=== PATIENT | female | born 1975 | race African-American/Black ===

== ENCOUNTER 2019-09-10 15:39 | Observation (INO) | payer MEDICARE, OTHER ==
[~2019-09-10] VITALS: Ht 170.2 cm; Wt 105.7 kg
[2019-09-10] MEDS ORDERED: ONDANSETRON HCL INJ 2MG/ML 2ML 2 MG/ML VIAL IV NR (17:00)
[2019-09-10] MEDS ORDERED: MORPHINE SULFATE 2 MG/ML SYR 1ML IV NR (17:00)
--- NOTE | 2019-09-10 17:13 | Emergency Department Note ---
History of Present Illnes History of Present Illness Chief Complaint: Extremity Trauma/Pain History of Present Illness This is a 43 year old female c/o weakness then mechanical fall tripped over threshold going outside, pt reports falling on L knee, hit patella on concrete. Pt reports missed dialysis yesterday, c/o mild SOB Historian: Patient, [place] Chief/EMS Arrival Mode: [facility] Treatment CHIEF CLINICAL DIETITIAN: O2 Onset (how long ago): hour(s) (1) Location: left knee Quality: pain Radiation: non-radiation Severity: severe Onset quality: sudden Timing of current episode: constant Progression: unchanged Chronicity: new Context: recent illness Relieving factors: none Exacerbating factors: movement Associated symptoms: denies other symptoms, shortness of breath (mild) Treatments prior to arrival: none (STEFF KEN MD) Past Medical/Family History Physician Review I have reviewed the patient's past medical and family history. Any updates have been documented here. (STEFF KEN MD) Past Medical History Recent Fever: No Clinical Suspicion of Infectio: No New/Unexplained Change in Ment: No Past Medical History: Hypertension, ESRD Other Medical History: neuropathy Past Surgical History: Cholecysctectomy, , Hernia Repair Other Surgery: R BKA amputation (STEFF KEN MD) Social History Smoking Cessation: Never Smoker Counseling Performed: No Alcohol Use: None Any Illegal Drug Use: No TB Exposure/Symptoms: No Physically hurt or threatened: No (STEFF KEN MD) Family History Family history of heart diseas: No (STEFF KEN MD) Other Any Pre-Existing Lines (PICC,: No (STEFF KEN MD) Review of Systems Review of Systems Constitutional: no symptoms EENTM: no symptoms Cardiovascular: no symptoms Respiratory: dyspnea (mild) Gastrointestinal: no symptoms Genitourinary: no symptoms Musculoskeletal: joint pain (left knee, left ankle) Neurological: no symptoms Psychological: no symptoms Endocrine: no symptoms Hematological/Lymphatic: no symptoms Review of other systems All other systems reviewed and negative. (STEFF KEN MD) Physical Exam Related Data Allergies: Coded Allergies: acetaminophen (Verified Allergy, Unknown, 09/10/19) ondansetron (Verified Allergy, Unknown, 09/10/19) tramadol (Verified Allergy, Unknown, 09/10/19) Triage Vital Signs Vital Signs Date Time Temp Pulse Resp B/P (MAP) Pulse Ox O2 Delivery O2 Flow Rate FiO2 09/10/19 15:52 98.5 102 20 180/94 97 (STEFF KEN MD) Physical Exam CONSTITUTIONAL Constitutional: well-developed, well-nourished HENT HENT: normocephalic, atraumatic, oropharynx clear/moist, nose normal HENT L/R: left ext ear normal, right ext ear normal EYES Eyes: PERRL, conjunctivae normal NECK Neck: ROM normal PULMONARY Pulmonary: effort normal, rales (mild bibasilar) CARDIOVASCULAR Cardiovascular: regular rhythm, heart sounds normal, capillary refill normal, normal rate GASTROINTESTINAL Abdominal: soft, nontender, bowel sounds normal GENITOURINARY Genitourinary: exam deferred SKIN Skin: warm, dry MUSCULOSKELETAL Musculoskeletal: tenderness (severe left knee), swelling (mild left knee) NEUROLOGICAL Neurological: alert, oriented x 3, no gross motor or sensory deficits PSYCHOLOGICAL Psychological: mood/affect normal, judgement normal (STEFF KEN MD) Results Laboratory Lab results reviewed: Yes Laboratory comments Laboratory Tests Test 09/10/19 18:33 09/10/19 18:14 Prothrombin Time 13.3 seconds (11.9-14.5) Prothromb Time International Ratio 0.96 Activated Partial Thromboplast Time 30.9 seconds (23.8-35.5) White Blood Count 9.93 x10e3/uL (4.8-10.8) Red Blood Count 2.94 x10e6/uL (3.6-5.1) Hemoglobin 9.3 g/dL (12.0-16.0) Hematocrit 30.2 % (34.2-44.1) Mean Corpuscular Volume 102.7 fL (81-99) Mean Corpuscular Hemoglobin 31.6 pg (28-32) Mean Corpuscular Hemoglobin Concent 30.8 g/dL (31-35) Red Cell Distribution Width 16.8 % (11.7-14.4) Platelet Count 326 x10e3/uL (140-360) Neutrophils (%) (Auto) 67.0 % (38.7-80.0) Lymphocytes (%) (Auto) 22.6 % (18.0-39.1) Monocytes (%) (Auto) 6.3 % (4.4-11.3) Eosinophils (%) (Auto) 3.1 % (0.0-6.0) Basophils (%) (Auto) 0.6 % (0.0-1.0) Neutrophils # (Auto) 6.7 (2.1-6.9) Lymphocytes # (Auto) 2.2 (1.0-3.2) Monocytes # (Auto) 0.6 (0.2-0.8) Eosinophils # (Auto) 0.3 (0.0-0.4) Basophils # (Auto) 0.1 (0.0-0.1) Absolute Immature Granulocyte (auto 0.04 x10e3/uL (0-0.1) (STEFF KEN MD) Imaging Imaging results reviewed: Yes Impressions Exam: Tibia/fibula views History: Weakness, status post fall, lower leg pain Comparison: None. Findings: There is normal bone mineralization. No acute, displaced fracture or dislocation. Minimal degenerative changes left knee. Vascular calcifications are noted. No soft tissue swelling. Impression: 1. No acute abnormalities. Signed by: Dr. Gibson Mcgill M.D. on 09/10/2019 5:41 PM Exam: Left Knee Series. History: Weakness, status post fall Comparison: None. Findings: 3 views of the left knee. There is normal bone mineralization. Negative for acute, displaced fracture or dislocation. Minimal degenerative changes in the left knee, with presence of small marginal patellar osteophytes. Vascular calcifications. Small to moderate suprapatellar effusion Impression: 1. Small to moderate suprapatellar effusion. No underlying acute bony abnormality. Signed by: Dr. Gibson Mcgill M.D. on 09/10/2019 5:42 PM Examination: Single AP view of the chest. COMPARISON: None. INDICATION: Weakness, status post fall IMPRESSION: 1. Lines and Tubes: None 2. Lungs are well-inflated. Minimal perihilar interstitial prominence, likely reflecting minimal interstitial edema/fluid overload. Minimal linear atelectatic changes in the left base. No consolidation or effusion. 3. Enlarged cardiac silhouette. Central pulmonary venous congestion. 4. No acute bony abnormalities. Signed by: Dr. Gibson Mcgill M.D. on 09/10/2019 5:44 PM Exam: Left Ankle Series. History: Weakness, status post fall Comparison: None. DISCUSSION: 3 views of the left ankle. There is normal bone mineralization. No evidence of acute, displaced fracture or dislocation. Ankle mortise is preserved.No osteochondral lesion. Vascular calcifications. Moderate soft tissue swelling surrounding the ankle. IMPRESSION: 1. Moderate soft tissue swelling in the ankle, without underlying acute bony abnormality. 2. Vascular calcifications The staff physician below has personally reviewed this exam on the date of dictation. Signed by: Dr. Gibson Mcgill M.D. on 09/10/2019 5:43 PM (STEFF KEN MD) Diagnostics Tests Diagnostic test(s) reviewed: Yes (STEFF KEN MD) Procedures 12 Lead ECG Interpretation Fire Equipment Inspector Helper: Interpreted by ED physician Date: September 10, 2019 Time: 16:49 Prior CUSTOMER CONTACT REPRESENTATIVE tracings: reviewed Rhythm: sinus rhythm Rate: normal (99) QRS axis: normal ST segments normal: Yes T wave depression: I, aVL Other findings: early repolarization, LVH with strain Clinical Impression: abnormal ECG (STEFF KEN MD) Critical Care Time Subsequent provider I assumed direction of critical care for this patient from another provider of my specialty. (STEFF KEN MD) Assessment & Plan Reassessment Reassessment Pt re-evaluated after sign out obtained from Dr. Ken. Pt's K noted to be 6.2- calcium gluconate, bicarb and Kayexalate given. Pt requires urgent dialysis- Dr. Joy consulted- stat dialysis ordered Pt admitted to Dr. Joshi's service for observation. (SIMBA MAYERS, DO) Assessment & Plan Final Impression: (1) Fall (2) Knee contusion (3) ESRD (end stage renal disease) on dialysis (4) Hyperkalemia Assessment & Plan ADMIT (STEFF KEN MD) Depart Disposition: ADMITTED Last Vital Signs Date Time Temp Pulse Resp B/P (MAP) Pulse Ox O2 Delivery O2 Flow Rate FiO2 09/10/19 15:52 98.5 102 20 180/94 97 (STEFF KEN MD) Medications in the ED Morphine Sulfate 4 mg ONCE IV ; Start 09/10/19 at 17:00; Stop 09/10/19 at 18:59; Status UNV Ondansetron HCl 4 mg ONCE STAT IV ; Start 09/10/19 at 16:32; Stop 09/10/19 at 16:33; Status UNV (STEFF KEN MD) Physician Attestation Provider Attestation REPORT TO ONCOMING ER MD, DR MAYERS, WHO ASSUMED CARE. CHEMISTRIES STILL PENDING, UA, AND UDS (STEFF KEN MD) STEFF KEN MD September 10, 2019 17:12 SIMBA MAYERS DO September 10, 2019 19:59
--- NOTE | 2019-09-10 17:44 | Diagnostic Imaging Report ---
Exam: Tibia/fibula views History: Weakness, status post fall, lower leg pain Comparison: None. Findings: There is normal bone mineralization. No acute, displaced fracture or dislocation. Minimal degenerative changes left knee. Vascular calcifications are noted. No soft tissue swelling. Impression: 1. No acute abnormalities. Signed by: Dr. Gibson Mcgill M.D. on 09/10/2019 5:41 PM
--- NOTE | 2019-09-10 17:46 | Diagnostic Imaging Report ---
Exam: Left Knee Series. History: Weakness, status post fall Comparison: None. Findings: 3 views of the left knee. There is normal bone mineralization. Negative for acute, displaced fracture or dislocation. Minimal degenerative changes in the left knee, with presence of small marginal patellar osteophytes. Vascular calcifications. Small to moderate suprapatellar effusion Impression: 1. Small to moderate suprapatellar effusion. No underlying acute bony abnormality. Signed by: Dr. Gibson Mcgill M.D. on 09/10/2019 5:42 PM
--- NOTE | 2019-09-10 17:47 | Diagnostic Imaging Report ---
Exam: Left Ankle Series. History: Weakness, status post fall Comparison: None. DISCUSSION: 3 views of the left ankle. There is normal bone mineralization. No evidence of acute, displaced fracture or dislocation. Ankle mortise is preserved.No osteochondral lesion. Vascular calcifications. Moderate soft tissue swelling surrounding the ankle. IMPRESSION: 1. Moderate soft tissue swelling in the ankle, without underlying acute bony abnormality. 2. Vascular calcifications The staff physician below has personally reviewed this exam on the date of dictation. Signed by: Dr. Gibson Mcgill M.D. on 09/10/2019 5:43 PM
--- NOTE | 2019-09-10 17:48 | Diagnostic Imaging Report ---
Examination: Single AP view of the chest. COMPARISON: None. INDICATION: Weakness, status post fall IMPRESSION: 1. Lines and Tubes: None 2. Lungs are well-inflated. Minimal perihilar interstitial prominence, likely reflecting minimal interstitial edema/fluid overload. Minimal linear atelectatic changes in the left base. No consolidation or effusion. 3. Enlarged cardiac silhouette. Central pulmonary venous congestion. 4. No acute bony abnormalities. Signed by: Dr. Gibson Mcgill M.D. on 09/10/2019 5:44 PM
[2019-09-10 18:25] LABS: BASOPHILS # (AUTO) 0.1 (0.0-0.1); BASOPHILS % 0.6 % (0.0-1.0); EOSINOPHILS # (AUTO) 0.3 (0.0-0.4); EOSINOPHILS % 3.1 % (0.0-6.0); HEMATOCRIT 30.2 % (34.2-44.1); HEMOGLOBIN 9.3 g/dL (12.0-16.0); LYMPHOCYTES # (AUTO) 2.2 (1.0-3.2); LYMPHOCYTES % 22.6 % (18.0-39.1); MEAN CORPUSCULAR HEMOGLOBIN 31.6 pg (28-32); MEAN CORPUSCULAR HGB CONC 30.8 g/dL (31-35); MEAN CORPUSCULAR VOLUME 102.7 fL (81-99); MONOCYTES # (AUTO) 0.6 (0.2-0.8); MONOCYTES % 6.3 % (4.4-11.3); NEUTROPHILS # (AUTO) 6.7 (2.1-6.9); PLATELET COUNT 326 x10e3/uL (140-360); RED BLOOD COUNT 2.94 x10e6/uL (3.6-5.1); RED CELL DISTRIBUTION WIDTH 16.8 % (11.7-14.4)
[2019-09-10] MEDS ORDERED: PROMETHAZINE 12.5MG/ NACL 0.9% 12.5 MG/50 ML BAG IV ONE (18:45)
[2019-09-10] MEDS ORDERED: HYDRALAZINE HCL 20 MG/ML VIAL IV NR (18:45)
[2019-09-10] MEDS ORDERED: KETOROLAC TROMETHAMINE 30 MG/ML VIAL IV NR (18:46)
[2019-09-10] MEDS ORDERED: HYDRALAZINE HCL 20 MG/ML VIAL ONE (18:56)
[2019-09-10 18:58] LABS: INR 0.96; PROTHROMBIN TIME 13.3 seconds (11.9-14.5)
[2019-09-10 18:59] LABS: PARTIAL THROMBOPLASTIN TIME 30.9 seconds (23.8-35.5)
[2019-09-10 19:06] LABS: ALBUMIN 3.5 g/dL (3.5-5.0); ALBUMIN/GLOBULIN RATIO 0.8 (0.8-2.0); ANION GAP 23.2 mmol/L (8-16); CALCIUM 9.7 mg/dL (8.4-10.2); CREATININE, SERUM 12.84 mg/dL (0.57-1.11)
[2019-09-10 19:12] LABS: CREATINE KINASE MB 2.8 ng/mL (0-5.0); POTASSIUM 6.2 mmol/L (3.5-5.1)
--- NOTE | 2019-09-10 19:12 | NUR ---
Critical value given to Dr. Tsai, potassium level is 6.2.
[2019-09-10 19:13] LABS: BILIRUBIN,URINE NEGATIVE (NEGATIVE); CLARITY,URINE SL CLOUDY (CLEAR); COLOR,URINE YELLOW (YELLOW); KETONES,URINE NEGATIVE (NEGATIVE); LEUKOCYTE ESTERASE ,URINE TRACE (NEGATIVE); NITRITE,URINE NEGATIVE (NEGATIVE); PROTEIN,URINE DIPSTICK >=300 (NEGATIVE); URINE UROBILINOGEN 0.2 mg/dL (0.2 - 1)
[2019-09-10 19:14] LABS: AMPHETAMINES SCREEN,URINE NEGATIVE (NEGATIVE); BENZODIAZEPINES SCREEN,URINE NEGATIVE (NEGATIVE); PHENCYCLIDINE SCREEN,URINE NEGATIVE (NEGATIVE)
--- NOTE | 2019-09-10 19:16 | NUR ---
Nursing report given to Aleksandr ZAMORA.
[2019-09-10] MEDS ORDERED: DEXTROSE 50% SYRINGE 50 ML IV STA (19:21)
[2019-09-10 19:24] LABS: BACTERIA,URINE MANY /HPF; EPITHELIAL CELLS,URINE MANY /LPF; TRANSITIONAL EPI CELLS,URINE MODERATE
[2019-09-10] MEDS ORDERED: SODIUM BICARBONATE 8.4% 50 ML VIAL IV NR (19:30)
[2019-09-10] MEDS ORDERED: INSULIN REGULAR, HUMAN 100 UNIT/1 ML 3ML VIAL IV NR (19:30)
[2019-09-10] MEDS ORDERED: CALCIUM GLUCONATE 10% INJ 4.65 MEQ in SODIUM CHLORIDE 0.9% 50ML 50 ML IV ONE (19:30)
[2019-09-10] MEDS ORDERED: SODIUM BICARBONATE 8.4% INJ 50 ML SYR IV NR (19:45)
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
--- OUTSIDE RECORDS SUMMARY | 2019-09-10 20:01 | XMS REPORT | Clinical Summary ---
Author Author [facility] Organization [facility] Address Unknown Phone Unavailable Care Team Providers Care Storyboard Artist Name Role Phone Asked, No Pcp PCP Unavailable Allergies Comments Active Allergy Reactions Severity Noted Date No Known Allergies 03/02/2015 VOMITTING ACCORDING TP PATIENT Hydrocodone-Acetaminophen Other (See Medium 08/22 Comments) Medications End Date Status Medication Sig Dispensed Refills Start Date Active carvedilol (COREG) 25 MG Take 25 mg by 0 tablet mouth 2 (two) times a day with meals. Active FLUoxetine (PROzac) 20 MG Take 20 mg by 0 capsule mouth daily. Active furosemide (LASIX) 80 mg Take 80 mg by 0 tablet mouth 2 (two) times a day. Active hydrALAZINE (APRESOLINE) Take 50 mg by 0 50 MG tablet mouth 3 (three) times a day. Hold if SBP < 100 Active lisinopril Take 40 mg by 0 (PRINIVIL,ZESTRIL) 40 mg mouth daily. tablet Active metoclopramide (REGLAN) Take 10 mg by 0 10 MG tablet mouth 3 (three) times a day before meals. Active pantoprazole (PROTONIX) Take 40 mg by 0 40 MG EC tablet mouth daily. Active apixaban (ELIQUIS) 5 mg Take 5 mg by 0 tablet mouth 2 (two) times a day. Active gabapentin (NEURONTIN) Take 200 mg 0 100 mg capsule by mouth 3 (three) times a day as needed. Active famotidine (PEPCID) 20 MG Take 20 mg by 0 tablet mouth 2 (two) times a day. Active HYDROcodone-acetaminophen Take 1 tablet 0 (NORCO) 10-325 mg per by mouth tablet every 6 (six) hours as needed for moderate pain. Active Problems Problem Noted Date Acute respiratory distress 10/07/2017 ESRD (end stage renal disease) 06/20/2017 Hypertensive emergency 04/18/2017 HTN (hypertension), malignant 03/30/2017 Leukocytosis 03/27/2017 Fever 03/27/2017 ESRD on hemodialysis 03/27/2017 Gastroparesis 03/27/2017 Hx of BKA, right 03/27/2017 Chronic diastolic congestive heart failure 7 Chest pain 03/27/2017 Type 2 diabetes mellitus 03/27/2017 Acute respiratory insufficiency 03/27/2017 Overview: hypoxemic Abdominal pain 03/18/2017 Calculus of gallbladder without cholecystitis without obstruction 02/26/2017 Heart failure with preserved left ventricular functio n (HFpEF) 02/26/2017 Overview: Diastolic heart failure diagnosed by ec hocardiogram on 01/25/2017 Noncompliance with medication regimen 02/26/2017 Mixed hyperlipidemia 02/26/2017 Normocytic anemia 02/26/2017 Periumbilical hernia 02/26/2017 Prolonged Q-T interval on ECG 02/26/2017 Diabetic nephropathy associated with type 2 diabetes mellitus 02/26/2017 Hx of right BKA 02/26/2017 CKD (chronic kidney disease) stage 4, GFR 15-29 ml/mi n 02/26/2017 Class 2 obesity due to excess calories with serious c omorbidity in adult 02/25/2017 Gastroparesis due to DM 02/21/2017 Hypertensive urgency 02/21/2017 End stage renal disease 02/06/2017 Overview: Added automatically from request for katy gaston [id number] Respiratory distress 01/25/2017 Essential hypertension 10/28/2016 Diabetic foot infection 10/28/2016 Generalized abdominal pain 10/28/2016 ALDO (acute kidney injury) 07/23/2016 Homelessness 03/02/2015 Overview: Overview: resident at [facility] 03/02/2015 Social History Date Tobacco Use Types Packs/Day Years Used Never Smoker Smokeless Tobacco: Never Used Drinks/Week oz/Week Comments Alcohol Use No Sex Assigned at Date Recorded Not on file Industry Job Start Date Occupation Not on file Not on file Not on file Travel End Travel History Travel Start No recent travel history available. Last Filed Vital Signs Not on file Plan of Treatment Health Maintenance Due Date Last Done Comments DIABETIC RETINAL EYE EXAM 1973 DIABETIC FOOT EXAM 10/15/1983 CERVICAL CANCER SCREENING 1994 INFLUENZA VACCINE 11/23/2019 Implants Device Identifier Shelf Expiration Date Model / Serial / L ot Implanted Type Area Manufactur er 10/21/2018 [id number] / / [id number] Catheter Dialysis Glidepath Implantabl N/A: N/A BA RD [id number] Symmetric Tip - e Infusion PERIPHERAL [id number] Ports or VASCULAR Implanted: 01/27/2017 at [facility] (Quantity not on file) s 10/21/2018 [id number] / / [id number] Catheter Dialysis Glidepath Implantabl N/A: N/A RD [id number] Symmetric Tip - e Infusion PERIPHERAL [id number] Ports or VASCULAR Implanted: 03/31/2017 at [facility] (Quantity not on file) s 01/01/2022 [id number] / / [id number] Clip Ligtng Weck Hemoclip Plus W/ Medical Left: Arm, WECK Tape Ti Sm - [id number] Clips for Upper CLOSUR E Implanted: Qty: 1 on 07/18/2017 by Internal SYS Kenya Kirkland MD at [facility] Use 12/27/2021 [id number] / / [id number] Clip Ligtng Weck Hemoclip Plus W/ Medical Left: Arm, TELEFLEX Tape Ti Med - [id number] Clips for Upper MEDIC AL Implanted: Qty: 1 on 07/18/2017 by Internal Kenya Cho MD at [facility] Use Results Not on fileafter 09/09/2018 Insurance Type Payer Benefit Subscriber ID Effective Phone Address Plan / Dates Group Medicare MEDICARE MEDICARE xxxxxxxxxx 2017-P [place] B Medicaid MEDICAID MEDICAID xxxxxxxxx 2017- Present Guarantor Name Account Relation to Date of Phone Billin g Address Type Patient Meena Hernandez Personal/F Self [phone] amily (Home) [place] [address] Advance Directives For more information, please contact: [phone] Patient Health Promotion Educator Explanation Type Date Recorded Advance Directives, 02/25/2017 1:57 PM Living Will and Medical Power of Dough Sheeter Date Inactivated Comments Code Status Date Activated 09/09/2017 6:02 PM Full Code 09/04/2017 8:56 PM Code Status decision reached by: Patient 07/21/2017 6:01 PM Full Code 07/20/2017 4:17 PM Code Status decision reached by: Patient 03/29/2017 6:30 PM Full Code 03/27/2017 1:50 AM Code Status decision reached by: Patient
--- OUTSIDE RECORDS SUMMARY | 2019-09-10 20:01 | XMS REPORT | Clinical Summary ---
Author Author [facility] Address Unknown Phone Unavailable Care Team Providers Care Postbed Stitcher Name Role Phone PCP Unavailable Allergies Not on File Medications Not on file Active Problems Not on file Social History Date Tobacco Use Types Packs/Day Years Used Never Smoker Sex Assigned at Date Recorded Not on file Industry Job Start Date Occupation Not on file Not on file Not on file Travel End Travel History Travel Start No recent travel history available. Last Filed Vital Signs Not on file Plan of Treatment Not on file Results Not on fileafter 09/09/2018 Insurance Payer Benefit Subscriber ID Type Phone Address Plan / Group MEDICARE MEDICARE A xxxxxxxxxx Medicare B MEDICAID MEDICAID xxxxxxxxx Medicaid OF [place]
--- OUTSIDE RECORDS SUMMARY | 2019-09-10 20:09 | XMS REPORT | Summary of Care ---
Author Author [facility] Organization [facility] Address Unknown Phone Unavailable Encounter PRIMITIVO Mariano(SANGITA) [id number] Date(s): 10/10/16 - 10/12/16 [facility] [address] [employer] provided by [facility] [employer] [facility] [place] [address]- Discharge Disposition: Left Against Medical Advise Attending Physician: Richard Aguilar MD Admitting Physician: Kayla Pacheco MD Vital Signs 1 2 3 Most recent to oldest [Reference Range]: 97.5 DegF (10/12/16 7:45 AM) 97.4 DegF (10/12/16 4:15 AM) 97.5 DegF (10/12/16 12:10 AM) Temperature Oral [96.4-99.1 DegF] 161/80 mmHg *HI* (10/12/16 7:45 AM) 181/99 mmHg *HI* (10/12/16 5:00 AM) 162/83 mmHg *HI* (10/12/16 4:00 AM) Blood Pressure [90-140/60-90 mmHg] 18 BRMIN (10/12/16 7:45 AM) 16 BRMIN (10/12/16 5:00 AM) 17 BRMIN (10/12/16 4:00 AM) Respiratory Rate [14-20 BRMIN] 124 bpm *HI* (10/10/16 11:22 PM) Peripheral Pulse Rate [60-100 bpm] 109 kg (10/12/16 7:01 AM) Weight Problem List Condition Effective Dates Status Health Status Informan t Anxiety(Confirmed) Resolved CHF - Congestive 08/31/09 Active heart failure(Confirmed) Chronic Resolved depression(Confirmed ) CKD (chronic kidney 09/01/15 Resolved disease)(Confirmed) Diabetes Resolved mellitus(Confirmed) DM (diabetes 08/31/09 - 09/07/16 Resolved mellitus)(Confirmed) Escherichia 09/15/16 Active coli(Confirmed)1, 2 Biliary < 08/16/16 Resolved colic(Confirmed) Below knee Active amputation status(Confirmed)3 HTN - 08/31/09 - 09/07/16 Resolved Hypertension(Confirm ed) HLD Resolved (hyperlipidemia)(Con firmed) Hypertension(Confirm Resolved ed) Klebsiella(Confirmed 03/26/16 Active )4, 5 MRSA(Confirmed)6, 7, 02/23/16 Active 8 MRSA(Confirmed)9, 10 11/29/13 Active 1E.coli, 09/15/2016 2Problem added by Discern Expert. 3Right sided BKA 4Blood, 03/29/2016 5Problem added by Discern Expert. 6right foot aspirate - 02/23/16 7nares - 02/19/16 8Problem added by Discern Expert. 9Left buttock abscess, 11/29/2013 10Problem added by Discern Expert. Allergies, Adverse Reactions, Alerts Substance Reaction Severity Status NKDA Active Medications carvedilol 25 mg, 1 tab, Route: PO, Drug form: TAB, Q12H, Dosing Weight 109.545, kg, Start date: 10/11/16 21:00:00 CDT, Duration: 30 day, Stop date: 11/10/16 9:00:00 CDT Notes: Give with food. (Same As: Coreg) Start Date: 10/11/16 Stop Date: 10/12/16 Status: Discontinued cloNIDine 0.2 mg oral tablet 0.2 mg, 1 tab, Route: PO, Drug form: TAB, ONCE, Dosing Weight 109.545, kg, Prior ity: STAT, Start date: 10/11/16 4:35:00 CDT, Stop date: 10/11/16 4:35:00 CDT Notes: (Same As: Catapres) Start Date: 10/11/16 Stop Date: 10/11/16 Status: Completed Coreg 25 mg, 1 tab, Route: PO, Drug form: TAB, ONCE, Dosing Weight 109.545, kg, Start date: 10/11/16 7:23:00 CDT, Stop date: 10/11/16 7:23:00 CDT Notes: Give with food. (Same As: Coreg) Start Date: 10/11/16 Stop Date: 10/11/16 Status: Completed Coreg 25 mg, 1 tab, Route: PO, Drug form: TAB, ONCE, Dosing Weight 109.545, kg, Start date: 10/11/16 2:08:00 CDT, Stop date: 10/11/16 2:08:00 CDT Notes: Give with food. (Same As: Coreg) Start Date: 10/11/16 Stop Date: 10/11/16 Status: Completed Dextrose 50% Syringe 25 gm, 50 mL, Route: IVP, Drug Form: INJ, Dosing Weight 109.545, kg, PRN, PRN Bl ood Glucose Results, Start date: 10/11/16 9:37:00 CDT, Duration: 30 day, Stop da te: 11/10/16 9:36:00 CDT Start Date: 10/11/16 Stop Date: 10/12/16 Status: Discontinued Dextrose 50% Syringe 12.5 gm, 25 mL, Route: IVP, Drug Form: INJ, Dosing Weight 109.545, kg, PRN, PRN Blood Glucose Results, Start date: 10/11/16 9:37:00 CDT, Duration: 30 day, Stop date: 11/10/16 9:36:00 CDT Start Date: 10/11/16 Stop Date: 10/12/16 Status: Discontinued glucagon 1 mg, Route: IM, Drug form: PDR/INJ, PRN, Dosing Weight 109.545, kg, PRN Blood G lucose Results, Start date: 10/11/16 9:37:00 CDT, Duration: 30 day, Stop date: 0 11/10/16 9:36:00 CDT Start Date: 10/11/16 Stop Date: 10/12/16 Status: Discontinued Haldol 5 mg, 1 mL, Route: IV, Drug form: INJ, ONCE, Dosing Weight 109.545, kg, Priority : STAT, Start date: 10/11/16 0:09:00 CDT, Stop date: 10/11/16 0:09:00 CDT Notes: (Same as: Haldol) Start Date: 10/11/16 Stop Date: 10/11/16 Status: Completed Haldol 5 mg, Route: IV, ONCE, Dosing Weight 109.545, kg, Start date: 10/11/16 0:58:00 C DT, Stop date: 10/11/16 0:58:00 CDT Start Date: 10/11/16 Stop Date: 10/11/16 Status: Completed Haldol 5 mg, Route: IM, ONCE, Dosing Weight 109.545, kg, Priority: STAT, Start date: 0:57:00 CDT, Stop date: 10/11/16 0:57:00 CDT Start Date: 10/11/16 Stop Date: 10/11/16 Status: Discontinued heparin 5000 units/mL injectable solution 5,000 unit, 1 mL, Route: SUB-Q, Drug form: INJ, Q8H, Dosing Weight 109.545, kg, Start date: 10/12/16 0:00:00 CDT, Duration: 30 day, Stop date: 11/10/16 16:00:00 CDT Notes: porcine heparin Start Date: 10/12/16 Stop Date: 10/12/16 Status: Discontinued hydromorphone 1 mg, 0.5 mL, Route: IVP, Drug form: INJ, ONCE, Dosing Weight 109.545, kg, Prior ity: STAT, Start date: 10/11/16 1:58:00 CDT, Stop date: 10/11/16 1:58:00 CDT Notes: Same as: Dilaudid Start Date: 10/11/16 Stop Date: 10/11/16 Status: Completed Insulin regular 5 unit, 0.05 mL, Route: SUB-Q, Drug form: SOLN, Sliding Scale, Dosing Weight 109 .545, kg, PRN Blood Glucose Results, Start date: 10/11/16 12:48:00 CDT, Duration : 30 day, Stop date: 11/10/16 12:47:00 CDT Notes: (Same as: Humulin R) Roll in palms of hands gently; Do not shake vigorou sly. "single patient use only"(Restricted to patients requiring a dose > 60 units)WASTE: F/P - Black; E - Municipal Trash Bin Stable for 28 days at room temperatureExpires in days from Date Start Date: 10/11/16 Stop Date: 10/12/16 Status: Discontinued Insulin regular 2 unit, 0.02 mL, Route: SUB-Q, Drug form: SOLN, Sliding Scale, Dosing Weight 109 .545, kg, PRN Blood Glucose Results, Start date: 10/11/16 12:48:00 CDT, Duration : 30 day, Stop date: 11/10/16 12:47:00 CDT Notes: (Same as: Humulin R) Roll in palms of hands gently; Do not shake vigorou sly. "single patient use only"(Restricted to patients requiring a dose > 60 units)WASTE: F/P - Black; E - Municipal Trash Bin Stable for 28 days at room temperatureExpires in days from Date Start Date: 10/11/16 Stop Date: 10/12/16 Status: Discontinued Insulin regular 4 unit, 0.04 mL, Route: SUB-Q, Drug form: SOLN, Sliding Scale, Dosing Weight 109 .545, kg, PRN Blood Glucose Results, Start date: 10/11/16 12:48:00 CDT, Duration : 30 day, Stop date: 11/10/16 12:47:00 CDT Notes: (Same as: Humulin R) Roll in palms of hands gently; Do not shake vigorou sly. "single patient use only"(Restricted to patients requiring a dose > 60 units)WASTE: F/P - Black; E - Municipal Trash Bin Stable for 28 days at room temperatureExpires in days from Date Start Date: 10/11/16 Stop Date: 10/12/16 Status: Discontinued Insulin regular 1 unit, 0.01 mL, Route: SUB-Q, Drug form: SOLN, Sliding Scale, Dosing Weight 109 .545, kg, PRN Blood Glucose Results, Start date: 10/11/16 12:48:00 CDT, Duration : 30 day, Stop date: 11/10/16 12:47:00 CDT Notes: (Same as: Humulin R) Roll in palms of hands gently; Do not shake vigorou sly. "single patient use only"(Restricted to patients requiring a dose > 60 units)WASTE: F/P - Black; E - Municipal Trash Bin Stable for 28 days at room temperatureExpires in days from Date Start Date: 10/11/16 Stop Date: 10/12/16 Status: Discontinued Insulin regular 3 unit, 0.03 mL, Route: SUB-Q, Drug form: SOLN, Sliding Scale, Dosing Weight 109 .545, kg, PRN Blood Glucose Results, Start date: 10/11/16 12:48:00 CDT, Duration : 30 day, Stop date: 11/10/16 12:47:00 CDT Notes: (Same as: Humulin R) Roll in palms of hands gently; Do not shake vigorou sly. "single patient use only"(Restricted to patients requiring a dose > 60 units)WASTE: F/P - Black; E - Municipal Trash Bin Stable for 28 days at room temperatureExpires in days from Date Start Date: 10/11/16 Stop Date: 10/12/16 Status: Discontinued labetalol 10 mg, Route: IVP, Drug form: INJ, ONCE, Dosing Weight 109.545, kg, Start date: 10/11/16 1:57:00 CDT, Stop date: 10/11/16 1:57:00 CDT Start Date: 10/11/16 Stop Date: 10/11/16 Status: Discontinued labetalol 10 mg, 2 mL, Route: IVP, Drug form: INJ, ONCE, Dosing Weight 109.545, kg, Start date: 10/11/16 4:06:00 CDT, Stop date: 10/11/16 4:06:00 CDT Start Date: 10/11/16 Stop Date: 10/11/16 Status: Completed Lasix 20 mg oral tablet 20 mg, 1 tab, Route: PO, Drug form: TAB, BID, Dosing Weight 109.545, kg, Start d ate: 10/11/16 17:00:00 CDT, Duration: 30 day, Stop date: 11/10/16 9:00:00 CDT Notes: (Same as: Lasix) May cause GI upset. Give with food or milk. Start Date: 10/11/16 Stop Date: 10/12/16 Status: Discontinued Levemir 15 unit, SUB-Q, BID, 0 Refill(s) Start Date: 10/11/16 Stop Date: 10/14/16 Status: Discontinued morphine Sulfate 2 mg, 1 mL, Route: IVP, Drug form: INJ, ONCE, Dosing Weight 109, kg, Start date: 10/12/16 7:18:00 CDT, Stop date: 10/12/16 7:18:00 CDT Notes: (Same as:MORPhine Sulfate) Start Date: 10/12/16 Stop Date: 10/12/16 Status: Completed morphine Sulfate 4 mg, 1 mL, Route: IVP, Drug form: INJ, ONCE, Dosing Weight 109.545, kg, Priorit y: STAT, Start date: 10/10/16 23:36:00 CDT, Stop date: 10/10/16 23:36:00 CDT Notes: (Same as:MORPhine Sulfate) Start Date: 10/10/16 Stop Date: 10/11/16 Status: Completed morphine Sulfate 4 mg, 1 mL, Route: IVP, Drug form: INJ, ONCE, Dosing Weight 109.545, kg, Priorit y: STAT, Start date: 10/11/16 0:50:00 CDT, Stop date: 10/11/16 0:50:00 CDT Notes: (Same as:MORPhine Sulfate) Start Date: 10/11/16 Stop Date: 10/11/16 Status: Completed morphine Sulfate 2 mg, 1 mL, Route: IVP, Drug form: INJ, ONCE, Dosing Weight 109.545, kg, Start d ate: 10/11/16 16:02:00 CDT, Stop date: 10/11/16 16:02:00 CDT Notes: (Same as:MORPhine Sulfate) Start Date: 10/11/16 Stop Date: 10/11/16 Status: Completed niCARdipine 40 mg 40 mg, 200 mL, Rate: Titrate, Start Dose: 5 mg/hr, Titration: 2.5 mg/hr every 15 minutes, Goal(s): systolic <200, Max Dose: 15 mg/hr, Route: IV, Dosing Weight 109.545 kg, Total Volume: 200, Start date: 10/11/16 2:05:00 CDT, Duration: 30 day, Stop date... Start Date: 10/11/16 Stop Date: 10/11/16 Status: Discontinued NIFEdipine 90 mg oral tablet, extended release 90 mg, 1 tab, Route: PO, Drug form: ERTAB, ONCE, Dosing Weight 109.545, kg, Star t date: 10/11/16 2:09:00 CDT, Stop date: 10/11/16 2:09:00 CDT Notes: (Same as: Adalat CC,Procardia XL)"Do Not Crush" "Avoid grapefruit and gr apefruit juice" Start Date: 10/11/16 Stop Date: 10/11/16 Status: Completed NIFEdipine 90 mg oral tablet, extended release 90 mg, 1 tab, Route: PO, Drug form: ERTAB, Daily, Dosing Weight 109, kg, Start d ate: 10/12/16 7:44:00 CDT, Duration: 30 day, Stop date: 11/10/16 9:00:00 CDT Notes: (Same as: Adalat CC,Procardia XL)"Do Not Crush" "Avoid grapefruit and gr apefruit juice" Start Date: 10/12/16 Stop Date: 10/12/16 Status: Discontinued nitroglycerin 2% ointment 1 inch, Route: TOP, Drug Form: OINT, Dosing Weight 109.545, kg, ONCE, STAT, Star t date: 10/11/16 4:58:00 CDT, Stop date: 10/11/16 4:58:00 CDT Start Date: 10/11/16 Stop Date: 10/11/16 Status: Completed ondansetron 4 mg, 2 mL, Route: IVP, Drug form: INJ, ONCE, Dosing Weight 109.545, kg, Priorit y: STAT, Start date: 10/10/16 23:36:00 CDT, Stop date: 10/10/16 23:36:00 CDT Notes: (Same as: Simonean) MEDICATION WASTE Product Size: 4 mgProduct Was savana: 0 mg Start Date: 10/10/16 Stop Date: 10/11/16 Status: Completed Reglan 10 mg, 2 mL, Route: IVP, Drug form: INJ, ONCE, Dosing Weight 109.545, kg, Priori ty: STAT, Start date: 10/11/16 1:26:00 CDT, Stop date: 10/11/16 1:26:00 CDT Notes: (Same as: Reglan) Start Date: 10/11/16 Stop Date: 10/11/16 Status: Completed Saline Flush 0.9% 10 ml, Route: IVP, Drug Form: INJ, Dosing Weight 109.545, kg, PRN, PRN Line Flus h, Start date: 10/11/16 9:34:00 CDT, Duration: 30 day, Stop date: 11/10/16 9:33: 00 CDT Notes: (Same as: BD Posiflush) Start Date: 10/11/16 Stop Date: 10/12/16 Status: Discontinued sertraline 100 mg, 1 tab, Route: PO, Drug form: TAB, Daily, Dosing Weight 109.545, kg, Star t date: 10/12/16 9:00:00 CDT, Duration: 30 day, Stop date: 11/10/16 9:00:00 CDT Notes: (Same as: Zoloft) Start Date: 10/12/16 Stop Date: 10/12/16 Status: Discontinued Sodium Chloride 0.9% (Bolus) IV 1,000 mL, 1000 ml/hr, Infuse Over: 1 hr, Route: IV, 1,000, Drug form: INJ, ONCE, Priority: STAT, Dosing Weight 109.545 kg, Start date: 10/10/16 23:36:00 CDT, Du ration: 1 doses or times, Stop date: 10/10/16 23:36:00 CDT Start Date: 10/10/16 Stop Date: 10/11/16 Status: Completed sodium chloride 0.9% 1000 ml INJ 1,000 mL 1,000 mL, Rate: 75 ml/hr, Infuse over: 13.3 hr, Route: IV, Dosing Weight 109.545 kg, Total Volume: 1,000, Start date: 10/11/16 7:34:00 CDT, Duration: 30 day, St op date: 11/10/16 7:33:00 CDT Start Date: 10/11/16 Stop Date: 10/11/16 Status: Discontinued sodium chloride 0.9% 1000 ml INJ 3,000 mL 3,000 mL, Rate: 75 ml/hr, Infuse over: 40 hr, Route: IV, Dosing Weight 109.545 k g, Total Volume: 3,000, Start date: 10/11/16 14:49:00 CDT, Duration: 30 day, Sto p date: 11/10/16 14:48:00 CDT Start Date: 10/11/16 Stop Date: 10/12/16 Status: Discontinued tramadol 50 mg oral tablet 50 mg, 1 tab, Route: PO, Drug form: TAB, Q4H, Dosing Weight 109.545, kg, PRN Katherine n Score 1-3, Start date: 10/11/16 10:19:00 CDT, Duration: 30 day, Stop date: 10:18:00 CDT Notes: Not to exceed 400mg/day. (Same As: Ultram) Start Date: 10/11/16 Stop Date: 10/12/16 Status: Discontinued Tylenol with Codeine #3 oral tablet 1 tab, Route: PO, Drug Form: TAB, Dosing Weight 109, kg, Q4H, PRN Other -See Com ment, Start date: 10/12/16 9:13:00 CDT, Duration: 30 day, Stop date: 11/11/16 9: 12:00 CDT, Pain > 4/10 Notes: Do not exceed 4gm/day of acetaminophen. (Same as: Tylenol with Codeine # 3) Start Date: 10/12/16 Stop Date: 10/12/16 Status: Discontinued Results ELECTROLYTES 1 2 3 Most recent to oldest [Reference Range]: 147 mEq/L *HI* (10/12/16 3:09 AM) 145 mEq/L (10/11/16 8:09 AM) 142 mEq/L (10/10/16 11:37 PM) Sodium Lvl [135-145 mEq/L] 4.0 mEq/L (10/12/16 3:09 AM) 4.0 mEq/L (10/11/16 8:09 AM) 3.8 mEq/L (10/10/16 11:37 PM) Potassium Lvl [3.5-5.1 mEq/L] 120 mEq/L *HI* (10/12/16 3:09 AM) 116 mEq/L *HI* (10/11/16 8:09 AM) 111 mEq/L *HI* (10/10/16 11:37 PM) Chloride Lvl [95-109 mEq/L] 18 mEq/L *LOW* (10/12/16 3:09 AM) 22 mEq/L *LOW* (10/11/16 8:09 AM) 16 mEq/L *LOW* (10/10/16 11:37 PM) CO2 [24-32 mEq/L] 13.0 mEq/L (10/12/16 3:09 AM) 11.0 mEq/L (10/11/16 8:09 AM) 18.8 mEq/L (10/10/16 11:37 PM) AGAP [10.0-20.0 mEq/L] CHEM PANEL 1 2 3 Most recent to oldest [Reference Range]: 2.37 mg/dL *HI* (10/12/16 3:09 AM) 2.47 mg/dL *HI* (10/11/16 8:09 AM) 2.58 mg/dL *HI* (10/10/16 11:37 PM) Creatinine Lvl [0.50-1.40 mg/dL] 25 mL/min/1.73m2 1 *NA* (10/12/16 3:09 AM) 23 mL/min/1.73m2 2 *NA* (10/11/16 8:09 AM) 22 mL/min/1.73m2 3 *NA* (10/10/16 11:37 PM) eGFR 15 mg/dL (10/12/16 3:09 AM) 16 mg/dL (10/11/16 8:09 AM) 16 mg/dL (10/10/16 11:37 PM) BUN [7-22 mg/dL] 6 (10/12/16 3:09 AM) 6 (10/11/16 8:09 AM) B/C Ratio [6-25] 83 mg/dL (10/12/16 3:09 AM) 123 mg/dL *HI* (10/11/16 8:09 AM) 127 mg/dL *HI* (10/10/16 11:37 PM) Glucose Lvl [70-99 mg/dL] 4.9 g/dL *LOW* (10/12/16 3:09 AM) 5.0 g/dL *LOW* (10/11/16 8:09 AM) 7.3 g/dL (10/10/16 11:37 PM) Total Protein [6.4-8.4 g/dL] 1.3 g/dL *LOW* (10/12/16 3:09 AM) 1.4 g/dL *LOW* (10/11/16 8:09 AM) 2.0 g/dL *LOW* (10/10/16 11:37 PM) Albumin Lvl [3.5-5.0 g/dL] 3.6 g/dL (10/12/16 3:09 AM) 3.6 g/dL (10/11/16 8:09 AM) 5.3 g/dL *HI* (10/10/16 11:37 PM) Globulin [2.7-4.2 g/dL] 0.4 *LOW* (10/12/16 3:09 AM) 0.4 *LOW* (10/11/16 8:09 AM) 0.4 *LOW* (10/10/16 11:37 PM) A/G Ratio [0.7-1.6] 7.5 mg/dL *LOW* (10/12/16 3:09 AM) 7.2 mg/dL *LOW* (10/11/16 8:09 AM) 8.4 mg/dL *LOW* (10/10/16 11:37 PM) Calcium Lvl [8.5-10.5 mg/dL] 11 unit/L (10/12/16 3:09 AM) 9 unit/L (10/11/16 8:09 AM) 12 unit/L (10/10/16 11:37 PM) ALT [0-65 unit/L] 15 unit/L (10/12/16 3:09 AM) 11 unit/L (10/11/16 8:09 AM) 17 unit/L (10/10/16 11:37 PM) AST [0-37 unit/L] 88 unit/L (10/12/16 3:09 AM) 86 unit/L (10/11/16 8:09 AM) 123 unit/L (10/10/16 11:37 PM) Alk Phos [39-136 unit/L] <0.1 mg/dL *LOW* (10/12/16 3:09 AM) 0.2 mg/dL (10/11/16 8:09 AM) 0.2 mg/dL (10/10/16 11:37 PM) Bili Total [0.2-1.3 mg/dL] 0.1 mg/dL (10/10/16 11:37 PM) Bili Direct [0.0-0.3 mg/dL] 0.1 mg/dL (10/10/16 11:37 PM) Bili Indirect [0.0-1.0 mg/dL] 4 unit/L *LOW* (10/11/16 8:09 AM) Amylase Lvl [25-115 unit/L] 53 unit/L *LOW* (10/11/16 8:09 AM) 56 unit/L *LOW* (10/11/16 5:59 AM) 90 unit/L (10/10/16 11:37 PM) Lipase Lvl [73-393 unit/L] 1.1 mmol/L (10/10/16 11:37 PM) Lactic Acid WB [0.5-2.2 mmol/L] 1Result Comment: The eGFR is calculated using the CKD-EPI formula. In most young, healthy individuals the eGFR will be >90 mL/min/1.73m2. The eGFR declines with age. An eGFR of 60-89 may be normal in some populations, particularly the elderly, for whom the CKD-EPI formula has not been extensively validated. Use of the eGFR is not recommended in the following populations: Individuals with unstable creatinine concentrations, including patients and those with serious co-morbid conditions. Patients with extremes in muscle mass or diet. The data above are obtained from the National Kidney Disease Education Program ( NKDEP) which additionally recommends that when the eGFR is used in patients with extremes of body mass index for purposes of drug dosing, the eGFR should be mul tiplied by the estimated BMI. 2Result Comment: The eGFR is calculated using the CKD-EPI formula. In most young, healthy individuals the eGFR will be >90 mL/min/1.73m2. The eGFR declines with age. An eGFR of 60-89 may be normal in some populations, particularly the elderly, for whom the CKD-EPI formula has not been extensively validated. Use of the eGFR is not recommended in the following populations: Individuals with unstable creatinine concentrations, including patients and those with serious co-morbid conditions. Patients with extremes in muscle mass or diet. The data above are obtained from the National Kidney Disease Education Program ( NKDEP) which additionally recommends that when the eGFR is used in patients with extremes of body mass index for purposes of drug dosing, the eGFR should be mul tiplied by the estimated BMI. 3Result Comment: The eGFR is calculated using the CKD-EPI formula. In most young, healthy individuals the eGFR will be >90 mL/min/1.73m2. The eGFR declines with age. An eGFR of 60-89 may be normal in some populations, particularly the elderly, for whom the CKD-EPI formula has not been extensively validated. Use of the eGFR is not recommended in the following populations: Individuals with unstable creatinine concentrations, including patients and those with serious co-morbid conditions. Patients with extremes in muscle mass or diet. The data above are obtained from the National Kidney Disease Education Program ( NKDEP) which additionally recommends that when the eGFR is used in patients with extremes of body mass index for purposes of drug dosing, the eGFR should be mul tiplied by the estimated BMI. LIPIDS 1 2 3 Most recent to oldest [Reference Range]: 5.70 (10/11/16 8:09 AM) CHD Risk [3.90-5.80] 211 mg/dL *HI* (10/11/16 8:09 AM) Chol [<=199 mg/dL] 179 mg/dL *HI* (10/11/16 8:09 AM) Trig [<=149 mg/dL] 37 mg/dL *LOW* (10/11/16 8:09 AM) HDL [>=61 mg/dL] 138 mg/dL *HI* (10/11/16 8:09 AM) LDL (Calculated) [<=99 mg/dL] 36 *NA* (10/11/16 8:09 AM) VLDL ANEMIA STUDY 1 2 3 Most recent to oldest [Reference Range]: 177 ng/mL (10/11/16 8:09 AM) Ferritin Lvl [5-204 ng/mL] PARATHYROID PROFILE 1 2 3 Most recent to oldest [Reference Range]: 1.07 mMol/L (10/11/16 8:09 AM) Ca Ion WB [1.05-1.25 mMol/L] 1.06 mMol/L (10/11/16 8:09 AM) Ca Norm WB [1.05-1.25 mMol/L] HEMATOLOGY 1 2 3 Most recent to oldest [Reference Range]: 6.9 K/CMM (10/12/16 3:09 AM) 8.3 K/CMM (10/11/16 8:09 AM) 9.1 K/CMM (10/10/16 11:37 PM) WBC [3.7-10.4 K/CMM] 2.63 M/CMM *LOW* (10/12/16 3:09 AM) 2.48 M/CMM *LOW* (10/11/16 8:09 AM) 3.71 M/CMM *LOW* (10/10/16 11:37 PM) RBC [4.20-5.40 M/CMM] 7.4 g/dL *LOW* (10/12/16 3:09 AM) 8.4 g/dL *LOW* (10/11/16 10:21 AM) 7.0 g/dL 1 *CRIT* (10/11/16 8:09 AM) Hgb [12.0-16.0 g/dL] 22.9 % *LOW* (10/12/16 3:09 AM) 25.6 % *LOW* (10/11/16 10:21 AM) 21.5 % *LOW* (10/11/16 8:09 AM) Hct [36.0-48.0 %] 87.4 fL (10/12/16 3:09 AM) 86.6 fL (10/11/16 8:09 AM) 87.2 fL (10/10/16 11:37 PM) MCV [80.0-98.0 fL] 28.3 pg (10/12/16 3:09 AM) 28.2 pg (10/11/16 8:09 AM) 27.9 pg (10/10/16 11:37 PM) MCH [27.0-31.0 pg] 32.4 g/dL (10/12/16 3:09 AM) 32.6 g/dL (10/11/16 8:09 AM) 32.0 g/dL (10/10/16 11:37 PM) MCHC [32.0-36.0 g/dL] 14.3 % (10/12/16 3:09 AM) 14.4 % (10/11/16 8:09 AM) 14.7 % *HI* (10/10/16 11:37 PM) RDW [11.5-14.5 %] 325 K/CMM (10/12/16 3:09 AM) 355 K/CMM (10/11/16 8:09 AM) 455 K/CMM *HI* (10/10/16 11:37 PM) Platelet [133-450 K/CMM] 8.6 fL (10/12/16 3:09 AM) 8.4 fL (10/11/16 8:09 AM) 8.4 fL (10/10/16 11:37 PM) MPV [7.4-10.4 fL] 50.7 % (10/12/16 3:09 AM) 62.0 % (10/10/16 11:37 PM) Segs [45.0-75.0 %] 33.2 % (10/12/16 3:09 AM) 24.6 % (10/10/16 11:37 PM) Lymphocytes [20.0-40.0 %] 7.5 % (10/12/16 3:09 AM) 7.0 % (10/10/16 11:37 PM) Monocytes [2.0-12.0 %] 7.6 % *HI* (10/12/16 3:09 AM) 5.1 % *HI* (10/10/16 11:37 PM) Eosinophils [0.0-4.0 %] 1.0 % (10/12/16 3:09 AM) 1.3 % *HI* (10/10/16 11:37 PM) Basophils [0.0-1.0 %] 3.5 K/CMM (10/12/16 3:09 AM) 5.7 K/CMM (10/10/16 11:37 PM) Segs-Bands # [1.5-8.1 K/CMM] 2.3 K/CMM (10/12/16 3:09 AM) 2.2 K/CMM (10/10/16 11:37 PM) Lymphocytes # [1.0-5.5 K/CMM] 0.5 K/CMM (10/12/16 3:09 AM) 0.6 K/CMM (10/10/16 11:37 PM) Monocytes # [0.0-0.8 K/CMM] 0.5 K/CMM (10/12/16 3:09 AM) 0.5 K/CMM (10/10/16 11:37 PM) Eosinophils # [0.0-0.5 K/CMM] 0.1 K/CMM (10/12/16 3:09 AM) 0.1 K/CMM (10/10/16 11:37 PM) Basophils # [0.0-0.2 K/CMM] 86 mm/hr *HI* (10/11/16 8:09 AM) Sed Rate [0-20 mm/hr] 1Result Comment: Critical Result(s) called to Mi Davis at 10/11/2016 08:43 by tt. Read back OK. Immunizations Given and Recorded Vaccine Date Status Refusal Reason influenza virus vaccine, inactivated 01/08/16 G iven pneumococcal 23-valent vaccine 01/08/16 Given pneumococcal 23-valent vaccine 11/26/13 Given Procedures Procedure Date Related Diagnosis Body Site Amputation1 Amputation below-knee2 section3 section Cholecystectomy 12 toes in R foot 14/12/16 3x6 Social History Social History Type Response Substance Abuse Use: None. Exercise Exercise duration: 30. Exe rcise frequency: 1-2 times/week. Self assessment: Good condition. Exercise t ype: Walking. Alcohol Past, Type Wine. Frequency : 1-2 times per month. 12 Drinks/Episode average. 12.00 Drinks/Episode maximum. Last use: July. Started age 15 Years. Previous treatment: None. Alco hol use interferes with work or home: No. Drinks more than intended: N o. Others hurt by drinking: No. Ready to change: No. Household alcohol concerns: No. Smoking Status Never smoker; Previous ivette tment: None; Exposure to Tobacco Smoke None; Cigarette Smoking Last 365 Days No; Reg Smoking Cessation Counseling Yes Assessment and Plan Extracted from: Title: Infection Control Isolation Author: Zainab Restrepo Date: 10/12/16 Alert ISOLATION ALERT This patient has a history of infection/colonization with MRSA. Site Date Rt Foot Puqtdnjm99/01/2016 Isolation Required: CONTACT Before isolation precautions may be discontinued for this hospital visit, the following protocol must be followed and Infection Control should be notified: Patient must be off antibiotics for 72 hours or 7 days if on dialysis and vancomycin. Send one MRSA PCR nares specimen. Please place order for MRSA PCR. Do not order MRSA Culture. If MRSA PCR is negative, isolation may be discontinued. Patient can only be cleared from isolation for this visit. If readmitted, patient must be isolated and screened for MRSA again. Consult Infection Control for suggested regimens for decolonization of patients with MRSA as well as for any questions. We can be reached at [phone]. ISOLATION ALERT This patient has a history of infection/colonization with a multi-drug resistant organism. Organism Site Date MDR E.sdptBlpwt92/25/2017 MDR IytpsupfrxYrehf72/06/2016 Isolation Required: CONTACT Before isolation precautions may be discontinued, the following protocol must be followed and Infection Control should be notified: Organism Status Cultures Sites MRSA Off abx x 72hrs or 7 days if on dialysis and vancomycin x 2, 48 hrs apart Anterior nares, wounds, & any previous positive sites VRE Off abx x 72hrs or 7 days if on dialysis and renally-cleared drug active against patient's isolate x 2, 48 hrs apart Stool & any previous positive sites PCN-R or PCN-Intermediate Streptococcus pneumoniae 48 hrs of effective antibiotic and resol ution of clinical S/S of pulmonary involvement Multi-drug Resistant Gram Negative Bacteria (Defined as resistant to at least 1 drug in 3 of the 5 drug classes below) a. Cefepime or ceftazidime b. Pip/tazo or ticar/clav c. Gentamicin, amikacin or tobramycin d. Meropenem e. Ciprofloxacin or moxifloxacin Off abx x 72hrs or 7 days if on dialysis and aminoglycoside x2, 48 hrs apart Urine, stool, throat, & any previous positive sites Stenotrophomonas R to Trimethoprim-Sulfa Methoxazole (T/S) Off abx x 72hrs or 7 days if on dialysis and aminoglycoside x2, 48h apart Urine, stool, throat, & any previous positive sites Chryseobacterium meningosepticum (formerly Flavobacterium meningosepticum) and other Chryseobacterium spp. R to minocycline, rifampin, or vancomycin Off abx x 72hrs or 7 days if on dialysis and vancomycin x2, 48h apart Urine, stool, throat, & any previous positive sites Gram negative enterics: Salmonella, Shigella, etc. Off abx x 48 hrs x2, 48h apart Stool TB: Pulmonary or Laryngeal TB is judged clinically unlikely. Patient is improving on effective therapy. There is another diagnosis that explains the clinical syndrome, or they meet criteria. 3 negative sputum smears for AFB. Each s putum specimen should be collected 8-24 hours apart and at least one should be an manager women specimen Sputum Varicella Maintain precautions until all lesions are crusted. Place susceptible patients on precautions beginning day 8 after exposure to day 21 after last exposure or day 28 for patients who have received VZIG. Rubeola (Measles) Maintain precautions for duration of illness. Place susceptible patients on precautions beginning day 5 after exposure to day 21 after last exposure. C. difficile colitis Maintain precautions for duration of diarrhea IT IS NOT NECESSARY TO CULTURE STERILE SITES (BLOOD, CSF, HEALED WOUNDS) WHEN TRYING TO DISCONTINUE ISOLATION. Consult Infection Control for suggested regimens for decolonization of patients with MRSA as well as for any questions. We can be reached at [phone]. Extracted from: Title: History and Physical Author: Maricarmen Hdez MD te: 10/11/16 Assessment/Plan Ms. Hernandez lizzy 40 yr old female with a PMH of DMII, HTN, CKD, HLD, depression who presents with periumbilical abdominal pain that began last night at 11PM all of a sudden. CT shows acute pancreatitis. Lipase normal. 1.Pancreatitis - NPO with IVF at 75cc/hr - history of recent hernia repair on 09/22 2 - lipase 53 2.Diabetes - home regimen: levemir 15 units BID - 09/2016 hemoglobin A1c is 5.0??? - glucoses have been all in 100's. with pt NPO, will just follow with sliding scale for now 3.Hypertension - arrived in hypertensive urgency, which has resolved - home meds (per pt): coreg 25 q12hrs, l asix 20mg BID - last discharge summary shows nifedipin e 90mg as well - will proceed with coreg, lasix, and ni fedipine...current bp is 119/61 4.Depression - continue home sertraline 100mg daily - no SI/HI 5.Chronic kidney disease (CKD) - creatinine 2.4 on admission, appears to be baseline - pt reports CKD due to poorly controlle d diabetes 6.Hx of right BKA - stable, stump well healed Maricarmen Hdez D.O. Internal Medicine PGY-1 Prophylaxis heparin 5000 q8hrs Disposition improvement in pain Addendum by MARILEE Aguilar NOTE: Richard COCHRAN on 10/11/2016 I saw and examined this med ically complex patient , reviewed the labs and radiographic 23:54 CDT data, and agree with this n ote. Richard Aguilar MD
--- OUTSIDE RECORDS SUMMARY | 2019-09-10 20:09 | XMS REPORT | Summary of Care ---
Author Author [facility] Organization [facility] Address Unknown Phone Unavailable Encounter [facility] [place](SANGITA) [id number] Date(s): 09/15/16 - 09/28/16 [facility] [address] [place] [address]- Discharge Disposition: Home or Self Care Attending Physician: Darrion Dykes MD Admitting Physician: Darrion Dykes MD Vital Signs 1 2 3 Most recent to oldest [Reference Range]: 170.18 cm (09/16/16 12:15 AM) Height 156.6 kg (09/28/16 5:33 AM) 113.636 kg (09/27/16 6:31 AM) 112.727 kg (09/26/16 5:14 AM) Current Weight 98.3 DegF (09/28/16 8:29 AM) 98.4 DegF (09/28/16 5:00 AM) 98.4 DegF (09/27/16 8:00 PM) Temperature Oral [96.4-99.1 DegF] 156/94 mmHg *HI* (09/28/16 8:29 AM) 117/78 mmHg (09/28/16 5:00 AM) 152/88 mmHg *HI* (09/27/16 8:00 PM) Blood Pressure [90-140/60-90 mmHg] 18 BRMIN (09/28/16 8:29 AM) 18 BRMIN (09/28/16 5:00 AM) 18 BRMIN (09/27/16 8:00 PM) Respiratory Rate [14-20 BRMIN] 89 bpm (09/28/16 8:29 AM) 92 bpm (09/28/16 5:00 AM) 94 bpm (09/27/16 8:00 PM) Peripheral Pulse Rate [60-100 bpm] 118.182 kg (09/16/16 12:15 AM) Weight 40.81 m2 (09/16/16 12:15 AM) Body Mass Index Problem List Condition Effective Dates Status Health Status Informan t Anxiety(Confirmed) Resolved CHF - Congestive Active heart failure(Confirmed) Chronic Resolved depression(Confirmed ) CKD (chronic kidney Resolved disease)(Confirmed) Diabetes Resolved mellitus(Confirmed) DM (diabetes Active mellitus)(Confirmed) Escherichia Active coli(Confirmed)1 Biliary Active colic(Confirmed) Below knee Active amputation status(Confirmed)2 HTN - Active Hypertension(Confirm ed) HLD Resolved (hyperlipidemia)(Con firmed) Hypertension(Confirm Resolved ed) Klebsiella(Confirmed 03/26/16 Active )3, 4 MRSA(Confirmed)5, 6, 02/23/16 Active 7 MRSA(Confirmed)8, 9 11/29/13 Active 1Problem added by Discern Expert. 2Right sided BKA 3Blood, 03/29/2016 4Problem added by Discern Expert. 5right foot aspirate - 02/23/16 6nares - 02/19/16 7Problem added by Discern Expert. 8Left buttock abscess, 11/29/2013 9Problem added by Discern Expert. Allergies, Adverse Reactions, Alerts Substance Reaction Severity Status NKDA Active Medications acetaminophen-codeine 300 mg-30 mg oral tablet 2 tab, Route: PO, Drug Form: TAB, Dosing Weight 118.182, kg, Q6H, Routine, Start date: 09/27/16 18:00:00 CDT, Duration: 30 day, Stop date: 10/27/16 12:00:00 CDT Notes: Do not exceed 4gm/day of acetaminophen. (Same as: Tylenol with Codeine # 3) Start Date: 09/27/16 Stop Date: 09/28/16 Status: Discontinued acetaminophen-codeine 300 mg-30 mg oral tablet 2 tab, PO, Q6H, # 30 tab, 0 Refill(s) Start Date: 09/28/16 Stop Date: 10/05/16 Status: Ordered albuterol 0.083% inhalation solution 2.49 mg, 3 mL, Route: NEB, Drug form: SOLN, Q6H, Dosing Weight 118.182, kg, Star t date: 09/19/16 12:56:00 CDT, Duration: 30 day, Stop date: 10/19/16 12:00:00 CD T Notes: SEE RT DOCUMENTATION (Same as: Jony) Start Date: 09/19/16 Stop Date: 09/21/16 Status: Discontinued albuterol 0.083% inhalation solution 2.49 mg, 3 mL, Route: NEB, Drug form: SOLN, ONCE, Dosing Weight 118.182, kg, Sta rt date: 09/18/16 13:18:00 CDT, Stop date: 09/18/16 13:18:00 CDT Notes: SEE RT DOCUMENTATION (Same as: Jony) Start Date: 09/18/16 Stop Date: 09/18/16 Status: Completed baclofen 10 mg, 1 tab, Route: PO, Drug form: TAB, TID, Dosing Weight 118.182, kg, Start d ate: 09/27/16 19:00:00 CDT, Duration: 30 day, Stop date: 10/27/16 17:00:00 CDT Notes: (Same As: Ronal) Start Date: 09/27/16 Stop Date: 09/28/16 Status: Discontinued baclofen 10 mg oral tablet 10 mg = 1 tab, PO, TID, # 21 tab, 0 Refill(s) Start Date: 09/28/16 Status: Ordered BD Normal Saline Flush 10 mL, Route: IVP, Drug Form: INJ, PRN, PRN Line Flush, Start date: 09/15/16 23: 25:00 CDT, Duration: 30 day, Stop date: 10/15/16 23:24:00 CDT Notes: (Same as: BD Posiflush) Start Date: 09/15/16 Stop Date: 09/28/16 Status: Discontinued calcium gluconate + sodium chloride 0.9% INJ 100 mL 2,000 mg, 20 mL, Route: IVPB, ONCE, Dosing Weight 118.182, kg, Start date: 09/17 10:59:00 CDT, Stop date: 09/17/16 10:59:00 CDT Notes: WASTE: F/P - Sink; E - Municipal Trash Bin Start Date: 09/17/16 Stop Date: 09/17/16 Status: Completed carvedilol 25 mg, 1 tab, Route: PO, Drug form: TAB, Q12H, Dosing Weight 118.182, kg, Start date: 09/16/16 9:00:00 CDT, Duration: 30 day, Stop date: 10/15/16 21:00:00 CDT Notes: Give with food. (Same As: Coreg) Start Date: 09/16/16 Stop Date: 09/28/16 Status: Discontinued carvedilol 25 mg oral tablet 25 mg = 1 tab, PO, Q12H, # 60 tab, 0 Refill(s) Start Date: 09/28/16 Status: Ordered cefepime + sodium chloride 0.9% INJ 100 mL 1 gm, Route: IV, Q12H, Dosing Weight 118.182, kg, Start date: 09/16/16 10:27:00 CDT, Duration: 30 day, Stop date: 10/16/16 9:00:00 CDT, ABX Indication: Catheter -Related Infection Notes: (Same As: Maxipime) MEDICATION WASTE Product Size: 1000 mgProduc t Wasted: ___ mg Start Date: 09/16/16 Stop Date: 09/18/16 Status: Discontinued cefTRIAXone + sodium chloride 0.9% INJ 100 mL 1 gm, Route: IVPB, [id number], Dosing Weight 118.182, kg, Start date: 09/16/16 22:0 0:00 CDT, Duration: 10 day, Stop date: 09/25/16 22:00:00 CDT, ABX Indication: Ur inary Tract Infection Notes: (Same As: Rocephin).Use with 100 mL NS and infuse over 30 min MEDICA TION WASTE Product Size: 1000 mgProduct Wasted: ___ mg Start Date: 09/16/16 Stop Date: 09/16/16 Status: Canceled cefTRIAXone + sodium chloride 0.9% INJ 100 mL 1 gm, Route: IVPB, ONCE, Dosing Weight 118.182, kg, Priority: STAT, Start date: 09/15/16 21:27:00 CDT, Duration: 1 doses or times, Stop date: 09/15/16 21:27:00 CDT, ABX Indication: Catheter-Related Infection Notes: (Same As: Rocephin).Use with 100 mL NS and infuse over 30 min MEDICA TION WASTE Product Size: 1000 mgProduct Wasted: ___ mg Start Date: 09/15/16 Stop Date: 09/15/16 Status: Completed cloNIDine 0.1 mg oral tablet 0.1 mg = 1 tab, PO, Q8H, # 120 tab, 0 Refill(s) Start Date: 09/28/16 Status: Ordered cloNIDine 0.1 mg oral tablet 0.1 mg, 1 tab, Route: PO, Drug form: TAB, Q8H, Dosing Weight 118.182, kg, Start date: 09/22/16 8:54:00 CDT, Duration: 30 day, Stop date: 10/22/16 8:00:00 CDT Notes: (Same As: Catapres) Start Date: 09/22/16 Stop Date: 09/28/16 Status: Discontinued Cortatrigen otic suspension 2 drp, Route: RIGHT EAR, QID, Drug form: SUSP, Start date: 09/16/16 0:24:00 CDT, Duration: 30 day, Stop date: 10/15/16 21:00:00 CDT Notes: (Same as: Cortipsorin Otic Susp) ([id number] B 10ml otic LUCÍA)WASTE: F/P - Black; E - Municipal Trash Bin Shake well before use. Start Date: 09/16/16 Stop Date: 09/28/16 Status: Discontinued Cortisporin Otic solution 2 drp, RIGHT EAR, QID, # 1 tube, 0 Refill(s) Start Date: 09/28/16 Stop Date: 10/05/16 Status: Ordered Dextrose 50% in Water IV 25 gm, 50 mL, Route: IV, Drug Form: INJ, ONCE, Start date: 09/20/16 11:00:00 CDT , Stop date: 09/20/16 11:00:00 CDT Start Date: 09/20/16 Stop Date: 09/20/16 Status: Completed Dextrose 50% in Water IV 25 gm, 50 mL, Route: IV, Drug Form: INJ, ONCE, Start date: 09/20/16 9:00:00 CDT, Stop date: 09/20/16 9:00:00 CDT Start Date: 09/20/16 Stop Date: 09/20/16 Status: Deleted Dextrose 50% Syringe 12.5 gm, 25 mL, Route: IVP, Drug Form: INJ, Dosing Weight 118.182, kg, PRN, PRN Blood Glucose Results, Start date: 09/15/16 23:58:00 CDT, Duration: 30 day, Stop date: 10/15/16 23:57:00 CDT Start Date: 09/15/16 Stop Date: 09/28/16 Status: Discontinued Dextrose 50% Syringe 25 gm, 50 mL, Route: IVP, Drug Form: INJ, Dosing Weight 118.182, kg, PRN, PRN Bl ood Glucose Results, Start date: 09/15/16 23:58:00 CDT, Duration: 30 day, Stop d ate: 10/15/16 23:57:00 CDT Start Date: 09/15/16 Stop Date: 09/28/16 Status: Discontinued docusate 100 mg, 1 cap, Route: PO, Drug form: CAP, BID, Dosing Weight 118.182, kg, Start date: 09/23/16 11:36:00 CDT, Duration: 30 day, Stop date: 10/23/16 9:00:00 CDT Notes: (Same as: Colace) (Do Not Crush) Start Date: 09/23/16 Stop Date: 09/28/16 Status: Discontinued docusate sodium 100 mg oral capsule 100 mg = 1 cap, PO, BID, # 60 cap, 0 Refill(s) Start Date: 09/28/16 Status: Ordered ertapenem + sodium chloride 0.9% INJ 100 mL 1 gm, Route: IVPB, [id number], Dosing Weight 118.182, kg, Start date: 09/27/16 16:0 0:00 CDT, Duration: 5 day, Stop date: 10/01/16 16:00:00 CDT, ABX Indication: Gen ital Tract Infection Notes: (Same as: INVanz) Refrigerate. NOT COMPATIBLE WITH D5W.Stable in refrige rator for 24 hours MEDICATION WASTE Product Size: 1000 mgProduct Wasted : ___ mg Start Date: 09/27/16 Stop Date: 09/28/16 Status: Discontinued glucagon 1 mg, Route: IM, Drug form: PDR/INJ, PRN, Dosing Weight 118.182, kg, PRN Blood G lucose Results, Start date: 09/15/16 23:58:00 CDT, Duration: 30 day, Stop date: 10/15/16 23:57:00 CDT Start Date: 09/15/16 Stop Date: 09/28/16 Status: Discontinued glucose 25 gm, Route: IVPB, Dosing Weight 118.182, kg, ONCE, Start date: 09/20/16 8:03:0 0 CDT, Stop date: 09/20/16 8:03:00 CDT Start Date: 09/20/16 Stop Date: 09/20/16 Status: Deleted hydrALAZINE 20 mg, 1 mL, Route: IVP, Drug form: INJ, Q4H, Dosing Weight 118.182, kg, PRN Hyp ertension, SBP>180 and or DBP>90, Start date: 09/16/16 0:14:00 CDT, Duration: 30 day, Stop date: 10/16/16 0:13:00 CDT Notes: (Same as: Apresoline)Push over 5 minutes Start Date: 09/16/16 Stop Date: 09/28/16 Status: Discontinued hydrALAZINE 10 mg, Route: IV, Q6H, Dosing Weight 118.182, kg, PRN, Start date: 09/16/16 0:17 :00 CDT, Duration: 30 day, Stop date: 10/16/16 0:16:00 CDT, SBP>=170 and/or DBP> =100 Start Date: 09/16/16 Stop Date: 09/16/16 Status: Discontinued insulin aspart 10 unit, 0.1 mL, Route: SUB-Q, Drug form: SOLN, ONCE, Start date: 09/20/16 8:43: 00 CDT, Stop date: 09/20/16 8:43:00 CDT Notes: Roll in palms of hands gently; Do not shake vigorously. (Same as: Jarrod Angulo)"single patient use only"WASTE: F/P - Black; E - Municipal Trash Bin Stable f or 28 days at room temperature.Expires in days from Date Start Date: 09/20/16 Stop Date: 09/20/16 Status: Discontinued insulin aspart 15 unit, 0.15 mL, Route: SUB-Q, Drug form: SOLN, TID-Before Meals, Dosing Weight 118.182, kg, PRN Blood Glucose Results, Start date: 09/15/16 23:58:00 CDT, Dura tion: 30 day, Stop date: 10/15/16 23:57:00 CDT Notes: Roll in palms of hands gently; Do not shake vigorously. (Same as: Jarrod Angulo)"single patient use only"WASTE: F/P - Black; E - Municipal Trash Bin Stable f or 28 days at room temperature.Expires in days from Date Start Date: 09/15/16 Stop Date: 09/28/16 Status: Discontinued insulin aspart 12 unit, 0.12 mL, Route: SUB-Q, Drug form: SOLN, TID-Before Meals, Dosing Weight 118.182, kg, PRN Blood Glucose Results, Start date: 09/15/16 23:58:00 CDT, Dura tion: 30 day, Stop date: 10/15/16 23:57:00 CDT Notes: Roll in palms of hands gently; Do not shake vigorously. (Same as: Jarrod Angulo)"single patient use only"WASTE: F/P - Black; E - Municipal Trash Bin Stable f or 28 days at room temperature.Expires in days from Date Start Date: 09/15/16 Stop Date: 09/28/16 Status: Discontinued insulin aspart 3 unit, 0.03 mL, Route: SUB-Q, Drug form: SOLN, TID-Before Meals, Dosing Weight 118.182, kg, PRN Blood Glucose Results, Start date: 09/15/16 23:58:00 CDT, Durat ion: 30 day, Stop date: 10/15/16 23:57:00 CDT Notes: Roll in palms of hands gently; Do not shake vigorously. (Same as: Jarrod Angulo)"single patient use only"WASTE: F/P - Black; E - Municipal Trash Bin Stable f or 28 days at room temperature.Expires in days from Date Start Date: 09/15/16 Stop Date: 09/28/16 Status: Discontinued insulin aspart 9 unit, 0.09 mL, Route: SUB-Q, Drug form: SOLN, TID-Before Meals, Dosing Weight 118.182, kg, PRN Blood Glucose Results, Start date: 09/15/16 23:58:00 CDT, Durat ion: 30 day, Stop date: 10/15/16 23:57:00 CDT Notes: Roll in palms of hands gently; Do not shake vigorously. (Same as: NovoDONG G)"single patient use only"WASTE: F/P - Black; E - Municipal Trash Bin Stable f or 28 days at room temperature.Expires in days from Date Start Date: 09/15/16 Stop Date: 09/28/16 Status: Discontinued insulin aspart 6 unit, 0.06 mL, Route: SUB-Q, Drug form: SOLN, TID-Before Meals, Dosing Weight 118.182, kg, PRN Blood Glucose Results, Start date: 09/15/16 23:58:00 CDT, Durat ion: 30 day, Stop date: 10/15/16 23:57:00 CDT Notes: Roll in palms of hands gently; Do not shake vigorously. (Same as: NovoLO G)"single patient use only"WASTE: F/P - Black; E - Municipal Trash Bin Stable f or 28 days at room temperature.Expires in days from Date Start Date: 09/15/16 Stop Date: 09/28/16 Status: Discontinued Insulin regular 10 unit, 0.1 mL, Route: IV, Drug form: SOLN, ONCE, Dosing Weight 118.182, kg, St art date: 09/20/16 10:20:00 CDT, Stop date: 09/20/16 10:20:00 CDT Notes: (Same as: Humulin R) Roll in palms of hands gently; Do not shake vigorou sly. "single patient use only"(Restricted to patients requiring a dose > 60 units)WASTE: F/P - Black; E - Municipal Trash Bin Stable for 28 days at room temperatureExpires in days from Date Start Date: 09/20/16 Stop Date: 09/20/16 Status: Completed Insulin regular 10 unit, Route: SUB-Q, ONCE, Dosing Weight 118.182, kg, Start date: 09/20/16 8:0 1:00 CDT, Stop date: 09/20/16 8:01:00 CDT Start Date: 09/20/16 Stop Date: 09/20/16 Status: Deleted Kayexalate 30 gm, 120 mL, Route: PO, Drug form: SUSP, ONCE, Dosing Weight 118.182, kg, Star t date: 09/25/16 11:54:00 CDT, Stop date: 09/25/16 11:54:00 CDT Notes: (sodium polystyrene sulfonate 15 gm/60 ml LUCÍA) Shake well before use. (Same as: KIMBERLI Jones) Start Date: 09/25/16 Stop Date: 09/25/16 Status: Completed Kayexalate 30 gm, 120 mL, Route: PO, Drug form: SUSP, ONCE, Dosing Weight 118.182, kg, Prio rity: NOW, Start date: 09/24/16 11:55:00 CDT, Stop date: 09/24/16 11:55:00 CDT Notes: (sodium polystyrene sulfonate 15 gm/60 ml LUCÍA) Shake well before use. (Same as: KIMBERLI Jones) Start Date: 09/24/16 Stop Date: 09/24/16 Status: Completed Kayexalate 30 gm, 120 mL, Route: PO, Drug form: SUSP, ONCE, Dosing Weight 118.182, kg, Star t date: 09/22/16 11:28:00 CDT, Stop date: 09/22/16 11:28:00 CDT Notes: (sodium polystyrene sulfonate 15 gm/60 ml LUCÍA) Shake well before use. (Same as: Jamisonte, SPS) Start Date: 09/22/16 Stop Date: 09/22/16 Status: Completed Kayexalate 30 gm, 120 mL, Route: PO, Drug form: SUSP, ONCE, Dosing Weight 118.182, kg, Prio rity: STAT, Start date: 09/23/16 10:21:00 CDT, Stop date: 09/23/16 10:21:00 CDT Notes: (sodium polystyrene sulfonate 15 gm/60 ml LUCÍA) Shake well before use. (Same as: Neemaxalate, SPS) Start Date: 09/23/16 Stop Date: 09/23/16 Status: Completed Kayexalate 30 gm, 120 mL, Route: PO, Drug form: SUSP, ONCE, Dosing Weight 118.182, kg, Star t date: 09/18/16 10:47:00 CDT, Stop date: 09/18/16 10:47:00 CDT Notes: (sodium polystyrene sulfonate 15 gm/60 ml LUCÍA) Shake well before use. (Same as: Kayexalate, SPS) Start Date: 09/18/16 Stop Date: 09/18/16 Status: Completed labetalol 20 mg, PO, BID, 0 Refill(s) Start Date: 09/16/16 Stop Date: 09/28/16 Status: Discontinued Lactated Ringers 1,000 mL 1,000 mL, Rate: 125 ml/hr, Infuse over: 8 hr, Route: IV, Dosing Weight 118.182 k g, Total Volume: 1,000, Start date: 09/19/16 14:07:00 CDT, Duration: 30 day, Sto p date: 10/19/16 14:06:00 CDT Start Date: 09/19/16 Stop Date: 09/21/16 Status: Discontinued Lasix 20 mg oral tablet 20 mg = 1 tab, PO, Daily, # 30 tab, 0 Refill(s) Start Date: 09/16/16 Stop Date: 09/28/16 Status: Discontinued Levemir 15 unit, SUB-Q, Bedtime, 0 Refill(s) Start Date: 09/16/16 Stop Date: 09/28/16 Status: Discontinued meropenem 1,000 mg, Route: IV, Q8H, Dosing Weight 118.182, kg, Start date: 09/18/16 9:18:0 0 CDT, Duration: 30 day, Stop date: 10/18/16 8:00:00 CDT, ABX Indication: Urinar y Tract Infection Start Date: 09/18/16 Stop Date: 09/18/16 Status: Discontinued meropenem + sodium chloride 0.9% INJ 100 mL 1,000 mg, Route: IV, [id number], Dosing Weight 118.182, kg, Start date: 09/18/16 9: 23:00 CDT, Duration: 30 day, Stop date: 10/17/16 21:23:00 CDT, ABX Indication: U rinary Tract Infection Notes: (Same as: Merrem) . MEDICATION WASTE Product Size: 1000 mgProduc t Wasted: ___ mg Start Date: 09/18/16 Stop Date: 09/27/16 Status: Discontinued metoclopramide 10 mg, 2 mL, Route: IVP, Drug form: INJ, ONCE, Dosing Weight 118.182, kg, PRN Na usea & Vomiting, Start date: 09/20/16 21:17:00 CDT Notes: (Same as: Reglan) Start Date: 09/20/16 Stop Date: 09/20/16 Status: Completed morphine Sulfate 4 mg, 1 mL, Route: IVP, Drug form: INJ, ONCE, Dosing Weight 118.182, kg, Priorit y: STAT, Start date: 09/15/16 22:06:00 CDT, Stop date: 09/15/16 22:06:00 CDT Notes: (Same as:MORPhine Sulfate) Start Date: 09/15/16 Stop Date: 09/15/16 Status: Completed morphine Sulfate 4 mg, 1 mL, Route: IVP, Drug form: INJ, Q6H, Dosing Weight 118.182, kg, PRN Pain Score 7-10, Start date: 09/16/16 16:00:00 CDT, Stop date: 10/16/16 10:00:00 CDT Notes: (Same as:MORPhine Sulfate) Start Date: 09/16/16 Stop Date: 09/28/16 Status: Discontinued morphine Sulfate 2 mg, 1 mL, Route: IVP, Drug form: INJ, ONCE, Dosing Weight 118.182, kg, Priorit y: STAT, Start date: 09/15/16 20:50:00 CDT, Stop date: 09/15/16 20:50:00 CDT Notes: (Same as:MORPhine Sulfate) Start Date: 09/15/16 Stop Date: 09/15/16 Status: Completed morphine Sulfate 4 mg, 1 mL, Route: IVP, Drug form: INJ, Q4H, Dosing Weight 118.182, kg, PRN Pain Score 7-10, Start date: 09/16/16 0:34:00 CDT, Duration: 30 day, Stop date: 09/23 09/07 0:33:00 CDT Notes: (Same as:MORPhine Sulfate) Start Date: 09/16/16 Stop Date: 09/16/16 Status: Discontinued NIFEdipine 90 mg oral tablet, extended release 90 mg = 1 tab, PO, Daily, # 30 tab, 0 Refill(s) Start Date: 09/28/16 Status: Ordered NIFEdipine 90 mg oral tablet, extended release 90 mg, 1 tab, Route: PO, Drug form: ERTAB, Daily, Dosing Weight 118.182, kg, Sta rt date: 09/16/16 9:00:00 CDT, Duration: 30 day, Stop date: 10/15/16 9:00:00 CDT Notes: (Same as: Adalat CC,Procardia XL)"Do Not Crush" "Avoid grapefruit and gr apefruit juice" Start Date: 09/16/16 Stop Date: 09/28/16 Status: Discontinued Austin 10/325 oral tablet 2 tab, Route: PO, Drug Form: TAB, Dosing Weight 118.182, kg, Q4H, PRN Pain Score 4-6, Start date: 09/15/16 23:56:00 CDT, Duration: 30 day, Stop date: 10/15/16 2 3:55:00 CDT Notes: Do not exceed 4gm/day of acetaminophen. (Same as: Austin 325/10) Start Date: 09/15/16 Stop Date: 09/17/16 Status: Discontinued Austin 5/325 oral tablet 1 tab, Route: PO, Drug Form: TAB, Dosing Weight 118.182, kg, ONCE, PRN Pain Scor e 4-6, STAT, Start date: 09/18/16 10:13:00 CDT Notes: (Same as: Austin 325/5) Do not exceed 4gm/day of acetaminophen. Start Date: 09/18/16 Stop Date: 09/18/16 Status: Completed Austin 5/325 oral tablet 2 tab, Route: PO, Drug Form: TAB, Dosing Weight 118.182, kg, Q6Hnow, Start date: 09/17/16 8:00:00 CDT, Duration: 30 day, Stop date: 10/17/16 2:00:00 CDT Notes: (Same as: Austin 325/5) Do not exceed 4gm/day of acetaminophen. Start Date: 09/17/16 Stop Date: 09/17/16 Status: Discontinued pantoprazole 40 mg, 1 tab, Route: PO, Drug form: ECTAB, Before Breakfast, Dosing Weight 118.1 82, kg, Start date: 09/16/16 7:30:00 CDT, Duration: 30 day, Stop date: 10/15/16 7:30:00 CDT Notes: Tablet should not be chewed or crushed.(Same as: Protonix) Start Date: 09/16/16 Stop Date: 09/28/16 Status: Discontinued phenazopyridine 100 mg oral tablet 200 mg = 2 tab, PO, TID-After Meals, # 21 tab, 0 Refill(s) Start Date: 09/28/16 Stop Date: 10/05/16 Status: Ordered Phenergan 25 mg, 1 mL, Route: IM, Drug form: INJ, Q6H, Dosing Weight 118.182, kg, PRN as n eeded for nausea/vomiting, Start date: 09/23/16 11:04:00 CDT, Duration: 30 day, Stop date: 10/23/16 11:03:00 CDT Notes: Do not give IV push. (Same as: Phenergan) Start Date: 09/23/16 Stop Date: 09/28/16 Status: Discontinued Pyridium 200 mg, 2 tab, Route: PO, Drug form: TAB, TID-After Meals, Dosing Weight 118.182 , kg, Start date: 09/27/16 12:30:00 CDT, Duration: 2 day, Stop date: 09/29/16 8: 30:00 CDT Notes: Give with meals.(Same as: Pyridium) Start Date: 09/27/16 Stop Date: 09/28/16 Status: Discontinued Saline Flush 0.9% 10 mL, Route: IVP, Drug Form: INJ, Dosing Weight 118.182, kg, PRN, PRN Line Flus h, Start date: 09/15/16 20:47:00 CDT, Duration: 30 day, Stop date: 10/15/16 20:4 6:00 CDT Notes: (Same as: BD Posiflush) Start Date: 09/15/16 Stop Date: 09/15/16 Status: Discontinued Saline Flush 0.9% 10 ml, Route: IVP, Drug Form: INJ, Dosing Weight 118.182, kg, PRN, PRN Line Flus h, Start date: 09/15/16 23:14:00 CDT, Duration: 30 day, Stop date: 10/15/16 23:1 3:00 CDT Start Date: 09/15/16 Stop Date: 09/15/16 Status: Discontinued sertraline 50 mg oral tablet 50 mg = 1 tab, PO, Daily, # 30 tab, 0 Refill(s) Start Date: 09/28/16 Status: Ordered sodium bicarbonate 650 mg, 1 tab, Route: PO, Drug form: TAB, BID, Dosing Weight 118.182, kg, Start date: 09/22/16 17:00:00 CDT, Duration: 30 day, Stop date: 10/22/16 9:00:00 CDT Notes: "Dissolve tablet in a glass of water prior to oral administration. STOMA CH WARNING: To avoid serious injury, do not take until tablet is completely diss olved. It is very important not to take this product when overly full from food or drink." Start Date: 09/22/16 Stop Date: 09/28/16 Status: Discontinued sodium bicarbonate 650 mg oral tablet 650 mg = 1 tab, PO, BID, # 30 tab, 0 Refill(s) Start Date: 09/28/16 Stop Date: 10/05/16 Status: Ordered sodium chloride 0.45% 1000 ml INJ 1,000 mL 1,000 mL, Rate: 125 ml/hr, Infuse over: 8 hr, Route: IV, Dosing Weight 118.182 k g, Total Volume: 1,000, Start date: 09/21/16 14:58:00 CDT, Duration: 1 doses or times, Stop date: 09/21/16 22:57:00 CDT Start Date: 09/21/16 Stop Date: 09/21/16 Status: Completed sodium chloride 0.9% 1000 ml INJ 1,000 mL 1,000 mL, Rate: 100 ml/hr, Infuse over: 10 hr, Route: IV, Dosing Weight 118.182 kg, Total Volume: 1,000, Start date: 09/15/16 23:14:00 CDT, Duration: 30 day, St op date: 10/15/16 23:13:00 CDT Start Date: 09/15/16 Stop Date: 09/17/16 Status: Discontinued Sodium Chloride 0.9% IV 250 mL, Route: IVPB, Start date: 09/15/16 23:25:00 CDT, Duration: 30 day, Stop d ate: 10/15/16 23:24:00 CDT, PRN Line Flush Start Date: 09/15/16 Stop Date: 09/28/16 Status: Discontinued Tylenol 650 mg, 2 tab, Route: PO, Drug form: TAB, Q6H, Dosing Weight 118.182, kg, PRN Pa in 1-3/Temp > 100.4 F, Start date: 09/15/16 23:56:00 CDT, Duration: 30 day, Stop date: 10/15/16 23:55:00 CDT Notes: Do not exceed 4 gm/day. (Same as: Tylenol) Start Date: 09/15/16 Stop Date: 09/27/16 Status: Discontinued Tylenol with Codeine #3 oral tablet 2 tab, Route: PO, Drug Form: TAB, Dosing Weight 118.182, kg, Q6H, PRN Pain Score 4-6, Start date: 09/27/16 10:52:00 CDT, Duration: 30 day, Stop date: 10/27/16 1 0:51:00 CDT Notes: Do not exceed 4gm/day of acetaminophen. (Same as: Tylenol with Codeine # 3) Start Date: 09/27/16 Stop Date: 09/27/16 Status: Discontinued Tylenol with Codeine #3 oral tablet 2 tab, Route: PO, Drug Form: TAB, Dosing Weight 118.182, kg, Q6H, NOW, Start harish e: 09/27/16 12:23:00 CDT, Duration: 30 day, Stop date: 10/27/16 12:00:00 CDT Notes: Do not exceed 4gm/day of acetaminophen. (Same as: Tylenol with Codeine # 3) Start Date: 09/27/16 Stop Date: 09/27/16 Status: Deleted Zofran 4 mg, 2 mL, Route: IVP, Drug form: INJ, Q8H, Dosing Weight 118.182, kg, PRN as n eeded for nausea/vomiting, Start date: 09/19/16 12:23:00 CDT, Duration: 30 day, Stop date: 10/19/16 12:22:00 CDT Notes: (Same as: Zofran) MEDICATION WASTE Product Size: 4 mgProduct Was savana: ___ mg Start Date: 09/19/16 Stop Date: 09/22/16 Status: Discontinued Zofran 4 mg, 2 mL, Route: IVP, Drug form: INJ, ONCE, Dosing Weight 118.182, kg, Priorit y: STAT, Start date: 09/15/16 20:51:00 CDT, Stop date: 09/15/16 20:51:00 CDT Notes: (Same as: Zofran) MEDICATION WASTE Product Size: 4 mgProduct Was savana: ___ mg Start Date: 09/15/16 Stop Date: 09/15/16 Status: Completed Zofran 4 mg, 2 mL, Route: IVP, Drug form: INJ, Q8H, Dosing Weight 118.182, kg, Start da te: 09/16/16 16:00:00 CDT, Duration: 30 day, Stop date: 10/16/16 8:00:00 CDT Notes: (Same as: Zofran) MEDICATION WASTE Product Size: 4 mgProduct Was savana: ___ mg Start Date: 09/16/16 Stop Date: 09/19/16 Status: Discontinued Zofran 4 mg, 2 mL, Route: IVP, Drug form: INJ, Q8H, Dosing Weight 118.182, kg, Start da te: 09/22/16 18:00:00 CDT, Duration: 30 day, Stop date: 10/22/16 10:00:00 CDT Notes: (Same as: Zofran) MEDICATION WASTE Product Size: 4 mgProduct Was savana: ___ mg Start Date: 09/22/16 Stop Date: 09/24/16 Status: Discontinued Zofran 4 mg, 2 mL, Route: IVP, Drug form: INJ, Q8H, Dosing Weight 118.182, kg, PRN as n eeded for nausea/vomiting, Priority: NOW, Start date: 09/16/16 8:48:00 CDT, Dura tion: 30 day, Stop date: 10/16/16 8:47:00 CDT Notes: (Same as: Zofran) MEDICATION WASTE Product Size: 4 mgProduct Was savana: ___ mg Start Date: 09/16/16 Stop Date: 09/16/16 Status: Discontinued Zofran 4 mg, 2 mL, Route: IVP, Drug form: INJ, Q8H, Dosing Weight 118.182, kg, PRN as n eeded for nausea/vomiting, Start date: 09/24/16 10:40:00 CDT, Duration: 30 day, Stop date: 10/24/16 10:39:00 CDT Notes: (Same as: Zofran) MEDICATION WASTE Product Size: 4 mgProduct Was savana: ___ mg Start Date: 09/24/16 Stop Date: 09/28/16 Status: Discontinued Zoloft 25 mg, 1 tab, Route: PO, Drug form: TAB, Daily, Dosing Weight 118.182, kg, Start date: 09/22/16 9:00:00 CDT, Duration: 30 day, Stop date: 10/21/16 9:00:00 CDT Notes: (Same as: Zoloft) Start Date: 09/22/16 Stop Date: 09/25/16 Status: Discontinued Zoloft 50 mg, 1 tab, Route: PO, Drug form: TAB, Daily, Dosing Weight 118.182, kg, Start date: 09/26/16 9:00:00 CDT, Duration: 30 day, Stop date: 10/25/16 9:00:00 CDT Notes: (Same as: Zoloft) Start Date: 09/26/16 Stop Date: 09/28/16 Status: Discontinued Results ELECTROLYTES 1 2 3 Most recent to oldest [Reference Range]: 144 mEq/L (09/28/16 5:47 AM) 142 mEq/L (09/27/16 5:05 AM) 142 mEq/L (09/26/16 3:38 AM) Sodium Lvl [135-145 mEq/L] 4.5 mEq/L (09/28/16 5:47 AM) 4.9 mEq/L (09/27/16 5:05 AM) 4.7 mEq/L (09/26/16 3:38 AM) Potassium Lvl [3.5-5.1 mEq/L] 112 mEq/L *HI* (09/28/16 5:47 AM) 113 mEq/L *HI* (09/27/16 5:05 AM) 113 mEq/L *HI* (09/26/16 3:38 AM) Chloride Lvl [95-109 mEq/L] 24 mEq/L (09/28/16 5:47 AM) 21 mEq/L *LOW* (09/27/16 5:05 AM) 21 mEq/L *LOW* (09/26/16 3:38 AM) CO2 [24-32 mEq/L] 12.5 mEq/L (09/28/16 5:47 AM) 12.9 mEq/L (09/27/16 5:05 AM) 12.7 mEq/L (09/26/16 3:38 AM) AGAP [10.0-20.0 mEq/L] CHEM PANEL 1 2 3 Most recent to oldest [Reference Range]: 2.40 mg/dL *HI* (09/28/16 5:47 AM) 2.60 mg/dL *HI* (09/27/16 5:05 AM) 2.50 mg/dL *HI* (09/26/16 3:38 AM) Creatinine Lvl [0.50-1.40 mg/dL] 28 mL/min/1.73m2 1 *NA* (09/28/16 5:47 AM) 25 mL/min/1.73m2 2 *NA* (09/27/16 5:05 AM) 27 mL/min/1.73m2 3 *NA* (09/26/16 3:38 AM) eGFR 21 mg/dL (09/28/16 5:47 AM) 21 mg/dL (09/27/16 5:05 AM) 21 mg/dL (09/26/16 3:38 AM) BUN [7-22 mg/dL] 9 (09/15/16 9:05 PM) B/C Ratio [6-25] 136 mg/dL *HI* (09/28/16 5:47 AM) 103 mg/dL *HI* (09/27/16 5:05 AM) 80 mg/dL (09/26/16 3:38 AM) Glucose Lvl [70-99 mg/dL] 5.5 g/dL *LOW* (09/21/16 4:57 AM) 6.0 g/dL *LOW* (09/15/16 9:05 PM) Total Protein [6.4-8.4 g/dL] 1.3 g/dL *LOW* (09/21/16 4:57 AM) 1.4 g/dL *LOW* (09/15/16 9:05 PM) Albumin Lvl [3.5-5.0 g/dL] 4.2 g/dL (09/21/16 4:57 AM) 4.6 g/dL *HI* (09/15/16 9:05 PM) Globulin [2.7-4.2 g/dL] 0.3 *LOW* (09/21/16 4:57 AM) 0.3 *LOW* (09/15/16 9:05 PM) A/G Ratio [0.7-1.6] 7.4 mg/dL *LOW* (09/28/16 5:47 AM) 8.1 mg/dL *LOW* (09/27/16 5:05 AM) 7.7 mg/dL *LOW* (09/26/16 3:38 AM) Calcium Lvl [8.5-10.5 mg/dL] 4.5 mg/dL (09/27/16 5:05 AM) Phosphorus [2.5-4.5 mg/dL] 1.5 mg/dL *LOW* (09/27/16 5:05 AM) Magnesium Lvl [1.8-2.4 mg/dL] 10 unit/L (09/21/16 4:57 AM) 8 unit/L (09/15/16 9:05 PM) ALT [0-65 unit/L] 10 unit/L (09/21/16 4:57 AM) 8 unit/L (09/15/16 9:05 PM) AST [0-37 unit/L] 106 unit/L (09/21/16 4:57 AM) 139 unit/L *HI* (09/15/16 9:05 PM) Alk Phos [39-136 unit/L] 0.1 mg/dL *LOW* (09/21/16 4:57 AM) 0.2 mg/dL (09/15/16 9:05 PM) Bili Total [0.2-1.3 mg/dL] <0.1 mg/dL (09/21/16 4:57 AM) Bili Direct [0.0-0.3 mg/dL] Unable to Calculate *NA* (09/21/16 4:57 AM) Bili Indirect [0.0-1.0] 86 unit/L (09/15/16 9:05 PM) Lipase Lvl [73-393 unit/L] 1Result Comment: The eGFR is calculated using [...] be mul tiplied by the estimated BMI. SPECIAL CHEMISTRY 1 2 3 Most recent to oldest [Reference Range]: 4.7 % (09/23/16 11:05 AM) Hgb A1C [<=5.6 %] PARATHYROID PROFILE 1 2 3 Most recent to oldest [Reference Range]: 1.18 mMol/L (09/21/16 4:57 AM) 1.02 mMol/L *LOW* (09/17/16 10:00 AM) Ca Ion WB [1.05-1.25 mMol/L] 1.15 mMol/L (09/21/16 4:57 AM) 1.01 mMol/L *LOW* (09/17/16 10:00 AM) Ca Norm WB [1.05-1.25 mMol/L] ENDOCRINOLOGY 1 2 3 Most recent to oldest [Reference Range]: Negative *NA* (09/15/16 9:05 PM) S Preg [Negative] URINE CHEM 1 2 3 Most recent to oldest [Reference Range]: 57.90 mg/dL *NA* (09/23/16 5:35 PM) U Creatinine 424.6 mg/dL *NA* (09/23/16 5:35 PM) U Protein 7.3 *NA* (09/23/16 5:35 PM) U Prot/Creat URINE AND STOOL 1 2 3 Most recent to oldest [Reference Range]: Slight *ABN* (09/27/16 2:03 PM) Slight *ABN* (09/23/16 5:35 PM) Moderate *ABN* (09/15/16 9:05 PM) UA Turbidity [Clear] Ltyellow *NA* (09/27/16 2:03 PM) Ltyellow *NA* (09/23/16 5:35 PM) Yellow *NA* (09/15/16 9:05 PM) UA Color 6.0 (09/27/16 2:03 PM) 6.0 (09/23/16 5:35 PM) 5.0 (09/15/16 9:05 PM) UA pH [5.0-8.0] 1.012 (09/27/16 2:03 PM) 1.010 (09/23/16 5:35 PM) 1.014 (09/15/16 9:05 PM) UA Spec Grav [<=1.030] 150 mg/dL *NA* (09/27/16 2:03 PM) 50 mg/dL *NA* (09/23/16 5:35 PM) 50 mg/dL *NA* (09/15/16 9:05 PM) UA Glucose Negative (09/27/16 2:03 PM) Negative (09/23/16 5:35 PM) Negative (09/15/16 9:05 PM) UA Blood [Negative] Negative mg/dL *NA* (09/27/16 2:03 PM) Negative mg/dL *NA* (09/23/16 5:35 PM) Negative mg/dL *NA* (09/15/16 9:05 PM) UA Ketones [Negative mg/dL] 100 mg/dL *ABN* (09/27/16 2:03 PM) 100 mg/dL *ABN* (09/23/16 5:35 PM) >=300 mg/dL *ABN* (09/15/16 9:05 PM) UA Protein [Negative mg/dL] <=1.0 mg/dL *NA* (09/27/16 2:03 PM) <=1.0 mg/dL *NA* (09/23/16 5:35 PM) <=1.0 mg/dL *NA* (09/15/16 9:05 PM) UA Urobilinogen [0.1-1.0 mg/dL] Negative *NA* (09/27/16 2:03 PM) Negative *NA* (09/23/16 5:35 PM) Negative *NA* (09/15/16 9:05 PM) UA Bili [Negative] Negative (09/27/16 2:03 PM) Negative (09/23/16 5:35 PM) Large *ABN* (09/15/16 9:05 PM) UA Leuk Est [Negative] Negative (09/27/16 2:03 PM) Negative (09/23/16 5:35 PM) Negative (09/15/16 9:05 PM) UA Nitrite [Negative] 6 /HPF *HI* (09/27/16 2:03 PM) 7 /HPF *HI* (09/23/16 5:35 PM) >182 /HPF *HI* (09/15/16 9:05 PM) UA WBC [0-5 /HPF] 2 /HPF (09/27/16 2:03 PM) 1 /HPF (09/23/16 5:35 PM) 4 /HPF *HI* (09/15/16 9:05 PM) UA RBC [0-2 /HPF] Occasional /HPF *NA* (09/23/16 5:35 PM) Many /HPF *ABN* (09/15/16 9:05 PM) UA Bacteria [None Seen /HPF] Occasional /LPF *NA* (09/27/16 2:03 PM) Few /LPF *NA* (09/23/16 5:35 PM) UA Sq Epi [Few /LPF] None Seen *NA* (09/15/16 9:05 PM) UA Sq Epi Occasional /HPF *NA* (09/15/16 9:05 PM) UA Amorph Tamera [None Seen /HPF] Few /LPF *NA* (09/15/16 9:05 PM) UA Mucus [None Seen /LPF] Performed *NA* (09/27/16 2:03 PM) Performed *NA* (09/23/16 5:35 PM) Micro? IMMUNOLOGY 1 2 3 Most recent to oldest [Reference Range]: Negative *NA* (09/23/16 11:05 AM) Hep Bs Ag [Negative] Negative *NA* (09/23/16 11:05 AM) Hep B Core IgM [Negative] Negative *NA* (09/23/16 11:05 AM) Hep A IgM [Negative] Negative *NA* (09/23/16 11:05 AM) Hep C Ab HEMATOLOGY 1 2 3 Most recent to oldest [Reference Range]: 5.5 K/CMM (09/28/16 5:47 AM) 5.5 K/CMM (09/27/16 5:05 AM) 5.8 K/CMM (09/26/16 3:38 AM) WBC [3.7-10.4 K/CMM] 3.10 M/CMM *LOW* (09/28/16 5:47 AM) 3.02 M/CMM *LOW* (09/27/16 5:05 AM) 3.08 M/CMM *LOW* (09/26/16 3:38 AM) RBC [4.20-5.40 M/CMM] 8.8 g/dL *LOW* (09/28/16 5:47 AM) 8.9 g/dL *LOW* (09/27/16 5:05 AM) 9.1 g/dL *LOW* (09/26/16 3:38 AM) Hgb [12.0-16.0 g/dL] 27.6 % *LOW* (09/28/16 5:47 AM) 26.9 % *LOW* (09/27/16 5:05 AM) 27.3 % *LOW* (09/26/16 3:38 AM) Hct [36.0-48.0 %] 89.0 fL (09/28/16 5:47 AM) 89.3 fL (09/27/16 5:05 AM) 88.6 fL (09/26/16 3:38 AM) MCV [80.0-98.0 fL] 28.4 pg (09/28/16 5:47 AM) 29.6 pg (09/27/16 5:05 AM) 29.5 pg (09/26/16 3:38 AM) MCH [27.0-31.0 pg] 31.9 g/dL *LOW* (09/28/16 5:47 AM) 33.2 g/dL (09/27/16 5:05 AM) 33.3 g/dL (09/26/16 3:38 AM) MCHC [32.0-36.0 g/dL] 14.3 % (09/28/16 5:47 AM) 14.4 % (09/27/16 5:05 AM) 14.5 % (09/26/16 3:38 AM) RDW [11.5-14.5 %] 346 K/CMM (09/28/16 5:47 AM) 288 K/CMM (09/27/16 5:05 AM) 306 K/CMM (09/26/16 3:38 AM) Platelet [133-450 K/CMM] 8.1 fL (09/28/16 5:47 AM) 8.1 fL (09/27/16 5:05 AM) 8.0 fL (09/26/16 3:38 AM) MPV [7.4-10.4 fL] 38.8 % *LOW* (09/28/16 5:47 AM) 42.5 % *LOW* (09/27/16 5:05 AM) 45.4 % (09/26/16 3:38 AM) Segs [45.0-75.0 %] 47.3 % *HI* (09/28/16 5:47 AM) 43.6 % *HI* (09/27/16 5:05 AM) 39.2 % (09/26/16 3:38 AM) Lymphocytes [20.0-40.0 %] 5.4 % (09/28/16 5:47 AM) 5.4 % (09/27/16 5:05 AM) 7.0 % (09/26/16 3:38 AM) Monocytes [2.0-12.0 %] 7.1 % *HI* (09/28/16 5:47 AM) 7.1 % *HI* (09/27/16 5:05 AM) 7.1 % *HI* (09/26/16 3:38 AM) Eosinophils [0.0-4.0 %] 1.4 % *HI* (09/28/16 5:47 AM) 1.4 % *HI* (09/27/16 5:05 AM) 1.3 % *HI* (09/26/16 3:38 AM) Basophils [0.0-1.0 %] 2.1 K/CMM (09/28/16 5:47 AM) 2.3 K/CMM (09/27/16 5:05 AM) 2.6 K/CMM (09/26/16 3:38 AM) Segs-Bands # [1.5-8.1 K/CMM] 2.6 K/CMM (09/28/16 5:47 AM) 2.4 K/CMM (09/27/16 5:05 AM) 2.3 K/CMM (09/26/16 3:38 AM) Lymphocytes # [1.0-5.5 K/CMM] 0.3 K/CMM (09/28/16 5:47 AM) 0.3 K/CMM (09/27/16 5:05 AM) 0.4 K/CMM (09/26/16 3:38 AM) Monocytes # [0.0-0.8 K/CMM] 0.4 K/CMM (09/28/16 5:47 AM) 0.4 K/CMM (09/27/16 5:05 AM) 0.4 K/CMM (09/26/16 3:38 AM) Eosinophils # [0.0-0.5 K/CMM] 0.1 K/CMM (09/28/16 5:47 AM) 0.1 K/CMM (09/27/16 5:05 AM) 0.1 K/CMM (09/26/16 3:38 AM) Basophils # [0.0-0.2 K/CMM] Normal (09/18/16 4:21 AM) RBC Morph Normal (09/18/16 4:21 AM) Plt Morph 14.4 seconds (09/22/16 5:05 AM) PT [12.0-14.7 seconds] 1.10 (09/22/16 5:05 AM) INR [0.85-1.17] 35.8 seconds (09/22/16 5:05 AM) PTT [22.9-35.8 seconds] MOLECULAR DIAGNOSTIC 1 2 3 Most recent to oldest [Reference Range]: Not Detected (09/23/16 11:05 AM) Vir Ld-HIV1 RNA <1.3 log *NA* (09/23/16 11:05 AM) Log10 HIV1 Immunizations Given and Recorded Vaccine Date Status [...] Good condition. Exercise t ype: Walking. Alcohol Current, Type Wine. Freque ncy: 1-2 times per month. 12 Drinks/Episode average. [...] Yes Assessment and Plan Extracted from: Title: Discharge Summary Author: Abdullahi Simon MD D ate: 09/28/16 Discharge Summary Patient: GISELA SOL Age: 40 years Sex: Female : 1975 Associated Diagnoses: None Author: Abdullahi Simon MD Date of Admission: 09/15/16 Date of Discharge: 09/28/16 Attending Physician: Vince Dykes HPI: 40 y/o female PMHx of DM, HTN, CHF, CKD, HLD and diabetic Charcot foot s/p R BKA presents to the ED with moderate lower abdominal pain which began approximately 1 week ago. Patient had a laparoscopic cholecystectomy on 09/07/[address] Layton and had a anderson catheter placed post-op. Anderson cath remains in place. She was asked to follow-up with urology in 1 week, Dr. Leach. She states lower abdominal cramping has been present since anderson placement but has worsened over the past two days and was accompanied by lower back pain. She also endorses complaints of right ear pain that began 2 days ago and was not associated with any inciting factor or accompanied by constitutional symptoms. Patient denies fever, chills, nausea, vomiting, and diarrhea. In the ED, UA revealed LE, bacteria. protein and WBCs; CBC had no WBC, afebrile; UPT negative; Cr at 2.77 which is baseline Discharge Diagnoses: MDR E.coli pyelonephritis, CKD, Hypertension, Hyperchloremic metabolic acidosis, anemia of chronic disease, hyperkalemia, diabetes type 2, depression Hospital Course: The patient was admitted for IV antibiotics for pyelonephritis, complicated by longstanding diabetes, and chronic kidney disease. The urine culture showed multi-drug resistant (ESBL) E. coli. Her antibiotics were switched from cephalosporin to meropenem in collaboration with Infectious Disease. Nephrology was also consulted to assist with her chronic kidney disease and management while receiving treatment for her infection. On renal ultrasound, kidney disease was suspected based on an echogenic appearance, presumed to be diabetic nephropathy. The patient was also noted to have hyperkalemia secondary to diet and her kidney disease. Diet modifications were implemented and kayaexlate, which improved her potassium level. Of note, her CT abdomen showed an umbilical hernia, but her abdominal pain was intermittent, and worse with urination, which suggests that the primary cause for her pain was cystitis and pyelonephritis. Her blood pressure remained stable with a combination of nefidipine, clonidine, and carvedilol. She received 10 of 14 days of IV meropenem, and was switched to ertapenem on day 11 of 14. She was discharged home with prescriptions for hypertension, depression, and abdominal pain. Her pain consisted primarily of cramping and dysuria, which was well controlled with Tylenol #3, baclofen, and pyridium. Home health was established to complete her IV antibiotic course with ertapenem for 3 more days. She was advised to follow up with her PCP 1 week after discharge. Consults: Infectious disease, Dr. Kwong and Nephrology, Dr. Woods, Latosha Laguna MD, Office: Pertinent Studies: CT abdomen/pelvis IMPRESSION: 1. A stable fat-containing hernia, assoc iated with mild fat stranding and fluid. The appearance suggests potential fat necrosis. There are no herniated bowel loops. 2. The thickened appearance of the bladd er wall suggests potential cystitis. Renal ultrasound IMPRESSION: Markedly echogenic kidneys suggestive of medical renal disease. Mild bilateral hydronephrosis. Diffuse bladder wall thickening suspicious for cystitis. Other considerations would include bladder outlet obstruction or neurogenic bladder. Condition: stable Diet: regular balanced, healthy diet Activity: as tolerated Meds: Please see home medication reconciliation Follow-up: 1 week with PCP Patient Instructions: Please follow-up as above and take all medications as prescribed Recommendations for Primary Care physician: If you need any additional information regarding your patient s hospital stay please call the page satellite communications operator at [facility] [phone], and ask him/her to page me. Patient discussed with attending, Dr. Dykes, who agrees with the plan. Shahab Simon M.D. PGY1 [id number] [id number] Extracted from: Title: Nephrology* Author: Latosha Woods MD Date: 09/28/16 Impression and Plan The patient was seen and examined by me with the resident/EMBEDDED CASE MANAGER/PA and I agree with the History/Exam documented. 1.Shauna 2.CKD4 3.Hyperkalemia 4.Acidemia 5.UTI 6.Anemia Recs: Potassium stable ;continue on low k diet Renal function is stable;avoid NSAIDS, renally dose all medications BP stable on current medications Antibitotics per primary Discussed with RN and pt Extracted from: Title: Initial Renal Consultation Author: Latosha Woods MD Date: 09/23/16 Impression and Plan Shauna on CKD stage 4 Hyperkalemia Metabolic acidosis E Coli UTI Hypertensive heart disease DM type 2 Hypoalbuminemia Anemia in CKD Plan: creatinine stable, possibly baseline; ultrasound with chronic disease; pt with significant proteinuria; will quantify with spot TP/Cr ratio; check other etiologies; most likely sec to DM nephropathy; will check Hbaic, hepatis panel, HIV; pt with hypoalbumnemia;recheck UA avoid NSAIDS:; renally dose medicaitons pt eating excesive K rich foods; was having strawberry juice, oranges/mixed frutis at bedside; discussed with pt and RN; diet changed one dose po kayaxelate; BP controlled; continue same medications for now; avoid acei /arb continue antibitocs for E coli UTI; avoid PICC with CKD stage 4; recomend central line on discharge depending on duration of antibiotics Thank you Dr Dykes for letting me participate in the care of this patient discussed with Dr Ku and RN
--- OUTSIDE RECORDS SUMMARY | 2019-09-10 20:09 | XMS REPORT | Summary of Care ---
Author Author [facility] Organization [facility] Address Unknown Phone Unavailable Encounter PRIMITIVO Mariano(SANGITA) [id number] Date(s): 09/07/16 - 09/11/16 [facility] [address] [employer] provided by [facility] [place] [address]- Discharge Disposition: Home or Self Care Attending Physician: Duglas Joy MD Vital Signs 1 2 3 Most recent to oldest [Reference Range]: 170.18 cm (09/07/16 3:06 PM) 170.18 cm (09/07/16 9:29 AM) Height 97.5 DegF (09/11/16 11:31 AM) 97.4 DegF (09/11/16 7:39 AM) 98.4 DegF (09/11/16 12:17 AM) Temperature Oral [96.4-99.1 DegF] 114/66 mmHg (09/11/16 11:31 AM) 116/56 mmHg (09/11/16 7:39 AM) 112/62 mmHg (09/11/16 12:17 AM) Blood Pressure [90-140/60-90 mmHg] 18 BRMIN (09/11/16 11:31 AM) 18 BRMIN (09/11/16 7:39 AM) 18 BRMIN (09/11/16 12:17 AM) Respiratory Rate [14-20 BRMIN] 90 bpm (09/11/16 11:31 AM) 92 bpm (09/11/16 7:39 AM) 99 bpm (09/11/16 12:17 AM) Peripheral Pulse Rate [60-100 bpm] 118.182 kg (09/07/16 3:06 PM) 112.727 kg (09/07/16 9:29 AM) Weight 40.81 m2 (09/07/16 3:06 PM) 38.92 m2 (09/07/16 9:29 AM) Body Mass Index Problem List Condition Effective Dates Status Health Status Informan t Anxiety(Confirmed) Resolved CHF - Congestive Active heart failure(Confirmed) Chronic Resolved depression(Confirmed ) CKD (chronic kidney Resolved disease)(Confirmed) DM (diabetes Active mellitus)(Confirmed) Biliary Active colic(Confirmed) Below knee Active amputation status(Confirmed)1 HTN - Active Hypertension(Confirm ed) HLD Resolved (hyperlipidemia)(Con firmed) Klebsiella(Confirmed 03/26/16 Active )2, 3 MRSA(Confirmed)4, 5, 02/23/16 Active 6 1Right sided BKA 2Blood, 03/29/2016 3Problem added by Discern Expert. 4right foot aspirate - 02/23/16 5nares - 02/19/16 6Problem added by Discern Expert. Allergies, Adverse Reactions, Alerts Substance Reaction Severity Status NKDA Active Medications acetaminophen 500 mg oral tablet 1,000 mg = 2 tab, PO, Q6H, X 10 day, # 80 tab, 0 Refill(s) Start Date: 09/09/16 Stop Date: 09/10/16 Status: Discontinued acetaminophen-10 mg/mL INTRAVENOUS solution 1,000 mg, 100 mL, Route: IV, Drug form: INJ, ONCE, Dosing Weight 118.182, kg, Fo r > or = 50 kg, Priority: STAT, Start date: 09/08/16 15:07:00 CDT, Stop date: 09/08/16 15:07:00 CDT Notes: Infuse over 15 minutesDo not exceed 4gm/day of acetaminophen MEDICAT ION WASTE Product Size: 1000 mgProduct Wasted: ___ mg Start Date: 09/08/16 Stop Date: 09/08/16 Status: Completed amLODIPine 5 mg, PO, Daily, 0 Refill(s) Start Date: 09/07/16 Status: Ordered ANES esmolol 10 mg, 1 mL, Route: IVP, Drug form: INJ, Q5Min, Dosing Weight 118.182, kg, PRN O ther -See Comment, Start date: 09/07/16 17:23:00 CDT, Duration: 5 doses or times , Stop date: Limited # of times Notes: (Same as: Brevibloc) Start Date: 09/07/16 Stop Date: 09/07/16 Status: Discontinued ANES flumazenil 0.2 mg, 2 mL, Route: IVP, Drug form: INJ, PRN, Dosing Weight 118.182, kg, PRN Be nzodiazepine Reversal, Initial dose, Start date: 09/07/16 17:23:00 CDT, Duration : 30 day, Stop date: 10/07/16 17:22:00 CDT Notes: (Same as: Romazicon) Start Date: 09/07/16 Stop Date: 09/07/16 Status: Discontinued ANES hydrALAZINE 10 mg, 0.5 mL, Route: IVP, Drug form: INJ, Q20Min, Dosing Weight 118.182, kg, WA N Elevated BP, Start date: 09/07/16 17:23:00 CDT, Duration: 2 doses or times, St op date: Limited # of times Notes: (Same as: Apresoline)Push over 5 minutes Start Date: 09/07/16 Stop Date: 09/07/16 Status: Discontinued ANES HYDROmorphone 0.5 mg, 0.25 mL, Route: IVP, Drug form: INJ, Q5Min, Dosing Weight 118.182, kg, P RN Pain Score 7-10, Start date: 09/07/16 17:23:00 CDT, Duration: 4 doses or time s, Stop date: Limited # of times Notes: Same as: Dilaudid Start Date: 09/07/16 Stop Date: 09/07/16 Status: Discontinued ANES labetalol 10 mg, 2 mL, Route: IVP, Drug form: INJ, Q5Min, Dosing Weight 118.182, kg, PRN E levated BP, Start date: 09/07/16 17:23:00 CDT, Duration: 5 doses or times, Stop date: Limited # of times Start Date: 09/07/16 Stop Date: 09/07/16 Status: Discontinued ANES metoprolol 1 mg, 1 mL, Route: IVP, Drug form: INJ, Q5Min, Dosing Weight 118.182, kg, PRN Ot her -See Comment, Start date: 09/07/16 17:23:00 CDT, Duration: 5 doses or times, Stop date: Limited # of times Notes: (Same as: Lopressor)Push over 2 minutes Start Date: 09/07/16 Stop Date: 09/07/16 Status: Discontinued ANES naloxone 0.4 mg, 1 mL, Route: IVP, Drug form: INJ, Q2MIN, Dosing Weight 118.182, kg, PRN Narcotic Reversal, Start date: 09/07/16 17:23:00 CDT, Duration: 8 doses or times , Stop date: Limited # of times Notes: Same as Narcan Start Date: 09/07/16 Stop Date: 09/07/16 Status: Discontinued ANES ondansetron 4 mg, 2 mL, Route: IVP, Drug form: INJ, ONCE, Dosing Weight 118.182, kg, PRN Elmer sea & Vomiting, Start date: 09/07/16 17:23:00 CDT Notes: (Same as: Luis) MEDICATION WASTE Product Size: 4 mgProduct Was savana: ___ mg Start Date: 09/07/16 Stop Date: 09/07/16 Status: Discontinued atorvastatin 40 mg, 1 tab, Route: PO, Drug form: TAB, Bedtime, Dosing Weight 118.182, kg, Sta rt date: 09/07/16 21:00:00 CDT, Duration: 30 day, Stop date: 10/06/16 21:00:00 C DT Notes: (Same as: Lipitor) Start Date: 09/07/16 Stop Date: 09/11/16 Status: Discontinued Benadryl 25 mg, 1 cap, Route: PO, Drug form: CAP, Bedtime, Dosing Weight 118.182, kg, PRN Insomnia, Start date: 09/11/16 0:38:00 CDT, Duration: 30 day, Stop date: 0:37:00 CDT Notes: (Same as: Benadryl) Start Date: 09/11/16 Stop Date: 09/11/16 Status: Discontinued bisacodyl 10 mg, 1 supp, Route: WA, Drug form: SUPP, Daily, Dosing Weight 112.727, kg, PRN Constipation, Start date: 09/07/16 13:31:00 CDT, Duration: 30 day, Stop date: 0 10/07/16 13:30:00 CDT Notes: (Same As: Dulcolax, Bisco-Lax) Start Date: 09/07/16 Stop Date: 09/10/16 Status: Discontinued carvedilol 25 mg, 1 tab, Route: PO, Drug form: TAB, Q12H, Dosing Weight 118.182, kg, Start date: 09/07/16 21:00:00 CDT, Duration: 30 day, Stop date: 10/07/16 9:00:00 CDT Notes: Give with food. (Same As: Coreg) Start Date: 09/07/16 Stop Date: 09/11/16 Status: Discontinued ceFAZolin (ANES) Route: IV, Drug form: INJ, ONCE, Stop date: 09/07/16 17:10:00 CDT Start Date: 09/07/16 Stop Date: 09/07/16 Status: Completed Colace 50 mg oral capsule 50 mg = 1 cap, PO, BID, PRN Constipation, # 60 cap, 0 Refill(s) Start Date: 09/09/16 Stop Date: 09/10/16 Status: Discontinued dexamethasone (ANES) Route: IV, Drug form: INJ, ONCE, Stop date: 09/07/16 16:40:00 CDT Start Date: 09/07/16 Stop Date: 09/07/16 Status: Completed Dextrose 50% Syringe 25 gm, 50 mL, Route: IVP, Drug Form: INJ, Dosing Weight 112.727, kg, PRN, PRN Bl ood Glucose Results, Start date: 09/07/16 13:49:00 CDT, Duration: 30 day, Stop d ate: 10/07/16 13:48:00 CDT Start Date: 09/07/16 Stop Date: 09/11/16 Status: Discontinued Dextrose 50% Syringe 12.5 gm, 25 mL, Route: IVP, Drug Form: INJ, Dosing Weight 112.727, kg, PRN, PRN Blood Glucose Results, Start date: 09/07/16 13:49:00 CDT, Duration: 30 day, Stop date: 10/07/16 13:48:00 CDT Start Date: 09/07/16 Stop Date: 09/11/16 Status: Discontinued Dilaudid 0.5 mg, 0.25 mL, Route: IVP, Drug form: INJ, ONCE, Dosing Weight 118.182, kg, Pr iority: STAT, Start date: 09/08/16 17:37:00 CDT, Stop date: 09/08/16 17:37:00 CD T Notes: Same as: Dilaudid Start Date: 09/08/16 Stop Date: 09/08/16 Status: Completed docusate 100 mg, 1 cap, Route: PO, Drug form: CAP, BID, Dosing Weight 112.727, kg, Start date: 09/07/16 17:00:00 CDT, Duration: 30 day, Stop date: 10/07/16 9:00:00 CDT Notes: (Same as: Colace) (Do Not Crush) Start Date: 09/07/16 Stop Date: 09/10/16 Status: Discontinued famotidine (ANES) Route: IV, Drug form: INJ, ONCE, Stop date: 09/07/16 16:45:00 CDT Start Date: 09/07/16 Stop Date: 09/07/16 Status: Completed fentaNYL (ANES) Route: IV, Drug form: INJ, ONCE, Stop date: 09/07/16 16:50:00 CDT Start Date: 09/07/16 Stop Date: 09/07/16 Status: Completed Flomax 0.4 mg, 1 cap, Route: PO, Drug form: CAP, After Breakfast, Dosing Weight 118.182 , kg, Priority: NOW, Start date: 09/08/16 11:23:00 CDT, Duration: 30 day, Stop d ate: 10/08/16 8:30:00 CDT Notes: (Same As: Flomax) "Do Not Crush" Start Date: 09/08/16 Stop Date: 09/11/16 Status: Discontinued gabapentin 300 mg, 1 cap, Route: PO, Drug form: CAP, [id number], Dosing Weight 118.182, kg, St art date: 09/09/16 6:00:00 CDT, Duration: 30 day, Stop date: 10/08/16 18:00:00 C DT Notes: (Same as: Neurontin) Start Date: 09/09/16 Stop Date: 09/11/16 Status: Discontinued gabapentin 100 mg, 1 cap, Route: PO, Drug form: CAP, Q8H, Dosing Weight 112.727, kg, (CrCl > 60 ml/min), Start date: 09/07/16 16:00:00 CDT, Duration: 30 day, Stop date: 10/07/16 8:00:00 CDT Notes: (Same as: Neurontin) Start Date: 09/07/16 Stop Date: 09/09/16 Status: Discontinued gabapentin 300 mg oral capsule 300 mg = 1 cap, PO, Q12H, # 90 cap, 1 Refill(s) Start Date: 09/09/16 Status: Ordered glucagon 1 mg, Route: IM, Drug form: PDR/INJ, PRN, Dosing Weight 112.727, kg, PRN Blood G lucose Results, Start date: 09/07/16 13:49:00 CDT, Duration: 30 day, Stop date: 10/07/16 13:48:00 CDT Start Date: 09/07/16 Stop Date: 09/11/16 Status: Discontinued heparin 5,000 unit, 1 mL, Route: SUB-Q, Drug form: INJ, Q8H, Dosing Weight 112.727, kg, Start date: 09/07/16 16:00:00 CDT, Duration: 30 day, Stop date: 10/07/16 8:00:00 CDT Notes: porcine heparin Start Date: 09/07/16 Stop Date: 09/11/16 Status: Discontinued hydrALAZINE 10 mg, Route: IV, ONCE, Dosing Weight 112.727, kg, Start date: 09/07/16 14:25:00 CDT, Stop date: 09/07/16 14:25:00 CDT, Start Date: 09/07/16 Stop Date: 09/07/16 Status: Completed hydrALAZINE 20 mg, 1 mL, Route: IVP, Drug form: INJ, Q4H, Dosing Weight 112.727, kg, PRN Hyp ertension, Start date: 09/07/16 14:28:00 CDT, Duration: 30 day, Stop date: 10/07 14:27:00 CDT Notes: (Same as: Apresoline)Push over 5 minutes Start Date: 09/07/16 Stop Date: 09/11/16 Status: Discontinued hydrALAZINE 100 mg oral tablet 100 mg, 2 tab, Route: PO, Drug form: TAB, TID, Dosing Weight 118.182, kg, Start date: 09/08/16 9:00:00 CDT, Stop date: 10/07/16 17:00:00 CDT Notes: (Same as: Apresoline) May interfere w/enteral feedings Take With Food Start Date: 09/08/16 Stop Date: 09/11/16 Status: Discontinued Insulin regular 5 unit, 0.05 mL, Route: SUB-Q, Drug form: SOLN, Sliding Scale, Dosing Weight 112 .727, kg, PRN Blood Glucose Results, Start date: 09/07/16 13:49:00 CDT, Duration : 30 day, Stop date: 10/07/16 13:48:00 CDT Notes: (Same as: Humulin R) Roll in palms of hands gently; Do not shake vigorou sly. "single patient use only"(Restricted to patients requiring a dose > 60 units)WASTE: F/P - Black; E - Municipal Trash Bin Stable for 28 days at room temperatureExpires in days from Date Start Date: 09/07/16 Stop Date: 09/11/16 Status: Discontinued Insulin regular 4 unit, 0.04 mL, Route: SUB-Q, Drug form: SOLN, Sliding Scale, Dosing Weight 112 .727, kg, PRN Blood Glucose Results, Start date: 09/07/16 13:49:00 CDT, Duration : 30 day, Stop date: 10/07/16 13:48:00 CDT Notes: (Same as: Humulin R) Roll in palms of hands gently; Do not shake vigorou sly. "single patient use only"(Restricted to patients requiring a dose > 60 units)WASTE: F/P - Black; E - Municipal Trash Bin Stable for 28 days at room temperatureExpires in days from Date Start Date: 09/07/16 Stop Date: 09/11/16 Status: Discontinued Insulin regular 1 unit, 0.01 mL, Route: SUB-Q, Drug form: SOLN, Sliding Scale, Dosing Weight 112 .727, kg, PRN Blood Glucose Results, Start date: 09/07/16 13:49:00 CDT, Duration : 30 day, Stop date: 10/07/16 13:48:00 CDT Notes: (Same as: Humulin R) Roll in palms of hands gently; Do not shake vigorou sly. "single patient use only"(Restricted to patients requiring a dose > 60 units)WASTE: F/P - Black; E - Municipal Trash Bin Stable for 28 days at room temperatureExpires in days from Date Start Date: 09/07/16 Stop Date: 09/11/16 Status: Discontinued Insulin regular 3 unit, 0.03 mL, Route: SUB-Q, Drug form: SOLN, Sliding Scale, Dosing Weight 112 .727, kg, PRN Blood Glucose Results, Start date: 09/07/16 13:49:00 CDT, Duration : 30 day, Stop date: 10/07/16 13:48:00 CDT Notes: (Same as: Humulin R) Roll in palms of hands gently; Do not shake vigorou sly. "single patient use only"(Restricted to patients requiring a dose > 60 units)WASTE: F/P - Black; E - Municipal Trash Bin Stable for 28 days at room temperatureExpires in days from Date Start Date: 09/07/16 Stop Date: 09/11/16 Status: Discontinued Insulin regular 2 unit, 0.02 mL, Route: SUB-Q, Drug form: SOLN, Sliding Scale, Dosing Weight 112 .727, kg, PRN Blood Glucose Results, Start date: 09/07/16 13:49:00 CDT, Duration : 30 day, Stop date: 10/07/16 13:48:00 CDT Notes: (Same as: Humulin R) Roll in palms of hands gently; Do not shake vigorou sly. "single patient use only"(Restricted to patients requiring a dose > 60 units)WASTE: F/P - Black; E - Municipal Trash Bin Stable for 28 days at room temperatureExpires in days from Date Start Date: 09/07/16 Stop Date: 09/11/16 Status: Discontinued labetalol 5 mg, 1 mL, Route: IVP, Drug form: INJ, Q3H, Dosing Weight 112.727, kg, PRN Hype rtension, Start date: 09/07/16 14:29:00 CDT, Duration: 30 day, Stop date: 14:28:00 CDT Notes: Give bolus over 2-3 minutes.(Same as:Normodyne) Start Date: 09/07/16 Stop Date: 09/11/16 Status: Discontinued Lactated Ringers 1,000 mL 1,000 mL, Rate: 100 ml/hr, Infuse over: 10 hr, Route: IV, Dosing Weight 112.727 kg, Total Volume: 1,000, Start date: 09/07/16 13:31:00 CDT, Duration: 30 day, St op date: 10/07/16 13:30:00 CDT Start Date: 09/07/16 Stop Date: 09/07/16 Status: Discontinued Lasix 20 mg oral tablet 20 mg, 1 tab, Route: PO, Drug form: TAB, BID, Dosing Weight 118.182, kg, Start d ate: 09/08/16 9:00:00 CDT, Duration: 30 day, Stop date: 10/07/16 17:00:00 CDT Notes: (Same as: Lasix) May cause GI upset. Give with food or milk. Start Date: 09/08/16 Stop Date: 09/11/16 Status: Discontinued Levemir 15 unit, 0.15 mL, Route: SUB-Q, Drug form: SOLN, Q12H, Dosing Weight 118.182, kg , Start date: 09/07/16 21:00:00 CDT, Duration: 30 day, Stop date: 10/07/16 9:00: 00 CDT Notes: Same as LevemirDo not hold insulin without contacting prescriberWASTE: F/ P - Black; E - Municipal Trash Bin "single patient use only" Start Date: 09/07/16 Stop Date: 09/11/16 Status: Discontinued lidocaine (ANES) Route: IV, Drug form: INJ, ONCE, Stop date: 09/07/16 16:45:00 CDT Start Date: 09/07/16 Stop Date: 09/07/16 Status: Completed loperamide 4 mg, 2 cap, Route: PO, Drug form: CAP, ONCE, Dosing Weight 118.182, kg, Start d ate: 09/09/16 9:32:00 CDT, Stop date: 09/09/16 9:32:00 CDT Notes: (Same as: Imodium) MAX adult dose is 8 caps/day Start Date: 09/09/16 Stop Date: 09/09/16 Status: Completed loperamide 2 mg, 1 cap, Route: PO, Drug form: CAP, Q4H, Dosing Weight 118.182, kg, Start da te: 09/09/16 16:00:00 CDT, Duration: 30 day, Stop date: 10/09/16 12:00:00 CDT Notes: (Same as: Imodium) MAX adult dose is 8 caps/day Start Date: 09/09/16 Stop Date: 09/11/16 Status: Discontinued LR 1000 mL INJ (ANES) Route: IV, Total Volume: 1,000, Start date: 09/07/16 15:59:00 CDT, Stop date: 16:59:00 CDT Start Date: 09/07/16 Stop Date: 09/07/16 Status: Completed magnesium gluconate 500 mg, Route: PO, Drug form: TAB, BID, Dosing Weight 118.182, kg, Start date: 0 09/08/16 17:00:00 CDT, Duration: 30 day, Stop date: 10/08/16 9:00:00 CDT Start Date: 09/08/16 Stop Date: 09/08/16 Status: Canceled magnesium gluconate 1,000 mg, Route: PO, Drug form: LIQ, Daily, Dosing Weight 118.182, kg, Start harish e: 09/08/16 9:00:00 CDT, Duration: 30 day, Stop date: 10/07/16 9:00:00 CDT Start Date: 09/08/16 Stop Date: 09/08/16 Status: Discontinued magnesium oxide 400 mg, 1 tab, Route: PO, Drug form: TAB, Daily, Dosing Weight 118.182, kg, Star t date: 09/08/16 12:00:00 CDT, Duration: 3 doses or times, Stop date: 09/10/16 9 :00:00 CDT Notes: (Same as: Mag-Ox 400)Magnesium oxide 101er=425ht elemental magnesiumDose= ____mg magnesium oxide (___mg elemental magnesium) Start Date: 09/08/16 Stop Date: 09/10/16 Status: Discontinued melatonin 3 mg, 1 tab, Route: PO, Drug form: TAB, Bedtime, Dosing Weight 118.182, kg, PRN Sleep, Start date: 09/11/16 0:38:00 CDT, Duration: 30 day, Stop date: 10/11/16 0 :37:00 CDT Notes: (Same as: Melatonin) Start Date: 09/11/16 Stop Date: 09/11/16 Status: Discontinued methocarbamol 500 mg oral tablet 1,000 mg = 2 tab, PO, Q6H, X 7 day, # 56 tab, 0 Refill(s) Start Date: 09/09/16 Stop Date: 09/16/16 Status: Ordered metoclopramide (ANES) Route: IV, Drug form: INJ, ONCE, Stop date: 09/07/16 16:45:00 CDT Start Date: 09/07/16 Stop Date: 09/07/16 Status: Completed metoprolol 5 mg/5 ml INJ 5 mg, Route: IV, ONCE, Dosing Weight 118.182, kg, Start date: 09/07/16 18:07:00 CDT, Stop date: 09/07/16 18:07:00 CDT Start Date: 09/07/16 Stop Date: 09/07/16 Status: Completed MiraLax 17 gm, 1 pkt, Route: PO, Drug form: PWDR, Daily, Dosing Weight 112.727, kg, Star t date: 09/08/16 9:00:00 CDT, Duration: 30 day, Stop date: 10/07/16 9:00:00 CDT Notes: Dissolve in 8 oz of water or juice.(Same as: Miralax) Start Date: 09/08/16 Stop Date: 09/09/16 Status: Discontinued MiraLax oral powder for reconstitution 17 gm, PO, Daily, Dissolve in 8 oz. of water, X 7 day, # 12 ea, 1 Refill(s) Start Date: 09/09/16 Stop Date: 09/10/16 Status: Discontinued morphine Sulfate 4 mg, Route: IVP, ONCE, Dosing Weight 112.727, kg, Priority: STAT, Start date: 0 09/07/16 10:50:00 CDT, Stop date: 09/07/16 10:50:00 CDT Start Date: 09/07/16 Stop Date: 09/07/16 Status: Completed morphine Sulfate 4 mg, 1 mL, Route: IVP, Drug form: INJ, ONCE, Dosing Weight 112.727, kg, Priorit y: STAT, Start date: 09/07/16 12:48:00 CDT, Stop date: 09/07/16 12:48:00 CDT Notes: (Same as:MORPhine Sulfate) Start Date: 09/07/16 Stop Date: 09/07/16 Status: Completed morphine Sulfate 2 mg, 1 mL, Route: IVP, Drug form: INJ, Q4H, Dosing Weight 112.727, kg, PRN Pain Score 7-10, Start date: 09/07/16 13:31:00 CDT, Duration: 30 day, Stop date: 13:30:00 CDT Notes: (Same as:MORPhine Sulfate) Start Date: 09/07/16 Stop Date: 09/08/16 Status: Discontinued NIFEdipine 90 mg oral tablet, extended release 90 mg, 1 tab, Route: PO, Drug form: ERTAB, Daily, Dosing Weight 118.182, kg, Sta rt date: 09/08/16 9:00:00 CDT, Duration: 30 day, Stop date: 10/07/16 9:00:00 CDT Notes: (Same as: Adalat CC,Procardia XL)"Do Not Crush" "Avoid grapefruit and gr apefruit juice" Start Date: 09/08/16 Stop Date: 09/11/16 Status: Discontinued NIFEdipine 90 mg oral tablet, extended release 90 mg, Route: PO, Drug form: ERTAB, ONCE, Dosing Weight 112.727, kg, Start date: 09/07/16 14:25:00 CDT, Stop date: 09/07/16 14:25:00 CDT Start Date: 09/07/16 Stop Date: 09/07/16 Status: Completed NS (Bolus) IV 1,000 mL, 1,000 ml/hr, Infuse Over: 1 hr, Route: IV, 1,000, Drug form: INJ, ONCE , Priority: STAT, Dosing Weight 112.727 kg, Start date: 09/07/16 9:42:00 CDT, Du ration: 1 doses or times, Stop date: 09/07/16 9:42:00 CDT Start Date: 09/07/16 Stop Date: 09/07/16 Status: Completed ondansetron 4 mg, 2 mL, Route: IVP, Drug form: INJ, Q6H, Dosing Weight 112.727, kg, PRN Naus ea & Vomiting, Start date: 09/07/16 13:31:00 CDT, Duration: 30 day, Stop date: 10/07/16 13:30:00 CDT Notes: (Same as: Luis) MEDICATION WASTE Product Size: 4 mgProduct Was savana: ___ mg Start Date: 09/07/16 Stop Date: 09/11/16 Status: Discontinued ondansetron (ANES) Route: IV, Drug form: INJ, ONCE, Stop date: 09/07/16 16:40:00 CDT Start Date: 09/07/16 Stop Date: 09/07/16 Status: Completed oxybutynin 5 mg, 1 tab, Route: PO, Drug form: TAB, TID, Dosing Weight 118.182, kg, Priority : NOW, Start date: 09/08/16 17:58:00 CDT, Duration: 30 day, Stop date: 10/08/16 17:00:00 CDT Notes: Same as: Ditropan) Start Date: 09/08/16 Stop Date: 09/11/16 Status: Discontinued oxyCODONE 5 mg oral tablet 5 mg, 1 tab, Route: PO, Drug form: TAB, Q6H, Dosing Weight 112.727, kg, PRN Pain Score 7-10, Start date: 09/07/16 14:27:00 CDT, Duration: 30 day, Stop date: 14:26:00 CDT Notes: (Same as: Roxicodone) Start Date: 09/07/16 Stop Date: 09/08/16 Status: Discontinued phenylephrine (ANES) Route: IV, Drug form: INJ, ONCE, Stop date: 09/07/16 17:19:00 CDT Start Date: 09/07/16 Stop Date: 09/07/16 Status: Completed propofol (ANES) Route: IV, Drug form: INJ, ONCE, Stop date: 09/07/16 16:50:00 CDT Start Date: 09/07/16 Stop Date: 09/07/16 Status: Completed Robaxin 1,000 mg, 2 tab, Route: PO, Drug form: TAB, Q6Hnow, Dosing Weight 118.182, kg, S tart date: 09/09/16 6:00:00 CDT, Duration: 30 day, Stop date: 10/09/16 0:00:00 C DT Notes: (Same as:Robaxin) Start Date: 09/09/16 Stop Date: 09/11/16 Status: Discontinued Robaxin + sodium chloride 0.9% INJ 100 mL 1,000 mg, 10 mL, Route: IV, Drug form: INJ, Q8H, Dosing Weight 112.727, kg, PRN Muscle Spasms, Start date: 09/07/16 13:31:00 CDT, Duration: 30 day, Stop date: 0 10/07/16 13:30:00 CDT Notes: (Same as:Robaxin) Start Date: 09/07/16 Stop Date: 09/08/16 Status: Discontinued rocuronium (ANES) Route: IV, Drug form: INJ, ONCE, Stop date: 09/07/16 16:50:00 CDT Start Date: 09/07/16 Stop Date: 09/07/16 Status: Completed Saline Flush 0.9% 10 ml, Route: MISC, Drug Form: INJ, Dosing Weight 112.727, kg, PRN, PRN Line Flu sh, Start date: 09/07/16 13:31:00 CDT, Duration: 30 day, Stop date: 10/07/16 13: 30:00 CDT Notes: (Same as: BD Posiflush) Start Date: 09/07/16 Stop Date: 09/11/16 Status: Discontinued succinylcholine (ANES) Route: IV, Drug form: INJ, ONCE, Stop date: 09/07/16 16:45:00 CDT Start Date: 09/07/16 Stop Date: 09/07/16 Status: Completed tamsulosin 0.4 mg oral capsule 0.4 mg = 1 cap, PO, After Breakfast, # 14 cap, 0 Refill(s) Start Date: 09/09/16 Stop Date: 09/23/16 Status: Ordered tramadol 50 mg, 1 tab, Route: PO, Drug form: TAB, ONCE, Dosing Weight 112.727, kg, > 50 kg, Priority: STAT, Start date: 09/07/16 9:40:00 CDT, Stop date: 09/07/16 9: 40:00 CDT Notes: Not to exceed 400mg/day. (Same As: Ultram) Start Date: 09/07/16 Stop Date: 09/07/16 Status: Completed tramadol 50 mg, 1 tab, Route: PO, Drug form: TAB, Q6H, Dosing Weight 112.727, kg, PRN Katherine n Score 4-6, Start date: 09/07/16 13:31:00 CDT, Stop date: 10/07/16 13:30:00 CDT Notes: Not to exceed 400mg/day. (Same As: Ultram) Start Date: 09/07/16 Stop Date: 09/11/16 Status: Discontinued tramadol 50 mg, 1 tab, Route: PO, Drug form: TAB, Q6H, Dosing Weight 112.727, kg, Start d ate: 09/07/16 18:00:00 CDT, Duration: 30 day, Stop date: 10/07/16 12:00:00 CDT Notes: Not to exceed 400mg/day. (Same As: Ultram) Start Date: 09/07/16 Stop Date: 09/07/16 Status: Canceled tramadol 50 mg oral tablet 50 mg = 1 tab, PO, Q6H, PRN Pain Score 6-10, X 10 day, # 40 tab, 0 Refill(s) Start Date: 09/09/16 Stop Date: 09/19/16 Status: Ordered Tylenol 1,000 mg, 2 tab, Route: PO, Drug form: TAB, Q6H, Dosing Weight 112.727, kg, Star t date: 09/07/16 18:00:00 CDT, Duration: 30 day, Stop date: 10/07/16 15:00:00 CD T Notes: Max acetaminophen 4000 mg/day (4 gm/day). (Same as: Tylenol Extra Streng th) Start Date: 09/07/16 Stop Date: 09/10/16 Status: Discontinued Tylenol with Codeine #3 oral tablet 1 tab, Route: PO, Drug Form: TAB, Dosing Weight 118.182, kg, Q6H, Start date: 12:00:00 CDT, Duration: 30 day, Stop date: 10/10/16 6:00:00 CDT Notes: Do not exceed 4gm/day of acetaminophen. (Same as: Tylenol with Codeine # 3) Start Date: 09/10/16 Stop Date: 09/11/16 Status: Discontinued Tylenol with Codeine #3 oral tablet 1 tab, Route: PO, Drug Form: TAB, Dosing Weight 118.182, kg, ONCE, Start date: 0 09/11/16 0:43:00 CDT, Stop date: 09/11/16 0:43:00 CDT Notes: Do not exceed 4gm/day of acetaminophen. (Same as: Tylenol with Codeine # 3) Start Date: 09/11/16 Stop Date: 09/11/16 Status: Completed Tylenol with Codeine #3 oral tablet 1 tab, Route: PO, Drug Form: TAB, Dosing Weight 118.182, kg, Q6H, PRN Pain Score 1-3, Start date: 09/08/16 11:24:00 CDT, Duration: 30 day, Stop date: 10/08/16 1 1:23:00 CDT Notes: Do not exceed 4gm/day of acetaminophen. (Same as: Tylenol with Codeine # 3) Start Date: 09/08/16 Stop Date: 09/10/16 Status: Discontinued Zofran 4 mg, 2 mL, Route: IVP, Drug form: INJ, ONCE, Dosing Weight 112.727, kg, Priorit y: STAT, Start date: 09/07/16 9:43:00 CDT, Stop date: 09/07/16 9:43:00 CDT Notes: (Same as: Luis) MEDICATION WASTE Product Size: 4 mgProduct Was savana: ___ mg Start Date: 09/07/16 Stop Date: 09/07/16 Status: Completed Results BLOOD BANK RESULTS 1 2 3 Most recent to oldest [Reference Range]: A POS *Unknown* (09/07/16 3:04 PM) ABO/Rh Negative (09/07/16 3:04 PM) Antibody Scrn ELECTROLYTES 1 2 3 Most recent to oldest [Reference Range]: 142 mEq/L (09/09/16 3:48 AM) 143 mEq/L (09/08/16 6:32 AM) 140 mEq/L (09/07/16 10:34 AM) Sodium Lvl [135-145 mEq/L] 4.4 mEq/L (09/09/16 3:48 AM) 4.9 mEq/L (09/08/16 6:32 AM) 4.4 mEq/L (09/07/16 10:34 AM) Potassium Lvl [3.5-5.1 mEq/L] 113 mEq/L *HI* (09/09/16 3:48 AM) 115 mEq/L *HI* (09/08/16 6:32 AM) 112 mEq/L *HI* (09/07/16 10:34 AM) Chloride Lvl [95-109 mEq/L] 18 mEq/L *LOW* (09/09/16 3:48 AM) 18 mEq/L *LOW* (09/08/16 6:32 AM) 21 mEq/L *LOW* (09/07/16 10:34 AM) CO2 [24-32 mEq/L] 15.4 mEq/L (09/09/16 3:48 AM) 14.9 mEq/L (09/08/16 6:32 AM) 11.4 mEq/L (09/07/16 10:34 AM) AGAP [10.0-20.0 mEq/L] CHEM PANEL 1 2 3 Most recent to oldest [Reference Range]: 3.21 mg/dL *HI* (09/09/16 3:48 AM) 3.15 mg/dL *HI* (09/08/16 6:32 AM) 3.11 mg/dL *HI* (09/07/16 10:34 AM) Creatinine Lvl [0.50-1.40 mg/dL] 20 mL/min/1.73m2 1 *NA* (09/09/16 3:48 AM) 20 mL/min/1.73m2 2 *NA* (09/08/16 6:32 AM) 20 mL/min/1.73m2 3 *NA* (09/07/16 10:34 AM) eGFR 25 mg/dL *HI* (09/09/16 3:48 AM) 22 mg/dL (09/08/16 6:32 AM) 19 mg/dL (09/07/16 10:34 AM) BUN [7-22 mg/dL] 82 mg/dL (09/09/16 3:48 AM) 164 mg/dL *HI* (09/08/16 6:32 AM) 127 mg/dL *HI* (09/07/16 10:34 AM) Glucose Lvl [70-99 mg/dL] 5.4 g/dL *LOW* (09/09/16 3:48 AM) 6.2 g/dL *LOW* (09/07/16 10:34 AM) Total Protein [6.4-8.4 g/dL] 1.3 g/dL *LOW* (09/09/16 3:48 AM) 1.4 g/dL *LOW* (09/07/16 10:34 AM) Albumin Lvl [3.5-5.0 g/dL] 4.1 g/dL (09/09/16 3:48 AM) 4.8 g/dL *HI* (09/07/16 10:34 AM) Globulin [2.7-4.2 g/dL] 0.3 *LOW* (09/09/16 3:48 AM) 0.3 *LOW* (09/07/16 10:34 AM) A/G Ratio [0.7-1.6] 7.7 mg/dL *LOW* (09/09/16 3:48 AM) 8.0 mg/dL *LOW* (09/08/16 6:32 AM) 8.1 mg/dL *LOW* (09/07/16 10:34 AM) Calcium Lvl [8.5-10.5 mg/dL] 3.8 mg/dL (09/08/16 6:32 AM) Phosphorus [2.5-4.5 mg/dL] 1.6 mg/dL *LOW* (09/08/16 6:32 AM) Magnesium Lvl [1.8-2.4 mg/dL] 10 unit/L (09/09/16 3:48 AM) 10 unit/L (09/07/16 10:34 AM) ALT [0-65 unit/L] 12 unit/L (09/09/16 3:48 AM) 13 unit/L (09/07/16 10:34 AM) AST [0-37 unit/L] 103 unit/L (09/09/16 3:48 AM) 130 unit/L (09/07/16 10:34 AM) Alk Phos [39-136 unit/L] 0.1 mg/dL *LOW* (09/09/16 3:48 AM) 0.1 mg/dL *LOW* (09/07/16 10:34 AM) Bili Total [0.2-1.3 mg/dL] 0.1 mg/dL (09/09/16 3:48 AM) 0.0 mg/dL (09/07/16 10:34 AM) Bili Direct [0.0-0.3 mg/dL] 0.0 mg/dL (09/09/16 3:48 AM) 0.1 mg/dL (09/07/16 10:34 AM) Bili Indirect [0.0-1.0 mg/dL] 118 unit/L (09/07/16 10:34 AM) Lipase Lvl [73-393 unit/L] 0.7 mmol/L (09/07/16 10:34 AM) Lactic Acid WB [0.5-2.2 mmol/L] 1Result Comment: [...] be mul tiplied by the estimated BMI. URINE CHEM 1 2 3 Most recent to oldest [Reference Range]: Negative (09/07/16 3:13 PM) U Preg [Negative] URINE AND STOOL 1 2 3 Most recent to oldest [Reference Range]: Clear (09/09/16 3:48 AM) UA Turbidity [Clear] Light Yellow *NA* (09/09/16 3:48 AM) UA Color [Yellow] 6.0 (09/09/16 3:48 AM) UA pH [5.0-8.0] 1.007 (09/09/16 3:48 AM) UA Spec Grav [<=1.030] Negative mg/dL *NA* (09/09/16 3:48 AM) UA Glucose [Negative mg/dL] Negative (09/09/16 3:48 AM) UA Blood [Negative] Negative mg/dL *NA* (09/09/16 3:48 AM) UA Ketones [Negative mg/dL] >=300 mg/dL *ABN* (09/09/16 3:48 AM) UA Protein [Negative mg/dL] <=1.0 mg/dL *NA* (09/09/16 3:48 AM) UA Urobilinogen [0.1-1.0 mg/dL] Negative *NA* (09/09/16 3:48 AM) UA Bili [Negative] Negative (09/09/16 3:48 AM) UA Leuk Est [Negative] Negative (09/09/16 3:48 AM) UA Nitrite [Negative] 2 /HPF (09/09/16 3:48 AM) UA WBC [0-5 /HPF] 2 /HPF (09/09/16 3:48 AM) UA RBC [0-2 /HPF] Occasional /HPF *NA* (09/09/16 3:48 AM) UA Bacteria [None Seen /HPF] None Seen *NA* (09/09/16 3:48 AM) UA Sq Epi Occasional /HPF *NA* (09/09/16 3:48 AM) UA Amorph Tamera [None Seen /HPF] Few /LPF *NA* (09/09/16 3:48 AM) UA Mucus [None Seen /LPF] 1 /LPF *NA* (09/09/16 3:48 AM) UA Gran Cast HEMATOLOGY 1 2 3 Most recent to oldest [Reference Range]: 8.5 K/CMM (09/09/16 3:48 AM) 10.0 K/CMM (09/08/16 6:32 AM) 10.4 K/CMM (09/07/16 10:34 AM) WBC [3.7-10.4 K/CMM] 2.85 M/CMM *LOW* (09/09/16 3:48 AM) 3.12 M/CMM *LOW* (09/08/16 6:32 AM) 3.35 M/CMM *LOW* (09/07/16 10:34 AM) RBC [4.20-5.40 M/CMM] 8.2 g/dL *LOW* (09/09/16 3:48 AM) 8.9 g/dL *LOW* (09/08/16 6:32 AM) 9.5 g/dL *LOW* (09/07/16 10:34 AM) Hgb [12.0-16.0 g/dL] 25.1 % *LOW* (09/09/16 3:48 AM) 27.9 % *LOW* (09/08/16 6:32 AM) 29.4 % *LOW* (09/07/16 10:34 AM) Hct [36.0-48.0 %] 88.0 fL (09/09/16 3:48 AM) 89.5 fL (09/08/16 6:32 AM) 87.8 fL (09/07/16 10:34 AM) MCV [80.0-98.0 fL] 28.6 pg (09/09/16 3:48 AM) 28.5 pg (09/08/16 6:32 AM) 28.3 pg (09/07/16 10:34 AM) MCH [27.0-31.0 pg] 32.5 g/dL (09/09/16 3:48 AM) 31.8 g/dL *LOW* (09/08/16 6:32 AM) 32.2 g/dL (09/07/16 10:34 AM) MCHC [32.0-36.0 g/dL] 15.0 % *HI* (09/09/16 3:48 AM) 14.8 % *HI* (09/08/16 6:32 AM) 14.4 % (09/07/16 10:34 AM) RDW [11.5-14.5 %] 357 K/CMM (09/09/16 3:48 AM) 402 K/CMM (09/08/16 6:32 AM) 415 K/CMM (09/07/16 10:34 AM) Platelet [133-450 K/CMM] 7.6 fL (09/09/16 3:48 AM) 7.8 fL (09/08/16 6:32 AM) 7.2 fL *LOW* (09/07/16 10:34 AM) MPV [7.4-10.4 fL] 53.2 % (09/09/16 3:48 AM) 82.1 % *HI* (09/08/16 6:32 AM) 70.5 % (09/07/16 10:34 AM) Segs [45.0-75.0 %] 38.3 % (09/09/16 3:48 AM) 15.5 % *LOW* (09/08/16 6:32 AM) 20.8 % (09/07/16 10:34 AM) Lymphocytes [20.0-40.0 %] 5.4 % (09/09/16 3:48 AM) 1.8 % *LOW* (09/08/16 6:32 AM) 6.4 % (09/07/16 10:34 AM) Monocytes [2.0-12.0 %] 2.4 % (09/09/16 3:48 AM) 0.1 % (09/08/16 6:32 AM) 1.4 % (09/07/16 10:34 AM) Eosinophils [0.0-4.0 %] 0.7 % (09/09/16 3:48 AM) 0.5 % (09/08/16 6:32 AM) 0.9 % (09/07/16 10:34 AM) Basophils [0.0-1.0 %] 4.5 K/CMM (09/09/16 3:48 AM) 8.2 K/CMM *HI* (09/08/16 6:32 AM) 7.4 K/CMM (09/07/16 10:34 AM) Segs-Bands # [1.5-8.1 K/CMM] 3.3 K/CMM (09/09/16 3:48 AM) 1.6 K/CMM (09/08/16 6:32 AM) 2.2 K/CMM (09/07/16 10:34 AM) Lymphocytes # [1.0-5.5 K/CMM] 0.5 K/CMM (09/09/16 3:48 AM) 0.2 K/CMM (09/08/16 6:32 AM) 0.7 K/CMM (09/07/16 10:34 AM) Monocytes # [0.0-0.8 K/CMM] 0.2 K/CMM (09/09/16 3:48 AM) 0.1 K/CMM (09/07/16 10:34 AM) Eosinophils # [0.0-0.5 K/CMM] 0.1 K/CMM (09/09/16 3:48 AM) 0.1 K/CMM (09/08/16 6:32 AM) 0.1 K/CMM (09/07/16 10:34 AM) Basophils # [0.0-0.2 K/CMM] MOLECULAR DIAGNOSTIC 1 2 3 Most recent to oldest [Reference Range]: Negative (09/10/16 12:20 AM) C difficile DNA [Negative] Immunizations Given and Recorded Vaccine Date Status Refusal Reason influenza virus vaccine, inactivated 01/08/16 G iven pneumococcal 23-valent vaccine 01/08/16 Given Procedures Procedure Date Related Diagnosis Body Site Amputation1 section 12 toes in R foot Social History Social History Type Response Substance Abuse Use: None. Alcohol Current, Previous treatment : None. Alcohol use interferes with work or home: No. Drinks more than intended: N o. Others hurt by drinking: No. Ready to change: No. Household alcohol concerns: No.1 Smoking Status Never smoker; Type: Cigaret rosie; Exposure to Tobacco Smoke None; Cigarette Smoking Last 365 Days No; Reg Smoking C essation Counseling No 1Social drinker Assessment and Plan Extracted from: Title: EGS Progress Note Author: Nicolette Novoa MD Date: 09/10/16 EGS Progress Note Date: 09/10/16 Chief Complaint: "My head hurts" Interval History: Pt had intractable diarrhea yesterday, thought to be 2/2 oral magnesium replacement. Pt continues to complain of different ailments, however, and frequently requests IV pain medication. Physical Exam: VitalsTmp(F)[id number] 09/10 08:[id number]--- 09/10 04:[id number]--- 09/10 00:[id number]/[id number]--- 09/09 20:[id number]--- 09/09 15:[id number]--- 24 Hr Tmax: 99.4F (37.44c) at 09/10 00:1 9Vital Signs are the last 5 in the past 48 hours. General Appearance: Laying in bed, in distress due to pain Chest: Unlabored respirations on room air CV: Regular rate and rhythm Abd: Soft, nondistended, obese abdomen. Tender to palpation in suprapubic area. Incisions intact with dermabond in place. Interval Laboratory Results: None Assessment: Gisela is a 40 y/o woman who presented with symptomatic cholelithiasis s/p lap nikolai, now on POD #3. Plan: -Urinary retention: -Placed anderson -oxybutynin -d/c home with anderson and f/u urology in 1 week vs void trial tomorrow -Pain: multimodal therapy -HTN: Continue home meds, PRN hydralazin e & labetalol -IS at the bedside -Pain: start multimodal pain therapy -Bowel regimen: docusate, miralax, PRN b isacodyl suppository -Diabetes: -Scheduled and sliding scale insulin -CKD: avoid nephrotoxic meds, needs neph rology follow up outpatient -DVT ppx: SQH Dispo: Home today vs samantha Novoa MD MSO: [id number] Pager: [phone] Addendum TRAUMA ATTENDING ADDENDUM by I have seen and examined marvin kasia with provider and concur with their findings and plan. Paulino, Diarrhea yesterday most lik maricarmen 2/2 po mag oxide. D/C, once diarrhea stops ok to Abdullahi discharge. otherwise doing well, tolerating diet, incisions c/d/i. Amrik COCHRAN DOS 09/10/2016 on Abdullahi Mclain III, MD MSO [id number] 09/10/2016 15:01 Extracted from: Title: Consult Note Author: Gladys Lazo DO Date : 09/07/16 Assessment/Plan 1.Symptomatic cholelithiasis to OR for cholecystectomy 2.DM (diabetes mellitus) pt not taking levemir as prescribed will restart it how she is taking it at home 15 units q12h continue SSI, most recent A1c is controlled 3.CHF - Congestive heart failure with EF 55-60% and concentric hypertrophy consistent with diastolic heart failure, resume home lasix dose resume coreg, no acute exacerbation noted 4.HTN - Hypertension pt not compliant with medications resumenifedipine, hydralazine, coreg and lasix 5.Hyperlipidemia resume lipitor 6.DM type 2 causing CKD stage 4 diabetes management as per above, renal function appears to be a recent baseline between 3-3.5, will need renal follow up as an outpatient Abdominal pain, colicky due to symptomatic cholelithiasis, management per primary team, pain control per primary team Biliary colic Intractable right upper quadrant abdominal pain DVT ppx: Heparin sc [facility] hospitalist is a finance consultant, pleasepage [phone] questions or concerns. Extracted from: Title: EGS H&P Author: Nicolette Novoa MD Date : 09/07/16 EGS History & Physical Name: Gisela Hernandez Attending Physician: Duglas Joy Admission Diagnosis: Symptomatic cholelithiasis, Intractable abdominal pain Chief Complaint: "My stomach hurts so bad" HPI: Ms. Hernandez is a 40 y/o woman with extensive PMH of IDDM, HTN, CKD, HLD and diabetic Charcot foot s/p R BKA who presents to the ED today with severe RUQ pain. Patient has been to the [place] ED 10 times within the past 1.5 months due to abdominal pain. She was recently admitted to [facility] under the medicine service and surgery was consulted. After extensive workup including HIDA scan, it was decided that the pt would see her PCP to optimize her comorbidities and follow up in surgery clinic for outpatient elective cholecystectomy. She has an appointment scheduled at [facility] surgery clinic next . Pt was discharged on 09/03 and did well until 2AM this morning when she had sudden onset severe RUQ/epigastric pain. She has vomited multiple times overnight and also had watery diarrhea. She denies hematemsis, hematochezia, melena, fevers, chills, or constitutional symptoms. She reports the pain is currently 10/10, comes and goes in waves, and has not improved after recent IV morphine dose. In the ED she has been afebrile. Labs showed normal WBC and LFTS with normal lipase and bilirubin. She is tachycardic and hypertensive with a diastolic BP of 133. The patient would like her gallbladder removed due to her intractable pain. Past Medical History: IDDM, HTN, CKD, HLD and right Charcot foot Past Surgical History: Right BKA, x4 Allergies: NKDA Meds: See MAR Social History: Alcohol Details: Current, Previous treatment: None. Alcohol use interferes with work or home: No. Drinks more than intended: No. Others hurt by drinking: No. Ready to change: No. Household alcohol concerns: No.; Comment(s): Social drinker Tobacco Details: Use: Never smoker. Tobacco smoke exposure: None. Did the Patient Smoke Cigarettes Anytime During the Last 365 Days? No. Cessation Counseling Provided? No. Substance Abuse Details: Use: Past. Type: Cocaine. IV drug use: No. Drug use interferes with work/home: No. Ready to change: No. ROS: Constitutional: No fevers or fatigue, + weight loss 25 lbs over past 1.5 months HEENT: No vision changes, hearing loss, or rhinorrhea Respiratory: No cough, wheezing or shortness of breath Cardiovascular: No angina, palpitations, or orthopnea Gastrointestinal: + per HPI Genitourinary: No dysuria, polyuria, or oliguria Integumentary: No rashes, lesions, or skin changes Extremities: No edema, weakness, or claudication Neurologic: No headache, difficulty speaking, or paralysis Heme/Lymph: No easy bruising, easy bleeding, or blood clots Endocrine: No polydipsia, palpitations, or weight gain Psychiatric: No depression, psychosis, or mood changes Physical Exam: VitalsTmp(F)[id number] 09/07 14:[id number]--- 09/07 13:04----[id number]--- 09/07 11:05----[id number]/133--100--- 09/07 09:[id number]--- 24 Hr Tmax: 98.2F (36.78c) at 09/07 14:1 4Vital Signs are the last 5 in the past 48 hours. General: Awake and oriented to person/place/time. No acute distress. Head: No lacerations, abrasions, or swelling. EENT: Extraocular movements intact. Pupils equally round and reactive to light. Neck: Supple; full ROM. CV: Regular rate and rhythm. Pulm: Unlabored respirations on room air. Abdomen: Soft, nondistended, obese abdomen. Well-healed vertical midline lower abdominal incision Extremities: s/p R BKA with well-healed stump. 2+ pulses in other 3 extremities. LLE 2+ pitting edema up to the knee. Neuro: CN II-XII grossly intact Labs: Lactic Acid WB0.7 Glucose Btc128 H BUN19 Creatinine Lvl3.11 H Sodium Ytr079 Potassium Lvl4.4 Chloride Tzr375 H CO221 L AGAP11.4 Calcium Lvl8.1 L eGFR20 Lipase Few528 Total Protein6.2 L Albumin Lvl1.4 L Bili Total0.1 L Bili Direct0.0 Bili Indirect0.1 Alk Xsiv552 AST13 ALT10 Globulin4.8 H A/G Ratio0.3 L WBC10.4 RBC3.35 L Hgb9.5 L Hct29.4 L MCV87.8 MCH28.3 MCHC32.2 RDW14.4 Iynbebnp827 MPV7.2 L Segs70.5 Monocytes6.4 Tjedewgmnkt03.8 Eosinophils1.4 Basophils0.9 Segs-Bands #7.4 Lymphocytes #2.2 Monocytes #0.7 Eosinophils #0.1 Basophils #0.1 Imaging: EXAM: Tc99m HIDA scan: DATE: 08/31/2016 2:15 PM INDICATION:RUQ pain COMPARISON: none TECHNIQUE: After the intravenous injection of 5.9 mCi of Tc 99m Choletec, immediate dynamic flow images was followed by continuous dynamic imaging of the anterior abdomen for 1 hour. At 60 min, 2.5 micrograms of Kinevac, a synthetic CCK analog, was given by slow intravenous injection. Further continuous dynamic imaging of the anterior abdomen was obtained for 30 minutes. Gall bladder ejection fraction was computer calculated based on counts in the gall bladder pre and post CCK. FINDINGS: There is normal perfusion to the liver. Radiotracer uptake and excretion by the liver is normal , and gallbladder and bowel activity is seen in timely fashion, excludes cystic duct obstruction and biliary obstruction. There is decreased gall bladder contractility and reduced gallbladder ejection fraction after CCK of 27.3 % (EF normal range is >35%). Impression IMPRESSION: 1. No evidence of acute cholecystitis (c ystic duct obstruction). 2. No evidence of biliary obstruction. 3. Reduced gall bladder contractility and reduced gall bladder ejection fraction of 27 % after CCK is most consistent with chronic cholecystitis or biliary dyskinesia. Transthoracic Echo Report GISELA LEONG Exam Date: 08/30/2016 06:45 FINDINGS Left Ventricle Study enhanced with Optison contrast. The left ventricle was normal in size and function. Mild concentric left ventricular hypertrophy. The left ventricular wall motion is normal. LVEF is 60 - 64%. Diastolic function cannot be assessed due to E/A fusion. Right Ventricle The right ventricle was normal in size and function. Right Atrium The right atrium was normal in size. Left Atrium The left atrium was normal in size. IAS Mitral Valve Structurally normal mitral valve without significant stenosis or prolapse. There is trace regurgitation. Aortic Valve Structurally normal trileaflet aortic valve without significant stenosis. There is no regurgitation. Tricuspid Valve Structurally normal tricuspid valve without significant stenosis or prolapse. There is trace regurgitation. RVSP could not be estimated due to insufficient TR jet. Pulmonic Valve Not well visualized. No significant stenosis. There is trace regurgitation. Pericardium Normal pericardium without effusion. Aorta Normal aortic root for body surface area. IVC Normal sized IVC. CONCLUSIONS Study enhanced with Optison contrast. Left ventricle is normal in size and systolic function. Mild concentric left ventricular hypertrophy. No wall motion abnormalities. LVEF is estimated at 60- 64%. Diastolic function cannot be assessed due to E/A fusion. Right ventricle is normal in size and systolic function. Both atria are normal in size. No significant hemodynamic valvular abnormalities. RVSP could not be estimated due to insufficient TR jet. No pericardial effusion. No prior study available for comparison. EXAM: XR CHEST 1 VIEW DATE: 09/07/2016 11:18 AM CDT IMPRESSION: No acute cardiopulmonary abnormality. EXAM: US ABDOMEN LIMITED DATE: 09/07/2016 11:15 AM CDT IMPRESSION: 1. Small gallstone within a mildly dist ended gallbladder seen again. No sonographic evidence for acute cholecystitis. 2. Mild hepatomegaly. Assessment: Ms. Hernandez is a 40 y/o woman with extensive PMH of IDDM, HTN, CKD, reported CHF (most recent Echo w/ EF 60-64%) and diabetic Charcot foot s/p R BKA who presents with intractable symptomatic cholelithiasis. Plan: -Admit to EGS under observation -Posted for lap possible open cholecyste ctomy, today vs tomorrow -Informed consent was obtained, risks an d benefits of the procedure were discussed with the pt and all of their questions were answered -NPO, LR @ 100/hr -Pain: start multimodal pain therapy -Bowel regimen: docusate, miralax, PRN b isacodyl suppository -Diabetes: -Last HbA1c -Sliding scale insulin -HTN: PRN hydralazine & labetalol, home meds -CKD: avoid nephrotoxic meds -Will consult medicine due to extensive comorbities -DVT ppx: [facility] Nicolette Novoa MD MSO: [id number] Pager: [phone] I have seen and examined the patient. I have reviewed the resident's note and agree with the assessment and plan. Biliary diskinesia vs chronic cholecystitis with intractable RUQ pain. In and out of the hospital 6-7 times over the last year. Lengthy discussion with the patient regarding surgery and how all her symptoms may not be resolved with her gallbladder removal. She understands and agrees. Plan for laparoscopic possible open cholecystectomy. Addendum ATTENDING ATTESTATION: by Benita, I have seen and examined th e patient with the above provider (resident/fellow). Duglas Futhermore, I concur with slim white findings and plan as noted above. Javi COCHRAN on 09/07/2016 17:31
--- OUTSIDE RECORDS SUMMARY | 2019-09-10 20:09 | XMS REPORT | Continuity of Care Document ---
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 Role Phone [facility] Information Exchange Unavailable Un available Problems Problem Status Onset Date Classification Date Reported Comments Source SOB Active 0 08/17/2019 [facility] ,[facility] ANEMIA,HYPERKALEMIA,ESRD NEEDING DIALYSI Active 08/17/2019 [facility] HX OF RT BKA,CHEST PAIN,ANEMIA,HYPERKALE Active 08/17/2019 [facility] Fluid overload, unspecified 01/06/2019 01/09/2019 [place],[facility] End stage renal disease 01/06/2019 01/09/2019 [facility], [place],[facility] Hypertensive emergency 01/06/2019 01/09/2019 [place],[facility] Acute pulmonary edema 01/06/2019 01/09/2019 [facility] FLUID OVERLOAD, HYPERTENSIVE EMERGENCY, Active 01/06/2019 [facility] SHORTNESS OF BREATH Active 07/18/2018 [facility] ESRD, DYSPNEA Active 07/18/2018 [facility] ACUTE HYPOXEMIC RESPIRATORY FAILURE, HYP Active 06/25/2018 [facility] CHEST PAIN Active 06/23/2018 [facility] VOLUME OVERLOAD, DYSPNEA, PNEUMONIA, HYP Active 06/17/2018 [facility] Bloodstream infection due to central johnson ous catheter, initial encounter 11/21/2017 06/01/2018 [facility] ACUTE PULMONARY EDEMA, ACUTE RESPIRATORY Active 09/16/2017 [facility] DIFFICULTY BREATHING Active 09/16/2017 [facility] Essential (primary) hypertension 08/16/2017 08/20/2017 [place] ESRD Active 08/15/2017 [facility] HYPERTENSIVE EMERGENCY, VOLUME OVERLOAD, Active 06/27/2017 [facility] HYPERTENSION Active 06/27/2017 [facility] BREATHING PROBLEMS /ABDOMINAL PAIN Active 06/14/2017 [facility] ESRD NEEDING DIALYSIS Active 06/14/2017 [facility] HYPERTENSIVE EMERGENCY Active 04/11/2017 [facility] URINARY TRACT INFECTION, SITE NOT SPECIF Active 01/13/2017 [facility] ABD, VAGINAL Active 01/13/2017 [facility] UTI Active 0 01/03/2017 [facility] ABD. PAIN Active 01/03/2017 [facility] Nausea with vomiting, unspecified 12/27/2016 12/30/2016 [place] Unspecified abdominal pain 12/27/2016 12/30/2016 [facility] [place] ABDOMINAL PAIN Active 12/27/2016 [facility] ,[facility] ABD PAIN/ VOMITTING Active 12/20/2016 [facility] CHEST PAIN/VOMITING Active 12/13/2016 [facility] GASTROPARESIS Active 12/13/2016 [facility] Escherichia coli (organism) Ac tive 12/06/2016 Problem 08/20/2019 urine - 12/06/16 urine - 09/15/16 (ESBL) E.coli, 09/15/2016 Problem added by Discern Expert. [facility], [place], [place],[facility] Vancomycin Resistant Enterococcus (organism) Active 12/06/2016 Problem 08/20/2019 urine - 12/06/16 Problem added by Discern Expert. [facility], [place], [place],[facility] OTHER Active 12/05/2016 [facility] BECKI, ACUTE VOMITTING Active 12/05/2016 [facility] ABD WALL CELLULITIS, RENAL INSUFFICIENCY Active 10/22/2016 [facility] Klebsiella (organism) Active 10/11/2016 Problem 08/20/2019 urine - 10/11/16 (ESBL) Blood, 03/29/2016 Problem added by Discern Expert. [facility], [place],[facility] ABD PAIN POST SURGICAL Active 10/10/2016 [facility] ABD PAIN POST SURGICAL, ABD PAIN Active 10/10/2016 [facility] INTRACTABLE ABDOMINAL PAIN, MORBID OBESI Active 10/02/2016 [facility] COMPLICATED UTI Active 09/15/2016 [facility] ABD PAIN Active 09/07/2016 [facility] Colic 08/2608/29/2016 [facility] Calculus of gallbladder without cholecys titis without obstruction 08/25/2016 08/28/2016 [facility] ADOMINAL PAIN, HEADACHE Active 08/24/2016 [facility] STOMACH/CHEST PAIN Active 08/21/2016 [facility] Biliary colic (disorder) Resol ángel 08/16/2016 Problem 08/20/2019 [facility], [place], [place], [place] BACK PAIN Active 08/16/2016 [facility] GALL STONES/BACK PAIN Active 08/10/2016 [facility] GALLSTONE Active 08/07/2016 [facility] HEADACHES Active 08/05/2016 [facility] Right upper quadrant pain 08/02/2016 08/06/2016 [facility] Acute cystitis without hematuria 07/27/2016 07/30/2016 [facility] BACK PAINS Active 07/26/2016 [facility] Pain in right leg 07/23/2016 07/26/2016 [facility] FALL Active 07/22/2016 [facility] DYSPNEA Active 07/15/2016 [facility] OSTEO R ANKLE AND FOOT Active 06/27/2016 [facility] LEG INJURY Active 06/27/2016 [facility] RGHT FOOT INJURY Active 06/21/2016 [facility] R ANKLE FX Active 06/21/2016 [facility] OSTEOMYELITIS, HYPERTENSION, SOB Active 06/12/2016 [facility] LEG PAIN Active 05/31/2016 [facility] Discharge Diagnosis: Leg pain 05/30/2016 06/02/2016 [facility] LEG PAIN/SOB Active 05/29/2016 [facility] Discharge Diagnosis: Leg pain, right 05/27/2016 05/30/2016 [facility] LEG PAIN/CHEST PAIN Active 05/27/2016 [facility] Discharge Diagnosis: LUQ abdominal pain 04/19/2016 04/22/2016 [facility] OSTEOMYELITIS ANKLE FOOT SEPSIS Active 03/14/2016 [facility] FEVER Active 03/14/2016 [facility] RESPIRATORY DISTRESS Active 02/19/2016 [facility] Discharge Diagnosis: Osteomyelitis 02/02/2016 02/05/2016 [facility] RIGHT LEG PAIN Active 02/01/2016 [facility] Discharge Diagnosis: Anterior leg pain 01/10/2016 01/13/2016 [facility] LEG AND SHOULDER PAIN Active 01/10/2016 [facility] SEPSIS, OSTEOMYELITIS Active 11/27/2015 [facility] OSTEOMYELITIS Active 11/01/2015 [facility] Chronic kidney disease (disorder) Resolved 09/01/2015 Problem 08/20/2019 [facility], [place], [place],[facility] Methicillin resistant Staphylococcus aureus (organism) Active 11/29/2013 Problem 08/20/2019 Left buttock absces s, 11/29/2013 Problem added by Discern Expert. [facility] Congestive heart failure (disorder) Active 08/31/2009 Problem 10/15/2016 [facility] Hypertensive disorder, systemic arterial (disorder) Resolved 08/31/2009 Problem 08/20/2019 [facility] Cellulitis of abdominal wall 10/29/2016 [facility] Left ventricular failure 09/22/2017 [facility] Other constipation 09/22/2017 [facility] Hypertensive urgency 09/22/2017 [facility] Pure hypercholesterolemia, unspecified 10/04/2017 [facility] Hyperkalemia 10/04/2017 [facility] Dependence on renal dialysis 10/04/2017 [facility] Patient's other noncompliance with medication regimen 09/22/2017 [facility] Malingerer [conscious simulation] 09/22/2017 [facility] Urinary tract infection, site not specified 01/13/2017 [facility], [facility] Neuropathy (disorder) Active Problem 02/28/2016 [facility] [place] Anxiety (finding) Resolved Problem 08/20/2019 [facility], P [place],[facility] Chronic depression (disorder) Resolved Problem [facility], [place],[facility] Diabetes mellitus (disorder) R esolved Problem [facility], [place],[facility] Kidney disease (disorder) Reso lved Problem [facility], [place],[facility] 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, [place],[facility] Hypercholesterolemia (disorder) Resolved Problem [facility] Hyperlipidemia (disorder) Reso lved Problem [facility], [place],[facility] Left heart failure (disorder) Active Problem [facility], [place],[facility] Metabolic acidosis (disorder) Active Problem [facility], [place],[facility] Pancreatitis (disorder) Resolv ed Problem [facility], [place],[facility] Heart failure, unspecified 10/04/2017 [facility] Chronic pulmonary edema 10/04/2017 [facility] skilled nursing (current) use of insulin 10/04/2017 [facility] Osteomyelitis (disorder) Active Problem 08/14/2016 [facility] Other Gram-negative sepsis 06/01/2018 [facility] Severe sepsis with septic shock 06/01/2018 [facility] Acute respiratory failure with hypoxia 06/01/2018 [facility] Hypertensive heart and chronic kidney di sease with heart failure and with stage 5 chronic kidney disease, or end stage renal disease 06/01/2018 [facility] Chronic diastolic (congestive) heart failure 06/01/2018 [facility] Opioid dependence, uncomplicated 06/01/2018 [facility] Hypertensive crisis, unspecified 06/01/2018 [facility] Acidosis 06/01/2018 [facility] Hyperlipidemia, unspecified 06/01/2018 [facility], [place] Type 2 diabetes mellitus with diabetic c hronic kidney disease 06/01/2018 [facility] Acquired absence of right leg below knee 06/01/2018 [facility], [place] Type 2 diabetes mellitus with diabetic a utonomic (poly)neuropathy 06/01/2018 [facility] Gastroparesis 06/01/2018 [facility] Patient's noncompliance with other medic al treatment and regimen 06/01/2018 [facility] Anxiety disorder, unspecified 06/01/2018 [facility], [place] Major depressive disorder, single episode, unspecified 06/01/2018 [facility] Anemia in chronic kidney disease 06/01/2018 [facility], [place] Patient's noncompliance with renal dialysis 06/01/2018 [facility], [place] Type 2 diabetes mellitus with hyperglycemia 06/01/2018 [facility], [place] Anemia, unspecified 08/20/2019 [facility] OSTEOMYELITIS, UNSPECIFIED Act anitra [facility] SEPSIS DUE TO UNSPECIFIED STAPHYLOCOCCUS Active [facility] ACUTE RESPIRATORY DISTRESS SYNDROME Active [facility] SHORTNESS OF BREATH Active [facility] OTH FRACTURE OF RIGHT LOWER LEG, INIT FO Active [facility] SUBACUTE OSTEOMYELITIS, RIGHT ANKLE AND Active [facility] ILLNESS, UNSPECIFIED Active [facility] URINARY TRACT INFECTION, SITE NOT SPECIF Active [facility] UNSPECIFIED ABDOMINAL PAIN Act anitra [facility] CELLULITIS OF ABDOMINAL WALL A ctive [facility] ACUTE KIDNEY FAILURE, UNSPECIFIED Active [facility] GASTROPARESIS Active [facility] ACUTE PYELONEPHRITIS Active [facility] DISORDER OF KIDNEY AND URETER, UNSPECIFI Active [facility] ACUTE PULMONARY EDEMA Active [facility] ACUTE RESPIRATORY FAILURE, UNSP W HYPOXI Active [facility] HYPERTENSIVE EMERGENCY Active [facility] PNEUMONIA, UNSPECIFIED ORGANISM Active [facility] ACUTE RESPIRATORY FAILURE WITH HYPOXIA Active [facility] ESSENTIAL (PRIMARY) HYPERTENSION Active [facility] [place] FLUID OVERLOAD, UNSPECIFIED Ac tive [facility] END STAGE RENAL DISEASE Active [facility] DYSPNEA, UNSPECIFIED Active [facility] ,[facility] ANEMIA, UNSPECIFIED Active [facility] HYPERKALEMIA Active [facility] Medications Medication Details Route Status Patient Instructions Ordering Provider Order Date Source Levofloxacin 500 MG Oral Tablet [Levaquin] 500 mg = 1 tab, PO, Q48H, X 10 day, # 5 tab, 0 Refill(s), Pharmacy: [facility][id number] Active 08/19/2019 [facility] Calcitriol Notes: (Same As: Ro caltrol) No Longer Active 08/19/2019 [facility] pantoprazole 40 mg, 1 tab, Rou te: PO, Drug form: ECTAB, Before Breakfast, Dosing Weight 118.636, kg, Start date: 08/19/19 7:30:00 CDT, Duration: 30 day, Stop date: 09/17/19 7:30:00 CDT No Longer Active 08/19/2019 [facility] atorvastatin Notes: (Same as: Lipitor) Inactive 08/19/2019 [facility] Levaquin 750 mg, Route: PO, Dr ug form: TAB, [id number], Dosing Weight 118.636, kg, For Renal dosing CrCl < 20ml/min. See comment tab., Start date: 08/18/19 18:00:00 CDT, Duration: 7 day, Stop date: 08/24/19 18:00:00 CDT, ABX Indication: Pneumonia Inactive 08/18/2019 [facility] Guaifenesin 20 MG/ML Oral Solution 200 mg = 10 mL, PO, Q4H, PRN Cough, X 7 day, # 240 mL, 0 Refill(s), Pharmacy: [facility] #[id number] Active 08/18/2019 [facility] Furosemide Notes: (Same as: La six) May cause GI upset. Give with food or milk. Inactive 08/18/2019 [facility] Epogen Notes: (Same as: Procri t) epoetin mira 3000 unit/1 ml VL. Non-formulary For dialysis use only WASTE: F/P - Red; E -Red MEDICATION WASTE Product Size: 3000 unit Product Wasted: ___ unit Inactive 08/18/2019 [facility] carvedilol Notes: Give with fo od. (Same As: Coreg) Inactive 08/18/2019 [facility] Hydralazine Hydrochloride 50 MG Oral Tablet Notes: (Same as: Apresoline) May interfere w/enteral feedings Take With Food Inactive 08/18/2019 [facility] Epogen Notes: (Same as: Procri t) epoetin mira 3000 unit/1 ml VL. Non-formulary For dialysis use only WASTE: F/P - Red; E -Red MEDICATION WASTE Product Size: 3000 unit Product Wasted: ___ unit Inactive 08/18/2019 [facility] Dulcolax Laxative Notes: (Same As: Dulcolax, Correctol) (Do Not Crush) "Do Not Crush" Inactive 08/18/2019 [facility] Hydromorphone Notes: (Same as: Dilaudid) Inactive 08/18/2019 [facility] heparin Notes: porcine heparin Inactive 08/18/2019 [facility] Famotidine Notes: (Same as: Pe pcid) Inactive 08/18/2019 [facility] RN UPDATE PT'S H/W/A IN ADHOC RN UPDATE PT'S H/W/A IN ADHOC, ATTN:RN - UPDATE H/W/A !!!, Drug form: MISC, Route: MISC, Q10Min, 08/18/19 1:50:00 CDT, Duration: 1 day, Stop date: 08/19/19 1:40:00 CDT, 0 Inactive 08/18/2019 [facility] Dextrose 50% Syringe (D50W) 12 .5 gm, 25 mL, Route: IVP, Drug Form: INJ, Dosing Weight 116.636, kg, PRN, PRN Blood Glucose Results, Start date: 08/18/19 1:32:00 CDT, Duration: 30 day, Stop date: 09/17/19 1:31:00 CDT, 0 Inactive 08/18/2019 [facility] Glucagon 1 mg, Route: IM, Drug form: PDR/INJ, PRN, Dosing Weight 116.636, kg, PRN Blood Glucose Results, Start date: 08/18/19 1:32:00 CDT, Duration: 30 day, Stop date: 09/17/19 1:31:00 CDT, 0 Inactive 08/18/2019 [facility] Insulin Lispro Notes: (Same as : Humalog) Roll in palms of hands gently; Do not shake vigorously. WASTE: F/P - Black; E - Municipal Trash Bin Stable for 28 days at room temperature. Expires in days from Date Inactive 08/18/2019 [facility] Acetaminophen 100.4. Not to e xceed 4 grams in 24 hours, Start date: 08/18/19 1:31:00 CDT, Duration: 30 day, Stop date: 09/17/19 1:30:00 CDT Inactive 08/18/2019 [facility] Guaifenesin Notes: (Same as: R obitussin) Inactive 08/18/2019 [facility] Albuterol 0.833 MG/ML / Ipratropium Brom winifred 0.167 MG/ML Inhalant Solution Notes: (Same as: Duoneb) Inactive 08/18/2019 [facility] Azithromycin Notes: (Same As: Zithromax IV) Inactive 08/18/2019 [facility] Ceftriaxone Notes: (Same As: Musa ocephin). Use with 100 mL NS and infuse over 30 min MEDICATION WASTE Product Size: 1000 mg Product Wasted: ___ mg Inactive 08/18/2019 [facility] Fentanyl 25 microgram, Route: IVP, ONCE, Dosing Weight 116.636, kg, Priority: STAT, Start date: 08/17/19 21:28:00 CDT, Stop date: 08/17/19 21:28:00 CDT Inactive 08/18/2019 [facility] Ativan 1 mg, Route: IVP, Drug form: INJ, ONCE, Dosing Weight 116.636, kg, Priority: STAT, Start date: 08/17/19 21:28:00 CDT, Stop date: 08/17/19 21:28:00 CDT Inactive 08/18/2019 [facility] albuterol Notes: SEE RT DOCUME NTATION (Same as: Proventil) Inactive 08/17/2019 [facility] Morphine 4 mg, Route: IVP, ONC E, Dosing Weight 116.636, kg, Priority: STAT, Start date: 08/17/19 16:22:00 CDT, Stop date: 08/17/19 16:22:00 CDT Inactive 08/17/2019 [facility] Kayexalate Notes: (sodium poly styrene sulfonate 15 gm/60 ml STEPHANIE) Shake well before use. (Same as: Kayexalate, SPS) Inactive 08/17/2019 [facility] Nitroglycerin 0.4 MG Sublingual Tablet [Nitrostat] Notes: (Same as:NitroquTito marquezt) "Do Not Crush" Sublingual tablet Inactive 08/17/2019 [facility] Reglan 10 mg, Route: IVP, Drug form: INJ, ONCE, Dosing Weight 116.636, kg, Priority: STAT, Start date: 08/17/19 15:35:00 CDT, Stop date: 08/17/19 15:35:00 CDT Inactive 08/17/2019 [facility] Saline Flush 0.9% Notes: Same as: BD Posiflush Sterile No Longer Active 08/17/2019 [facility] Nitroglycerin Notes: (Same as: Tridil) Final conc = 0.4 mg/ml. Premix bottle. Inactive 08/17/2019 [facility] Nitroglycerin 0.3 MG Sublingual Tablet [Nitrostat] 0.3 mg, 1 tab, Route: SL, ONCE, Dosing Weight 116.636, kg, Start date: 08/17/19 14:53:00 CDT, Stop date: 08/17/19 14:53:00 CDT Inactive 08/17/2019 [facility] Insulin regular Notes: (Same a s: Humulin R) Roll in palms of hands gently; Do not shake vigorously. WASTE: F/P - Black; E - Municipal Trash Bin Stable for 31 days at room temperature Expires in days from Date Inactive 08/17/2019 [facility] Furosemide Notes: (Same as: Barb walker) MEDICATION WASTE Product Size: 40 mg Product Wasted: ___ mg Inactive 08/17/2019 [facility] Kayexalate 60 gm, Route: PO, O NCE, Dosing Weight 116.636, kg, Priority: STAT, Start date: 08/17/19 14:50:00 CDT, Stop date: 08/17/19 14:50:00 CDT Inactive 08/17/2019 [facility] albuterol 0.5% inhalation solution 83 mg + Sodium Chloride 0.9% IV 233.4 mL 233.4 mL, Rate: 30 ml/hr, Infuse over: 7 .8 hr, Route: NEB, Dosing Weight 116.636 kg, Total Volume: 233.4 mL, Delivers 10mg/30ml/hour., Start date: 08/17/19 14:50:00 CDT, Duration: 30 day, Stop date: 09/16/19 14:49:00 CDT, 2.38, m2 Inactiv e 08/17/2019 [facility] d50 syringe 25 gm, 50 mL, Rout e: IVP, Drug Form: INJ, Dosing Weight 116.636, kg, ONCE, STAT, Start date: 08/17/19 14:49:00 CDT, Stop date: 08/17/19 14:49:00 CDT, 25 ml = 12.5 gm, 0 Inactive 08/17/2019 [facility] Morphine Notes: (Same as:MORPh ine Sulfate) Inactive 08/17/2019 [facility] carvedilol Notes: Give with fo od. (Same As: Coreg) Inactive 01/07/2019 [facility] gabapentin Notes: (Same as: Ne urontin) Inactive 01/07/2019 [facility] Hydralazine Notes: (Same as: A presoline) May interfere w/enteral feedings Take With Food No Longer Active 01/06/2019 [facility] metoprolol tartrate Notes: (Sa me as: Lopressor) No Longer Active 01/06/2019 [facility] Dextrose 50% Syringe 12.5 gm, 25 mL, Route: IVP, Drug Form: INJ, Dosing Weight 114.091, kg, PRN, PRN Blood Glucose Results, Start date: 01/06/19 10:53:00 CDT, Duration: 30 day, Stop date: 02/05/19 10:52:00 CDT, 0 No Longer Active 01/06/2019 [facility] Glucagon 1 mg, Route: IM, Drug form: PDR/INJ, PRN, Dosing Weight 114.091, kg, PRN Blood Glucose Results, Start date: 01/06/19 10:53:00 CDT, Duration: 30 day, Stop date: 02/05/19 10:52:00 CDT, 0 No Longer Active 01/06/2019 [facility] Insulin Lispro Notes: (Same as : Humalog) Roll in palms of hands gently; Do not shake vigorously. WASTE: F/P - Black; E - Municipal Trash Bin Stable for 28 days at room temperature. Expires in days from Date No Longer Active 01/06/2019 [facility] acetaminophen-codeine #3 Notes : Do not exceed 4gm/day of acetaminophen. (Same as: Tylenol with Codeine # 3) Inactive 01/06/2019 [facility] heparin sodium, porcine 2500 UNT/ML Injectable Solutio n Notes: porcine heparin No Longer Active 01/06/2019 [facility] Saline Flush 0.9% Notes: (Same as: BD Posiflush) No Longer Active 01/06/2019 [facility] Nystatin 100 UNT/MG Topical Powder Notes: (Same as:Mycostatin, Nilstat) For external use only. No Longer Active 01/06/2019 [facility] Saline Flush 0.9% Notes: (Same as: BD Posiflush) No Longer Active 01/06/2019 [facility] Reglan 10 mg, Route: IVP, Drug form: INJ, ONCE, Dosing Weight 114.091, kg, Priority: STAT, Start date: 01/06/19 4:09:00 CDT, Stop date: 01/06/19 4:09:00 CDT Inactive 01/06/2019 [facility] Nitroglycerin Notes: (Same as: Tridil) Final conc = 0.4 mg/ml. Premix bottle. No Longe r Active 01/06/2019 [facility] Lasix Notes: (Same as: Lasix) MEDICATION WASTE Product Size: 40 mg Product Wasted: ___ mg Inactive 01/06/2019 [facility] cefdinir Notes: (Same As: Omni cef) Inactive 07/25/2018 [facility] Vantin 200 mg, Route: PO, Drug form: TAB, Q24H, Dosing Weight 113.182, kg, Start date: 07/25/18 15:00:00 CDT, Duration: 10 day, Stop date: 08/03/18 15:00:00 CDT, ABX Indication: Urinary Tract Infection Inactive 07/25/2018 [facility] Vantin 200 mg oral tablet 200 mg, PO, Q24H, X 5 day, # 5 tab, 0 Refill(s), Pharmacy: [facility] [id number] Active 07/25/2018 [facility] epoetin mira Notes: (Same as: Procrit) epoetin mira 94984 unit/1 ml VL. For dialysis use only. (Procrit) WASTE: F/P - Red; E -Red MEDICATION WASTE Product Size: 46235 unit Product Wasted: ___ unit Inactive 07/24/2018 [facility] Oxycodone Hydrochloride 5 MG Oral Tablet Notes: (Same as: Roxicodone) Inactive 07/24/2018 [facility] heparin Notes: porcine heparin No Longer Active 07/24/2018 [facility] POLYETHYLENE GLYCOL 3350 Notes : Dissolve in 8 oz of water or juice. (Same as: Miralax) No Longer Active 07/20/2018 [facility] Calcitriol Notes: (Same As: Ro caltrol) No Longer Active 07/20/2018 [facility] carvedilol Notes: Give with fo od. (Same As: Coreg) No Longer Active 07/20/2018 [facility] atorvastatin Notes: (Same as: Lipitor) No Longer Active 07/20/2018 [facility] Furosemide Notes: (Same as: La six) May cause GI upset. Give with food or milk. No Longer Active 07/19/2018 [facility] Epoetin Mira Notes: (Same as: Procrit) epoetin mira 02835 unit/1 ml VL. For dialysis use only. (Procrit) WASTE: F/P - Red; E -Red MEDICATION WASTE Product Size: 60076 unit Product Wasted: ___ unit No Longer Active 07/19/2018 [facility] pantoprazole Notes: Tablet hubert uld not be chewed or crushed. (Same as: Protonix) N o Longer Active 07/19/2018 [facility] Hydralazine Hydrochloride 50 MG Oral Tablet Notes: (Same as: Apresoline) May interfere w/enteral feedings Take With Food No Longer Active 07/19/2018 [facility] Nystatin 100 UNT/MG Topical Powder Notes: (Same as:Mycostatin, Nilstat) For external use only. No Longer Active 07/19/2018 [facility] Diflucan Notes: (Same as: Difl ucan) No Longer Active 07/19/2018 [facility] Rocephin + sterile water 10 mL Notes: (Same As: Rocephin). Use with 100 mL NS and infuse over 30 min MEDICATION WASTE Product Size: 1000 mg Product Wasted: ___ mg No Longer Active 07/19/2018 [facility] Dulcolax Laxative Notes: (Same As: Dulcolax, Correctol) (Do Not Crush) "Do Not Crush" No Longer Active 07/19/2018 [facility] Morphine 2 mg, 1 mL, Route: IV P, Drug form: SOLN, Q4H, Dosing Weight 113.182, kg, PRN Pain Score 7-10, Start date: 07/19/18 11:47:00 CDT, Duration: 30 day, Stop date: 08/18/18 11:46:00 CDT No Longer Active 07/19/2018 [facility] Furosemide 20 mg, PO, BID, 0 R efill(s) Active 07/19/2018 [facility] Docusate Notes: (Same as: Cola ce) (Do Not Crush) No Longer Active 07/19/2018 [facility] Labetalol Notes: (Same as: Nor modyne, Trandate) Push over 2 minutes Give bolus over 2-3 minutes. No Longer Active 07/19/2018 [facility] Reglan Notes: (Same as: Reglan) No Longer Active 07/19/2018 [facility] Insulin Lispro Notes: (Same as : Humalog ) Roll in palms of hands gently; Do not shake `vigorously. "Single Patient Use Only " WASTE: F/P - Black; E - Municipal Trash Bin Stable for 28 days at room temp erature. Expires in days from Date No Longer Active 07/19/2018 [facility] Glucagon 1 mg, Route: IM, Drug form: PDR/INJ, PRN, Dosing Weight 113.182, kg, PRN Blood Glucose Results, Start date: 07/19/18 2:01:00 CDT, Duration: 30 day, Stop date: 08/18/18 2:00:00 CDT No Longer Active 07/19/2018 [facility] Dextrose 50% Syringe 12.5 gm, 25 mL, Route: IVP, Drug Form: INJ, Dosing Weight 113.182, kg, PRN, PRN Blood Glucose Results, Start date: 07/19/18 2:01:00 CDT, Duration: 30 day, Stop date: 08/18/18 2:00:00 CDT No Longer Active 07/19/2018 [facility] Melatonin Notes: (Same as: [place] atonin) No Longer Active 07/19/2018 [facility] Glucagon 1 mg, Route: IM, Drug form: PDR/INJ, PRN, Dosing Weight 113.182, kg, PRN Blood Glucose Results, Start date: 07/19/18 1:00:00 CDT, Duration: 30 day, Stop date: 08/18/18 0:59:00 CDT Inactive 07/19/2018 [facility] Dextrose 50% Syringe 12.5 gm, 25 mL, Route: IVP, Drug Form: INJ, Dosing Weight 113.182, kg, PRN, PRN Blood Glucose Results, Start date: 07/19/18 1:00:00 CDT, Duration: 30 day, Stop date: 08/18/18 0:59:00 CDT Inactive 07/19/2018 [facility] Morphine Notes: (Same as:MORPh ine Sulfate) Inactive 07/19/2018 [facility] Hydralazine 10 mg, Route: IV, ONCE, Dosing Weight 119.1, kg, Start date: 07/19/18 0:49:00 CDT, Stop date: 07/19/18 0:49:00 CDT Inactive 07/19/2018 [facility] Fluconazole Notes: (Same as: D iflucan) Inactive 07/01/2018 [facility] Thiamine Notes: (Same As: Ami min B1) No Longer Active 06/29/2018 [facility] Phenergan Notes: Do not give I V push. (Same as: Phenergan) No Longer Active 06/28/2018 [facility] Zofran Notes: (Same as: Zofran ) MEDICATION WASTE Product Size: 4 mg Product Wasted: ___ mg No Longer Active 06/27/2018 [facility] Calcitriol Notes: (Same As: Ro caltrol) No Longer Active 06/27/2018 [facility] heparin Notes: porcine heparin No Longer Active 06/27/2018 [facility] gabapentin 300 MG Oral Capsule Notes: (Same as: Neurontin) No Longer Active 06/27/2018 [facility] cefepime Notes: (Same As: Jose C duckworth) MEDICATION WASTE Product Size: 1000 mg Product Wasted: ___ mg No Longer Active 06/27/2018 [facility] Morphine 2 mg, 1 mL, Route: IV P, Drug form: SOLN, Q4H, Dosing Weight 119.1, kg, PRN Pain Score 7-10, Start date: 06/27/18 0:17:00 IMMUNOLOGY SPECIALIST, Duration: 30 day, Stop date: 07/27/18 0:16:00 CDT No Longer Active 06/27/2018 [facility] carvedilol Notes: Give with fo od. (Same As: Coreg) No Longer Active 06/27/2018 [facility] Epoetin Mira Notes: (Same as: Procrit) epoetin mira 08008 unit/1 ml VL. No Longer Active 06/26/2018 [facility] Hydralazine Hydrochloride 50 MG Oral Tablet Notes: (Same as: Apresoline) May interfere w/enteral feedings Take With Food No Longer Active 06/26/2018 [facility] Dulcolax Laxative Notes: (Same As: Dulcolax, Correctol) (Do Not Crush) "Do Not Crush" No Longer Active 06/26/2018 [facility] Saline Flush 0.9% Notes: (Same as: BD Posiflush) No Longer Active 06/26/2018 [facility] Maxipime + sterile water 10 mL Notes: (Same As: Maxipime) MEDICATION WASTE Product Size: 1000 mg Product Wasted: ___ mg Inactive 06/26/2018 [facility] nystatin topical 100,000 units/g ointment Notes: (Same as:Mycostatin, Nilstat) for external use only. No Longer Active 06/26/2018 [facility] Bisacodyl 5 MG Enteric Coated Tablet [Dulcolax] 5 mg = 1 tab, PO, Daily, PRN Constipation Active 06/26/2018 [facility] Nystatin 100,000 unit, Route: TOP, Drug form: OINT, BID, Dosing Weight 119.1, kg, PRN Irritation, Start date: 06/26/18 7:04:00 IMMUNOLOGY SPECIALIST, Duration: 30 day, Stop date: 07/26/18 7:03:00 CDT Inactive 06/26/2018 [facility] alteplase 2 mg injection Notes : "Syringe for catheter clearance or interventional radiology use. Reconstitute each vial of Cathflo Activase with 2.2 ml Sterile Water resulting in a 1 mg/ml solution. (Same as: Activase) MEDICATION WASTE Product Size: 2 mg Product Wasted: ___ mg Inactive 06/26/2018 [facility] Streptococcus pneumoniae serotype 1 caps ular antigen diphtheria [id number] protein conjugate vaccine / Streptococcus pneumoniae serotype 14 capsular antigen diphtheria [id number] protein conjugate vaccine / Streptococcus pneumoniae serotype 18C capsular antigen d Notes: Shake well prior to use (Same as: Prevnar 13) No Longe r Active 06/26/2018 [facility] morphine preservative-free Not es: (Same as:MORPhine Sulfate) No Longer Active 06/26/2018 [facility] Saline Flush 0.9% Notes: (Same as: BD Posiflush) No Longer Active 06/26/2018 [facility] Nystatin 100 UNT/MG Topical Powder Notes: (Same as:Mycostatin, Nilstat) For external use only. No Longer Active 06/26/2018 [facility] Lasix Notes: (Same as: Lasix) MEDICATION WASTE Product Size: 40 mg Product Wasted: ___ mg Inactive 06/26/2018 [facility] Aspirin Notes: Take with food. Inactive 06/26/2018 [facility] Nitroglycerin Notes: (Same as: Tridil) Final conc = 0.4 mg/ml. Premix bottle. No Longe r Active 06/26/2018 [facility] Furosemide 40 mg, Route: IVP, ONCE, Dosing Weight 113.636, kg, Priority: STAT, Start date: 06/25/18 20:06:00 IMMUNOLOGY SPECIALIST, Stop date: 06/25/18 20:06:00 IMMUNOLOGY SPECIALIST Inactive 06/26/2018 [facility] Saline Flush 0.9% Notes: (Same as: BD Posiflush) No Longer Active 06/26/2018 [facility] Motrin Notes: (Same as: Motrin ) "Do Not Crush" Give with food. Inactive 06/23/2018 [facility] Tylenol 650 mg, Route: PO, Mal g form: TAB, ONCE, Dosing Weight 113.636, kg, Priority: STAT, Start date: 06/23/18 15:41:00 IMMUNOLOGY SPECIALIST, Stop date: 06/23/18 15:41:00 IMMUNOLOGY SPECIALIST Inactive 06/23/2018 [facility] Ciprofloxacin 500 MG Oral Tablet [Cipro] 500 mg = 1 tab, PO, Q24H, X 5 day, # 5 tab, 0 Refill(s), Pharmacy: [facility] [id number] Active 06/19/2018 [facility] gabapentin 300 MG Oral Capsule 300 mg = 1 cap, PO, Daily, # 30 cap, 0 Refill(s), Pharmacy: [facility] [id number] Active 06/19/2018 [facility] Protonix Notes: Tablet should not be chewed or crushed. (Same as: Protonix) Inactive 06/19/2018 [facility] POLYETHYLENE GLYCOL 3350 Notes : Dissolve in 8 oz of water or juice. (Same as: Miralax) No Longer Active 06/18/2018 [facility] Rocephin + sterile water 10 mL Notes: (Same As: Rocephin). Use with 100 mL NS and infuse over 30 min MEDICATION WASTE Product Size: 1000 mg Product Wasted: ___ mg No Longer Active 06/18/2018 [facility] Phenergan 12.5 mg, Route: IVPB , ONCE, Dosing Weight 111.3, kg, Priority: STAT, Start date: 06/18/18 7:39:00 IMMUNOLOGY SPECIALIST, Stop date: 06/18/18 7:39:00 IMMUNOLOGY SPECIALIST Inactive 06/18/2018 [facility] Phenergan Notes: Do not give I V push. (Same as: Phenergan) No Longer Active 06/18/2018 [facility] Phenergan Notes: Do not give I V push. (Same as: Phenergan) Inactive 06/18/2018 [facility] Zofran Notes: (Same as: Zofran ) MEDICATION WASTE Product Size: 4 mg Product Wasted: ___ mg Inactive 06/18/2018 [facility] heparin Notes: porcine heparin No Longer Active 06/17/2018 [facility] heparin 10,000 unit, 10 mL, Ro ramona: DIALYSIS, Drug form: INJ, ONCALL, Dosing Weight 111.364, kg, Start date: 06/17/18 14:00:00 IMMUNOLOGY SPECIALIST, Duration: 1 doses or times No Longer Active 06/17/2018 [facility] Sodium Chloride 0.9% (Bolus) IV 1,000 mL, 1,000 ml/hr, Infuse Over: 1 hr, Route: IV, 1,000, Drug form: INJ, PRN, Priority: STAT, Dosing Weight 111.364 kg, Start date: 06/17/18 13:39:00 IMMUNOLOGY SPECIALIST, Duration: 30 day, Stop date: 07/17/18 14:38:00 CDT, PRN Dialysis No Longer Active 06/17/2018 [facility] Hydralazine Hydrochloride 50 MG Oral Tablet Notes: (Same as: Apresoline) May interfere w/enteral feedings Take With Food No Longer Active 06/17/2018 [facility] Dextrose 50% Syringe 25 gm, 50 mL, Route: IVP, Drug Form: INJ, Dosing Weight 111.364, kg, PRN, PRN Blood Glucose Results, Start date: 06/17/18 12:06:00 IMMUNOLOGY SPECIALIST, Duration: 30 day, Stop date: 07/17/18 13:05:00 CDT No Longer Active 06/17/2018 [facility] Glucagon 1 mg, Route: IM, Drug form: PDR/INJ, PRN, Dosing Weight 111.364, kg, PRN Blood Glucose Results, Start date: 06/17/18 12:06:00 IMMUNOLOGY SPECIALIST, Duration: 30 day, Stop date: 07/17/18 13:05:00 CDT No Longer Active 06/17/2018 [facility] tramadol hydrochloride 50 MG Oral Tablet Notes: Not to exceed 400mg/day. (Same As: Ultram) Inactive 06/17/2018 [facility] Dilaudid Notes: Same as: Dilau did No Longer Active 06/17/2018 [facility] Protonix Notes: For IV push re constitute with 10 ml 0.9% sodium chloride and push over 2 minutes. (Same as: Protonix) No Longer Active 06/17/2018 [facility] NIFEdipine 30 mg oral tablet, extended release Notes: (Same as: Adalat CC, Procardia XL) Give on empty stomach. Take 1 hour before or 2 hours after meal; "Avoid grapefruit and grapefruit juice". Do not crush No Longer Active 06/17/2018 [facility] carvedilol Notes: Give with fo od. (Same As: Coreg) No Longer Active 06/17/2018 [facility] Lasix 40 mg, Route: IVP, Drug form: INJ, ONCE, Dosing Weight 111.364, kg, Priority: STAT, Start date: 06/17/18 9:55:00 IMMUNOLOGY SPECIALIST, Stop date: 06/17/18 9:55:00 IMMUNOLOGY SPECIALIST Inactive 06/17/2018 [facility] Rocephin + sterile water 10 mL Notes: (Same As: Rocephin). Use with 100 mL NS and infuse over 30 min MEDICATION WASTE Product Size: 1000 mg Product Wasted: ___ mg Inactive 06/17/2018 [facility] Lasix Notes: (Same as: Lasix) MEDICATION WASTE Product Size: 40 mg Product Wasted: ___ mg Inactive 06/17/2018 [facility] Zofran 4 mg, Route: IVP, Drug form: INJ, ONCE, Dosing Weight 111.364, kg, Priority: STAT, Start date: 06/17/18 8:17:00 IMMUNOLOGY SPECIALIST, Stop date: 06/17/18 8:17:00 IMMUNOLOGY SPECIALIST Inactive 06/17/2018 [facility] Morphine 4 mg, Route: IVP, ONC E, Dosing Weight 111.364, kg, Priority: STAT, Start date: 06/17/18 8:17:00 IMMUNOLOGY SPECIALIST, Stop date: 06/17/18 8:17:00 IMMUNOLOGY SPECIALIST Inactive 06/17/2018 [facility] Nitroglycerin Notes: (Same as: Tridil) Final conc = 0.4 mg/ml. Premix bottle. No Longe r Active 06/17/2018 [facility] Nitroglycerin 0.4 mg, Route: S L, ONCE, Dosing Weight 111.364, kg, Priority: STAT, Start date: 06/17/18 7:46:00 IMMUNOLOGY SPECIALIST, Stop date: 06/17/18 7:46:00 IMMUNOLOGY SPECIALIST Inactive 06/17/2018 [facility] Saline Flush 0.9% Notes: (Same as: BD Posiflush) No Longer Active 06/17/2018 [facility] Levofloxacin 500 mg, 1 tab, Ro ramona: PO, Drug form: TAB, [id number], Dosing Weight 103.9, kg, For Renal dosing CrCl < 20ml/min. See comment tab., Start date: 11/12/17 17:00:00 CDT, Duration: 10 day, Stop date: 11/20/17 17:00:00 CDT, ABX Indication: Bacteremia Inactive 11/12/2017 [facility] polyethylene glycol 3350 oral kit 17 gm, PO, Daily, Please mix 1 cap full of powder into 6 oz of water as needed for constipation, # 1 box, 0 Refill(s) Active 11/12/2017 [facility] pantoprazole 40 mg oral enteric coated tablet 40 mg = 1 tab, PO, Before Breakfast, # 14 tab, 0 Refill(s) Active 11/12/2017 [facility] levofloxacin 500 mg oral tablet 500 mg = 1 tab, PO, [id number], # 6 tab, 0 Refill(s) Active 11/12/2017 [facility] NIFEdipine 30 mg oral tablet, extended release 30 mg = 1 tab, PO, Q12H, # 60 tab, 0 Refill(s) Active 11/12/2017 [facility] carvedilol 25 mg oral tablet 2 5 mg = 1 tab, PO, Q12H, # 60 tab, 0 Refill(s) Active 11/12/2017 [facility] calcitriol 0.25 mcg oral capsule 0.25 microgram = 1 cap, PO, Daily, # 30 cap, 0 Refill(s) Active 11/12/2017 [facility] tramadol 100 mg oral tablet, extended release 100 mg = 1 tab, PO, Daily, # 30 tab, 0 Refill(s) Active 11/12/2017 [facility] sennosides, DETENTION 8.6 MG Oral Tablet 8.6 mg = 1 tab, PO, BID, as needed with plenty of water for constipation, # 30 tab, 0 Refill(s) No Longer Active 11/12/2017 [facility] pantoprazole Notes: Tablet hubert uld not be chewed or crushed. (Same as: Protonix) Inactive 11/12/2017 [facility] heparin Notes: porcine heparin No Longer Active 11/11/2017 [facility] NIFEdipine 30 mg oral tablet, extended release Notes: (Same as: Adalat CC, Procardia XL) Give on empty stomach. Take 1 hour before or 2 hours after meal; "Avoid grapefruit and grapefruit juice". Do not crush No Longer Active 11/10/2017 [facility] Morphine Notes: (Same as:MORPh ine Sulfate) No Longer Active 11/09/2017 [facility] Calcitriol Notes: (Same As: Ro caltrol) No Longer Active 11/09/2017 [facility] NIFEdipine 30 mg oral tablet, extended release Notes: (Same as: Adalat CC, Procardia XL) Give on empty stomach. Take 1 hour before or 2 hours after meal; "Avoid grapefruit and grapefruit juice". Do not crush Inactive 11/09/2017 [facility] Phenergan Notes: (Same as: Phe nergan) 6.25 mg = 1/2 x 12.5 mg TAB Inactive 11/09/2017 [facility] Acetaminophen 325 MG / Hydrocodone Jeanie trate 5 MG Oral Tablet [[place] 5/325] Notes: (Same as: [place] 325/5) Do not ex ceed 4gm/day of acetaminophen. Inactive 11/09/2017 [facility] Hydralazine Notes: (Same as: A presoline) Push over 5 minutes Inactive 11/09/2017 [facility] Morphine 2 mg, Route: IV, Q4H, Dosing Weight 103.9, kg, Start date: 11/08/17 20:00:00 CDT, Duration: 30 day, Stop date: 12/08/17 16:00:00 CDT Inactive 11/09/2017 [facility] Levofloxacin Notes: (Same as:L evaquin) No Longer Active 11/08/2017 [facility] Morphine Notes: (Same as:MORPh ine Sulfate) Inactive 11/08/2017 [facility] Morphine 2 mg, Route: IV, Q4H, Dosing Weight 103.9, kg, Start date: 11/08/17 17:52:00 CDT, Duration: 30 day, Stop date: 12/08/17 16:00:00 CDT Inactive 11/08/2017 [facility] Magic Mouthwash w carafate (Benadryl/Lid ocaine/Maalox/Carafate) 1:1:1:1 Notes: Benadryl 1.25ml- Mylanta 1.25ml - Lidocaine Viscous 1.25ml - Carafate 1.25ml Inactive 11/08/2017 [facility] Morphine Notes: (Same as:MORPh ine Sulfate) Inactive 11/08/2017 [facility] propofol 10 mg/mL (Titrate.) IV 500 mg 500 mg, 50 mL, Rate: Titrate, Start Dose: 5 microgram/kg/min, Titration: 5 microgram/kg/min every 15 min, Goal(s): RASS -2, Max Dose: 50 microgram/kg/min, Route: IV, Dosing Weight 103.9 kg, Total Volume: 50, Start date: 11/07/17 10:42:00 CDT, Duration... Inactive 11/07/2017 [facility] Calcium Gluconate 2,000 mg, Ro ramona: IVPB, Drug form: INJ, ONCE, Dosing Weight 103.9, kg, Start date: 11/07/17 7:02:00 CDT, Stop date: 11/07/17 7:02:00 CDT Inactive 11/07/2017 [facility] Lasix Notes: (Same as: Lasix) MEDICATION WASTE Product Size: 40 mg Product Wasted: ___ mg Inactive 11/07/2017 [facility] Lasix 40 mg, Route: IVP, Drug form: INJ, ONCALL, Dosing Weight 103.9, kg, Start date: 11/07/17 6:00:00 CDT, Duration: 30 day, Stop date: 12/07/17 5:59:00 CDT Inactive 11/07/2017 [facility] Insulin Lispro Notes: (Same as : Humalog ) Roll in palms of hands gently; Do not shake `vigorously. "Single Patient Use Only " WASTE: F/P - Black; E - Municipal Trash Bin Stable for 28 days at room temp erature. Expires in days from Date No Longer Active 11/07/2017 [facility] Dextrose 50% Syringe 25 gm, 50 mL, Route: IVP, Drug Form: INJ, Dosing Weight 103.9, kg, PRN, PRN Blood Glucose Results, Start date: 11/07/17 0:07:00 CDT, Duration: 30 day, Stop date: 12/07/17 0:06:00 CDT No Longer Active 11/07/2017 [facility] Glucagon 1 mg, Route: IM, Drug form: PDR/INJ, PRN, Dosing Weight 103.9, kg, PRN Blood Glucose Results, Start date: 11/07/17 0:07:00 CDT, Duration: 30 day, Stop date: 12/07/17 0:06:00 CDT No Longer Active 11/07/2017 [facility] meropenem Notes: Same as Dionisio horton MEDICATION WASTE Product Size: 500 mg Product Wasted: ___ mg No Longer Active 11/07/2017 [facility] meropenem 500 mg, Route: IV, O NCE, Dosing Weight 103.9, kg, Start date: 11/06/17 23:54:00 CDT, Stop date: 11/06/17 23:54:00 CDT, ABX Indication: Bacteremia Inactiv e 11/07/2017 [facility] Metoclopramide Notes: (Same as : Reglan) No Longer Active 11/06/2017 [facility] Aspirin 81 MG Chewable Tablet Notes: Take with food. No Longer Active 11/06/2017 [facility] carvedilol Notes: Give with fo od. (Same As: Coreg) Inactive 11/06/2017 [facility] Miralax Notes: Dissolve in 8 o z of water or juice. (Same as: Miralax) No Longer Active 11/06/2017 [facility] sennosides, DETENTION 8.6 MG Oral Tablet Notes: (Same as: Senokot) No Longer Active 11/06/2017 [facility] Saline Flush 0.9% Notes: (Same as: BD Posiflush) No Longer Active 11/06/2017 [facility] Hydromorphone Notes: Same as D ilaudid Inactive 11/06/2017 [facility] heparin Notes: porcine heparin No Longer Active 11/06/2017 [facility] meropenem Notes: Same as Dionisio horton MEDICATION WASTE Product Size: 500 mg Product Wasted: ___ mg No Longer Active 11/06/2017 [facility] linezolid Notes: (Same as: Zyv ox) No Longer Active 11/06/2017 [facility] Acetaminophen 325 MG / Hydrocodone Jeanie trate 5 MG Oral Tablet [[place] 5/325] Notes: (Same as: [place] 325/5) Do not ex ceed 4gm/day of acetaminophen. No Longer Activ e 11/06/2017 [facility] Acetaminophen 300 MG / Codeine Phosphate 30 MG Oral Tablet [Tylenol with Codeine #3] Notes: Do not exceed 4gm/day of acetamin ophen. (Same as: Tylenol with Codeine # 3) No Longer Active 11/06/2017 [facility] Metoclopramide Notes: (Same as : Reglan) Inactive 11/06/2017 [facility] Acetaminophen 325 MG / Hydrocodone Jeanie trate 5 MG Oral Tablet [[place] 5/325] Notes: (Same as: [place] 325/5) Do not ex ceed 4gm/day of acetaminophen. Inactive 11/06/2017 [facility] Miralax Notes: Dissolve in 8 o z of water or juice. (Same as: Miralax) Inactive 11/06/2017 [facility] Miralax 17 gm, Route: PO, ONCE , Dosing Weight 103.9, kg, Start date: 11/06/17 4:04:00 CDT, Stop date: 11/06/17 4:04:00 CDT Inactive 11/06/2017 [facility] sennosides, DETENTION 8.6 MG Oral Tablet Notes: (Same as: Senokot) Inactive 11/06/2017 [facility] Metoclopramide Notes: (Same as : Reglan) Inactive 11/06/2017 [facility] carvedilol Notes: Give with fo od. (Same As: Coreg) No Longer Active 11/06/2017 [facility] cefepime Notes: (Same As: Jose C duckworth) MEDICATION WASTE Product Size: 1000 mg Product Wasted: ___ mg Inactive 11/06/2017 [facility] Tylenol Notes: Do not exceed 4 gm/day. (Same as: Tylenol) No Longer Active 11/06/2017 [facility] Zofran Notes: (Same as: Zofran) Inactive 11/06/2017 [facility] atorvastatin Notes: (Same as: Lipitor) No Longer Active 11/06/2017 [facility] atorvastatin 40 mg oral tablet 40 mg = 1 tab, PO, Bedtime, # 30 tab, 0 Refill(s) No Longer Active 11/06/2017 [facility] Famotidine 20 MG Oral Tablet 2 0 mg = 1 tab, PO, BID, # 60 tab, 0 Refill(s) No Longer Active 11/06/2017 [facility] Hydralazine Hydrochloride 50 MG Oral Tablet 50 mg = 1 tab, PO, TID, # 90 tab, 3 Refill(s) No Longer Active 11/06/2017 [facility] Furosemide 20 MG Oral Tablet [Lasix] 20 mg = 1 tab, PO, Daily, # 30 tab, 0 Refill(s) N o Longer Active 11/06/2017 [facility] carvedilol 25 mg oral tablet 2 5 mg = 1 tab, PO, BID, # 180 tab, 0 Refill(s) No Longer Active 11/06/2017 [facility] Aspirin 81 MG Chewable Tablet 81 mg = 1 tab, PO, Daily, tab, 0 Refill(s) No Longer Active 11/06/2017 [facility] amLODIPine 10 mg oral tablet 1 0 mg = 1 tab, PO, Daily, # 30 tab, 0 Refill(s) No Longer Active 11/06/2017 [facility] Calcium Carbonate 500 MG Chewable Tablet 1,000 mg, Route: PO, PRN, Dosing Weight 109.091, kg, PRN Abnormal Lab Result, FOR ICU USE ONLY, Start date: 11/05/17 21:57:00 CDT, Duration: 30 day, Stop date: 12/05/17 21:56:00 CDT Inactive 11/06/2017 [facility] Magnesium Oxide 800 mg, Route: PO, PRN, Dosing Weight 109.091, kg, PRN Abnormal Lab Result, FOR ICU USE ONLY, Start date: 11/05/17 21:57:00 CDT, Duration: 30 day, Stop date: 12/05/17 21:56:00 CDT Inactive 11/06/2017 [facility] Calcium Gluconate 1 gm, Route: IVPB, PRN, Dosing Weight 109.091, kg, PRN Abnormal Lab Result, Start date: 11/05/17 21:57:00 CDT, Duration: 30 day, Stop date: 12/05/17 21:56:00 CDT, FOR ICU USE ONLY Inactive 11/06/2017 [facility] Potassium Chloride 20 mEq, Rou te: IVPB, PRN, Dosing Weight 109.091, kg, PRN Abnormal Lab Result, Via central line, Start date: 11/05/17 21:57:00 CDT, Duration: 30 day, Stop date: 12/05/17 21:56:00 CDT, FOR ICU USE ONLY Inactive 11/06/2017 [facility] potassium phosphate 45 mmol, R oute: IVPB, PRN, Dosing Weight 109.091, kg, PRN Abnormal Lab Result, Start date: 11/05/17 21:57:00 CDT, Duration: 30 day, Stop date: 12/05/17 21:56:00 CDT, FOR ICU USE ONLY Inactive 11/06/2017 [facility] Magnesium Sulfate 2 gm, Route: IVPB, PRN, Dosing Weight 109.091, kg, PRN Abnormal Lab Result, Start date: 11/05/17 21:57:00 CDT, Duration: 30 day, Stop date: 12/05/17 21:56:00 CDT, FOR ICU USE ONLY Inactive 11/06/2017 [facility] potassium phosphate-sodium phosphate 250 mg-280 mg-160 mg oral powder for reconstitution 2 pkt, Route: PO, Dosing Weight 109.091, kg, PRN, PRN Abnormal Lab Result, FOR ICU USE ONLY, Start date: 11/05/17 21:57:00 CDT, Duration: 30 day, Stop date: 12/05/17 21:56:00 CDT Inactive 11/06/2017 [facility] sodium phosphate 45 mmol, Rout e: IVPB, PRN, Dosing Weight 109.091, kg, PRN Abnormal Lab Result, Start date: 11/05/17 21:57:00 CDT, Duration: 30 day, Stop date: 12/05/17 21:56:00 CDT, FOR ICU USE ONLY Inactive 11/06/2017 [facility] Saline Flush 0.9% Notes: (Same as: BD Posiflush) No Longer Active 11/06/2017 [facility] Nystatin 100 UNT/MG Topical Powder Notes: (Same as:Mycostatin, Nilstat) For external use only. No Longer Active 11/06/2017 [facility] Magnesium Sulfate 2 gm, Route: IV, ONCE, Dosing Weight 109.091, kg, Priority: STAT, Start date: 11/05/17 21:22:00 CDT, Stop date: 11/05/17 21:22:00 CDT Inactive 11/06/2017 [facility] Hydromorphone 0.5 mg, Route: I COMMERCIAL INTERN, ONCE, Dosing Weight 109.091, kg, Priority: STAT, Start date: 11/05/17 20:37:00 CDT, Stop date: 11/05/17 20:37:00 CDT Inactive 11/06/2017 [facility] Hydromorphone Notes: Same as D ilaudid Inactive 11/06/2017 [facility] Ondansetron Notes: (Same as: Barron cain) MEDICATION WASTE Product Size: 4 mg Product Wasted: 0 mg Inactive 11/06/2017 [facility] iodixanol 130 mL, Route: IVP, Drug Form: SOLN, Dosing Weight 109.091, kg, ONCALL, STAT, Start date: 11/05/17 19:38:00 CDT, Duration: 1 doses or times, Dose = 2.2ml/kg, Max dose = 150ml -- "To be infused by Ra diology Staff ONLY" Inactive 11/06/2017 [facility] Morphine Notes: (Same as:MORPh ine Sulfate) Inactive 11/05/2017 [facility] Tylenol Notes: Do not exceed 4 gm/day. (Same as: Tylenol) Inactive 11/05/2017 [facility] Vancomycin 2001 mg: infuse ov er 2.5 hours For adult patients only: Round to nearest 250 mg per Medical Staff approval MEDICATION WASTE Product Size: 1000 mg Product Wasted: ___ mg Inactive 11/05/2017 [facility] cefepime Notes: (Same As: Jose C duckworth) MEDICATION WASTE Product Size: 1000 mg Product Wasted: ___ mg Inactive 11/05/2017 [facility] Saline Flush 0.9% Notes: (Same as: BD Posiflush) No Longer Active 11/05/2017 [facility] Hydralazine Hydrochloride 50 MG Oral Tablet 50 mg = 1 tab, PO, TID, Hold if SBP is <100 mmhg., # 90 tab, 3 Refill(s), Pharmacy: [facility] Active 09/26/2017 [facility] Famotidine 20 MG Oral Tablet 2 0 mg = 1 tab, PO, BID, # 60 tab, 0 Refill(s), Pharmacy: [facility] [place] [id number] Active 09/26/2017 [facility] epoetin mira 10,000 units/mL preservativ e-free injectable solution 10,000 unit = 1 mL, SUB-Q, Q---Sa, 0 Refill(s) Active 09/26/2017 [facility] pantoprazole 40 mg oral enteric coated tablet 40 mg = 1 tab, PO, Before Breakfast, # 30 tab, 0 Refill(s), Pharmacy: [facility] [place] [id number] Active 09/26/2017 [facility] Venofer Notes: Each 5ml contai ns 100mg elemental iron. Mix with NS Non-Formulary (Same as:Venofer) Administer IV only. MEDICATION WASTE Product Size: 100 mg Product Wasted: ___ mg No Longer Active 09/20/2017 [facility] Oxycodone Hydrochloride 5 MG Oral Tablet Notes: (Same as: Roxicodone) No Longer Active 09/19/2017 [facility] Clonidine Notes: (Same As: Cat apres) Inactive 09/19/2017 [facility] Epogen Notes: (Same as: Procri t) epoetin mira 80296 unit/1 ml VL. For dialysis use only. (Procrit) WASTE: F/P - Red; E -Red MEDICATION WASTE Product Size: 70357 unit Product Wasted: ___ unit No Longer Active 09/18/2017 [facility] Morphine 4 mg, 2 mL, Route: IV P, Drug form: SOLN, Q4H, Dosing Weight 112.1, kg, PRN Pain Score 7-10, Start date: 09/18/17 14:11:00 CDT, Duration: 30 day, Stop date: 10/18/17 14:10:00 CDT, Substitute Allowed No No Longer Active 09/18/2017 [facility] Morphine Notes: (Same as:MORPh ine Sulfate) Inactive 09/18/2017 [facility] atorvastatin Notes: (Same as: Lipitor) No Longer Active 09/18/2017 [facility] Flexeril Notes: (Same As: Flex eril) No Longer Active 09/17/2017 [facility] Dilaudid Notes: Same as: Dilau did No Longer Active 09/17/2017 [facility] Dilaudid Notes: (Same as: Dila udid) Inactive 09/17/2017 [facility] NIFEdipine 90 mg oral tablet, extended release Notes: (Same as: Adalat CC,Procardia XL) "Do Not Crush" "Avoid grapefruit and grapefruit juice" No Longer Active 09/17/2017 [facility] Hydralazine Hydrochloride 50 MG Oral Tablet Notes: (Same as: Apresoline) May interfere w/enteral feedings Take With Food No Longer Active 09/17/2017 [facility] Furosemide 40 MG Oral Tablet N otes: (Same as: Lasix) May cause GI upset. Give with food or milk. No Longer Active 09/17/2017 [facility] carvedilol Notes: Give with fo od. (Same As: Coreg) No Longer Active 09/17/2017 [facility] Clonidine Hydrochloride 0.1 MG Oral Tablet Notes: (Same As: Catapres) Inactive 09/17/2017 [facility] Famotidine Notes: (Same as: Pe pcid) No Longer Active 09/17/2017 [facility] Tramadol Notes: Not to exceed 400mg/day. (Same As: Ultram) Inactive 09/17/2017 [facility] Saline Flush 0.9% Notes: (Same as: BD Posiflush) No Longer Active 09/17/2017 [facility] Famotidine Notes: (Same as: Pe pcid) Can be dilute in 5- 10cc NS IVP: Slow IV push over at least 2 minutes. Inactive 09/17/2017 [facility] Motrin Notes: (Same as: Motrin ) "Do Not Crush" Take with food. No Longer Active 09/16/2017 [facility] Cathflo Activase 2 mg injection Notes: "Syringe for catheter clearance or interventional radiology use. Reconstitute each vial of Cathflo Activase with 2.2 ml Sterile Water resulting in a 1 mg/ml solution. (Same as: Activase) MEDICATION WASTE Product Size: 2 mg Product Wasted: ___ mg Inactive 09/16/2017 [facility] Cathflo Activase 2 mg injection Notes: "Syringe for catheter clearance or interventional radiology use. Reconstitute each vial of Cathflo Activase with 2.2 ml Sterile Water resulting in a 1 mg/ml solution. (Same as: Activase) MEDICATION WASTE Product Size: 2 mg Product Wasted: ___ mg Inactive 09/16/2017 [facility] Kayexalate Notes: (sodium poly styrene sulfonate 15 gm/60 ml STEPHANIE) Shake well before use. (Same as: Kayexalate, SPS) Inactive 09/16/2017 [facility] Saline Flush 0.9% Notes: (Same as: BD Posiflush) No Longer Active 09/16/2017 [facility] Nystatin 100 UNT/MG Topical Powder Notes: (Same as:Mycostatin, Nilstat) For external use only. No Longer Active 09/16/2017 [facility] Insulin regular Notes: (Same a s: Humulin R and NovoLIN R) WASTE: F/P - Black; E - Municipal Trash Bin (Do not shake) Inactive 09/16/2017 [facility] Dextrose 50% Syringe 25 gm, 50 mL, Route: IVP, Drug Form: INJ, Dosing Weight 102.756, kg, ONCE, STAT, Start date: 09/16/17 8:39:00 CDT, Stop date: 09/16/17 8:39:00 CDT Inactive 09/16/2017 [facility] Calcium Gluconate Notes: WASTE : F/P - Sink; E - Municipal Trash Bin Inactive 09/16/2017 [facility] Sodium polystyrene sulfonate N otes: (sodium polystyrene sulfonate 15 gm/60 ml STEPHANIE) Shake well before use. (Same as: Kayexalate, SPS) Inactive 09/16/2017 [facility] Saline Flush 0.9% Notes: (Same as: BD Posiflush) No Longer Active 09/16/2017 [facility] Albuterol 0.83 MG/ML Inhalant Solution Notes: SEE RT DOCUMENTATION (Same as: Proventil) Inactive 09/16/2017 [facility] Sodium Bicarbonate Notes: (sod ium bicarb 8.4% (1 mEq/ml) 50 ml syringe) Inactive 09/16/2017 [facility] Fentanyl 50 microgram, Route: IVP, ONCE, Dosing Weight 102.756, kg, Priority: STAT, Start date: 09/16/17 8:10:00 CDT, Stop date: 09/16/17 8:10:00 CDT Inactive 09/16/2017 [facility] Lasix 40 mg, Route: IVP, Drug form: INJ, ONCE, Dosing Weight 102.756, kg, Priority: STAT, Start date: 09/16/17 7:26:00 CDT, Stop date: 09/16/17 7:26:00 CDT Inactive 09/16/2017 [facility] Nitroglycerin Notes: (Same as: Tridil) Final conc = 0.4 mg/ml. Premix bottle. No Longe r Active 09/16/2017 [facility] Fentanyl 50 microgram, Route: IVP, ONCE, Dosing Weight 102.756, kg, Priority: STAT, Start date: 09/16/17 6:49:00 CDT, Stop date: 09/16/17 6:49:00 CDT Inactive 09/16/2017 [facility] Nitroglycerin Notes: (Same as: Nitroquick, Nitrostat) "Do Not Crush" Sublingual tablet No Longer Active 09/16/2017 [facility] Saline Flush 0.9% Notes: (Same as: BD Posiflush) No Longer Active 09/16/2017 [facility] heparin 10,000 unit, 10 mL, Ro ramona: DIALYSIS, Drug form: INJ, ONCALL, Dosing Weight 102.756, kg, Start date: 08/17/17 11:00:00 CDT, Duration: 1 doses or times Inactive 08/17/2017 [facility] Hydralazine Hydrochloride 50 MG Oral Tablet Notes: (Same as: Apresoline) May interfere w/enteral feedings Take With Food Inactive 08/17/2017 [facility] Furosemide 40 MG Oral Tablet N otes: (Same as: Lasix) May cause GI upset. Give with food or milk. Inactive 08/17/2017 [facility] pantoprazole Notes: Tablet hubert uld not be chewed or crushed. (Same as: Protonix) Inactive 08/17/2017 [facility] NIFEdipine 90 mg oral tablet, extended release Notes: (Same as: Adalat CC,Procardia XL) "Do Not Crush" "Avoid grapefruit and grapefruit juice" No Longer Active 08/16/2017 [facility] carvedilol 25 mg, Route: PO, D rug form: TAB, BID, Dosing Weight 102.756, kg, Start date: 08/16/17 17:12:00 CDT, Duration: 30 day, Stop date: 09/15/17 17:00:00 CDT Inactive 08/16/2017 [facility] Hydralazine Hydrochloride 50 MG Oral Tablet 50 mg = 1 tab, PO, TID, # 90 tab, 3 Refill(s) Active 08/16/2017 [facility] NIFEdipine 90 mg oral tablet, extended release 90 mg = 1 tab, PO, Daily, # 30 tab, 0 Refill(s) Active 08/16/2017 [facility] Furosemide 40 MG Oral Tablet 4 0 mg = 1 tab, PO, BID, 0 Refill(s) Active 08/16/2017 [facility] pantoprazole 40 mg oral enteric coated tablet 40 mg = 1 tab, PO, Before Breakfast, # 30 tab, 0 Refill(s) Active 08/16/2017 [facility] atorvastatin 40 mg oral tablet 40 mg = 1 tab, PO, Bedtime, # 30 tab, 0 Refill(s) Active 08/16/2017 [facility] Morphine Notes: Preservative f ree. (Same as: Morphine Sulfate-PF) No Longer Active 08/16/2017 [facility] carvedilol Notes: Give with fo od. (Same As: Coreg) No Longer Active 08/16/2017 [facility] heparin Notes: porcine heparin No Longer Active 08/16/2017 [facility] carvedilol extended release 80 mg, Route: PO, Drug form: ERCAP, Daily, Dosing Weight 100, kg, Start date: 08/16/17 9:00:00 CDT, Duration: 30 day, Stop date: 09/14/17 9:00:00 CDT Inactive 08/16/2017 [facility] normal saline 0.9% IV 1,000 mL 1,000 mL, Rate: 50 ml/hr, Infuse over: 20 hr, Route: IV, Dosing Weight 100 kg, Total Volume: 1,000, Start date: 08/16/17 8:47:00 CDT, Duration: 30 day, Stop date: 09/15/17 8:46:00 CDT, 2.2, m2 No Longer Active 08/16/2017 [facility] Morphine Notes: Preservative f ree. (Same as: Morphine Sulfate-PF) Inactive 08/16/2017 [facility] Labetalol 20 mg, Route: IVP, D rug form: INJ, ONCE, Dosing Weight 100, kg, Start date: 08/16/17 7:48:00 CDT, Stop date: 08/16/17 7:48:00 CDT Inactive 08/16/2017 [facility] Hydralazine Notes: (Same as: A presoline) Push over 5 minutes No Longer Active 08/16/2017 [facility] Ondansetron Notes: (Same as: Z ofran ODT) No Longer Active 08/16/2017 [facility] Acetaminophen Notes: Do not ex ceed 4 gm/day. (Same as: Tylenol) No Longer Active 08/16/2017 [facility] Hydralazine Notes: (Same as: A presoline) Push over 5 minutes Inactive 08/16/2017 [facility] carvedilol extended release 80 mg, Route: PO, Drug form: ERCAP, ONCE, Dosing Weight 100, kg, Start date: 08/16/17 6:14:00 CDT, Stop date: 08/16/17 6:14:00 CDT Inactive 08/16/2017 [facility] Clonidine Hydrochloride 0.2 MG Oral Tablet 0.2 mg, Route: PO, Drug form: TAB, ONCE, Dosing Weight 100, kg, Priority: STAT, Start date: 08/16/17 6:13:00 CDT, Stop date: 08/16/17 6:13:00 CDT Inactive 08/16/2017 [facility] Labetalol 20 mg, Route: IVP, D rug form: INJ, ONCE, Dosing Weight 100, kg, Priority: STAT, Start date: 08/16/17 6:11:00 CDT, Stop date: 08/16/17 6:11:00 CDT Inactive 08/16/2017 [facility] tramadol hydrochloride 50 MG Oral Tablet 50 mg, Route: PO, Drug form: TAB, ONCE, Dosing Weight 100, kg, Priority: STAT, Start date: 08/16/17 6:04:00 CDT, Stop date: 08/16/17 6:04:00 CDT Inactive 08/16/2017 [facility] Zofran ODT 4 mg, Route: PO, Dr ug form: TABDIS, ONCE, Dosing Weight 100, kg, Priority: STAT, Start date: 08/16/17 6:03:00 CDT, Stop date: 08/16/17 6:03:00 CDT Inactive 08/16/2017 [facility] Insulin regular Notes: (Same a s: Humulin R and NovoLIN R) WASTE: F/P - Black; E - Municipal Trash Bin (Do not shake) Inactive 08/16/2017 [facility] d50 syringe 12.5 gm, 25 mL, Ro ramona: IVP, Drug Form: INJ, Dosing Weight 100, kg, ONCE, STAT, Start date: 08/16/17 0:12:00 CDT, Stop date: 08/16/17 0:12:00 CDT, 25 ml = 12.5 gm Inactive 08/16/2017 [facility] Kayexalate Notes: (sodium poly styrene sulfonate 15 gm/60 ml STEPHANIE) Shake well before use. (Same as: Kayexalate, SPS) Inactive 08/16/2017 [facility] Lasix Notes: (Same as: Lasix) MEDICATION WASTE Product Size: 40 mg Product Wasted: ___ mg Inactive 08/16/2017 [facility] Hydralazine Notes: (Same as: A presoline) Push over 5 minutes Inactive 08/16/2017 [facility] POLYETHYLENE GLYCOL 3350 142 MG/ML Oral Solution [Miralax] 17 gm, PO, Daily, X 31 day, # 527 gm, 0 Refill(s), Pharmacy: [facility] [id number] No Longer Active 06/28/2017 [facility] Docusate Sodium 100 MG Oral Capsule 100 mg = 1 cap, PO, Daily, # 30 cap, 0 Refill(s), Pharmacy: [facility] [id number] No Longer Active 06/28/2017 [facility] pantoprazole Notes: Tablet hubert uld not be chewed or crushed. (Same as: Protonix) Inactive 06/28/2017 [facility] atorvastatin Notes: (Same as: Lipitor) No Longer Active 06/28/2017 [facility] Furosemide 40 MG Oral Tablet [Lasix] Notes: (Same as: Lasix) May cause GI upset. Give with food or milk. No Longer Active 06/27/2017 [facility] heparin Notes: porcine heparin No Longer Active 06/27/2017 [facility] Insulin Lispro Notes: (Same as : Humalog ) Roll in palms of hands gently; Do not shake `vigorously. "Single Patient Use Only " WASTE: F/P - Black; E - Municipal Trash Bin Stable for 28 days at room temp erature. Expires in days from Date No Longer Active 06/27/2017 [facility] Glucagon 1 mg, Route: IM, Drug form: PDR/INJ, PRN, Dosing Weight 100.455, kg, PRN Blood Glucose Results, Start date: 06/27/17 13:43:00 IMMUNOLOGY SPECIALIST, Duration: 30 day, Stop date: 07/27/17 14:42:00 CDT No Longer Active 06/27/2017 [facility] Dextrose 50% Syringe 25 gm, 50 mL, Route: IVP, Drug Form: INJ, Dosing Weight 100.455, kg, PRN, PRN Blood Glucose Results, Start date: 06/27/17 13:43:00 IMMUNOLOGY SPECIALIST, Duration: 30 day, Stop date: 07/27/17 14:42:00 CDT No Longer Active 06/27/2017 [facility] Acetaminophen 325 MG / Hydrocodone Jeanie trate 5 MG Oral Tablet [[place] 5/325] Notes: (Same as: [place] 325/5) Do not ex ceed 4gm/day of acetaminophen. Inactive 06/27/2017 [facility] Metoclopramide 5 MG Oral Tablet Notes: (Same as: Reglan) Take 30 min before meals No Longer Active 06/27/2017 [facility] Docusate Sodium 100 MG Oral Capsule Notes: (Same as: Colace) (Do Not Crush) No Longer Active 06/27/2017 [facility] carvedilol Notes: Give with fo od. (Same As: Coreg) No Longer Active 06/27/2017 [facility] NIFEdipine 90 mg oral tablet, extended release Notes: (Same as: Adalat CC,Procardia XL) "Do Not Crush" "Avoid grapefruit and grapefruit juice" Inactive 06/27/2017 [facility] Hydralazine Hydrochloride 50 MG Oral Tablet Notes: (Same as: Apresoline) May interfere w/enteral feedings Take With Food No Longer Active 06/27/2017 [facility] carvedilol 25 mg oral tablet 2 5 mg = 1 tab, PO, BID, # 180 tab, 0 Refill(s) Active 06/27/2017 [facility] heparin 10,000 unit, 10 mL, Ro ramona: DIALYSIS, Drug form: INJ, ONCALL, Dosing Weight 100.455, kg, Start date: 06/27/17 11:00:00 IMMUNOLOGY SPECIALIST, Duration: 1 doses or times No Longer Active 06/27/2017 [facility] Zofran Notes: (Same as: Zofran ) MEDICATION WASTE Product Size: 4 mg Product Wasted: ___ mg No Longer Active 06/27/2017 [facility] Dilaudid Notes: Same as: Dilau did No Longer Active 06/27/2017 [facility] Hydralazine Notes: (Same as: A presoline) Push over 5 minutes Inactive 06/27/2017 [facility] Morphine Notes: (Same as:MORPh ine Sulfate) Inactive 06/27/2017 [facility] Zofran Notes: (Same as: Zofran ) MEDICATION WASTE Product Size: 4 mg Product Wasted: ___ mg Inactive 06/27/2017 [facility] Hydralazine Hydrochloride 50 MG Oral Tablet 50 mg = 1 tab, PO, TID, # 90 tab, 0 Refill(s), Pharmacy: [facility] [id number], Updated order with hydralazine 50 mg 3 times daily. Discontinue hydralazine 75 mg 3 times daily No Longer Active 06/16/2017 [facility] NIFEdipine 90 mg oral tablet, extended release 90 mg = 1 tab, PO, Daily, # 30 tab, 0 Refill(s), Pharmacy: [facility] [place] [facility] [id number] No Longer Active 06/16/2017 [facility] Docusate Sodium 100 MG Oral Capsule 100 mg = 1 cap, PO, BID, PRN as needed for constipation, # 12 cap, 0 Refill(s), Pharmacy: [facility] [id number] No Longer Active 06/16/2017 [facility] Alprazolam 0.5 MG Oral Tablet [Xanax] 0.5 mg = 1 tab, PO, BID, PRN Anxiety, X 3 day, # 5 tab, 0 Refill(s) No Longer Active 06/16/2017 [facility] Hydralazine Hydrochloride 25 MG Oral Tablet 75 mg = 3 tab, PO, TID, # 270 tab, 0 Refill(s), Pharmacy: [place] [id number] Inactive 06/16/2017 [facility] Furosemide 40 MG Oral Tablet [Lasix] 40 mg = 1 tab, PO, BID, # 60 tab, 0 Refill(s), Pharmacy: [place] [id number] No Longer Active 06/16/2017 [facility] polyethylene glycol 3350 oral powder for reconstitutio n 17 gm, PO, BID, X 7 day, # 12 ea, 0 Refill(s), Pharmacy: [facility] [id number] No Longer Active 06/16/2017 [facility] atorvastatin 40 mg oral tablet 40 mg = 1 tab, PO, Bedtime, # 30 tab, 0 Refill(s), Pharmacy: [facility] [place] [facility] [id number] No Longer Active 06/16/2017 [facility] pantoprazole 40 mg oral enteric coated tablet 40 mg = 1 tab, PO, Before Breakfast, # 30 tab, 0 Refill(s), Pharmacy: [facility] [id number] No Longer Active 06/16/2017 [facility] tramadol hydrochloride 50 MG Oral Tablet 50 mg = 1 tab, PO, Q8H, PRN Pain Score 6-10, X 5 day, # 15 tab, 0 Refill(s) No Longer Active 06/16/2017 [facility] Advocate Arm Blood Pressure Monitor 1 ea, MISC, ONCE, # 1 ea, 0 Refill(s) No Longer Active 06/16/2017 [facility] Metoclopramide 5 MG Oral Tablet 5 mg = 1 tab, PO, QID- Before Meals, X 14 day, # 56 tab, 0 Refill(s), Pharmacy: [facility] [id number] No Longer Active 06/16/2017 [facility] NS (Bolus) IV 250 mL, 8.33 ml/ hr, Infuse Over: 30 hr, Route: IV, 250, Drug form: INJ, ONCE, Dosing Weight 105 kg, Start date: 06/16/17 10:00:00 IMMUNOLOGY SPECIALIST, Stop date: 06/16/17 10:00:00 IMMUNOLOGY SPECIALIST Inactive 06/16/2017 [facility] heparin 10,000 unit, 10 mL, Ro ramona: DIALYSIS, Drug form: INJ, ONCALL, Dosing Weight 105, kg, Start date: 06/16/17 9:00:00 IMMUNOLOGY SPECIALIST, Duration: 1 doses or times Inactive 06/16/2017 [facility] Calcium Chloride Notes: WASTE: F/P - Sink; E - Municipal Trash Bin Inactive 06/16/2017 [facility] Alprazolam 0.5 MG Oral Tablet [Xanax] Notes: With food or milk (Same as: Xanax) Inactive 06/16/2017 [facility] sodium chloride 0.9% (Priming and Maintenance) 2,000 mL, 0 ml/hr, Infuse Over: 0 hr, Route: DIALYSIS, 2,000, Drug form: INJ, PRN, Dosing Weight 105 kg, Start date: 06/16/17 8:35:00 IMMUNOLOGY SPECIALIST, Duration: 24 hr, Stop date: 06/17/17 8:34:00 IMMUNOLOGY SPECIALIST, For Use by Dialysis nurse ONLY, PRN Dialysis Inactive 06/16/2017 [facility] Tramadol Notes: Not to exceed 400mg/day. (Same As: Ultram) Inactive 06/16/2017 [facility] Calcium Gluconate Notes: WASTE : F/P - Sink; E - Municipal Trash Bin Inactive 06/16/2017 [facility] Acetaminophen 325 MG / Hydrocodone Jeanie trate 5 MG Oral Tablet [[place] 5/325] Notes: (Same as: [place] 325/5) Do not ex ceed 4gm/day of acetaminophen. Inactive 06/16/2017 [facility] tramadol hydrochloride 50 MG Oral Tablet 50 mg, Route: PO, Drug form: TAB, Q6H, Dosing Weight 105, kg, PRN, Start date: 06/15/17 23:16:00 IMMUNOLOGY SPECIALIST, Duration: 30 day, Stop date: 07/15/17 23:15:00 CDT, Pain Score 1-6 No Longer Active 06/16/2017 [facility] heparin 10,000 unit, 10 mL, Ro ramona: DIALYSIS, Drug form: INJ, ONCALL, Dosing Weight 105, kg, Start date: 06/15/17 11:00:00 IMMUNOLOGY SPECIALIST, Duration: 1 doses or times No Longer Active 06/15/2017 [facility] Albuterol 0.833 MG/ML / Ipratropium Brom winifred 0.167 MG/ML Inhalant Solution [DuoNeb] Notes: (Same as: Duoneb) No Longer Active 06/15/2017 [facility] Dilaudid Notes: (Same as: Dila udid) Inactive 06/15/2017 [facility] NIFEdipine 90 mg oral tablet, extended release Notes: (Same as: Adalat CC, Procardia XL) Give on empty stomach. Take 1 hour before or 2 hours after meal; "Avoid grapefruit and grapefruit juice". Do not crush No Longer Active 06/15/2017 [facility] Miralax Notes: Dissolve in 8 o z of water or juice. (Same as: Miralax) No Longer Active 06/15/2017 [facility] Lactulose 667 MG/ML Oral Solution Notes: (Same as:Chronulac) No Longer Active 06/15/2017 [facility] normal saline 0.9% IV 2,000 mL 2,000 mL, Rate: 999 ml/hr, Infuse over: 2 hr, Route: DIALYSIS, Dosing Weight 105 kg, Total Volume: 2,000, Priority: NOW, Start date: 06/15/17 8:05:00 IMMUNOLOGY SPECIALIST, Duration: 30 day, Stop date: 07/15/17 8:04:00 CDT, 2.26, m2 No Longer Active 06/15/2017 [facility] pantoprazole Notes: Tablet hubert uld not be chewed or crushed. (Same as: Protonix) N o Longer Active 06/15/2017 [facility] carvedilol Notes: Give with fo od. (Same As: Coreg) No Longer Active 06/15/2017 [facility] atorvastatin Notes: (Same as: Lipitor) No Longer Active 06/15/2017 [facility] heparin sodium, porcine 2500 UNT/ML Injectable Solutio n Notes: porcine heparin No Longer Active 06/15/2017 [facility] Hydralazine Notes: (Same as: A presoline) Push over 5 minutes No Longer Active 06/15/2017 [facility] sodium chloride 0.9% (Priming and Maintenance) 2,000 mL, 0 ml/hr, Infuse Over: 0 hr, Route: IV, 2,000, Drug form: INJ, PRN, Dosing Weight 105 kg, Start date: 06/14/17 18:22:00 IMMUNOLOGY SPECIALIST, Duration: 24 hr, Stop date: 06/15/17 18:21:00 IMMUNOLOGY SPECIALIST, For Use by Dialysis nurse ONLY, PRN Dialysis No Longer Active 06/15/2017 [facility] Reglan Notes: (Same as: Reglan ) Take 30 min before meals No Longer Active 06/15/2017 [facility] Phenergan Notes: Do not give I V push. (Same as: Phenergan) No Longer Active 06/14/2017 [facility] Hydralazine Hydrochloride 25 MG Oral Tablet Notes: (Same as: Apresoline) May interfere w/enteral feedings Take With Food. No Longer Active 06/14/2017 [facility] Furosemide 40 MG Oral Tablet [Lasix] Notes: (Same as: Lasix) May cause GI upset. Give with food or milk. No Longer Active 06/14/2017 [facility] Insulin Lispro Notes: (Same as : Humalog ) Roll in palms of hands gently; Do not shake `vigorously. "Single Patient Use Only " WASTE: F/P - Black; E - Municipal Trash Bin Stable for 28 days at room temp erature. Expires in days from Date No Longer Active 06/14/2017 [facility] Dextrose 50% Syringe 12.5 gm, 25 mL, Route: IVP, Drug Form: INJ, Dosing Weight 105, kg, PRN, PRN Blood Glucose Results, Start date: 06/14/17 16:14:00 IMMUNOLOGY SPECIALIST, Duration: 30 day, Stop date: 07/14/17 17:13:00 CDT No Longer Active 06/14/2017 [facility] Glucagon 1 mg, Route: IM, Drug form: PDR/INJ, PRN, Dosing Weight 105, kg, PRN Blood Glucose Results, Start date: 06/14/17 16:14:00 IMMUNOLOGY SPECIALIST, Duration: 30 day, Stop date: 07/14/17 17:13:00 CDT No Longer Active 06/14/2017 [facility] Morphine Notes: Preservative f ree. (Same as: Morphine Sulfate-PF) No Longer Active 06/14/2017 [facility] Acetaminophen Notes: Do not ex ceed 4 gm/day. (Same as: Tylenol) No Longer Active 06/14/2017 [facility] Docusate Notes: (Same as: Cola ce) (Do Not Crush) No Longer Active 06/14/2017 [facility] Ondansetron Notes: (Same as: Barron cain) MEDICATION WASTE Product Size: 4 mg Product Wasted: ___ mg No Longer Active 06/14/2017 [facility] Reglan 5 mg, Route: IV, ONCE, Dosing Weight 105, kg, Start date: 06/14/17 14:37:00 IMMUNOLOGY SPECIALIST, Stop date: 06/14/17 14:37:00 IMMUNOLOGY SPECIALIST Inactive 06/14/2017 [facility] Dilaudid Notes: (Same as: Dila udid) Inactive 06/14/2017 [facility] Famotidine 20 mg, Route: IVP, ONCE, Dosing Weight 105, kg, Priority: STAT, Start date: 06/14/17 11:17:00 IMMUNOLOGY SPECIALIST, Stop date: 06/14/17 11:17:00 IMMUNOLOGY SPECIALIST Inactive 06/14/2017 [facility] Saline Flush 0.9% Notes: (Same as: BD Posiflush) No Longer Active 06/14/2017 [facility] Ondansetron 4 mg, Route: IVP, ONCE, Dosing Weight 105, kg, Priority: STAT, Start date: 06/14/17 11:17:00 IMMUNOLOGY SPECIALIST, Stop date: 06/14/17 11:17:00 IMMUNOLOGY SPECIALIST Inactive 06/14/2017 [facility] Hydromorphone 1 mg, Route: IVP , ONCE, Dosing Weight 105, kg, Priority: STAT, Start date: 06/14/17 11:17:00 IMMUNOLOGY SPECIALIST, Stop date: 06/14/17 11:17:00 IMMUNOLOGY SPECIALIST Inactive 06/14/2017 [facility] Levofloxacin 500 mg, 1 tab, Ro ramona: PO, Drug form: TAB, Q48H, Dosing Weight 117.591, kg, Start date: 04/14/17 17:00:00 IMMUNOLOGY SPECIALIST, Duration: 2 day, Stop date: 04/14/17 17:00:00 IMMUNOLOGY SPECIALIST, ABX Indication: Urinary Tract Infection No Longer Active 04/14/2017 [facility] Metoclopramide 10 MG Oral Tablet 10 mg = 1 tab, PO, TID, X 30 day, # 90 tab, 1 Refill(s) Active 04/13/2017 [facility] NIFEdipine 90 mg oral tablet, extended release 90 mg = 1 tab, PO, Daily, # 90 tab, 0 Refill(s) Active 04/13/2017 [facility] carvedilol 25 mg oral tablet 2 5 mg = 1 tab, PO, Q12H, # 90 tab, 3 Refill(s) Active 04/13/2017 [facility] Furosemide 40 MG Oral Tablet [Lasix] 40 mg = 1 tab, PO, BID, # 60 tab, 3 Refill(s) Active 04/13/2017 [facility] Hydralazine Hydrochloride 25 MG Oral Tablet 75 mg = 3 tab, PO, TID, # 90 tab, 3 Refill(s) Active 04/13/2017 [facility] pantoprazole 40 mg oral enteric coated tablet 40 mg = 1 tab, PO, Before Breakfast, # 30 tab, 2 Refill(s) Active 04/13/2017 [facility] atorvastatin 40 mg oral tablet 40 mg = 1 tab, PO, Bedtime, # 90 tab, 3 Refill(s) Active 04/13/2017 [facility] Metoclopramide 10 MG Oral Tablet 10 mg = 1 tab, PO, TID, X 30 day, # 90 tab, 1 Refill(s) Inactive 04/13/2017 [facility] NIFEdipine 90 mg oral tablet, extended release 90 mg, 1 tab, Route: PO, Drug form: ERTAB, Daily, Dosing Weight 117.591, kg, Start date: 04/13/17 9:00:00 IMMUNOLOGY SPECIALIST, Duration: 30 day, Stop date: 05/12/17 9:00:00 IMMUNOLOGY SPECIALIST Inactive 04/13/2017 [facility] pantoprazole Notes: Tablet hubert uld not be chewed or crushed. (Same as: Protonix) Inactive 04/13/2017 [facility] Hydroxyzine Notes: (Same as: V istaril) Inactive 04/13/2017 [facility] Hydromorphone Notes: Same as D ilaudid No Longer Active 04/13/2017 [facility] carvedilol 25 mg, 1 tab, Route : PO, Drug form: TAB, Q12H, Dosing Weight 117.591, kg, Start date: 04/12/17 21:00:00 IMMUNOLOGY SPECIALIST, Duration: 30 day, Stop date: 05/12/17 9:00:00 IMMUNOLOGY SPECIALIST No Longer Active 04/13/2017 [facility] atorvastatin Notes: (Same as: Lipitor) No Longer Active 04/13/2017 [facility] Dilaudid 1 mg, Route: IVP, ONC E, Dosing Weight 117.591, kg, Priority: STAT, Start date: 04/12/17 19:23:00 IMMUNOLOGY SPECIALIST, Stop date: 04/12/17 19:23:00 IMMUNOLOGY SPECIALIST Inactive 04/13/2017 [facility] Hydralazine Hydrochloride 100 MG Oral Tablet 100 mg = 1 tab, PO, BID No Longer Active 04/12/2017 [facility] furosemide 80 mg oral tablet 8 0 mg = 1 tab, PO, BID No Longer Active 04/12/2017 [facility] Metoclopramide 10 MG Oral Tablet 10 mg = 1 tab, PO, TID No Longer Active 04/12/2017 [facility] carvedilol 25 mg oral tablet 2 5 mg = 1 tab, PO, BID No Longer Active 04/12/2017 [facility] lisinopril 40 mg oral tablet 4 0 mg = 1 tab, PO, Daily No Longer Active 04/12/2017 [facility] Furosemide 40 MG Oral Tablet [Lasix] 40 mg, 1 tab, Route: PO, Drug form: TAB, BID, Dosing Weight 117.591, kg, Start date: 04/12/17 17:00:00 IMMUNOLOGY SPECIALIST, Duration: 30 day, Stop date: 05/12/17 9:00:00 IMMUNOLOGY SPECIALIST No Longer Active 04/12/2017 [facility] sevelamer Notes: Same as: Renv saritha No Longer Active 04/12/2017 [facility] Levofloxacin Notes: Do not giv e w/antacids, dairy pdt & minerals Take 1 hr before or 2 hr after dairy products Inactive 04/12/2017 [facility] Reglan Notes: (Same as: Reglan) No Longer Active 04/12/2017 [facility] Acetaminophen 325 MG / Hydrocodone Jeanie trate 5 MG Oral Tablet 1 tab, Route: PO, Drug Form: TAB, Dosing Weight 117.591, kg, ONCE, STAT, Start date: 04/12/17 13:09:00 IMMUNOLOGY SPECIALIST, Stop date: 04/12/17 13:09:00 IMMUNOLOGY SPECIALIST Inactive 04/12/2017 [facility] Hydralazine Hydrochloride 25 MG Oral Tablet 75 mg, 3 tab, Route: PO, Drug form: TAB, TID, Dosing Weight 117.591, kg, Start date: 04/12/17 13:00:00 IMMUNOLOGY SPECIALIST, Duration: 30 day, Stop date: 05/12/17 9:00:00 IMMUNOLOGY SPECIALIST No Longer Active 04/12/2017 [facility] Luis Notes: (Same as: Luis ) MEDICATION WASTE Product Size: 4 mg Product Wasted: ___ mg No Longer Active 04/12/2017 [facility] Lisinopril PO, Daily, 0 Refill (s) Inactive 04/12/2017 [facility] Furosemide 40 MG Oral Tablet [Lasix] 40 mg = 1 tab, PO, BID, 0 Refill(s) Inactive 04/12/2017 [facility] Reglan 5 mg, Route: IVP, Drug form: INJ, Q6H, Dosing Weight 117.591, kg, PRN Nausea & Vomiting, Start date: 04/12/17 9:57:00 IMMUNOLOGY SPECIALIST, Duration: 30 day, Stop date: 05/12/17 9:56:00 IMMUNOLOGY SPECIALIST Inactive 04/12/2017 [facility] Insulin regular 60 units) W ASTE: F/P - Black; E - Municipal Trash Bin Stable for 28 days at room temperature Expires in days from Date N o Longer Active 04/12/2017 [facility] Glucagon 1 mg, Route: IM, Drug form: PDR/INJ, PRN, Dosing Weight 117.591, kg, PRN Blood Glucose Results, Start date: 04/12/17 9:56:00 IMMUNOLOGY SPECIALIST, Duration: 30 day, Stop date: 05/12/17 9:55:00 IMMUNOLOGY SPECIALIST No Longer Active 04/12/2017 [facility] Dextrose 50% Syringe 12.5 gm, 25 mL, Route: IVP, Drug Form: INJ, Dosing Weight 117.591, kg, PRN, PRN Blood Glucose Results, Start date: 04/12/17 9:56:00 IMMUNOLOGY SPECIALIST, Duration: 30 day, Stop date: 05/12/17 9:55:00 IMMUNOLOGY SPECIALIST No Longer Active 04/12/2017 [facility] Acetaminophen Notes: Do not ex ceed 4 gm/day. (Same as: Tylenol) No Longer Active 04/12/2017 [facility] Ondansetron 4 mg, Route: IVP, Drug form: INJ, ONCE, Dosing Weight 117.591, kg, Priority: STAT, Start date: 04/12/17 8:57:00 IMMUNOLOGY SPECIALIST, Stop date: 04/12/17 8:57:00 IMMUNOLOGY SPECIALIST Inactive 04/12/2017 [facility] Dilaudid 1 mg, Route: IV, ONCE , Dosing Weight 117.591, kg, Start date: 04/12/17 6:11:00 IMMUNOLOGY SPECIALIST, Stop date: 04/12/17 6:11:00 IMMUNOLOGY SPECIALIST Inactive 04/12/2017 [facility] Labetalol 10 mg, Route: IV, ON CE, Dosing Weight 117.591, kg, Start date: 04/12/17 6:01:00 IMMUNOLOGY SPECIALIST, Stop date: 04/12/17 6:01:00 IMMUNOLOGY SPECIALIST Inactive 04/12/2017 [facility] Reglan Notes: (Same as: Reglan) Inactive 04/12/2017 [facility] NIFEdipine 90 mg oral tablet, extended release Notes: (Same as: Adalat CC, Procardia XL) Give on empty stomach. Take 1 hour before or 2 hours after meal; "Avoid grapefruit and grapefruit juice". Do not crush Inactive 04/12/2017 [facility] Hydralazine Hydrochloride 25 MG Oral Tablet Notes: (Same as: Apresoline) May interfere w/enteral feedings Take With Food. Inactive 04/12/2017 [facility] carvedilol Notes: Give with fo od. (Same As: Coreg) Inactive 04/12/2017 [facility] Dilaudid 1 mg, Route: IV, ONCE , Dosing Weight 117.591, kg, Start date: 04/12/17 5:18:00 IMMUNOLOGY SPECIALIST, Stop date: 04/12/17 5:18:00 IMMUNOLOGY SPECIALIST Inactive 04/12/2017 [facility] Nitroglycerin Notes: (Same as: Tridil) Final conc = 0.4 mg/ml. Premix bottle. Inactive 04/12/2017 [facility] Dilaudid 1 mg, Route: IV, ONCE , Dosing Weight 117.591, kg, Start date: 04/12/17 3:44:00 IMMUNOLOGY SPECIALIST, Stop date: 04/12/17 3:44:00 IMMUNOLOGY SPECIALIST Inactive 04/12/2017 [facility] Nitroglycerin 50 mg, 250 mL, R ate: Titrate, Start Dose: 0.25 microgram/kg/min, Titration: 0.2 microgram/kg/min every 5 minutes, Goal(s): Chest pain and SBP between 100 - 150 mmHg, Max Dose: 3 microgram/kg/min, Route: IV, Dosing Weight 117.591 kg, Total Volume: 250,... Inactive 04/12/2017 [facility] Saline Flush 0.9% Notes: Same as: BD Posiflush Sterile No Longer Active 04/12/2017 [facility] ferrous sulfate Notes: Give wi th food. "Do Not Crush" No Longer Active 01/20/2017 [facility] ertapenem 1000 MG Injection [Invanz] 1 gm, IV, Q24H, X 7 day, # 7 ea, 0 Refill(s), Pharmacy: [facility] [id number] Active 01/19/2017 [facility] Proctalib Notes: (Same as: Procr it) epoetin mira 3000 unit/1 ml VL. For dialysis use only WASTE: F/P - Red; E -Red MEDICATION WASTE Product Size: 3000 unit Product Wasted: ___ unit No Longer Active 01/18/2017 [facility] epoetin mira Notes: (Same as: Procrit) epoetin mira 2000 unit/1 ml VL For dialysis use only (Epogen) WASTE: F/P - Red; E -Red MEDICATION WASTE Product Size: 2000 mg Product Wasted: ___ mg No Longer Active 01/18/2017 [facility] meropenem Notes: Same as Dionisio horton MEDICATION WASTE Product Size: 500 mg Product Wasted: ___ mg No Longer Active 01/18/2017 [facility] sodium chloride 0.9% 1000 ml INJ 1,000 mL 1,000 mL, Rate: 75 ml/hr, Infuse over: 13.3 hr, Route: IV, Dosing Weight 117.591 kg, Total Volume: 1,000, Start date: 01/18/17 11:16:00 CDT, Duration: 3 doses or times, Stop date: 01/20/17 3:09:00 CDT No Longer Active 01/18/2017 [facility] Reglan Notes: (Same as: Reglan) No Longer Active 01/18/2017 [facility] Kayexalate Notes: (sodium poly styrene sulfonate 15 gm/60 ml STEPHANIE) Shake well before use. (Same as: Kayexalate, SPS) Inactive 01/17/2017 [facility] Sodium Bicarbonate Notes: (sod ium bicarb 8.4% (1 mEq/ml) 50 ml syringe) Inactive 01/17/2017 [facility] d50 syringe 25 gm, 50 mL, Rout e: IV, Drug Form: INJ, Dosing Weight 117.591, kg, ONCE, Start date: 01/17/17 6:55:00 CDT, Stop date: 01/17/17 6:55:00 CDT Inactive 01/17/2017 [facility] Insulin, Aspart, Human Notes: Non-Formulary Drug (Same as: NovoLOG) Roll in palms of hands gently; Do not shake vigorously. "single patient use only" WASTE: F/P - Black; E - Municipal Trash Bin Stable for 28 da ys at room temperature. Expires in days from Date Inactive 01/17/2017 [facility] Morphine Notes: (Same as:MORPh ine Sulfate) No Longer Active 01/16/2017 [facility] Kayexalate Notes: (sodium poly styrene sulfonate 15 gm/60 ml STEPHANIE) Shake well before use. (Same as: Kayexalate, SPS) Inactive 01/16/2017 [facility] Kayexalate Notes: (sodium poly styrene sulfonate 30 gm/120 ml ZEESHAN) (Same as: Kayexalate, SPS) Shake well before use. No Longer Active 01/16/2017 [facility] Pyridium 100 mg, Route: PO, Dr ug form: TAB, TID-After Meals, Dosing Weight 117.591, kg, Start date: 01/15/17 17:30:00 CDT, Duration: 2 day, Stop date: 01/17/17 12:30:00 CDT Inactive 01/15/2017 [facility] meropenem + sodium chloride 0.9% INJ 100 mL Notes: Same as Merrem MEDICATION WASTE Product Size: 500 mg Product Wasted: ___ mg Active 01/15/2017 [facility] Dilaudid Notes: Same as: Dilau did No Longer Active 01/15/2017 [facility] Sodium polystyrene sulfonate N otes: (sodium polystyrene sulfonate 15 gm/60 ml STEPHANIE) Shake well before use. (Same as: Kayexalate, SPS) Inactive 01/15/2017 [facility] Dilaudid Notes: Same as: Dilau did No Longer Active 01/14/2017 [facility] Minoxidil Notes: (Same as:Stephanie ten) No Longer Active 01/14/2017 [facility] Hydralazine Hydrochloride 25 MG Oral Tablet Notes: (Same as: Apresoline) May interfere w/enteral feedings Take With Food. No Longer Active 01/14/2017 [facility] carvedilol Notes: Give with fo od. (Same As: Coreg) No Longer Active 01/14/2017 [facility] Metoclopramide 5 MG Oral Tablet [Reglan] Notes: (Same as: Reglan) Take 30 min before meals No Longer Active 01/14/2017 [facility] Procardia XL Notes: (Same as: Adalat CC,Procardia XL) "Do Not Crush" "Avoid grapefruit and grapefruit juice" No Longer Active 01/14/2017 [facility] meropenem Notes: Same as Merre m MEDICATION WASTE Product Size: 500 mg Product Wasted: ___ mg No Longer Active 01/14/2017 [facility] NIFEdipine 90 mg oral tablet, extended release Notes: (Same as: Adalat CC,Procardia XL) "Do Not Crush" "Avoid grapefruit and grapefruit juice" Inactive 01/14/2017 [facility] Morphine Notes: (Same as:MORPh ine Sulfate) Inactive 01/14/2017 [facility] Insulin Lispro Notes: Roll in palms of hands gently; Do not shake `vigorously. (Same as: Humalog ) "Single Patient Use Only " WASTE: F/P - Black; E - Municipal Trash Bin Stable for 28 days at room temperature. Expires in days from Date No Longer Active 01/14/2017 [facility] Glucagon 1 mg, Route: IM, Drug form: PDR/INJ, PRN, Dosing Weight 105.455, kg, PRN Blood Glucose Results, Start date: 01/14/17 4:46:00 CDT, Duration: 30 day, Stop date: 02/13/17 4:45:00 CDT No Longer Active 01/14/2017 [facility] Dextrose 50% Syringe 25 gm, 50 mL, Route: IVP, Drug Form: INJ, Dosing Weight 105.455, kg, PRN, PRN Blood Glucose Results, Start date: 01/14/17 4:46:00 CDT, Duration: 30 day, Stop date: 02/13/17 4:45:00 CDT No Longer Active 01/14/2017 [facility] Zofran Notes: (Same as: Zofran ) MEDICATION WASTE Product Size: 4 mg Product Wasted: ___ mg Inactive 01/14/2017 [facility] Morphine Notes: (Same as:MORPh ine Sulfate) Inactive 01/14/2017 [facility] Acetaminophen 300 MG / Codeine Phosphate 30 MG Oral Tablet [Tylenol with Codeine #3] 1 tab, PO, Q4H, PRN Pain, X 7 day, # 42 tab, 0 Refill(s) Active 01/10/2017 [facility] influenza virus vaccine, inactivated Notes: (Same as: Fluzone Quadrivalent, Fluarix Quadrivalent) For 3 years of age and older (0.5 mL IM) Shake well before use Inactive 01/10/2017 [facility] Sodium Chloride 0.9% IV 1000 mL 1,000 mL, Rate: 75 ml/hr, Infuse over: 13.3 hr, Route: IV, Dosing Weight 102.841 kg, Total Volume: 1,000, Start date: 01/10/17 17:30:00 CDT, Duration: 30 day, Stop date: 02/09/17 17:29:00 CDT Inactive 01/10/2017 [facility] Poonam Notes: (Same as: Poonam ) Refrigerate. NOT COMPATIBLE WITH D5W. Stable in refrigerator for 24 hours MEDICATION WASTE Product Size: 1000 mg Product Wasted: ___ mg Inactive 01/10/2017 [facility] Metoclopramide 5 MG Oral Tablet [Reglan] 5 mg = 1 tab, PO, TID-Before Meals, # 90 tab, 0 Refill(s), Pharmacy: [place] [id number] Active 01/10/2017 [facility] NIFEdipine 90 mg oral tablet, extended release 90 mg = 1 tab, PO, Daily, # 90 tab, 0 Refill(s), Pharmacy: [place] [id number] Active 01/10/2017 [facility] Metformin hydrochloride 1000 MG Oral Tablet 1,000 mg = 1 tab, PO, BID, # 180 tab, 0 Refill(s), Pharmacy: [place] [id number] Active 01/10/2017 [facility] carvedilol 12.5 mg oral tablet 25 mg = 2 tab, PO, Q12H, # 360 tab, 0 Refill(s), Pharmacy: [place] [id number] Active 01/10/2017 [facility] minoxidil 2.5 mg oral tablet 2 .5 mg = 1 tab, PO, Q12H, # 180 tab, 0 Refill(s), Pharmacy: [place] [id number] Active 01/10/2017 [facility] Hydralazine Hydrochloride 25 MG Oral Tablet 75 mg = 3 tab, PO, TID, # 810 tab, 0 Refill(s), Pharmacy: [place] [id number] Active 01/10/2017 [facility] Saline Flush 0.9% Notes: (Same as: BD Posiflush) Inactive 01/10/2017 [facility] Lidocaine Hydrochloride 10 MG/ML Injectable Solution Notes: (Same as: Xylocaine) Inactive 01/10/2017 [facility] Saline Flush 0.9% Notes: (Same as: BD Posiflush) Inactive 01/10/2017 [facility] Calcium Gluconate Notes: WASTE : F/P - Sink; E - Municipal Trash Bin Inactive 01/10/2017 [facility] NIFEdipine 60 mg oral tablet, extended release Notes: (Same as: Adalat CC, Procardia XL) Give on empty stomach. Take 1 hour before or 2 hours after meal; "Avoid grapefruit and grapefruit juice". Do not crush No Longer Active 01/09/2017 [facility] meropenem Notes: Same as Dionisio horton MEDICATION WASTE Product Size: 500 mg Product Wasted: ___ mg No Longer Active 01/07/2017 [facility] Zyvox Notes: Protect from ligh t. (Same as: Zyvox) No Longer Active 01/06/2017 [facility] Dilaudid Notes: Same as: Dilau did No Longer Active 01/06/2017 [facility] Diflucan Notes: (Same as: Difl ucan) Inactive 01/06/2017 [facility] Diflucan Notes: (Same as: Difl ucan) Inactive 01/06/2017 [facility] Minoxidil Notes: (Same as:Stephanie ten) No Longer Active 01/06/2017 [facility] Reglan Notes: (Same as: Reglan ) Take 30 min before meals Inactive 01/06/2017 [facility] d50 syringe 25 gm, 50 mL, Rout e: IV, Drug Form: INJ, Dosing Weight 102.841, kg, ONCE, Start date: 01/06/17 7:28:00 CDT, Stop date: 01/06/17 7:28:00 CDT Inactive 01/06/2017 [facility] Insulin regular Notes: (Same a s: Humulin R and NovoLIN R) WASTE: F/P - Black; E - Municipal Trash Bin (Do not shake) Inactive 01/06/2017 [facility] sodium bicarbonate 8.4% Notes: (sodium bicarb 8.4% (1 mEq/ml) 50 ml syringe) Inactiv e 01/06/2017 [facility] Kayexalate Notes: (sodium poly styrene sulfonate 15 gm/60 ml STEPHANIE) Shake well before use. (Same as: Kayexalate, SPS) Inactive 01/06/2017 [facility] Dilaudid Notes: Same as: Dilau did No Longer Active 01/06/2017 [facility] Acetaminophen 325 MG / Hydrocodone Jeanie trate 5 MG Oral Tablet [[place] 5/325] Notes: (Same as: [place] 325/5) Do not ex ceed 4gm/day of acetaminophen. No Longer Activ e 01/05/2017 [facility] NIFEdipine 30 mg oral tablet, extended release Notes: (Same as: Adalat CC, Procardia XL) Give on empty stomach. Take 1 hour before or 2 hours after meal; "Avoid grapefruit and grapefruit juice". Do not crush Inactive 01/05/2017 [facility] Hydralazine Notes: (Same as: A presoline) Push over 5 minutes Inactive 01/05/2017 [facility] Zofran Notes: (Same as: Zofran ) MEDICATION WASTE Product Size: 4 mg Product Wasted: ___ mg No Longer Active 01/05/2017 [facility] Ciprofloxacin Notes: Do not re frigerate No Longer Active 01/04/2017 [facility] Dilaudid Notes: Same as: Dilau did No Longer Active 01/04/2017 [facility] Pepcid Notes: (Same as: Pepcid) No Longer Active 01/04/2017 [facility] NIFEdipine 60 mg oral tablet, extended release Notes: (Same as: Adalat CC,Procardia XL) "Do Not Crush" "Avoid grapefruit and grapefruit juice" No Longer Active 01/04/2017 [facility] Hydralazine Hydrochloride 25 MG Oral Tablet Notes: (Same as: Apresoline) May interfere w/enteral feedings Take With Food. No Longer Active 01/04/2017 [facility] carvedilol Notes: Give with fo od. (Same As: Coreg) No Longer Active 01/04/2017 [facility] Metoclopramide 5 MG Oral Tablet [Reglan] Notes: (Same as: Reglan) Take 30 min before meals No Longer Active 01/04/2017 [facility] linezolid Notes: (Same as: Zyv ox) No Longer Active 01/04/2017 [facility] Dilaudid Notes: Same as: Dilau did Inactive 01/04/2017 [facility] Insulin Lispro 60 units) [place] IN[place]: F/P - Black; E - Municipal Trash Bin Stable for 28 days at room temperature. Expires in days from Date N o Longer Active 01/04/2017 [facility] Glucagon 1 mg, Route: IM, Drug form: PDR/INJ, PRN, Dosing Weight 102.841, kg, PRN Blood Glucose Results, Start date: 01/03/17 22:59:00 CDT, Duration: 30 day, Stop date: 02/02/17 22:58:00 CDT No Longer Active 01/04/2017 [facility] Dextrose 50% Syringe 12.5 gm, 25 mL, Route: IVP, Drug Form: INJ, Dosing Weight 102.841, kg, PRN, PRN Blood Glucose Results, Start date: 01/03/17 22:59:00 CDT, Duration: 30 day, Stop date: 02/02/17 22:58:00 CDT No Longer Active 01/04/2017 [facility] sodium chloride 0.9% 1000 ml INJ 1,000 mL 1,000 mL, Rate: 50 ml/hr, Infuse over: 20 hr, Route: IV, Dosing Weight 102.841 kg, Total Volume: 1,000, Start date: 01/03/17 22:57:00 CDT, Stop date: 02/02/17 22:56:00 CDT No Longer Active 01/04/2017 [facility] Saline Flush 0.9% Notes: (Same as: BD Posiflush) No Longer Active 01/04/2017 [facility] Morphine 2 mg, 1 mL, Route: IV P, Drug form: SOLN, Q4H, Dosing Weight 102.841, kg, PRN Pain Score 7-10, Start date: 01/03/17 22:57:00 CDT, Duration: 30 day, Stop date: 02/02/17 22:56:00 CDT No Longer Active 01/04/2017 [facility] Acetaminophen Notes: Do not ex ceed 4 gm/day. (Same as: Tylenol) No Longer Active 01/04/2017 [facility] Metformin 500 mg, PO, BID, 0 R efill(s) No Longer Active 01/04/2017 [facility] Labetalol 20 mg, PO, BID, 0 Re fill(s) No Longer Active 01/04/2017 [facility] Furosemide 20 MG Oral Tablet [Lasix] 20 mg = 1 tab, PO, BID, 0 Refill(s) No Longer Active 01/04/2017 [facility] Hydralazine Notes: (Same as: A presoline) Push over 5 minutes Inactive 01/04/2017 [facility] Zofran Notes: (Same as: Zofran ) MEDICATION WASTE Product Size: 4 mg Product Wasted: ___ mg Inactive 01/04/2017 [facility] heparin Notes: porcine heparin No Longer Active 01/04/2017 [facility] Dilaudid 1 mg, Route: IVP, ONC E, Dosing Weight 110, kg, Priority: STAT, Start date: 01/03/17 20:01:00 CDT, Stop date: 01/03/17 20:01:00 CDT Inactive 01/04/2017 [facility] Acetaminophen Notes: Do not ex ceed 4 gm/day. (Same as: Tylenol) Inactive 01/03/2017 [facility] linezolid Notes: (Same as: Zyv ox) Inactive 01/03/2017 [facility] Ondansetron 4 mg, Route: IVP, Drug form: INJ, ONCE, Dosing Weight 110, kg, Priority: STAT, Start date: 01/03/17 16:29:00 CDT, Stop date: 01/03/17 16:29:00 CDT Inactive 01/03/2017 [facility] Morphine 8 mg, Route: IVP, ONC E, Dosing Weight 110, kg, Priority: STAT, Start date: 01/03/17 16:29:00 CDT, Stop date: 01/03/17 16:29:00 CDT Inactive 01/03/2017 [facility] Sodium Chloride 0.9% (Bolus) IV 1,000 mL, Infuse Over: 1 hr, Route: IV, ONCE, Priority: STAT, Dosing Weight 110 kg, Start date: 01/03/17 16:29:00 CDT, Duration: 1 doses or times, Stop date: 01/03/17 16:29:00 CDT Inactive 01/03/2017 [facility] Sodium Chloride 0.9% IV (Sodium Chloride 0.9% (Bolus) IV) 500 mL, 2,000 ml/hr, Infuse Over: 15 min utes, Route: IV, 500, Drug form: INJ, ONCE, Priority: STAT, Dosing Weight 112.273 kg, Start date: 01/03/17 16:08:00 CDT, Duration: 1 doses or times, Stop date: 01/03/17 16:08:00 CDT Inactive 01/03/2017 [facility] Saline Flush 0.9% Notes: (Same as: BD Posiflush) No Longer Active 01/03/2017 [facility] Acetaminophen 300 MG / Codeine Phosphate 30 MG Oral Tablet [Tylenol with Codeine #3] 1 tab, PO, Q6H, PRN Pain, X 3 day, # 12 tab, 0 Refill(s) Active 12/28/2016 [facility] Dilaudid Notes: Same as: Dilau did Inactive 12/28/2016 [facility] Phenergan 12.5 mg, Route: IVPB , ONCE, Dosing Weight 112.273, kg, Priority: STAT, Start date: 12/27/16 17:14:00 CDT, Stop date: 12/27/16 17:14:00 CDT Inactive 12/27/2016 [facility] Dilaudid Notes: Same as: Dilau did Inactive 12/27/2016 [facility] Saline Flush 0.9% Notes: (Same as: BD Posiflush) No Longer Active 12/27/2016 [facility] Sodium Chloride 0.9% (Bolus) IV 1,000 mL, 2,000 ml/hr, Infuse Over: 30 minutes, Route: IV, 1,000, Drug form: INJ, ONCE, Priority: STAT, Dosing Weight 103.182 kg, Start date: 12/27/16 14:37:00 CDT, Duration: 1 doses or times, Stop date: 12/27/16 14:37:00 CDT Inactive 12/27/2016 [facility] Morphine Notes: (Same as: MORP shelton Sulfate) Inactive 12/27/2016 [facility] Ondansetron Notes: (Same as: Barron cain) MEDICATION WASTE Product Size: 4 mg Product Wasted: ___ mg Inactive 12/27/2016 [facility] cefpodoxime 200 MG Oral Tablet [Vantin] 200 mg = 1 tab, PO, Q12H, X 10 day, # 20 tab, 0 Refill(s) Active 12/20/2016 [facility] Benadryl Notes: (Same as: Sandra dryl) Inactive 12/20/2016 [facility] Reglan Notes: (Same as: Reglan) Inactive 12/20/2016 [facility] Morphine Notes: (Same as:MORPh ine Sulfate) Inactive 12/20/2016 [facility] Metoclopramide 5 MG Oral Tablet [Reglan] 5 mg = 1 tab, PO, TID-Before Meals, # 30 tab, 0 Refill(s) Active 12/15/2016 [facility] Metoclopramide 10 MG Oral Tablet [Reglan] Notes: (Same as: Reglan) Take 30 min before meals No Longer Active 12/14/2016 [facility] Protonix Notes: Tablet should not be chewed or crushed. (Same as: Protonix) No Longer Active 12/14/2016 [facility] NIFEdipine 60 mg oral tablet, extended release Notes: (Same as: Adalat CC, Procardia XL) Give on empty stomach. Take 1 hour before or 2 hours after meal; "Avoid grapefruit and grapefruit juice". Do not crush No Longer Active 12/14/2016 [facility] insulin glargine Notes: (Same as: Lantus) Do not hold insulin without contacting prescriber WASTE: F/P - Black; E - Municipal Trash Bin "single patient use only" No Longer Active 12/14/2016 [facility] Insulin Glargine 10 unit, Rout e: SUB-Q, Daily, Dosing Weight 100, kg, Start date: 12/14/16 9:00:00 CDT, Duration: 30 day, Stop date: 01/12/17 9:00:00 CDT No Longer Active 12/14/2016 [facility] Hydralazine Notes: (Same as: A presoline) May interfere w/enteral feedings Take With Food. No Longer Active 12/14/2016 [facility] heparin Notes: porcine heparin No Longer Active 12/14/2016 [facility] carvedilol Notes: Give with fo od. (Same As: Coreg) No Longer Active 12/14/2016 [facility] Xanax PO, Bedtime, PRN anxiety , 0 Refill(s) Active 12/14/2016 [facility] Hydralazine Notes: (Same as: A presoline) Push over 5 minutes No Longer Active 12/14/2016 [facility] Clonidine Notes: (Same As: Cat apres) No Longer Active 12/14/2016 [facility] Ondansetron Notes: (Same as: Barron cain) MEDICATION WASTE Product Size: 4 mg Product Wasted: ___ mg No Longer Active 12/14/2016 [facility] Acetaminophen Notes: Do not ex ceed 4 gm/day. (Same as: Tylenol) No Longer Active 12/14/2016 [facility] Morphine Notes: (Same as:MORPh ine Sulfate) No Longer Active 12/14/2016 [facility] sodium chloride 0.9% 1000 ml INJ 1,000 mL 1,000 mL, Rate: 75 ml/hr, Infuse over: 13.3 hr, Route: IV, Dosing Weight 100 kg, Total Volume: 1,000, Start date: 12/13/16 19:51:00 CDT, Duration: 30 day, Stop date: 01/12/17 19:50:00 CDT No Longe r Active 12/14/2016 [facility] Saline Flush 0.9% Notes: (Same as: BD Posiflush) No Longer Active 12/14/2016 [facility] Insulin Lispro Notes: Roll in palms of hands gently; Do not shake `vigorously. (Same as: Humalog ) "Single Patient Use Only " WASTE: F/P - Black; E - Municipal Trash Bin Stable for 28 days at room temperature. Expires in days from Date No Longer Active 12/14/2016 [facility] Glucagon 1 mg, Route: IM, Drug form: PDR/INJ, PRN, Dosing Weight 100, kg, PRN Blood Glucose Results, Start date: 12/13/16 19:49:00 CDT, Duration: 30 day, Stop date: 01/12/17 19:48:00 CDT No Longer Active 12/14/2016 [facility] Dextrose 50% Syringe 25 gm, 50 mL, Route: IVP, Drug Form: INJ, Dosing Weight 100, kg, PRN, PRN Blood Glucose Results, Start date: 12/13/16 19:49:00 CDT, Duration: 30 day, Stop date: 01/12/17 19:48:00 CDT No Longer Active 12/14/2016 [facility] Phenergan 12.5 mg, Route: IVPB , ONCE, Dosing Weight 100, kg, Priority: STAT, Start date: 12/13/16 18:37:00 CDT, Stop date: 12/13/16 18:37:00 CDT Inactive 12/13/2016 [facility] Labetalol 20 mg, Route: IVP, D rug form: INJ, ONCE, Dosing Weight 100, kg, Priority: STAT, Start date: 12/13/16 18:34:00 CDT, Stop date: 12/13/16 18:34:00 CDT Inactive 12/13/2016 [facility] Dilaudid 2 mg, Route: IVP, ONC E, Dosing Weight 100, kg, Priority: STAT, Start date: 12/13/16 18:19:00 CDT, Stop date: 12/13/16 18:19:00 CDT Inactive 12/13/2016 [facility] Hydralazine 20 mg, Route: IVP, ONCE, Dosing Weight 99, kg, Priority: STAT, Start date: 12/13/16 16:56:00 CDT, Stop date: 12/13/16 16:56:00 CDT Inactive 12/13/2016 [facility] Hydromorphone 1 mg, Route: IVP , ONCE, Dosing Weight 99, kg, Priority: STAT, Start date: 12/13/16 16:56:00 CDT, Stop date: 12/13/16 16:56:00 CDT Inactive 12/13/2016 [facility] Ondansetron 4 mg, Route: IVP, ONCE, Dosing Weight 99, kg, Priority: STAT, Start date: 12/13/16 16:56:00 CDT, Stop date: 12/13/16 16:56:00 CDT Inactive 12/13/2016 [facility] Saline Flush 0.9% Notes: (Same as: BD Posiflush) No Longer Active 12/13/2016 [facility] sodium chloride 0.9% 1000 ml INJ 1,000 mL 1,000 mL, Rate: 125 ml/hr, Infuse over: 8 hr, Route: IV, Dosing Weight 99 kg, Total Volume: 1,000, Start date: 12/13/16 16:56:00 CDT, Duration: 30 day, Stop date: 01/12/17 16:55:00 CDT Inactive 12/13/2016 [facility] 800 mg oral tablet 8 00 mg = 1 tab, PO, TID- Meals, # 90 tab, 0 Refill(s) Active 12/10/2016 [facility] NIFEdipine 60 mg oral tablet, extended release 60 mg = 1 tab, PO, Daily, # 30 tab, 0 Refill(s) Active 12/10/2016 [facility] linezolid 600 mg oral tablet 6 00 mg = 1 tab, PO, Q12H, X 12 day, # 24 tab, 0 Refill(s) Active 12/10/2016 [facility] cefdinir 300 MG Oral Capsule [Omnicef] 300 mg = 1 cap, PO, Daily, X 9 day, # 9 cap, 0 Refill(s) Active 12/10/2016 [facility] remove patch Notes: Remove pat ch 12 hours after application each day. Inactive 12/10/2016 [facility] Alprazolam 0.5 MG Oral Tablet [Xanax] Notes: With food or milk (Same as: Xanax) Inactive 12/10/2016 [facility] Lidocaine 0.05 MG/MG Transdermal Patch Notes: Apply only once for up to 12 hours in a 24-hour period (12 hours on and 12 hours off). (Same as: Lidoderm) "Remove old patch before application of new patch" No Longer Active 12/09/2016 [facility] linezolid 600 mg oral tablet 6 00 mg = 1 tab, PO, Q12H, X 12 day, # 24 tab, 0 Refill(s) Inactive 12/09/2016 [facility] cefdinir 300 MG Oral Capsule [Omnicef] 300 mg = 1 cap, PO, Q12H, X 9 day, # 18 cap, 0 Refill(s) Inactive 12/09/2016 [facility] linezolid 600 mg oral tablet 6 00 mg = 1 tab, PO, Q12H, X 13 day, # 26 tab, 0 Refill(s) Inactive 12/09/2016 [facility] cefdinir 300 MG Oral Capsule [Omnicef] 300 mg = 1 cap, PO, Q12H, X 11 day, # 22 cap, 0 Refill(s) Inactive 12/09/2016 [facility] Acetaminophen 300 MG / Codeine Phosphate 30 MG Oral Tablet [Tylenol with Codeine #3] Notes: Do not exceed 4gm/day of acetamin ophen. (Same as: Tylenol with Codeine # 3) No Longer Active 12/09/2016 [facility] Acetaminophen 325 MG / Hydrocodone Jeanie trate 10 MG Oral Tablet [[place] 10/325] Notes: Do not exceed 4gm/day of acetamin ophen. (Same as: [place] 325/10) Inactive 12/09/2016 [facility] Bentyl Notes: (Same as: Bentyl) No Longer Active 12/08/2016 [facility] Ceftriaxone Notes: (Same As: Musa mahoney). Use with 100 mL NS and infuse over 30 min MEDICATION WASTE Product Size: 1000 mg Product Wasted: _0__ mg No Longer Active 12/08/2016 [facility] linezolid Notes: Protect from light. (Same as: Zyvox) No Longer Active 12/08/2016 [facility] sevelamer Notes: Same as: Renv saritha No Longer Active 12/08/2016 [facility] Phenergan Notes: (Same as: Phe nergan) No Longer Active 12/08/2016 [facility] meropenem Notes: Same as Dionisio horton MEDICATION WASTE Product Size: 500 mg Product Wasted: ___ mg No Longer Active 12/07/2016 [facility] Macrobid 100 mg, Route: PO, Dr ug form: CAP, [id number], Dosing Weight 99, kg, Start date: 12/07/16 16:00:00 CDT, Duration: 30 day, Stop date: 01/06/17 4:00:00 CDT Inactive 12/07/2016 [facility] Vancomycin 2001 mg: infuse ov er 2.5 hours Inactive 12/07/2016 [facility] Nifedical XL Notes: (Same as: Adalat CC, Procardia XL) Give on empty stomach. Take 1 hour before or 2 hours after meal; "Avoid grapefruit and grapefruit juice". Do not crush No Longer Active 12/07/2016 [facility] Hydralazine Notes: (Same as: A presoline) Push over 5 minutes No Longer Active 12/06/2016 [facility] carvedilol Notes: Give with fo od. (Same As: Coreg) No Longer Active 12/06/2016 [facility] Electrolyte Solution 1000 mL 1 ,000 mL, Rate: 100 ml/hr, Infuse over: 10 hr, Route: IV, Dosing Weight 114.5 kg, Total Volume: 1,000, Start date: 12/06/16 9:54:00 CDT, Duration: 30 day, Stop date: 01/05/17 9:53:00 CDT Inactive 12/06/2016 [facility] Levemir Notes: Same as Levemir Do not hold insulin without contacting prescriber WASTE: F/P - Black; E - Municipal Trash Bin "single patient use only" Inactive 12/06/2016 [facility] Sodium Chloride 0.45% IV 1000 mL 1,000 mL, Rate: 40 ml/hr, Infuse over: 25 hr, Route: IV, Dosing Weight 114.5 kg, Total Volume: 1,000, Start date: 12/06/16 5:19:00 CDT, Duration: 30 day, Stop date: 01/05/17 5:18:00 CDT Inactive 12/06/2016 [facility] heparin Notes: porcine heparin No Longer Active 12/06/2016 [facility] Glucagon 1 mg, Route: IM, Drug form: PDR/INJ, PRN, Dosing Weight 114.5, kg, PRN Blood Glucose Results, Start date: 12/05/16 23:53:00 CDT, Duration: 30 day, Stop date: 01/04/17 23:52:00 CDT No Longer Active 12/06/2016 [facility] Dextrose 50% Syringe 25 gm, 50 mL, Route: IVP, Drug Form: INJ, Dosing Weight 114.5, kg, PRN, PRN Blood Glucose Results, Start date: 12/05/16 23:53:00 CDT, Duration: 30 day, Stop date: 01/04/17 23:52:00 CDT No Longer Active 12/06/2016 [facility] Insulin, Aspart, Human Notes: Roll in palms of hands gently; Do not shake vigorously. (Same as: NovoLOG) "single patient use only" WASTE: F/P - Black; E - Municipal Trash Bin Stable for 28 days at room temperature. Expires in days from Date No Longer Active 12/06/2016 [facility] Dilaudid Notes: Same as: Rafaelau did No Longer Active 12/06/2016 [facility] Nicardipine 20 mg, 200 mL, Rat e: Titrate, Start Dose: 5 mg/hr, Titration: 2.5 mg/hr every 15 minutes, Goal(s): SBP <185, Max Dose: 15 mg/hr, Route: IV, Dosing Weight 114.545 kg, Total Volume: 200, Start date: 21:19:00 CDT, Duration: 30 day, Stop date: .. Inactive 12/06/2016 [facility] Labetalol 40 mg, Route: IVP, D rug form: INJ, ONCE, Dosing Weight 114.545, kg, Priority: STAT, Start date: 12/05/16 20:27:00 CDT, Stop date: 12/05/16 20:27:00 CDT Inactive 12/06/2016 [facility] Dilaudid 1 mg, Route: IVP, ONC E, Dosing Weight 114.545, kg, Priority: STAT, Start date: 12/05/16 20:10:00 CDT, Stop date: 12/05/16 20:10:00 CDT Inactive 12/06/2016 [facility] Sodium Chloride 0.9% IV 500 mL 500 mL, Rate: 500 ml/hr, Infuse over: 1 hr, Route: IV, Dosing Weight 114.545 kg, Total Volume: 500, Priority: STAT, Start date: 12/05/16 19:26:00 CDT, Duration: 1 doses or times, Stop date: 12/05/16 20:25:00 CDT Inactive 12/06/2016 [facility] Hydralazine Hydrochloride 25 MG Oral Tablet 25 mg, Route: PO, Drug form: TAB, ONCE, Dosing Weight 114.545, kg, Start date: 12/05/16 18:46:00 CDT, Stop date: 12/05/16 18:46:00 CDT Inactive 12/05/2016 [facility] Hydralazine 10 mg, Route: IVP, ONCE, Dosing Weight 114.545, kg, Priority: STAT, Start date: 12/05/16 18:45:00 CDT, Stop date: 12/05/16 18:45:00 CDT Inactive 12/05/2016 [facility] Sodium Chloride 0.9% IV 500 mL 500 mL, Rate: 500 ml/hr, Infuse over: 1 hr, Route: IV, Dosing Weight 114.545 kg, Total Volume: 500, Priority: STAT, Start date: 12/05/16 18:45:00 CDT, Duration: 1 doses or times, Stop date: 12/05/16 19:44:00 CDT Inactive 12/05/2016 [facility] carvedilol Notes: Give with fo od. (Same As: Coreg) Inactive 12/05/2016 [facility] Hydralazine 20 mg, Route: IVP, ONCE, Dosing Weight 114.545, kg, Priority: STAT, Start date: 12/05/16 17:42:00 CDT, Stop date: 12/05/16 17:42:00 CDT Inactive 12/05/2016 [facility] carvedilol extended release 20 mg, Route: PO, Drug form: ERCAP, ONCE, Dosing Weight 114.545, kg, Priority: STAT, Start date: 12/05/16 17:40:00 CDT, Stop date: 12/05/16 17:40:00 CDT Inactive 12/05/2016 [facility] Labetalol 20 mg, Route: IVP, D rug form: INJ, ONCE, Dosing Weight 114.545, kg, Priority: STAT, Start date: 12/05/16 16:58:00 CDT, Stop date: 12/05/16 16:58:00 CDT Inactive 12/05/2016 [facility] Labetalol 10 mg, Route: IVP, D rug form: INJ, ONCE, Dosing Weight 114.545, kg, Priority: STAT, Start date: 12/05/16 16:27:00 CDT, Stop date: 12/05/16 16:27:00 CDT Inactive 12/05/2016 [facility] Phenergan Notes: Do not give I V push. (Same as: Phenergan) Inactive 12/05/2016 [facility] Protonix Notes: For IV push re constitute with 10 ml 0.9% sodium chloride and push over 2 minutes. (Same as: Protonix) Inactive 12/05/2016 [facility] sodium chloride 0.9% 1000 ml INJ 1,000 mL 1,000 mL, Rate: 1,000 ml/hr, Infuse over: 1 hr, Route: IV, Dosing Weight 114.545 kg, Total Volume: 1,000, Priority: STAT, Start date: 12/05/16 15:36:00 CDT, Duration: 1 doses or times, Stop date: 12/05/16 16:35:00 CDT Inactive 12/05/2016 [facility] Dilaudid Notes: Same as: Dilau did Inactive 12/05/2016 [facility] fluconazole 200 mg oral tablet 200 mg = 1 tab, PO, [id number], X 4 day, # 4 tab, 0 Refill(s), Pharmacy: [facility] [id number] Active 10/26/2016 [facility] Hydralazine Hydrochloride 25 MG Oral Tablet 25 mg = 1 tab, PO, TID, # 90 tab, 0 Refill(s), Pharmacy: [facility] [id number] Active 10/26/2016 [facility] fluconazole 200 mg oral tablet 200 mg = 1 tab, PO, [id number], X 10 day, # 10 tab, 0 Refill(s), Pharmacy: [facility] [id number] Inactive 10/26/2016 [facility] Ergocalciferol 52313 UNT Oral Capsule 50,000 IntlUnit = 1 cap, PO, Q7D, # 4 caplet, 0 Refill(s), Pharmacy: [facility] [id number] Active 10/26/2016 [facility] Naloxone Notes: Same as Narcan No Longer Active 10/25/2016 [facility] Dilaudid 1 mg, 1 mL, Route: IV P, Drug form: INJ, Q4H, Dosing Weight 107.727, kg, PRN Pain Score 7-10, Start date: 10/25/16 10:57:00 CDT, Duration: 30 day, Stop date: 11/24/16 10:56:00 CDT No Longer Active 10/25/2016 [facility] Hydralazine Hydrochloride 25 MG Oral Tablet Notes: (Same as: Apresoline) May interfere w/enteral feedings Take With Food. No Longer Active 10/25/2016 [facility] Fluconazole Notes: (Same as: D iflucan) No Longer Active 10/24/2016 [facility] Dilaudid 1 mg, 1 mL, Route: IV P, Drug form: INJ, Q6H, Dosing Weight 107.727, kg, PRN Pain Score 7-10, Start date: 10/24/16 13:42:00 CDT, Duration: 30 day, Stop date: 11/23/16 13:41:00 CDT No Longer Active 10/24/2016 [facility] Sertraline Notes: (Same as: Zo loft) No Longer Active 10/24/2016 [facility] Levemir Notes: Same as Levemir Do not hold insulin without contacting prescriber WASTE: F/P - Black; E - Municipal Trash Bin "single patient use only" No Longer Active 10/24/2016 [facility] Magnesium Sulfate Notes: (Same as: MgSO4) WASTE: F/P - Sink; E - Municipal Trash Bin MEDICATION WASTE Product Size: 1000 mg Product Wasted: ___ mg Inactive 10/24/2016 [facility] Merrem Notes: Same as Merrem MEDICATION WASTE Product Size: 500 mg Product Wasted: ___ mg No Longer Active 10/24/2016 [facility] carvedilol Notes: Give with fo od. (Same As: Coreg) No Longer Active 10/24/2016 [facility] atorvastatin Notes: (Same as: Lipitor) No Longer Active 10/24/2016 [facility] Insulin, Aspart, Human Notes: Roll in palms of hands gently; Do not shake vigorously. (Same as: NovoLOG) "single patient use only" WASTE: F/P - Black; E - Municipal Trash Bin Stable for 28 days at room temperature. Expires in days from Date No Longer Active 10/23/2016 [facility] Glucagon 1 mg, Route: IM, Drug form: PDR/INJ, PRN, Dosing Weight 111.364, kg, PRN Blood Glucose Results, Start date: 10/23/16 16:10:00 CDT, Duration: 30 day, Stop date: 11/22/16 16:09:00 CDT No Longer Active 10/23/2016 [facility] Dextrose 50% Syringe 25 gm, 50 mL, Route: IVP, Drug Form: INJ, Dosing Weight 111.364, kg, PRN, PRN Blood Glucose Results, Start date: 10/23/16 16:10:00 CDT, Duration: 30 day, Stop date: 11/22/16 16:09:00 CDT No Longer Active 10/23/2016 [facility] Ergocalciferol 98809 UNT Oral Capsule Notes: (Same as: Vitamin D) "Do Not Crush" No Longer Active 10/23/2016 [facility] Lovenox Notes: (Same as: Loven ox) No Longer Active 10/23/2016 [facility] pantoprazole Notes: Tablet hubert uld not be chewed or crushed. (Same as: Protonix) N o Longer Active 10/23/2016 [facility] Hydralazine Notes: (Same as: A presoline) Push over 5 minutes No Longer Active 10/23/2016 [facility] Acetaminophen 300 MG / Codeine Phosphate 30 MG Oral Tablet [Tylenol with Codeine #3] Notes: Do not exceed 4gm/day of acetamin ophen. (Same as: Tylenol with Codeine # 3) No Longer Active 10/23/2016 [facility] Docusate Sodium 100 MG Oral Capsule Notes: (Same as: Colace) (Do Not Crush) No Longer Active 10/23/2016 [facility] Acetaminophen 300 MG / Codeine Phosphate 30 MG Oral Tablet [Tylenol with Codeine #3] 1 tab, PO, Q6H, PRN Pain Score 1-5, 0 Re fill(s) Active 10/23/2016 [facility] insulin detemir 100 UNT/ML Injectable So lution [Levemir] 15 unit, SUB-Q, Daily, # 10 ml, 0 Refill(s) Active 10/23/2016 [facility] atorvastatin 40 mg oral tablet 40 mg = 1 tab, PO, Bedtime, 0 Refill(s) Active 10/23/2016 [facility] lisinopril 20 mg oral tablet 2 0 mg = 1 tab, PO, Daily, # 30 tab, 0 Refill(s) No Longer Active 10/23/2016 [facility] pantoprazole 40 mg oral granule = 1 Pack, PO, Daily, # 30 ea, 0 Refill(s) Active 10/23/2016 [facility] carvedilol 25 mg oral tablet 2 5 mg = 1 tab, PO, Q12H, # 60 tab, 0 Refill(s) Active 10/23/2016 [facility] sertraline 100 mg oral tablet 100 mg = 1 tab, PO, Daily, # 30 tab, 0 Refill(s) Active 10/23/2016 [facility] Furosemide 40 MG Oral Tablet 4 0 mg = 1 tab, PO, BID, # 30 tab, 0 Refill(s) Active 10/23/2016 [facility] Hydralazine 10 mg, Route: IVP, Q3H, Dosing Weight 107.727, kg, Start date: 10/23/16 8:00:00 CDT, Duration: 30 day, Stop date: 11/22/16 5:00:00 CDT Inactive 10/23/2016 [facility] meropenem Notes: Same as Dionisio horton MEDICATION WASTE Product Size: 500 mg Product Wasted: ___ mg No Longer Active 10/23/2016 [facility] Ceftriaxone 1 gm, Route: IVPB, [id number], Dosing Weight 107.727, kg, Start date: 10/23/16 6:00:00 CDT, Duration: 10 day, Stop date: 11/01/16 6:00:00 CDT, ABX Indication: Urinary Tract Infection Inactive 10/23/2016 [facility] Acetaminophen 325 MG / Hydrocodone Jeanie trate 10 MG Oral Tablet [[place] 10/325] Notes: Do not exceed 4gm/day of acetamin ophen. (Same as: [place] 325/10) No Longer Active 10/23/2016 [facility] Dilaudid 0.5 mg, 0.5 mL, Route : IVP, Drug form: INJ, Q3H, Dosing Weight 107.727, kg, PRN Pain Score 7-10, Start date: 10/23/16 5:57:00 CDT, Duration: 30 day, Stop date: 11/22/16 5:56:00 CDT No Longer Active 10/23/2016 [facility] sodium chloride 0.45% 1000 ml INJ 1,000 mL 1,000 mL, Rate: 40 ml/hr, Infuse over: 25 hr, Route: IV, Dosing Weight 107.727 kg, Total Volume: 1,000, Start date: 10/23/16 5:56:00 CDT, Duration: 30 day, Stop date: 11/22/16 5:55:00 CDT No Longer Active 10/23/2016 [facility] Zofran Notes: (Same as: Luis ) MEDICATION WASTE Product Size: 4 mg Product Wasted: ___ mg Inactive 10/23/2016 [facility] Hydralazine Notes: (Same as: A presoline) Push over 5 minutes Inactive 10/23/2016 [facility] Dilaudid 1 mg, 1 mL, Route: IV P, Drug form: INJ, ONCE, Dosing Weight 107.727, kg, Priority: STAT, Start date: 10/23/16 5:10:00 CDT, Stop date: 10/23/16 5:10:00 CDT Inactive 10/23/2016 [facility] Clonidine Hydrochloride 0.2 MG Oral Tablet 0.2 mg, Route: SL, Drug form: TAB, ONCE, Dosing Weight 107.727, kg, Priority: STAT, Start date: 10/23/16 4:08:00 CDT, Stop date: 10/23/16 4:08:00 CDT Inactive 10/23/2016 [facility] Morphine Notes: (Same as:MORPh ine Sulfate) Inactive 10/23/2016 [facility] Rocephin Notes: (Same As: Roce phin). Use with 100 mL NS and infuse over 30 min MEDICATION WASTE Product Size: 2000 mg Product Wasted: ___ mg Inactive 10/23/2016 [facility] Saline Flush 0.9% Notes: (Same as: BD Posiflush) No Longer Active 10/23/2016 [facility] Ondansetron Notes: (Same as: Barron cain) MEDICATION WASTE Product Size: 4 mg Product Wasted: ___ mg Inactive 10/23/2016 [facility] Morphine Notes: (Same as:MORPh ine Sulfate) Inactive 10/23/2016 [facility] Sodium Chloride 0.154 MEQ/ML Injectable Solution 1,000 mL, 2,000 ml/hr, Infuse Over: 30 minutes, Route: IV, 1,000, Drug form: INJ, ONCE, Priority: STAT, Dosing Weight 107.727 kg, Start date: 10/23/16 0:34:00 CDT, Duration: 1 doses or times, Stop date: 10/23/16 0:34:00 CDT Inactive 10/23/2016 [facility] Furosemide Notes: (Same as: La six) May cause GI upset. Give with food or milk. No Longer Active 10/20/2016 [facility] Furosemide 40 MG Oral Tablet N otes: (Same as: Lasix) May cause GI upset. Give with food or milk. No Longer Active 10/20/2016 [facility] 24 HR Nifedipine 30 MG Extended Release Tablet Notes: (Same as: Adalat CC, Procardia XL) Give on empty stomach. Take 1 hour before or 2 hours after meal; "Avoid grapefruit and grapefruit juice". Do not crush Inactive 10/19/2016 [facility] Furosemide 40 MG Oral Tablet 4 0 mg, PO, BID Diuretic, # 60 tab, 0 Refill(s) Active 10/19/2016 [facility] atorvastatin 40 mg oral tablet 40 mg = 1 tab, PO, Bedtime, # 30 tab, 0 Refill(s) Active 10/19/2016 [facility] Acetaminophen 325 MG / Hydrocodone Jeanie trate 10 MG Oral Tablet [[place] 10/325] 1 tab, PO, TID, PRN Pain Score 7-10, # 2 0 tab, 0 Refill(s) Active 10/19/2016 [facility] sertraline 100 mg oral tablet 100 mg = 1 tab, PO, Daily, # 30 tab, 0 Refill(s) Active 10/19/2016 [facility] carvedilol 25 mg oral tablet 2 5 mg = 1 tab, PO, Q12H, # 60 tab, 0 Refill(s) Active 10/19/2016 [facility] pantoprazole 40 mg oral enteric coated tablet 40 mg = 1 tab, PO, Q24H, # 30 tab, 0 Refill(s) Active 10/19/2016 [facility] lisinopril 20 mg oral tablet 4 0 mg = 2 tab, PO, Daily, # 60 tab, 0 Refill(s) Active 10/19/2016 [facility] Zofran Notes: (Same as: Zofran) Inactive 10/19/2016 [facility] Zofran Notes: (Same as: Zofran) Inactive 10/19/2016 [facility] Cholecalciferol 2000 UNT Oral Tablet 2,000 IntlUnit, 1 tab, Route: PO, Daily, Dosing Weight 109, kg, Start date: 10/19/16 9:00:00 CDT, Duration: 30 day, Stop date: 11/17/16 9:00:00 CDT No Longer Active 10/19/2016 [facility] Lisinopril Notes: (Same as: Pr inivil, Zestril) Inactive 10/19/2016 [facility] 24 HR Nifedipine 30 MG Extended Release Tablet 30 mg, Route: PO, Drug form: ERTAB, Q24H, Dosing Weight 109, kg, Start date: 10/18/16 13:00:00 CDT, Duration: 30 day, Stop date: 11/16/16 13:00:00 CDT Inactive 10/18/2016 [facility] Vitamin D2 Notes: (Same as: Shanna Estevez) "Do Not Crush" Inactive 10/18/2016 [facility] Vitamin D2 50,000 IntlUnit, Ro ramona: PO, Drug form: CAP, 2x/Wk, Dosing Weight 109, kg, Start date: 10/18/16 12:33:00 CDT, Duration: 30 day, Stop date: 11/17/16 12:32:00 CDT Inactive 10/18/2016 [facility] Miralax Notes: Dissolve in 8 o z of water or juice. (Same as: Miralax) No Longer Active 10/18/2016 [facility] Lisinopril Notes: (Same as: Pr inivil, Zestril) Inactive 10/18/2016 [facility] Morphine Notes: (Same as:MORPh ine Sulfate) Inactive 10/18/2016 [facility] Furosemide Notes: (Same as: Barb walker) MEDICATION WASTE Product Size: 40 mg Product Wasted: ___ mg No Longer Active 10/17/2016 [facility] 24 HR Nifedipine 30 MG Extended Release Tablet Notes: (Same as: Adalat CC, Procardia XL) Give on empty stomach. Take 1 hour before or 2 hours after meal; "Avoid grapefruit and grapefruit juice". Do not crush No Longer Active 10/17/2016 [facility] Amlodipine Notes: (Same as: No rvasc) Inactive 10/17/2016 [facility] Bicitra oral solution Notes: ( Same As: Bicitra, Cytra-2) Sodium citrate-citric acid (500-334 mg/5 mL): 1 mL contains sodium 1 mEq/mL and bicarbonate 1 mEq/mL No Longer Active 10/17/2016 [facility] RenaGel Notes: Same as: Renvela No Longer Active 10/17/2016 [facility] MS Contin Notes: Do not crush (Same as:Oramorph SR, MS Contin) No Longer Active 10/17/2016 [facility] lisinopril Notes: (Same as: Pr inivil, Zestril) Inactive 10/17/2016 [facility] morphine extended release Note s: Do not crush (Same as:Oramorph SR, MS Contin) Inactive 10/17/2016 [facility] Lisinopril Notes: (Same as: Pr inivil, Zestril) Inactive 10/17/2016 [facility] Lisinopril Notes: (Same as: Pr inivil, Zestril) No Longer Active 10/16/2016 [facility] Calcium Carbonate 1250 MG Oral Tablet Notes: (Same As: Tums) Calcium Carbonate 500 mg = 200 mg elemental calcium Dose = mg calcium carbonate ( mg elemental calcium) Inactive 10/16/2016 [facility] atorvastatin Notes: (Same as: Lipitor) No Longer Active 10/16/2016 [facility] Miralax Notes: Dissolve in 8 o z of water or juice. (Same as: Miralax) No Longer Active 10/15/2016 [facility] Lisinopril Notes: (Same as: Pr inivil, Zestril) No Longer Active 10/15/2016 [facility] Morphine Notes: (Same as:MORPh ine Sulfate) No Longer Active 10/15/2016 [facility] Protonix Notes: Tablet should not be chewed or crushed. (Same as: Protonix) No Longer Active 10/15/2016 [facility] magnesium sulfate Notes: WASTE : F/P - Sink; E - Municipal Trash Bin Inactive 10/15/2016 [facility] Dexilant 60 mg, Route: PO, Angy ly, Dosing Weight 109, kg, Start date: 10/15/16 9:56:00 CDT, Duration: 30 day, Stop date: 11/14/16 9:00:00 CDT Inactive 10/15/2016 [facility] Miralax Notes: Dissolve in 8 o z of water or juice. (Same as: Miralax) Inactive 10/15/2016 [facility] Sertraline Notes: (Same as: Zo loft) No Longer Active 10/15/2016 [facility] Magnesium Sulfate 4 gm, Route: IVPB, Drug form: INJ, ONCE, Dosing Weight 109, kg, Total dose = 4 gm, Start date: 10/15/16 8:53:00 CDT, Duration: 1 doses or times, Stop date: 10/15/16 8:53:00 CDT Inactive 10/15/2016 [facility] Calcium Gluconate Notes: WASTE : F/P - Sink; E - Municipal Trash Bin Inactive 10/15/2016 [facility] Simethicone Notes: (Same as: M ylicon) No Longer Active 10/15/2016 [facility] Morphine Notes: (Same as:MORPh ine Sulfate) Inactive 10/15/2016 [facility] Dilaudid 1 mg, Route: IVP, ONC E, Dosing Weight 109, kg, Priority: STAT, Start date: 10/14/16 21:40:00 CDT, Stop date: 10/14/16 21:40:00 CDT Inactive 10/15/2016 [facility] carvedilol Notes: Give with fo od. (Same As: Coreg) No Longer Active 10/15/2016 [facility] Furosemide 20 MG Oral Tablet [Lasix] Notes: (Same as: Lasix) May cause GI upset. Give with food or milk. No Longer Active 2016 [facility] Lovenox Notes: (Same as: Loven ox) No Longer Active 2016 [facility] Insulin regular 60 units) W ASTE: F/P - Black; E - Municipal Trash Bin Stable for 28 days at room temperature Expires in days from Date N o Longer Active 2016 [facility] Dextrose 50% Syringe 25 gm, 50 mL, Route: IVP, Drug Form: INJ, Dosing Weight 109, kg, PRN, PRN Blood Glucose Results, Start date: 10/14/16 15:08:00 CDT, Duration: 30 day, Stop date: 11/13/16 15:07:00 CDT No Longer Active 2016 [facility] Glucagon 1 mg, Route: IM, Drug form: PDR/INJ, PRN, Dosing Weight 109, kg, PRN Blood Glucose Results, Start date: 10/14/16 15:08:00 CDT, Duration: 30 day, Stop date: 11/13/16 15:07:00 CDT No Longer Active 2016 [facility] Acetaminophen 325 MG / Hydrocodone Jeanie trate 10 MG Oral Tablet [[place] 10/325] Notes: Do not exceed 4gm/day of acetamin ophen. (Same as: [place] 325/10) No Longer Active 2016 [facility] carvedilol 25 mg oral tablet 2 5 mg = 1 tab, PO, BID, # 180 tab, 0 Refill(s) No Longer Active 2016 [facility] insulin detemir 100 UNT/ML Injectable So lution [Levemir] 30 unit, SUB-Q, Daily, 0 Refill(s) No Longer Active 2016 [facility] Furosemide 20 MG Oral Tablet [Lasix] 20 mg = 1 tab, PO, Bedtime, # 30 tab, 0 Refill(s) No Longer Active 2016 [facility] Enoxaparin 30 mg, Route: SUB-Q , Drug form: INJ, [id number], Dosing Weight 109, kg, Start date: 10/14/16 12:00:00 CDT, Duration: 30 day, Stop date: 11/12/16 12:00:00 CDT Inactive 2016 [facility] Acetaminophen Notes: Do not ex ceed 4 gm/day. (Same as: Tylenol) No Longer Active 2016 [facility] Flagyl Notes: (Same as: Flagyl ) Take with food/ avoid alcohol Inactive 2016 [facility] Clonidine Hydrochloride 0.1 MG Oral Tablet Notes: (Same As: Catapres) Inactive 2016 [facility] Diflucan Notes: (Same as: Difl ucan) Inactive 2016 [facility] Zofran Notes: (Same as: Zoisha ) MEDICATION WASTE Product Size: 4 mg Product Wasted: ___ mg Inactive 2016 [facility] Morphine Notes: (Same as:MORPh ine Sulfate) Inactive 2016 [facility] D5W 1/2NS 1,000 mL 1,000 mL, R ate: 125 ml/hr, Infuse over: 8 hr, Route: IV, Dosing Weight 109 kg, Total Volume: 1,000, Start date: 10/14/16 6:53:00 CDT, Duration: 30 day, Stop date: 11/13/16 6:52:00 CDT No Longer Active 2016 [facility] Dilaudid Notes: Same as: Dilau did Inactive 2016 [facility] Reglan Notes: (Same as: Reglan) Inactive 2016 [facility] 24 HR Nifedipine 90 MG Extended Release Tablet Notes: (Same as: Adalat CC, Procardia XL) Give on empty stomach. Take 1 hour before or 2 hours after meal; "Avoid grapefruit and grapefruit juice". Do not crush Inactive 2016 [facility] Coreg Notes: Give with food. ( Same As: Coreg) Inactive 2016 [facility] Zofran Notes: (Same as: Zofran ) MEDICATION WASTE Product Size: 4 mg Product Wasted: ___ mg Inactive 2016 [facility] Morphine Notes: (Same as:MORPh ine Sulfate) Inactive 2016 [facility] Acetaminophen 300 MG / Codeine Phosphate 30 MG Oral Tablet [Tylenol with Codeine #3] Notes: Do not exceed 4gm/day of acetamin ophen. (Same as: Tylenol with Codeine # 3) Inactive 10/12/2016 [facility] Sertraline Notes: (Same as: Zo loft) Inactive 10/12/2016 [facility] 24 HR Nifedipine 90 MG Extended Release Tablet Notes: (Same as: Adalat CC,Procardia XL) "Do Not Crush" "Avoid grapefruit and grapefruit juice" Inactive 10/12/2016 [facility] Morphine Notes: (Same as:MORPh ine Sulfate) Inactive 10/12/2016 [facility] heparin sodium, porcine 2500 UNT/ML Injectable Solutio n Notes: porcine heparin Inactiv e 10/12/2016 [facility] carvedilol Notes: Give with fo od. (Same As: Coreg) No Longer Active 10/12/2016 [facility] Furosemide 20 MG Oral Tablet [Lasix] Notes: (Same as: Lasix) May cause GI upset. Give with food or milk. No Longer Active 10/11/2016 [facility] Morphine Notes: (Same as:MORPh ine Sulfate) Inactive 10/11/2016 [facility] sodium chloride 0.9% 1000 ml INJ 3,000 mL 3,000 mL, Rate: 75 ml/hr, Infuse over: 40 hr, Route: IV, Dosing Weight 109.545 kg, Total Volume: 3,000, Start date: 10/11/16 14:49:00 CDT, Duration: 30 day, Stop date: 11/10/16 14:48:00 CDT No Longe r Active 10/11/2016 [facility] Insulin regular 60 units) W ASTE: F/P - Black; E - Municipal Trash Bin Stable for 28 days at room temperature Expires in days from Date N o Longer Active 10/11/2016 [facility] tramadol hydrochloride 50 MG Oral Tablet Notes: Not to exceed 400mg/day. (Same As: Ultram) No Longer Active 10/11/2016 [facility] Dextrose 50% Syringe 25 gm, 50 mL, Route: IVP, Drug Form: INJ, Dosing Weight 109.545, kg, PRN, PRN Blood Glucose Results, Start date: 10/11/16 9:37:00 CDT, Duration: 30 day, Stop date: 11/10/16 9:36:00 CDT No Longer Active 10/11/2016 [facility] Glucagon 1 mg, Route: IM, Drug form: PDR/INJ, PRN, Dosing Weight 109.545, kg, PRN Blood Glucose Results, Start date: 10/11/16 9:37:00 CDT, Duration: 30 day, Stop date: 11/10/16 9:36:00 CDT No Longer Active 10/11/2016 [facility] Levemir 15 unit, SUB-Q, BID, 0 Refill(s) No Longer Active 10/11/2016 [facility] Saline Flush 0.9% Notes: (Same as: BD Posiflush) No Longer Active 10/11/2016 [facility] sodium chloride 0.9% 1000 ml INJ 1,000 mL 1,000 mL, Rate: 75 ml/hr, Infuse over: 13.3 hr, Route: IV, Dosing Weight 109.545 kg, Total Volume: 1,000, Start date: 10/11/16 7:34:00 CDT, Duration: 30 day, Stop date: 11/10/16 7:33:00 CDT Inactive 10/11/2016 [facility] Coreg Notes: Give with food. ( Same As: Coreg) Inactive 10/11/2016 [facility] Nitroglycerin 0.02 MG/MG Topical Ointment 1 inch, Route: TOP, Drug Form: OINT, Dosing Weight 109.545, kg, ONCE, STAT, Start date: 10/11/16 4:58:00 CDT, Stop date: 10/11/16 4:58:00 CDT Inactive 10/11/2016 [facility] Clonidine Hydrochloride 0.2 MG Oral Tablet Notes: (Same As: Catapres) Inactive 10/11/2016 [facility] Labetalol 10 mg, 2 mL, Route: IVP, Drug form: INJ, ONCE, Dosing Weight 109.545, kg, Start date: 10/11/16 4:06:00 CDT, Stop date: 10/11/16 4:06:00 CDT Inactive 10/11/2016 [facility] 24 HR Nifedipine 90 MG Extended Release Tablet Notes: (Same as: Adalat CC,Procardia XL) "Do Not Crush" "Avoid grapefruit and grapefruit juice" Inactive 10/11/2016 [facility] Coreg Notes: Give with food. ( Same As: Coreg) Inactive 10/11/2016 [facility] niCARdipine 40 mg 40 mg, 200 m L, Rate: Titrate, Start Dose: 5 mg/hr, Titration: 2.5 mg/hr every 15 minutes, Goal(s): systolic <200, Max Dose: 15 mg/hr, Route: IV, Dosing Weight 109.545 kg, Total Volume: 200, Start date: 10/11/16 2:05:00 CDT, Duration: 30 day, Stop date... Inactive 10/11/2016 [facility] Hydromorphone Notes: Same as: Dilaudid Inactive 10/11/2016 [facility] Labetalol 10 mg, Route: IVP, D rug form: INJ, ONCE, Dosing Weight 109.545, kg, Start date: 10/11/16 1:57:00 CDT, Stop date: 10/11/16 1:57:00 CDT Inactive 10/11/2016 [facility] Reglan Notes: (Same as: Reglan) Inactive 10/11/2016 [facility] Haldol 5 mg, Route: IV, ONCE, Dosing Weight 109.545, kg, Start date: 10/11/16 0:58:00 CDT, Stop date: 10/11/16 0:58:00 CDT Inactive 10/11/2016 [facility] Haldol 5 mg, Route: IM, ONCE, Dosing Weight 109.545, kg, Priority: STAT, Start date: 10/11/16 0:57:00 CDT, Stop date: 10/11/16 0:57:00 CDT Inactive 10/11/2016 [facility] Morphine Notes: (Same as:MORPh ine Sulfate) Inactive 10/11/2016 [facility] Haldol Notes: (Same as: Haldol) Inactive 10/11/2016 [facility] Ondansetron Notes: (Same as: Barron cain) MEDICATION WASTE Product Size: 4 mg Product Wasted: 0 mg No Longer Active 10/11/2016 [facility] Sodium Chloride 0.154 MEQ/ML Injectable Solution 1,000 mL, 1000 ml/hr, Infuse Over: 1 hr, Route: IV, 1,000, Drug form: INJ, ONCE, Priority: STAT, Dosing Weight 109.545 kg, Start date: 10/10/16 23:36:00 CDT, Duration: 1 doses or times, Stop date: 10/10/16 23:36:00 CDT No Longer Active 10/11/2016 [facility] Morphine Notes: (Same as:MORPh ine Sulfate) No Longer Active 10/11/2016 [facility] Furosemide 20 MG Oral Tablet [Lasix] 20 mg = 1 tab, PO, BID, # 60 tab, 0 Refill(s) Active 10/07/2016 [facility] famotidine Notes: (Same as: Pe pcid) Inactive 10/07/2016 [facility] sertraline 100 mg oral tablet 100 mg = 1 tab, PO, Daily, # 30 tab, 0 Refill(s) Active 10/07/2016 [facility] Furosemide 20 MG Oral Tablet [Lasix] 20 mg = 1 tab, PO, BID, 0 Refill(s) Inactive 10/07/2016 [facility] Acetaminophen 300 MG / Codeine Phosphate 30 MG Oral Tablet [Tylenol with Codeine #3] 1 tab, PO, Q6H, PRN Pain, X 7 day, # 28 tab, 0 Refill(s) Active 10/07/2016 [facility] Famotidine 20 mg, Route: PO, D rug form: TAB, Daily, Dosing Weight 109.545, kg, Priority: NOW, Start date: 10/07/16 14:05:00 CDT, Duration: 30 day, Stop date: 11/06/16 9:00:00 CDT Inactive 10/07/2016 [facility] Acetaminophen 325 MG / Hydrocodone Jeanie trate 10 MG Oral Tablet [[place] 10/325] Notes: Do not exceed 4gm/day of acetamin ophen. (Same as: [place] 325/10) Inactive 10/07/2016 [facility] Seroquel Notes: (Same as: SERO quel) No Longer Active 10/06/2016 [facility] 24 HR Nifedipine 90 MG Extended Release Tablet Notes: (Same as: Adalat CC,Procardia XL) "Do Not Crush" "Avoid grapefruit and grapefruit juice" No Longer Active 10/06/2016 [facility] Lovenox Notes: (Same as: Loven ox) No Longer Active 10/05/2016 [facility] Acetaminophen 325 MG / Hydrocodone Jeanie trate 10 MG Oral Tablet [[place] 10/325] Notes: Do not exceed 4gm/day of acetamin ophen. (Same as: [place] 325/10) No Longer Active 10/05/2016 [facility] Morphine Notes: (Same as:MORPh ine Sulfate) Inactive 10/05/2016 [facility] Sertraline Notes: (Same as: Zo loft) No Longer Active 10/05/2016 [facility] 24 HR Nifedipine 90 MG Extended Release Tablet 90 mg, Route: PO, Drug form: ERTAB, Daily, Dosing Weight 109.545, kg, Start date: 10/05/16 9:00:00 CDT, Duration: 30 day, Stop date: 11/03/16 9:00:00 CDT No Longer Active 10/05/2016 [facility] Tramadol Notes: Not to exceed 400mg/day. (Same As: Ultram) No Longer Active 10/05/2016 [facility] Coreg Notes: Give with food. ( Same As: Coreg) No Longer Active 10/05/2016 [facility] Dextrose 50% Syringe 12.5 gm, 25 mL, Route: IVP, Drug Form: INJ, Dosing Weight 109.545, kg, PRN, PRN Blood Glucose Results, Start date: 10/04/16 20:42:00 CDT, Duration: 30 day, Stop date: 11/03/16 20:41:00 CDT No Longer Active 10/05/2016 [facility] Glucagon 1 mg, Route: IM, Drug form: PDR/INJ, PRN, Dosing Weight 109.545, kg, PRN Blood Glucose Results, Start date: 10/04/16 20:42:00 CDT, Duration: 30 day, Stop date: 11/03/16 20:41:00 CDT No Longer Active 10/05/2016 [facility] Insulin, Aspart, Human Notes: Roll in palms of hands gently; Do not shake vigorously. (Same as: NovoLOG) "single patient use only" WASTE: F/P - Black; E - Municipal Trash Bin Stable for 28 days at room temperature. Expires in days from Date No Longer Active 10/05/2016 [facility] Furosemide 20 MG Oral Tablet [Lasix] Notes: (Same as: Lasix) May cause GI upset. Give with food or milk. No Longer Active 10/04/2016 [facility] Clonidine Hydrochloride 0.1 MG Oral Tablet 0.1 mg, Route: PO, Drug form: TAB, BID, Dosing Weight 109.545, kg, Start date: 10/04/16 17:00:00 CDT, Duration: 30 day, Stop date: 11/03/16 9:00:00 CDT Inactive 10/04/2016 [facility] Sodium Chloride 0.9% IV Notes: pharmacy re-entry for product selection according to order comment. 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 (Same as: [place] 325/10) No Longer Active 10/04/2016 [facility] Dilaudid 0.5 mg, 0.5 mL, Route : IVP, Drug form: INJ, Q3H, Dosing Weight 109.545, kg, PRN Pain Score 6-10, Start date: 10/04/16 9:15:00 CDT, Duration: 30 day, Stop date: 11/03/16 9:14:00 CDT No Longer Active 10/04/2016 [facility] Furosemide 20 MG Oral Tablet [Lasix] 20 mg, Route: PO, Drug form: TAB, BID, Dosing Weight 109.545, kg, Start date: 10/04/16 9:00:00 CDT, Duration: 30 day, Stop date: 11/02/16 17:00:00 CDT Inactive 10/04/2016 [facility] Coreg 12.5 mg, Route: PO, Drug form: TAB, Q12H, Dosing Weight 109.545, kg, Start date: 10/04/16 9:00:00 CDT, Duration: 30 day, Stop date: 11/02/16 21:00:00 CDT Inactive 10/04/2016 [facility] Sodium Chloride 0.154 MEQ/ML Injectable Solution 1,000 mL, 500 ml/hr, Infuse Over: 2 hr, Route: IV, 1,000, Drug form: INJ, ONCE, Priority: STAT, Dosing Weight 109.545 kg, Start date: 10/04/16 7:04:00 CDT, Duration: 1 doses or times, Stop date: 10/04/16 7:04:00 CDT Inactive 10/04/2016 [facility] Labetalol 20 mg, Route: IVP, D rug form: INJ, Q12H, Dosing Weight 109.545, kg, Start date: 10/03/16 21:00:00 CDT, Duration: 30 day, Stop date: 11/02/16 9:00:00 CDT Inactive 10/04/2016 [facility] Famotidine Notes: (Same as: Angel pcid) No Longer Active 10/04/2016 [facility] Ketorolac 4 days. No Longer Active 10/03/2016 [facility] Zinacef + sodium chloride 0.9% 100 mL IN J (for IV set) 100 mL Notes: (Same As: Kefurox, Zinacef) pharm acy re-entry for dosing time adjustment No Longer Active 10/03/2016 [facility] Cefuroxime 750 mg, Route: IVPB , [id number], Dosing Weight 109.545, kg, Start date: 10/03/16 15:00:00 CDT, Duration: 5 day, Stop date: 10/08/16 7:00:00 CDT Inactive 10/03/2016 [facility] neostigmine (ANES) Route: IV, Drug form: INJ, ONCE, Stop date: 10/03/16 14:22:00 CDT Inactive 10/03/2016 [facility] glycopyrrolate (ANES) Route: I V, Drug form: INJ, ONCE, Stop date: 10/03/16 14:22:00 CDT Inactive 10/03/2016 [facility] phenylephrine (ANES) Route: IV , Drug form: INJ, ONCE, Stop date: 10/03/16 14:22:00 CDT Inactive 10/03/2016 [facility] Acetaminophen 325 MG / Hydrocodone Jeanie trate 7.5 MG Oral Tablet [[place] 7.5/325] Notes: Same as [place] 325-7.5mg Do not exceed 4gm/day of acetaminophen. No Longer Active 10/03/2016 [facility] Acetaminophen 325 MG / Hydrocodone Jeanie trate 5 MG Oral Tablet [[place] 5/325] Notes: (Same as: [place] 325/5) Do not ex ceed 4gm/day of acetaminophen. No Longer Activ e 10/03/2016 [facility] Ondansetron 4 MG Disintegrating Tablet Notes: (Same as: Zofran ODT) No Longer Active 10/03/2016 [facility] Morphine Notes: (Same as:MORPh ine Sulfate) No Longer Active 10/03/2016 [facility] Dilaudid 1 mg, 1 mL, Route: IV , Drug form: INJ, Q3H, Dosing Weight 109.545, kg, PRN Pain Score 6-10, Start date: 10/03/16 14:19:00 CDT, Duration: 30 day, Stop date: 11/02/16 14:18:00 CDT No Longer Active 10/03/2016 [facility] Ondansetron Notes: (Same as: Barron cain) MEDICATION WASTE Product Size: 4 mg Product Wasted: ___ mg No Longer Active 10/03/2016 [facility] Al hydroxide/Mg hydroxide/simethicone 20 0 mg-200 mg-20 mg/5 mL oral suspension Notes: (aluminum hydroxide-magnesium hyd -simethicone [phone]/5ml 30 ml ud STEPHANIE) No Longer Active 10/03/2016 [facility] propofol (ANES) Route: IV, Mal g form: INJ, ONCE, Stop date: 10/03/16 13:59:00 CDT Inactive 10/03/2016 [facility] fentaNYL (ANES) Route: IV, Mal g form: INJ, ONCE, Stop date: 10/03/16 13:59:00 CDT Inactive 10/03/2016 [facility] rocuronium (ANES) Route: IV, D rug form: INJ, ONCE, Stop date: 10/03/16 13:59:00 CDT Inactive 10/03/2016 [facility] midazolam (ANES) Route: IV, Dr ug form: SOLN, ONCE, Stop date: 10/03/16 13:59:00 CDT Inactive 10/03/2016 [facility] lidocaine (ANES) Route: IV, Dr ug form: INJ, ONCE, Stop date: 10/03/16 13:54:00 CDT Inactive 10/03/2016 [facility] succinylcholine (ANES) Route: IV, Drug form: INJ, ONCE, Stop date: 10/03/16 13:54:00 CDT Inactive 10/03/2016 [facility] ondansetron (ANES) Route: IV, Drug form: INJ, ONCE, Stop date: 10/03/16 13:54:00 CDT Inactive 10/03/2016 [facility] metroNIDAZOLE (ANES) (ANES) Ro ramona: IV, Drug form: INJ, Start date: 10/03/16 13:46:00 CDT, Stop date: 10/03/16 14:46:00 CDT Inactive 10/03/2016 [facility] LR 1000 mL INJ (ANES) Route: I V, Total Volume: 1,000, Start date: 10/03/16 13:09:00 CDT, Stop date: 10/03/16 14:09:00 CDT Inactive 10/03/2016 [facility] Metoprolol Notes: (Same as: Lo pressor) Push over 2 minutes No Longer Active 10/03/2016 [facility] albumin human 25% intravenous solution Notes: LOT#: Mfg: WASTE: F/P - Red; E -Red (Same as: Albuminar) "blood product derivative" Inactive 10/03/2016 [facility] albumin human 25% intravenous solution Notes: LOT#: Mfg: WASTE: F/P - Red; E -Red (Same as: Albuminar) "blood product derivative" Inactive 10/03/2016 [facility] albumin human 5% intravenous solution Notes: LOT#: Mfg: WASTE: F/P - Red; E -Red (Same as: Albuminar) "blood product derivative" Inactive 10/03/2016 [facility] Lasix Notes: (Same as: Lasix) No Longer Active 10/03/2016 [facility] Protonix Notes: For IV push re constitute with 10 ml 0.9% sodium chloride and push over 2 minutes. (Same as: Protonix) No Longer Active 10/03/2016 [facility] Saline Flush 0.9% Notes: (Same as: BD Posiflush) No Longer Active 10/03/2016 [facility] Levemir Notes: Same as Levemir Do not hold insulin without contacting prescriber WASTE: F/P - Black; E - Municipal Trash Bin "single patient use only" Inactive 10/03/2016 [facility] Magnesium Sulfate Notes: WASTE : F/P - Sink; E - Municipal Trash Bin Inactive 10/03/2016 [facility] Lopressor Notes: (Same as: Lop ressor) Push over 2 minutes No Longer Active 10/02/2016 [facility] niCARdipine 40 mg/ NS 200 ml IV Soln (premix) 40 mg Notes: Same as: Cardene Concentration: (0.2 mg /1 ml ) No Longer Active 10/02/2016 [facility] Lasix Notes: (Same as: Lasix) MEDICATION WASTE Product Size: 40 mg Product Wasted: ___ mg Inactive 10/02/2016 [facility] albumin human 25% intravenous solution Notes: LOT#: Mfg: WASTE: F/P - Red; E -Red (Same as: Albuminar) "blood product derivative" Inactive 10/02/2016 [facility] glucagon 1 mg, Route: INJ, Mal g form: PDR/INJ, PRN, PRN Blood Glucose Results, Start date: 10/02/16 15:36:00 CDT, Duration: 30 day, Stop date: 11/01/16 15:35:00 CDT No Longer Active 10/02/2016 [facility] Dextrose 50% in Water IV 50 mL , Route: IVP, Start date: 10/02/16 15:36:00 CDT, Duration: 30 day, Stop date: 11/01/16 15:35:00 CDT, PRN Blood Glucose Results No Longe r Active 10/02/2016 [facility] insulin aspart Notes: Roll in palms of hands gently; Do not shake vigorously. (Same as: NovoLOG) "single patient use only" WASTE: F/P - Black; E - Municipal Trash Bin Stable for 28 days at room temperature. Expires in days from Date No Longer Active 10/02/2016 [facility] insulin aspart Notes: Roll in palms of hands gently; Do not shake vigorously. (Same as: NovoLOG) "single patient use only" WASTE: F/P - Black; E - Municipal Trash Bin Stable for 28 days at room temperature. Expires in days from Date No Longer Active 10/02/2016 [facility] meropenem Notes: Same as Dionisio horton MEDICATION WASTE Product Size: 500 mg Product Wasted: ___ mg No Longer Active 10/02/2016 [facility] Saline Flush 0.9% Notes: (Same as: BD Posiflush) No Longer Active 10/02/2016 [facility] Albuterol 0.833 MG/ML / Ipratropium Brom winifred 0.167 MG/ML Inhalant Solution Notes: (Same as: Duoneb) No Longer Active 10/02/2016 [facility] Insulin regular 100 unit + sodium chlori de 0.9% INJ 99 mL 60 units) WASTE: F/P - Black; E - Viktor icipal Trash Bin Stable for 28 days at room temperature Expires in days from Date Inactive 10/02/2016 [facility] 168 HR Clonidine 0.94866 MG/HR Transdermal Patch Notes: Patch delivers 0.2 mg/24 hours; Patch is applied weekly. "Remove old patch before application of new patch" (Same As: Zecmrdia-APH-1) No Longer Active 10/02/2016 [facility] Magnesium Sulfate Notes: WASTE : F/P - Sink; E - Municipal Trash Bin Inactive 10/02/2016 [facility] Vasotec Notes: (Same as: Vasot ec-IV) Inactive 10/02/2016 [facility] Ativan Notes: (Same as: Ativan) No Longer Active 10/02/2016 [facility] heparin Notes: porcine heparin No Longer Active 10/02/2016 [facility] Labetalol Notes: (Same as: Marti Bedoya) Push over 2 minutes Give bolus over 2-3 minutes. Inactive 10/02/2016 [facility] Zosyn 3.375 gm, Route: IVPB, D rug form: PDR/INJ, [id number], Dosing Weight 109.545, kg, CrCl < 20 ml/min infuse over 4 hours, Start date: 10/02/16 6:00:00 CDT, Duration: 10 day, Stop date: 10/11/16 18:00:00 CDT, ABX Indication: Intra-abdominal Infection Inactive 10/02/2016 [facility] Flagyl Notes: (Same as: Flagyl ) Avoid alcohol. No Longer Active 10/02/2016 [facility] Insulin, Aspart, Human Notes: Roll in palms of hands gently; Do not shake vigorously. (Same as: NovoLOG) "single patient use only" WASTE: F/P - Black; E - Municipal Trash Bin Stable for 28 days at room temperature. Expires in days from Date Inactive 10/02/2016 [facility] Glucagon 1 mg, Route: IM, Drug form: PDR/INJ, PRN, Dosing Weight 109.545, kg, PRN Blood Glucose Results, Start date: 10/02/16 5:59:00 CDT, Duration: 30 day, Stop date: 11/01/16 5:58:00 CDT Inactive 10/02/2016 [facility] Dextrose 50% Syringe 12.5 gm, 25 mL, Route: IVP, Drug Form: INJ, Dosing Weight 109.545, kg, PRN, PRN Blood Glucose Results, Start date: 10/02/16 5:59:00 CDT, Duration: 30 day, Stop date: 11/01/16 5:58:00 CDT Inactive 10/02/2016 [facility] Nitroglycerin 0.02 MG/MG Topical Ointment Notes: 1 gram is approximately 1 inch of nitroglycerin ointment (20 mg NTG per gram) (Same as:Nitro-Bid) Inactive 10/02/2016 [facility] Ciprofloxacin 200 mg, 100 mL, Route: IVPB, Drug form: INJ, [id number], Dosing Weight 109.545, kg, Priority: STAT, Start date: 10/02/16 5:50:00 CDT, Duration: 10 day, Stop date: 10/11/16 17:50:00 CDT, ABX Indication: Intra-abdominal Infection Inactive 10/02/2016 [facility] Dilaudid 2 mg, 2 mL, Route: IV P, Drug form: INJ, Q4H, Dosing Weight 109.545, kg, PRN Pain Score 4-6, Start date: 10/02/16 5:46:00 CDT, Stop date: 11/01/16 5:45:00 CDT No Longer Active 10/02/2016 [facility] Maalox Advanced Regular Strength SUSP Notes: (aluminum hydroxide-magnesium hyd-simethicone [phone]/5ml 30 ml ud STEPHANIE) No Longer Active 10/02/2016 [facility] Trazodone Notes: (Same As: Caden yrel) No Longer Active 10/02/2016 [facility] Hydralazine Notes: (Same as: A presoline) Push over 5 minutes No Longer Active 10/02/2016 [facility] Guaifenesin 20 MG/ML Oral Solution [Robitussin] Notes: (Same as: Robitussin) No Longe r Active 10/02/2016 [facility] Docusate Notes: (Same as: Cola ce) (Do Not Crush) No Longer Active 10/02/2016 [facility] Ondansetron Notes: (Same as: Barron cain) MEDICATION WASTE Product Size: 4 mg Product Wasted: ___ mg No Longer Active 10/02/2016 [facility] Acetaminophen Notes: Do not ex ceed 4 gm/day. (Same as: Tylenol) No Longer Active 10/02/2016 [facility] Labetalol Notes: (Same as: Laurie stone Trandatimothy) Push over 2 minutes Give bolus over 2-3 minutes. Inactive 10/02/2016 [facility] Ativan 2 mg, Route: IVP, Drug form: INJ, ONCE, Dosing Weight 109.545, kg, PRN Anxiety, Start date: 10/02/16 5:32:00 CDT Inactive 10/02/2016 [facility] Zofran Notes: (Same as: Zofran ) MEDICATION WASTE Product Size: 4 mg Product Wasted: ___ mg Inactive 10/02/2016 [facility] sodium chloride 0.9% 1000 ml INJ 1,000 mL 1,000 mL, Rate: 100 ml/hr, Infuse over: 10 hr, Route: IV, Dosing Weight 109.545 kg, Total Volume: 1,000, Start date: 10/02/16 4:35:00 CDT, Duration: 30 day, Stop date: 11/01/16 4:34:00 CDT No Longer Active 10/02/2016 [facility] Dilaudid 1 mg, 1 mL, Route: IV P, Drug form: INJ, ONCE, Dosing Weight 109.545, kg, Priority: STAT, Start date: 10/02/16 4:35:00 CDT, Stop date: 10/02/16 4:35:00 CDT Inactive 10/02/2016 [facility] Hydralazine 20 mg, Route: IVP, ONCE, Dosing Weight 109.545, kg, Priority: STAT, Start date: 10/02/16 4:19:00 CDT, Stop date: 10/02/16 4:19:00 CDT Inactive 10/02/2016 [facility] Dilaudid 1 mg, 1 mL, Route: IV P, Drug form: INJ, ONCE, Dosing Weight 109.545, kg, Priority: STAT, Start date: 10/02/16 2:36:00 CDT, Stop date: 10/02/16 2:36:00 CDT Inactive 10/02/2016 [facility] BD Normal Saline Flush Notes: (Same as: BD Posiflush) No Longer Active 10/02/2016 [facility] Sodium Chloride 0.9% IV 250 mL , Route: IVPB, Start date: 10/02/16 2:04:00 CDT, Duration: 30 day, Stop date: 11/01/16 2:03:00 CDT, PRN Line Flush No Longer Active 10/02/2016 [facility] Hydralazine Notes: (Same as: A presoline) Push over 5 minutes Inactive 10/02/2016 [facility] Ondansetron Notes: (Same as: Barron cain) MEDICATION WASTE Product Size: 4 mg Product Wasted: ___ mg Inactive 10/02/2016 [facility] Morphine Notes: (Same as:MORPh ine Sulfate) Inactive 10/02/2016 [facility] Sodium Chloride 0.154 MEQ/ML Injectable Solution 1,000 mL, 2,000 ml/hr, Infuse Over: 30 minutes, Route: IV, 1,000, Drug form: INJ, ONCE, Priority: STAT, Dosing Weight 109.545 kg, Start date: 10/02/16 2:02:00 CDT, Duration: 1 doses or times, Stop date: 10/02/16 2:02:00 CDT Inactive 10/02/2016 [facility] Saline Flush 0.9% Notes: (Same as: BD Posiflush) Inactive 10/02/2016 [facility] Docusate Sodium 100 MG Oral Capsule 100 mg = 1 cap, PO, BID, # 60 cap, 0 Refill(s) Active 09/28/2016 [facility] Clonidine Hydrochloride 0.1 MG Oral Tablet 0.1 mg = 1 tab, PO, Q8H, # 120 tab, 0 Refill(s) Active 09/28/2016 [facility] baclofen 10 mg oral tablet 10 mg = 1 tab, PO, TID, # 21 tab, 0 Refill(s) Active 09/28/2016 [facility] Acetaminophen 300 MG / Codeine Phosphate 30 MG Oral Tablet 2 tab, PO, Q6H, # 30 tab, 0 Refill(s) Active 09/28/2016 [facility] carvedilol 25 mg oral tablet 2 5 mg = 1 tab, PO, Q12H, # 60 tab, 0 Refill(s) Active 09/28/2016 [facility] 24 HR Nifedipine 90 MG Extended Release Tablet 90 mg = 1 tab, PO, Daily, # 30 tab, 0 Refill(s) Active 09/28/2016 [facility] Sodium Bicarbonate 650 MG Oral Tablet 650 mg = 1 tab, PO, BID, # 30 tab, 0 Refill(s) Active 09/28/2016 [facility] sertraline 50 mg oral tablet 5 0 mg = 1 tab, PO, Daily, # 30 tab, 0 Refill(s) Active 09/28/2016 [facility] phenazopyridine 100 mg oral tablet 200 mg = 2 tab, PO, TID-After Meals, # 21 tab, 0 Refill(s) Active 09/28/2016 [facility] Hydrocortisone 10 MG/ML / Neomycin 3.5 M G/ML / Polymyxin B 88687 UNT/ML Otic Solution [Cortisporin Otic] 2 drp, RIGHT EAR, QID, # 1 tube, 0 Refill(s) Active 09/28/2016 [facility] Baclofen Notes: (Same As: Boaz esal) No Longer Active 09/28/2016 [facility] acetaminophen-codeine 300 mg-30 mg oral tablet Notes: Do not exceed 4gm/day of acetaminophen. (Same as: Tylenol with Codeine # 3) No Longer Active 09/27/2016 [facility] ertapenem Notes: (Same as: INV anz) Refrigerate. NOT COMPATIBLE WITH D5W. Stable in refrigerator for 24 hours MEDICATION WASTE Product Size: 1000 mg Product Wasted: ___ mg No Longer Active 09/27/2016 [facility] Pyridium Notes: Give with meal s. (Same as: Pyridium) No Longer Active 09/27/2016 [facility] Acetaminophen 300 MG / Codeine Phosphate 30 MG Oral Tablet [Tylenol with Codeine #3] Notes: Do not exceed 4gm/day of acetamin ophen. (Same as: Tylenol with Codeine # 3) Inactive 09/27/2016 [facility] Acetaminophen 300 MG / Codeine Phosphate 30 MG Oral Tablet [Tylenol with Codeine #3] Notes: Do not exceed 4gm/day of acetamin ophen. (Same as: Tylenol with Codeine # 3) Inactive 09/27/2016 [facility] Zoloft Notes: (Same as: Zolof t) No Longer Active 09/26/2016 [facility] Kayexalate Notes: (sodium poly styrene sulfonate 15 gm/60 ml STEPHANIE) Shake well before use. (Same as: Kayexalate, SPS) Inactive 09/25/2016 [facility] Kayexalate Notes: (sodium poly styrene sulfonate 15 gm/60 ml STEPHANIE) Shake well before use. (Same as: Kayexalate, SPS) Inactive 09/24/2016 [facility] Zofran Notes: (Same as: Zofran ) MEDICATION WASTE Product Size: 4 mg Product Wasted: ___ mg No Longer Active 09/24/2016 [facility] Docusate Notes: (Same as: Cola ce) (Do Not Crush) No Longer Active 09/23/2016 [facility] Phenergan Notes: Do not give I V push. (Same as: Phenergan) No Longer Active 09/23/2016 [facility] Kayexalate Notes: (sodium poly styrene sulfonate 15 gm/60 ml STEPHANIE) Shake well before use. (Same as: Kayexalate, SPS) Inactive 09/23/2016 [facility] Zofran Notes: (Same as: Zofran ) MEDICATION WASTE Product Size: 4 mg Product Wasted: ___ mg No Longer Active 09/22/2016 [facility] Sodium Bicarbonate Notes: "Dis solve tablet in a glass of water prior to oral administration. STOMACH WARNING: To avoid serious injury, do not take until tablet is completely dissolved. It is very important not to t desirae this product when overly full from food or drink." No Longer Active 09/22/2016 [facility] Kayexalate Notes: (sodium poly styrene sulfonate 15 gm/60 ml STEPHANIE) Shake well before use. (Same as: Kayexalate, SPS) Inactive 09/22/2016 [facility] Zoloft Notes: (Same as: Zoloft) No Longer Active 09/22/2016 [facility] Clonidine Hydrochloride 0.1 MG Oral Tablet Notes: (Same As: Catapres) No Longer Active 09/22/2016 [facility] sodium chloride 0.45% 1000 ml INJ 1,000 mL 1,000 mL, Rate: 125 ml/hr, Infuse over: 8 hr, Route: IV, Dosing Weight 118.182 kg, Total Volume: 1,000, Start date: 09/21/16 14:58:00 CDT, Duration: 1 doses or times, Stop date: 09/21/16 22:57:00 CDT Inactive 09/21/2016 [facility] [facility] Metoclopramide Notes: (Same as : Reglan) Inactive 09/21/2016 [facility] Dextrose 50% in Water IV 25 gm , 50 mL, Route: IV, Drug Form: INJ, ONCE, Start date: 09/20/16 11:00:00 CDT, Stop date: 09/20/16 11:00:00 CDT Inactive 09/20/2016 [facility] Insulin regular 60 units) W ASTE: F/P - Black; E - BioMedFlex Trash Bin Stable for 28 days at room temperature Expires in days from Date Inactive 09/20/2016 [facility] Dextrose 50% in Water IV 25 gm , 50 mL, Route: IV, Drug Form: INJ, ONCE, Start date: 09/20/16 9:00:00 CDT, Stop date: 09/20/16 9:00:00 CDT Inactive 09/20/2016 [facility] insulin aspart Notes: Roll in palms of hands gently; Do not shake vigorously. (Same as: NovoLOG) "single patient use only" WASTE: F/P - Black; E - Municipal Trash Bin Stable for 28 days at room temperature. Expires in days from Date Inactive 09/20/2016 [facility] glucose 25 gm, Route: IVPB, Do sing Weight 118.182, kg, ONCE, Start date: 09/20/16 8:03:00 CDT, Stop date: 09/20/16 8:03:00 CDT Inactive 09/20/2016 [facility] Insulin regular 10 unit, Route : SUB-Q, ONCE, Dosing Weight 118.182, kg, Start date: 09/20/16 8:01:00 CDT, Stop date: 09/20/16 8:01:00 CDT Inactive 09/20/2016 [facility] Lactated Ringers 1,000 mL 1,00 0 mL, Rate: 125 ml/hr, Infuse over: 8 hr, Route: IV, Dosing Weight 118.182 kg, Total Volume: 1,000, Start date: 09/19/16 14:07:00 CDT, Duration: 30 day, Stop date: 10/19/16 14:06:00 CDT No Longer Active 09/19/2016 [facility] Albuterol 0.83 MG/ML Inhalant Solution Notes: SEE RT DOCUMENTATION (Same as: Jony) No Longer Active 09/19/2016 [facility] Luis Notes: (Same as: Luis ) MEDICATION WASTE Product Size: 4 mg Product Wasted: ___ mg No Longer Active 09/19/2016 [facility] Albuterol 0.83 MG/ML Inhalant Solution Notes: SEE RT DOCUMENTATION (Same as: Proventil) Inactive 09/18/2016 [facility] Kayexalate Notes: (sodium poly styrene sulfonate 15 gm/60 ml STEPHANIE) Shake well before use. (Same as: Kayexalate, SPS) Inactive 09/18/2016 [facility] Acetaminophen 325 MG / Hydrocodone Jeanie trate 5 MG Oral Tablet [[place] 5/325] Notes: (Same as: [place] 325/5) Do not ex ceed 4gm/day of acetaminophen. Inactive 09/18/2016 [facility] meropenem Notes: (Same as: Mile rem) . MEDICATION WASTE Product Size: 1000 mg Product Wasted: ___ mg No Longer Active 09/18/2016 [facility] meropenem 1,000 mg, Route: IV, Q8H, Dosing Weight 118.182, kg, Start date: 09/18/16 9:18:00 CDT, Duration: 30 day, Stop date: 10/18/16 8:00:00 CDT, ABX Indication: Urinary Tract Infection Inactive 09/18/2016 [facility] Calcium Gluconate Notes: WASTE : F/P - Sink; E - Municipal Trash Bin Inactive 09/17/2016 [facility] Acetaminophen 325 MG / Hydrocodone Jeanie trate 5 MG Oral Tablet [[place] 5/325] Notes: (Same as: [place] 325/5) Do not ex ceed 4gm/day of acetaminophen. Inactive 09/17/2016 [facility] Ceftriaxone Notes: (Same As: Musa mahoney). Use with 100 mL NS and infuse over 30 min MEDICATION WASTE Product Size: 1000 mg Product Wasted: ___ mg Inactive 09/17/2016 [facility] Morphine Notes: (Same as:MORPh ine Sulfate) No Longer Active 09/16/2016 [facility] Zofran Notes: (Same as: Zofran ) MEDICATION WASTE Product Size: 4 mg Product Wasted: ___ mg No Longer Active 09/16/2016 [facility] cefepime Notes: (Same As: Jose C duckworth) MEDICATION WASTE Product Size: 1000 mg Product Wasted: ___ mg No Longer Active 09/16/2016 [facility] 24 HR Nifedipine 90 MG Extended Release Tablet Notes: (Same as: Adalat CC,Procardia XL) "Do Not Crush" "Avoid grapefruit and grapefruit juice" No Longer Active 09/16/2016 [facility] carvedilol Notes: Give with fo od. (Same As: Coreg) No Longer Active 09/16/2016 [facility] Zofran Notes: (Same as: Zofran ) MEDICATION WASTE Product Size: 4 mg Product Wasted: ___ mg Inactive 09/16/2016 [facility] pantoprazole Notes: Tablet hubert uld not be chewed or crushed. (Same as: Protonix) N o Longer Active 09/16/2016 [facility] Morphine Notes: (Same as:MORPh ine Sulfate) Inactive 09/16/2016 [facility] Hydrocortisone 10 MG/ML / Neomycin 3.5 M G/ML / Polymyxin B 84653 UNT/ML Otic Solution [Cortisporin Otic] Notes: (Same as: Cortipsorin Otic Susp) (hdzizurvxrndhx-drdcytmc-vsltiolv B 10ml otic STEPHANIE) WASTE: F/P - Black; E - Municipal Trash Bin Shake well before use. No Longer Active 09/16/2016 [facility] Levemir 15 unit, SUB-Q, Bedtim e, 0 Refill(s) No Longer Active 09/16/2016 [facility] Furosemide 20 MG Oral Tablet [Lasix] 20 mg = 1 tab, PO, Daily, # 30 tab, 0 Refill(s) N o Longer Active 09/16/2016 [facility] Labetalol 20 mg, PO, BID, 0 Re fill(s) No Longer Active 09/16/2016 [facility] Hydralazine =100 Inactive 09/16/2016 [facility] Hydralazine Notes: (Same as: A presoline) Push over 5 minutes No Longer Active 09/16/2016 [facility] Insulin, Aspart, Human Notes: Roll in palms of hands gently; Do not shake vigorously. (Same as: NovoLOG) "single patient use only" WASTE: F/P - Black; E - Municipal Trash Bin Stable for 28 days at room temperature. Expires in days from Date No Longer Active 09/16/2016 [facility] Dextrose 50% Syringe 12.5 gm, 25 mL, Route: IVP, Drug Form: INJ, Dosing Weight 118.182, kg, PRN, PRN Blood Glucose Results, Start date: 09/15/16 23:58:00 CDT, Duration: 30 day, Stop date: 10/15/16 23:57:00 CDT No Longer Active 09/16/2016 [facility] Glucagon 1 mg, Route: IM, Drug form: PDR/INJ, PRN, Dosing Weight 118.182, kg, PRN Blood Glucose Results, Start date: 09/15/16 23:58:00 CDT, Duration: 30 day, Stop date: 10/15/16 23:57:00 CDT No Longer Active 09/16/2016 [facility] Tylenol Notes: Do not exceed 4 gm/day. (Same as: Tylenol) No Longer Active 09/16/2016 [facility] Acetaminophen 325 MG / Hydrocodone Jeanie trate 10 MG Oral Tablet [[place] 10/325] Notes: Do not exceed 4gm/day of acetamin ophen. (Same as: [place] 325/10) No Longer Active 09/16/2016 [facility] BD Normal Saline Flush Notes: (Same as: BD Posiflush) No Longer Active 09/16/2016 [facility] Sodium Chloride 0.9% IV 250 mL , Route: IVPB, Start date: 09/15/16 23:25:00 CDT, Duration: 30 day, Stop date: 10/15/16 23:24:00 CDT, PRN Line Flush No Longer Active 09/16/2016 [facility] Saline Flush 0.9% 10 ml, Route : IVP, Drug Form: INJ, Dosing Weight 118.182, kg, PRN, PRN Line Flush, Start date: 09/15/16 23:14:00 CDT, Duration: 30 day, Stop date: 10/15/16 23:13:00 CDT Inactive 09/16/2016 [facility] Sodium Chloride 0.154 MEQ/ML Injectable Solution 1,000 mL, Rate: 100 ml/hr, Infuse over: 10 hr, Route: IV, Dosing Weight 118.182 kg, Total Volume: 1,000, Start date: 09/15/16 23:14:00 CDT, Duration: 30 day, Stop date: 10/15/16 23:13:00 CDT No Longer Active 09/16/2016 [facility] Morphine Notes: (Same as:MORPh ine Sulfate) Inactive 09/16/2016 [facility] Ceftriaxone Notes: (Same As: Musa mahoney). Use with 100 mL NS and infuse over 30 min MEDICATION WASTE Product Size: 1000 mg Product Wasted: ___ mg Inactive 09/16/2016 [facility] Zofran Notes: (Same as: Zofran ) MEDICATION WASTE Product Size: 4 mg Product Wasted: ___ mg Inactive 09/16/2016 [facility] Morphine Notes: (Same as:MORPh ine Sulfate) Inactive 09/16/2016 [facility] Saline Flush 0.9% Notes: (Same as: BD Posiflush) Inactive 09/16/2016 [facility] Acetaminophen 300 MG / Codeine Phosphate 30 MG Oral Tablet [Tylenol with Codeine #3] Notes: Do not exceed 4gm/day of acetamin ophen. (Same as: Tylenol with Codeine # 3) Inactive 09/11/2016 [facility] Melatonin Notes: (Same as: Sydney atonin) Inactive 09/11/2016 [facility] Benadryl Notes: (Same as: Sandra dryl) Inactive 09/11/2016 [facility] Acetaminophen 300 MG / Codeine Phosphate 30 MG Oral Tablet [Tylenol with Codeine #3] Notes: Do not exceed 4gm/day of acetamin ophen. (Same as: Tylenol with Codeine # 3) No Longer Active 09/10/2016 [facility] Loperamide Notes: (Same as: Im odium) MAX adult dose is 8 caps/day No Longer Active 09/09/2016 [facility] Loperamide Notes: (Same as: Im odium) MAX adult dose is 8 caps/day Inactive 09/09/2016 [facility] acetaminophen 500 mg oral tablet 1,000 mg = 2 tab, PO, Q6H, X 10 day, # 80 tab, 0 Refill(s) No Longer Active 09/09/2016 [facility] methocarbamol 500 mg oral tablet 1,000 mg = 2 tab, PO, Q6H, X 7 day, # 56 tab, 0 Refill(s) Active 09/09/2016 [facility] tamsulosin 0.4 mg oral capsule 0.4 mg = 1 cap, PO, After Breakfast, # 14 cap, 0 Refill(s) Active 09/09/2016 [facility] Docusate Sodium 50 MG Oral Capsule [Colace] 50 mg = 1 cap, PO, BID, PRN Constipation, # 60 cap, 0 Refill(s) No Longer Active 09/09/2016 [facility] gabapentin 300 MG Oral Capsule 300 mg = 1 cap, PO, Q12H, # 90 cap, 1 Refill(s) Active 09/09/2016 [facility] tramadol hydrochloride 50 MG Oral Tablet 50 mg = 1 tab, PO, Q6H, PRN Pain Score 6-10, X 10 day, # 40 tab, 0 Refill(s) Active 09/09/2016 [facility] POLYETHYLENE GLYCOL 3350 142 MG/ML Oral Solution [Miralax] 17 gm, PO, Daily, Dissolve in 8 oz. of w ater, X 7 day, # 12 ea, 1 Refill(s) No Longer Active 09/09/2016 [facility] Robaxin Notes: (Same as:Robaxi n) No Longer Active 09/09/2016 [facility] gabapentin Notes: (Same as: Ne urontin) No Longer Active 09/09/2016 [facility] oxybutynin Notes: Same as: Domoniquet ropan) No Longer Active 09/08/2016 [facility] Dilaudid Notes: Same as: Dilau did Inactive 09/08/2016 [facility] MAGNESIUM GLUCONATE 500 mg, Ro ramona: PO, Drug form: TAB, BID, Dosing Weight 118.182, kg, Start date: 09/08/16 17:00:00 CDT, Duration: 30 day, Stop date: 10/08/16 9:00:00 CDT Inactive 09/08/2016 [facility] Acetaminophen 10 MG/ML Injectable Solution Notes: Infuse over 15 minutes Do not exceed 4gm/day of acetaminophen MEDICATION WASTE Product Size: 1000 mg Product Wasted: ___ mg Inactive 09/08/2016 [facility] Magnesium Oxide Notes: (Same a s: Mag-Ox 400) Magnesium oxide [id number] elemental magnesium Dose=____mg magnesium oxide (___mg elemental magnesium) No Longer Active 09/08/2016 [facility] Acetaminophen 300 MG / Codeine Phosphate 30 MG Oral Tablet [Tylenol with Codeine #3] Notes: Do not exceed 4gm/day of acetamin ophen. (Same as: Tylenol with Codeine # 3) No Longer Active 09/08/2016 [facility] Flomax Notes: (Same As: Flomax ) "Do Not Crush" No Longer Active 09/08/2016 [facility] Hydralazine Hydrochloride 100 MG Oral Tablet Notes: (Same as: Apresoline) May interfere w/enteral feedings Take With Food No Longer Active 09/08/2016 [facility] 24 HR Nifedipine 90 MG Extended Release Tablet Notes: (Same as: Adalat CC,Procardia XL) "Do Not Crush" "Avoid grapefruit and grapefruit juice" No Longer Active 09/08/2016 [facility] Furosemide 20 MG Oral Tablet [Lasix] Notes: (Same as: Lasix) May cause GI upset. Give with food or milk. No Longer Active 09/08/2016 [facility] Miralax Notes: Dissolve in 8 o z of water or juice. (Same as: Miralax) No Longer Active 09/08/2016 [facility] MAGNESIUM GLUCONATE 1,000 mg, Route: PO, Drug form: LIQ, Daily, Dosing Weight 118.182, kg, Start date: 09/08/16 9:00:00 CDT, Duration: 30 day, Stop date: 10/07/16 9:00:00 CDT Inactive 09/08/2016 [facility] Levemir Notes: Same as Levemir Do not hold insulin without contacting prescriber WASTE: F/P - Black; E - Municipal Trash Bin "single patient use only" No Longer Active 09/08/2016 [facility] carvedilol Notes: Give with fo od. (Same As: Coreg) No Longer Active 09/08/2016 [facility] atorvastatin Notes: (Same as: Lipitor) No Longer Active 09/08/2016 [facility] Metoprolol 5 mg, Route: IV, ON CE, Dosing Weight 118.182, kg, Start date: 09/07/16 18:07:00 CDT, Stop date: 09/07/16 18:07:00 CDT Inactive 09/07/2016 [facility] Tylenol Notes: Max acetaminoph en 4000 mg/day (4 gm/day). (Same as: Tylenol Extra Strength) No Longer Active 09/07/2016 [facility] Tramadol Notes: Not to exceed 400mg/day. (Same As: Ultram) Inactive 09/07/2016 [facility] Ondansetron Notes: (Same as: Barron cain) MEDICATION WASTE Product Size: 4 mg Product Wasted: ___ mg Inactive 09/07/2016 [facility] Naloxone Notes: Same as Narcan Inactive 09/07/2016 [facility] Hydromorphone Notes: Same as: Dilaudid Inactive 09/07/2016 [facility] Flumazenil Notes: (Same as: Ro mazicon) Inactive 09/07/2016 [facility] Hydralazine Notes: (Same as: A presoline) Push over 5 minutes Inactive 09/07/2016 [facility] Metoprolol Notes: (Same as: Lo pressor) Push over 2 minutes Inactive 09/07/2016 [facility] Labetalol 10 mg, 2 mL, Route: IVP, Drug form: INJ, Q5Min, Dosing Weight 118.182, kg, PRN Elevated BP, Start date: 09/07/16 17:23:00 CDT, Duration: 5 doses or times, Stop date: Limited # of times Inactive 09/07/2016 [facility] esmolol Notes: (Same as: Brevi bloc) Inactive 09/07/2016 [facility] phenylephrine (ANES) Route: IV , Drug form: INJ, ONCE, Stop date: 09/07/16 17:19:00 CDT Inactive 09/07/2016 [facility] Amlodipine 5 mg, PO, Daily, 0 Refill(s) Active 09/07/2016 [facility] ceFAZolin (ANES) Route: IV, Dr ug form: INJ, ONCE, Stop date: 09/07/16 17:10:00 CDT Inactive 09/07/2016 [facility] Docusate Notes: (Same as: Cola ce) (Do Not Crush) No Longer Active 09/07/2016 [facility] propofol (ANES) Route: IV, Mal g form: INJ, ONCE, Stop date: 09/07/16 16:50:00 CDT Inactive 09/07/2016 [facility] fentaNYL (ANES) Route: IV, Mal g form: INJ, ONCE, Stop date: 09/07/16 16:50:00 CDT Inactive 09/07/2016 [facility] rocuronium (ANES) Route: IV, D rug form: INJ, ONCE, Stop date: 09/07/16 16:50:00 CDT Inactive 09/07/2016 [facility] metoclopramide (ANES) Route: I V, Drug form: INJ, ONCE, Stop date: 09/07/16 16:45:00 CDT Inactive 09/07/2016 [facility] famotidine (ANES) Route: IV, D rug form: INJ, ONCE, Stop date: 09/07/16 16:45:00 CDT Inactive 09/07/2016 [facility] succinylcholine (ANES) Route: IV, Drug form: INJ, ONCE, Stop date: 09/07/16 16:45:00 CDT Inactive 09/07/2016 [facility] lidocaine (ANES) Route: IV, Dr ug form: INJ, ONCE, Stop date: 09/07/16 16:45:00 CDT Inactive 09/07/2016 [facility] dexamethasone (ANES) Route: IV , Drug form: INJ, ONCE, Stop date: 09/07/16 16:40:00 CDT Inactive 09/07/2016 [facility] ondansetron (ANES) Route: IV, Drug form: INJ, ONCE, Stop date: 09/07/16 16:40:00 CDT Inactive 09/07/2016 [facility] heparin Notes: porcine heparin No Longer Active 09/07/2016 [facility] gabapentin Notes: (Same as: Ne urontin) No Longer Active 09/07/2016 [facility] LR 1000 mL INJ (ANES) Route: I V, Total Volume: 1,000, Start date: 09/07/16 15:59:00 CDT, Stop date: 09/07/16 16:59:00 CDT Inactive 09/07/2016 [facility] Labetalol Notes: Give bolus ov er 2-3 minutes.(Same as:Normodyne) No Longer Active 09/07/2016 [facility] Hydralazine Notes: (Same as: A presoline) Push over 5 minutes No Longer Active 09/07/2016 [facility] Oxycodone Hydrochloride 5 MG Oral Tablet Notes: (Same as: Roxicodone) No Longer Active 09/07/2016 [facility] 24 HR Nifedipine 90 MG Extended Release Tablet 90 mg, Route: PO, Drug form: ERTAB, ONCE, Dosing Weight 112.727, kg, Start date: 09/07/16 14:25:00 CDT, Stop date: 09/07/16 14:25:00 CDT Inactive 09/07/2016 [facility] Hydralazine 10 mg, Route: IV, ONCE, Dosing Weight 112.727, kg, Start date: 09/07/16 14:25:00 CDT, Stop date: 09/07/16 14:25:00 CDT, Inactive 09/07/2016 [facility] Insulin regular 60 units) W ASTE: F/P - Black; E - BioMedFlex Trash Bin Stable for 28 days at room temperature Expires in days from Date N o Longer Active 09/07/2016 [facility] Dextrose 50% Syringe 25 gm, 50 mL, Route: IVP, Drug Form: INJ, Dosing Weight 112.727, kg, PRN, PRN Blood Glucose Results, Start date: 09/07/16 13:49:00 CDT, Duration: 30 day, Stop date: 10/07/16 13:48:00 CDT No Longer Active 09/07/2016 [facility] Glucagon 1 mg, Route: IM, Drug form: PDR/INJ, PRN, Dosing Weight 112.727, kg, PRN Blood Glucose Results, Start date: 09/07/16 13:49:00 CDT, Duration: 30 day, Stop date: 10/07/16 13:48:00 CDT No Longer Active 09/07/2016 [facility] Saline Flush 0.9% Notes: (Same as: BD Posiflush) No Longer Active 09/07/2016 [facility] Lactated Ringers 1,000 mL 1,00 0 mL, Rate: 100 ml/hr, Infuse over: 10 hr, Route: IV, Dosing Weight 112.727 kg, Total Volume: 1,000, Start date: 09/07/16 13:31:00 CDT, Duration: 30 day, Stop date: 10/07/16 13:30:00 CDT Inactive 09/07/2016 [facility] Tramadol Notes: Not to exceed 400mg/day. (Same As: Ultram) No Longer Active 09/07/2016 [facility] Robaxin Notes: (Same as:Robaxi n) No Longer Active 09/07/2016 [facility] Morphine Notes: (Same as:MORPh ine Sulfate) No Longer Active 09/07/2016 [facility] Ondansetron Notes: (Same as: Barron cain) MEDICATION WASTE Product Size: 4 mg Product Wasted: ___ mg No Longer Active 09/07/2016 [facility] Bisacodyl Notes: (Same As: Dul colax, Bisco-Lax) No Longer Active 09/07/2016 [facility] Morphine Notes: (Same as:MORPh ine Sulfate) Inactive 09/07/2016 [facility] Morphine 4 mg, Route: IVP, ONC E, Dosing Weight 112.727, kg, Priority: STAT, Start date: 09/07/16 10:50:00 CDT, Stop date: 09/07/16 10:50:00 CDT Inactive 09/07/2016 [facility] Zofran Notes: (Same as: Zofran ) MEDICATION WASTE Product Size: 4 mg Product Wasted: ___ mg Inactive 09/07/2016 [facility] Sodium Chloride 0.154 MEQ/ML Injectable Solution 1,000 mL, 1,000 ml/hr, Infuse Over: 1 hr, Route: IV, 1,000, Drug form: INJ, ONCE, Priority: STAT, Dosing Weight 112.727 kg, Start date: 09/07/16 9:42:00 CDT, Duration: 1 doses or times, Stop date: 09/07/16 9:42:00 CDT Inactive 09/07/2016 [facility] Tramadol Notes: Not to exceed 400mg/day. (Same As: Ultram) Inactive 09/07/2016 [facility] Morphine Notes: (Same as:MORPh ine Sulfate) Inactive 08/26/2016 [facility] Ondansetron 4 mg, Route: IVP, Drug form: INJ, ONCE, Dosing Weight 114.545, kg, Priority: STAT, Start date: 08/26/16 14:00:00 CDT, Stop date: 08/26/16 14:00:00 CDT Inactive 08/26/2016 [facility] Morphine 4 mg, Route: IVP, ONC E, Dosing Weight 114.545, kg, Priority: STAT, Start date: 08/26/16 14:00:00 CDT, Stop date: 08/26/16 14:00:00 CDT Inactive 08/26/2016 [facility] Sodium Chloride 0.154 MEQ/ML Injectable Solution 500 mL, 500 ml/hr, Infuse Over: 1 hr, Route: IV, 500, Drug form: INJ, ONCE, Priority: STAT, Dosing Weight 114.545 kg, Start date: 08/26/16 13:08:00 CDT, Duration: 1 doses or times, Stop date: 08/26/16 13:08:00 CDT Inactive 08/26/2016 [facility] Isolyte S PH-7.4 (Bolus) IV 1, 000 mL, Route: IV, Dosing Weight 114.545, kg, ONCE, Start date: 08/26/16 12:04:00 CDT, Stop date: 08/26/16 12:04:00 CDT Inactive 08/26/2016 [facility] Ondansetron Notes: (Same as: Barron cain) MEDICATION WASTE Product Size: 4 mg Product Wasted: ___ mg Inactive 08/26/2016 [facility] Morphine Notes: (Same as:MORPh ine Sulfate) Inactive 08/26/2016 [facility] ursodiol 300 mg oral capsule 3 00 mg = 1 cap, PO, BID, # 180 cap, 0 Refill(s) Active 08/25/2016 [facility] Ondansetron Notes: (Same as: Barron cain) MEDICATION WASTE Product Size: 4 mg Product Wasted: ___ mg Inactive 08/25/2016 [facility] Morphine Notes: (Same as:MORPh ine Sulfate) Inactive 08/25/2016 [facility] Isolyte S PH-7.4 (Bolus) IV No rosie: (Same as: Isolyte S PH 7.4) No Longer Active 08/25/2016 [facility] Dilaudid 1 mg, Route: IV, ONCE , Dosing Weight 114.091, kg, Start date: 08/24/16 23:26:00 CDT, Stop date: 08/24/16 23:26:00 CDT Inactive 08/25/2016 [facility] Clindamycin 900 mg, Route: IVP B, ONCE, Dosing Weight 114.091, kg, Priority: STAT, Start date: 08/24/16 21:58:00 CDT, Stop date: 08/24/16 21:58:00 CDT Inactive 08/25/2016 [facility] Zofran 4 mg, Route: IVP, Drug form: INJ, ONCE, Dosing Weight 114.091, kg, Priority: STAT, Start date: 08/24/16 21:56:00 CDT, Stop date: 08/24/16 21:56:00 CDT Inactive 08/25/2016 [facility] Morphine 4 mg, Route: IVP, ONC E, Dosing Weight 114.091, kg, Priority: STAT, Start date: 08/24/16 21:56:00 CDT, Stop date: 08/24/16 21:56:00 CDT Inactive 08/25/2016 [facility] Dicyclomine Hydrochloride 20 MG Oral Tablet [Bentyl] 20 mg = 1 tab, PO, QID-Before Meals, PRN Abdominal Pain, # 60 tab, 0 Refill(s) Active 08/22/2016 [facility] Morphine Notes: (Same as:MORPh ine Sulfate) Inactive 08/22/2016 [facility] Phenergan Notes: Do not give I V push. (Same as: Phenergan) Inactive 08/22/2016 [facility] [facility] Morphine Notes: (Same as: MORP shelton Sulfate) Inactive 08/22/2016 [facility] remove patch Notes: Remove pat ch 12 hours after application each day. Inactive 08/19/2016 [facility] Levemir Notes: Same as Levemir Do not hold insulin without contacting prescriber WASTE: F/P - Black; E - Municipal Trash Bin "single patient use only" Inactive 08/18/2016 [facility] Protonix Notes: Tablet should not be chewed or crushed. (Same as: Protonix) Inactive 08/18/2016 [facility] atorvastatin Notes: (Same as: Lipitor) No Longer Active 08/18/2016 [facility] sennosides, DETENTION Notes: (Same a s: Senokot) No Longer Active 08/18/2016 [facility] Sucralfate 100 MG/ML Oral Suspension 1 gm = 10 mL, PO, QID, # 560 mL, 0 Refill(s), Pharmacy: [facility] [id number] Active 08/17/2016 [facility] pantoprazole 40 mg oral enteric coated tablet 40 mg = 1 tab, PO, Daily, # 30 tab, 0 Refill(s), Pharmacy: [facility] [id number] Active 08/17/2016 [facility] Sucralfate 100 MG/ML Oral Suspension 1 gm, 1 tab, Route: PO, Drug form: TAB, QID, Dosing Weight 120.597, kg, Start date: 08/17/16 13:00:00 CDT, Duration: 30 day, Stop date: 09/16/16 9:00:00 CDT No Longer Active 08/17/2016 [facility] Zofran Notes: (Same as: Zofran ) MEDICATION WASTE Product Size: 4 mg Product Wasted: ___ mg No Longer Active 08/17/2016 [facility] Ondansetron Notes: (Same as: Barron cain) MEDICATION WASTE Product Size: 4 mg Product Wasted: ___ mg No Longer Active 08/17/2016 [facility] Hydromorphone Notes: Same as: Dilaudid No Longer Active 08/17/2016 [facility] Flumazenil Notes: (Same as: Ro mazicon) No Longer Active 08/17/2016 [facility] Naloxone Notes: Same as Narcan No Longer Active 08/17/2016 [facility] Hydralazine Notes: (Same as: A presoline) No Longer Active 08/17/2016 [facility] Labetalol 10 mg, 2 mL, Route: IVP, Drug form: INJ, Q5Min, Dosing Weight 120.597, kg, PRN Elevated BP, Start date: 08/17/16 10:16:00 CDT, Duration: 5 doses or times, Stop date: Limited # of times No Longer Active 08/17/2016 [facility] Morphine Notes: (Same as:MORPh ine Sulfate) No Longer Active 08/17/2016 [facility] Levemir Notes: Same as Levemir Do not hold insulin without contacting prescriber WASTE: F/P - Black; E - Municipal Trash Bin "single patient use only" Inactive 08/17/2016 [facility] 24 HR Nifedipine 90 MG Extended Release Tablet Notes: (Same as: Adalat CC,Procardia XL) "Do Not Crush" "Avoid grapefruit and grapefruit juice" No Longer Active 08/17/2016 [facility] sevelamer Notes: Non-Formulary Drug Give Renagel (sevelamer) 1 hour before or 3 hours after other meds "Do Not Crush" (Same as: Renagel) No Longer Active 08/17/2016 [facility] Hydralazine Hydrochloride 100 MG Oral Tablet Notes: (Same as: Apresoline) May interfere w/enteral feedings Take With Food No Longer Active 08/17/2016 [facility] Levemir Notes: Same as Levemir Do not hold insulin without contacting prescriber WASTE: F/P - Black; E - Municipal Trash Bin "single patient use only" Inactive 08/17/2016 [facility] gabapentin 300 MG Oral Capsule Notes: (Same as: Neurontin) No Longer Active 08/17/2016 [facility] Furosemide 20 MG Oral Tablet [Lasix] Notes: (Same as: Lasix) May cause GI upset. Give with food or milk. No Longer Active 08/17/2016 [facility] carvedilol Notes: Give with fo od. (Same As: Coreg) No Longer Active 08/17/2016 [facility] Insulin Glargine Notes: Same a s: Lantus) Do not hold insulin without contacting prescriber WASTE: F/P - Black; E - Municipal Trash Bin Inactive 08/17/2016 [facility] Docusate Notes: (Same as: Cola ce) (Do Not Crush) No Longer Active 08/17/2016 [facility] pantoprazole Notes: For IV pus h reconstitute with 10 ml 0.9% sodium chloride and push over 2 minutes. (Same as: Protonix) Inactive 08/17/2016 [facility] Insulin, Aspart, Human Notes: Roll in palms of hands gently; Do not shake vigorously. (Same as: NovoLOG) "single patient use only" WASTE: F/P - Black; E - Municipal Trash Bin Stable for 28 days at room temperature. Expires in days from Date No Longer Active 08/17/2016 [facility] Acetaminophen 325 MG / Hydrocodone Jeanie trate 7.5 MG Oral Tablet [[place] 7.5/325] Notes: Do not exceed 4gm/day of acetamin ophen. (Same as: [place] 325/7.5) No Longer Active 08/17/2016 [facility] Acetaminophen Notes: Max aceta minophen 4000 mg/day (4 gm/day). (Same as: Tylenol Extra Strength) Inactive 08/17/2016 [facility] Tramadol Notes: Not to exceed 400mg/day. (Same As: Ultram) No Longer Active 08/17/2016 [facility] 72 HR Scopolamine 0.0139 MG/HR Transdermal Patch Notes: Change patch every 72 hours (Same as: Transderm-Scop) No Longer Active 08/17/2016 [facility] Labetalol 20 mg, 4 mL, Route: IVP, Drug form: INJ, ONCE, Dosing Weight 114.545, kg, Start date: 08/17/16 5:27:00 CDT, Stop date: 08/17/16 5:27:00 CDT Inactive 08/17/2016 [facility] Insulin, Aspart, Human Notes: Roll in palms of hands gently; Do not shake vigorously. (Same as: NovoLOG) "single patient use only" WASTE: F/P - Black; E - Municipal Trash Bin Stable for 28 days at room temperature. Expires in days from Date No Longer Active 08/17/2016 [facility] Dextrose 50% Syringe 25 gm, 50 mL, Route: IVP, Drug Form: INJ, Dosing Weight 114.545, kg, PRN, PRN Blood Glucose Results, Start date: 08/17/16 5:22:00 CDT, Duration: 30 day, Stop date: 09/16/16 5:21:00 CDT No Longer Active 08/17/2016 [facility] Glucagon 1 mg, Route: IM, Drug form: PDR/INJ, PRN, Dosing Weight 114.545, kg, PRN Blood Glucose Results, Start date: 08/17/16 5:22:00 CDT, Duration: 30 day, Stop date: 09/16/16 5:21:00 CDT No Longer Active 08/17/2016 [facility] Oxycodone Hydrochloride 5 MG Oral Tablet Notes: (Same as: Roxicodone) Inactive 08/17/2016 [facility] Hydrochlorothiazide Notes: (Sa me as: Hydrodiuril) With food. Inactive 08/17/2016 [facility] Lidocaine Hydrochloride 0.05 MG/MG Trans dermal Patch [Lidoderm] Notes: Apply only once for up to 12 hour s in a 24-hour period (12 hours on and 12 hours off). (Same as: Lidoderm) "Remove old patch before application of new patch" No Longer Active 08/17/2016 [facility] Acetaminophen 100.4 F, Start date: 08/17/16 3:22:00 CDT, Duration: 30 day, Stop date: 09/16/16 3:21:00 CDT Inactive 08/17/2016 [facility] Morphine Notes: (Same as:MORPh ine Sulfate) Inactive 08/17/2016 [facility] sodium chloride 0.9% 1000 ml INJ 1,000 mL 1,000 mL, Rate: 150 ml/hr, Infuse over: 6.7 hr, Route: IV, Dosing Weight 114.545 kg, Total Volume: 1,000, Start date: 08/17/16 2:30:00 CDT, Duration: 30 day, Stop date: 09/16/16 2:29:00 CDT Inactive 08/17/2016 [facility] Sodium Chloride 0.154 MEQ/ML Injectable Solution 100 mL, Rate: 10 ml/hr, Infuse over: 10 hr, Route: IV, Dosing Weight 114.545 kg, Total Volume: 100, Start date: 08/17/16 1:18:00 CDT, Duration: 72 hr, Stop date: 08/20/16 1:17:00 CDT Inactive 08/17/2016 [facility] pantoprazole Notes: For IV pus h reconstitute with 10 ml 0.9% sodium chloride and push over 2 minutes. (Same as: Protonix) Inactive 08/17/2016 [facility] Saline Flush 0.9% Notes: (Same as: BD Posiflush) No Longer Active 08/17/2016 [facility] Reglan Notes: (Same as: Reglan) Inactive 08/17/2016 [facility] Morphine Notes: (Same as:MORPh ine Sulfate) Inactive 08/17/2016 [facility] Zofran Notes: (Same as: Zofran ) MEDICATION WASTE Product Size: 4 mg Product Wasted: _0__ mg Inactive 08/17/2016 [facility] Acetaminophen 325 MG / Hydrocodone Jeanie trate 7.5 MG Oral Tablet [[place] 7.5/325] 1 tab, PO, Q6H, # 28 tab, 0 Refill(s) Active 08/11/2016 [facility] Morphine 4 mg, Route: IVP, ONC E, Dosing Weight 114.545, kg, Priority: STAT, Start date: 08/11/16 4:13:00 CDT, Stop date: 08/11/16 4:13:00 CDT Inactive 08/11/2016 [facility] Acetaminophen 325 MG / Hydrocodone Jeanie trate 5 MG Oral Tablet 1 tab, Route: PO, Drug Form: TAB, Dosing Weight 114.545, kg, ONCE, STAT, Start date: 08/11/16 4:13:00 CDT, Stop date: 08/11/16 4:13:00 CDT Inactive 08/11/2016 [facility] Morphine 4 mg, Route: IVP, ONC E, Dosing Weight 114.545, kg, Priority: STAT, Start date: 08/11/16 2:58:00 CDT, Stop date: 08/11/16 2:58:00 CDT Inactive 08/11/2016 [facility] ketOROLAC 15 mg/mL injectable solution 4 days. Inactive 08/11/2016 [facility] Isolyte S PH-7.4 (Bolus) IV No rosie: (Same as: Isolyte S PH 7.4) Inactive 08/11/2016 [facility] Morphine Notes: (Same as:MORPh ine Sulfate) Inactive 08/11/2016 [facility] Ondansetron Notes: (Same as: Barron cain) MEDICATION WASTE Product Size: 4 mg Product Wasted: ___ mg Inactive 08/11/2016 [facility] Acetaminophen 300 MG / Codeine Phosphate 30 MG Oral Tablet [Tylenol with Codeine #3] 1 tab, PO, Q4H, PRN Pain, X 7 day, # 42 tab, 0 Refill(s) Active 08/08/2016 [facility] carvedilol 25 mg oral tablet 2 5 mg = 1 tab, PO, Q12H, # 60 tab, 0 Refill(s) Active 08/08/2016 [facility] Furosemide 20 MG Oral Tablet [Lasix] 20 mg = 1 tab, PO, BID, # 60 tab, 0 Refill(s) Active 08/08/2016 [facility] Labetalol 10 mg, 2 mL, Route: IV, Drug form: INJ, ONCE, Dosing Weight 114.545, kg, Start date: 08/08/16 2:20:00 CDT, Stop date: 08/08/16 2:20:00 CDT Inactive 08/08/2016 [facility] Labetalol 10 mg, 2 mL, Route: IV, Drug form: INJ, ONCE, Dosing Weight 114.545, kg, Start date: 08/08/16 1:41:00 CDT, Stop date: 08/08/16 1:41:00 CDT Inactive 08/08/2016 [facility] Morphine Notes: (Same as:MORPh ine Sulfate) Inactive 08/08/2016 [facility] Morphine Notes: (Same as:MORPh ine Sulfate) Inactive 08/08/2016 [facility] Benadryl Notes: (Same as: Sandra dryl) Inactive 08/08/2016 [facility] Reglan Notes: (Same as: Reglan) Inactive 08/08/2016 [facility] Sodium Chloride 0.154 MEQ/ML Injectable Solution 1,000 mL, 1000 ml/hr, Infuse Over: 1 hr, Route: IV, 1,000, Drug form: INJ, ONCE, Priority: STAT, Dosing Weight 114.545 kg, Start date: 08/08/16 0:01:00 CDT, Duration: 1 doses or times, Stop date: 08/08/16 0:01:00 CDT Inactive 08/08/2016 [facility] carvedilol 25 mg oral tablet 2 5 mg = 1 tab, PO, BID, # 180 tab, 1 Refill(s) Active 08/06/2016 [facility] Diazepam 5 MG Oral Tablet [Valium] 5 mg = 1 tab, PO, QID, PRN Anxiety, X 7 day, # 28 tab, 0 Refill(s) Active 08/06/2016 [facility] Acetaminophen 300 MG / Codeine Phosphate 15 MG Oral Tablet 1 tab, PO, Q4H, PRN Pain, X 7 day, # 42 tab, 0 Refill(s) Active 08/06/2016 [facility] Valium Notes: (Same as: Valium ) WASTE: F/P - Black; E - White/Blue Inactive 08/06/2016 [facility] Labetalol 10 mg, 2 mL, Route: IVP, Drug form: INJ, ONCE, Dosing Weight 114.545, kg, Start date: 08/06/16 5:31:00 CDT, Stop date: 08/06/16 5:31:00 CDT Inactive 08/06/2016 [facility] Morphine 4 mg, Route: IVP, ONC E, Dosing Weight 114.545, kg, Priority: STAT, Start date: 08/06/16 4:42:00 CDT, Stop date: 08/06/16 4:42:00 CDT Inactive 08/06/2016 [facility] Sodium Chloride 0.154 MEQ/ML Injectable Solution 1,000 mL, 1,000 ml/hr, Infuse Over: 1 hr, Route: IV, ONCE, Priority: STAT, Dosing Weight 114.545 kg, Start date: 08/06/16 4:38:00 CDT, Duration: 1 doses or times, Stop date: 08/06/16 4:38:00 CDT Inactive 08/06/2016 [facility] Morphine Notes: (Same as:MORPh ine Sulfate) Inactive 08/06/2016 [facility] Valium Notes: (Same as: Valium ) WASTE: F/P - Black; E - White/Blue Inactive 08/06/2016 [facility] Fentanyl Notes: (Same as: Subl imaze) Preservative free. No Longer Active 08/03/2016 [facility] Reglan Notes: (Same as: Reglan) No Longer Active 08/03/2016 [facility] tramadol hydrochloride 50 MG Oral Tablet Notes: Not to exceed 400mg/day. (Same As: Ultram) No Longer Active 08/03/2016 [facility] carvedilol 25 mg, 1 tab, Route : PO, Drug form: TAB, ONCE, Dosing Weight 114.545, kg, Start date: 08/02/16 21:14:00 CDT, Stop date: 08/02/16 21:14:00 CDT Inactive 08/03/2016 [facility] 24 HR Nifedipine 90 MG Extended Release Tablet 90 mg, 1 tab, Route: PO, Drug form: ERTAB, ONCE, Dosing Weight 114.545, kg, Start date: 08/02/16 21:13:00 CDT, Stop date: 08/02/16 21:13:00 CDT Inactive 08/03/2016 [facility] Hydralazine Hydrochloride 100 MG Oral Tablet Notes: (Same as: Apresoline) May interfere w/enteral feedings Take With Food Inactive 08/03/2016 [facility] Morphine 4 mg, Route: IVP, ONC E, Dosing Weight 114.545, kg, Priority: STAT, Start date: 08/02/16 19:56:00 CDT, Stop date: 08/02/16 19:56:00 CDT Inactive 08/03/2016 [facility] Dilaudid 0.5 mg, Route: IVP, O NCE, Dosing Weight 114.545, kg, Priority: STAT, Start date: 08/02/16 18:27:00 CDT, Stop date: 08/02/16 18:27:00 CDT Inactive 08/02/2016 [facility] Hydralazine 10 mg, Route: IV, ONCE, Dosing Weight 114.545, kg, Start date: 08/02/16 18:03:00 CDT, Stop date: 08/02/16 18:03:00 CDT Inactive 08/02/2016 [facility] Metoprolol 5 mg, Route: IVP, D rug form: INJ, ONCE, Dosing Weight 114.545, kg, Priority: STAT, Start date: 08/02/16 17:35:00 CDT, Stop date: 08/02/16 17:35:00 CDT Inactive 08/02/2016 [facility] Hydralazine Notes: (Same as: A presoline) Push over 5 minutes Inactive 08/02/2016 [facility] Haldol 2.5 mg, Route: IV, ONCE , Dosing Weight 114.545, kg, Start date: 08/02/16 17:20:00 CDT, Stop date: 08/02/16 17:20:00 CDT Inactive 08/02/2016 [facility] Metoprolol 5 mg, Route: IVP, D rug form: INJ, ONCE, Dosing Weight 114.545, kg, Priority: STAT, Start date: 08/02/16 17:19:00 CDT, Stop date: 08/02/16 17:19:00 CDT Inactive 08/02/2016 [facility] Fentanyl 50 microgram, Route: IVP, ONCE, Dosing Weight 114.545, kg, Priority: STAT, Start date: 08/02/16 17:04:00 CDT, Stop date: 08/02/16 17:04:00 CDT Inactive 08/02/2016 [facility] Haldol 5 mg, Route: IM, ONCE, Dosing Weight 114.545, kg, Priority: STAT, Start date: 08/02/16 16:26:00 CDT, Stop date: 08/02/16 16:26:00 CDT Inactive 08/02/2016 [facility] Fentanyl Notes: (Same as: Subl imaze) Preservative free. Inactive 08/02/2016 [facility] carvedilol 25 mg, Route: IV, O NCE, Dosing Weight 114.545, kg, Start date: 08/02/16 15:59:00 CDT, Stop date: 08/02/16 15:59:00 CDT Inactive 08/02/2016 [facility] Hydralazine Notes: (Same as: A presoline) Inactive 08/02/2016 [facility] Sodium Chloride 0.154 MEQ/ML Injectable Solution 1,000 mL, 1000 ml/hr, Infuse Over: 1 hr, Route: IV, 1,000, Drug form: INJ, ONCE, Priority: STAT, Dosing Weight 114.545 kg, Start date: 08/02/16 15:07:00 CDT, Duration: 1 doses or times, Stop date: 08/02/16 15:07:00 CDT Inactive 08/02/2016 [facility] Ondansetron Notes: (Same as: Barron cain) MEDICATION WASTE Product Size: 4 mg Product Wasted: ___ mg Inactive 08/02/2016 [facility] Morphine Notes: (Same as:MORPh ine Sulfate) Inactive 08/02/2016 [facility] Acetaminophen 300 MG / Codeine Phosphate 30 MG Oral Tablet [Tylenol with Codeine #3] 1 tab, PO, Q6H, PRN Pain, X 7 day, # 28 tab, 0 Refill(s) Active 07/27/2016 [facility] Ibuprofen 800 mg, Route: PO, D rug form: TAB, ONCE, Dosing Weight 114.545, kg, Priority: STAT, Start date: 07/27/16 16:52:00 CDT, Stop date: 07/27/16 16:52:00 CDT Inactive 07/27/2016 [facility] Sodium Chloride 0.154 MEQ/ML Injectable Solution 1,000 mL, 1,000 ml/hr, Infuse Over: 1 hr, Route: IV, 1,000, Drug form: INJ, ONCE, Priority: STAT, Dosing Weight 114.545 kg, Start date: 07/27/16 9:28:00 CDT, Duration: 1 doses or times, Stop date: 07/27/16 9:28:00 CDT Inactive 07/27/2016 [facility] Valium Notes: (Same as: Valium ) WASTE: F/P - Black; E - White/Blue Inactive 07/27/2016 [facility] Morphine Notes: (Same as:MORPh ine Sulfate) Inactive 07/27/2016 [facility] Morphine 4 mg, Route: IVP, ONC E, Dosing Weight 114.545, kg, Priority: STAT, Start date: 07/27/16 8:57:00 CDT, Stop date: 07/27/16 8:57:00 CDT Inactive 07/27/2016 [facility] Zofran Notes: (Same as: Luis ) MEDICATION WASTE Product Size: 4 mg Product Wasted: ___ mg Inactive 07/27/2016 [facility] ketOROLAC 30 mg/mL injectable solution 15 mg, Route: IVP, Drug form: INJ, ONCE, Dosing Weight 114.545, kg, Priority: STAT, Start date: 07/27/16 8:45:00 CDT, Stop date: 07/27/16 8:45:00 CDT Inactive 07/27/2016 [facility] Ondansetron 4 MG Disintegrating Tablet [Zofran] 4 mg = 1 tab, PO, TID, Dissolve tab under tongue, X 1 day, # 3 tab, 0 Refill(s) No Longer Active 07/27/2016 [facility] Nitrofurantoin 100 MG Oral Capsule [Macrodantin] 100 mg = 1 cap, PO, QID, X 7 day, # 28 cap, 0 Refill(s) Active 07/27/2016 [facility] Sodium Chloride 0.154 MEQ/ML Injectable Solution 1,000 mL, Infuse Over: 1 hr, Route: IV, ONCE, Priority: STAT, Dosing Weight 118.182 kg, Start date: 07/27/16 5:07:00 CDT, Duration: 1 doses or times, Stop date: 07/27/16 5:07:00 CDT Inactive 07/27/2016 [facility] Morphine 4 mg, Route: IVP, ONC E, Dosing Weight 118.182, kg, Priority: STAT, Start date: 07/27/16 5:07:00 CDT, Stop date: 07/27/16 5:07:00 CDT Inactive 07/27/2016 [facility] Acetaminophen 325 MG / Hydrocodone Jeanie trate 5 MG Oral Tablet Notes: (Same as: [place] 325/5) Do not ex ceed 4gm/day of acetaminophen. Inactive 07/27/2016 [facility] Nitrofurantoin 100 MG Oral Capsule [Macrobid] 100 mg = 1 cap, PO, BID, X 7 day, # 14 cap, 0 Refill(s) Active 07/23/2016 [facility] Zofran Notes: (Same as: Luis ) MEDICATION WASTE Product Size: 4 mg Product Wasted: ___ mg Inactive 07/23/2016 [facility] Morphine Notes: (Same as:MORPh ine Sulfate) Inactive 07/23/2016 [facility] sodium chloride 0.9% 1000 ml INJ 1,000 mL 1,000 mL, Rate: 1,000 ml/hr, Infuse over: 1 hr, Route: IV, Dosing Weight 114.091 kg, Total Volume: 1,000, Start date: 07/23/16 1:34:00 CDT, Duration: 30 day, Stop date: 08/22/16 1:33:00 CDT Inactive 07/23/2016 [facility] Hydralazine Notes: (Same as: A presoline) Push over 5 minutes Inactive 07/23/2016 [facility] carvedilol Notes: Give with fo od. (Same As: Coreg) Inactive 07/23/2016 [facility] Hydralazine Hydrochloride 100 MG Oral Tablet 100 mg = 1 tab, PO, TID, # 90 tab, 0 Refill(s) Active 07/17/2016 [facility] gabapentin 300 MG Oral Capsule 300 mg = 1 cap, PO, Q12H, # 60 cap, 0 Refill(s) Active 07/17/2016 [facility] Furosemide 20 MG Oral Tablet [Lasix] 20 mg = 1 tab, PO, BID, # 30 tab, 1 Refill(s) Active 07/17/2016 [facility] carvedilol 25 mg oral tablet 2 5 mg = 1 tab, PO, Q12H, # 60 tab, 3 Refill(s) Active 07/17/2016 [facility] atorvastatin 40 mg oral tablet 40 mg = 1 tab, PO, Bedtime, # 90 tab, 0 Refill(s) Active 07/17/2016 [facility] 24 HR Nifedipine 90 MG Extended Release Tablet 90 mg = 1 tab, PO, Daily, # 30 tab, 1 Refill(s) Active 07/17/2016 [facility] 24 HR Nifedipine 90 MG Extended Release Tablet Notes: (Same as: Adalat CC,Procardia XL) "Do Not Crush" "Avoid grapefruit and grapefruit juice" Inactive 07/17/2016 [facility] Lasix 60 mg, Route: PO, Daily, Dosing Weight 116.636, kg, Start date: 07/17/16 9:00:00 CDT, Duration: 30 day, Stop date: 08/15/16 9:00:00 CDT No Longer Active 07/17/2016 [facility] Benadryl Notes: (Same as: Sandra dryl) Inactive 07/17/2016 [facility] Reglan Notes: (Same as: Reglan) Inactive 07/17/2016 [facility] Magnesium Sulfate Notes: WASTE : F/P - Sink; E - Municipal Trash Bin Inactive 07/17/2016 [facility] atorvastatin Notes: (Same as: Lipitor) No Longer Active 07/17/2016 [facility] Zofran Notes: (Same as: Zofran ) MEDICATION WASTE Product Size: 4 mg Product Wasted: 0 mg No Longer Active 07/16/2016 [facility] 24 HR Nifedipine 30 MG Extended Release Tablet Notes: (Same as: Adalat CC, Procardia XL) Give on empty stomach. Take 1 hour before or 2 hours after meal; "Avoid grapefruit and grapefruit juice". Do not crush Inactive 07/16/2016 [facility] Lasix Notes: (Same as: Lasix) May cause GI upset. Give with food or milk. No Longer Active 07/16/2016 [facility] tramadol hydrochloride 50 MG Oral Tablet Notes: Not to exceed 400mg/day. (Same As: Ultram) No Longer Active 07/16/2016 [facility] Sodium Bicarbonate 650 MG Oral Tablet Notes: "Dissolve tablet in a glass of water prior to oral administration. STOMACH WARNING: To avoid serious injury, do not take until tablet is completely dissolved. It is very important not to take this product when overly full from food or drink." No Longer Active 07/16/2016 [facility] sevelamer Notes: Same as: Molly melara No Longer Active 07/16/2016 [facility] 24 HR Nifedipine 60 MG Extended Release Tablet Notes: (Same as: Adalat CC, Procardia XL) Give on empty stomach. Take 1 hour before or 2 hours after meal; "Avoid grapefruit and grapefruit juice". Do not crush Inactive 07/16/2016 [facility] Hydralazine Hydrochloride 100 MG Oral Tablet Notes: (Same as: Apresoline) May interfere w/enteral feedings Take With Food No Longer Active 07/16/2016 [facility] Levemir Notes: Same as Levemir Do not hold insulin without contacting prescriber WASTE: F/P - Black; E - Municipal Trash Bin "single patient use only" No Longer Active 07/16/2016 [facility] gabapentin 300 MG Oral Capsule Notes: (Same as: Neurontin) No Longer Active 07/16/2016 [facility] carvedilol Notes: Give with fo od. (Same As: Coreg) No Longer Active 07/16/2016 [facility] heparin 5,000 unit, Route: SUB -Q, Q8H, Dosing Weight 116.636, kg, Start date: 07/16/16 8:00:00 CDT, Duration: 30 day, Stop date: 08/15/16 0:00:00 CDT Inactive 07/16/2016 [facility] Tylenol Notes: Do not exceed 4 gm/day. (Same as: Tylenol) No Longer Active 07/16/2016 [facility] Dextrose 50% Syringe 25 gm, Ro ramona: IVP, Dosing Weight 116.636, kg, ONCE, Start date: 07/16/16 7:02:00 CDT, Stop date: 07/16/16 7:02:00 CDT Inactive 07/16/2016 [facility] Insulin regular 5 unit, Route: IVP, ONCE, Dosing Weight 116.636, kg, Start date: 07/16/16 7:02:00 CDT, Stop date: 07/16/16 7:02:00 CDT Inactive 07/16/2016 [facility] Insulin, Aspart, Human Notes: Roll in palms of hands gently; Do not shake vigorously. (Same as: NovoLOG) "single patient use only" WASTE: F/P - Black; E - Municipal Trash Bin Stable for 28 days at room temperature. Expires in days from Date No Longer Active 07/16/2016 [facility] Dextrose 50% Syringe 25 gm, 50 mL, Route: IVP, Drug Form: INJ, Dosing Weight 116.636, kg, PRN, PRN Blood Glucose Results, Start date: 07/16/16 2:26:00 CDT, Duration: 30 day, Stop date: 08/15/16 2:25:00 CDT No Longer Active 07/16/2016 [facility] Glucagon 1 mg, Route: IM, Drug form: PDR/INJ, PRN, Dosing Weight 116.636, kg, PRN Blood Glucose Results, Start date: 07/16/16 2:26:00 CDT, Duration: 30 day, Stop date: 08/15/16 2:25:00 CDT No Longer Active 07/16/2016 [facility] Lasix Notes: (Same as: Lasix) MEDICATION WASTE Product Size: 40 mg Product Wasted: ___ mg Inactive 07/16/2016 [facility] Morphine 4 mg, Route: IVP, Mal g form: INJ, ONCE, Dosing Weight 114.091, kg, Priority: STAT, Start date: 07/15/16 23:57:00 CDT, Stop date: 07/15/16 23:57:00 CDT No Longer Active 07/16/2016 [facility] Nifedical XL 60 mg, Route: PO, ONCE, Dosing Weight 114.091, kg, Start date: 07/15/16 20:50:00 CDT, Stop date: 07/15/16 20:50:00 CDT Inactive 07/16/2016 [facility] Morphine 4 mg, Route: IVP, Mal g form: INJ, ONCE, Dosing Weight 114.091, kg, Priority: STAT, Start date: 07/15/16 19:56:00 CDT, Stop date: 07/15/16 19:56:00 CDT Inactive 07/16/2016 [facility] carvedilol 25 mg, Route: PO, O NCE, Dosing Weight 114.091, kg, Start date: 07/15/16 19:39:00 CDT, Stop date: 07/15/16 19:39:00 CDT Inactive 07/16/2016 [facility] Hydralazine Hydrochloride 25 MG Oral Tablet 100 mg, Route: PO, Drug form: TAB, ONCE, Dosing Weight 114.091, kg, Start date: 07/15/16 17:42:00 CDT, Stop date: 07/15/16 17:42:00 CDT Inactive 07/15/2016 [facility] Hydralazine Hydrochloride 100 MG Oral Tablet 100 mg, 1 tab, Route: PO, ONCE, Dosing Weight 114.091, kg, Start date: 07/15/16 17:14:00 CDT, Stop date: 07/15/16 17:14:00 CDT Inactive 07/15/2016 [facility] Magnesium Oxide 800 mg, Route: PO, ONCE, Dosing Weight 114.091, kg, Start date: 07/15/16 16:56:00 CDT, Stop date: 07/15/16 16:56:00 CDT Inactive 07/15/2016 [facility] Morphine 4 mg, Route: IVP, ONC E, Dosing Weight 114.091, kg, Priority: STAT, Start date: 07/15/16 16:16:00 CDT, Stop date: 07/15/16 16:16:00 CDT Inactive 07/15/2016 [facility] Dilaudid 1 mg, Route: IVP, ONC E, Dosing Weight 114.091, kg, Priority: STAT, Start date: 07/15/16 15:59:00 CDT, Stop date: 07/15/16 15:59:00 CDT Inactive 07/15/2016 [facility] Zofran 4 mg, Route: IVP, Drug form: INJ, ONCE, Dosing Weight 114.091, kg, Priority: STAT, Start date: 07/15/16 15:52:00 CDT, Stop date: 07/15/16 15:52:00 CDT Inactive 07/15/2016 [facility] Morphine 4 mg, Route: IVP, Mal g form: INJ, ONCE, Dosing Weight 114.091, kg, Priority: STAT, Start date: 07/15/16 15:52:00 CDT, Stop date: 07/15/16 15:52:00 CDT Inactive 07/15/2016 [facility] dronabinol 5 mg oral capsule 5 mg = 1 cap, PO, [id number], X 7 day, # 14 cap, 0 Refill(s) Active 07/07/2016 [facility] Acetaminophen 325 MG / Hydrocodone Jeanie trate 10 MG Oral Tablet [[place] 10/325] 2 tab, PO, Q6H, PRN Pain Score 7-10, X 3 day, # 24 tab, 0 Refill(s) Active 07/07/2016 [facility] Lidocaine Hydrochloride 0.05 MG/MG Trans dermal Patch [Lidoderm] 1 patch, TOP, Q24H, # 14 patch, 0 Refill (s), Pharmacy: [facility] [id number] Active 07/07/2016 [facility] methocarbamol 500 mg oral tablet 1,000 mg = 2 tab, PO, TID, PRN Muscle Spasms, X 5 day, # 30 tab, 0 Refill(s), Pharmacy: [facility] [id number] Active 07/07/2016 [facility] 24 HR Nifedipine 60 MG Extended Release Tablet 60 mg = 1 tab, PO, Daily, # 30 tab, 0 Refill(s), Pharmacy: [facility] [id number] Active 07/07/2016 [facility] sevelamer carbonate 800 mg oral tablet 0.8 gm = 1 tab, PO, Daily, , # 30 tab, 0 Refill(s), Pharmacy: [facility] [id number] Active 07/07/2016 [facility] Sodium Bicarbonate 650 MG Oral Tablet 1,950 mg = 3 tab, PO, BID, X 10 day, # 60 tab, 0 Refill(s), Pharmacy: [facility] [id number] Active 07/07/2016 [facility] sodium polystyrene sulfonate 15 g/60 mL oral and rectal suspension 15 gm = 60 mL, PO, TID, X 14 day, # 2520 mL, 0 Refill(s), Pharmacy: [facility] [id number] Active 07/07/2016 [facility] tramadol hydrochloride 50 MG Oral Tablet 50 mg = 1 tab, PO, Q6Hnow, PRN Pain Score 1-3, X 5 day, # 20 tab, 0 Refill(s) Active 07/07/2016 [facility] Nifedical XL Notes: (Same as: Adalat CC, Procardia XL) Give on empty stomach. Take 1 hour before or 2 hours after meal; "Avoid grapefruit and grapefruit juice". Do not crush Inactive 07/07/2016 [facility] Methadone Notes: (Same as: Dol ophine) No Longer Active 07/07/2016 [facility] Kayexalate Notes: (sodium poly styrene sulfonate 15 gm/60 ml STEPHANIE) Shake well before use. (Same as: Kayexalate, SPS) No Longer Active 07/06/2016 [facility] Renvela Notes: Same as: Renvela No Longer Active 07/06/2016 [facility] Phenergan Notes: Do not give I V push. (Same as: Phenergan) No Longer Active 07/05/2016 [facility] Sodium Bicarbonate Notes: "Dis solve tablet in a glass of water prior to oral administration. STOMACH WARNING: To avoid serious injury, do not take until tablet is completely dissolved. It is very important not to t desirae this product when overly full from food or drink." No Longer Active 07/05/2016 [facility] Renvela Notes: Same as: Renvela Inactive 07/05/2016 [facility] Kayexalate Notes: (sodium poly styrene sulfonate 15 gm/60 ml STEPHANIE) Shake well before use. (Same as: Kayexalate, SPS) No Longer Active 07/05/2016 [facility] Nifedical XL Notes: (Same as: Adalat CC, Procardia XL) Give on empty stomach. Take 1 hour before or 2 hours after meal; "Avoid grapefruit and grapefruit juice". Do not crush No Longer Active 07/05/2016 [facility] Dilaudid Notes: Same as: Dilau did Inactive 07/05/2016 [facility] Kayexalate Notes: (sodium poly styrene sulfonate 15 gm/60 ml STEPHANIE) Shake well before use. (Same as: Kayexalate, SPS) Inactive 07/05/2016 [facility] Tetrahydrocannabinol Notes: (S torie as: Marinol) Non- Formulary Drug. No Longer Active 07/04/2016 [facility] Acetaminophen 325 MG / Hydrocodone Jeanie trate 10 MG Oral Tablet [[place] 10/325] Notes: Do not exceed 4gm/day of acetamin ophen. (Same as: [place] 325/10) No Longer Active 07/04/2016 [facility] Hydralazine Notes: (Same as: A presoline) Push over 5 minutes No Longer Active 07/04/2016 [facility] PHOS-NaK oral powder for reconstitution 1 pkt, Route: PO, Dosing Weight 112, kg, QID, Start date: 07/03/16 17:00:00 CDT, Duration: 30 day, Stop date: 08/02/16 13:00:00 CDT Inactive 07/03/2016 [facility] Lasix Notes: (Same as: Lasix) Inactive 07/03/2016 [facility] Dilaudid Notes: Same as: Dilau did No Longer Active 07/03/2016 [facility] Oxycodone Hydrochloride 5 MG Oral Tablet Notes: (Same as: Roxicodone) No Longer Active 07/03/2016 [facility] Dulcolax Laxative Notes: (Same As: Dulcolax, Bisco-Lax) Inactive 07/03/2016 [facility] Kayexalate Notes: (sodium poly styrene sulfonate 15 gm/60 ml STEPHANIE) Shake well before use. (Same as: Kayexalate, SPS) Inactive 07/03/2016 [facility] sodium chloride 0.9% INJ 250 mL 250 mL, Rate: house calls nurse for use with blood product administration, Dosing Weight 112, kg, Route: IV, Total Volume: 250, Start Date: 07/02/16 18:38:00 IMMUNOLOGY SPECIALIST, Duration: 30 day, Stop date: 08/01/16 18:37:00 CDT, Replace Every: 24 hr No Longer Active 07/03/2016 [facility] Methadone Notes: (Same as: Dol ophine) No Longer Active 07/02/2016 [facility] Dilaudid Notes: Same as: Dilau did No Longer Active 07/02/2016 [facility] Dilaudid Notes: Same as: Dilau did Inactive 07/02/2016 [facility] Dilaudid Notes: Same as: Dilau did Inactive 07/02/2016 [facility] Sodium Bicarbonate Notes: "Dis solve tablet in a glass of water prior to oral administration. STOMACH WARNING: To avoid serious injury, do not take until tablet is completely dissolved. It is very important not to t desirae this product when overly full from food or drink." No Longer Active 07/02/2016 [facility] Acetaminophen Notes: Max aceta minophen 4000 mg/day (4 gm/day). (Same as: Tylenol Extra Strength) No Longer Active 07/02/2016 [facility] Insulin regular 10 unit, Route : IVP, ONCE, Dosing Weight 112, kg, Priority: STAT, Start date: 07/01/16 17:20:00 IMMUNOLOGY SPECIALIST, Stop date: 07/01/16 17:20:00 IMMUNOLOGY SPECIALIST Inactive 07/01/2016 [facility] Calcium Gluconate 1 gm, Route: IVPB, ONCE, Dosing Weight 112, kg, Priority: STAT, Start date: 07/01/16 17:20:00 IMMUNOLOGY SPECIALIST, Stop date: 07/01/16 17:20:00 IMMUNOLOGY SPECIALIST Inactive 07/01/2016 [facility] Dextrose 50% Syringe 50 mL, Ro ramona: IVP, Dosing Weight 112, kg, ONCE, STAT, Start date: 07/01/16 17:20:00 IMMUNOLOGY SPECIALIST, Stop date: 07/01/16 17:20:00 IMMUNOLOGY SPECIALIST Inactive 07/01/2016 [facility] Kayexalate Notes: (sodium poly styrene sulfonate 7.5 gm/30 ml STEPHANIE) (Same as: Kayexalate, SPS) Shake well before use Inactive 07/01/2016 [facility] sodium chloride 0.9% 1000 ml INJ 1,000 mL 1,000 mL, Rate: 125 ml/hr, Infuse over: 8 hr, Route: IV, Dosing Weight 112 kg, Total Volume: 1,000, Start date: 07/01/16 16:43:00 IMMUNOLOGY SPECIALIST, Stop date: 07/03/16 16:00:00 CDT No Longer Active 07/01/2016 [facility] Ancef + sodium chloride 0.9% INJ 100 mL Notes: (Same As: Evelyne Demarco) MEDICATION WASTE Product Size: 1000 mg Product Wasted: ___ mg No Longer Active 07/01/2016 [facility] ropivacaine Notes: Same as: Na ropin No Longer Active 06/30/2016 [facility] Naloxone Notes: Same as Narcan Inactive 06/30/2016 [facility] Flumazenil Notes: (Same as: Francesca mazicon) Inactive 06/30/2016 [facility] Hydromorphone Notes: Same as: Dilaudid Inactive 06/30/2016 [facility] Ondansetron Notes: (Same as: Barron cain) MEDICATION WASTE Product Size: 4 mg Product Wasted: ___ mg Inactive 06/30/2016 [facility] Oxycodone Notes: (Same as: Renny xicodone) Inactive 06/30/2016 [facility] Ancef 2 gm, Route: IVPB, ONCE, Dosing Weight 112, kg, Start date: 06/30/16 10:44:00 IMMUNOLOGY SPECIALIST, Duration: 1 doses or times, Stop date: 06/30/16 10:44:00 IMMUNOLOGY SPECIALIST, Surgical Prophylaxis Only; For patients < 120 kg Inactive 06/30/2016 [facility] atorvastatin Notes: (Same as: Lipitor) No Longer Active 06/29/2016 [facility] sennosides, DETENTION Notes: (Same a s: Senokot) No Longer Active 06/29/2016 [facility] remove patch Notes: Remove pat ch 12 hours after application each day. No Longe r Active 06/28/2016 [facility] Methocarbamol Notes: (Same as: Robaxin) No Longer Active 06/28/2016 [facility] Hydralazine Hydrochloride 100 MG Oral Tablet Notes: (Same as: Apresoline) May interfere w/enteral feedings Take With Food No Longer Active 06/28/2016 [facility] Levemir Notes: Same as Levemir Do not hold insulin without contacting prescriber WASTE: F/P - Black; E - Municipal Trash Bin "single patient use only" No Longer Active 06/28/2016 [facility] gabapentin 300 MG Oral Capsule Notes: (Same as: Neurontin) No Longer Active 06/28/2016 [facility] Furosemide 20 MG Oral Tablet [Lasix] Notes: (Same as: Lasix) May cause GI upset. Give with food or milk. No Longer Active 06/28/2016 [facility] carvedilol Notes: Give with fo od. (Same As: Coreg) No Longer Active 06/28/2016 [facility] Amlodipine Notes: (Same as: No rvasc) No Longer Active 06/28/2016 [facility] aspirin 81 mg tablet, enteric coated Notes: Do not crush or chew. (Same As: Ecotrin) N o Longer Active 06/28/2016 [facility] Docusate Notes: (Same as: Cola ce) (Do Not Crush) No Longer Active 06/28/2016 [facility] heparin Notes: porcine heparin No Longer Active 06/28/2016 [facility] sodium chloride 0.9% 1000 ml INJ 1,000 mL 1,000 mL, Rate: 75 ml/hr, Infuse over: 13.3 hr, Route: IV, Dosing Weight 112 kg, Total Volume: 1,000, Start date: 06/28/16 6:08:00 IMMUNOLOGY SPECIALIST, Duration: 30 day, Stop date: 07/28/16 6:07:00 CDT No Longer Active 06/28/2016 [facility] Kayexalate Notes: (sodium poly styrene sulfonate 15 gm/60 ml STEPHANIE) Shake well before use. (Same as: Kayexalate, SPS) Inactive 06/28/2016 [facility] Tramadol Notes: Not to exceed 400mg/day. (Same As: Ultram) No Longer Active 06/28/2016 [facility] Lidocaine Hydrochloride 0.05 MG/MG Trans dermal Patch [Lidoderm] Notes: Apply only once for up to 12 hour s in a 24-hour period (12 hours on and 12 hours off). (Same as: Lidoderm) "Remove old patch before application of new patch" No Longer Active 06/28/2016 [facility] Acetaminophen Notes: Infuse ov er 15 minutes Do not exceed 4gm/day of acetaminophen MEDICATION WASTE Product Size: 1000 mg Product Wasted: ___ mg No Longer Active 06/28/2016 [facility] Glucagon 1 mg, Route: IM, Drug form: PDR/INJ, PRN, Dosing Weight 112.727, kg, PRN Blood Glucose Results, Start date: 06/28/16 2:39:00 IMMUNOLOGY SPECIALIST, Duration: 30 day, Stop date: 07/28/16 3:38:00 CDT No Longer Active 06/28/2016 [facility] Dextrose 50% Syringe 25 gm, 50 mL, Route: IVP, Drug Form: INJ, Dosing Weight 112.727, kg, PRN, PRN Blood Glucose Results, Start date: 06/28/16 2:39:00 IMMUNOLOGY SPECIALIST, Duration: 30 day, Stop date: 07/28/16 3:38:00 CDT No Longer Active 06/28/2016 [facility] Insulin, Aspart, Human Notes: Roll in palms of hands gently; Do not shake vigorously. (Same as: NovoLOG) "single patient use only" WASTE: F/P - Black; E - Municipal Trash Bin Stable for 28 days at room temperature. Expires in days from Date No Longer Active 06/28/2016 [facility] Alprazolam 0.25 MG Oral Tablet Notes: With food or milk (Same as: Xanax) No Longer Active 06/28/2016 [facility] Morphine Notes: (Same as:MORPh ine Sulfate) No Longer Active 06/28/2016 [facility] Oxycodone Hydrochloride 5 MG Oral Tablet Notes: (Same as: Roxicodone) No Longer Active 06/28/2016 [facility] Ondansetron Notes: (Same as: Barron cain) MEDICATION WASTE Product Size: 4 mg Product Wasted: ___ mg No Longer Active 06/28/2016 [facility] Sodium Chloride 0.154 MEQ/ML Injectable Solution 1,000 mL, 1000 ml/hr, Infuse Over: 1 hr, Route: IV, 1,000, Drug form: INJ, ONCE, Priority: STAT, Dosing Weight 112.727 kg, Start date: 06/28/16 2:00:00 IMMUNOLOGY SPECIALIST, Duration: 1 doses or times, Stop date: 06/28/16 2:00:00 IMMUNOLOGY SPECIALIST Inactive 06/28/2016 [facility] Hydralazine 10 mg, Route: IVP, ONCE, Dosing Weight 112.727, kg, Start date: 06/28/16 1:39:00 IMMUNOLOGY SPECIALIST, Stop date: 06/28/16 1:39:00 IMMUNOLOGY SPECIALIST Inactive 06/28/2016 [facility] Hydralazine 20 mg, Route: IVP, ONCE, Dosing Weight 112.727, kg, Start date: 06/28/16 1:37:00 IMMUNOLOGY SPECIALIST, Stop date: 06/28/16 1:37:00 IMMUNOLOGY SPECIALIST Inactive 06/28/2016 [facility] Morphine Notes: (Same as:MORPh ine Sulfate) No Longer Active 06/28/2016 [facility] Sodium Chloride 0.154 MEQ/ML Injectable Solution 1,000 mL, 1000 ml/hr, Infuse Over: 1 hr, Route: IV, 1,000, Drug form: INJ, ONCE, Priority: STAT, Dosing Weight 112.727 kg, Start date: 06/27/16 23:33:00 IMMUNOLOGY SPECIALIST, Duration: 1 doses or times, Stop date: 06/27/16 23:33:00 IMMUNOLOGY SPECIALIST No Longer Active 06/28/2016 [facility] Ondansetron Notes: (Same as: Barron cain) MEDICATION WASTE Product Size: 4 mg Product Wasted: ___ mg No Longer Active 06/28/2016 [facility] Hydromorphone 1 mg, Route: IVP , ONCE, Dosing Weight 112.727, kg, Priority: STAT, Start date: 06/27/16 23:33:00 IMMUNOLOGY SPECIALIST, Stop date: 06/27/16 23:33:00 IMMUNOLOGY SPECIALIST Inactive 06/28/2016 [facility] Hydralazine Hydrochloride 100 MG Oral Tablet 100 mg = 1 tab, PO, TID, # 90 tab, 0 Refill(s), Pharmacy: [facility] [id number] Active 06/23/2016 [facility] senna 8.6 mg oral tablet Notes : (Same as: Senokot) No Longer Active 06/23/2016 [facility] atorvastatin Notes: (Same as: Lipitor) No Longer Active 06/23/2016 [facility] POLYETHYLENE GLYCOL 3350 Notes : Dissolve in 8 oz of water or juice. (Same as: Miralax) No Longer Active 06/22/2016 [facility] Minocycline Notes: (Same as:Mi nocin) No milk/antacids/iron. No Longer Active 06/22/2016 [facility] Docusate Notes: (Same as: Cola ce) (Do Not Crush) No Longer Active 06/22/2016 [facility] gabapentin 300 MG Oral Capsule Notes: (Same as: Neurontin) No Longer Active 06/22/2016 [facility] carvedilol 25 mg, Route: PO, D rug form: TAB, Q12H, Dosing Weight 112.727, kg, Start date: 06/22/16 9:00:00 IMMUNOLOGY SPECIALIST, Duration: 30 day, Stop date: 07/21/16 21:00:00 CDT Inactive 06/22/2016 [facility] Amlodipine Notes: (Same as: No rvasc) No Longer Active 06/22/2016 [facility] heparin Notes: porcine heparin No Longer Active 06/22/2016 [facility] Methocarbamol Notes: (Same as: Robaxin) No Longer Active 06/22/2016 [facility] Hydralazine Hydrochloride 50 MG Oral Tablet 50 mg, 1 tab, Route: PO, Drug form: TAB, Q8H, Dosing Weight 112.727, kg, Start date: 06/22/16 8:00:00 IMMUNOLOGY SPECIALIST, Duration: 30 day, Stop date: 07/22/16 0:00:00 CDT Inactive 06/22/2016 [facility] Oxycodone Hydrochloride 5 MG Oral Tablet Notes: (Same as: Roxicodone) No Longer Active 06/22/2016 [facility] Bisacodyl Notes: (Same As: Dul colax, Bisco-Lax) No Longer Active 06/22/2016 [facility] Alprazolam 0.25 MG Oral Tablet Notes: With food or milk (Same as: Xanax) No Longer Active 06/22/2016 [facility] Acetaminophen 325 MG / Hydrocodone Jeanie trate 5 MG Oral Tablet Notes: (Same as: [place] 325/5) Do not ex ceed 4gm/day of acetaminophen. No Longer Active 06/22/2016 [facility] Acetaminophen Notes: Do not ex ceed 4 gm/day. (Same as: Tylenol) No Longer Active 06/22/2016 [facility] Ondansetron Notes: (Same as: Barron cain) MEDICATION WASTE Product Size: 4 mg Product Wasted: ___ mg No Longer Active 06/22/2016 [facility] Morphine Notes: (Same as:MORPh ine Sulfate) No Longer Active 06/22/2016 [facility] Hydralazine Notes: (Same as: A presoline) Push over 5 minutes Inactive 06/22/2016 [facility] Zofran 4 mg, Route: IVP, Drug form: INJ, ONCE, Dosing Weight 112.727, kg, Priority: STAT, Start date: 06/22/16 1:05:00 IMMUNOLOGY SPECIALIST, Stop date: 06/22/16 1:05:00 IMMUNOLOGY SPECIALIST Inactive 06/22/2016 [facility] Morphine 4 mg, Route: IVP, ONC E, Dosing Weight 112.727, kg, Priority: STAT, Start date: 06/22/16 1:04:00 IMMUNOLOGY SPECIALIST, Stop date: 06/22/16 1:04:00 IMMUNOLOGY SPECIALIST Inactive 06/22/2016 [facility] minocycline 100 mg oral capsule 100 mg = 1 cap, PO, [id number], X 30 day, # 60 cap, 0 Refill(s), Pharmacy: [facility] [id number] Active 06/14/2016 [facility] gabapentin 300 MG Oral Capsule 300 mg = 1 cap, PO, Q12H, # 60 cap, 0 Refill(s), Pharmacy: [facility] [id number] Active 06/14/2016 [facility] Furosemide 20 MG Oral Tablet [Lasix] 20 mg = 1 tab, PO, BID, # 30 tab, 1 Refill(s), Pharmacy: [facility] [id number] Active 06/14/2016 [facility] carvedilol 25 mg oral tablet 2 5 mg = 1 tab, PO, Q12H, # 60 tab, 3 Refill(s), Pharmacy: [facility] [id number] Active 06/14/2016 [facility] atorvastatin 40 mg oral tablet 40 mg = 1 tab, PO, Bedtime, # 90 tab, 0 Refill(s), Pharmacy: [facility] [id number] Active 06/14/2016 [facility] amLODIPine 10 mg oral tablet 1 0 mg = 1 tab, PO, Daily, # 90 tab, 0 Refill(s), Pharmacy: [facility] [id number] Active 06/14/2016 [facility] Alprazolam 0.25 MG Oral Tablet 0.25 mg = 1 tab, PO, Q8H, PRN Anxiety, # 20 tab, 0 Refill(s) Active 06/14/2016 [facility] Docusate Sodium 100 MG Oral Capsule 100 mg = 1 cap, PO, BID, 0 Refill(s) Active 06/14/2016 [facility] Hydralazine Hydrochloride 50 MG Oral Tablet 50 mg = 1 tab, PO, Q8H, # 90 tab, 0 Refill(s), Pharmacy: [facility] [id number] Active 06/14/2016 [facility] bisacodyl 10 mg rectal suppository 10 mg = 1 supp, VA, Daily, PRN Constipation, 0 Refill(s) Active 06/14/2016 [facility] POLYETHYLENE GLYCOL 3350 17 gm = 1 pkt, PO, Daily, 0 Refill(s) Active 06/14/2016 [facility] senna 8.6 mg oral tablet 17.2 mg = 2 tab, PO, Bedtime, 0 Refill(s) Active 06/14/2016 [facility] methocarbamol 750 mg oral tablet 750 mg = 1 tab, PO, TID, X 14 day, # 42 tab, 0 Refill(s), Pharmacy: [facility] [id number] Active 06/14/2016 [facility] Oxycodone Hydrochloride 5 MG Oral Tablet 5 mg = 1 tab, PO, Q6H, PRN Pain Score 4-6, # 30 tab, 0 Refill(s) Active 06/14/2016 [facility] Lasix Notes: (Same as: Lasix) Inactive 06/14/2016 [facility] Kayexalate Notes: (sodium poly styrene sulfonate 15 gm/60 ml STEPHANIE) Shake well before use. (Same as: Kayexalate, SPS) Inactive 06/14/2016 [facility] Methocarbamol Notes: (Same as: Robaxin) Inactive 06/14/2016 [facility] Minocycline Notes: (Same as:Mi nocin) No milk/antacids/iron. Inactive 06/14/2016 [facility] aspirin 81 mg tablet, enteric coated Notes: Do not crush or chew. (Same As: Ecotrin) Inactive 06/14/2016 [facility] Amlodipine Notes: (Same as: No rvasc) Inactive 06/14/2016 [facility] POLYETHYLENE GLYCOL 3350 Notes : Dissolve in 8 oz of water or juice. (Same as: Miralax) Inactive 06/14/2016 [facility] Insulin Glargine Notes: Same a s Lantus Solostar PEN Do not hold insulin without contacting prescriber "single patient use only" WASTE: F/P - Black; E - Municipal Trash Bin Stable for 28 days at room temperature. Expires in days from Date No Longer Active 06/14/2016 [facility] Levemir Notes: Same as Levemir Do not hold insulin without contacting prescriber WASTE: F/P - Black; E - Municipal Trash Bin "single patient use only" Inactive 06/14/2016 [facility] Lasix Notes: (Same as: Lasix) Inactive 06/14/2016 [facility] Insulin, Aspart, Human Notes: Roll in palms of hands gently; Do not shake vigorously. (Same as: NovoLOG) "single patient use only" WASTE: F/P - Black; E - Municipal Trash Bin Stable for 28 days at room temperature. Expires in days from Date Inactive 06/14/2016 [facility] Insulin Glargine 100 UNT/ML Injectable S olution [Lantus] Notes: Same as: Lantus) Do not hold insu josh without contacting prescriber WASTE: F/P - Black; E - Municipal Trash Bin Inactive 06/14/2016 [facility] Insulin, Aspart, Human Notes: Roll in palms of hands gently; Do not shake vigorously. (Same as: NovoLOG) "single patient use only" WASTE: F/P - Black; E - Municipal Trash Bin Stable for 28 days at room temperature. Expires in days from Date No Longer Active 06/14/2016 [facility] Glucagon 1 mg, Route: IM, Drug form: PDR/INJ, PRN, Dosing Weight 112.727, kg, PRN Blood Glucose Results, Start date: 06/13/16 21:37:00 IMMUNOLOGY SPECIALIST, Duration: 30 day, Stop date: 07/13/16 22:36:00 CDT No Longer Active 06/14/2016 [facility] Dextrose 50% Syringe 25 gm, 50 mL, Route: IVP, Drug Form: INJ, Dosing Weight 112.727, kg, PRN, PRN Blood Glucose Results, Start date: 06/13/16 21:37:00 IMMUNOLOGY SPECIALIST, Duration: 30 day, Stop date: 07/13/16 22:36:00 CDT No Longer Active 06/14/2016 [facility] atorvastatin Notes: (Same as: Lipitor) No Longer Active 06/14/2016 [facility] sennosides, DETENTION Notes: (Same a s: Senokot) No Longer Active 06/14/2016 [facility] carvedilol Notes: Give with fo od. (Same As: Coreg) No Longer Active 06/14/2016 [facility] Hydralazine Hydrochloride 50 MG Oral Tablet Notes: (Same as: Apresoline) May interfere w/enteral feedings Take With Food No Longer Active 06/14/2016 [facility] Docusate Notes: (Same as: Cola ce) (Do Not Crush) No Longer Active 06/13/2016 [facility] Furosemide 20 MG Oral Tablet [Lasix] Notes: (Same as: Lasix) May cause GI upset. Give with food or milk. No Longer Active 06/13/2016 [facility] Hydralazine Notes: (Same as: A presoline) No Longer Active 06/13/2016 [facility] Acetaminophen Notes: Max aceta minophen 4000 mg/day (4 gm/day). (Same as: Tylenol Extra Strength) No Longer Active 06/13/2016 [facility] gabapentin Notes: (Same as: Ne urontin) No Longer Active 06/13/2016 [facility] Tramadol Notes: Not to exceed 400mg/day. (Same As: Ultram) No Longer Active 06/13/2016 [facility] heparin Notes: porcine heparin No Longer Active 06/13/2016 [facility] Labetalol 100 No Longer Active 06/13/2016 [facility] Oxycodone Hydrochloride 5 MG Oral Tablet Notes: (Same as: Roxicodone) No Longer Active 06/13/2016 [facility] Methocarbamol Notes: (Same as: Robaxin) No Longer Active 06/13/2016 [facility] Bisacodyl Notes: (Same As: Dul colax, Bisco-Lax) No Longer Active 06/13/2016 [facility] Alprazolam Notes: With food or milk (Same as: Xanax) No Longer Active 06/13/2016 [facility] Ondansetron Notes: (Same as: Barron cain) MEDICATION WASTE Product Size: 4 mg Product Wasted: ___ mg No Longer Active 06/13/2016 [facility] Hydromorphone Notes: Same as: Dilaudid Inactive 06/13/2016 [facility] Hydralazine Notes: (Same as: A presoline) Push over 5 minutes Inactive 06/13/2016 [facility] Labetalol 20 mg, 4 mL, Route: IVP, Drug form: INJ, ONCE, Dosing Weight 112.727, kg, Start date: 06/13/16 14:46:00 IMMUNOLOGY SPECIALIST, Stop date: 06/13/16 14:46:00 IMMUNOLOGY SPECIALIST Inactive 06/13/2016 [facility] insulin detemir 100 UNT/ML Injectable So lution [Levemir] 30 unit, SUB-Q, Daily, 0 Refill(s) Active 06/13/2016 [facility] Lisinopril Notes: (Same as: Pr inivil, Zestril) Inactive 06/13/2016 [facility] Hydralazine Hydrochloride 25 MG Oral Tablet Notes: (Same as: Apresoline) May interfere w/enteral feedings Take With Food. Inactive 06/13/2016 [facility] Zofran 4 mg, Route: IVP, Drug form: INJ, ONCE, Dosing Weight 112.727, kg, Priority: STAT, Start date: 06/13/16 10:55:00 IMMUNOLOGY SPECIALIST, Stop date: 06/13/16 10:55:00 IMMUNOLOGY SPECIALIST Inactive 06/13/2016 [facility] Clonidine Notes: (Same As: Cat apres) Inactive 06/13/2016 [facility] Coreg Notes: Give with food. ( Same As: Coreg) Inactive 06/13/2016 [facility] Albuterol 0.83 MG/ML Inhalant Solution Notes: SEE RT DOCUMENTATION (Same as: Proventil) Inactive 06/13/2016 [facility] Kayexalate Notes: (sodium poly styrene sulfonate 15 gm/60 ml STEPHANIE) Shake well before use. (Same as: Kayexalate, SPS) Inactive 06/13/2016 [facility] Norvasc Notes: (Same as: Norva sc) Inactive 06/13/2016 [facility] Dilaudid Notes: Same as: Dilau did Inactive 06/13/2016 [facility] Acetaminophen 325 MG / Hydrocodone Jeanie trate 5 MG Oral Tablet [[place] 5/325] Notes: (Same as: [place] 325/5) Do not ex ceed 4gm/day of acetaminophen. Inactive 06/13/2016 [facility] Furosemide 20 MG Oral Tablet [Lasix] 20 mg = 1 tab, PO, BID, # 30 tab, 1 Refill(s) Active 05/30/2016 [facility] gabapentin 300 MG Oral Capsule 300 mg = 1 cap, PO, TID, # 90 cap, 0 Refill(s) Active 05/30/2016 [facility] Hydromorphone Notes: Same as D ilaudid Inactive 05/30/2016 [facility] Hydromorphone Notes: Same as D ilaudid Inactive 05/30/2016 [facility] Lasix Notes: (Same as: Lasix) MEDICATION WASTE Product Size: 40 mg Product Wasted: 0 mg Inactive 05/30/2016 [facility] Phenergan Notes: Do not give I V push. (Same as: Phenergan) Inactive 05/30/2016 [facility] Acetaminophen 325 MG / Hydrocodone Jeanie trate 10 MG Oral Tablet [[place] 10/325] Notes: Do not exceed 4gm/day of acetamin ophen. (Same as: [place] 325/10) Inactive 05/30/2016 [facility] Hydromorphone Notes: Same as: Dilaudid Inactive 05/30/2016 [facility] Acetaminophen 300 MG / Codeine Phosphate 30 MG Oral Tablet [Tylenol with Codeine #3] 1 - 2 tab, PO, Q6H, PRN Pain, X 3 day, # 30 tab, 0 Refill(s) Active 05/27/2016 [facility] Dilaudid 0.5 mg, Route: IVP, O NCE, Dosing Weight 112.727, kg, Priority: STAT, Start date: 05/27/16 6:27:00 IMMUNOLOGY SPECIALIST, Stop date: 05/27/16 6:27:00 IMMUNOLOGY SPECIALIST Inactive 05/27/2016 [facility] Acetaminophen 325 MG / Hydrocodone Jeanie trate 10 MG Oral Tablet [[place] 10/325] 1 tab, Route: PO, Drug Form: TAB, Dosing Weight 112.727, kg, ONCE, STAT, Start date: 05/27/16 6:27:00 IMMUNOLOGY SPECIALIST, Stop date: 05/27/16 6:27:00 IMMUNOLOGY SPECIALIST Inactive 05/27/2016 [facility] Sodium Chloride 0.154 MEQ/ML Injectable Solution 500 mL, 500 ml/hr, Infuse Over: 1 hr, Route: IV, ONCE, Priority: STAT, Dosing Weight 112.727 kg, Start date: 05/27/16 6:17:00 IMMUNOLOGY SPECIALIST, Duration: 1 doses or times, Stop date: 05/27/16 6:17:00 IMMUNOLOGY SPECIALIST Inactive 05/27/2016 [facility] Hydromorphone 1 mg, Route: IVP , ONCE, Dosing Weight 112.727, kg, Priority: STAT, Start date: 05/27/16 6:17:00 IMMUNOLOGY SPECIALIST, Stop date: 05/27/16 6:17:00 IMMUNOLOGY SPECIALIST Inactive 05/27/2016 [facility] Dilaudid 0.5 mg, Route: IVP, O NCE, Dosing Weight 112.727, kg, Priority: STAT, Start date: 05/27/16 4:37:00 IMMUNOLOGY SPECIALIST, Stop date: 05/27/16 4:37:00 IMMUNOLOGY SPECIALIST Inactive 05/27/2016 [facility] Acetaminophen 325 MG / Hydrocodone Jeanie trate 10 MG Oral Tablet [[place] 10/325] 1 tab, Route: PO, Drug Form: TAB, Dosing Weight 112.727, kg, ONCE, STAT, Start date: 05/27/16 4:36:00 IMMUNOLOGY SPECIALIST, Stop date: 05/27/16 4:36:00 IMMUNOLOGY SPECIALIST Inactive 05/27/2016 [facility] carvedilol Notes: Give with fo od. (Same As: Coreg) Inactive 05/27/2016 [facility] Lisinopril Notes: (Same as: Pr inivil, Zestril) Inactive 05/27/2016 [facility] GI cocktail Notes: G.I. [place] = antacid with simethicone 22.5 mL - lidocaine viscous 7.5 mL Inactive 05/27/2016 [facility] Hydromorphone Notes: Same as D ilaudid Inactive 05/27/2016 [facility] Acetaminophen 300 MG / Codeine Phosphate 30 MG Oral Tablet [Tylenol with Codeine #3] 1 tab, PO, Q4H, PRN Pain, X 5 day, # 30 tab, 0 Refill(s) Active 05/18/2016 [facility] aspirin 81 mg tablet, enteric coated Notes: Do not crush or chew. (Same As: Ecotrin) Inactive 05/18/2016 [facility] Minocycline Notes: (Same as:Mi nocin) No milk/antacids/iron. Inactive 05/18/2016 [facility] atorvastatin Notes: (Same as: Lipitor) No Longer Active 05/18/2016 [facility] heparin Notes: porcine heparin No Longer Active 05/17/2016 [facility] heparin sodium, porcine 2500 UNT/ML Injectable Solutio n Route: SUB-Q, TID, Dosing Weight 107.727, kg, Start date: 05/17/16 17:00:00 IMMUNOLOGY SPECIALIST, Duration: 30 day, Stop date: 06/16/16 13:00:00 IMMUNOLOGY SPECIALIST Inactive 05/17/2016 [facility] Bentyl Notes: (Same as: Bentyl) No Longer Active 05/17/2016 [facility] Morphine Notes: (Same as:MORPh ine Sulfate) Inactive 05/17/2016 [facility] tramadol hydrochloride 50 MG Oral Tablet [Ultram] 50 mg, Route: PO, Drug form: TAB, Q4H, Dosing Weight 107.727, kg, PRN Pain Score 4-6, Start date: 05/17/16 10:42:00 IMMUNOLOGY SPECIALIST, Duration: 30 day, Stop date: 06/16/16 10:41:00 IMMUNOLOGY SPECIALIST Inactive 05/17/2016 [facility] Lasix Notes: (Same as: Lasix) MEDICATION WASTE Product Size: 40 mg Product Wasted: ___ mg Inactive 05/17/2016 [facility] Minocycline Notes: (Same as:Madeline nocbuddy) No milk/antacids/iron. Inactive 05/17/2016 [facility] Docusate Notes: (Same as: Cola ce) (Do Not Crush) No Longer Active 05/17/2016 [facility] POLYETHYLENE GLYCOL 3350 Notes : Dissolve in 8 oz of water or juice. (Same as: Miralax) No Longer Active 05/17/2016 [facility] Sertraline Notes: (Same as: Z oloft) No Longer Active 05/17/2016 [facility] Menthol 0.0044 MG/MG / Zinc Oxide 0.2 MG /MG Topical Ointment [Calmoseptine Ointment] Notes: (Same as: Calmoseptine) No Longer Active 05/17/2016 [facility] Lisinopril Notes: (Same as: Pr inivil, Zestril) No Longer Active 05/17/2016 [facility] gabapentin 300 MG Oral Capsule Notes: (Same as: Neurontin) No Longer Active 05/17/2016 [facility] Furosemide 20 MG Oral Tablet N otes: (Same as: Lasix) May cause GI upset. Give with food or milk. No Longer Active 05/17/2016 [facility] carvedilol Notes: Give with fo od. (Same As: Coreg) No Longer Active 05/17/2016 [facility] Amlodipine Notes: (Same as: No rvasc) No Longer Active 05/17/2016 [facility] Minocycline Notes: (Same as:Madeline knutson) No milk/antacids/iron. Inactive 05/17/2016 [facility] Lasix Notes: (Same as: Lasix) MEDICATION WASTE Product Size: 40 mg Product Wasted: ___ mg Inactive 05/17/2016 [facility] Insulin, Aspart, Human Notes: Roll in palms of hands gently; Do not shake vigorously. (Same as: NovoLOG) "single patient use only" WASTE: F/P - Black; E - Municipal Trash Bin Stable for 28 days at room temperature. Expires in days from Date No Longer Active 05/17/2016 [facility] Dextrose 50% Syringe 12.5 gm, 25 mL, Route: IVP, Drug Form: INJ, Dosing Weight 107.727, kg, PRN, PRN Blood Glucose Results, Start date: 05/17/16 6:32:00 IMMUNOLOGY SPECIALIST, Duration: 30 day, Stop date: 06/16/16 6:31:00 IMMUNOLOGY SPECIALIST No Longer Active 05/17/2016 [facility] Glucagon 1 mg, Route: IM, Drug form: PDR/INJ, PRN, Dosing Weight 107.727, kg, PRN Blood Glucose Results, Start date: 05/17/16 6:32:00 IMMUNOLOGY SPECIALIST, Duration: 30 day, Stop date: 06/16/16 6:31:00 IMMUNOLOGY SPECIALIST No Longer Active 05/17/2016 [facility] Melatonin Notes: (Same as: Sydney tobar) No Longer Active 05/17/2016 [facility] Lidocaine Hydrochloride 0.05 MG/MG Trans dermal Patch [Lidoderm] Notes: Apply only once for up to 12 hour s in a 24-hour period (12 hours on and 12 hours off). (Same as: Lidoderm) "Remove old patch before application of new patch" No Longer Active 05/17/2016 [facility] Morphine 4 mg, Route: IVP, ONC E, Dosing Weight 107.727, kg, Start date: 05/17/16 4:48:00 IMMUNOLOGY SPECIALIST, Stop date: 05/17/16 4:48:00 IMMUNOLOGY SPECIALIST Inactive 05/17/2016 [facility] Methocarbamol Notes: (Same as: Robaxin) No Longer Active 05/17/2016 [facility] Bisacodyl Notes: (Same As: Dul colax, Correctol) (Do Not Crush) "Do Not Crush" No Longer Active 05/17/2016 [facility] Ondansetron Notes: (Same as: Barron cain) MEDICATION WASTE Product Size: 4 mg Product Wasted: ___ mg No Longer Active 05/17/2016 [facility] Diphenhydramine Notes: (Same a s: Benadryl) No Longer Active 05/17/2016 [facility] Melatonin Notes: (Same as: Sydney atmook) Inactive 05/17/2016 [facility] Acetaminophen 325 MG / Hydrocodone Jeanie trate 10 MG Oral Tablet [[place] 10/325] Notes: Do not exceed 4gm/day of acetamin ophen. (Same as: [place] 325/10) No Longer Active 05/17/2016 [facility] Tylenol Notes: Max acetaminoph en = 4000mg/day (4 gm/day). (Same as: Tylenol) N o Longer Active 05/17/2016 [facility] Acetaminophen 325 MG / Hydrocodone Jeanie trate 5 MG Oral Tablet [[place] 5/325] Notes: (Same as: [place] 325/5) Do not ex ceed 4gm/day of acetaminophen. No Longer Activ e 05/17/2016 [facility] heparin additive 25,000 unit [18 unit/kg /hr] + Premix Diluent Dextrose 5% 500 mL 500 mL, Rate: 28.82 ml/hr, Infuse over: 17.3 hr, Route: IV, Dosing Weight 80.05 kg, Total Volume: 500 mL, Start date: 05/17/16 3:46:00 IMMUNOLOGY SPECIALIST, Duration: 30 day, Stop date: 06/16/16 3:45:00 IMMUNOLOGY SPECIALIST Inactive 05/17/2016 [facility] Heparin 40 unit/kg Bolus (Heparin Dosing Weight) Route: IVP, PRN, 3,200 unit, 3.2 mL, Drug form: INJ, PRN, Heparin Protocol, Start date: 05/17/16 3:46:00 IMMUNOLOGY SPECIALIST Stop date: 06/16/16 3:45:00 IMMUNOLOGY SPECIALIST, 30 day Inactive 05/17/2016 [facility] Heparin 80 unit/kg Bolus (Heparin Dosing Weight) Route: IVP, PRN, 6,400 unit, 6.4 mL, Drug form: INJ, PRN, Heparin Protocol, Start date: 05/17/16 3:46:00 IMMUNOLOGY SPECIALIST Stop date: 06/16/16 3:45:00 IMMUNOLOGY SPECIALIST, 30 day Inactive 05/17/2016 [facility] Heparin - one time bolus for DVT/PE 9,360 unit, 9.36 mL, Route: IVP, Drug form: INJ, ONCE, Dosing Weight 117.273, kg, Priority: STAT, Start date: 05/17/16 3:46:00 IMMUNOLOGY SPECIALIST, Stop date: 05/17/16 3:46:00 IMMUNOLOGY SPECIALIST Inactive 05/17/2016 [facility] Magnesium Sulfate Notes: WASTE : F/P - Sink; E - Municipal Trash Bin Inactive 05/17/2016 [facility] Morphine Notes: (Same as:MORPh ine Sulfate) Inactive 05/17/2016 [facility] Aspirin 325 MG Oral Tablet Not es: Take with food. Inactive 05/17/2016 [facility] Zofran Notes: (Same as: Zofran ) MEDICATION WASTE Product Size: 4 mg Product Wasted: ___ mg Inactive 05/17/2016 [facility] GI cocktail Notes: G.I. [place] = antacid with simethicone 22.5 mL - lidocaine viscous 7.5 mL Inactive 05/17/2016 [facility] Ondansetron 4 MG Disintegrating Tablet [Zofran] 4 mg = 1 tab, PO, TID, Dissolve tab under tongue, X 1 day, # 3 tab, 0 Refill(s) No Longer Active 04/19/2016 [facility] Morphine Notes: (Same as:MORPh ine Sulfate) Inactive 04/19/2016 [facility] Morphine 4 mg, Route: IVP, ONC E, Dosing Weight 117.273, kg, Priority: STAT, Start date: 04/19/16 9:14:00 IMMUNOLOGY SPECIALIST, Stop date: 04/19/16 9:14:00 IMMUNOLOGY SPECIALIST Inactive 04/19/2016 [facility] Saline Flush 0.9% Notes: (Same as: BD Posiflush) Inactive 04/19/2016 [facility] Morphine Notes: (Same as:MORPh ine Sulfate) Inactive 04/19/2016 [facility] Sodium Chloride 0.154 MEQ/ML Injectable Solution 1,000 mL, 2,000 ml/hr, Infuse Over: 30 minutes, Route: IV, 1,000, Drug form: INJ, ONCE, Priority: STAT, Dosing Weight 117.273 kg, Start date: 04/19/16 8:21:00 IMMUNOLOGY SPECIALIST, Duration: 1 doses or times, Stop date: 04/19/16 8:21:00 IMMUNOLOGY SPECIALIST Inactive 04/19/2016 [facility] Ondansetron Notes: (Same as: Barron cain) MEDICATION WASTE Product Size: 4 mg Product Wasted: ___ mg Inactive 04/19/2016 [facility] rifaMPIN 300 mg oral capsule 6 00 mg = 2 cap, PO, [id number], X 30 day, # 60 cap, 0 Refill(s), Pharmacy: [facility] [id number] Active 04/01/2016 [facility] lisinopril 20 mg oral tablet 4 0 mg = 2 tab, PO, Daily, # 60 tab, 2 Refill(s), Pharmacy: [facility] [id number] Active 04/01/2016 [facility] tramadol hydrochloride 50 MG Oral Tablet 50 mg = 1 tab, PO, Q6H, X 7 day, # 28 tab, 0 Refill(s) Active 04/01/2016 [facility] minocycline 100 mg oral capsule 100 mg = 1 cap, PO, [id number], X 30 day, # 60 cap, 3 Refill(s), [facility] [facility] Active 04/01/2016 [facility] Minocycline Notes: (Same as:Mi nocin) No milk/antacids/iron. Inactive 04/01/2016 [facility] Rifampin Notes: (Same as: Rifa din) No Longer Active 04/01/2016 [facility] Minocycline Notes: (Same as:Mi nocin) No milk/antacids/iron. Inactive 03/31/2016 [facility] Simethicone Notes: (Same as: M ylicon) No Longer Active 03/31/2016 [facility] Melatonin 3 MG Extended Release Tablet Notes: (Same as: Melatonin) No Longer Active 03/31/2016 [facility] ceftaroline + sodium chloride 0.9% INJ 100 mL Notes: Reserved for use by ID Physicians in refractory MRSA skin and skin structure infections or intolerance to vancomycin, daptomycin or linezolid. Non-Formulary Drug MEDICATION WASTE Product Size: 600 mg Product Wasted: ___ mg No Longer Active 03/29/2016 [facility] Imodium A-D Notes: Same as Imo dium No Longer Active 03/29/2016 [facility] Hydralazine Hydrochloride 25 MG Oral Tablet Notes: (Same as: Apresoline) May interfere w/enteral feedings Take With Food. No Longer Active 03/27/2016 [facility] sodium chloride 0.9% 1000 ml INJ 1,000 mL 1,000 mL, Rate: 125 ml/hr, Infuse over: 8 hr, Route: IV, Dosing Weight 115 kg, Total Volume: 1,000, Start date: 03/27/16 4:28:00 IMMUNOLOGY SPECIALIST, Duration: 30 day, Stop date: 04/26/16 4:27:00 IMMUNOLOGY SPECIALIST No Longer Active 03/27/2016 [facility] Hydralazine Hydrochloride 25 MG Oral Tablet Notes: (Same as: Apresoline) May interfere w/enteral feedings Take With Food. No Longer Active 03/26/2016 [facility] ceftaroline + sodium chloride 0.9% INJ 100 mL Notes: Reserved for use by CT Physicians in refractory MRSA skin and skin structure infections or intolerance to vancomycin, daptomycin or linezolid. Non-Formulary Drug MEDICATION WASTE Product Size: 600 mg Product Wasted: 0 mg No Longer Active 03/26/2016 [facility] Lisinopril Notes: (Same as: Pr inivil, Zestril) No Longer Active 03/25/2016 [facility] Promethazine Notes: (Same as: Phenergan) No Longer Active 03/25/2016 [facility] Hydralazine Notes: (Same as: A presoline) Push over 5 minutes No Longer Active 03/23/2016 [facility] Hydralazine Notes: (Same as: A presoline) Push over 5 minutes Inactive 03/23/2016 [facility] D5W 1/2NS 1,000 mL 1,000 mL, R ate: 125 ml/hr, Infuse over: 8 hr, Route: IV, Dosing Weight 115 kg, Total Volume: 1,000, Start date: 03/22/16 15:23:00 IMMUNOLOGY SPECIALIST, Duration: 30 day, Stop date: 04/21/16 15:22:00 IMMUNOLOGY SPECIALIST No Longer Active 03/22/2016 [facility] Morphine Notes: (Same as:MORPh ine Sulfate) Inactive 03/22/2016 [facility] Oxycodone Hydrochloride 5 MG Oral Tablet Notes: (Same as: Roxicodone) No Longer Active 03/22/2016 [facility] Clindamycin Notes: (Same As: C leocin) No Longer Active 03/20/2016 [facility] Menthol 0.0044 MG/MG / Zinc Oxide 0.2 MG /MG Topical Ointment [Calmoseptine Ointment] Notes: (Same as: Calmoseptine) No Longer Active 03/19/2016 [facility] tramadol hydrochloride 50 MG Oral Tablet Notes: Not to exceed 400mg/day. (Same As: Ultram) No Longer Active 03/19/2016 [facility] tramadol hydrochloride 50 MG Oral Tablet Notes: Not to exceed 400mg/day. (Same As: Ultram) No Longer Active 03/18/2016 [facility] Diclofenac Sodium 0.01 MG/MG Topical Gel [Voltaren] 2 gm, Route: TOP, Drug form: GEL, QID, Dosing Weight 115, kg, Start date: 03/18/16 9:00:00 IMMUNOLOGY SPECIALIST, Duration: 30 day, Stop date: 04/16/16 21:00:00 IMMUNOLOGY SPECIALIST Inactive 03/18/2016 [facility] gabapentin 100 MG Oral Capsule Notes: (Same as: Neurontin) No Longer Active 03/18/2016 [facility] Bicitra oral solution Notes: ( Same As: Bicitra, Cytra-2) Sodium citrate-citric acid (500-334 mg/5 mL): 1 mL contains sodium 1 mEq/mL and bicarbonate 1 mEq/mL No Longe r Active 03/18/2016 [facility] Vancomycin Notes: TIME CRITICA L MEDICATION (Same As: Vancocin) Inactive 03/18/2016 [facility] Levemir Notes: Same as Levemir Do not hold insulin without contacting prescriber WASTE: F/P - Black; E - Municipal Trash Bin "single patient use only" No Longer Active 03/18/2016 [facility] sodium chloride 0.9% 1000 ml INJ 250 mL 250 mL, Rate: house calls nurse for use with blood product administration, Dosing Weight 115, kg, Route: IV, Total Volume: 250, Start Date: 03/17/16 4:38:00 IMMUNOLOGY SPECIALIST, Duration: 30 day, Stop date: 04/16/16 4:37:00 IMMUNOLOGY SPECIALIST, Replace Every: 24 hr No Longer Active 03/17/2016 [facility] Morphine Notes: (Same as:MORPh ine Sulfate) Inactive 03/17/2016 [facility] Acetaminophen Notes: Max aceta minophen 4000 mg/day (4 gm/day). (Same as: Tylenol Extra Strength) No Longer Active 03/16/2016 [facility] Sodium Chloride 0.154 MEQ/ML Injectable Solution 1,000 mL, 1,000 ml/hr, Infuse Over: 1 hr, Route: IV, 1,000, Drug form: INJ, ONCE, Priority: STAT, Dosing Weight 115 kg, Start date: 03/16/16 16:50:00 IMMUNOLOGY SPECIALIST, Duration: 1 doses or times, Stop date: 03/16/16 16:50:00 IMMUNOLOGY SPECIALIST Inactive 03/16/2016 [facility] Levemir Notes: Same as Levemir Do not hold insulin without contacting prescriber WASTE: F/P - Black; E - Municipal Trash Bin "single patient use only" No Longer Active 03/16/2016 [facility] atorvastatin Notes: (Same as: Lipitor) No Longer Active 03/16/2016 [facility] ferrous sulfate Notes: Give wi th food. "Do Not Crush" No Longer Active 03/16/2016 [facility] Acetaminophen Notes: Max aceta minophen 4000 mg/day (4 gm/day). (Same as: Tylenol Extra Strength) No Longer Active 03/15/2016 [facility] Zosyn Notes: (Same as: Zosyn) Dosing based on Piperacillin component MEDICATION WASTE Product Size: 3375 mg Product Wasted: ___ mg No Longer Active 03/15/2016 [facility] Isolyte S (PH 7.4) 1000 mL 1,000 mL Notes: (Same as: Isolyte S PH 7.4) No Longer Active 03/15/2016 [facility] Oxycodone Hydrochloride 5 MG Oral Tablet Notes: (Same as: Roxicodone) No Longer Active 03/15/2016 [facility] Sertraline Notes: (Same as: Z oloft) No Longer Active 03/15/2016 [facility] gabapentin 300 MG Oral Capsule Notes: (Same as: Neurontin) No Longer Active 03/15/2016 [facility] ferrous sulfate Notes: Give wi th food. iron elemental [id number] as ferrous sulfate Dose=___mg elemental iron Inactive 03/15/2016 [facility] carvedilol Notes: Give with fo od. (Same As: Coreg) No Longer Active 03/15/2016 [facility] aspirin 81 mg tablet, enteric coated Notes: Do not crush or chew. (Same As: Ecotrin) N o Longer Active 03/15/2016 [facility] Amlodipine Notes: (Same as: No rvasc) No Longer Active 03/15/2016 [facility] heparin sodium, porcine 2500 UNT/ML Injectable Solutio n Notes: porcine heparin No Longer Active 03/15/2016 [facility] Dextrose 50% Syringe 12.5 gm, 25 mL, Route: IVP, Drug Form: INJ, Dosing Weight 115, kg, PRN, PRN Blood Glucose Results, Start date: 03/15/16 5:07:00 IMMUNOLOGY SPECIALIST, Duration: 30 day, Stop date: 04/14/16 5:06:00 IMMUNOLOGY SPECIALIST No Longer Active 03/15/2016 [facility] Glucagon 1 mg, Route: IM, Drug form: PDR/INJ, PRN, Dosing Weight 115, kg, PRN Blood Glucose Results, Start date: 03/15/16 5:07:00 IMMUNOLOGY SPECIALIST, Duration: 30 day, Stop date: 04/14/16 5:06:00 IMMUNOLOGY SPECIALIST No Longer Active 03/15/2016 [facility] Insulin, Aspart, Human Notes: Roll in palms of hands gently; Do not shake vigorously. (Same as: NovoLOG) "single patient use only" WASTE: F/P - Black; E - Municipal Trash Bin Stable for 28 days at room temperature. Expires in days from Date No Longer Active 03/15/2016 [facility] Magnesium Sulfate Notes: WASTE : F/P - Sink; E - Municipal Trash Bin Inactive 03/15/2016 [facility] Melatonin Notes: (Same as: Sydney atonin) No Longer Active 03/15/2016 [facility] Acetaminophen 325 MG / Hydrocodone Jeanie trate 5 MG Oral Tablet [[place] 5/325] Notes: (Same as: [place] 325/5) Do not ex ceed 4gm/day of acetaminophen. Inactive 03/15/2016 [facility] Vancomycin 2001 mg: infuse ov er 2.5 hours MEDICATION WASTE Product Size: 1000 mg Product Wasted: ___ mg Inactive 03/15/2016 [facility] Acetaminophen Notes: Do not ex ceed 4 gm/day. (Same as: Tylenol) Inactive 03/15/2016 [facility] Docusate Notes: (Same as: Cola ce) (Do Not Crush) No Longer Active 03/15/2016 [facility] Ondansetron Notes: (Same as: Barron cain) MEDICATION WASTE Product Size: 4 mg Product Wasted: ___ mg No Longer Active 03/15/2016 [facility] Zofran 4 mg, Route: IVP, Drug form: INJ, ONCE, Dosing Weight 115, kg, Priority: STAT, Start date: 03/14/16 22:18:00 IMMUNOLOGY SPECIALIST, Stop date: 03/14/16 22:18:00 IMMUNOLOGY SPECIALIST Inactive 03/15/2016 [facility] Ativan Notes: (Same as: Ativan) Inactive 03/15/2016 [facility] Magnesium Sulfate Notes: WASTE : F/P - Sink; E - Municipal Trash Bin Inactive 03/15/2016 [facility] Calcium Gluconate Notes: WASTE : F/P - Sink; E - Municipal Trash Bin Inactive 03/15/2016 [facility] Dilaudid Notes: Same as Dilaud id Inactive 03/15/2016 [facility] Acetaminophen Notes: Do not ex ceed 4 gm/day. (Same as: Tylenol) Inactive 03/15/2016 [facility] Sodium Chloride 0.154 MEQ/ML Injectable Solution 500 mL, 1,000 ml/hr, Infuse Over: 30 minutes, Route: IV, 500, Drug form: INJ, ONCE, Priority: STAT, Dosing Weight 115 kg, Start date: 03/14/16 20:12:00 IMMUNOLOGY SPECIALIST, Stop date: 03/14/16 20:12:00 IMMUNOLOGY SPECIALIST Inactive 03/15/2016 [facility] Ibuprofen 600 mg, Route: PO, O NCE, Dosing Weight 115, kg, Priority: STAT, Start date: 03/14/16 18:26:00 IMMUNOLOGY SPECIALIST, Stop date: 03/14/16 18:26:00 IMMUNOLOGY SPECIALIST Inactive 03/15/2016 [facility] acetaminophen 325 mg oral tablet 325 mg, Route: PO, Drug form: TAB, ONCE, Dosing Weight 115, kg, Priority: STAT, Start date: 03/14/16 16:05:00 IMMUNOLOGY SPECIALIST, Stop date: 03/14/16 16:05:00 IMMUNOLOGY SPECIALIST Inactive 03/14/2016 [facility] Sodium Chloride 0.154 MEQ/ML Injectable Solution 500 mL, 2,000 ml/hr, Infuse Over: 30 minutes, Route: IV, ONCE, Priority: STAT, Dosing Weight 115 kg, Start date: 03/14/16 15:55:00 IMMUNOLOGY SPECIALIST, Duration: 1 doses or times, Stop date: 03/14/16 15:55:00 IMMUNOLOGY SPECIALIST Inactive 03/14/2016 [facility] Magnesium Sulfate Notes: WASTE : F/P - Sink; E - Municipal Trash Bin Inactive 03/14/2016 [facility] Dextrose 50% Syringe 12.5 gm, 25 mL, Route: IVP, Drug Form: INJ, Dosing Weight 115, kg, PRN, PRN Blood Glucose Results, Start date: 03/14/16 14:04:00 IMMUNOLOGY SPECIALIST, Duration: 30 day, Stop date: 04/13/16 14:03:00 IMMUNOLOGY SPECIALIST No Longer Active 03/14/2016 [facility] Insulin (regular) Titrate IV additive 10 0 unit + sodium chloride 0.9% INJ 99 mL Notes: (Same as: Humulin R and NovoLIN R ) WASTE: F/P - Black; E - Municipal Trash Bin (Do not shake) No Longer Active 03/14/2016 [facility] Glucagon 1 mg, Route: IM, Drug form: PDR/INJ, PRN, Dosing Weight 115, kg, PRN Blood Glucose Results, Start date: 03/14/16 14:04:00 IMMUNOLOGY SPECIALIST, Duration: 30 day, Stop date: 04/13/16 14:03:00 IMMUNOLOGY SPECIALIST No Longer Active 03/14/2016 [facility] potassium chloride Notes: (Jose Luis e as: KCL) Infuse no faster than 10 mEq/hr if given peripherally. No Longer Active 03/14/2016 [facility] Magnesium Sulfate Notes: WASTE : F/P - Sink; E - Municipal Trash Bin No Longer Active 03/14/2016 [facility] potassium phosphate + sodium chloride 0.9% INJ 250 mL Notes: (Same as: K Phosphate.) 1 mMol phoshate has 1.47 mEq potassium Infuse over 4 hours No Longer Active 03/14/2016 [facility] D5W 1/2NS 1,000 mL 1,000 mL, R ate: 250 ml/hr, Infuse over: 4 hr, Route: IV, Dosing Weight 115 kg, Total Volume: 1,000, Start date: 03/14/16 14:04:00 IMMUNOLOGY SPECIALIST, Duration: 30 day, Stop date: 04/13/16 14:03:00 IMMUNOLOGY SPECIALIST No Longer Active 03/14/2016 [facility] Hydromorphone Notes: Same as D ilaudid Inactive 03/14/2016 [facility] Acetaminophen Notes: Do not ex ceed 4 gm/day. (Same as: Tylenol) Inactive 03/14/2016 [facility] Sodium Chloride 0.154 MEQ/ML Injectable Solution 1,000 mL, 1,000 ml/hr, Infuse Over: 1 hr, Route: IV, ONCE, Priority: STAT, Dosing Weight 115 kg, Start date: 03/14/16 13:32:00 IMMUNOLOGY SPECIALIST, Duration: 1 doses or times, Stop date: 03/14/16 13:32:00 IMMUNOLOGY SPECIALIST Inactive 03/14/2016 [facility] Zosyn 4.5 gm, Route: IVPB, ONC E, Dosing Weight 115, kg, Priority: STAT, Start date: 03/14/16 13:28:00 IMMUNOLOGY SPECIALIST, Stop date: 03/14/16 13:28:00 IMMUNOLOGY SPECIALIST Inactive 03/14/2016 [facility] Vancomycin 2001 mg: infuse ov er 2.5 hours MEDICATION WASTE Product Size: 1000 mg Product Wasted: ___ mg Inactive 03/14/2016 [facility] gabapentin 300 MG Oral Capsule 300 mg = 1 cap, PO, Q12H, # 60 cap, 0 Refill(s) Active 02/26/2016 [facility] Furosemide 20 MG Oral Tablet 2 0 mg = 1 tab, PO, BID, # 60 tab, 0 Refill(s) Active 02/26/2016 [facility] Acetaminophen 325 MG / Hydrocodone Jeanie trate 5 MG Oral Tablet [[place] 5/325] 2 tab, PO, Q6H, PRN Pain Score 1-3, # 30 tab, 0 Refill(s), given to patient Active 02/26/2016 [facility] cyclobenzaprine 10 mg oral tablet 10 mg = 1 tab, PO, TID, PRN Spasm, X 14 day, # 42 tab, 0 Refill(s) Active 02/26/2016 [facility] Hydralazine Notes: (Same as: A presoline) Push over 5 minutes Inactive 02/25/2016 [facility] gabapentin 300 MG Oral Capsule Notes: (Same as: Neurontin) No Longer Active 02/24/2016 [facility] Kayexalate Notes: (sodium poly styrene sulfonate 15 gm/60 ml STEPHANIE) Shake well before use. (Same as: Kayexalate, SPS) Inactive 02/24/2016 [facility] Sodium Bicarbonate Notes: "Dis solve tablet in a glass of water prior to oral administration. STOMACH WARNING: To avoid serious injury, do not take until tablet is completely dissolved. It is very important not to t desirae this product when overly full from food or drink." No Longer Active 02/24/2016 [facility] Kayexalate Notes: (sodium poly styrene sulfonate 15 gm/60 ml STEPHANIE) Shake well before use. (Same as: Kayexalate, SPS) Inactive 02/24/2016 [facility] sevelamer Notes: Give Renagel (sevelamer) 1 hour before or 3 hours after other meds "Do Not Crush" (Same as: Renagel) No Longer Active 02/23/2016 [facility] Simethicone Notes: (Same as: M ylicon) No Longer Active 02/23/2016 [facility] Acetaminophen 325 MG / Hydrocodone Jeanie trate 5 MG Oral Tablet [[place] 5/325] 1 tab, Route: PO, Dosing Weight 125.057, kg, ONCE, Start date: 02/23/16 0:18:00 CDT, Stop date: 02/23/16 0:18:00 CDT Inactive 02/23/2016 [facility] Acetaminophen 325 MG / Hydrocodone Jeanie trate 5 MG Oral Tablet [[place] 5/325] Notes: (Same as: [place] 325/5) Do not ex ceed 4gm/day of acetaminophen. No Longer Activ e 02/22/2016 [facility] Flexeril Notes: (Same As: Flex eril) No Longer Active 02/22/2016 [facility] sodium chloride 0.9% INJ 250 mL 250 mL, Rate: house calls nurse for use with blood product administration, Dosing Weight 125.057, kg, Route: IV, Total Volume: 250, Start Date: 02/22/16 9:54:00 CDT, Duration: 1 day, Stop date: 02/23/16 9:53:00 CDT, Replace Every: 24 hr No Longer Active 02/22/2016 [facility] Acetaminophen 300 MG / Codeine Phosphate 30 MG Oral Tablet [Tylenol with Codeine #3] Notes: Do not exceed 4gm/day of acetamin ophen. (Same as: Tylenol with Codeine # 3) Inactive 02/22/2016 [facility] ferrous sulfate Notes: Give wi th food. iron elemental [id number] as ferrous sulfate Dose=___mg elemental iron No Longer Active 02/21/2016 [facility] NovoLOG FlexPen Notes: Roll in palms of hands gently; Do not shake vigorously. (Same as: NovoLOG) "single patient use only" WASTE: F/P - Black; E - Municipal Trash Bin Stable for 28 days at room temperature. Expires in days from Date No Longer Active 02/21/2016 [facility] Morphine Notes: (Same as:MORPh ine Sulfate) Inactive 02/21/2016 [facility] NovoLOG FlexPen Notes: Roll in palms of hands gently; Do not shake vigorously. (Same as: NovoLOG) "single patient use only" WASTE: F/P - Black; E - Municipal Trash Bin Stable for 28 days at room temperature. Expires in days from Date No Longer Active 02/21/2016 [facility] Insulin, Aspart, Human Notes: Roll in palms of hands gently; Do not shake vigorously. (Same as: NovoLOG) "single patient use only" WASTE: F/P - Black; E - Municipal Trash Bin Stable for 28 days at room temperature. Expires in days from Date No Longer Active 02/21/2016 [facility] Glucagon 1 mg, Route: IM, Drug form: PDR/INJ, PRN, Dosing Weight 125.057, kg, PRN Blood Glucose Results, Start date: 02/21/16 10:13:00 CDT, Duration: 30 day, Stop date: 03/22/16 9:12:00 IMMUNOLOGY SPECIALIST No Longer Active 02/21/2016 [facility] Dextrose 50% Syringe 12.5 gm, 25 mL, Route: IVP, Drug Form: INJ, Dosing Weight 125.057, kg, PRN, PRN Blood Glucose Results, Start date: 02/21/16 10:13:00 CDT, Duration: 30 day, Stop date: 03/22/16 9:12:00 IMMUNOLOGY SPECIALIST No Longer Active 02/21/2016 [facility] Melatonin Notes: (Same as: Sydney tobar) No Longer Active 02/21/2016 [facility] Flexeril Notes: Same as Flexer il Inactive 02/21/2016 [facility] Docusate Sodium 50 MG / sennosides, DETENTION 8.6 MG Oral Tablet Notes: (Same as Senokot-S) Equiv. to Autumn-Colace. No Longer Active 02/21/2016 [facility] tramadol hydrochloride 50 MG Oral Tablet Notes: Not to exceed 400mg/day. (Same As: Ultram) No Longer Active 02/21/2016 [facility] Acetaminophen 325 MG / Hydrocodone Jeanie trate 10 MG Oral Tablet [[place] 10/325] Notes: Do not exceed 4gm/day of acetamin ophen. (Same as: [place] 325/10) Inactive 02/21/2016 [facility] Vancomycin 2001 mg: infuse ov er 2.5 hours MEDICATION WASTE Product Size: 1000 mg Product Wasted: ___ mg No Longer Active 02/21/2016 [facility] atorvastatin Notes: (Same as: Lipitor) No Longer Active 02/21/2016 [facility] remove patch Notes: Remove pat ch 12 hours after application each day. No Longe r Active 02/21/2016 [facility] heparin sodium, porcine 2500 UNT/ML Injectable Solutio n Notes: porcine heparin No Longer Active 02/20/2016 [facility] Acetaminophen 325 MG / Hydrocodone Jeanie trate 5 MG Oral Tablet [[place] 5/325] Notes: (Same as: [place] 325/5) Do not ex ceed 4gm/day of acetaminophen. No Longer Activ e 02/20/2016 [facility] Saline Flush 0.9% Notes: (Same as: BD Posiflush) No Longer Active 02/20/2016 [facility] Aspirin 81 MG Enteric Coated Tablet Notes: Do not crush or chew. (Same As: Ecotrin) No Longer Active 02/20/2016 [facility] Furosemide Notes: (Same as: La six) No Longer Active 02/20/2016 [facility] Sertraline Notes: (Same as: Z oloft) No Longer Active 02/20/2016 [facility] Lidocaine 0.05 MG/MG Transdermal Patch Notes: Apply only once for up to 12 hours in a 24-hour period (12 hours on and 12 hours off). (Same as: Lidoderm) "Remove old patch before application of new patch" No Longer Active 02/20/2016 [facility] Levemir Notes: Same as Levemir Do not hold insulin without contacting prescriber WASTE: F/P - Black; E - Municipal Trash Bin "single patient use only" No Longer Active 02/20/2016 [facility] gabapentin 300 MG Oral Capsule Notes: (Same as: Neurontin) No Longer Active 02/20/2016 [facility] Furosemide 20 MG Oral Tablet 2 0 mg, 1 tab, Route: PO, Drug form: TAB, BID, Dosing Weight 112.727, kg, Start date: 02/20/16 9:00:00 CDT, Duration: 30 day, Stop date: 03/20/16 17:00:00 IMMUNOLOGY SPECIALIST No Longer Active 02/20/2016 [facility] carvedilol Notes: Give with fo od. (Same As: Coreg) No Longer Active 02/20/2016 [facility] Amlodipine Notes: (Same as: No rvasc) No Longer Active 02/20/2016 [facility] NovoLOG FlexPen Notes: Roll in palms of hands gently; Do not shake vigorously. (Same as: NovoLOG) "single patient use only" WASTE: F/P - Black; E - Municipal Trash Bin Stable for 28 days at room temperature. Expires in days from Date No Longer Active 02/20/2016 [facility] Sulfamethoxazole 800 MG / Trimethoprim 1 60 MG Oral Tablet [Bactrim] Notes: One DS tablet = trimethoprim 160m g + sulfamethoxazole 800 mg Dose based on trimethoprim component On empty stomach with a glass of water. 1 hr before meals (Same As: Bactrim DS, Septra DS) No Longer Active 02/20/2016 [facility] niCARdipine 40 mg 40 mg, 200 m L, Rate: Titrate, Start Dose: 5 mg/hr, Titration: 2.5 mg/hr every 15 minutes, Goal(s): systolic less than 150, Max Dose: 15 mg/hr, Route: IV, Dosing Weight 125.057 kg, Total Volume: 200, Start date: 02/20/16 5:51:00 CDT, Duration: 30 day,... Inactive 02/20/2016 [facility] niCARdipine 40 mg/ NS 200 ml IV Soln (premix) 40 mg Notes: Same as: Cardene Concentration: (0.2 mg /1 ml ) Inactive 02/20/2016 [facility] Acetaminophen 325 MG / Hydrocodone Jeanie trate 5 MG Oral Tablet [[place] 5/325] Notes: (Same as: [place] 325/5) Do not ex ceed 4gm/day of acetaminophen. Inactive 02/20/2016 [facility] carvedilol Notes: Give with fo od. (Same As: Coreg) Inactive 02/20/2016 [facility] Zosyn Notes: (Same as: Zosyn) Dosing based on Piperacillin component MEDICATION WASTE Product Size: 3375 mg Product Wasted: __0_ mg Inactive 02/20/2016 [facility] morphine Sulfate Notes: (Same as:MORPhine Sulfate) Inactive 02/20/2016 [facility] Vancomycin 2001 mg: infuse ov er 2.5 hours MEDICATION WASTE Product Size: 1000 mg Product Wasted: ___ mg No Longer Active 02/20/2016 [facility] Insulin regular 60 units) W ASTE: F/P - Black; E - Municipal Trash Bin Stable for 28 days at room temperature Expires in days from Date N o Longer Active 02/20/2016 [facility] Dextrose 50% Syringe 12.5 gm, 25 mL, Route: IVP, Drug Form: INJ, Dosing Weight 112.727, kg, PRN, PRN Blood Glucose Results, Start date: 02/19/16 23:01:00 CDT, Duration: 30 day, Stop date: 03/20/16 22:00:00 IMMUNOLOGY SPECIALIST No Longer Active 02/20/2016 [facility] Glucagon 1 mg, Route: IM, Drug form: PDR/INJ, PRN, Dosing Weight 112.727, kg, PRN Blood Glucose Results, Start date: 02/19/16 23:01:00 CDT, Duration: 30 day, Stop date: 03/20/16 22:00:00 IMMUNOLOGY SPECIALIST No Longer Active 02/20/2016 [facility] Lasix Notes: (Same as: Lasix) MEDICATION WASTE Product Size: 40 mg Product Wasted: _o__ mg Inactive 02/20/2016 [facility] Saline Flush 0.9% Notes: (Same as: BD Posiflush) No Longer Active 02/20/2016 [facility] Calcium Carbonate 500 MG Chewable Tablet Notes: (Same As: Tums) Calcium Carbonate 500 mg = 200 mg elemental calcium Dose = mg calcium carbonate ( mg elemental calcium) No Longer Active 02/20/2016 [facility] sodium phosphate + sodium chloride 0.9% INJ 250 mL 30 mmol, 10 mL, Route: IVPB, PRN, Dosing Weight 112.727, kg, PRN Abnormal Lab Result, Start date: 02/19/16 22:32:00 CDT, Duration: 30 day, Stop date: 03/20/16 21:31:00 IMMUNOLOGY SPECIALIST, FOR ICU USE ONLY No Longer Active 02/20/2016 [facility] potassium phosphate + sodium chloride 0.9% INJ 250 mL Notes: (Same as: K Phosphate.) 1 mMol phoshate has 1.47 mEq potassium Infuse over 4 hours No Longer Active 02/20/2016 [facility] potassium phosphate-sodium phosphate 250 mg-280 mg-160 mg oral powder for reconstitution Notes: (Same as: Phos-NaK) Each 1.5 gm pkt has 250mg phosphorous. Mix w/2.5oz water and stir. No Longer Active 02/20/2016 [facility] Magnesium Oxide Notes: (Same a s: Mag-Ox 400) Magnesium oxide [id number] elemental magnesium Dose=____mg magnesium oxide (___mg elemental magnesium) No Longer Active 02/20/2016 [facility] Magnesium Sulfate Notes: WASTE : F/P - Sink; E - Municipal Trash Bin No Longer Active 02/20/2016 [facility] Calcium Gluconate Notes: WASTE : F/P - Sink; E - Municipal Trash Bin No Longer Active 02/20/2016 [facility] potassium chloride Notes: (Jose Luis e as: KCL) Infuse over 2 hours. No Longer Active 02/20/2016 [facility] Morphine Notes: (Same as:MORPh ine Sulfate) Inactive 02/20/2016 [facility] Nitroglycerin Notes: (Same as: Tridil) Final conc = 0.4 mg/ml. Premix bottle. No Longe r Active 02/20/2016 [facility] heparin additive 25,000 unit [18 unit/kg /hr] + Premix Diluent Dextrose 5% 500 mL 500 mL, Rate: 29.52 ml/hr, Infuse over: 16.9 hr, Route: IV, Dosing Weight 82 kg, Total Volume: 500 mL, Start date: 02/19/16 18:27:00 CDT, Duration: 30 day, Stop date: 03/20/16 18:26:00 IMMUNOLOGY SPECIALIST No Longer Active 02/19/2016 [facility] Heparin - one time bolus for DVT/PE 6,600 unit, Route: IVP, Drug form: INJ, ONCE, Dosing Weight 112.727, kg, Priority: STAT, Start date: 02/19/16 18:27:00 CDT, Stop date: 02/19/16 18:27:00 CDT Inactive 02/19/2016 [facility] Heparin 40 unit/kg Bolus (Heparin Dosing Weight) Route: IVP, PRN, 3,300 unit, 3.3 mL, Drug form: INJ, PRN, Heparin Protocol, Start date: 02/19/16 18:27:00 CDT Stop date: 03/20/16 17:26:00 IMMUNOLOGY SPECIALIST, 30 day No Longer Active 02/19/2016 [facility] Heparin 80 unit/kg Bolus (Heparin Dosing Weight) Route: IVP, PRN, 6,600 unit, 6.6 mL, Drug form: INJ, PRN, Heparin Protocol, Start date: 02/19/16 18:27:00 CDT Stop date: 03/20/16 17:26:00 IMMUNOLOGY SPECIALIST, 30 day No Longer Active 02/19/2016 [facility] Acetaminophen 325 MG / Hydrocodone Jeanie trate 5 MG Oral Tablet Notes: (Same as: [place] 325/5) Do not ex ceed 4gm/day of acetaminophen. Inactive 02/02/2016 [facility] Sodium Chloride 0.154 MEQ/ML Injectable Solution 1,000 mL, 2,000 ml/hr, Infuse Over: 30 minutes, Route: IV, ONCE, Priority: STAT, Dosing Weight 111.818 kg, Start date: 02/02/16 5:33:00 CDT, Duration: 1 doses or times, Stop date: 02/02/16 5:33:00 CDT Inactive 02/02/2016 [facility] Dilaudid Notes: (Same as: Dila udid) Inactive 02/02/2016 [facility] Lisinopril Notes: (Same as: Pr inivil, Zestril) Inactive 02/02/2016 [facility] Amlodipine Notes: (Same as: No rvasc) Inactive 02/02/2016 [facility] Acetaminophen 325 MG / Hydrocodone Jeanie trate 10 MG Oral Tablet [[place] 10/325] Notes: Do not exceed 4gm/day of acetamin ophen. (Same as: [place] 325/10) Inactive 02/02/2016 [facility] carvedilol Notes: Give with fo od. (Same As: Coreg) Inactive 02/02/2016 [facility] gabapentin 300 MG Oral Capsule Notes: (Same as: Neurontin) Inactive 01/11/2016 [facility] gabapentin 300 MG Oral Capsule 300 mg = 1 cap, PO, BID, # 60 cap, 0 Refill(s) Active 01/11/2016 [facility] Morphine Notes: (Same as:MORPh ine Sulfate) Inactive 01/11/2016 [facility] Morphine Notes: (Same as:MORPh ine Sulfate) Inactive 01/11/2016 [facility] Acetaminophen 325 MG / Hydrocodone Jeanie trate 5 MG Oral Tablet Notes: (Same as: [place] 325/5) Do not ex ceed 4gm/day of acetaminophen. Inactive 01/11/2016 [facility] minocycline 100 mg oral capsule 100 mg = 1 cap, PO, [id number], X 8 day, # 8 cap, 0 Refill(s) Active 01/08/2016 [facility] Lidocaine 0.05 MG/MG Transdermal Patch 1 patch, TOP, Daily, # 30 patch, 0 Refill(s) Active 01/08/2016 [facility] carvedilol 25 mg oral tablet 2 5 mg = 1 tab, PO, BID, # 60 tab, 3 Refill(s) Active 01/08/2016 [facility] atorvastatin 40 mg oral tablet 40 mg = 1 tab, PO, Bedtime, # 90 tab, 0 Refill(s) Active 01/08/2016 [facility] insulin detemir 100 UNT/ML Injectable So lution [Levemir] 30 unit, SUB-Q, Daily, # 3 mL, 0 Refill(s) Active 01/08/2016 [facility] amLODIPine 10 mg oral tablet 1 0 mg = 1 tab, PO, Daily, # 90 tab, 0 Refill(s) Active 01/08/2016 [facility] Alprazolam 0.5 MG Oral Tablet [Xanax] 0.5 mg = 1 tab, PO, TID, PRN Anxiety, X 7 day, # 21 tab, 0 Refill(s) Active 01/08/2016 [facility] tramadol hydrochloride 50 MG Oral Tablet [Ultram] 100 mg = 2 tab, PO, Q6H, X 7 day, # 56 tab, 0 Refill(s) Active 01/08/2016 [facility] gabapentin 300 MG Oral Capsule 300 mg = 1 cap, PO, Q12H, # 60 cap, 3 Refill(s) Active 01/08/2016 [facility] Acetaminophen 300 MG / Codeine Phosphate 30 MG Oral Tablet 2 tab, PO, Q4H, PRN Pain Score 4-6, X 7 day, # 84 tab, 0 Refill(s) Active 01/08/2016 [facility] 3 ML Insulin, Aspart, Human 100 UNT/ML P en Injector [NovoLog] 10 unit, SUB-Q, TID-Before Meals, # 3 mL , 0 Refill(s) Active 01/08/2016 [facility] lisinopril 10 mg oral tablet 1 0 mg = 1 tab, PO, Daily, # 90 tab, 0 Refill(s) Active 01/08/2016 [facility] sertraline 50 mg oral tablet 5 0 mg = 1 tab, PO, Daily, # 30 tab, 0 Refill(s) Active 01/08/2016 [facility] methocarbamol 500 mg oral tablet 1,000 mg = 2 tab, PO, TID, X 7 day, # 42 tab, 0 Refill(s) Active 01/08/2016 [facility] ferrous sulfate 325 MG Oral Tablet 325 mg = 1 tab, PO, BID, # 60 tab, 0 Refill(s) Active 01/08/2016 [facility] Furosemide 20 MG Oral Tablet 2 0 mg = 1 tab, PO, BID, # 60 tab, 0 Refill(s) Active 01/08/2016 [facility] Morphine Notes: (Same as:MORPh ine Sulfate) No Longer Active 01/05/2016 [facility] NovoLOG FlexPen Notes: Roll in palms of hands gently; Do not shake vigorously. (Same as: NovoLOG) "single patient use only" WASTE: F/P - Black; E - Municipal Trash Bin Stable for 28 days at room temperature. Expires in days from Date No Longer Active 01/03/2016 [facility] Minocycline Notes: (Same as:Madeline nocin) No milk/antacids/iron. No Longer Active 01/01/2016 [facility] DuoNeb inhalation solution Not es: (Same as: Duoneb) No Longer Active 01/01/2016 [facility] Magnesium Sulfate Notes: WASTE : F/P - Sink; E - Municipal Trash Bin Inactive 12/30/2015 [facility] Cefazolin Notes: Same as: Ancef No Longer Active 12/30/2015 [facility] Magnesium Oxide Notes: (Same a s: Mag-Ox 400) Magnesium oxide [id number] elemental magnesium Dose=____mg magnesium oxide (___mg elemental magnesium) No Longer Active 12/27/2015 [facility] Lactulose Notes: (Same as:Formula Clerk nulac) No Longer Active 12/26/2015 [facility] hydrogen peroxide topical 1.5% solution 1 appl, Route: TOP, BID, Start date: 12/26/15 9:00:00 CDT, Duration: 30 day, Stop date: 01/24/16 17:00:00 CDT No Longe r Active 12/26/2015 [facility] Acetaminophen 325 MG / Hydrocodone Jeanie trate 5 MG Oral Tablet [[place] 5/325] Notes: (Same as: [place] 325/5) Do not ex ceed 4gm/day of acetaminophen. Inactive 12/25/2015 [facility] Haldol Notes: (Same as: Haldol) Inactive 12/25/2015 [facility] Miralax Notes: Dissolve in 8 o z of water or juice. (Same as: Miralax) No Longer Active 12/25/2015 [facility] sennosides, [place] Notes: (Same a s: Senokot) No Longer Active 12/24/2015 [facility] Dulcolax Laxative Notes: (Same As: Dulcolax, [place]isco-Lax) Inactive 12/24/2015 [facility] Lactulose Notes: (Same as:Formula Clerk nulac) Inactive 12/24/2015 [facility] Lasix Notes: (Same as: Lasix) May cause GI upset. Give with food or milk. No Longer Active 12/22/2015 [facility] Docusate Sodium 100 MG Oral Capsule [Colace] 100 mg, 1 cap, Route: PO, BID, Dosing Weight 113.18, kg, Start date: 12/22/15 9:00:00 CDT, Duration: 30 day, Stop date: 01/20/16 17:00:00 CDT No Longer Active 12/22/2015 [facility] ferrous sulfate Notes: Give wi th food. iron elemental [id number] as ferrous sulfate Dose=___mg elemental iron No Longer Active 12/22/2015 [facility] NovoLOG FlexPen Notes: Roll in palms of hands gently; Do not shake vigorously. (Same as: NovoLOG) "single patient use only" WASTE: F/P - Black; E - Municipal Trash Bin Stable for 28 days at room temperature. Expires in days from Date No Longer Active 12/07/2015 [facility] Sodium Chloride 0.9% IV 250 mL , Route: IVPB, Start date: 12/07/15 13:37:00 CDT, Duration: 30 day, Stop date: 01/06/16 13:36:00 CDT, PRN Line Flush No Longer Active 12/07/2015 [facility] BD Normal Saline Flush Notes: (Same as: BD Posiflush) No Longer Active 12/07/2015 [facility] Sodium Chloride 0.154 MEQ/ML Injectable Solution 1,000 mL, Rate: 75 ml/hr, Infuse over: 13.3 hr, Route: IV, Dosing Weight 113.18 kg, Total Volume: 1,000, Start date: 12/06/15 16:49:00 CDT, Duration: 30 day, Stop date: 01/05/16 16:48:00 CDT No Longer Active 12/06/2015 [facility] Lisinopril Notes: (Same as: Pr inivil, Zestril) No Longer Active 12/06/2015 [facility] Alprazolam 0.5 MG Oral Tablet [Xanax] Notes: With food or milk (Same as: Xanax) No Longer Active 12/02/2015 [facility] Lasix Notes: (Same as: Lasix) May cause GI upset. Give with food or milk. No Longer Active 11/30/2015 [facility] Lasix Notes: (Same as: Lasix) MEDICATION WASTE Product Size: 40 mg Product Wasted: ___ mg Inactive 11/29/2015 [facility] Albuterol 0.833 MG/ML / Ipratropium Brom winifred 0.167 MG/ML Inhalant Solution Notes: (Same as: Duoneb) No Longer Active 11/29/2015 [facility] methylPREDNISolone SODium SUCCinate Notes: (Same as:Solu-MEDROL, A-Methapred) Inactive 11/29/2015 [facility] remove patch Notes: Remove pat ch 12 hours after application each day. No Longe r Active 11/29/2015 [facility] Lidocaine 0.05 MG/MG Transdermal Patch Notes: Apply only once for up to 12 hours in a 24-hour period (12 hours on and 12 hours off). (Same as: Lidoderm) "Remove old patch before application of new patch" No Longer Active 11/28/2015 [facility] Docusate Sodium 100 MG Oral Capsule Notes: (Same as: Colace) (Do Not Crush) No Longer Active 11/28/2015 [facility] carvedilol Notes: Give with fo od. (Same As: Coreg) No Longer Active 11/28/2015 [facility] Aspirin 81 MG Enteric Coated Tablet Notes: Do not crush or chew. (Same As: Ecotrin) No Longer Active 11/28/2015 [facility] Amlodipine Notes: (Same as: No rvasc) No Longer Active 11/28/2015 [facility] Levemir Notes: Same as Levemir Do not hold insulin without contacting prescriber WASTE: F/P - Black; E - Municipal Trash Bin "single patient use only" No Longer Active 11/28/2015 [facility] Sertraline Notes: (Same as: Z oloft) No Longer Active 11/28/2015 [facility] Methocarbamol Notes: (Same as: Robaxin) No Longer Active 11/28/2015 [facility] Menthol 0.0044 MG/MG / Zinc Oxide 0.2 MG /MG Topical Ointment [Calmoseptine Ointment] Notes: (Same as: Calmoseptine) No Longer Active 11/28/2015 [facility] Insulin, Aspart, Human Notes: Roll in palms of hands gently; Do not shake vigorously. (Same as: NovoLOG) "single patient use only" WASTE: F/P - Black; E - Municipal Trash Bin Stable for 28 days at room temperature. Expires in days from Date No Longer Active 11/28/2015 [facility] heparin Notes: porcine heparin No Longer Active 11/28/2015 [facility] tramadol hydrochloride 50 MG Oral Tablet [Ultram] Notes: Not to exceed 400mg/day. (Same As: Ultram) No Longer Active 11/28/2015 [facility] Insulin, Aspart, Human Notes: Roll in palms of hands gently; Do not shake vigorously. (Same as: NovoLOG) "single patient use only" WASTE: F/P - Black; E - Municipal Trash Bin Stable for 28 days at room temperature. Expires in days from Date No Longer Active 11/28/2015 [facility] Dextrose 50% Syringe 25 gm, 50 mL, Route: IVP, Drug Form: INJ, Dosing Weight 113.182, kg, PRN, PRN Blood Glucose Results, Start date: 11/27/15 23:08:00 CDT, Duration: 30 day, Stop date: 01/26/16 23:07:00 CDT No Longer Active 11/28/2015 [facility] Glucagon 1 mg, Route: IM, Drug form: PDR/INJ, PRN, Dosing Weight 113.182, kg, PRN Blood Glucose Results, Start date: 11/27/15 23:08:00 CDT, Duration: 30 day, Stop date: 01/26/16 23:07:00 CDT No Longer Active 11/28/2015 [facility] acetaminophen-codeine 300 mg-30 mg oral tablet Notes: Do not exceed 4gm/day of acetaminophen. (Same as: Tylenol with Codeine # 3) No Longer Active 11/28/2015 [facility] gabapentin 300 MG Oral Capsule Notes: (Same as: Neurontin) No Longer Active 11/28/2015 [facility] atorvastatin Notes: (Same as: Lipitor) No Longer Active 11/28/2015 [facility] Cefazolin Notes: (Same As: Anc ef, Kefzol) MEDICATION WASTE Product Size: 1000 mg Product Wasted: ___ mg No Longer Active 11/28/2015 [facility] Insulin, Aspart, Human Notes: Roll in palms of hands gently; Do not shake vigorously. (Same as: NovoLOG) "single patient use only" WASTE: F/P - Black; E - Municipal Trash Bin Stable for 28 days at room temperature. Expires in days from Date Inactive 11/28/2015 [facility] Dextrose 50% Syringe 12.5 gm, 25 mL, Route: IVP, Drug Form: INJ, Dosing Weight 113.182, kg, PRN, PRN Blood Glucose Results, Start date: 11/27/15 20:22:00 CDT, Duration: 30 day, Stop date: 12/27/15 20:21:00 CDT Inactive 11/28/2015 [facility] Glucagon 1 mg, Route: IM, Drug form: PDR/INJ, PRN, Dosing Weight 113.182, kg, PRN Blood Glucose Results, Start date: 11/27/15 20:22:00 CDT, Duration: 30 day, Stop date: 12/27/15 20:21:00 CDT Inactive 11/28/2015 [facility] Docusate Sodium 100 MG Oral Capsule [Colace] Notes: (Same as: Colace) (Do Not Crush) No Longer Active 11/28/2015 [facility] Trazodone Notes: (Same As: Caden yrel) No Longer Active 11/28/2015 [facility] Maalox Advanced Regular Strength SUSP Notes: (aluminum hydroxide-magnesium hyd-simethicone [id number]/5ml 30 ml ud STEPHANIE) No Longer Active 11/28/2015 [facility] Famotidine Notes: (Same as: Pe pcid) No Longer Active 11/28/2015 [facility] Acetaminophen 325 MG / Hydrocodone Jeanie trate 5 MG Oral Tablet Notes: (Same as: [place] 325/5) Do not ex ceed 4gm/day of acetaminophen. No Longer Active 11/28/2015 [facility] Acetaminophen Notes: Do not ex ceed 4 gm/day. (Same as: Tylenol) No Longer Active 11/28/2015 [facility] Ondansetron Notes: (Same as: Barron cain) MEDICATION WASTE Product Size: 4 mg Product Wasted: ___ mg No Longer Active 11/28/2015 [facility] Morphine Notes: (Same as:MORPh ine Sulfate) No Longer Active 11/28/2015 [facility] acetaminophen 325 mg oral tablet Notes: Do not exceed 4 gm/day. (Same as: Tylenol) No Longer Active 11/28/2015 [facility] Hydralazine Notes: (Same as: A presoline) Push over 5 minutes No Longer Active 11/28/2015 [facility] trolamine salicylate 100 MG/ML Topical Cream Notes: (Same As: Aspercreme, Myoflex) No Longer Active 11/28/2015 [facility] Trazodone Hydrochloride 50 MG Oral Tablet Notes: (Same As: Desyrel) No Longer Active 11/28/2015 [facility] Melatonin Notes: (Same as: Sydney atonin) No Longer Active 11/28/2015 [facility] Hydroxyzine Hydrochloride 25 MG Oral Capsule Notes: (Same as: Atarax) Avoid alcohol. No Longer Active 11/28/2015 [facility] hydrocortisone topical 1% cream 1 appl, Route: TOP, BID, Drug form: CRM, PRN Rash, Start date: 11/27/15 20:13:00 CDT, Duration: 30 day, Stop date: 01/26/16 20:12:00 CDT No Longer Active 11/28/2015 [facility] Diphenhydramine Hydrochloride 25 MG Disi ntegrating Tablet Notes: (Same as: Benadryl) No Longer Active 11/28/2015 [facility] Alprazolam 0.5 MG Oral Tablet [Xanax] Notes: With food or milk (Same as: Xanax) No Longer Active 11/28/2015 [facility] Acetaminophen 300 MG / Codeine Phosphate 30 MG Oral Tablet [Tylenol with Codeine #3] Notes: Do not exceed 4gm/day of acetamin ophen. (Same as: Tylenol with Codeine # 3) No Longer Active 11/28/2015 [facility] Hydroxyzine Hydrochloride 25 MG Oral Capsule 25 mg = 1 cap, PO, Daily, PRN Insomnia, 0 Refill(s) On Hold 11/27/2015 [facility] hydrocortisone topical 1% cream 1 appl, TOP, BID, PRN Rash, 0 Refill(s) On Hold 11/27/2015 [facility] hydrALAZINE 20 mg/mL injectable solution 190, 0 Refill(s) On Hold 11/27/2015 [facility] heparin 7,500 unit = 1.5 mL, S UB-Q, Q8H, 0 Refill(s) On Hold 11/27/2015 [facility] Acetaminophen 300 MG / Codeine Phosphate 30 MG Oral Tablet [Tylenol with Codeine #3] 1 - 2 tab, PO, Q4H, PRN Pain, X 4 day, # 36 tab, 0 Refill(s) On Hold 11/27/2015 [facility] gabapentin 300 MG Oral Capsule 300 mg = 1 cap, PO, Q12H, 0 Refill(s) On Hold 11/27/2015 [facility] Docusate Sodium 100 MG Oral Capsule 100 mg = 1 cap, PO, BID, 0 Refill(s) On Hold 11/27/2015 [facility] diphenhydrAMINE 25 mg oral capsule 25 mg = 1 cap, PO, Bedtime, PRN Insomnia, 0 Refill(s) On Hold 11/27/2015 [facility] ceFAZolin 1 g injection 1 gm, IVPB, ABXQ8H, 0 Refill(s) On Hold 11/27/2015 [facility] atorvastatin 40 mg oral tablet 40 mg = 1 tab, PO, Bedtime, 0 Refill(s) On Hold 11/27/2015 [facility] Alprazolam 0.5 MG Oral Tablet [Xanax] 0.5 mg = 1 tab, PO, TID, PRN Anxiety, 0 Refill(s) On Hold 11/27/2015 [facility] acetaminophen 325 mg oral tablet 100.4 F, 0 Refill(s) On Hold 11/27/2015 [facility] methocarbamol 500 mg oral tablet 1,000 mg = 2 tab, PO, TID, 0 Refill(s) On Hold 11/27/2015 [facility] Menthol 0.0044 MG/MG / Zinc Oxide 0.2 MG /MG Topical Ointment [Calmoseptine Ointment] 1 appl, TOP, BID, 0 Refill(s) On Hold 11/27/2015 [facility] melatonin 3 mg oral tablet 3 m g = 1 tab, PO, Bedtime, PRN Sleep, 0 Refill(s) On Hold 11/27/2015 [facility] Lidocaine 0.05 MG/MG Transdermal Patch 1 patch, TOP, Daily, 0 Refill(s) On Hold 11/27/2015 [facility] Insulin, Aspart, Human 10 unit , SUB-Q, TID-Before Meals, 0 Refill(s) On Hold 11/27/2015 [facility] sertraline 50 mg oral tablet 5 0 mg = 1 tab, PO, Daily, 0 Refill(s) On Hold 11/27/2015 [facility] tramadol hydrochloride 50 MG Oral Tablet [Ultram] 100 mg = 2 tab, PO, Q6H, 0 Refill(s) On Hold 11/27/2015 [facility] Trazodone Hydrochloride 50 MG Oral Tablet 150 mg = 3 tab, PO, Bedtime, PRN Insomnia, 0 Refill(s) On Hold 11/27/2015 [facility] trolamine salicylate 100 MG/ML Topical Cream 1 appl, TOP, TID, PRN Pain Score 1-3, 0 Refill(s) On Hold 11/27/2015 [facility] Morphine Notes: (Same as:MORPh ine Sulfate) Inactive 11/27/2015 [facility] trolamine salicylate 100 MG/ML Topical Cream Notes: (Same As: Aspercreme, Myoflex) Inactive 11/27/2015 [facility] hydrocortisone topical 1% cream 1 appl, Route: TOP, BID, Drug form: CRM, PRN Rash, Start date: 11/26/15 12:14:00 CDT, Duration: 30 day, Stop date: 12/26/15 12:13:00 CDT No Longer Active 11/26/2015 [facility] Hydrocortisone butyrate 1 MG/ML Topical Cream 1 appl, Route: TOP, BID, PRN Rash, Start date: 11/26/15 10:47:00 CDT, Duration: 30 day, Stop date: 12/26/15 10:46:00 CDT Inactive 11/26/2015 [facility] sodium chloride 0.9% 1000 ml INJ 1,000 mL 1,000 mL, Rate: 150 ml/hr, Infuse over: 6.7 hr, Route: IV, Dosing Weight 120.455 kg, Total Volume: 1,000, Start date: 11/25/15 13:47:00 CDT, Duration: 1 doses or times, Stop date: 11/25/15 20:28:00 CDT Inactive 11/25/2015 [facility] Hydroxyzine Notes: (Same as: V istaril) No Longer Active 11/24/2015 [facility] Benzocaine 15 MG / Menthol 3.6 MG Lozeng e [Cepacol Sore Throat Pain Relief 15/3.6] 1 lozenge, Route: MUCOUS MEM, Drug Form: MARY, Dosing Weight 120.455, kg, Q2H, PRN Sore Throat, Start date: 11/24/15 11:49:00 CDT, Duration: 30 day, Stop date: 12/24/15 11:48:00 CDT Inactive 11/24/2015 [facility] sodium chloride 0.9% 1000 ml INJ 1,000 mL 1,000 mL, Rate: 500 ml/hr, Infuse over: 2 hr, Route: IV, Dosing Weight 120.455 kg, Total Volume: 1,000, Start date: 11/24/15 8:08:00 CDT, Duration: 2 hr, Stop date: 11/24/15 10:07:00 CDT Inactive 11/24/2015 [facility] Dilaudid Notes: Same as: Dilau did No Longer Active 11/23/2015 [facility] sodium chloride 0.9% 1000 ml INJ 1,000 mL 1,000 mL, Rate: 500 ml/hr, Infuse over: 2 hr, Route: IV, Dosing Weight 120.455 kg, Total Volume: 1,000, Start date: 11/23/15 7:37:00 CDT, Duration: 2 hr, Stop date: 11/23/15 9:36:00 CDT Inactive 11/23/2015 [facility] tramadol hydrochloride 50 MG Oral Tablet [Ultram] Notes: Not to exceed 400mg/day. (Same As: Ultram) No Longer Active 11/23/2015 [facility] Morphine Notes: (Same as:MORPh ine Sulfate) Inactive 11/23/2015 [facility] lidocaine topical Notes: (Same as: Xylocaine) No Longer Active 11/22/2015 [facility] Lidocaine 40 MG/ML Topical Cream 1 appl, Route: TOP, BID, Drug form: CRM, Start date: 11/22/15 11:30:00 CDT, Duration: 30 day, Stop date: 12/22/15 9:00:00 CDT Inactive 11/22/2015 [facility] Trazodone Notes: (Same As: Caden yrel) No Longer Active 11/21/2015 [facility] Tylenol Notes: Do not exceed 4 gm/day. (Same as: Tylenol) No Longer Active 11/21/2015 [facility] Dilaudid Notes: Same as: Dilau did Inactive 11/21/2015 [facility] tramadol hydrochloride 50 MG Oral Tablet [Ultram] Notes: Not to exceed 400mg/day. (Same As: Ultram) No Longer Active 11/21/2015 [facility] Dilaudid Notes: Same as: Dilau did No Longer Active 11/20/2015 [facility] sodium chloride 0.9% 1000 ml INJ 1,000 mL 1,000 mL, Rate: 500 ml/hr, Infuse over: 2 hr, Route: IV, Dosing Weight 120.455 kg, Total Volume: 1,000, Start date: 11/20/15 7:57:00 CDT, Duration: 1 doses or times, Stop date: 11/20/15 9:56:00 CDT Inactive 11/20/2015 [facility] sterile water Notes: For recon stitution of drugs only Inactive 11/19/2015 [facility] Alteplase Notes: "Syringe for catheter clearance or interventional radiology use. Reconstitute each vial of Cathflo Activase with 2.2 ml Sterile Water resulting in a 1 mg/ml solution. Stable for 8 hours only. (Same as: Activase) MEDICATION WASTE Product Size: 2 mg Product Wasted: ___ mg Inactive 11/19/2015 [facility] Alteplase Notes: "Syringe for catheter clearance or interventional radiology use. Reconstitute each vial of Cathflo Activase with 2.2 ml Sterile Water resulting in a 1 mg/ml solution. Stable for 8 hours only. (Same as: Activase) MEDICATION WASTE Product Size: 2 mg Product Wasted: ___ mg Inactive 11/19/2015 [facility] Menthol 0.0044 MG/MG / Zinc Oxide 0.2 MG /MG Topical Ointment [Calmoseptine Ointment] Notes: (Same as: Calmoseptine) No Longer Active 11/18/2015 [facility] Dilaudid Notes: Same as: Dilau did Inactive 11/18/2015 [facility] Dilaudid Notes: Same as: Dilau did Inactive 11/18/2015 [facility] gabapentin 300 MG Oral Capsule Notes: (Same as: Neurontin) No Longer Active 11/18/2015 [facility] Dilaudid Notes: Same as: Dilau did Inactive 11/18/2015 [facility] remove patch Notes: Remove pat ch 12 hours after application each day. No Longe r Active 11/18/2015 [facility] Lidocaine 0.05 MG/MG Transdermal Patch Notes: Apply only once for up to 12 hours in a 24-hour period (12 hours on and 12 hours off). (Same as: Lidoderm) "Remove old patch before application of new patch" No Longer Active 11/17/2015 [facility] Dilaudid Notes: Same as: Dilau did Inactive 11/17/2015 [facility] Dilaudid Notes: Same as: Dilau did Inactive 11/17/2015 [facility] Dilaudid Notes: Same as: Dilau did Inactive 11/16/2015 [facility] Morphine Notes: (Same as:MORPh ine Sulfate) Inactive 11/16/2015 [facility] Furosemide 20 MG Oral Tablet [Lasix] Notes: (Same as: Lasix) May cause GI upset. Give with food or milk. No Longer Active 11/15/2015 [facility] Morphine Notes: (Same as:MORPh ine Sulfate) Inactive 11/15/2015 [facility] Dilaudid Notes: Same as: Dilau did Inactive 11/13/2015 [facility] Saline Flush 0.9% Notes: (Same as: BD Posiflush) No Longer Active 11/11/2015 [facility] Lidocaine Hydrochloride 10 MG/ML Injectable Solution Notes: (Same as: Xylocaine) No Longer Active 11/11/2015 [facility] Saline Flush 0.9% Notes: (Same as: BD Posiflush) No Longer Active 11/11/2015 [facility] Dilaudid Notes: Same as: Dilau did Inactive 11/11/2015 [facility] Insulin, Aspart, Human Notes: Roll in palms of hands gently; Do not shake vigorously. (Same as: NovoLOG) "single patient use only" WASTE: F/P - Black; E - Municipal Trash Bin Stable for 28 days at room temperature. Expires in days from Date No Longer Active 11/11/2015 [facility] Robaxin Notes: (Same as:Robaxi n) No Longer Active 11/11/2015 [facility] Insulin, Aspart, Human Notes: Roll in palms of hands gently; Do not shake vigorously. (Same as: NovoLOG) "single patient use only" WASTE: F/P - Black; E - Municipal Trash Bin Stable for 28 days at room temperature. Expires in days from Date No Longer Active 11/09/2015 [facility] Flagyl Notes: (Same as: Flagyl ) Take with food/ avoid alcohol No Longer Active 11/09/2015 [facility] Ancef Notes: (Same As: Ancef, Evelyne) MEDICATION WASTE Product Size: 1000 mg Product Wasted: ___ mg No Longer Active 11/08/2015 [facility] Morphine Notes: (Same as:MORPh ine Sulfate) Inactive 11/08/2015 [facility] Levemir FlexPen Notes: Same as Levemir Do not hold insulin without contacting prescriber WASTE: F/P - Black; E - Municipal Trash Bin "single patient use only" No Longer Active 11/07/2015 [facility] Insulin, Aspart, Human Notes: Roll in palms of hands gently; Do not shake vigorously. (Same as: NovoLOG) "single patient use only" WASTE: F/P - Black; E - Municipal Trash Bin Stable for 28 days at room temperature. Expires in days from Date No Longer Active 11/06/2015 [facility] Melatonin Notes: (Same as: [place] atonin) No Longer Active 11/06/2015 [facility] Alprazolam 0.5 MG Oral Tablet [Xanax] Notes: With food or milk (Same as: Xanax) No Longer Active 11/06/2015 [facility] Zoloft Notes: (Same as: Zolof t) No Longer Active 11/06/2015 [facility] Insulin, Aspart, Human Notes: Roll in palms of hands gently; Do not shake vigorously. (Same as: NovoLOG) "single patient use only" WASTE: F/P - Black; E - Municipal Trash Bin Stable for 28 days at room temperature. Expires in days from Date No Longer Active 11/06/2015 [facility] Dextrose 50% Syringe 25 gm, 50 mL, Route: IVP, Drug Form: INJ, Dosing Weight 120.455, kg, PRN, PRN Blood Glucose Results, Start date: 11/06/15 7:37:00 CDT, Duration: 30 day, Stop date: 12/06/15 7:36:00 CDT No Longer Active 11/06/2015 [facility] Glucagon 1 mg, Route: IM, Drug form: PDR/INJ, PRN, Dosing Weight 120.455, kg, PRN Blood Glucose Results, Start date: 11/06/15 7:37:00 CDT, Duration: 30 day, Stop date: 12/06/15 7:36:00 CDT No Longer Active 11/06/2015 [facility] Benadryl Notes: (Same as: [place] dryl) No Longer Active 11/06/2015 [facility] carvedilol Notes: Give with fo od. (Same As: Coreg) No Longer Active 11/06/2015 [facility] Ondansetron 4 mg, Route: IVP, ONCE, Dosing Weight 120.455, kg, PRN Nausea & Vomiting, Start date: 11/05/15 17:27:00 CDT Inactive 11/05/2015 [facility] Flumazenil 0.2 mg, Route: IVP, PRN, Dosing Weight 120.455, kg, PRN Benzodiazepine Reversal, Initial dose, Start date: 11/05/15 17:27:00 CDT, Duration: 30 day, Stop date: 12/05/15 17:26:00 CDT Inactive 11/05/2015 [facility] Naloxone 0.4 mg, Route: IVP, Q 2MIN, Dosing Weight 120.455, kg, PRN Narcotic Reversal, Start date: 11/05/15 17:27:00 CDT, Duration: 8 doses or times, Stop date: Limited # of times Inactive 11/05/2015 [facility] Hydromorphone 0.5 mg, Route: I [employer], Q5Min, Dosing Weight 120.455, kg, PRN Pain Score 7-10, Start date: 11/05/15 17:27:00 CDT, Duration: 4 doses or times, Stop date: Limited # of times Inactive 11/05/2015 [facility] Labetalol 10 mg, Route: IVP, Q 5Min, Dosing Weight 120.455, kg, PRN Elevated BP, Start date: 11/05/15 17:27:00 CDT, Duration: 5 doses or times, Stop date: Limited # of times Inactive 11/05/2015 [facility] Cefazolin 120 kg Inactive 11/05/2015 [facility] vancomycin + sodium chloride 0.9% INJ 100 mL Notes: TIME CRITICAL MEDICATION (Same As: Vancocin) Inactive 11/05/2015 [facility] Lactated Ringers 1,000 mL 1,00 0 mL, Rate: 100 ml/hr, Infuse over: 10 hr, Route: IV, Dosing Weight 120.455 kg, Total Volume: 1,000, Start date: 11/05/15 0:01:00 CDT, Duration: 10 hr, Stop date: 11/05/15 10:00:00 CDT Inactive 11/05/2015 [facility] heparin Notes: porcine heparin No Longer Active 11/04/2015 [facility] vancomycin + sodium chloride 0.9% INJ 250 mL 2001 mg: infuse over 2.5 hours No Longe r Active 11/04/2015 [facility] Levemir FlexPen Notes: Same as Levemir Do not hold insulin without contacting prescriber WASTE: F/P - Black; E - Municipal Trash Bin "single patient use only" No Longer Active 11/03/2015 [facility] insulin, isophane 5 unit, Rout e: SUB-Q, BID, Dosing Weight 120.455, kg, Start date: 11/03/15 17:00:00 CDT, Duration: 30 day, Stop date: 12/03/15 9:00:00 CDT Inactive 11/03/2015 [facility] Amlodipine Notes: (Same as: No rvasc) No Longer Active 11/03/2015 [facility] carvedilol Notes: Give with fo od. (Same As: Coreg) No Longer Active 11/03/2015 [facility] atorvastatin Notes: (Same as: Lipitor) No Longer Active 11/03/2015 [facility] vancomycin Notes: TIME CRITICA L MEDICATION (Same As: Vancocin) No Longer Active 11/02/2015 [facility] Hydralazine Notes: (Same as: A presoline) Push over 5 minutes No Longer Active 11/02/2015 [facility] Vancomycin 2001 mg: infuse ov er 2.5 hours MEDICATION WASTE Product Size: 1000 mg Product Wasted: ___ mg Inactive 11/02/2015 [facility] Docusate Notes: (Same as: Cola ce) (Do Not Crush) No Longer Active 11/02/2015 [facility] Levemir Notes: Same as Levemir Do not hold insulin without contacting prescriber WASTE: F/P - Black; E - Municipal Trash Bin "single patient use only" No Longer Active 11/02/2015 [facility] Aspirin 81 MG Enteric Coated Tablet Notes: Do not crush or chew. (Same As: Ecotrin) No Longer Active 11/02/2015 [facility] carvedilol Notes: Give with fo od. (Same As: Coreg) Inactive 11/02/2015 [facility] Amlodipine Notes: (Same as: No rvasc) Inactive 11/02/2015 [facility] Morphine Notes: (Same as:MORPh ine Sulfate) Inactive 11/02/2015 [facility] heparin Notes: porcine heparin No Longer Active 11/02/2015 [facility] Morphine 4 mg, Route: IVP, ONC E, Dosing Weight 117.273, kg, Priority: STAT, Start date: 11/02/15 5:59:00 CDT, Stop date: 11/02/15 5:59:00 CDT Inactive 11/02/2015 [facility] Flagyl Notes: (Same as: Flagyl ) Avoid alcohol. No Longer Active 11/02/2015 [facility] cefepime Notes: (Same As: Jose C duckworth) MEDICATION WASTE Product Size: 1000 mg Product Wasted: ___ mg No Longer Active 11/02/2015 [facility] sodium chloride 0.9% 1000 ml INJ 1,000 mL 1,000 mL, Rate: 100 ml/hr, Infuse over: 10 hr, Route: IV, Dosing Weight 117.273 kg, Total Volume: 1,000, Start date: 11/02/15 4:43:00 CDT, Duration: 30 day, Stop date: 12/02/15 4:42:00 CDT No Longer Active 11/02/2015 [facility] Sodium Chloride 0.9% IV 1000 mL 1,000 mL, Rate: 100 ml/hr, Infuse over: 10 hr, Route: IV, Dosing Weight 117.273 kg, Total Volume: 1,000, Start date: 11/02/15 4:12:00 CDT, Duration: 30 day, Stop date: 12/02/15 4:11:00 CDT Inactive 11/02/2015 [facility] Dextrose 50% Syringe 25 gm, 50 mL, Route: IVP, Drug Form: INJ, Dosing Weight 117.273, kg, PRN, PRN Blood Glucose Results, Start date: 11/02/15 4:10:00 CDT, Duration: 30 day, Stop date: 12/02/15 4:09:00 CDT No Longer Active 11/02/2015 [facility] Glucagon 1 mg, Route: IM, Drug form: PDR/INJ, PRN, Dosing Weight 117.273, kg, PRN Blood Glucose Results, Start date: 11/02/15 4:10:00 CDT, Duration: 30 day, Stop date: 12/02/15 4:09:00 CDT No Longer Active 11/02/2015 [facility] Insulin, Aspart, Human Notes: Roll in palms of hands gently; Do not shake vigorously. (Same as: NovoLOG) "single patient use only" WASTE: F/P - Black; E - Municipal Trash Bin Stable for 28 days at room temperature. Expires in days from Date No Longer Active 11/02/2015 [facility] Acetaminophen Notes: Do not ex ceed 4 gm/day. (Same as: Tylenol) No Longer Active 11/02/2015 [facility] Acetaminophen 325 MG / Hydrocodone Jeanie trate 5 MG Oral Tablet Notes: (Same as: [place] 325/5) Do not ex ceed 4gm/day of acetaminophen. No Longer Active 11/02/2015 [facility] Ondansetron Notes: (Same as: Barron cain) MEDICATION WASTE Product Size: 4 mg Product Wasted: ___ mg No Longer Active 11/02/2015 [facility] amLODIPine 10 mg oral tablet 1 0 mg = 1 tab, PO, Daily, # 90 tab, 0 Refill(s) On Hold 11/02/2015 [facility] Aspirin 81 MG Enteric Coated Tablet 81 mg = 1 tab, PO, Daily, # 90 tab, 3 Refill(s) O n Hold 11/02/2015 [facility] carvedilol 25 mg oral tablet 2 5 mg = 1 tab, PO, BID, # 180 tab, 0 Refill(s) On Hold 11/02/2015 [facility] Furosemide 20 MG Oral Tablet [Lasix] 20 mg = 1 tab, PO, Daily, # 30 tab, 0 Refill(s) N o Longer Active 11/02/2015 [facility] Levemir 30 unit, SUB-Q, Daily, 0 Refill(s) On Hold 11/02/2015 [facility] Acetaminophen 325 MG / Hydrocodone Jeanie trate 5 MG Oral Tablet 1 tab, Route: PO, Drug Form: TAB, Dosing Weight 117.273, kg, ONCE, STAT, Start date: 11/02/15 3:00:00 CDT, Stop date: 11/02/15 3:00:00 CDT Inactive 11/02/2015 [facility] Acetaminophen 325 MG / Hydrocodone Jeanie trate 5 MG Oral Tablet [[place] 5/325] 1 tab, Route: PO, Drug Form: TAB, Dosing Weight 117.273, kg, ONCE, STAT, Start date: 11/02/15 2:51:00 CDT, Stop date: 11/02/15 2:51:00 CDT Inactive 11/02/2015 [facility] Clindamycin 600 mg, Route: IVP B, ONCE, Dosing Weight 117.273, kg, Priority: STAT, Start date: 11/02/15 2:42:00 CDT, Stop date: 11/02/15 2:42:00 CDT Inactive 11/02/2015 [facility] Sodium Chloride 0.154 MEQ/ML Injectable Solution 1,000 mL, 1,000 ml/hr, Infuse Over: 1 hr, Route: IV, 1,000, Drug form: INJ, ONCE, Priority: STAT, Dosing Weight 117.273 kg, Start date: 11/01/15 23:42:00 CDT, Duration: 1 doses or times, Stop date: 11/01/15 23:42:00 CDT Inactive 11/02/2015 [facility] Morphine Notes: (Same as:MORPh ine Sulfate) Inactive 11/02/2015 [facility] Insulin regular 5 unit, Route: SUB-Q, ONCE, Dosing Weight 117.273, kg, Priority: STAT, Start date: 11/01/15 21:53:00 CDT, Stop date: 11/01/15 21:53:00 CDT Inactive 11/02/2015 [facility] Vancomycin 1,000 mg, Route: IV PB, Drug form: INJ, ONCE, Dosing Weight 117.273, kg, Priority: STAT, Start date: 11/01/15 21:52:00 CDT, Stop date: 11/01/15 21:52:00 CDT Inactive 11/02/2015 [facility] Vancomycin 1,000 mg, Route: IV PB, Drug form: INJ, ONCE, Dosing Weight 117.273, kg, Priority: STAT, Start date: 11/01/15 21:23:00 CDT, Stop date: 11/01/15 21:23:00 CDT Inactive 11/02/2015 [facility] Sodium Chloride 0.154 MEQ/ML Injectable Solution 500 mL, 500 ml/hr, Infuse Over: 1 hr, Route: IV, 500, Drug form: INJ, ONCE, Priority: STAT, Dosing Weight 117.273 kg, Start date: 11/01/15 21:23:00 CDT, Duration: 1 doses or times, Stop date: 11/01/15 21:23:00 CDT Inactive 11/02/2015 [facility] Morphine 4 mg, Route: IVP, Mal g form: INJ, ONCE, Dosing Weight 117.273, kg, Priority: STAT, Start date: 11/01/15 21:23:00 CDT, Stop date: 11/01/15 21:23:00 CDT Inactive 11/02/2015 [facility] sodium chloride 0.9% 1000 ml INJ 1,000 mL 1,000 mL, Rate: 999 ml/hr, Infuse over: 1 hr, Route: IV, Dosing Weight 117.273 kg, Total Volume: 1,000, Start date: 11/01/15 20:55:00 CDT, Duration: 1 doses or times, Stop date: 11/01/15 21:54:00 CDT Inactive 11/02/2015 [facility] Zofran Notes: (Same as: Zofran ) MEDICATION WASTE Product Size: 4 mg Product Wasted: 0 mg Inactive 11/02/2015 [facility] Vancomycin 2,345.46 mg, Route: IVPB, Drug form: INJ, ONCE, Dosing Weight 117.273, kg, Priority: STAT, Start date: 11/01/15 20:52:00 CDT, Stop date: 11/01/15 20:52:00 CDT Inactive 11/02/2015 [facility] cefepime Notes: (Same As: Jose C duckworth) MEDICATION WASTE Product Size: 1000 mg Product Wasted: 0 mg Inactive 11/02/2015 [facility] Lovenox Notes: Nurse to ensure documentation of patient education per anticoagulation policy. (Same as: Lovenox) Inactive 11/02/2015 [facility] Sodium Chloride 0.154 MEQ/ML Injectable Solution 3,518.19 mL, 1759.1 ml/hr, Infuse Over: 2 hr, Route: IV, 3,518.19, Drug form: INJ, ONCE, Dosing Weight 117.273 kg, Start date: 11/01/15 20:33:00 CDT, Stop date: 11/01/15 20:33:00 CDT Inactive 11/02/2015 [facility] Acetaminophen Notes: Do not ex ceed 4 gm/day. (Same as: Tylenol) Inactive 11/02/2015 [facility] Sodium Chloride 0.154 MEQ/ML Injectable Solution 1,500 mL, 1,500 ml/hr, Infuse Over: 1 hr, Route: IV, 1,500, Drug form: INJ, ONCE, Priority: STAT, Dosing Weight 117.273 kg, Start date: 11/01/15 20:32:00 CDT, Duration: 1 doses or times, Stop date: 11/01/15 20:32:00 CDT Inactive 11/02/2015 [facility] Saline Flush 0.9% Notes: (Same as: BD Posiflush) No Longer Active 11/02/2015 [facility] Allergies, Adverse Reactions, Alerts Substance Category Reaction Severity Reaction type Status Date Reported Comments Source Tylenol Assertion Swelling of throat Drug allergy Active [facility] [place] Assertion Drug allergy Active [facility] traMADol Assertion Drug allergy Active [facility] Zofran Assertion Drug allergy Active [facility] Phenergan Assertion Drug allergy Active [facility] Immunizations Immunization Date Given Site Status Last Updated Comments Source influenza virus vaccine, inactivated 01/11/2017 Left deltoid completed [facility] 01/08/2016 Left Deltoid completed Christian [facility] influenza virus vaccine, inactivated 01/08/2016 Left deltoid completed Christian [facility] pneumococcal 23-valent vaccine 11/26/2013 Left Deltoid completed Greer [facility] Results Order Name Results Value Reference Range Date Interpretation Comments Source BLOOD BANK RESULTS ABO/Rh A POS 08/18/2019 [facility] BLOOD BANK RESULTS Antibody Scrn Negative (08/18/19 12:10 PM) 08/18/2019 [facility] HEMATOLOGY Hgb 7.6 12.0 - 16.0 08/18/2019 [facility] HEMATOLOGY Hct 23.3 36.0 - 48.0 08/18/2019 [facility] BLOOD BANK RESULTS RBC product Product available 1 (08/18/19 11:25 AM) 08/18/2019 Result Comment: 08/18/2019 1 3:10 [id number]
Robert ZAMORA notified at 08/18/2019 13:10 sm [facility] CHEM PANEL Lactic Acid Lvl 1.1 0.5 - 2.2 08/18/2019 [facility] CHEM PANEL Procalcitonin Lvl 0.37 0.00 - 0.10 08/18/2019 [facility] CHEM [facility] Lactic Acid Lvl 2.2 0.5 - 2.2 08/18/2019 [facility] CHEM PANEL Glucose Lvl 139 70 - 99 08/18/2019 [facility] CHEM PANEL BUN 25 7 - 22 08/18/2019 [facility] CHEM PANEL Creatinine Lvl 5.98 0.50 - 1.40 08/18/2019 [facility] CHEM PANEL Sodium Lvl 137 135 - 145 08/18/2019 [facility] CHEM PANEL Potassium Lvl 3.3 3.5 - 5.1 08/18/2019 [facility] CHEM PANEL Chloride Lvl 100 95 - 109 08/18/2019 [facility] CHEM PANEL CO2 28 24 - 32 08/18/2019 [facility] CHEM PANEL AGAP 12.3 10.0 - 20.0 08/18/2019 [facility] CHEM PANEL Calcium Lvl 8.6 8.5 - 10.5 08/18/2019 [facility] CHEM PANEL eGFR 9 08/18/2019 Result Comment: The eGFR is calculated using the [...] from the National Kidney Disease Education Program (NKDEP) which additionally recommends that when the eGFR is used in patients with extremes of body mass index for purposes of drug dosing, the eGFR should be multiplied by the estimated BMI. [facility] IMMUNOLOGY Coronavirus (COVID-19) NA A Not Detected (08/17/19 9:58 PM) Not Detected 08/18/2019 [facility] IMMUNOLOGY Hep Bs Ag Negat anitra *NA* (08/17/19 6:00 PM) Negative 08/17/2019 [facility] IMMUNOLOGY Hep Bs Ag Negat anitra *NA* (08/17/19 6:00 PM) Negative 08/17/2019 [facility] BLOOD BANK RESULTS ABO/Rh A POS 08/17/2019 [facility] BLOOD BANK RESULTS Antibody Scrn Negative (08/17/19 3:31 PM) 08/17/2019 [facility] CARDIAC ENZYMES Total CK 99 12 - 191 08/17/2019 [facility] CARDIAC ENZYMES Troponin-I 0.02 0.00 - 0.40 08/17/2019 [facility] CHEM PANEL Glucose Lvl 131 70 - 99 [facility] BUN 64 7 - 22 08/17/2019 [facility] CHEM PANEL Creatinine Lvl 12.50 0.50 - 1.40 08/17/2019 [facility] Sodium Lvl 136 135 - 145 08/17/2019 [facility] Potassium Lvl 7.5 3.5 - 5.1 08/17/2019 Result Comment: Critical Result(s) carbone d to Alban Coats RN at 08/17/2019 16:01 by [facility] Read back OK. [facility] CHEM PANEL Chloride Lvl 106 95 - 109 08/17/2019 [facility] CHEM PANEL CO2 22 24 - 32 [facility]/17/[facility] AGAP 15.5 10.0 - 20.0 08/17/2019 [facility] CHEM PANEL Calcium Lvl 8.6 8.5 - 10.5 08/17/2019 [facility] CHEM PANEL B/C Ratio 5 6 - 25 08/17/2019 [facility] CHEM PANEL Total Protein 7.8 6.4 - 8.4 08/17/2019 [facility] CHEM PANEL Albumin Lvl 3.2 3.5 - 5.0 08/17/2019 [facility] CHEM PANEL Globulin 4.6 2.7 - 4.2 08/17/2019 [facility] CHEM PANEL A/G Ratio 0.7 0.7 - 1.6 08/17/2019 [facility] CHEM PANEL ALT 12 0 - 65 08/17/2019 [facility] CHEM PANEL AST 14 0 - 37 08/17/2019 [facility] CHEM PANEL Alk Phos 59 39 - 136 08/17/2019 [facility] CHEM PANEL Bili Total 0.2 0.2 - 1.3 08/17/2019 [facility] CHEM PANEL eGFR 4 08/17/2019 Result Comment: The eGFR is calculated using the [...] from the National Kidney Disease Education Program (NKDEP) which additionally recommends that when the eGFR is used in patients with extremes of body mass index for purposes of drug dosing, the eGFR should be multiplied by the estimated BMI. [facility] HEMATOLOGY PT 13.4 12.0 - 14.7 08/17/2019 [facility] HEMATOLOGY INR 1.02 0.85 - 1.17 08/17/2019 [facility] HEMATOLOGY PTT 29.4 22.9 - 35.8 08/17/2019 [facility] BLOOD BANK RESULTS RBC product Product available 4 (08/17/19 2:51 PM) 08/17/2019 Result Comment: 08/17/2019 1 6:14 [id number]
Blood available, notified Star at _08/17/2019 16:14 by LL_. [facility] CARDIAC ENZYMES Troponin-I 0.02 0.00 - 0.40 08/17/2019 [facility] CARDIAC ENZYMES BNP 648 <=100 pg/mL 08/17/2019 [facility] CHEM PANEL Glucose Lvl 144 70 - 99 08/17/2019 [facility] CHEM PANEL BUN 64 7 - 22 08/17/2019 [facility] CHEM PANEL Creatinine Lvl 12.60 0.50 - 1.40 08/17/2019 [facility] CHEM PANEL Sodium Lvl 137 135 - 145 08/17/2019 [facility] CHEM PANEL Potassium Lvl 6.5 3.5 - 5.1 08/17/2019 Result Comment: Critical Result(s) carbone d to Vikki Ram RN at 08/17/2019 14:43 by [facility]. Read back OK. [facility] CHEM PANEL Chloride Lvl 105 95 - 109 08/17/2019 [facility] CHEM PANEL CO2 23 24 - 32 08/17/2019 [facility] CHEM PANEL AGAP 15.5 10.0 - 20.0 08/17/2019 [facility] CHEM PANEL Calcium Lvl 8.9 8.5 - 10.5 08/17/2019 [facility] CHEM PANEL B/C Ratio 5 6 - 25 08/17/2019 [facility] CHEM PANEL Total Protein 7.5 6.4 - 8.4 08/17/2019 [facility] CHEM PANEL Albumin Lvl 3.2 3.5 - 5.0 08/17/2019 [facility] CHEM PANEL Globulin 4.3 2.7 - 4.2 08/17/2019 [facility] CHEM PANEL A/G Ratio 0.7 0.7 - 1.6 08/17/2019 [facility] CHEM PANEL ALT 12 0 - 65 08/17/2019 [facility] CHEM PANEL AST 11 0 - 37 08/17/2019 [facility] CHEM PANEL Alk Phos 59 39 - 136 [facility]/17/2019 [facility] Bili Total 0.3 0.2 - 1.3 08/17/2019 [facility] CHEM PANEL eGFR 3 08/17/2019 Result Comment: The eGFR is calculated using the [...] from the National Kidney Disease Education Program (NKDEP) which additionally recommends that when the eGFR is used in patients with extremes of body mass index for purposes of drug dosing, the eGFR should be multiplied by the estimated BMI. [facility] ENDOCRINOLOGY S Preg Ne gative *NA* (08/17/19 2:13 PM) Negative 08/17/2019 [facility] HEMATOLOGY WBC 11.5 3.7 - 10.4 08/17/2019 [facility] RBC 2.10 4.20 - 5.40 08/17/2019 [facility] Hgb 6.6 12.0 - 16.0 08/17/2019 Result Comment: Critical Result(s) tona Ram at 08/17/2019 14:23 by Vince Crespo. Read back OK. [facility] HEMATOLOGY Hct 20.7 36.0 - 48.0 08/17/2019 [facility] HEMATOLOGY MCV 99.0 80.0 - 98.0 08/17/2019 [facility] MCH 31.7 27.0 - 31.0 08/17/2019 [facility] MCHC 32.0 32.0 - 36.0 08/17/2019 [facility] HEMATOLOGY RDW 16.9 11.5 - 14.5 08/17/2019 [facility] Platelet 330 133 - 450 08/17/2019 [facility] MPV 7.6 7.4 - 10.4 08/17/2019 [facility] Segs 79.5 45.0 - 75.0 08/17/2019 [facility] Lymphocytes 13.3 20.0 - 40.0 08/17/2019 [facility] Monocytes 4.6 2.0 - 12.0 08/17/2019 [facility] HEMATOLOGY Eosinophils 1.7 0.0 - 4.0 08/17/2019 [facility] HEMATOLOGY Basophils 0.9 0.0 - 1.0 08/17/2019 [facility] HEMATOLOGY Neutrophils # 9.1 1.5 - 8.1 08/17/2019 [facility] HEMATOLOGY Lymphocytes # 1.5 1.0 - 5.5 08/17/2019 [facility] HEMATOLOGY Monocytes # 0.5 0.0 - 0.8 08/17/2019 [facility] HEMATOLOGY Eosinophils # 0.2 0.0 - 0.5 08/17/2019 [facility] HEMATOLOGY Basophils # 0.1 0.0 - 0.2 08/17/2019 [facility] CHEM PANEL Phosphorus 7.8 2.5 - 4.5 01/07/2019 [facility] CHEM PANEL Glucose Lvl 203 70 - 99 01/07/2019 [facility] CHEM PANEL BUN 42 7 - 22 01/07/2019 [facility] CHEM PANEL Creatinine Lvl 9.12 0.50 - 1.40 01/07/2019 [facility] CHEM PANEL Sodium Lvl 137 135 - 145 01/07/2019 [facility] CHEM PANEL Potassium Lvl 4.6 3.5 - 5.1 01/07/2019 [facility] CHEM PANEL Chloride Lvl 107 95 - 109 01/07/2019 [facility] CHEM PANEL CO2 22 24 - 32 01/07/2019 [facility] CHEM PANEL Calcium Lvl 7.7 8.5 - 10.5 01/07/2019 [facility] CHEM PANEL AGAP 12.6 10.0 - 20.0 01/07/2019 [facility] CHEM PANEL eGFR 5 01/07/2019 Result Comment: The eGFR is calculated using the [...] from the National Kidney Disease Education Program (NKDEP) which additionally recommends that when the eGFR is used in patients with extremes of body mass index for purposes of drug dosing, the eGFR should be multiplied by the estimated BMI. [facility] CHEM PANEL Magnesium Lvl 2.0 1.8 - 2.4 01/07/2019 [facility] HEMATOLOGY WBC 7.6 3.7 - 10.4 01/07/2019 [facility] HEMATOLOGY RBC 2.75 4.20 - 5.40 01/07/2019 [facility] HEMATOLOGY Hgb 8.7 12.0 - 16.0 01/07/2019 [facility] HEMATOLOGY Hct 26.2 36.0 - 48.0 01/07/2019 [facility] HEMATOLOGY MCV 95.3 80.0 - 98.0 01/07/2019 [facility] HEMATOLOGY MCH 31.7 27.0 - 31.0 01/07/2019 [facility] HEMATOLOGY MCHC 33.3 32.0 - 36.0 01/07/2019 [facility] HEMATOLOGY RDW 17.2 11.5 - 14.5 01/07/2019 [facility] HEMATOLOGY Platelet 269 133 - 450 01/07/2019 [facility] HEMATOLOGY MPV 8.9 7.4 - 10.4 01/07/2019 [facility] IMMUNOLOGY Hep Bs Ag Negat anitra *NA* (01/06/19 10:45 AM) Negative 01/06/2019 [facility] BACTERIAL - SEROLOGY MRSA by PCR Positive 1 *ABN* (01/06/19 9:07 AM) 01/06/2019 Result Comment: "Significant Findings called to NOAH Johnson at 01/07/2019 02:05 by LF. Read Back OK." [facility] CHEM PANEL Lactic Acid Lvl 1.3 0.5 - 2.2 01/06/2019 [facility] CARDIAC ENZYMES Troponin-I <0.02 0.00 - 0.40 01/06/2019 [facility] CARDIAC ENZYMES BNP 1070 <=100 pg/mL 01/06/2019 [facility] CHEM PANEL Glucose Lvl 217 70 - 99 01/06/2019 [facility] CHEM PANEL BUN 60 7 - 22 01/06/2019 [facility] CHEM PANEL Creatinine Lvl 11.10 0.50 - 1.40 01/06/2019 [facility] CHEM PANEL Sodium Lvl 137 135 - 145 01/06/2019 [facility] CHEM PANEL Potassium Lvl 5.3 3.5 - 5.1 01/06/2019 [facility] CHEM PANEL Chloride Lvl 104 95 - 109 01/06/2019 [facility] CHEM PANEL CO2 24 24 - 32 01/06/2019 [facility] CHEM PANEL Calcium Lvl 7.8 8.5 - 10.5 01/06/2019 [facility] CHEM PANEL Total Protein 7.9 6.4 - 8.4 01/06/2019 [facility] CHEM PANEL Albumin Lvl 3.1 3.5 - 5.0 01/06/2019 [facility] CHEM PANEL ALT 14 0 - 65 01/06/2019 [facility] CHEM PANEL AST 10 0 - 37 01/06/2019 [facility] CHEM PANEL Alk Phos 97 39 - 136 01/06/2019 [facility] CHEM PANEL Bili Total 0.4 0.2 - 1.3 01/06/2019 [facility] CHEM PANEL eGFR 4 01/06/2019 Result Comment: The eGFR is calculated using the [...] from the National Kidney Disease Education Program (NKDEP) which additionally recommends that when the eGFR is used in patients with extremes of body mass index for purposes of drug dosing, the eGFR should be multiplied by the estimated BMI. [facility] CHEM PANEL AGAP 14.3 10.0 - 20.0 01/06/2019 [facility] CHEM PANEL B/C Ratio 5 6 - 25 01/06/2019 [facility] CHEM PANEL Globulin 4.8 2.7 - 4.2 01/06/2019 [facility] CHEM PANEL A/G Ratio 0.6 0.7 - 1.6 01/06/2019 [facility] CHEM PANEL Magnesium Lvl 1.8 1.8 - 2.4 01/06/2019 [facility] CHEM PANEL Phosphorus 9.0 2.5 - 4.5 01/06/2019 [facility] CHEM PANEL Lactic Acid Lvl 0.9 0.5 - 2.2 01/06/2019 [facility] HEMATOLOGY WBC 10.9 3.7 - 10.4 01/06/2019 [facility] HEMATOLOGY RBC 2.92 4.20 - 5.40 01/06/2019 [facility] HEMATOLOGY Hgb 9.4 12.0 - 16.0 01/06/[address] [facility] Hct 27.9 36.0 - 48.0 01/06/2019 [facility] HEMATOLOGY MCV 95.8 80.0 - 98.0 01/06/[address] [facility] MCH 32.2 27.0 - 31.0 01/06/[address] [facility] MCHC 33.6 32.0 - 36.0 01/06/[address] [facility] RDW 16.9 11.5 - 14.5 01/06/[address] [facility] Platelet 306 133 - 450 01/06/[address] [facility] MPV 8.7 7.4 - 10.4 01/06/[address] [facility] PT 13.7 12.0 - 14.7 01/06/[address] [facility] INR 1.07 0.85 - 1.17 01/06/[address] [facility] PTT 34.9 22.9 - 35.8 01/06/[address] [facility] Segs 65.9 45.0 - 75.0 01/06/[address] [facility] Lymphocytes 25.6 20.0 - 40.0 01/06/2019 [facility] HEMATOLOGY Monocytes 4.6 2.0 - 12.0 01/06/2019 [facility] HEMATOLOGY Eosinophils 2.4 0.0 - 4.0 01/06/2019 [facility] HEMATOLOGY Basophils 1.5 0.0 - 1.0 01/06/[address] [facility] Neutrophils # 7.2 1.5 - 8.1 01/06/[address] [facility] Lymphocytes # 2.8 1.0 - 5.5 01/06/[address] [facility] Monocytes # 0.5 0.0 - 0.8 01/06/2019 [facility] HEMATOLOGY Eosinophils # 0.3 0.0 - 0.5 01/06/[address] [facility] Basophils # 0.2 0.0 - 0.2 01/06/[address] [facility] Hct 26.0 36.0 - 48.0 07/25/2018 [facility] HEMATOLOGY Hgb 8.6 12.0 - 16.0 07/25/2018 [facility] ELECTROLYTES AGAP 10.9 10.0 - 20.0 07/24/2018 [facility] ELECTROLYTES eGFR 5 07/24/2018 Result Comment: The eGFR is calculated using the [...] from the National Kidney Disease Education Program (NKDEP) which additionally recommends that when the eGFR is used in patients with extremes of body mass index for purposes of drug dosing, the eGFR should be multiplied by the estimated BMI. [facility] ELECTROLYTES Chloride Lvl 101 95 - 109 07/24/2018 [facility] ELECTROLYTES Calcium Lvl 8.0 8.5 - 10.5 07/24/2018 [facility] ELECTROLYTES Potassium Lvl 3.9 3.5 - 5.1 07/24/2018 [facility] ELECTROLYTES CO2 28 24 - 32 07/24/2018 [facility] ELECTROLYTES Creatinine Lvl 9.4 2 0.50 - 1.40 07/24/2018 [facility] ELECTROLYTES BUN 34 7 - 22 07/24/2018 [facility] ELECTROLYTES Sodium Lvl 136 135 - 145 07/24/2018 [facility] ELECTROLYTES Glucose Lvl 135 70 - 99 07/24/2018 [facility] HEMATOLOGY Segs 48.7 45.0 - 75.0 07/24/[address] [facility] Basophils 0.8 0.0 - 1.0 07/24/[address] [facility] Eosinophils 3.9 0.0 - 4.0 07/24/[address] [facility] Neutrophils # 4.2 1.5 - 8.1 07/24/[address] [facility] Monocytes 9.4 2.0 - 12.0 07/24/[address] [facility] Lymphocytes 37.2 20.0 - 40.0 07/24/2018 [facility] HEMATOLOGY Eosinophils # 0.3 0.0 - 0.5 07/24/2018 [facility] HEMATOLOGY Monocytes # 0.8 0.0 - 0.8 07/24/[address] [facility] Basophils # 0.1 0.0 - 0.2 07/24/[address] [facility] Lymphocytes # 3.2 1.0 - 5.5 07/24/[address] [facility] RBC 2.52 4.20 - 5.40 07/24/[address] [facility] Hgb 7.7 12.0 - 16.0 07/24/2018 [facility] HEMATOLOGY WBC 8.6 3.7 - 10.4 07/24/2018 [facility] HEMATOLOGY MCV 93.9 80.0 - 98.0 07/24/2018 [facility] HEMATOLOGY MCH 30.5 27.0 - 31.0 07/24/[address] [facility] MCHC 32.4 32.0 - 36.0 07/24/2018 [facility] HEMATOLOGY RDW 15.9 11.5 - 14.5 07/24/2018 [facility] HEMATOLOGY Hct 23.7 36.0 - 48.0 07/24/2018 [facility] HEMATOLOGY Platelet 338 133 - 450 07/24/[address] [facility] MPV 8.0 7.4 - 10.4 07/24/[address] [facility] Lymphocytes 32.4 20.0 - 40.0 07/22/2018 [facility] HEMATOLOGY Segs 56.2 45.0 - 75.0 07/22/2018 [facility] HEMATOLOGY Eosinophils # 0.3 0.0 - 0.5 07/22/2018 [facility] HEMATOLOGY Basophils # 0.1 0.0 - 0.2 07/22/2018 [facility] HEMATOLOGY Eosinophils 3.6 0.0 - 4.0 07/22/2018 [facility] HEMATOLOGY Monocytes 6.8 2.0 - 12.0 07/22/2018 [facility] HEMATOLOGY Neutrophils # 4.6 1.5 - 8.1 07/22/2018 [facility] HEMATOLOGY Basophils 1.0 0.0 - 1.0 07/22/2018 [facility] HEMATOLOGY Monocytes # 0.6 0.0 - 0.8 07/22/[address] [facility] Lymphocytes # 2.7 1.0 - 5.5 07/22/2018 [facility] HEMATOLOGY MPV 8.2 7.4 - 10.4 07/22/2018 [facility] HEMATOLOGY WBC 8.2 3.7 - 10.4 07/22/[address] [facility] Platelet 329 133 - 450 07/22/[address] [facility] MCH 30.5 27.0 - 31.0 07/22/2018 [facility] HEMATOLOGY RDW 15.7 11.5 - 14.5 07/22/[address] [facility] MCHC 33.2 32.0 - 36.0 07/22/2018 [facility] HEMATOLOGY Hct 25.6 36.0 - 48.0 07/22/[address] [facility] Hgb 8.5 12.0 - 16.0 07/22/2018 [facility] HEMATOLOGY MCV 91.9 80.0 - 98.0 07/22/2018 [facility] HEMATOLOGY RBC 2.78 4.20 - 5.40 07/22/2018 [facility] CHEM PANEL Creatinine Lvl 10.00 0.50 - 1.40 07/22/2018 [facility] CHEM PANEL Sodium Lvl 138 135 - 145 07/22/2018 [facility] CHEM PANEL BUN 42 7 - 22 07/22/2018 [facility] CHEM PANEL Chloride Lvl 105 95 - 109 07/22/2018 [facility] CHEM PANEL AGAP 19.3 10.0 - 20.0 07/22/2018 [facility] CHEM PANEL CO2 18 24 - 32 07/22/2018 [facility] CHEM PANEL Potassium Lvl 4.3 3.5 - 5.1 07/22/2018 [facility] CHEM PANEL Calcium Lvl 7.7 8.5 - 10.5 07/22/2018 [facility] CHEM PANEL eGFR 4 07/22/2018 Result Comment: The eGFR is calculated using the [...] from the National Kidney Disease Education Program (NKDEP) which additionally recommends that when the eGFR is used in patients with extremes of body mass index for purposes of drug dosing, the eGFR should be multiplied by the estimated BMI. [facility] CHEM PANEL Glucose Lvl 97 70 - 99 07/22/2018 [facility] CHEM PANEL Magnesium Lvl 2.1 1.8 - 2.4 07/21/2018 [facility] CHEM PANEL Phosphorus 6.7 2.5 - 4.5 07/21/2018 [facility] CHEM PANEL eGFR 6 07/21/2018 Result Comment: The eGFR is calculated using the [...] from the National Kidney Disease Education Program (NKDEP) which additionally recommends that when the eGFR is used in patients with extremes of body mass index for purposes of drug dosing, the eGFR should be multiplied by the estimated BMI. [facility] CHEM PANEL Potassium Lvl 3.8 3.5 - 5.1 07/21/2018 [facility] CHEM PANEL Calcium Lvl 7.7 8.5 - 10.5 07/21/2018 [facility] CHEM PANEL AGAP 9.8 10.0 - 20.0 07/21/2018 [facility] CHEM PANEL CO2 28 24 - 32 07/21/2018 [facility] CHEM PANEL Sodium Lvl 138 135 - 145 07/21/2018 [facility] CHEM PANEL Chloride Lvl 104 95 - 109 07/21/2018 [facility] CHEM PANEL Glucose Lvl 119 70 - 99 07/21/2018 [facility] CHEM PANEL Creatinine Lvl 7.99 0.50 - 1.40 07/21/2018 [facility] CHEM PANEL BUN 32 7 - 22 07/21/[address] [facility] Basophils # 0.1 0.0 - 0.2 07/21/[address] [facility] Eosinophils # 0.2 0.0 - 0.5 07/21/[address] [facility] Monocytes # 0.6 0.0 - 0.8 07/21/2018 [facility] HEMATOLOGY Segs 55.1 45.0 - 75.0 07/21/[address] [facility] Lymphocytes # 2.2 1.0 - 5.5 07/21/2018 [facility] HEMATOLOGY Basophils 0.9 0.0 - 1.0 07/21/2018 [facility] HEMATOLOGY Neutrophils # 3.9 1.5 - 8.1 07/21/2018 [facility] HEMATOLOGY Lymphocytes 31.8 20.0 - 40.0 07/21/[address] [facility] Monocytes 8.9 2.0 - 12.0 07/21/[address] [facility] Eosinophils 3.3 0.0 - 4.0 07/21/[address] [facility] MCHC 33.0 32.0 - 36.0 07/21/[address] [facility] MPV 8.2 7.4 - 10.4 07/21/[address] [facility] RDW 15.7 11.5 - 14.5 07/21/2018 [facility] HEMATOLOGY Platelet 296 133 - 450 07/21/[address] [facility] WBC 7.0 3.7 - 10.4 07/21/[address] [facility] MCH 30.3 27.0 - 31.0 07/21/[address] [facility] RBC 2.63 4.20 - 5.40 07/21/2018 [facility] HEMATOLOGY MCV 91.6 80.0 - 98.0 07/21/2018 [facility] CHEM PANEL Phosphorus 7.6 2.5 - 4.5 07/20/2018 [facility] CHEM PANEL Magnesium Lvl 2.1 1.8 - 2.4 07/20/2018 [facility] CARDIAC ENZYMES Troponin-I <0.02 0.00 - 0.40 07/19/2018 [facility] CARDIAC ENZYMES Troponin-I <0.02 0.00 - 0.40 07/19/2018 [facility] CHEM PANEL Phosphorus 8.7 2.5 - 4.5 07/19/2018 [facility] CHEM PANEL Magnesium Lvl 2.1 1.8 - 2.4 07/19/[address] [facility] Large Plt Moder ate *ABN* (07/19/18 2:56 AM) None Seen 07/19/2018 [facility] HEMATOLOGY RBC Morph Rosina l (07/19/18 2:56 AM) 07/19/2018 [facility] IMMUNOLOGY Hep Bs Ag Negat anitra *NA* (07/19/18 2:56 AM) Negative 07/19/2018 [facility] URINE AND STOOL UA Ketones Negative *NA* (07/19/18 2:56 AM) Negative 07/19/2018 [facility] URINE AND STOOL UA Protein >=300 mg/dL Negative mg/dL 07/19/2018 [facility] URINE AND STOOL UA Bili Negative *NA* (07/19/18 2:56 AM) Negative 07/19/2018 [facility] URINE AND STOOL UA Urobilinogen <=1.0 mg/dL 0.1 - 1.0 07/19/2018 [facility] URINE AND STOOL UA Blood Negative (07/19/18 2:56 AM) Negative 07/19/2018 [facility] URINE AND STOOL UA Color Ltyellow 07/19/2018 [facility] URINE AND STOOL UA pH 7.0 5.0 - 8.0 07/19/2018 [facility] URINE AND STOOL UA Spec Grav 1.014 <=1.030 07/19/2018 [facility] URINE AND STOOL UA Turbidity Slight *ABN* (07/19/18 2:56 AM) Clear 07/19/2018 [facility] URINE AND STOOL UA Nitrite Negative (07/19/18 2:56 AM) Negative 07/19/2018 [facility] URINE AND STOOL UA Sq Epi Many /LPF Few /LPF 07/19/2018 [facility] URINE AND STOOL UA Leuk Est Negative (07/19/18 2:56 AM) Negative 07/19/2018 [facility] URINE AND STOOL UA Bacteria Occasional /HPF None Seen /HPF 07/19/2018 [facility] URINE AND STOOL UA RBC 3 0 - 2 07/19/2018 [facility] URINE AND STOOL UA WBC <1 0 - 5 07/19/2018 [facility] URINE AND STOOL UA Glucose 500 mg/dL Negative mg/dL 07/19/2018 [facility] CARDIAC ENZYMES BNP 587 <=100 pg/mL 07/19/2018 [facility] CARDIAC ENZYMES Troponin-I <0.02 0.00 - 0.40 07/19/2018 [facility] CARDIAC ENZYMES CK MB 3.0 0.5 - 3.6 07/19/2018 [facility] CARDIAC ENZYMES Total CK 373 12 - 191 07/19/2018 [facility] CARDIAC ENZYMES CK MB Index 0.8 0.0 - 2.5 07/19/2018 [facility] CHEM PANEL B/C Ratio 5 6 - 25 07/19/2018 [facility] CHEM PANEL Bili Total 0.3 0.2 - 1.3 07/19/2018 [facility] CHEM PANEL Alk Phos 103 39 - 136 07/19/2018 [facility] CHEM PANEL A/G Ratio 0.7 0.7 - 1.6 07/19/2018 [facility] CHEM PANEL Globulin 5.3 2.7 - 4.2 07/19/2018 [facility] CHEM PANEL AST 11 0 - 37 07/19/2018 [facility] CHEM PANEL ALT 13 0 - 65 07/19/2018 [facility] CHEM PANEL Albumin Lvl 3.6 3.5 - 5.0 07/19/2018 [facility] CHEM PANEL Total Protein 8.9 6.4 - 8.4 07/19/2018 [facility] HEMATOLOGY PT 14.2 12.0 - 14.7 07/19/2018 [facility] HEMATOLOGY PTT 34.2 22.9 - 35.8 07/19/2018 [facility] HEMATOLOGY INR 1.12 0.85 - 1.17 07/19/2018 [facility] CHEM PANEL eGFR 6 06/30/2018 Result Comment: The eGFR is calculated using the [...] from the [employer] Program (NKDEP) which additionally recommends that when the eGFR is used in patients with extremes of body mass index for purposes of drug dosing, the eGFR should be multiplied by the estimated BMI. [facility] CHEM PANEL Calcium Lvl 8.3 8.5 - 10.5 06/30/2018 [facility] CHEM PANEL Creatinine Lvl 8.55 0.50 - 1.40 06/30/2018 [facility] CHEM PANEL Potassium Lvl 4.8 3.5 - 5.1 06/30/2018 [facility] CHEM PANEL Sodium Lvl 136 135 - 145 06/30/2018 [facility] CHEM PANEL Glucose Lvl 119 70 - 99 06/30/2018 [facility] CHEM PANEL BUN 30 7 - 22 06/30/2018 [facility] CHEM PANEL CO2 24 24 - 32 06/30/2018 [facility] CHEM PANEL Chloride Lvl 101 95 - 109 06/30/2018 [facility] CHEM PANEL AGAP 15.8 10.0 - 20.0 06/30/2018 [facility] HEMATOLOGY Hgb 9.7 12.0 - 16.0 06/30/[address] [facility] RBC 3.28 4.20 - 5.40 06/30/[address] [facility] WBC 9.1 3.7 - 10.4 06/30/[address] [facility] MCHC 31.5 32.0 - 36.0 06/30/[address] [facility] RDW 15.5 11.5 - 14.5 06/30/[address] [facility] MCH 29.6 27.0 - 31.0 06/30/2018 [facility] HEMATOLOGY MCV 93.9 80.0 - 98.0 06/30/[address] [facility] Hct 30.8 36.0 - 48.0 06/30/[address] [facility] MPV 7.8 7.4 - 10.4 06/30/[address] [facility] Platelet 405 133 - 450 06/30/[address] [facility] Eosinophils 3.0 0.0 - 4.0 06/30/[address] [facility] Neutrophils # 5.0 1.5 - 8.1 06/30/[address] [facility] Basophils 1.3 0.0 - 1.0 06/30/[address] [facility] Lymphocytes # 2.7 1.0 - 5.5 06/30/[address] [facility] Monocytes 11.4 2.0 - 12.0 06/30/[address] [facility] Lymphocytes 29.5 20.0 - 40.0 06/30/[address] [facility] Segs 54.8 45.0 - 75.0 06/30/[address] [facility] Monocytes # 1.0 0.0 - 0.8 06/30/[address] [facility] Eosinophils # 0.3 0.0 - 0.5 06/30/[address] [facility] Basophils # 0.1 0.0 - 0.2 06/30/2018 [facility] ELECTROLYTES CO2 26 24 - 32 06/29/2018 [facility] ELECTROLYTES Chloride Lvl 99 95 - 109 06/29/2018 [facility] ELECTROLYTES Potassium Lvl 4.8 3.5 - 5.1 06/29/2018 [facility] ELECTROLYTES Sodium Lvl 133 135 - 145 06/29/2018 [facility] ELECTROLYTES eGFR 4 06/29/2018 Result Comment: The eGFR is calculated using the [...] from the National Kidney Disease Education Program (NKDEP) which additionally recommends that when the eGFR is used in patients with extremes of body mass index for purposes of drug dosing, the eGFR should be multiplied by the estimated BMI. [facility] ELECTROLYTES AGAP 12.8 10.0 - 20.0 06/29/2018 [facility] ELECTROLYTES Calcium Lvl 8.7 8.5 - 10.5 06/29/2018 [facility] ELECTROLYTES BUN 43 7 - 22 06/29/2018 [facility] ELECTROLYTES Creatinine Lvl 11. 00 0.50 - 1.40 06/29/2018 [facility] ELECTROLYTES Glucose Lvl 149 70 - 99 06/29/2018 [facility] HEMATOLOGY Basophils # 0.1 0.0 - 0.2 06/28/2018 [facility] HEMATOLOGY Eosinophils # 0.4 0.0 - 0.5 06/28/2018 [facility] HEMATOLOGY Monocytes # 0.8 0.0 - 0.8 06/28/[address] [facility] Lymphocytes # 2.3 1.0 - 5.5 06/28/[address] [facility] Eosinophils 4.8 0.0 - 4.0 06/28/[address] [facility] Lymphocytes 32.3 20.0 - 40.0 06/28/[address] [facility] Monocytes 11.3 2.0 - 12.0 06/28/[address] [facility] Neutrophils # 3.7 1.5 - 8.1 06/28/[address] [facility] Basophils 1.0 0.0 - 1.0 06/28/[address] [facility] Segs 50.6 45.0 - 75.0 06/28/[address] [facility] Platelet 368 133 - 450 06/28/[address] [facility] MPV 7.9 7.4 - 10.4 06/28/[address] [facility] WBC 7.3 3.7 - 10.4 06/28/[address] [facility] Hct 27.0 36.0 - 48.0 06/28/[address] [facility] RBC 2.93 4.20 - 5.40 06/28/[address] [facility] Hgb 8.8 12.0 - 16.0 06/28/[address] [facility] RDW 15.4 11.5 - 14.5 06/28/[address] [facility] MCHC 32.6 32.0 - 36.0 06/28/[address] [facility] MCH 30.0 27.0 - 31.0 06/28/2018 [facility] HEMATOLOGY MCV 92.1 80.0 - 98.0 06/28/2018 [facility] HEMATOLOGY Hgb 8.9 12.0 - 16.0 06/26/2018 [facility] HEMATOLOGY Hct 26.3 36.0 - 48.0 06/26/2018 [facility] CARDIAC ENZYMES Troponin-I <0.02 0.00 - 0.40 06/26/2018 [facility] CARDIAC ENZYMES BNP 1190 <=100 pg/mL 06/26/2018 [facility] CHEM PANEL Magnesium Lvl 2.2 1.8 - 2.4 06/26/2018 [facility] CHEM PANEL Phosphorus 8.6 2.5 - 4.5 06/26/2018 [facility] ELECTROLYTES AGAP 15.0 10.0 - 20.0 06/26/2018 [facility] ELECTROLYTES eGFR 4 06/26/2018 Result Comment: The eGFR is calculated using the [...] from the National Kidney Disease Education Program (NKDEP) which additionally recommends that when the eGFR is used in patients with extremes of body mass index for purposes of drug dosing, the eGFR should be multiplied by the estimated BMI. [facility] ELECTROLYTES Calcium Lvl 7.8 8.5 - 10.5 06/26/2018 [facility] ELECTROLYTES Chloride Lvl 109 95 - 109 06/26/2018 [facility] ELECTROLYTES CO2 18 24 - 32 06/26/2018 [facility] ELECTROLYTES Sodium Lvl 137 135 - 145 06/26/2018 [facility] ELECTROLYTES Potassium Lvl 5.0 3.5 - 5.1 06/26/2018 [facility] ELECTROLYTES Creatinine Lvl 12. 30 0.50 - 1.40 06/26/2018 [facility] ELECTROLYTES BUN 70 7 - 22 06/26/2018 [facility] ELECTROLYTES Glucose Lvl 141 70 - 99 06/26/2018 [facility] HEMATOLOGY Lymphocytes # 2.4 1.0 - 5.5 06/26/[address] [facility] Eosinophils # 0.3 0.0 - 0.5 06/26/2018 [facility] HEMATOLOGY Basophils # 0.1 0.0 - 0.2 06/26/[address] [facility] Monocytes # 0.6 0.0 - 0.8 06/26/[address] [facility] Segs 65.3 45.0 - 75.0 06/26/[address] [facility] Lymphocytes 23.8 20.0 - 40.0 06/26/2018 [facility] HEMATOLOGY Eosinophils 3.5 0.0 - 4.0 06/26/2018 [facility] HEMATOLOGY Basophils 1.3 0.0 - 1.0 06/26/[address] [facility] Monocytes 6.1 2.0 - 12.0 06/26/[address] [facility] Neutrophils # 6.5 1.5 - 8.1 06/26/[address] [facility] PTT 26.5 22.9 - 35.8 06/26/[address] [facility] MPV 8.3 7.4 - 10.4 06/26/[address] [facility] WBC 10.0 3.7 - 10.4 06/26/[address] [facility] RBC 3.40 4.20 - 5.40 06/26/[address] [facility] MCH 30.3 27.0 - 31.0 06/26/[address] [facility] MCV 92.3 80.0 - 98.0 06/26/[address] [facility] Platelet 398 133 - 450 06/26/[address] [facility] RDW 15.1 11.5 - 14.5 06/26/[address] [facility] MCHC 32.8 32.0 - 36.0 06/26/[address] [facility] PT 13.7 12.0 - 14.7 06/26/[address] [facility] INR 1.07 0.85 - 1.17 06/26/2018 [facility] IMMUNOLOGY Hep Bs Ag Negat anitra *NA* (06/25/18 8:22 PM) Negative 06/26/2018 [facility] CHEM PANEL Procalcitonin Lvl 0.57 0.00 - 0.10 06/23/2018 [facility] CARDIAC ENZYMES Troponin-I <0.02 0.00 - 0.40 06/23/2018 [facility] CHEM PANEL eGFR 4 06/23/2018 Result Comment: The eGFR is calculated using the [...] from the National Kidney Disease Education Program (NKDEP) which additionally recommends that when the eGFR is used in patients with extremes of body mass index for purposes of drug dosing, the eGFR should be multiplied by the estimated BMI. [facility] CHEM PANEL Creatinine Lvl 11.30 0.50 - 1.40 06/23/2018 [facility] CHEM PANEL AGAP 13.6 10.0 - 20.0 06/23/2018 [facility] CHEM PANEL BUN 55 7 - 22 06/23/2018 [facility] CHEM PANEL Glucose Lvl 138 70 - 99 06/23/2018 [facility] CHEM PANEL Sodium Lvl 134 135 - 145 06/23/2018 [facility] CHEM PANEL CO2 20 24 - 32 06/23/2018 [facility] CHEM PANEL Calcium Lvl 7.6 8.5 - 10.5 06/23/2018 [facility] CHEM PANEL Potassium Lvl 4.6 3.5 - 5.1 06/23/2018 [facility] CHEM PANEL Chloride Lvl 105 95 - 109 06/23/2018 [facility] CHEM PANEL eGFR 9 06/19/2018 Result Comment: The eGFR is calculated using the [...] from the National Kidney Disease Education Program (NKDEP) which additionally recommends that when the eGFR is used in patients with extremes of body mass index for purposes of drug dosing, the eGFR should be multiplied by the estimated BMI. [facility] CHEM PANEL Creatinine Lvl 5.94 0.50 - 1.40 06/19/2018 [facility] CHEM PANEL BUN 25 7 - 22 06/19/2018 [facility] CHEM PANEL Glucose Lvl 159 70 - 99 06/19/2018 [facility] CHEM PANEL CO2 24 24 - 32 06/19/2018 [facility] CHEM PANEL Potassium Lvl 4.2 3.5 - 5.1 06/19/2018 [facility] CHEM PANEL Sodium Lvl 140 135 - 145 06/19/2018 [facility] CHEM PANEL Chloride Lvl 106 95 - 109 06/19/2018 [facility] CHEM PANEL AGAP 14.2 10.0 - 20.0 06/19/2018 [facility] CHEM PANEL Calcium Lvl 7.7 8.5 - 10.5 06/19/2018 [facility] HEMATOLOGY MCH 30.8 27.0 - 31.0 06/19/2018 [facility] HEMATOLOGY MCV 91.1 80.0 - 98.0 06/19/2018 [facility] HEMATOLOGY Hct 28.2 36.0 - 48.0 06/19/2018 [facility] HEMATOLOGY Hgb 9.5 12.0 - 16.0 06/19/2018 [facility] HEMATOLOGY RBC 3.09 4.20 - 5.40 06/19/2018 [facility] HEMATOLOGY WBC 8.3 3.7 - 10.4 06/19/2018 [facility] HEMATOLOGY MPV 7.7 7.4 - 10.4 06/19/2018 [facility] HEMATOLOGY Platelet 214 133 - 450 06/19/2018 [facility] HEMATOLOGY RDW 15.2 11.5 - 14.5 06/19/2018 [facility] HEMATOLOGY MCHC 33.8 32.0 - 36.0 06/19/2018 [facility] HEMATOLOGY Monocytes 8.2 2.0 - 12.0 06/19/2018 [facility] HEMATOLOGY Lymphocytes 29.5 20.0 - 40.0 06/19/2018 [facility] HEMATOLOGY Segs 56.7 45.0 - 75.0 06/19/2018 [facility] HEMATOLOGY Basophils # 0.1 0.0 - 0.2 06/19/2018 [facility] HEMATOLOGY Eosinophils # 0.4 0.0 - 0.5 06/19/2018 [facility] HEMATOLOGY Monocytes # 0.7 0.0 - 0.8 06/19/2018 [facility] HEMATOLOGY Lymphocytes # 2.4 1.0 - 5.5 06/19/2018 [facility] HEMATOLOGY Neutrophils # 4.7 1.5 - 8.1 06/19/2018 [facility] HEMATOLOGY Basophils 0.8 0.0 - 1.0 06/19/2018 [facility] HEMATOLOGY Eosinophils 4.8 0.0 - 4.0 06/19/2018 [facility] CHEM PANEL eGFR 7 06/18/2018 Result Comment: The eGFR is calculated using the [...] from the National Kidney Disease Education Program (NKDEP) which additionally recommends that when the eGFR is used in patients with extremes of body mass index for purposes of drug dosing, the eGFR should be multiplied by the estimated BMI. [facility] Calcium Lvl 7.3 8.5 - 10.5 06/18/2018 [facility] CHEM PANEL Creatinine Lvl 7.74 0.50 - 1.40 06/18/2018 [facility] BUN 39 7 - 22 06/18/2018 [facility] CHEM PANEL Glucose Lvl 170 70 - 99 06/18/2018 [facility] CHEM PANEL AGAP 13.4 10.0 - 20.0 06/18/2018 [facility] CHEM PANEL CO2 24 24 - 32 06/18/2018 [facility] CHEM PANEL Chloride Lvl 104 95 - 109 06/18/2018 [facility] Potassium Lvl 4.4 3.5 - 5.1 06/18/2018 [facility] CHEM PANEL Sodium Lvl 137 135 - 145 06/18/2018 [facility] HEMATOLOGY MPV 7.9 7.4 - 10.4 06/18/2018 [facility] HEMATOLOGY MCH 30.6 27.0 - 31.0 06/18/2018 [facility] HEMATOLOGY MCHC 33.3 32.0 - 36.0 06/18/2018 [facility] HEMATOLOGY RDW 15.7 11.5 - 14.5 06/18/2018 [facility] HEMATOLOGY Platelet 213 133 - 450 06/18/2018 [facility] Hct 28.9 36.0 - 48.0 06/18/2018 [facility] HEMATOLOGY MCV 92.1 80.0 - 98.0 06/18/2018 [facility] HEMATOLOGY RBC 3.13 4.20 - 5.40 06/18/2018 [facility] HEMATOLOGY Hgb 9.6 12.0 - 16.0 06/18/2018 [facility] HEMATOLOGY WBC 8.1 3.7 - 10.4 06/18/2018 [facility] HEMATOLOGY Lymphocytes # 2.1 1.0 - 5.5 06/18/2018 [facility] HEMATOLOGY Basophils # 0.1 0.0 - 0.2 06/18/2018 [facility] HEMATOLOGY Monocytes # 0.7 0.0 - 0.8 06/18/2018 [facility] HEMATOLOGY Monocytes 8.0 2.0 - 12.0 06/18/2018 [facility] HEMATOLOGY Neutrophils # 4.9 1.5 - 8.1 06/18/2018 [facility] HEMATOLOGY Eosinophils # 0.4 0.0 - 0.5 06/18/2018 [facility] HEMATOLOGY Basophils 0.8 0.0 - 1.0 06/18/2018 [facility] HEMATOLOGY Eosinophils 4.5 0.0 - 4.0 06/18/2018 [facility] HEMATOLOGY Segs 60.4 45.0 - 75.0 06/18/2018 [facility] HEMATOLOGY Lymphocytes 26.3 20.0 - 40.0 06/18/2018 [facility] URINE AND STOOL UA WBC 27 0 - 5 06/18/2018 [facility] URINE AND STOOL UA Sq Epi Few /LPF Few /LPF 06/18/2018 [facility] URINE AND STOOL UA Leuk Est Trace *ABN* (06/17/18 6:39 PM) Negative 06/18/2018 [facility] URINE AND STOOL UA Spec Grav 1.010 <=1.030 06/18/2018 [facility] URINE AND STOOL UA Urobilinogen <=1.0 mg/dL 0.1 - 1.0 06/18/2018 [facility] URINE AND STOOL UA Ketones Negative *NA* (06/17/18 6:39 PM) Negative 06/18/2018 [facility] URINE AND STOOL UA Glucose >=500 06/18/2018 [facility] URINE AND STOOL UA Blood Small *ABN* (06/17/18 6:39 PM) Negative 06/18/2018 [facility] URINE AND STOOL UA Bili Negative *NA* (06/17/18 6:39 PM) Negative 06/18/2018 [facility] URINE AND STOOL UA Bacteria Occasional /HPF None Seen /HPF 06/18/2018 [facility] URINE AND STOOL UA RBC 8 0 - 2 06/18/2018 [facility] URINE AND STOOL UA Nitrite Negative (06/17/18 6:39 PM) Negative 06/18/2018 [facility] URINE AND STOOL UA Protein >=300 mg/dL Negative mg/dL 06/18/2018 [facility] URINE AND STOOL UA pH 7.0 5.0 - 8.0 06/18/2018 [facility] URINE AND STOOL UA Turbidity Slight *ABN* (06/17/18 6:39 PM) Clear 06/18/2018 [facility] URINE AND STOOL UA Color Yellow *NA* (06/17/18 6:39 PM) Yellow 06/18/2018 [facility] URINE AND STOOL Micro? Performed (06/17/18 6:39 PM) 06/18/2018 [facility] IMMUNOLOGY Hep Bs Ag Negat anitra *NA* (06/17/18 2:15 PM) Negative 06/17/2018 [facility] BACTERIAL - SEROLOGY MRSA by PCR Negative (06/17/18 12:59 PM) 06/17/2018 [facility] CHEM PANEL Lactic Acid Lvl 0.8 0.5 - 2.2 06/17/2018 [facility] CARDIAC ENZYMES proBNP 12786 0 - 125 06/17/2018 [facility] CARDIAC ENZYMES Total CK 289 12 - 191 06/17/2018 [facility] CARDIAC ENZYMES Troponin-I 0.03 0.00 - 0.40 06/17/2018 [facility] CHEM PANEL Lipase Lvl 166 73 - 393 06/17/2018 [facility] CHEM PANEL Phosphorus 6.2 2.5 - 4.5 06/17/2018 [facility] CHEM PANEL Magnesium Lvl 1.9 1.8 - 2.4 06/17/2018 [facility] CHEM PANEL B/C Ratio 6 6 - 25 06/17/2018 [facility] CHEM PANEL AGAP 18.0 10.0 - 20.0 06/17/2018 [facility] CHEM PANEL A/G Ratio 0.5 0.7 - 1.6 06/17/2018 [facility] CHEM PANEL Globulin 5.1 2.7 - 4.2 06/17/2018 [facility] CHEM PANEL eGFR 5 06/17/2018 Result Comment: The eGFR is calculated using the [...] from the National Kidney Disease Education Program (NKDEP) which additionally recommends that when the eGFR is used in patients with extremes of body mass index for purposes of drug dosing, the eGFR should be multiplied by the estimated BMI. [facility] CHEM PANEL Total Protein 7.9 6.4 - 8.4 06/17/2018 [facility] CHEM PANEL Calcium Lvl 7.7 8.5 - 10.5 06/17/2018 [facility] CHEM PANEL CO2 18 24 - 32 06/17/2018 [facility] CHEM PANEL Chloride Lvl 109 95 - 109 06/17/2018 [facility] CHEM PANEL Potassium Lvl 5.0 3.5 - 5.1 06/17/2018 [facility] CHEM PANEL AST 12 0 - 37 06/17/2018 [facility] CHEM PANEL ALT 11 0 - 65 06/17/2018 [facility] CHEM PANEL Bili Total 0.3 0.2 - 1.3 06/17/2018 [facility] CHEM PANEL Alk Phos 101 39 - 136 06/17/2018 [facility] CHEM PANEL Albumin Lvl 2.8 3.5 - 5.0 06/17/2018 [facility] CHEM PANEL Sodium Lvl 140 135 - 145 06/17/2018 [facility] CHEM PANEL Glucose Lvl 173 70 - 99 06/17/2018 [facility] CHEM PANEL Creatinine Lvl 10.10 0.50 - 1.40 06/17/2018 [facility] CHEM PANEL BUN 60 7 - 22 06/17/2018 [facility] HEMATOLOGY PT 13.7 12.0 - 14.7 06/17/2018 [facility] HEMATOLOGY INR 1.07 0.85 - 1.17 06/17/2018 [facility] HEMATOLOGY RBC 3.32 4.20 - 5.40 06/17/2018 [facility] HEMATOLOGY MCHC 33.6 32.0 - 36.0 06/17/2018 [facility] HEMATOLOGY RDW 15.6 11.5 - 14.5 06/17/2018 [facility] HEMATOLOGY MCV 91.3 80.0 - 98.0 06/17/2018 [facility] HEMATOLOGY Hct 30.3 36.0 - 48.0 06/17/2018 [facility] HEMATOLOGY Hgb 10.2 12.0 - 16.0 06/17/2018 [facility] MCH 30.7 27.0 - 31.0 06/17/2018 [facility] HEMATOLOGY Platelet 250 133 - 450 06/17/2018 [facility] HEMATOLOGY MPV 7.5 7.4 - 10.4 06/17/2018 [facility] HEMATOLOGY WBC 12.9 3.7 - 10.4 06/17/2018 [facility] HEMATOLOGY Lymphocytes # 3.3 1.0 - 5.5 06/17/2018 [facility] HEMATOLOGY Basophils # 0.2 0.0 - 0.2 06/17/2018 [facility] HEMATOLOGY Monocytes # 0.8 0.0 - 0.8 06/17/2018 [facility] HEMATOLOGY Eosinophils # 0.4 0.0 - 0.5 06/17/2018 [facility] HEMATOLOGY Segs 63.9 45.0 - 75.0 06/17/2018 [facility] HEMATOLOGY Neutrophils # 8.2 1.5 - 8.1 06/17/2018 [facility] HEMATOLOGY Basophils 1.3 0.0 - 1.0 06/17/2018 [facility] HEMATOLOGY Eosinophils 3.2 0.0 - 4.0 06/17/2018 [facility] HEMATOLOGY Monocytes 6.1 2.0 - 12.0 06/17/2018 [facility] HEMATOLOGY Lymphocytes 25.5 20.0 - 40.0 06/17/2018 [facility] CHEM PANEL Phosphorus 4.7 2.5 - 4.5 11/10/2017 [facility] CHEM PANEL Magnesium Lvl 2.2 1.8 - 2.4 11/10/2017 [facility] CHEM PANEL eGFR 7 11/10/2017 Result Comment: The eGFR is calculated using the [...] from the National Kidney Disease Education Program (NKDEP) which additionally recommends that when the eGFR is used in patients with extremes of body mass index for purposes of drug dosing, the eGFR should be multiplied by the estimated BMI. [facility] CHEM PANEL Creatinine Lvl 7.16 0.50 - 1.40 11/10/2017 [facility] CHEM PANEL Glucose Lvl 119 70 - 99 11/10/2017 [facility] CHEM PANEL BUN 28 7 - 22 11/10/2017 [facility] CHEM PANEL Potassium Lvl 3.9 3.5 - 5.1 11/10/2017 [facility] CHEM PANEL Sodium Lvl 140 135 - 145 11/10/2017 [facility] CHEM PANEL Chloride Lvl 105 95 - 109 11/10/2017 [facility] CHEM PANEL CO2 27 24 - 32 11/10/2017 [facility] CHEM PANEL Calcium Lvl 7.1 8.5 - 10.5 11/10/2017 [facility] CHEM PANEL AGAP 11.9 10.0 - 20.0 11/10/2017 [facility] HEMATOLOGY Monocytes # 0.6 0.0 - 0.8 11/10/2017 [facility] HEMATOLOGY Segs 53.5 45.0 - 75.0 11/10/2017 [facility] HEMATOLOGY Lymphocytes 32.4 20.0 - 40.0 11/10/2017 [facility] HEMATOLOGY Monocytes 10.9 2.0 - 12.0 11/10/2017 [facility] HEMATOLOGY Basophils 0.7 0.0 - 1.0 11/10/2017 [facility] HEMATOLOGY Neutrophils # 2.9 1.5 - 8.1 11/10/2017 [facility] HEMATOLOGY Eosinophils # 0.1 0.0 - 0.5 11/10/2017 [facility] HEMATOLOGY Lymphocytes # 1.7 1.0 - 5.5 11/10/2017 [facility] HEMATOLOGY Eosinophils 2.5 0.0 - 4.0 11/10/2017 [facility] HEMATOLOGY Platelet 185 133 - 450 11/10/2017 [facility] HEMATOLOGY RDW 15.0 11.5 - 14.5 11/10/2017 [facility] HEMATOLOGY MCHC 32.2 32.0 - 36.0 11/10/2017 [facility] HEMATOLOGY MCH 30.0 27.0 - 31.0 11/10/2017 [facility] HEMATOLOGY MCV 93.1 80.0 - 98.0 11/10/2017 [facility] HEMATOLOGY Hct 24.8 36.0 - 48.0 11/10/2017 [facility] HEMATOLOGY Hgb 8.0 12.0 - 16.0 11/10/2017 [facility] HEMATOLOGY MPV 8.8 7.4 - 10.4 11/10/2017 [facility] HEMATOLOGY RBC 2.66 4.20 - 5.40 11/10/2017 [facility] HEMATOLOGY WBC 5.4 3.7 - 10.4 11/10/2017 [facility] CARDIAC ENZYMES Troponin-T 0.192 0.000 - 0.100 11/10/2017 Result Comment: Critical Result(s) carbone d to Odessa Murray at 11/09/2017 22:20_ by NT. Read back OK. [facility] CARDIAC ENZYMES Troponin-I 0.07 0.00 - 0.40 11/10/2017 [facility] CARDIAC ENZYMES Troponin-T 0.155 0.000 - 0.100 11/09/2017 Result Comment: Critical Result(s) carbone d to Wilfred at 11/09/2017 18:59 by BLJ. Read back OK. [facility] CARDIAC ENZYMES Troponin-I 0.05 0.00 - 0.40 11/09/2017 [facility] PARATHYROID PROFILE Ca Ion WB 0.86 1.05 - 1.25 11/09/2017 Result Comment: Critical Result(s) carbone d to Jocelyn Wellington at 11/09/2017 17:58 by NT. Read back OK. [facility] PARATHYROID PROFILE Ca Norm WB 0.89 1.05 - 1.25 11/09/2017 Result Comment: Critical Result(s) carbone d to Jocelyn Crandalltal at 11/09/2017 17:58 by NT. Read back OK. [facility] CARDIAC ENZYMES Troponin-I 0.08 0.00 - 0.40 11/09/2017 [facility] CHEM PANEL eGFR 9 11/09/2017 Result Comment: The eGFR is calculated using the [...] from the National Kidney Disease Education Program (NKDEP) which additionally recommends that when the eGFR is used in patients with extremes of body mass index for purposes of drug dosing, the eGFR should be multiplied by the estimated BMI. [facility] CHEM PANEL Calcium Lvl 7.7 8.5 - 10.5 11/09/2017 [facility] CHEM PANEL AGAP 15.9 10.0 - 20.0 11/09/2017 [facility] CHEM PANEL Glucose Lvl 80 70 - 99 11/09/2017 [facility] CHEM PANEL Creatinine Lvl 6.06 0.50 - 1.40 11/09/2017 [facility] CHEM PANEL Sodium Lvl 140 135 - 145 11/09/2017 [facility] CHEM PANEL BUN 25 7 - 22 11/09/2017 [facility] CHEM PANEL Chloride Lvl 104 95 - 109 11/09/2017 [facility] CHEM PANEL CO2 24 24 - 32 11/09/2017 [facility] CHEM PANEL Potassium Lvl 3.9 3.5 - 5.1 11/09/2017 [facility] CARDIAC ENZYMES Troponin-T 0.186 0.000 - 0.100 11/08/2017 Result Comment: Critical Result(s) tona estevez to Rhona MCBRIDE at 11/08/2017 20:04 by bp. Read back OK. [facility] CHEM PANEL Lipase Lvl 92 73 - 393 11/08/2017 [facility] CHEM PANEL Vitamin D3 1,25 (OH)2 <10 11/08/2017 Result Comment: Performed At: [facility]
[address] [place], [place] [id number]
Ezra Catherine MD Ph:[phone] [facility] CHEM PANEL Vitamin D2 1,25 (OH)2 <10 11/08/2017 [facility] CHEM PANEL Vitamin D 1,25 (OH)2 Tota l <10 11/08/2017 Result Comment: Reference Range:
Subhash lts: 21 - 65 [facility] IMMUNOLOGY Hep Bs Ab 276.2 <=7.4 mIU/mL 11/08/2017 [facility] IMMUNOLOGY Hep C Ab Negat anitra *NA* (11/08/17 2:12 PM) 11/08/2017 [facility] PARATHYROID PROFILE PTH Intact 738.2 18.4 - 80.1 11/08/2017 [facility] Culture: Catheter Tip No Growth 11/08/2017 [facility] CHEM PANEL Phosphorus 3.8 2.5 - 4.5 11/07/2017 [facility] CHEM PANEL Procalcitonin Lvl 29.23 0.00 - 0.10 11/07/2017 Result Comment: Critical Result(s) tona estevez to olga irby at _11/07/2017 07:20 by_.radha Read back OK. [facility] CHEM PANEL eGFR 8 11/07/2017 Result Comment: The eGFR is calculated using the [...] from the National Kidney Disease Education Program (NKDEP) which additionally recommends that when the eGFR is used in patients with extremes of body mass index for purposes of drug dosing, the eGFR should be multiplied by the estimated BMI. [facility] CHEM PANEL Sodium Lvl 139 135 - 145 11/07/2017 [facility] CHEM PANEL Glucose Lvl 88 70 - 99 11/07/2017 [facility] CHEM PANEL BUN 33 7 - 22 11/07/2017 [facility] CHEM PANEL Creatinine Lvl 6.53 0.50 - 1.40 11/07/2017 [facility] CHEM PANEL Chloride Lvl 105 95 - 109 11/07/2017 [facility] CHEM PANEL CO2 20 24 - 32 11/07/2017 [facility] CHEM PANEL Potassium Lvl 4.4 3.5 - 5.1 11/07/2017 [facility] CHEM PANEL AGAP 18.4 10.0 - 20.0 11/07/2017 [facility] CHEM PANEL Calcium Lvl 7.0 8.5 - 10.5 11/07/2017 Result Comment: Critical Result(s) carbone d to Tisha Medina at 11/07/2017 08:08 by lwb . Read back OK. [facility] CHEM PANEL Magnesium Lvl 1.9 1.8 - 2.4 11/07/2017 [facility] HEMATOLOGY Hct 23.9 36.0 - 48.0 11/07/2017 [facility] HEMATOLOGY Hgb 8.0 12.0 - 16.0 11/07/2017 [facility] HEMATOLOGY MCH 30.8 27.0 - 31.0 11/07/2017 [facility] HEMATOLOGY MCV 92.4 80.0 - 98.0 11/07/2017 [facility] HEMATOLOGY MCHC 33.4 32.0 - 36.0 11/07/2017 [facility] HEMATOLOGY WBC 7.7 3.7 - 10.4 11/07/2017 [facility] HEMATOLOGY RBC 2.58 4.20 - 5.40 11/07/2017 [facility] HEMATOLOGY RDW 15.5 11.5 - 14.5 11/07/2017 [facility] HEMATOLOGY MPV 9.5 7.4 - 10.4 11/07/2017 [facility] HEMATOLOGY Platelet 136 133 - 450 11/07/2017 [facility] HEMATOLOGY Segs 75.6 45.0 - 75.0 11/07/2017 [facility] HEMATOLOGY Lymphocytes 15.4 20.0 - 40.0 11/07/2017 [facility] HEMATOLOGY Monocytes # 0.6 0.0 - 0.8 11/07/2017 [facility] HEMATOLOGY Eosinophils 0.3 0.0 - 4.0 11/07/2017 [facility] HEMATOLOGY Basophils 0.5 0.0 - 1.0 11/07/2017 [facility] HEMATOLOGY Monocytes 8.2 2.0 - 12.0 11/07/2017 [facility] HEMATOLOGY Neutrophils # 5.8 1.5 - 8.1 11/07/2017 [facility] HEMATOLOGY Lymphocytes # 1.2 1.0 - 5.5 11/07/2017 [facility] PARATHYROID PROFILE Ca Norm WB 0.82 1.05 - 1.25 11/07/2017 Result Comment: Critical Result(s) carbone d to Disha Irving at 11/07/2017 06:16 by AC. Read back OK. [facility] PARATHYROID PROFILE Ca Ion WB 0.83 1.05 - 1.25 11/07/2017 Result Comment: Critical Result(s) carbone d to Disha Irving at 11/07/2017 06:16 by AC. Read back OK. [facility] SPECIAL CHEMISTRY Hgb A1C 5.1 <=5.6 % 11/07/2017 [facility] IMMUNOLOGY Hep B Core IgM Negat anitra *NA* (11/06/17 4:35 PM) Negative 11/06/2017 [facility] IMMUNOLOGY Hep B Core Ab Negat anitra *NA* (11/06/17 4:35 PM) Negative 11/06/2017 [facility] CHEM PANEL Lactic Acid Lvl 1.4 0.5 - 2.2 11/06/2017 [facility] IMMUNOLOGY Hep Bs Ag Negat anitra *NA* (11/06/17 4:21 PM) Negative 11/06/2017 [facility] CHEM PANEL Phosphorus 4.4 2.5 - 4.5 11/06/2017 [facility] CHEM PANEL Magnesium Lvl 1.8 1.8 - 2.4 11/06/2017 [facility] BACTERIAL - SEROLOGY MRSA by PCR Negative (11/05/17 10:36 PM) 11/06/2017 [facility] CHEM PANEL Lactic Acid Lvl 0.8 0.5 - 2.2 11/06/2017 [facility] CHEM PANEL A/G Ratio 0.7 0.7 - 1.6 11/06/2017 [facility] CHEM PANEL Globulin 3.9 2.7 - 4.2 11/06/2017 [facility] CHEM PANEL ALT 24 0 - 65 11/06/2017 [facility] CHEM PANEL Albumin Lvl 2.6 3.5 - 5.0 11/06/2017 [facility] CHEM PANEL Total Protein 6.5 6.4 - 8.4 11/06/2017 [facility] CHEM PANEL Bili Indirect 0.3 0.0 - 1.0 11/06/2017 [facility] CHEM PANEL Bili Direct 0.1 0.0 - 0.3 11/06/2017 [facility] CHEM PANEL AST 37 0 - 37 11/06/2017 [facility] CHEM PANEL Bili Total 0.4 0.2 - 1.3 11/06/2017 [facility] CHEM PANEL Alk Phos 82 39 - 136 11/06/2017 [facility] CHEM PANEL Lipase Lvl 272 73 - 393 11/06/2017 [facility] IMMUNOLOGY HIV Ag/Ab 4th Gen Negat anitra *NA* (11/05/17 10:36 PM) Negative 11/06/2017 [facility] HEMATOLOGY MCH 30.4 27.0 - 31.0 11/06/2017 [facility] HEMATOLOGY WBC 8.5 3.7 - 10.4 11/06/2017 [facility] HEMATOLOGY RBC 3.01 4.20 - 5.40 11/06/2017 [facility] HEMATOLOGY MCV 93.9 80.0 - 98.0 11/06/2017 [facility] HEMATOLOGY Hgb 9.2 12.0 - 16.0 11/06/2017 [facility] HEMATOLOGY MCHC 32.4 32.0 - 36.0 11/06/2017 [facility] HEMATOLOGY Hct 28.3 36.0 - 48.0 11/06/2017 [facility] HEMATOLOGY MPV 8.5 7.4 - 10.4 11/06/2017 [facility] HEMATOLOGY RDW 15.7 11.5 - 14.5 11/06/2017 [facility] HEMATOLOGY Platelet 194 133 - 450 11/06/2017 [facility] HEMATOLOGY Eosinophils 0.4 0.0 - 4.0 11/06/2017 [facility] HEMATOLOGY Monocytes 1.9 2.0 - 12.0 11/06/2017 [facility] HEMATOLOGY Lymphocytes 6.3 20.0 - 40.0 11/06/2017 [facility] HEMATOLOGY Segs 91.0 45.0 - 75.0 11/06/2017 [facility] HEMATOLOGY Basophils 0.4 0.0 - 1.0 11/06/2017 [facility] HEMATOLOGY Lymphocytes # 0.5 1.0 - 5.5 11/06/2017 [facility] HEMATOLOGY Neutrophils # 7.7 1.5 - 8.1 11/06/2017 [facility] HEMATOLOGY Monocytes # 0.2 0.0 - 0.8 11/06/2017 [facility] Culture: Urine No Growth 11/06/2017 [facility] URINE AND STOOL UA Bili Negative *NA* (11/05/17 6:15 PM) Negative 11/05/2017 [facility] URINE AND STOOL UA Blood Small *ABN* (11/05/17 6:15 PM) Negative 11/05/2017 [facility] URINE AND STOOL UA Leuk Est Negative (11/05/17 6:15 PM) Negative 11/05/2017 [facility] URINE AND STOOL UA Glucose 250 mg/dL Negative mg/dL 11/05/2017 [facility] URINE AND STOOL UA Ketones Negative *NA* (11/05/17 6:15 PM) Negative 11/05/2017 [facility] URINE AND STOOL UA Protein >=300 mg/dL Negative mg/dL 11/05/2017 [facility] URINE AND STOOL UA Spec Grav 1.015 <=1.030 11/05/2017 [facility] URINE AND STOOL UA pH 7.0 5.0 - 8.0 11/05/2017 [facility] URINE AND STOOL UA Nitrite Negative (11/05/17 6:15 PM) Negative 11/05/2017 [facility] URINE AND STOOL UA Urobilinogen 0.2 0.1 - 1.0 11/05/2017 [facility] URINE AND STOOL UA Turbidity Clear (11/05/17 6:15 PM) Clear 11/05/2017 [facility] URINE AND STOOL UA Color Yellow *NA* (11/05/17 6:15 PM) Yellow 11/05/2017 [facility] URINE AND STOOL UA Mucus Occasional 11/05/2017 [facility] URINE AND STOOL UA Sq Epi Rare /LPF Few /LPF 11/05/2017 [facility] URINE AND STOOL UA WBC None Seen (11/05/17 6:15 PM) None Seen 11/05/2017 [facility] URINE AND STOOL UA RBC 0-2 /HPF 0 - 2 11/05/2017 [facility] URINE AND STOOL UA Bacteria Occasional /HPF None Seen /HPF 11/05/2017 [facility] CARDIAC ENZYMES Total CK 228 12 - 191 11/05/2017 [facility] CHEM PANEL Procalcitonin Lvl 3.66 0.00 - 0.10 11/05/2017 Result Comment: CRITICAL RESULT CALLED TO MADONNA SEGURA AT 11/05/2017 18:41 BY SXP. READ BACK OK. [facility] HEMATOLOGY PT 13.7 12.0 - 14.7 11/05/2017 [facility] HEMATOLOGY INR 1.05 0.85 - 1.17 11/05/2017 [facility] HEMATOLOGY PTT 32.1 22.9 - 35.8 11/05/2017 [facility] HEMATOLOGY Eosinophils # 0.1 0.0 - 0.5 11/05/2017 [facility] MOLECULAR DIAGNOSTIC KPC (carbapenem ase) Not Detected (11/05/17 4:41 PM) Not Detected 11/05/2017 [facility] MOLECULAR DIAGNOSTIC IMP (carbapenem ase) Not Detected (11/05/17 4:41 PM) Not Detected 11/05/2017 [facility] MOLECULAR DIAGNOSTIC CTX-M (ESBL) Not Detected (11/05/17 4:41 PM) Not Detected 11/05/2017 [facility] MOLECULAR DIAGNOSTIC Proteus spp. Not Detected (11/05/17 4:41 PM) Not Detected 11/05/2017 [facility] MOLECULAR DIAGNOSTIC VIM (carbapenem ase) Not Detected (11/05/17 4:41 PM) Not Detected 11/05/2017 [facility] MOLECULAR DIAGNOSTIC OXA (carbapenem ase) Not Detected (11/05/17 4:41 PM) Not Detected 11/05/2017 [facility] MOLECULAR DIAGNOSTIC NDM (carbapenem ase) Not Detected (11/05/17 4:41 PM) Not Detected 11/05/2017 [facility] MOLECULAR DIAGNOSTIC P. aeruginosa Not Detected (11/05/17 4:41 PM) Not Detected 11/05/2017 [facility] MOLECULAR DIAGNOSTIC K. pneumoniae Detected *ABN* (11/05/17 4:41 PM) Not Detected 11/05/2017 [facility] MOLECULAR DIAGNOSTIC K. oxytoca Not Detected (11/05/17 4:41 PM) Not Detected 11/05/2017 [facility] MOLECULAR DIAGNOSTIC E. coli Not Detected (11/05/17 4:41 PM) Not Detected 11/05/2017 [facility] MOLECULAR DIAGNOSTIC Enterobacter sp p. Not Detected (11/05/17 4:41 PM) Not Detected 11/05/2017 [facility] MOLECULAR DIAGNOSTIC Citrobacter spp . Not Detected (11/05/17 4:41 PM) Not Detected 11/05/2017 [facility] MOLECULAR DIAGNOSTIC Acinetobacter s pp. Not Detected (11/05/17 4:41 PM) Not Detected 11/05/2017 [facility] CHEM PANEL Lactic Acid Lvl 1.4 0.5 - 2.2 11/05/2017 [facility] CHEM PANEL BUN 41 7 - 22 09/26/2017 [facility] CHEM PANEL Glucose Lvl 163 70 - 99 09/26/2017 [facility] CHEM PANEL CO2 17 24 - 32 09/26/2017 [facility] CHEM PANEL Potassium Lvl 5.2 3.5 - 5.1 09/26/2017 [facility] CHEM PANEL Sodium Lvl 132 135 - 145 09/26/2017 [facility] CHEM PANEL Chloride Lvl 102 95 - 109 09/26/2017 [facility] CHEM PANEL Creatinine Lvl 10.50 0.50 - 1.40 09/26/2017 [facility] CHEM PANEL AGAP 18.2 10.0 - 20.0 09/26/2017 [facility] CHEM PANEL Calcium Lvl 7.7 8.5 - 10.5 09/26/2017 [facility] CHEM PANEL eGFR 5 09/26/2017 Result Comment: The eGFR is calculated using the [...] from the National Kidney Disease Education Program (NKDEP) which additionally recommends that when the eGFR is used in patients with extremes of body mass index for purposes of drug dosing, the eGFR should be multiplied by the estimated BMI. [facility] MCH 31.0 27.0 - 31.0 09/23/[address] [facility] MPV 8.4 7.4 - 10.4 09/23/[address] [facility] Platelet 304 133 - 450 09/23/[address] [facility] RDW 15.4 11.5 - 14.5 09/23/[address] [facility] MCHC 33.1 32.0 - 36.0 09/23/[address] [facility] MCV 93.8 80.0 - 98.0 09/23/[address] [facility] Hgb 11.5 12.0 - 16.0 09/23/[address] [facility] Hct 34.7 36.0 - 48.0 09/23/[address] [facility] RBC 3.70 4.20 - 5.40 09/23/[address] [facility] WBC 6.9 3.7 - 10.4 09/23/[address] [facility] Monocytes 10.0 2.0 - 12.0 09/23/[address] [facility] Segs-Bands # 4.1 1.5 - 8.1 09/23/[address] [facility] Basophils 0.6 0.0 - 1.0 09/23/[address] [facility] Eosinophils 1.7 0.0 - 4.0 09/23/[address] [facility] Lymphocytes 27.7 20.0 - 40.0 09/23/[address] [facility] Segs 60.0 45.0 - 75.0 09/23/[address] [facility] Lymphocytes # 1.9 1.0 - 5.5 09/23/[address] [facility] Monocytes # 0.7 0.0 - 0.8 09/23/[address] [facility] Eosinophils # 0.1 0.0 - 0.5 09/23/2017 [facility] CHEM PANEL eGFR 7 09/23/2017 Result Comment: The eGFR is calculated using the [...] from the National Kidney Disease Education Program (NKDEP) which additionally recommends that when the eGFR is used in patients with extremes of body mass index for purposes of drug dosing, the eGFR should be multiplied by the estimated BMI. [facility] CHEM PANEL Sodium Lvl 136 135 - 145 09/23/2017 [facility] CHEM PANEL Potassium Lvl 4.2 3.5 - 5.1 09/23/2017 [facility] CHEM PANEL Chloride Lvl 101 95 - 109 09/23/2017 [facility] CHEM PANEL Calcium Lvl 9.1 8.5 - 10.5 09/23/2017 [facility] CHEM PANEL AGAP 15.2 10.0 - 20.0 09/23/2017 [facility] CHEM PANEL CO2 24 24 - 32 09/23/2017 [facility] CHEM PANEL Glucose Lvl 110 70 - 99 09/23/2017 [facility] CHEM PANEL BUN 28 7 - 22 09/23/2017 [facility] CHEM PANEL Creatinine Lvl 7.65 0.50 - 1.40 09/23/2017 [facility] HEMATOLOGY Lymphocytes 30.0 20.0 - 40.0 09/21/2017 [facility] HEMATOLOGY Monocytes 7.0 2.0 - 12.0 09/21/2017 [facility] HEMATOLOGY Eosinophils 2.2 0.0 - 4.0 09/21/2017 [facility] HEMATOLOGY Basophils 0.9 0.0 - 1.0 09/21/2017 [facility] HEMATOLOGY Segs 59.9 45.0 - 75.0 09/21/2017 [facility] HEMATOLOGY Eosinophils # 0.1 0.0 - 0.5 09/21/2017 [facility] HEMATOLOGY Basophils # 0.1 0.0 - 0.2 09/21/2017 [facility] HEMATOLOGY Segs-Bands # 3.9 1.5 - 8.1 09/21/[address] [facility] Monocytes # 0.5 0.0 - 0.8 09/21/[address] [facility] Lymphocytes # 2.0 1.0 - 5.5 09/21/[address] [facility] RDW 14.8 11.5 - 14.5 09/21/[address] [facility] Hgb 10.2 12.0 - 16.0 09/21/[address] [facility] RBC 3.38 4.20 - 5.40 09/21/[address] [facility] WBC 6.5 3.7 - 10.4 09/21/[address] [facility] Platelet 334 133 - 450 09/21/[address] [facility] MPV 8.3 7.4 - 10.4 09/21/[address] [facility] MCHC 33.0 32.0 - 36.0 09/21/[address] [facility] MCV 92.1 80.0 - 98.0 09/21/[address] [facility] Hct 31.1 36.0 - 48.0 09/21/[address] [facility] MCH 30.4 27.0 - 31.0 09/21/2017 [facility] Hep Bs Ab 427.5 <=7.4 mIU/mL 09/20/2017 [facility] Hep B Core Ab Negat anitra *NA* (09/20/17 1:09 PM) Negative 09/20/2017 [facility] ELECTROLYTES AGAP 16.4 10.0 - 20.0 09/18/2017 [facility] ELECTROLYTES Sodium Lvl 142 135 - 145 09/18/2017 [facility] ELECTROLYTES Chloride Lvl 106 95 - 109 09/18/2017 [facility] ELECTROLYTES Potassium Lvl 4.4 3.5 - 5.1 09/18/2017 [facility] ELECTROLYTES CO2 24 24 - 32 09/18/2017 [facility] ELECTROLYTES eGFR 8 09/18/2017 Result Comment: The eGFR is calculated using the [...] from the National Kidney Disease Education Program (NKDEP) which additionally recommends that when the eGFR is used in patients with extremes of body mass index for purposes of drug dosing, the eGFR should be multiplied by the estimated BMI. [facility] ELECTROLYTES Calcium Lvl 7.8 8.5 - 10.5 09/18/2017 [facility] ELECTROLYTES Glucose Lvl 162 70 - 99 09/18/2017 [facility] ELECTROLYTES BUN 45 7 - 22 09/18/2017 [facility] ELECTROLYTES Creatinine Lvl 6.9 1 0.50 - 1.40 09/18/2017 [facility] HEMATOLOGY WBC 8.3 3.7 - 10.4 09/18/2017 [facility] HEMATOLOGY RBC 2.69 4.20 - 5.40 09/18/2017 [facility] HEMATOLOGY MCH 31.0 27.0 - 31.0 09/18/2017 [facility] HEMATOLOGY MCV 92.0 80.0 - 98.0 09/18/2017 [facility] HEMATOLOGY Hct 24.8 36.0 - 48.0 09/18/[address] [facility] MPV 8.7 7.4 - 10.4 09/18/2017 [facility] HEMATOLOGY RDW 14.8 11.5 - 14.5 09/18/2017 [facility] HEMATOLOGY Platelet 240 133 - 450 09/18/[address] [facility] Hgb 8.4 12.0 - 16.0 09/18/[address] [facility] MCHC 33.7 32.0 - 36.0 09/18/2017 [facility] URINE AND STOOL UA Color Ltyellow 09/17/2017 [facility] URINE AND STOOL UA Urobilinogen <=1.0 mg/dL 0.1 - 1.0 09/17/2017 [facility] URINE AND STOOL UA Sq Epi Occasional /LPF Few /LPF 09/17/2017 [facility] URINE AND STOOL UA WBC 2 0 - 5 09/17/2017 [facility] URINE AND STOOL UA Ketones Negative mg/dL Negative mg/dL 09/17/2017 [facility] URINE AND STOOL UA Bili Negative *NA* (09/17/17 9:36 AM) Negative 09/17/2017 [facility] URINE AND STOOL UA Blood Negative (09/17/17 9:36 AM) Negative 09/17/2017 [facility] URINE AND STOOL UA Nitrite Negative (09/17/17 9:36 AM) Negative 09/17/2017 [facility] URINE AND STOOL UA Leuk Est Negative (09/17/17 9:36 AM) Negative 09/17/2017 [facility] URINE AND STOOL UA Mucus Few /LPF None Seen /LPF 09/17/2017 [facility] URINE AND STOOL UA RBC 1 0 - 2 09/17/2017 [facility] URINE AND STOOL UA Bacteria Many /HPF None Seen /HPF 09/17/2017 [facility] URINE AND STOOL UA Protein >=300 mg/dL Negative mg/dL 09/17/2017 [facility] URINE AND STOOL UA Turbidity Clear (09/17/17 9:36 AM) Clear 09/17/2017 [facility] URINE AND STOOL UA pH 7.0 5.0 - 8.0 09/17/2017 [facility] URINE AND STOOL UA Glucose 500 mg/dL Negative mg/dL 09/17/2017 [facility] URINE AND STOOL UA Spec Grav 1.010 <=1.030 09/17/2017 [facility] IMMUNOLOGY Hep Bs Ag Negat anitra *NA* (09/16/17 11:20 AM) Negative 09/16/2017 [facility] CARDIAC ENZYMES CK MB Index 0.5 0.0 - 2.5 09/16/2017 [facility] CARDIAC ENZYMES CK MB 2.1 0.5 - 3.6 09/16/2017 [facility] CARDIAC ENZYMES BNP 561 <=100 pg/mL 09/16/2017 [facility] CARDIAC ENZYMES Troponin-I 0.03 0.00 - 0.40 09/16/2017 [facility] CARDIAC ENZYMES Total CK 461 12 - 191 09/16/2017 [facility] CHEM PANEL Total Protein 8.0 6.4 - 8.4 09/16/2017 [facility] CHEM PANEL ALT 13 0 - 65 09/16/2017 [facility] CHEM PANEL Albumin Lvl 2.9 3.5 - 5.0 09/16/2017 [facility] CHEM PANEL Bili Total 0.3 0.2 - 1.3 09/16/2017 [facility] CHEM PANEL B/C Ratio 9 6 - 25 09/16/2017 [facility] CHEM PANEL Alk Phos 87 39 - 136 09/16/2017 [facility] CHEM PANEL AST 10 0 - 37 09/16/2017 [facility] CHEM PANEL A/G Ratio 0.6 0.7 - 1.6 09/16/2017 [facility] CHEM PANEL Globulin 5.1 2.7 - 4.2 09/16/2017 [facility] HEMATOLOGY Segs 77.3 45.0 - 75.0 09/16/2017 [facility] HEMATOLOGY Lymphocytes 15.9 20.0 - 40.0 09/16/2017 [facility] HEMATOLOGY Monocytes 5.6 2.0 - 12.0 09/16/2017 [facility] HEMATOLOGY Segs-Bands # 13.0 1.5 - 8.1 09/16/2017 [facility] HEMATOLOGY Eosinophils 0.7 0.0 - 4.0 09/16/2017 [facility] HEMATOLOGY Lymphocytes # 2.7 1.0 - 5.5 09/16/2017 [facility] HEMATOLOGY Basophils 0.5 0.0 - 1.0 09/16/2017 [facility] HEMATOLOGY Basophils # 0.1 0.0 - 0.2 09/16/2017 [facility] HEMATOLOGY Eosinophils # 0.1 0.0 - 0.5 09/16/[address] [facility] Monocytes # 0.9 0.0 - 0.8 09/16/2017 [facility] CHEM PANEL Magnesium Lvl 1.7 1.8 - 2.4 08/17/2017 [facility] CHEM PANEL B/C Ratio 8 6 - 25 08/17/2017 [facility] CHEM PANEL AGAP 15.0 10.0 - 20.0 08/17/2017 [facility] CHEM PANEL Globulin 4.3 2.7 - 4.2 [facility]/17/[facility] A/G Ratio 0.6 0.7 - 1.6 [facility]17[facility] eGFR 9 08/17/2017 Result Comment: The eGFR is calculated using the [...] from the National Kidney Disease Education Program (NKDEP) which additionally recommends that when the eGFR is used in patients with extremes of body mass index for purposes of drug dosing, the eGFR should be multiplied by the estimated BMI. [facility] CHEM PANEL AST 10 0 - 37 08/17/2017 [facility] CHEM PANEL Bili Total 0.2 0.2 - 1.3 08/17/2017 [facility] CHEM PANEL Alk Phos 79 39 - 136 08/17/2017 [facility] CHEM PANEL ALT 10 0 - 65 08/17/2017 [facility] CHEM PANEL Albumin Lvl 2.7 3.5 - 5.0 08/17/2017 [facility] CHEM PANEL BUN 48 7 - 22 08/17/2017 [facility] CHEM PANEL Glucose Lvl 133 70 - 99 08/17/2017 [facility] CHEM PANEL Creatinine Lvl 6.11 0.50 - 1.40 08/17/2017 [facility] CHEM PANEL Sodium Lvl 141 135 - 145 08/17/2017 [facility] CHEM PANEL Potassium Lvl 5.0 3.5 - 5.1 08/17/2017 [facility] CHEM PANEL Chloride Lvl 110 95 - 109 08/17/2017 [facility] CHEM PANEL Calcium Lvl 7.6 8.5 - 10.5 08/17/2017 [place] CHEM PANEL CO2 21 24 - 32 08/17/2017 [facility] CHEM PANEL Total Protein 7.0 6.4 - 8.4 08/17/2017 [facility] HEMATOLOGY Segs 49.4 45.0 - 75.0 08/17/2017 [facility] HEMATOLOGY Lymphocytes # 2.4 1.0 - 5.5 08/17/2017 [facility] HEMATOLOGY Monocytes # 0.4 0.0 - 0.8 08/17/2017 [facility] HEMATOLOGY Eosinophils # 0.2 0.0 - 0.5 08/17/2017 [facility] HEMATOLOGY Segs-Bands # 3.0 1.5 - 8.1 08/17/2017 [facility] HEMATOLOGY Lymphocytes 39.5 20.0 - 40.0 08/17/2017 [facility] HEMATOLOGY Monocytes 7.1 2.0 - 12.0 08/17/2017 [facility] HEMATOLOGY Eosinophils 3.2 0.0 - 4.0 08/17/2017 [facility] HEMATOLOGY Basophils 0.8 0.0 - 1.0 08/17/2017 [facility] HEMATOLOGY Hgb 8.7 12.0 - 16.0 08/17/2017 [facility] HEMATOLOGY Hct 25.9 36.0 - 48.0 08/17/2017 [facility] HEMATOLOGY WBC 6.0 3.7 - 10.4 08/17/2017 [facility] HEMATOLOGY RBC 2.86 4.20 - 5.40 08/17/2017 [facility] HEMATOLOGY RDW 15.3 11.5 - 14.5 08/17/2017 [facility] HEMATOLOGY Platelet 208 133 - 450 08/17/2017 [facility] HEMATOLOGY MPV 8.7 7.4 - 10.4 08/17/2017 [facility] MCV 90.5 80.0 - 98.0 08/17/2017 [facility] HEMATOLOGY MCH 30.4 27.0 - 31.0 08/17/2017 [facility] HEMATOLOGY MCHC 33.6 32.0 - 36.0 08/17/2017 [facility] HEMATOLOGY PT 14.0 12.0 - 14.7 08/17/2017 [facility] HEMATOLOGY PTT 30.1 22.9 - 35.8 08/17/2017 [facility] HEMATOLOGY INR 1.08 0.85 - 1.17 08/17/2017 [facility] IMMUNOLOGY Hep Bs Ag Negat anitra *NA* (08/16/17 9:45 AM) Negative 08/16/2017 [facility] CHEM PANEL ALT 9 0 - 65 08/16/2017 [facility] CHEM PANEL Albumin Lvl 2.8 3.5 - 5.0 08/16/2017 [facility] CHEM PANEL A/G Ratio 0.7 0.7 - 1.6 08/16/2017 [facility] CHEM PANEL Total Protein 7.0 6.4 - 8.4 08/16/2017 [facility] CHEM PANEL B/C Ratio 9 6 - 25 08/16/2017 [facility] CHEM PANEL AGAP 17.2 10.0 - 20.0 08/16/2017 [facility] CHEM PANEL Bili Total 0.3 0.2 - 1.3 08/16/2017 [facility] CHEM PANEL Globulin 4.2 2.7 - 4.2 08/16/2017 [facility] CHEM PANEL eGFR 8 08/16/2017 Result Comment: The eGFR is calculated using the [...] from the National Kidney Disease Education Program (NKDEP) which additionally recommends that when the eGFR is used in patients with extremes of body mass index for purposes of drug dosing, the eGFR should be multiplied by the estimated BMI. [facility] CHEM PANEL BUN 64 7 - 22 [facility] CO[facility] 14 24 - 32 08/16/2017 [facility] CHEM PANEL Calcium Lvl 7.9 8.5 - 10.5 08/16/2017 [facility] CHEM PANEL Glucose Lvl 132 70 - 99 [facility]/16/[facility] Chloride Lvl 118 95 - 109 08/16/2017 [facility] CHEM PANEL Potassium Lvl 5.2 3.5 - 5.1 08/16/2017 [facility] CHEM PANEL Sodium Lvl 144 135 - 145 08/16/2017 [facility] CHEM PANEL Creatinine Lvl 6.77 0.50 - 1.40 08/16/2017 [facility] CHEM PANEL Alk Phos 86 39 - 136 08/16/2017 [facility] CHEM PANEL AST 10 0 - 37 08/16/2017 [facility] URINE AND STOOL UA Urobilinogen <=1.0 mg/dL 0.1 - 1.0 08/16/2017 [facility] URINE AND STOOL UA Glucose 150 08/16/2017 [facility] URINE AND STOOL UA Mucus Few /LPF None Seen /LPF 08/16/2017 [facility] URINE AND STOOL UA Hyal Cast 4 0 - 2 08/16/2017 [facility] URINE AND STOOL UA Bacteria Occasional /HPF None Seen /HPF 08/16/2017 [facility] URINE AND STOOL UA Color Yellow *NA* (08/16/17 12:17 AM) Yellow 08/16/2017 [facility] URINE AND STOOL UA Leuk Est Negative (08/16/17 12:17 AM) Negative 08/16/2017 [facility] URINE AND STOOL UA RBC 6 0 - 2 08/16/2017 [facility] URINE AND STOOL UA WBC 1 0 - 5 08/16/2017 [facility] URINE AND STOOL UA Sq Epi Many /LPF Few /LPF 08/16/2017 [facility] URINE AND STOOL UA Turbidity Slight *ABN* (08/16/17 12:17 AM) Clear 08/16/2017 [facility] URINE AND STOOL UA pH 5.0 5.0 - 8.0 08/16/2017 [facility] URINE AND STOOL UA Spec Grav 1.011 <=1.030 08/16/2017 [facility] URINE AND STOOL UA Bili Negative *NA* (08/16/17 12:17 AM) Negative 08/16/2017 [facility] URINE AND STOOL UA Protein >=300 mg/dL Negative mg/dL 08/16/2017 [facility] URINE AND STOOL UA Blood Small *ABN* (08/16/17 12:17 AM) Negative 08/16/2017 [facility] URINE AND STOOL UA Ketones Negative mg/dL Negative mg/dL 08/16/2017 [facility] URINE AND STOOL UA Nitrite Negative (08/16/17 12:17 AM) Negative 08/16/2017 [facility] CARDIAC ENZYMES CK MB Index 0.9 0.0 - 2.5 08/16/2017 [facility] CARDIAC ENZYMES CK MB 3.6 0.5 - 3.6 08/16/2017 [facility] CARDIAC ENZYMES Total CK 417 12 - 191 08/16/2017 [facility] CARDIAC ENZYMES Troponin-I 0.02 0.00 - 0.40 08/16/2017 [facility] CHEM PANEL Calcium Lvl 7.6 8.5 - 10.5 08/16/2017 [facility] CHEM PANEL Potassium Lvl 5.6 3.5 - 5.1 08/16/2017 [facility] CHEM PANEL Chloride Lvl 117 95 - 109 08/16/2017 [facility] CHEM PANEL CO2 16 24 - 32 08/16/2017 [facility] CHEM PANEL Sodium Lvl 142 135 - 145 08/16/2017 [facility] CHEM PANEL BUN 65 7 - 22 08/16/2017 [facility] CHEM PANEL Creatinine Lvl 7.06 0.50 - 1.40 08/16/2017 [facility] CHEM PANEL ALT 11 0 - 65 08/16/2017 [facility] CHEM PANEL Albumin Lvl 2.8 3.5 - 5.0 08/16/2017 [facility] CHEM PANEL Total Protein 7.1 6.4 - 8.4 08/16/2017 [facility] CHEM PANEL Globulin 4.3 2.7 - 4.2 08/16/2017 [facility] CHEM PANEL A/G Ratio 0.7 0.7 - 1.6 08/16/2017 [facility] CHEM PANEL B/C Ratio 9 6 - 25 08/16/2017 [facility] CHEM PANEL Glucose Lvl 128 70 - 99 08/16/2017 [facility] CHEM PANEL Bili Total 0.2 0.2 - 1.3 08/16/2017 [facility] CHEM PANEL AGAP 14.6 10.0 - 20.0 08/16/2017 [facility] CHEM PANEL AST 15 0 - 37 08/16/2017 [facility] CHEM PANEL Alk Phos 84 39 - 136 08/16/2017 [facility] CHEM PANEL eGFR 8 08/16/2017 Result Comment: The eGFR is calculated using the [...] from the National Kidney Disease Education Program (NKDEP) which additionally recommends that when the eGFR is used in patients with extremes of body mass index for purposes of drug dosing, the eGFR should be multiplied by the estimated BMI. [facility] HEMATOLOGY MCH 30.7 27.0 - 31.0 08/16/2017 [facility] HEMATOLOGY MCHC 33.4 32.0 - 36.0 08/16/2017 [facility] HEMATOLOGY RDW 15.2 11.5 - 14.5 08/16/2017 [facility] HEMATOLOGY Platelet 216 133 - 450 08/16/2017 [facility] HEMATOLOGY MPV 8.5 7.4 - 10.4 08/16/2017 [facility] HEMATOLOGY Hct 25.0 36.0 - 48.0 08/16/2017 [facility] HEMATOLOGY MCV 91.8 80.0 - 98.0 08/16/2017 [facility] HEMATOLOGY Hgb 8.4 12.0 - 16.0 08/16/2017 [facility] HEMATOLOGY RBC 2.72 4.20 - 5.40 08/16/2017 [facility] HEMATOLOGY WBC 7.8 3.7 - 10.4 08/16/2017 [facility] HEMATOLOGY Segs 54.9 45.0 - 75.0 08/16/2017 [facility] HEMATOLOGY Basophils 1.0 0.0 - 1.0 08/16/2017 [facility] Segs-Bands # 4.3 1.5 - 8.1 08/16/2017 [facility] HEMATOLOGY Lymphocytes # 2.7 1.0 - 5.5 08/16/2017 [facility] HEMATOLOGY Basophils # 0.1 0.0 - 0.2 08/16/2017 [facility] HEMATOLOGY Monocytes # 0.5 0.0 - 0.8 08/16/2017 [facility] HEMATOLOGY Eosinophils # 0.3 0.0 - 0.5 08/16/2017 [facility] Lymphocytes 33.9 20.0 - 40.0 08/16/2017 [facility] HEMATOLOGY Monocytes 6.9 2.0 - 12.0 08/16/2017 [facility] HEMATOLOGY Eosinophils 3.3 0.0 - 4.0 08/16/2017 [facility] Hgb 8.2 12.0 - 16.0 06/28/2017 [facility] CHEM PANEL Phosphorus 6.6 2.5 - 4.5 06/28/2017 [facility] CHEM PANEL Magnesium Lvl 1.9 1.8 - 2.4 06/28/2017 [facility] CHEM PANEL eGFR 10 06/28/2017 Result Comment: The eGFR is calculated using the [...] from the National Kidney Disease Education Program (NKDEP) which additionally recommends that when the eGFR is used in patients with extremes of body mass index for purposes of drug dosing, the eGFR should be multiplied by the estimated BMI. [facility] CHEM PANEL Calcium Lvl 7.7 8.5 - 10.5 06/28/2017 [facility] CHEM PANEL AGAP 12.3 10.0 - 20.0 06/28/2017 [facility] CHEM PANEL B/C Ratio 8 6 - 25 06/28/2017 [facility] CHEM PANEL CO2 26 24 - 32 06/28/2017 [facility] CHEM PANEL BUN 46 7 - 22 06/28/2017 [facility] CHEM PANEL Creatinine Lvl 5.65 0.50 - 1.40 06/28/2017 [facility] CHEM PANEL Glucose Lvl 144 70 - 99 06/28/2017 [facility] CHEM PANEL A/G Ratio 0.5 0.7 - 1.6 06/28/2017 [facility] CHEM PANEL Globulin 4.4 2.7 - 4.2 06/28/2017 [facility] CHEM PANEL Albumin Lvl 2.1 3.5 - 5.0 06/28/2017 [facility] CHEM PANEL Total Protein 6.5 6.4 - 8.4 06/28/2017 [facility] CHEM PANEL AST 7 0 - 37 06/28/2017 [facility] CHEM PANEL Bili Total 0.2 0.2 - 1.3 06/28/2017 [facility] CHEM PANEL ALT 11 0 - 65 06/28/2017 [facility] CHEM PANEL Alk Phos 76 39 - 136 06/28/2017 [facility] CHEM PANEL Potassium Lvl 5.3 3.5 - 5.1 06/28/2017 [facility] CHEM PANEL Sodium Lvl 139 135 - 145 06/28/2017 [facility] CHEM PANEL Chloride Lvl 106 95 - 109 06/28/2017 [facility] HEMATOLOGY RDW 15.7 11.5 - 14.5 06/28/2017 [facility] HEMATOLOGY MPV 8.6 7.4 - 10.4 06/28/2017 [facility] HEMATOLOGY Platelet 288 133 - 450 06/28/2017 [facility] HEMATOLOGY MCV 88.6 80.0 - 98.0 06/28/2017 [facility] HEMATOLOGY Hct 21.4 36.0 - 48.0 06/28/2017 [facility] HEMATOLOGY MCHC 33.3 32.0 - 36.0 06/28/2017 [facility] HEMATOLOGY MCH 29.5 27.0 - 31.0 06/28/2017 [facility] HEMATOLOGY RBC 2.41 4.20 - 5.40 06/28/2017 [facility] HEMATOLOGY WBC 6.0 3.7 - 10.4 06/28/2017 [facility] HEMATOLOGY Hgb 7.1 12.0 - 16.0 06/28/2017 [facility] HEMATOLOGY Eosinophils # 0.2 0.0 - 0.5 06/28/2017 [facility] HEMATOLOGY Segs-Bands # 3.5 1.5 - 8.1 06/28/2017 [facility] HEMATOLOGY Lymphocytes # 1.6 1.0 - 5.5 06/28/2017 [facility] HEMATOLOGY Monocytes # 0.6 0.0 - 0.8 06/28/2017 [facility] HEMATOLOGY Basophils 0.6 0.0 - 1.0 06/28/2017 [facility] HEMATOLOGY Lymphocytes 27.1 20.0 - 40.0 06/28/2017 [facility] Monocytes 10.0 2.0 - 12.0 06/28/2017 [facility] Eosinophils 3.4 0.0 - 4.0 06/28/2017 [facility] HEMATOLOGY Segs 58.9 45.0 - 75.0 06/28/2017 [facility] IMMUNOLOGY Hep Bs Ag Negat anitra *NA* (06/27/17 9:55 AM) Negative 06/27/2017 [facility] CARDIAC ENZYMES CK MB Index 0.8 0.0 - 2.5 06/27/2017 [facility] CARDIAC ENZYMES Troponin-I <0.02 0.00 - 0.40 06/27/2017 [facility] CARDIAC ENZYMES Total CK 313 12 - 191 06/27/2017 [facility] CARDIAC ENZYMES CK MB 2.4 0.5 - 3.6 06/27/2017 [facility] CHEM PANEL Lipase Lvl 197 73 - 393 06/27/2017 [facility] CHEM PANEL eGFR 8 06/27/2017 Result Comment: The eGFR is calculated using the [...] from the National Kidney Disease Education Program (NKDEP) which additionally recommends that when the eGFR is used in patients with extremes of body mass index for purposes of drug dosing, the eGFR should be multiplied by the estimated BMI. [facility] Globulin 5.6 2.7 - 4.2 06/27/2017 [facility] A/G Ratio 0.5 0.7 - 1.6 06/27/2017 [facility] CO2 20 24 - 32 06/27/2017 [facility] Chloride Lvl 110 95 - 109 06/27/2017 [facility] CHEM PANEL Calcium Lvl 8.2 8.5 - 10.5 06/27/2017 [facility] CHEM PANEL AST 14 0 - 37 06/27/2017 [facility] CHEM PANEL ALT 12 0 - 65 06/27/2017 [facility] CHEM PANEL Albumin Lvl 2.6 3.5 - 5.0 06/27/2017 [facility] CHEM PANEL Total Protein 8.2 6.4 - 8.4 06/27/2017 [facility] CHEM PANEL Bili Total 0.2 0.2 - 1.3 06/27/2017 [facility] CHEM PANEL Alk Phos 93 39 - 136 06/27/2017 [facility] CHEM PANEL AGAP 13.6 10.0 - 20.0 06/27/2017 [facility] CHEM PANEL B/C Ratio 9 6 - 25 06/27/2017 [facility] CHEM PANEL BUN 64 7 - 22 06/27/2017 [facility] CHEM PANEL Glucose Lvl 141 70 - 99 06/27/2017 [facility] Potassium Lvl 5.6 3.5 - 5.1 06/27/2017 [facility] CHEM PANEL Sodium Lvl 138 135 - 145 06/27/2017 [facility] CHEM PANEL Creatinine Lvl 7.05 0.50 - 1.40 06/27/2017 [facility] HEMATOLOGY Monocytes # 0.7 0.0 - 0.8 06/27/2017 [facility] HEMATOLOGY Lymphocytes # 3.0 1.0 - 5.5 06/27/2017 [facility] HEMATOLOGY Segs-Bands # 6.0 1.5 - 8.1 06/27/2017 [facility] HEMATOLOGY Basophils 0.9 0.0 - 1.0 06/27/2017 [facility] Eosinophils 2.8 0.0 - 4.0 06/27/2017 [facility] Lymphocytes 29.5 20.0 - 40.0 06/27/2017 [facility] Segs 59.5 45.0 - 75.0 06/27/2017 [facility] Monocytes 7.3 2.0 - 12.0 06/27/2017 [facility] Basophils # 0.1 0.0 - 0.2 06/27/2017 [facility] Eosinophils # 0.3 0.0 - 0.5 06/27/2017 [facility] MPV 8.8 7.4 - 10.4 06/27/2017 [facility] Platelet 351 133 - 450 06/27/2017 [facility] Hgb 9.2 12.0 - 16.0 06/27/2017 [facility] MCV 89.4 80.0 - 98.0 06/27/2017 [facility] MCH 29.9 27.0 - 31.0 06/27/2017 [facility] MCHC 33.5 32.0 - 36.0 06/27/2017 [facility] RDW 15.8 11.5 - 14.5 06/27/2017 [facility] Hct 27.5 36.0 - 48.0 06/27/2017 [facility] WBC 10.1 3.7 - 10.4 06/27/2017 [facility] RBC 3.07 4.20 - 5.40 06/27/2017 [facility] Hct 21.5 36.0 - 48.0 06/16/2017 [facility] Hgb 7.3 12.0 - 16.0 06/16/2017 [facility] Hep C Ab Negat anitra *NA* (06/16/17 1:30 PM) 06/16/2017 [facility] Hep B Core Ab Negat anitra *NA* (06/16/17 1:30 PM) Negative 06/16/2017 [facility] Hep B Core IgM Negat anitra *NA* (06/16/17 1:30 PM) Negative 06/16/2017 [facility] Hep Bs Ag Negat anitra *NA* (06/16/17 1:30 PM) Negative 06/16/2017 [facility] Hep Bs Ab 317.4 <=7.4 mIU/mL 06/16/2017 [facility] CHEM PANEL Calcium Lvl 7.6 8.5 - 10.5 06/16/2017 [facility] HEMATOLOGY Hgb 15.9 12.0 - 16.0 06/16/2017 [facility] BLOOD BANK RESULTS RBC product Product available 1 (06/16/17 8:15 AM) 06/16/2017 Result Comment: 06/16/2017 0 8:16 [id number]
Blood available, notified dian Clarke at 06/16/2017 08:16_ by _LL. [facility] BLOOD BANK RESULTS Antibody Scrn Negative (06/16/17 7:04 AM) 06/16/2017 [facility] BLOOD BANK RESULTS ABO/Rh A POS 06/16/2017 [facility] Albumin Lvl 2.3 3.5 - 5.0 06/16/2017 [facility] BUN 27 7 - 22 06/16/2017 [facility] Creatinine Lvl 3.83 0.50 - 1.40 06/16/2017 [facility] CHEM PANEL Calcium Lvl 5.1 8.5 - 10.5 06/16/2017 Result Comment: Critical Result(s) carbone d to Prisca Sequeira at 0445_ by_JJ. Read back OK. [facility] AGAP 11.7 10.0 - 20.0 06/16/2017 [facility] CHEM PANEL CO2 25 24 - 32 06/16/2017 [facility] CHEM PANEL Glucose Lvl 179 70 - 99 06/16/2017 [facility] CHEM PANEL Potassium Lvl 3.7 3.5 - 5.1 06/16/2017 [facility] CHEM PANEL Chloride Lvl 104 95 - 109 06/16/2017 [facility] CHEM PANEL Sodium Lvl 137 135 - 145 06/16/2017 [facility] CHEM PANEL eGFR 16 06/16/2017 Result Comment: The eGFR is calculated using the [...] from the National Kidney Disease Education Program (NKDEP) which additionally recommends that when the eGFR is used in patients with extremes of body mass index for purposes of drug dosing, the eGFR should be multiplied by the estimated BMI. [facility] Platelet 240 133 - 450 06/16/2017 [facility] MPV 8.7 7.4 - 10.4 06/16/2017 [facility] MCHC 34.1 32.0 - 36.0 06/16/2017 [facility] RDW 14.9 11.5 - 14.5 06/16/2017 [facility] MCH 30.8 27.0 - 31.0 06/16/2017 [facility] Hct 19.7 36.0 - 48.0 06/16/2017 [facility] MCV 90.3 80.0 - 98.0 06/16/2017 [facility] Hgb 6.7 12.0 - 16.0 06/16/2017 Result Comment: Critical Result(s) carbone d to Prisca Sequeira RN at 06/16/2017 04:33 by CH. Read back OK. [facility] HEMATOLOGY RBC 2.18 4.20 - 5.40 06/16/2017 [facility] WBC 5.3 3.7 - 10.4 06/16/2017 [facility] Eosinophils 2.9 0.0 - 4.0 06/16/2017 [facility] Basophils 0.8 0.0 - 1.0 06/16/2017 [facility] Segs 56.2 45.0 - 75.0 06/16/2017 [facility] Lymphocytes 32.0 20.0 - 40.0 06/16/2017 [facility] Eosinophils # 0.2 0.0 - 0.5 06/16/2017 [facility] Segs-Bands # 3.0 1.5 - 8.1 06/16/2017 [facility] Lymphocytes # 1.7 1.0 - 5.5 06/16/2017 [facility] Monocytes # 0.4 0.0 - 0.8 06/16/2017 [facility] Monocytes 8.1 2.0 - 12.0 06/16/2017 [facility] URINE AND STOOL UA Glucose 50 06/16/2017 [facility] URINE AND STOOL UA Urobilinogen <=1.0 mg/dL 0.1 - 1.0 06/16/2017 [facility] URINE AND STOOL UA [place] Yeast Occasional /HPF None Seen /HPF 06/16/2017 [facility] URINE AND STOOL UA Blood Negative (06/15/17 8:46 PM) Negative 06/16/2017 [facility] URINE AND STOOL UA Nitrite Negative (06/15/17 8:46 PM) Negative 06/16/2017 [facility] URINE AND STOOL UA Ketones Negative mg/dL Negative mg/dL 06/16/2017 [facility] URINE AND STOOL UA Bili Negative *NA* (06/15/17 8:46 PM) Negative 06/16/2017 [facility] URINE AND STOOL UA RBC 1 0 - 2 06/16/2017 [facility] URINE AND STOOL UA Mucus Few /LPF None Seen /LPF 06/16/2017 [facility] URINE AND STOOL UA Leuk Est Negative (06/15/17 8:46 PM) Negative 06/16/2017 [facility] URINE AND STOOL UA WBC 3 0 - 5 06/16/2017 [facility] URINE AND STOOL UA Sq Epi Moderate /LPF Few /LPF 06/16/2017 [facility] URINE AND STOOL UA Turbidity Slight *ABN* (06/15/17 8:46 PM) Clear 06/16/2017 [facility] URINE AND STOOL UA Color Yellow *NA* (06/15/17 8:46 PM) Yellow 06/16/2017 [facility] URINE AND STOOL UA Spec Grav 1.013 <=1.030 06/16/2017 [facility] URINE AND STOOL UA Protein >=300 mg/dL Negative mg/dL 06/16/2017 [facility] URINE AND STOOL UA pH 5.0 5.0 - 8.0 06/16/2017 [facility] CHEM PANEL eGFR 14 06/15/2017 Result Comment: The eGFR is calculated using the [...] from the National Kidney Disease Education Program (NKDEP) which additionally recommends that when the eGFR is used in patients with extremes of body mass index for purposes of drug dosing, the eGFR should be multiplied by the estimated BMI. [facility] CHEM PANEL CO2 23 24 - 32 06/15/2017 [facility] CHEM PANEL AGAP 11.7 10.0 - 20.0 06/15/2017 [facility] CHEM PANEL Potassium Lvl 4.7 3.5 - 5.1 06/15/2017 [facility] CHEM PANEL Glucose Lvl 92 70 - 99 06/15/2017 [facility] CHEM PANEL BUN 40 7 - 22 06/15/2017 [facility] CHEM PANEL Sodium Lvl 141 135 - 145 06/15/2017 [facility] CHEM PANEL Chloride Lvl 111 95 - 109 06/15/2017 [facility] CHEM PANEL Creatinine Lvl 4.30 0.50 - 1.40 06/15/2017 [facility] CHEM PANEL Calcium Lvl 7.5 8.5 - 10.5 06/15/2017 [facility] CHEM PANEL Magnesium Lvl 1.9 1.8 - 2.4 06/15/2017 [facility] HEMATOLOGY MCV 90.8 80.0 - 98.0 06/15/2017 [facility] HEMATOLOGY Hct 22.5 36.0 - 48.0 06/15/2017 [facility] HEMATOLOGY Platelet 262 133 - 450 06/15/2017 [facility] HEMATOLOGY RDW 14.9 11.5 - 14.5 06/15/2017 [facility] HEMATOLOGY MCHC 33.0 32.0 - 36.0 06/15/2017 [facility] HEMATOLOGY MCH 30.0 27.0 - 31.0 06/15/2017 [facility] HEMATOLOGY MPV 8.8 7.4 - 10.4 06/15/2017 [facility] HEMATOLOGY WBC 6.2 3.7 - 10.4 06/15/2017 [facility] HEMATOLOGY RBC 2.48 4.20 - 5.40 06/15/2017 [facility] HEMATOLOGY Lymphocytes # 1.9 1.0 - 5.5 06/15/2017 [facility] HEMATOLOGY Monocytes # 0.6 0.0 - 0.8 06/15/2017 [facility] HEMATOLOGY Eosinophils # 0.2 0.0 - 0.5 06/15/2017 [facility] HEMATOLOGY Lymphocytes 30.9 20.0 - 40.0 06/15/2017 [facility] HEMATOLOGY Monocytes 9.7 2.0 - 12.0 06/15/2017 [facility] HEMATOLOGY Basophils 0.8 0.0 - 1.0 06/15/2017 [facility] HEMATOLOGY Segs-Bands # 3.4 1.5 - 8.1 06/15/2017 [facility] HEMATOLOGY Eosinophils 3.4 0.0 - 4.0 06/15/2017 [facility] HEMATOLOGY Segs 55.2 45.0 - 75.0 06/15/2017 [facility] IMMUNOLOGY Hep Bs Ag Negat anitra *NA* (06/15/17 3:41 AM) Negative 06/15/2017 [facility] CARDIAC ENZYMES CK MB Index 1.5 0.0 - 2.5 06/14/2017 [facility] CARDIAC ENZYMES Total CK 222 12 - 191 06/14/2017 [facility] CARDIAC ENZYMES CK MB 3.3 0.5 - 3.6 06/14/2017 [facility] CARDIAC ENZYMES Troponin-I 0.04 0.00 - 0.40 06/14/2017 [facility] CHEM PANEL Lipase Lvl 398 73 - 393 06/14/2017 [facility] CHEM [facility] eGFR 10 06/14/2017 Result Comment: The eGFR is calculated using the [...] from the National Kidney Disease Education Program (NKDEP) which additionally recommends that when the eGFR is used in patients with extremes of body mass index for purposes of drug dosing, the eGFR should be multiplied by the estimated BMI. [facility] CHEM PANEL Globulin 4.5 2.7 - 4.2 06/14/2017 [facility] CHEM PANEL A/G Ratio 0.5 0.7 - 1.6 06/14/2017 [facility] CHEM PANEL B/C Ratio 9 6 - 25 06/14/2017 [facility] CHEM PANEL AST 9 0 - 37 06/14/2017 [facility] CHEM PANEL Alk Phos 86 39 - 136 06/14/2017 [facility] CHEM PANEL Bili Total 0.2 0.2 - 1.3 06/14/2017 [facility] CHEM PANEL AGAP 17.2 10.0 - 20.0 06/14/2017 [facility] CHEM PANEL Total Protein 6.9 6.4 - 8.4 06/14/2017 [facility] CHEM PANEL ALT 9 0 - 65 06/14/2017 [facility] CHEM PANEL Albumin Lvl 2.4 3.5 - 5.0 06/14/2017 [facility] CHEM PANEL Potassium Lvl 5.2 3.5 - 5.1 06/14/2017 [facility] CHEM PANEL Chloride Lvl 114 95 - 109 06/14/2017 [facility] CHEM PANEL CO2 17 24 - 32 06/14/2017 [facility] CHEM PANEL Creatinine Lvl 5.65 0.50 - 1.40 06/14/2017 [facility] CHEM PANEL Sodium Lvl 143 135 - 145 06/14/2017 [facility] CHEM PANEL BUN 51 7 - 22 06/14/2017 [facility] CHEM PANEL Glucose Lvl 147 70 - 99 06/14/2017 [facility] ENDOCRINOLOGY S Preg Ne gative *NA* (06/14/17 11:24 AM) Negative 06/14/2017 [facility] HEMATOLOGY Lymphocytes 20.0 20.0 - 40.0 06/14/2017 [facility] HEMATOLOGY Segs 69.0 45.0 - 75.0 06/14/2017 [facility] HEMATOLOGY Basophils 1.2 0.0 - 1.0 06/14/2017 [facility] HEMATOLOGY Eosinophils 2.8 0.0 - 4.0 06/14/2017 [facility] HEMATOLOGY Monocytes 7.0 2.0 - 12.0 06/14/2017 [facility] HEMATOLOGY Segs-Bands # 6.3 1.5 - 8.1 06/14/2017 [facility] HEMATOLOGY Monocytes # 0.6 0.0 - 0.8 06/14/2017 [facility] HEMATOLOGY Lymphocytes # 1.8 1.0 - 5.5 06/14/2017 [facility] Eosinophils # 0.3 0.0 - 0.5 06/14/2017 [facility] Basophils # 0.1 0.0 - 0.2 06/14/2017 [facility] HEMATOLOGY RDW 14.9 11.5 - 14.5 06/14/2017 [facility] MCH 30.2 27.0 - 31.0 06/14/2017 [facility] MCV 90.5 80.0 - 98.0 06/14/2017 [facility] MCHC 33.3 32.0 - 36.0 06/14/2017 [facility] MPV 8.2 7.4 - 10.4 06/14/2017 [facility] Platelet 306 133 - 450 06/14/2017 [facility] WBC 9.1 3.7 - 10.4 06/14/2017 [facility] RBC 2.62 4.20 - 5.40 06/14/2017 [facility] INR 0.98 0.85 - 1.17 06/14/2017 [facility] PT 13.0 12.0 - 14.7 06/14/2017 [facility] PTT 30.5 22.9 - 35.8 06/14/2017 [facility] CHEM PANEL Phosphorus 4.3 2.5 - 4.5 04/13/2017 [facility] CHEM PANEL Magnesium Lvl 1.8 1.8 - 2.4 04/13/2017 [facility] CHEM PANEL eGFR 22 04/13/2017 Result Comment: The eGFR is calculated using the [...] from the National Kidney Disease Education Program (NKDEP) which additionally recommends that when the eGFR is used in patients with extremes of body mass index for purposes of drug dosing, the eGFR should be multiplied by the estimated BMI. [facility] CHEM PANEL Chloride Lvl 104 95 - 109 04/13/2017 [facility] CHEM PANEL CO2 24 24 - 32 04/13/2017 [facility] CHEM PANEL Calcium Lvl 8.4 8.5 - 10.5 04/13/2017 [facility] CHEM PANEL Glucose Lvl 166 70 - 99 04/13/2017 [facility] CHEM PANEL BUN 16 7 - 22 04/13/2017 [facility] CHEM PANEL Sodium Lvl 139 135 - 145 04/13/2017 [facility] CHEM PANEL Creatinine Lvl 2.86 0.50 - 1.40 04/13/2017 [facility] CHEM PANEL Potassium Lvl 4.4 3.5 - 5.1 04/13/2017 [facility] CHEM PANEL AGAP 15.4 10.0 - 20.0 04/13/2017 [facility] HEMATOLOGY Segs-Bands # 3.7 1.5 - 8.1 04/13/2017 [facility] HEMATOLOGY Eosinophils # 0.1 0.0 - 0.5 04/13/2017 [facility] HEMATOLOGY Lymphocytes # 1.6 1.0 - 5.5 04/13/2017 [facility] HEMATOLOGY Monocytes # 0.3 0.0 - 0.8 04/13/2017 [facility] HEMATOLOGY Basophils # 0.1 0.0 - 0.2 04/13/2017 [facility] HEMATOLOGY Eosinophils 1.7 0.0 - 4.0 04/13/2017 [facility] HEMATOLOGY Monocytes 4.7 2.0 - 12.0 04/13/2017 [facility] HEMATOLOGY Lymphocytes 28.6 20.0 - 40.0 04/13/2017 [facility] HEMATOLOGY Segs 64.0 45.0 - 75.0 04/13/2017 [facility] HEMATOLOGY Basophils 1.0 0.0 - 1.0 04/13/2017 [facility] HEMATOLOGY MCH 30.3 27.0 - 31.0 04/13/2017 [facility] HEMATOLOGY MCV 91.8 80.0 - 98.0 04/13/2017 [facility] HEMATOLOGY Hct 30.0 36.0 - 48.0 04/13/2017 [facility] HEMATOLOGY RBC 3.26 4.20 - 5.40 04/13/2017 [facility] HEMATOLOGY WBC 5.8 3.7 - 10.4 04/13/2017 [facility] HEMATOLOGY Hgb 9.9 12.0 - 16.0 04/13/2017 [facility] HEMATOLOGY MPV 8.5 7.4 - 10.4 04/13/2017 [facility] HEMATOLOGY MCHC 33.0 32.0 - 36.0 04/13/2017 [facility] HEMATOLOGY Platelet 264 133 - 450 04/13/2017 [facility] HEMATOLOGY RDW 15.5 11.5 - 14.5 04/13/2017 [facility] DRUG SCREEN U Esther Scr Nega tive *NA* (04/13/17 3:53 AM) Negative 04/13/2017 [facility] DRUG SCREEN U Amph Scr Nega tive *NA* (04/13/17 3:53 AM) Negative 04/13/2017 [facility] DRUG SCREEN U Benzodia Scr Nega tive *NA* (04/13/17 3:53 AM) Negative 04/13/2017 [facility] DRUG SCREEN U Opiate Scr Posi tive *ABN* (04/13/17 3:53 AM) Negative 04/13/2017 [facility] DRUG SCREEN U Cannab Scr Nega tive *NA* (04/13/17 3:53 AM) Negative 04/13/2017 [facility] DRUG SCREEN U Cocaine Scr Nega tive *NA* (04/13/17 3:53 AM) Negative 04/13/2017 [facility] DRUG SCREEN U Phencyc Scr Nega tive *NA* (04/13/17 3:53 AM) Negative 04/13/2017 [facility] DRUG SCREEN UDS Note See Note (04/13/17 3:53 AM) 04/13/2017 [facility] URINE AND STOOL UA Urobilinogen <=1.0 mg/dL 0.1 - 1.0 04/13/2017 [facility] URINE AND STOOL UA Sq Epi Few /LPF Few /LPF 04/13/2017 [facility] URINE AND STOOL UA WBC 2 0 - 5 04/13/2017 [facility] URINE AND STOOL UA Mucus Few /LPF None Seen /LPF 04/13/2017 [facility] URINE AND STOOL UA Hyal Cast 1 0 - 2 04/13/2017 [facility] URINE AND STOOL UA Ketones Negative mg/dL Negative mg/dL 04/13/2017 [facility] URINE AND STOOL UA Bili Negative *NA* (04/13/17 3:53 AM) Negative 04/13/2017 [facility] URINE AND STOOL UA Blood Negative (04/13/17 3:53 AM) Negative 04/13/2017 [facility] URINE AND STOOL UA Nitrite Negative (04/13/17 3:53 AM) Negative 04/13/2017 [facility] URINE AND STOOL UA Leuk Est Negative (04/13/17 3:53 AM) Negative 04/13/2017 [facility] URINE AND STOOL UA Turbidity Clear (04/13/17 3:53 AM) Clear 04/13/2017 [facility] URINE AND STOOL UA Spec Grav 1.007 <=1.030 04/13/2017 [facility] URINE AND STOOL UA pH 8.0 5.0 - 8.0 04/13/2017 [facility] URINE AND STOOL UA Protein >=300 mg/dL Negative mg/dL 04/13/2017 [facility] URINE AND STOOL UA Glucose 200 mg/dL Negative mg/dL 04/13/2017 [facility] URINE AND STOOL UA Color Yellow *NA* (04/13/17 3:53 AM) Yellow 04/13/2017 [facility] IMMUNOLOGY Hep C Ab Negat anitra *NA* (04/12/17 7:57 PM) 04/13/2017 [facility] IMMUNOLOGY Hep Bs Ab 413.9 <=7.4 mIU/mL 04/13/2017 [facility] IMMUNOLOGY Hep B Core IgM Negat anitra *NA* (04/12/17 7:57 PM) Negative 04/13/2017 [facility] IMMUNOLOGY Hep B Core Ab Negat anitra *NA* (04/12/17 7:57 PM) Negative 04/13/2017 [facility] ANEMIA STUDY Ferritin Lvl 391 5 - 204 04/12/2017 [facility] ANEMIA STUDY UIBC 168 110 - 370 04/12/2017 [facility] ANEMIA STUDY % S[place] 24 12 - 57 04/12/2017 [facility] ANEMIA STUDY TIBC 220 228 - 428 04/12/2017 [facility] ANEMIA STUDY Iron 52 30 - 160 04/12/2017 [facility] CHEM PANEL Phosphorus 7.1 2.5 - 4.5 04/12/2017 [facility] CHEM PANEL Magnesium Lvl 1.8 1.8 - 2.4 04/12/2017 [facility] IMMUNOLOGY CDC HIV 4th GEN Negat anitra *NA* (04/12/17 1:01 PM) Negative 04/12/2017 [facility] LIPIDS CHD Risk 4.94 3.90 - 5.80 04/12/2017 [facility] LIPIDS VLDL 51 04/12/2017 [facility] LIPIDS LDL (Calculated) 150 <=99 mg/dL 04/12/2017 [facility] LIPIDS HDL 51 >=61 mg/dL 04/12/2017 [facility] LIPIDS Chol 252 <=199 mg/dL 04/12/2017 [facility] LIPIDS Trig 253 <=149 mg/dL 04/12/2017 [facility] SPECIAL CHEMISTRY Hgb A1C 7.1 <=5.6 % 04/12/2017 [facility] URINE AND STOOL UA Amorph Tamera Few /HPF None Seen /HPF 04/12/2017 [facility] URINE AND STOOL UA Bacteria Few /HPF None Seen /HPF 04/12/2017 [facility] URINE AND STOOL UA [place] Yeast Occasional /HPF None Seen /HPF 04/12/2017 [facility] URINE AND STOOL UA RBC 3-5 /HPF 0 - 2 04/12/2017 [facility] URINE AND STOOL UA Sq Epi Many /LPF Few /LPF 04/12/2017 [facility] URINE AND STOOL UA WBC 6-10 /HPF None Seen /HPF 04/12/2017 [facility] URINE AND STOOL UA Nitrite Negative (04/12/17 12:55 PM) Negative 04/12/2017 [facility] URINE AND STOOL UA Color Yellow *NA* (04/12/17 12:55 PM) Yellow 04/12/2017 [facility] URINE AND STOOL UA Glucose 250 mg/dL Negative mg/dL 04/12/2017 [facility] URINE AND STOOL UA Ketones Negative *NA* (04/12/17 12:55 PM) Negative 04/12/2017 [facility] URINE AND STOOL UA Blood Small *ABN* (04/12/17 12:55 PM) Negative 04/12/2017 [facility] URINE AND STOOL UA Bili Negative *NA* (04/12/17 12:55 PM) Negative 04/12/2017 [facility] URINE AND STOOL UA pH 7.0 5.0 - 8.0 04/12/2017 [facility] URINE AND STOOL UA Turbidity Clear (04/12/17 12:55 PM) Clear 04/12/2017 [facility] URINE AND STOOL UA Spec Grav 1.020 <=1.030 04/12/2017 [facility] URINE AND STOOL UA Protein >=300 mg/dL Negative mg/dL 04/12/2017 [facility] URINE AND STOOL UA Leuk Est Negative (04/12/17 12:55 PM) Negative 04/12/2017 [facility] URINE AND STOOL UA Urobilinogen 0.2 0.1 - 1.0 04/12/2017 [facility] IMMUNOLOGY Hep Bs Ag Negat anitra *NA* (04/12/17 11:14 AM) Negative 04/12/2017 [facility] CARDIAC ENZYMES Troponin-I 0.14 0.00 - 0.40 04/12/2017 [facility] CHEM PANEL Total Protein 7.6 6.4 - 8.4 04/12/2017 [facility] CHEM PANEL Globulin 5.3 2.7 - 4.2 04/12/2017 [facility] CHEM PANEL A/G Ratio 0.4 0.7 - 1.6 04/12/2017 [facility] CHEM PANEL Albumin Lvl 2.3 3.5 - 5.0 04/12/2017 [facility] CHEM PANEL ALT 22 0 - 65 04/12/2017 [facility] CHEM PANEL AST 20 0 - 37 04/12/2017 [facility] CHEM PANEL Bili Direct <0.1 0.0 - 0.3 04/12/2017 [facility] CHEM PANEL Bili Indirect <0.3 0.0 - 1.0 04/12/2017 [facility] CHEM PANEL Alk Phos 91 39 - 136 04/12/2017 [facility] CHEM PANEL Bili Total 0.3 0.2 - 1.3 04/12/2017 [facility] CHEM PANEL Lipase Lvl 528 73 - 393 04/12/2017 [facility] CARDIAC ENZYMES Total CK 105 12 - 191 04/12/2017 [facility] CARDIAC ENZYMES Troponin-I 0.16 0.00 - 0.40 04/12/2017 [facility] ELECTROLYTES AGAP 14.9 10.0 - 20.0 04/12/2017 [facility] ELECTROLYTES Calcium Lvl 8.3 8.5 - 10.5 04/12/2017 [facility] ELECTROLYTES CO2 23 24 - 32 04/12/2017 [facility] ELECTROLYTES Chloride Lvl 104 95 - 109 04/12/2017 [facility] ELECTROLYTES Potassium Lvl 4.9 3.5 - 5.1 04/12/2017 [facility] ELECTROLYTES Sodium Lvl 137 135 - 145 04/12/2017 [facility] ELECTROLYTES Creatinine Lvl 4.9 0 0.50 - 1.40 04/12/2017 [facility] ELECTROLYTES BUN 41 7 - 22 04/12/2017 [facility] ELECTROLYTES Glucose Lvl 213 70 - 99 04/12/2017 [facility] ELECTROLYTES eGFR 12 04/12/2017 Result Comment: The eGFR is calculated using the [...] from the National Kidney Disease Education Program (NKDEP) which additionally recommends that when the eGFR is used in patients with extremes of body mass index for purposes of drug dosing, the eGFR should be multiplied by the estimated BMI. [facility] HEMATOLOGY Eosinophils # 0.1 0.0 - 0.5 04/12/2017 [facility] HEMATOLOGY Basophils # 0.1 0.0 - 0.2 04/12/2017 [facility] HEMATOLOGY Segs-Bands # 4.7 1.5 - 8.1 04/12/2017 [facility] HEMATOLOGY Lymphocytes # 2.8 1.0 - 5.5 04/12/2017 [facility] HEMATOLOGY Lymphocytes 34.4 20.0 - 40.0 04/12/2017 [facility] HEMATOLOGY Basophils 0.9 0.0 - 1.0 04/12/2017 [facility] HEMATOLOGY Monocytes 5.4 2.0 - 12.0 04/12/2017 [facility] HEMATOLOGY Eosinophils 1.5 0.0 - 4.0 04/12/2017 [facility] HEMATOLOGY Monocytes # 0.4 0.0 - 0.8 04/12/2017 [facility] HEMATOLOGY Segs 57.8 45.0 - 75.0 04/12/2017 [facility] HEMATOLOGY PT 12.5 12.0 - 14.7 04/12/2017 [facility] HEMATOLOGY INR 0.93 0.85 - 1.17 04/12/2017 [facility] HEMATOLOGY PTT 30.1 22.9 - 35.8 04/12/2017 [facility] HEMATOLOGY MPV 8.5 7.4 - 10.4 04/12/2017 [facility] HEMATOLOGY MCHC 33.2 32.0 - 36.0 04/12/2017 [facility] HEMATOLOGY MCH 30.2 27.0 - 31.0 04/12/2017 [facility] HEMATOLOGY Platelet 317 133 - 450 04/12/2017 [facility] HEMATOLOGY RDW 15.9 11.5 - 14.5 04/12/2017 [facility] HEMATOLOGY RBC 3.44 4.20 - 5.40 04/12/2017 [facility] HEMATOLOGY WBC 8.1 3.7 - 10.4 04/12/2017 [facility] HEMATOLOGY Hct 31.3 36.0 - 48.0 04/12/2017 [facility] HEMATOLOGY Hgb 10.4 12.0 - 16.0 04/12/2017 [facility] HEMATOLOGY MCV 91.0 80.0 - 98.0 04/12/2017 [facility] ELECTROLYTES AGAP 12.7 10.0 - 20.0 01/19/2017 [place] ELECTROLYTES eGFR 13 01/19/2017 Result Comment: The eGFR is calculated using the [...] from the National Kidney Disease Education Program (NKDEP) which additionally recommends that when the eGFR is used in patients with extremes of body mass index for purposes of drug dosing, the eGFR should be multiplied by the estimated BMI. [facility] ELECTROLYTES CO2 20 24 - 32 01/19/2017 [facility] ELECTROLYTES Calcium Lvl 7.2 8.5 - 10.5 01/19/2017 [facility] ELECTROLYTES Potassium Lvl 4.7 3.5 - 5.1 01/19/2017 [facility] ELECTROLYTES Chloride Lvl 110 95 - 109 01/19/2017 [facility] ELECTROLYTES Glucose Lvl 83 70 - 99 01/19/2017 [facility] ELECTROLYTES Creatinine Lvl 4.6 0 0.50 - 1.40 01/19/2017 [facility] ELECTROLYTES BUN 40 7 - 22 01/19/2017 [facility] ELECTROLYTES Sodium Lvl 138 135 - 145 01/19/2017 [facility] HEMATOLOGY Eosinophils # 0.4 0.0 - 0.5 01/19/2017 [facility] HEMATOLOGY Monocytes 11.3 2.0 - 12.0 01/19/2017 [facility] HEMATOLOGY Segs 46.8 45.0 - 75.0 01/19/2017 [facility] Lymphocytes 35.3 20.0 - 40.0 01/19/2017 [facility] HEMATOLOGY Monocytes # 0.8 0.0 - 0.8 01/19/2017 [facility] Lymphocytes # 2.4 1.0 - 5.5 01/19/2017 [facility] HEMATOLOGY Basophils 0.4 0.0 - 1.0 01/19/2017 [facility] HEMATOLOGY Segs-Bands # 3.2 1.5 - 8.1 01/19/2017 [facility] HEMATOLOGY Eosinophils 6.2 0.0 - 4.0 01/19/2017 [facility] HEMATOLOGY MCV 89.4 80.0 - 98.0 01/19/2017 [facility] MCH 29.8 27.0 - 31.0 01/19/2017 [facility] MPV 8.6 7.4 - 10.4 01/19/2017 [facility] Hgb 7.3 12.0 - 16.0 01/19/2017 [facility] HEMATOLOGY Hct 21.8 36.0 - 48.0 01/19/2017 [facility] HEMATOLOGY WBC X 10x3 6.8 3.7 - 10.4 01/19/2017 [facility] HEMATOLOGY RBC X 10x6 2.44 4.20 - 5.40 01/19/2017 [facility] HEMATOLOGY MCHC 33.3 32.0 - 36.0 01/19/2017 [facility] HEMATOLOGY RDW 14.9 11.5 - 14.5 01/19/2017 [facility] HEMATOLOGY Platelet 284 133 - 450 01/19/2017 [facility] BLOOD BANK RESULTS RBC product Product available 1 (01/18/17 6:41 AM) 01/18/2017 Result Comment: 01/18/2017 0 7:17 [id number]
Notified Belén that blood is ready DEION [facility] ANEMIA STUDY Ferritin Lvl 112 5 - 204 01/18/2017 [facility] ANEMIA STUDY TRANSFERRIN 94 212 - 360 01/18/2017 [facility] ANEMIA STUDY % Satur Fe 33 12 - 57 01/18/2017 [facility] ANEMIA STUDY UIBC 73 110 - 370 01/18/2017 [facility] ANEMIA STUDY TIBC 109 228 - 428 01/18/2017 [facility] ANEMIA STUDY Iron 36 30 - 160 01/18/2017 [facility] ELECTROLYTES AGAP 13.5 10.0 - 20.0 01/18/2017 [facility] ELECTROLYTES eGFR 12 01/18/2017 Result Comment: The eGFR is calculated using the [...] from the National Kidney Disease Education Program (NKDEP) which additionally recommends that when the eGFR is used in patients with extremes of body mass index for purposes of drug dosing, the eGFR should be multiplied by the estimated BMI. [facility] ELECTROLYTES Creatinine Lvl 4.6 4 0.50 - 1.40 01/18/2017 [facility] ELECTROLYTES Sodium Lvl 139 135 - 145 01/18/2017 [facility] ELECTROLYTES CO2 20 24 - 32 01/18/2017 [facility] ELECTROLYTES Potassium Lvl 4.5 3.5 - 5.1 01/18/2017 [facility] ELECTROLYTES Chloride Lvl 110 95 - 109 01/18/2017 [facility] ELECTROLYTES Glucose Lvl 101 70 - 99 01/18/2017 [facility] ELECTROLYTES BUN 40 7 - 22 01/18/2017 [facility] ELECTROLYTES Calcium Lvl 7.3 8.5 - 10.5 01/18/2017 [facility] HEMATOLOGY Eosinophils 7.4 0.0 - 4.0 01/18/2017 [facility] HEMATOLOGY Monocytes 11.4 2.0 - 12.0 01/18/2017 [facility] HEMATOLOGY Lymphocytes 35.5 20.0 - 40.0 01/18/2017 [facility] HEMATOLOGY Segs 44.9 45.0 - 75.0 01/18/2017 [facility] HEMATOLOGY Eosinophils # 0.5 0.0 - 0.5 01/18/2017 [facility] HEMATOLOGY Monocytes # 0.8 0.0 - 0.8 01/18/2017 [facility] Lymphocytes # 2.5 1.0 - 5.5 01/18/2017 [facility] Segs-Bands # 3.2 1.5 - 8.1 01/18/2017 [facility] HEMATOLOGY Basophils 0.8 0.0 - 1.0 01/18/2017 [facility] Basophils # 0.1 0.0 - 0.2 01/18/2017 [facility] HEMATOLOGY MPV 8.4 7.4 - 10.4 01/18/2017 [facility] HEMATOLOGY Platelet 283 133 - 450 01/18/2017 [facility] HEMATOLOGY RBC X 10x6 2.19 4.20 - 5.40 01/18/2017 [facility] HEMATOLOGY Hgb 6.5 12.0 - 16.0 01/18/2017 Result Comment: Critical Result(s) tona GILLIS at 01/18/2017 05:49 by D^2. Read back OK. [facility] HEMATOLOGY WBC X 10x3 7.1 3.7 - 10.4 01/18/2017 [facility] HEMATOLOGY Hct 19.5 36.0 - 48.0 01/18/2017 Result Comment: Critical Result(s) tona GILLIS at 01/18/2017 05:49 by D^2. Read back OK. [facility] HEMATOLOGY MCV 89.1 80.0 - 98.0 01/18/2017 [facility] HEMATOLOGY MCHC 33.4 32.0 - 36.0 01/18/2017 [facility] HEMATOLOGY RDW 15.3 11.5 - 14.5 01/18/2017 [facility] HEMATOLOGY MCH 29.7 27.0 - 31.0 01/18/2017 [facility] CHEM PANEL eGFR 13 01/17/2017 Result Comment: The eGFR is calculated using the [...] from the National Kidney Disease Education Program (NKDEP) which additionally recommends that when the eGFR is used in patients with extremes of body mass index for purposes of drug dosing, the eGFR should be multiplied by the estimated BMI. [facility] Glucose Lvl 95 70 - 99 01/17/2017 [facility] CHEM PANEL BUN 43 7 - 22 [facility]/17[facility] Calcium Lvl 7.5 8.5 - 10.5 01/17/2017 [facility] CO2 19 24 - 32 [facility]/17/[facility] Potassium Lvl 5.2 3.5 - 5.1 01/17/2017 [facility] Chloride Lvl 113 95 - 109 01/17/2017 [facility] CHEM PANEL Creatinine Lvl 4.58 0.50 - 1.40 01/17/2017 [facility] CHEM PANEL Sodium Lvl 139 135 - 145 01/17/2017 [facility] CHEM PANEL AGAP 12.2 10.0 - 20.0 01/17/2017 [facility] BLOOD BANK RESULTS ABO/Rh A POS 01/17/2017 [facility] BLOOD BANK RESULTS Antibody Scrn Negative (01/17/17 9:33 AM) 01/17/2017 [facility] HEMATOLOGY Eosinophils # 0.4 0.0 - 0.5 01/17/2017 [facility] HEMATOLOGY Monocytes # 0.7 0.0 - 0.8 01/17/2017 [facility] HEMATOLOGY Basophils 0.5 0.0 - 1.0 01/17/2017 [facility] HEMATOLOGY Lymphocytes # 2.8 1.0 - 5.5 01/17/2017 [facility] HEMATOLOGY Segs-Bands # 4.8 1.5 - 8.1 01/17/2017 [facility] Monocytes 8.4 2.0 - 12.0 01/17/2017 [facility] HEMATOLOGY Lymphocytes 31.5 20.0 - 40.0 01/17/2017 [facility] HEMATOLOGY Eosinophils 4.4 0.0 - 4.0 01/17/2017 [facility] Segs 55.2 45.0 - 75.0 01/17/2017 [facility] HEMATOLOGY MCHC 33.2 32.0 - 36.0 01/17/2017 [facility] MCH 29.8 27.0 - 31.0 01/17/2017 [facility] HEMATOLOGY Platelet 229 133 - 450 01/17/2017 [facility] HEMATOLOGY RDW 15.4 11.5 - 14.5 01/17/2017 [facility] HEMATOLOGY MPV 10.0 7.4 - 10.4 01/17/2017 [facility] WBC X 10x3 8.8 3.7 - 10.4 01/17/2017 [facility] HEMATOLOGY Hgb 6.9 12.0 - 16.0 01/17/2017 Result Comment: Critical Result(s) tona estevez to Darien Ochoa at 01/17/2017 05:40 by sp. Read back OK. [facility] HEMATOLOGY RBC X 10x6 2.31 4.20 - 5.40 01/17/2017 [facility] HEMATOLOGY MCV 89.8 80.0 - 98.0 01/17/2017 [facility] HEMATOLOGY Hct 20.8 36.0 - 48.0 01/17/2017 [facility] HEMATOLOGY RBC Morph Rosina l (01/15/17 5:03 AM) 01/15/2017 [facility] HEMATOLOGY Plt Morph Rosina l (01/15/17 5:03 AM) 01/15/2017 [facility] CHEM PANEL Lactic Acid Lvl 0.3 0.5 - 2.2 01/14/2017 [place] URINE AND STOOL UA Color Yellow *NA* (01/14/17 2:58 AM) Yellow 01/14/2017 [place] URINE AND STOOL UA Urobilinogen 0.2 0.1 - 1.0 01/14/2017 [place] URINE AND STOOL UA Nitrite Negative (01/14/17 2:58 AM) Negative 01/14/2017 [place] URINE AND STOOL UA Leuk Est Trace *ABN* (01/14/17 2:58 AM) Negative 01/14/2017 [place] URINE AND STOOL UA Bili Negative *NA* (01/14/17 2:58 AM) Negative [facility] Blood Small *ABN* (01/14/17 2:58 AM) Negative 01/14/2017 [place] URINE AND STOOL UA RBC 3-5 /HPF 0 - 2 01/14/2017 [place] URINE AND STOOL UA Bacteria Moderate /HPF None Seen /HPF 01/14/2017 [place] URINE AND STOOL UA Sq Epi Moderate /LPF Few /LPF 01/14/2017 [facility] URINE AND STOOL UA [place] Yeast Few /HPF None Seen /HPF 01/14/2017 [facility] URINE AND STOOL UA WBC 11-20 /HPF None Seen /HPF 01/14/2017 [place] URINE AND STOOL UA Protein >=300 mg/dL Negative mg/dL 01/14/2017 [place] URINE AND STOOL UA Glucose Negative (01/14/17 2:58 AM) Negative [facility] Turbidity Clear (01/14/17 2:58 AM) Clear 01/14/2017 [facility] URINE AND STOOL UA Ketones Negative *NA* (01/14/17 2:58 AM) Negative 01/14/2017 [place] URINE AND STOOL UA Spec Grav 1.020 <=1.030 01/14/2017 [facility] URINE AND STOOL UA pH 6.0 5.0 - 8.0 01/14/2017 [facility] CHEM PANEL A/G Ratio 0.5 0.7 - 1.6 01/14/2017 [facility] CHEM PANEL B/C Ratio 9 6 - 25 01/14/2017 [facility] CHEM PANEL Globulin 4.6 2.7 - 4.2 01/14/2017 [facility] CHEM PANEL Alk Phos 78 39 - 136 01/14/2017 [facility] CHEM PANEL Bili Total 0.1 0.2 - 1.3 01/14/2017 [facility] CHEM PANEL ALANINE AMINOTRANSFERASE 12 0 - 65 01/14/2017 [facility] CHEM PANEL ASPARTATE TRANSAMINASE 19 0 - 37 01/14/2017 [facility] CHEM PANEL Albumin Lvl 2.1 3.5 - 5.0 01/14/2017 [facility] CHEM PANEL Total Protein 6.7 6.4 - 8.4 01/14/2017 [facility] ELECTROLYTES AGAP 14.9 10.0 - 20.0 01/10/2017 [facility] ELECTROLYTES CO2 20 24 - 32 01/10/2017 [facility] ELECTROLYTES Chloride Lvl 110 95 - 109 01/10/2017 [facility] ELECTROLYTES Calcium Lvl 7.7 8.5 - 10.5 01/10/2017 [facility] ELECTROLYTES Potassium Lvl 4.9 3.5 - 5.1 01/10/2017 [facility] ELECTROLYTES BUN 32 7 - 22 01/10/2017 [facility] ELECTROLYTES Glucose Lvl 136 70 - 99 01/10/2017 [facility] ELECTROLYTES Sodium Lvl 140 135 - 145 01/10/2017 [facility] ELECTROLYTES Creatinine Lvl 4.7 4 0.50 - 1.40 01/10/2017 [facility] ELECTROLYTES eGFR 12 01/10/2017 Result Comment: The eGFR is calculated using the [...] from the National Kidney Disease Education Program (NKDEP) which additionally recommends that when the eGFR is used in patients with extremes of body mass index for purposes of drug dosing, the eGFR should be multiplied by the estimated BMI. [facility] HEMATOLOGY MPV 7.0 7.4 - 10.4 01/10/2017 [facility] Platelet 364 133 - 450 01/10/2017 [facility] MCHC 33.1 32.0 - 36.0 01/10/2017 [facility] MCV 88.9 80.0 - 98.0 01/10/2017 [facility] RDW 15.2 11.5 - 14.5 01/10/2017 [facility] Hgb 8.1 12.0 - 16.0 01/10/2017 [facility] MCH 29.4 27.0 - 31.0 01/10/2017 [facility] Hct 24.6 36.0 - 48.0 01/10/2017 [facility] RBC X 10x6 2.76 4.20 - 5.40 01/10/2017 [facility] WBC X 10x3 4.9 3.7 - 10.4 01/10/2017 [facility] HEMATOLOGY Basophils # 0.1 0.0 - 0.2 01/10/2017 [facility] Eosinophils # 0.3 0.0 - 0.5 01/10/2017 [facility] HEMATOLOGY Lymphocytes # 2.1 1.0 - 5.5 01/10/2017 [facility] HEMATOLOGY Monocytes # 0.4 0.0 - 0.8 01/10/2017 [facility] Basophils 1.2 0.0 - 1.0 01/10/2017 [facility] Segs-Bands # 2.0 1.5 - 8.1 01/10/2017 [facility] Lymphocytes 43.6 20.0 - 40.0 01/10/2017 [facility] Monocytes 7.6 2.0 - 12.0 01/10/2017 [facility] HEMATOLOGY Segs 42.2 45.0 - 75.0 01/10/2017 [facility] HEMATOLOGY Eosinophils 5.4 0.0 - 4.0 01/10/2017 [facility] ELECTROLYTES AGAP 16.8 10.0 - 20.0 01/09/2017 [facility] ELECTROLYTES eGFR 13 01/09/2017 Result Comment: The eGFR is calculated using the [...] from the National Kidney Disease Education Program (NKDEP) which additionally recommends that when the eGFR is used in patients with extremes of body mass index for purposes of drug dosing, the eGFR should be multiplied by the estimated BMI. [facility] ELECTROLYTES Potassium Lvl 4.8 3.5 - 5.1 01/09/2017 [facility] ELECTROLYTES Sodium Lvl 141 135 - 145 01/09/2017 [facility] ELECTROLYTES Creatinine Lvl 4.5 8 0.50 - 1.40 01/09/2017 [facility] ELECTROLYTES CO2 19 24 - 32 01/09/2017 [facility] ELECTROLYTES Chloride Lvl 110 95 - 109 01/09/2017 [facility] ELECTROLYTES Calcium Lvl 7.4 8.5 - 10.5 01/09/2017 [facility] ELECTROLYTES BUN 32 7 - 22 01/09/2017 [facility] ELECTROLYTES Glucose Lvl 107 70 - 99 01/09/2017 [facility] HEMATOLOGY MPV 7.2 7.4 - 10.4 01/09/2017 [facility] RDW 15.2 11.5 - 14.5 01/09/2017 [facility] MCHC 33.1 32.0 - 36.0 01/09/2017 [facility] Platelet 347 133 - 450 01/09/2017 [facility] MCH 29.2 27.0 - 31.0 01/09/2017 [facility] HEMATOLOGY MCV 88.2 80.0 - 98.0 01/09/2017 [facility] HEMATOLOGY RBC X 10x6 2.59 4.20 - 5.40 01/09/2017 [facility] WBC X 10x3 5.2 3.7 - 10.4 01/09/2017 [facility] Hgb 7.6 12.0 - 16.0 01/09/2017 [facility] Hct 22.8 36.0 - 48.0 01/09/2017 [facility] Lymphocytes # 2.4 1.0 - 5.5 01/09/2017 [facility] Eosinophils # 0.2 0.0 - 0.5 01/09/2017 [facility] HEMATOLOGY Monocytes # 0.4 0.0 - 0.8 01/09/2017 [facility] HEMATOLOGY Eosinophils 3.1 0.0 - 4.0 01/09/2017 [facility] HEMATOLOGY Segs-Bands # 2.1 1.5 - 8.1 01/09/2017 [facility] HEMATOLOGY Basophils 0.7 0.0 - 1.0 01/09/2017 [facility] HEMATOLOGY Monocytes 8.6 2.0 - 12.0 01/09/2017 [facility] HEMATOLOGY Lymphocytes 47.2 20.0 - 40.0 01/09/2017 [facility] HEMATOLOGY Segs 40.4 45.0 - 75.0 01/09/2017 [facility] URINE CHEM U Eos 0-2 *ABN* (01/08/17 7:18 PM) None Seen 01/09/2017 [facility] CHEM PANEL eGFR 13 01/08/2017 Result Comment: The eGFR is calculated using the [...] from the National Kidney Disease Education Program (NKDEP) which additionally recommends that when the eGFR is used in patients with extremes of body mass index for purposes of drug dosing, the eGFR should be multiplied by the estimated BMI. [facility] CHEM PANEL Creatinine Lvl 4.48 0.50 - 1.40 01/08/2017 [facility] CHEM PANEL Glucose Lvl 92 70 - 99 [facility]/08/[facility] BUN 32 7 - 22 01/08/2017 [facility] CHEM PANEL CO2 21 24 - 32 01/08/2017 [facility] CHEM PANEL Calcium Lvl 7.7 8.5 - 10.5 01/08/2017 [facility] Sodium Lvl 138 135 - 145 01/08/2017 [facility] Potassium Lvl 5.0 3.5 - 5.1 01/08/2017 [facility] CHEM PANEL Chloride Lvl 110 95 - 109 01/08/2017 [facility] CHEM PANEL AGAP 12.0 10.0 - 20.0 01/08/2017 [facility] HEMATOLOGY MPV 8.8 7.4 - 10.4 01/08/2017 [facility] Platelet 349 133 - 450 01/08/2017 [facility] HEMATOLOGY RDW 15.3 11.5 - 14.5 01/08/2017 [facility] MCH 29.7 27.0 - 31.0 01/08/2017 [facility] HEMATOLOGY MCV 88.5 80.0 - 98.0 01/08/2017 [facility] MCHC 33.6 32.0 - 36.0 01/08/2017 [facility] HEMATOLOGY Hgb 8.0 12.0 - 16.0 01/08/2017 [facility] HEMATOLOGY Hct 23.7 36.0 - 48.0 01/08/2017 [facility] HEMATOLOGY RBC X 10x6 2.67 4.20 - 5.40 01/08/2017 [facility] HEMATOLOGY WBC X 10x3 5.3 3.7 - 10.4 01/08/2017 [facility] HEMATOLOGY Monocytes 9.5 2.0 - 12.0 01/08/2017 [facility] HEMATOLOGY Basophils 1.1 0.0 - 1.0 01/08/2017 [facility] HEMATOLOGY Lymphocytes 45.6 20.0 - 40.0 01/08/2017 [facility] HEMATOLOGY Segs 39.9 45.0 - 75.0 01/08/2017 [facility] HEMATOLOGY Eosinophils 3.9 0.0 - 4.0 01/08/2017 [facility] HEMATOLOGY Segs-Bands # 2.1 1.5 - 8.1 01/08/2017 [facility] HEMATOLOGY Lymphocytes # 2.4 1.0 - 5.5 01/08/2017 [facility] HEMATOLOGY Basophils # 0.1 0.0 - 0.2 01/08/2017 [facility] HEMATOLOGY Eosinophils # 0.2 0.0 - 0.5 01/08/2017 [facility] HEMATOLOGY Monocytes # 0.5 0.0 - 0.8 01/08/2017 [facility] HEMATOLOGY Basophils # 0.1 0.0 - 0.2 01/07/2017 [facility] URINE AND STOOL UA Urobilinogen 0.2 0.1 - 1.0 01/06/2017 [place] URINE AND STOOL UA Nitrite Negative (01/06/17 2:48 PM) Negative 01/06/2017 [place] URINE AND STOOL UA Leuk Est Large *ABN* (01/06/17 2:48 PM) Negative 01/06/2017 [place] URINE AND STOOL UA Blood Moderate *ABN* (01/06/17 2:48 PM) Negative 01/06/2017 [place] URINE AND STOOL UA Bili Negative *NA* (01/06/17 2:48 PM) Negative 01/06/2017 [place] URINE AND STOOL UA pH 6.5 5.0 - 8.0 01/06/2017 [place] URINE AND STOOL UA Ketones Negative *NA* (01/06/17 2:48 PM) Negative 01/06/2017 [place] URINE AND STOOL UA Glucose Negative (01/06/17 2:48 PM) Negative 01/06/2017 [place] URINE AND STOOL UA Color Yellow *NA* (01/06/17 2:48 PM) Yellow 01/06/2017 [place] URINE AND STOOL UA Bacteria Many /HPF None Seen /HPF 01/06/2017 [place] URINE AND STOOL UA Spec Grav 1.015 <=1.030 01/06/2017 [place] URINE AND STOOL UA Turbidity Cloudy *ABN* (01/06/17 2:48 PM) Clear 01/06/2017 [place] URINE AND STOOL UA Protein >=300 mg/dL Negative mg/dL 01/06/2017 [place] URINE AND STOOL UA RBC 11-20 /HPF 0 - 2 01/06/2017 [place] URINE AND STOOL UA WBC >100 /HPF None Seen /HPF 01/06/2017 [place] URINE AND STOOL UA Sq Epi None Seen (01/06/17 2:48 PM) Few 01/06/2017 [facility] URINE CHEM U Prot/Creat 13.4 01/06/2017 [facility] URINE CHEM U Protein 456.0 01/06/2017 [facility] URINE CHEM U Creatinine 34.00 01/06/2017 [facility] CHEM PANEL Magnesium Lvl 1.9 1.8 - 2.4 01/04/2017 [facility] CHEM PANEL Total Protein 5.4 6.4 - 8.4 01/04/2017 [facility] CHEM PANEL Albumin Lvl 1.6 3.5 - 5.0 01/04/2017 [facility] CHEM PANEL ALANINE AMINOTRANSFERASE 9 0 - 65 01/04/2017 [facility] CHEM PANEL ASPARTATE TRANSAMINASE 7 0 - 37 01/04/2017 [facility] CHEM PANEL Alk Phos 71 39 - 136 01/04/2017 [facility] CHEM PANEL Bili Total 0.2 0.2 - 1.3 01/04/2017 [facility] CHEM PANEL A/G Ratio 0.4 0.7 - 1.6 01/04/2017 [facility] CHEM PANEL Globulin 3.8 2.7 - 4.2 01/04/2017 [facility] CHEM PANEL B/C Ratio 10 6 - 25 01/04/2017 [facility] HEMATOLOGY aPTT 35.2 22.9 - 35.8 01/04/2017 [facility] HEMATOLOGY PROTIME 13.7 12.0 - 14.7 01/04/2017 [facility] HEMATOLOGY INR 1.03 0.85 - 1.17 01/04/2017 [facility] URINE AND STOOL UA RBC 51-100 /HPF 0 - 2 01/03/2017 [facility] URINE AND STOOL UA Bacteria Few /HPF None Seen /HPF 01/03/2017 [facility] URINE AND STOOL UA Nitrite Negative (01/03/17 4:46 PM) Negative 01/03/2017 [facility] URINE AND STOOL UA Blood Large *ABN* (01/03/17 4:46 PM) Negative 01/03/2017 [facility] URINE AND STOOL UA Urobilinogen 0.2 0.1 - 1.0 01/03/2017 [facility] URINE AND STOOL UA Leuk Est Negative (01/03/17 4:46 PM) Negative 01/03/2017 [facility] URINE AND STOOL UA WBC 3-5 /HPF None Seen /HPF 01/03/2017 [facility] URINE AND STOOL UA Sq Epi Few /LPF Few /LPF 01/03/2017 [facility] URINE AND STOOL UA Spec Grav 1.020 <=1.030 01/03/2017 [facility] URINE AND STOOL UA Turbidity Clear (01/03/17 4:46 PM) Clear 01/03/2017 [facility] URINE AND STOOL UA Color Yellow *NA* (01/03/17 4:46 PM) Yellow 01/03/2017 [facility] URINE AND STOOL UA Glucose Negative (01/03/17 4:46 PM) Negative 01/03/2017 [facility] URINE AND STOOL UA Protein Negative (01/03/17 4:46 PM) Negative 01/03/2017 [facility] URINE AND STOOL UA pH 5.5 5.0 - 8.0 01/03/2017 [facility] URINE AND STOOL UA Bili Negative *NA* (01/03/17 4:46 PM) Negative 01/03/2017 [facility] URINE AND STOOL UA Ketones Negative *NA* (01/03/17 4:46 PM) Negative 01/03/2017 [facility] CHEM PANEL Ketone Quantitative 0.06 <=0.27 mmol/L 01/03/2017 [facility] CHEM PANEL Lactic Acid Lvl 1.0 0.5 - 2.2 01/03/2017 [facility] CHEM PANEL Phosphorus 4.5 2.5 - 4.5 01/03/2017 [facility] CHEM PANEL Lipase Lvl 202 73 - 393 01/03/2017 [facility] CHEM PANEL Magnesium Lvl 2.0 1.8 - 2.4 01/03/2017 [facility] CHEM PANEL Bili Total 0.2 0.2 - 1.3 01/03/2017 [facility] CHEM PANEL ASPARTATE TRANSAMINASE 6 0 - 37 01/03/2017 [facility] CHEM PANEL Alk Phos 82 39 - 136 01/03/2017 [facility] CHEM PANEL Albumin Lvl 1.8 3.5 - 5.0 01/03/2017 [facility] CHEM PANEL Total Protein 6.2 6.4 - 8.4 01/03/2017 [facility] CHEM PANEL ALANINE AMINOTRANSFERASE 9 0 - 65 01/03/2017 [facility] CHEM PANEL A/G Ratio 0.4 0.7 - 1.6 01/03/2017 [facility] CHEM PANEL B/C Ratio 10 6 - 25 01/03/2017 [facility] CHEM PANEL Globulin 4.4 2.7 - 4.2 01/03/2017 [facility] URINE AND STOOL UA WBC 6-10 /HPF None Seen /HPF 12/28/2016 [facility] URINE AND STOOL UA RBC 0-2 /HPF 0 - 2 12/28/2016 [facility] URINE AND STOOL UA Bili Negative *NA* (12/27/16 8:28 PM) Negative 12/28/2016 [facility] URINE AND STOOL UA Blood Small *ABN* (12/27/16 8:28 PM) Negative 12/28/2016 [facility] URINE AND STOOL UA Ketones Negative *NA* (12/27/16 8:28 PM) Negative 12/28/2016 [facility] URINE AND STOOL UA Bacteria None Seen (12/27/16 8:28 PM) None Seen 12/28/2016 [facility] URINE AND STOOL UA Urobilinogen 0.2 0.1 - 1.0 12/28/2016 [facility] URINE AND STOOL UA Leuk Est Trace *ABN* (12/27/16 8:28 PM) Negative 12/28/2016 [facility] URINE AND STOOL UA Sq Epi Rare /LPF Few /LPF 12/28/2016 [facility] URINE AND STOOL UA Nitrite Negative (12/27/16 8:28 PM) Negative 12/28/2016 [facility] URINE AND STOOL UA Glucose 100 mg/dL Negative mg/dL 12/28/2016 [facility] URINE AND STOOL UA Spec Grav 1.015 <=1.030 12/28/2016 [facility] URINE AND STOOL UA pH 6.5 5.0 - 8.0 12/28/2016 [facility] URINE AND STOOL UA Protein >=300 mg/dL Negative mg/dL 12/28/2016 [facility] URINE AND STOOL UA Color Yellow *NA* (12/27/16 8:28 PM) Yellow 12/28/2016 [facility] URINE AND STOOL UA Turbidity Clear (12/27/16 8:28 PM) Clear 12/28/2016 [facility] URINE CHEM U Preg Negat anitra (12/27/16 8:28 PM) Negative 12/28/2016 [facility] CHEM PANEL Lipase Lvl 95 73 - 393 12/27/2016 [facility] CHEM PANEL A/G Ratio 0.5 0.7 - 1.6 12/27/2016 [facility] CHEM PANEL AGAP 11.2 10.0 - 20.0 12/27/2016 [facility] CHEM PANEL B/C Ratio 10 6 - 25 12/27/2016 [facility] CHEM PANEL Globulin 4.6 2.7 - 4.2 12/27/2016 [facility] CHEM PANEL eGFR 18 12/27/2016 Result Comment: The eGFR is calculated using the [...] from the National Kidney Disease Education Program (NKDEP) which additionally recommends that when the eGFR is used in patients with extremes of body mass index for purposes of drug dosing, the eGFR should be multiplied by the estimated BMI. [facility] Potassium Lvl 5.2 3.5 - 5.1 12/27/2016 [facility] CHEM PANEL BUN 33 7 - 22 12/27/2016 [facility] CHEM PANEL Creatinine Lvl 3.38 0.50 - 1.40 12/27/2016 [facility] CHEM PANEL Sodium Lvl 139 135 - 145 12/27/2016 [facility] CHEM PANEL CO2 23 24 - 32 12/27/2016 [facility] Chloride Lvl 110 95 - 109 12/27/2016 [facility] CHEM PANEL Calcium Lvl 8.3 8.5 - 10.5 12/27/2016 [facility] CHEM PANEL Total Protein 6.8 6.4 - 8.4 12/27/2016 [facility] CHEM PANEL Albumin Lvl 2.2 3.5 - 5.0 12/27/2016 [facility] CHEM PANEL ALANINE AMINOTRANSFERASE 12 0 - 65 12/27/2016 [facility] CHEM PANEL ASPARTATE TRANSAMINASE 12 0 - 37 12/27/2016 [facility] CHEM PANEL Alk Phos 93 39 - 136 12/27/2016 [facility] CHEM PANEL Bili Total 0.2 0.2 - 1.3 12/27/2016 [facility] CHEM PANEL Glucose Lvl 128 70 - 99 12/27/2016 [facility] HEMATOLOGY MPV 8.0 7.4 - 10.4 12/27/2016 [facility] HEMATOLOGY MCH 29.1 27.0 - 31.0 12/27/2016 [facility] HEMATOLOGY MCV 88.1 80.0 - 98.0 12/27/2016 [facility] HEMATOLOGY Hct 36.0 36.0 - 48.0 12/27/2016 [facility] HEMATOLOGY Hgb 11.9 12.0 - 16.0 12/27/2016 [facility] HEMATOLOGY MCHC 33.0 32.0 - 36.0 12/27/2016 [facility] HEMATOLOGY Platelet 365 133 - 450 12/27/2016 [facility] HEMATOLOGY RDW 15.7 11.5 - 14.5 12/27/2016 [facility] HEMATOLOGY RBC X 10x6 4.09 4.20 - 5.40 12/27/2016 [facility] HEMATOLOGY WBC X 10x3 8.0 3.7 - 10.4 12/27/2016 [facility] HEMATOLOGY Basophils # 0.1 0.0 - 0.2 12/27/2016 [facility] HEMATOLOGY Monocytes # 0.5 0.0 - 0.8 12/27/2016 [facility] HEMATOLOGY Eosinophils # 0.4 0.0 - 0.5 12/27/2016 [facility] HEMATOLOGY Lymphocytes # 2.2 1.0 - 5.5 12/27/2016 [facility] HEMATOLOGY Basophils 1.3 0.0 - 1.0 12/27/2016 [facility] HEMATOLOGY Segs-Bands # 4.9 1.5 - 8.1 12/27/2016 [facility] HEMATOLOGY Eosinophils 4.7 0.0 - 4.0 12/27/2016 [facility] Lymphocytes 27.5 20.0 - 40.0 12/27/2016 [facility] Monocytes 6.0 2.0 - 12.0 12/27/2016 [facility] HEMATOLOGY Segs 60.5 45.0 - 75.0 12/27/2016 [facility] URINE AND STOOL UA Bili Negative *NA* (12/20/16 5:58 AM) Negative 12/20/2016 [facility] URINE AND STOOL UA Urobilinogen 0.2 0.1 - 1.0 12/20/2016 [facility] URINE AND STOOL UA Nitrite Negative (12/20/16 5:58 AM) Negative 12/20/2016 [facility] URINE AND STOOL UA Leuk Est Negative (12/20/16 5:58 AM) Negative 12/20/2016 [facility] URINE AND STOOL UA Blood Small *ABN* (12/20/16 5:58 AM) Negative 12/20/2016 [facility] URINE AND STOOL UA Spec Grav 1.020 <=1.030 12/20/2016 [facility] URINE AND STOOL UA Turbidity Clear (8/29/17 5:58 AM) Clear 12/20/2016 [facility] URINE AND STOOL UA pH 6.5 5.0 - 8.0 12/20/2016 [facility] URINE AND STOOL UA Glucose 250 mg/dL Negative mg/dL 12/20/2016 [facility] URINE AND STOOL UA Ketones Negative *NA* (12/20/16 5:58 AM) Negative 12/20/2016 [facility] URINE AND STOOL UA Protein >=300 mg/dL Negative mg/dL 12/20/2016 [facility] URINE AND STOOL UA Color Yellow *NA* (12/20/16 5:58 AM) Yellow 12/20/2016 [facility] URINE AND STOOL UA RBC 21-50 /HPF 0 - 2 12/20/2016 [facility] URINE AND STOOL UA WBC 6-10 /HPF None Seen /HPF 12/20/2016 [facility] URINE AND STOOL UA Amorph Tamera Few /HPF None Seen /HPF 12/20/2016 [facility] URINE AND STOOL UA Mucus Few /LPF None Seen /LPF 12/20/2016 [facility] URINE AND STOOL UA Bacteria Moderate /HPF None Seen /HPF 12/20/2016 [facility] URINE AND STOOL UA Sq Epi Moderate /LPF Few /LPF 12/20/2016 [facility] URINE AND STOOL UA [place] Yeast Moderate /HPF None Seen /HPF 12/20/2016 [facility] CHEM PANEL eGFR 15 12/20/2016 Result Comment: The eGFR is calculated using the [...] from the National Kidney Disease Education Program (NKDEP) which additionally recommends that when the eGFR is used in patients with extremes of body mass index for purposes of drug dosing, the eGFR should be multiplied by the estimated BMI. [facility] CHEM PANEL Calcium Lvl 8.7 8.5 - 10.5 12/20/2016 [facility] CHEM PANEL Chloride Lvl 111 95 - 109 12/20/2016 [facility] CHEM PANEL CO2 22 24 - 32 12/20/2016 [facility] CHEM PANEL Potassium Lvl 4.1 3.5 - 5.1 12/20/2016 [facility] CHEM PANEL Sodium Lvl 143 135 - 145 12/20/2016 [facility] CHEM PANEL BUN 35 7 - 22 12/20/2016 [facility] CHEM PANEL Creatinine Lvl 3.54 0.50 - 1.40 12/20/2016 [facility] CHEM PANEL Glucose Lvl 182 70 - 99 12/20/2016 [facility] CHEM PANEL Total Protein 6.9 6.4 - 8.4 12/20/2016 [facility] CHEM PANEL AST 17 0 - 37 12/20/2016 [facility] CHEM PANEL ALT 10 0 - 65 12/20/2016 [facility] CHEM PANEL Albumin Lvl 2.3 3.5 - 5.0 12/20/2016 [facility] CHEM PANEL Alk Phos 89 39 - 136 12/20/2016 [facility] CHEM PANEL Bili Total 0.2 0.2 - 1.3 12/20/2016 [facility] CHEM PANEL B/C Ratio 10 6 - 25 12/20/2016 [facility] CHEM PANEL AGAP 14.1 10.0 - 20.0 12/20/2016 [facility] CHEM PANEL A/G Ratio 0.5 0.7 - 1.6 12/20/2016 [facility] CHEM PANEL Globulin 4.6 2.7 - 4.2 12/20/2016 [facility] CHEM PANEL Lipase Lvl 95 73 - 393 12/20/2016 [facility] HEMATOLOGY MPV 7.8 7.4 - 10.4 12/20/2016 [facility] HEMATOLOGY Platelet 415 133 - 450 12/20/2016 [facility] HEMATOLOGY RDW 16.2 11.5 - 14.5 12/20/2016 [facility] HEMATOLOGY MCV 86.3 80.0 - 98.0 12/20/2016 [facility] HEMATOLOGY MCH 28.0 27.0 - 31.0 12/20/2016 [facility] HEMATOLOGY MCHC 32.4 32.0 - 36.0 12/20/2016 [facility] HEMATOLOGY RBC 4.42 4.20 - 5.40 12/20/2016 [facility] HEMATOLOGY Hct 38.1 36.0 - 48.0 12/20/2016 [facility] HEMATOLOGY Hgb 12.4 12.0 - 16.0 12/20/2016 [facility] HEMATOLOGY WBC 12.9 3.7 - 10.4 12/20/2016 [facility] HEMATOLOGY Monocytes # 0.5 0.0 - 0.8 12/20/2016 [facility] HEMATOLOGY Segs-Bands # 10.2 1.5 - 8.1 12/20/2016 [facility] HEMATOLOGY Lymphocytes # 2.0 1.0 - 5.5 12/20/2016 [facility] HEMATOLOGY Eosinophils 0.7 0.0 - 4.0 12/20/2016 [facility] HEMATOLOGY Basophils 1.0 0.0 - 1.0 12/20/2016 [facility] [facility] HEMATOLOGY Monocytes 3.7 2.0 - 12.0 12/20/2016 [facility] HEMATOLOGY Basophils # 0.1 0.0 - 0.2 12/20/2016 [facility] HEMATOLOGY Eosinophils # 0.1 0.0 - 0.5 12/20/2016 [facility] HEMATOLOGY Lymphocytes 15.3 20.0 - 40.0 12/20/2016 [facility] HEMATOLOGY Segs 79.3 45.0 - 75.0 12/20/2016 [facility] CHEM PANEL eGFR 16 12/14/2016 Result Comment: The eGFR is calculated using the [...] from the National Kidney Disease Education Program (NKDEP) which additionally recommends that when the eGFR is used in patients with extremes of body mass index for purposes of drug dosing, the eGFR should be multiplied by the estimated BMI. [facility] CHEM PANEL AGAP 14.0 10.0 - 20.0 12/14/2016 [place] CHEM PANEL B/C Ratio 9 6 - 25 12/14/2016 [facility] CHEM PANEL ASPARTATE TRANSAMINASE 8 0 - 37 12/14/2016 [place] CHEM PANEL Globulin 3.5 2.7 - 4.2 12/14/2016 [place] CHEM PANEL A/G Ratio 0.5 0.7 - 1.6 12/14/2016 [place] CHEM PANEL Chloride Lvl 113 95 - 109 12/14/2016 [place] CHEM PANEL CO2 21 24 - 32 12/14/2016 [place] CHEM PANEL Calcium Lvl 7.7 8.5 - 10.5 12/14/2016 [facility] CHEM PANEL Bili Total 0.2 0.2 - 1.3 12/14/2016 [facility] CHEM PANEL Total Protein 5.2 6.4 - 8.4 12/14/2016 [facility] CHEM PANEL ALANINE AMINOTRANSFERASE 8 0 - 65 12/14/2016 [facility] CHEM PANEL Albumin Lvl 1.7 3.5 - 5.0 12/14/2016 [facility] CHEM PANEL Alk Phos 64 39 - 136 12/14/2016 [facility] CHEM PANEL Creatinine Lvl 3.82 0.50 - 1.40 [facility]/14[facility] Sodium Lvl 144 135 - 145 12/14/2016 [facility] CHEM PANEL Potassium Lvl 4.0 3.5 - 5.1 12/14/2016 [facility] CHEM PANEL Glucose Lvl 83 70 - 99 12/14/2016 [facility] CHEM PANEL BUN 33 7 - 22 12/14/2016 [facility] HEMATOLOGY PROTIME 14.8 12.0 - 14.7 12/14/2016 [facility] HEMATOLOGY INR 1.14 0.85 - 1.17 12/14/2016 [facility] HEMATOLOGY aPTT 30.3 22.9 - 35.8 12/14/2016 [facility] HEMATOLOGY MPV 8.4 7.4 - 10.4 12/14/2016 [facility] HEMATOLOGY RDW 16.2 11.5 - 14.5 12/14/2016 [facility] HEMATOLOGY Platelet 270 133 - 450 12/14/2016 [facility] HEMATOLOGY MCH 29.1 27.0 - 31.0 12/14/2016 [facility] HEMATOLOGY MCHC 33.5 32.0 - 36.0 12/14/2016 [facility] HEMATOLOGY Hct 27.9 36.0 - 48.0 12/14/2016 [facility] HEMATOLOGY MCV 86.8 80.0 - 98.0 12/14/2016 [facility] HEMATOLOGY RBC X 10x6 3.21 4.20 - 5.40 12/14/2016 [facility] HEMATOLOGY WBC X 10x3 6.9 3.7 - 10.4 12/14/2016 [facility] HEMATOLOGY Hgb 9.3 12.0 - 16.0 12/14/2016 [facility] HEMATOLOGY Eosinophils # 0.1 0.0 - 0.5 12/14/2016 [facility] HEMATOLOGY Basophils # 0.1 0.0 - 0.2 12/14/2016 [facility] HEMATOLOGY Lymphocytes 36.8 20.0 - 40.0 12/14/2016 [facility] HEMATOLOGY Segs 55.1 45.0 - 75.0 12/14/2016 [facility] HEMATOLOGY Lymphocytes # 2.5 1.0 - 5.5 12/14/2016 [facility] HEMATOLOGY Monocytes # 0.4 0.0 - 0.8 12/14/2016 [facility] HEMATOLOGY Segs-Bands # 3.8 1.5 - 8.1 12/14/2016 [facility] HEMATOLOGY Basophils 1.2 0.0 - 1.0 12/14/2016 [facility] Monocytes 5.6 2.0 - 12.0 12/14/2016 [facility] HEMATOLOGY Eosinophils 1.3 0.0 - 4.0 12/14/2016 [facility] DRUG SCREEN UDS Note See Note (12/13/16 5:40 PM) 12/13/2016 [facility] DRUG SCREEN U Amph Scr Nega tive *NA* (12/13/16 5:40 PM) Negative 12/13/2016 [facility] DRUG SCREEN U Cocaine Scr Nega tive *NA* (12/13/16 5:40 PM) Negative 12/13/2016 [facility] DRUG SCREEN U Esther Scr Nega tive *NA* (12/13/16 5:40 PM) Negative 12/13/2016 [facility] DRUG SCREEN U Opiate Scr Posi tive *ABN* (12/13/16 5:40 PM) Negative 12/13/2016 [facility] DRUG SCREEN U Phencyc Scr Nega tive *NA* (12/13/16 5:40 PM) Negative 12/13/2016 [facility] DRUG SCREEN U Cannab Scr Nega tive *NA* (12/13/16 5:40 PM) Negative 12/13/2016 [facility] DRUG SCREEN U Benzodia Scr Nega tive *NA* (12/13/16 5:40 PM) Negative 12/13/2016 [facility] URINE AND STOOL UA Bacteria Moderate /HPF None Seen /HPF 12/13/2016 [facility] URINE AND STOOL UA RBC 6-10 /HPF 0 - 2 12/13/2016 [facility] URINE AND STOOL UA Leuk Est Trace *ABN* (12/13/16 5:40 PM) Negative 12/13/2016 [facility] URINE AND STOOL UA Sq Epi Occasional /LPF Few /LPF 12/13/2016 [facility] URINE AND STOOL UA WBC 21-50 /HPF None Seen /HPF 12/13/2016 [facility] URINE AND STOOL UA pH 6.5 5.0 - 8.0 12/13/2016 [facility] URINE AND STOOL UA Protein >=300 mg/dL Negative mg/dL 12/13/2016 [facility] URINE AND STOOL UA Glucose 100 mg/dL Negative mg/dL 12/13/2016 [facility] URINE AND STOOL UA Ketones Negative *NA* (12/13/16 5:40 PM) Negative 12/13/2016 [facility] URINE AND STOOL UA Bili Negative *NA* (12/13/16 5:40 PM) Negative 12/13/2016 [facility] URINE AND STOOL UA Blood Small *ABN* (12/13/16 5:40 PM) Negative 12/13/2016 [facility] URINE AND STOOL UA Nitrite Negative (12/13/16 5:40 PM) Negative 12/13/2016 [facility] URINE AND STOOL UA Urobilinogen 0.2 0.1 - 1.0 12/13/2016 [facility] URINE AND STOOL UA Color Yellow *NA* (12/13/16 5:40 PM) Yellow 12/13/2016 [facility] URINE AND STOOL UA Spec Grav 1.015 <=1.030 12/13/2016 [facility] URINE AND STOOL UA Turbidity Clear (12/13/16 5:40 PM) Clear 12/13/2016 [facility] CARDIAC ENZYMES CK-MB INDEX 2.2 0.0 - 2.5 12/13/2016 [facility] CARDIAC ENZYMES CK MB 3.0 0.5 - 3.6 12/13/2016 [facility] CARDIAC ENZYMES Total CK 138 12 - 191 12/13/2016 [facility] CARDIAC ENZYMES Troponin-I 0.03 0.00 - 0.40 12/13/2016 [facility] Lipase Lvl 129 73 - 393 12/13/2016 [facility] CHEM PANEL eGFR 15 12/13/2016 Result Comment: The eGFR is calculated using the [...] from the National Kidney Disease Education Program (NKDEP) which additionally recommends that when the eGFR is used in patients with extremes of body mass index for purposes of drug dosing, the eGFR should be multiplied by the estimated BMI. [facility] ASPARTATE TRANSAMINASE 12 0 - 37 12/13/2016 [facility] Total Protein 6.8 6.4 - 8.4 12/13/2016 [facility] CHEM PANEL AGAP 16.1 10.0 - 20.0 12/13/2016 [place] CHEM PANEL B/C Ratio 8 6 - 25 12/13/2016 [place] CHEM PANEL Calcium Lvl 8.5 8.5 - 10.5 12/13/2016 [facility] Bili Total 0.3 0.2 - 1.3 12/13/2016 [place] CHEM PANEL CO2 19 24 - 32 12/13/2016 [place] CHEM PANEL Globulin 4.6 2.7 - 4.2 12/13/2016 [facility] A/G Ratio 0.5 0.7 - 1.6 12/13/2016 [place] CHEM PANEL Chloride Lvl 111 95 - 109 12/13/2016 [facility] Creatinine Lvl 4.01 0.50 - 1.40 12/13/2016 [facility] CHEM PANEL Albumin Lvl 2.2 3.5 - 5.0 12/13/2016 [facility] CHEM PANEL ALANINE AMINOTRANSFERASE 11 0 - 65 12/13/2016 [facility] CHEM PANEL Alk Phos 80 39 - 136 12/13/2016 [facility] CHEM PANEL Glucose Lvl 155 70 - 99 12/13/2016 [facility] CHEM PANEL BUN 32 7 - 22 12/13/2016 [facility] CHEM PANEL Potassium Lvl 4.1 3.5 - 5.1 12/13/2016 [facility] CHEM PANEL Sodium Lvl 142 135 - 145 12/13/2016 [facility] HEMATOLOGY Basophils # 0.1 0.0 - 0.2 12/13/2016 [facility] HEMATOLOGY Monocytes # 0.3 0.0 - 0.8 12/13/2016 [facility] HEMATOLOGY Lymphocytes # 2.1 1.0 - 5.5 12/13/2016 [facility] HEMATOLOGY Eosinophils # 0.1 0.0 - 0.5 12/13/2016 [facility] HEMATOLOGY Segs-Bands # 4.5 1.5 - 8.1 12/13/2016 [facility] HEMATOLOGY Segs 62.9 45.0 - 75.0 12/13/2016 [facility] Lymphocytes 29.7 20.0 - 40.0 12/13/2016 [facility] HEMATOLOGY Eosinophils 1.7 0.0 - 4.0 12/13/2016 [facility] Monocytes 4.5 2.0 - 12.0 12/13/2016 [facility] HEMATOLOGY Basophils 1.2 0.0 - 1.0 12/13/2016 [facility] HEMATOLOGY MCHC 34.0 32.0 - 36.0 12/13/2016 [facility] HEMATOLOGY MPV 8.2 7.4 - 10.4 12/13/2016 [facility] HEMATOLOGY Platelet 318 133 - 450 12/13/2016 [facility] HEMATOLOGY RDW 15.8 11.5 - 14.5 12/13/2016 [facility] HEMATOLOGY MCV 85.6 80.0 - 98.0 12/13/2016 [facility] HEMATOLOGY WBC X 10x3 7.1 3.7 - 10.4 12/13/2016 [facility] HEMATOLOGY RBC X 10x6 3.98 4.20 - 5.40 12/13/2016 [facility] HEMATOLOGY Hgb 11.6 12.0 - 16.0 12/13/2016 [facility] HEMATOLOGY Hct 34.1 36.0 - 48.0 12/13/2016 [facility] HEMATOLOGY MCH 29.1 27.0 - 31.0 12/13/2016 [facility] CHEM PANEL Calcium Lvl 8.2 8.5 - 10.5 12/10/2016 [facility] CHEM PANEL AGAP 14.1 10.0 - 20.0 12/10/2016 [facility] CHEM PANEL CO2 19 24 - 32 12/10/2016 [facility] CHEM PANEL Glucose Lvl 118 70 - 99 12/10/2016 [facility] CHEM PANEL BUN 34 7 - 22 12/10/2016 [facility] CHEM PANEL Chloride Lvl 112 95 - 109 12/10/2016 [facility] CHEM PANEL Sodium Lvl 141 135 - 145 12/10/2016 [facility] CHEM PANEL Potassium Lvl 4.1 3.5 - 5.1 12/10/2016 [facility] CHEM PANEL Creatinine Lvl 4.14 0.50 - 1.40 12/10/2016 [facility] CHEM PANEL eGFR 12 12/10/2016 Result Comment: The eGFR is calculated using the [...] from the National Kidney Disease Education Program (NKDEP) which additionally recommends that when the eGFR is used in patients with extremes of body mass index for purposes of drug dosing, the eGFR should be multiplied by the estimated BMI. [facility] CHEM PANEL Phosphorus 5.3 2.5 - 4.5 12/09/2016 [facility] CHEM PANEL Calcium Lvl 7.9 8.5 - 10.5 12/09/2016 [facility] CHEM PANEL CO2 21 24 - 32 12/09/2016 [facility] CHEM PANEL eGFR 12 12/09/2016 Result Comment: The eGFR is calculated using the [...] from the National Kidney Disease Education Program (NKDEP) which additionally recommends that when the eGFR is used in patients with extremes of body mass index for purposes of drug dosing, the eGFR should be multiplied by the estimated BMI. [facility] CHEM PANEL Glucose Lvl 80 70 - 99 12/09/2016 [facility] CHEM PANEL Chloride Lvl 113 95 - 109 12/09/2016 [facility] CHEM PANEL Potassium Lvl 4.6 3.5 - 5.1 12/09/2016 [facility] CHEM PANEL Sodium Lvl 142 135 - 145 12/09/2016 [facility] CHEM PANEL Creatinine Lvl 4.25 0.50 - 1.40 12/09/2016 [facility] CHEM PANEL BUN 37 7 - 22 12/09/2016 [facility] CHEM PANEL AGAP 12.6 10.0 - 20.0 12/09/2016 [facility] HEMATOLOGY PTT 31.9 22.9 - 35.8 12/09/2016 [facility] HEMATOLOGY INR 1.04 0.85 - 1.17 12/09/2016 [facility] HEMATOLOGY PT 13.8 12.0 - 14.7 12/09/2016 [facility] TOXICOLOGY Vanco Tr TND 20:30 12/09/2016 [facility] TOXICOLOGY Vanco Tr 18.6 12/09/2016 [facility] CHEM PANEL Phosphorus 6.6 2.5 - 4.5 12/08/2016 [facility] ELECTROLYTES AGAP 15.6 10.0 - 20.0 12/08/2016 [facility] ELECTROLYTES eGFR 11 12/08/2016 Result Comment: The eGFR is calculated using the [...] from the National Kidney Disease Education Program (NKDEP) which additionally recommends that when the eGFR is used in patients with extremes of body mass index for purposes of drug dosing, the eGFR should be multiplied by the estimated BMI. [facility] ELECTROLYTES Chloride Lvl 115 95 - 109 12/08/2016 [facility] ELECTROLYTES CO2 20 24 - 32 12/08/2016 [facility] ELECTROLYTES Potassium Lvl 4.6 3.5 - 5.1 12/08/2016 [facility] ELECTROLYTES Sodium Lvl 146 135 - 145 12/08/2016 [facility] ELECTROLYTES Creatinine Lvl 4.5 6 0.50 - 1.40 12/08/2016 [facility] ELECTROLYTES BUN 42 7 - 22 12/08/2016 [facility] ELECTROLYTES Glucose Lvl 63 70 - 99 12/08/2016 [facility] ELECTROLYTES Calcium Lvl 8.3 8.5 - 10.5 12/08/2016 [facility] HEMATOLOGY Segs 48.9 45.0 - 75.0 12/08/2016 [facility] HEMATOLOGY Eosinophils # 0.1 0.0 - 0.5 12/08/2016 [facility] HEMATOLOGY Monocytes # 0.4 0.0 - 0.8 12/08/2016 [facility] HEMATOLOGY Lymphocytes # 1.9 1.0 - 5.5 12/08/2016 [facility] HEMATOLOGY Segs-Bands # 2.3 1.5 - 8.1 12/08/2016 [facility] HEMATOLOGY Basophils 1.0 0.0 - 1.0 12/08/2016 [facility] HEMATOLOGY Monocytes 8.8 2.0 - 12.0 12/08/2016 [facility] HEMATOLOGY Eosinophils 2.0 0.0 - 4.0 12/08/2016 [facility] HEMATOLOGY Lymphocytes 39.3 20.0 - 40.0 12/08/2016 [facility] HEMATOLOGY MCH 29.4 27.0 - 31.0 12/08/2016 [facility] HEMATOLOGY MCV 88.4 80.0 - 98.0 12/08/2016 [facility] HEMATOLOGY Hct 28.3 36.0 - 48.0 12/08/2016 [facility] HEMATOLOGY Hgb 9.4 12.0 - 16.0 12/08/2016 [facility] HEMATOLOGY RBC 3.20 4.20 - 5.40 12/08/2016 [facility] HEMATOLOGY WBC 4.8 3.7 - 10.4 12/08/2016 [facility] HEMATOLOGY MPV 8.7 7.4 - 10.4 12/08/2016 [facility] HEMATOLOGY Platelet 256 133 - 450 12/08/2016 [facility] HEMATOLOGY RDW 16.2 11.5 - 14.5 12/08/2016 [facility] HEMATOLOGY MCHC 33.3 32.0 - 36.0 12/08/2016 [facility] URINE AND STOOL UA Sq Epi None Seen 12/07/2016 [facility] URINE AND STOOL UA Urobilinogen <=1.0 mg/dL 0.1 - 1.0 12/07/2016 [facility] URINE AND STOOL UA Mucus Few /LPF None Seen /LPF 12/07/2016 [facility] URINE AND STOOL UA Nitrite Negative (12/07/16 6:42 PM) Negative 12/07/2016 [facility] URINE AND STOOL UA Bacteria Few /HPF None Seen /HPF 12/07/2016 [facility] URINE AND STOOL UA WBC 6 0 - 5 12/07/2016 [facility] URINE AND STOOL UA Leuk Est Small *ABN* (12/07/16 6:42 PM) Negative 12/07/2016 [facility] URINE AND STOOL UA Glucose Negative mg/dL Negative mg/dL 12/07/2016 [facility] URINE AND STOOL UA Blood Negative (12/07/16 6:42 PM) Negative 12/07/2016 [facility] URINE AND STOOL UA pH 6.5 5.0 - 8.0 12/07/2016 [facility] URINE AND STOOL UA Protein >=300 mg/dL Negative mg/dL 12/07/2016 [facility] URINE AND STOOL UA Ketones Negative mg/dL Negative mg/dL 12/07/2016 [facility] URINE AND STOOL UA Bili Negative *NA* (12/07/16 6:42 PM) Negative 12/07/2016 [facility] URINE AND STOOL UA Turbidity Clear (12/07/16 6:42 PM) Clear 12/07/2016 [facility] URINE AND STOOL UA Color Light Yellow *NA* (12/07/16 6:42 PM) Yellow 12/07/2016 [facility] URINE AND STOOL UA Spec Grav 1.007 <=1.030 12/07/2016 [facility] HEMATOLOGY Monocytes # 0.5 0.0 - 0.8 12/07/2016 [facility] HEMATOLOGY Basophils # 0.1 0.0 - 0.2 12/07/2016 [facility] HEMATOLOGY Eosinophils # 0.2 0.0 - 0.5 12/07/2016 [facility] HEMATOLOGY Segs 29.8 45.0 - 75.0 12/07/2016 [facility] HEMATOLOGY Lymphocytes 58.2 20.0 - 40.0 12/07/2016 [facility] HEMATOLOGY Monocytes 8.0 2.0 - 12.0 12/07/2016 [facility] HEMATOLOGY Basophils 1.2 0.0 - 1.0 12/07/2016 [facility] HEMATOLOGY Eosinophils 2.8 0.0 - 4.0 12/07/2016 [facility] HEMATOLOGY Lymphocytes # 3.6 1.0 - 5.5 12/07/2016 [facility] HEMATOLOGY Segs-Bands # 1.8 1.5 - 8.1 12/07/2016 [facility] HEMATOLOGY MPV 8.0 7.4 - 10.4 12/07/2016 [facility] HEMATOLOGY MCHC 32.3 32.0 - 36.0 12/07/2016 [facility] HEMATOLOGY RDW 16.8 11.5 - 14.5 12/07/2016 [facility] HEMATOLOGY MCH 29.3 27.0 - 31.0 12/07/2016 [facility] HEMATOLOGY Platelet 259 133 - 450 12/07/2016 [facility] HEMATOLOGY MCV 90.7 80.0 - 98.0 12/07/2016 [facility] HEMATOLOGY Hct 28.5 36.0 - 48.0 12/07/2016 [facility] HEMATOLOGY RBC 3.15 4.20 - 5.40 12/07/2016 [facility] HEMATOLOGY Hgb 9.2 12.0 - 16.0 12/07/2016 [facility] HEMATOLOGY WBC 6.1 3.7 - 10.4 12/07/2016 [facility] IMMUNOLOGY T pallidum Ab React anitra *ABN* (12/07/16 3:01 AM) Non Reactive 12/07/2016 [facility] IMMUNOLOGY RPR Non R eactive (12/07/16 3:01 AM) Non Reactive 12/07/2016 [facility] IMMUNOLOGY Treponemal Scr React anitra *ABN* (12/07/16 3:01 AM) Non Reactive 12/07/2016 [facility] CARDIAC ENZYMES Troponin-I 0.04 0.00 - 0.40 12/06/2016 [facility] URINE CHEM U Chloride 65 12/06/2016 [facility] URINE CHEM U Creatinine 71.40 12/06/2016 [facility] URINE CHEM U Sodium 73 12/06/2016 [facility] CHEM PANEL Amylase Lvl 37 25 - 115 12/06/2016 [facility] CHEM PANEL Phosphorus 6.7 2.5 - 4.5 12/06/2016 [facility] CHEM PANEL B/C Ratio 9 6 - 25 12/06/2016 [facility] CHEM PANEL Total Protein 5.6 6.4 - 8.4 12/06/2016 [facility] CHEM PANEL Albumin Lvl 1.7 3.5 - 5.0 12/06/2016 [facility] CHEM PANEL Globulin 3.9 2.7 - 4.2 12/06/2016 [facility] CHEM PANEL A/G Ratio 0.4 0.7 - 1.6 12/06/2016 [facility] CHEM PANEL ALT 8 0 - 65 12/06/2016 [facility] CHEM PANEL AST 9 0 - 37 12/06/2016 [facility] CHEM PANEL Alk Phos 79 39 - 136 12/06/2016 [facility] CHEM PANEL Bili Total 0.3 0.2 - 1.3 12/06/2016 [facility] CHEM PANEL Magnesium Lvl 1.7 1.8 - 2.4 12/06/2016 [facility] CHEM PANEL Lipase Lvl 184 73 - 393 12/06/2016 [facility] HEMATOLOGY Monocytes # 0.7 0.0 - 0.8 12/06/2016 [facility] HEMATOLOGY Basophils # 0.1 0.0 - 0.2 12/06/2016 [facility] HEMATOLOGY Lymphocytes # 2.6 1.0 - 5.5 12/06/2016 [facility] HEMATOLOGY Lymphocytes 31.5 20.0 - 40.0 12/06/2016 [facility] HEMATOLOGY Segs 59.1 45.0 - 75.0 12/06/2016 [facility] HEMATOLOGY Segs-Bands # 5.0 1.5 - 8.1 12/06/2016 [facility] HEMATOLOGY Monocytes 8.5 2.0 - 12.0 12/06/2016 [facility] HEMATOLOGY Basophils 0.8 0.0 - 1.0 12/06/2016 [facility] HEMATOLOGY Eosinophils 0.1 0.0 - 4.0 12/06/2016 [facility] HEMATOLOGY MPV 8.6 7.4 - 10.4 12/06/2016 [facility] HEMATOLOGY RDW 16.1 11.5 - 14.5 12/06/2016 [facility] HEMATOLOGY MCHC 33.1 32.0 - 36.0 12/06/2016 [facility] HEMATOLOGY MCH 29.3 27.0 - 31.0 12/06/2016 [facility] HEMATOLOGY Platelet 301 133 - 450 12/06/2016 [facility] HEMATOLOGY RBC 3.05 4.20 - 5.40 12/06/2016 [facility] HEMATOLOGY WBC 8.4 3.7 - 10.4 12/06/2016 [facility] HEMATOLOGY Hgb 9.0 12.0 - 16.0 12/06/2016 [facility] HEMATOLOGY Hct 27.0 36.0 - 48.0 12/06/2016 [facility] HEMATOLOGY MCV 88.6 80.0 - 98.0 12/06/2016 [facility] LIPIDS CHD Risk 5.85 3.90 - 5.80 12/06/2016 [facility] LIPIDS VLDL 28 12/06/2016 [facility] LIPIDS LDL (Calculated) 171 <=99 mg/dL 12/06/2016 [facility] LIPIDS HDL 41 >=61 mg/dL 12/06/2016 [facility] LIPIDS Chol 240 <=199 mg/dL 12/06/2016 [facility] LIPIDS Trig 139 <=149 mg/dL 12/06/2016 [facility] SPECIAL CHEMISTRY Hgb A1C 4.7 <=5.6 % 12/06/2016 [facility] URINE AND STOOL UA Leuk Est Negative (12/05/16 10:20 PM) Negative 12/06/2016 [facility] URINE AND STOOL UA Turbidity Clear (12/05/16 10:20 PM) Clear 12/06/2016 [facility] URINE AND STOOL UA Spec Grav 1.020 <=1.030 12/06/2016 [facility] URINE AND STOOL UA Color Yellow *NA* (12/05/16 10:20 PM) Yellow 12/06[facility]2016 [facility] [facility] URINE AND STOOL UA Bili Negative *NA* (12/05/16 10:20 PM) Negative 12/06/2016 [facility] URINE AND STOOL UA Blood Small *ABN* (12/05/16 10:20 PM) Negative 12/06/2016 [facility] URINE AND STOOL UA Urobilinogen 0.2 0.1 - 1.0 12/06/2016 [facility] URINE AND STOOL UA Nitrite Negative (12/05/16 10:20 PM) Negative 12/06/2016 [facility] URINE AND STOOL UA Glucose 250 mg/dL Negative mg/dL 12/06/2016 [facility] URINE AND STOOL UA Ketones Negative *NA* (12/05/16 10:20 PM) Negative 12/06/2016 [facility] URINE AND STOOL UA Protein >=300 mg/dL Negative mg/dL 12/06/2016 [facility] URINE AND STOOL UA pH 7.0 5.0 - 8.0 12/06/2016 [facility] URINE AND STOOL UA Sq Epi Rare /LPF Few /LPF 12/06/2016 [facility] URINE AND STOOL UA Bacteria Occasional /HPF None Seen /HPF 12/06/2016 [facility] URINE AND STOOL UA RBC 3-5 /HPF 0 - 2 12/06/2016 [facility] URINE AND STOOL UA WBC 0-2 /HPF None Seen /HPF 12/06/2016 [facility] URINE CHEM U Preg Negat anitra (12/05/16 10:20 PM) Negative 12/06/2016 [facility] BLOOD BANK RESULTS Antibody Scrn Negative (12/05/16 4:10 PM) 12/05/2016 [facility] BLOOD BANK RESULTS ABO/Rh A POS 12/05/2016 [facility] CHEM PANEL Lactic Acid Lvl 1.5 0.5 - 2.2 12/05/2016 [facility] CHEM PANEL Alk Phos 111 39 - 136 12/05/2016 [facility] CHEM PANEL AST 14 0 - 37 12/05/2016 [facility] CHEM PANEL Total Protein 7.2 6.4 - 8.4 12/05/2016 [facility] CHEM PANEL Albumin Lvl 2.3 3.5 - 5.0 12/05/2016 [facility] CHEM PANEL ALT 9 0 - 65 12/05/2016 [facility] CHEM PANEL Bili Direct <0.05 mg/dL 0.0 - 0.3 12/05/2016 [facility] CHEM PANEL Bili Indirect See N ote 4 (12/05/16 3:48 PM) 0.0 - 1.0 12/05/2016 Result Comment: Efra i Indirect cannot be calculated due to low analyte value [facility] CHEM PANEL Bili Total 0.5 0.2 - 1.3 12/05/2016 [facility] CHEM PANEL Globulin 4.9 2.7 - 4.2 12/05/2016 [facility] CHEM PANEL A/G Ratio 0.5 0.7 - 1.6 12/05/2016 [facility] CHEM PANEL Lipase Lvl 216 73 - 393 12/05/2016 [facility] HEMATOLOGY Eosinophils # 0.1 0.0 - 0.5 12/05/2016 [facility] HEMATOLOGY Basophils # 0.1 0.0 - 0.2 12/05/2016 [facility] HEMATOLOGY PTT 31.9 22.9 - 35.8 12/05/2016 [facility] HEMATOLOGY INR 0.95 0.85 - 1.17 12/05/2016 [facility] HEMATOLOGY PT 12.9 12.0 - 14.7 12/05/2016 [facility] ELECTROLYTES AGAP 10.7 10.0 - 20.0 10/26/2016 [facility] ELECTROLYTES eGFR 19 10/26/2016 Result Comment: The eGFR is calculated using the [...] from the National Kidney Disease Education Program (NKDEP) which additionally recommends that when the eGFR is used in patients with extremes of body mass index for purposes of drug dosing, the eGFR should be multiplied by the estimated BMI. [facility] ELECTROLYTES Phosphorus 4.3 2.5 - 4.5 10/26/2016 [facility] ELECTROLYTES CO2 23 24 - 32 10/26/2016 [facility] ELECTROLYTES Chloride Lvl 113 95 - 109 10/26/2016 [facility] ELECTROLYTES Creatinine Lvl 2.9 0 0.50 - 1.40 10/26/2016 [facility] ELECTROLYTES Albumin Lvl 1.2 3.5 - 5.0 10/26/2016 [facility] ELECTROLYTES Calcium Lvl 8.2 8.5 - 10.5 10/26/2016 [facility] ELECTROLYTES BUN 19 7 - 22 10/26/2016 [facility] ELECTROLYTES Potassium Lvl 4.7 3.5 - 5.1 10/26/2016 [facility] ELECTROLYTES Sodium Lvl 142 135 - 145 10/26/2016 [facility] ELECTROLYTES Glucose Lvl 93 70 - 99 10/26/2016 [facility] HEMATOLOGY Eosinophils 4.4 0.0 - 4.0 10/26/2016 [facility] HEMATOLOGY Segs 48.4 45.0 - 75.0 10/26/2016 [facility] [place][note 2] Lymphocytes 39.4 20.0 - 40.0 10/26/2016 [facility] HEMATOLOGY Monocytes 6.4 2.0 - 12.0 10/26/2016 [facility] HEMATOLOGY Segs-Bands # 2.1 1.5 - 8.1 10/26/2016 [facility] HEMATOLOGY Lymphocytes # 1.7 1.0 - 5.5 10/26/2016 [facility] HEMATOLOGY Monocytes # 0.3 0.0 - 0.8 10/26/2016 [facility] HEMATOLOGY Eosinophils # 0.2 0.0 - 0.5 10/26/2016 [facility] HEMATOLOGY Basophils # 0.1 0.0 - 0.2 10/26/2016 [facility] HEMATOLOGY Basophils 1.4 0.0 - 1.0 10/26/2016 [facility] [place][note 2] Platelet 331 133 - 450 10/26/2016 [facility] [place][note 2] MPV 8.2 7.4 - 10.4 10/26/2016 [facility] HEMATOLOGY RDW 13.9 11.5 - 14.5 10/26/2016 [facility] [place][note 2] MCV 87.3 80.0 - 98.0 10/26/2016 [facility] [place][note 2] MCH 28.0 27.0 - 31.0 10/26/2016 [facility] [place][note 2] MCHC 32.1 32.0 - 36.0 10/26/2016 [facility] [place][note 2] Hct 27.5 36.0 - 48.0 10/26/2016 [facility] [place][note 2] WBC 4.4 3.7 - 10.4 10/26/2016 [facility] [place][note 2] RBC 3.15 4.20 - 5.40 10/26/2016 [facility] [place][note 2] Hgb 8.8 12.0 - 16.0 10/26/2016 [facility] CHEM PANEL Magnesium Lvl 1.8 1.8 - 2.4 10/25/2016 [facility] CHEM PANEL eGFR 18 10/25/2016 Result Comment: The eGFR is calculated using the [...] from the National Kidney Disease Education Program (NKDEP) which additionally recommends that when the eGFR is used in patients with extremes of body mass index for purposes of drug dosing, the eGFR should be multiplied by the estimated BMI. [facility] CHEM PANEL Phosphorus 4.4 2.5 - 4.5 10/25/2016 [facility] CHEM PANEL Calcium Lvl 8.0 8.5 - 10.5 10/25/2016 [facility] CHEM PANEL Albumin Lvl 1.1 3.5 - 5.0 10/25/2016 [facility] CHEM PANEL CO2 22 24 - 32 10/25/2016 [facility] CHEM PANEL Potassium Lvl 4.5 3.5 - 5.1 10/25/2016 [facility] CHEM PANEL Chloride Lvl 114 95 - 109 10/25/2016 [facility] CHEM PANEL Sodium Lvl 144 135 - 145 10/25/2016 [facility] CHEM PANEL Creatinine Lvl 3.00 0.50 - 1.40 10/25/2016 [facility] CHEM PANEL BUN 19 7 - 22 10/25/2016 [facility] CHEM PANEL Glucose Lvl 74 70 - 99 10/25/2016 [facility] CHEM PANEL AGAP 12.5 10.0 - 20.0 10/25/2016 [facility] HEMATOLOGY Platelet 286 133 - 450 10/25/2016 [facility] HEMATOLOGY RDW 14.2 11.5 - 14.5 10/25/2016 [facility] HEMATOLOGY MPV 8.6 7.4 - 10.4 10/25/2016 [facility] [place][note 2] Hct 25.2 36.0 - 48.0 10/25/2016 [facility] [place][note 2] MCHC 31.7 32.0 - 36.0 10/25/2016 [facility] [place][note 2] MCH 27.6 27.0 - 31.0 10/25/2016 [facility] [place][note 2] MCV 87.2 80.0 - 98.0 10/25/2016 [facility] [place][note 2] Hgb 8.0 12.0 - 16.0 10/25/2016 [facility] HEMATOLOGY RBC 2.89 4.20 - 5.40 10/25/2016 [facility] [place][note 2] WBC 5.0 3.7 - 10.4 10/25/2016 [facility] [place][note 2] Basophils # 0.1 0.0 - 0.2 10/25/2016 [facility] [place][note 2] Lymphocytes # 2.0 1.0 - 5.5 10/25/2016 [facility] HEMATOLOGY Segs-Bands # 2.3 1.5 - 8.1 10/25/2016 [facility] HEMATOLOGY Eosinophils # 0.2 0.0 - 0.5 10/25/2016 [facility] [place][note 2] Monocytes # 0.4 0.0 - 0.8 10/25/2016 [facility] HEMATOLOGY Eosinophils 3.7 0.0 - 4.0 10/25/2016 [facility] HEMATOLOGY Basophils 1.1 0.0 - 1.0 10/25/2016 [facility] [place][note 2] Monocytes 8.3 2.0 - 12.0 10/25/2016 [facility] HEMATOLOGY Segs 45.9 45.0 - 75.0 10/25/2016 [facility] [place][note 2] Lymphocytes 41.0 20.0 - 40.0 10/25/2016 [facility] CHEM PANEL eGFR 18 10/24/2016 Result Comment: The eGFR is calculated using the [...] from the National Kidney Disease Education Program (NKDEP) which additionally recommends that when the eGFR is used in patients with extremes of body mass index for purposes of drug dosing, the eGFR should be multiplied by the estimated BMI. [facility] CHEM PANEL Bili Total 0.2 0.2 - 1.3 10/24/2016 [facility] CHEM PANEL Globulin 3.7 2.7 - 4.2 10/24/2016 [facility] CHEM PANEL B/C Ratio 7 6 - 25 10/24/2016 [facility] CHEM PANEL Calcium Lvl 7.5 8.5 - 10.5 10/24/2016 [facility] CHEM PANEL Albumin Lvl 1.1 3.5 - 5.0 10/24/2016 [facility] CHEM PANEL Total Protein 4.8 6.4 - 8.4 10/24/2016 [facility] CHEM PANEL AGAP 12.4 10.0 - 20.0 10/24/2016 [facility] CHEM PANEL CO2 21 24 - 32 10/24/2016 [facility] CHEM PANEL Chloride Lvl 116 95 - 109 10/24/2016 [facility] CHEM PANEL Potassium Lvl 4.4 3.5 - 5.1 10/24/2016 [facility] CHEM PANEL Sodium Lvl 145 135 - 145 10/24/2016 [facility] CHEM PANEL Creatinine Lvl 3.00 0.50 - 1.40 10/24/2016 [facility] CHEM PANEL BUN 21 7 - 22 10/24/2016 [facility] CHEM PANEL Glucose Lvl 75 70 - 99 10/24/2016 [facility] CHEM PANEL AST 10 0 - 37 10/24/2016 [facility] CHEM PANEL Alk Phos 99 39 - 136 10/24/2016 [facility] CHEM PANEL ALT 9 0 - 65 10/24/2016 [facility] CHEM PANEL A/G Ratio 0.3 0.7 - 1.6 10/24/2016 [facility] CHEM PANEL Phosphorus 4.3 2.5 - 4.5 10/24/2016 [facility] CHEM PANEL Magnesium Lvl 1.6 1.8 - 2.4 10/24/2016 [facility] [place][note 2] Segs-Bands # 2.5 1.5 - 8.1 10/24/2016 [facility] [place][note 2] Monocytes # 0.4 0.0 - 0.8 10/24/2016 [facility] HEMATOLOGY Lymphocytes # 2.1 1.0 - 5.5 10/24/2016 [facility] HEMATOLOGY Eosinophils # 0.2 0.0 - 0.5 10/24/2016 [facility] HEMATOLOGY Eosinophils 4.3 0.0 - 4.0 10/24/2016 [facility] [place][note 2] Monocytes 7.2 2.0 - 12.0 10/24/2016 [facility] HEMATOLOGY Basophils 0.8 0.0 - 1.0 10/24/2016 [facility] [place][note 2] Lymphocytes 40.0 20.0 - 40.0 10/24/2016 [facility] [place][note 2] Segs 47.7 45.0 - 75.0 10/24/2016 [facility] [place][note 2] MCH 28.1 27.0 - 31.0 10/24/2016 [facility] [place][note 2] MCHC 32.1 32.0 - 36.0 10/24/2016 [facility] [place][note 2] Platelet 265 133 - 450 10/24/2016 [facility] [place][note 2] RDW 14.2 11.5 - 14.5 10/24/2016 [facility] [place][note 2] Hgb 7.9 12.0 - 16.0 10/24/2016 [facility] [place][note 2] RBC 2.81 4.20 - 5.40 10/24/2016 [facility] [place][note 2] Hct 24.6 36.0 - 48.0 10/24/2016 [facility] [place][note 2] MCV 87.5 80.0 - 98.0 10/24/2016 [facility] HEMATOLOGY MPV 8.7 7.4 - 10.4 10/24/2016 [facility] [place][note 2] WBC 5.3 3.7 - 10.4 10/24/2016 [facility] URINE AND STOOL UA pH 6.0 5.0 - 8.0 10/23/2016 [facility] URINE AND STOOL UA Bili Negative *NA* (10/23/16 2:29 AM) Negative 10/23/2016 [facility] URINE AND STOOL UA [place] Yeast Moderate /HPF None Seen /HPF 10/23/2016 [facility] URINE AND STOOL UA Urobilinogen <=1.0 mg/dL 0.1 - 1.0 10/23/2016 [facility] URINE AND STOOL UA Glucose 50 10/23/2016 [facility] URINE AND STOOL UA RBC 12 0 - 2 10/23/2016 [facility] URINE AND STOOL UA Bacteria Occasional /HPF None Seen /HPF 10/23/2016 [facility] URINE AND STOOL UA Mucus Few /LPF None Seen /LPF 10/23/2016 [facility] URINE AND STOOL UA Hyal Cast 10 0 - 2 10/23/2016 [facility] URINE AND STOOL UA Color Yellow 10/23/2016 [facility] URINE AND STOOL UA Turbidity Marked *ABN* (10/23/16 2:29 AM) Clear 10/23/2016 [facility] URINE AND STOOL UA Blood Negative (10/23/16 2:29 AM) Negative 10/23/2016 [facility] URINE AND STOOL UA Nitrite Negative (10/23/16 2:29 AM) Negative 10/23/2016 [facility] URINE AND STOOL UA Leuk Est Moderate *ABN* (10/23/16 2:29 AM) Negative 10/23/2016 [facility] URINE AND STOOL UA Sq Epi Many /LPF Few /LPF 10/23/2016 [facility] URINE AND STOOL UA Ketones Negative mg/dL Negative mg/dL 10/23/2016 [facility] URINE AND STOOL UA Spec Grav 1.013 <=1.030 10/23/2016 [facility] URINE AND STOOL UA Protein >=300 mg/dL Negative mg/dL 10/23/2016 [facility] URINE AND STOOL UA WBC 142 0 - 5 10/23/2016 [facility] URINE CHEM U Potassium 18.1 10/23/2016 [facility] URINE CHEM U Sodium 64 10/23/2016 [facility] URINE CHEM U Chloride 57 10/23/2016 [facility] URINE CHEM U Urea 225 10/23/2016 [facility] URINE CHEM U Protein 857.6 10/23/2016 [facility] URINE CHEM U Osmolality 276 300 - 800 10/23/2016 [facility] URINE CHEM U Creatinine 129.00 10/23/2016 [facility] URINE CHEM U Eos None Seen (10/23/16 2:29 AM) None Seen 10/23/2016 [facility] URINE CHEM U Prot/Creat 6.6 10/23/2016 [facility] CHEM PANEL Lipase Lvl 60 73 - 393 10/23/2016 [facility] CHEM PANEL Bili Total 0.1 0.2 - 1.3 10/23/2016 [facility] CHEM PANEL AST 16 0 - 37 10/23/2016 [facility] CHEM PANEL ALT 11 0 - 65 10/23/2016 [facility] CHEM PANEL Alk Phos 110 39 - 136 10/23/2016 [facility] CHEM PANEL Total Protein 5.3 6.4 - 8.4 10/23/2016 [facility] CHEM PANEL B/C Ratio 6 6 - 25 10/23/2016 [facility] CHEM PANEL A/G Ratio 0.3 0.7 - 1.6 10/23/2016 [facility] CHEM PANEL Globulin 4.0 2.7 - 4.2 10/23/2016 [facility] HEMATOLOGY RBC Morph Rosina l (10/23/16 1:59 AM) 10/23/2016 [facility] HEMATOLOGY Plt Morph Rosina l (10/23/16 1:59 AM) 10/23/2016 [facility] HEMATOLOGY Basophils # 0.0 0.0 - 0.2 10/23/2016 [facility] ANEMIA STUDY % [place] 25 12 - 57 10/19/2016 [facility] ANEMIA STUDY UIBC 86 110 - 370 10/19/2016 [facility] ANEMIA STUDY TIBC 114 228 - 428 10/19/2016 [facility] ANEMIA STUDY [place] 28 30 - 160 10/19/2016 [facility] ANEMIA STUDY RBC Folate 577 280 - 791 10/19/2016 [facility] ANEMIA STUDY Folate Lvl 7.3 >=3.0 ng/mL 10/19/2016 [facility] ANEMIA STUDY Vitamin B12 Lvl 890 254 - 1320 10/19/2016 [facility] ANEMIA STUDY Ferritin Lvl 160 5 - 204 10/19/2016 [facility] CARDIAC ENZYMES Total CK 78 12 - 191 10/19/2016 [facility] CHEM PANEL Bili Indirect 0.0 0.0 - 1.0 10/19/2016 [facility] CHEM PANEL Bili Total 0.1 0.2 - 1.3 10/19/2016 [facility] CHEM PANEL Bili Direct 0.1 0.0 - 0.3 10/19/2016 [facility] CHEM PANEL ALT 9 0 - 65 10/19/2016 [facility] CHEM PANEL Total Protein 5.3 6.4 - 8.4 10/19/2016 [facility] CHEM PANEL A/G Ratio 0.3 0.7 - 1.6 10/19/2016 [facility] CHEM PANEL Alk Phos 104 39 - 136 10/19/2016 [facility] CHEM PANEL AST 9 0 - 37 10/19/2016 [facility] CHEM PANEL Globulin 4.0 2.7 - 4.2 10/19/2016 [facility] CHEM PANEL Albumin Lvl 1.3 3.5 - 5.0 10/19/2016 [facility] CHEM PANEL eGFR 19 10/19/2016 Result Comment: The eGFR is calculated using the [...] from the National Kidney Disease Education Program (NKDEP) which additionally recommends that when the eGFR is used in patients with extremes of body mass index for purposes of drug dosing, the eGFR should be multiplied by the estimated BMI. [facility] CHEM PANEL Glucose Lvl 61 70 - 99 10/19/2016 [facility] CHEM PANEL Sodium Lvl 145 135 - 145 10/19/2016 [facility] CHEM PANEL Creatinine Lvl 2.86 0.50 - 1.40 10/19/2016 [facility] CHEM PANEL BUN 14 7 - 22 10/19/2016 [facility] CHEM PANEL Potassium Lvl 4.5 3.5 - 5.1 10/19/2016 [facility] CHEM PANEL Chloride Lvl 114 95 - 109 10/19/2016 [facility] CHEM PANEL CO2 23 24 - 32 10/19/2016 [facility] CHEM PANEL Calcium Lvl 8.0 8.5 - 10.5 10/19/2016 [facility] CHEM PANEL AGAP 12.5 10.0 - 20.0 10/19/2016 [facility] CHEM PANEL Phosphorus 4.7 2.5 - 4.5 10/19/2016 [facility] CHEM PANEL Magnesium Lvl 2.0 1.8 - 2.4 10/19/2016 [facility] CHEM PANEL LDH 286 98 - 192 10/19/2016 [facility] CHEM PANEL Bili Indirect 0.0 0.0 - 1.0 10/19/2016 [facility] CHEM PANEL Bili Direct 0.1 0.0 - 0.3 10/19/2016 [facility] CHEM PANEL Bili Total 0.1 0.2 - 1.3 10/19/2016 [facility] HEMATOLOGY Monocytes # 0.5 0.0 - 0.8 10/19/2016 [facility] HEMATOLOGY Lymphocytes # 2.0 1.0 - 5.5 10/19/2016 [facility] HEMATOLOGY Monocytes 8.3 2.0 - 12.0 10/19/2016 [facility] HEMATOLOGY Eosinophils 4.8 0.0 - 4.0 10/19/2016 [facility] HEMATOLOGY Segs-Bands # 2.8 1.5 - 8.1 10/19/2016 [facility] HEMATOLOGY Basophils 0.7 0.0 - 1.0 10/19/2016 [facility] HEMATOLOGY Segs 49.7 45.0 - 75.0 10/19/2016 [facility] HEMATOLOGY Lymphocytes 36.5 20.0 - 40.0 10/19/2016 [facility] HEMATOLOGY Eosinophils # 0.3 0.0 - 0.5 10/19/2016 [facility] HEMATOLOGY MCH 28.3 27.0 - 31.0 10/19/2016 [facility] HEMATOLOGY MCHC 31.8 32.0 - 36.0 10/19/2016 [facility] HEMATOLOGY RDW 14.6 11.5 - 14.5 10/19/2016 [facility] HEMATOLOGY Platelet 361 133 - 450 10/19/2016 [facility] HEMATOLOGY MPV 8.1 7.4 - 10.4 10/19/2016 [facility] HEMATOLOGY WBC 5.5 3.7 - 10.4 10/19/2016 [facility] HEMATOLOGY RBC 2.50 4.20 - 5.40 10/19/2016 [facility] HEMATOLOGY Hgb 7.1 12.0 - 16.0 10/19/2016 [facility] HEMATOLOGY Hct 22.2 36.0 - 48.0 10/19/2016 [facility] HEMATOLOGY MCV 88.8 80.0 - 98.0 10/19/2016 [facility] HEMATOLOGY PB Smear Path Perip heral Blood Smear Examination: - Normocytic normochromic anemia with anisocytosis and slight polychromasia. Occasional ecchinocytes are seen. Rare schistocytes are present, however overall are not increased. - Reactive PMNs are present. - Adequate platelets with rare large forms. CPT: 30232 10/19/2016 [facility] HEMATOLOGY Retic Auto 1.4 0.5 - 1.5 10/19/2016 [facility] IMMUNOLOGY Homocyst Tot 13.7 3.7 - 13.9 10/19/2016 [facility] PARATHYROID PROFILE Ca Norm WB 1.01 1.05 - 1.25 10/19/2016 [facility] PARATHYROID PROFILE Ca Ion WB 1.08 1.05 - 1.25 10/19/2016 [facility] IMMUNOLOGY Hep B Core IgM Negat anitra *NA* (10/18/16 7:20 PM) Negative 10/19/2016 [facility] IMMUNOLOGY Hep A IgM Negat anitra *NA* (10/18/16 7:20 PM) Negative 10/19/2016 [facility] IMMUNOLOGY Hep C Ab Negat anitra *NA* (10/18/16 7:20 PM) 10/19/2016 [facility] IMMUNOLOGY Hep Bs Ag Negat anitra *NA* (10/18/16 7:20 PM) Negative 10/19/2016 [facility] IMMUNOLOGY C4 Complement 68 16 - 47 10/19/2016 [facility] IMMUNOLOGY C3 Complement 93 88 - 201 10/19/2016 [facility] LIPIDS VLDL 31 10/19/2016 [facility] LIPIDS LDL (Calculated) 74 <=99 mg/dL 10/19/2016 [facility] LIPIDS Trig 153 <=149 mg/dL 10/19/2016 [facility] LIPIDS Chol 149 <=199 mg/dL 10/19/2016 [facility] LIPIDS HDL 44 >=61 mg/dL 10/19/2016 [facility] LIPIDS CHD Risk 3.39 3.90 - 5.80 10/19/2016 [facility] IMMUNOLOGY P-ANCA Negat anitra (10/18/16 7:18 PM) Negative 10/19/2016 [facility] IMMUNOLOGY C-ANCA Negat anitra (10/18/16 7:18 PM) Negative 10/19/2016 [facility] IMMUNOLOGY Lambda Free Light Chains 74.27 5.70 - 26.30 10/19/2016 [facility] IMMUNOLOGY [place] Free Light Chains 1 20.83 3.30 - 19.40 10/19/2016 [facility] IMMUNOLOGY [place]/Lambda Free Light C hains Ratio 1.63 0.26 - 1.65 10/19/2016 [facility] IMMUNOLOGY MAEGAN Negat anitra (10/18/16 7:18 PM) Negative 10/19/2016 [facility] CHEM PANEL Vitamin D, 25-OH, Total 4 .7 30.0 - 100.0 10/18/2016 [facility] ANEMIA STUDY TIBC 178 228 - 428 10/18/2016 [facility] ANEMIA STUDY Iron 49 30 - 160 10/18/2016 [facility] ANEMIA STUDY UIBC 129 110 - 370 10/18/2016 [facility] ANEMIA STUDY % [place] 28 12 - 57 10/18/2016 [facility] CHEM PANEL Phosphorus 4.9 2.5 - 4.5 10/18/2016 [facility] CHEM PANEL Bili Indirect 0.1 0.0 - 1.0 10/18/2016 [facility] CHEM PANEL Bili Direct 0.1 0.0 - 0.3 10/18/2016 [facility] CHEM PANEL Bili Total 0.2 0.2 - 1.3 10/18/2016 [facility] CHEM PANEL Magnesium Lvl 2.0 1.8 - 2.4 10/18/2016 [facility] ELECTROLYTES AGAP 15.9 10.0 - 20.0 10/18/2016 [facility] ELECTROLYTES eGFR 20 10/18/2016 Result Comment: The eGFR is calculated using the [...] from the National Kidney Disease Education Program (NKDEP) which additionally recommends that when the eGFR is used in patients with extremes of body mass index for purposes of drug dosing, the eGFR should be multiplied by the estimated BMI. [facility] ELECTROLYTES Glucose Lvl 67 70 - 99 10/18/2016 [facility] ELECTROLYTES CO2 19 24 - 32 10/18/2016 [facility] ELECTROLYTES Calcium Lvl 7.7 8.5 - 10.5 10/18/2016 [facility] ELECTROLYTES BUN 14 7 - 22 10/18/2016 [facility] ELECTROLYTES Sodium Lvl 141 135 - 145 10/18/2016 [facility] ELECTROLYTES Creatinine Lvl 2.8 1 0.50 - 1.40 10/18/2016 [facility] ELECTROLYTES Potassium Lvl 4.9 3.5 - 5.1 10/18/2016 [facility] ELECTROLYTES Chloride Lvl 111 95 - 109 10/18/2016 [facility] HEMATOLOGY Platelet 357 133 - 450 10/18/2016 [facility] HEMATOLOGY MPV 8.6 7.4 - 10.4 10/18/2016 [facility] HEMATOLOGY RDW 14.7 11.5 - 14.5 10/18/2016 [facility] HEMATOLOGY MCHC 32.1 32.0 - 36.0 10/18/2016 [facility] HEMATOLOGY Hct 24.7 36.0 - 48.0 10/18/2016 [facility] HEMATOLOGY Hgb 7.9 12.0 - 16.0 10/18/2016 [facility] HEMATOLOGY RBC 2.79 4.20 - 5.40 10/18/2016 [facility] HEMATOLOGY WBC 5.7 3.7 - 10.4 10/18/2016 [facility] HEMATOLOGY MCH 28.5 27.0 - 31.0 10/18/2016 [facility] HEMATOLOGY MCV 88.8 80.0 - 98.0 10/18/2016 [facility] HEMATOLOGY Lymphocytes # 2.1 1.0 - 5.5 10/18/2016 [facility] HEMATOLOGY Eosinophils # 0.3 0.0 - 0.5 10/18/2016 [facility] HEMATOLOGY Monocytes # 0.4 0.0 - 0.8 10/18/2016 [facility] HEMATOLOGY Segs-Bands # 2.9 1.5 - 8.1 10/18/2016 [facility] HEMATOLOGY Basophils 0.8 0.0 - 1.0 10/18/2016 [facility] HEMATOLOGY Eosinophils 4.6 0.0 - 4.0 10/18/2016 [facility] HEMATOLOGY Monocytes 7.2 2.0 - 12.0 10/18/2016 [facility] HEMATOLOGY Lymphocytes 36.6 20.0 - 40.0 10/18/2016 [facility] HEMATOLOGY Segs 50.8 45.0 - 75.0 10/18/2016 [facility] PARATHYROID PROFILE Ca Ion WB 1.18 1.05 - 1.25 10/18/2016 [facility] PARATHYROID PROFILE Ca Norm WB 1.08 1.05 - 1.25 10/18/2016 [facility] CHEM PANEL AST 21 0 - 37 10/18/2016 [facility] CHEM PANEL A/G Ratio 0.3 0.7 - 1.6 10/18/2016 [facility] CHEM PANEL Globulin 4.3 2.7 - 4.2 10/18/2016 [facility] CHEM PANEL ALT 14 0 - 65 10/18/2016 [facility] CHEM PANEL Albumin Lvl 1.5 3.5 - 5.0 10/18/2016 [facility] CHEM PANEL Alk Phos 111 39 - 136 10/18/2016 [facility] CHEM PANEL Total Protein 5.8 6.4 - 8.4 10/18/2016 [facility] URINE CHEM U Preg Negat anitra (10/17/16 1:28 PM) Negative 10/17/2016 [facility] HEMATOLOGY INR 1.05 0.85 - 1.17 10/17/2016 [facility] HEMATOLOGY PT 13.9 12.0 - 14.7 10/17/2016 [facility] CHEM PANEL Vitamin D, 25-OH, Total 5 .1 30.0 - 100.0 10/17/2016 [facility] CHEM PANEL Magnesium Lvl 2.1 1.8 - 2.4 10/17/2016 [facility] CHEM PANEL Phosphorus 5.0 2.5 - 4.5 10/17/2016 [facility] ELECTROLYTES AGAP 12.4 10.0 - 20.0 10/17/2016 [facility] ELECTROLYTES eGFR 20 10/17/2016 Result Comment: The eGFR is calculated using the [...] from the National Kidney Disease Education Program (NKDEP) which additionally recommends that when the eGFR is used in patients with extremes of body mass index for purposes of drug dosing, the eGFR should be multiplied by the estimated BMI. [facility] ELECTROLYTES Sodium Lvl 142 135 - 145 10/17/2016 [facility] ELECTROLYTES BUN 12 7 - 22 10/17/2016 [facility] ELECTROLYTES Creatinine Lvl 2.8 4 0.50 - 1.40 10/17/2016 [facility] ELECTROLYTES Potassium Lvl 4.4 3.5 - 5.1 10/17/2016 [facility] ELECTROLYTES Chloride Lvl 115 95 - 109 10/17/2016 [facility] ELECTROLYTES CO2 19 24 - 32 10/17/2016 [facility] ELECTROLYTES Calcium Lvl 7.5 8.5 - 10.5 10/17/2016 [facility] ELECTROLYTES Glucose Lvl 75 70 - 99 10/17/2016 [facility] HEMATOLOGY WBC 6.2 3.7 - 10.4 10/17/2016 [facility] HEMATOLOGY Hct 22.8 36.0 - 48.0 10/17/2016 [facility] HEMATOLOGY Hgb 7.2 12.0 - 16.0 10/17/2016 [facility] HEMATOLOGY MCV 89.3 80.0 - 98.0 10/17/2016 [facility] HEMATOLOGY RBC 2.56 4.20 - 5.40 10/17/2016 [facility] HEMATOLOGY MCH 28.0 27.0 - 31.0 10/17/2016 [facility] HEMATOLOGY RDW 14.2 11.5 - 14.5 10/17/2016 [facility] HEMATOLOGY MPV 8.8 7.4 - 10.4 10/17/2016 [facility] HEMATOLOGY Platelet 322 133 - 450 10/17/2016 [facility] HEMATOLOGY MCHC 31.3 32.0 - 36.0 10/17/2016 [facility] HEMATOLOGY Lymphocytes # 2.6 1.0 - 5.5 10/17/2016 [facility] HEMATOLOGY Monocytes # 0.4 0.0 - 0.8 10/17/2016 [facility] HEMATOLOGY Basophils # 0.1 0.0 - 0.2 10/17/2016 [facility] HEMATOLOGY Eosinophils # 0.4 0.0 - 0.5 10/17/2016 [facility] HEMATOLOGY Segs 43.2 45.0 - 75.0 10/17/2016 [facility] HEMATOLOGY Eosinophils 6.3 0.0 - 4.0 10/17/2016 [facility] HEMATOLOGY Basophils 1.0 0.0 - 1.0 10/17/2016 [facility] HEMATOLOGY Segs-Bands # 2.7 1.5 - 8.1 10/17/2016 [facility] HEMATOLOGY Lymphocytes 43.0 20.0 - 40.0 10/17/2016 [facility] HEMATOLOGY Monocytes 6.5 2.0 - 12.0 10/17/2016 [facility] IMMUNOLOGY Prealbumin 14.3 18.0 - 45.0 10/17/2016 [facility] PARATHYROID PROFILE Ca Ion WB 1.13 1.05 - 1.25 10/17/2016 [facility] PARATHYROID PROFILE Ca Norm WB 1.08 1.05 - 1.25 10/17/2016 [facility] PARATHYROID PROFILE PTH Intact 185.3 11.1 - 79.5 10/17/2016 [facility] URINE CHEM U Prot/Creat 7.3 10/16/2016 [facility] URINE CHEM U Creatinine 84.80 10/16/2016 [facility] URINE CHEM U Protein 623.2 10/16/2016 [facility] HEMATOLOGY Basophils # 0.1 0.0 - 0.2 10/16/2016 [facility] IMMUNOLOGY Prealbumin 12.7 18.0 - 45.0 10/16/2016 [facility] CHEM PANEL Lactic Acid Lvl 1.0 0.5 - 2.2 10/15/2016 [facility] CHEM PANEL AST 10 0 - 37 10/15/2016 [facility] CHEM PANEL ALT 12 0 - 65 10/15/2016 [facility] CHEM PANEL A/G Ratio 0.4 0.7 - 1.6 10/15/2016 [facility] CHEM PANEL Globulin 4.0 2.7 - 4.2 10/15/2016 [facility] CHEM PANEL Alk Phos 104 39 - 136 10/15/2016 [facility] CHEM PANEL Albumin Lvl 1.4 3.5 - 5.0 10/15/2016 [facility] CHEM PANEL Total Protein 5.4 6.4 - 8.4 10/15/2016 [facility] HEMATOLOGY Basophils # 0.1 0.0 - 0.2 10/15/2016 [facility] DRUG SCREEN UDS Note See Note (10/14/16 10:29 PM) 10/15/2016 [facility] DRUG SCREEN U Propoxyph Scr Nega tive *NA* (10/14/16 10:29 PM) Negative 10/15/2016 [facility] DRUG SCREEN U Cocaine Scr Nega tive *NA* (10/14/16 10:29 PM) Negative 10/15/2016 [facility] DRUG SCREEN U Cannab Scr Nega tive *NA* (10/14/16 10:29 PM) Negative 10/15/2016 [facility] DRUG SCREEN U Opiate Scr Posi tive *ABN* (10/14/16 10:29 PM) Negative 10/15/2016 [facility] DRUG SCREEN U Phencyc Scr Nega tive *NA* (10/14/16 10:29 PM) Negative 10/15/2016 [facility] DRUG SCREEN U Methadone Scr Nega tive *NA* (10/14/16 10:29 PM) Negative 10/15/2016 [facility] DRUG SCREEN U Esther Scr Nega tive *NA* (10/14/16 10:29 PM) Negative 10/15/2016 [facility] DRUG SCREEN U Benzodia Scr Nega tive *NA* (10/14/16 10:29 PM) Negative 10/15/2016 [facility] DRUG SCREEN U Amph Scr Nega tive *NA* (10/14/16 10:29 PM) Negative 10/15/2016 [facility] URINE AND STOOL UA Urobilinogen <=1.0 mg/dL 0.1 - 1.0 10/15/2016 [facility] URINE AND STOOL UA Bacteria Few /HPF None Seen /HPF 10/15/2016 [facility] URINE AND STOOL UA RBC <1 0 - 2 10/15/2016 [facility] URINE AND STOOL UA Hyal Cast 6 0 - 2 10/15/2016 [facility] URINE AND STOOL UA Mucus Few /LPF None Seen /LPF 10/15/2016 [facility] URINE AND STOOL UA Blood Small *ABN* (10/14/16 10:29 PM) Negative 10/15/2016 [facility] URINE AND STOOL UA Nitrite Negative (10/14/16 10:29 PM) Negative 10/15/2016 [facility] URINE AND STOOL UA Leuk Est Negative (10/14/16 10:29 PM) Negative 10/15/2016 [facility] URINE AND STOOL UA WBC 5 0 - 5 10/15/2016 [facility] URINE AND STOOL UA Sq Epi Few /LPF Few /LPF 10/15/2016 [facility] URINE AND STOOL UA Color Yellow *NA* (10/14/16 10:29 PM) Yellow 10/15/2016 [facility] URINE AND STOOL UA Glucose 150 mg/dL Negative mg/dL 10/15/2016 [facility] URINE AND STOOL UA Protein >=300 mg/dL Negative mg/dL 10/15/2016 [facility] URINE AND STOOL UA Turbidity Clear (10/14/16 10:29 PM) Clear 10/15/2016 [facility] URINE AND STOOL UA Spec Grav 1.015 <=1.030 10/15/2016 [facility] URINE AND STOOL UA pH 6.5 5.0 - 8.0 10/15/2016 [facility] URINE AND STOOL UA Ketones Negative mg/dL Negative mg/dL 10/15/2016 [facility] URINE AND STOOL UA Bili Negative *NA* (10/14/16 10:29 PM) Negative 10/15/2016 [facility] URINE AND STOOL UA Bacteria Many /HPF None Seen /HPF 2016 [facility] URINE AND STOOL UA RBC 3-5 /HPF 0 - 2 2016 [facility] URINE AND STOOL UA [place] Yeast Moderate /HPF None Seen /HPF 2016 [facility] URINE AND STOOL UA Mucus Many /LPF None Seen /LPF 2016 [facility] URINE AND STOOL UA WBC 6-10 /HPF None Seen /HPF 2016 [facility] URINE AND STOOL UA Sq Epi Many /LPF Few /LPF 2016 [facility] URINE AND STOOL UA Nitrite Negative (10/14/16 6:25 AM) Negative 2016 [facility] URINE AND STOOL UA Leuk Est Negative (10/14/16 6:25 AM) Negative 2016 [facility] URINE AND STOOL UA Turbidity Slight Cloudy (10/14/16 6:25 AM) Clear 2016 [facility] URINE AND STOOL UA Spec Grav 1.020 <=1.030 2016 [facility] URINE AND STOOL UA Color Yellow *NA* (10/14/16 6:25 AM) Yellow 2016 [facility] URINE AND STOOL UA Urobilinogen 0.2 0.1 - 1.0 2016 [facility] URINE AND STOOL UA Bili Negative *NA* (10/14/16 6:25 AM) Negative 2016 [facility] URINE AND STOOL UA Blood Small *ABN* (10/14/16 6:25 AM) Negative 2016 [facility] URINE AND STOOL UA Ketones Negative *NA* (10/14/16 6:25 AM) Negative 2016 [facility] URINE AND STOOL UA Protein >=300 mg/dL Negative mg/dL 2016 [facility] URINE AND STOOL UA Glucose 100 mg/dL Negative mg/dL 2016 [facility] URINE AND STOOL UA pH 6.5 5.0 - 8.0 2016 [facility] CHEM PANEL Lipase Lvl 61 73 - 393 2016 [facility] CHEM PANEL A/G Ratio 0.4 0.7 - 1.6 10/12/2016 [facility] CHEM PANEL eGFR 25 10/12/2016 Result Comment: The eGFR is calculated using the [...] from the National Kidney Disease Education Program (NKDEP) which additionally recommends that when the eGFR is used in patients with extremes of body mass index for purposes of drug dosing, the eGFR should be multiplied by the estimated BMI. [facility] CHEM PANEL Bili Total <0.1 0.2 - 1.3 10/12/2016 [facility] CHEM PANEL Alk Phos 88 39 - 136 10/12/2016 [facility] CHEM PANEL AST 15 0 - 37 10/12/2016 [facility] CHEM PANEL ALT 11 0 - 65 10/12/2016 [facility] CHEM PANEL Sodium Lvl 147 135 - 145 10/12/2016 [facility] CHEM PANEL Creatinine Lvl 2.37 0.50 - 1.40 10/12/2016 [facility] CHEM PANEL Globulin 3.6 2.7 - 4.2 10/12/2016 [facility] CHEM PANEL Chloride Lvl 120 95 - 109 10/12/2016 [facility] CHEM PANEL Potassium Lvl 4.0 3.5 - 5.1 10/12/2016 [facility] CHEM PANEL AGAP 13.0 10.0 - 20.0 10/12/2016 [facility] CHEM PANEL CO2 18 24 - 32 10/12/2016 [facility] CHEM PANEL BUN 15 7 - 22 10/12/2016 [facility] CHEM PANEL Glucose Lvl 83 70 - 99 10/12/2016 [facility] CHEM PANEL Calcium Lvl 7.5 8.5 - 10.5 10/12/2016 [facility] CHEM PANEL Albumin Lvl 1.3 3.5 - 5.0 10/12/2016 [facility] CHEM PANEL Total Protein 4.9 6.4 - 8.4 10/12/2016 [facility] CHEM PANEL B/C Ratio 6 6 - 25 10/12/2016 [facility] HEMATOLOGY Basophils # 0.1 0.0 - 0.2 10/12/2016 [facility] HEMATOLOGY Monocytes # 0.5 0.0 - 0.8 10/12/2016 [facility] HEMATOLOGY Eosinophils # 0.5 0.0 - 0.5 10/12/2016 [facility] HEMATOLOGY Segs 50.7 45.0 - 75.0 10/12/2016 [facility] HEMATOLOGY Lymphocytes 33.2 20.0 - 40.0 10/12/2016 [facility] HEMATOLOGY Basophils 1.0 0.0 - 1.0 10/12/2016 [facility] HEMATOLOGY Lymphocytes # 2.3 1.0 - 5.5 10/12/2016 [facility] HEMATOLOGY Eosinophils 7.6 0.0 - 4.0 10/12/2016 [facility] HEMATOLOGY Segs-Bands # 3.5 1.5 - 8.1 10/12/2016 [facility] HEMATOLOGY Monocytes 7.5 2.0 - 12.0 10/12/2016 [facility] HEMATOLOGY WBC 6.9 3.7 - 10.4 10/12/2016 [facility] HEMATOLOGY MPV 8.6 7.4 - 10.4 10/12/2016 [facility] HEMATOLOGY Platelet 325 133 - 450 10/12/2016 [facility] HEMATOLOGY RBC 2.63 4.20 - 5.40 10/12/2016 [facility] HEMATOLOGY Hgb 7.4 12.0 - 16.0 10/12/2016 [facility] HEMATOLOGY Hct 22.9 36.0 - 48.0 10/12/2016 [facility] HEMATOLOGY MCV 87.4 80.0 - 98.0 10/12/2016 [facility] HEMATOLOGY MCH 28.3 27.0 - 31.0 10/12/2016 [facility] HEMATOLOGY MCHC 32.4 32.0 - 36.0 10/12/2016 [facility] HEMATOLOGY RDW 14.3 11.5 - 14.5 10/12/2016 [facility] HEMATOLOGY Hct 25.6 36.0 - 48.0 10/11/2016 [facility] HEMATOLOGY Hgb 8.4 12.0 - 16.0 10/11/2016 [facility] ANEMIA STUDY Ferritin Lvl 177 5 - 204 10/11/2016 [facility] CHEM PANEL Amylase Lvl 4 25 - 115 10/11/2016 [facility] CHEM PANEL eGFR 23 10/11/2016 Result Comment: The eGFR is calculated using the [...] from the National Kidney Disease Education Program (NKDEP) which additionally recommends that when the eGFR is used in patients with extremes of body mass index for purposes of drug dosing, the eGFR should be multiplied by the estimated BMI. [facility] CHEM PANEL CO2 22 24 - 32 10/11/2016 [facility] CHEM PANEL Calcium Lvl 7.2 8.5 - 10.5 10/11/2016 [facility] CHEM PANEL Potassium Lvl 4.0 3.5 - 5.1 10/11/2016 [facility] CHEM PANEL Chloride Lvl 116 95 - 109 10/11/2016 [facility] CHEM PANEL BUN 16 7 - 22 10/11/2016 [facility] CHEM PANEL Glucose Lvl 123 70 - 99 10/11/2016 [facility] CHEM PANEL Sodium Lvl 145 135 - 145 10/11/2016 [facility] CHEM PANEL Creatinine Lvl 2.47 0.50 - 1.40 10/11/2016 [facility] CHEM PANEL Bili Total 0.2 0.2 - 1.3 10/11/2016 [facility] CHEM PANEL ALT 9 0 - 65 10/11/2016 [facility] CHEM PANEL AST 11 0 - 37 10/11/2016 [facility] CHEM PANEL Alk Phos 86 39 - 136 10/11/2016 [facility] CHEM PANEL Total Protein 5.0 6.4 - 8.4 10/11/2016 [facility] CHEM PANEL Albumin Lvl 1.4 3.5 - 5.0 10/11/2016 [facility] CHEM PANEL Globulin 3.6 2.7 - 4.2 10/11/2016 [facility] CHEM PANEL A/G Ratio 0.4 0.7 - 1.6 10/11/2016 [facility] CHEM PANEL AGAP 11.0 10.0 - 20.0 10/11/2016 [facility] CHEM PANEL B/C Ratio 6 6 - 25 10/11/2016 [facility] CHEM PANEL Lipase Lvl 53 73 - 393 10/11/2016 [facility] HEMATOLOGY Sed Rate 86 0 - 20 10/11/2016 [facility] [place] HEMATOLOGY RDW 14.4 11.5 - 14.5 10/11/2016 [facility] [place] HEMATOLOGY Platelet 355 133 - 450 10/11/2016 [facility] [place] HEMATOLOGY MPV 8.4 7.4 - 10.4 10/11/2016 [facility] [place] HEMATOLOGY MCH 28.2 27.0 - 31.0 10/11/2016 [facility] [place] HEMATOLOGY MCHC 32.6 32.0 - 36.0 10/11/2016 [facility] [place] HEMATOLOGY RBC 2.48 4.20 - 5.40 10/11/2016 [facility] [place] HEMATOLOGY Hgb 7.0 12.0 - 16.0 10/11/2016 Result Comment: Critical Result(s) carbone d to Mi Davis at 10/11/2016 08:43 by tt. Read back OK. [facility] [place] HEMATOLOGY Hct 21.5 36.0 - 48.0 10/11/2016 [facility] [place] HEMATOLOGY MCV 86.6 80.0 - 98.0 10/11/2016 [facility] [place] HEMATOLOGY WBC 8.3 3.7 - 10.4 10/11/2016 [facility] [place] LIPIDS Trig 179 <=149 mg/dL 10/11/2016 [facility] [place] LIPIDS Chol 211 <=199 mg/dL 10/11/2016 [facility] [place] LIPIDS HDL 37 >=61 mg/dL 10/11/2016 [facility] [place] LIPIDS CHD Risk 5.70 3.90 - 5.80 10/11/2016 [facility] [place] LIPIDS LDL (Calculated) 138 <=99 mg/dL 10/11/2016 [facility] [place] LIPIDS VLDL 36 10/11/2016 [facility] [place] PARATHYROID PROFILE Ca Ion WB 1.07 1.05 - 1.25 10/11/2016 [facility] [place] PARATHYROID PROFILE Ca Norm WB 1.06 1.05 - 1.25 10/11/2016 [facility] [place] CHEM PANEL Lipase Lvl 56 73 - 393 10/11/2016 [facility] [place] CHEM PANEL Lactic Acid WB 1.1 0.5 - 2.2 10/11/2016 [facility] [place] CHEM PANEL Albumin Lvl 2.0 3.5 - 5.0 10/11/2016 [facility] [place] CHEM PANEL AST 17 0 - 37 10/11/2016 [facility] [place] CHEM PANEL Total Protein 7.3 6.4 - 8.4 10/11/2016 [facility] [place] CHEM PANEL Alk Phos 123 39 - 136 10/11/2016 [facility] [place] CHEM PANEL ALT 12 0 - 65 10/11/2016 [facility] [place] CHEM PANEL Bili Total 0.2 0.2 - 1.3 10/11/2016 [facility] [place] CHEM PANEL Bili Direct 0.1 0.0 - 0.3 10/11/2016 [facility] [place] CHEM PANEL Bili Indirect 0.1 0.0 - 1.0 10/11/2016 [facility] [place] CHEM PANEL Globulin 5.3 2.7 - 4.2 10/11/2016 [facility] [place] CHEM PANEL A/G Ratio 0.4 0.7 - 1.6 10/11/2016 [facility] [place] CHEM PANEL Lipase Lvl 90 73 - 393 10/11/2016 [facility] [place] CHEM PANEL Creatinine Lvl 2.58 0.50 - 1.40 10/11/2016 [facility] [place] CHEM PANEL BUN 16 7 - 22 10/11/2016 [facility] [place] CHEM PANEL Glucose Lvl 127 70 - 99 10/11/2016 [facility] [place] CHEM PANEL Calcium Lvl 8.4 8.5 - 10.5 10/11/2016 [facility] [place] CHEM PANEL Sodium Lvl 142 135 - 145 10/11/2016 [facility] [place] CHEM PANEL CO2 16 24 - 32 10/11/2016 [facility] [place] CHEM PANEL Chloride Lvl 111 95 - 109 10/11/2016 [facility] [place] CHEM PANEL eGFR 22 10/11/2016 Result Comment: The eGFR is calculated using the [...] from the National Kidney Disease Education Program (NKDEP) which additionally recommends that when the eGFR is used in patients with extremes of body mass index for purposes of drug dosing, the eGFR should be multiplied by the estimated BMI. [facility] [place] CHEM PANEL Potassium Lvl 3.8 3.5 - 5.1 10/11/2016 [facility] [place] CHEM PANEL AGAP 18.8 10.0 - 20.0 10/11/2016 [facility] [place] HEMATOLOGY MPV 8.4 7.4 - 10.4 10/11/2016 [facility] [place] HEMATOLOGY Platelet 455 133 - 450 10/11/2016 [facility] [place] HEMATOLOGY RDW 14.7 11.5 - 14.5 10/11/2016 [facility] [place] HEMATOLOGY MCHC 32.0 32.0 - 36.0 10/11/2016 [facility] [place] HEMATOLOGY MCH 27.9 27.0 - 31.0 10/11/2016 [facility] [place] HEMATOLOGY MCV 87.2 80.0 - 98.0 10/11/2016 [facility] [place] HEMATOLOGY RBC 3.71 4.20 - 5.40 10/11/2016 [facility] [place] HEMATOLOGY WBC 9.1 3.7 - 10.4 10/11/2016 [facility] [place] HEMATOLOGY Lymphocytes # 2.2 1.0 - 5.5 10/11/2016 [facility] [place] HEMATOLOGY Monocytes # 0.6 0.0 - 0.8 10/11/2016 [facility] [place] HEMATOLOGY Eosinophils # 0.5 0.0 - 0.5 10/11/2016 [facility] [place] HEMATOLOGY Basophils # 0.1 0.0 - 0.2 10/11/2016 [facility] [place] HEMATOLOGY Lymphocytes 24.6 20.0 - 40.0 10/11/2016 [facility] [place] HEMATOLOGY Monocytes 7.0 2.0 - 12.0 10/11/2016 [facility] [place] HEMATOLOGY Segs-Bands # 5.7 1.5 - 8.1 10/11/2016 [facility] [place] HEMATOLOGY Eosinophils 5.1 0.0 - 4.0 10/11/2016 [facility] [place] HEMATOLOGY Basophils 1.3 0.0 - 1.0 10/11/2016 [facility] [place] HEMATOLOGY Segs 62.0 45.0 - 75.0 10/11/2016 [facility] [place] CHEM PANEL eGFR 16 10/07/2016 Result Comment: The eGFR is calculated using the [...] from the National Kidney Disease Education Program (NKDEP) which additionally recommends that when the eGFR is used in patients with extremes of body mass index for purposes of drug dosing, the eGFR should be multiplied by the estimated BMI. [facility] CHEM PANEL Chloride Lvl 114 95 - 109 10/07/2016 [facility] CHEM PANEL CO2 19 24 - 32 10/07/2016 [facility] CHEM PANEL Calcium Lvl 8.0 8.5 - 10.5 10/07/2016 [facility] CHEM PANEL BUN 21 7 - 22 10/07/2016 [facility] CHEM PANEL Creatinine Lvl 3.40 0.50 - 1.40 10/07/2016 [facility] CHEM PANEL Glucose Lvl 100 70 - 99 10/07/2016 [facility] CHEM PANEL Potassium Lvl 4.2 3.5 - 5.1 10/07/2016 [facility] CHEM PANEL Sodium Lvl 142 135 - 145 10/07/2016 [facility] CHEM PANEL AGAP 13.2 10.0 - 20.0 10/07/2016 [facility] HEMATOLOGY Hct 22.7 36.0 - 48.0 10/07/2016 [facility] HEMATOLOGY RDW 14.3 11.5 - 14.5 10/07/2016 [facility] HEMATOLOGY MPV 8.5 7.4 - 10.4 10/07/2016 [facility] [place][note 2] Platelet 276 133 - 450 10/07/2016 [facility] HEMATOLOGY WBC 4.7 3.7 - 10.4 10/07/2016 [facility] HEMATOLOGY MCV 87.4 80.0 - 98.0 10/07/2016 [facility] [place][note 2] MCH 29.3 27.0 - 31.0 10/07/2016 [facility] [place][note 2] MCHC 33.5 32.0 - 36.0 10/07/2016 [facility] HEMATOLOGY Hgb 7.6 12.0 - 16.0 10/07/2016 [facility] HEMATOLOGY RBC 2.60 4.20 - 5.40 10/07/2016 [facility] HEMATOLOGY Segs-Bands # 1.8 1.5 - 8.1 10/07/2016 [facility] HEMATOLOGY Lymphocytes # 1.9 1.0 - 5.5 10/07/2016 [facility] HEMATOLOGY Monocytes # 0.4 0.0 - 0.8 10/07/2016 [facility] HEMATOLOGY Eosinophils # 0.6 0.0 - 0.5 10/07/2016 [facility] HEMATOLOGY Segs 37.7 45.0 - 75.0 10/07/2016 [facility] HEMATOLOGY Lymphocytes 40.1 20.0 - 40.0 10/07/2016 [facility] HEMATOLOGY Basophils 0.7 0.0 - 1.0 10/07/2016 [facility] HEMATOLOGY Eosinophils 12.0 0.0 - 4.0 10/07/2016 [facility] HEMATOLOGY Monocytes 9.5 2.0 - 12.0 10/07/2016 [facility] ELECTROLYTES AGAP 15.1 10.0 - 20.0 10/06/2016 [facility] ELECTROLYTES eGFR 20 10/06/2016 Result Comment: The eGFR is calculated using the [...] from the National Kidney Disease Education Program (NKDEP) which additionally recommends that when the eGFR is used in patients with extremes of body mass index for purposes of drug dosing, the eGFR should be multiplied by the estimated BMI. [facility] ELECTROLYTES Calcium Lvl 7.9 8.5 - 10.5 10/06/2016 [facility] ELECTROLYTES Chloride Lvl 113 95 - 109 10/06/2016 [facility] ELECTROLYTES CO2 17 24 - 32 10/06/2016 [facility] ELECTROLYTES Sodium Lvl 141 135 - 145 10/06/2016 [facility] ELECTROLYTES Potassium Lvl 4.1 3.5 - 5.1 10/06/2016 [facility] ELECTROLYTES Glucose Lvl 75 70 - 99 10/06/2016 [facility] ELECTROLYTES Creatinine Lvl 3.2 0 0.50 - 1.40 10/06/2016 [facility] ELECTROLYTES BUN 19 7 - 22 10/06/2016 [facility] [place][note 2] MCHC 32.8 32.0 - 36.0 10/06/2016 [facility] [place][note 2] MPV 9.5 7.4 - 10.4 10/06/2016 [facility] [place][note 2] Platelet 270 133 - 450 10/06/2016 [facility] HEMATOLOGY RDW 14.1 11.5 - 14.5 10/06/2016 [facility] [place][note 2] WBC 6.4 3.7 - 10.4 10/06/2016 [facility] [place][note 2] RBC 2.73 4.20 - 5.40 10/06/2016 [facility] [place][note 2] MCV 90.0 80.0 - 98.0 10/06/2016 [facility] [place][note 2] MCH 29.5 27.0 - 31.0 10/06/2016 [facility] [place][note 2] Hgb 8.0 12.0 - 16.0 10/06/2016 [facility] [place][note 2] Hct 24.6 36.0 - 48.0 10/06/2016 [facility] [place][note 2] Lymphocytes 36.9 20.0 - 40.0 10/06/2016 [facility] [place][note 2] Monocytes 9.2 2.0 - 12.0 10/06/2016 [facility] [place][note 2] Segs 41.3 45.0 - 75.0 10/06/2016 [facility] [place][note 2] Monocytes # 0.6 0.0 - 0.8 10/06/2016 [facility] [place][note 2] Segs-Bands # 2.6 1.5 - 8.1 10/06/2016 [facility] [place][note 2] Eosinophils 11.8 0.0 - 4.0 10/06/2016 [facility] [place][note 2] Lymphocytes # 2.3 1.0 - 5.5 10/06/2016 [facility] HEMATOLOGY Basophils 0.8 0.0 - 1.0 10/06/2016 [facility] [place][note 2] Eosinophils # 0.7 0.0 - 0.5 10/06/2016 [facility] CARDIAC ENZYMES BNP 695 <=100 pg/mL 10/05/2016 [facility] CHEM PANEL eGFR 20 10/05/2016 Result Comment: The eGFR is calculated using the [...] from the National Kidney Disease Education Program (NKDEP) which additionally recommends that when the eGFR is used in patients with extremes of body mass index for purposes of drug dosing, the eGFR should be multiplied by the estimated BMI. [facility] CHEM PANEL Sodium Lvl 143 135 - 145 10/05/2016 [facility] CHEM PANEL Glucose Lvl 93 70 - 99 10/05/2016 [facility] CHEM PANEL BUN 20 7 - 22 10/05/2016 [facility] CHEM PANEL Creatinine Lvl 3.20 0.50 - 1.40 10/05/2016 [facility] CHEM PANEL Calcium Lvl 7.5 8.5 - 10.5 10/05/2016 [facility] CHEM PANEL Chloride Lvl 115 95 - 109 10/05/2016 [facility] CHEM PANEL CO2 17 24 - 32 10/05/2016 [facility] CHEM PANEL Potassium Lvl 4.1 3.5 - 5.1 10/05/2016 [facility] CHEM PANEL AGAP 15.1 10.0 - 20.0 10/05/2016 [facility] CHEM PANEL Bili Direct <0.1 0.0 - 0.3 10/05/2016 [facility] CHEM PANEL Bili Indirect Unabl e to Calculate 0.0 - 1.0 10/05/2016 [facility] CHEM PANEL Bili Total 0.3 0.2 - 1.3 10/05/2016 [facility] CHEM PANEL A/G Ratio 0.5 0.7 - 1.6 10/05/2016 [facility] CHEM PANEL ALT 13 0 - 65 10/05/2016 [facility] CHEM PANEL Alk Phos 76 39 - 136 10/05/2016 [facility] CHEM PANEL AST 15 0 - 37 10/05/2016 [facility] CHEM PANEL Albumin Lvl 1.8 3.5 - 5.0 10/05/2016 [facility] CHEM PANEL Total Protein 5.2 6.4 - 8.4 10/05/2016 [facility] CHEM PANEL Globulin 3.4 2.7 - 4.2 10/05/2016 [facility] CHEM PANEL Magnesium Lvl 1.8 1.8 - 2.4 10/05/2016 [facility] CHEM PANEL Phosphorus 4.3 2.5 - 4.5 10/05/2016 [facility] HEMATOLOGY Eosinophils 9.6 0.0 - 4.0 10/05/2016 [facility] HEMATOLOGY Segs-Bands # 2.5 1.5 - 8.1 10/05/2016 [facility] [place][note 2] Monocytes # 0.5 0.0 - 0.8 10/05/2016 [facility] HEMATOLOGY Basophils 0.7 0.0 - 1.0 10/05/2016 [facility] HEMATOLOGY Lymphocytes # 1.7 1.0 - 5.5 10/05/2016 [facility] HEMATOLOGY Eosinophils # 0.5 0.0 - 0.5 10/05/2016 [facility] [place][note 2] Lymphocytes 32.9 20.0 - 40.0 10/05/2016 [facility] HEMATOLOGY Segs 47.8 45.0 - 75.0 10/05/2016 [facility] [place][note 2] Monocytes 9.0 2.0 - 12.0 10/05/2016 [facility] HEMATOLOGY WBC 5.2 3.7 - 10.4 10/05/2016 [facility] [place][note 2] RBC 2.61 4.20 - 5.40 10/05/2016 [facility] [place][note 2] MCV 89.8 80.0 - 98.0 10/05/2016 [facility] [place][note 2] Hgb 7.7 12.0 - 16.0 10/05/2016 [facility] [place][note 2] Hct 23.4 36.0 - 48.0 10/05/2016 [facility] [place][note 2] RDW 14.2 11.5 - 14.5 10/05/2016 [facility] [place][note 2] Platelet 234 133 - 450 10/05/2016 [facility] [place][note 2] MCH 29.5 27.0 - 31.0 10/05/2016 [facility] [place][note 2] MCHC 32.9 32.0 - 36.0 10/05/2016 [facility] [place][note 2] MPV 8.5 7.4 - 10.4 10/05/2016 [facility] CHEM PANEL Globulin 3.3 2.7 - 4.2 10/04/2016 [facility] CHEM PANEL A/G Ratio 0.6 0.7 - 1.6 10/04/2016 [facility] CHEM PANEL B/C Ratio 6 6 - 25 10/04/2016 [facility] CHEM PANEL AST 10 0 - 37 10/04/2016 [facility] CHEM PANEL ALT 12 0 - 65 10/04/2016 [facility] CHEM PANEL Alk Phos 82 39 - 136 10/04/2016 [facility] CHEM PANEL Bili Total 0.2 0.2 - 1.3 10/04/2016 [facility] CHEM PANEL Albumin Lvl 2.0 3.5 - 5.0 10/04/2016 [facility] CHEM PANEL Total Protein 5.3 6.4 - 8.4 10/04/2016 [facility] CARDIAC ENZYMES BNP 457 <=100 pg/mL 10/04/2016 [facility] ENDOCRINOLOGY Renin Activity 0. 344 0.167 - 5.380 10/04/2016 Result Comment: This test was developed and its performance characteristics
determined by [facility]. It has not been cleared or
approved by the Food and Drug Administration.
Performed At: [facility]
[address] [place], [place] [id number]
Min Franklin MD Ph:[phone] [facility] CARDIAC ENZYMES BNP 408 <=100 pg/mL 10/04/2016 [facility] CHEM PANEL Phosphorus 5.0 2.5 - 4.5 10/04/2016 [facility] CHEM PANEL Magnesium Lvl 1.9 1.8 - 2.4 10/04/2016 [facility] CHEM PANEL Bili Total 0.2 0.2 - 1.3 10/04/2016 [facility] CHEM PANEL Alk Phos 85 39 - 136 10/04/2016 [facility] CHEM PANEL Bili Indirect Unabl e to Calculate 0.0 - 1.0 10/04/[address] [facility] [address] CHEM PANEL Globulin 3.7 2.7 - 4.2 10/04/2016 [facility] CHEM PANEL Bili Direct <0.1 0.0 - 0.3 10/04/2016 [facility] CHEM PANEL Albumin Lvl 2.3 3.5 - 5.0 10/04/2016 [facility] CHEM PANEL AST 16 0 - 37 10/04/2016 [facility] CHEM PANEL ALT 12 0 - 65 10/04/2016 [facility] CHEM PANEL A/G Ratio 0.6 0.7 - 1.6 10/04/2016 [facility] CHEM PANEL Total Protein 6.0 6.4 - 8.4 10/04/2016 [facility] HEMATOLOGY Basophils # 0.1 0.0 - 0.2 10/04/2016 [facility] URINE CHEM U24 Aldosterone Comme nt 0.00 - 19.00 10/03/2016 Result Comment: No total volume submitte d. Unable to calculate 24 hour
result.
Adult Ranges
Low Sodium Intake 20.00 - 80.00
Normal Sodium Intake 0.00 - 19.00
High Sodium Intake 0.00 - 12.00

This test was developed and its perfor rodney characteristics
determined by [facility]. It has not been cleared or
approved by the Food and Drug Administration.
Performed At: [facility] [place]
[address] [place] [address], [place] [id number]
Min Franklin MD Ph:[phone]
Performed At: [facility] [place]
[address] [place], [place] [id number]
Janis Woods MD Ph:[phone] [facility] URINE CHEM U Creat mg/dL 51.2 Not Estab. mg/dL 10/03/2016 [facility] URINE CHEM U Aldosterone <2.50 Not Estab. microgram/Liter 10/03/2016 [facility] URINE CHEM U24 Creatinine Comme nt 800 - 1800 10/03/2016 Result Comment: No total volume submitte d. Unable to calculate 24 hour
result. [facility] HEMATOLOGY Basophils # 0.0 0.0 - 0.2 10/03/2016 [facility] HEMATOLOGY Polychrom Moder ate *ABN* (10/03/16 3:25 PM) None Seen 10/03/2016 [facility] BLOOD BANNER RESULTS ABO/Rh A POS 10/03/2016 [facility] BLOOD BANNER RESULTS Antibody Scrn Negative (10/03/16 10:54 AM) 10/03/2016 [facility] BLOOD BANNER RESULTS RBC product Product available (10/03/16 10:45 AM) 10/03/2016 [facility] CHEM PANEL B/C Ratio 7 6 - 25 10/03/2016 [facility] URINE AND STOOL UA Urobilinogen <=1.0 0.1 - 1.0 10/02/2016 [facility] URINE AND STOOL UA Color Yellow 10/02/2016 [facility] URINE AND STOOL UA Protein 100 mg/dL Negative mg/dL 10/02/2016 [facility] URINE AND STOOL UA Glucose 500 mg/dL Negative mg/dL 10/02/2016 [facility] URINE AND STOOL UA pH 6.0 5.0 - 8.0 10/02/2016 [facility] URINE AND STOOL UA Mucus Few /LPF None Seen /LPF 10/02/2016 [facility] URINE AND STOOL UA Sq Epi Occasional /LPF Few /LPF 10/02/2016 [facility] URINE AND STOOL UA Leuk Est Negative (10/02/16 6:17 PM) Negative 10/02/2016 [facility] URINE AND STOOL UA WBC 2 0 - 5 10/02/2016 [facility] URINE AND STOOL UA Bacteria Occasional /HPF None Seen /HPF 10/02/2016 [facility] URINE AND STOOL UA Nitrite Negative (10/02/16 6:17 PM) Negative 10/02/2016 [facility] URINE AND STOOL UA Blood Negative (10/02/16 6:17 PM) Negative 10/02/2016 [facility] URINE AND STOOL UA Spec Grav 1.013 <=1.030 10/02/2016 [facility] URINE AND STOOL UA Turbidity Slight *ABN* (10/02/16 6:17 PM) Clear 10/02/2016 [facility] URINE AND STOOL UA Bili Negative *NA* (10/02/16 6:17 PM) Negative 10/02/2016 [facility] URINE AND STOOL UA Ketones Negative mg/dL Negative mg/dL 10/02/2016 [facility] CHEM PANEL Phosphorus 4.4 2.5 - 4.5 10/02/2016 [facility] CHEM PANEL Magnesium Lvl 1.8 1.8 - 2.4 10/02/2016 [facility] ENDOCRINOLOGY Normetanephrine 10 9 0 - 145 10/02/2016 [facility] ENDOCRINOLOGY Metanephrine <10 0 - 62 10/02/2016 Result Comment:
Concentrations of Normetanephrine between 146 and 487
pg/mL, and Metanephrine between 63 and 255 pg/mL are
considered indeterminate. Follow-up biochemical testing is
recommended when patient levels fall within this
indeterminate range. These tests include repeat testing of
plasma/urinary fractionated metanephrines and plasma
catecholamines.
Performed At: [facility]
[address], [place] [id number]
Min Franklin MD Ph:[phone] [facility] ENDOCRINOLOGY Cortisol 25.3 10/02/2016 [facility] HEMATOLOGY Basophils # 0.0 0.0 - 0.2 10/02/2016 [facility] HEMATOLOGY INR 1.06 0.85 - 1.17 10/02/2016 [facility] HEMATOLOGY PTT 34.1 22.9 - 35.8 10/02/2016 [facility] HEMATOLOGY PT 14.0 12.0 - 14.7 10/02/2016 [facility] PARATHYROID PROFILE Ca Norm WB 1.07 1.05 - 1.25 10/02/2016 [facility] PARATHYROID PROFILE Ca Ion WB 1.10 1.05 - 1.25 10/02/2016 [facility] SPECIAL CHEMISTRY Hgb A1C 5.0 <=5.6 % 10/02/2016 [facility] BACTERIAL - SEROLOGY MRSA by PCR Negative (10/02/16 2:54 PM) 10/02/2016 [facility] CHEM PANEL B/C Ratio 8 6 - 25 10/02/2016 [facility] HEMATOLOGY PT 13.2 12.0 - 14.7 10/02/2016 [facility] HEMATOLOGY PTT 34.3 22.9 - 35.8 10/02/2016 [facility] HEMATOLOGY INR 0.98 0.85 - 1.17 10/02/2016 [facility] CHEM PANEL Lactic Acid Lvl 0.5 0.5 - 2.2 10/02/2016 [facility] URINE AND STOOL UA Nitrite Negative (10/02/16 3:21 AM) Negative 10/02/2016 [facility] URINE AND STOOL UA Sq Epi Few /LPF Few /LPF 10/02/2016 [facility] URINE AND STOOL UA Leuk Est Negative (10/02/16 3:21 AM) Negative 10/02/2016 [facility] URINE AND STOOL UA Blood Negative (10/02/16 3:21 AM) Negative 10/02/2016 [facility] URINE AND STOOL UA Bili Negative *NA* (10/02/16 3:21 AM) Negative 10/02/2016 [facility] URINE AND STOOL UA Glucose 500 mg/dL Negative mg/dL 10/02/2016 [facility] [facility] URINE AND STOOL UA Protein >=300 mg/dL Negative mg/dL 10/02/2016 [facility] URINE AND STOOL UA Ketones Negative mg/dL Negative mg/dL 10/02/2016 [facility] URINE AND STOOL UA pH 7.0 5.0 - 8.0 10/02/2016 [facility] URINE AND STOOL UA Turbidity Slight *ABN* (10/02/16 3:21 AM) Clear 10/02/2016 [facility] URINE AND STOOL UA Spec Grav 1.017 <=1.030 10/02/2016 [facility] URINE AND STOOL UA Urobilinogen <=1.0 mg/dL 0.1 - 1.0 10/02/2016 [facility] URINE AND STOOL UA Color Yellow 10/02/2016 [facility] URINE AND STOOL UA Hyal Cast 1 0 - 2 10/02/2016 [facility] URINE AND STOOL UA RBC 2 0 - 2 10/02/2016 [facility] URINE AND STOOL UA WBC 11 0 - 5 10/02/2016 [facility] URINE AND STOOL UA Mucus Few /LPF None Seen /LPF 10/02/2016 [facility] CHEM PANEL Bili Indirect 0.1 0.0 - 1.0 10/02/2016 [facility] CHEM PANEL Bili Direct 0.1 0.0 - 0.3 10/02/2016 [facility] CHEM PANEL Lipase Lvl 139 73 - 393 10/02/2016 [facility] ENDOCRINOLOGY S Preg Ne gative *NA* (10/02/16 2:13 AM) Negative 10/02/2016 [facility] ELECTROLYTES AGAP 12.5 10.0 - 20.0 09/28/2016 [facility] ELECTROLYTES eGFR 28 09/28/2016 Result Comment: The eGFR is calculated using the [...] from the National Kidney Disease Education Program (NKDEP) which additionally recommends that when the eGFR is used in patients with extremes of body mass index for purposes of drug dosing, the eGFR should be multiplied by the estimated BMI. [facility] ELECTROLYTES Calcium Lvl 7.4 8.5 - 10.5 09/28/2016 [facility] ELECTROLYTES Chloride Lvl 112 95 - 109 09/28/2016 [facility] ELECTROLYTES CO2 24 24 - 32 09/28/2016 [facility] ELECTROLYTES Potassium Lvl 4.5 3.5 - 5.1 09/28/2016 [facility] ELECTROLYTES Creatinine Lvl 2.4 0 0.50 - 1.40 09/28/2016 [facility] ELECTROLYTES BUN 21 7 - 22 09/28/2016 [facility] ELECTROLYTES Sodium Lvl 144 135 - 145 09/28/2016 [facility] ELECTROLYTES Glucose Lvl 136 70 - 99 09/28/2016 [facility] HEMATOLOGY WBC 5.5 3.7 - 10.4 09/28/2016 [facility] HEMATOLOGY RBC 3.10 4.20 - 5.40 09/28/2016 [facility] [place][note 2] Hgb 8.8 12.0 - 16.0 09/28/2016 [facility] [place][note 2] Hct 27.6 36.0 - 48.0 09/28/2016 [facility] [place][note 2] MCV 89.0 80.0 - 98.0 09/28/2016 [facility] [place][note 2] MCH 28.4 27.0 - 31.0 09/28/2016 [facility] [place][note 2] MCHC 31.9 32.0 - 36.0 09/28/2016 [facility] [place][note 2] RDW 14.3 11.5 - 14.5 09/28/2016 [facility] [place][note 2] Platelet 346 133 - 450 09/28/2016 [facility] [place][note 2] MPV 8.1 7.4 - 10.4 09/28/2016 [facility] [place][note 2] Lymphocytes 47.3 20.0 - 40.0 09/28/2016 [facility] [place][note 2] Monocytes 5.4 2.0 - 12.0 09/28/2016 [facility] [place][note 2] Eosinophils 7.1 0.0 - 4.0 09/28/2016 [facility] [place][note 2] Segs-Bands # 2.1 1.5 - 8.1 09/28/2016 [facility] HEMATOLOGY Eosinophils # 0.4 0.0 - 0.5 09/28/2016 [facility] [place][note 2] Lymphocytes # 2.6 1.0 - 5.5 09/28/2016 [facility] [place][note 2] Monocytes # 0.3 0.0 - 0.8 09/28/2016 [facility] HEMATOLOGY Basophils # 0.1 0.0 - 0.2 09/28/2016 [facility] HEMATOLOGY Segs 38.8 45.0 - 75.0 09/28/2016 [facility] [place][note 2] Basophils 1.4 0.0 - 1.0 09/28/2016 [facility] URINE AND STOOL UA Glucose 150 09/27/2016 [facility] URINE AND STOOL UA Urobilinogen <=1.0 0.1 - 1.0 09/27/2016 [facility] URINE AND STOOL UA Color Ltyellow 09/27/2016 [facility] URINE AND STOOL Micro? Performed *NA* (09/27/16 2:03 PM) 09/27/2016 [facility] URINE AND STOOL UA Leuk Est Negative (09/27/16 2:03 PM) Negative 09/27/2016 [facility] URINE AND STOOL UA Nitrite Negative (09/27/16 2:03 PM) Negative 09/27/2016 [facility] URINE AND STOOL UA Blood Negative (09/27/16 2:03 PM) Negative 09/27/2016 [facility] URINE AND STOOL UA Sq Epi Occasional /LPF Few /LPF 09/27/2016 [facility] URINE AND STOOL UA RBC 2 0 - 2 09/27/2016 [facility] URINE AND STOOL UA WBC 6 0 - 5 09/27/2016 [facility] URINE AND STOOL UA pH 6.0 5.0 - 8.0 09/27/2016 [facility] URINE AND STOOL UA Bili Negative *NA* (09/27/16 2:03 PM) Negative 09/27/2016 [facility] URINE AND STOOL UA Ketones Negative mg/dL Negative mg/dL 09/27/2016 [facility] URINE AND STOOL UA Turbidity Slight *ABN* (09/27/16 2:03 PM) Clear 09/27/2016 [facility] URINE AND STOOL UA Spec Grav 1.012 <=1.030 09/27/2016 [facility] URINE AND STOOL UA Protein 100 mg/dL Negative mg/dL 09/27/2016 [facility] CHEM PANEL Phosphorus 4.5 2.5 - 4.5 09/27/2016 [facility] CHEM PANEL Magnesium Lvl 1.5 1.8 - 2.4 09/27/2016 [facility] ELECTROLYTES AGAP 12.9 10.0 - 20.0 09/27/2016 [facility] ELECTROLYTES eGFR 25 09/27/2016 Result Comment: The eGFR is calculated using the [...] from the National Kidney Disease Education Program (NKDEP) which additionally recommends that when the eGFR is used in patients with extremes of body mass index for purposes of drug dosing, the eGFR should be multiplied by the estimated BMI. [facility] ELECTROLYTES Sodium Lvl 142 135 - 145 09/27/2016 [facility] ELECTROLYTES Potassium Lvl 4.9 3.5 - 5.1 09/27/2016 [facility] ELECTROLYTES BUN 21 7 - 22 09/27/2016 [facility] ELECTROLYTES Creatinine Lvl 2.6 0 0.50 - 1.40 09/27/2016 [facility] ELECTROLYTES Glucose Lvl 103 70 - 99 09/27/2016 [facility] ELECTROLYTES Chloride Lvl 113 95 - 109 09/27/2016 [facility] ELECTROLYTES CO2 21 24 - 32 09/27/2016 [facility] ELECTROLYTES Calcium Lvl 8.1 8.5 - 10.5 09/27/2016 [facility] HEMATOLOGY WBC 5.5 3.7 - 10.4 09/27/2016 [facility] [place][note 2] RBC 3.02 4.20 - 5.40 09/27/2016 [facility] [place][note 2] Hgb 8.9 12.0 - 16.0 09/27/2016 [facility] [place][note 2] Hct 26.9 36.0 - 48.0 09/27/2016 [facility] [place][note 2] Platelet 288 133 - 450 09/27/2016 [facility] [place][note 2] MCV 89.3 80.0 - 98.0 09/27/2016 [facility] [place][note 2] MCH 29.6 27.0 - 31.0 09/27/2016 [facility] [place][note 2] MCHC 33.2 32.0 - 36.0 09/27/2016 [facility] [place][note 2] RDW 14.4 11.5 - 14.5 09/27/2016 [facility] [place][note 2] MPV 8.1 7.4 - 10.4 09/27/2016 [facility] [place][note 2] Monocytes 5.4 2.0 - 12.0 09/27/2016 [facility] [place][note 2] Eosinophils 7.1 0.0 - 4.0 09/27/2016 [facility] [place][note 2] Basophils 1.4 0.0 - 1.0 09/27/2016 [facility] [place][note 2] Segs-Bands # 2.3 1.5 - 8.1 09/27/2016 [facility] [place][note 2] Lymphocytes # 2.4 1.0 - 5.5 09/27/2016 [facility] HEMATOLOGY Monocytes # 0.3 0.0 - 0.8 09/27/2016 [facility] HEMATOLOGY Basophils # 0.1 0.0 - 0.2 09/27/2016 [facility] HEMATOLOGY Eosinophils # 0.4 0.0 - 0.5 09/27/2016 [facility] [place][note 2] Segs 42.5 45.0 - 75.0 09/27/2016 [facility] [place][note 2] Lymphocytes 43.6 20.0 - 40.0 09/27/2016 [facility] CHEM PANEL eGFR 27 09/26/2016 Result Comment: The eGFR is calculated using the [...] from the National Kidney Disease Education Program (NKDEP) which additionally recommends that when the eGFR is used in patients with extremes of body mass index for purposes of drug dosing, the eGFR should be multiplied by the estimated BMI. [facility] CHEM PANEL Sodium Lvl 142 135 - 145 09/26/2016 [facility] CHEM PANEL Creatinine Lvl 2.50 0.50 - 1.40 09/26/2016 [facility] CHEM PANEL BUN 21 7 - 22 09/26/2016 [facility] CHEM PANEL Glucose Lvl 80 70 - 99 09/26/2016 [facility] CHEM PANEL Potassium Lvl 4.7 3.5 - 5.1 09/26/2016 [facility] CHEM PANEL Chloride Lvl 113 95 - 109 09/26/2016 [facility] CHEM PANEL CO2 21 24 - 32 09/26/2016 [facility] CHEM PANEL Calcium Lvl 7.7 8.5 - 10.5 09/26/2016 [facility] CHEM PANEL AGAP 12.7 10.0 - 20.0 09/26/2016 [facility] HEMATOLOGY Basophils # 0.1 0.0 - 0.2 09/26/2016 [facility] [place][note 2] Monocytes # 0.4 0.0 - 0.8 09/26/2016 [facility] HEMATOLOGY Eosinophils # 0.4 0.0 - 0.5 09/26/2016 [facility] HEMATOLOGY Basophils 1.3 0.0 - 1.0 09/26/2016 [facility] HEMATOLOGY Segs-Bands # 2.6 1.5 - 8.1 09/26/2016 [facility] [place][note 2] Lymphocytes # 2.3 1.0 - 5.5 09/26/2016 [facility] [place][note 2] Eosinophils 7.1 0.0 - 4.0 09/26/2016 [facility] HEMATOLOGY Segs 45.4 45.0 - 75.0 09/26/2016 [facility] [place][note 2] Lymphocytes 39.2 20.0 - 40.0 09/26/2016 [facility] [place][note 2] Monocytes 7.0 2.0 - 12.0 09/26/2016 [facility] [place][note 2] RDW 14.5 11.5 - 14.5 09/26/2016 [facility] [place][note 2] MCHC 33.3 32.0 - 36.0 09/26/2016 [facility] [place][note 2] MPV 8.0 7.4 - 10.4 09/26/2016 [facility] [place][note 2] Platelet 306 133 - 450 09/26/2016 [facility] [place][note 2] MCH 29.5 27.0 - 31.0 09/26/2016 [facility] [place][note 2] Hct 27.3 36.0 - 48.0 09/26/2016 [facility] [place][note 2] Hgb 9.1 12.0 - 16.0 09/26/2016 [facility] [place][note 2] MCV 88.6 80.0 - 98.0 09/26/2016 [facility] [place][note 2] RBC 3.08 4.20 - 5.40 09/26/2016 [facility] [place][note 2] WBC 5.8 3.7 - 10.4 09/26/2016 [facility] URINE AND STOOL UA Glucose 50 09/23/2016 [facility] URINE AND STOOL UA Urobilinogen <=1.0 0.1 - 1.0 09/23/2016 [facility] URINE AND STOOL UA Color Ltyellow 09/23/2016 [facility] URINE AND STOOL UA Leuk Est Negative (09/23/16 5:35 PM) Negative 09/23/2016 [facility] URINE AND STOOL UA Nitrite Negative (09/23/16 5:35 PM) Negative 09/23/2016 [facility] URINE AND STOOL UA Blood Negative (09/23/16 5:35 PM) Negative 09/23/2016 [facility] URINE AND STOOL UA Sq Epi Few /LPF Few /LPF 09/23/2016 [facility] URINE AND STOOL UA Spec Grav 1.010 <=1.030 09/23/2016 [facility] URINE AND STOOL UA Turbidity Slight *ABN* (09/23/16 5:35 PM) Clear 09/23/2016 [facility] URINE AND STOOL Micro? Performed *NA* (09/23/16 5:35 PM) 09/23/2016 [facility] URINE AND STOOL UA Ketones Negative mg/dL Negative mg/dL 09/23/[address] [facility] [address] URINE AND STOOL UA Bili Negative *NA* (09/23/16 5:35 PM) Negative 09/23/2016 [facility] URINE AND STOOL UA Protein 100 mg/dL Negative mg/dL 09/23/2016 [facility] URINE AND STOOL UA pH 6.0 5.0 - 8.0 09/23/2016 [facility] URINE AND STOOL UA Bacteria Occasional /HPF None Seen /HPF 09/23/[address] [facility] [address] URINE AND STOOL UA WBC 7 0 - 5 09/23/2016 [facility] URINE AND STOOL UA RBC 1 0 - 2 09/23/2016 [facility] URINE CHEM U Prot/Creat 7.3 09/23/2016 [facility] URINE CHEM U Protein 424.6 09/23/2016 [facility] URINE CHEM U Creatinine 57.90 09/23/2016 [facility] IMMUNOLOGY Hep B Core IgM Negat anitra *NA* (09/23/16 11:05 AM) Negative 09/23/2016 [facility] IMMUNOLOGY Hep C Ab Negat anitra *NA* (09/23/16 11:05 AM) 09/23/2016 [facility] Hep A IgM Negat anitra *NA* (09/23/16 11:05 AM) Negative 09/23/2016 [facility] IMMUNOLOGY Hep Bs Ag Negat anitra *NA* (09/23/16 11:05 AM) Negative 09/23/2016 [facility] MOLECULAR DIAGNOSTIC Vir Ld-HIV1 RNA Not Detected (09/23/16 11:05 AM) 09/23/2016 [facility] MOLECULAR DIAGNOSTIC Log10 HIV1 <1.3 09/23/2016 [facility] SPECIAL CHEMISTRY Hgb A1C 4.7 <=5.6 % 09/23/2016 [facility] HEMATOLOGY PTT 35.8 22.9 - 35.8 09/22/2016 [facility] HEMATOLOGY PT 14.4 12.0 - 14.7 09/22/2016 [facility] HEMATOLOGY INR 1.10 0.85 - 1.17 09/22/2016 [facility] CHEM PANEL Alk Phos 106 39 - 136 09/21/2016 [facility] CHEM PANEL Bili Direct <0.1 0.0 - 0.3 09/21/2016 [facility] CHEM PANEL Bili Total 0.1 0.2 - 1.3 09/21/2016 [facility] CHEM PANEL Globulin 4.2 2.7 - 4.2 09/21/2016 [facility] CHEM PANEL A/G Ratio 0.3 0.7 - 1.6 09/21/2016 [facility] CHEM PANEL ALT 10 0 - 65 09/21/2016 [facility] CHEM PANEL Bili Indirect Unabl e to Calculate 0.0 - 1.0 09/21/2016 [facility] CHEM PANEL AST 10 0 - 37 09/21/2016 [facility] CHEM PANEL Total Protein 5.5 6.4 - 8.4 09/21/2016 [facility] CHEM PANEL Albumin Lvl 1.3 3.5 - 5.0 09/21/2016 [facility] PARATHYROID PROFILE Ca Norm WB 1.15 1.05 - 1.25 09/21/2016 [facility] PARATHYROID PROFILE Ca Ion WB 1.18 1.05 - 1.25 09/21/2016 [facility] HEMATOLOGY Plt Morph Rosina l (09/18/16 4:21 AM) 09/18/2016 [facility] HEMATOLOGY RBC Morph Rosina l (09/18/16 4:21 AM) 09/18/2016 [facility] PARATHYROID PROFILE Ca Ion WB 1.02 1.05 - 1.25 09/17/2016 [facility] PARATHYROID PROFILE Ca Norm WB 1.01 1.05 - 1.25 09/17/2016 [facility] CHEM PANEL Lipase Lvl 86 73 - 393 09/16/2016 [facility] CHEM PANEL A/G Ratio 0.3 0.7 - 1.6 09/16/2016 [facility] CHEM PANEL Globulin 4.6 2.7 - 4.2 09/16/2016 [facility] CHEM PANEL B/C Ratio 9 6 - 25 09/16/2016 [facility] CHEM PANEL Total Protein 6.0 6.4 - 8.4 09/16/2016 [facility] CHEM PANEL ALT 8 0 - 65 09/16/2016 [facility] CHEM PANEL Albumin Lvl 1.4 3.5 - 5.0 09/16/2016 [facility] CHEM PANEL AST 8 0 - 37 09/16/2016 [facility] CHEM PANEL Alk Phos 139 39 - 136 09/16/2016 [facility] CHEM PANEL Bili Total 0.2 0.2 - 1.3 09/16/2016 [facility] ENDOCRINOLOGY S Preg Ne gative *NA* (09/15/16 9:05 PM) Negative 09/16/2016 [facility] URINE AND STOOL UA Sq Epi None Seen 09/16/2016 [facility] URINE AND STOOL UA Urobilinogen <=1.0 mg/dL 0.1 - 1.0 09/16/2016 [facility] URINE AND STOOL UA Color Yellow 09/16/2016 [facility] URINE AND STOOL UA Glucose 50 09/16/2016 [facility] URINE AND STOOL UA Bacteria Many /HPF None Seen /HPF 09/16/2016 [facility] URINE AND STOOL UA RBC 4 0 - 2 09/16/2016 [facility] URINE AND STOOL UA Leuk Est Large *ABN* (09/15/16 9:05 PM) Negative 09/16/2016 [facility] URINE AND STOOL UA Bili Negative *NA* (09/15/16 9:05 PM) Negative 09/16/2016 [facility] URINE AND STOOL UA WBC >182 0 - 5 09/16/2016 [facility] URINE AND STOOL UA Ketones Negative mg/dL Negative mg/dL 09/16/2016 [facility] URINE AND STOOL UA Blood Negative (09/15/16 9:05 PM) Negative 09/16/2016 [facility] URINE AND STOOL UA Nitrite Negative (09/15/16 9:05 PM) Negative 09/16/2016 [facility] URINE AND STOOL UA Amorph Tamera Occasional /HPF None Seen /HPF 09/16/2016 [facility] URINE AND STOOL UA Mucus Few /LPF None Seen /LPF 09/16/2016 [facility] URINE AND STOOL UA Protein >=300 mg/dL Negative mg/dL 09/16/2016 [facility] URINE AND STOOL UA Turbidity Moderate *ABN* (09/15/16 9:05 PM) Clear 09/16/2016 [facility] URINE AND STOOL UA pH 5.0 5.0 - 8.0 09/16/2016 [facility] URINE AND STOOL UA Spec Grav 1.014 <=1.030 09/16/2016 [facility] MOLECULAR DIAGNOSTIC C difficile DNA Negative (09/10/16 12:20 AM) Negative 09/10/2016 [facility] CHEM PANEL Bili Indirect 0.0 0.0 - 1.0 09/09/2016 [facility] CHEM PANEL Bili Total 0.1 0.2 - 1.3 09/09/2016 [facility] CHEM PANEL Bili Direct 0.1 0.0 - 0.3 09/09/2016 [facility] CHEM PANEL Total Protein 5.4 6.4 - 8.4 09/09/2016 [facility] CHEM PANEL Albumin Lvl 1.3 3.5 - 5.0 09/09/2016 [facility] CHEM PANEL Globulin 4.1 2.7 - 4.2 09/09/2016 [facility] CHEM PANEL A/G Ratio 0.3 0.7 - 1.6 09/09/2016 [facility] CHEM PANEL ALT 10 0 - 65 09/09/2016 [facility] CHEM PANEL AST 12 0 - 37 09/09/2016 [facility] CHEM PANEL Alk Phos 103 39 - 136 09/09/2016 [facility] CHEM PANEL eGFR 20 09/09/2016 Result Comment: The eGFR is calculated using the [...] from the National Kidney Disease Education Program (NKDEP) which additionally recommends that when the eGFR is used in patients with extremes of body mass index for purposes of drug dosing, the eGFR should be multiplied by the estimated BMI. [facility] CHEM PANEL BUN 25 7 - 22 09/09/2016 [facility] CHEM PANEL Creatinine Lvl 3.21 0.50 - 1.40 09/09/2016 [facility] CHEM PANEL Sodium Lvl 142 135 - 145 09/09/2016 [facility] CHEM PANEL Potassium Lvl 4.4 3.5 - 5.1 09/09/2016 [facility] CHEM PANEL Glucose Lvl 82 70 - 99 09/09/2016 [facility] CHEM PANEL Chloride Lvl 113 95 - 109 09/09/2016 [facility] CHEM PANEL CO2 18 24 - 32 09/09/2016 [facility] CHEM PANEL AGAP 15.4 10.0 - 20.0 09/09/2016 [facility] CHEM PANEL Calcium Lvl 7.7 8.5 - 10.5 09/09/2016 [facility] HEMATOLOGY RBC 2.85 4.20 - 5.40 09/09/2016 [facility] HEMATOLOGY WBC 8.5 3.7 - 10.4 09/09/2016 [facility] HEMATOLOGY Hgb 8.2 12.0 - 16.0 09/09/2016 [facility] HEMATOLOGY MCV 88.0 80.0 - 98.0 09/09/2016 [facility] HEMATOLOGY MCHC 32.5 32.0 - 36.0 09/09/2016 [facility] HEMATOLOGY MCH 28.6 27.0 - 31.0 09/09/2016 [facility] HEMATOLOGY RDW 15.0 11.5 - 14.5 09/09/2016 [facility] HEMATOLOGY Hct 25.1 36.0 - 48.0 09/09/2016 [facility] HEMATOLOGY Platelet 357 133 - 450 09/09/2016 [facility] HEMATOLOGY MPV 7.6 7.4 - 10.4 09/09/2016 [facility] HEMATOLOGY Monocytes # 0.5 0.0 - 0.8 09/09/2016 [facility] HEMATOLOGY Basophils # 0.1 0.0 - 0.2 09/09/2016 [facility] HEMATOLOGY Eosinophils # 0.2 0.0 - 0.5 09/09/2016 [facility] HEMATOLOGY Segs 53.2 45.0 - 75.0 09/09/2016 [facility] HEMATOLOGY Lymphocytes 38.3 20.0 - 40.0 09/09/2016 [facility] HEMATOLOGY Eosinophils 2.4 0.0 - 4.0 09/09/2016 [facility] HEMATOLOGY Monocytes 5.4 2.0 - 12.0 09/09/2016 [facility] HEMATOLOGY Segs-Bands # 4.5 1.5 - 8.1 09/09/2016 [facility] HEMATOLOGY Basophils 0.7 0.0 - 1.0 09/09/2016 [facility] HEMATOLOGY Lymphocytes # 3.3 1.0 - 5.5 09/09/2016 [facility] URINE AND STOOL UA Gran Cast 1 09/09/2016 [facility] URINE AND STOOL UA Urobilinogen <=1.0 mg/dL 0.1 - 1.0 09/09/2016 [facility] URINE AND STOOL UA Sq Epi None Seen 09/09/2016 [facility] URINE AND STOOL UA Glucose Negative mg/dL Negative mg/dL 09/09/2016 [facility] URINE AND STOOL UA Ketones Negative mg/dL Negative mg/dL 09/09/2016 [facility] URINE AND STOOL UA Spec Grav 1.007 <=1.030 09/09/2016 [facility] URINE AND STOOL UA pH 6.0 5.0 - 8.0 09/09/2016 [facility] URINE AND STOOL UA Protein >=300 mg/dL Negative mg/dL 09/09/2016 [facility] URINE AND STOOL UA WBC 2 0 - 5 09/09/2016 [facility] URINE AND STOOL UA RBC 2 0 - 2 09/09/2016 [facility] URINE AND STOOL UA Leuk Est Negative (09/09/16 3:48 AM) Negative 09/09/2016 [facility] URINE AND STOOL UA Nitrite Negative (09/09/16 3:48 AM) Negative 09/09/2016 [facility] URINE AND STOOL UA Bili Negative *NA* (09/09/16 3:48 AM) Negative 09/09/2016 [facility] URINE AND STOOL UA Blood Negative (09/09/16 3:48 AM) Negative 09/09/2016 [facility] URINE AND STOOL UA Amorph Tamera Occasional /HPF None Seen /HPF 09/09/2016 [facility] URINE AND STOOL UA Bacteria Occasional /HPF None Seen /HPF 09/09/2016 [facility] URINE AND STOOL UA Mucus Few /LPF None Seen /LPF 09/09/2016 [facility] URINE AND STOOL UA Color Light Yellow *NA* (09/09/16 3:48 AM) Yellow 09/09/2016 [facility] URINE AND STOOL UA Turbidity Clear (09/09/16 3:48 AM) Clear 09/09/2016 [facility] CHEM PANEL Phosphorus 3.8 2.5 - 4.5 09/08/2016 [facility] CHEM PANEL Magnesium Lvl 1.6 1.8 - 2.4 09/08/2016 [facility] ELECTROLYTES AGAP 14.9 10.0 - 20.0 09/08/2016 [facility] ELECTROLYTES eGFR 20 09/08/2016 Result Comment: The eGFR is calculated using the [...] from the National Kidney Disease Education Program (NKDEP) which additionally recommends that when the eGFR is used in patients with extremes of body mass index for purposes of drug dosing, the eGFR should be multiplied by the estimated BMI. [facility] ELECTROLYTES BUN 22 7 - 22 09/08/2016 [facility] ELECTROLYTES Glucose Lvl 164 70 - 99 09/08/2016 [facility] ELECTROLYTES Creatinine Lvl 3.1 5 0.50 - 1.40 09/08/2016 [facility] ELECTROLYTES Chloride Lvl 115 95 - 109 09/08/2016 [facility] ELECTROLYTES Sodium Lvl 143 135 - 145 09/08/2016 [facility] ELECTROLYTES CO2 18 24 - 32 09/08/2016 [facility] ELECTROLYTES Potassium Lvl 4.9 3.5 - 5.1 09/08/2016 [facility] ELECTROLYTES Calcium Lvl 8.0 8.5 - 10.5 09/08/2016 [facility] HEMATOLOGY Lymphocytes 15.5 20.0 - 40.0 09/08/2016 [facility] HEMATOLOGY Segs 82.1 45.0 - 75.0 09/08/2016 [facility] HEMATOLOGY Basophils # 0.1 0.0 - 0.2 09/08/2016 [facility] HEMATOLOGY Monocytes # 0.2 0.0 - 0.8 09/08/2016 [facility] HEMATOLOGY Eosinophils 0.1 0.0 - 4.0 09/08/2016 [facility] HEMATOLOGY Basophils 0.5 0.0 - 1.0 09/08/2016 [facility] HEMATOLOGY Segs-Bands # 8.2 1.5 - 8.1 09/08/2016 [facility] HEMATOLOGY Lymphocytes # 1.6 1.0 - 5.5 09/08/2016 [facility] HEMATOLOGY Monocytes 1.8 2.0 - 12.0 09/08/2016 [facility] HEMATOLOGY MPV 7.8 7.4 - 10.4 09/08/2016 [facility] HEMATOLOGY Platelet 402 133 - 450 09/08/2016 [facility] HEMATOLOGY RDW 14.8 11.5 - 14.5 09/08/2016 [facility] HEMATOLOGY MCV 89.5 80.0 - 98.0 09/08/2016 [facility] HEMATOLOGY Hct 27.9 36.0 - 48.0 09/08/2016 [facility] HEMATOLOGY MCHC 31.8 32.0 - 36.0 09/08/2016 [facility] HEMATOLOGY MCH 28.5 27.0 - 31.0 09/08/2016 [facility] HEMATOLOGY WBC 10.0 3.7 - 10.4 09/08/2016 [facility] HEMATOLOGY Hgb 8.9 12.0 - 16.0 09/08/2016 [facility] HEMATOLOGY RBC 3.12 4.20 - 5.40 09/08/2016 [facility] URINE CHEM U Preg Negat anitra (09/07/16 3:13 PM) Negative 09/07/2016 [facility] BLOOD BANK RESULTS Antibody Scrn Negative (09/07/16 3:04 PM) 09/07/2016 [facility] BLOOD BANK RESULTS ABO/Rh A POS 09/07/2016 [facility] CHEM PANEL Lactic Acid WB 0.7 0.5 - 2.2 09/07/2016 [facility] CHEM PANEL Lipase Lvl 118 73 - 393 09/07/2016 [facility] CHEM PANEL Total Protein 6.2 6.4 - 8.4 09/07/2016 [facility] CHEM PANEL Alk Phos 130 39 - 136 09/07/2016 [facility] CHEM PANEL Bili Total 0.1 0.2 - 1.3 09/07/2016 [facility] CHEM PANEL Bili Direct 0.0 0.0 - 0.3 09/07/2016 [facility] CHEM PANEL Bili Indirect 0.1 0.0 - 1.0 09/07/2016 [facility] CHEM PANEL A/G Ratio 0.3 0.7 - 1.6 09/07/2016 [facility] CHEM PANEL ALT 10 0 - 65 09/07/2016 [facility] CHEM PANEL AST 13 0 - 37 09/07/2016 [facility] CHEM PANEL Albumin Lvl 1.4 3.5 - 5.0 09/07/2016 [facility] CHEM PANEL Globulin 4.8 2.7 - 4.2 09/07/2016 [facility] CHEM PANEL eGFR 20 09/07/2016 Result Comment: The eGFR is calculated using the [...] from the National Kidney Disease Education Program (NKDEP) which additionally recommends that when the eGFR is used in patients with extremes of body mass index for purposes of drug dosing, the eGFR should be multiplied by the estimated BMI. [facility] CHEM PANEL Sodium Lvl 140 135 - 145 09/07/2016 [facility] CHEM PANEL Creatinine Lvl 3.11 0.50 - 1.40 09/07/2016 [facility] CHEM PANEL BUN 19 7 - 22 09/07/2016 [facility] CHEM PANEL CO2 21 24 - 32 09/07/2016 [facility] CHEM PANEL Potassium Lvl 4.4 3.5 - 5.1 09/07/2016 [facility] CHEM PANEL Chloride Lvl 112 95 - 109 09/07/2016 [facility] CHEM PANEL Glucose Lvl 127 70 - 99 09/07/2016 [facility] CHEM PANEL Calcium Lvl 8.1 8.5 - 10.5 09/07/2016 [facility] CHEM PANEL AGAP 11.4 10.0 - 20.0 09/07/2016 [facility] HEMATOLOGY Basophils # 0.1 0.0 - 0.2 09/07/2016 [facility] HEMATOLOGY Lymphocytes # 2.2 1.0 - 5.5 09/07/2016 [facility] HEMATOLOGY Eosinophils # 0.1 0.0 - 0.5 09/07/2016 [facility] HEMATOLOGY Monocytes # 0.7 0.0 - 0.8 09/07/2016 [facility] HEMATOLOGY Basophils 0.9 0.0 - 1.0 09/07/2016 [facility] HEMATOLOGY Segs-Bands # 7.4 1.5 - 8.1 09/07/2016 [facility] HEMATOLOGY Monocytes 6.4 2.0 - 12.0 09/07/2016 [facility] HEMATOLOGY Eosinophils 1.4 0.0 - 4.0 09/07/2016 [facility] HEMATOLOGY Segs 70.5 45.0 - 75.0 09/07/2016 [facility] HEMATOLOGY Lymphocytes 20.8 20.0 - 40.0 09/07/2016 [facility] HEMATOLOGY MPV 7.2 7.4 - 10.4 09/07/2016 [facility] HEMATOLOGY WBC 10.4 3.7 - 10.4 09/07/2016 [facility] HEMATOLOGY Hct 29.4 36.0 - 48.0 09/07/2016 [facility] HEMATOLOGY RBC 3.35 4.20 - 5.40 09/07/2016 [facility] HEMATOLOGY Hgb 9.5 12.0 - 16.0 09/07/2016 [facility] HEMATOLOGY Platelet 415 133 - 450 09/07/2016 [facility] HEMATOLOGY RDW 14.4 11.5 - 14.5 09/07/2016 [facility] HEMATOLOGY MCHC 32.2 32.0 - 36.0 09/07/2016 [facility] HEMATOLOGY MCH 28.3 27.0 - 31.0 09/07/2016 [facility] HEMATOLOGY MCV 87.8 80.0 - 98.0 09/07/2016 [facility] CHEM PANEL Lactic Acid WB 1.8 0.5 - 2.2 08/26/2016 [facility] CHEM PANEL Alk Phos 154 39 - 136 08/26/2016 [facility] CHEM PANEL Total Protein 6.5 6.4 - 8.4 08/26/2016 [facility] CHEM PANEL Albumin Lvl 1.6 3.5 - 5.0 08/26/2016 [facility] CHEM PANEL Globulin 4.9 2.7 - 4.2 08/26/2016 [facility] CHEM PANEL AST 11 0 - 37 08/26/2016 [facility] CHEM PANEL A/G Ratio 0.3 0.7 - 1.6 08/26/2016 [facility] CHEM PANEL ALT 11 0 - 65 08/26/2016 [facility] CHEM PANEL Bili Direct 0.0 0.0 - 0.3 08/26/2016 [facility] CHEM PANEL Bili Indirect 0.2 0.0 - 1.0 08/26/2016 [facility] CHEM PANEL Bili Total 0.2 0.2 - 1.3 08/26/2016 [facility] CHEM PANEL Lipase Lvl 60 73 - 393 08/26/2016 [facility] CHEM PANEL eGFR 21 08/26/2016 Result Comment: The eGFR is calculated using the [...] from the National Kidney Disease Education Program (NKDEP) which additionally recommends that when the eGFR is used in patients with extremes of body mass index for purposes of drug dosing, the eGFR should be multiplied by the estimated BMI. [facility] CHEM PANEL CO2 19 24 - 32 08/26/2016 [facility] CHEM PANEL Calcium Lvl 8.0 8.5 - 10.5 08/26/2016 [facility] CHEM PANEL Chloride Lvl 110 95 - 109 08/26/2016 [facility] CHEM PANEL Potassium Lvl 5.6 3.5 - 5.1 08/26/2016 [facility] CHEM PANEL Sodium Lvl 139 135 - 145 08/26/2016 [facility] CHEM PANEL Creatinine Lvl 2.99 0.50 - 1.40 08/26/2016 [facility] CHEM PANEL BUN 24 7 - 22 08/26/2016 [facility] CHEM PANEL Glucose Lvl 173 70 - 99 08/26/2016 [facility] CHEM PANEL AGAP 15.6 10.0 - 20.0 08/26/2016 [facility] HEMATOLOGY Monocytes 5.2 2.0 - 12.0 08/26/2016 [facility] HEMATOLOGY Lymphocytes 9.6 20.0 - 40.0 08/26/2016 [facility] HEMATOLOGY Segs 83.6 45.0 - 75.0 08/26/2016 [facility] HEMATOLOGY Monocytes # 0.7 0.0 - 0.8 08/26/2016 [facility] HEMATOLOGY Lymphocytes # 1.3 1.0 - 5.5 08/26/2016 [facility] HEMATOLOGY Eosinophils # 0.1 0.0 - 0.5 08/26/2016 [facility] HEMATOLOGY Basophils 0.6 0.0 - 1.0 08/26/2016 [facility] HEMATOLOGY Segs-Bands # 11.0 1.5 - 8.1 08/26/2016 [facility] HEMATOLOGY Eosinophils 1.0 0.0 - 4.0 08/26/2016 [facility] HEMATOLOGY Basophils # 0.1 0.0 - 0.2 08/26/2016 [facility] HEMATOLOGY WBC 13.2 3.7 - 10.4 08/26/2016 [facility] HEMATOLOGY MCV 88.8 80.0 - 98.0 08/26/2016 [facility] HEMATOLOGY Hct 29.9 36.0 - 48.0 08/26/2016 [facility] HEMATOLOGY RBC 3.37 4.20 - 5.40 08/26/2016 [facility] HEMATOLOGY Hgb 9.7 12.0 - 16.0 08/26/2016 [facility] HEMATOLOGY Platelet 370 133 - 450 08/26/2016 [facility] HEMATOLOGY RDW 14.6 11.5 - 14.5 08/26/2016 [facility] HEMATOLOGY MCHC 32.4 32.0 - 36.0 08/26/2016 [facility] HEMATOLOGY MCH 28.8 27.0 - 31.0 08/26/2016 [facility] HEMATOLOGY MPV 7.6 7.4 - 10.4 08/26/2016 [facility] URINE AND STOOL UA Ketones Negative *NA* (08/26/16 11:40 AM) Negative 08/26/2016 [facility] URINE AND STOOL UA Glucose 250 mg/dL Negative mg/dL 08/26/2016 [facility] URINE AND STOOL UA Bili Negative *NA* (08/26/16 11:40 AM) Negative 08/26/2016 [facility] URINE AND STOOL UA pH 6.5 5.0 - 8.0 08/26/2016 [facility] URINE AND STOOL UA Turbidity Clear (08/26/16 11:40 AM) Clear 08/26/2016 [facility] URINE AND STOOL UA Spec Grav 1.020 <=1.030 08/26/2016 [facility] URINE AND STOOL UA Protein >=300 mg/dL Negative mg/dL 08/26/2016 [facility] URINE AND STOOL UA Urobilinogen 0.2 0.1 - 1.0 08/26/2016 [facility] URINE AND STOOL UA Blood Trace *ABN* (08/26/16 11:40 AM) Negative 08/26/2016 [facility] URINE AND STOOL UA Color Yellow *NA* (08/26/16 11:40 AM) Yellow 08/26/2016 [facility] URINE AND STOOL UA Nitrite Negative (08/26/16 11:40 AM) Negative 08/26/2016 [facility] URINE AND STOOL UA Leuk Est Negative (08/26/16 11:40 AM) Negative 08/26/2016 [facility] URINE AND STOOL UA WBC 0-2 /HPF None Seen /HPF 08/26/2016 [facility] URINE AND STOOL UA Mucus Rare /LPF None Seen /LPF 08/26/2016 [facility] URINE AND STOOL UA Bacteria Few /HPF None Seen /HPF 08/26/2016 [facility] URINE AND STOOL UA Sq Epi Moderate /LPF Few /LPF 08/26/2016 [facility] URINE AND STOOL UA RBC 3-5 /HPF 0 - 2 08/26/2016 [facility] URINE CHEM U Preg Negat anitra (08/26/16 11:40 AM) Negative 08/26/2016 [facility] URINE AND STOOL UA RBC 0-2 /HPF 0 - 2 08/25/2016 [facility] URINE AND STOOL UA Bacteria Moderate /HPF None Seen /HPF 08/25/2016 [facility] URINE AND STOOL UA WBC 0-2 /HPF None Seen /HPF 08/25/2016 [facility] URINE AND STOOL UA Leuk Est Negative (08/24/16 11:30 PM) Negative 08/25/2016 [facility] URINE AND STOOL UA Nitrite Negative (08/24/16 11:30 PM) Negative 08/25/2016 [facility] URINE AND STOOL UA Sq Epi Few /LPF Few /LPF 08/25/2016 [facility] URINE AND STOOL UA Urobilinogen 0.2 0.1 - 1.0 08/25/2016 [facility] URINE AND STOOL UA Blood Small *ABN* (08/24/16 11:30 PM) Negative 08/25/2016 [facility] URINE AND STOOL UA Bili Negative *NA* (08/24/16 11:30 PM) Negative 08/25/2016 [facility] URINE AND STOOL UA Ketones Negative *NA* (08/24/16 11:30 PM) Negative 08/25/2016 [facility] URINE AND STOOL UA pH 7.0 5.0 - 8.0 08/25/2016 [facility] URINE AND STOOL UA Glucose 250 mg/dL Negative mg/dL 08/25/2016 [facility] URINE AND STOOL UA Protein >=300 mg/dL Negative mg/dL 08/25/2016 [facility] URINE AND STOOL UA Color Yellow *NA* (08/24/16 11:30 PM) Yellow 08/25/2016 [facility] URINE AND STOOL UA Spec Grav 1.020 <=1.030 08/25/2016 [facility] URINE AND STOOL UA Turbidity Slight Cloudy (08/24/16 11:30 PM) Clear 08/25/2016 [facility] URINE CHEM U Preg Negat anitra (08/24/16 11:30 PM) Negative 08/25/2016 [facility] CHEM PANEL Globulin 4.9 2.7 - 4.2 08/25/2016 [facility] CHEM PANEL A/G Ratio 0.3 0.7 - 1.6 08/25/2016 [facility] CHEM PANEL Total Protein 6.6 6.4 - 8.4 08/25/2016 [facility] CHEM PANEL Albumin Lvl 1.7 3.5 - 5.0 08/25/2016 [facility] CHEM PANEL Bili Indirect 0.2 0.0 - 1.0 08/25/2016 [facility] CHEM PANEL Alk Phos 156 39 - 136 08/25/2016 [facility] CHEM PANEL Bili Total 0.2 0.2 - 1.3 08/25/2016 [facility] CHEM PANEL Bili Direct 0.0 0.0 - 0.3 08/25/2016 [facility] CHEM PANEL ALT 12 0 - 65 08/25/2016 [facility] CHEM PANEL AST 9 0 - 37 08/25/2016 [facility] CHEM PANEL Lipase Lvl 76 73 - 393 08/25/2016 [facility] ELECTROLYTES AGAP 13.5 10.0 - 20.0 08/25/2016 [facility] ELECTROLYTES eGFR 20 08/25/2016 Result Comment: The eGFR is calculated using the [...] from the National Kidney Disease Education Program (NKDEP) which additionally recommends that when the eGFR is used in patients with extremes of body mass index for purposes of drug dosing, the eGFR should be multiplied by the estimated BMI. [facility] ELECTROLYTES Glucose Lvl 188 70 - 99 08/25/2016 [facility] ELECTROLYTES Calcium Lvl 8.2 8.5 - 10.5 08/25/2016 [facility] ELECTROLYTES Potassium Lvl 5.5 3.5 - 5.1 08/25/2016 [facility] ELECTROLYTES Chloride Lvl 110 95 - 109 08/25/2016 [facility] ELECTROLYTES CO2 22 24 - 32 08/25/2016 [facility] ELECTROLYTES BUN 25 7 - 22 08/25/2016 [facility] ELECTROLYTES Creatinine Lvl 3.1 2 0.50 - 1.40 08/25/2016 [facility] ELECTROLYTES Sodium Lvl 140 135 - 145 08/25/2016 [facility] HEMATOLOGY Basophils # 0.1 0.0 - 0.2 08/25/2016 [facility] HEMATOLOGY Segs-Bands # 3.7 1.5 - 8.1 08/25/2016 [facility] HEMATOLOGY Basophils 1.3 0.0 - 1.0 08/25/2016 [facility] HEMATOLOGY Lymphocytes 30.3 20.0 - 40.0 08/25/2016 [facility] HEMATOLOGY Eosinophils 3.0 0.0 - 4.0 08/25/2016 [facility] HEMATOLOGY Monocytes 6.4 2.0 - 12.0 08/25/2016 [facility] HEMATOLOGY Monocytes # 0.4 0.0 - 0.8 08/25/2016 [facility] HEMATOLOGY Eosinophils # 0.2 0.0 - 0.5 08/25/2016 [facility] HEMATOLOGY Lymphocytes # 1.9 1.0 - 5.5 08/25/2016 [facility] HEMATOLOGY Segs 59.0 45.0 - 75.0 08/25/2016 [facility] HEMATOLOGY MCV 88.1 80.0 - 98.0 08/25/2016 [facility] HEMATOLOGY WBC 6.3 3.7 - 10.4 08/25/2016 [facility] HEMATOLOGY Hct 31.1 36.0 - 48.0 08/25/2016 [facility] HEMATOLOGY Hgb 10.2 12.0 - 16.0 08/25/2016 [facility] HEMATOLOGY RBC 3.53 4.20 - 5.40 08/25/2016 [facility] HEMATOLOGY MCHC 32.9 32.0 - 36.0 08/25/2016 [facility] HEMATOLOGY MCH 28.9 27.0 - 31.0 08/25/2016 [facility] HEMATOLOGY MPV 7.8 7.4 - 10.4 08/25/2016 [facility] HEMATOLOGY Platelet 359 133 - 450 08/25/2016 [facility] HEMATOLOGY RDW 14.4 11.5 - 14.5 08/25/2016 [facility] URINE AND STOOL UA RBC 6-10 /HPF 0 - 2 08/22/2016 [facility] URINE AND STOOL UA WBC 3-5 /HPF None Seen /HPF 08/22/2016 [facility] URINE AND STOOL UA Bacteria Few /HPF None Seen /HPF 08/22/2016 [facility] URINE AND STOOL UA Hyal Cast 0-2 (08/21/16 8:42 PM) 0 - 2 08/22/2016 [facility] URINE AND STOOL Micro? Performed (08/21/16 8:42 PM) 08/22/2016 [facility] URINE AND STOOL UA Sq Epi Few /LPF Few /LPF 08/22/2016 [facility] URINE AND STOOL UA Bili Negative *NA* (08/21/16 8:42 PM) Negative 08/22/2016 [facility] URINE AND STOOL UA Ketones Negative *NA* (08/21/16 8:42 PM) Negative 08/22/2016 [facility] URINE AND STOOL UA Color Yellow *NA* (08/21/16 8:42 PM) Yellow 08/22/2016 [facility] URINE AND STOOL UA Spec Grav 1.020 <=1.030 08/22/2016 [facility] URINE AND STOOL UA Turbidity Slight Cloudy (08/21/16 8:42 PM) Clear 08/22/2016 [facility] URINE AND STOOL UA Nitrite Negative (08/21/16 8:42 PM) Negative 08/22/2016 [facility] URINE AND STOOL UA Urobilinogen 0.2 0.1 - 1.0 08/22/2016 [facility] URINE AND STOOL UA Blood Small *ABN* (08/21/16 8:42 PM) Negative 08/22/2016 [facility] URINE AND STOOL UA Leuk Est Negative (08/21/16 8:42 PM) Negative 08/22/2016 [facility] URINE AND STOOL UA Glucose 250 mg/dL Negative mg/dL 08/22/2016 [facility] URINE AND STOOL UA pH 6.5 5.0 - 8.0 08/22/2016 [facility] URINE AND STOOL UA Protein >=300 mg/dL Negative mg/dL 08/22/2016 [facility] URINE CHEM U Preg Negat anitra (08/21/16 8:42 PM) Negative 08/22/2016 [facility] CHEM PANEL Lipase Lvl 86 73 - 393 08/22/2016 [facility] CHEM PANEL A/G Ratio 0.3 0.7 - 1.6 08/22/2016 [facility] CHEM PANEL Globulin 4.7 2.7 - 4.2 08/22/2016 [facility] CHEM PANEL B/C Ratio 10 6 - 25 08/22/2016 [facility] CHEM PANEL AGAP 14.4 10.0 - 20.0 08/22/2016 [facility] CHEM PANEL Total Protein 6.3 6.4 - 8.4 08/22/2016 [facility] CHEM PANEL Bili Total 0.2 0.2 - 1.3 08/22/2016 [facility] CHEM PANEL Alk Phos 162 39 - 136 08/22/2016 [facility] CHEM PANEL ALT 10 0 - 65 08/22/2016 [facility] CHEM PANEL AST 7 0 - 37 08/22/2016 [facility] CHEM PANEL Albumin Lvl 1.6 3.5 - 5.0 08/22/2016 [facility] CHEM PANEL eGFR 19 08/22/2016 Result Comment: The eGFR is calculated using the [...] from the National Kidney Disease Education Program (NKDEP) which additionally recommends that when the eGFR is used in patients with extremes of body mass index for purposes of drug dosing, the eGFR should be multiplied by the estimated BMI. [facility] CHEM PANEL Glucose Lvl 187 70 - 99 08/22/2016 [facility] CHEM PANEL Calcium Lvl 8.3 8.5 - 10.5 08/22/2016 [facility] CHEM PANEL CO2 18 24 - 32 08/22/2016 [facility] CHEM PANEL Creatinine Lvl 3.26 0.50 - 1.40 08/22/2016 [facility] CHEM PANEL Chloride Lvl 112 95 - 109 08/22/2016 [facility] CHEM PANEL Sodium Lvl 139 135 - 145 08/22/2016 [facility] CHEM PANEL BUN 31 7 - 22 08/22/2016 [facility] CHEM PANEL Potassium Lvl 5.4 3.5 - 5.1 08/22/2016 [facility] HEMATOLOGY Monocytes 7.1 2.0 - 12.0 08/22/2016 [facility] HEMATOLOGY Segs 65.1 45.0 - 75.0 08/22/2016 [facility] HEMATOLOGY Lymphocytes 23.2 20.0 - 40.0 08/22/2016 [facility] HEMATOLOGY Basophils # 0.2 0.0 - 0.2 08/22/2016 [facility] HEMATOLOGY Eosinophils # 0.2 0.0 - 0.5 08/22/2016 [facility] HEMATOLOGY Segs-Bands # 5.1 1.5 - 8.1 08/22/2016 [facility] HEMATOLOGY Monocytes # 0.6 0.0 - 0.8 08/22/2016 [facility] HEMATOLOGY Basophils 2.2 0.0 - 1.0 08/22/2016 [facility] HEMATOLOGY Eosinophils 2.4 0.0 - 4.0 08/22/2016 [facility] HEMATOLOGY Lymphocytes # 1.8 1.0 - 5.5 08/22/2016 [facility] HEMATOLOGY WBC 7.9 3.7 - 10.4 08/22/2016 [facility] HEMATOLOGY RBC 3.46 4.20 - 5.40 08/22/2016 [facility] HEMATOLOGY Hgb 10.1 12.0 - 16.0 08/22/2016 [facility] HEMATOLOGY Hct 30.4 36.0 - 48.0 08/22/2016 [facility] HEMATOLOGY MPV 7.9 7.4 - 10.4 08/22/2016 [facility] HEMATOLOGY MCHC 33.1 32.0 - 36.0 08/22/2016 [facility] HEMATOLOGY MCH 29.1 27.0 - 31.0 08/22/2016 [facility] HEMATOLOGY RDW 14.2 11.5 - 14.5 08/22/2016 [facility] HEMATOLOGY Platelet 320 133 - 450 08/22/2016 [facility] HEMATOLOGY MCV 87.9 80.0 - 98.0 08/22/2016 [facility] CHEM PANEL A/G Ratio 0.3 0.7 - 1.6 08/17/2016 [facility] CHEM PANEL Bili Direct 0.0 0.0 - 0.3 08/17/2016 [facility] CHEM PANEL Bili Indirect 0.1 0.0 - 1.0 08/17/2016 [facility] CHEM PANEL Globulin 5.3 2.7 - 4.2 08/17/2016 [facility] CHEM PANEL Albumin Lvl 1.7 3.5 - 5.0 08/17/2016 [facility] CHEM PANEL Alk Phos 194 39 - 136 08/17/2016 [facility] CHEM PANEL AST 7 0 - 37 08/17/2016 [facility] CHEM PANEL ALT 15 0 - 65 08/17/2016 [facility] CHEM PANEL Total Protein 7.0 6.4 - 8.4 08/17/2016 [facility] CHEM PANEL Bili Total 0.1 0.2 - 1.3 08/17/2016 [facility] ELECTROLYTES AGAP 13.9 10.0 - 20.0 08/17/2016 [facility] ELECTROLYTES eGFR 21 08/17/2016 Result Comment: The eGFR is calculated using the [...] from the National Kidney Disease Education Program (NKDEP) which additionally recommends that when the eGFR is used in patients with extremes of body mass index for purposes of drug dosing, the eGFR should be multiplied by the estimated BMI. [facility] ELECTROLYTES CO2 20 24 - 32 08/17/2016 [facility] ELECTROLYTES Chloride Lvl 110 95 - 109 08/17/2016 [facility] ELECTROLYTES BUN 30 7 - 22 08/17/2016 [facility] ELECTROLYTES Calcium Lvl 8.0 8.5 - 10.5 08/17/2016 [facility] ELECTROLYTES Creatinine Lvl 3.0 9 0.50 - 1.40 08/17/2016 [facility] ELECTROLYTES Potassium Lvl 4.9 3.5 - 5.1 08/17/2016 [facility] ELECTROLYTES Sodium Lvl 139 135 - 145 08/17/2016 [facility] ELECTROLYTES Glucose Lvl 277 70 - 99 08/17/2016 [facility] HEMATOLOGY PTT 30.1 22.9 - 35.8 08/17/2016 [facility] HEMATOLOGY PT 12.2 12.0 - 14.7 08/17/2016 [facility] HEMATOLOGY INR 0.89 0.85 - 1.17 08/17/2016 [facility] HEMATOLOGY Basophils # 0.1 0.0 - 0.2 08/17/2016 [facility] HEMATOLOGY Eosinophils # 0.1 0.0 - 0.5 08/17/2016 [facility] HEMATOLOGY Monocytes # 0.5 0.0 - 0.8 08/17/2016 [facility] HEMATOLOGY Segs-Bands # 4.4 1.5 - 8.1 08/17/2016 [facility] HEMATOLOGY Lymphocytes # 2.5 1.0 - 5.5 08/17/2016 [facility] HEMATOLOGY Eosinophils 1.9 0.0 - 4.0 08/17/2016 [facility] HEMATOLOGY Basophils 1.0 0.0 - 1.0 08/17/2016 [facility] HEMATOLOGY Lymphocytes 32.6 20.0 - 40.0 08/17/2016 [facility] HEMATOLOGY Segs 58.0 45.0 - 75.0 08/17/2016 [facility] HEMATOLOGY Monocytes 6.5 2.0 - 12.0 08/17/2016 [facility] HEMATOLOGY RDW 14.7 11.5 - 14.5 08/17/2016 [facility] HEMATOLOGY Platelet 318 133 - 450 08/17/2016 [facility] HEMATOLOGY MPV 8.2 7.4 - 10.4 08/17/2016 [facility] HEMATOLOGY Hgb 10.8 12.0 - 16.0 08/17/2016 [facility] HEMATOLOGY Hct 33.2 36.0 - 48.0 08/17/2016 [facility] HEMATOLOGY MCV 88.4 80.0 - 98.0 08/17/2016 [facility] HEMATOLOGY MCH 28.8 27.0 - 31.0 08/17/2016 [facility] HEMATOLOGY MCHC 32.6 32.0 - 36.0 08/17/2016 [facility] HEMATOLOGY WBC 7.7 3.7 - 10.4 08/17/2016 [facility] HEMATOLOGY RBC 3.76 4.20 - 5.40 08/17/2016 [facility] URINE AND STOOL UA Sq Epi Rare /LPF Few /LPF 08/17/2016 [facility] URINE AND STOOL UA WBC 0-2 /HPF None Seen /HPF 08/17/2016 [facility] URINE AND STOOL UA RBC 3-5 /HPF 0 - 2 08/17/2016 [facility] URINE AND STOOL UA Bacteria Occasional /HPF None Seen /HPF 08/17/2016 [facility] URINE AND STOOL UA Leuk Est Negative (08/17/16 12:04 AM) Negative 08/17/2016 [facility] URINE AND STOOL UA Nitrite Negative (08/17/16 12:04 AM) Negative 08/17/2016 [facility] URINE AND STOOL UA Blood Moderate *ABN* (08/17/16 12:04 AM) Negative 08/17/2016 [facility] URINE AND STOOL UA Urobilinogen 0.2 0.1 - 1.0 08/17/2016 [facility] URINE AND STOOL UA Bili Negative *NA* (08/17/16 12:04 AM) Negative 08/17/2016 [facility] URINE AND STOOL UA Ketones Negative *NA* (08/17/16 12:04 AM) Negative 08/17/2016 [facility] URINE AND STOOL UA Protein >=300 mg/dL Negative mg/dL 08/17/2016 [facility] URINE AND STOOL UA Glucose 500 mg/dL Negative mg/dL 08/17/2016 [facility] URINE AND STOOL UA pH 6.5 5.0 - 8.0 08/17/2016 [facility] URINE AND STOOL UA Turbidity Slight Cloudy (08/17/16 12:04 AM) Clear 08/17/2016 [facility] URINE AND STOOL UA Spec Grav 1.015 <=1.030 08/17/2016 [facility] URINE AND STOOL UA Color Yellow *NA* (08/17/16 12:04 AM) Yellow 08/17/2016 [facility] URINE CHEM U Preg Negat anitra (08/17/16 12:04 AM) Negative 08/17/2016 [facility] CHEM PANEL Lipase Lvl 224 73 - 393 08/17/2016 [facility] CHEM PANEL Lipase Lvl 153 73 - 393 08/11/2016 [facility] CHEM PANEL eGFR 22 08/11/2016 Result Comment: The eGFR is calculated using the [...] from the National Kidney Disease Education Program (NKDEP) which additionally recommends that when the eGFR is used in patients with extremes of body mass index for purposes of drug dosing, the eGFR should be multiplied by the estimated BMI. [facility] CHEM PANEL CO2 20 24 - 32 08/11/2016 [facility] CHEM PANEL Potassium Lvl 5.5 3.5 - 5.1 08/11/2016 [facility] CHEM PANEL Chloride Lvl 112 95 - 109 08/11/2016 [facility] CHEM PANEL Calcium Lvl 7.8 8.5 - 10.5 08/11/2016 [facility] CHEM PANEL Sodium Lvl 141 135 - 145 08/11/2016 [facility] CHEM PANEL BUN 25 7 - 22 08/11/2016 [facility] CHEM PANEL Glucose Lvl 174 70 - 99 08/11/2016 [facility] CHEM PANEL Creatinine Lvl 2.88 0.50 - 1.40 08/11/2016 [facility] CHEM PANEL Bili Total 0.2 0.2 - 1.3 08/11/2016 [facility] CHEM PANEL Alk Phos 169 39 - 136 08/11/2016 [facility] CHEM PANEL AST 14 0 - 37 08/11/2016 [facility] CHEM PANEL ALT 12 0 - 65 08/11/2016 [facility] CHEM PANEL Albumin Lvl 1.5 3.5 - 5.0 08/11/2016 [facility] CHEM PANEL Total Protein 6.6 6.4 - 8.4 08/11/2016 [facility] CHEM PANEL AGAP 14.5 10.0 - 20.0 08/11/2016 [facility] CHEM PANEL B/C Ratio 9 6 - 25 08/11/2016 [facility] CHEM PANEL Globulin 5.1 2.7 - 4.2 08/11/2016 [facility] CHEM PANEL A/G Ratio 0.3 0.7 - 1.6 08/11/2016 [facility] CHEM PANEL Lactic Acid WB 0.7 0.5 - 2.2 08/11/2016 [facility] HEMATOLOGY Segs-Bands # 4.5 1.5 - 8.1 08/11/2016 [facility] HEMATOLOGY Lymphocytes # 2.7 1.0 - 5.5 08/11/2016 [facility] HEMATOLOGY Monocytes # 0.5 0.0 - 0.8 08/11/2016 [facility] HEMATOLOGY Eosinophils # 0.2 0.0 - 0.5 08/11/2016 [facility] HEMATOLOGY Basophils # 0.1 0.0 - 0.2 08/11/2016 [facility] HEMATOLOGY Eosinophils 2.2 0.0 - 4.0 08/11/2016 [facility] HEMATOLOGY Lymphocytes 33.4 20.0 - 40.0 08/11/2016 [facility] HEMATOLOGY Segs 57.1 45.0 - 75.0 08/11/2016 [facility] HEMATOLOGY Monocytes 6.1 2.0 - 12.0 08/11/2016 [facility] HEMATOLOGY Basophils 1.2 0.0 - 1.0 08/11/2016 [facility] HEMATOLOGY Platelet 326 133 - 450 08/11/2016 [facility] HEMATOLOGY MPV 9.2 7.4 - 10.4 08/11/2016 [facility] HEMATOLOGY Hct 30.0 36.0 - 48.0 08/11/2016 [facility] HEMATOLOGY Hgb 9.7 12.0 - 16.0 08/11/2016 [facility] HEMATOLOGY MCV 89.3 80.0 - 98.0 08/11/2016 [facility] HEMATOLOGY MCHC 32.3 32.0 - 36.0 08/11/2016 [facility] HEMATOLOGY MCH 28.9 27.0 - 31.0 08/11/2016 [facility] HEMATOLOGY RDW 14.5 11.5 - 14.5 08/11/2016 [facility] HEMATOLOGY WBC 8.0 3.7 - 10.4 08/11/2016 [facility] HEMATOLOGY RBC 3.36 4.20 - 5.40 08/11/2016 [facility] URINE AND STOOL UA RBC 3-5 /HPF 0 - 2 08/11/2016 [facility] URINE AND STOOL UA Bacteria Occasional /HPF None Seen /HPF 08/11/2016 [facility] URINE AND STOOL UA WBC 0-2 /HPF None Seen /HPF 08/11/2016 [facility] URINE AND STOOL UA Sq Epi Rare /LPF Few /LPF 08/11/2016 [facility] URINE AND STOOL UA Leuk Est Negative (08/11/16 2:10 AM) Negative 08/11/2016 [facility] URINE AND STOOL UA Nitrite Negative (08/11/16 2:10 AM) Negative 08/11/2016 [facility] URINE AND STOOL UA Urobilinogen 0.2 0.1 - 1.0 08/11/2016 [facility] URINE AND STOOL UA Blood Small *ABN* (08/11/16 2:10 AM) Negative 08/11/2016 [facility] URINE AND STOOL UA Ketones Negative *NA* (08/11/16 2:10 AM) Negative 08/11/2016 [facility] URINE AND STOOL UA pH 7.0 5.0 - 8.0 08/11/2016 [facility] URINE AND STOOL UA Glucose 250 mg/dL Negative mg/dL 08/11/2016 [facility] URINE AND STOOL UA Bili Negative *NA* (08/11/16 2:10 AM) Negative 08/11/2016 [facility] URINE AND STOOL UA Protein >=300 mg/dL Negative mg/dL 08/11/2016 [facility] URINE AND STOOL UA Turbidity Clear (08/11/16 2:10 AM) Clear 08/11/2016 [facility] URINE AND STOOL UA Spec Grav 1.020 <=1.030 08/11/2016 [facility] URINE AND STOOL UA Color Yellow *NA* (08/11/16 2:10 AM) Yellow 08/11/2016 [facility] URINE AND STOOL UA RBC 3-5 /HPF 0 - 2 08/08/2016 [facility] URINE AND STOOL UA Sq Epi Moderate /LPF Few /LPF 08/08/2016 [facility] URINE AND STOOL UA WBC 3-5 /HPF None Seen /HPF 08/08/2016 [facility] URINE AND STOOL UA Bacteria Moderate /HPF None Seen /HPF 08/08/2016 [facility] URINE AND STOOL UA Ketones Negative *NA* (08/08/16 1:33 AM) Negative 08/08/2016 [facility] URINE AND STOOL UA Bili Negative *NA* (08/08/16 1:33 AM) Negative 08/08/2016 [facility] URINE AND STOOL UA Blood Small *ABN* (08/08/16 1:33 AM) Negative 08/08/2016 [facility] URINE AND STOOL UA Urobilinogen 0.2 0.1 - 1.0 08/08/2016 [facility] URINE AND STOOL UA Nitrite Negative (08/08/16 1:33 AM) Negative 08/08/2016 [facility] URINE AND STOOL UA Turbidity Slight Cloudy (08/08/16 1:33 AM) Clear 08/08/2016 [facility] URINE AND STOOL UA Color Yellow *NA* (08/08/16 1:33 AM) Yellow 08/08/2016 [facility] URINE AND STOOL UA pH 6.5 5.0 - 8.0 08/08/2016 [facility] URINE AND STOOL UA Spec Grav 1.020 <=1.030 08/08/2016 [facility] URINE AND STOOL UA Protein >=300 mg/dL Negative mg/dL 08/08/2016 [facility] URINE AND STOOL UA Glucose 250 mg/dL Negative mg/dL 08/08/2016 [facility] URINE AND STOOL UA Leuk Est Negative (08/08/16 1:33 AM) Negative 08/08/2016 [facility] CHEM PANEL Lipase Lvl 87 73 - 393 08/08/2016 [facility] ELECTROLYTES AGAP 12.9 10.0 - 20.0 08/08/2016 [facility] ELECTROLYTES B/C Ratio 8 6 - 25 08/08/2016 [facility] ELECTROLYTES A/G Ratio 0.3 0.7 - 1.6 08/08/2016 [facility] ELECTROLYTES Globulin 5.3 2.7 - 4.2 08/08/2016 [facility] ELECTROLYTES eGFR 24 08/08/2016 Result Comment: The eGFR is calculated using the [...] from the National Kidney Disease Education Program (NKDEP) which additionally recommends that when the eGFR is used in patients with extremes of body mass index for purposes of drug dosing, the eGFR should be multiplied by the estimated BMI. [facility] ELECTROLYTES CO2 19 24 - 32 08/08/2016 [facility] ELECTROLYTES Calcium Lvl 8.2 8.5 - 10.5 08/08/2016 [facility] ELECTROLYTES Potassium Lvl 4.9 3.5 - 5.1 08/08/2016 [facility] ELECTROLYTES Chloride Lvl 111 95 - 109 08/08/2016 [facility] ELECTROLYTES Sodium Lvl 138 135 - 145 08/08/2016 [facility] ELECTROLYTES BUN 22 7 - 22 08/08/2016 [facility] ELECTROLYTES Creatinine Lvl 2.6 9 0.50 - 1.40 08/08/2016 [facility] ELECTROLYTES Glucose Lvl 141 70 - 99 08/08/2016 [facility] ELECTROLYTES Bili Total 0.2 0.2 - 1.3 08/08/2016 [facility] ELECTROLYTES Albumin Lvl 1.6 3.5 - 5.0 08/08/2016 [facility] ELECTROLYTES Total Protein 6.9 6.4 - 8.4 08/08/2016 [facility] ELECTROLYTES Alk Phos 171 39 - 136 08/08/2016 [facility] ELECTROLYTES AST 6 0 - 37 08/08/2016 [facility] ELECTROLYTES ALT 11 0 - 65 08/08/2016 [facility] HEMATOLOGY Platelet 372 133 - 450 08/08/2016 [facility] HEMATOLOGY MPV 8.2 7.4 - 10.4 08/08/2016 [facility] HEMATOLOGY WBC 8.3 3.7 - 10.4 08/08/2016 [facility] HEMATOLOGY RBC 3.63 4.20 - 5.40 08/08/2016 [facility] HEMATOLOGY Hgb 10.5 12.0 - 16.0 08/08/2016 [facility] HEMATOLOGY MCH 29.0 27.0 - 31.0 08/08/2016 [facility] HEMATOLOGY Hct 31.7 36.0 - 48.0 08/08/2016 [facility] HEMATOLOGY RDW 14.3 11.5 - 14.5 08/08/2016 [facility] HEMATOLOGY MCHC 33.1 32.0 - 36.0 08/08/2016 [facility] HEMATOLOGY MCV 87.5 80.0 - 98.0 08/08/2016 [facility] HEMATOLOGY Segs 50.4 45.0 - 75.0 08/08/2016 [facility] HEMATOLOGY Lymphocytes 36.1 20.0 - 40.0 08/08/2016 [facility] HEMATOLOGY Monocytes 9.2 2.0 - 12.0 08/08/2016 [facility] HEMATOLOGY Eosinophils 3.3 0.0 - 4.0 08/08/2016 [facility] HEMATOLOGY Basophils 1.0 0.0 - 1.0 08/08/2016 [facility] HEMATOLOGY Segs-Bands # 4.2 1.5 - 8.1 08/08/2016 [facility] HEMATOLOGY Monocytes # 0.8 0.0 - 0.8 08/08/2016 [facility] HEMATOLOGY Basophils # 0.1 0.0 - 0.2 08/08/2016 [facility] HEMATOLOGY Lymphocytes # 3.0 1.0 - 5.5 08/08/2016 [facility] HEMATOLOGY Eosinophils # 0.3 0.0 - 0.5 08/08/2016 [facility] CHEM PANEL Lipase Lvl 117 73 - 393 08/06/2016 [facility] CHEM PANEL BUN 25 7 - 22 08/06/2016 [facility] CHEM PANEL Glucose Lvl 143 70 - 99 08/06/2016 [facility] CHEM PANEL Potassium Lvl 4.4 3.5 - 5.1 08/06/2016 [facility] CHEM PANEL Creatinine Lvl 2.92 0.50 - 1.40 08/06/2016 [facility] CHEM PANEL Sodium Lvl 140 135 - 145 08/06/2016 [facility] CHEM PANEL Chloride Lvl 112 95 - 109 08/06/2016 [facility] CHEM PANEL AGAP 13.4 10.0 - 20.0 08/06/2016 [facility] CHEM PANEL CO2 19 24 - 32 08/06/2016 [facility] CHEM PANEL Calcium Lvl 7.8 8.5 - 10.5 08/06/2016 [facility] [facility] CHEM PANEL eGFR 22 08/06/2016 Result Comment: The eGFR is calculated using the [...] from the National Kidney Disease Education Program (NKDEP) which additionally recommends that when the eGFR is used in patients with extremes of body mass index for purposes of drug dosing, the eGFR should be multiplied by the estimated BMI. [facility] CHEM PANEL Globulin 4.8 2.7 - 4.2 08/06/2016 [facility] CHEM PANEL A/G Ratio 0.3 0.7 - 1.6 08/06/2016 [facility] CHEM PANEL Bili Total 0.2 0.2 - 1.3 08/06/2016 [facility] CHEM PANEL Bili Direct 0.1 0.0 - 0.3 08/06/2016 [facility] CHEM PANEL Bili Indirect 0.1 0.0 - 1.0 08/06/2016 [facility] CHEM PANEL Alk Phos 166 39 - 136 08/06/2016 [facility] CHEM PANEL ALT 12 0 - 65 08/06/2016 [facility] CHEM PANEL AST 8 0 - 37 08/06/2016 [facility] CHEM PANEL Total Protein 6.3 6.4 - 8.4 08/06/2016 [facility] CHEM PANEL Albumin Lvl 1.5 3.5 - 5.0 08/06/2016 [facility] HEMATOLOGY Basophils 0.8 0.0 - 1.0 08/06/2016 [facility] HEMATOLOGY Segs-Bands # 4.0 1.5 - 8.1 08/06/2016 [facility] HEMATOLOGY Basophils # 0.1 0.0 - 0.2 08/06/2016 [facility] HEMATOLOGY Eosinophils # 0.2 0.0 - 0.5 08/06/2016 [facility] HEMATOLOGY Eosinophils 2.0 0.0 - 4.0 08/06/2016 [facility] HEMATOLOGY Lymphocytes # 3.2 1.0 - 5.5 08/06/2016 [facility] HEMATOLOGY Monocytes 7.7 2.0 - 12.0 08/06/2016 [facility] HEMATOLOGY Lymphocytes 39.7 20.0 - 40.0 08/06/2016 [facility] HEMATOLOGY Monocytes # 0.6 0.0 - 0.8 08/06/2016 [facility] HEMATOLOGY Segs 49.8 45.0 - 75.0 08/06/2016 [facility] HEMATOLOGY Platelet 370 133 - 450 08/06/2016 [facility] HEMATOLOGY RDW 14.2 11.5 - 14.5 08/06/2016 [facility] HEMATOLOGY MPV 8.0 7.4 - 10.4 08/06/2016 [facility] HEMATOLOGY Hgb 9.8 12.0 - 16.0 08/06/2016 [facility] HEMATOLOGY MCHC 33.2 32.0 - 36.0 08/06/2016 [facility] HEMATOLOGY MCV 87.5 80.0 - 98.0 08/06/2016 [facility] HEMATOLOGY Hct 29.6 36.0 - 48.0 08/06/2016 [facility] HEMATOLOGY MCH 29.1 27.0 - 31.0 08/06/2016 [facility] HEMATOLOGY RBC 3.39 4.20 - 5.40 08/06/2016 [facility] HEMATOLOGY WBC 7.9 3.7 - 10.4 08/06/2016 [facility] URINE AND STOOL UA Sq Epi Few /LPF Few /LPF 08/02/2016 [facility] URINE AND STOOL UA WBC 0-2 /HPF None Seen /HPF 08/02/2016 [facility] URINE AND STOOL UA RBC 5-8 08/02/2016 [facility] URINE AND STOOL UA Nitrite Negative (08/02/16 4:49 PM) Negative 08/02/2016 [facility] URINE AND STOOL UA Leuk Est Negative (08/02/16 4:49 PM) Negative 08/02/2016 [facility] URINE AND STOOL UA Urobilinogen 0.2 0.1 - 1.0 08/02/2016 [facility] URINE AND STOOL UA Blood Small *ABN* (08/02/16 4:49 PM) Negative 08/02/2016 [facility] URINE AND STOOL UA Bili Negative *NA* (08/02/16 4:49 PM) Negative 08/02/2016 [facility] URINE AND STOOL UA Ketones Negative *NA* (08/02/16 4:49 PM) Negative 08/02/2016 [facility] URINE AND STOOL UA Glucose 250 mg/dL Negative mg/dL 08/02/2016 [facility] URINE AND STOOL UA Protein >=300 mg/dL Negative mg/dL 08/02/2016 [facility] URINE AND STOOL UA pH 7.5 5.0 - 8.0 08/02/2016 [facility] URINE AND STOOL UA Mucus None Seen (08/02/16 4:49 PM) None Seen 08/02/2016 [facility] URINE AND STOOL UA Bacteria None Seen (08/02/16 4:49 PM) None Seen 08/02/2016 [facility] URINE AND STOOL UA Spec Grav 1.015 <=1.030 08/02/2016 [facility] URINE AND STOOL UA Color Yellow *NA* (08/02/16 4:49 PM) Yellow 08/02/2016 [facility] URINE AND STOOL UA Turbidity Clear (08/02/16 4:49 PM) Clear 08/02/2016 [facility] CHEM PANEL Lipase Lvl 110 73 - 393 08/02/2016 [facility] CHEM PANEL Lactic Acid Lvl 0.7 0.5 - 2.2 08/02/2016 [facility] CHEM PANEL eGFR 27 08/02/2016 Result Comment: The eGFR is calculated using the [...] from the National Kidney Disease Education Program (NKDEP) which additionally recommends that when the eGFR is used in patients with extremes of body mass index for purposes of drug dosing, the eGFR should be multiplied by the estimated BMI. [facility] CHEM PANEL BUN 30 7 - 22 08/02/2016 [facility] CHEM PANEL Glucose Lvl 172 70 - 99 08/02/2016 [facility] CHEM PANEL Calcium Lvl 8.5 8.5 - 10.5 08/02/2016 [facility] CHEM PANEL Chloride Lvl 111 95 - 109 08/02/2016 [facility] CHEM PANEL Potassium Lvl 4.9 3.5 - 5.1 08/02/2016 [facility] CHEM PANEL CO2 18 24 - 32 08/02/2016 [facility] CHEM PANEL Sodium Lvl 139 135 - 145 08/02/2016 [facility] CHEM PANEL Creatinine Lvl 2.50 0.50 - 1.40 08/02/2016 [facility] CHEM PANEL AGAP 14.9 10.0 - 20.0 08/02/2016 [facility] HEMATOLOGY Monocytes 4.8 2.0 - 12.0 08/02/2016 [facility] HEMATOLOGY Eosinophils 1.9 0.0 - 4.0 08/02/2016 [facility] HEMATOLOGY Segs 64.1 45.0 - 75.0 08/02/2016 [facility] HEMATOLOGY Lymphocytes 28.2 20.0 - 40.0 08/02/2016 [facility] HEMATOLOGY Basophils 1.0 0.0 - 1.0 08/02/2016 [facility] HEMATOLOGY Monocytes # 0.4 0.0 - 0.8 08/02/2016 [facility] HEMATOLOGY Basophils # 0.1 0.0 - 0.2 08/02/2016 [facility] HEMATOLOGY Eosinophils # 0.2 0.0 - 0.5 08/02/2016 [facility] HEMATOLOGY Lymphocytes # 2.2 1.0 - 5.5 08/02/2016 [facility] HEMATOLOGY Segs-Bands # 5.1 1.5 - 8.1 08/02/2016 [facility] HEMATOLOGY PTT 31.6 22.9 - 35.8 08/02/2016 [facility] HEMATOLOGY PT 12.3 12.0 - 14.7 08/02/2016 [facility] HEMATOLOGY INR 0.90 0.85 - 1.17 08/02/2016 [facility] HEMATOLOGY Platelet 476 133 - 450 08/02/2016 [facility] HEMATOLOGY RDW 14.4 11.5 - 14.5 08/02/2016 [facility] HEMATOLOGY MPV 8.4 7.4 - 10.4 08/02/2016 [facility] HEMATOLOGY MCHC 32.8 32.0 - 36.0 08/02/2016 [facility] HEMATOLOGY Hct 37.1 36.0 - 48.0 08/02/2016 [facility] HEMATOLOGY MCH 29.0 27.0 - 31.0 08/02/2016 [facility] HEMATOLOGY MCV 88.4 80.0 - 98.0 08/02/2016 [facility] HEMATOLOGY Hgb 12.2 12.0 - 16.0 08/02/2016 [facility] HEMATOLOGY RBC 4.20 4.20 - 5.40 08/02/2016 [facility] HEMATOLOGY WBC 7.9 3.7 - 10.4 08/02/2016 [facility] CHEM PANEL Bili Direct <0.05 mg/dL 0.0 - 0.3 08/02/2016 [facility] CHEM PANEL Bili Indirect See N ote 2 (08/02/16 3:42 PM) 0.0 - 1.0 08/02/2016 Result Comment: Efra i Indirect cannot be calculated due to low analyte value [facility] CHEM PANEL AST 7 0 - 37 08/02/2016 [facility] CHEM PANEL Alk Phos 151 39 - 136 08/02/2016 [facility] CHEM PANEL Bili Total 0.2 0.2 - 1.3 08/02/2016 [facility] CHEM PANEL Albumin Lvl 1.6 3.5 - 5.0 08/02/2016 [facility] CHEM PANEL Globulin 5.1 2.7 - 4.2 08/02/2016 [facility] CHEM PANEL A/G Ratio 0.3 0.7 - 1.6 08/02/2016 [facility] CHEM PANEL ALT 6 0 - 65 08/02/2016 [facility] CHEM PANEL Total Protein 6.7 6.4 - 8.4 08/02/2016 [facility] ENDOCRINOLOGY hCG Tot <1 .0 mIU/mL 08/02/2016 [facility] CHEM PANEL Lactic Acid WB 1.0 0.5 - 2.2 07/27/2016 [facility] CHEM PANEL Lipase Lvl 84 73 - 393 07/27/2016 [facility] CHEM PANEL Bili Indirect 0.1 0.0 - 1.0 07/27/2016 [facility] CHEM PANEL Bili Direct 0.0 0.0 - 0.3 07/27/2016 [facility] CHEM PANEL Albumin Lvl 1.7 3.5 - 5.0 07/27/2016 [facility] CHEM PANEL Total Protein 6.4 6.4 - 8.4 07/27/2016 [facility] CHEM PANEL AST 14 0 - 37 07/27/2016 [facility] CHEM PANEL ALT 14 0 - 65 07/27/2016 [facility] CHEM PANEL Bili Total 0.1 0.2 - 1.3 07/27/2016 [facility] CHEM PANEL Alk Phos 107 39 - 136 07/27/2016 [facility] CHEM PANEL Globulin 4.7 2.7 - 4.2 07/27/2016 [facility] CHEM PANEL A/G Ratio 0.4 0.7 - 1.6 07/27/2016 [facility] CHEM PANEL eGFR 27 07/27/2016 Result Comment: The eGFR is calculated using the [...] from the National Kidney Disease Education Program (NKDEP) which additionally recommends that when the eGFR is used in patients with extremes of body mass index for purposes of drug dosing, the eGFR should be multiplied by the estimated BMI. [facility] CHEM PANEL Creatinine Lvl 2.44 0.50 - 1.40 07/27/2016 [facility] CHEM PANEL BUN 20 7 - 22 07/27/2016 [facility] CHEM PANEL Glucose Lvl 176 70 - 99 07/27/2016 [facility] CHEM PANEL Calcium Lvl 8.3 8.5 - 10.5 07/27/2016 [facility] CHEM PANEL CO2 24 24 - 32 07/27/2016 [facility] CHEM PANEL Chloride Lvl 111 95 - 109 07/27/2016 [facility] CHEM PANEL Potassium Lvl 4.3 3.5 - 5.1 07/27/2016 [facility] CHEM PANEL Sodium Lvl 143 135 - 145 07/27/2016 [facility] CHEM PANEL AGAP 12.3 10.0 - 20.0 07/27/2016 [facility] HEMATOLOGY Lymphocytes 21.5 20.0 - 40.0 07/27/2016 [facility] HEMATOLOGY Segs 71.2 45.0 - 75.0 07/27/2016 [facility] HEMATOLOGY Basophils # 0.1 0.0 - 0.2 07/27/2016 [facility] HEMATOLOGY Eosinophils 1.1 0.0 - 4.0 07/27/2016 [facility] HEMATOLOGY Monocytes 5.0 2.0 - 12.0 07/27/2016 [facility] HEMATOLOGY Basophils 1.2 0.0 - 1.0 07/27/2016 [facility] HEMATOLOGY Segs-Bands # 5.4 1.5 - 8.1 07/27/2016 [facility] HEMATOLOGY Lymphocytes # 1.6 1.0 - 5.5 07/27/2016 [facility] HEMATOLOGY Eosinophils # 0.1 0.0 - 0.5 07/27/2016 [facility] HEMATOLOGY Monocytes # 0.4 0.0 - 0.8 07/27/2016 [facility] HEMATOLOGY RDW 14.2 11.5 - 14.5 07/27/2016 [facility] HEMATOLOGY Platelet 439 133 - 450 07/27/2016 [facility] HEMATOLOGY MPV 8.3 7.4 - 10.4 07/27/2016 [facility] HEMATOLOGY MCHC 33.1 32.0 - 36.0 07/27/2016 [facility] HEMATOLOGY WBC 7.5 3.7 - 10.4 07/27/2016 [facility] HEMATOLOGY RBC 3.30 4.20 - 5.40 07/27/2016 [facility] HEMATOLOGY MCV 87.3 80.0 - 98.0 07/27/2016 [facility] HEMATOLOGY MCH 28.8 27.0 - 31.0 07/27/2016 [facility] HEMATOLOGY Hgb 9.5 12.0 - 16.0 07/27/2016 [facility] HEMATOLOGY Hct 28.8 36.0 - 48.0 07/27/2016 [facility] URINE AND STOOL UA Blood Trace *ABN* (07/27/16 5:11 AM) Negative 07/27/2016 [facility] URINE AND STOOL UA Urobilinogen 0.2 0.1 - 1.0 07/27/2016 [facility] URINE AND STOOL UA Leuk Est Negative (07/27/16 5:11 AM) Negative 07/27/2016 [facility] URINE AND STOOL UA Nitrite Negative (07/27/16 5:11 AM) Negative 07/27/2016 [facility] URINE AND STOOL UA Sq Epi Moderate /LPF Few /LPF 07/27/2016 [facility] URINE AND STOOL UA WBC 6-10 /HPF None Seen /HPF 07/27/2016 [facility] URINE AND STOOL UA Ketones Negative *NA* (07/27/16 5:11 AM) Negative 07/27/2016 [facility] URINE AND STOOL UA Bili Negative *NA* (07/27/16 5:11 AM) Negative 07/27/2016 [facility] URINE AND STOOL UA RBC 6-10 /HPF 0 - 2 07/27/2016 [facility] URINE AND STOOL UA Bacteria Few /HPF None Seen /HPF 07/27/2016 [facility] URINE AND STOOL UA Turbidity Clear (07/27/16 5:11 AM) Clear 07/27/2016 [facility] URINE AND STOOL UA Spec Grav 1.020 <=1.030 07/27/2016 [facility] URINE AND STOOL UA pH 7.5 5.0 - 8.0 07/27/2016 [facility] URINE AND STOOL UA Protein >=300 mg/dL Negative mg/dL 07/27/2016 [facility] URINE AND STOOL UA Glucose 250 mg/dL Negative mg/dL 07/27/2016 [facility] URINE AND STOOL UA Color Yellow *NA* (07/27/16 5:11 AM) Yellow 07/27/2016 [facility] URINE CHEM U Preg Negat anitra (07/27/16 5:11 AM) Negative 07/27/2016 [facility] CHEM PANEL Lactic Acid WB 1.6 0.5 - 2.2 07/27/2016 [facility] CHEM PANEL eGFR 27 07/27/2016 Result Comment: The eGFR is calculated using the [...] from the National Kidney Disease Education Program (NKDEP) which additionally recommends that when the eGFR is used in patients with extremes of body mass index for purposes of drug dosing, the eGFR should be multiplied by the estimated BMI. [facility] CHEM PANEL Glucose Lvl 193 70 - 99 07/27/2016 [facility] CHEM PANEL BUN 23 7 - 22 07/27/2016 [facility] CHEM PANEL Calcium Lvl 8.7 8.5 - 10.5 07/27/2016 [facility] CHEM PANEL CO2 20 24 - 32 07/27/2016 [facility] CHEM PANEL Potassium Lvl 4.7 3.5 - 5.1 07/27/2016 [facility] CHEM PANEL Sodium Lvl 142 135 - 145 07/27/2016 [facility] CHEM PANEL Chloride Lvl 110 95 - 109 07/27/2016 [facility] CHEM PANEL Creatinine Lvl 2.49 0.50 - 1.40 07/27/2016 [facility] CHEM PANEL AGAP 16.7 10.0 - 20.0 07/27/2016 [facility] HEMATOLOGY MPV 7.9 7.4 - 10.4 07/27/2016 [facility] HEMATOLOGY MCHC 32.6 32.0 - 36.0 07/27/2016 [facility] HEMATOLOGY Platelet 424 133 - 450 07/27/2016 [facility] HEMATOLOGY RDW 14.1 11.5 - 14.5 07/27/2016 [facility] HEMATOLOGY WBC 7.5 3.7 - 10.4 07/27/2016 [facility] HEMATOLOGY Hgb 10.0 12.0 - 16.0 07/27/2016 [facility] HEMATOLOGY RBC 3.47 4.20 - 5.40 07/27/2016 [facility] HEMATOLOGY Hct 30.7 36.0 - 48.0 07/27/2016 [facility] HEMATOLOGY MCV 88.5 80.0 - 98.0 07/27/2016 [facility] HEMATOLOGY MCH 28.8 27.0 - 31.0 07/27/2016 [facility] HEMATOLOGY Eosinophils 0.7 0.0 - 4.0 07/27/2016 [facility] HEMATOLOGY Segs-Bands # 5.6 1.5 - 8.1 07/27/2016 [facility] HEMATOLOGY Basophils 1.3 0.0 - 1.0 07/27/2016 [facility] HEMATOLOGY Monocytes # 0.3 0.0 - 0.8 07/27/2016 [facility] HEMATOLOGY Lymphocytes # 1.5 1.0 - 5.5 07/27/2016 [facility] HEMATOLOGY Eosinophils # 0.1 0.0 - 0.5 07/27/2016 [facility] HEMATOLOGY Basophils # 0.1 0.0 - 0.2 07/27/2016 [facility] HEMATOLOGY Lymphocytes 19.5 20.0 - 40.0 07/27/2016 [facility] HEMATOLOGY Monocytes 4.2 2.0 - 12.0 07/27/2016 [facility] HEMATOLOGY Segs 74.3 45.0 - 75.0 07/27/2016 [facility] URINE AND STOOL UA Turbidity Clear (07/23/16 2:22 AM) Clear 07/23/2016 [facility] URINE AND STOOL UA Color Yellow *NA* (07/23/16 2:22 AM) Yellow 07/23/2016 [facility] URINE AND STOOL UA Leuk Est Negative (07/23/16 2:22 AM) Negative 07/23/2016 [facility] URINE AND STOOL UA Nitrite Negative (07/23/16 2:22 AM) Negative 07/23/2016 [facility] URINE AND STOOL UA Blood Small *ABN* (07/23/16 2:22 AM) Negative 07/23/2016 [facility] URINE AND STOOL UA Bili Negative *NA* (07/23/16 2:22 AM) Negative 07/23/2016 [facility] URINE AND STOOL UA Urobilinogen 0.2 0.1 - 1.0 07/23/2016 [facility] URINE AND STOOL UA Ketones Negative *NA* (07/23/16 2:22 AM) Negative 07/23/2016 [facility] URINE AND STOOL UA Glucose 250 mg/dL Negative mg/dL 07/23/2016 [facility] URINE AND STOOL UA pH 6.0 5.0 - 8.0 07/23/2016 [facility] URINE AND STOOL UA Spec Grav 1.020 <=1.030 07/23/2016 [facility] URINE AND STOOL UA Protein >=300 mg/dL Negative mg/dL 07/23/2016 [facility] URINE AND STOOL UA Sq Epi Moderate /LPF Few /LPF 07/23/2016 [facility] URINE AND STOOL UA Bacteria Moderate /HPF None Seen /HPF 07/23/2016 [facility] URINE AND STOOL UA RBC 3-5 /HPF 0 - 2 07/23/2016 [facility] URINE AND STOOL UA Mucus None Seen (07/23/16 2:22 AM) None Seen 07/23/2016 [facility] URINE AND STOOL UA WBC 6-10 /HPF None Seen /HPF 07/23/2016 [facility] CHEM PANEL Phosphorus 4.6 2.5 - 4.5 07/17/2016 [facility] CHEM PANEL Magnesium Lvl 1.7 1.8 - 2.4 07/17/2016 [facility] ELECTROLYTES AGAP 11.1 10.0 - 20.0 07/17/2016 [facility] ELECTROLYTES eGFR 27 07/17/2016 Result Comment: The eGFR is calculated using the [...] from the National Kidney Disease Education Program (NKDEP) which additionally recommends that when the eGFR is used in patients with extremes of body mass index for purposes of drug dosing, the eGFR should be multiplied by the estimated BMI. [facility] ELECTROLYTES BUN 19 7 - 22 07/17/2016 [facility] ELECTROLYTES Glucose Lvl 69 70 - 99 07/17/2016 [facility] ELECTROLYTES Sodium Lvl 141 135 - 145 07/17/2016 [facility] ELECTROLYTES Creatinine Lvl 2.4 5 0.50 - 1.40 07/17/2016 [facility] ELECTROLYTES CO2 25 24 - 32 07/17/2016 [facility] ELECTROLYTES Chloride Lvl 110 95 - 109 07/17/2016 [facility] ELECTROLYTES Potassium Lvl 5.1 3.5 - 5.1 07/17/2016 [facility] ELECTROLYTES Calcium Lvl 8.2 8.5 - 10.5 07/17/2016 [facility] HEMATOLOGY Basophils 1.4 0.0 - 1.0 07/17/2016 [facility] HEMATOLOGY Segs-Bands # 2.9 1.5 - 8.1 07/17/2016 [facility] HEMATOLOGY Monocytes # 0.5 0.0 - 0.8 07/17/2016 [facility] HEMATOLOGY Lymphocytes 47.3 20.0 - 40.0 07/17/2016 [facility] HEMATOLOGY Eosinophils # 0.2 0.0 - 0.5 07/17/2016 [facility] HEMATOLOGY Basophils # 0.1 0.0 - 0.2 07/17/2016 [facility] HEMATOLOGY Lymphocytes # 3.3 1.0 - 5.5 07/17/2016 [facility] HEMATOLOGY Segs 41.9 45.0 - 75.0 07/17/2016 [facility] HEMATOLOGY Monocytes 6.7 2.0 - 12.0 07/17/2016 [facility] [facility] HEMATOLOGY Eosinophils 2.7 0.0 - 4.0 07/17/2016 [facility] HEMATOLOGY MCV 89.0 80.0 - 98.0 07/17/2016 [facility] HEMATOLOGY RDW 13.9 11.5 - 14.5 07/17/2016 [facility] HEMATOLOGY MCH 29.0 27.0 - 31.0 07/17/2016 [facility] HEMATOLOGY MCHC 32.6 32.0 - 36.0 07/17/2016 [facility] HEMATOLOGY MPV 7.9 7.4 - 10.4 07/17/2016 [facility] HEMATOLOGY Hct 26.8 36.0 - 48.0 07/17/2016 [facility] HEMATOLOGY Hgb 8.7 12.0 - 16.0 07/17/2016 [facility] HEMATOLOGY Platelet 377 133 - 450 07/17/2016 [facility] HEMATOLOGY WBC 6.9 3.7 - 10.4 07/17/2016 [facility] HEMATOLOGY RBC 3.01 4.20 - 5.40 07/17/2016 [facility] ELECTROLYTES AGAP 15.0 10.0 - 20.0 07/16/2016 [facility] ELECTROLYTES eGFR 28 07/16/2016 Result Comment: The eGFR is calculated using the [...] from the National Kidney Disease Education Program (NKDEP) which additionally recommends that when the eGFR is used in patients with extremes of body mass index for purposes of drug dosing, the eGFR should be multiplied by the estimated BMI. [facility] ELECTROLYTES Potassium Lvl 5.0 3.5 - 5.1 07/16/2016 [facility] ELECTROLYTES BUN 20 7 - 22 07/16/2016 [facility] ELECTROLYTES Creatinine Lvl 2.3 7 0.50 - 1.40 07/16/2016 [facility] ELECTROLYTES Sodium Lvl 145 135 - 145 07/16/2016 [facility] ELECTROLYTES CO2 23 24 - 32 07/16/2016 [facility] ELECTROLYTES Chloride Lvl 112 95 - 109 07/16/2016 [facility] ELECTROLYTES Calcium Lvl 8.2 8.5 - 10.5 07/16/2016 [facility] ELECTROLYTES Glucose Lvl 87 70 - 99 07/16/2016 [facility] CHEM PANEL Glucose Lvl 92 70 - 99 07/16/2016 [facility] CHEM PANEL Creatinine Lvl 2.39 0.50 - 1.40 07/16/2016 [facility] CHEM PANEL BUN 19 7 - 22 07/16/2016 [facility] CHEM PANEL Sodium Lvl 142 135 - 145 07/16/2016 [facility] CHEM PANEL eGFR 28 07/16/2016 Result Comment: The eGFR is calculated using the [...] from the National Kidney Disease Education Program (NKDEP) which additionally recommends that when the eGFR is used in patients with extremes of body mass index for purposes of drug dosing, the eGFR should be multiplied by the estimated BMI. [facility] CHEM PANEL Chloride Lvl 112 95 - 109 07/16/2016 [facility] CHEM PANEL CO2 21 24 - 32 07/16/2016 [facility] CHEM PANEL Potassium Lvl 5.8 3.5 - 5.1 07/16/2016 Result Comment: moderate hemolysis,07/16 07:09 [facility] CHEM PANEL AGAP 14.8 10.0 - 20.0 07/16/2016 [facility] CHEM PANEL Calcium Lvl 8.6 8.5 - 10.5 07/16/2016 [facility] CHEM PANEL Magnesium Lvl 1.9 1.8 - 2.4 07/16/2016 [facility] CHEM PANEL Phosphorus 4.4 2.5 - 4.5 07/16/2016 [facility] HEMATOLOGY Eosinophils # 0.3 0.0 - 0.5 07/16/2016 [facility] HEMATOLOGY Segs-Bands # 3.9 1.5 - 8.1 07/16/2016 [facility] HEMATOLOGY Lymphocytes # 3.3 1.0 - 5.5 07/16/2016 [facility] HEMATOLOGY Monocytes # 0.5 0.0 - 0.8 07/16/2016 [facility] HEMATOLOGY Basophils # 0.1 0.0 - 0.2 07/16/2016 [facility] HEMATOLOGY Segs 48.7 45.0 - 75.0 07/16/2016 [facility] HEMATOLOGY Lymphocytes 40.4 20.0 - 40.0 07/16/2016 [facility] HEMATOLOGY Monocytes 6.1 2.0 - 12.0 07/16/2016 [facility] HEMATOLOGY Eosinophils 3.8 0.0 - 4.0 07/16/2016 [facility] HEMATOLOGY Basophils 1.0 0.0 - 1.0 07/16/2016 [facility] HEMATOLOGY RBC 3.77 4.20 - 5.40 07/16/2016 [facility] HEMATOLOGY Hgb 10.8 12.0 - 16.0 07/16/2016 [facility] HEMATOLOGY WBC 8.1 3.7 - 10.4 07/16/2016 [facility] HEMATOLOGY Hct 33.8 36.0 - 48.0 07/16/2016 [facility] HEMATOLOGY MCV 89.6 80.0 - 98.0 07/16/2016 [facility] HEMATOLOGY MPV 8.8 7.4 - 10.4 07/16/2016 [facility] HEMATOLOGY MCHC 32.1 32.0 - 36.0 07/16/2016 [facility] HEMATOLOGY RDW 14.2 11.5 - 14.5 07/16/2016 [facility] HEMATOLOGY MCH 28.8 27.0 - 31.0 07/16/2016 [facility] HEMATOLOGY Platelet 420 133 - 450 07/16/2016 [facility] MOLECULAR DIAGNOSTIC Parainfluenza 1 PCR Negative (07/16/16 3:45 AM) Negative 07/16/2016 [facility] MOLECULAR DIAGNOSTIC Parainfluenza 2 PCR Negative (07/16/16 3:45 AM) Negative 07/16/2016 [facility] MOLECULAR DIAGNOSTIC Parainfluenza 3 PCR Negative (07/16/16 3:45 AM) Negative 07/16/2016 [facility] MOLECULAR DIAGNOSTIC Source Parainfl uenza Virus PCR [employer] Swab (07/16/16 3:45 AM) 07/16/2016 [facility] MOLECULAR DIAGNOSTIC Source Adenovir us PCR [employer] Swab (07/16/16 3:45 AM) 07/16/2016 [facility] MOLECULAR DIAGNOSTIC Adenovirus PCR Negative (07/16/16 3:45 AM) Negative 07/16/2016 [facility] MOLECULAR DIAGNOSTIC Influenza A PCR Negative (07/16/16 3:45 AM) Negative 07/16/2016 [facility] MOLECULAR DIAGNOSTIC Influenza B PCR Negative (07/16/16 3:45 AM) Negative 07/16/2016 [facility] MOLECULAR DIAGNOSTIC RSV PCR Negative (07/16/16 3:45 AM) Negative 07/16/2016 [facility] MOLECULAR DIAGNOSTIC Source Respirat ory Panel PCR [employer] Swab (07/16/16 3:45 AM) 07/16/2016 [facility] DRUG SCREEN U Phencyc Scr Nega tive *NA* (07/15/16 8:05 PM) Negative 07/16/2016 [facility] DRUG SCREEN UDS Note See Note (07/15/16 8:05 PM) 07/16/2016 [facility] DRUG SCREEN U Benzodia Scr Nega tive *NA* (07/15/16 8:05 PM) Negative 07/16/2016 [facility] DRUG SCREEN U Amph Scr Nega tive *NA* (07/15/16 8:05 PM) Negative 07/16/2016 [facility] DRUG SCREEN U Opiate Scr Posi tive *ABN* (07/15/16 8:05 PM) Negative 07/16/2016 [facility] DRUG SCREEN U Cocaine Scr Nega tive *NA* (07/15/16 8:05 PM) Negative 07/16/2016 [facility] DRUG SCREEN U Cannab Scr Nega tive *NA* (07/15/16 8:05 PM) Negative 07/16/2016 [facility] DRUG SCREEN U Esther Scr Nega tive *NA* (07/15/16 8:05 PM) Negative 07/16/2016 [facility] URINE AND STOOL UA Bacteria Few /HPF None Seen /HPF 07/16/2016 [facility] URINE AND STOOL UA Sq Epi Occasional /LPF Few /LPF 07/16/2016 [facility] URINE AND STOOL UA WBC 3-5 /HPF None Seen /HPF 07/16/2016 [facility] URINE AND STOOL UA RBC 3-5 /HPF 0 - 2 07/16/2016 [facility] URINE AND STOOL UA Leuk Est Negative (07/15/16 8:05 PM) Negative 07/16/2016 [facility] URINE AND STOOL UA Blood Small *ABN* (07/15/16 8:05 PM) Negative 07/16/2016 [facility] URINE AND STOOL UA Urobilinogen 0.2 0.1 - 1.0 07/16/2016 [facility] URINE AND STOOL UA Bili Negative *NA* (07/15/16 8:05 PM) Negative 07/16/2016 [facility] URINE AND STOOL UA Ketones Negative *NA* (07/15/16 8:05 PM) Negative 07/16/2016 [facility] URINE AND STOOL UA Spec Grav 1.020 <=1.030 07/16/2016 [facility] URINE AND STOOL UA Turbidity Clear (07/15/16 8:05 PM) Clear 07/16/2016 [facility] URINE AND STOOL UA Nitrite Negative (07/15/16 8:05 PM) Negative 07/16/2016 [facility] URINE AND STOOL UA Glucose 250 mg/dL Negative mg/dL 07/16/2016 [facility] URINE AND STOOL UA Protein >=300 mg/dL Negative mg/dL 07/16/2016 [facility] URINE AND STOOL UA Color Yellow *NA* (07/15/16 8:05 PM) Yellow 07/16/2016 [facility] URINE AND STOOL UA pH 7.0 5.0 - 8.0 07/16/2016 [facility] HEMATOLOGY D-Dimer 8.47 07/15/2016 [facility] CARDIAC ENZYMES Troponin-I <0.02 0.00 - 0.40 07/15/2016 [facility] CHEM PANEL Lactic Acid WB 0.9 0.5 - 2.2 07/15/2016 [facility] CHEM PANEL Magnesium Lvl 1.5 1.8 - 2.4 07/15/2016 [facility] CHEM PANEL Phosphorus 4.7 2.5 - 4.5 07/15/2016 [facility] HEMATOLOGY Monocytes # 0.4 0.0 - 0.8 07/15/2016 [facility] HEMATOLOGY Lymphocytes # 2.6 1.0 - 5.5 07/15/2016 [facility] HEMATOLOGY Eosinophils # 0.3 0.0 - 0.5 07/15/2016 [facility] HEMATOLOGY Basophils # 0.1 0.0 - 0.2 07/15/2016 [facility] HEMATOLOGY Segs 58.6 45.0 - 75.0 07/15/2016 [facility] HEMATOLOGY Lymphocytes 31.6 20.0 - 40.0 07/15/2016 [facility] HEMATOLOGY Basophils 1.5 0.0 - 1.0 07/15/2016 [facility] HEMATOLOGY Segs-Bands # 4.8 1.5 - 8.1 07/15/2016 [facility] HEMATOLOGY Monocytes 5.1 2.0 - 12.0 07/15/2016 [facility] HEMATOLOGY Eosinophils 3.2 0.0 - 4.0 07/15/2016 [facility] HEMATOLOGY RDW 14.3 11.5 - 14.5 07/15/2016 [facility] HEMATOLOGY Platelet 460 133 - 450 07/15/2016 [facility] HEMATOLOGY MPV 8.0 7.4 - 10.4 07/15/2016 [facility] HEMATOLOGY WBC 8.3 3.7 - 10.4 07/15/2016 [facility] HEMATOLOGY RBC 3.80 4.20 - 5.40 07/15/2016 [facility] HEMATOLOGY MCH 28.8 27.0 - 31.0 07/15/2016 [facility] HEMATOLOGY MCV 89.8 80.0 - 98.0 07/15/2016 [facility] HEMATOLOGY Hgb 10.9 12.0 - 16.0 07/15/2016 [facility] HEMATOLOGY Hct 34.1 36.0 - 48.0 07/15/2016 [facility] HEMATOLOGY MCHC 32.0 32.0 - 36.0 07/15/2016 [facility] CHEM PANEL Creatinine Lvl 2.48 0.50 - 1.40 07/07/2016 [facility] CHEM PANEL BUN 22 7 - 22 07/07/2016 [facility] CHEM PANEL Glucose Lvl 97 70 - 99 07/07/2016 [facility] CHEM PANEL Calcium Lvl 8.2 8.5 - 10.5 07/07/2016 [facility] CHEM PANEL AGAP 10.8 10.0 - 20.0 07/07/2016 [facility] CHEM PANEL CO2 27 24 - 32 07/07/2016 [facility] CHEM PANEL Sodium Lvl 142 135 - 145 07/07/2016 [facility] CHEM PANEL Chloride Lvl 109 95 - 109 07/07/2016 [facility] CHEM PANEL Potassium Lvl 4.8 3.5 - 5.1 07/07/2016 [facility] CHEM PANEL eGFR 27 07/07/2016 Result Comment: The eGFR is calculated using the [...] from the National Kidney Disease Education Program (NKDEP) which additionally recommends that when the eGFR is used in patients with extremes of body mass index for purposes of drug dosing, the eGFR should be multiplied by the estimated BMI. [facility] CHEM PANEL Magnesium Lvl 2.0 1.8 - 2.4 07/07/2016 [facility] CHEM PANEL Phosphorus 5.1 2.5 - 4.5 07/07/2016 [facility] ELECTROLYTES CO2 27 24 - 32 07/06/2016 [facility] ELECTROLYTES Calcium Lvl 8.4 8.5 - 10.5 07/06/2016 [facility] ELECTROLYTES AGAP 12.8 10.0 - 20.0 07/06/2016 [facility] ELECTROLYTES eGFR 27 07/06/2016 Result Comment: The eGFR is calculated using the [...] from the National Kidney Disease Education Program (NKDEP) which additionally recommends that when the eGFR is used in patients with extremes of body mass index for purposes of drug dosing, the eGFR should be multiplied by the estimated BMI. [facility] ELECTROLYTES BUN 21 7 - 22 07/06/2016 [facility] ELECTROLYTES Glucose Lvl 66 70 - 99 07/06/2016 [facility] ELECTROLYTES Chloride Lvl 109 95 - 109 07/06/2016 [facility] ELECTROLYTES Potassium Lvl 4.8 3.5 - 5.1 07/06/2016 [facility] ELECTROLYTES Creatinine Lvl 2.4 5 0.50 - 1.40 07/06/2016 [facility] ELECTROLYTES Sodium Lvl 144 135 - 145 07/06/2016 [facility] URINE CHEM U Creatinine 58.50 07/05/2016 [facility] URINE CHEM U Protein 934.6 07/05/2016 [facility] URINE CHEM U Prot/Creat 16.0 07/05/2016 [facility] CHEM PANEL Phosphorus 4.3 2.5 - 4.5 07/05/2016 [facility] CHEM PANEL Magnesium Lvl 1.8 1.8 - 2.4 07/05/2016 [facility] CHEM PANEL eGFR 25 07/05/2016 Result Comment: The eGFR is calculated using the [...] from the National Kidney Disease Education Program (NKDEP) which additionally recommends that when the eGFR is used in patients with extremes of body mass index for purposes of drug dosing, the eGFR should be multiplied by the estimated BMI. [facility] CHEM PANEL Sodium Lvl 138 135 - 145 07/05/2016 [facility] CHEM PANEL CO2 20 24 - 32 07/05/2016 [facility] CHEM PANEL Chloride Lvl 108 95 - 109 07/05/2016 [facility] CHEM PANEL Creatinine Lvl 2.64 0.50 - 1.40 07/05/2016 [facility] CHEM PANEL Potassium Lvl 5.5 3.5 - 5.1 07/05/2016 [facility] CHEM PANEL AGAP 15.5 10.0 - 20.0 07/05/2016 [facility] CHEM PANEL Calcium Lvl 8.4 8.5 - 10.5 07/05/2016 [facility] CHEM PANEL Glucose Lvl 84 70 - 99 07/05/2016 [facility] CHEM PANEL BUN 25 7 - 22 07/05/2016 [facility] HEMATOLOGY MPV 8.5 7.4 - 10.4 07/05/2016 [facility] HEMATOLOGY MCV 91.9 80.0 - 98.0 07/05/2016 [facility] HEMATOLOGY MCH 29.2 27.0 - 31.0 07/05/2016 [facility] HEMATOLOGY MCHC 31.8 32.0 - 36.0 07/05/2016 [facility] HEMATOLOGY RDW 14.5 11.5 - 14.5 07/05/2016 [facility] HEMATOLOGY Platelet 452 133 - 450 07/05/2016 [facility] HEMATOLOGY WBC 8.2 3.7 - 10.4 07/05/2016 [facility] HEMATOLOGY RBC 3.09 4.20 - 5.40 07/05/2016 [facility] HEMATOLOGY Hgb 9.0 12.0 - 16.0 07/05/2016 [facility] HEMATOLOGY Hct 28.4 36.0 - 48.0 07/05/2016 [facility] HEMATOLOGY Lymphocytes # 2.1 1.0 - 5.5 07/05/2016 [facility] HEMATOLOGY Eosinophils # 0.2 0.0 - 0.5 07/05/2016 [facility] HEMATOLOGY Monocytes # 0.6 0.0 - 0.8 07/05/2016 [facility] HEMATOLOGY Basophils # 0.1 0.0 - 0.2 07/05/2016 [facility] HEMATOLOGY Basophils 0.9 0.0 - 1.0 07/05/2016 [facility] HEMATOLOGY Eosinophils 2.6 0.0 - 4.0 07/05/2016 [facility] HEMATOLOGY Segs-Bands # 5.2 1.5 - 8.1 07/05/2016 [facility] HEMATOLOGY Lymphocytes 26.2 20.0 - 40.0 07/05/2016 [facility] HEMATOLOGY Monocytes 7.0 2.0 - 12.0 07/05/2016 [facility] HEMATOLOGY Segs 63.3 45.0 - 75.0 07/05/2016 [facility] ANEMIA STUDY Iron 74 30 - 160 07/05/2016 [facility] HEMATOLOGY Eosinophils # 0.3 0.0 - 0.5 07/04/2016 [facility] HEMATOLOGY Monocytes # 0.7 0.0 - 0.8 07/04/2016 [facility] HEMATOLOGY Monocytes 8.6 2.0 - 12.0 07/04/2016 [facility] HEMATOLOGY Lymphocytes 27.9 20.0 - 40.0 07/04/2016 [facility] HEMATOLOGY Segs 59.2 45.0 - 75.0 07/04/2016 [facility] HEMATOLOGY Segs-Bands # 5.0 1.5 - 8.1 07/04/2016 [facility] HEMATOLOGY Basophils 1.0 0.0 - 1.0 07/04/2016 [facility] HEMATOLOGY Lymphocytes # 2.3 1.0 - 5.5 07/04/2016 [facility] HEMATOLOGY Eosinophils 3.3 0.0 - 4.0 07/04/2016 [facility] HEMATOLOGY Basophils # 0.1 0.0 - 0.2 07/04/2016 [facility] HEMATOLOGY MPV 9.0 7.4 - 10.4 07/04/2016 [facility] HEMATOLOGY RBC 2.94 4.20 - 5.40 07/04/2016 [facility] HEMATOLOGY Hct 26.5 36.0 - 48.0 07/04/2016 [facility] HEMATOLOGY Hgb 8.6 12.0 - 16.0 07/04/2016 [facility] HEMATOLOGY MCH 29.1 27.0 - 31.0 07/04/2016 [facility] HEMATOLOGY MCV 90.1 80.0 - 98.0 07/04/2016 [facility] HEMATOLOGY MCHC 32.3 32.0 - 36.0 07/04/2016 [facility] HEMATOLOGY WBC 8.4 3.7 - 10.4 07/04/2016 [facility] HEMATOLOGY RDW 13.9 11.5 - 14.5 07/04/2016 [facility] HEMATOLOGY Platelet 391 133 - 450 07/04/2016 [facility] CHEM PANEL Bili Total 0.2 0.2 - 1.3 07/03/2016 [facility] CHEM PANEL Alk Phos 100 39 - 136 07/03/2016 [facility] CHEM PANEL Globulin 4.8 2.7 - 4.2 07/03/2016 [facility] CHEM PANEL Total Protein 6.2 6.4 - 8.4 07/03/2016 [facility] CHEM PANEL AST 12 0 - 37 07/03/2016 [facility] CHEM PANEL ALT <6 0 - 65 07/03/2016 [facility] CHEM PANEL A/G Ratio 0.3 0.7 - 1.6 07/03/2016 [facility] CHEM PANEL Albumin Lvl 1.4 3.5 - 5.0 07/03/2016 [facility] CHEM PANEL B/C Ratio 10 6 - 25 07/03/2016 [facility] CHEM PANEL Phosphorus 5.1 2.5 - 4.5 07/03/2016 [facility] CHEM PANEL Magnesium Lvl 1.8 1.8 - 2.4 07/03/2016 [facility] HEMATOLOGY MPV 8.3 7.4 - 10.4 07/03/2016 [facility] HEMATOLOGY RDW 14.5 11.5 - 14.5 07/03/2016 [facility] HEMATOLOGY Platelet 403 133 - 450 07/03/2016 [facility] HEMATOLOGY MCHC 31.2 32.0 - 36.0 07/03/2016 [facility] HEMATOLOGY Hct 25.8 36.0 - 48.0 07/03/2016 [facility] HEMATOLOGY Hgb 8.0 12.0 - 16.0 07/03/2016 [facility] HEMATOLOGY MCH 29.3 27.0 - 31.0 07/03/2016 [facility] HEMATOLOGY MCV 93.9 80.0 - 98.0 07/03/2016 [facility] HEMATOLOGY WBC 8.6 3.7 - 10.4 07/03/2016 [facility] HEMATOLOGY RBC 2.74 4.20 - 5.40 07/03/2016 [facility] HEMATOLOGY Eosinophils # 0.2 0.0 - 0.5 07/03/2016 [facility] HEMATOLOGY Eosinophils 2.6 0.0 - 4.0 07/03/2016 [facility] HEMATOLOGY Lymphocytes # 2.5 1.0 - 5.5 07/03/2016 [facility] HEMATOLOGY Segs-Bands # 5.1 1.5 - 8.1 07/03/2016 [facility] HEMATOLOGY Basophils # 0.1 0.0 - 0.2 07/03/2016 [facility] HEMATOLOGY Monocytes # 0.8 0.0 - 0.8 07/03/2016 [facility] HEMATOLOGY Lymphocytes 29.1 20.0 - 40.0 07/03/2016 [facility] HEMATOLOGY Basophils 0.7 0.0 - 1.0 07/03/2016 [facility] HEMATOLOGY Monocytes 9.1 2.0 - 12.0 07/03/2016 [facility] HEMATOLOGY Segs 58.5 45.0 - 75.0 07/03/2016 [facility] BLOOD BANK RESULTS Antibody Scrn Negative (07/02/16 9:24 PM) 07/03/2016 [facility] BLOOD BANK RESULTS ABO/Rh A POS 07/03/2016 [facility] BLOOD BANK RESULTS RBC product Product available (07/02/16 6:38 PM) 07/03/2016 [facility] URINE AND STOOL UA Color Yellow *NA* (07/02/16 5:58 AM) Yellow 07/02/2016 [facility] URINE AND STOOL UA Protein >=300 mg/dL Negative mg/dL 07/02/2016 [facility] URINE AND STOOL UA pH 6.5 5.0 - 8.0 07/02/2016 [facility] URINE AND STOOL UA Sq Epi None Seen 07/02/2016 [facility] URINE AND STOOL UA Ketones Negative mg/dL Negative mg/dL 07/02/2016 [facility] URINE AND STOOL UA Blood Moderate *ABN* (07/02/16 5:58 AM) Negative 07/02/2016 [facility] URINE AND STOOL UA Nitrite Negative (07/02/16 5:58 AM) Negative 07/02/2016 [facility] URINE AND STOOL UA RBC 125 0 - 2 07/02/2016 [facility] URINE AND STOOL UA Glucose Negative mg/dL Negative mg/dL 07/02/2016 [facility] URINE AND STOOL UA Spec Grav 1.009 <=1.030 07/02/2016 [facility] URINE AND STOOL UA Bili Negative *NA* (07/02/16 5:58 AM) Negative 07/02/2016 [facility] URINE AND STOOL UA Urobilinogen <=1.0 mg/dL 0.1 - 1.0 07/02/2016 [facility] URINE AND STOOL UA WBC 4 0 - 5 07/02/2016 [facility] URINE AND STOOL UA Leuk Est Trace *ABN* (07/02/16 5:58 AM) Negative 07/02/2016 [facility] URINE AND STOOL UA Bacteria Moderate /HPF None Seen /HPF 07/02/2016 [facility] URINE AND STOOL UA Amorph Tamera Few /HPF None Seen /HPF 07/02/2016 [facility] URINE AND STOOL UA Turbidity Slight *ABN* (07/02/16 5:58 AM) Clear 07/02/2016 [facility] URINE AND STOOL UA Sq Epi None Seen 07/02/2016 [facility] URINE AND STOOL UA Urobilinogen <=1.0 mg/dL 0.1 - 1.0 07/02/2016 [facility] URINE AND STOOL UA RBC 57 0 - 2 07/02/2016 [facility] URINE AND STOOL UA Bacteria Occasional /HPF None Seen /HPF 07/02/2016 [facility] URINE AND STOOL UA Leuk Est Negative (07/01/16 6:37 PM) Negative 07/02/2016 [facility] URINE AND STOOL UA WBC 3 0 - 5 07/02/2016 [facility] URINE AND STOOL UA Mucus Few /LPF None Seen /LPF 07/02/2016 [facility] URINE AND STOOL UA Nitrite Negative (07/01/16 6:37 PM) Negative 07/02/2016 [facility] URINE AND STOOL UA Blood Trace *ABN* (07/01/16 6:37 PM) Negative 07/02/2016 [facility] URINE AND STOOL UA Bili Negative *NA* (07/01/16 6:37 PM) Negative 07/02/2016 [facility] URINE AND STOOL UA pH 6.5 5.0 - 8.0 07/02/2016 [facility] URINE AND STOOL UA Protein >=300 mg/dL Negative mg/dL 07/02/2016 [facility] URINE AND STOOL UA Spec Grav 1.011 <=1.030 07/02/2016 [facility] URINE AND STOOL UA Glucose 30 mg/dL Negative mg/dL 07/02/2016 [facility] URINE AND STOOL UA Ketones Negative mg/dL Negative mg/dL 07/02/2016 [facility] URINE AND STOOL UA Turbidity Clear (07/01/16 6:37 PM) Clear 07/02/2016 [facility] URINE AND STOOL UA Color Yellow *NA* (07/01/16 6:37 PM) Yellow 07/02/2016 [facility] URINE CHEM U Creatinine 59.60 07/02/2016 [facility] URINE CHEM U Sodium 58 07/02/2016 [facility] HEMATOLOGY Rouleaux Prese nt *ABN* (07/01/16 6:17 AM) None Seen 07/01/2016 [facility] HEMATOLOGY Polychrom Moder ate *ABN* (07/01/16 6:17 AM) None Seen 07/01/2016 [facility] BLOOD BANK RESULTS RBC product Product available (06/30/16 12:01 AM) 06/30/2016 [facility] URINE CHEM U Preg Negat anitra (06/29/16 7:42 PM) Negative 06/30/2016 [facility] HEMATOLOGY Sed Rate >100 mm/hr 0 - 20 06/28/2016 [facility] IMMUNOLOGY C-REACTIVE PROTEIN 37.3 <=2.9 mg/L 06/28/2016 [facility] BLOOD BANK RESULTS Antibody Scrn Negative (06/28/16 12:34 AM) 06/28/2016 [facility] BLOOD BANK RESULTS ABO/Rh A POS 06/28/2016 [facility] CHEM PANEL Lactic Acid Lvl 0.9 0.5 - 2.2 06/28/2016 [facility] HEMATOLOGY INR 1.03 0.85 - 1.17 06/28/2016 [facility] HEMATOLOGY PT 13.7 12.0 - 14.7 06/28/2016 [facility] HEMATOLOGY PTT 31.4 22.9 - 35.8 06/28/2016 [facility] ELECTROLYTES AGAP 14.1 10.0 - 20.0 06/24/2016 [facility] ELECTROLYTES eGFR 22 06/24/2016 Result Comment: The eGFR is calculated using the [...] from the National Kidney Disease Education Program (NKDEP) which additionally recommends that when the eGFR is used in patients with extremes of body mass index for purposes of drug dosing, the eGFR should be multiplied by the estimated BMI. [facility] ELECTROLYTES Calcium Lvl 8.6 8.5 - 10.5 06/24/2016 [facility] ELECTROLYTES Creatinine Lvl 2.8 7 0.50 - 1.40 06/24/2016 [facility] ELECTROLYTES BUN 31 7 - 22 06/24/2016 [facility] ELECTROLYTES CO2 22 24 - 32 06/24/2016 [facility] ELECTROLYTES Glucose Lvl 111 70 - 99 06/24/2016 [facility] ELECTROLYTES Chloride Lvl 111 95 - 109 06/24/2016 [facility] ELECTROLYTES Potassium Lvl 5.1 3.5 - 5.1 06/24/2016 [facility] ELECTROLYTES Sodium Lvl 142 135 - 145 06/24/2016 [facility] BLOOD BANK RESULTS ABO/Rh A POS 06/23/2016 [facility] BLOOD BANK RESULTS Antibody Scrn Negative (06/23/16 3:50 AM) 06/23/2016 [facility] CHEM PANEL eGFR 24 06/23/2016 Result Comment: The eGFR is calculated using the [...] from the National Kidney Disease Education Program (NKDEP) which additionally recommends that when the eGFR is used in patients with extremes of body mass index for purposes of drug dosing, the eGFR should be multiplied by the estimated BMI. [facility] CHEM PANEL Chloride Lvl 111 95 - 109 06/23/2016 [facility] CHEM PANEL Potassium Lvl 4.7 3.5 - 5.1 06/23/2016 [facility] CHEM PANEL Calcium Lvl 8.5 8.5 - 10.5 06/23/2016 [facility] CHEM PANEL CO2 21 24 - 32 06/23/2016 [facility] CHEM PANEL BUN 27 7 - 22 06/23/2016 [facility] CHEM PANEL Glucose Lvl 119 70 - 99 06/23/2016 [facility] CHEM PANEL Sodium Lvl 141 135 - 145 06/23/2016 [facility] CHEM PANEL Creatinine Lvl 2.68 0.50 - 1.40 06/23/2016 [facility] CHEM PANEL AGAP 13.7 10.0 - 20.0 06/23/2016 [facility] HEMATOLOGY Eosinophils 5.4 0.0 - 4.0 06/23/2016 [facility] HEMATOLOGY Basophils 0.7 0.0 - 1.0 06/23/2016 [facility] HEMATOLOGY Monocytes 6.6 2.0 - 12.0 06/23/2016 [facility] HEMATOLOGY Segs 44.2 45.0 - 75.0 06/23/2016 [facility] HEMATOLOGY Lymphocytes 43.1 20.0 - 40.0 06/23/2016 [facility] HEMATOLOGY Lymphocytes # 2.6 1.0 - 5.5 06/23/2016 [facility] HEMATOLOGY Segs-Bands # 2.7 1.5 - 8.1 06/23/2016 [facility] HEMATOLOGY Eosinophils # 0.3 0.0 - 0.5 06/23/2016 [facility] HEMATOLOGY Monocytes # 0.4 0.0 - 0.8 06/23/2016 [facility] HEMATOLOGY INR 1.00 0.85 - 1.17 06/23/2016 [facility] HEMATOLOGY PT 13.4 12.0 - 14.7 06/23/2016 [facility] HEMATOLOGY PTT 39.9 22.9 - 35.8 06/23/2016 [facility] HEMATOLOGY PT 13.4 12.0 - 14.7 06/23/2016 [facility] HEMATOLOGY INR 1.00 0.85 - 1.17 06/23/2016 [facility] HEMATOLOGY WBC 6.1 3.7 - 10.4 06/23/2016 [facility] HEMATOLOGY Hgb 9.4 12.0 - 16.0 06/23/2016 [facility] HEMATOLOGY RBC 3.20 4.20 - 5.40 06/23/2016 [facility] HEMATOLOGY MCV 90.9 80.0 - 98.0 06/23/2016 [facility] HEMATOLOGY Hct 29.1 36.0 - 48.0 06/23/2016 [facility] HEMATOLOGY RDW 14.9 11.5 - 14.5 06/23/2016 [facility] HEMATOLOGY MCHC 32.4 32.0 - 36.0 06/23/2016 [facility] HEMATOLOGY MCH 29.4 27.0 - 31.0 06/23/2016 [facility] HEMATOLOGY MPV 8.9 7.4 - 10.4 06/23/2016 [facility] HEMATOLOGY Platelet 323 133 - 450 06/23/2016 [facility] URINE CHEM U Preg Negat anitra (06/23/16 3:50 AM) Negative 06/23/2016 [facility] HEMATOLOGY Sed Rate >100 mm/hr 0 - 20 06/22/2016 [facility] IMMUNOLOGY C-REACTIVE PROTEIN 16.7 <=2.9 mg/L 06/22/2016 [facility] CHEM PANEL Lactic Acid Lvl 1.0 0.5 - 2.2 06/22/2016 [facility] ELECTROLYTES AGAP 14.0 10.0 - 20.0 06/22/2016 [facility] ELECTROLYTES Calcium Lvl 8.0 8.5 - 10.5 06/22/2016 [facility] ELECTROLYTES CO2 22 24 - 32 06/22/2016 [facility] ELECTROLYTES eGFR 23 06/22/2016 Result Comment: The eGFR is calculated using the [...] from the National Kidney Disease Education Program (NKDEP) which additionally recommends that when the eGFR is used in patients with extremes of body mass index for purposes of drug dosing, the eGFR should be multiplied by the estimated BMI. [facility] ELECTROLYTES Glucose Lvl 265 70 - 99 06/22/2016 [facility] ELECTROLYTES Creatinine Lvl 2.8 3 0.50 - 1.40 06/22/2016 [facility] ELECTROLYTES Sodium Lvl 139 135 - 145 06/22/2016 [facility] ELECTROLYTES BUN 29 7 - 22 06/22/2016 [facility] ELECTROLYTES Chloride Lvl 108 95 - 109 06/22/2016 [facility] ELECTROLYTES Potassium Lvl 5.0 3.5 - 5.1 06/22/2016 [facility] HEMATOLOGY Lymphocytes 30.7 20.0 - 40.0 06/22/2016 [facility] HEMATOLOGY Segs 56.6 45.0 - 75.0 06/22/2016 [facility] HEMATOLOGY Basophils 1.1 0.0 - 1.0 06/22/2016 [facility] HEMATOLOGY Eosinophils 3.8 0.0 - 4.0 06/22/2016 [facility] HEMATOLOGY Monocytes 7.8 2.0 - 12.0 06/22/2016 [facility] HEMATOLOGY Basophils # 0.1 0.0 - 0.2 06/22/2016 [facility] HEMATOLOGY Segs-Bands # 4.3 1.5 - 8.1 06/22/2016 [facility] HEMATOLOGY Eosinophils # 0.3 0.0 - 0.5 06/22/2016 [facility] HEMATOLOGY Lymphocytes # 2.3 1.0 - 5.5 06/22/2016 [facility] HEMATOLOGY Monocytes # 0.6 0.0 - 0.8 06/22/2016 [facility] HEMATOLOGY PT 12.9 12.0 - 14.7 06/22/2016 [facility] HEMATOLOGY PTT 32.1 22.9 - 35.8 06/22/2016 [facility] HEMATOLOGY INR 0.95 0.85 - 1.17 06/22/2016 [facility] HEMATOLOGY WBC 7.6 3.7 - 10.4 06/22/2016 [facility] HEMATOLOGY Hgb 9.8 12.0 - 16.0 06/22/2016 [facility] HEMATOLOGY RBC 3.41 4.20 - 5.40 06/22/2016 [facility] HEMATOLOGY Platelet 323 133 - 450 06/22/2016 [facility] HEMATOLOGY RDW 15.4 11.5 - 14.5 06/22/2016 [facility] HEMATOLOGY MCHC 32.2 32.0 - 36.0 06/22/2016 [facility] HEMATOLOGY MCH 28.8 27.0 - 31.0 06/22/2016 [facility] HEMATOLOGY MPV 8.7 7.4 - 10.4 06/22/2016 [facility] HEMATOLOGY Hct 30.4 36.0 - 48.0 06/22/2016 [facility] HEMATOLOGY MCV 89.3 80.0 - 98.0 06/22/2016 [facility] CHEM PANEL Creatinine Lvl 2.26 0.50 - 1.40 06/14/2016 [facility] CHEM PANEL BUN 26 7 - 22 06/14/2016 [facility] CHEM PANEL Potassium Lvl 5.8 3.5 - 5.1 06/14/2016 [facility] CHEM PANEL Sodium Lvl 139 135 - 145 06/14/2016 [facility] CHEM PANEL CO2 20 24 - 32 06/14/2016 [facility] CHEM PANEL Chloride Lvl 111 95 - 109 06/14/2016 [facility] CHEM PANEL Calcium Lvl 8.0 8.5 - 10.5 06/14/2016 [facility] CHEM PANEL AGAP 13.8 10.0 - 20.0 06/14/2016 [facility] CHEM PANEL eGFR 30 06/14/2016 Result Comment: The eGFR is calculated using the [...] from the National Kidney Disease Education Program (NKDEP) which additionally recommends that when the eGFR is used in patients with extremes of body mass index for purposes of drug dosing, the eGFR should be multiplied by the estimated BMI. [facility] CHEM PANEL Glucose Lvl 88 70 - 99 06/14/2016 [facility] CHEM PANEL Magnesium Lvl 1.8 1.8 - 2.4 06/14/2016 [facility] CHEM PANEL Phosphorus 4.7 2.5 - 4.5 06/14/2016 [facility] CHEM PANEL Albumin Lvl 1.4 3.5 - 5.0 06/14/2016 [facility] CHEM PANEL Calcium Lvl 8.1 8.5 - 10.5 06/14/2016 [facility] CHEM PANEL Total Protein 5.9 6.4 - 8.4 06/14/2016 [facility] CHEM PANEL BUN 25 7 - 22 06/14/2016 [facility] CHEM PANEL Glucose Lvl 122 70 - 99 06/14/2016 [facility] CHEM PANEL Bili Total 0.1 0.2 - 1.3 06/14/2016 [facility] CHEM PANEL Alk Phos 115 39 - 136 06/14/2016 [facility] CHEM PANEL CO2 21 24 - 32 06/14/2016 [facility] CHEM PANEL Potassium Lvl 5.7 3.5 - 5.1 06/14/2016 [facility] CHEM PANEL Chloride Lvl 113 95 - 109 06/14/2016 [facility] CHEM PANEL Creatinine Lvl 2.15 0.50 - 1.40 06/14/2016 [facility] CHEM PANEL Sodium Lvl 140 135 - 145 06/14/2016 [facility] CHEM PANEL eGFR 32 06/14/2016 Result Comment: The eGFR is calculated using the [...] from the National Kidney Disease Education Program (NKDEP) which additionally recommends that when the eGFR is used in patients with extremes of body mass index for purposes of drug dosing, the eGFR should be multiplied by the estimated BMI. [facility] CHEM PANEL AST 16 0 - 37 06/14/2016 [facility] CHEM PANEL ALT 13 0 - 65 06/14/2016 [facility] CHEM PANEL AGAP 11.7 10.0 - 20.0 06/14/2016 [facility] CHEM PANEL A/G Ratio 0.3 0.7 - 1.6 06/14/2016 [facility] CHEM PANEL B/C Ratio 12 6 - 25 06/14/2016 [facility] CHEM PANEL Globulin 4.5 2.7 - 4.2 06/14/2016 [facility] HEMATOLOGY Sed Rate >100 0 - 20 06/14/2016 [facility] HEMATOLOGY PTT 24.6 22.9 - 35.8 06/14/2016 [facility] HEMATOLOGY PT 13.7 12.0 - 14.7 06/14/2016 [facility] HEMATOLOGY INR 1.03 0.85 - 1.17 06/14/2016 [facility] HEMATOLOGY Hgb 9.3 12.0 - 16.0 06/14/2016 [facility] HEMATOLOGY RBC 3.34 4.20 - 5.40 06/14/2016 [facility] HEMATOLOGY MCV 88.9 80.0 - 98.0 06/14/2016 [facility] HEMATOLOGY Hct 29.7 36.0 - 48.0 06/14/2016 [facility] HEMATOLOGY MCH 27.7 27.0 - 31.0 06/14/2016 [facility] HEMATOLOGY MCHC 31.1 32.0 - 36.0 06/14/2016 [facility] HEMATOLOGY Platelet 281 133 - 450 06/14/2016 [facility] HEMATOLOGY RDW 15.8 11.5 - 14.5 06/14/2016 [facility] HEMATOLOGY MPV 9.2 7.4 - 10.4 06/14/2016 [facility] HEMATOLOGY WBC 6.4 3.7 - 10.4 06/14/2016 [facility] HEMATOLOGY Eosinophils # 0.2 0.0 - 0.5 06/14/2016 [facility] HEMATOLOGY Basophils # 0.1 0.0 - 0.2 06/14/2016 [facility] HEMATOLOGY Segs-Bands # 2.9 1.5 - 8.1 06/14/2016 [facility] HEMATOLOGY Lymphocytes # 2.8 1.0 - 5.5 06/14/2016 [facility] HEMATOLOGY Monocytes # 0.4 0.0 - 0.8 06/14/2016 [facility] HEMATOLOGY Segs 44.8 45.0 - 75.0 06/14/2016 [facility] HEMATOLOGY Lymphocytes 44.1 20.0 - 40.0 06/14/2016 [facility] HEMATOLOGY Monocytes 6.4 2.0 - 12.0 06/14/2016 [facility] HEMATOLOGY Basophils 1.1 0.0 - 1.0 06/14/2016 [facility] HEMATOLOGY Eosinophils 3.6 0.0 - 4.0 06/14/2016 [facility] CHEM PANEL Lactic Acid Lvl 0.8 0.5 - 2.2 06/14/2016 [facility] IMMUNOLOGY C-REACTIVE PROTEIN 7.6 <=2.9 mg/L 06/14/2016 Result Comment: Specimen Moderately Hemo lyzed. [facility] SPECIAL CHEMISTRY Hgb A1C 6.4 <=5.6 % 06/14/2016 [facility] CARDIAC ENZYMES Troponin-I 0.02 0.00 - 0.40 06/13/2016 [facility] ELECTROLYTES AGAP 11.1 10.0 - 20.0 06/13/2016 [facility] ELECTROLYTES Sodium Lvl 142 135 - 145 06/13/2016 [facility] ELECTROLYTES Potassium Lvl 5.1 3.5 - 5.1 06/13/2016 [facility] ELECTROLYTES Chloride Lvl 112 95 - 109 06/13/2016 [facility] ELECTROLYTES Calcium Lvl 8.3 8.5 - 10.5 06/13/2016 [facility] ELECTROLYTES CO2 24 24 - 32 06/13/2016 [facility] ELECTROLYTES eGFR 35 06/13/2016 Result Comment: The eGFR is calculated using the [...] from the National Kidney Disease Education Program (NKDEP) which additionally recommends that when the eGFR is used in patients with extremes of body mass index for purposes of drug dosing, the eGFR should be multiplied by the estimated BMI. [facility] ELECTROLYTES Creatinine Lvl 2.0 0 0.50 - 1.40 06/13/2016 [facility] ELECTROLYTES BUN 23 7 - 22 06/13/2016 [facility] ELECTROLYTES Glucose Lvl 174 70 - 99 06/13/2016 [facility] CHEM PANEL Lipase Lvl 141 73 - 393 06/13/2016 [facility] CHEM PANEL Bili Direct 0.0 0.0 - 0.3 06/13/2016 [facility] CHEM PANEL Bili Indirect 0.1 0.0 - 1.0 06/13/2016 [facility] CHEM PANEL A/G Ratio 0.3 0.7 - 1.6 06/13/2016 [facility] CHEM PANEL Globulin 4.9 2.7 - 4.2 06/13/2016 [facility] CHEM PANEL Total Protein 6.4 6.4 - 8.4 06/13/2016 [facility] CHEM PANEL Alk Phos 133 39 - 136 06/13/2016 [facility] CHEM PANEL Albumin Lvl 1.5 3.5 - 5.0 06/13/2016 [facility] CHEM PANEL AST 20 0 - 37 06/13/2016 [facility] CHEM PANEL ALT 11 0 - 65 06/13/2016 [facility] CHEM PANEL Bili Total 0.1 0.2 - 1.3 06/13/2016 [facility] URINE AND STOOL UA Urobilinogen 0.2 0.1 - 1.0 06/13/2016 [facility] URINE AND STOOL UA Leuk Est Negative (06/13/16 8:56 AM) Negative 06/13/2016 [facility] URINE AND STOOL UA Ketones Negative *NA* (06/13/16 8:56 AM) Negative 06/13/2016 [facility] URINE AND STOOL UA Nitrite Negative (06/13/16 8:56 AM) Negative 06/13/2016 [facility] URINE AND STOOL UA Bili Negative *NA* (06/13/16 8:56 AM) Negative 06/13/2016 [facility] URINE AND STOOL UA Blood Moderate *ABN* (06/13/16 8:56 AM) Negative 06/13/2016 [facility] URINE AND STOOL UA Color Yellow *NA* (06/13/16 8:56 AM) Yellow 06/13/2016 [facility] URINE AND STOOL UA Glucose 250 mg/dL Negative mg/dL 06/13/2016 [facility] URINE AND STOOL UA Turbidity Clear (06/13/16 8:56 AM) Clear 06/13/2016 [facility] URINE AND STOOL UA Protein >=300 mg/dL Negative mg/dL 06/13/2016 [facility] URINE AND STOOL UA Spec Grav 1.020 <=1.030 06/13/2016 [facility] URINE AND STOOL UA pH 7.0 5.0 - 8.0 06/13/2016 [facility] URINE AND STOOL UA Sq Epi Few /LPF Few /LPF 06/13/2016 [facility] URINE AND STOOL UA WBC 0-2 /HPF None Seen /HPF 06/13/2016 [facility] URINE AND STOOL UA Bacteria Occasional /HPF None Seen /HPF 06/13/2016 [facility] URINE AND STOOL UA [place] Yeast Occasional /HPF None Seen /HPF 06/13/2016 [facility] URINE AND STOOL UA RBC 3-5 /HPF 0 - 2 06/13/2016 [facility] CHEM PANEL B/C Ratio 12 6 - 25 06/13/2016 [facility] CHEM PANEL Albumin Lvl 1.5 3.5 - 5.0 06/13/2016 [facility] CHEM PANEL ALT 12 0 - 65 06/13/2016 [facility] CHEM PANEL AST 15 0 - 37 06/13/2016 [facility] CHEM PANEL Bili Total 0.1 0.2 - 1.3 06/13/2016 [facility] CHEM PANEL Globulin 4.8 2.7 - 4.2 06/13/2016 [facility] CHEM PANEL A/G Ratio 0.3 0.7 - 1.6 06/13/2016 [facility] CHEM PANEL Alk Phos 133 39 - 136 06/13/2016 [facility] CHEM PANEL Total Protein 6.3 6.4 - 8.4 06/13/2016 [facility] HEMATOLOGY WBC 8.4 3.7 - 10.4 06/13/2016 [facility] HEMATOLOGY RBC 3.45 4.20 - 5.40 06/13/2016 [facility] HEMATOLOGY MCH 27.8 27.0 - 31.0 06/13/2016 [facility] HEMATOLOGY Hgb 9.6 12.0 - 16.0 06/13/2016 [facility] HEMATOLOGY MCHC 31.0 32.0 - 36.0 06/13/2016 [facility] HEMATOLOGY MCV 89.6 80.0 - 98.0 06/13/2016 [facility] HEMATOLOGY Hct 30.9 36.0 - 48.0 06/13/2016 [facility] HEMATOLOGY Platelet 302 133 - 450 06/13/2016 [facility] HEMATOLOGY RDW 15.6 11.5 - 14.5 06/13/2016 [facility] HEMATOLOGY MPV 8.9 7.4 - 10.4 06/13/2016 [facility] HEMATOLOGY Monocytes # 0.6 0.0 - 0.8 06/13/2016 [facility] HEMATOLOGY Basophils # 0.1 0.0 - 0.2 06/13/2016 [facility] HEMATOLOGY Eosinophils # 0.3 0.0 - 0.5 06/13/2016 [facility] HEMATOLOGY Segs 55.2 45.0 - 75.0 06/13/2016 [facility] HEMATOLOGY Monocytes 7.0 2.0 - 12.0 06/13/2016 [facility] HEMATOLOGY Lymphocytes 33.5 20.0 - 40.0 06/13/2016 [facility] HEMATOLOGY Eosinophils 3.0 0.0 - 4.0 06/13/2016 [facility] HEMATOLOGY Basophils 1.3 0.0 - 1.0 06/13/2016 [facility] HEMATOLOGY Lymphocytes # 2.8 1.0 - 5.5 06/13/2016 [facility] HEMATOLOGY Segs-Bands # 4.7 1.5 - 8.1 06/13/2016 [facility] URINE AND STOOL UA WBC 0-2 /HPF None Seen /HPF 05/30/2016 [facility] URINE AND STOOL UA Bacteria Moderate /HPF None Seen /HPF 05/30/2016 [facility] URINE AND STOOL UA Amorph Tamera Occasional /HPF None Seen /HPF 05/30/2016 [facility] URINE AND STOOL UA RBC 0-2 /HPF 0 - 2 05/30/2016 [facility] URINE AND STOOL UA Sq Epi Few /LPF Few /LPF 05/30/2016 [facility] URINE AND STOOL UA Leuk Est Negative (05/29/16 11:38 PM) Negative 05/30/2016 [facility] URINE AND STOOL UA Nitrite Negative (05/29/16 11:38 PM) Negative 05/30/2016 [facility] URINE AND STOOL UA Urobilinogen 0.2 0.1 - 1.0 05/30/2016 [facility] URINE AND STOOL UA Blood Trace *ABN* (05/29/16 11:38 PM) Negative 05/30/2016 [facility] URINE AND STOOL UA pH 6.0 5.0 - 8.0 05/30/2016 [facility] URINE AND STOOL UA Protein >=300 mg/dL Negative mg/dL 05/30/2016 [facility] URINE AND STOOL UA Glucose 100 mg/dL Negative mg/dL 05/30/2016 [facility] URINE AND STOOL UA Ketones Negative *NA* (05/29/16 11:38 PM) Negative 05/30/2016 [facility] URINE AND STOOL UA Bili Negative *NA* (05/29/16 11:38 PM) Negative 05/30/2016 [facility] URINE AND STOOL UA Turbidity Slight Cloudy (05/29/16 11:38 PM) Clear 05/30/2016 [facility] URINE AND STOOL UA Spec Grav 1.020 <=1.030 05/30/2016 [facility] URINE AND STOOL UA Color Yellow *NA* (05/29/16 11:38 PM) Yellow 05/30/2016 [facility] HEMATOLOGY Sed Rate >100 mm/hr 0 - 20 05/30/2016 [facility] IMMUNOLOGY C-REACTIVE PROTEIN 7.6 <=2.9 mg/L 05/30/2016 [facility] CARDIAC ENZYMES Troponin-I 0.02 0.00 - 0.40 05/30/2016 [facility] CARDIAC ENZYMES Total CK 131 12 - 191 05/30/2016 [facility] CHEM PANEL Bili Direct <0.05 mg/dL 0.0 - 0.3 05/30/2016 [facility] CHEM PANEL Bili Indirect See N ote 2 (05/29/16 7:31 PM) 0.0 - 1.0 05/30/2016 Result Comment: Efra i Indirect cannot be calculated due to low analyte value [facility] CHEM PANEL ALT 9 0 - 65 05/30/2016 [facility] CHEM PANEL AST 10 0 - 37 05/30/2016 [facility] CHEM PANEL Total Protein 6.0 6.4 - 8.4 05/30/2016 [facility] CHEM PANEL Albumin Lvl 1.5 3.5 - 5.0 05/30/2016 [facility] CHEM PANEL A/G Ratio 0.3 0.7 - 1.6 05/30/2016 [facility] CHEM PANEL Bili Total 0.2 0.2 - 1.3 05/30/2016 [facility] CHEM PANEL Globulin 4.5 2.7 - 4.2 05/30/2016 [facility] CHEM PANEL Alk Phos 118 39 - 136 05/30/2016 [facility] CHEM PANEL Lipase Lvl 89 73 - 393 05/30/2016 [facility] CHEM PANEL Lactic Acid WB 1.3 0.5 - 2.2 05/30/2016 [facility] CHEM PANEL eGFR 24 05/30/2016 Result Comment: The eGFR is calculated using the [...] from the National Kidney Disease Education Program (NKDEP) which additionally recommends that when the eGFR is used in patients with extremes of body mass index for purposes of drug dosing, the eGFR should be multiplied by the estimated BMI. [facility] CHEM PANEL Glucose Lvl 158 70 - 99 05/30/2016 [facility] CHEM PANEL BUN 26 7 - 22 05/30/2016 [facility] CHEM PANEL Creatinine Lvl 2.71 0.50 - 1.40 05/30/2016 [facility] CHEM PANEL Sodium Lvl 138 135 - 145 05/30/2016 [facility] CHEM PANEL CO2 20 24 - 32 05/30/2016 [facility] CHEM PANEL Potassium Lvl 4.9 3.5 - 5.1 05/30/2016 [facility] CHEM PANEL Chloride Lvl 107 95 - 109 05/30/2016 [facility] CHEM PANEL Calcium Lvl 7.9 8.5 - 10.5 05/30/2016 [facility] CHEM PANEL AGAP 15.9 10.0 - 20.0 05/30/2016 [facility] HEMATOLOGY Basophils # 0.1 0.0 - 0.2 05/30/2016 [facility] HEMATOLOGY Monocytes # 0.5 0.0 - 0.8 05/30/2016 [facility] HEMATOLOGY Lymphocytes # 2.7 1.0 - 5.5 05/30/2016 [facility] HEMATOLOGY Eosinophils # 0.2 0.0 - 0.5 05/30/2016 [facility] HEMATOLOGY Monocytes 6.5 2.0 - 12.0 05/30/2016 [facility] HEMATOLOGY Lymphocytes 38.2 20.0 - 40.0 05/30/2016 [facility] HEMATOLOGY Segs 52.0 45.0 - 75.0 05/30/2016 [facility] HEMATOLOGY Segs-Bands # 3.6 1.5 - 8.1 05/30/2016 [facility] HEMATOLOGY Eosinophils 2.2 0.0 - 4.0 05/30/2016 [facility] HEMATOLOGY Basophils 1.1 0.0 - 1.0 05/30/2016 [facility] HEMATOLOGY RDW 16.4 11.5 - 14.5 05/30/2016 [facility] HEMATOLOGY MPV 8.5 7.4 - 10.4 05/30/2016 [facility] HEMATOLOGY Platelet 325 133 - 450 05/30/2016 [facility] HEMATOLOGY MCH 28.3 27.0 - 31.0 05/30/2016 [facility] HEMATOLOGY MCV 87.8 80.0 - 98.0 05/30/2016 [facility] HEMATOLOGY MCHC 32.2 32.0 - 36.0 05/30/2016 [facility] HEMATOLOGY Hct 28.7 36.0 - 48.0 05/30/2016 [facility] HEMATOLOGY Hgb 9.2 12.0 - 16.0 05/30/2016 [facility] HEMATOLOGY WBC 7.0 3.7 - 10.4 05/30/2016 [facility] HEMATOLOGY RBC 3.27 4.20 - 5.40 05/30/2016 [facility] CARDIAC ENZYMES Troponin-I 0.02 0.00 - 0.40 05/27/2016 [facility] CHEM PANEL Glucose Lvl 198 70 - 99 05/27/2016 [facility] CHEM PANEL BUN 24 7 - 22 05/27/2016 [facility] CHEM PANEL Potassium Lvl 4.6 3.5 - 5.1 05/27/2016 [facility] CHEM PANEL CO2 17 24 - 32 05/27/2016 [facility] CHEM PANEL Chloride Lvl 107 95 - 109 05/27/2016 [facility] CHEM PANEL Sodium Lvl 136 135 - 145 05/27/2016 [facility] CHEM PANEL Creatinine Lvl 2.57 0.50 - 1.40 05/27/2016 [facility] CHEM PANEL Calcium Lvl 8.0 8.5 - 10.5 05/27/2016 [facility] CHEM PANEL eGFR 26 05/27/2016 Result Comment: The eGFR is calculated using the [...] from the National Kidney Disease Education Program (NKDEP) which additionally recommends that when the eGFR is used in patients with extremes of body mass index for purposes of drug dosing, the eGFR should be multiplied by the estimated BMI. [facility] CHEM PANEL AGAP 16.6 10.0 - 20.0 05/27/2016 [facility] HEMATOLOGY Eosinophils 2.6 0.0 - 4.0 05/27/2016 [facility] HEMATOLOGY Basophils 1.1 0.0 - 1.0 05/27/2016 [facility] HEMATOLOGY Lymphocytes 38.7 20.0 - 40.0 05/27/2016 [facility] HEMATOLOGY Monocytes 5.8 2.0 - 12.0 05/27/2016 [facility] HEMATOLOGY Segs 51.8 45.0 - 75.0 05/27/2016 [facility] HEMATOLOGY Eosinophils # 0.2 0.0 - 0.5 05/27/2016 [facility] HEMATOLOGY Basophils # 0.1 0.0 - 0.2 05/27/2016 [facility] HEMATOLOGY Monocytes # 0.5 0.0 - 0.8 05/27/2016 [facility] HEMATOLOGY Lymphocytes # 3.0 1.0 - 5.5 05/27/2016 [facility] HEMATOLOGY Segs-Bands # 4.0 1.5 - 8.1 05/27/2016 [facility] HEMATOLOGY Platelet 337 133 - 450 05/27/2016 [facility] HEMATOLOGY MPV 8.0 7.4 - 10.4 05/27/2016 [facility] HEMATOLOGY Hct 29.5 36.0 - 48.0 05/27/2016 [facility] HEMATOLOGY Hgb 9.6 12.0 - 16.0 05/27/2016 [facility] HEMATOLOGY MCV 86.2 80.0 - 98.0 05/27/2016 [facility] HEMATOLOGY RBC 3.42 4.20 - 5.40 05/27/2016 [facility] HEMATOLOGY WBC 7.8 3.7 - 10.4 05/27/2016 [facility] HEMATOLOGY MCHC 32.4 32.0 - 36.0 05/27/2016 [facility] HEMATOLOGY MCH 27.9 27.0 - 31.0 05/27/2016 [facility] HEMATOLOGY RDW 16.5 11.5 - 14.5 05/27/2016 [facility] CHEM PANEL eGFR 28 05/18/2016 Result Comment: The eGFR is calculated using the [...] from the National Kidney Disease Education Program (NKDEP) which additionally recommends that when the eGFR is used in patients with extremes of body mass index for purposes of drug dosing, the eGFR should be multiplied by the estimated BMI. [facility] CHEM PANEL Calcium Lvl 8.1 8.5 - 10.5 05/18/2016 [facility] CHEM PANEL CO2 20 24 - 32 05/18/2016 [facility] CHEM PANEL BUN 23 7 - 22 05/18/2016 [facility] CHEM PANEL Potassium Lvl 4.7 3.5 - 5.1 05/18/2016 [facility] CHEM PANEL Sodium Lvl 141 135 - 145 05/18/2016 [facility] CHEM PANEL Creatinine Lvl 2.40 0.50 - 1.40 05/18/2016 [facility] CHEM PANEL Glucose Lvl 126 70 - 99 05/18/2016 [facility] CHEM PANEL Chloride Lvl 112 95 - 109 05/18/2016 [facility] CHEM PANEL AGAP 13.7 10.0 - 20.0 05/18/2016 [facility] HEMATOLOGY MCHC 31.8 32.0 - 36.0 05/18/2016 [facility] HEMATOLOGY RDW 17.3 11.5 - 14.5 05/18/2016 [facility] HEMATOLOGY Platelet 335 133 - 450 05/18/2016 [facility] HEMATOLOGY MPV 8.0 7.4 - 10.4 05/18/2016 [facility] HEMATOLOGY MCH 27.8 27.0 - 31.0 05/18/2016 [facility] HEMATOLOGY WBC 5.5 3.7 - 10.4 05/18/2016 [facility] HEMATOLOGY RBC 3.79 4.20 - 5.40 05/18/2016 [facility] HEMATOLOGY Hgb 10.5 12.0 - 16.0 05/18/2016 [facility] HEMATOLOGY Hct 33.1 36.0 - 48.0 05/18/2016 [facility] HEMATOLOGY MCV 87.4 80.0 - 98.0 05/18/2016 [facility] HEMATOLOGY Lymphocytes 43.1 20.0 - 40.0 05/18/2016 [facility] HEMATOLOGY Monocytes 5.2 2.0 - 12.0 05/18/2016 [facility] HEMATOLOGY Eosinophils 3.2 0.0 - 4.0 05/18/2016 [facility] HEMATOLOGY Basophils 1.1 0.0 - 1.0 05/18/2016 [facility] HEMATOLOGY Segs 47.4 45.0 - 75.0 05/18/2016 [facility] HEMATOLOGY Segs-Bands # 2.6 1.5 - 8.1 05/18/2016 [facility] HEMATOLOGY Lymphocytes # 2.4 1.0 - 5.5 05/18/2016 [facility] HEMATOLOGY Monocytes # 0.3 0.0 - 0.8 05/18/2016 [facility] HEMATOLOGY Eosinophils # 0.2 0.0 - 0.5 05/18/2016 [facility] HEMATOLOGY Basophils # 0.1 0.0 - 0.2 05/18/2016 [facility] HEMATOLOGY PTT 75.0 22.9 - 35.8 05/17/2016 [facility] CARDIAC ENZYMES Troponin-I 0.04 0.00 - 0.40 05/17/2016 [facility] CARDIAC ENZYMES BNP 1203 <=100 pg/mL 05/17/2016 [facility] CHEM PANEL Lactic Acid WB 1.3 0.5 - 2.2 05/17/2016 [facility] CHEM PANEL Phosphorus 4.0 2.5 - 4.5 05/17/2016 [facility] CHEM PANEL Magnesium Lvl 1.6 1.8 - 2.4 05/17/2016 [facility] CHEM PANEL Lipase Lvl 140 73 - 393 05/17/2016 [facility] ELECTROLYTES AGAP 17.3 10.0 - 20.0 05/17/2016 [facility] ELECTROLYTES B/C Ratio 9 6 - 25 05/17/2016 [facility] ELECTROLYTES Globulin 4.8 2.7 - 4.2 05/17/2016 [facility] ELECTROLYTES A/G Ratio 0.2 0.7 - 1.6 05/17/2016 [facility] ELECTROLYTES Bili Total 0.1 0.2 - 1.3 05/17/2016 [facility] ELECTROLYTES ALANINE AMINOTRANSFERAS E 6 0 - 65 05/17/2016 [facility] ELECTROLYTES CO2 18 24 - 32 05/17/2016 [facility] ELECTROLYTES Calcium Lvl 8.1 8.5 - 10.5 05/17/2016 [facility] ELECTROLYTES Chloride Lvl 111 95 - 109 05/17/2016 [facility] ELECTROLYTES eGFR 33 05/17/2016 Result Comment: The eGFR is calculated using the [...] from the National Kidney Disease Education Program (NKDEP) which additionally recommends that when the eGFR is used in patients with extremes of body mass index for purposes of drug dosing, the eGFR should be multiplied by the estimated BMI. [facility] ELECTROLYTES Creatinine Lvl 2.0 9 0.50 - 1.40 05/17/2016 [facility] ELECTROLYTES Potassium Lvl 4.3 3.5 - 5.1 05/17/2016 [facility] ELECTROLYTES Sodium Lvl 142 135 - 145 05/17/2016 [facility] ELECTROLYTES BUN 19 7 - 22 05/17/2016 [facility] ELECTROLYTES Glucose Lvl 215 70 - 99 05/17/2016 [facility] ELECTROLYTES Alk Phos 136 39 - 136 05/17/2016 [facility] ELECTROLYTES Albumin Lvl 1.2 3.5 - 5.0 05/17/2016 [facility] ELECTROLYTES AST 8 0 - 37 05/17/2016 [facility] ELECTROLYTES Total Protein 6.0 6.4 - 8.4 05/17/2016 [facility] HEMATOLOGY PT 12.5 12.0 - 14.7 05/17/2016 [facility] HEMATOLOGY INR 0.91 0.85 - 1.17 05/17/2016 [facility] HEMATOLOGY PTT 27.8 22.9 - 35.8 05/17/2016 [facility] HEMATOLOGY RDW 16.8 11.5 - 14.5 05/17/2016 [facility] HEMATOLOGY MCHC 32.5 32.0 - 36.0 05/17/2016 [facility] HEMATOLOGY MCH 27.8 27.0 - 31.0 05/17/2016 [facility] HEMATOLOGY Platelet 389 133 - 450 05/17/2016 [facility] HEMATOLOGY MPV 7.8 7.4 - 10.4 05/17/2016 [facility] HEMATOLOGY MCV 85.5 80.0 - 98.0 05/17/2016 [facility] HEMATOLOGY RBC 3.61 4.20 - 5.40 05/17/2016 [facility] HEMATOLOGY WBC 7.9 3.7 - 10.4 05/17/2016 [facility] HEMATOLOGY Hct 30.9 36.0 - 48.0 05/17/2016 [facility] HEMATOLOGY Hgb 10.0 12.0 - 16.0 05/17/2016 [facility] HEMATOLOGY Monocytes # 0.5 0.0 - 0.8 05/17/2016 [facility] HEMATOLOGY Eosinophils # 0.2 0.0 - 0.5 05/17/2016 [facility] HEMATOLOGY Lymphocytes # 2.8 1.0 - 5.5 05/17/2016 [facility] HEMATOLOGY Basophils # 0.1 0.0 - 0.2 05/17/2016 [facility] HEMATOLOGY Basophils 1.2 0.0 - 1.0 05/17/2016 [facility] HEMATOLOGY Segs-Bands # 4.3 1.5 - 8.1 05/17/2016 [facility] HEMATOLOGY Segs 54.3 45.0 - 75.0 05/17/2016 [facility] HEMATOLOGY Lymphocytes 36.0 20.0 - 40.0 05/17/2016 [facility] HEMATOLOGY Monocytes 6.0 2.0 - 12.0 05/17/2016 [facility] HEMATOLOGY Eosinophils 2.5 0.0 - 4.0 05/17/2016 [facility] HEMATOLOGY D-Dimer 5.68 05/17/2016 [facility] URINE AND STOOL UA Bili Negative *NA* (04/19/16 11:02 AM) Negative 04/19/2016 [facility] URINE AND STOOL UA Ketones Negative *NA* (04/19/16 11:02 AM) Negative 04/19/2016 [facility] URINE AND STOOL UA Nitrite Negative (04/19/16 11:02 AM) Negative 04/19/2016 [facility] URINE AND STOOL UA Urobilinogen 0.2 0.1 - 1.0 04/19/2016 [facility] URINE AND STOOL UA Blood Moderate *ABN* (04/19/16 11:02 AM) Negative 04/19/2016 [facility] URINE AND STOOL UA Leuk Est Negative (04/19/16 11:02 AM) Negative 04/19/2016 [facility] URINE AND STOOL UA Glucose 500 mg/dL Negative mg/dL 04/19/2016 [facility] URINE AND STOOL UA Protein >=300 mg/dL Negative mg/dL 04/19/2016 [facility] URINE AND STOOL UA pH 7.0 5.0 - 8.0 04/19/2016 [facility] URINE AND STOOL UA Spec Grav 1.020 <=1.030 04/19/2016 [facility] URINE AND STOOL UA Turbidity Clear (04/19/16 11:02 AM) Clear 04/19/2016 [facility] URINE AND STOOL UA Color Yellow *NA* (04/19/16 11:02 AM) Yellow 04/19/2016 [facility] URINE AND STOOL UA [place] Yeast rare 04/19/2016 [facility] URINE AND STOOL UA Sq Epi Few /LPF Few /LPF 04/19/2016 [facility] URINE AND STOOL UA WBC 3-5 /HPF None Seen /HPF 04/19/2016 [facility] URINE AND STOOL UA Bacteria rare 04/19/2016 [facility] URINE AND STOOL UA RBC 6-10 /HPF 0 - 2 04/19/2016 [facility] CARDIAC ENZYMES Troponin-I <0.02 0.00 - 0.40 04/19/2016 [facility] CHEM PANEL A/G Ratio 0.2 0.7 - 1.6 04/19/2016 [facility] CHEM PANEL Globulin 6.6 2.7 - 4.2 04/19/2016 [facility] CHEM PANEL Alk Phos 187 39 - 136 04/19/2016 [facility] CHEM PANEL Bili Total 0.5 0.2 - 1.3 04/19/2016 [facility] CHEM PANEL Total Protein 8.0 6.4 - 8.4 04/19/2016 [facility] CHEM PANEL ALT 15 0 - 65 04/19/2016 [facility] CHEM PANEL AST 44 0 - 37 04/19/2016 [facility] CHEM PANEL Albumin Lvl 1.4 3.5 - 5.0 04/19/2016 [facility] CHEM PANEL Bili Indirect 0.4 0.0 - 1.0 04/19/2016 [facility] CHEM PANEL Bili Direct 0.1 0.0 - 0.3 04/19/2016 [facility] CHEM PANEL eGFR 28 04/19/2016 Result Comment: The eGFR is calculated using the [...] from the National Kidney Disease Education Program (NKDEP) which additionally recommends that when the eGFR is used in patients with extremes of body mass index for purposes of drug dosing, the eGFR should be multiplied by the estimated BMI. [facility] CHEM PANEL Sodium Lvl 139 135 - 145 04/19/2016 [facility] CHEM PANEL Creatinine Lvl 2.42 0.50 - 1.40 04/19/2016 [facility] CHEM PANEL BUN 14 7 - 22 04/19/2016 [facility] CHEM PANEL Glucose Lvl 172 70 - 99 04/19/2016 [facility] CHEM PANEL Calcium Lvl 7.8 8.5 - 10.5 04/19/2016 [facility] CHEM PANEL Chloride Lvl 105 95 - 109 04/19/2016 [facility] CHEM PANEL CO2 22 24 - 32 04/19/2016 [facility] CHEM PANEL Potassium Lvl 4.6 3.5 - 5.1 04/19/2016 Result Comment: Specimen Slightly Hemolyzed. [facility] CHEM PANEL AGAP 16.6 10.0 - 20.0 04/19/2016 [facility] CHEM PANEL Magnesium Lvl 1.6 1.8 - 2.4 04/19/2016 [facility] CHEM PANEL Lipase Lvl 132 73 - 393 04/19/2016 [facility] CHEM PANEL Phosphorus 4.4 2.5 - 4.5 04/19/2016 [facility] CHEM PANEL Lactic Acid WB 0.9 0.5 - 2.2 04/19/2016 [facility] HEMATOLOGY MCV 82.8 80.0 - 98.0 04/19/2016 [facility] HEMATOLOGY Hgb 9.8 12.0 - 16.0 04/19/2016 [facility] HEMATOLOGY Hct 29.4 36.0 - 48.0 04/19/2016 [facility] HEMATOLOGY MCH 27.7 27.0 - 31.0 04/19/2016 [facility] HEMATOLOGY RDW 17.1 11.5 - 14.5 04/19/2016 [facility] HEMATOLOGY Platelet 556 133 - 450 04/19/2016 [facility] HEMATOLOGY MCHC 33.4 32.0 - 36.0 04/19/2016 [facility] HEMATOLOGY MPV 8.2 7.4 - 10.4 04/19/2016 [facility] HEMATOLOGY RBC 3.55 4.20 - 5.40 04/19/2016 [facility] HEMATOLOGY WBC 9.0 3.7 - 10.4 04/19/2016 [facility] HEMATOLOGY Lymphocytes # 2.9 1.0 - 5.5 04/19/2016 [facility] HEMATOLOGY Basophils # 0.1 0.0 - 0.2 04/19/2016 [facility] HEMATOLOGY Eosinophils # 0.1 0.0 - 0.5 04/19/2016 [facility] HEMATOLOGY Monocytes # 0.6 0.0 - 0.8 04/19/2016 [facility] HEMATOLOGY Monocytes 6.8 2.0 - 12.0 04/19/2016 [facility] HEMATOLOGY Eosinophils 1.2 0.0 - 4.0 04/19/2016 [facility] HEMATOLOGY Segs 59.3 45.0 - 75.0 04/19/2016 [facility] HEMATOLOGY Basophils 0.7 0.0 - 1.0 04/19/2016 [facility] HEMATOLOGY Segs-Bands # 5.3 1.5 - 8.1 04/19/2016 [facility] HEMATOLOGY Lymphocytes 32.0 20.0 - 40.0 04/19/2016 [facility] ELECTROLYTES CO2 24 24 - 32 04/01/2016 [facility] ELECTROLYTES Calcium Lvl 7.5 8.5 - 10.5 04/01/2016 [facility] ELECTROLYTES eGFR 21 04/01/2016 Result Comment: The eGFR is calculated using the [...] from the National Kidney Disease Education Program (NKDEP) which additionally recommends that when the eGFR is used in patients with extremes of body mass index for purposes of drug dosing, the eGFR should be multiplied by the estimated BMI. [facility] ELECTROLYTES Potassium Lvl 4.6 3.5 - 5.1 04/01/2016 Result Comment: slight hemolysis [facility] ELECTROLYTES Chloride Lvl 107 95 - 109 04/01/2016 [facility] ELECTROLYTES Sodium Lvl 143 135 - 145 04/01/2016 [facility] ELECTROLYTES Creatinine Lvl 3.0 1 0.50 - 1.40 04/01/2016 [facility] ELECTROLYTES BUN 15 7 - 22 04/01/2016 [facility] ELECTROLYTES Glucose Lvl 63 70 - 99 04/01/2016 [facility] ELECTROLYTES AGAP 16.6 10.0 - 20.0 04/01/2016 [facility] HEMATOLOGY Lymphocytes # 3.1 1.0 - 5.5 04/01/2016 [facility] HEMATOLOGY Eosinophils # 0.1 0.0 - 0.5 04/01/2016 [facility] HEMATOLOGY Monocytes # 0.7 0.0 - 0.8 04/01/2016 [facility] HEMATOLOGY Segs-Bands # 3.4 1.5 - 8.1 04/01/2016 [facility] HEMATOLOGY Lymphocytes 42.0 20.0 - 40.0 04/01/2016 [facility] HEMATOLOGY Monocytes 9.2 2.0 - 12.0 04/01/2016 [facility] HEMATOLOGY Basophils 0.5 0.0 - 1.0 04/01/2016 [facility] HEMATOLOGY Eosinophils 1.4 0.0 - 4.0 04/01/2016 [facility] HEMATOLOGY Segs 46.9 45.0 - 75.0 04/01/2016 [facility] HEMATOLOGY MCHC 31.1 32.0 - 36.0 04/01/2016 [facility] HEMATOLOGY RDW 17.3 11.5 - 14.5 04/01/2016 [facility] HEMATOLOGY MPV 9.2 7.4 - 10.4 04/01/2016 [facility] HEMATOLOGY Platelet 360 133 - 450 04/01/2016 [facility] HEMATOLOGY RBC 2.98 4.20 - 5.40 04/01/2016 [facility] HEMATOLOGY WBC 7.3 3.7 - 10.4 04/01/2016 [facility] HEMATOLOGY Hgb 8.0 12.0 - 16.0 04/01/2016 [facility] HEMATOLOGY MCV 86.1 80.0 - 98.0 04/01/2016 [facility] HEMATOLOGY Hct 25.6 36.0 - 48.0 04/01/2016 [facility] HEMATOLOGY MCH 26.8 27.0 - 31.0 04/01/2016 [facility] ELECTROLYTES CO2 28 24 - 32 03/31/2016 [facility] ELECTROLYTES Calcium Lvl 7.6 8.5 - 10.5 03/31/2016 [facility] ELECTROLYTES eGFR 21 03/31/2016 Result Comment: The eGFR is calculated using the [...] from the National Kidney Disease Education Program (NKDEP) which additionally recommends that when the eGFR is used in patients with extremes of body mass index for purposes of drug dosing, the eGFR should be multiplied by the estimated BMI. [facility] ELECTROLYTES BUN 15 7 - 22 03/31/2016 [facility] ELECTROLYTES Creatinine Lvl 3.0 1 0.50 - 1.40 03/31/2016 [facility] ELECTROLYTES Potassium Lvl 3.7 3.5 - 5.1 03/31/2016 [facility] ELECTROLYTES Chloride Lvl 106 95 - 109 03/31/2016 [facility] ELECTROLYTES Sodium Lvl 142 135 - 145 03/31/2016 [facility] ELECTROLYTES Glucose Lvl 74 70 - 99 03/31/2016 [facility] ELECTROLYTES AGAP 11.7 10.0 - 20.0 03/31/2016 [facility] HEMATOLOGY Basophils # 0.1 0.0 - 0.2 03/31/2016 [facility] HEMATOLOGY Lymphocytes 38.9 20.0 - 40.0 03/31/2016 [facility] HEMATOLOGY Monocytes 9.6 2.0 - 12.0 03/31/2016 [facility] HEMATOLOGY Segs 48.7 45.0 - 75.0 03/31/2016 [facility] HEMATOLOGY Eosinophils 1.7 0.0 - 4.0 03/31/2016 [facility] HEMATOLOGY Basophils 1.1 0.0 - 1.0 03/31/2016 [facility] HEMATOLOGY Lymphocytes # 2.9 1.0 - 5.5 03/31/2016 [facility] HEMATOLOGY Segs-Bands # 3.6 1.5 - 8.1 03/31/2016 [facility] HEMATOLOGY Monocytes # 0.7 0.0 - 0.8 03/31/2016 [facility] HEMATOLOGY Eosinophils # 0.1 0.0 - 0.5 03/31/2016 [facility] HEMATOLOGY Platelet 407 133 - 450 03/31/2016 [facility] HEMATOLOGY RDW 17.4 11.5 - 14.5 03/31/2016 [facility] HEMATOLOGY MPV 7.9 7.4 - 10.4 03/31/2016 [facility] HEMATOLOGY MCH 26.3 27.0 - 31.0 03/31/2016 [facility] HEMATOLOGY MCV 84.5 80.0 - 98.0 03/31/2016 [facility] HEMATOLOGY MCHC 31.1 32.0 - 36.0 03/31/2016 [facility] HEMATOLOGY Hct 23.1 36.0 - 48.0 03/31/2016 [facility] HEMATOLOGY WBC 7.5 3.7 - 10.4 03/31/2016 [facility] HEMATOLOGY RBC 2.73 4.20 - 5.40 03/31/2016 [facility] HEMATOLOGY Hgb 7.2 12.0 - 16.0 03/31/2016 [facility] CHEM PANEL eGFR 21 03/30/2016 Result Comment: The eGFR is calculated using the [...] from the National Kidney Disease Education Program (NKDEP) which additionally recommends that when the eGFR is used in patients with extremes of body mass index for purposes of drug dosing, the eGFR should be multiplied by the estimated BMI. [facility] CHEM PANEL Sodium Lvl 144 135 - 145 03/30/2016 [facility] CHEM PANEL Potassium Lvl 3.7 3.5 - 5.1 03/30/2016 [facility] CHEM PANEL Chloride Lvl 108 95 - 109 03/30/2016 [facility] CHEM PANEL BUN 18 7 - 22 03/30/2016 [facility] CHEM PANEL Glucose Lvl 85 70 - 99 03/30/2016 [facility] CHEM PANEL Creatinine Lvl 3.03 0.50 - 1.40 03/30/2016 [facility] CHEM PANEL CO2 29 24 - 32 03/30/2016 [facility] CHEM PANEL Calcium Lvl 7.6 8.5 - 10.5 03/30/2016 [facility] CHEM PANEL AGAP 10.7 10.0 - 20.0 03/30/2016 [facility] HEMATOLOGY MPV 8.1 7.4 - 10.4 03/30/2016 [facility] HEMATOLOGY Platelet 388 133 - 450 03/30/2016 [facility] HEMATOLOGY MCH 26.4 27.0 - 31.0 03/30/2016 [facility] HEMATOLOGY MCV 83.7 80.0 - 98.0 03/30/2016 [facility] HEMATOLOGY MCHC 31.6 32.0 - 36.0 03/30/2016 [facility] HEMATOLOGY RDW 17.3 11.5 - 14.5 03/30/2016 [facility] HEMATOLOGY WBC 7.0 3.7 - 10.4 03/30/2016 [facility] HEMATOLOGY Hgb 7.4 12.0 - 16.0 03/30/2016 [facility] HEMATOLOGY RBC 2.80 4.20 - 5.40 03/30/2016 [facility] HEMATOLOGY Hct 23.4 36.0 - 48.0 03/30/2016 [facility] HEMATOLOGY Monocytes # 0.7 0.0 - 0.8 03/30/2016 [facility] HEMATOLOGY Lymphocytes # 2.5 1.0 - 5.5 03/30/2016 [facility] HEMATOLOGY Eosinophils # 0.1 0.0 - 0.5 03/30/2016 [facility] HEMATOLOGY Basophils # 0.1 0.0 - 0.2 03/30/2016 [facility] HEMATOLOGY Monocytes 9.7 2.0 - 12.0 03/30/2016 [facility] HEMATOLOGY Lymphocytes 35.3 20.0 - 40.0 03/30/2016 [facility] HEMATOLOGY Segs-Bands # 3.7 1.5 - 8.1 03/30/2016 [facility] HEMATOLOGY Basophils 1.1 0.0 - 1.0 03/30/2016 [facility] HEMATOLOGY Segs 52.3 45.0 - 75.0 03/30/2016 [facility] HEMATOLOGY Eosinophils 1.6 0.0 - 4.0 03/30/2016 [facility] HEMATOLOGY Basophils # 0.1 0.0 - 0.2 03/29/2016 [facility] VIRAL - SEROLOGY Influ B Negative (03/27/16 2:16 PM) Negative 03/27/2016 [facility] VIRAL - SEROLOGY Influ A Negative (03/27/16 2:16 PM) Negative 03/27/2016 [facility] MOLECULAR DIAGNOSTIC C difficile DNA Negative (03/27/16 11:24 AM) Negative 03/27/2016 [facility] URINE AND STOOL UA Nitrite Negative (03/27/16 10:06 AM) Negative 03/27/2016 [facility] URINE AND STOOL UA Blood Trace *ABN* (03/27/16 10:06 AM) Negative 03/27/2016 [facility] URINE AND STOOL UA Leuk Est Negative (03/27/16 10:06 AM) Negative 03/27/2016 [facility] URINE AND STOOL UA WBC 3 0 - 5 03/27/2016 [facility] URINE AND STOOL UA Sq Epi Occasional /LPF Few /LPF 03/27/2016 [facility] URINE AND STOOL UA Urobilinogen <=1.0 mg/dL 0.1 - 1.0 03/27/2016 [facility] URINE AND STOOL UA RBC 4 0 - 2 03/27/2016 [facility] URINE AND STOOL Micro? Performed *NA* (03/27/16 10:06 AM) 03/27/2016 [facility] URINE AND STOOL UA pH 8.0 5.0 - 8.0 03/27/2016 [facility] URINE AND STOOL UA Protein >=300 mg/dL Negative mg/dL 03/27/2016 [facility] URINE AND STOOL UA Color Yellow *NA* (03/27/16 10:06 AM) Yellow 03/27/2016 [facility] URINE AND STOOL UA Glucose 50 mg/dL Negative mg/dL 03/27/2016 [facility] URINE AND STOOL UA Ketones Negative mg/dL Negative mg/dL 03/27/2016 [facility] URINE AND STOOL UA Spec Grav 1.011 <=1.030 03/27/2016 [facility] URINE AND STOOL UA Bili Negative *NA* (03/27/16 10:06 AM) Negative 03/27/2016 [facility] URINE AND STOOL UA Turbidity Clear (03/27/16 10:06 AM) Clear 03/27/2016 [facility] HEMATOLOGY Anisocyte 1+ *ABN* (03/26/16 4:10 AM) None Seen 03/26/2016 [facility] HEMATOLOGY Plt Morph Rosina l (03/26/16 4:10 AM) 03/26/2016 [facility] HEMATOLOGY RBC Morph Rosina l (03/26/16 4:10 AM) 03/26/2016 [facility] HEMATOLOGY INR 1.08 0.85 - 1.17 03/22/2016 [facility] HEMATOLOGY PTT 41.0 22.9 - 35.8 03/22/2016 [facility] HEMATOLOGY PT 14.2 12.0 - 14.7 03/22/2016 [facility] PARATHYROID PROFILE Ca Ion WB 0.99 1.05 - 1.25 03/22/2016 [facility] PARATHYROID PROFILE Ca Norm WB 0.97 1.05 - 1.25 03/22/2016 [facility] HEMATOLOGY INR 1.11 0.85 - 1.17 03/21/2016 [facility] HEMATOLOGY PTT 37.6 22.9 - 35.8 03/21/2016 [facility] HEMATOLOGY PT 14.5 12.0 - 14.7 03/21/2016 [facility] BLOOD BANK RESULTS RBC product Product available (03/20/16 8:41 AM) 03/20/2016 [facility] BLOOD BANK RESULTS Antibody Scrn Negative (03/20/16 6:13 AM) 03/20/2016 [facility] BLOOD BANK RESULTS ABO/Rh A POS 03/20/2016 [facility] CHEM PANEL Total Protein 7.0 6.4 - 8.4 03/20/2016 [facility] CHEM PANEL ALT 11 0 - 65 03/20/2016 [facility] CHEM PANEL Albumin Lvl 1.1 3.5 - 5.0 03/20/2016 [facility] CHEM PANEL Alk Phos 212 39 - 136 03/20/2016 [facility] CHEM PANEL Bili Total 0.1 0.2 - 1.3 03/20/2016 [facility] CHEM PANEL AST 12 0 - 37 03/20/2016 [facility] CHEM PANEL B/C Ratio 8 6 - 25 03/20/2016 [facility] CHEM PANEL Globulin 5.9 2.7 - 4.2 03/20/2016 [facility] CHEM PANEL A/G Ratio 0.2 0.7 - 1.6 03/20/2016 [facility] TOXICOLOGY Vanco Lvl 28.8 03/19/2016 [facility] CHEM PANEL Albumin Lvl 1.0 3.5 - 5.0 03/18/2016 [facility] CHEM PANEL ALT 9 0 - 65 03/18/2016 [facility] CHEM PANEL AST 24 0 - 37 03/18/2016 [facility] CHEM PANEL Alk Phos 206 39 - 136 03/18/2016 [facility] CHEM PANEL Bili Total 0.1 0.2 - 1.3 03/18/2016 [facility] CHEM PANEL Total Protein 6.7 6.4 - 8.4 03/18/2016 [facility] CHEM PANEL B/C Ratio 8 6 - 25 03/18/2016 [facility] CHEM PANEL Globulin 5.7 2.7 - 4.2 03/18/2016 [facility] CHEM PANEL A/G Ratio 0.2 0.7 - 1.6 03/18/2016 [facility] TOXICOLOGY Vanco Tr TND 0500 03/18/2016 [facility] TOXICOLOGY Vanco Tr 9.7 03/18/2016 [facility] BLOOD BANK RESULTS RBC product Product available (03/17/16 4:38 AM) 03/17/2016 [facility] CHEM PANEL Globulin 5.7 2.7 - 4.2 03/17/2016 [facility] CHEM PANEL B/C Ratio 8 6 - 25 03/17/2016 [facility] CHEM PANEL A/G Ratio 0.2 0.7 - 1.6 03/17/2016 [facility] CHEM PANEL Albumin Lvl 0.9 3.5 - 5.0 03/17/2016 [facility] CHEM PANEL Total Protein 6.6 6.4 - 8.4 03/17/2016 [facility] CHEM PANEL AST 15 0 - 37 03/17/2016 [facility] CHEM PANEL ALT 8 0 - 65 03/17/2016 [facility] CHEM PANEL Alk Phos 168 39 - 136 03/17/2016 [facility] CHEM PANEL Bili Total 0.2 0.2 - 1.3 03/17/2016 [facility] TOXICOLOGY Vanco Lvl 25.4 03/17/2016 [facility] TOXICOLOGY Vanco Lvl 27.9 03/16/2016 [facility] CHEM PANEL Phosphorus 5.0 2.5 - 4.5 03/15/2016 [facility] CHEM PANEL Magnesium Lvl 2.6 1.8 - 2.4 03/15/2016 [facility] CHEM PANEL Ketone Quantitative 0.37 <=0.27 mmol/L 03/15/2016 [facility] CHEM PANEL Magnesium Lvl 1.9 1.8 - 2.4 03/15/2016 [facility] CHEM PANEL Phosphorus 3.7 2.5 - 4.5 03/15/2016 [facility] HEMATOLOGY PTT 46.0 22.9 - 35.8 03/15/2016 [facility] HEMATOLOGY INR 1.43 0.85 - 1.17 03/15/2016 [facility] HEMATOLOGY PT 17.7 12.0 - 14.7 03/15/2016 [facility] URINE AND STOOL UA Hyal Cast 0-2 (03/14/16 10:13 PM) 0 - 2 03/15/2016 [facility] URINE AND STOOL UA Mucus None Seen (03/14/16 10:13 PM) None Seen 03/15/2016 [facility] URINE AND STOOL UA RBC 6-10 /HPF 0 - 2 03/15/2016 [facility] URINE AND STOOL UA Bacteria Many /HPF None Seen /HPF 03/15/2016 [facility] URINE AND STOOL UA WBC 6-10 /HPF None Seen /HPF 03/15/2016 [facility] URINE AND STOOL UA Sq Epi Moderate /LPF Few /LPF 03/15/2016 [facility] URINE AND STOOL UA Turbidity Slight Cloudy (03/14/16 10:13 PM) Clear 03/15/2016 [facility] URINE AND STOOL UA Color Yellow *NA* (03/14/16 10:13 PM) Yellow 03/15/2016 [facility] URINE AND STOOL UA Leuk Est Negative (03/14/16 10:13 PM) Negative 03/15/2016 [facility] URINE AND STOOL UA Nitrite Negative (03/14/16 10:13 PM) Negative 03/15/2016 [facility] URINE AND STOOL UA Protein >=300 mg/dL Negative mg/dL 03/15/2016 [facility] URINE AND STOOL UA pH 6.0 5.0 - 8.0 03/15/2016 [facility] URINE AND STOOL UA Spec Grav 1.025 <=1.030 03/15/2016 [facility] URINE AND STOOL UA Ketones Negative *NA* (03/14/16 10:13 PM) Negative 03/15/2016 [facility] URINE AND STOOL UA Glucose >=1000 mg/dL Negative mg/dL 03/15/2016 [facility] URINE AND STOOL UA Urobilinogen 0.2 0.1 - 1.0 03/15/2016 [facility] URINE AND STOOL UA Blood Moderate *ABN* (03/14/16 10:13 PM) Negative 03/15/2016 [facility] URINE AND STOOL UA Bili Negative *NA* (03/14/16 10:13 PM) Negative 03/15/2016 [facility] URINE AND STOOL Micro? Performed (03/14/16 10:13 PM) 03/15/2016 [facility] CHEM PANEL Lactic Acid Lvl 1.3 0.5 - 2.2 03/15/2016 [facility] BLOOD BANK RESULTS ABO/Rh A POS 03/15/2016 [facility] BLOOD BANK RESULTS Antibody Scrn Negative (03/14/16 6:55 PM) 03/15/2016 [facility] CHEM PANEL Magnesium Lvl 1.6 1.8 - 2.4 03/15/2016 [facility] CHEM PANEL Ketone Quantitative 0.07 <=0.27 mmol/L 03/15/2016 [facility] CHEM PANEL Phosphorus 3.8 2.5 - 4.5 03/14/2016 [facility] CHEM PANEL Ketone Quantitative 0.62 <=0.27 mmol/L 03/14/2016 [facility] HEMATOLOGY Sed Rate >100 mm/hr 0 - 20 03/14/2016 [facility] IMMUNOLOGY C-REACTIVE PROTEIN 314.0 <=2.9 mg/L 03/14/2016 [facility] CHEM PANEL Lactic Acid Lvl 1.9 0.5 - 2.2 03/14/2016 [facility] CHEM PANEL Phosphorus 4.9 2.5 - 4.5 02/25/2016 [facility] CHEM PANEL Magnesium Lvl 2.4 1.8 - 2.4 02/25/2016 [facility] CHEM PANEL eGFR 23 02/25/2016 Result Comment: The eGFR is calculated using the [...] from the National Kidney Disease Education Program (NKDEP) which additionally recommends that when the eGFR is used in patients with extremes of body mass index for purposes of drug dosing, the eGFR should be multiplied by the estimated BMI. [facility] CHEM PANEL Potassium Lvl 4.7 3.5 - 5.1 02/25/2016 Result Comment: slight hemolysis [facility] CHEM PANEL Chloride Lvl 106 95 - 109 02/25/2016 [facility] CHEM PANEL CO2 22 24 - 32 02/25/2016 [facility] CHEM PANEL AGAP 15.7 10.0 - 20.0 02/25/2016 [facility] CHEM PANEL Calcium Lvl 8.5 8.5 - 10.5 02/25/2016 [facility] CHEM PANEL BUN 26 7 - 22 02/25/2016 [facility] CHEM PANEL Glucose Lvl 97 70 - 99 02/25/2016 [facility] CHEM PANEL Creatinine Lvl 2.86 0.50 - 1.40 02/25/2016 [facility] CHEM PANEL Sodium Lvl 139 135 - 145 02/25/2016 [facility] HEMATOLOGY Monocytes 6.6 2.0 - 12.0 02/25/2016 [facility] HEMATOLOGY Eosinophils 3.3 0.0 - 4.0 02/25/2016 [facility] HEMATOLOGY Monocytes # 0.7 0.0 - 0.8 02/25/2016 [facility] HEMATOLOGY Basophils 0.9 0.0 - 1.0 02/25/2016 [facility] HEMATOLOGY Lymphocytes 33.6 20.0 - 40.0 02/25/2016 [facility] HEMATOLOGY Segs 55.6 45.0 - 75.0 02/25/2016 [facility] HEMATOLOGY Basophils # 0.1 0.0 - 0.2 02/25/2016 [facility] HEMATOLOGY Eosinophils # 0.4 0.0 - 0.5 02/25/2016 [facility] HEMATOLOGY Lymphocytes # 3.7 1.0 - 5.5 02/25/2016 [facility] HEMATOLOGY Segs-Bands # 6.1 1.5 - 8.1 02/25/2016 [facility] HEMATOLOGY RBC 2.70 4.20 - 5.40 02/25/2016 [facility] HEMATOLOGY MCH 26.9 27.0 - 31.0 02/25/2016 [facility] HEMATOLOGY Hgb 7.3 12.0 - 16.0 02/25/2016 [facility] HEMATOLOGY WBC 11.0 3.7 - 10.4 02/25/2016 [facility] HEMATOLOGY MPV 7.9 7.4 - 10.4 02/25/2016 [facility] HEMATOLOGY Platelet 586 133 - 450 02/25/2016 [facility] HEMATOLOGY RDW 16.8 11.5 - 14.5 02/25/2016 [facility] HEMATOLOGY MCHC 32.2 32.0 - 36.0 02/25/2016 [facility] HEMATOLOGY Hct 22.5 36.0 - 48.0 02/25/2016 [facility] HEMATOLOGY MCV 83.4 80.0 - 98.0 02/25/2016 [facility] CHEM PANEL Creatinine Lvl 2.80 0.50 - 1.40 02/24/2016 [facility] CHEM PANEL Chloride Lvl 108 95 - 109 02/24/2016 [facility] CHEM PANEL AGAP 12.3 10.0 - 20.0 02/24/2016 [facility] CHEM PANEL Sodium Lvl 137 135 - 145 02/24/2016 [facility] CHEM PANEL Potassium Lvl 5.3 3.5 - 5.1 02/24/2016 [facility] CHEM PANEL CO2 22 24 - 32 02/24/2016 [facility] CHEM PANEL Calcium Lvl 8.6 8.5 - 10.5 02/24/2016 [facility] CHEM PANEL eGFR 23 02/24/2016 Result Comment: The eGFR is calculated using the [...] from the National Kidney Disease Education Program (NKDEP) which additionally recommends that when the eGFR is used in patients with extremes of body mass index for purposes of drug dosing, the eGFR should be multiplied by the estimated BMI. [facility] CHEM PANEL Glucose Lvl 176 70 - 99 02/24/2016 [facility] CHEM PANEL BUN 24 7 - 22 02/24/2016 [facility] CHEM PANEL Magnesium Lvl 2.2 1.8 - 2.4 02/24/2016 [facility] CHEM PANEL Phosphorus 4.7 2.5 - 4.5 02/24/2016 [facility] CHEM PANEL eGFR 26 02/24/2016 Result Comment: The eGFR is calculated using the [...] from the National Kidney Disease Education Program (NKDEP) which additionally recommends that when the eGFR is used in patients with extremes of body mass index for purposes of drug dosing, the eGFR should be multiplied by the estimated BMI. [facility] CHEM PANEL BUN 25 7 - 22 02/24/2016 [facility] CHEM PANEL Glucose Lvl 152 70 - 99 02/24/2016 [facility] CHEM PANEL Potassium Lvl 5.3 3.5 - 5.1 02/24/2016 [facility] CHEM PANEL Sodium Lvl 137 135 - 145 02/24/2016 [facility] CHEM PANEL Creatinine Lvl 2.53 0.50 - 1.40 02/24/2016 [facility] CHEM PANEL Calcium Lvl 8.0 8.5 - 10.5 02/24/2016 [facility] CHEM PANEL AGAP 12.3 10.0 - 20.0 02/24/2016 [facility] CHEM PANEL CO2 21 24 - 32 02/24/2016 [facility] CHEM PANEL Chloride Lvl 109 95 - 109 02/24/2016 [facility] HEMATOLOGY RDW 16.3 11.5 - 14.5 02/24/2016 [facility] HEMATOLOGY Hct 22.1 36.0 - 48.0 02/24/2016 [facility] HEMATOLOGY Hgb 7.1 12.0 - 16.0 02/24/2016 [facility] HEMATOLOGY WBC 12.3 3.7 - 10.4 02/24/2016 [facility] HEMATOLOGY RBC 2.69 4.20 - 5.40 02/24/2016 [facility] HEMATOLOGY MPV 7.5 7.4 - 10.4 02/24/2016 [facility] HEMATOLOGY Platelet 619 133 - 450 02/24/2016 [facility] HEMATOLOGY MCH 26.5 27.0 - 31.0 02/24/2016 [facility] HEMATOLOGY MCV 82.1 80.0 - 98.0 02/24/2016 [facility] HEMATOLOGY MCHC 32.2 32.0 - 36.0 02/24/2016 [facility] HEMATOLOGY Eosinophils # 0.3 0.0 - 0.5 02/24/2016 [facility] HEMATOLOGY Polychrom SLIGHT 02/24/2016 [facility] HEMATOLOGY Toxic Gran SLIGHT 02/24/2016 [facility] HEMATOLOGY Basophils # 0.1 0.0 - 0.2 02/24/2016 [facility] HEMATOLOGY Monocytes 4.6 2.0 - 12.0 02/24/2016 [facility] HEMATOLOGY Lymphocytes 20.2 20.0 - 40.0 02/24/2016 [facility] HEMATOLOGY Segs 72.4 45.0 - 75.0 02/24/2016 [facility] HEMATOLOGY Eosinophils 2.3 0.0 - 4.0 02/24/2016 [facility] HEMATOLOGY Basophils 0.5 0.0 - 1.0 02/24/2016 [facility] HEMATOLOGY Lymphocytes # 2.5 1.0 - 5.5 02/24/2016 [facility] HEMATOLOGY Monocytes # 0.6 0.0 - 0.8 02/24/2016 [facility] HEMATOLOGY Segs-Bands # 8.9 1.5 - 8.1 02/24/2016 [facility] URINE CHEM U Preg Negat anitra (02/23/16 9:34 AM) Negative 02/23/2016 [facility] CHEM PANEL Phosphorus 5.1 2.5 - 4.5 02/23/2016 [facility] CHEM PANEL Magnesium Lvl 2.2 1.8 - 2.4 02/23/2016 [facility] HEMATOLOGY Lymphocytes 38.3 20.0 - 40.0 02/23/2016 [facility] HEMATOLOGY Basophils 1.3 0.0 - 1.0 02/23/2016 [facility] HEMATOLOGY Segs-Bands # 4.8 1.5 - 8.1 02/23/2016 [facility] HEMATOLOGY Lymphocytes # 3.7 1.0 - 5.5 02/23/2016 [facility] HEMATOLOGY Monocytes 6.8 2.0 - 12.0 02/23/2016 [facility] HEMATOLOGY Eosinophils 3.2 0.0 - 4.0 02/23/2016 [facility] HEMATOLOGY Toxic Gran SLIGHT 02/23/2016 [facility] HEMATOLOGY Eosinophils # 0.3 0.0 - 0.5 02/23/2016 [facility] HEMATOLOGY Basophils # 0.1 0.0 - 0.2 02/23/2016 [facility] HEMATOLOGY Monocytes # 0.6 0.0 - 0.8 02/23/2016 [facility] HEMATOLOGY Polychrom SLIGHT 02/23/2016 [facility] HEMATOLOGY Segs 50.4 45.0 - 75.0 02/23/2016 [facility] HEMATOLOGY MCHC 34.0 32.0 - 36.0 02/23/2016 [facility] HEMATOLOGY MCH 27.5 27.0 - 31.0 02/23/2016 [facility] HEMATOLOGY MCV 80.9 80.0 - 98.0 02/23/2016 [facility] HEMATOLOGY RDW 16.7 11.5 - 14.5 02/23/2016 [facility] HEMATOLOGY Platelet 557 133 - 450 02/23/2016 [facility] HEMATOLOGY MPV 7.6 7.4 - 10.4 02/23/2016 [facility] HEMATOLOGY WBC 9.5 3.7 - 10.4 02/23/2016 [facility] HEMATOLOGY Hct 21.6 36.0 - 48.0 02/23/2016 [facility] HEMATOLOGY Hgb 7.4 12.0 - 16.0 02/23/2016 [facility] HEMATOLOGY RBC 2.68 4.20 - 5.40 02/23/2016 [facility] BLOOD BANK RESULTS ABO/Rh A POS 02/22/2016 [facility] BLOOD BANK RESULTS Antibody Scrn Negative (02/22/16 10:24 AM) 02/22/2016 [facility] BLOOD BANK RESULTS RBC product Product available (02/22/16 9:54 AM) 02/22/2016 [facility] URINE CHEM U Potassium 10.9 02/22/2016 [facility] URINE CHEM U Sodium 58 02/22/2016 [facility] URINE CHEM U Chloride 47 02/22/2016 [facility] URINE CHEM U Urea 259 02/22/2016 [facility] URINE CHEM U Protein 708.9 02/22/2016 [facility] URINE CHEM U Creatinine 63.00 02/22/2016 [facility] URINE CHEM U Prot/Creat 11.3 02/22/2016 [facility] SPECIAL CHEMISTRY Hgb A1C 7.4 <=5.6 % 02/21/2016 [facility] CARDIAC ENZYMES Troponin-I <0.02 0.00 - 0.40 02/20/2016 [facility] CARDIAC ENZYMES Troponin-I 0.03 0.00 - 0.40 02/20/2016 [facility] HEMATOLOGY PTT 50.9 22.9 - 35.8 02/20/2016 [facility] BACTERIAL - SEROLOGY MRSA by PCR Positive 1 *ABN* (02/19/16 11:16 PM) 02/20/2016 Result Comment: "Significant Findings called to Tiffani Aguilera__at 0125pm___by __FG_.Read Back OK." [facility] CARDIAC ENZYMES BNP 584 <=100 pg/mL 02/20/2016 [facility] CARDIAC ENZYMES proBNP 65362 0 - 125 02/20/2016 [facility] CHEM PANEL Lipase Lvl 65 73 - 393 02/20/2016 [facility] PARATHYROID PROFILE Ca Ion WB 1.13 1.05 - 1.25 02/20/2016 [facility] PARATHYROID PROFILE Ca Norm WB 1.10 1.05 - 1.25 02/20/2016 [facility] URINE AND STOOL UA RBC 12 0 - 2 02/20/2016 [facility] URINE AND STOOL UA Sq Epi Moderate /LPF Few /LPF 02/20/2016 [facility] URINE AND STOOL UA Leuk Est Negative (02/19/16 10:47 PM) Negative 02/20/2016 [facility] URINE AND STOOL UA WBC 3 0 - 5 02/20/2016 [facility] URINE AND STOOL UA Nitrite Negative (02/19/16 10:47 PM) Negative 02/20/2016 [facility] URINE AND STOOL UA Mucus Few /LPF None Seen /LPF 02/20/2016 [facility] URINE AND STOOL UA Urobilinogen <=1.0 mg/dL 0.1 - 1.0 02/20/2016 [facility] URINE AND STOOL UA Bili Negative *NA* (02/19/16 10:47 PM) Negative 02/20/2016 [facility] URINE AND STOOL UA Blood Moderate *ABN* (02/19/16 10:47 PM) Negative 02/20/2016 [facility] URINE AND STOOL UA pH 6.5 5.0 - 8.0 02/20/2016 [facility] URINE AND STOOL UA Protein >=300 mg/dL Negative mg/dL 02/20/2016 [facility] URINE AND STOOL UA Glucose 200 mg/dL Negative mg/dL 02/20/2016 [facility] URINE AND STOOL UA Ketones Negative mg/dL Negative mg/dL 02/20/2016 [facility] URINE AND STOOL UA Color Yellow *NA* (02/19/16 10:47 PM) Yellow 02/20/2016 [facility] URINE AND STOOL UA Turbidity Clear (02/19/16 10:47 PM) Clear 02/20/2016 [facility] URINE AND STOOL UA Spec Grav 1.014 <=1.030 02/20/2016 [facility] CARDIAC ENZYMES Troponin-I <0.02 0.00 - 0.40 02/19/2016 [facility] CHEM PANEL Lactic Acid WB 0.8 0.5 - 2.2 02/19/2016 [facility] CHEM PANEL B/C Ratio 8 6 - 25 02/19/2016 [facility] CHEM PANEL Total Protein 8.7 6.4 - 8.4 02/19/2016 [facility] CHEM PANEL ALT 11 0 - 65 02/19/2016 [facility] CHEM PANEL A/G Ratio 0.2 0.7 - 1.6 02/19/2016 [facility] CHEM PANEL Globulin 7.2 2.7 - 4.2 02/19/2016 [facility] CHEM PANEL Albumin Lvl 1.5 3.5 - 5.0 02/19/2016 [facility] CHEM PANEL Bili Total 0.2 0.2 - 1.3 02/19/2016 [facility] CHEM PANEL Alk Phos 163 39 - 136 02/19/2016 [facility] CHEM PANEL AST 14 0 - 37 02/19/2016 [facility] HEMATOLOGY PTT 37.2 22.9 - 35.8 02/19/2016 [facility] HEMATOLOGY INR 1.69 0.85 - 1.17 02/19/2016 [facility] HEMATOLOGY PT 20.2 12.0 - 14.7 02/19/2016 [facility] ENDOCRINOLOGY S Preg Ne gative *NA* (02/02/16 6:23 AM) Negative 02/02/2016 [facility] CHEM PANEL eGFR 34 02/02/2016 Result Comment: The eGFR is calculated using the [...] from the National Kidney Disease Education Program (NKDEP) which additionally recommends that when the eGFR is used in patients with extremes of body mass index for purposes of drug dosing, the eGFR should be multiplied by the estimated BMI. [facility] CHEM PANEL CO2 19 24 - 32 02/02/2016 [facility] CHEM PANEL Chloride Lvl 108 95 - 109 02/02/2016 [facility] CHEM PANEL Calcium Lvl 8.4 8.5 - 10.5 02/02/2016 [facility] CHEM PANEL Glucose Lvl 205 70 - 99 02/02/2016 [facility] CHEM PANEL BUN 22 7 - 22 02/02/2016 [facility] CHEM PANEL Creatinine Lvl 2.05 0.50 - 1.40 02/02/2016 [facility] CHEM PANEL Potassium Lvl 4.4 3.5 - 5.1 02/02/2016 [facility] CHEM PANEL Sodium Lvl 139 135 - 145 02/02/2016 [facility] CHEM PANEL AGAP 16.4 10.0 - 20.0 02/02/2016 [facility] HEMATOLOGY Basophils 1.0 0.0 - 1.0 02/02/2016 [facility] HEMATOLOGY Monocytes 6.5 2.0 - 12.0 02/02/2016 [facility] HEMATOLOGY Lymphocytes 24.9 20.0 - 40.0 02/02/2016 [facility] HEMATOLOGY Eosinophils 1.9 0.0 - 4.0 02/02/2016 [facility] HEMATOLOGY Segs 65.7 45.0 - 75.0 02/02/2016 [facility] HEMATOLOGY Basophils # 0.1 0.0 - 0.2 02/02/2016 [facility] HEMATOLOGY Segs-Bands # 7.2 1.5 - 8.1 02/02/2016 [facility] HEMATOLOGY Monocytes # 0.7 0.0 - 0.8 02/02/2016 [facility] HEMATOLOGY Eosinophils # 0.2 0.0 - 0.5 02/02/2016 [facility] HEMATOLOGY Lymphocytes # 2.7 1.0 - 5.5 02/02/2016 [facility] HEMATOLOGY Platelet 511 133 - 450 02/02/2016 [facility] HEMATOLOGY MPV 7.4 7.4 - 10.4 02/02/2016 [facility] HEMATOLOGY WBC 11.0 3.7 - 10.4 02/02/2016 [facility] HEMATOLOGY RDW 15.9 11.5 - 14.5 02/02/2016 [facility] HEMATOLOGY MCH 27.1 27.0 - 31.0 02/02/2016 [facility] HEMATOLOGY MCHC 32.9 32.0 - 36.0 02/02/2016 [facility] HEMATOLOGY MCV 82.4 80.0 - 98.0 02/02/2016 [facility] HEMATOLOGY RBC 3.14 4.20 - 5.40 02/02/2016 [facility] HEMATOLOGY Hgb 8.5 12.0 - 16.0 02/02/2016 [facility] HEMATOLOGY Hct 25.9 36.0 - 48.0 02/02/2016 [facility] ELECTROLYTES AGAP 13.9 10.0 - 20.0 01/11/2016 [facility] ELECTROLYTES eGFR 43 01/11/2016 Result Comment: The eGFR is calculated using the [...] from the National Kidney Disease Education Program (NKDEP) which additionally recommends that when the eGFR is used in patients with extremes of body mass index for purposes of drug dosing, the eGFR should be multiplied by the estimated BMI. [facility] ELECTROLYTES Calcium Lvl 8.5 8.5 - 10.5 01/11/2016 [facility] ELECTROLYTES CO2 23 24 - 32 01/11/2016 [facility] ELECTROLYTES Chloride Lvl 106 95 - 109 01/11/2016 [facility] ELECTROLYTES Potassium Lvl 4.9 3.5 - 5.1 01/11/2016 Result Comment: Specimen Slightly Hemoly zed. [facility] ELECTROLYTES Sodium Lvl 138 135 - 145 01/11/2016 [facility] ELECTROLYTES Creatinine Lvl 1.6 7 0.50 - 1.40 01/11/2016 [facility] ELECTROLYTES BUN 18 7 - 22 01/11/2016 [facility] ELECTROLYTES Glucose Lvl 131 70 - 99 01/11/2016 [facility] HEMATOLOGY RBC 3.18 4.20 - 5.40 01/11/2016 [facility] HEMATOLOGY MCV 85.8 80.0 - 98.0 01/11/2016 [facility] HEMATOLOGY Hct 27.2 36.0 - 48.0 01/11/2016 [facility] HEMATOLOGY Hgb 8.8 12.0 - 16.0 01/11/2016 [facility] HEMATOLOGY MCHC 32.4 32.0 - 36.0 01/11/2016 [facility] HEMATOLOGY RDW 15.8 11.5 - 14.5 01/11/2016 [facility] HEMATOLOGY MCH 27.8 27.0 - 31.0 01/11/2016 [facility] HEMATOLOGY Platelet 511 133 - 450 01/11/2016 [facility] HEMATOLOGY MPV 7.7 7.4 - 10.4 01/11/2016 [facility] HEMATOLOGY WBC 10.8 3.7 - 10.4 01/11/2016 [facility] HEMATOLOGY Monocytes # 0.7 0.0 - 0.8 01/11/2016 [facility] HEMATOLOGY Lymphocytes # 2.3 1.0 - 5.5 01/11/2016 [facility] HEMATOLOGY Segs-Bands # 7.3 1.5 - 8.1 01/11/2016 [facility] HEMATOLOGY Eosinophils # 0.3 0.0 - 0.5 01/11/2016 [facility] HEMATOLOGY Basophils # 0.1 0.0 - 0.2 01/11/2016 [facility] HEMATOLOGY Basophils 1.1 0.0 - 1.0 01/11/2016 [facility] HEMATOLOGY Monocytes 6.9 2.0 - 12.0 01/11/2016 [facility] HEMATOLOGY Segs 68.0 45.0 - 75.0 01/11/2016 [facility] HEMATOLOGY Lymphocytes 21.5 20.0 - 40.0 01/11/2016 [facility] HEMATOLOGY Eosinophils 2.5 0.0 - 4.0 01/11/2016 [facility] HEMATOLOGY Eosinophils 3.7 0.0 - 4.0 12/31/2015 [facility] HEMATOLOGY Basophils 0.3 0.0 - 1.0 12/31/2015 [place] [facility] HEMATOLOG[facility] Segs-Bands # 5.0 1.5 - 8.1 12/31/2015 [facility] HEMATOLOGY Basophils # 0.0 0.0 - 0.2 12/31/2015 [facility] [place][note 2] Lymphocytes # 2.5 1.0 - 5.5 12/31/2015 [facility] HEMATOLOGY Eosinophils # 0.3 0.0 - 0.5 12/31/2015 [facility] HEMATOLOGY Monocytes # 0.7 0.0 - 0.8 12/31/2015 [facility] HEMATOLOGY Monocytes 8.0 2.0 - 12.0 12/31/2015 [facility] HEMATOLOGY Lymphocytes 29.6 20.0 - 40.0 12/31/2015 [facility] HEMATOLOGY Segs 58.4 45.0 - 75.0 12/31/2015 [facility] [place][note 2] MPV 8.1 7.4 - 10.4 12/31/2015 [facility] [place][note 2] Platelet 315 133 - 450 12/31/2015 [facility] [place][note 2] MCHC 31.2 32.0 - 36.0 12/31/2015 [facility] [place][note 2] RDW 16.5 11.5 - 14.5 12/31/2015 [facility] [place][note 2] Hgb 9.3 12.0 - 16.0 12/31/2015 [facility] HEMATOLOGY MCH 27.5 27.0 - 31.0 12/31/2015 [facility] HEMATOLOGY Hct 29.9 36.0 - 48.0 12/31/2015 [facility] HEMATOLOGY MCV 88.1 80.0 - 98.0 12/31/2015 [facility] HEMATOLOGY WBC 8.6 3.7 - 10.4 12/31/2015 [facility] HEMATOLOGY RBC 3.39 4.20 - 5.40 12/31/2015 [facility] IMMUNOLOGY CRP, High Sensitivity 88. 6 12/31/2015 [facility] URINE AND STOOL UA Color Yellow (12/30/15 7:56 PM) Yellow 12/31/2015 [facility] URINE AND STOOL UA Turbidity Clear (12/30/15 7:56 PM) Clear 12/31/2015 [facility] URINE AND STOOL UA Nitrite Negative (12/30/15 7:56 PM) Negative 12/31/2015 [facility] URINE AND STOOL UA pH 6.5 5.0 - 8.0 12/31/2015 [facility] URINE AND STOOL UA Leuk Est Negative (12/30/15 7:56 PM) Negative 12/31/2015 [facility] URINE AND STOOL UA Spec Grav 1.020 <=1.030 12/31/2015 [facility] URINE AND STOOL UA Bili Negative (12/30/15 7:56 PM) Negative 12/31/2015 [facility] URINE AND STOOL UA Blood Small *ABN* (12/30/15 7:56 PM) Negative 12/31/2015 [facility] URINE AND STOOL UA Urobilinogen 0.2 0.1 - 1.0 12/31/2015 [facility] URINE AND STOOL UA Bacteria Few /HPF None Seen /HPF 12/31/2015 [facility] URINE AND STOOL UA Sq Epi Few /LPF Few /LPF 12/31/2015 [facility] URINE AND STOOL UA RBC 0-2 /HPF 0 - 2 12/31/2015 [facility] URINE AND STOOL UA WBC 0-2 /HPF 0 - 5 12/31/2015 [facility] URINE AND STOOL UA Mucus Few /LPF None Seen /LPF 12/31/2015 [facility] URINE AND STOOL UA Ketones Negative (12/30/15 7:56 PM) Negative 12/31/2015 [facility] URINE AND STOOL UA Protein >=300 12/31/2015 [facility] URINE AND STOOL UA Glucose 100 mg/dL Negative mg/dL 12/31/2015 [facility] ANEMIA STUDY Ferritin Lvl 147 5 - 204 12/29/2015 [facility] ANEMIA STUDY UIBC 67 110 - 370 12/29/2015 [facility] ANEMIA STUDY % [place] 36 12 - 57 12/29/2015 [facility] ANEMIA STUDY Iron 37 30 - 160 12/29/2015 [facility] ANEMIA STUDY TIBC 104 228 - 428 12/29/2015 [facility] CHEM PANEL Magnesium Lvl 1.6 1.8 - 2.4 12/29/2015 [facility] ELECTROLYTES AGAP 12.0 10.0 - 20.0 12/29/2015 [facility] ELECTROLYTES eGFR 53 12/29/2015 Result Comment: The eGFR is calculated using the [...] from the National Kidney Disease Education Program (NKDEP) which additionally recommends that when the eGFR is used in patients with extremes of body mass index for purposes of drug dosing, the eGFR should be multiplied by the estimated BMI. [facility] ELECTROLYTES BUN 12 7 - 22 12/29/2015 [facility] ELECTROLYTES Glucose Lvl 105 70 - 99 12/29/2015 [facility] ELECTROLYTES Potassium Lvl 4.0 3.5 - 5.1 12/29/2015 [facility] ELECTROLYTES Sodium Lvl 141 135 - 145 12/29/2015 [facility] ELECTROLYTES Chloride Lvl 109 95 - 109 12/29/2015 [facility] ELECTROLYTES CO2 24 24 - 32 12/29/2015 [facility] ELECTROLYTES Creatinine Lvl 1.4 0 0.50 - 1.40 12/29/2015 [facility] ELECTROLYTES Calcium Lvl 8.7 8.5 - 10.5 12/29/2015 [facility] HEMATOLOGY WBC 9.0 3.7 - 10.4 12/29/2015 [facility] HEMATOLOGY RDW 16.5 11.5 - 14.5 12/29/2015 [facility] HEMATOLOGY Platelet 375 133 - 450 12/29/2015 [facility] [place][note 2] MCHC 31.4 32.0 - 36.0 12/29/2015 [facility] [place][note 2] MPV 8.0 7.4 - 10.4 12/29/2015 [facility] [place][note 2] Hgb 9.5 12.0 - 16.0 12/29/2015 [facility] [place][note 2] Hct 30.3 36.0 - 48.0 12/29/2015 [facility] [place][note 2] RBC 3.50 4.20 - 5.40 12/29/2015 [facility] [place][note 2] MCV 86.5 80.0 - 98.0 12/29/2015 [facility] [place][note 2] MCH 27.2 27.0 - 31.0 12/29/2015 [facility] [place][note 2] Monocytes 8.7 2.0 - 12.0 12/29/2015 [facility] [place][note 2] Segs-Bands # 5.1 1.5 - 8.1 12/29/2015 [facility] [place][note 2] Eosinophils 3.9 0.0 - 4.0 12/29/2015 [facility] [place][note 2] Basophils 0.6 0.0 - 1.0 12/29/2015 [facility] [place][note 2] Segs 56.5 45.0 - 75.0 12/29/2015 [facility] [place][note 2] Lymphocytes 30.3 20.0 - 40.0 12/29/2015 [facility] [place][note 2] Basophils # 0.1 0.0 - 0.2 12/29/2015 [facility] [place][note 2] Lymphocytes # 2.7 1.0 - 5.5 12/29/2015 [facility] [place][note 2] Eosinophils # 0.3 0.0 - 0.5 12/29/2015 [facility] [place][note 2] Monocytes # 0.8 0.0 - 0.8 12/29/2015 [facility] CHEM PANEL Magnesium Lvl 1.5 1.8 - 2.4 12/27/2015 [facility] CHEM PANEL eGFR 45 12/25/2015 Result Comment: The eGFR is calculated using the [...] from the National Kidney Disease Education Program (NKDEP) which additionally recommends that when the eGFR is used in patients with extremes of body mass index for purposes of drug dosing, the eGFR should be multiplied by the estimated BMI. [facility] CHEM PANEL Calcium Lvl 8.3 8.5 - 10.5 12/25/2015 [facility] CHEM PANEL AGAP 10.1 10.0 - 20.0 12/25/2015 [facility] CHEM PANEL Glucose Lvl 212 70 - 99 12/25/2015 [facility] CHEM PANEL Chloride Lvl 109 95 - 109 12/25/2015 [facility] CHEM PANEL BUN 15 7 - 22 12/25/2015 [facility] CHEM PANEL CO2 26 24 - 32 12/25/2015 [facility] CHEM PANEL Sodium Lvl 141 135 - 145 12/25/2015 [facility] CHEM PANEL Creatinine Lvl 1.60 0.50 - 1.40 12/25/2015 [facility] CHEM PANEL Potassium Lvl 4.1 3.5 - 5.1 12/25/2015 [facility] ELECTROLYTES AGAP 12.6 10.0 - 20.0 12/21/2015 [facility] ELECTROLYTES eGFR 45 12/21/2015 Result Comment: The eGFR is calculated using the [...] from the National Kidney Disease Education Program (NKDEP) which additionally recommends that when the eGFR is used in patients with extremes of body mass index for purposes of drug dosing, the eGFR should be multiplied by the estimated BMI. [facility] ELECTROLYTES BUN 18 7 - 22 12/21/2015 [facility] ELECTROLYTES Glucose Lvl 110 70 - 99 12/21/2015 [facility] ELECTROLYTES Calcium Lvl 9.1 8.5 - 10.5 12/21/2015 [facility] ELECTROLYTES Chloride Lvl 110 95 - 109 12/21/2015 [facility] ELECTROLYTES CO2 23 24 - 32 12/21/2015 [facility] ELECTROLYTES Potassium Lvl 4.6 3.5 - 5.1 12/21/2015 [facility] ELECTROLYTES Sodium Lvl 141 135 - 145 12/21/2015 [facility] ELECTROLYTES Creatinine Lvl 1.6 0 0.50 - 1.40 12/21/2015 [facility] HEMATOLOGY WBC 8.2 3.7 - 10.4 12/21/2015 [facility] HEMATOLOGY RDW 16.3 11.5 - 14.5 12/21/2015 [facility] HEMATOLOGY MPV 8.1 7.4 - 10.4 12/21/2015 [facility] HEMATOLOGY Platelet 361 133 - 450 12/21/2015 [facility] [place][note 2] Hgb 9.1 12.0 - 16.0 12/21/2015 [facility] [place][note 2] MCV 87.1 80.0 - 98.0 12/21/2015 [facility] [place][note 2] Hct 28.7 36.0 - 48.0 12/21/2015 [facility] [place][note 2] MCHC 31.7 32.0 - 36.0 12/21/2015 [facility] [place][note 2] MCH 27.6 27.0 - 31.0 12/21/2015 [facility] HEMATOLOGY RBC 3.29 4.20 - 5.40 12/21/2015 [facility] HEMATOLOGY Basophils 0.8 0.0 - 1.0 12/21/2015 [facility] HEMATOLOGY Eosinophils 5.2 0.0 - 4.0 12/21/2015 [facility] HEMATOLOGY Lymphocytes 29.4 20.0 - 40.0 12/21/2015 [facility] [place][note 2] Monocytes 7.2 2.0 - 12.0 12/21/2015 [facility] HEMATOLOGY Monocytes # 0.6 0.0 - 0.8 12/21/2015 [facility] HEMATOLOGY Eosinophils # 0.4 0.0 - 0.5 12/21/2015 [facility] HEMATOLOGY Segs-Bands # 4.7 1.5 - 8.1 12/21/2015 [facility] HEMATOLOGY Lymphocytes # 2.4 1.0 - 5.5 12/21/2015 [facility] HEMATOLOGY Segs 57.4 45.0 - 75.0 12/21/2015 [facility] HEMATOLOGY Basophils # 0.1 0.0 - 0.2 12/21/2015 [facility] CHEM PANEL Phosphorus 4.0 2.5 - 4.5 12/09/2015 [facility] CHEM PANEL Albumin Lvl 1.7 3.5 - 5.0 12/09/2015 [facility] CHEM PANEL Magnesium Lvl 1.7 1.8 - 2.4 11/28/2015 [facility] CHEM PANEL ALT 10 0 - 65 11/28/2015 [facility] CHEM PANEL Albumin Lvl 1.6 3.5 - 5.0 11/28/2015 [facility] CHEM PANEL Total Protein 7.3 6.4 - 8.4 11/28/2015 [facility] CHEM PANEL AST 20 0 - 37 11/28/2015 [facility] CHEM PANEL Alk Phos 151 39 - 136 11/28/2015 [facility] CHEM PANEL Bili Total 0.1 0.2 - 1.3 11/28/2015 [facility] CHEM PANEL Globulin 5.7 2.7 - 4.2 11/28/2015 [facility] CHEM PANEL B/C Ratio 10 6 - 25 11/28/2015 [facility] CHEM PANEL A/G Ratio 0.3 0.7 - 1.6 11/28/2015 [facility] HEMATOLOGY PTT 41.7 22.9 - 35.8 11/28/2015 [facility] URINE AND STOOL UA Urobilinogen <=1.0 mg/dL 0.1 - 1.0 11/25/2015 [facility] URINE AND STOOL UA Glucose 100mg/dL 11/25/2015 [facility] URINE AND STOOL Micro? Performed *NA* (11/25/15 9:48 AM) 11/25/2015 [facility] URINE AND STOOL UA Hyal Cast 1 0 - 2 11/25/2015 [facility] URINE AND STOOL UA Amorph Tamera Occasional /HPF None Seen /HPF 11/25/2015 [facility] URINE AND STOOL UA Mucus Few /LPF None Seen /LPF 11/25/2015 [facility] URINE AND STOOL UA Blood Trace *ABN* (11/25/15 9:48 AM) Negative 11/25/2015 [facility] URINE AND STOOL UA Bili Negative *NA* (11/25/15 9:48 AM) Negative 11/25/2015 [facility] URINE AND STOOL UA Ketones Negative mg/dL Negative mg/dL 11/25/2015 [facility] URINE AND STOOL UA Nitrite Negative (11/25/15 9:48 AM) Negative 11/25/2015 [facility] URINE AND STOOL UA Sq Epi Occasional /LPF Few /LPF 11/25/2015 [facility] URINE AND STOOL UA Leuk Est Negative (11/25/15 9:48 AM) Negative 11/25/2015 [facility] URINE AND STOOL UA RBC 2 0 - 2 11/25/2015 [facility] URINE AND STOOL UA WBC 3 0 - 5 11/25/2015 [facility] URINE AND STOOL UA Bacteria Occasional /HPF None Seen /HPF 11/25/2015 [facility] URINE AND STOOL UA Protein >=300 mg/dL Negative mg/dL 11/25/2015 [facility] URINE AND STOOL UA pH 6.5 5.0 - 8.0 11/25/2015 [facility] URINE AND STOOL UA Color Yellow *NA* (11/25/15 9:48 AM) Yellow 11/25/2015 [facility] URINE AND STOOL UA Spec Grav 1.015 <=1.030 11/25/2015 [facility] URINE AND STOOL UA Turbidity Clear (11/25/15 9:48 AM) Clear 11/25/2015 [facility] URINE CHEM U Prot/Creat 8.2 11/25/2015 [facility] URINE CHEM U Protein 873.9 11/25/2015 [facility] URINE CHEM U Urea 281 11/25/2015 [facility] URINE CHEM U Sodium 57 11/25/2015 [facility] URINE CHEM U Eos None Seen (11/25/15 9:48 AM) None Seen 11/25/2015 [facility] URINE CHEM U Creatinine 107.00 11/25/2015 [facility] CHEM PANEL eGFR 40 11/25/2015 Result Comment: The eGFR is calculated using the [...] from the National Kidney Disease Education Program (NKDEP) which additionally recommends that when the eGFR is used in patients with extremes of body mass index for purposes of drug dosing, the eGFR should be multiplied by the estimated BMI. [facility] CHEM PANEL Creatinine Lvl 1.79 0.50 - 1.40 11/25/2015 [facility] CHEM PANEL Sodium Lvl 142 135 - 145 11/25/2015 [facility] CHEM PANEL Potassium Lvl 4.8 3.5 - 5.1 11/25/2015 [facility] CHEM PANEL Chloride Lvl 110 95 - 109 11/25/2015 [facility] CHEM PANEL CO2 25 24 - 32 11/25/2015 [facility] CHEM PANEL Glucose Lvl 120 70 - 99 11/25/2015 [facility] CHEM PANEL BUN 21 7 - 22 11/25/2015 [facility] CHEM PANEL Calcium Lvl 8.3 8.5 - 10.5 11/25/2015 [facility] CHEM PANEL AGAP 11.8 10.0 - 20.0 11/25/2015 [facility] CHEM PANEL eGFR 43 11/24/2015 Result Comment: The eGFR is calculated using the [...] from the National Kidney Disease Education Program (NKDEP) which additionally recommends that when the eGFR is used in patients with extremes of body mass index for purposes of drug dosing, the eGFR should be multiplied by the estimated BMI. [facility] CHEM PANEL Chloride Lvl 108 95 - 109 11/24/2015 [facility] CHEM PANEL CO2 22 24 - 32 11/24/2015 [facility] CHEM PANEL Calcium Lvl 8.7 8.5 - 10.5 11/24/2015 [facility] CHEM PANEL Creatinine Lvl 1.69 0.50 - 1.40 11/24/2015 [facility] CHEM PANEL Potassium Lvl 4.9 3.5 - 5.1 11/24/2015 [facility] CHEM PANEL Sodium Lvl 140 135 - 145 11/24/2015 [facility] CHEM PANEL Glucose Lvl 149 70 - 99 11/24/2015 [facility] CHEM PANEL BUN 16 7 - 22 11/24/2015 [facility] CHEM PANEL AGAP 14.9 10.0 - 20.0 11/24/2015 [facility] HEMATOLOGY Basophils 1.1 0.0 - 1.0 11/24/2015 [facility] HEMATOLOGY Eosinophils 3.5 0.0 - 4.0 11/24/2015 [facility] HEMATOLOGY Monocytes 8.1 2.0 - 12.0 11/24/2015 [facility] HEMATOLOGY Segs-Bands # 4.4 1.5 - 8.1 11/24/2015 [facility] HEMATOLOGY Lymphocytes # 2.3 1.0 - 5.5 11/24/2015 [facility] HEMATOLOGY Segs 57.3 45.0 - 75.0 11/24/2015 [facility] HEMATOLOGY Lymphocytes 30.0 20.0 - 40.0 11/24/2015 [facility] HEMATOLOGY Monocytes # 0.6 0.0 - 0.8 11/24/2015 [facility] HEMATOLOGY Basophils # 0.1 0.0 - 0.2 11/24/2015 [facility] HEMATOLOGY Eosinophils # 0.3 0.0 - 0.5 11/24/2015 [facility] HEMATOLOGY MCH 29.6 27.0 - 31.0 11/24/2015 [facility] HEMATOLOGY MCV 90.6 80.0 - 98.0 11/24/2015 [facility] HEMATOLOGY WBC 7.7 3.7 - 10.4 11/24/2015 [facility] HEMATOLOGY RDW 16.8 11.5 - 14.5 11/24/2015 [facility] HEMATOLOGY MCHC 32.6 32.0 - 36.0 11/24/2015 [facility] HEMATOLOGY Platelet 323 133 - 450 11/24/2015 [facility] HEMATOLOGY Hct 23.1 36.0 - 48.0 11/24/2015 [facility] HEMATOLOGY Hgb 7.5 12.0 - 16.0 11/24/2015 [facility] HEMATOLOGY RBC 2.54 4.20 - 5.40 11/24/2015 [facility] HEMATOLOGY MPV 7.9 7.4 - 10.4 11/24/2015 [facility] ELECTROLYTES Potassium Lvl 4.8 3.5 - 5.1 11/23/2015 [facility] ELECTROLYTES AGAP 13.8 10.0 - 20.0 11/23/2015 [facility] ELECTROLYTES CO2 24 24 - 32 11/23/2015 [facility] ELECTROLYTES Calcium Lvl 8.0 8.5 - 10.5 11/23/2015 [facility] ELECTROLYTES Chloride Lvl 109 95 - 109 11/23/2015 [facility] ELECTROLYTES Creatinine Lvl 1.8 6 0.50 - 1.40 11/23/2015 [facility] ELECTROLYTES Sodium Lvl 142 135 - 145 11/23/2015 [facility] ELECTROLYTES eGFR 38 11/23/2015 Result Comment: The eGFR is calculated using the [...] from the National Kidney Disease Education Program (NKDEP) which additionally recommends that when the eGFR is used in patients with extremes of body mass index for purposes of drug dosing, the eGFR should be multiplied by the estimated BMI. [facility] ELECTROLYTES Glucose Lvl 156 70 - 99 11/23/2015 [facility] ELECTROLYTES BUN 19 7 - 22 11/23/2015 [facility] HEMATOLOGY RDW 16.7 11.5 - 14.5 11/20/2015 [facility] HEMATOLOGY MCV 89.6 80.0 - 98.0 11/20/2015 [facility] HEMATOLOGY Hct 22.7 36.0 - 48.0 11/20/2015 [facility] HEMATOLOGY MCHC 32.5 32.0 - 36.0 11/20/2015 [facility] HEMATOLOGY MCH 29.1 27.0 - 31.0 11/20/2015 [facility] HEMATOLOGY RBC 2.53 4.20 - 5.40 11/20/2015 [facility] HEMATOLOGY Hgb 7.4 12.0 - 16.0 11/20/2015 [facility] HEMATOLOGY WBC 8.4 3.7 - 10.4 11/20/2015 [facility] HEMATOLOGY MPV 7.3 7.4 - 10.4 11/20/2015 [facility] HEMATOLOGY Platelet 430 133 - 450 11/20/2015 [facility] HEMATOLOGY Basophils # 0.1 0.0 - 0.2 11/20/2015 [facility] HEMATOLOGY Eosinophils # 0.2 0.0 - 0.5 11/20/2015 [facility] HEMATOLOGY Monocytes # 0.7 0.0 - 0.8 11/20/2015 [facility] HEMATOLOGY Lymphocytes # 2.9 1.0 - 5.5 11/20/2015 [facility] HEMATOLOGY Eosinophils 2.5 0.0 - 4.0 11/20/2015 [facility] HEMATOLOGY Segs-Bands # 4.5 1.5 - 8.1 11/20/2015 [facility] HEMATOLOGY Basophils 1.5 0.0 - 1.0 11/20/2015 [facility] HEMATOLOGY Monocytes 7.9 2.0 - 12.0 11/20/2015 [facility] HEMATOLOGY Lymphocytes 35.0 20.0 - 40.0 11/20/2015 [facility] HEMATOLOGY Segs 53.1 45.0 - 75.0 11/20/2015 [facility] HEMATOLOGY MPV 8.0 7.4 - 10.4 11/16/2015 [facility] HEMATOLOGY RDW 16.2 11.5 - 14.5 11/16/2015 [facility] HEMATOLOGY Platelet 567 133 - 450 11/16/2015 [facility] HEMATOLOGY MCH 29.2 27.0 - 31.0 11/16/2015 [facility] HEMATOLOGY MCHC 32.7 32.0 - 36.0 11/16/2015 [facility] HEMATOLOGY RBC 2.64 4.20 - 5.40 11/16/2015 [facility] HEMATOLOGY WBC 10.5 3.7 - 10.4 11/16/2015 [facility] HEMATOLOGY Hct 23.6 36.0 - 48.0 11/16/2015 [facility] HEMATOLOGY Hgb 7.7 12.0 - 16.0 11/16/2015 [facility] HEMATOLOGY MCV 89.4 80.0 - 98.0 11/16/2015 [facility] HEMATOLOGY Basophils # 0.1 0.0 - 0.2 11/16/2015 [facility] HEMATOLOGY Lymphocytes # 3.3 1.0 - 5.5 11/16/2015 [facility] HEMATOLOGY Eosinophils # 0.2 0.0 - 0.5 11/16/2015 [facility] HEMATOLOGY Monocytes # 0.8 0.0 - 0.8 11/16/2015 [facility] HEMATOLOGY Lymphocytes 31.2 20.0 - 40.0 11/16/2015 [facility] HEMATOLOGY Segs 58.6 45.0 - 75.0 11/16/2015 [facility] HEMATOLOGY Eosinophils 1.7 0.0 - 4.0 11/16/2015 [facility] HEMATOLOGY Monocytes 7.8 2.0 - 12.0 11/16/2015 [facility] HEMATOLOGY Segs-Bands # 6.2 1.5 - 8.1 11/16/2015 [facility] HEMATOLOGY Basophils 0.7 0.0 - 1.0 11/16/2015 [facility] CHEM PANEL Magnesium Lvl 1.7 1.8 - 2.4 11/11/2015 [facility] CHEM PANEL Phosphorus 3.2 2.5 - 4.5 11/11/2015 [facility] BLOOD BANK RESULTS Antibody Scrn Negative (11/10/15 9:58 AM) 11/10/2015 [facility] BLOOD BANK RESULTS ABO/Rh A POS 11/10/2015 [facility] BLOOD BANK RESULTS RBC product Product available (11/10/15 7:36 AM) 11/10/2015 [facility] CHEM PANEL Phosphorus 2.6 2.5 - 4.5 11/09/2015 [facility] CHEM PANEL Magnesium Lvl 1.7 1.8 - 2.4 11/09/2015 [facility] HEMATOLOGY Myelocytes 1.0 <=0.0 % 11/08/2015 [facility] HEMATOLOGY Atypical Lymphs 0.0 <=0.0 % 11/08/2015 [facility] HEMATOLOGY NRBC 1 11/08/2015 [facility] HEMATOLOGY RBC Morph Rosina l (11/08/15 4:29 AM) 11/08/2015 [facility] HEMATOLOGY Plt Morph See N ote 1 (11/08/15 4:29 AM) 11/08/2015 Result Comment: Due to occas sional clumps, the actual count may be slightly higher. [facility] HEMATOLOGY Bands 0.0 0.0 - 11.0 11/08/2015 [facility] TOXICOLOGY Vanco Tr 16.1 11/07/2015 [facility] TOXICOLOGY Vanco Tr TND 0430 11/07/2015 [facility] CHEM PANEL Magnesium Lvl 1.7 1.8 - 2.4 11/06/2015 [facility] CHEM PANEL Phosphorus 4.0 2.5 - 4.5 11/06/2015 [facility] TOXICOLOGY Vanco Tr 11.6 11/06/2015 [facility] TOXICOLOGY Vanco Tr TND 2030 11/06/2015 [facility] BLOOD BANK RESULTS Antibody Scrn Negative (11/05/15 4:34 AM) 11/05/2015 [facility] BLOOD BANK RESULTS ABO/Rh A POS 11/05/2015 [facility] HEMATOLOGY PT 15.8 12.0 - 14.7 11/05/2015 [facility] HEMATOLOGY INR 1.23 0.85 - 1.17 11/05/2015 [facility] HEMATOLOGY PTT 48.1 22.9 - 35.8 11/05/2015 [facility] SPECIAL CHEMISTRY Hgb A1C 12.9 <=5.6 % 11/05/2015 [facility] TOXICOLOGY Vanco Tr 12.0 11/05/2015 [facility] TOXICOLOGY Vanco Tr TND 0430 11/05/2015 [facility] URINE CHEM U Protein 910.4 11/04/2015 [facility] URINE CHEM U Sodium 31 11/04/2015 [facility] URINE CHEM U Creatinine 88.30 11/04/2015 [facility] URINE CHEM U Preg Negat anitra (11/04/15 6:11 PM) Negative 11/04/2015 [facility] TOXICOLOGY Vanco Lvl 20.6 11/03/2015 [facility] CHEM PANEL Lactic Acid Lvl 0.8 0.5 - 2.2 11/02/2015 [facility] TOXICOLOGY Vanco Lvl 18.6 11/02/2015 [facility] CHEM PANEL Lactic Acid Lvl 0.7 0.5 - 2.2 11/02/2015 [facility] BLOOD BANK RESULTS Antibody Scrn Negative (11/02/15 1:27 AM) 11/02/2015 [facility] BLOOD BANK RESULTS ABO/Rh A POS 11/02/2015 [facility] CHEM PANEL Lactic Acid Lvl 0.9 0.5 - 2.2 11/02/2015 [facility] URINE AND STOOL UA Bacteria Few /HPF None Seen /HPF 11/02/2015 [facility] URINE AND STOOL UA RBC 11-20 /HPF 0 - 2 11/02/2015 [facility] URINE AND STOOL UA WBC 0-2 /HPF None Seen /HPF 11/02/2015 [facility] URINE AND STOOL UA Sq Epi Moderate /LPF Few /LPF 11/02/2015 [facility] URINE AND STOOL UA Leuk Est Negative (11/01/15 11:13 PM) Negative 11/02/2015 [facility] URINE AND STOOL UA Gran Cast 0-2 /LPF None Seen /LPF 11/02/2015 [facility] URINE AND STOOL UA Coarse Gran 0-2 /LPF None Seen /LPF 11/02/2015 [facility] URINE AND STOOL UA Hyal Cast 0-2 (11/01/15 11:13 PM) 0 - 2 11/02/2015 [facility] URINE AND STOOL UA Amorph Tamera Few /HPF None Seen /HPF 11/02/2015 [facility] URINE AND STOOL UA Mucus Few /LPF None Seen /LPF 11/02/2015 [facility] URINE AND STOOL UA Nitrite Negative (11/01/15 11:13 PM) Negative 11/02/2015 [facility] URINE AND STOOL UA Protein >=300 mg/dL Negative mg/dL 11/02/2015 [facility] URINE AND STOOL UA Glucose >=1000 mg/dL Negative mg/dL 11/02/2015 [facility] URINE AND STOOL UA pH 6.0 5.0 - 8.0 11/02/2015 [facility] URINE AND STOOL UA Turbidity Clear (11/01/15 11:13 PM) Clear 11/02/2015 [facility] URINE AND STOOL UA Spec Grav 1.020 <=1.030 11/02/2015 [facility] URINE AND STOOL UA Color Yellow *NA* (11/01/15 11:13 PM) Yellow 11/02/2015 [facility] URINE AND STOOL UA Urobilinogen 0.2 0.1 - 1.0 11/02/2015 [facility] URINE AND STOOL UA Blood Moderate *ABN* (11/01/15 11:13 PM) Negative 11/02/2015 [facility] URINE AND STOOL UA Bili Negative *NA* (11/01/15 11:13 PM) Negative 11/02/2015 [facility] URINE AND STOOL UA Ketones Negative *NA* (11/01/15 11:13 PM) Negative 11/02/2015 [facility] CARDIAC ENZYMES Troponin-I <0.02 0.00 - 0.40 11/02/2015 [facility] CARDIAC ENZYMES Total CK 30 12 - 191 11/02/2015 [facility] HEMATOLOGY Sed Rate >100 mm/hr 0 - 20 11/02/2015 [facility] HEMATOLOGY PTT 34.3 22.9 - 35.8 11/02/2015 [facility] HEMATOLOGY INR 1.14 0.85 - 1.17 11/02/2015 [facility] HEMATOLOGY PT 14.9 12.0 - 14.7 11/02/2015 [facility] IMMUNOLOGY C-REACTIVE PROTEIN 454.0 <=2.9 mg/L 11/02/2015 [facility] CARDIAC ENZYMES CK-MB INDEX <0.5 0.0 - 2.5 11/02/2015 [facility] CARDIAC ENZYMES CK MB <0.5 ng/mL 0.5 - 3.6 11/02/2015 [facility] CHEM PANEL Globulin 6.7 2.0 - 4.0 11/02/2015 [facility] CHEM PANEL Bili Total 0.4 0.2 - 1.3 11/02/2015 [facility] CHEM PANEL AST 12 0 - 37 11/02/2015 [facility] CHEM PANEL ALT 8 0 - 65 11/02/2015 [facility] CHEM PANEL Alk Phos 155 39 - 136 11/02/2015 [facility] CHEM PANEL A/G Ratio 0.3 0.7 - 1.6 11/02/2015 [facility] CHEM PANEL Albumin Lvl 1.7 3.5 - 5.0 11/02/2015 Result Comment: rechecked [facility] CHEM PANEL Total Protein 8.4 6.4 - 8.4 11/02/2015 [facility] CHEM PANEL B/C Ratio 8 6 - 25 11/02/2015 [facility] CHEM PANEL Procalcitonin Lvl 0.89 0.00 - 0.10 11/02/2015 [facility] Pathology Reports No Data Provided for This Section Diagnostic Reports Report Value Date Source Spine lumbar wo contrast CT Ra diation Dose CTDIVOL = 0 (mGy): DLP = 1292.83 (mGy-cm) PROCEDURE INFORMATION: Exam: CT Lumbar Spine Without Contrast Exam date and time: 08/17/2019 10:22 PM Age: 43 years old Clinical indication: Pain; Additional info: /pain, trauma TECHNIQUE: Imaging protocol: Computed tomography images of the lumbar spine without contrast. Total DLP: 1292.83 mGy-cm Radiation optimization: All CT scans at this facility use at least one of these dose optimization techniques: automated exposure control; mA and/or kV adjustment per patient size (includes targeted exams where dose is matched to clinical indication); or iterative reconstruction. COMPARISON: CR SPINE LUMBAR SERIES DX 02/21/2016 5:03 PM FINDINGS: Vertebrae: There is lumbar lordosis. The vertebral body heights and alignment are maintained. There is disc space narrowing and endplate irregularity at L5-S1. There are changes of bilateral sacroiliitis. Pleural space: Right pleural effusion. Consolidation/atelectasis in the right lower lobe. Soft tissues: Unremarkable. IMPRESSION: No fracture or subluxation. Degenerative changes in the lumbar spine. Bilateral sacroiliitis. Right pleural effusion. Consolidation/atelectasis in the right lower lobe Tamie Perez MD On 08/17/2019 23:03:22; [id number] 08/17/2019 [facility] Chest 1view DX PROCEDURE INFOR MATION: Exam: XR Chest, 1 View Exam date and time: 08/17/2019 2:27 PM Age: 43 years old Clinical indication: /shortness of breath TECHNIQUE: Imaging protocol: XR of the chest Views: 1 view. COMPARISON: CHEST 1VIEW DX 01/06/2019 2:42 AM FINDINGS: Tubes, catheters and devices: None. Lungs: Moderate degree bilateral perihilar and basilar interstitial alveolar pulmonary edema versus infiltrates. Pulmonary alveolar opacities are most prominent within the lower right chest. Progression of pulmonary opacities is demonstrated. Pleural space: Small volume of pleural fluid is demonstrated on the right side. Heart/Mediastinum: Cardiac silhouette appears mildly enlarged. Bones/joints: No acute bony abnormality identified. The visualized aspects of the thoracic rib cage appears unremarkable. Other findings: This study is limited by patient's body habitus. IMPRESSION: 1. Small right pleural effusion. 2. Mild enlarged cardiac silhouette. 3. Findings most compatible with moderat e pulmonary edema versus infiltrates. Darrion Arizmendi MD On 08/17/2019 14:49:32; [id number] 08/17/2019 [facility] contrast CT Clinical Indication: Headache. Hypertensive. Comparison: CT head 06/29/2018. TECHNIQUE: CT images were obtained from the foramen magnum to the vertex without the use of intravenous contrast on a multidetector CT. Coronal and sagittal reconstructions were obtained. CT imaging performed at this location utilizes radiation dose optimization techniques which include one or more of the following: -Automated exposure control -Adjustment of the mA and/or kV accordin g to patient size -Use of iterative reconstruction [employer] ue CT Radiation Dose DLP 880.45 mGy-cm FINDINGS: BRAIN PARENCHYMA: The davies-white differentiation is preserved without CT evidence of acute territorial infarction. There is no mass effect, midline shift or edema. There are no intra-axial or extra-axial fluid collections, intraventricular or intraparenchymal hemorrhage. Atherosclerotic calcifications are seen of the cavernous segments of the internal carotid arteries. VENTRICLES: The ventricles are appropriate for the patient's stated age. There is no evidence of hydrocephalus. The basilar cisterns are within normal limits. ORBITS, MASTOIDS AND PARANASAL SINUSES: Mild bilateral ethmoid sinus mucosal thickening is seen. The visualized orbits are unremarkable. The mastoid air cells are clear. SKULL: There are no osseous abnormalities. If there is further concern for intracranial pathology or acute stroke, MRI of the brain may be performed for complete assessment. IMPRESSION: No acute intracranial hemorrhage or mass effect. No CT evidence of acute territorial infarction. SL: [id number] 01/06/2019 [facility] 1view DX CHEST RADIOGRAP H 1 VIEW INDICATION: Shortness of breath, - respiratory distress COMPARISON: Chest radiograph 07/18/2018 IMPRESSION: The lungs are underinflated. The left IJ hemodialysis catheter is grossly unchanged. The cardiac silhouette appears prominent, associated with probable mild pulmonary vascular congestion. There is mild right pleural effusion. No pneumothorax is visible. SL:16 01/06/2019 [facility] 1view DX Clinical indica tion: Chest pain - SOB/ESRD Comparison: Chest 1 view 06/25/2018 TECHNIQUE: AP chest FINDINGS: Lines, tubes and hardware: A left IJ dialysis catheter tip overlies the right atrium. Lungs and pleura: The lungs are clear. A small right pleural effusion is present. No appreciable pneumothorax. Heart and mediastinum: The cardiomediastinal silhouette is within normal limits. Bones: No acute bony abnormality is identified. IMPRESSION: Small right pleural effusion. SL: [email or web address] 07/18/2018 [facility] Brain wo contrast CT EXAM: CT BRAIN WITHOUT CONTRAST DATE: 06/29/2018 13:40 IMMUNOLOGY SPECIALIST INDICATION: - confusion, disorientation, slow to response verbally. ADDITIONAL INFORMATION: . COMPARISON: CT head of 11/07/2017. TECHNIQUE: Routine axial CT images of the brain were obtained. IV contrast: None. CT imaging performed at this location utilizes radiation dose optimization techniques which include one or more of the following: -Automated exposure control -Adjustment of the mA and/or kV accordin g to patient size -Use of iterative reconstruction [employer] ue CT Radiation Dose DLP 1105.68 mGy-cm FINDINGS: Motion artifact degrades image quality. Non-contrast images of the head demonstrate no edema, hemorrhage, mass lesion or other acute intracranial abnormality. Palafox-white matter distinction is preserved. The ventricles are normal. The basal cisterns and sulci are normal in size. Atherosclerotic calcification of the distal internal carotid arteries. The paranasal sinuses, orbits and mastoids are unremarkable. IMPRESSION: 1. Limited study as above. No definite a cute infarct or intracranial hemorrhage detected. If there is further concern for intracranial pathology or acute stroke, MRI of the brain may be performed for complete assessment. SL: [id number] 06/29/2018 [facility] Pelvis Complete US Clinical In dication: -Post menopausal bleeding Comparison: None US PELVIS Technique: Grayscale, color and Doppler transabdominal imaging of the pelvis was performed with standard technique. FINDINGS: UTERUS: The pelvic sonographic images show normal anteverted uterine contour and morphology. There is normal parenchymal echotexture. The endometrial stripe measures 17 mm in thickness. The uterus measures 9.2 x 4.7 x 5.1 cm in size. OVARIES: The ovaries are not well demonstrated. OTHER FINDINGS: The sonographic images show no free fluid in the pelvic cul-de-sac. There is diffuse bladder wall thickening noted. If there is further concern, followup pelvic sonography or MRI of the pelvis may be performed. IMPRESSION: 1. Limited examination due to overlying bowel gas. Unremarkable uterus. Ovaries not well demonstrated. 2. Bladder wall thickening which may be due to underdistention or represent cystitis. SL: [id number] 06/28/[address] DX EXAM: XR CHEST 1 VIEW DATE: 06/25/2018 20:06 IMMUNOLOGY SPECIALIST INDICATION: Shortness of breath. COMPARISON: 06/17/2018. TECHNIQUE: Frontal radiograph of the chest was obtained. FINDINGS: A left-sided dialysis catheter is unchanged in position. Interstitial and alveolar opacities are noted throughout the lungs. The cardiomediastinal silhouette is within normal limits. No acute osseous abnormality is noted. IMPRESSION: Redemonstration of interstitial and alveolar pulmonary edema. SL: [id number] 06/25/[address] DX EXAM: Chest x-r ay one view (frontal) HISTORY: - SOB. COMPARISON:11/05/2017 FINDINGS: Lines and tubes: Left approach double lumen catheter terminates over the right atrium. Mediastinum: The cardiomediastinal contours are unremarkable. Lungs and pleura: Fine hazy opacities are noted within the bilateral lung dillard along with left retrocardiac opacity which may represent a combination of moderate pulmonary edema and layering pleural effusions. Superimposed infiltrate is not excluded within the left lung base. No pneumothorax. SL: JONH 06/17/[address] DX Clinical Indica tion: Shortness of breath. Comparison: Chest radiograph 08/15/2017. FINDINGS: The frontal chest radiograph shows normal lung volumes. There is moderate pulmonary vascular congestion. Hazy opacities are seen within the right upper to midlung. Bilateral costophrenic angle blunting is noted. There is no definite pneumothorax. There is a right internal jugular vein dialysis catheter with the tip at the superior cavoatrial junction. The cardiac silhouette is mildly enlarged. The aorta is tortuous. Degenerative changes are noted within the visualized spine. IMPRESSION: Moderate pulmonary vascular congestion. Hazy opacities within the right upper to midlung, which may represent pulmonary edema, pneumonitis or atelectasis. ARIELLA: KPAJULIEN 09/16/[address] DX Clinical Indica tion: - SOB, h/p ESRD missed dialysis; Comparison: 06/27/2017 Technique: X-ray chest frontal projection FINDINGS: A right dialysis catheter is noted with its tip in the superior vena cava. There is no consolidation, pleural effusion or pneumothorax. The heart is normal in size. The mediastinum and marciano are unremarkable. The visualized bones and soft tissues are within normal limits. IMPRESSION: No consolidation or pulmonary congestion. SL: [id number] 08/15/2017 [facility] Abdomen/Pelvis wo IV contrast CT Clinical indication: Abdominal pain Comparison: CT abdomen pelvis 06/14/2017 TECHNIQUE: Volumetric CT acquisition of the abdomen and pelvis without intravenous contrast. Axial, coronal and sagittal reconstructions. IV contrast: None. Enteric contrast: None. DLP: 826.17 mGy-cm FINDINGS: Evaluation of the solid organs and vascular structures is limited without intravenous contrast. LOWER THORAX: Small right pleural effusion is present. Bibasilar groundglass airspace opacities are present, left greater than right. Interlobular septal thickening is seen. LIVER: The liver is unremarkable. BILIARY TREE: No intra- or extrahepatic biliary ductal dilation. GALLBLADDER: The gallbladder surgically absent. PANCREAS: The pancreas is unremarkable. SPLEEN: Spleen is normal in size. ADRENALS: Normal. KIDNEYS AND URETERS: No radiopaque renal or ureteral stones. No hydronephrosis. GASTROINTESTINAL TRACT: Stomach is unremarkable. The small bowel is normal in caliber. A moderate to large amount of stool is present in the colon. APPENDIX: Normal. PELVIS: There is chronic circumferential urinary bladder wall thickening. No CT abnormality of the reproductive organs. PERITONEUM AND RETROPERITONEUM: No ascites or free air. No other fluid collection. LYMPH NODES: No abdominal or pelvic lymphadenopathy. VASCULATURE: Abdominal aorta is normal in caliber. BONES: Degenerative disc disease is present at L5-S1. No significant change in appearance of sclerosis at the bilateral sacroiliac joint with erosive changes. SOFT TISSUES: A midline abdominal surgical scar is seen with a fat-containing periumbilical hernia. IMPRESSION: 1. Bibasilar groundglass opacities, lef t greater than right, with interlobular septal thickening, most likely representing pulmonary edema. 2. Small right pleural effusion. 3. Moderate to large colonic stool bienvenido en. 4. Chronic bladder wall thickening. 5. Unchanged appearance of small fat-co ntaining. The hernia. 6. 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 SL: [id number] 06/27/2017 [facility] Chest 1view DX Patient Name: Deneen LOPES UKAEGBU : 1975; Age: 41 years Female MR: [id number] Study: Chest 1view DX Order Time: 06/27/2017 6:56 AM IMMUNOLOGY SPECIALIST Clinical Indication: Chest pain - sob. COMPARISON: May 2017. March 2017. December 2016. December 05, 2016. FINDINGS: Views: 1 SUPPORT LINES: Right central line tip is in the superior vena cava right atrial junction. LUNGS: There is normal lung volume. There are no suspicious interstitial/airspace opacities. There are no pleural effusions. There is no pneumothorax. Stable moderate edematous change. MEDIASTINUM: The cardiac silhouette is enlarged. The trachea is midline. BONES: Mild thoracic spondylosis. IMPRESSION: Mild edematous change. SL: [id number] 06/27/2017 [facility] Chest 1view DX Clinical Indica tion: - sob. Comparison: April 12, 2017 FINDINGS: Frontal chest radiograph was obtained. The lungs are adequately inflated. Mild pulmonary vascular congestion is noted. Patchy opacities are noted within the lung bases, greater on the left. These may be due to pulmonary edema, atelectasis and/or consolidation. Tiny bilateral pleural effusions are noted. There is no pneumothorax. The right IJ tunneled hemodialysis catheter is unchanged. Cardiac silhouette is stable. The aorta is mildly tortuous. The bony structures are unremarkable. IMPRESSION: Mild pulmonary vascular congestion with patchy opacities in the lung bases, greater on the left. Patchy opacities may be due to pulmonary edema, atelectasis and/or consolidation. Clinical correlation is recommended. SL: [id number] 06/14/2017 [facility] Abdomen/Pelvis wo IV contrast CT Clinical Indication: - upper abd pain. Generalized abdominal pain began 2 hours ago Comparison: CT abdomen pelvis 04/12/2017 TECHNIQUE: Helical imaging was performed diaphragm through the symphysis with multiplanar reformations obtained. IV CONTRAST: None GI CONTRAST: None CT Radiation Dose: DLP = 837 mGy-cm FINDINGS: LUNG BASES: There is septal thickening at the lung bases. There are small layering pleural effusions. HEPATOBILIARY: The liver is normal. The gallbladder is surgically absent. SPLEEN: The spleen is normal in size. PANCREAS: The pancreas has a grossly normal noncontrast appearance. ADRENAL GLANDS: The adrenal glands are normal. KIDNEYS: No renal or ureteral calculus. No hydronephrosis. BOWEL: Evaluation of the bowel is limited without intravenous or oral contrast. The stomach is unremarkable. The bowel is normal in caliber. The appendix is normal. Moderate stool burden. RETROPERITONEUM/PERITONEUM: There is no free fluid. No free air. LYMPH NODES: No adenopathy. VASCULATURE: Abdominal aorta is normal in caliber. There are calcified phleboliths within the gonadal vasculature. There are calcified phleboliths within the pelvis. PELVIS: The bladder wall is mildly thickened similar to previous exam. Uterus and adnexa have an unremarkable noncontrast appearance. MUSCULOSKELETAL: There are degenerative changes at L5-S1. There is atrophy and diastases of the rectus musculature. There is a small fat-containing periumbilical hernia with surrounding soft tissue changes similar to the previous exam. There are chronic erosive changes at the sacroiliac joints. There is body wall edema. IMPRESSION: 1. Changes at the lung bases most sugge stive of interstitial edema with bilateral effusions 2. Moderate stool burden 3. Chronic bladder wall thickening 4. Unchanged ventral hernia 5. Chronic changes at the sacroiliac juan manuel ints suggestive of erosive arthritis SL: [id number] 06/14/2017 [facility] Abdomen/Pelvis wo IV contrast CT EXAM: CT ABDOMEN AND PELVIS WITHOUT CONTRAST DATE: 04/12/2017 4:56 AM IMMUNOLOGY SPECIALIST INDICATION: - abdominal pain, vomiting ADDITIONAL INFORMATION: None. COMPARISON: CT abdomen and pelvis without contrast from December 27, 2016.. TECHNIQUE: Volumetric CT acquisition of the abdomen and pelvis without intravenous contrast. Axial, coronal and sagittal reconstructions. IV contrast: None. Enteric contrast: None. DLP: 728 mGy-cm FINDINGS: Lines, tubes and hardware: None. Lower thorax: Small right and trace left pleural effusion with adjacent compressive subsegmental atelectasis. Liver: Normal. Biliary tree: No intra- or extrahepatic biliary ductal dilation. Gallbladder: Surgically absent. Postoperative clips project in the gallbladder fossa. Pancreas: Normal. Spleen: Normal. Adrenals: Normal. Kidneys and ureters: Bilateral kidneys and ureters are normal. Bladder: There is nonspecific bladder wall thickening without surrounding fat stranding. Reproductive organs: Uterus and adnexa are unremarkable. Gastrointestinal tract: Stomach: Normal. Small bowel: Normal. Colon: Normal. Appendix: Normal. Peritoneum, mesentery and retroperitoneum: No free air, ascites or loculated fluid. Lymph nodes: Normal. Vasculature: A 0.6 x 0.6 cm round calcification represents a gonadal and phlebolith. Bones: Degenerative changes are seen in the form of anterior osteophytes predominantly at L5-S1 and T9-T10. Soft tissues: Small fat-containing umbilical hernia. There is surrounding fat stranding around the umbilicus and the soft tissues overlying the lower thoracic and lumbar spines. IMPRESSION: 1. No renal or ureteral calculi. The 0. 6 cm calcification in the area of the UPJ represents a phleboliths in the gonadal vein. 2. Nonspecific bladder wall thickening. This can be correlated with urinalysis. 3. Small right and trace left pleural e ffusion with adjacent compressive subsegmental atelectasis. 4. Unchanged soft tissue thickening zechariah stephanie stranding surrounding the umbilicus. 04/12/2017 [facility] Chest 1view DX EXAM: XR CHEST 1 VIEW DATE: 04/12/2017 at 0330 hours INDICATION: sob COMPARISON: Chest radiograph at 01/09/2017 TECHNIQUE: AP chest FINDINGS: Lines, tubes and hardware: A right jugular dual-lumen hemodialysis catheter terminates in the mid to distal SVC without evidence of pneumothorax or intrathoracic complication following line placement. However, a supine portable view the chest is limited for that determination. Lungs and pleura: Probable small right pleural effusion blunts right costophrenic recess. The lungs are clear. Pulmonary vascularity is normal. Heart and mediastinum: The heart size is enlarged but unchanged. The mediastinal contours are normal. Bones: No acute bony abnormality is identified. IMPRESSION: 1. Probable small right pleural effusio n blunts right costophrenic recess. 2. A right jugular dual lumen hemodialy sis catheter terminates in the mid to distal SVC. UT SECTION: ER 04/12/2017 [facility] CVC insert tunnel w/-w/o port/pump age 5+ yrs VR Patient Name: MEENA LOPES UKAEGBU : 1975; Age: 41 years y/o Female MR: [id number] Study: CVC insert tunnel w/-w/o port/pump age 5+ yrs VR 01/16/2017 4:36 PM CDT Ordering Physician: Clinical Indication: Other- See Reason for Consult - powerline for IV anbx, h/o ckd; Comparison: None Total fluoroscopy time 16.4 seconds. Fluoroscopy dose 3.8 mGy Timeout performed prior to procedure. The procedure was performed utilizing maximal sterile barrier technique. Right internal jugular vein puncture with sonographic guidance. Right internal jugular vein was shown to be patent compressible suitable for access. Hard copy sonographic image of venous access was recorded in PACS. Following venous access, utilizing Seldinger technique a 6-Samoan peel-away sheath was placed. A dual-lumen cuffed 6-Samoan venous catheter was passed through a subcutaneous tunnel made in the right anterior chest wall. The cuff was positioned in the subcutaneous tract. The catheter was cut to appropriate length and inserted centrally through the peel-away sheath, positioned with its tip in the superior vena cava near the junction with the right atrium. Hard copy fluoroscopic image recorded. Catheter was sutured in place and an appropriate dressing applied. Catheter demonstrated good flow dynamics, and was flushed and saline locked. Procedure well-tolerated clinically. SL: [id number] 01/17/2017 [facility] Retroperitoneal Complete US Cl inical Indication: - persistent pyelonephritis Comparison: Renal ultrasound 01/04/2017 TECHNIQUE: Multiple longitudinal and transverse real time sonographic images of the kidneys and urinary bladder are obtained. FINDINGS: KIDNEY: The right kidney measures 8.9 cm. The left kidney measures 8.5 cm. Kidney suboptimally visualized. The renal cortical echogenicity is increased. There is no hydronephrosis, nephrolithiasis, or abnormal perinephric collections. BLADDER: Limited evaluation of the bladder which is incompletely distended. ASCITES: No ascites noted. IMPRESSION: No acute sonographic abnormalities of the kidneys. No hydronephrosis. Medical renal disease. 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 Lungs: The lungs are grossly clear. Mediastinum: The cardiac silhouette is mildly enlarged. Midline trachea. Bones and soft tissues: No acute abnormalities. IMPRESSION: Satisfactory position of the right IJ catheter. SL: [id number] 01/10/2017 [facility] CVC insert non-tunnel age 5+ yrs VR Patient Name: MEENA LOPES UKAEGBU : 1975; Age: 41 years Female MR: [id number] Study: CVC insert non-tunnel age 5+ yrs VR 01/10/2017 1:06 PM CDT PROCEDURE: Ultrasound-guided placement of a nontunneled right IJ central catheter CLINICAL INFORMATION: Need for IV access CONSENT: The procedure, risks, benefits and alternatives were discussed with the patient and written informed consent was obtained. A 'time out' was performed per protocol prior to the procedure. TECHNIQUE: water treatment operator: Dr. Perkins Preoperative diagnosis: Need for IV access Postoperative diagnosis: Same Fluoroscopy time: None Estimated blood loss: Minimal Pain control: 1% lidocaine was administered for local anesthesia. The patient's right neck was prepped and draped using maximum sterile barrier technique. Preprocedure ultrasound demonstrated a patent right internal jugular vein and an image stored in the medical record. The overlying skin was anesthetized with 1% lidocaine. Under sterile ultrasound guidance, an 18-gauge needle was advanced into the right internal jugular vein. Following placement of a 0.035 inch wire and tract dilatation, a 7 Samoan triple-lumen catheter (Arrow) was advanced over the wire. The wire was removed and the ports were flushed with saline. The catheter was affixed to the skin and sterile dressings applied. Patient tolerated the procedure well without immediate complication. IMPRESSION: Successful placement of a nontunneled right IJ central catheter. SL: [id number] 01/10/2017 [facility] Retroperitoneal Complete US Cl inical Indication: - Renal failure. to rule out obstructive uropathy Comparison: CT abdomen and pelvis 12/27/2016 TECHNIQUE: Multiple longitudinal and transverse real time sonographic images of the kidneys and urinary bladder are obtained. FINDINGS: KIDNEY: The right kidney measures 10.5 cm. The left kidney measures 10.9 cm. Suboptimal visualization of the kidneys due to patient's body habitus. The right renal collecting system is minimally prominent. No hydronephrosis on the left.. No calculi are identified. Right perinephric free fluid. The renal cortical echogenicity is increased. BLADDER: The bladder wall is thickened. ASCITES: No ascites noted. IMPRESSION: 1. Increased renal cortical echogenicity compatible with medical renal disease. Minimal right hydronephrosis. No left hydronephrosis. Examination limited by patient's body habitus. 2. Bladder wall thickening which may be due to incomplete distention or cystitis. SL: [id number] 01/04/2017 [facility] Abdomen/Pelvis wo IV contrast CT Abdomen/Pelvis wo IV contrast CT 41 years /o Female Clinical Indication: abdominal pain - Comparison: 12/13/2016 TECHNIQUE: Helical imaging was performed diaphragm through the symphysis with multiplanar reformations obtained. IV CONTRAST: None. GI CONTRAST: None. Radiation Dose: DLP = 847 mGy-cm FINDINGS: LOWER CHEST: The lung bases are clear. . SOLID ORGANS: The liver, spleen, pancreas, adrenal glands and kidneys are normal. The patient has had previous cholecystectomy. Although there is no significant hydronephrosis on the left, there is a calcification at the approximate level of the left ureteropelvic junction which measures 6 x 6.8 mm in cross-section. This was present without change on the previous examination of 12/13/2016 and may represent a phlebolith in the left gonadal vein. BOWEL: The bowel is within normal limits. The appendix is visualized and is within normal limits. PERITONEUM: No free intraperitoneal fluid or air. RETROPERITONEUM: No adenopathy. The aorta is normal. Some minor scarring or edema near the umbilicus is not significantly changed from prior study. PELVIS: No pelvic mass. The urinary bladder is remarkable for thickening of the bladder wall which is new when compared to the previous exam. The bladder is only partially distended. The uterus is deviated slightly to the left of midline. There is formed stool in the rectum consistent with mild constipation. The wall of the lower rectum appears slightly thickened/edematous. MUSCULOSKELETAL: The skeleton is remarkable for degenerative disc disease L5-S1 level. IMPRESSION: 1. Stable infiltrative changes in the pe riumbilical fat may represent scarring or mild inflammation, not significantly changed from previous exam. 2. Thickened appearance of the wall the urinary bladder is new since prior examination and suspicious for cystitis. 3. Moderate formed stool distends the re ctum with some mild thickening of the rectal wall inferiorly, suspicious for inflammation. ARIELLA: PENNY 12/27/2016 [facility] Stomach emptying NM Patient Na me: MEENA LOPES UKAEGBU : 1975; Age: 41 years y/o Female MR: [id number] Study: Stomach emptying NM date 12/15/2016. Clinical Indication: - concern for gastroparesis; Comparison: CT abdomen and pelvis dated 12/13/2016. TECHNIQUE: A gastric emptying study is performed using 1 mCi of technetium 99m sulfur colloid mixed with oatmeal. Anterior abdominal images were carried out for 4 hours. FINDINGS: There is delayed solid gastric emptying noted. The T-1/2 is 173 minutes (normal for solids < 90 minutes). There is progression of the radiotracer into bowel. IMPRESSION: 1. Delayed solid gastric emptying study as above. SL: [id number] 12/15/2016 [facility] Renal Stone CT Study: Renal St one CT 12/13/2016 7:26 PM CDT Patient Name: MEENA LOPES UKAEGBU MR: [id number] : 1975; Age: 41 years y/o Female Ordering Physician: Tommy Bueno MD Clinical Indication: - Generalized abdominal pain, [id number]-cm Comparison: 12/06/2016 TECHNIQUE: Multiple contiguous noncontrast transaxial CT images were obtained through the abdomen and pelvis. Sagittal and coronal reformatted images were prepared. The examination is mildly compromised by artifact related to large body habitus. CT ABDOMEN WITHOUT CONTRAST: BOWEL GAS PATTERN: General: Nonspecific nonobstructed bowel gas pattern. Appendix: Normal appendix without inflammatory change. Stomach: Normal for degree of distention. PERITONEUM AND MESENTERY: Free Air: No evidence of pneumoperitoneum. Free Fluid: No evidence of significant free fluid, loculated fluid, peripherally enhancing abscess, or hemorrhage. Mesenteric and peritoneal fat: Mild induration of the central mesenteric fat. Lymph Nodes: No lymphadenopathy or mass. RETROPERITONEUM: Abdominal Aorta: Normal caliber abdominal aorta without aneurysm or dissection. IVC: Normal caliber nonenhanced. Lymph Nodes: Multiple scattered subcentimeter in maximum shortness axis retroperitoneal lymph nodes. SOLID ORGANS: Liver: Normal size and morphology without discrete lesion. Gallbladder: Postoperative change of cholecystectomy. Biliary Tree: Normal without dilatation. Kidneys: Normal nonenhanced without nephrolithiasis, hydronephrosis, or discrete lesion. Mild left renal cortical lobulation or scarring. Left gonadal vein phlebolith near the left UPJ. Adrenal Glands: Normal nonenhanced without discrete lesion. Pancreas: Normal nonenhanced pancreas without discrete lesion. Minimal peripancreatic induration is questioned. Spleen: Normal nonenhanced without discrete lesion. VISUALIZED LOWER THORAX: Lung Bases: Minimal subsegmental atelectasis or scarring. Heart: Normal size heart. SOFT TISSUES: Stable mildly moderate induration and stranding seen in the periumbilical region and infraumbilical anterior abdominal wall suggesting scarring or inflammation. OSSEOUS STRUCTURES: No fracture, dislocation, or suspicious focal osseous lesion. CT PELVIS WITHOUT CONTRAST: URINARY BLADDER: Mildly to moderately overdistended. REPRODUCTIVE ORGANS: Normal nonenhanced uterus and adnexa. Stable small 1.4 cm low-attenuation left ovarian cyst. LYMPH NODES: Stable small to mildly prominent bilateral renal lymph nodes. FREE FLUID: No free pelvic fluid. SOFT TISSUES: No suspicious soft tissue lesion or abnormality. OSSEOUS STRUCTURES: No fracture, dislocation, or suspicious focal osseous lesion. IMPRESSION: 1. Limited nonenhanced examination demo nstrating a nonspecific nonobstructed bowel gas pattern. 2. Stable induration and stranding in t he periumbilical and infraumbilical region likely representing scarring or inflammation. 3. Question minimal peripancreatic ruma ration suggesting possible minimal acute pancreatitis. 4. Mild to moderately distended urinary bladder suggesting urinary retention. 5. Cholecystectomy. 6. Stable small left ovarian cyst. SL: TPAINTER-PC 12/13/2016 [facility] Abdomen complete US EXAM: US A BDOMEN COMPLETE DATE: 12/05/2016 11:47 PM CDT INDICATION: - post nikolai; becki COMPARISON: CT abdomen pelvis dated 12/06/2016. TECHNIQUE: Multiplanar grayscale and color Doppler ultrasound of the abdomen. FINDINGS: Liver: Craniocaudal length: 15.4 cm. Echogenicity: Normal. Surface: Normal. Mass (size and location): None. Main portal vein: Caliber: 0.9 cm. Flow: Hepatopetal. Bile ducts: Common bile duct diameter: 0.3 cm. Intrahepatic ducts: Normal. Gallbladder: Surgically absent. Pancreas: Proximal body and neck partially seen. Spleen: Size: 9.2 x 3.4 x 4.1 cm. Mass or focal lesion (size and location): None. Right kidney: Size: 12.1 x 4.4 x 5.9 cm. Hydronephrosis: None. Echogenicity: Increased. Calculi: None. Cysts/Masses: Small simple cyst of the right kidney in the lateral/superior pole without vascularity. Left kidney: Size: 9.4 x 3.9 x 5.1 cm. Hydronephrosis: None. Echogenicity: Increased. Calculi: None. Cysts/Masses: None. Abdominal aorta: Visible portions are normal. Inferior vena cava: Visible portions are normal. Free fluid: None. IMPRESSION: 1. Bilateral increased echogenicity of the kidneys, suggestive of underlying medical renal disease. 2. Small simple appearing cyst of the r ight kidney in the lateral/superior pole. 3. Cholecystectomy. 12/06/2016 [facility] Abdomen/Pelvis wo IV contrast CT EXAM: CT ABDOMEN AND PELVIS WITHOUT CONTRAST DATE: 12/05/2016 11:54 PM CDT INDICATION: - pancreatitis ADDITIONAL INFORMATION: None. COMPARISON: CT of the abdomen and pelvis without contrast of 10/23/2016 TECHNIQUE: Volumetric CT acquisition of the abdomen and pelvis without intravenous contrast. Axial, coronal and sagittal reconstructions. IV contrast: None. Enteric contrast: Portable contrast was given DLP: 1253 mGy-cm FINDINGS: Lines, tubes and hardware: None. Lower thorax: Limited scarring is visualized in the posterior lung bases. Liver: The liver is not enlarged. No hepatic mass is identified. Biliary tree: No intra- or extrahepatic biliary ductal dilation. Gallbladder: The gallbladder is surgically absent Pancreas: The pancreas is not enlarged. No pancreatic mass, pancreatic duct dilatation surrounding fat stranding parenchymal calcifications are evident. Spleen: Normal. Adrenals: Normal. Kidneys and ureters: Both kidneys demonstrate normal size. There is a wedge- shaped hypodensity in the right kidney interpolar region, which likely artifactual due to beam hardening from oral contrast. There is no hydronephrosis or obstructing calculus. There is a cortical thinning in the left kidney interpolar region. There is no perinephric fat stranding or dilatation of the ureters. Bladder: The bladder is mildly distended and demonstrate wall thickening. No surrounding fat stranding is seen. Reproductive organs: The uterus and ovaries are unremarkable. Gastrointestinal tract: There is a small hiatal hernia. No bowel obstruction or wall thickening is identified. Stomach: Normal. Small bowel: Normal. Colon: Uniform mild wall thickening of the descending colon may be related to nondistention. No mass or surrounding fat stranding is seen. Appendix: The appendix is visualized and contrast filled. Peritoneum, mesentery and retroperitoneum: No free air, ascites or loculated fluid. Lymph nodes: No enlarged or grossly abnormal intra-abdominal or retroperitoneal lymph nodes are seen. There is stable appearance of prominent inguinal lymph nodes, right greater than left. Vasculature: Normal. Bones: No acute abnormality. Mild multilevel spondylotic changes of the thoracolumbar spine with flowing syndesmophytes are again noted. There are advanced osteoarthritic changes of the sacroiliac joints with marked subchondral sclerosis and erosive changes, right greater than left. There is deformity of the left pubic body and mild pubic symphysis prominence. There is surrounding soft tissue swelling. Soft tissues: There is a nonobstructed fat-containing umbilical hernia There are stable subcutaneous fat changes in the left infraumbilical region which likely postsurgical. No complex fluid collection is seen to suggest abscess formation. IMPRESSION: 1. No CT evidence of pancreatitis, alth ough evaluation is limited without intravenous contrast. 2. Moderate circumferential bladder wal l thickening may be related to chronic cystitis. 3. Stable subcutaneous fat changes in t he left infraumbilical region likely postsurgical or inflammatory. No evidence of abscess formation. 4. Constellation of findings including erosive sacroiliitis, pubic symphysitis and flowing syndesmophytes may be related to spondyloarthropathy. RECOMMENDATIONS: None. 12/06/2016 [facility] Chest 1view DX EXAM: XR CHEST 1 VIEW DATE: 12/05/2016 4:38 PM CDT INDICATION: Evaluation for the bowel perforation COMPARISON: Last chest radiograph from 10/11/2016 TECHNIQUE: AP chest FINDINGS: Cardiac silhouette size is normal. Central pulmonary vascularity is within normal limits. Mediastinal and hilar contours are normal. Low lung volumes with bronchovascular crowding noted. Minimal bibasilar subsegmental atelectasis is noted. No airspace consolidation, pleural effusion, or pneumothorax present. No free air visible. Skeletal structures demonstrate no acute findings. IMPRESSION: Low lung lines with bronchovascular crowding. Minimal bibasilar subsegmental atelectasis. 12/05/2016 [facility] Abdomen/Pelvis wo IV contrast CT Clinical Indication: Status post hernia repair 2 weeks ago, lower abdominal pain. DLP: 1020 mGycm Comparison: None TECHNIQUE: Helical imaging was performed without injection of IV contrast, from the diaphragm through the symphysis with multiplanar reformations obtained. IV CONTRAST: No IV contrast was administered. GI CONTRAST: No oral contrast was administered. DLP: 1020 mGy-cm FINDINGS: LOWER CHEST: Dependent atelectasis is seen at the lung bases. LIVER: There are no gross masses or intrahepatic biliary ductal dilatation noted. BILIARY TREE: There is no significant biliary ductal dilatation. GALLBLADDER: The gallbladder is surgically absent, surgical clips are seen within the gallbladder fossa. PANCREAS: The pancreas is unremarkable. The pancreatic duct is normal in caliber. SPLEEN: The spleen is normal in size and there are no parenchymal abnormalities. ADRENALS: The right adrenal gland is unremarkable. The left adrenal gland is unremarkable. KIDNEYS: There is no evidence of renal or ureteral calculi. There is no evidence of hydronephrosis. Scarring is seen within the lower pole left kidney. BOWEL: There is no evidence of bowel obstruction. A moderate amount of fecal material is noted throughout the colon. APPENDIX: The appendix is within normal limits. PELVIS: There is moderate urinary bladder wall thickening. No evidence of pelvic mass is seen. PERITONEUM: There is no evidence for free intraperitoneal fluid or air. SOFT TISSUES: There is soft tissue swelling in the periumbilical region, which is most likely due to recent surgery. A lower abdominal midline incision scar is seen. LYMPH NODES: There are mildly prominent bilateral inguinal lymph nodes, which are most likely reactive in etiology. VASCULATURE: The abdominal aorta is normal in caliber. MUSCULOSKELETAL: Mild diastases of the pubic symphysis is seen with deformity left pubic bone. These findings are most likely due to an old injury. Degenerative changes of the sacroiliac joints and visualized spine are noted. IMPRESSION: 1. Soft tissue swelling and fat strandi ng in the periumbilical region, which may be due to prior surgery. Superimposed infectious process/cellulitis is not excluded. No evidence of abscess. 2. Moderate urinary bladder wall thicke rosalina, which may represent under distention or cystitis. Correlation with urinalysis requested. ARIELLA: CATALINA 10/23/2016 [facility] Abdomen/Pelvis wo IV contrast CT EXAM: CT ABDOMEN AND PELVIS WITHOUT CONTRAST DATE: 2016 at 2317 hours INDICATION: - questionable pancreatitis? lipase normal ADDITIONAL INFORMATION: None. COMPARISON: 10/11/2016 at 0118 hours TECHNIQUE: Volumetric CT acquisition of the abdomen and pelvis without intravenous contrast. Axial, coronal and sagittal reconstructions. IV contrast: None. Enteric contrast: None. DLP: 1271 mGy-cm FINDINGS: Lines, tubes and hardware: Cholecystectomy clips. Lower thorax: * Interval development of trace left pleural effusion with associated compressive atelectasis. * Right lung base is clear. Liver: Normal. Biliary tree: No intra- or extrahepatic biliary ductal dilation. Gallbladder: * Surgically absent. * Gallbladder fossa otherwise unremarkable. Pancreas: * Inflammatory changes and fluid about the pancreas have resolved. * No abnormalities by noncontrast CT. Spleen: Normal. Adrenals: Normal. Kidneys and ureters: Normal. Bladder: Normal. Reproductive organs: No CT abnormality. Gastrointestinal tract: Normal caliber. * Mild left/descending pericolonic thickening/edema has resolved. Appendix: Normal. Peritoneum, mesentery and retroperitoneum: Normal. No free air, ascites or loculated fluid. Lymph nodes: Normal. Vasculature: Normal. Bones: No acute abnormality. Soft tissues: * Postsurgical changes of periumbilical herniorrhaphy. Persistent subcutaneous fluid and loculated gas seen in the left midabdomen, likely postoperative in etiology. * Mild generalized edema. IMPRESSION: 1. Resolution of peripancreatic fluid a nd inflammatory changes. 2. Resolution of descending colon edema /thickening. 3. Interval development of trace left p leural effusion. 2016 [facility] Brain wo contrast CT EXAM: CT BRAIN WITHOUT CONTRAST DATE: 2016 INDICATION: Hypertensive, c/o of headache, not being able to speak normally COMPARISON: None TECHNIQUE: Routine axial images of the brain were obtained. IV contrast: None DISCUSSION: There is no hemorrhage or recent ischemic change. No edema, mass lesion, or extra-axial collection is evident. The ventricles and basal cisterns are normal. The calvarium and skull base are intact. Bilateral mastoid effusions are nonspecific. There is no distinct mass in the visualized portions of the nasopharynx. The visible paranasal sinuses and orbital globes are unremarkable. IMPRESSION: Negative. No hemorrhage or recent ischemic change 2016 [facility] Abdomen/Pelvis wo IV contrast CT EXAM: CT ABDOMEN AND PELVIS WITHOUT CONTRAST DATE: 10/11/2016 at 0118 hours INDICATION: Abdominal pain, acute - Patient with recent cholecystectomy and hernia repair, presenting with abdominal pain. ADDITIONAL INFORMATION: None. COMPARISON: 10/02/2016 at 0401 hours TECHNIQUE: Volumetric CT acquisition of the abdomen and pelvis without intravenous contrast. Axial, coronal and sagittal reconstructions. IV contrast: None. Enteric contrast: None. DLP: 1607 mGy-cm FINDINGS: Lines, tubes and hardware: Cholecystectomy clips. Lower thorax: Clear. Liver: Normal. Biliary tree: No intra- or extrahepatic biliary ductal dilation. Gallbladder: * Surgically absent. * Gallbladder fossa otherwise unremarkable. Pancreas: * Moderate stranding about an edematous pancreas, prominently noted about the pancreatic head (2/31) is most concerning for pancreatitis. * Small to moderate amount of peripancreatic fluid likely reactive. Spleen: Normal. Adrenals: Normal. Kidneys and ureters: Normal. Bladder: Normal. Reproductive organs: No CT abnormality. Gastrointestinal tract: Normal caliber. * Mild left/descending pericolonic edema may relate to localized colitis. Appendix: Normal. Peritoneum, mesentery and retroperitoneum: Normal. No free air, ascites or loculated fluid. Lymph nodes: Normal. Vasculature: Normal. Bones: No acute abnormality. Soft tissues: * Postsurgical changes of periumbilical herniorrhaphy. Small amount of fluid loculated gas seen in the left midabdomen (2/54), likely postoperative in etiology. * Moderate amount of surrounding soft tissue/fatty stranding in the region, also likely postoperative. * Mild generalized edema. IMPRESSION: 1. Acute pancreatitis. 2. Descending colitis. 3. Cholecystectomy. 4. Periumbilical herniorrhaphy with exp ected postsurgical changes. RECOMMENDATIONS: * Correlation with pancreatic enzymes. 10/11/2016 [facility] Chest 1view DX EXAM: XR CHEST 1 VIEW DATE: 10/11/2016 at 0047 hours INDICATION: Abd surgery, abd pain, upright for free air COMPARISON: Chest radiograph dated 10/04/2016 TECHNIQUE: AP upright chest FINDINGS: Lines and tubes: Interval removal of right jugular central venous catheter. Lungs and pleura: No pulmonary or pleural based abnormality is identified. Heart and mediastinum: The heart size is normal for technique. The mediastinal contours are normal. Bones: No acute bony abnormality is identified. Soft tissues: No subdiaphragmatic free air. IMPRESSION: No acute cardiopulmonary abnormality. UT SECTION: ER 10/11/2016 [facility] Renal vessels Doppler US Study : Renal vessels Doppler US 10/06/2016 1:18 PM CDT Patient Name: MEENA LOPES UKDARIANGBU MR: [id number] : 1975; Age: 40 years y/o Female Ordering Physician: Maria Elena Worthington DO Clinical Indication: Renal arterial stenosis. Comparison: None TECHNIQUE Multiple longitudinal and transverse real time sonographic images with Doppler analysis of the kidneys and urinary bladder are obtained. FINDINGS: KIDNEYS: The kidneys are normal in size with diffusely increased echotexture consistent with medical renal disease. No nephrolithiasis, hydronephrosis, or mass lesion is appreciated. Right kidney: Size not assessed. Left kidney: Size not assessed. BLADDER: Under distended and appropriately thick walled containing anechoic urine. Both ureteral jets are identified. Aorta and IVC: Never well-visualized. ASCITES: No free fluid is identified. RENAL DOPPLER: Abdominal Aorta: Normal waveform with peak systolic velocity 211 cm/s. Right kidney: Peak systolic velocity: Right main renal artery not visualized. MRA/AO Ratio: Unable to calculate. Arcuate artery resistive indices: 0.7-0.9 Venous flow: present. Left kidney: Peak systolic velocity: Left main renal artery not visualized. MRA/AO Ratio: Unable to calculate. Arcuate artery resistive indices: 0.7-0.9 Venous flow: present. IMPRESSION: 1. Limited quality examination demonstr ating diffusely increased renal echotexture consistent with medical renal disease. 2. The main renal arteries are never ab le to be demonstrated. 3. Increased resistive indices within t he arcuate arteries of both kidneys consistent with medical renal disease. SL: TPAINTER-PC 10/06/2016 [facility] Retroperitoneal Complete US Re troperitoneal Complete US 10/05/2016 1:24 PM CDT Ordering Physician: Tobias Carranza MD CLINICAL INDICATION: - observe for hydro thank you, do not clamp palomo catheter; COMPARISON: Abdominopelvic CT 3 days ago TECHNIQUE: Real-time, grayscale and color Doppler sonographic images of the kidneys and urinary bladder were obtained. FINDINGS: KIDNEY: The right kidney measures 10.5 x 4.6 x 5.2 cm. The left kidney measures 11.6 x 6.9 x 5.2 cm. Diffusely increased echogenicity of the kidneys is present. Either prominent right renal pyramids versus caliectasis especially in the superior renal pole is present. No hydronephrosis or mass is identified. BLADDER: Palomo catheter is present in the bladder. IMPRESSION: Medical renal disease. Negative for hydronephrosis. SL: [id number] 10/05/2016 [facility] Chest 2 views DX Study: CHEST, AP AND LATERAL Clinical Indication: Congestive heart failure, peripheral edema Comparison: Chest 10/02/2016 FINDINGS: Image quality is compromised by the large patient size. Lateral image is nondiagnostic. The cardiac silhouette is enlarged. Right internal jugular dialysis catheter terminates at the caval atrial junction. The lungs are incompletely inflated and appear slightly congested. No pneumonia or significant pleural effusion is seen. SL: [id number] 10/04/2016 [facility] Renal scan w vascular flow NM Patient Name: MEENA LOPES UKAEGBU : 1975; Age: 40 years y/o Female MR: [id number] Study: Renal scan w vascular flow NM 10/04/2016 8:43 AM CDT Clinical Indication: - r/o renovascular htn; lower abdominal pain. Nephrotic syndrome. Comparison: None TECHNIQUE: Renal scan is performed using 10.5 mCi of Tc 99m mag 3 injected intravenously in the neck central line. Posterior abdominal images were carried out for 30 minutes with initial dynamic blood flow images. FINDINGS: The radionuclide angiographic images show delayed perfusion to both kidneys. Percent perfusion to the left kidney is 55.1% and to the right kidney is 44.9%. Percent uptake to left kidney is 46.6% and to the right kidney is 53.4%. ERPF is calculated at 52.32 mL/min and for the right kidney 59.93 mL/min with a total ERPF of 112.25 mL/min. Time to peak was 28.5 minutes for left kidney and 30.5 minutes for the right kidney. The excretion curves showed continued slight upsloping to both kidneys. IMPRESSION: 1. Delayed perfusion to both kidneys. 2. Symmetrical poor excretion to both ki dneys as above. SL: CSODERSTROM-PC 10/04/2016 [facility] Chest 1 v for Placement DX Fito dy: Chest 1 v portable 10/02/2016 1817 hours Clinical Indication: Central line placement Comparison: Chest 09/07/2016 FINDINGS: Right internal jugular catheter terminates at the caval atrial junction. The cardiac silhouette is top normal in size. The lungs are incompletely inflated. No pneumonia, vascular congestion or pleural effusion is seen. SL: REEMA 10/02/2016 [facility] Abdomen/Pelvis wo IV contrast CT Study: Abdomen/Pelvis wo IV contrast CT 10/02/2016 2:44 AM CDT Clinical Indication: - lower abdominal pain. Comparison: Multiple CT studies back to 04/19/2016 with the most recent of 09/15/2016 TECHNIQUE: Helical imaging performed diaphragm through the symphysis. Axial, sagittal and coronal reformations are available. IV contrast: None. CT radiation dose: DLP = 1077 mGy-cm FINDINGS: LOWER CHEST: Limited visualization. No abnormalities. No pericardial effusion. SOLID ORGANS: Liver, spleen, and pancreas are within normal limits. Bilateral adrenal glands and kidneys are within normal limits without intrarenal stones or hydronephrosis. Cholecystectomy clips BOWEL: No bowel dilatation or bowel wall thickening. There is mild stranding of the regional fat planes of the descending colon. Early inflammatory/infectious regional colitis not excluded. Normal appearing appendix identified within right lower quadrant. PERITONEUM: No free intraperitoneal air or fluid. No stranding of the central mesentery. Stable fat-containing left periumbilical hernia with interval decrease of small fluid. RETROPERITONEUM: Abdominal aorta is normal caliber. No retroperitoneal adenopathy by size criteria. PELVIS: No pelvic mass. No pelvic free fluid. Urinary bladder is unremarkable. No pelvic adenopathy by size criteria. MUSCULOSKELETAL: No acute bony fracture. Stable degenerative changes of the bilateral SI joints. OTHER: None. IMPRESSION: 1. Mild stranding of regional fat planes of the descending colon which may represent early inflammatory/infectious regional colitis. Correlate clinically 2. Stable fat-containing left periumbili lincoln hernia with interval decrease of tiny fluid. SL: KAMARI 10/02/2016 [facility] Retroperitoneal Complete US Pa tient Name: MEENA Angulo UKAEGBU : 1975; Age: 40 years Female MR: [id number] Study: Retroperitoneal Complete US 09/16/2016 10:35 AM CDT CLINICAL INDICATION: - Evaluation for nephrotic syndrome, BUN/Cr 9. ADDITIONAL HISTORY: None COMPARISON: CT on 09/15/2016 TECHNIQUE: Grayscale and color sonographic evaluation of the kidneys was performed using standard technique. FINDINGS: The right kidney measures 12.6 cm in length. The left kidney measures 8.3 cm in length. Markedly increased renal echogenicity. Mild bilateral hydronephrosis. Diffuse bladder wall thickening. Small amount of echogenic intraluminal debris within the bladder. IMPRESSION: Markedly echogenic kidneys suggestive of medical renal disease. Mild bilateral hydronephrosis. Diffuse bladder wall thickening suspicious for cystitis. Other considerations would include bladder outlet obstruction or neurogenic bladder. SL: [id number] 09/16/2016 [facility] Abdomen/Pelvis wo IV contrast CT CT ABDOMEN AND PELVIS WITHOUT CONTRAST INDICATION: Generalized abdominal pain - abd pain / DLP 1080 mGycm COMPARISON: CT abdomen/pelvis 08/11/2016 DISCUSSION: ABDOMEN: There is no consolidation of the visible lung bases. Cholecystectomy clips are in place. The liver, spleen, pancreas, adrenal glands, and kidneys are grossly normal in morphology. The stomach and bowel loops, including the appendix, are grossly unremarkable. There is a stable fat-containing left paraumbilical hernia, measuring approximately 6.8 cm in greatest axial dimension. Once again, the hernia contains mild fluid and there is mild stranding of the herniated fat. There are no herniated bowel loops. Otherwise, no free fluid or abnormal fluid collections are seen. The abdominal aorta is normal in caliber. PELVIS: A Palomo catheter is in place. Although incompletely distended, the bladder wall appears diffusely thickened. Mild air is visible in the bladder lumen. The uterus and adnexa are grossly unremarkable. BONES: No acute bony abnormalities are seen. Lumbar spondylosis is noted. IMPRESSION: 1. A stable fat-containing hernia, assoc iated with mild fat stranding and fluid. The appearance suggests potential fat necrosis. There are no herniated bowel loops. 2. The thickened appearance of the bladd er wall suggests potential cystitis. SL:16 09/15/2016 [facility] Gallbladder US EXAM: US ABDOME N LIMITED DATE: 09/07/2016 11:15 AM CDT INDICATION: Abdominal pain, acute - Abdominal pain, acute ADDITIONAL INFORMATION: None. COMPARISON: 08/26/2016 TECHNIQUE: Multiplanar grayscale and color Doppler ultrasound of the right upper quadrant. FINDINGS: Liver: Craniocaudal length: 17.9 cm. Mildly enlarged. Echogenicity: Normal. Surface nodularity: None. Mass (size and location): None. Portal vein: Normal. Bile ducts: Common bile duct diameter: 0.53 cm. Intrahepatic ducts: Normal. Gallbladder: Gallbladder is only mildly distended. Gallstones: Tiny echogenic focus seen again in the gallbladder lumen indicating small gallstone. Gallbladder sludge: None. Gallbladder wall: 0.24 cm. Normal. Pericholecystic fluid: None. Sonographic Charles sign: Absent, however patient also received pain medication. Pancreas: Head and uncinate process: Not well seen. Body and tail: To the extent seen is unremarkable, distal body and tail are not well seen. Ascites: None. IMPRESSION: 1. Small gallstone within a mildly dist ended gallbladder seen again. No sonographic evidence for acute cholecystitis. 2. Mild hepatomegaly. 09/07/2016 [facility] Chest 1view DX EXAM: XR CHEST 1 VIEW DATE: 09/07/2016 11:18 AM CDT INDICATION: Abnormal chest sounds - Abnormal chest sounds COMPARISON: Chest x-ray 08/17/2016 TECHNIQUE: AP chest FINDINGS: Lines, tubes and hardware: None. Lungs and pleura: The lungs are clear. Costophrenic sulci are sharp. No evidence of pneumothorax on this semierect film. Heart and mediastinum: The heart size is normal for technique. The mediastinal contours are normal. Bones: No acute bony abnormality is identified. IMPRESSION: No acute cardiopulmonary abnormality. UT SECTION: ER 09/07/2016 [facility] Abdomen RUQ US EXAM: US ABDOME N LIMITED DATE: 08/26/2016 at 1306 hours INDICATION: Abdominal pain, acute - RUQ pain COMPARISON: Right upper quadrant ultrasound from 08/24/2016 TECHNIQUE: Multiplanar grayscale and color Doppler ultrasound of the right upper quadrant. FINDINGS: Liver: Craniocaudal length: 18.2 cm. Echogenicity: Increased. Surface: Normal. Mass (size and location): None. Portal vein: Normal. Bile ducts: Common bile duct diameter: 0.52 cm. Intrahepatic ducts: Normal. Gallbladder: Gallstones: Again seen is an echogenic focus near the neck of the gallbladder without significant shadowing. Gallbladder wall: 0.27 cm. Pericholecystic fluid: None. Sonographic Charles sign: Absent. Pancreas: Head and uncinate process: Normal. Body and tail: Not seen. Spleen: Normal. Right kidney: Size: 11.9 x 4.3 x 5.0 cm. Hydronephrosis: None. Echogenicity: Normal. Calculi: None. Cysts/Masses: None. Ascites: None. Other: None. IMPRESSION: 1. Cholelithiasis without ancillary fin dings of cholecystitis. 2. Mild hepatomegaly with hepatic steat osis. 3. Increased right renal cortical echog enicity compatible with medical renal disease. 08/26/2016 [facility] Gallbladder US EXAM: US ABDOME N LIMITED DATE: 08/24/2016 2340 hours INDICATION: pain - RUQ pain, known hx of gallstones COMPARISON: Right upper quadrant ultrasound dated 08/02/2016 TECHNIQUE: Multiplanar grayscale and color Doppler ultrasound of the right upper quadrant. FINDINGS: Liver: Craniocaudal length: 18.0 cm. Echogenicity: Increased. Surface: Normal. Mass (size and location): None. Portal vein: Normal. Bile ducts: Common bile duct diameter: 0.46 cm. Intrahepatic ducts: Normal. Gallbladder: Gallstones: No gallstones identified. Gallbladder sludge: Two echogenic foci seen near the gall bladder neck are identified without shadowing. Gallbladder wall: 0.21 cm. Pericholecystic fluid: None. Sonographic Charles sign: Absent. Pancreas: Head and uncinate process: Normal. Body and tail: Not seen. Spleen: The spleen measures 9.3 x 3.6 x 3.8 cm. Increased right renal cortical echogenicity is noted. Ascites: None. Other: None. IMPRESSION: 1. Persistent small gallbladder polyps versus gallbladder sludge balls near the neck. No evidence of cholecystitis. 2. Mild hepatomegaly with hepatic steat osis. 3. Increased right renal cortical echog enicity consistent with renal parenchymal disease. 08/24/2016 [facility] Chest 1view DX EXAM: Chest 1vi ew DX DATE: 08/17/2016 at 0212 hours INDICATION: upper GI bleed - upper GI bleed ADDITIONAL HISTORY: None. COMPARISON: Chest one view 07/15/2016. TECHNIQUE: Portable AP semierect chest with a total of 1 image(s). FINDINGS: Lines, tubes, devices: None. Lungs: The lung volumes are slightly diminished with mild bibasilar subsegmental atelectasis. Pleura: There is no pleural effusion or pneumothorax identified given the technique. Heart and mediastinum: The heart size is normal for technique. The pulmonary vasculature is normal. The mediastinal contours are normal. Bones: No acute bony abnormality is identified. Soft Tissue: The soft tissues are unremarkable. IMPRESSION: 1. Slightly diminished lung volumes wit h mild bibasilar subsegmental atelectasis. 08/17/2016 [facility] Abdomen/Pelvis wo IV contrast CT EXAM: CT ABDOMEN AND PELVIS WITHOUT CONTRAST DATE: 08/11/2016 2:19 AM CDT INDICATION: RLQ abdominal pain, concern for appendicitis - RLQ abdominal pain, concern for appendicitis ADDITIONAL INFORMATION: None. COMPARISON: 08/02/2016 TECHNIQUE: Volumetric CT acquisition of the abdomen and pelvis without the intravenous administration contrast. Axial, coronal and sagittal reconstructions. IV contrast: None. Oral contrast: None. DLP: 1645 mGy*cm FINDINGS: Lines and tubes: None. Lower thorax: No pleural effusions. No pericardial effusion. No obvious lung nodules at the bases. Liver: Normal. No obvious focal hepatic lesions given for the noncontrast technique. Biliary tree: No intra- or extrahepatic biliary ductal dilation. Gallbladder: Tiny calculus seen in the gallbladder neck region. Gallbladder otherwise is minimally distended and is unremarkable. Pancreas: Normal. No pancreatic ductal dilation. No obvious focal lesions. Spleen: Normal. No enlargement. No focal lesions. Adrenals: Normal. No adrenal nodules. Kidneys and ureters: Multifocal cortical scarring seen in both kidneys. No hydronephrosis. No nephrolithiasis. No ureteral dilations. Minimal prominence of superior pole calyx seen in the left kidney. Urinary bladder: Urinary bladder is well distended and shows diffuse wall thickening. Uterus: Uterus is anteverted and is grossly unremarkable. Ovaries: Both ovaries are visualized. No adnexal masses. Stomach: Stomach is well distended. There is small hiatal hernia. Duodenum: Duodenum is unremarkable without wall thickening. No duodenal diverticula seen. Small bowel: No small bowel dilation. No small bowel wall thickening. Terminal ileum is visualized and is unremarkable. Appendix: Normal appendix. Colon: Diverticulosis of colon seen without diverticulitis. Small stool burden seen in the colon. Peritoneum: No ascites or free air. No fluid collections. Lymph nodes: No enlarged retroperitoneal or pelvic or mesenteric lymph nodes by CT size criteria. Abdominal aorta: Abdominal aorta is normal in caliber without aneurysmal dilation. Iliac arteries: Iliac arteries are normal in caliber without dilation. IVC and iliac veins: Unremarkable noncontrast appearance of IVC and iliac veins. Bones: Multilevel disc and facet joint degenerations seen in the lumbar spine. Bilateral SI joint degeneration also seen. No suspicious lytic or blastic lesions seen within the bones. Abdominal wall: Large left periumbilical hernia seen again containing fat and tiny amount of fluid. Soft tissues: Mild body wall edema seen. IMPRESSION: 1. Interval resolution of peripancreati c fat stranding, peripancreatic and retroperitoneal fluid and right pleural effusion. 2. Normal appendix. 3. Persistent large fat-containing left periumbilical hernia also containing tiny amount of fluid. 4. Diverticulosis of colon without dive rticulitis. RECOMMENDATIONS: None. 08/11/2016 [facility] Abdomen/Pelvis wo IV contrast CT EXAM: CT ABDOMEN AND PELVIS WITH IV CONTRAST DATE: 08/02/2016 9:44 PM CDT INDICATION: Pain Post Trauma - abdominal pain n/v, hernia eval ADDITIONAL INFORMATION: None. COMPARISON: CT 04/19/2016 TECHNIQUE: Volumetric CT acquisition of the abdomen and pelvis after the intravenous administration contrast. Axial, coronal and sagittal reconstructions. Postcontrast phases: Venous and delayed. IV contrast: 100 mL Omnipaque 300 Oral contrast: None DLP: 1891 mGy-cm. FINDINGS: Lines and tubes: None. Visualized lower thorax: Small pleural effusions are present. Stomach and gastroesophageal junction:Unremarkable. Liver/biliary tree: Normal in contour and attenuation.No focal lesions. Gallbladder: No CT evidence of gallstones. Spleen: Normal. Adrenals: Normal. Pancreas: Pancreas has a normal noncontrast appearance. Mild peripancreatic and anterior perirenal fat stranding is present. Kidneys and ureters: No hydronephrosis or obvious masses. Bladder: Moderately distended. Reproductive organs: Small right adnexal hypodensity, likely a follicular cyst. The left adnexa is unremarkable. Gastrointestinal tract: Normal caliber.Normal appendix. Peritoneum and retroperitoneum: Small abdominal ascites is new from the prior study. Lymph nodes: No lymphadenopathy. Vessels:No significant abnormality. Soft tissues: Large fat-containing ventral abdominal wall hernia containing fluid not significantly changed from prior exam. Bones: No lytic or blastic lesions. Arthritic and erosive changes at the sacroiliac joints are again identified. IMPRESSION: 1. New mild fat stranding in free fluid in the peripancreatic and anterior perirenal space is nonspecific. Recommend correlation with serum lipase for pancreatitis. 2. Small volume ascites. 3. Large left fat and fluid containing ventral abdominal wall hernia. 4. Small right pleural effusion. Findings discussed with Dr. Strange at 11:53 PM on 08/02/2016. 08/02/2016 [facility] Gallbladder US EXAM: US ABDOME N LIMITED DATE: 08/02/2016 1922 hours INDICATION: RUQ pain, worsening, recent US stones w/o cholecystitis COMPARISON: Right upper quadrant ultrasound dated 07/27/2016 ADDITIONAL INFORMATION: Creatinine 2.5, alkaline phosphatase 150 TECHNIQUE: Multiplanar grayscale and color Doppler ultrasound of the right upper quadrant. FINDINGS: Liver: Craniocaudal length: 16.3 cm. Echogenicity: Normal. Surface: Normal. Mass (size and location): None. Portal vein: Normal. Bile ducts: Common bile duct diameter: 0.5 cm. Intrahepatic ducts: Normal. Gallbladder: Two nonshadowing, nonmobile echogenic foci are seen within the gallbladder body, measuring approximately 5 mm each. Gallstones: None. Gallbladder sludge: None. Gallbladder wall: 0.17 cm. Pericholecystic fluid: None. Sonographic Charles sign: Absent. Pancreas: Head and uncinate process: Normal. Body and tail: Not seen. Spleen: Normal. Right kidney: Size: 10.7 x 4.7 x 5.7 cm. Hydronephrosis: None. Echogenicity: Diffusely increased renal parenchymal echogenicity is seen. Calculi: None. Cysts/Masses: None. Ascites: Trace free fluid is seen in the subhepatic recess. Other: Small right pleural effusion is partially visualized. IMPRESSION: 1. Two small gallbladder polyps. No gal lstones identified. No evidence of cholecystitis. 2. Diffusely increased right renal pare nchymal echogenicity consistent with medical renal disease. 3. Mild hepatomegaly. 4. Trace ascites within the subhepatic recess. 5. Partially visualized small right ple ural effusion. 08/02/2016 [facility] Abdomen RUQ US EXAM: US ABDOME N LIMITED DATE: 07/27/2016 1233 INDICATION: pain - gallstones on BSUS ADDITIONAL INFORMATION: None. COMPARISON: Renal ultrasound July 04, 2016 TECHNIQUE: Multiplanar grayscale and color Doppler ultrasound of the right upper quadrant. FINDINGS: Liver: Craniocaudal length: 18.7 cm. Echogenicity: Normal. Surface nodularity: Normal. Mass (size and location): None. Portal vein: Normal. Bile ducts: Common bile duct diameter: 0.4 cm. Intrahepatic ducts: Normal. Gallbladder: Gallstones: Small gallstones noted. Gallbladder sludge: None. Gallbladder wall: 0.3 cm. Pericholecystic fluid: None. Sonographic Charles sign: Absent. Pancreas: Head and uncinate process: Normal. Body and tail: Not seen. Spleen: Craniocaudal length: 9.9 cm. Mass or focal lesion (size and location): None. Right kidney: Hydronephrosis: None. Upper pole caliectasis. Size: 11.8 x 4.3 x 4.9 cm. Echogenicity: Increased Mass/Stone/Cyst (size and location): None. Ascites: None. IMPRESSION: 1. Cholelithiasis without evidence of c holecystitis. 2. Increased echogenicity of the right kidney consistent with medical renal disease. 07/27/2016 [facility] Tibia fibula series DX EXAM: X R RIGHT TIBIA 2 VIEWS DATE: 07/23/2016 1:33 AM CDT. INDICATION: Evaluate stump for injury - Evaluate stump for injury. COMPARISON: Right tibia radiograph on 06/22/2016. TECHNIQUE: AP and lateral radiographs of the right tibia. FINDINGS: Status post below the knee amputation to the level of the right tibial and fibular mid shaft. No cortical erosion or periosteal reaction seen at the stump site to suggest acute osteomyelitis. Diffuse soft tissue swelling of the right leg. No radiopaque foreign body is detected. Postsurgical jeremiah overlie the anterior stump. IMPRESSION: 1. Status post below the knee amputatio n to the level of the right tibial and fibular mid shaft. 2. No radiographic evidence of acute os teomyelitis. An MRI would be more sensitive for this diagnosis if clinically warranted. 07/23/2016 [facility] Ext Lower Venous Doppler Bilat US EXAM: US BILATERAL LOWER EXTREMITY VENOUS DOPPLER DATE: 07/16/2016 2:08 AM CDT INDICATION: Embolism/occlusion lower extremity ADDITIONAL INFORMATION: Right B-K amputation COMPARISON: None. TECHNIQUE: Multiplanar grayscale, color Doppler and spectral Doppler ultrasound images of the bilateral lower extremity veins. DISCUSSION: Right Thigh Veins: Common Femoral: Patent. Femoral (SFV): Patent. Popliteal: Patent. Proximal Greater Saphenous: Patent. Deep Femoral Veins: Patent. Left Thigh Veins: Common Femoral: Patent. Femoral (SFV): Patent. Popliteal: Patent. Proximal Greater Saphenous: Patent. Deep Femoral Veins: Patent. IMPRESSION: 1. Normal. No deep venous thrombosis (D VT). 07/16/2016 [facility] Chest 1view DX EXAM: XR CHEST 1 VIEW DATE: 07/15/2016 3:51 PM CDT INDICATION: Dyspnea - SOB COMPARISON: Chest radiograph dated 07/04/2016 TECHNIQUE: AP chest FINDINGS: Low lung volumes with vascular crowding and bibasilar atelectasis. No focal consolidation. Cardiomediastinal silhouette is stable from the comparison. No pleural effusions or pneumothorax. No acute osseous abnormality. Soft tissues are within normal limits. IMPRESSION: Low lung volumes with vascular crowding and bibasilar atelectasis 07/15/2016 [facility] Retroperitoneal complete w Doppler US EXAM: US RENAL WITH DOPPLER DATE: 07/04/2016 at 2239 hours INDICATION: Renal insufficiency ADDITIONAL INFORMATION: 40-year-old female admitted on 07/03/2016 with subacute osteomyelitis. COMPARISON: Retroperitoneal ultrasound from March 31, 2016 TECHNIQUE: Multiplanar grayscale and color Doppler ultrasound of the kidneys, aorta, and urinary bladder. FINDINGS: Right kidney: Size: 11.8 x 4.1 x 4.2 cm. Hydronephrosis: None. Echogenicity: Increased. Calculi: None. Cysts/Masses: None. Left kidney: Unable to be visualized secondary to presence of bowel gas. Right Main Renal Artery: Patent. No elevated velocities. Right RA:Aorta Ratio: 0.40 Right Intrarenal/Arcuate Arteries: Patent. No parvus et tardus. Right Superior RI: 0.63 Right Middle RI: 0.64 Right Inferior RI: 0.61 Right main renal vein: Patent. Abdominal aorta: Proximal diameter: 1.74 cm PSV: 86 cm/s Bladder: Decompressed with Palomo catheter. Other: None. IMPRESSION: 1. Study limited by presence of bowel g as. Left kidney not seen and spectral Doppler evaluation not performed. 2. Increased echogenicity of the right kidney, consistent with intrinsic renal disease. 3. No renal Doppler/flow abnormalities within the right kidney. 07/04/2016 [facility] Chest 2 views DX EXAM: XR CHES T 2 views DATE: 07/03/2016 11:25 PM CDT INDICATION: Arrhythmias COMPARISON: 06/13/2016 TECHNIQUE: AP and lateral chest radiographs IMPRESSION: 1. Diminished lung volumes bilaterally. 2. Interval improvement in the previous ly seen patchy airspace opacities with slightly prominent lung reticulations suggestive of infection or pulmonary edema. 3. Costophrenic sulci are sharp. 4. Cardiomediastinal silhouette is norm al for technique. 5. No acute osseous abnormalities. 07/04/2016 [facility] Lung scan perf/vent Quant Diff FX NM EXAM: NM Pulmonary Ventilation and Perfusion Imaging DATE: 07/03/2016 6:14 PM CDT INDICATION: Tachycardia COMPARISON: VQ scan on 05/17/2016 at 1307 hours TECHNIQUE: After inhalation of 22 mCi of Xe-133 gas posterior images of the lungs were obtained. Subsequently, the patient was injected with 5 mCi of Tc-99m MAA and multiple static images of the lungs were obtained in different projections. FINDINGS: Ventilation images demonstrate symmetric radiotracer distribution in the bilateral lungs. There is subsequent washout of xenon gas with focal air trapping in the right upper lobe. Perfusion images demonstrate normal radiotracer uptake in the bilateral lungs. There are no segmental or subsegmental perfusion defects seen on perfusion images to suggest pulmonary embolism. IMPRESSION: Low probability for pulmonary embolism. 07/03/2016 [facility] Foot series DX EXAM: XR RIGHT KNEE 3 VIEWS EXAM: XR RIGHT TIBIA-FIBULA 2 VIEWS EXAM: XR RIGHT ANKLE 3 VIEWS EXAM: XR RIGHT FOOT 3 VIEWS DATE: 06/22/2016 12:28 AM IMMUNOLOGY SPECIALIST INDICATION: Pain Post Trauma; 40-year-old female with history of chronic osteomyelitis and Nykxtad-Hcazm-Rssqe disease of the right foot status post multiple procedures COMPARISON: Right lower extremity radiographs from 06/13/2016 TECHNIQUE: AP, lateral and oblique views of the right knee, AP and lateral views of the right tibia-fibula, AP, lateral and oblique radiographs of the right ankle, AP lateral and oblique views of the right foot. FINDINGS: Knee: No acute fracture or malalignment is identified. Mild tricompartmental osteophyte formation is seen. Small suprapatellar joint effusion. Tibia-fibula: Displaced medial malleolar fracture is new since the prior exam. Periosteal reaction and cortical irregularity seen at multiple locations of the distal tibial and fibular metadiaphyses, similar to the prior exam. Ankle: Chronic erosive changes noted at the tibiotalar joint. There is interval posterior dislocation. Chronic periosteal reaction is again noted along the distal tibia and fibula. Foot: As noted previously, there is amputation of the 1st ray at the level of the MTP joint. Collapse of the hindfoot with dorsal dislocation of the Chopart joint is again noted. There is extensive erosive changes involving multiple the tarsal bones (navicular and cuboid in particular). There is some chronic irregularity seen at the 5th metatarsal base, probably from prior fracture. Erosions at the 5th metatarsophalangeal joint again noted with chronic plantar subluxation. Heterotopic ossification seen about the ankle and hindfoot. Soft tissues: Severe soft tissue swelling is noted throughout the lower extremity. IMPRESSION: 1. Interval posterior dislocation of th e right tibiotalar joint, with associated displaced fracture of the medial malleolus. 2. 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 3. Chronic erosive changes, most predom inantly about the tibiotalar joint and hindfoot, likely related to neuropathic joint and/or chronic osteomyelitis. 4. Diffuse soft tissue swelling of the lower extremity. 5. Small amount of knee joint fluid. 06/22/2016 [facility] Tibia fibula series DX EXAM: X R RIGHT KNEE 3 VIEWS EXAM: XR RIGHT TIBIA-FIBULA 2 VIEWS EXAM: XR RIGHT ANKLE 3 VIEWS EXAM: XR RIGHT FOOT 3 VIEWS DATE: 06/22/2016 12:28 AM IMMUNOLOGY SPECIALIST INDICATION: Pain Post Trauma; 40-year-old female with history of chronic osteomyelitis and Kkitura-Ciqjz-Iudga disease of the right foot status post multiple procedures COMPARISON: Right lower extremity radiographs from 06/13/2016 TECHNIQUE: AP, lateral and oblique views of the right knee, AP and lateral views of the right tibia-fibula, AP, lateral and oblique radiographs of the right ankle, AP lateral and oblique views of the right foot. FINDINGS: Knee: No acute fracture or malalignment is identified. Mild tricompartmental osteophyte formation is seen. Small suprapatellar joint effusion. Tibia-fibula: Displaced medial malleolar fracture is new since the prior exam. Periosteal reaction and cortical irregularity seen at multiple locations of the distal tibial and fibular metadiaphyses, similar to the prior exam. Ankle: Chronic erosive changes noted at the tibiotalar joint. There is interval posterior dislocation. Chronic periosteal reaction is again noted along the distal tibia and fibula. Foot: As noted previously, there is amputation of the 1st ray at the level of the MTP joint. Collapse of the hindfoot with dorsal dislocation of the Chopart joint is again noted. There is extensive erosive changes involving multiple the tarsal bones (navicular and cuboid in particular). There is some chronic irregularity seen at the 5th metatarsal base, probably from prior fracture. Erosions at the 5th metatarsophalangeal joint again noted with chronic plantar subluxation. Heterotopic ossification seen about the ankle and hindfoot. Soft tissues: Severe soft tissue swelling is noted throughout the lower extremity. IMPRESSION: 1. Interval posterior dislocation of th e right tibiotalar joint, with associated displaced fracture of the medial malleolus. 2. 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 3. Chronic erosive changes, most predom inantly about the tibiotalar joint and hindfoot, likely related to neuropathic joint and/or chronic osteomyelitis. 4. Diffuse soft tissue swelling of the lower extremity. 5. Small amount of knee joint fluid. 06/22/2016 [facility] Ankle 3 views DX EXAM: XR RIGH T KNEE 3 VIEWS EXAM: XR RIGHT TIBIA-FIBULA 2 VIEWS EXAM: XR RIGHT ANKLE 3 VIEWS EXAM: XR RIGHT FOOT 3 VIEWS DATE: 06/22/2016 12:28 AM IMMUNOLOGY SPECIALIST INDICATION: Pain Post Trauma; 40-year-old female with history of chronic osteomyelitis and Zbwhjjn-Zzsij-Xvech disease of the right foot status post multiple procedures COMPARISON: Right lower extremity radiographs from 06/13/2016 TECHNIQUE: AP, lateral and oblique views of the right knee, AP and lateral views of the right tibia-fibula, AP, lateral and oblique radiographs of the right ankle, AP lateral and oblique views of the right foot. FINDINGS: Knee: No acute fracture or malalignment is identified. Mild tricompartmental osteophyte formation is seen. Small suprapatellar joint effusion. Tibia-fibula: Displaced medial malleolar fracture is new since the prior exam. Periosteal reaction and cortical irregularity seen at multiple locations of the distal tibial and fibular metadiaphyses, similar to the prior exam. Ankle: Chronic erosive changes noted at the tibiotalar joint. There is interval posterior dislocation. Chronic periosteal reaction is again noted along the distal tibia and fibula. Foot: As noted previously, there is amputation of the 1st ray at the level of the MTP joint. Collapse of the hindfoot with dorsal dislocation of the Chopart joint is again noted. There is extensive erosive changes involving multiple the tarsal bones (navicular and cuboid in particular). There is some chronic irregularity seen at the 5th metatarsal base, probably from prior fracture. Erosions at the 5th metatarsophalangeal joint again noted with chronic plantar subluxation. Heterotopic ossification seen about the ankle and hindfoot. Soft tissues: Severe soft tissue swelling is noted throughout the lower extremity. IMPRESSION: 1. Interval posterior dislocation of th e right tibiotalar joint, with associated displaced fracture of the medial malleolus. 2. 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 3. Chronic erosive changes, most predom inantly about the tibiotalar joint and hindfoot, likely related to neuropathic joint and/or chronic osteomyelitis. 4. Diffuse soft tissue swelling of the lower extremity. 5. Small amount of knee joint fluid. 06/22/2016 [facility] Knee 3 views DX EXAM: XR RIGHT KNEE 3 VIEWS EXAM: XR RIGHT TIBIA-FIBULA 2 VIEWS EXAM: XR RIGHT ANKLE 3 VIEWS EXAM: XR RIGHT FOOT 3 VIEWS DATE: 06/22/2016 12:28 AM IMMUNOLOGY SPECIALIST INDICATION: Pain Post Trauma; 40-year-old female with history of chronic osteomyelitis and Xrhxesj-Qgwtq-Ofjtu disease of the right foot status post multiple procedures COMPARISON: Right lower extremity radiographs from 06/13/2016 TECHNIQUE: AP, lateral and oblique views of the right knee, AP and lateral views of the right tibia-fibula, AP, lateral and oblique radiographs of the right ankle, AP lateral and oblique views of the right foot. FINDINGS: Knee: No acute fracture or malalignment is identified. Mild tricompartmental osteophyte formation is seen. Small suprapatellar joint effusion. Tibia-fibula: Displaced medial malleolar fracture is new since the prior exam. Periosteal reaction and cortical irregularity seen at multiple locations of the distal tibial and fibular metadiaphyses, similar to the prior exam. Ankle: Chronic erosive changes noted at the tibiotalar joint. There is interval posterior dislocation. Chronic periosteal reaction is again noted along the distal tibia and fibula. Foot: As noted previously, there is amputation of the 1st ray at the level of the MTP joint. Collapse of the hindfoot with dorsal dislocation of the Chopart joint is again noted. There is extensive erosive changes involving multiple the tarsal bones (navicular and cuboid in particular). There is some chronic irregularity seen at the 5th metatarsal base, probably from prior fracture. Erosions at the 5th metatarsophalangeal joint again noted with chronic plantar subluxation. Heterotopic ossification seen about the ankle and hindfoot. Soft tissues: Severe soft tissue swelling is noted throughout the lower extremity. IMPRESSION: 1. Interval posterior dislocation of th e right tibiotalar joint, with associated displaced fracture of the medial malleolus. 2. 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 3. Chronic erosive changes, most predom inantly about the tibiotalar joint and hindfoot, likely related to neuropathic joint and/or chronic osteomyelitis. 4. Diffuse soft tissue swelling of the lower extremity. 5. Small amount of knee joint fluid. 06/22/2016 [facility] Ext Lower Venous Doppler Unilat US EXAM: US RIGHT LOWER EXTREMITY VENOUS DOPPLER DATE: 06/13/2016 at 0756 hours INDICATION: Pain, Limb COMPARISON: Right lower extremity venous Doppler on 05/27/2016. TECHNIQUE: Multiplanar grayscale, color Doppler and spectral Doppler ultrasound of the right lower extremity veins. FINDINGS: Right Thigh Veins: Common Femoral: Patent. Femoral (SFV): Patent. Popliteal: Patent. Proximal Greater Saphenous: Patent. Deep Femoral Veins: Patent. Other: Several prominent lymph nodes in the right groin, measuring up to 0.9 cm in the short axis, with normal-appearing fatty marciano, are present. IMPRESSION: 1. No deep venous thrombosis (DVT) in t he right lower extremity. 2. Subcentimeter lymph nodes in the rig ht groin with normal fatty marciano are nonspecific. 06/13/2016 [facility] Chest 2 views DX EXAM: XR CHES T 2 VIEWS DATE: 06/13/2016 7:57 AM IMMUNOLOGY SPECIALIST INDICATION: Dyspnea COMPARISON: Chest radiograph dated May 29, 2016 TECHNIQUE: PA and lateral chest radiographs FINDINGS: Lines, tubes and hardware: None. Lungs and pleura: Lung volumes remain low with persistent vascular crowding and bibasilar streaky opacities. No new focal consolidation is identified. No pneumothorax is seen. The costophrenic sulci are sharp. Heart and mediastinum: The cardiac silhouette is normal in size and unchanged. The mediastinal contours are normal. Bones and soft tissues: No acute bony abnormality is identified. IMPRESSION: Persistently low lung volumes with vascular crowding and bibasilar streaky opacities most likely representing subsegmental atelectasis. No new focal consolidation. 06/13/2016 [facility] Tibia fibula series DX EXAM: X R RIGHT TIBIA-FIBULA 2 VIEWS EXAM: XR RIGHT ANKLE 3 VIEWS EXAM: XR RIGHT FOOT 3 VIEWS DATE: 06/13/2016 at 0732 hours INDICATION: Osteomyelitis with increased pain. ADDITIONAL INFORMATION: 40-year-old female with history of chronic osteomyelitis and Wdjqhkm-Wkitp-Lhzuu disease of the right foot status post multiple procedures. COMPARISON: Right foot and ankle radiographs dated May 25, 2016 and March 15, 2016. Right foot CT dated March 14, 2016. Right foot MRI dated March 17, 2016. TECHNIQUE: 2 views of the tibia-fibula, 3 views of the ankle, 3 views of the foot. FINDINGS: Tibia-fibula: * Periosteal reaction and cortical irregularity is seen in multiple locations around the distal tibial metadiaphysis and the fibular metadiaphysis. * Cortical irregularity is seen most prominently at the medial aspect of the mid fibular diaphysis. * Soft tissue irregularity in the medial calf is consistent with ulcer. * Soft tissue swelling seen throughout the leg. Ankle: * Increased periosteal reaction seen in the distal tibia. * Worsening of cortical erosions on both sides of the tibiotalar joint. * Soft tissue swelling is seen about the ankle. Foot: * Increased periarticular osteopenia at the 3rd through 5th tarsal-metatarsal joints with interval cortical destruction noted most prominently at the cubometatarsal, tarsometatarsal and 5th metatarsophalangeal articulations. * Interval resection of the distal most portion of the remaining second proximal phalanx. * Unchanged midfoot collapse and anterior subtalar dislocation. * Interval resection of the distal most portion of the remaining second proximal phalanx. * Soft tissue swelling seen about the foot. IMPRESSION: Worsening of osteomyelitis in the distal portion of the leg, ankle and foot. 06/13/2016 [facility] Ankle 3 views DX EXAM: XR RIGH T TIBIA-FIBULA 2 VIEWS EXAM: XR RIGHT ANKLE 3 VIEWS EXAM: XR RIGHT FOOT 3 VIEWS DATE: 06/13/2016 at 0732 hours INDICATION: Osteomyelitis with increased pain. ADDITIONAL INFORMATION: 40-year-old female with history of chronic osteomyelitis and Urlsmhl-Btubd-Rsnza disease of the right foot status post multiple procedures. COMPARISON: Right foot and ankle radiographs dated May 25, 2016 and March 15, 2016. Right foot CT dated March 14, 2016. Right foot MRI dated March 17, 2016. TECHNIQUE: 2 views of the tibia-fibula, 3 views of the ankle, 3 views of the foot. FINDINGS: Tibia-fibula: * Periosteal reaction and cortical irregularity is seen in multiple locations around the distal tibial metadiaphysis and the fibular metadiaphysis. * Cortical irregularity is seen most prominently at the medial aspect of the mid fibular diaphysis. * Soft tissue irregularity in the medial calf is consistent with ulcer. * Soft tissue swelling seen throughout the leg. Ankle: * Increased periosteal reaction seen in the distal tibia. * Worsening of cortical erosions on both sides of the tibiotalar joint. * Soft tissue swelling is seen about the ankle. Foot: * Increased periarticular osteopenia at the 3rd through 5th tarsal-metatarsal joints with interval cortical destruction noted most prominently at the cubometatarsal, tarsometatarsal and 5th metatarsophalangeal articulations. * Interval resection of the distal most portion of the remaining second proximal phalanx. * Unchanged midfoot collapse and anterior subtalar dislocation. * Interval resection of the distal most portion of the remaining second proximal phalanx. * Soft tissue swelling seen about the foot. IMPRESSION: Worsening of osteomyelitis in the distal portion of the leg, ankle and foot. 06/13/2016 [facility] Foot series DX EXAM: XR RIGHT TIBIA-FIBULA 2 VIEWS EXAM: XR RIGHT ANKLE 3 VIEWS EXAM: XR RIGHT FOOT 3 VIEWS DATE: 06/13/2016 at 0732 hours INDICATION: Osteomyelitis with increased pain. ADDITIONAL INFORMATION: 40-year-old female with history of chronic osteomyelitis and Vmozwsx-Ufxua-Umwdl disease of the right foot status post multiple procedures. COMPARISON: Right foot and ankle radiographs dated May 25, 2016 and March 15, 2016. Right foot CT dated March 14, 2016. Right foot MRI dated March 17, 2016. TECHNIQUE: 2 views of the tibia-fibula, 3 views of the ankle, 3 views of the foot. FINDINGS: Tibia-fibula: * Periosteal reaction and cortical irregularity is seen in multiple locations around the distal tibial metadiaphysis and the fibular metadiaphysis. * Cortical irregularity is seen most prominently at the medial aspect of the mid fibular diaphysis. * Soft tissue irregularity in the medial calf is consistent with ulcer. * Soft tissue swelling seen throughout the leg. Ankle: * Increased periosteal reaction seen in the distal tibia. * Worsening of cortical erosions on both sides of the tibiotalar joint. * Soft tissue swelling is seen about the ankle. Foot: * Increased periarticular osteopenia at the 3rd through 5th tarsal-metatarsal joints with interval cortical destruction noted most prominently at the cubometatarsal, tarsometatarsal and 5th metatarsophalangeal articulations. * Interval resection of the distal most portion of the remaining second proximal phalanx. * Unchanged midfoot collapse and anterior subtalar dislocation. * Interval resection of the distal most portion of the remaining second proximal phalanx. * Soft tissue swelling seen about the foot. IMPRESSION: Worsening of osteomyelitis in the distal portion of the leg, ankle and foot. 06/13/2016 [facility] Chest 1view DX EXAM: XR CHEST 1 VIEW DATE: 05/29/2016 7:22 PM IMMUNOLOGY SPECIALIST INDICATION: Chest pain COMPARISON: 05/27/2016 at 0359 hours TECHNIQUE: AP chest FINDINGS: Lines and tubes: None. Lungs and pleura: Low lung volume with vascular crowding and bibasilar atelectasis are again seen. Vague opacity of right infrahilar region has increased. This may represent increasing atelectasis or less likely early infection depending on clinical presentation. No pleural effusions are identified. Heart and mediastinum: The heart size is normal for technique. The mediastinal contours are normal. Bones: No acute bony abnormality is identified. IMPRESSION: 1. Low lung volume with vascular crowdin g and bibasilar atelectasis. 2. Since 05/27/2016, there is slight inc rease in right infrahilar opacity which may represent increasing atelectasis with or without superimposed early infection depending on clinical presentation. 05/29/2016 [facility] Ankle 3 views DX EXAM: XR RIGH T FOOT 3 VIEWS EXAM: XR RIGHT ANKLE 3 VIEWS DATE: 05/29/2016 at 1941 hours INDICATION: Pain and swelling COMPARISON: Right foot and right ankle x-rays on March 15, 2016. MRI right foot and tib-fib on March 17, 2016. TECHNIQUE: AP, lateral and oblique radiographs of the right foot. AP, lateral and oblique radiographs of the right ankle. FINDINGS: Right foot: Increased periarticular osteopenia is present at the carpal metacarpal joints of the right foot. Dorsal dislocation of the midfoot at talonavicular joint is again noted and it has increased since the comparison x-ray. There continues to be plantar angulation of the talus, unchanged. Amputation of the first and second toes is unchanged. There is new erosion of the of the tibial plafond . Bony erosion and indistinct margins of the plantar aspect of the anterior calcaneus and fifth metatarsal and fifth proximal phalanx are again seen. Abnormal diffuse periosteal reaction is present at the distal diaphysis of right tibia and fibula. Intracortical tunneling is seen at the medial border of the distal right tibia. There is diffuse soft tissue swelling of the right foot which is slightly increased since previous radiographs. No subcutaneous emphysema is identified. Right ankle: There continues to be widening of the tibiotalar joint, which is unchanged from the comparison ankle x-ray. No acute fracture or malalignment is seen. There is some progressive periosteal reaction seen at the lateral border of the distal right tibia and the medial border of the distal right fibula. There is intracortical tunneling seen at the medial border of distal right tibia. Magnetic resonance imaging of right foot may be utilized for further evaluation as it is more sensitive in the detection of osteomyelitis. IMPRESSION: 1. Increased soft tissue swelling of rig ht foot and ankle concerning for cellulitis. 2. Increased dorsal dislocation of the m idfoot at talonavicular joint and persistent widening of the tibiotalar joint. 2. New bony erosions of the ankle mortis e and increased abnormal periosteal reaction at the distal diaphysis of right tibia and to a lesser degree distal right fibula worrisome for progression of osteomyelitis and septic right ankle joint. 3. Chronic osteomyelitis of the anterior calcaneus and distal fifth metatarsal and proximal fifth phalanx. 05/29/2016 [facility] Foot series DX EXAM: XR RIGHT FOOT 3 VIEWS EXAM: XR RIGHT ANKLE 3 VIEWS DATE: 05/29/2016 at 1941 hours INDICATION: Pain and swelling COMPARISON: Right foot and right ankle x-rays on March 15, 2016. MRI right foot and tib-fib on March 17, 2016. TECHNIQUE: AP, lateral and oblique radiographs of the right foot. AP, lateral and oblique radiographs of the right ankle. FINDINGS: Right foot: Increased periarticular osteopenia is present at the carpal metacarpal joints of the right foot. Dorsal dislocation of the midfoot at talonavicular joint is again noted and it has increased since the comparison x-ray. There continues to be plantar angulation of the talus, unchanged. Amputation of the first and second toes is unchanged. There is new erosion of the of the tibial plafond . Bony erosion and indistinct margins of the plantar aspect of the anterior calcaneus and fifth metatarsal and fifth proximal phalanx are again seen. Abnormal diffuse periosteal reaction is present at the distal diaphysis of right tibia and fibula. Intracortical tunneling is seen at the medial border of the distal right tibia. There is diffuse soft tissue swelling of the right foot which is slightly increased since previous radiographs. No subcutaneous emphysema is identified. Right ankle: There continues to be widening of the tibiotalar joint, which is unchanged from the comparison ankle x-ray. No acute fracture or malalignment is seen. There is some progressive periosteal reaction seen at the lateral border of the distal right tibia and the medial border of the distal right fibula. There is intracortical tunneling seen at the medial border of distal right tibia. Magnetic resonance imaging of right foot may be utilized for further evaluation as it is more sensitive in the detection of osteomyelitis. IMPRESSION: 1. Increased soft tissue swelling of rig ht foot and ankle concerning for cellulitis. 2. Increased dorsal dislocation of the m idfoot at talonavicular joint and persistent widening of the tibiotalar joint. 2. New bony erosions of the ankle mortis e and increased abnormal periosteal reaction at the distal diaphysis of right tibia and to a lesser degree distal right fibula worrisome for progression of osteomyelitis and septic right ankle joint. 3. Chronic osteomyelitis of the anterior calcaneus and distal fifth metatarsal and proximal fifth phalanx. 05/29/2016 [facility] Ext Lower Venous Doppler Unilat US EXAM: US RIGHT LOWER EXTREMITY VENOUS DOPPLER DATE: 05/27/2016 4:03 AM IMMUNOLOGY SPECIALIST INDICATION: Pain, Limb ADDITIONAL INFORMATION: None. COMPARISON: February 19, 2016 TECHNIQUE: Multiplanar grayscale, color Doppler and spectral Doppler ultrasound of the lower extremity veins. DISCUSSION: Right Thigh Veins: Common Femoral: Patent. Femoral (SFV): Patent. Popliteal: Patent. Proximal Greater Saphenous: Patent. Deep Femoral Veins: Patent. IMPRESSION: 1. Normal. No deep venous thrombosis (D VT). No change from prior examination. 05/27/2016 [facility] Chest 1view DX EXAM: Chest 1vi ew DX DATE: 05/27/2016 3:59 AM IMMUNOLOGY SPECIALIST INDICATION: Chest pain ADDITIONAL HISTORY: 'Chest pain tonight and swelling to R leg x 4 days. Pt endorses N/V since onset. PMH: DM, CHF.' COMPARISON: Chest 1 view 05/17/2016. TECHNIQUE: Portable AP semierect chest with a total of 1 image(s). FINDINGS: Lines, tubes, devices: None. Lungs: The lung volumes are slightly diminished with mild bibasilar subsegmental atelectasis and vascular crowding. Pleura: There is no pleural effusion or pneumothorax identified given the technique. Heart and mediastinum: The heart size is top normal for technique, given diminished lung volumes. The pulmonary vasculature is normal. The mediastinal contours are normal. Bones: No acute bony abnormality is identified. Soft Tissue: The soft tissues are unremarkable. IMPRESSION: 1. Diminished lung volumes with mild bi basilar subsegmental atelectasis and vascular crowding. 05/27/2016 [facility] Lung ventilation/perfusion scan NM EXAM: NM Pulmonary Ventilation and Perfusion Imaging DATE: 05/17/2016 at 1307 hours INDICATION: Shortness of Breath COMPARISON: Chest radiograph on 05/17/2016 TECHNIQUE: After inhalation of 23.5 mCi of Xe-133 gas posterior images of the lungs were obtained. Subsequently, the patient was injected with 4.9 mCi of Tc-99m MAA and multiple static images of the lungs were obtained in different projections. FINDINGS: Ventilation images demonstrate diffuse mildly decreased radiotracer distribution in the right lung. Subsequently there is good washout of xenon gas from both lungs with no evidence of air trapping. Perfusion images demonstrate heterogeneous radiotracer uptake with diffuse decrease in the perfusion of the right lung and matched shows the ventilation images which could be due to pleural effusion or mild parenchymal lung disease. There are no segmental or subsegmental perfusion defects seen on perfusion images to suggest acute pulmonary embolism. IMPRESSION: 1. Low probability for acute pulmonary embolism. 2. Decreased ventilation and perfusion in the right lung could be due to a pleural effusion and/or mild diffuse parenchymal disease. 05/17/2016 [facility] Chest 1view DX EXAM: XR CHEST 1 VIEW DATE: 05/17/2016 1:50 AM IMMUNOLOGY SPECIALIST INDICATION: Dyspnea COMPARISON: Chest radiograph on 04/19/2016 TECHNIQUE: AP chest with patient rotated to the right. FINDINGS: Lung volumes are low. No pulmonary or pleural-based abnormality is identified. Vascular crowding is present. The heart size is normal for technique. No acute bony abnormality is identified. IMPRESSION: 1. Low lung volume associated with vascu lar crowding. 2. There is no acute cardiopulmonary dis ease nor other significant interval change in the overall appearance of the chest since 04/19/2016. 05/17/2016 [facility] Abdomen/Pelvis wo IV contrast CT EXAM: CT ABDOMEN AND PELVIS WITHOUT CONTRAST DATE: 04/19/2016 9:36 AM IMMUNOLOGY SPECIALIST INDICATION: Abdominal pain, acute ADDITIONAL INFORMATION: None. COMPARISON: None. TECHNIQUE: Volumetric CT acquisition of the abdomen and pelvis without the intravenous administration contrast. Axial, coronal and sagittal reconstructions. IV contrast: None. Oral contrast: None. DLP: 1302 mGy-cm FINDINGS: Disclaimer: Solid organs and vasculature are poorly evaluated without intravenous contrast. Lines and tubes: None. Lower thorax: Small bilateral pleural effusions, right greater than left. Tree-in-bud type micronodular opacities in the left lower lobe suggesting small airways infection or inflammation. Mild groundglass opacity in the right lower lobe may represent edema or pneumonitis. Gastroesophageal junction:Unremarkable. Liver: Liver appears mildly enlarged with diffuse low-attenuation likely representing steatosis.No large focal lesions allowing for limitations without intravenous contrast. Biliary tree: No obvious intra- or extrahepatic biliary ductal dilation allowing for limitations without intravenous contrast. Gallbladder: Grossly unremarkable. Pancreas: Mild fat stranding around the pancreatic body and head. Pancreas is otherwise unremarkable. Spleen: No splenomegaly. No obvious focal lesion. Adrenals: Unremarkable. Kidneys and ureters: Bilateral renal cortical scarring is noted. Fullness of the bilateral renal collecting systems/hydronephrosis, right greater than left. No CT evidence of obstructive uropathy. There is mild right perinephric fat stranding. Bladder: Moderately distended with mild circumferential wall thickening. Reproductive organs: No CT abnormality. Stomach and duodenum:Unremarkable. Gastrointestinal tract: Normal caliber.No evidence of bowel obstruction or inflammation.Normal appendix. Peritoneum and retroperitoneum: No ascites or free air. No organized fluid collection allowing for limitations without intravenous contrast. Vessels:Mild aortoiliac atherosclerotic change. No aneurysmal dilation Lymph nodes: Normal. Bones: Bilateral sacroiliitis, right greater than left. Arthritic changes in the spine with vertically oriented syndesmophyte. Old pubic rami fractures. Soft tissues: Moderate to large fat-containing umbilical hernia with small fluid and fat stranding in the hernia sac. Soft tissue stranding from prior abdominal midline incision. IMPRESSION: 1. Mild peripancreatic fat stranding is noted and could represent changes of pancreatitis. Correlation with serum lipase recommended. 2. Bilateral renal cortical scarring an d mild bilateral hydronephrosis, right greater than left. There is also mild right perinephric fat stranding with moderate distention of the urinary bladder and circumferential wall thickening. Recommend correlation with urinalysis to assess for underlying urinary tract infection. 3. Bilateral sacroiliitis, right greate r than left. 4. Small pleural effusions, right great er than left. Mild tree-in-bud type opacities in the left lower lobe suggesting small airways infection or inflammation. Ground glass opacities in the right lower lobe may represent edema or pneumonitis. 04/19/2016 [facility] Chest 2 views DX EXAM: XR CHES T 2 VIEWS DATE: 04/19/2016 0905 hours INDICATION: Chest pain COMPARISON: X-ray chest 2 views 03/26/2016 TECHNIQUE: AP and lateral radiographs of the chest FINDINGS: Lines and tubes: None. Lungs and pleura: Low lung volumes with vascular crowding and scattered atelectasis. No pulmonary or pleural based abnormality is identified. Heart and mediastinum: The heart size is normal for technique. The mediastinal contours are normal. Bones: No acute bony abnormality is identified. Multilevel osteophytes are identified in the thoracic spine. IMPRESSION: No acute radiographic abnormality. 04/19/2016 [facility] Retroperitoneal Complete US EX AM: US RENAL DATE: 03/31/2016 8:22 AM IMMUNOLOGY SPECIALIST INDICATION: Chronic renal failure ADDITIONAL INFORMATION: None. COMPARISON: Renal ultrasound 02/20/2016 TECHNIQUE: Multiplanar grayscale and color Doppler ultrasound of the kidneys and urinary bladder. FINDINGS: Right kidney: Hydronephrosis: None. Mild caliectasis in the superior pole, unchanged. Size: 11.4 x 4.9 x 5.3 cm. Echogenicity: Diffusely increased cortical echogenicity. Calculi: None. Cysts: None. Masses: None. Left kidney: Poorly visualized due to patient body habitus and bowel gas. The kidney roughly measures 7.2 x 4 x 3.6 cm. Bladder: Layering debris present within the lumen with marked diffuse bladder wall thickening. Note is also made of a small left pleural effusion. IMPRESSION: 1. Diffuse increased cortical echogenic ity of the right kidney, compatible with medical renal disease, along with mild superior pole caliectasis, unchanged from prior exam. Evaluation of the left kidney is limited by patient body habitus and bowel gas. 2. Diffuse bladder wall thickening with layering luminal debris. Correlate with urinalysis. 03/31/2016 [facility] Chest 2 views DX EXAM: XR CHES T 2 VIEWS DATE: 03/26/2016 12:35 PM IMMUNOLOGY SPECIALIST INDICATION: Coughing COMPARISON: 03/14/2016 TECHNIQUE: PA and lateral chest radiographs FINDINGS: Lines, tubes and hardware: None. Lungs and pleura: No consolidative lung lesions. No significant pleural effusions. Heart and mediastinum: normal. Bones: No acute bony abnormality is identified. IMPRESSION: 1. No acute cardiopulmonary abnormality. 03/26/2016 [facility] Tib Fib wo contrast MRI EXAM: MR RIGHT TIBIA WITHOUT CONTRAST EXAM: MR RIGHT FOOT WITHOUT CONTRAST INDICATION: Right leg and foot swelling. TECHNIQUE: Noncontrast multiplanar, multisequence magnetic resonance imaging of the right tibia and right foot. COMPARISON: Right foot radiographs 03/15/2016, right foot MRI 11/02/2015. FINDINGS: Five pin tracts are present within the right tibia diaphysis. There is mild reactive marrow edema of the right tibia diaphysis. No findings of osteomyelitis of the tibia. Diffuse edema of the right leg musculature with diffuse subcutaneous edema of the right leg. No focal fluid collection of the right leg. Dislocation of the Chopart joint again noted with plantar rotation of the talus. 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 There is extensive erosive change across the Chopart joint with slight increase in the large joint effusion and extensive synovitis communicating between the Chopart and tibiotalar joints. Exuberant marrow edema throughout the hindfoot and midfoot greatest center of t he Chopart joint. Extensive erosions with associated marrow edema at the fifth MTP joint. Amputations of the first and second digit without associated marrow edema. Extensive soft tissue edema of the foot. Diffuse increased signal of the intrinsic musculature of the foot. Tenosynovial fluid within the flexor tendon sheaths. IMPRESSION: 1. Chopart dislocation again noted with slight increase in the amount of erosion of bone marrow edema since 11/02/2015. 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 2. Slight increase in the large communic ating joint effusion and synovial proliferation between the Chopart and tibiotalar joints. 3. Tenosynovitis of the flexor tendons. 4. Findings consistent with septic arthr itis and osteomyelitis of the fifth MTP joint. 5. Pin tracts with mild reactive marrow edema in the tibia diaphysis. No overt tibial findings of osteomyelitis. 6. Multifocal osteonecrosis of the talus . 03/17/2016 [facility] Foot wo contrast MRI EXAM: MR RIGHT TIBIA WITHOUT CONTRAST EXAM: MR RIGHT FOOT WITHOUT CONTRAST INDICATION: Right leg and foot swelling. TECHNIQUE: Noncontrast multiplanar, multisequence magnetic resonance imaging of the right tibia and right foot. COMPARISON: Right foot radiographs 03/15/2016, right foot MRI 11/02/2015. FINDINGS: Five pin tracts are present within the right tibia diaphysis. There is mild reactive marrow edema of the right tibia diaphysis. No findings of osteomyelitis of the tibia. Diffuse edema of the right leg musculature with diffuse subcutaneous edema of the right leg. No focal fluid collection of the right leg. Dislocation of the Chopart joint again noted with plantar rotation of the talus. 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 There is extensive erosive change across the Chopart joint with slight increase in the large joint effusion and extensive synovitis communicating between the Chopart and tibiotalar joints. Exuberant marrow edema throughout the hindfoot and midfoot greatest center of t he Chopart joint. Extensive erosions with associated marrow edema at the fifth MTP joint. Amputations of the first and second digit without associated marrow edema. Extensive soft tissue edema of the foot. Diffuse increased signal of the intrinsic musculature of the foot. Tenosynovial fluid within the flexor tendon sheaths. IMPRESSION: 1. Chopart dislocation again noted with slight increase in the amount of erosion of bone marrow edema since 11/02/2015. 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 2. Slight increase in the large communic ating joint effusion and synovial proliferation between the Chopart and tibiotalar joints. 3. Tenosynovitis of the flexor tendons. 4. Findings consistent with septic arthr itis and osteomyelitis of the fifth MTP joint. 5. Pin tracts with mild reactive marrow edema in the tibia diaphysis. No overt tibial findings of osteomyelitis. 6. Multifocal osteonecrosis of the talus . 03/17/2016 [facility] Ankle 3 views DX EXAM: XR RIGH T FOOT 3 VIEWS EXAM: XR RIGHT ANKLE 3 VIEWS DATE: 03/15/2016 at 0957 and 1013 hours INDICATION: Joint deformities, Charcot neuropathy COMPARISON: Foot x-rays on 03/14/2016 and ankle and foot x-rays on 01/10/2016. TECHNIQUE: AP, lateral and oblique radiographs of the right foot AP, lateral and oblique radiographs of the right ankle FINDINGS: Right foot: The right mid foot pins have been removed. Again seen is dorsal dislocation of the bones of the forefoot with respect to the navicular bone. Plantar angulation of the head of the talus is unchanged. The amputations of the 1st and 2nd toes are unchanged. Osteomyelitis, with bony erosion and indistinct margins of the plantar aspect of the anterior calcaneus and the distal 5th metatarsal and proximal 5th phalanx are again seen. Diffuse soft tissue swelling of the right foot, without soft tissue emphysema, is again seen. Right ankle: Tibial fixation pins have been removed. The tibiotalar joint space is widened, but unchanged. No acute fracture or malalignment is seen at the ankle. Degenerative changes of the distal tibia and fibula are again noted. The ankle mortise is congruent. IMPRESSION: Unchanged osteomyelitis of the anterior calcaneus and distal 5th metatarsal and proximal 5th phalanx. Unchanged dorsal dislocation at the talonavicular joint. Unchanged widening of the right tibiotalar joint space. Removal of right midfoot pins. 03/15/2016 [facility] Foot series DX EXAM: XR RIGHT FOOT 3 VIEWS EXAM: XR RIGHT ANKLE 3 VIEWS DATE: 03/15/2016 at 0957 and 1013 hours INDICATION: Joint deformities, Charcot neuropathy COMPARISON: Foot x-rays on 03/14/2016 and ankle and foot x-rays on 01/10/2016. TECHNIQUE: AP, lateral and oblique radiographs of the right foot AP, lateral and oblique radiographs of the right ankle FINDINGS: Right foot: The right mid foot pins have been removed. Again seen is dorsal dislocation of the bones of the forefoot with respect to the navicular bone. Plantar angulation of the head of the talus is unchanged. The amputations of the 1st and 2nd toes are unchanged. Osteomyelitis, with bony erosion and indistinct margins of the plantar aspect of the anterior calcaneus and the distal 5th metatarsal and proximal 5th phalanx are again seen. Diffuse soft tissue swelling of the right foot, without soft tissue emphysema, is again seen. Right ankle: Tibial fixation pins have been removed. The tibiotalar joint space is widened, but unchanged. No acute fracture or malalignment is seen at the ankle. Degenerative changes of the distal tibia and fibula are again noted. The ankle mortise is congruent. IMPRESSION: Unchanged osteomyelitis of the anterior calcaneus and distal 5th metatarsal and proximal 5th phalanx. Unchanged dorsal dislocation at the talonavicular joint. Unchanged widening of the right tibiotalar joint space. Removal of right midfoot pins. 03/15/2016 [facility] Foot wo contrast CT EXAM: CT R IGHT FOOT WITHOUT CONTRAST INDICATION: Right foot pain. TECHNIQUE: Noncontrast helical CT imaging of the right foot with multiplanar reformats. Additional 3-D volume rendered images were obtained on scanner workstation. DLP: 551 mGy*cm COMPARISON: Right foot radiographs 03/14/2016. FINDINGS: Pin tracks are present in the distal tibia diaphysis. Mild irregular periosteal reaction is present along the diaphysis of the distal tibia and fibula. 2 K wires are placed across the talonavi cular joint. There is anterior rotation of the talus resulting in widening of the anterior tibiotalar joint to 1.5 cm with dorsal dislocation of the talonavicular and calcaneocuboidal joint. There is bending of the more lateral K wire, which extends into the posterior subtalar joint. The more medial K wire traverses the middle subtalar joint. There is diffuse increased sclerosis of the talus. Multiple screw tracks are present through the calcaneus and midfoot. There are extensive erosions involving the inferior surface of the calcaneus and proximal aspects of the navicular and cuboid. There is minimally displaced fracture through the anterior process of the calcaneus, which demonstrates bone remodeling without bridging callus. Mild irregular periosteal reaction scattered throughout the mid foot and hindfoot. Chronic erosion at the 5th metatarsal head. Partial amputation of the 1st and 2nd digits. Diffuse foot and leg soft tissue swelling. Soft tissue thickening and or fluid is present around the ankle and hindfoot. IMPRESSION: 1. Plantar rotation of the talus resulti ng in anterior widening of the tibiotalar joint. There is dorsal dislocation of the talonavicular and naviculocuneiform joints. 2. Diffuse increased sclerosis of the ta tommy, suspicious for avascular necrosis. 3. Two K wires placed across the talonav icular joint with bending of the more lateral K wire. 4. Hindfoot midfoot erosions, most promi nent along the plantar aspect of the calcaneus and proximal aspect of the cuboid and navicular, which may be related to prior fracture and hardware placement, although, infection cannot be excluded. 5. Diffuse soft tissue swelling with sof t tissue and/or fluid surrounding the bones of the hindfoot midfoot. The presence of focal fluid collections could be better assessed with postcontrast imaging. 03/14/2016 [facility] Foot series DX EXAM: XR RIGHT FOOT 3 VIEWS DATE: 03/14/2016 1:26 PM IMMUNOLOGY SPECIALIST INDICATION: Pain Post Trauma COMPARISON: Multiple previous radiographs and recent fluoroscopic spot images from 02/23/2016 TECHNIQUE: AP, lateral and oblique radiographs of the foot FINDINGS: Since the most recent comparison intraoperative fluoroscopic spot images, there is been loss of reduction of the show parts dislocation of the right foot. Specifically, the head of the talus is now angled toward the plantar surface of the foot while the navicular bone and rest of the midfoot and forefoot have 6 dislocated dorsally. One of 2 K wires has been and has a 38 degree angle across the fracture. There are 2 areas of definite osteomyelitis. One is in the plantar aspect of the anterior calcaneus which is deep to the site of a healed skin ulcer. The other is the head of the right fifth metatarsal and the adjacent base of the proximal phalanx of the right fifth digit. Indistinct cortical margin along the proximal surface of the cuboid bone may indicate an additional area of osteomyelitis Marked diffuse soft tissue swelling is seen throughout the entire foot and ankle. No soft tissue gas is seen. No metallic foreign bodies of the 2 K wires on the medial side of the foot. IMPRESSION: 1. Loss of reduction at the talonavicul ar joint now with recurrent show parts dislocation. 2. Bending of the lateral of the 2 K wi res that transfix the show parts joint 3. Definite areas of osteomyelitis at t he right fifth MTP joint on the plantar surface of the anterior right calcaneus. 4. Possible osteomyelitis involving the proximal surface of the cuboid bone. 03/14/2016 [facility] Chest 1view DX EXAM: XR CHEST 1 VIEW DATE: 03/14/2016 12:47 PM IMMUNOLOGY SPECIALIST INDICATION: Cough and fever COMPARISON: 02/22/2016 TECHNIQUE: AP chest FINDINGS: Lines and tubes: None. Lungs and pleura: No pulmonary or pleural based abnormality is identified. Heart and mediastinum: The heart size is normal for technique. The mediastinal contours are normal. Bones: No acute bony abnormality is identified. IMPRESSION: No acute cardiopulmonary abnormality. No significant change since comparison study 03/14/2016 [facility] Chest 1view DX EXAM: XR CHEST 1 VIEW DATE: 02/22/2016 3:00 AM CDT INDICATION: Chest tightness. FINDINGS: Comparison is made to February 18. The cardiomediastinal silhouette is stable. Alveolar opacities in the lungs bilaterally have improved but not completely resolved. No pleural effusions are seen. IMPRESSION: Alveolar opacities in the lungs have improved since February 18, which may indicate improvement of edema or pneumonia. 02/22/2016 [facility] Pelvis AP DX EXAM: XR PELVIS 1 VIEW EXAM: XR LUMBAR SPINE 5 VIEWS DATE: 02/21/2016 at 1703 hours INDICATION: Back pain COMPARISON: None available TECHNIQUE: A single AP supine radiograph of the pelvis, AP, lateral, coned lateral, RPO, LPO views of the lumbar spine FINDINGS: Pelvis: No acute fracture is identified. Pubic symphysis diastasis to 1.4 cm is present. Small osteophytes are present at the sacroiliac joints bilaterally. Sclerosis is present predominantly along the iliac margins of the sacroiliac joints bilaterally, with suspected cystic change in this region. Mild bilateral hip joint space narrowing is present. Lumbar spine: 5, lumbar type, nonrib bearing vertebral bodies are present. Vertebral body heights and disc heights are overall preserved with tiny vertebral body osteophytes. There is no spondylolysis or spondylolisthesis. The soft tissues are unremarkable. IMPRESSION: 1. Diastasis of the pubic symphysis to 1 .4 cm, of uncertain chronicity. 2. Mild narrowing of the bilateral hips. 3. Osteitis condensans ilii, with suspec savana cystic change of the sacroiliac joints. 4. Small lumbar spine vertebral body ost eophytes without vertebral body or disc height loss. 02/21/2016 [facility] Spine lumbar series DX EXAM: X R PELVIS 1 VIEW EXAM: XR LUMBAR SPINE 5 VIEWS DATE: 02/21/2016 at 1703 hours INDICATION: Back pain COMPARISON: None available TECHNIQUE: A single AP supine radiograph of the pelvis, AP, lateral, coned lateral, RPO, LPO views of the lumbar spine FINDINGS: Pelvis: No acute fracture is identified. Pubic symphysis diastasis to 1.4 cm is present. Small osteophytes are present at the sacroiliac joints bilaterally. Sclerosis is present predominantly along the iliac margins of the sacroiliac joints bilaterally, with suspected cystic change in this region. Mild bilateral hip joint space narrowing is present. Lumbar spine: 5, lumbar type, nonrib bearing vertebral bodies are present. Vertebral body heights and disc heights are overall preserved with tiny vertebral body osteophytes. There is no spondylolysis or spondylolisthesis. The soft tissues are unremarkable. IMPRESSION: 1. Diastasis of the pubic symphysis to 1 .4 cm, of uncertain chronicity. 2. Mild narrowing of the bilateral hips. 3. Osteitis condensans ilii, with suspec savana cystic change of the sacroiliac joints. 4. Small lumbar spine vertebral body ost eophytes without vertebral body or disc height loss. 02/21/2016 [facility] Retroperitoneal Complete US EX AM: US RENAL DATE: 02/19/2016 11:09 PM CDT INDICATION: Back pain ADDITIONAL INFORMATION: None. COMPARISON: Retroperitoneal ultrasound 12/02/2015 TECHNIQUE: Multiplanar grayscale and color Doppler ultrasound of the kidneys and urinary bladder. FINDINGS: Right kidney: Size: 11.7 cm in length. Hydronephrosis: Mild stable caliectasis. Echogenicity: Increased Calculi: None. Cysts: None. Masses: None. Left kidney: Size: 11.0 cm in length. Hydronephrosis: None. Echogenicity: Increased. Calculi: None. Cysts: None. Masses: None. Bladder: There is mild wall thickening. IMPRESSION: 1. Increased renal cortical echotexture consistent with medical renal disease. 2. Mild right stable caliectasis. 02/20/2016 [facility] Ext Lower Venous Doppler Bilat US EXAM: US BILATERAL LOWER EXTREMITY VENOUS DOPPLER DATE: 02/19/2016 7:14 PM CDT INDICATION: Embolism/occlusion lower extremity ADDITIONAL INFORMATION: None. COMPARISON: None. TECHNIQUE: Multiplanar grayscale, color Doppler and spectral Doppler ultrasound of the bilateral lower extremity veins. FINDINGS: Right Thigh Veins: Common Femoral: Obscured by bandages Femoral (SFV): Patent. Popliteal: Patent. Proximal Greater Saphenous: Obscured by bandages Deep Femoral Veins: Obscured by bandages Left Thigh Veins: Common Femoral: Patent. Femoral (SFV): Patent. Popliteal: Patent. Proximal Greater Saphenous: Patent. Deep Femoral Veins: Patent. IMPRESSION: 1. Normal. No deep venous thrombosis (D VT). 2. The right common femoral and profund a femoris deep veins are obscured by bandages. The right proximal greater saphenous superficial vein is obscured by bandages. 02/19/2016 [facility] Chest 1view DX EXAM: XR CHEST 1 VIEW DATE: 02/19/2016 5:47 PM CDT INDICATION: Chest pain COMPARISON: Chest radiograph on 11/29/2015 TECHNIQUE: AP chest FINDINGS: Right-sided PICC line is been removed. There is diffuse intersitial and alveolar edema seen bilaterally. No pleural-based abnormality is identified. The heart size is enlarged but stable. No acute bony abnormality is identified. IMPRESSION: 1. Cardiomegaly with diffuse alveolar an d intersitial edema, similar to prior exam on 11/29/2015. 2. Interval removal of right-sided PICC line. 02/19/2016 [facility] Ext Lower Venous Doppler Unilat US EXAM: US RIGHT LOWER EXTREMITY VENOUS DOPPLER DATE: 02/02/2016 5:22 AM CDT INDICATION: Pain, Limb ADDITIONAL INFORMATION: None. COMPARISON: None. TECHNIQUE: Multiplanar grayscale, color Doppler and spectral Doppler ultrasound of the right lower extremity veins. FINDINGS: Right Thigh Veins: Common Femoral: Patent. Femoral (SFV): Patent. Popliteal: Patent. Proximal Greater Saphenous: Patent. Deep Femoral Veins: Patent. Right Calf Veins: Anterior tibial: Patent. Posterior Tibial: Patent. IMPRESSION: 1. Normal. No deep venous thrombosis (D VT). 2. Subcutaneous edema is present at the level of the right calf. 02/02/2016 [facility] Ankle 3 views DX EXAM: XR RIGH T TIBIA-FIBULA 2 VIEWS EXAM: XR RIGHT ANKLE 3 VIEWS EXAM: XR RIGHT FOOT 3 VIEWS DATE: 01/10/2016 at 2000 hours, 2001 hours 2050 hours INDICATION: Pain Post Trauma COMPARISON: Right tibia, ankle, and foot series on 11/24/2015 TECHNIQUE: AP and lateral views of the right tibia-fibula, AP, lateral and oblique radiographs of the right ankle, AP lateral and oblique views of the right foot. DISCUSSION: Redemonstrated is an external fixator over the right foot and ankle with distracting pins at the proximal diaphysis and mid shaft of the right tibia. Evaluation of fine bone detail is limited due to the presence of an external fixator. Tibia-fibula: No acute fracture or malalignment is identified. Ankle: The ankle mortise remains congruent. No fracture or malalignment is identified The ankle mortise is congruent. Foot: The talonavicular and calcaneocuboid joints remain dislocated with slight increase distraction between head of talus and navicular bone.. Again noted is cortical erosion involving the inferior aspect of the calcaneus anteriorly. Redemonstrated is amputation of the 1st and 2nd toes through the proximal phalanx. The amputation stumps are unremarkable. Soft tissues: Subcutaneous edema is seen within the soft tissues circumferentially along the right tibia and fibular shafts. There is diffuse soft tissue swelling about the ankle and foot. The soft tissue ulcer about the mid foot is redemonstrated. IMPRESSION: 1. Persistent dislocation of the talona vicular and calcaneocuboid joints with slight increase in dorsal displacement and distraction between head of talus and navicular bone but otherwise no significant change in alignment when taking into account differences of beam centering, positioning and technique. 2. Redemonstrated is cortical erosive c hanges of the inferior aspect of the calcaneus anteriorly which could represent osteomyelitis or neuropathic changes. 3. Persistent diffuse soft tissue swell ing of the foot and ankle with ulceration of the plantar midfoot with subcutaneous edema also seen along the right tibia and fibular shafts. 4. Amputation of the 1st and 2nd toes w ith unremarkable stumps. 01/10/2016 [facility] Foot series DX EXAM: XR RIGHT TIBIA-FIBULA 2 VIEWS EXAM: XR RIGHT ANKLE 3 VIEWS EXAM: XR RIGHT FOOT 3 VIEWS DATE: 01/10/2016 at 2000 hours, 2002 hours 205 hours INDICATION: Pain Post Trauma COMPARISON: Right tibia, ankle, and foot series on 11/24/2015 TECHNIQUE: AP and lateral views of the right tibia-fibula, AP, lateral and oblique radiographs of the right ankle, AP lateral and oblique views of the right foot. DISCUSSION: Redemonstrated is an external fixator over the right foot and ankle with distracting pins at the proximal diaphysis and mid shaft of the right tibia. Evaluation of fine bone detail is limited due to the presence of an external fixator. Tibia-fibula: No acute fracture or malalignment is identified. Ankle: The ankle mortise remains congruent. No fracture or malalignment is identified The ankle mortise is congruent. Foot: The talonavicular and calcaneocuboid joints remain dislocated with slight increase distraction between head of talus and navicular bone.. Again noted is cortical erosion involving the inferior aspect of the calcaneus anteriorly. Redemonstrated is amputation of the 1st and 2nd toes through the proximal phalanx. The amputation stumps are unremarkable. Soft tissues: Subcutaneous edema is seen within the soft tissues circumferentially along the right tibia and fibular shafts. There is diffuse soft tissue swelling about the ankle and foot. The soft tissue ulcer about the mid foot is redemonstrated. IMPRESSION: 1. Persistent dislocation of the talona vicular and calcaneocuboid joints with slight increase in dorsal displacement and distraction between head of talus and navicular bone but otherwise no significant change in alignment when taking into account differences of beam centering, positioning and technique. 2. Redemonstrated is cortical erosive c hanges of the inferior aspect of the calcaneus anteriorly which could represent osteomyelitis or neuropathic changes. 3. Persistent diffuse soft tissue swell ing of the foot and ankle with ulceration of the plantar midfoot with subcutaneous edema also seen along the right tibia and fibular shafts. 4. Amputation of the 1st and 2nd toes w ith unremarkable stumps. 01/10/2016 [facility] Tibia fibula series DX EXAM: X R RIGHT TIBIA-FIBULA 2 VIEWS EXAM: XR RIGHT ANKLE 3 VIEWS EXAM: XR RIGHT FOOT 3 VIEWS DATE: 01/10/2016 at 2000 hours, 2002 hours 205 hours INDICATION: Pain Post Trauma COMPARISON: Right tibia, ankle, and foot series on 11/24/2015 TECHNIQUE: AP and lateral views of the right tibia-fibula, AP, lateral and oblique radiographs of the right ankle, AP lateral and oblique views of the right foot. DISCUSSION: Redemonstrated is an external fixator over the right foot and ankle with distracting pins at the proximal diaphysis and mid shaft of the right tibia. Evaluation of fine bone detail is limited due to the presence of an external fixator. Tibia-fibula: No acute fracture or malalignment is identified. Ankle: The ankle mortise remains congruent. No fracture or malalignment is identified The ankle mortise is congruent. Foot: The talonavicular and calcaneocuboid joints remain dislocated with slight increase distraction between head of talus and navicular bone.. Again noted is cortical erosion involving the inferior aspect of the calcaneus anteriorly. Redemonstrated is amputation of the 1st and 2nd toes through the proximal phalanx. The amputation stumps are unremarkable. Soft tissues: Subcutaneous edema is seen within the soft tissues circumferentially along the right tibia and fibular shafts. There is diffuse soft tissue swelling about the ankle and foot. The soft tissue ulcer about the mid foot is redemonstrated. IMPRESSION: 1. Persistent dislocation of the talona vicular and calcaneocuboid joints with slight increase in dorsal displacement and distraction between head of talus and navicular bone but otherwise no significant change in alignment when taking into account differences of beam centering, positioning and technique. 2. Redemonstrated is cortical erosive c hanges of the inferior aspect of the calcaneus anteriorly which could represent osteomyelitis or neuropathic changes. 3. Persistent diffuse soft tissue swell ing of the foot and ankle with ulceration of the plantar midfoot with subcutaneous edema also seen along the right tibia and fibular shafts. 4. Amputation of the 1st and 2nd toes w ith unremarkable stumps. 01/10/2016 [facility] Shoulder 1 view DX EXAM: XR RI GHT SHOULDER, 1 VIEW DATE: 12/25/2015 12:29 PM CDT INDICATION: Pain and swelling COMPARISON: Chest radiograph dated November 29, 2015. TECHNIQUE: A single frontal radiograph of the right shoulder was obtained. FINDINGS: Evaluation is limited given that only a single frontal radiograph of the shoulder was provided for interpretation. No definite fractures identified. No widening of the acromioclavicular space identified. A right PICC is identified, with the tip projecting over the caval junction. Mild interstitial opacities are likely consistent with minimal pulmonary edema. IMPRESSION: 1. Limited evaluation of the right shoul jimy with a single frontal radiograph of the chest. No definite fracture is identified. 2. Minimal interstitial opacities within the right lung may represent mild pulmonary edema. A dedicated chest radiograph may be obtained for further evaluation. SL: [id number] 12/25/2015 [facility] Retroperitoneal Complete US St udy: Retroperitoneal Complete US Clinical Indication: Renal insufficiency; Comparison: None FINDINGS: Image quality is compromised by the large patient size. KIDNEY: The right kidney measures 11.5 x 4.7 x 5.5 cm. The left kidney measures 10.9 x 5.7 x 5 cm. Each kidney demonstrates a normal sonographic texture. There is mild bilateral hydronephrosis. No mass, calculus or perinephric fluid collection is identified. BLADDER: The visualized urinary bladder is not remarkable. No ureteral jets are identified. IMPRESSION: Mild bilateral hydronephrosis. SL: [id number] 12/02/2015 [facility] Chest 1view DX Patient Name: Deneen SOL : 1975; Age: 40 years y/o Female MR: [id number] Study: Chest 1view DX 11/29/2015 12:35 PM CDT Ordering Physician: Jarad Hernandez MD Clinical Indication: Abnormal chest sounds; Comparison: 11/19/2015 chest radiograph The patient is rotated to the right. Stable position of the right PICC line. Development of diffuse parenchymal airspace opacities with relative sparing of the left upper lobe most consistent with pulmonary edema, multifocal pneumonia, and/or aspiration. Probable accompanying right pleural effusion. No large collections of pleural fluid on the left. Stable size of the cardiac silhouette. SL: [id number] 11/29/2015 [facility] Ankle 3 views DX EXAM: XR RIGH T ANKLE 3 VIEWS EXAM: XR RIGHT FOOT 3 VIEWS DATE: 11/24/2015 6:07 PM CDT INDICATION: Fracture ADDITIONAL CLINICAL INFORMATION: Status post multiplanar spatial frame external fixator placement of the right foot and ankle on 11/05/2015. History of right plantar abscess and calcaneal osteomyelitis. COMPARISON: XR right foot 3 views on 11/01/2015 at 2151 hours, XR right ankle 3 views on 11/01/2015 at 2052 hours, right foot magnetic resonance imaging without contrast on 11/02/2015 at 0722 hours. TECHNIQUE: AP, lateral and oblique radiographs of the right ankle. AP lateral and oblique views of the right foot. FINDINGS: Examination of the fine bony detail is limited due to the presence of an external fixator. The talonavicular and calcaneocuboid joint remains dislocated with unchanged alignment. The alignment of the ankle joint is normal. Diffuse soft tissue swelling of the foot and ankle is again seen and is unchanged. A wound VAC is in place over the previously seen mid foot plantar soft tissue ulceration. The previously seen area of hyperlucency at the mid foot plantar soft tissue is expanded, likely secondary to surgical debridement. The previously noted calcaneal erosive changes cannot be seen due to obstruction by the external fixator. The patient is again noted to be status post amputation of the 1st and 2nd toes through the 1st metatarsal phalangeal joints and the 2nd proximal phalangeal base. The amputation stumps appear normal without erosive changes. IMPRESSION: 1. Status post external fixator placemen t of the right foot and right ankle with unchanged dislocation of the the calcaneocuboid and talonavicular joint. 2. Cortical erosion at the plantar aspec t of the anterior calcaneus again noted with slight interval increased bone resorption in this area. 3. Unchanged soft tissue swelling of the ankle and foot. 4. Amputation of the 1st and 2nd toes wi th normal-appearing stumps. 11/24/2015 [facility] Foot series DX EXAM: XR RIGHT ANKLE 3 VIEWS EXAM: XR RIGHT FOOT 3 VIEWS DATE: 11/24/2015 6:07 PM CDT INDICATION: Fracture ADDITIONAL CLINICAL INFORMATION: Status post multiplanar spatial frame external fixator placement of the right foot and ankle on 11/05/2015. History of right plantar abscess and calcaneal osteomyelitis. COMPARISON: XR right foot 3 views on 11/01/2015 at 2151 hours, XR right ankle 3 views on 11/01/2015 at 2052 hours, right foot magnetic resonance imaging without contrast on 11/02/2015 at 0722 hours. TECHNIQUE: AP, lateral and oblique radiographs of the right ankle. AP lateral and oblique views of the right foot. FINDINGS: Examination of the fine bony detail is limited due to the presence of an external fixator. The talonavicular and calcaneocuboid joint remains dislocated with unchanged alignment. The alignment of the ankle joint is normal. Diffuse soft tissue swelling of the foot and ankle is again seen and is unchanged. A wound VAC is in place over the previously seen mid foot plantar soft tissue ulceration. The previously seen area of hyperlucency at the mid foot plantar soft tissue is expanded, likely secondary to surgical debridement. The previously noted calcaneal erosive changes cannot be seen due to obstruction by the external fixator. The patient is again noted to be status post amputation of the 1st and 2nd toes through the 1st metatarsal phalangeal joints and the 2nd proximal phalangeal base. The amputation stumps appear normal without erosive changes. IMPRESSION: 1. Status post external fixator placemen t of the right foot and right ankle with unchanged dislocation of the the calcaneocuboid and talonavicular joint. 2. Cortical erosion at the plantar aspec t of the anterior calcaneus again noted with slight interval increased bone resorption in this area. 3. Unchanged soft tissue swelling of the ankle and foot. 4. Amputation of the 1st and 2nd toes wi th normal-appearing stumps. 11/24/2015 [facility] Chest 1 v for Placement DX EXA M: XR CHEST 1 VIEW DATE: 11/19/2015 11:44 AM CDT INDICATION: Line Placement COMPARISON: Chest radiograph dated 11/11/2015 TECHNIQUE: AP chest FINDINGS: Lines, tubes and hardware: Redemonstration of right PICC line terminates at the atriocaval junction. Lungs and pleura: No consolidative lung lesions. No pleural effusions. No pneumothorax. Heart and mediastinum: normal for technique. Bones: No acute bony abnormality is identified. IMPRESSION: 1. Right PICC line with unchanged positi on. 2. No lung abnormalities. 11/19/2015 [facility] Chest 1view DX EXAM: XR CHEST 1 VIEW DATE: 11/11/2015 6:23 PM CDT INDICATION: PICC Line Placement. FINDINGS: Comparison is made to October 31. A new right-sided PICC line has its tip in the upper right atrium. The cardiomediastinal silhouette is stable. The lungs are clear. The costophrenic sulci are sharp, without effusions. IMPRESSION: New right-sided PICC line. 11/11/2015 [facility] Foot wo contrast MRI EXAM: MR RIGHT FOOT WITHOUT CONTRAST DATE: 11/02/2015 4:08 AM CDT INDICATION: Pain and swelling COMPARISON: Right foot series 11/01/2015 TECHNIQUE: Multiplanar, multisequence noncontrast imaging of the foot IV contrast: None. FINDINGS: Bones: There has been amputation of the 1st digit at the metatarsophalangeal joint and of the 2nd digit at the proximal phalanx base. No decreased T1 signal or edema is seen in the amputation stumps to suggest osteomyelitis at the amputation site. Erosive changes are seen along the inferior margin of the anterior calcaneus. Low T1 signal and edema is present within the mid and hindfoot involving the anterior superior calcaneus, talus, navicular, cuboid, and the cuneiforms. There is dorsal dislocation of the calcaneocuboid joint and talonavicular joints. Soft tissues: Multiple fluid collections are seen within the plantar muscles of the foot, the largest measuring 4.9 x 1.8 x 1.2 cm (series 6 image 11 and series 3 image 9). A draining sinus tract is seen from this fluid collection to the plantar skin surface of the foot (series 3 image 11). Extensive edema is seen around the foot. A joint effusion is seen at the ankle with internal debris. Tendons: Extensive tenosynovitis is seen within the tendon sheaths of the flexor hallucis longus, flexor digitorum, and tibialis posterior tendons. IMPRESSION: 1. 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 2. Low T1 signal and edema scattered thr oughout the mid and hindfoot, which may represent changes of osteomyelitis and/or neuropathic joint. 3. 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 4. Tenosynovitis of the flexor hallucis longus, flexor digitorum, and tibialis posterior tendons. 5. Post surgical change of partial amput ation of the 1st and 2nd digits, without evidence of osteomyelitis at the amputation sites. 11/02/2015 [facility] Ext Lower Venous Doppler Unilat US EXAM: US RIGHT LOWER EXTREMITY VENOUS DOPPLER DATE: 11/01/2015 at 2113 hours INDICATION: Pain, Limb ADDITIONAL INFORMATION: None. COMPARISON: None. TECHNIQUE: Multiplanar grayscale, color Doppler and spectral Doppler ultrasound of the right lower extremity veins. DISCUSSION: Right Thigh Veins: Common Femoral: Patent. Femoral (SFV): Patent. Popliteal: Patent. Proximal Greater Saphenous: Patent. Deep Femoral Veins: Patent. IMPRESSION: No deep venous thrombosis (DVT) in the right leg. 11/01/2015 [facility] Chest 1view DX EXAM: XR CHEST 1 VIEW DATE: 11/01/2015 8:32 PM CDT INDICATION: Fever COMPARISON: None TECHNIQUE: AP chest FINDINGS: No pulmonary or pleural-based abnormality is identified. Pulmonary vascularity is normal. The cardiomediastinal silhouette is normal for technique. No acute bony abnormality is identified. IMPRESSION: No acute cardiopulmonary abnormality. 11/01/2015 [facility] Foot series DX EXAM: XR RIGHT FOOT 3 VIEWS EXAM: XR RIGHT ANKLE 3 VIEWSf DATE: 11/01/2015 8:36 PM CDT INDICATION: Pain and swelling COMPARISON: None TECHNIQUE: AP, lateral and oblique radiographs of the right foot; AP, lateral and oblique radiographs of the right ankle FINDINGS: There is dislocation at the talonavicular and calcaneocuboid joints with dorsal displacement of the navicular and cuboid. Alignment of the ankle joint is normal. There is widening of the ankle joint space which is likely secondary to ankle joint effusion. There is diffuse soft tissue swelling of the ankle and foot with plantar soft tissue ulceration overlying the midfoot. There are erosive changes involving the inferior margin of the anterior calcaneus underlying the soft tissue ulceration. Small erosive changes also visualized at the tip of the medial malleolus. The patient is status post amputation of the 1st and 2nd toes through the 1st metatarsophalangeal joint and 2nd proximal phalangeal base. Amputation stump appears normal without erosive changes. Chronic appearing bony fragments are visualized at the 1st metatarsal head probably related to surgery. There is irregular calcification in the interosseous membrane between the distal tibia and fibula. Scattered heterotopic soft tissue calcification/ossification is noted at the ankle joint most pronounced posteriorly. Note made of calcaneal enthesophytes. IMPRESSION: 1. Dislocation at the calcaneocuboid and talonavicular joints 2. Diffuse soft tissue swelling of the a nkle and foot with plantar soft tissue ulceration along the mid foot. 3. Erosive changes along the inferior as pect of the anterior calcaneus underneath the soft tissue ulceration highly concerning for osteomyelitis. There is possible erosive changes of the tip of the medial malleolus. 4. Heterotopic soft tissue calcification /ossification at the ankle joint. Widening of the ankle joint likely from joint effusion. 5. Amputations through the 1st and 2nd t oes with normal appearance of the stumps. Recommend MRI with contrast for further evaluation. 11/01/2015 [facility] Ankle 3 views DX EXAM: XR RIGH T FOOT 3 VIEWS EXAM: XR RIGHT ANKLE 3 VIEWSf DATE: 11/01/2015 8:36 PM CDT INDICATION: Pain and swelling COMPARISON: None TECHNIQUE: AP, lateral and oblique radiographs of the right foot; AP, lateral and oblique radiographs of the right ankle FINDINGS: There is dislocation at the talonavicular and calcaneocuboid joints with dorsal displacement of the navicular and cuboid. Alignment of the ankle joint is normal. There is widening of the ankle joint space which is likely secondary to ankle joint effusion. There is diffuse soft tissue swelling of the ankle and foot with plantar soft tissue ulceration overlying the midfoot. There are erosive changes involving the inferior margin of the anterior calcaneus underlying the soft tissue ulceration. Small erosive changes also visualized at the tip of the medial malleolus. The patient is status post amputation of the 1st and 2nd toes through the 1st metatarsophalangeal joint and 2nd proximal phalangeal base. Amputation stump appears normal without erosive changes. Chronic appearing bony fragments are visualized at the 1st metatarsal head probably related to surgery. There is irregular calcification in the interosseous membrane between the distal tibia and fibula. Scattered heterotopic soft tissue calcification/ossification is noted at the ankle joint most pronounced posteriorly. Note made of calcaneal enthesophytes. IMPRESSION: 1. Dislocation at the calcaneocuboid and talonavicular joints 2. Diffuse soft tissue swelling of the a nkle and foot with plantar soft tissue ulceration along the mid foot. 3. Erosive changes along the inferior as pect of the anterior calcaneus underneath the soft tissue ulceration highly concerning for osteomyelitis. There is possible erosive changes of the tip of the medial malleolus. 4. Heterotopic soft tissue calcification /ossification at the ankle joint. Widening of the ankle joint likely from joint effusion. 5. Amputations through the 1st and 2nd t oes with normal appearance of the stumps. Recommend MRI with contrast for further evaluation. 11/01/2015 [facility] Consultation Notes No Data Provided for This Section Discharge Summaries No Data Provided for This Section History and Physicals No Data Provided for This Section Vital Signs Vital Sign Value Date Comments Source Temperature Oral (F) 99.2 F 08/18/2019 [facility] Systolic (mm Hg) 144 08/18/2019 [facility] Diastolic (mm Hg) 72 08/18/2019 [facility] Respitory Rate 16 08/18/2019 [facility] Systolic (mm Hg) 138 08/18/2019 [facility] Diastolic (mm Hg) 85 08/18/2019 [facility] Systolic (mm Hg) 120 08/18/2019 [facility] Diastolic (mm Hg) 67 08/18/2019 [facility] Temperature Oral (F) 99.9 F 08/18/2019 [facility] Temperature Oral (F) 99.5 F 08/18/2019 [facility] Respitory Rate 18 08/18/2019 [facility] Respitory Rate 16 08/18/2019 [facility] Height 160.02 cm 08/18/2019 [facility] Weight 118.636 08/18/2019 [facility] BMI Calculated 46.33 08/18/2019 [facility] Systolic (mm Hg) 136 08/18/2019 [facility] Diastolic (mm Hg) 79 08/18/2019 [facility] Temperature Oral (F) 97.7 F 08/18/2019 [facility] Respitory Rate 16 08/18/2019 [facility] Systolic (mm Hg) 95 08/18/2019 [facility] Diastolic (mm Hg) 50 08/18/2019 [facility] Systolic (mm Hg) 90 08/18/2019 [facility] Diastolic (mm Hg) 47 08/18/2019 [facility] Temperature Oral (F) 97.5 F 08/18/2019 [facility] Temperature Oral (F) 97.5 F 08/18/2019 [facility] Respitory Rate 18 08/18/2019 [facility] Respitory Rate 21 08/18/2019 [facility] BMI Calculated 40.27 08/17/2019 [facility] Height 170.18 cm 08/17/2019 [facility] BMI Calculated 40.27 08/17/2019 [facility] Weight 116.636 08/17/2019 [facility] Heart Rate 116 08/17/2019 [facility] Temperature Oral (F) 98.8 F 01/07/2019 [facility] Respitory Rate 16 01/07/2019 [facility] Systolic (mm Hg) 150 01/07/2019 [facility] Diastolic (mm Hg) 80 01/07/2019 [facility] Respitory Rate 15 01/07/2019 [facility] Systolic (mm Hg) 131 01/07/2019 [facility] Diastolic (mm Hg) 85 01/07/2019 [facility] Respitory Rate 15 01/07/2019 [facility] Systolic (mm Hg) 127 01/07/2019 [facility] Diastolic (mm Hg) 81 01/07/2019 [facility] Temperature Oral (F) 98.7 F 01/07/2019 [facility] Temperature Oral (F) 98.7 F 01/07/2019 [facility] Height 167.64 cm 01/07/2019 [facility] Heart Rate 92 01/07/2019 [facility] Heart Rate 99 01/07/2019 [facility] Heart Rate 112 01/07/2019 [facility] Height 167.64 cm 01/06/2019 [facility] BMI Calculated 40.6 01/06/2019 [facility] Weight 114.091 01/06/2019 [facility] Heart Rate 91 07/25/2018 [facility] Systolic (mm Hg) 111 07/25/2018 [facility] Diastolic (mm Hg) 66 07/25/2018 [facility] Respitory Rate 18 07/25/2018 [facility] Temperature Oral (F) 98.4 F 07/25/2018 [facility] Systolic (mm Hg) 102 07/25/2018 [facility] Diastolic (mm Hg) 68 07/25/2018 [facility] Respitory Rate 19 07/25/2018 [facility] Temperature Oral (F) 97.9 F 07/25/2018 [facility] Heart Rate 69 07/25/2018 [facility] Respitory Rate 18 07/25/2018 [facility] Heart Rate 97 07/25/2018 [facility] Systolic (mm Hg) 135 07/25/2018 [facility] Diastolic (mm Hg) 73 07/25/2018 [facility] Temperature Oral (F) 98.0 F 07/25/2018 [facility] Height 170.18 cm 07/19/2018 [facility] Weight 113.182 07/19/2018 [facility] BMI Calculated 39.08 07/19/2018 [facility] Height 170.18 cm 07/19/2018 [facility] Weight 113.182 07/19/2018 [facility] BMI Calculated 39.08 07/19/2018 [facility] Systolic (mm Hg) 131 07/02/2018 [facility] Diastolic (mm Hg) 96 07/02/2018 [facility] Respitory Rate 16 07/02/2018 [facility] Heart Rate 88 07/02/2018 [facility] Temperature Oral (F) 98.7 F 07/02/2018 [facility] Respitory Rate 16 07/02/2018 [facility] Systolic (mm Hg) 123 07/02/2018 [facility] Diastolic (mm Hg) 85 07/02/2018 [facility] Temperature Oral (F) 98.3 F 07/02/2018 [facility] Temperature Oral (F) 98.8 F 07/02/2018 [facility] Respitory Rate 18 07/02/2018 [facility] Systolic (mm Hg) 109 07/02/2018 [facility] Diastolic (mm Hg) 67 07/02/2018 [facility] Heart Rate 80 07/02/2018 [facility] Heart Rate 84 07/02/2018 [facility] Weight 119.1 06/26/2018 [facility] BMI Calculated 41.12 06/26/2018 [facility] Height 170.18 cm 06/26/2018 [facility] Weight 108.636 06/26/2018 [facility] BMI Calculated 37.51 06/26/2018 [facility] Height 170.18 cm 06/26/2018 [facility] Respitory Rate 24 06/23/2018 [facility] Heart Rate 94 06/23/2018 [facility] Systolic (mm Hg) 196 06/23/2018 [facility] Diastolic (mm Hg) 96 06/23/2018 [facility] Systolic (mm Hg) 161 06/23/2018 [facility] Diastolic (mm Hg) 92 06/23/2018 [facility] Weight 113.636 06/23/2018 [facility] BMI Calculated 39.24 06/23/2018 [facility] Height 170.18 cm 06/23/2018 [facility] Temperature Oral (F) 100.2 F 06/23/2018 [facility] Respitory Rate 25 06/23/2018 [facility] Heart Rate 96 06/23/2018 [facility] Systolic (mm Hg) 156 06/19/2018 [facility] Diastolic (mm Hg) 110 06/19/2018 [facility] Respitory Rate 14 06/19/2018 [facility] Temperature Oral (F) 98.8 F 06/19/2018 [facility] Systolic (mm Hg) 177 06/19/2018 [facility] Diastolic (mm Hg) 101 06/19/2018 [facility] Respitory Rate 13 06/19/2018 [facility] Systolic (mm Hg) 162 06/19/2018 [facility] Diastolic (mm Hg) 94 06/19/2018 [facility] Respitory Rate 13 06/19/2018 [facility] Temperature Oral (F) 99.4 F 06/19/2018 [facility] Temperature Oral (F) 99.2 F 06/19/2018 [facility] Weight 111.3 06/17/2018 [facility] Heart Rate 115 06/17/2018 [facility] Weight 111.364 06/17/2018 [facility] Height 170.18 cm 06/17/2018 [facility] BMI Calculated 38.45 06/17/2018 [facility] Heart Rate 111 06/17/2018 [facility] Temperature Oral (F) 97.6 F 11/12/2017 [facility] Systolic (mm Hg) 109 11/12/2017 [facility] Diastolic (mm Hg) 69 11/12/2017 [facility] Heart Rate 77 11/12/2017 [facility] Respitory Rate 18 11/12/2017 [facility] Respitory Rate 18 11/12/2017 [facility] Systolic (mm Hg) 113 11/12/2017 [facility] Diastolic (mm Hg) 73 11/12/2017 [facility] Heart Rate 79 11/12/2017 [facility] Temperature Oral (F) 98.3 F 11/12/2017 [facility] Systolic (mm Hg) 123 11/12/2017 [facility] Diastolic (mm Hg) 78 11/12/2017 [facility] Respitory Rate 18 11/12/2017 [facility] Heart Rate 79 11/12/2017 [facility] Temperature Oral (F) 98.0 F 11/12/2017 [facility] BMI Calculated 35.88 11/06/2017 [facility] Weight 103.9 11/06/2017 [facility] Height 170.18 cm 11/06/2017 [facility] Weight 109.091 11/05/2017 [facility] BMI Calculated 37.67 11/05/2017 [facility] Height 170.18 cm 11/05/2017 [facility] Systolic (mm Hg) 97 09/26/2017 [facility] Diastolic (mm Hg) 65 09/26/2017 [facility] Temperature Oral (F) 97.8 F 09/26/2017 [facility] Heart Rate 92 09/26/2017 [facility] Respitory Rate 19 09/26/2017 [facility] Respitory Rate 15 09/26/2017 [facility] Systolic (mm Hg) 117 09/26/2017 [facility] Diastolic (mm Hg) 77 09/26/2017 [facility] Temperature Oral (F) 98.5 F 09/26/2017 [facility] Heart Rate 96 09/26/2017 [facility] Respitory Rate 18 09/26/2017 [facility] Systolic (mm Hg) 102 09/26/2017 [facility] Diastolic (mm Hg) 67 09/26/2017 [facility] Heart Rate 86 09/26/2017 [facility] Temperature Oral (F) 98.0 F 09/26/2017 [facility] Height 170.18 cm 09/16/2017 [facility] Weight 112.1 09/16/2017 [facility] BMI Calculated 38.71 09/16/2017 [facility] Respitory Rate 18 08/17/2017 [facility] Systolic (mm Hg) 148 08/17/2017 [facility] Diastolic (mm Hg) 96 08/17/2017 [facility] Temperature Oral (F) 98.1 F 08/17/2017 [facility] Heart Rate 99 08/17/2017 [facility] Systolic (mm Hg) 142 08/17/2017 [facility] Diastolic (mm Hg) 91 08/17/2017 [facility] Heart Rate 99 08/17/2017 [facility] Temperature Oral (F) 98.0 F 08/17/2017 [facility] Respitory Rate 18 08/17/2017 [facility] Systolic (mm Hg) 115 08/17/2017 [facility] Diastolic (mm Hg) 74 08/17/2017 [facility] Respitory Rate 18 08/17/2017 [facility] Temperature Oral (F) 97.6 F 08/17/2017 [facility] Heart Rate 100 08/17/2017 [facility] Height 170.18 cm 08/16/2017 [facility] BMI Calculated 35.48 08/16/2017 [facility] Weight 102.756 08/16/2017 [facility] Weight 100 08/16/2017 [facility] Respitory Rate 18 06/28/2017 [facility] Heart Rate 70 06/28/2017 [facility] Temperature Oral (F) 98.2 F 06/28/2017 [facility] Systolic (mm Hg) 145 06/28/2017 [facility] Diastolic (mm Hg) 90 06/28/2017 [facility] Systolic (mm Hg) 162 06/28/2017 [facility] Diastolic (mm Hg) 100 06/28/2017 [facility] Heart Rate 63 06/28/2017 [facility] Respitory Rate 20 06/28/2017 [facility] Temperature Oral (F) 98.4 F 06/28/2017 [facility] Temperature Oral (F) 98.0 F 06/28/2017 [facility] Heart Rate 98 06/28/2017 [facility] Respitory Rate 20 06/28/2017 [facility] Systolic (mm Hg) 120 06/28/2017 [facility] Diastolic (mm Hg) 79 06/28/2017 [facility] Weight 100.455 06/27/2017 [facility] Weight 100.455 06/27/2017 [facility] Height 170.18 cm 06/27/2017 [facility] BMI Calculated 34.69 06/27/2017 [facility] Heart Rate 101 06/16/2017 [facility] Temperature Oral (F) 98.2 F 06/16/2017 [facility] Systolic (mm Hg) 138 06/16/2017 [facility] Diastolic (mm Hg) 72 06/16/2017 [facility] Respitory Rate 18 06/16/2017 [facility] Temperature Oral (F) 98 F 06/16/2017 [facility] Respitory Rate 16 06/16/2017 [facility] Systolic (mm Hg) 101 06/16/2017 [facility] Diastolic (mm Hg) 69 06/16/2017 [facility] Heart Rate 98 06/16/2017 [facility] Respitory Rate 18 06/16/2017 [facility] Systolic (mm Hg) 125 06/16/2017 [facility] Diastolic (mm Hg) 82 06/16/2017 [facility] Heart Rate 98 06/16/2017 [facility] Temperature Oral (F) 98.7 F 06/16/2017 [facility] Weight 105 06/14/2017 [facility] Height 170.18 cm 06/14/2017 [facility] BMI Calculated 36.26 06/14/2017 [facility] Temperature Oral (F) 97.9 F 04/13/2017 [facility] Respitory Rate 18 04/13/2017 [facility] Heart Rate 94 04/13/2017 [facility] Systolic (mm Hg) 103 04/13/2017 [facility] Diastolic (mm Hg) 67 04/13/2017 [facility] Systolic (mm Hg) 145 04/13/2017 [facility] Diastolic (mm Hg) 98 04/13/2017 [facility] Respitory Rate 18 04/13/2017 [facility] Temperature Oral (F) 98.3 F 04/13/2017 [facility] Respitory Rate 18 04/13/2017 [facility] Temperature Oral (F) 98.1 F 04/13/2017 [facility] Systolic (mm Hg) 131 04/13/2017 [facility] Diastolic (mm Hg) 84 04/13/2017 [facility] Heart Rate 99 04/13/2017 [facility] Heart Rate 93 04/13/2017 [facility] Weight 102.727 04/13/2017 [facility] Heart Rate 90 01/19/2017 [facility] Systolic (mm Hg) 136 01/19/2017 [facility] Diastolic (mm Hg) 85 01/19/2017 [facility] Respitory Rate 20 01/19/2017 [facility] Temperature Oral (F) 98.9 F 01/19/2017 [facility] Heart Rate 103 01/19/2017 [facility] Respitory Rate 20 01/19/2017 [facility] Systolic (mm Hg) 160 01/19/2017 [facility] Diastolic (mm Hg) 80 01/19/2017 [facility] Respitory Rate 18 01/19/2017 [facility] Heart Rate 92 01/19/2017 [facility] Systolic (mm Hg) 116 01/19/2017 [facility] Diastolic (mm Hg) 70 01/19/2017 [facility] Temperature Oral (F) 98.5 F 01/19/2017 [facility] Temperature Oral (F) 98.6 F 01/19/2017 [facility] Height 170.18 cm 01/14/2017 [facility] Weight 117.591 01/14/2017 [facility] BMI Calculated 40.6 01/14/2017 [facility] Weight 105.455 01/14/2017 [facility] Systolic (mm Hg) 135 01/11/2017 [facility] Diastolic (mm Hg) 75 01/11/2017 [facility] Respitory Rate 16 01/11/2017 [facility] Heart Rate 109 01/11/2017 [facility] Temperature Oral (F) 98.4 F 01/11/2017 [facility] Systolic (mm Hg) 137 01/10/2017 [facility] Diastolic (mm Hg) 73 01/10/2017 [facility] Respitory Rate 16 01/10/2017 [facility] Temperature Oral (F) 98.1 F 01/10/2017 [facility] Heart Rate 107 01/10/2017 [facility] Temperature Oral (F) 97.9 F 01/10/2017 [facility] Respitory Rate 18 01/10/2017 [facility] Heart Rate 105 01/10/2017 [facility] Systolic (mm Hg) 102 01/10/2017 [facility] Diastolic (mm Hg) 51 01/10/2017 [facility] Height 170.18 cm 01/04/2017 [facility] Weight 102.841 01/04/2017 [facility] BMI Calculated 35.51 01/04/2017 [facility] Height 170.18 cm 01/03/2017 [facility] BMI Calculated 37.98 01/03/2017 [facility] Weight 110 01/03/2017 [facility] Temperature Oral (F) 98.2 F 12/28/2016 [facility] Heart Rate 98 12/28/2016 [facility] Respitory Rate 17 12/28/2016 [facility] Systolic (mm Hg) 171 12/28/2016 [facility] Diastolic (mm Hg) 112 12/28/2016 [facility] Systolic (mm Hg) 184 12/28/2016 [facility] Diastolic (mm Hg) 113 12/28/2016 [facility] Respitory Rate 18 12/28/2016 [facility] Heart Rate 100 12/28/2016 [facility] Systolic (mm Hg) 223 12/27/2016 [facility] Diastolic (mm Hg) 122 12/27/2016 [facility] Respitory Rate 17 12/27/2016 [facility] Heart Rate 100 12/27/2016 [facility] Temperature Oral (F) 98.4 F 12/27/2016 [facility] Weight 112.273 12/27/2016 [facility] Temperature Oral (F) 98.1 F 12/27/2016 [facility] Height 157.48 cm 12/27/2016 [facility] BMI Calculated 45.27 12/27/2016 [facility] Systolic (mm Hg) 150 12/20/2016 [facility] Diastolic (mm Hg) 88 12/20/2016 [facility] Respitory Rate 15 12/20/2016 [facility] Systolic (mm Hg) 166 12/20/2016 [facility] Diastolic (mm Hg) 94 12/20/2016 [facility] Respitory Rate 18 12/20/2016 [facility] Systolic (mm Hg) 198 12/20/2016 [facility] Diastolic (mm Hg) 111 12/20/2016 [facility] Temperature Oral (F) 99.0 F 12/20/2016 [facility] Respitory Rate 20 12/20/2016 [facility] Heart Rate 126 12/20/2016 [facility] Heart Rate 92 12/20/2016 [facility] Temperature Oral (F) 100 F 12/20/2016 [facility] Heart Rate 94 12/15/2016 [facility] Systolic (mm Hg) 181 12/15/2016 [facility] Diastolic (mm Hg) 114 12/15/2016 [facility] Heart Rate 93 12/15/2016 [facility] Temperature Oral (F) 98.0 F 12/15/2016 [facility] Systolic (mm Hg) 192 12/15/2016 [facility] Diastolic (mm Hg) 124 12/15/2016 [facility] Respitory Rate 18 12/15/2016 [facility] Temperature Oral (F) 98.2 F 12/15/2016 [facility] Respitory Rate 18 12/15/2016 [facility] Systolic (mm Hg) 138 12/15/2016 [facility] Diastolic (mm Hg) 83 12/15/2016 [facility] Heart Rate 89 12/15/2016 [facility] Respitory Rate 18 12/15/2016 [facility] Temperature Oral (F) 98.0 F 12/15/2016 [facility] Weight 103.182 12/14/2016 [facility] BMI Calculated 35.63 12/14/2016 [facility] Height 170.18 cm 12/14/2016 [facility] [facility] Weight 100 12/13/2016 [facility] BMI Calculated 37.84 12/13/2016 [facility] Height 162.56 cm 12/13/2016 [facility] Systolic (mm Hg) 150 12/10/2016 [facility] Diastolic (mm Hg) 91 12/10/2016 [facility] Respitory Rate 18 12/10/2016 [facility] Heart Rate 103 12/10/2016 [facility] Temperature Oral (F) 98.0 F 12/10/2016 [facility] Systolic (mm Hg) 162 12/10/2016 [facility] Diastolic (mm Hg) 96 12/10/2016 [facility] Respitory Rate 17 12/10/2016 [facility] Heart Rate 88 12/10/2016 [facility] Temperature Oral (F) 98.6 F 12/10/2016 [facility] Temperature Oral (F) 98.7 F 12/10/2016 [facility] Heart Rate 88 12/10/2016 [facility] Respitory Rate 18 12/10/2016 [facility] Systolic (mm Hg) 131 12/10/2016 [facility] Diastolic (mm Hg) 81 12/10/2016 [facility] Weight 99 0 12/08/2016 [facility] Height 170.18 cm 12/08/2016 [facility] Weight 99 0 12/07/2016 [facility] Height 170.18 cm 12/06/2016 [facility] BMI Calculated 39.54 12/06/2016 [facility] Weight 114.5 12/06/2016 [facility] BMI Calculated 39.55 12/05/2016 [facility] Height 170.18 cm 12/05/2016 [facility] Temperature Oral (F) 98.9 F 10/26/2016 [facility] Heart Rate 85 10/26/2016 [facility] Systolic (mm Hg) 139 10/26/2016 [facility] Diastolic (mm Hg) 89 10/26/2016 [facility] Respitory Rate 18 10/26/2016 [facility] Weight 111.364 10/26/2016 [facility] Heart Rate 88 10/26/2016 [facility] Systolic (mm Hg) 165 10/26/2016 [facility] Diastolic (mm Hg) 97 10/26/2016 [facility] Respitory Rate 18 10/26/2016 [facility] Temperature Oral (F) 98.3 F 10/26/2016 [facility] Temperature Oral (F) 97.5 F 10/26/2016 [facility] Heart Rate 85 10/26/2016 [facility] Respitory Rate 18 10/26/2016 [facility] Systolic (mm Hg) 158 10/26/2016 [facility] Diastolic (mm Hg) 91 10/26/2016 [facility] BMI Calculated 38.45 10/23/2016 [facility] Weight 111.364 10/23/2016 [facility] Height 170.18 cm 10/23/2016 [facility] BMI Calculated 37.2 10/23/2016 [facility] Height 170.18 cm 10/23/2016 [facility] Weight 107.727 10/23/2016 [facility] Temperature Oral (F) 98.8 F 10/19/2016 [facility] Heart Rate 86 10/19/2016 [facility] Systolic (mm Hg) 122 10/19/2016 [facility] Diastolic (mm Hg) 78 10/19/2016 [facility] Respitory Rate 18 10/19/2016 [facility] Heart Rate 79 10/19/2016 [facility] Systolic (mm Hg) 125 10/19/2016 [facility] Diastolic (mm Hg) 79 10/19/2016 [facility] Respitory Rate 20 10/19/2016 [facility] Temperature Oral (F) 99 F 10/19/2016 [facility] Temperature Oral (F) 99.1 F 10/19/2016 [facility] Heart Rate 85 10/19/2016 [facility] Respitory Rate 18 10/19/2016 [facility] Systolic (mm Hg) 122 10/19/2016 [facility] Diastolic (mm Hg) 76 10/19/2016 [facility] Height 231.14 cm 2016 [facility] BMI Calculated 20.4 2016 [facility] Weight 109 2016 [facility] Temperature Oral (F) 97.5 F 10/12/2016 [facility] Respitory Rate 18 10/12/2016 [facility] Systolic (mm Hg) 161 10/12/2016 [facility] Diastolic (mm Hg) 80 10/12/2016 [facility] Weight 109 10/12/2016 [facility] Respitory Rate 16 10/12/2016 [facility] Systolic (mm Hg) 181 10/12/2016 [facility] Diastolic (mm Hg) 99 10/12/2016 [facility] Temperature Oral (F) 97.4 F 10/12/2016 [facility] Systolic (mm Hg) 162 10/12/2016 [facility] Diastolic (mm Hg) 83 10/12/2016 [facility] Respitory Rate 17 10/12/2016 [facility] Temperature Oral (F) 97.5 F 10/12/2016 [facility] Heart Rate 124 10/11/2016 [facility] Temperature Oral (F) 98.5 F 10/07/2016 [facility] Respitory Rate 18 10/07/2016 [facility] Systolic (mm Hg) 132 10/07/2016 [facility] Diastolic (mm Hg) 76 10/07/2016 [facility] Heart Rate 90 10/07/2016 [facility] Heart Rate 90 10/07/2016 [facility] Systolic (mm Hg) 129 10/07/2016 [facility] Diastolic (mm Hg) 81 10/07/2016 [facility] Respitory Rate 18 10/07/2016 [facility] Temperature Oral (F) 98.5 F 10/07/2016 [facility] Systolic (mm Hg) 103 10/07/2016 [facility] Diastolic (mm Hg) 65 10/07/2016 [facility] Heart Rate 82 10/07/2016 [facility] Respitory Rate 18 10/07/2016 [facility] Temperature Oral (F) 98.2 F 10/07/2016 [facility] Weight 109.545 10/02/2016 [facility] BMI Calculated 37.82 10/02/2016 [facility] Height 170.18 cm 10/02/2016 [facility] Systolic (mm Hg) 156 09/28/2016 [facility] Diastolic (mm Hg) 94 09/28/2016 [facility] Temperature Oral (F) 98.3 F 09/28/2016 [facility] Respitory Rate 18 09/28/2016 [facility] Heart Rate 89 09/28/2016 [facility] Systolic (mm Hg) 117 09/28/2016 [facility] Diastolic (mm Hg) 78 09/28/2016 [facility] Temperature Oral (F) 98.4 F 09/28/2016 [facility] Respitory Rate 18 09/28/2016 [facility] Heart Rate 92 09/28/2016 [facility] Systolic (mm Hg) 152 09/28/2016 [facility] Diastolic (mm Hg) 88 09/28/2016 [facility] Respitory Rate 18 09/28/2016 [facility] Temperature Oral (F) 98.4 F 09/28/2016 [facility] Heart Rate 94 09/28/2016 [facility] Height 170.18 cm 09/16/2016 [facility] Weight 118.182 09/16/2016 [facility] BMI Calculated 40.81 09/16/2016 [facility] Respitory Rate 18 09/11/2016 [facility] Systolic (mm Hg) 114 09/11/2016 [facility] Diastolic (mm Hg) 66 09/11/2016 [facility] Heart Rate 90 09/11/2016 [facility] Temperature Oral (F) 97.5 F 09/11/2016 [facility] Systolic (mm Hg) 116 09/11/2016 [facility] Diastolic (mm Hg) 56 09/11/2016 [facility] Respitory Rate 18 09/11/2016 [facility] Heart Rate 92 09/11/2016 [facility] Temperature Oral (F) 97.4 F 09/11/2016 [facility] Systolic (mm Hg) 112 09/11/2016 [facility] Diastolic (mm Hg) 62 09/11/2016 [facility] Respitory Rate 18 09/11/2016 [facility] Temperature Oral (F) 98.4 F 09/11/2016 [facility] Heart Rate 99 09/11/2016 [facility] BMI Calculated 40.81 09/07/2016 [facility] Weight 118.182 09/07/2016 [facility] Height 170.18 cm 09/07/2016 [facility] BMI Calculated 38.92 09/07/2016 [facility] Weight 112.727 09/07/2016 [facility] Height 170.18 cm 09/07/2016 [facility] Temperature Oral (F) 98.8 F 08/26/2016 [facility] Systolic (mm Hg) 177 08/26/2016 [facility] Diastolic (mm Hg) 100 08/26/2016 [facility] Respitory Rate 18 08/26/2016 [facility] Respitory Rate 20 08/26/2016 [facility] Diastolic (mm Hg) 105 08/26/2016 [facility] Systolic (mm Hg) 191 08/26/2016 [facility] Respitory Rate 18 08/26/2016 [facility] Diastolic (mm Hg) 103 08/26/2016 [facility] Systolic (mm Hg) 179 08/26/2016 [facility] Weight 114.545 08/26/2016 [facility] Heart Rate 120 08/26/2016 [facility] Temperature Oral (F) 98.7 F 08/26/2016 [facility] Height 170.18 cm 08/26/2016 [facility] BMI Calculated 39.55 08/26/2016 [facility] Temperature Oral (F) 98.7 F 08/25/2016 [facility] Respitory Rate 18 08/25/2016 [facility] Systolic (mm Hg) 173 08/25/2016 [facility] Diastolic (mm Hg) 100 08/25/2016 [facility] Respitory Rate 18 08/25/2016 [facility] Systolic (mm Hg) 196 08/25/2016 [facility] Diastolic (mm Hg) 96 08/25/2016 [facility] Systolic (mm Hg) 196 08/25/2016 [facility] Diastolic (mm Hg) 108 08/25/2016 [facility] Respitory Rate 18 08/25/2016 [facility] Heart Rate 107 08/25/2016 [facility] Temperature Oral (F) 98.7 F 08/25/2016 [facility] Height 170.18 cm 08/25/2016 [facility] BMI Calculated 39.39 08/25/2016 [facility] Weight 114.091 08/25/2016 [facility] Heart Rate 108 08/25/2016 [facility] Temperature Oral (F) 97.6 F 08/22/2016 [facility] Respitory Rate 16 08/22/2016 [facility] Systolic (mm Hg) 150 08/22/2016 [facility] Diastolic (mm Hg) 80 08/22/2016 [facility] Heart Rate 85 08/22/2016 [facility] Respitory Rate 18 08/21/2016 [facility] Temperature Oral (F) 98.9 F 08/21/2016 [facility] Heart Rate 116 08/21/2016 [facility] Systolic (mm Hg) 194 08/21/2016 [facility] Diastolic (mm Hg) 135 08/21/2016 [facility] Systolic (mm Hg) 103 08/18/2016 [facility] Diastolic (mm Hg) 54 08/18/2016 [facility] Respitory Rate 20 08/18/2016 [facility] Respitory Rate 20 08/17/2016 [facility] Systolic (mm Hg) 129 08/17/2016 [facility] Diastolic (mm Hg) 77 08/17/2016 [facility] Systolic (mm Hg) 142 08/17/2016 [facility] Diastolic (mm Hg) 88 08/17/2016 [facility] Respitory Rate 17 08/17/2016 [facility] Temperature Oral (F) 97.9 F 08/17/2016 [facility] Height 170.18 cm 08/17/2016 [facility] BMI Calculated 41.64 08/17/2016 [facility] Weight 120.597 08/17/2016 [facility] Temperature Oral (F) 98.2 F 08/17/2016 [facility] Temperature Oral (F) 98.5 F 08/17/2016 [facility] Heart Rate 108 08/17/2016 [facility] Heart Rate 106 08/17/2016 [facility] Heart Rate 104 08/17/2016 [facility] Weight 114.545 08/17/2016 [facility] Height 170.18 cm 08/17/2016 [facility] BMI Calculated 39.55 08/17/2016 [facility] Temperature Oral (F) 98.2 F 08/11/2016 [facility] Respitory Rate 16 08/11/2016 [facility] Systolic (mm Hg) 217 08/11/2016 [facility] Diastolic (mm Hg) 124 08/11/2016 [facility] Systolic (mm Hg) 228 08/11/2016 [facility] Diastolic (mm Hg) 122 08/11/2016 [facility] Respitory Rate 20 08/11/2016 [facility] Respitory Rate 18 08/11/2016 [facility] Systolic (mm Hg) 137 08/11/2016 [facility] Diastolic (mm Hg) 92 08/11/2016 [facility] Weight 114.545 08/11/2016 [facility] BMI Calculated 39.55 08/11/2016 [facility] Height 170.18 cm 08/11/2016 [facility] Temperature Oral (F) 98.5 F 08/11/2016 [facility] Heart Rate 112 08/11/2016 [facility] Systolic (mm Hg) 180 08/08/2016 [facility] Diastolic (mm Hg) 105 08/08/2016 [facility] Respitory Rate 18 08/08/2016 [facility] Respitory Rate 20 08/08/2016 [facility] Systolic (mm Hg) 190 08/08/2016 [facility] Diastolic (mm Hg) 91 08/08/2016 [facility] Respitory Rate 18 08/08/2016 [facility] Systolic (mm Hg) 186 08/08/2016 [facility] Diastolic (mm Hg) 98 08/08/2016 [facility] Temperature Oral (F) 97.5 F 08/08/2016 [facility] Temperature Oral (F) 98.6 F 08/08/2016 [facility] Heart Rate 104 08/08/2016 [facility] Temperature Oral (F) 97.8 F 08/06/2016 [facility] Respitory Rate 19 08/06/2016 [facility] Systolic (mm Hg) 196 08/06/2016 [facility] Diastolic (mm Hg) 90 08/06/2016 [facility] Systolic (mm Hg) 212 08/06/2016 [facility] Diastolic (mm Hg) 111 08/06/2016 [facility] Respitory Rate 20 08/06/2016 [facility] Systolic (mm Hg) 199 08/06/2016 [facility] Diastolic (mm Hg) 98 08/06/2016 [facility] Respitory Rate 19 08/06/2016 [facility] BMI Calculated 38.4 08/06/2016 [facility] Heart Rate 106 08/06/2016 [facility] Weight 114.545 08/06/2016 [facility] Height 172.72 cm 08/06/2016 [facility] Temperature Oral (F) 98.2 F 08/06/2016 [facility] Respitory Rate 16 08/03/2016 [facility] Temperature Oral (F) 98.2 F 08/03/2016 [facility] Systolic (mm Hg) 152 08/03/2016 [facility] Diastolic (mm Hg) 84 08/03/2016 [facility] Respitory Rate 11 08/03/2016 [facility] Systolic (mm Hg) 171 08/03/2016 [facility] Diastolic (mm Hg) 88 08/03/2016 [facility] Respitory Rate 18 08/03/2016 [facility] Systolic (mm Hg) 228 08/03/2016 [facility] Diastolic (mm Hg) 105 08/03/2016 [facility] Temperature Oral (F) 97.8 F 08/02/2016 [facility] Heart Rate 95 08/02/2016 [facility] Weight 114.545 08/02/2016 [facility] BMI Calculated 39.55 08/02/2016 [facility] Temperature Oral (F) 97.7 F 08/02/2016 [facility] Height 170.18 cm 08/02/2016 [facility] Heart Rate 111 08/02/2016 [facility] Respitory Rate 16 07/27/2016 [facility] Temperature Oral (F) 98.1 F 07/27/2016 [facility] Systolic (mm Hg) 180 07/27/2016 [facility] Diastolic (mm Hg) 102 07/27/2016 [facility] Systolic (mm Hg) 179 07/27/2016 [facility] Diastolic (mm Hg) 98 07/27/2016 [facility] Respitory Rate 18 07/27/2016 [facility] Temperature Oral (F) 97.9 F 07/27/2016 [facility] Systolic (mm Hg) 177 07/27/2016 [facility] Diastolic (mm Hg) 93 07/27/2016 [facility] Respitory Rate 16 07/27/2016 [facility] Temperature Oral (F) 97.1 F 07/27/2016 [facility] Heart Rate 106 07/27/2016 [facility] Weight 114.545 07/27/2016 [facility] BMI Calculated 39.55 07/27/2016 [facility] Height 170.18 cm 07/27/2016 [facility] Heart Rate 104 07/27/2016 [facility] Temperature Oral (F) 97.7 F 07/27/2016 [facility] Heart Rate 113 07/27/2016 [facility] Systolic (mm Hg) 152 07/27/2016 [facility] Diastolic (mm Hg) 78 07/27/2016 [facility] Respitory Rate 20 07/27/2016 [facility] Respitory Rate 20 07/27/2016 [facility] Systolic (mm Hg) 145 07/27/2016 [facility] Diastolic (mm Hg) 91 07/27/2016 [facility] Heart Rate 102 07/27/2016 [facility] BMI Calculated 40.81 07/27/2016 [facility] Height 170.18 cm 07/27/2016 [facility] Weight 118.182 07/27/2016 [facility] Systolic (mm Hg) 146 07/27/2016 [facility] Diastolic (mm Hg) 101 07/27/2016 [facility] Respitory Rate 20 07/27/2016 [facility] Heart Rate 113 07/27/2016 [facility] Temperature Oral (F) 98.0 F 07/23/2016 [facility] Systolic (mm Hg) 167 07/23/2016 [facility] Diastolic (mm Hg) 98 07/23/2016 [facility] BMI Calculated 39.39 07/23/2016 [facility] Weight 114.091 07/23/2016 [facility] Height 170.18 cm 07/23/2016 [facility] Temperature Oral (F) 99.6 F 07/23/2016 [facility] Respitory Rate 18 07/23/2016 [facility] Heart Rate 114 07/23/2016 [facility] Systolic (mm Hg) 174 07/23/2016 [facility] Diastolic (mm Hg) 123 07/23/2016 [facility] Systolic (mm Hg) 116 07/17/2016 [facility] Diastolic (mm Hg) 79 07/17/2016 [facility] Respitory Rate 20 07/17/2016 [facility] Heart Rate 95 07/17/2016 [facility] Temperature Oral (F) 97.2 F 07/17/2016 [facility] Systolic (mm Hg) 149 07/17/2016 [facility] Diastolic (mm Hg) 94 07/17/2016 [facility] Respitory Rate 20 07/17/2016 [facility] Temperature Oral (F) 97.5 F 07/17/2016 [facility] Heart Rate 90 07/17/2016 [facility] Respitory Rate 18 07/17/2016 [facility] Heart Rate 88 07/17/2016 [facility] Systolic (mm Hg) 146 07/17/2016 [facility] Diastolic (mm Hg) 82 07/17/2016 [facility] Temperature Oral (F) 98.4 F 07/17/2016 [facility] BMI Calculated 40.27 07/16/2016 [facility] Weight 116.636 07/16/2016 [facility] Height 170.18 cm 07/16/2016 [facility] BMI Calculated 39.39 07/15/2016 [facility] [facility] Weight 114.091 07/15/2016 [facility] Height 170.18 cm 07/15/2016 [facility] Systolic (mm Hg) 158 07/07/2016 [facility] Diastolic (mm Hg) 83 07/07/2016 [facility] Temperature Oral (F) 98.4 F 07/07/2016 [facility] Heart Rate 100 07/07/2016 [facility] Respitory Rate 18 07/07/2016 [facility] Systolic (mm Hg) 138 07/07/2016 [facility] Diastolic (mm Hg) 87 07/07/2016 [facility] Respitory Rate 18 07/07/2016 [facility] Temperature Oral (F) 98.5 F 07/07/2016 [facility] Heart Rate 100 07/07/2016 [facility] Heart Rate 101 07/07/2016 [facility] Temperature Oral (F) 98.3 F 07/07/2016 [facility] Respitory Rate 18 07/07/2016 [facility] Systolic (mm Hg) 150 07/07/2016 [facility] Diastolic (mm Hg) 88 07/07/2016 [facility] Weight 112 06/28/2016 [facility] Weight 112.727 06/28/2016 [facility] Height 170.18 cm 06/28/2016 [facility] BMI Calculated 38.92 06/28/2016 [facility] Height 170.18 cm 06/24/2016 [facility] BMI Calculated 38.92 06/24/2016 [facility] Weight 112.727 06/24/2016 [facility] Systolic (mm Hg) 158 06/24/2016 [facility] Diastolic (mm Hg) 95 06/24/2016 [facility] Respitory Rate 18 06/24/2016 [facility] Heart Rate 100 06/24/2016 [facility] Temperature Oral (F) 98.7 F 06/24/2016 [facility] Temperature Oral (F) 98.8 F 06/24/2016 [facility] Heart Rate 96 06/24/2016 [facility] Respitory Rate 18 06/24/2016 [facility] Systolic (mm Hg) 151 06/24/2016 [facility] Diastolic (mm Hg) 86 06/24/2016 [facility] Temperature Oral (F) 98.3 F 06/24/2016 [facility] Heart Rate 110 06/24/2016 [facility] Systolic (mm Hg) 145 06/24/2016 [facility] Diastolic (mm Hg) 97 06/24/2016 [facility] Respitory Rate 18 06/24/2016 [facility] BMI Calculated 38.92 06/22/2016 [facility] Height 170.18 cm 06/22/2016 [facility] Weight 112.727 06/22/2016 [facility] Temperature Oral (F) 98.8 F 06/14/2016 [facility] Respitory Rate 20 06/14/2016 [facility] Heart Rate 96 06/14/2016 [facility] Systolic (mm Hg) 147 06/14/2016 [facility] Diastolic (mm Hg) 88 06/14/2016 [facility] Respitory Rate 18 06/14/2016 [facility] Systolic (mm Hg) 137 06/14/2016 [facility] Diastolic (mm Hg) 89 06/14/2016 [facility] Temperature Oral (F) 97.9 F 06/14/2016 [facility] Heart Rate 100 06/14/2016 [facility] Systolic (mm Hg) 138 06/14/2016 [facility] Diastolic (mm Hg) 82 06/14/2016 [facility] Respitory Rate 20 06/14/2016 [facility] Heart Rate 99 06/14/2016 [facility] Temperature Oral (F) 98.8 F 06/14/2016 [facility] Height 157.48 cm 06/14/2016 [facility] Weight 112.727 06/14/2016 [facility] BMI Calculated 45.45 06/14/2016 [facility] Height 170.18 cm 06/13/2016 [facility] BMI Calculated 38.92 06/13/2016 [facility] Weight 112.727 06/13/2016 [facility] Height 167.64 cm 05/31/2016 [facility] Weight 118.182 05/31/2016 [facility] BMI Calculated 42.05 05/31/2016 [facility] Respitory Rate 18 05/31/2016 [facility] Heart Rate 115 05/31/2016 [facility] Systolic (mm Hg) 181 05/31/2016 [facility] Diastolic (mm Hg) 105 05/31/2016 [facility] Temperature Oral (F) 98.4 F 05/31/2016 [facility] Temperature Oral (F) 97.5 F 05/30/2016 [facility] Systolic (mm Hg) 158 05/30/2016 [facility] Diastolic (mm Hg) 89 05/30/2016 [facility] Respitory Rate 23 05/30/2016 [facility] Systolic (mm Hg) 162 05/30/2016 [facility] Diastolic (mm Hg) 88 05/30/2016 [facility] Respitory Rate 14 05/30/2016 [facility] Respitory Rate 10 05/30/2016 [facility] Systolic (mm Hg) 158 05/30/2016 [facility] Diastolic (mm Hg) 85 05/30/2016 [facility] Temperature Oral (F) 98.7 F 05/30/2016 [facility] Height 170.18 cm 05/30/2016 [facility] BMI Calculated 40.49 05/30/2016 [facility] Temperature Oral (F) 98.5 F 05/30/2016 [facility] Heart Rate 120 05/30/2016 [facility] Weight 117.273 05/30/2016 [facility] Systolic (mm Hg) 168 05/27/2016 [facility] Diastolic (mm Hg) 101 05/27/2016 [facility] Temperature Oral (F) 97.9 F 05/27/2016 [facility] Systolic (mm Hg) 149 05/27/2016 [facility] Diastolic (mm Hg) 79 05/27/2016 [facility] Systolic (mm Hg) 148 05/27/2016 [facility] Diastolic (mm Hg) 85 05/27/2016 [facility] Weight 112.727 05/27/2016 [facility] BMI Calculated 38.92 05/27/2016 [facility] Height 170.18 cm 05/27/2016 [facility] Temperature Oral (F) 98.3 F 05/27/2016 [facility] Respitory Rate 18 05/27/2016 [facility] Heart Rate 121 05/27/2016 [facility] Heart Rate 89 05/18/2016 [facility] Temperature Oral (F) 98.6 F 05/18/2016 [facility] Systolic (mm Hg) 104 05/18/2016 [facility] Diastolic (mm Hg) 69 05/18/2016 [facility] Respitory Rate 18 05/18/2016 [facility] Temperature Oral (F) 101.5 F 05/18/2016 [facility] Systolic (mm Hg) 93 05/18/2016 [facility] Diastolic (mm Hg) 63 05/18/2016 [facility] Temperature Oral (F) 98.3 F 05/18/2016 [facility] Heart Rate 94 05/18/2016 [facility] Systolic (mm Hg) 133 05/18/2016 [facility] Diastolic (mm Hg) 84 05/18/2016 [facility] Respitory Rate 18 05/18/2016 [facility] Heart Rate 89 05/18/2016 [facility] Respitory Rate 18 05/18/2016 [facility] Weight 107.727 05/17/2016 [facility] BMI Calculated 37.2 05/17/2016 [facility] Height 170.18 cm 05/17/2016 [facility] Respitory Rate 18 04/19/2016 [facility] Temperature Oral (F) 98 F 04/19/2016 [facility] Systolic (mm Hg) 166 04/19/2016 [facility] Diastolic (mm Hg) 111 04/19/2016 [facility] Systolic (mm Hg) 196 04/19/2016 [facility] Diastolic (mm Hg) 117 04/19/2016 [facility] Respitory Rate 18 04/19/2016 [facility] Respitory Rate 20 04/19/2016 [facility] Systolic (mm Hg) 189 04/19/2016 [facility] Diastolic (mm Hg) 105 04/19/2016 [facility] Height 170.18 cm 04/19/2016 [facility] Weight 117.273 04/19/2016 [facility] BMI Calculated 40.49 04/19/2016 [facility] Temperature Oral (F) 98.2 F 04/19/2016 [facility] Heart Rate 108 04/19/2016 [facility] Respitory Rate 18 04/01/2016 [facility] Heart Rate 85 04/01/2016 [facility] Systolic (mm Hg) 161 04/01/2016 [facility] Diastolic (mm Hg) 88 04/01/2016 [facility] Temperature Oral (F) 98.3 F 04/01/2016 [facility] Systolic (mm Hg) 149 04/01/2016 [facility] Diastolic (mm Hg) 90 04/01/2016 [facility] Temperature Oral (F) 97.6 F 04/01/2016 [facility] Heart Rate 83 04/01/2016 [facility] Respitory Rate 18 04/01/2016 [facility] Temperature Oral (F) 98.2 F 04/01/2016 [facility] Systolic (mm Hg) 150 04/01/2016 [facility] Diastolic (mm Hg) 87 04/01/2016 [facility] Respitory Rate 18 04/01/2016 [facility] Heart Rate 87 04/01/2016 [facility] BMI Calculated 39.71 03/15/2016 [facility] Weight 115 03/15/2016 [facility] Height 170.18 cm 03/15/2016 [facility] Weight 115 03/15/2016 [facility] Weight 115 03/14/2016 [facility] Systolic (mm Hg) 157 02/26/2016 [facility] Diastolic (mm Hg) 83 02/26/2016 [facility] Respitory Rate 20 02/26/2016 [facility] Heart Rate 104 02/26/2016 [facility] Temperature Oral (F) 98.6 F 02/26/2016 [facility] Systolic (mm Hg) 143 02/25/2016 [facility] Diastolic (mm Hg) 84 02/25/2016 [facility] Temperature Oral (F) 98.1 F 02/25/2016 [facility] Heart Rate 95 02/25/2016 [facility] Respitory Rate 20 02/25/2016 [facility] Heart Rate 98 02/25/2016 [facility] Temperature Oral (F) 98.4 F 02/25/2016 [facility] Systolic (mm Hg) 144 02/25/2016 [facility] Diastolic (mm Hg) 80 02/25/2016 [facility] Respitory Rate 19 02/25/2016 [facility] BMI Calculated 43.18 02/20/2016 [facility] Weight 125.057 02/20/2016 [facility] Height 170.18 cm 02/20/2016 [facility] BMI Calculated 38.92 02/19/2016 [facility] Height 170.18 cm 02/19/2016 [facility] Weight 112.727 02/19/2016 [facility] Temperature Oral (F) 98.9 F 02/02/2016 [facility] Systolic (mm Hg) 138 02/02/2016 [facility] Diastolic (mm Hg) 74 02/02/2016 [facility] Heart Rate 89 02/02/2016 [facility] Respitory Rate 18 02/02/2016 [facility] Respitory Rate 16 02/02/2016 [facility] Systolic (mm Hg) 106 02/02/2016 [facility] Diastolic (mm Hg) 59 02/02/2016 [facility] Respitory Rate 20 02/02/2016 [facility] Systolic (mm Hg) 225 02/02/2016 [facility] Diastolic (mm Hg) 112 02/02/2016 [facility] Heart Rate 116 02/02/2016 [facility] BMI Calculated 38.61 02/02/2016 [facility] Temperature Oral (F) 98.3 F 02/02/2016 [facility] Height 170.18 cm 02/02/2016 [facility] Weight 111.818 02/02/2016 [facility] Heart Rate 127 02/02/2016 [facility] Respitory Rate 19 01/11/2016 [facility] Heart Rate 98 01/11/2016 [facility] Systolic (mm Hg) 175 01/11/2016 [facility] Diastolic (mm Hg) 92 01/11/2016 [facility] BMI Calculated 38.92 01/11/2016 [facility] Height 170.18 cm 01/11/2016 [facility] Weight 112.727 01/11/2016 [facility] Systolic (mm Hg) 123 01/11/2016 [facility] Diastolic (mm Hg) 83 01/11/2016 [facility] Temperature Oral (F) 98.0 F 01/11/2016 [facility] Respitory Rate 20 01/11/2016 [facility] Heart Rate 102 01/11/2016 [facility] Temperature Oral (F) 97.4 F 01/08/2016 [facility] Heart Rate 94 01/08/2016 [facility] Respitory Rate 18 01/08/2016 [facility] Systolic (mm Hg) 107 01/08/2016 [facility] Diastolic (mm Hg) 78 01/08/2016 [facility] Temperature Oral (F) 98.4 F 01/08/2016 [facility] Heart Rate 91 01/08/2016 [facility] Systolic (mm Hg) 100 01/08/2016 [facility] Diastolic (mm Hg) 68 01/08/2016 [facility] Respitory Rate 18 01/08/2016 [facility] Temperature Oral (F) 98.7 F 01/08/2016 [facility] Heart Rate 92 01/08/2016 [facility] Respitory Rate 18 01/08/2016 [facility] Systolic (mm Hg) 123 01/08/2016 [facility] Diastolic (mm Hg) 78 01/08/2016 [facility] Weight 113.18 12/13/2015 [facility] Weight 113.18 12/03/2015 [facility] Weight 113.18 12/02/2015 [facility] BMI Calculated 39.08 11/27/2015 [facility] Height 170.18 cm 11/27/2015 [facility] Systolic (mm Hg) 133 11/27/2015 [facility] Diastolic (mm Hg) 87 11/27/2015 [facility] Respitory Rate 18 11/27/2015 [facility] Heart Rate 94 11/27/2015 [facility] Temperature Oral (F) 99.3 F 11/27/2015 [facility] Systolic (mm Hg) 148 11/27/2015 [facility] Diastolic (mm Hg) 90 11/27/2015 [facility] Respitory Rate 20 11/27/2015 [facility] Heart Rate 97 11/27/2015 [facility] Temperature Oral (F) 98.2 F 11/27/2015 [facility] Systolic (mm Hg) 136 11/27/2015 [facility] Diastolic (mm Hg) 85 11/27/2015 [facility] Respitory Rate 18 11/27/2015 [facility] Heart Rate 98 11/27/2015 [facility] Temperature Oral (F) 98.5 F 11/27/2015 [facility] Height 170.18 cm 11/02/2015 [facility] BMI Calculated 41.59 11/02/2015 [facility] Weight 120.455 11/02/2015 [facility] Height 170.18 cm 11/02/2015 [facility] Weight 117.273 11/02/2015 [facility] BMI Calculated 40.49 11/02/2015 [facility] Weight 117.273 11/02/2015 [facility] Height 170.18 cm 11/02/2015 [facility] Encounters Location Location Details Encounter Type Encounter Number Reason For Visit Attending Provider ADM Date DC Date Status Source [facility] Inpatient [id number] Farnazisabell Peacock 11/02/2015 11/27/2015 [facility] Inpatient [id number] Gee Arizmendi 11/27/2015 01/08/2016 [facility] Emergency [id number] Ever Cardneas 01/10/2016 01/11/2016 [facility] Emergency [id number] Shady Rg 02/02/2016 02/02/2016 [facility] Inpatient [id number] Don Oreilly 02/19/2016 02/26/2016 [facility] Inpatient [id number] Raven Marrero 03/14/2016 04/02/2016 [facility] Emergency [id number] Narda Martinez 04/19/2016 04/19/2016 [facility] Inpatient [id number] Rashawn Ochoa 05/17/2016 05/18/2016 [facility] Emergency [id number] Jed Henry 05/27/2016 05/27/2016 [facility] Emergency [id number] Angelo Hollis 05/30/2016 05/30/2016 [facility] Emergency [id number] Jed Henry 05/31/2016 06/01/2016 [facility] Observation [id number] Sivakumar Rosales 06/13/2016 06/15/2016 [facility] Observation [id number] Sivakumar Rosales 06/22/2016 06/24/2016 [facility] Inpatient [id number] Yenny Cornejo 06/28/2016 07/07/2016 [facility] Inpatient [id number] Shilane Pham 07/15/2016 07/17/2016 [facility] Emergency [id number] Tyler Rosales 07/23/2016 07/23/2016 [facility] Emergency [id number] Sandra Wolfe 07/27/2016 07/27/2016 [facility] Emergency [id number] Naeem Zacarias 07/27/2016 07/27/2016 [facility] Emergency [id number] Bertrand Ramirez 08/02/2016 08/03/2016 [facility] Emergency [id number] Naeem Pena 08/06/2016 08/06/2016 [facility] Emergency [id number] Keyon Anton 08/08/2016 08/08/2016 [facility] Emergency [id number] Ever Cardenas 08/11/2016 08/11/2016 [facility] Inpatient [id number] Kayla Tara 08/17/2016 08/18/2016 [facility] Emergency [id number] Naomi Harvey 08/21/2016 08/22/2016 [facility] Emergency [id number] Sandra Wolfe 08/25/2016 08/25/2016 [facility] Emergency [id number] Gladys Sanchezy 08/26/2016 08/26/2016 [facility] Observation [id number] Duglas Chenan 09/07/2016 09/11/2016 [facility] Inpatient [id number] Darrion Dykes 09/16/2016 09/28/2016 [facility] Inpatient [id number] Darrion Dykes 10/02/2016 10/07/2016 [facility] Inpatient [id number] Kayla Pacheco 10/11/2016 10/12/2016 [facility] Inpatient [id number] Naeem Ham 2016 10/19/2016 [facility] Inpatient [id number] Dmitriy Mora 10/23/2016 10/26/2016 [facility] Inpatient [id number] Carmen Galvez 12/05/2016 12/10/2016 [facility] Observation [id number] Lolis Sharp 12/13/2016 12/15/2016 [facility] Emergency [id number] Molly Pascual 12/20/2016 12/20/2016 [facility] Emergency [id number] Jaiden Haro 12/27/2016 12/28/2016 [facility] Inpatient [id number] Kassie Turner 01/03/2017 01/11/2017 [facility] Inpatient [id number] Nolan Dhamotharan 01/14/2017 01/19/2017 [facility] Observation [id number] Naeem Ham 04/12/2017 04/13/2017 [facility] Inpatient [id number] Neftali Piercei 06/14/2017 06/16/2017 [facility] Observation [id number] Denis Chenan 06/27/2017 06/28/2017 [facility] Observation [id number] Nolan Dhamotharan 08/16/2017 08/17/2017 [facility] Inpatient [id number] Hank Shaharya 09/16/2017 09/27/2017 [facility] Inpatient [id number] Katja Pena 11/05/2017 11/12/2017 [facility] Inpatient [id number] Lolis Sharp 06/17/2018 06/19/2018 [facility] Emergency [id number] Zelalem Gomez 06/23/2018 06/23/2018 [facility] Inpatient [id number] Taso Mougouris 06/26/2018 07/02/2018 [facility] Inpatient [id number] Taso Mougouris 07/18/2018 07/25/2018 [facility] Inpatient [id number] Joe Campuzano 01/06/2019 01/07/2019 [facility] Emergency [id number] Marva Worthington 08/17/2019 08/18/2019 [facility] Observation [id number] Tiffani Perez 08/18/2019 08/18/2019 [facility] Procedures Procedure Code Date Perfomer Comments Source Amputation<sup>1</sup> [id number] 2 toes [facility] R foot [facility] & [facility], [facility] Amputation below-knee<sup>2</sup> [id number] 06/29/16 [facility] Catheter procedure [id number] [facility] section<sup>3</sup> 1 [id number] [facility], [facility] section [id number] [facility] Cholecystectomy [id number] [facility] Assessment and Plan Assessment and Plan Date Source Extracted from:Title: Nephrology Author: Kevin Donald MD Date: 08/18/19 Nephrology and Apheresis Consult DOS: 08/18/2019 Referring Physician: Marva Worthington MD Reason for Consultation: Continuation of dialysis Subjective: Ms. Meena Sol was seen on HD @ 11:41 ROS: Positive for shortness of breath but better, negative for fevers, negative for anuria, negative for confusion Meds Reviewed and notable for furosemide 20 mg PO BID PE Vitals remarkable for good O2 sats on room air Gen: NAD, sitting up at a 45 degree angle from the head of the bed Neuro: AO x4 Mouth: moist mucous membrane : No [place] Lab/Radiology studies: Potassium 7.5 mmol/L BUN 64 mg/dL Brain natriuretic peptide 648 pg/mL Hemoglobin 6.6 g/dL White count 11.5K Assessment and Plan: ESRD: Hemodialysis today then resume MWF schedule. Dysfunctional AV Fistula: plan to conduct fistulogram if pt stays Chest pain: Hyperkalemia: Anemia: Epogen 6000 ordered with each treatment Irregular chest x-ray: from flash pulmonary edema in setting of uncontrolled hypertension Respiratory distress: Right BKA status Leukocytosis Hypertension: goal systolic BP 120-140 mmHg Diabetes: goal glucose levels 140-200 mg/dl The case required moderate to complex decision making. Over 50% of the time was spent [id number] with the patient and the providers involved in this case. Kevin Donald MD, MS Nephrology and Apheresis Wound care and Hyperbarics [facility] Office: [phone] Extracted from:Title: Shortness of breath Author: Jai Jarvis DO Date: 08/18/19 Critical Care Medicine Chief complaint: Shortness of breath History of present illness: 43 y.o female with a h/o ESRD on HD, HTN , DM, and HLD presented from [facility] after dialysis. She apparently went to the ER with shortness of breath. She was found to have volume overload, with hypertension, and hyperkalemia. Stat HD was done with improvement of her symptoms. The patient is currently doing well and is comfortable of [place]. The ER doctor insisted that the patient be transferred to [facility]. The patient has tested negative for COVID. The patients Hb was 6.6 from a baseline of 8. Past medical history: HTN - Hypertension: 09/07/16 DM (diabetes mellitus): 09/07/16 Anxiety Chronic depression HLD (hyperlipidemia) ESRD on HD Pancreatitis HLD Past family history: Father: Heart failure; High blood pressure; Type 2 diabetes mellitus Mother: Heart failure; High blood pressure; Lung cancer; Type 2 diabetes mellitus Surgical history: section Amputation section Amputation below-knee Cholecystectomy Catheter procedure Social history: Sexual Details: Sexually active: No. Alcohol Details: Current, Previous treatment: None. Alcohol use interferes with work or home: No. Drinks more than intended: No. Others hurt by drinking: No. Ready to change: No. Household alcohol concerns: No.; Comment(s): Social drinker Details: Past, Type Wine. Frequency: 1-2 times per month. 12 Drinks/Episode average. 12.00 Drinks/Episode maximum. Last use: July. Started age 15 Years. Previous treatment: None. Alcohol use interferes with work or home: No. Drinks more than intended: No. Others hurt by drinking: No. Ready to change: No. Household alcohol concerns: No.; Comment(s): pt denies current alcohol use Exercise Details: Exercise duration: 30. Exercise frequency: 1-2 times/week. Self assessment: Good condition. Exercise type: Walking. Tobacco Details: Use: Never smoker. Tobacco smoke exposure: None. Did the Patient Smoke Cigarettes Anytime During the Last 365 Days? No. Cessation Counseling Provided? No. Details: Use: Never smoker. Ready to change: No. Household tobacco concerns: No. Tobacco smoke exposure: None. Did the Patient Smoke Cigarettes Anytime During the Last 365 Days? No. Cessation Counseling Provided? No. Details: Use: Never smoker. Type: Cigarettes. Tobacco smoke exposure: None. Did the Patient Smoke Cigarettes Anytime During the Last 365 Days? No. Cessation Counseling Provided? No. Details: Use: Never smoker. Type: Cigarettes. Previous treatment: None. Tobacco smoke exposure: None. Did the Patient Smoke Cigarettes Anytime During the Last 365 Days? No. Cessation Counseling Provided? No. Substance Abuse Details: Use: None. Details: Use: None. Medications: Medication List Active Medications Ordered acetaminophen: 650 mg, PO, Q4H, PRN: Pain Score 1-3. albuterol-ipratropium: 3 mL, NEB, PRN, PRN: Respiratory Pathway. azithromycin + Sodium Chloride 0.9% IV 250 mL: 500 mg, 166.67 ml/hr, IVPB, [id number]. cefTRIAXone + sterile water 10 mL: 1 gm, 120 ml/hr, IV, [id number]. Dextrose 50% in Water IV: 25 mL, IVP, PRN, PRN: Blood Glucose Results. Dextrose 50% in Water IV: 50 mL, IVP, PRN, PRN: Blood Glucose Results. glucagon: 1 mg, IM, PRN, PRN: Blood Glucose Results. guaiFENesin: 200 mg, PO, Q4H, PRN: Cough. heparin: 5,000 unit, SUB-Q, Q8H. insulin lispro: 1 unit, SUB-Q, TID-Before Meals, PRN: Blood Glucose Results. insulin lispro: 2 unit, SUB-Q, TID-Before Meals, PRN: Blood Glucose Results. insulin lispro: 3 unit, SUB-Q, TID-Before Meals, PRN: Blood Glucose Results. insulin lispro: 4 unit, SUB-Q, TID-Before Meals, PRN: Blood Glucose Results. insulin lispro: 5 unit, SUB-Q, TID-Before Meals, PRN: Blood Glucose Results. insulin lispro: 1 unit, SUB-Q, Bedtime, PRN: Blood Glucose Results. insulin lispro: 2 unit, SUB-Q, Bedtime, PRN: Blood Glucose Results. insulin lispro: 3 unit, SUB-Q, Bedtime, PRN: Blood Glucose Results. insulin lispro: 4 unit, SUB-Q, Bedtime, PRN: Blood Glucose Results. non-formulary: ATTN:RN - UPDATE H/W/A !!!, MISC, Q10Min. Prescribed calcitriol: 0.25 microgram, 1 cap, PO, Daily, 30 cap, 0 Refill(s). carvedilol: 25 mg, 1 tab, PO, Q12H, 60 tab, 0 Refill(s). hydrALAZINE: 50 mg, 1 tab, PO, TID, Hold if SBP is <100 mmhg., 90 tab, 3 Refill(s). pantoprazole: 40 mg, 1 tab, PO, Before Breakfast, for 30 day, 30 tab, 0 Refill(s). polyethylene glycol 3350: 17 gm, PO, Daily, Please mix 1 cap full of powder into 6 oz of water as needed for constipation, 1 box, 0 Refill(s). Documented atorvastatin: 40 mg, 1 tab, PO, Bedtime, 30 tab, 0 Refill(s). bisacodyl: 5 mg, 1 tab, PO, Daily, PRN: Constipation. epoetin mira: 10,000 unit, 1 mL, SUB-Q, Q-Sa, 0 Refill(s). furosemide: 20 mg, PO, BID, 0 Refill(s). Medications Inactivated in the Last 72 Hours albuterol: 14.94 mg, 18 mL, PYXIS, ONCE. albuterol: 10 mg, 12.05 mL, NEB, ONCE. albuterol: 12.45 mg, 15 mL, PYXIS, ONCE. albuterol 83 mg + Sodium Chloride 0.9% IV 233.4 mL: 30 ml/hr, NEB, Stop: 09/16/19 14:49:00 CDT. albuterol-ipratropium: 12 mL, PYXIS, ONCE. cefTRIAXone: 1 gm, PYXIS, ONCE. Dextrose 50% in Water IV: 25 gm, 50 mL, IVP, ONCE. Dextrose 50% in Water IV: 25 gm, 50 mL, PYXIS, ONCE. fentaNYL: 25 microgram, IVP, ONCE. fentaNYL: 100 microgram, 2 mL, PYXIS, ONCE. furosemide: 80 mg, 8 mL, IVP, ONCE. furosemide: 80 mg, 8 mL, PYXIS, ONCE. Insulin regular: 5 unit, 0.05 mL, IV, ONCE. Insulin regular: 100 unit, 1 mL, PYXIS, ONCE. LORazepam: 1 mg, IVP, ONCE. LORazepam: 2 mg, 1 mL, PYXIS, ONCE. metoclopramide: 10 mg, IVP, ONCE. metoclopramide: 10 mg, 2 mL, PYXIS, ONCE. morphine Sulfate: 4 mg, 1 mL, IVP, ONCE. morphine Sulfate: 4 mg, 1 mL, PYXIS, ONCE. morphine Sulfate: 4 mg, IVP, ONCE. morphine Sulfate: 4 mg, 1 mL, PYXIS, ONCE. nitroglycerin: 0.3 mg, 1 tab, SL, ONCE. nitroglycerin: 0.4 mg, 1 tab, PYXIS, ONCE. nitroglycerin: 0.4 mg, 1 tab, SL, ONCE. nitroglycerin 100 mg: Titrate, IV, Stop: 09/16/19 14:55:00 CDT. sodium chloride: 10 mL, IVP, PRN, PRN: Line Flush. Sodium Chloride 0.9% IV: 250 mL, PYXIS, ONCE. Sodium Chloride 0.9% IV: 1,000 mL, PYXIS, ONCE. Sodium Chloride 0.9% IV: 250 mL, PYXIS, ONCE. sodium polystyrene sulfonate: 60 gm, PO, ONCE. sodium polystyrene sulfonate: 60 gm, 240 mL, PYXIS, ONCE. sodium polystyrene sulfonate: 30 gm, 120 mL, PO, ONCE. sterile water: 10 mL, PYXIS, ONCE. Review of systems: Unable to obtain due to the patients condition General: No fevers chills, weight loss, generalized malaise HEENT: No blurring of vision, sore throat, nasal congestion, epistaxis, tinnitus Cardio: No palpitations, chest pain, syncope/near syncope, dyspnea on exertion, paroxysmal nocturnal dyspnea Respiratory: No cough, pain with respiration, hemoptysis + shortness of breath Gastrointestinal: No hematemesis, nausea, vomiting, bloody stool, abdominal pain, diarrhea Genitourinary: No frequency, urgency, nocturia, hematuria, dysuria, flank pain Musculoskeletal: No joint pain or swelling, muscle aches Dermatology: No swelling, bruising, contusions, abrasions, lymphangitis Neurology: No headache, neck pain, numbness or tingling of the extremities. or weakness Endocrine: No excessive thirst or urination, heat or cold intolerance, high blood sugars Hematologic: No bleeding, petechiae, bruising Psychiatric: No depression, hallucinations, suicidal ideation Physical Exam Vitals Tmp(F) Pulse BP RR SpO2 FIO2 08/17 01:00 98.1 --- ----- - - --- --- 24 Hr Tmax: 98.1F (36.72c) at 08/17 01:0 0 Vital Signs are the last 5 in the past 48 hours. Gen: no acute distress HEENT: protecting airway Neuro: alert and oriented, nonlateralizing, no motor or sensory deficits Cardio: S1S2 reg, no murmurs Pulm: diminished at bases Abd: soft, normal bowel sounds Derm: no rash Ext: no edema, no cyanosis, no limb ischemia All labs and imaging from [facility] reviewed Impression: 1. Hypoxia resolved 2. Hypertension emergency resolved 3. ESRD on HD 4. Hyperkalemia 5. DM 6. Anemia Plan: - HD per nephro - resume home BP meds - f/u CXR - monitor Hb - advance diet > 30 min spent reviewing vitals, labs, meds, and imaging Prognosis: guarded with high risk for clinical decline. Extracted from:Title: History and Physical Author: Beena Seymour MD Date: 08/18/19 43-year-old female with history ofESRD o n Monday dialysis, type 2 diabetes, history of right B[facility], [facility]. Acute hypoxicrespiratory failure, improving Hypertensive urgency, resolved Flash pulmonary edema, improving - pt with significant improvement after dialysis - able [place] be [place], will wean off NC as tolerated - may need further diuresis and/or dialy sis - appreciate nephrology and stewarding supervisor recommendations Possible RLL PNA - will start ceftriaxone/azithromycin an d get blood cultures Acute macrocytic anemia - s/p 1 prbc in ED - no signs of bleeding, possibly anemia of renal disease Type 2 DM - SSI ESRD Hyperkalemia, resolved - s/p HD as above heparin IMU, anticipate 2-3 midnights 08/18/2019 [facility] Extracted from:Title: Nephrology Author: Kevin Donald MD Date: 08/17/19 Nephrology and Apheresis Consult DOS: 08/17/2019 Referring Physician: Marva Worthington MD Reason for Consultation: Continuation of dialysis HPI: Ms. Meena Sol is a 43-year-old lady with a history of ESRD on Monday through her right upper extremity AV fistula who came to [facility] ER for acute onset of shortness of breath. Medical history is remarkable for ESRD x2 years on dialysis, diabetes, hypertension, and status post BKA of the right. Ms. Sol had a similar presentation a year ago which also required emergent hemodialysis. At baseline, she still makes urine over 500 cc/day. She normally gets her dialysis at [facility] under a eeg technician whom she cannot recall. Last hemodialysis prior to admission was this past Monday (August 13). She only runs about 3 hours per treatment. It is unclear whether she is compliant to fluid restriction or not. ROS: Positive for shortness of breath, positive for back pain, negative for fevers, negative for sick contacts, negative for international travel, negative for anuria, negative for confusion Meds Reviewed and notable for Nitroglycerin gtt. Medical History See HPI Surgical History See HPI Family History Non-contributory Social History Social drinker, denied any tobacco or drug use PE Vitals remarkable for Systolic blood pressure ranging from 140-220 mmHg Gen: In mild distress, sitting up at a 45 degree angle from the head of the bed Neuro: AO x4 Mouth: On nonrebreather Neck: Positive hepatojugular pulsation Lungs: Speaking in short sentences, use of some of the accessory muscles Abdomen: Obese, no tenderness upon palpation Ext: Status post right BKA : No Palomo Vascular: Right upper extremity AV fistula had a focal pulsatility that is uneven Lab/Radiology studies: Potassium 7.5 mmol/L BUN 64 mg/dL Brain natriuretic peptide 648 pg/mL Hemoglobin 6.6 g/dL White count 11.5K Assessment and Plan: ESRD: Hemodialysis today and will reevaluate for possible repeat session tomorrow Chest pain: Hyperkalemia: Use low potassium bath Anemia: Prefer transfusion given the patient's blood pressure uncontrolled Irregular chest x-ray: Ordered COVID screening test. Most likely flash pulmonary edema from uncontrolled hypertension Respiratory distress: Right BKA status Leukocytosis Hypertension: goal systolic BP 120-140 mmHg Diabetes: goal glucose levels 140-200 mg/dl The patient is clinically unstable with irregular hemodynamics. This required highly complex decision-making in terms of management. 106 minutes of critical care time was spent to evaluate the laboratory, radiological studies, and consultants' input. Over 50% of time was spent [id number] with the patient and I discussed the plan with providers involved. Kevin Donald MD, MS Nephrology and Apheresis Wound care and Hyperbarics [facility] Office: [phone] 08/18/2019 [facility] Extracted from:Title: Nephrology * Author: Ernie Woods MD Date: 01/07/19 Impression and Plan Hyperkalemia resolved with HD Volume overload resolved with HD ESRD on HD Acute hypoxic resp failure resolved Anemia in CKD Hypertensive heart and CKD Recs HD today and MWF for now HTN control Follow Hb and will give GAIL as needed Counseled again about fluid compliance OK to d/c from renal standpoint D/w patient and HD RN as well as Dr Campuzano Extracted from:Title: Clinical Document Author: Joe Campuzano MD Date: 01/07/19 Date of discharge: 01/07/2019. Discharge diagnosis 1. Volume overloaded state, hyperkalemi a, end-stage renal disease 2. Acute hypoxic respiratory failure 3. Hypertensive urgency. Hospital course Patient is a 43-year-old woman who came in with shortness of breath and appeared to be volume overloaded with hyperkalemia. Patient underwent him emergent hemodialysis this admission and clearance. Symptoms have improved. Patient is to have another hemodialysis before being discharged at this time. Patient remains on room air. Patient remains chest pain-free. Her anemia likely due to end-stage renal disease but has not needed hemodialysis this admission as hemoglobin is remained in the 8.7 region. Okay with nephrology services to follow-up as outpatient. Patient seen examined on day of discharge. Vitals at the time of discharge stable. Discharge condition fair Discharge home Please see discharge medicine form Greater than 35 minutes have been spent in discharge planning and coordinating care Follow-up with nephrology services as outpatient. Extracted from:Title: Nephrology * Author: Ernie Woods MD Date: 01/06/19 Impression and Plan Volume overload Hyperkalemia ESRD on HD Anemia in CKD Acute hypoxic resp failure Hypertensive heart and CKD with hypertensive urgency Recs Had emergent HD for volume removal/clearance HD again tomorrow per MWF HTN control Follow Hb D/w patient HD RN and [employer]CTION OFFICER Extracted from:Title: ICU history and physical Author: Brett Guerrero MD Date: 01/06/19 Pulmonary and Critical Care Consult Note Brett Guerrero MD Reason for consult: Hypertensive emergency Pulmonary edema HPI: Patient is a 43-year-old -[place] female past medical history significant for ESRD on HD, diabetes, hypertension, anxiety, hyperlipidemia who presented to the ED with acute volume overload with pulmonary edema and acute hypoxic respiratory failure requiring noninvasive positive pressure ventilation. Chemical Research Technician consulted for further management. Patient reports recent dialysis that was adequate however thereafter developing increasing dyspnea. Patient has mother had multiple similar presentations. No numbness or tingling no changes in sensation. Patient does have a headache but no vision changes. No fevers no chills no neck stiffness. No cough no sputum production. No nausea no vomiting no constipation or diarrhea. No chest pain no palpitations. No abdominal pain. Review of systems: 14 point review of systems negative exce pt as per HPI Allergies Allergies (5) Active Reaction Phenergan None documented Zofran None documented traMADol None documented Tylenol None documented [place] None documented Procedure History section Amputation section Amputation below-knee Cholecystectomy Catheter procedure Past Medical History HTN - Hypertension: 09/07/16 DM (diabetes mellitus): 09/07/16 Biliary colic: 08/17/16 Diabetes mellitus Anxiety Chronic depression HLD (hyperlipidemia) CKD (chronic kidney disease) Pancreatitis Hypercholesteremia Hypertension Diabetes mellitus Kidney disease Family History Father: Heart failure; High blood pressure; Type 2 diabetes mellitus Mother: Heart failure; High blood pressure; Lung cancer; Type 2 diabetes mellitus Social history Sexual Details: Sexually active: No. Alcohol Details: Current, Previous treatment: None. Alcohol use interferes with work or home: No. Drinks more than intended: No. Others hurt by drinking: No. Ready to change: No. Household alcohol concerns: No.; Comment(s): Social drinker Details: Past, Type Wine. Frequency: 1-2 times per month. 12 Drinks/Episode average. 12.00 Drinks/Episode maximum. Last use: July. Started age 15 Years. Previous treatment: None. Alcohol use interferes with work or home: No. Drinks more than intended: No. Others hurt by drinking: No. Ready to change: No. Household alcohol concerns: No.; Comment(s): pt denies current alcohol use Exercise Details: Exercise duration: 30. Exercise frequency: 1-2 times/week. Self assessment: Good condition. Exercise type: Walking. Tobacco Details: Use: Never smoker. Ready to change: No. Household tobacco concerns: No. Tobacco smoke exposure: None. Did the Patient Smoke Cigarettes Anytime During the Last 365 Days? No. Cessation Counseling Provided? No. Details: Use: Never smoker. Type: Cigarettes. Tobacco smoke exposure: None. Did the Patient Smoke Cigarettes Anytime During the Last 365 Days? No. Cessation Counseling Provided? No. Details: Use: Never smoker. Type: Cigarettes. Previous treatment: None. Tobacco smoke exposure: None. Did the Patient Smoke Cigarettes Anytime During the Last 365 Days? No. Cessation Counseling Provided? No. Substance Abuse Details: Use: None. Details: Use: None. Home Meds Home Medications (9) Active atorvastatin 40 mg oral tablet 40 mg = 1 tab, PO, Bedtime calcitriol 0.25 mcg oral capsule 0.25 microgram = 1 cap, PO, Daily carvedilol 25 mg oral tablet 25 mg = 1 tab, PO, Q12H Dulcolax Laxative 5 mg oral enteric coated tablet 5 mg = 1 tab, PRN, PO, Daily epoetin mira 10,000 units/mL preservative-free injectable solution 10,000 unit = 1 mL, SUB-Q, Q- furosemide 20 mg, PO, BID hydrALAZINE 50 mg oral tablet 50 mg = 1 tab, PO, TID pantoprazole 40 mg oral enteric coated tablet 40 mg = 1 tab, PO, Before Breakfast polyethylene glycol 3350 oral kit 17 gm, PO, Daily Scheduled Meds: None Continuous Infusions (1): 01/06/19 nitroglycerin 100 mg (nitroglyc amy 50 mg in D5W 250 mL (Titrate.) IV 100 mg) 100 mg Titrate Labs (Last four charted values) WBC H 10.9 (JAN 06) Hgb L 9.4 (JAN 06) Hct L 27.9 (JAN 06) Plt 306 (JAN 06) Na 137 (JAN 06) K H 5.3 (JAN 06) CO2 24 (JAN 06) Cl 104 (JAN 06) Cr H 11.10 (JAN 06) BUN H 60 (JAN 06) Glucose Random H 217 (JAN 06) Mg 1.8 (JAN 06) Phos H 9.0 (JAN 06) Ca L 7.8 (JAN 06) PT 13.7 (JAN 06) INR 1.07 (JAN 06) PTT 34.9 (JAN 06) Troponin <0.02 (JAN 06) All imaging reviewed. Objective: I&O Record In Out Bal 24hr Tot 0 0 0 24hr Tot 0 0 0 CCL error: %CXJ-[id number]-SMT_EDOC_COMMON(0,0,56)[id number] on array out of bound at (size:1,occur:10). CCL error: %DRC-H-889-SMT_EDOC_COMMON(0,0,56)[id number] on array out of bound at (size:1,occur:5). CCL error: %CVO-E-517-SMT_EDOC_COMMON(0,0,56)[id number]:0653Overflow on array out of bound at (size:1,occur:5). CCL error: %ZSL-[id number]-SMT_EDOC_COMMON(0,0,56)[id number] on array out of bound at (size:1,occur:7). CCL error: %CQO-Z-293-SMT_EDOC_COMMON(0,0,56)[id number] on array out of bound at (size:1,occur:2). (no lines, tubes, drains information doc umented) 01/06/2019 06:15 SpO2 percent 100 01/06/2019 03:45 PEEP/CPAP 7 FIO2 (%) 45 Inspiratory Pressure 14 01/06/2019 02:04 Non-Invasive Vent Mode BIPAP Pressure Support 14 Ambu Bag Mask to O2 Yes Resp Rate, Actual 34 Peak Pressure (cmH2O) 14 Vital Signs (last 24 hrs) Last Charted Temp Oral 97.6 DegF (JAN 06 04:30) Heart Rate Apical H 102bpm (JAN 06 06:15) Resp Rate L 13BRMIN (JAN 06 06:15) Weight 114.09 kg (JAN 06 02:37) Height 167.64 cm (JAN 06 02:37) BMI 40.6 (JAN 06 02:37) Exam: General: Obese, moderate distress, BiPAP in place, morbidly obese HEENT: no pallor, anicteric sclera Cardiovascular: regular, no murmur Respiratory: Distant breath sounds, scattered crackles Abdomen: soft, non-tender, +BS Extremities: no edema, no cyanosis Neurologic: Awake, Nonfocal Skin: no breakdown Problems: Hypertensive emergency Acute hypoxic respiratory failure requiring noninvasive positive pressure ventilation Volume overload ESRD on HD Pulmonary edema Diabetes Plan: Patient initiated on a nitroglycerin drip for hypertensive emergency, maintain SBP 160-170 mmHg and no lower, transition to oral antihypertensives as tolerated Continue noninvasive positive pressure ventilation on current settings, maintain SPO2 at 89-92% and no higher, patient was also probable obstructive sleep apnea present. Can take short breaks with nasal cannula oxygen if work of breathing has improved. ESRD on HD, consult nephrology for dialysis Volume overload pulmonary edema, dialysis as above Prophylaxis: DVT: Heparin GI: Not indicated Nutrition: Renal diet Code Status: Full code Disposition: ICU I spent 35 min of Critical care time , in reviewing, laboratory and radiographic data,in direct management of patient at bedside as well as coordination. Time spent does not include time spent by any other provider or time spent in doing procedure. Patient required critical care due to the acute impairment of vital organ systems and a high probability of imminent and life threatening deterioration. Brett Guerrero MD Pulmonary and Critical Care 01/07/2019 [facility] Extracted from:Title: Clinical Document Author: Joe Campuzano MD Date: 07/25/18 Progress Note - Daily [facility] Completed: Jul, 13:58 by Joe Campuzano MD RM: 155 - 1P, SE C1A MEENA SOL 42y (: 1975) F Attending: Mathew Tolbert MD Service: Internal Medicine Reason for Admission: ESRD, DYSPNEA Working DRG: Code status: Full Code Current diet: Isolation: Contact Allergies: Phenergan, Zofran, traMADol, Tylenol, [place] SUBJECTIVE Chart reviewed Reports having some pain with urination. 24hr Labs 07/25 1119 POC Performing Locatio See Note Glucose POC 180 H 07/25 1020 Hgb 8.6 L Hct 26.0 L 07/25 0616 POC Performing Locatio See Note Glucose POC 107 H 07/25 0348 POC Performing Locatio See Note Glucose POC 155 H 07/24 1615 POC Performing Locatio See Note Glucose POC 129 H [place] still necessary (Yes/No): Line still necessary (Yes/No): Vitals Tmp(F) Pulse BP RR SpO2 FIO2 07/25 11:21 97.9 69 102/68 1 9 --- --- 07/25 10:51 98.0 97 135/73 1 8 --- --- 07/25 07:20 99.0 92 117/77 1 8 --- --- 07/25 04:18 99.1 93 145/78 1 8 93 --- 07/25 00:03 98.4 98 147/87 1 8 98 --- Gen: AAOX3, NAD Neuro: Moving all extremities well CV: RRR, S1 and S2 Lung: Clear to auscultation bilaterally Abdomen: Non-distended, non-tender, no rebound or gaurding, bowel sounds are present. : no supraputic region tenderness. No CVA region tenderness. EXT: Noted bilateral peripheral edema Skin: no rashes or other skin color changes. 24 Hr Tmax: 99.1F (37.28c) at 07/25 04:1 8 Vital Signs are the last 5 in the past 48 hours. Date Wt(kg) Wt(lb) Ht(cm) Ht(in) Method 07/19 (initial) 113.18 249.00 Estimated 07/19 170.18 67.00 Stated I&O Record In Out Bal 07/25 24hr Tot 3 2500 - 2497 07/24 24hr Tot 7 150 -143 Medications (31) Active Scheduled Meds (12): 07/19/18 atorvastatin 40 mg PO Bedtime 07/20/18 calcitriol 0.25 microgram PO Da hans 07/19/18 carvedilol 25 mg PO Q12H 07/19/18 docusate 100 mg PO BID 07/19/18 epoetin mira 10,000 unit SUB-Q Q-M-W-07/19/18 fluconazole (Diflucan) 100 mg P O [id number] 07/19/18 furosemide 20 mg PO BID 07/23/18 heparin 5,000 unit SUB-Q Q12H 07/19/18 hydrALAZINE (hydrALAZINE 50 mg oral tablet) 50 mg PO TID 07/19/18 nystatin topical (nystatin topi [place] 100,000 units/g powder) 1 appl TOP TID 07/19/18 pantoprazole 40 mg PO Before Di nner 07/20/18 polyethylene glycol 3350 17 gm PO Daily Unscheduled Meds: None PRN Meds (17): 07/19/18 Dextrose 50% in Water IV (Dextr ose 50% Syringe) 12.5 gm IVP PRN 07/19/18 Dextrose 50% in Water IV (Dextr ose 50% Syringe) 25 gm IVP PRN 07/19/18 bisacodyl (Dulcolax Laxative) 5 mg PO Daily 07/19/18 glucagon 1 mg IM PRN 07/19/18 insulin lispro 2 unit SUB-Q TID -Before Meals 07/19/18 insulin lispro 4 unit SUB-Q TID -Before Meals 07/19/18 insulin lispro 6 unit SUB-Q TID -Before Meals 07/19/18 insulin lispro 8 unit SUB-Q TID -Before Meals 07/19/18 insulin lispro 10 unit SUB-Q TI D-Before Meals 07/19/18 insulin lispro 1 unit SUB-Q Bed time 07/19/18 insulin lispro 2 unit SUB-Q Bed time 07/19/18 insulin lispro 3 unit SUB-Q Bed time 07/19/18 insulin lispro 4 unit SUB-Q Bed time 07/19/18 labetalol 20 mg IV Q4H 07/19/18 melatonin 3 mg PO Bedtime 07/19/18 metoclopramide (Reglan) 10 mg I [employer] Q8H 07/19/18 morphine Sulfate 2 mg IVP Q4H One Time Meds (2): 07/24/18 (Completed) epoetin mira 10,00 0 unit SUB-Q ONCE 07/24/18 (Completed) oxyCODONE (oxyCODO NE 5 mg oral tablet, immediate release) 5 mg PO ONCE Continuous Infusions: None ASSESSMENT and PLAN *Acute pulmonary edema *Urinary tract infection and dysuria *Acute hyperkalemia *Volume overloaded state *End-stage renal disease and noncompliance *Anemia due to end-stage renal disease *Hypertension *Anemia due to end-stage renal disease Patient seen and examined today 07/25/2018 Urinary tract infection dysuria, new issue: We will begin renally dosed Vantin, get UA and urine culture. Monitor for any signs of sepsis which are not present at this time. End-stage renal disease: Volume status much better. Awaiting placement. Case discussed with case management. Outpatient set up of HD needed. Case discussed with rn case manager today, we are awaiting chair placement. DVT prophylaxis: Heparin Disposition: Discharge planning. Pending placement. Extracted from:Title: Nephrology * Author: Ernie Woods MD Date: 07/19/18 Impression and Plan Volume overload Metabolic Acidosis Hyperkalemia ESRD missed HD Anemia in CKD Hypertensive heart and CKD Recs HD for volume removal/clearance HD again tomorrow HTN control Follow Hb Counseled about compliance SW follow up re HD chair OP D/w patient HD RN Extracted from:Title: History and Physical Author: Rm Pascual MD Date: 07/19/18 Patient is a 42-year-old female past medical history ofhypertension, diabetes,ESRDnonscheduled,last dialyzed 2 weeks ago, presents with complaints of dyspneaand dysuriathat started 2 days ago. Dyspnea(R06.00) Reports improvement of shortness of breath, thinks mayhave been related to anxiety. Last HD 2 weeks ago. Routine HD in the morning. Consult nephrology Ordered: Admit/Condition, 07/19/18 0:14:00 CDT, Status: Out Patient with Observation Services, Telemetry Capable Location, Expected LOS: 1 Midnight, Mulugeta Pascal MD, it Review/Approve Yes, Isolation: Contact, ESRD (end stage renal disease) | Dyspnea ESRD (end stage renal disease)(N18.6) Having issues with dialysis placement,will need social work to follow in the morning toproblem solve. Ordered: Admit/Condition, 07/19/18 0:14:00 CDT, Status: Out Patient with Observation Services, Telemetry Capable Location, Expected LOS: 1 Midnight, Mulugeta Pascal MD, it Review/Approve Yes, Isolation: Contact, ESRD (end stage renal disease) | Dyspnea Hypertension Resume home meds Dysuria R/Ourinary tract infection. UA negative. Pain medicine as needed. Heparin 1 midnight 07/25/2018 [facility] Extracted from:Title: Clinical Document Author: Max Mclaughlin MD Date: 07/02/18 Progress Note - Daily [facility] Completed: Monday, JUL 02, 2018, 13:47 by Max Mclaughlin MD RM: 144 - 1P, SE C1A MEENA SOL 42y (: 1975) F Attending: Mathew Tolbert MD Service: Internal Medicine Reason for Admission: ACUTE HYPOXEMIC RESPIRATORY FAILURE, HYPERTENSION Working DRG: Code status: Full Code Current diet: Isolation: Contact Allergies: Zofran, traMADol, Tylenol, [place] SUBJECTIVE She continues to have some tremors. She is sleepy. She got multiple doses of morphine yesterday. She complains of pain in the sacral area. No headache or weakness endorsed. OBJECTIVE (no lab data in past 24 hours) [place] still necessary (Yes/No): Line still necessary (Yes/No): Vitals Tmp(F) Pulse BP RR SpO2 FIO2 07/02 11:28 98.7 88 131/96 1 6 97 --- 07/02 10:40 98.3 82 123/85 1 6 --- --- 07/02 07:40 98.8 --- ----- - - --- --- 07/02 07:08 ---- --- ----- 1 8 96 --- 07/02 04:44 97.8 80 109/67 1 8 96 --- 24 Hr Tmax: 99.2F (37.33c) at 07/01 20:4 6 Vital Signs are the last 5 in the past 48 hours. Date Wt(kg) Wt(lb) Ht(cm) Ht(in) Method 07/02 112.73 248.00 Measur ed 06/30 110.97 244.13 Measur ed 06/26 112.10 246.62 Measur ed 06/25 (initial) 108.64 239.00 Estimated 06/25 170.18 67.00 Stated I&O Record In Out Bal 07/02 24hr Tot 12 1300 - 1288 07/01 24hr Tot 25 0 25 Medications (15) Active Scheduled Meds (7): 06/27/18 calcitriol 0.25 microgram PO Da hans 06/26/18 carvedilol 25 mg PO Q12H 06/26/18 epoetin mira 10,000 unit SUB-Q Q-M-W-F 06/27/18 heparin 5,000 unit SUB-Q Q12H 06/26/18 hydrALAZINE (hydrALAZINE 50 mg oral tablet) 50 mg PO Q8H 06/26/18 sodium chloride (Saline Flush 0 .9%) 10 ml IVP Q12H 06/29/18 thiamine 100 mg IVP Daily Unscheduled Meds: None PRN Meds (7): 06/26/18 bisacodyl (Dulcolax Laxative) 5 mg PO Daily 06/27/18 morphine Sulfate 2 mg IVP Q4H 06/25/18 nystatin topical (nystatin topi [place] 100,000 units/g powder) 1 appl TOP PRN 06/26/18 nystatin topical (nystatin topi [place] 100,000 units/g ointment) 1 appl TOP BID 06/28/18 promethazine (Phenergan) 25 mg IM Q6H 06/25/18 sodium chloride (Saline Flush 0 .9%) 10 mL IVP PRN 06/25/18 sodium chloride (Saline Flush 0 .9%) 10 ml IVP PRN One Time Meds (1): 07/01/18 (Completed) fluconazole 150 mg PO ONCE Continuous Infusions: None EXAM GEN - NAD HEENT - NCAT. MMM Ext - no c/c/e. R BKA Skin - no rash Neuro: Mental status: Drowsy, opens to eyes to voice x3. Language intact. Follows one step commands CN: PERRL, EOMI, no droop, facial sensation is normal Motor:5/5 throughout, normal tone Sensory: intact to LTx4 Cerebellar: intact ftn Abnormal movements: asterixis with action and sustained posture Assessment/Plan 1. Metabolic encepahlaopthy - EEG modera tely slow with a metabolic pattern. She has ESRD and gabapentin was stoppedOn thiamine. I recommend finding an alternative to cefepime as is can cause neurotoxicity in renal patients. Also need to stop morphine given drowsiness. 2. HTN 3. ESRD 4. DMT2 5. Fever - work up per praimry team Extracted from:Title: General Admission H&P * Author: Rachael Woodson MD Date: 06/28/18 Impression and Plan Diagnosis Volume overload (ZGZ90-XC E87.70, Admitting, Medical). Hypertension, malignant (DXP35-FC I10, Admitting, Medical). Acute hypoxemic respiratory failure (JIM51-QB J96.01, Admitting, Medical). Post-menopausal bleeding (GTU09-NG N95.0, Working, Medical). Orders Pelvic ultrasound. Education and Follow-up: Counseled: Patient. 42yo admitted with Acute hypoxemic respi ratiory failure, Volume overload, and hypertension and post menopausal bleeding PMB: no active bleeding and likely not the cause or related to her anemia of chronic disease; recommend pelvic ultrasound while inpatient and follow up with [facility] as outpatient no further inpatient treatment recommended at this time Extracted from:Title: ICU History and Physical Author: Brett Guerrero MD Date: 06/25/18 Pulmonary and Critical Care Consult Note Brett Guerrero MD Reason for consult: Acute hypoxic respiratory failure requiring noninvasive positive pressure ventilation Hypertensive emergency Volume overload HPI: Patient is a 42-year-old female with past medical history significant for ESRD who is supposed to be on dialysis but is noncompliant. I recently admitted this patient on 06/17/2018 under similar circumstances. Patient has not gone to dialysis in the last week per report. Patient initiated on noninvasive positive pressure ventilation in the emergency department for hypoxia and increased work of breathing. Patient started on nitroglycerin drip for hypertensive emergency. Follow blood pressures in the 200s. Patient unable to fully communicate during interview due to noninvasive positive pressure ventilation. Denies chest pain but reports dyspnea. Patient does report vaginal bleeding and genital area pain. Review of systems: Not able to fully assess due to noninvasive positive pressure ventilation requirement Allergies Allergies (3) Active Reaction traMADol None documented Tylenol None documented [place] None documented Procedure History section Amputation section Amputation below-knee Cholecystectomy Catheter procedure Past Medical History HTN - Hypertension: 09/07/16 DM (diabetes mellitus): 09/07/16 Biliary colic: 08/17/16 Diabetes mellitus Anxiety Chronic depression HLD (hyperlipidemia) CKD (chronic kidney disease) Pancreatitis Hypercholesteremia Hypertension Diabetes mellitus Kidney disease Family History Father: Heart failure; High blood pressure; Type 2 diabetes mellitus Mother: Heart failure; High blood pressure; Lung cancer; Type 2 diabetes mellitus Social history Sexual Details: Sexually active: No. Alcohol Details: Current, Previous treatment: None. Alcohol use interferes with work or home: No. Drinks more than intended: No. Others hurt by drinking: No. Ready to change: No. Household alcohol concerns: No.; Comment(s): Social drinker Details: Past, Type Wine. Frequency: 1-2 times per month. 12 Drinks/Episode average. 12.00 Drinks/Episode maximum. Last use: July. Started age 15 Years. Previous treatment: None. Alcohol use interferes with work or home: No. Drinks more than intended: No. Others hurt by drinking: No. Ready to change: No. Household alcohol concerns: No.; Comment(s): pt denies current alcohol use Exercise Details: Exercise duration: 30. Exercise frequency: 1-2 times/week. Self assessment: Good condition. Exercise type: Walking. Tobacco Details: Use: Never smoker. Ready to change: No. Household tobacco concerns: No. Tobacco smoke exposure: None. Did the Patient Smoke Cigarettes Anytime During the Last 365 Days? No. Cessation Counseling Provided? No. Details: Use: Never smoker. Type: Cigarettes. Tobacco smoke exposure: None. Did the Patient Smoke Cigarettes Anytime During the Last 365 Days? No. Cessation Counseling Provided? No. Details: Use: Never smoker. Type: Cigarettes. Previous treatment: None. Tobacco smoke exposure: None. Did the Patient Smoke Cigarettes Anytime During the Last 365 Days? No. Cessation Counseling Provided? No. Substance Abuse Details: Use: None. Details: Use: None. Home Meds Home Medications (11) Active atorvastatin 40 mg oral tablet 40 mg = 1 tab, PO, Bedtime calcitriol 0.25 mcg oral capsule 0.25 microgram = 1 cap, PO, Daily carvedilol 25 mg oral tablet 25 mg = 1 tab, PO, Q12H epoetin mira 10,000 units/mL preservative-free injectable solution 10,000 unit = 1 mL, SUB-Q, Q- famotidine 20 mg oral tablet 20 mg = 1 tab, PO, BID furosemide 40 mg oral tablet 40 mg = 1 tab, PO, BID gabapentin 300 mg oral capsule 300 mg = 1 cap, PO, Daily hydrALAZINE 50 mg oral tablet 50 mg = 1 tab, PO, TID NIFEdipine 30 mg oral tablet, extended release 30 mg = 1 tab, PO, Q12H pantoprazole 40 mg oral enteric coated tablet 40 mg = 1 tab, PO, Before Breakfast polyethylene glycol 3350 oral kit 17 gm, PO, Daily Scheduled Meds (1): 06/26/18 sodium chloride (Saline Flush 0 .9%) 10 ml IVP Q12H Continuous Infusions (1): 06/25/18 nitroglycerin 100 mg (nitroglyc amy 100 mg in D5W 250 mL (Titrate.) IV 100 mg) 100 mg Titrate MAP 120 Labs (Last four charted values) WBC 10.0 (JUN 25) Hgb L 10.3 (JUN 25) Hct L 31.3 (JUN 25) Plt 398 (JUN 25) Na 137 (JUN 25) K 5.0 (JUN 25) CO2 L 18 (JUN 25) Cl 109 (JUN 25) Cr H 12.30 (JUN 25) BUN H 70 (JUN 25) Glucose Random H 141 (JUN 25) Mg 2.2 (JUN 25) Phos H 8.6 (JUN 25) Ca L 7.8 (JUN 25) PT 13.7 (JUN 25) INR 1.07 (JUN 25) PTT 26.5 (JUN 25) Troponin <0.02 (JUN 25) All imaging reviewed. Objective: I&O Record In Out Bal 24hr Tot 0 0 0 24hr Tot 0 0 0 CCL error: %YSZ-X-096-SMT_EDOC_COMMON(0,0)[id number]:2123Overflow on array out of bound at (size:1,occur:10). CCL error: %VUS-S-333-SMT_EDOC_COMMON(0,0)[id number]:2123Overflow on array out of bound at (size:1,occur:5). CCL error: %EPW-V-186-SMT_EDOC_COMMON(0,0)[id number]:2123Overflow on array out of bound at (size:1,occur:5). CCL error: %BGF-W-961-SMT_EDOC_COMMON(0,0)546170:2123Overflow on array out of bound at (size:1,occur:7). CCL error: %YHL-X-315-SMT_EDOC_COMMON(0,0)165704:2123Overflow on array out of bound at (size:1,occur:2). (no lines, tubes, drains information doc umented) 06/25/2018 21:05 Non-Invasive Vent Mode BIPAP SpO2 percent 100 06/25/2018 19:52 Resp Rate, Set 12 Pressure Support 14 PEEP/CPAP 7 FIO2 (%) 40 Ambu Bag Mask to O2 Yes Resp Rate, Actual 26 Peak Pressure (cmH2O) 13 Inspiratory Time 1.0 Vital Signs (last 24 hrs) Last Charted Temp Oral 97.9 DegF (JUN 25:20) Heart Rate Apical 94 bpm (JUN 25:11) Resp Rate 19 BRMIN (JUN 25:05) SBP H 201mmHg (JUN 25:) DBP 81 mmHg (JUN 25:) SpO2 100 % (JUN 25:) Weight 108.63 kg (JUN 25:) Height 170.18 cm (JUN 25:) BMI 37.51 (JUN 25:) Exam: General: Ill-appearing, BiPAP in place, obese HEENT: no pallor, anicteric sclera Cardiovascular: regular, no murmur Respiratory: Crackles bilaterally Abdomen: soft, non-tender, +BS Extremities: no edema, no cyanosis, right AKA Neurologic: Awake, Nonfocal Skin: no breakdown Problems: Hypertensive emergency Acute hypoxic respiratory failure requiring noninvasive positive pressure ventilation Pulmonary edema Acute failure ESRD on HD Dialysis noncompliance Vaginal bleeding Vaginal pain Normocytic anemia Diabetes Plan: Consult nephrology for emergent dialysis in the setting of acute volume overload, hypertensive emergency, and pulmonary edema requiring continuous noninvasive positive pressure ventilation Continue noninvasive positive pressure ventilation with FiO2 to maintain O2 saturation 89-92%, patient tolerating current settings, low threshold for intubation if further decompensation Continue nitroglycerin drip in the setting of hypertensive emergency, restart oral antihypertensives Nonemergent consult for [employer] for further evaluation of vaginal bleeding, monitor serial hemoglobins, current hemoglobin 10.3 Prophylaxis: DVT: Heparin GI: Not indicated Nutrition: N.p.o. Code Status: Full code Disposition: ICU I spent 33 min of Critical care time , in reviewing, laboratory and radiographic data,in direct management of patient at bedside as well as coordination. Time spent does not include time spent by any other provider or time spent in doing procedure. Patient required critical care due to the acute impairment of vital organ systems and a high probability of imminent and life threatening deterioration. Brett Guerrero MD Pulmonary and Critical Care 07/02/2018 [facility] Extracted from:Title: UIP Hospitalstiven [place] Summary Author: Lolis Sharp MD Date: 06/19/18 [facility] Providers Hospitalist Discharge Summary Code Status: None Specified=FULL CODE Admission Date: 06/17/2018 Discharge Date: 06/19/2018 Discharge Diagnosis: 1. Shortness of breath, volume overload 2. ESRD on HD, missed dialysis x 1 week 3. HTN urgency 4. Recurrent UTIs Consulting Physicians: Consulting Physicians: Brett Guerrero MD Office: Service: Pulmonary Ernie Woods MD Office: Service: Medicine, Nephrology Discharge Condition: fair Hospital Course: This is a 41 year old F with a PMHx of ESRD (TThS) on HD, chronic abdominal pain, recurrent UTI, Type 2 DM, hx of R BKA who presented with worsening shortness of breath for the past week. CXR with evidence of pulmonary edema. She apparently has missed dialysis for the past week due to lack of transportation. Apparently she moved across town and Medicaid transportation needs 7 days to process. She was hypertensive to the 200s sysotlic in the ED, requiring nitro gtt. Hypoxic as well, requiring bipap. Patient also complaining of dysuria and blood when she urinates. This is similar pain to when she has a UTI. Only been AZO at home, no antibiotics. She reports hx of recurrent UTIs. Upon admission, patient emergently dialyzed and weaned off nitro gtt. She is much improved. HD x 2. Will discharge on PO antibiotics. SW consulted for discharge planning. Physical Exam: General: Awake, alert, oriented x 3, NAD HEENT: PERRLA, EOMI. Heart: RRR, normal S1, S2. No murmurs, rubs, gallops Lungs: Clear to auscultation bilaterally. Symmetric chest wall expansion. Abdomen: Soft, non-tender to palpation, non-distended. Bowel sound present in all 4 quadrants. Discharge Instructions: Notify your physician if: Signs of Infection Discharge Activity: Activity: No restrictions Discharge Diet: Diet: Continue Home Diet Discharge Medications: refer to EMR for full list of medications Discharge Follow up: Follow Up With: PCP Follow Up When: 2 Weeks Reason for Follow Up: Follow Up on Treatment Time spent on discharge planning: > 30 minutes Lolis Sharp MD Hospitalist [facility] Extracted from:Title: Nephrology * Author: Ernie Woods MD Date: 06/19/18 Impression and Plan Volume overloadimproved Metabolic Acidosis resolved with HD ESRD missed HD Acute hypoxic resp failure due to fluid overload Anemia in CKD Hypertensive heart and CKD with hypertensive urgency Recs Well dialyzed yesterday No HD today HD per MWF which per patient, is her new OP schedule HTN control ongoing Off IV meds Follow Hb and will give GAIL as needed Counseled again about compliance D/w patient Extracted from:Title: UIP Hospitalist Admission H&P Author: Llois Sharp MD Date: 06/17/18 [facility] Providers Hospitalist Admission History and Physical Code Status: None Specified=FULL CODE Chief Complaint: shortness of breath History of Present Illness: This is a 41 year old F with a PMHx of ESRD (TThS) on HD, chronic abdominal pain, recurrent UTI, Type 2 DM, hx of R BKA who presented with worsening shortness of breath for the past week. CXR with evidence of pulmonary edema. She apparently has missed dialysis for the past week due to lack of transportation. Apparently she moved across town and Medicaid transportation needs 7 days to process. She was hypertensive to the 200s sysotlic in the ED, requiring nitro gtt. Hypoxic as well, requiring bipap. Patient also complaining of dysuria and blood when she urinates. This is similar pain to when she has a UTI. Only been AZO at home, no antibiotics. She reports hx of recurrent UTIs. No fevers, chills. Now in the ICU, respiratory status has improved. Denies chest pain. No nausea and vomiting. Review of Systems: as mentioned in HPI Past Medical History: HTN - Hypertension: 09/07/16 DM (diabetes mellitus): 09/07/16 Biliary colic: 08/17/16 Diabetes mellitus Anxiety Chronic depression HLD (hyperlipidemia) CKD (chronic kidney disease) Pancreatitis Hypercholesteremia Hypertension Diabetes mellitus Kidney disease Past Surgical History: section Amputation section Amputation below-knee Cholecystectomy Catheter procedure Family History: Father: Heart failure; High blood pressure; Type 2 diabetes mellitus Mother: Heart failure; High blood pressure; Lung cancer; Type 2 diabetes mellitus Social History: Sexual Details: Sexually active: No. Alcohol Details: Current, Previous treatment: None. Alcohol use interferes with work or home: No. Drinks more than intended: No. Others hurt by drinking: No. Ready to change: No. Household alcohol concerns: No.; Comment(s): Social drinker Details: Past, Type Wine. Frequency: 1-2 times per month. 12 Drinks/Episode average. 12.00 Drinks/Episode maximum. Last use: July. Started age 15 Years. Previous treatment: None. Alcohol use interferes with work or home: No. Drinks more than intended: No. Others hurt by drinking: No. Ready to change: No. Household alcohol concerns: No.; Comment(s): pt denies current alcohol use Exercise Details: Exercise duration: 30. Exercise frequency: 1-2 times/week. Self assessment: Good condition. Exercise type: Walking. Tobacco Details: Use: Never smoker. Ready to change: No. Household tobacco concerns: No. Tobacco smoke exposure: None. Did the Patient Smoke Cigarettes Anytime During the Last 365 Days? No. Cessation Counseling Provided? No. Details: Use: Never smoker. Type: Cigarettes. Tobacco smoke exposure: None. Did the Patient Smoke Cigarettes Anytime During the Last 365 Days? No. Cessation Counseling Provided? No. Details: Use: Never smoker. Type: Cigarettes. Previous treatment: None. Tobacco smoke exposure: None. Did the Patient Smoke Cigarettes Anytime During the Last 365 Days? No. Cessation Counseling Provided? No. Substance Abuse Details: Use: None. Details: Use: None. Medications: Medications (10) Active Scheduled Meds: None Unscheduled Meds: None PRN Meds (1): 06/17/18 sodium chloride (Saline Flush 0 .9%) 10 mL IVP PRN One Time Meds (8): 06/17/18 (Completed) cefTRIAXone + ster ile water 10 mL (Rocephin + sterile water 10 mL) 1 gm IVPB ONCE 120 ml/hr 06/17/18 (Completed) furosemide (Lasix) 40 mg IVP ONCE 06/17/18 (Completed) furosemide (Lasix) 40 mg IVP ONCE 06/17/18 (Completed) morphine Sulfate 4 mg IVP ONCE 06/17/18 (Completed) nitroglycerin 0.4 mg SL ONCE 06/17/18 (Completed) nitroglycerin (nit roglycerin SL Tab) 0.4 mg SL ONCE 06/17/18 (Completed) nitroglycerin (nit roglycerin SL Tab) 0.4 mg SL ONCE 06/17/18 (Completed) ondansetron (Zofra n) 4 mg IVP ONCE Continuous Infusions (1): 06/17/18 nitroglycerin 100 mg (nitroglyc amy 100 mg in D5W 250 mL (Titrate.) IV 100 mg) 100 mg Titrate Allergies (2) Active Reaction Tylenol None documented [place] None documented Allergies: Physical Exam: Vitals Tmp(F) Pulse BP RR SpO2 FIO2 06/17 10:30 ---- 98 153/98 1 0 100 --- 06/17 10:25 ---- 97 133/95 1 3 100 --- 06/17 10:20 ---- 97 138/90 1 2 100 --- 06/17 10:15 ---- 98 157/103 13 100 40% 06/17 10:10 98.2 100 171/105 12 100 --- 24 Hr Tmax: 98.4F (36.89c) at 06/17 07:0 7 Vital Signs are the last 5 in the past 48 hours. General: Awake, alert, oriented x 3, NAD HEENT: PERRLA, EOMI. Neck: Supple, full ROM Heart: RRR, normal S1, S2. No murmurs, rubs, gallops Lungs: Clear to auscultation bilaterally. Symmetric chest wall expansion. Abdomen: Soft, non-tender to palpation, non-distended. Bowel sound present in all 4 quadrants. MSK: 3+ peripheral edema Skin: No rashes or lesions. No petechiae or bruising noted. Neuro: CN II-XII grossly intact. Psych: Appropriate mood and affect. I&O Record In Out Bal 06/17 24hr Tot 10 0 10 06/16 24hr Tot 0 0 0 Lines, Tubes, and Drains: 06/17/2018 07:49 Peripheral Lines: Antec ubital Left 20 gauge Over the needle catheter 06/17/2018 07:38 Peripheral Lines: Antec ubital Right 20 gauge Over the needle catheter Labs: Hct: 30.3 % Low (06/17/18 07:31:00) Hgb: 10.2 g/dL Low (06/17/18 07:31:00) MCH: 30.7 pg (06/17/18 07:31:00) MCHC: 33.6 g/dL (06/17/18 07:31:00) MCV: 91.3 fL (06/17/18 07:31:00) MPV: 7.5 fL (06/17/18 07:31:00) Platelet: 250 K/CMM (06/17/18 07:31:00) RBC: 3.32 M/CMM Low (06/17/18 07:31:00) RDW: 15.6 % High (06/17/18 07:31:00) WBC: 12.9 K/CMM High (06/17/18 07:31:00) CO2: 18 mEq/L Low (06/17/18 07:31:00) Chloride Lvl: 109 mEq/L (06/17/18 07:31:00) Sodium Lvl: 140 mEq/L (06/17/18 07:31:00) Glucose Lvl: 173 mg/dL High (06/17/18 07:31:00) Calcium Lvl: 7.7 mg/dL Low (06/17/18 07:31:00) Potassium Lvl: 5 mEq/L (06/17/18 07:31:00) BUN: 60 mg/dL High (06/17/18 07:31:00) AGAP: 18 mEq/L (06/17/18 07:31:00) Creatinine Lvl: 10.1 mg/dL High (06/17/18 07:31:00) Imaging: Reviewed Assessment/Plan: 1. Shortness of breath, volume overload 2. ESRD on HD, missed dialysis x 1 week 3. HTN urgency 4. Recurrent UTIs Plan: -Nephrology contacted for urgent dialysi s. Patient missed dialysis due to transportation issues. Will need to discussed with SW tomorrow so this doesn't become a recurrent issue moving forward. In the past, she has frequently missed dialysis, last admission in October, she missed dialysis for 1 month. -She is currently off the nitro gtt, can restart home blood pressure medications -wean NIPPV as tolerated -F/u UA and culture, empiric Rocephin fo r UTI -supportive care Prophylaxis: heparin Disposition: 3 [place] Lolis Sharp MD Hospitalist [place] [facility] Extracted from:Title: ICU consult note Author: Brett Guerrero MD Date: 06/17/18 Pulmonary and Critical Care Consult Note Brett Guerrero MD Reason for consult: Hypertensive emergency Acute hypoxic respiratory failure requiring noninvasive positive pressure ventilation HPI: Patient is a 42-year-old female with past medical history significant for ESRD who is supposed to be on dialysis however she is noncompliant. She now presents with worsening dyspnea and found to be hypoxic with imaging demonstrating pulmonary edema. Patient requiring continuous noninvasive positive pressure ventilation in the ER. Denies fevers or chills. No sick contacts. Started on nitroglycerin drip for hypertensive emergency. Patient unable to fully communicate during interview due to continuous noninvasive positive pressure ventilation. Review of systems: Unable to fully assess due to patient clinical condition Allergies Allergies (2) Active Reaction Tylenol None documented [place] None documented Procedure History section Amputation section Amputation below-knee Cholecystectomy Catheter procedure Past Medical History HTN - Hypertension: 09/07/16 DM (diabetes mellitus): 09/07/16 Biliary colic: 08/17/16 Diabetes mellitus Anxiety Chronic depression HLD (hyperlipidemia) CKD (chronic kidney disease) Pancreatitis Hypercholesteremia Hypertension Diabetes mellitus Kidney disease Family History Father: Heart failure; High blood pressure; Type 2 diabetes mellitus Mother: Heart failure; High blood pressure; Lung cancer; Type 2 diabetes mellitus Social history Sexual Details: Sexually active: No. Alcohol Details: Current, Previous treatment: None. Alcohol use interferes with work or home: No. Drinks more than intended: No. Others hurt by drinking: No. Ready to change: No. Household alcohol concerns: No.; Comment(s): Social drinker Details: Past, Type Wine. Frequency: 1-2 times per month. 12 Drinks/Episode average. 12.00 Drinks/Episode maximum. Last use: July. Started age 15 Years. Previous treatment: None. Alcohol use interferes with work or home: No. Drinks more than intended: No. Others hurt by drinking: No. Ready to change: No. Household alcohol concerns: No.; Comment(s): pt denies current alcohol use Exercise Details: Exercise duration: 30. Exercise frequency: 1-2 times/week. Self assessment: Good condition. Exercise type: Walking. Tobacco Details: Use: Never smoker. Ready to change: No. Household tobacco concerns: No. Tobacco smoke exposure: None. Did the Patient Smoke Cigarettes Anytime During the Last 365 Days? No. Cessation Counseling Provided? No. Details: Use: Never smoker. Type: Cigarettes. Tobacco smoke exposure: None. Did the Patient Smoke Cigarettes Anytime During the Last 365 Days? No. Cessation Counseling Provided? No. Details: Use: Never smoker. Type: Cigarettes. Previous treatment: None. Tobacco smoke exposure: None. Did the Patient Smoke Cigarettes Anytime During the Last 365 Days? No. Cessation Counseling Provided? No. Substance Abuse Details: Use: None. Details: Use: None. Home Meds Home Medications (14) Active atorvastatin 40 mg oral tablet 40 mg = 1 tab, PO, Bedtime calcitriol 0.25 mcg oral capsule 0.25 microgram = 1 cap, PO, Daily carvedilol 25 mg oral tablet 25 mg = 1 tab, PO, BID carvedilol 25 mg oral tablet 25 mg = 1 tab, PO, Q12H epoetin mira 10,000 units/mL preservative-free injectable solution 10,000 unit = 1 mL, SUB-Q, Q- famotidine 20 mg oral tablet 20 mg = 1 tab, PO, BID furosemide 40 mg oral tablet 40 mg = 1 tab, PO, BID hydrALAZINE 50 mg oral tablet 50 mg = 1 tab, PO, TID levofloxacin 500 mg oral tablet 500 mg = 1 tab, PO, [id number] NIFEdipine 30 mg oral tablet, extended release 30 mg = 1 tab, PO, Q12H pantoprazole 40 mg oral enteric coated tablet 40 mg = 1 tab, PO, Before Breakfast pantoprazole 40 mg oral enteric coated tablet 40 mg = 1 tab, PO, Before Breakfast polyethylene glycol 3350 oral kit 17 gm, PO, Daily tramadol 100 mg oral tablet, extended release 100 mg = 1 tab, PO, Daily Scheduled Meds: None Continuous Infusions (1): 06/17/18 nitroglycerin 100 mg (nitroglyc amy 100 mg in D5W 250 mL (Titrate.) IV 100 mg) 100 mg Titrate Labs (Last four charted values) WBC H 12.9 (JUN 17) Hgb L 10.2 (JUN 17) Hct L 30.3 (JUN 17) Plt 250 (JUN 17) Na 140 (JUN 17) K 5.0 (JUN 17) CO2 L 18 (JUN 17) Cl 109 (JUN 17) Cr H 10.10 (JUN 17) BUN H 60 (JUN 17) Glucose Random H 173 (JUN 17) Mg 1.9 (JUN 17) Phos H 6.2 (JUN 17) Ca L 7.7 (JUN 17) PT 13.7 (JUN 17) INR 1.07 (JUN 17) Troponin 0.03 (JUN 17) Total CK H 289 (JUN 17) All imaging reviewed. Objective: I&O Record In Out Bal 06/17 24hr Tot 10 0 10 06/16 24hr Tot 0 0 0 Lines, Tubes, and Drains: 06/17/2018 07:49 Peripheral Lines: Antec ubital Left 20 gauge Over the needle catheter 06/17/2018 07:38 Peripheral Lines: Antec ubital Right 20 gauge Over the needle catheter 06/17/2018 10:30 SpO2 percent 100 06/17/2018 10:15 FIO2 (%) 40 06/17/2018 08:02 Non-Invasive Vent Mode BIPAP Resp Rate, Set 12 Pressure Support 15 PEEP/CPAP 8 Ambu Bag Mask to O2 Yes Resp Rate, Actual 34 Peak Pressure (cmH2O) 15 Vital Signs (last 24 hrs) Last Charted Temp Oral 98.2 DegF (JUN 17 10:10) Heart Rate Apical 98 bpm (JUN 17 10:30) Resp Rate L 10BRMIN (JUN 17 10:30) SBP H 153mmHg (JUN 17 10:30) DBP H 98mmHg (JUN 17 10:30) SpO2 100 % (JUN 17 10:30) Weight 111.36 kg (JUN 17 07:07) Height 170.18 cm (JUN 17 07:07) BMI 38.45 (JUN 17 07:07) Exam: General: Ill-appearing, BiPAP in place HEENT: no pallor, anicteric sclera Cardiovascular: regular, no murmur Respiratory: Crackles bilaterally Abdomen: soft, non-tender, +BS Extremities: no edema, no cyanosis, right AKA Neurologic: Awake, Nonfocal Skin: no breakdown Problems: Hypertensive emergency Pulmonary edema Acute failure ESRD on HD Dialysis noncompliance Plan: Consult nephrology for emergent dialysis in the setting of acute pulmonary edema requiring continuous noninvasive positive pressure ventilation Continue noninvasive positive pressure ventilation with FiO2 to maintain O2 saturation 89-92%, patient tolerating current settings, low threshold for intubation if further decompensation Continue nitroglycerin drip in the setting of hypertensive emergency, restart oral antihypertensives Prophylaxis: DVT: Heparin GI: Not indicated Nutrition: N.p.o. Code Status: Full code Disposition: ICU I spent 32 min of Critical care time , in reviewing, laboratory and radiographic data,in direct management of patient at bedside as well as coordination. Time spent does not include time spent by any other provider or time spent in doing procedure. Patient required critical care due to the acute impairment of vital organ systems and a high probability of imminent and life threatening deterioration. Brett Guerrero MD Pulmonary and Critical Care 06/19/2018 ANGELICA Beth Extracted from:Title: Team A Med Student Progress Note Author: Tru Valenzuela Date: 11/12/17 Chief Complaint Patient is a 42 y/o female who presented with SOB, pain with urination, and flank pain. Patient missed dialysis for 1 month. Hx of ESRD, RBKA, HTN, DM, CHF. SUBJECTIVE No events overnight. Patient this AM endorsed generalized abdominal pain and moderate CVA tenderness. Objective Vitals T 98.2 BP 123/78 P 79 RR 18 O2 99 Physical Exam: General: AxOx3 Eye: PERRL. No icterus HEENT: NC/AT, Oral mucosa moist, No pharyngeal erythema Neck: No JVD, No LNs Chest: No r/r/r. Respirations non-labored CVS: RRR, S1S2 N. No m/r/g Abdomen: Soft, Tender bilaterally : + CVA tenderness Skin: No rashes or lesions MSK: R BKA pitting edema Neuro: AxOx3, no focal deficits Labs 11/11 0901 POC Performing Locatio See Note Glucose POC 98 11/10 2045 POC Performing Locatio See Note Glucose POC 88 11/10 1138 POC Performing Locatio See Note Glucose POC 102 H 11/10 0732 POC Performing Locatio See Note Glucose POC 109 H 11/10 0517 Glucose Lvl 119 H BUN 28 H Creatinine Lvl 7.16 H Sodium Lvl 140 Potassium Lvl 3.9 Chloride Lvl 105 CO2 27 AGAP 11.9 Calcium Lvl 7.1 L eGFR 7 Magnesium Lvl 2.2 Phosphorus 4.7 H WBC 5.4 RBC 2.66 L Hgb 8.0 L Hct 24.8 L MCV 93.1 MCH 30.0 MCHC 32.2 RDW 15.0 H Platelet 185 MPV 8.8 Segs 53.5 Monocytes 10.9 Lymphocytes 32.4 Eosinophils 2.5 Basophils 0.7 Segs-Bands # 2.9 Lymphocytes # 1.7 Monocytes # 0.6 Eosinophils # 0.1 Medications 11/10/17 9:00 NIFEdipine (NIFEdipine 30 mg oral tablet, extended release) 30 mg PO Q12H 11/06/17 9:00 aspirin (aspirin 81 mg tab let, chewable) 81 mg PO Daily 11/06/17 0:00 atorvastatin 40 mg PO Bedt ramon 11/09/17 16:00 calcitriol 0.25 microgram PO Daily 11/06/17 1:28 carvedilol 25 mg PO Q12H 11/11/17 0:00 heparin 5,000 unit SUB-Q Q 8H 11/08/17 18:00 levofloxacin 500 mg IV Q4 8H 100 ml/hr 11/06/17 9:00 polyethylene glycol 3350 ( MiraLax) 17 gm PO Daily 11/06/17 9:00 senna (senna 8.6 mg oral t ablet) 17.2 mg PO BID ASSESSMENT and PLAN Klebsiella Sepsis: - 2/2 Cath line likely - Levofloxacin 500 mg IV q48 - BCx no growth for 72 hours as of 11/11 ESRD: - Dialysis TTS - Line holiday beginning 11/08, placement on 11/13 IR - Strict I/Os - Monitor electrolytes HTN - coreg 25 mg PO q12h - Nifedipine 30 mg q12 DM -SSI HLD -Atorvastatin 40 mg- held DVT prophylaxis: Subq heparin Extracted from:Title: IR Physician Consult Note Author: Tommy Jimenes MD Date: 11/10/17 Interventional Radiology Consult Reason for Consultation: tunneled dialysis catheter placement Referring Physician:[place] History of Present Illness: patient is a 42 year old female with history of ESRD who recently had her permacath pulled due to bacteremia. Her blood cultures have been negative for at least 48 hours. IR consulted for placing tunneled dialysis catheter so the patient can resume her normal dialysis schedule. Past Medical History: No qualifying data available Past Surgical History: No qualifying data available Social History: Tobacco Details: Use: Never smoker. Ready to change: No. Household tobacco concerns: No. Tobacco smoke exposure: None. Did the Patient Smoke Cigarettes Anytime During the Last 365 Days? No. Cessation Counseling Provided? No. Family History: No qualifying data available Allergies Reviewed: Allergies: NKDA Current Medications: Medications (23) Active Scheduled Meds (9): 11/10/17 NIFEdipine (NIFEdipine 30 mg or al tablet, extended release) 30 mg PO Q12H 11/06/17 aspirin (aspirin 81 mg tablet, chewable) 81 mg PO Daily 11/06/17 atorvastatin 40 mg PO Bedtime 11/09/17 calcitriol 0.25 microgram PO Da hans 11/06/17 carvedilol 25 mg PO Q12H 11/11/17 heparin 5,000 unit SUB-Q Q8H 11/08/17 levofloxacin 500 mg IV Q48H 100 ml/hr 11/06/17 polyethylene glycol 3350 (Marquita ax) 17 gm PO Daily 11/06/17 senna (senna 8.6 mg oral tablet ) 17.2 mg PO BID Unscheduled Meds: None PRN Meds (12): 11/07/17 Dextrose 50% in Water IV (Dextr ose 50% Syringe) 12.5 gm IVP PRN 11/07/17 Dextrose 50% in Water IV (Dextr ose 50% Syringe) 25 gm IVP PRN 11/06/17 acetaminophen-codeine (Tylenol with Codeine #3 oral tablet) 1 tab PO Q6H 11/06/17 acetaminophen (Tylenol) 650 mg PO Q6H 11/07/17 glucagon 1 mg IM PRN 11/07/17 insulin lispro 1 unit SUB-Q TID -Before Meals 11/07/17 insulin lispro 2 unit SUB-Q TID -Before Meals 11/07/17 insulin lispro 3 unit SUB-Q TID -Before Meals 11/07/17 insulin lispro 4 unit SUB-Q TID -Before Meals 11/07/17 insulin lispro 5 unit SUB-Q TID -Before Meals 11/09/17 morphine Sulfate 2 mg IV Q6H 11/05/17 sodium chloride (Saline Flush 0 .9%) 10 mL MISC PRN One Time Meds (2): 11/09/17 (Completed) hydrALAZINE 10 mg IV ONCE 11/09/17 (Completed) promethazine (Phen ergan) 6.25 mg PO ONCE Continuous Infusions: None Labs: 24hr Labs 11/10 1138 POC Performing Locatio See Note Glucose POC 102 H 11/10 0732 POC Performing Locatio See Note Glucose POC 109 H 11/10 0517 Glucose Lvl 119 H BUN 28 H Creatinine Lvl 7.16 H Sodium Lvl 140 Potassium Lvl 3.9 Chloride Lvl 105 CO2 27 AGAP 11.9 Calcium Lvl 7.1 L eGFR 7 Magnesium Lvl 2.2 Phosphorus 4.7 H WBC 5.4 RBC 2.66 L Hgb 8.0 L Hct 24.8 L MCV 93.1 MCH 30.0 MCHC 32.2 RDW 15.0 H Platelet 185 MPV 8.8 Segs 53.5 Monocytes 10.9 Lymphocytes 32.4 Eosinophils 2.5 Basophils 0.7 Segs-Bands # 2.9 Lymphocytes # 1.7 Monocytes # 0.6 Eosinophils # 0.1 11/096 Troponin-I 0.07 Troponin-T 0.192 C 11/09 2028 POC Performing Locatio See Note Glucose POC 116 H 11/09 1701 POC Performing Locatio See Note Glucose POC 85 11/09 1657 Ca Ion WB 0.86 C Ca Norm WB 0.89 C Troponin-T 0.155 C Troponin-I 0.05 11/08 1412 Hep Bs Ab 276.2 H Hep C Ab Negative Physical Examination: Gen: AAO x3, NAD Vitals Tmp(F) Pulse BP RR SpO2 FIO2 11/10 15:45 98.3 77 124/85 2 0 99 --- 11/10 11:39 98 82 165/83 20 98 --- 11/10 07:29 98.2 81 126/76 2 0 97 --- 11/10 06:37 98.1 86 107/66 2 0 96 --- 11/10 00:26 98.6 83 146/84 2 0 99 --- 24 Hr Tmax: 98.7F (37.06c) at 11/09 20:0 0 Vital Signs are the last 5 in the past 48 hours. HEENT: normocephalic Neck: Supple Resp: Clear to auscultation bilaterally CV: RRR Abd: soft Impression/Plan: 42 year old female with history of ESRD. She recently had her access pulled due to bacteremia. IR consulted for placement of tunneled dialysis catheter placement to resume her normal dialysis schedule. informed consent obtained after the patient counseled on the risks, benefits, and alternatives of the procedures. we will proceed with image guided tunneled catheter placement. thank you for the consult. THANK YOU FOR CONSULTING INTERVENTIONAL RADIOLOGY, IF YOU HAVE ANY QUESTIONS, PLEASE CONTACT [phone]. Extracted from:Title: History and Physical Author: Katja Pena MD Date: 11/07/17 42 yo F with history of ESRD on TTS HD, T2DM, HFpEF, Hx of pancreatitis presents for SOB d/t incompliance with HD x1 month. Initially admitted to ICU for hypoxemia resp failure requiring BiPap, since improved and HDS on RAwith persistent tachycardia. However, found to have K. pneumoniae bacteremia and on Merrem and Zyvox. Renal on board. Please see network intern's note for full H&P. 1.Klebsiella sepsis - 11/05 BCx = +GNR bacteremia, K pneumoni ae per Verigene - LA 1.4; WBC 8.5 - Cont Merrem and Zyvox 2.ESRD on dialysis - Renal on board - no emergent HD req'd - on TTS HD 3.Diabetes 4.Diastolic heart failure 5.Poor social situation 11/12/2017 [facility] Extracted from:Title: Clinical Document Author: Yelena Scherer MD Date: 09/26/17 Nephrology progress Note SUBJECTIVE: Patient seen and evaluated at bedside. No overnight events. Denies chest pain, nausea, vomiting, diarrhea, headache, lightheadness, abdomen pain or dizziness. OBJECTIVE: Vitals Tmp(F) Pulse BP RR SpO2 FIO2 09/26 11:50 98.5 96 117/77 1 5 98 --- 09/26 11:29 ---- --- ----- 1 8 97 21% 09/26 11:05 98.0 86 102/67 1 8 --- --- 09/26 07:28 98.5 86 108/65 1 8 --- --- 09/26 06:54 ---- 92 107/70 1 8 --- --- 24 Hr Tmax: 98.9F (37.17c) at 09/25 20:4 9 Vital Signs are the last 5 in the past 48 hours. I&O Record In Out [facility] 09/26 24hr Tot 0 1999 - 09/25 24hr Tot 260 0 260 Labs (Last four charted values) WBC 6.9 (SEP 23) 6.5 (SEPTEMBER 21) 8.3 (SEPTEMBER 18) H 16.9 (SEPTEMBER 16) Hgb L 11.5 (SEP 23) L 10.2 (SEPTEMBER 21) L 8.4 (SEPTEMBER 18) L 9.2 (SEPTEMBER 16) Hct L 34.7 (SEP 23) L 31.1 (SEPTEMBER 21) L 24.8 (SEPTEMBER 18) L 28.5 (SEPTEMBER 16) Plt 304 (SEP 23) 334 (SEPTEMBER 21) 240 (SEPTEMBER 18) 287 (SEPTEMBER 16) Na L 132 (SEP 26) 136 (SEP 23) 142 (SEPTEMBER 18) 142 (SEPTEMBER 16) K H 5.2 (SEP 26) 4.2 (SEP 23) 4.4 (SEPTEMBER 18) H 5.6 (SEPTEMBER 16) CO2 L 17 (SEP 26) 24 (SEP 23) 24 (SEPTEMBER 18) L 18 (SEPTEMBER 16) Cl 102 (SEP 26) 101 (SEP 23) 106 (SEPTEMBER 18) H 110 (SEPTEMBER 16) Cr H 10.50 (SEP 26) H 7.65 (SEP 23) H 6.91 (SEPTEMBER 18) H 9.56 (SEPTEMBER 16) BUN H 41 (SEP 26) H 28 (SEP 23) H 45 (SEPTEMBER 18) H 87 (SEPTEMBER 16) Glucose Random H 163 (SEP 26) H 110 (SEP 23) H 162 (SEPTEMBER 18) H 132 (SEPTEMBER 16) Ca L 7.7 (SEP 26) 9.1 (SEP 23) L 7.8 (SEPTEMBER 18) L 7.9 (SEPTEMBER 16) Troponin 0.03 (SEPTEMBER 16) CK MB 2.1 (SEPTEMBER 16) Total CK H 461 (SEPTEMBER 16) Medications (13) Active Scheduled: (8) atorvastatin 40mg tab 40 mg 1 tab, PO, Bedtime carvedilol 12.5 mg TAB 25 mg 2 tab, PO, BID epoetin mira 10,000 unit/1 mL INJ (ESRD) 10,000 unit 1 mL, SUB-Q, Q- famotidine 20 mg tab 20 mg 1 tab, PO, BID furosemide 40 mg TAB 40 mg 1 tab, PO, BID hydrALAZINE 50 mg TAB 50 mg 1 tab, PO, TID NIFEdipine 90 mg ERTAB 90 mg 1 tab, PO, Daily sodium chloride 0.9% 10 ml flush syr BD 10 ml, IVP, Q12H Continuous: (0) PRN: (5) cyclobenzaprine 10 mg TAB 10 mg 1 tab, PO, TID nitroglycerin 0.4 mg TAB 25's btl 0.4 mg 1 tab, SL, Q5Min nystatin 519356 unit/gm 15 gm PWD 1 appl, TOP, PRN oxyCODONE IR 5 mg TAB 5 mg 1 tab, PO, Q6H sodium chloride 0.9% 10 ml flush syr BD 10 ml, IVP, PRN PHYSICAL EXAM: General: Alert and oriented, No acute distress. Eye: Pupils are equal, round and reactive to light, Extraocular movements are intact, Normal conjunctiva. HENT: Normocephalic, Oral mucosa is moist. Neck: Supple, Non-tender, No jugular venous distention. Respiratory: Lungs are clear to auscultation, Respirations are non-labored. Cardiovascular: Normal rate, Regular rhythm, No murmur. Gastrointestinal: Soft, Non-tender, Non-distended, Normal bowel sounds. Genitourinary: No costovertebral angle tenderness. Musculoskeletal Normal range of motion. Normal strength. Integumentary: Warm, Dry. Neurologic: Alert, Oriented. Cognition and Speech: Oriented, Speech clear and coherent. Psychiatric: Cooperative, Appropriate mood and affect. Chest x-ray: IMPRESSION: Moderate pulmonary vascular congestion. Hazy opacities within the right upper to midlung, which may represent pulmonary edema, pneumonitis or atelectasis. Impression and Plan 1. ESRD on HD TTS 2. Anemia of ESRD 3. Secondary hyperparathyroidism 4. Medical noncompliance 5. Type 2 diabetes 6. Hypertension Plan: HD today per schedule, BFR 400 cc/min, GFR 800 cc/min, 2K bath, 2.5 calcium, 4 L ultrafiltration, standard bicarb and sodium bath, duration 3.5 hours Continue with phosphorus binders, renal diet Erythropoietin subcu A.m. labs Discussed with case management about outpatient HD unit set up. Patient was released from her prior dialysis unit due to noncompliance. Still pending arrangement for HD unit for outpatient. Spoke with case management. Extracted from:Title: Clinical Document Author: Priscila Hathaway MD Date: 09/16/17 PULMONARY AND CRITICAL CARE CONSULT NOTE Reason for consult: Acute hypoxemic failure History of presenting illness: Patient is a 41-year-old female who has no history of ESRD she is noncompliant with her dialysis she supposed to go 3 times a week follows up with the eeg technician at [facility], however she states she has not had dialysis for a month, she presents here with episodes of shortness of breath on arrival he was found to have hyperkalemia potassium 5.6, also had a creatinine of 9.56. Her chest x-ray shows evidence of pulmonary edema and was started on a nitro drip with relief in symptoms. As a part of treatment she was also started on BiPAP hence in ICU consultation was requested. I came and evaluated the patient at bedside, she denies any fevers chills denies any sick contacts states that she is unable to go to dialysis due to her issues which she does not elaborate on further. She seen by Dr. Rivera and colleagues whenever she comes to this facility PAST MEDICAL HISTORY HTN - Hypertension: 09/07/16 DM (diabetes mellitus): 09/07/16 Biliary colic: 08/17/16 Diabetes mellitus Anxiety Chronic depression HLD (hyperlipidemia) CKD (chronic kidney disease) Pancreatitis Hypercholesteremia Hypertension Diabetes mellitus Kidney disease FAMILY HISTORY Father: Heart failure; High blood pressure; Type 2 diabetes mellitus Mother: Heart failure; High blood pressure; Lung cancer; Type 2 diabetes mellitus SURGICAL HISTORY section Amputation section Amputation below-knee Cholecystectomy Catheter procedure SOCIAL HISTORY Sexual Details: Sexually active: No. Alcohol Details: Current, Previous treatment: None. Alcohol use interferes with work or home: No. Drinks more than intended: No. Others hurt by drinking: No. Ready to change: No. Household alcohol concerns: No.; Comment(s): Social drinker Details: Past, Type Wine. Frequency: 1-2 times per month. 12 Drinks/Episode average. 12.00 Drinks/Episode maximum. Last use: July. Started age 15 Years. Previous treatment: None. Alcohol use interferes with work or home: No. Drinks more than intended: No. Others hurt by drinking: No. Ready to change: No. Household alcohol concerns: No.; Comment(s): pt denies current alcohol use Exercise Details: Exercise duration: 30. Exercise frequency: 1-2 times/week. Self assessment: Good condition. Exercise type: Walking. Tobacco Details: Use: Never smoker. Type: Cigarettes. Tobacco smoke exposure: None. Did the Patient Smoke Cigarettes Anytime During the Last 365 Days? No. Cessation Counseling Provided? No. Details: Use: Never smoker. Type: Cigarettes. Previous treatment: None. Tobacco smoke exposure: None. Did the Patient Smoke Cigarettes Anytime During the Last 365 Days? No. Cessation Counseling Provided? No. Substance Abuse Details: Use: None. Details: Use: None. Lines, Tubes, and Drains: 09/16/2017 07:06 Peripheral Lines: Antec ubital Left 20 gauge Over the needle catheter ALLERGIES Allergies (1) Active Reaction NKDA None Documented Review of Systems CONSTITUTIONAL: no fever. chills. dizziness. weakness. EYES: No pain, erythema, or discharge, blurring of vision. EAR, NOSE AND THROAT: No sore throat, URI symptoms, epistaxis,tinnitus. CARDIOVASCULAR: No chest pain. No palpitations. + lower extremity edema. RESPIRATORY: +++shortness of breath, cough, pain with respiration, or pleuritic chest pain. No hemoptysis. No dyspnea. No paroxysmal nocturnal dyspnea. GASTROINTESTINAL: Normal appetite. No dysphagia, nausea, vomiting, diarrhea. No pain. No bleeding. GENITOURINARY: No frequency, urgency, nocturia, hematuria or dysuria. MUSCULOSKELETAL: No arthralgias or myalgias. INTEGUMENTARY: No swelling, bruising, contusions,abrasions, lymphangitis. NEUROLOGIC: No headache, neck pain, numbness or tingling of the extremities. or weakness. METABOLIC:No history of thyroid, diabetes or adrenal problems. HEMATOLOGICAL: No bleeding, petechiae,bruising. ALLERGY: No asthma, urticaria. PSYCHIATRIC: No confusion or depression GENERAL EXAMINATION Vitals and Temp: Vitals Tmp(F) Pulse BP RR SpO2 FIO2 09/16 08:52 98 94 132/90 12 --- --- 09/16 08:42 ---- 95 153/100 13 --- --- 05/26 07:23 ---- 105 203/117 19 --- --- 09/16 07:01 ---- 108 171/116 21 100 --- 09/16 06:27 ---- 107 181/123 30 100 60% 24 Hr Tmax: 98F (36.67c) at 09/16 08:52 Vital Signs are the last 5 in the past 48 hours. General: Lying in bed awake interactive not in any distress eyes: Sclera anicteric, conjunctiva pink ENT: Tongue moist neck: Supple, no use of accessory muscles, no JVD Heart: Regular rate and rhythm, S1 and S2 heard, no murmurs Lungs: Clear to auscultation bilaterally, no evidence of accessory muscle use Abdomen: Soft, obese, Non tender. BS + : deferred Extremities: no evidence of edema in legs, hands and feet are cool Skin: No rashes,or bruising Neurologic: AO X 3, no focal deficit. Psych : normal mood and affect MEDICATION Medications (13) Active Scheduled: (7) calcium gluconate 1gm/ NS 50 ml premix 1 gm 50 mL, IVPB, ONCE Dextrose 50% 50 ml INJ syringe 25 gm 50 mL, IVP, ONCE famotidine 20 mg, IVP, Q12H insulin reg human rec 100 unit/ml INJ 1ml 5 unit 0.05 mL, IVP, ONCE sodium bicarbonate 8.4% 1mEq/ml INJ 50 ml syringe 50 mEq 50 mL, IVP, ONCE sodium chloride 10 ml, IVP, Q12H sodium polystyrene sulfonate STEPHANIE 15gm/60ml 15 gm 60 mL, PO, ONCE Continuous: (1) nitroglycerin 100 mg/250ml D5W INJ 100 mg 100 mg 250 mL, IV PRN: (5) nitroglycerin 0.4 mg TAB 25's btl 0.4 mg 1 tab, SL, Q5Min nystatin topical 1 appl, TOP, PRN sodium chloride 10 ml, IVP, PRN sodium chloride 0.9% 10 ml flush syr BD 10 mL, IVP, PRN sodium chloride 0.9% 10 ml flush syr BD 10 mL, IVP, PRN Home Medications (6) Active atorvastatin 40 mg oral tablet 40 mg = 1 tab, PO, Bedtime carvedilol 25 mg oral tablet 25 mg = 1 tab, PO, BID furosemide 40 mg oral tablet 40 mg = 1 tab, PO, BID hydrALAZINE 50 mg oral tablet 50 mg = 1 tab, PO, TID NIFEdipine 90 mg oral tablet, extended release 90 mg = 1 tab, PO, Daily pantoprazole 40 mg oral enteric coated tablet 40 mg = 1 tab, PO, Before Breakfast LABS Labs (Last four charted values) WBC H 16.9 (SEPTEMBER 16) Hgb L 9.2 (SEPTEMBER 16) Hct L 28.5 (SEPTEMBER 16) Plt 287 (SEPTEMBER 16) Na 142 (SEPTEMBER 16) K H 5.6 (SEPTEMBER 16) CO2 L 18 (SEPTEMBER 16) Cl H 110 (SEPTEMBER 16) Cr H 9.56 (SEPTEMBER 16) BUN H 87 (SEPTEMBER 16) Glucose Random H 132 (SEPTEMBER 16) Ca L 7.9 (SEPTEMBER 16) Troponin 0.03 (SEPTEMBER 16) CK MB 2.1 (SEPTEMBER 16) Total CK H 461 (SEPTEMBER 16) Radiology IMPRESSION: Acute hypoxemic failure Need for noninvasive mechanical ventilator Pulmonary edema ESRD Hyperkalemia Noncompliance Back pain Diabetes mellitus type 2 Anemia of CKD PLAN : Patient presents with acute onset of pulmonary edema likely due to noncompliance from [facility] dialysis. I have consulted nephrology and will plan on getting her dialyzed. She was started on BiPAP and nitro drip and is subsequently being weaned off, if she gets dialysis earlier today she will be able to downgraded to a telemetry floor. She has no evidence of infection hence I will hold off on antibiotic initiation. She was counseled to be compliant with her dialysis. I will transfer her to medicine service Full Code [Ordered] Priscila Hathaway MD MPH Pulmonary and Critical Care Medicine 09/27/2017 [facility] Extracted from:Title: Nephrology * Author: Ernie Woods MD Date: 08/17/17 Impression and Plan 1.Volume overload resolved with HD 2.Hyperkalemia resolved with HD 3.ESRD missed HD 4.Acidemia metabolic acidosis resolved w ith HD 5.Anemia in CKD 6.Hypertensive CKD 7.DM2 8.Non compliance Recs HD again today 3 hrs 2 k bath 2.5 ca 35 bicarb UF as tolerated Compliance need d/w pt Once d/giovana resume OP HD seen in room this AM getting HD Extracted from:Title: General Admission H&P * Author: Andi Obrien MD Date: 08/16/17 Patient: MEENA SOL Age: 41 years Sex: Female : 1975 Associated Diagnoses: None Author: Andi Obrien MD Basic Information Source of history: Self, Medical record. Chief Complaint 08/15/2017 21:57 pt states, "i h ave been burning with urination for 2days and SOB for about 2hours now I have CKD and haven't had dialysis in about 2weeks" History of Present Illness 41-year-old female with history of diabe rosie mellitus, end-stage renal disease on hemodialysis, right BKA, hypertension, hyperlipidemia, presented to emergency room complaining of shortness of breath after missing hemodialysis. Patient is ESRD on hemodialysis. She complained of shortness of breath started a day ago. Associated dryg coug and worsening Left LE edema. Patient did not have dialysis for at least 2 weeks. Admits stopping BP meds since she ran out. Patient was discharged from [facility] on June 27, 2017 where she was treated for volume overload, hyperkalemia, end-stage renal disease on missing hemodialysis treatment, pleural effusion, acidemia and metabolic acidosis. In the emergency room initial vital signs blood pressure 190/100 heart rate 106 respiration 20 temperature 98.1 pulse oximetry 96%. Labs significant for potassium 5.6 creatinine 7.06 hemoglobin 8.4. A chest x-ray showed no consolidation or pulmonary congestion. Patient is being admitted for fluid overload, hyperkalemia after missing hemodialysis. Review of Systems Constitutional: Negative except as documented in history of present illness. Eye: Negative. Ear/Nose/Mouth/Throat: Negative. Respiratory: Negative except as documented in history of present illness. Cardiovascular: Negative. Gastrointestinal: Negative. Genitourinary: Negative. Hematology/Lymphatics: Negative. Endocrine: Negative. Immunologic: Negative. Musculoskeletal: Negative. Integumentary: Negative. Neurologic: Negative. Psychiatric: Negative. Health Status Current medications: (Selected) Inpatient Medications Ordered carvedilol extended release: 80 mg, PO, ONCE hydrALAZINE: 20 mg, 1 mL, IVP, ONCE Prescriptions Prescribed Advocate Arm Blood Pressure Monitor: 1 ea, MISC, ONCE, 1 ea, 0 Refill(s) Lasix 40 mg oral tablet: 40 mg, 1 tab, PO, BID, for 30 day, 60 tab, 0 Refill(s) NIFEdipine 90 mg oral tablet, extended release: 90 mg, 1 tab, PO, Daily, for 30 day, 30 tab, 0 Refill(s) atorvastatin 40 mg oral tablet: 40 mg, 1 tab, PO, Bedtime, for 30 day, 30 tab, 0 Refill(s) docusate sodium 100 mg oral capsule: 100 mg, 1 cap, PO, BID, for 7 day, PRN: as needed for constipation, 12 cap, 0 Refill(s) docusate sodium 100 mg oral capsule: 100 mg, 1 cap, PO, Daily, 30 cap, 0 Refill(s) hydrALAZINE 50 mg oral tablet: 50 mg, 1 tab, PO, TID, for 30 day, 90 tab, 0 Refill(s) pantoprazole 40 mg oral enteric coated tablet: 40 mg, 1 tab, PO, Before Breakfast, for 30 day, 30 tab, 0 Refill(s) Documented Medications Documented carvedilol 25 mg oral tablet: 25 mg, 1 tab, PO, BID, 180 tab, 0 Refill(s), Medications (2) Active Scheduled: (2) carvedilol 80 mg, PO, ONCE hydrALAZINE 20 mg/1 ml VL 20 mg 1 mL, IVP, ONCE Continuous: (0) PRN: (0) Problem list: All Problems Escherichia coli / SNOMED CT [id number] / Confirmed Problem added by Discern Expert. E.coli, 09/15/2016 urine - 09/15/16 (ESBL) urine - 12/06/16 Below knee amputation status / SNOMED CT [id number] / Confirmed Right sided BKA Klebsiella / SNOMED CT [id number] / Confirmed Problem added by Discern Expert. Blood, 03/29/2016 urine - 10/11/16 (ESBL) Left heart failure with preserved LV function / SNOMED CT [id number] / Confirmed Metabolic acidosis / SNOMED CT 38856709 / Confirmed MRSA / SNOMED CT 680067710 / Confirmed Problem added by Discern Expert. Left buttock abscess, 11/29/2013 MRSA / SNOMED CT [id number] / Confirmed Problem added by Discern Expert. nares - 02/19/16 right foot aspirate - 02/23/16 VRE / SNOMED CT 392958987 / Confirmed Problem added by Discern Expert. urine - 12/06/16, Active Problems (8) Below knee amputation status Escherichia coli Klebsiella Left heart failure with preserved LV function Metabolic acidosis MRSA MRSA VRE Histories Past Medical History: Active Below knee amputation status ([id number]) Comments: 08/24/2016 CDT 22:35 CDT - Laura Mckeon ret RN Right sided BKA Resolved CKD (chronic kidney disease) (7440324027): Onset on 09/01/2015 at 39 years. Resolved. DM (diabetes mellitus) ([id number]): Onset on 08/31/2009 at 33 years. Resolved on 09/07/2016 at 40 years. HTN - Hypertension (5587627628): Onset on 08/31/2009 at 33 years. Resolved on 09/07/2016 at 40 years. Anxiety (1983029194): Resolved. Chronic depression (649558983): Resolved. Diabetes mellitus (992190564): Resolved. Diabetes mellitus (505511473): Resolved. Kidney disease (6112563307): Resolved. Biliary colic (341938894): Resolved on 08/17/2016 at 40 years. Hypercholesteremia (98800135): Resolved. HLD (hyperlipidemia) (03015276): Resolved. Hypertension (2395382114): Resolved. Pancreatitis (425986424): Resolved. Family History: Father High blood pressure Heart failure Type 2 diabetes mellitus Mother High blood pressure Heart failure Type 2 diabetes mellitus Lung cancer Procedure history: Amputation (631398550). Comments: 11/01/2015 21:50 - Rashawn Garzon RN 2 toes in R foot Amputation below-knee ([id number]). Comments: 09/04/2016 22:51 - Angela Dumas RN 06/29/16 Catheter procedure ([id number]). section (10802439). Comments: 11/26/2013 01:52 - Chaka Shepherd DO x6 section ([id number]). Cholecystectomy (03331192). Social History Social and Psychosocial Habits Alcohol 08/17/2016 Use: Current Previous treatment: None Has alcohol use interfered with work or home life? No Do you ever drink more than intended? No Has anyone been hurt or at risk by your drinking? No Ready to change: No Concerns about alcohol use in household: No Comment: Social drinker - 08/17/2016 06:02 - Jeffery Scott RN 04/13/2017 Use: Past Type: Wine Frequency: 1-2 times per month Average drinks per episode in last year: 12 Maximum drinks per episode in last year: 12.00 Last Use July Started at age: 15 Years Previous treatment: None Has alcohol use interfered with work or home life? No Do you ever drink more than intended? No Has anyone been hurt or at risk by your drinking? No Ready to change: No Concerns about alcohol use in household: No Comment: pt denies current alcohol use - 04/13/2017 00:57 - Adrian Lindsey RN Exercise 01/14/2017 Duration (average number of minutes): 30 Times per week: 1-2 times/week Self assessment: Good condition Exercise type: Walking Sexual 01/14/2017 Sexually active: No Substance Abuse 09/07/2016 Use: None 01/14/2017 Use: None Tobacco 12/13/2016 Use: Never smoker Type: Cigarettes Exposure to Tobacco Smoke None Cigarette Smoking Last 365 Days No Reg Smoking Cessation Counseling No 08/15/2017 Use: Never smoker Type: Cigarettes Previous treatment: None Exposure to Tobacco Smoke None Cigarette Smoking Last 365 Days No Reg Smoking Cessation Counseling No . Physical Examination VS/Measurements Measurements from flowsheet : Measurements 08/15/2017 22:01 Heparin Dosing Weight (kg) 76.96 08/15/2017 21:57 Weight 100 kg Dosing Weight Difference Percent -0.453 % Dosing Weight Collection Method Measured , Vital Signs (last 24 hrs) Last Charted Temp Oral 98.5 DegF (AUG 16 04:55) Heart Rate Peripheral H 119bpm (AUG 16 06:07) Resp Rate 17 BRMIN (AUG 16 06:07) SBP H 180mmHg (AUG 16 06:07) DBP H 105mmHg (AUG 16 06:07) SpO2 100 % (AUG 16 06:07) Weight 100 kg (AUG 15 21:57) Intake and Output No I and O Data Available , 24 hour intake General: Alert and oriented, Mild distress. Eye: Pupils are equal, round and reactive to light. HENT: Normocephalic. Neck: Supple, Non-tender, No jugular venous distention. Respiratory: crackles in the bases. mild labored breathing. . Cardiovascular: Normal rate, Regular rhythm. Gastrointestinal: Soft, Non-tender. Genitourinary: No costovertebral angle tenderness. Lymphatics: No lymphadenopathy neck, axilla, groin. Musculoskeletal Normal range of motion. Right BKA. Left LE edema. . Right IJ tunneled HD catheter.. . Integumentary: Warm, Dry. Neurologic: Alert, Oriented, Right BKA. Review / Management Results review: Labs (Last four charted values) WBC 7.8 (AUG 15) Hgb L 8.4 (AUG 15) Hct L 25.0 (AUG 15) Plt 216 (AUG 15) Na 144 (AUG 16) 142 (AUG 15) K H 5.2 (AUG 16) H 5.6 (AUG 15) CO2 L 14 (AUG 16) L 16 (AUG 15) Cl H 118 (AUG 16) H 117 (AUG 15) Cr H 6.77 (AUG 16) H 7.06 (AUG 15) BUN H 64 (AUG 16) H 65 (AUG 15) Glucose Random H 132 (AUG 16) H 128 (AUG 15) Ca L 7.9 (AUG 16) L 7.6 (AUG 15) Troponin 0.02 (AUG 15) CK MB 3.6 (AUG 15) Total CK H 417 (AUG 15) . Chest 1view DX 08/15/17 22:57:47 IMPRESSION: No consolidation or pulmonary congestion. SL: KECIA Signed By: Tamie Perez MD EKG sinus tachycardia, heart rate 115. LVH. Nonspecific T-wave abnormalities. Impression and Plan 41-year-old female with history of diabe rosie mellitus, end-stage renal disease on hemodialysis, right BKA, hypertension, hyperlipidemia, presented to emergency room complaining of shortness of breath after missing hemodialysis. 1. Shortness of breath. Due to 2 2. Fluid overload. After missing hemod ialysis. 3. Hyperkalemia. Mild. No EKG hyperka lemic changes. 4. End-stage renal disease on hemodialy sis. Patient needs hemodialysis treatment. Last hemodialysis 2 weeks ago. Access, right IJ tunneled HD catheter. Nephrology consult for hemodialysis. 5. Hypertension urgency. Resume blood pressure medication. 6. Chronic anemia. 7. DM type 2. Accu-Chek, insulin slidi ng scale. 8. DVT prophylaxis. Lovenox subcutaneo us. Addendum by Nolan Reynoso MD on 08/16/2017 14:47 patient examined bedside will get HD in morning, then DC home c/w prn pain medications 08/17/2017 ANGELICA Beth Extracted from:Title: Nephrology * Author: Ernie Woods MD Date: 06/27/17 Impression and Plan 1.Volume overload 2.Hyperkalemia 3.ESRD missed HD 4.Pleural effusions 5.Acidemia metabolic acidosis 6.Anemia in CKD 7.Hypertensive CKD 8.DM2 Recs: Had emergent HD for clearance and volume control Much improved HTN control is improved with HD Can d/c home Thank you for this consultation D/w patient HD RN and ER MD Extracted from:Title: [facility] Hospitalist Admission H&P Author: Lolis Sharp MD Date: 06/27/17 [facility] Providers Hospitalist Admission History and Physical Code Status: None Specified=FULL CODE Chief Complaint: shortness of breath History of Present Illness: This is a 41 year old F with a hx of ESRD, chornic abdominal pain, DM, hx of R BKA who presented with shortness of breath and cough. Apparently she has not been to dialysis sincelast . Very hypertensive in the ED as well with SBP in the 200s. Hx of noncompliance as well. Initially she denies abdominal pain and vomiting, however, upon my exam, patient was vomiting and says this is because she was given [place]. Also complaining of abdominal pain. Nephrology has been consulted and HD has been started. Denies chest pain , headaches, dizziness,and syncope. Review of Systems: as mentioned in HPI Past Medical History: HTN - Hypertension: 09/07/16 DM (diabetes mellitus): 09/07/16 Biliary colic: 08/17/16 Diabetes mellitus Anxiety Chronic depression HLD (hyperlipidemia) CKD (chronic kidney disease) Pancreatitis Hypercholesteremia Hypertension Diabetes mellitus Kidney disease Past Surgical History: section Amputation section Amputation below-knee Cholecystectomy Family History: Father: Heart failure; High blood pressure; Type 2 diabetes mellitus Mother: Heart failure; High blood pressure; Lung cancer; Type 2 diabetes mellitus Social History: Sexual Details: Sexually active: No. Alcohol Details: Current, Previous treatment: None. Alcohol use interferes with work or home: No. Drinks more than intended: No. Others hurt by drinking: No. Ready to change: No. Household alcohol concerns: No.; Comment(s): Social drinker Details: Past, Type Wine. Frequency: 1-2 times per month. 12 Drinks/Episode average. 12.00 Drinks/Episode maximum. Last use: July. Started age 15 Years. Previous treatment: None. Alcohol use interferes with work or home: No. Drinks more than intended: No. Others hurt by drinking: No. Ready to change: No. Household alcohol concerns: No.; Comment(s): pt denies current alcohol use Exercise Details: Exercise duration: 30. Exercise frequency: 1-2 times/week. Self assessment: Good condition. Exercise type: Walking. Tobacco Details: Use: Never smoker. Type: Cigarettes. Tobacco smoke exposure: None. Did the Patient Smoke Cigarettes Anytime During the Last 365 Days? No. Cessation Counseling Provided? No. Details: Use: Never smoker. Type: Cigarettes. Previous treatment: None. Tobacco smoke exposure: None. Did the Patient Smoke Cigarettes Anytime During the Last 365 Days? No. Cessation Counseling Provided? No. Substance Abuse Details: Use: None. Details: Use: None. Medications: Medications (13) Active Scheduled Meds (6): 06/27/17 atorvastatin 40 mg PO Bedtime 06/27/17 carvedilol 25 mg PO BID 06/27/17 furosemide (Lasix 40 mg oral ta blet) 40 mg PO BID 06/27/17 hydrALAZINE (hydrALAZINE 50 mg oral tablet) 50 mg PO TID 06/27/17 metoclopramide (metoclopramide 5 mg oral tablet) 5 mg PO QID-Before Meals 06/28/17 pantoprazole 40 mg PO Before Br eakfast Unscheduled Meds (1): 06/27/17 heparin 10,000 unit DIALYSIS SURVIVAL SPECIALIST PRN Meds (3): 06/27/17 docusate (docusate sodium 100 m g oral capsule) 100 mg PO BID 06/27/17 hydromorphone (Dilaudid) 0.2 mg IVP Q3H 06/27/17 ondansetron (Zofran) 4 mg IVP Q 8H One Time Meds (3): 06/27/17 (Completed) hydrALAZINE 10 mg IVP ONCE 06/27/17 (Completed) morphine Sulfate 4 mg IVP ONCE 06/27/17 (Completed) ondansetron (Zofra n) 4 mg IVP ONCE Continuous Infusions: None Allergies (1) Active Reaction NKDA None documented Allergies: Physical Exam: Vitals Tmp(F) Pulse BP RR SpO2 FIO2 06/27 10:12 98.2 128 170/107 18 95 --- 06/27 09:02 98.5 113 162/90 16 100 --- 06/27 08:08 ---- 112 153/79 14 99 --- 06/27 07:02 98.4 117 175/100 22 98 --- 06/27 07:01 ---- 117 ----- 2 2 98 --- 24 Hr Tmax: 98.5F (36.94c) at 06/27 09:0 2 Vital Signs are the last 5 in the past 48 hours. General: moderate distress HEENT: PERRLA, EOMI. MMM and intact without erythema. No conjunctival injection. No scleral icterus. Neck: Supple, full ROM Heart: RRR, normal S1, S2. No murmurs, rubs, gallops Lungs: Clear to auscultation bilaterally. Symmetric chest wall expansion. Abdomen: Soft, non-tender to palpation, non-distended. Bowel sound present in all 4 quadrants. MSK:No peripheral edema. Skin: No rashes or lesions. No petechiae or bruising noted. Neuro: CN II-XII grossly intact. Psych: Appropriate mood and affect. I&O Record In Out Bal 06/27 24hr Tot 2 0 2 06/26 24hr Tot 0 0 0 Lines, Tubes, and Drains: 06/27/2017 07:01 Peripheral Lines: Forea rm Left 20 gauge Over the needle catheter Labs: Hct: 27.5 % Low (06/27/17 07:11:47) Hgb: 9.2 g/dL Low (06/27/17 07:11:47) MCH: 29.9 pg (06/27/17 07:11:47) MCHC: 33.5 g/dL (06/27/17 07:11:47) MCV: 89.4 fL (06/27/17 07:11:47) MPV: 8.8 fL (06/27/17 07:11:47) Platelet: 351 K/CMM (06/27/17 07:11:47) RBC: 3.07 M/CMM Low (06/27/17 07:11:47) RDW: 15.8 % High (06/27/17 07:11:47) WBC: 10.1 K/CMM (06/27/17 07:11:47) CO2: 20 mEq/L Low (06/27/17 07:27:25) Chloride Lvl: 110 mEq/L High (06/27/17 07:27:25) Sodium Lvl: 138 mEq/L (06/27/17 07:27:25) Glucose Lvl: 141 mg/dL High (06/27/17 07:27:25) Calcium Lvl: 8.2 mg/dL Low (06/27/17 07:27:25) Potassium Lvl: 5.6 mEq/L High (06/27/17 07:27:25) BUN: 64 mg/dL High (06/27/17 07:27:25) AGAP: 13.6 mEq/L (06/27/17 07:27:25) Creatinine Lvl: 7.05 mg/dL High (06/27/17 07:27:25) Imaging: Reviewed Assessment/Plan: 1. ESRD 2, Hyperkalemia 3. Missed dialysis 4. Intractable nause and vomiting 5. Shortness of breath 6. Hypertensive crisis 7. Uncontrolled DM 8.Gastroparesis Plan: -Patient receiving dialysis today; Nephr ology following. Likely able to d/c after HD and BP controlled. -restart home blood pressure medications -continue home reglan--abdominal pain an d nausea more chronic issues -SSI -educate patient on importance of compli ance with medications and dialysis Prophylaxis: heparin Disposition: 1 MN Lolis Sharp MD Hospitalist [place] [facility] Providers 06/28/2017 ANGELICA Beth Extracted from:Title: Nephrology * Author: Ernie Woods MD Date: 06/16/17 Impression and Plan 1.Volume overload resolved with HD 2.Hyperkalemia resolved with HD 3.ESRD missed HD 4.Pleural effusions 5.Acidemia metabolic acidosis resolved w ith HD 6.Anemia in CKD 7.Hypertensive CKD 8.DM2 9.Non compliance Recs HD again today PRBCs in HD Once d/giovana resume OP HD Extracted from:Title: GI Consultation Note-Polly Author: Geovany Matias MD Date: 06/14/17 Impression and Plan Nausea and vomiting Abdominal pain Diabetic gastroparesis End-stage renal disease Anemia of chronic kidney disease Chronic constipation Her clinical presentation is consistent with a flare of her gastroparesis. We will start her on metoclopramide 5 mg IV every 6 hours to be timed with her meals. Gastroparesis diet with renal modification consisting of low fiber low fat foods and soft consistency foods IV Zofran and p.o. Phenergan as needed as needed for nausea and vomiting We have discussed the need to minimize use of opiate medications and that while these may help transiently with her pain, this will lead to exacerbation of her nausea and vomiting symptoms as well as abdominal pain by paradoxical mechanism and lead to further exacerbation of her gastroparesis Her last upper endoscopy was in the middle of 2016 and there was no evidence of gastric outlet obstruction and gastric biopsies and duodenal biopsies were unrevealing. For her constipation, we will give her a twice daily dosing of lactulose until she has significant results. MiraLAX will also be prescribed as a bowel regimen for her Extracted from:Title: History and Physical Author: Neftali Nichole MD Date: 06/14/17 Assessment: Noncompliance ESRD on hemodialysis Acute flare of diabetic gastroparesis Abdominal pain/intractable nausea vomiting likely secondary to #3 Volume overload likely secondary to missing her hemodialysis Anemia of chronic disease Uncontrolled hypertension Plan: We will consult nephrology for a possible urgent hemodialysis. Volume overload is likely secondary to her missing her hemodialysis for the past 2 weeks. Counseled on compliance with her medications and follow-up including hemodialysis. Will provide IV Reglan1 now and then scheduled for her flare of diabetic gastroparesis. Will consult gastroenterology. Gastroparesis diet. IV Zofran as needed for nausea/vomiting Insulin sliding scale and Accu-Chek Follow-up BMP for electrolyte corrections Follow-up on CBC. Restart on home regimen for antihypertension Follow-up on further nephrology recommendations Follow-up on gastroenterology recommendations DVT prophylaxis: Heparin subcutaneous Disposition: Pending clinical improvement, likely more than one midnight 06/16/2017 [facility] Extracted from:Title: History and Physic al Author: Yosi Strickland MD Date: 04/12/17 41 y/o F with DMII complicated by gastro paresis, HTN, and ESRD who presents with abdominal pain, N/V, and SOB. # Hypertensive Emergency - controlled in ED with nitroprusside ip - restarted home medications: nifedipine 90mg QD, carvedilol 25mg Q12h, PO Lasix 40mg BID, PO hydralazine 75mg TID # Abdominal Pain - history of gastroparesis - surgical history of cholecystectomy an d abdominal hernia repair - Tx: metoclopramide 10mg IV q8h # Diabetes mellitus type II - put on SSI and low carb diet # ESRD - , , Mon dialysis schedule - missed Monday' dialysis - on dialysis schedule today Code: Full Diet: Adult Renal, 2g carb Proph: Ambulation Dispo: Home once medically stable Addendum by Naeem Ham MD on 04/12/2017 19:56 IMMUNOLOGY SPECIALIST ATTENDING NOTE: I saw and examined this medically complex patient, reviewed the labs and radiographic data, and agree with this note. Naeem Ham MD, FACP, FASN, [facility] 04/13/2017 [facility] Extracted from:Title: Discharge Summary * Author: Nolan Reynoso MD Date: 01/19/17 Discharge Information 1. ESBL pyelopnephritis 2. anemia of chronic disease 3. sepsis due to above 4. acute on chronic renal injury CKD sta ge 3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 High (12/14/16) PTT: 30.3 seconds (12/14/16) RBC: 3.21 M/CMM Low (12/14/16) RDW: 16.2 % High (12/14/16) RPR: Non Reactive (12/07/16) Segs: 55.1 % (12/14/16) Segs-Bands #: 3.8 K/CMM (12/14/16) Sodium Lvl: 144 mEq/L (12/14/16) T pallidum Ab: Reactve Abnormal (12/08/16) Temp Johnson: 37 DegC (12/05/16) Total CK: 138 unit/L (12/13/16) Total Protein: 5.2 g/dL Low (12/14/16) Treponemal Scr: bREACTIVE Abnormal (12/07/16) Tri mg/dL (12/06/16) Troponin-I: 0.03 ng/mL (12/13/16) U Amph Scr: NEG (12/13/16) U Esther Scr: NEG (12/13/16) U Benzodia Scr: NEG (12/13/16) U Cannab Scr: NEG (12/13/16) U Chloride: 65 mEq/L (12/06/16) U Cocaine Scr: NEG (12/13/16) U Creatinine: 71.4 mg/dL (12/06/16) U Opiate Scr: POS Abnormal (12/13/16) U Phencyc Scr: NEG (12/13/16) U Preg: Negative (12/05/16) U Sodium: 73 mEq/L (12/06/16) UA Bacteria: Moderate (12/13/16) UA Bili: cNegative (12/13/16) UA Blood: cSmall Abnormal (12/13/16) UA Color: cYellow (12/13/16) UA Glucose: c100 Abnormal (12/13/16) UA Ketones: cNegative (12/13/16) UA Leuk Est: cTrace Abnormal (12/13/16) UA Mucus: cFew (12/07/16) UA Nitrite: cNegative (12/13/16) UA pH: 6.5 (12/13/16) UA Protein: c>=300 Abnormal (12/13/16) UA RBC: 6-10 Abnormal (12/13/16) UA Spec Grav: 1.015 (12/13/16) UA Sq Epi: cOCC (12/13/16) UA Turbidity: cClear (12/13/16) UA Urobilinogen: 0.2 EU/dL (12/13/16) UA WBC: 21-50 Abnormal (12/13/16) UDS Note: See Note (12/13/16) Vanco Tr: 18.6 ug/ml (12/08/16) Vanco Tr TND: 20:30 (12/08/16) VLDL: 28 (12/06/16) WBC: 6.9 K/CMM (12/14/16) Imaging: I have reviewed pertinent imaging in detail. Assessment/Plan: 1. Abdominal pain -multiple admissions in the past for thi s. Hx of surgeries. Consider cutaneous nerve entrapment if other w/u i negative? -no explanation of acute abdominal pain on imaging or labs. Started Reglan + PPI today. She says that GI cocktail makes her sick. No associated diarrhea. -Will order gastric emptying study 2. DM -uncontrolled -continue insulin 3. CKD stage 4 -continue to monitor Prophylaxis: heparin Disposition: likely home tomorrow Lolis Sharp MD Hospitalist [facility] Extracted from:Title: Admission H&P * Author: Andi Obrien MD Date: 12/13/16 Impression and Plan 41-year-old female with history of hyper tension, chronic kidney disease, hyperlipidemia, diabetes mellitus, obesity, presented to emergency room complaining of epigastric pain. 1. Acute abdominal pain. Differential in cludes: gastritis/PUD, gastroparesis. History of pancreatitis. Normal lipase though. Had EGD (12/08) which showed mild chronic gastritis, immunoperoxidase neg for H pilory. 2. DM type 2, uncontrolled. 3. Hypovolemia due to 1. 4. CKD stage 4. 5. HTN urgency. 6. DVT prophylaxis. Heparin SQ. 7. UTI, ongoing treatement. Last Urine Culture positive E coli, vancmycin resistant enterococcus, discharge on 11/22/16, on lnezolid 600 mg bid for 12 days. Plan: IV hydration. ABD/Pelvis CT scan. Pepcid. Accu check and insuline sliding scale. 12/15/2016 ANGELICA Beth Extracted from:Title: Infection Control Isolation Alert Author: Ignacia Martinez Date: 12/09/16 ISOLATION ALERT 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 AND This patient has a history of infection/colonization with a multi-drug resistant organism. Organism Site Date VRE urine 12/06/16 MDR-E.coli urine 12/06/16 ESBL Klebsiella urine 10/11/16 MRSA right foot aspirate 02/23/16 Isolation Required: CONTACT Before isolation precautions may be discontinued, the following protocol must be followed and Infection Control should be notified: Organism Status Cultures Sites MRSA Off abx x 72hrs or 7 days if on dialysis and vancomycin x 2, 48 hrs apart Anterior nares, wounds, and any previous positive sites VRE Off abx x 72hrs or 7 days if on dialysis and renally-cleared drug active against patient's isolate x 2, 48 hrs apart Stool and any previous positive sites PCN-R or PCN-Intermediate [...] x2, 48 hrs apart Urine, stool, throat, and any previous positive sites Stenotrophomonas R to Trimethoprim-Sulfa Methoxazole (T/S) Off abx x 72hrs or 7 days if on dialysis and aminoglycoside x2, 48h apart Urine, stool, throat, and any previous positive sites Chryseobacterium meningosepticum (formerly Flavobacterium meningosepticum) and other Chryseobacterium spp. 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 We can be reached at [phone]. Extracted from:Title: Team A Progress Note Author: Maria C Gibson MD Date: 12/09/16 Assessment/Plan Mrs. Sol is a 41 years old female with hx of HTN, DM, HLD, CKD stage IV, s/p R BKA, periumbilical incarcerated hernia repair and cholestomy (2 months ago) presented with on and offabdominal pain and nausea and vomitting for 6 months. Previous EGD only showed mild esophagitis; previous CT (10/11)showed acute pancreatitis and descending colitis, which was resolved 3 days after. No evidenceswere found indicating pancreatitis or biliary tract disease for this time. The etiology of her abd pain is still unclear. EGD on 12/08 was negative. Her CKD is stage IV with unknown etiology neither, planned for renal biopsy. She has recurrent UTI without being treated appropriately, evidence for cystitis on CT, urine cultrue positive for MDR E.coli and enterococcus. Acute on chronic epigastric pain with associated blood tinged emesis - Differential includes gastritis, esoph agitis, IBD, intestinal/bowel ischemia - No evidence of biliary or pancreatic a bnormalities on CT abd/pelvis or labs,basically r/o biliary stone andpancreatitis - EGD was negative, biopsy pending for H .p, aspiration pending for SIBO -Continue bentyl for functional bowel/ir ritable bowel syndrome BECKI on CKD stage 4 with nephrotic range proteinuria - Cr 4.93 on admission, 2.90 last month, still elevated but stable - differential includes HTN and/or DM ne phrosclerosis or FSGS 2/2 obesity - No recent contrast or NSAID usage per patient - Renal has evaluated patient multiple t imes in past without clear etiology of CKD -Scheduled for biopsy - Renally dose all meds for GFR <20 - Avoid nephrotoxins - Hyperphosphatemia, 2/2 decreased renal clearance-> sevelamer 800mg tid Hypertensive Crisis - BP 268/138 on admission - Goal BP is <140/80 in this patient - Continue Coreg 25 mg BID and increase Nifedipine to60mg daily Chronic UTI and cysittis - UA on 12/06 normal without WBC, bacteri a, LE, or nitrites - CT shows bladder wall thickening consi stent withchronic cystitis - However, urine culture from 12/06 with Vancomycin Resistant Enterococcus and MDR E.coli - Continue ceftriaxone 1gm q24h iv for M DR E.coli (12/08-12/20) -ContinueLinezolid 600mg q12hpo for vanc resistant Enterococcus (12/08-12/21) -Nitrofurantoin contraindicated in CrCl< 60 DM2 - A1C 4.7, indicated blood sugar in good control over the past 3 months - Stop Sliding scale insulin Prophylaxis heparin 5,000 unit SUB-Q Q8H Disposition Pending for evaluation and treatment from GI, IR, ID Maria C Gibson MD, PGY-1 Pager: [phone] Addendum by Carmen Galvez MD on 12/10/2016 10:11 CDT ATTENDING NOTE: I examined this patient, reviewed the clinical data, discussed the case with the medical team A on 12/09/2016 and I agree with the plan documented in the note. Extracted from:Title: General Admission H&P Author: Tavon Hardy MD Date: 12/06/16 Impression and Plan Ms. Sol is a 41 y/o obese woman with sudden onset abdominal pain and vomiting possibly secondary to pancreatitis. 1. Abdominal pain, possibly secondary to pancreatitis - amylase and lipase could be normal in patients with prior episodes of pancreatitis - will check CT of abdomen/pelvic for changes in pancreas and possible gall stones left after cholecystectomy - will keep NPO for now - will do abdominal ultrasound to check for choledocolithiasis and biliary tract diseases- Patient is s/p cholecystectomy - will check lipid panel for hypertriglyceridemia 2. BECKI on CKD - will check renal ultrasound for structural damage - bladder scan by nurse showed volume of 200 ml and she has been passing urine in diaper - strict I/Os - check urine studies to calculate FENa - consult renal in AM due to history of proteinuria and possibility of hemodialysis - will need careful volume replacement 3. Hypertensive urgency - initial BP in ED was 210/150 - however, after multiple doses of labetalol, hydralazine, carvedilol BP dropped too quickly to SBP in 90's - will continue to monitor for now and hold home medications - monitor on telemetry - monitor for mental status changes due to quick drop in blood pressure 4. Normocytic Anemia - HgB currently at 11.1; higher than previous admission of 8.8 - most likely due to CKD - continue to monitor - consider iron studies if changes in HgB 5. T2DM - on detemir 15 units Qday at home -NPO - POC glucose 161; will check A1c - will initiate detemir 5 units Qday and sliding scale insulin 6. CVA tenderness - pending CT abdomen - no leukocytosis; unlikely pyelo - UA with no signs of infections however patient has history of multri drug resistant UTI - urine culture sent Thank you for allowing us to help in the care of this patient. Tavon Hardy PGY1 12/10/2016 [facility] Extracted from:Title: Clinical Document Author: Ana Horton MD Date: 10/26/16 PATIENT NAME: MEENA JEAN DISCHARGE SUMMARY DATE OF ADMISSION: 10/23/2016 DATE OF DISCHARGE: 10/26/2016 CHIEF COMPLAINT: Suprapubic pain with dysuria. ADMISSION DIAGNOSES: 1. Urinary tract infection. 2. Uncontrolled hypertension. 3. Acute on chronic kidney disease, stag e 4. 4. History of diabetes mellitus type 2. 5. Chronic abdominal pain. 6. Anemia of chronic disease. 7. Obesity. DISCHARGE DIAGNOSES: 1. Urinary tract infection. 2. Acute renal failure, resolved. 3. Chronic kidney disease, stage 4. 4. History of diabetes mellitus type 2. 5. History of hypertension. 6. Anemia of chronic disease. 7. Obesity. 8. Vitamin D deficiency. 9. Chronic abdominal pain. 10. History of depression. HOSPITAL COURSE: Ms. Jean is a 41-year-old -[place] female with past medical history of hypertension, diabetes mellitus type 2, CKD stage 4, right BKA secondary to osteomyelitis. She is status post recent incarcerated hernia repair with mesh placement. She presented to the ED with complaints of suprapubic abdominal pain associated with dysuria. She was found to have urinary tract infection. She does have a history of multidrug resistance urinary tract infection in the past with ESBL+. Infectious Disease, Dr. Richard was consulted. She managed the patient's antibiotics. The patient was initially treated with meropenem. WBC is within normal limits. Urine culture was positive for yeast. Antibiotics was changed to fluconazole. She has acute renal failure and CKD stage 4. Wire Rope Sling Maker, Dr. Gaytan was consulted. He managed the patient's acute renal failure. Apparently, the patient was recently started on lisinopril which is likely contributory to the acute renal failure. Lisinopril has been held at this point. The patient was advised to followup with her PCP within 1 week after discharge. At a later date, the PCP can decide if they need to resume lisinopril. For now, she has been placed on hydralazine. The patient has obesity. She has been counseled and exercise. She has vitamin D deficiency. She was started on p.o. vitamin D tablets, she is going to continue with this as an outpatient. For her chronic abdominal pain, she was treated with medication. For her depression, she is on sertraline. The patient is currently stable. She has been cleared by ID and eeg technician for discharge. WBC is within normal limits on the day of discharge. The patient is going to be discharged home on fluconazole for 4 more days. For a complete list of discharge medications, please refer to the discharge medication reconciliation from discharge. The patient is stable. Vital signs are stable. She is being discharged home today. The patient has been advised to followup with her PCP within 1 week. She needs to call for an appointment. Ana Horton MD Date Dictated: 10/26/2016 Date Transcribed: 10/26/2016 NOAH/RODGER Extracted from:Title: Nephrology Progress Note Author: Noe Gaytan MD Date: 10/26/16 Impression and Plan 1. Acute on CKD IV Renal function is stable. Hold lisinopril for now. MAy restart it at clinic. 2. UTI Culture grew yeast. Managed by the primary team. 3. HTN heart and renal disease. BP is reasonably controlled. Continuecurrent meds. Hold lisinopril fro now. 4. Nephrotic syndrome. Most likely due to DN. May resume ACEi o as outpt.. 5. DM2 with nephropathy On Insulin 6. Anemia in CKD Stable. Monitor 7. CKD - MBD Cont Vitamin D supplement for vitamin D deficiency and secondary hyperparathyroidism. Other medical issues are managed by the primary team. Extracted from:Title: Nephrology Consultation Author: Noe Gaytan MD Date: 10/23/16 Impression and Plan 1. Acute on CKD IV Could be due to lisinopril started recently or sepsis. Hold lisinopril for now May cont gentle rehydration 1/2NS at 40mls/hr Renally dose meds. Monitor closely. 2. UTI Culture in progress. On Meropenem 3. HTN heart and renal disease. BP is better controlled. Continuecurrent meds. Hold lisinopril. 4. Nephrotic syndrome. Most likely due to DN. May resume ACEi once renal function is stable. 5. DM2 with nephropathy On Insulin 6. Anemia in CKD Monitor 7. CKD - MBD Star Vitamin D supplement for vitamin D deficiency and secondary hyperparathyroidism. 8. Obesity BMI 37 Other medical issues are managed by the primary team. Thank you for the kind consultation. Extracted from:Title: General Admission H&P * Author: Rei Artis MD Date: 10/23/16 Impression and Plan 1. UTI Place in observation Diet ADA Meropenem consult ID 2. Uncontrolled HTN continue home meds. Hold lisinopril. Add hydralazine iv prn 3. Acute on CKD IV suspect due to lisinopril started recently Hold lisinopril gentle rehydration 1/2NS at 40mls/hr consult nephrology 4. DM Insulin 5. Chronic abdominal pain Dilaudid/norco 6. Chronic anemia monitor 7. Obesity BMI 37 8. DVT ampulation Code status FUll POA Daughter Vera 10/26/2016 [facility] Extracted from:Title: Renal Progress Not e * Author: Rm Pascual MD Date: 10/19/16 Patient: UKAEGBMEENA Bocanegra Age: 41 years Sex: Female : 1975 Associated Diagnoses: None Author: Rm Pascual MD Review of Systems Pt is doing better, trying to improve her oral intake. Health Status Allergies: Allergic Reactions (All) Severity Not Documented NKDA- No reactions were documented. Canceled/Inactive Reactions (All) Severity Not Documented Nka- No reactions were documented., Allergies (1) Active Reaction NKDA None Documented Current medications: (Selected) Inpatient Medications Ordered Bicitra oral solution: 15 mL, PO, TID-After Meals Lovenox: 40 mg, 0.4 mL, SUB-Q, [id number] MS Contin: 15 mg, 1 tab, PO, Q12H MiraLax: 17 gm, 1 pkt, PO, BID, PRN: Constipation NIFEdipine 30 mg oral tablet, extended release: 30 mg, 1 tab, PO, Q24H [place] 10/325 oral tablet: 1 tab, PO, Q4H, PRN: Pain Score 7-10 Protonix: 40 mg, 1 tab, PO, Q24H Renagel: 800 mg, 1 tab, PO, TID-Meals Vitamin D3 5000 intl units oral capsule: 5,000 unit, 5 tab, PO, Daily Zofran: 4 mg, 1 tab, PO, Q8H, PRN: Nausea acetaminophen: 650 mg, 2 tab, PO, Q4H, PRN: Pain 1-3/Temp > 100.4 F atorvastatin: 40 mg, 1 tab, PO, Bedtime carvedilol: 25 mg, 1 tab, PO, Q12H furosemide: 40 mg, 2 tab, PO, BID Diuretic lisinopril: 40 mg, 2 tab, PO, Daily sertraline: 100 mg, 1 tab, PO, Daily simethicone: 160 mg, 2 tab, CHEW, TID-After Meals Prescriptions Prescribed [place] 10/325 oral tablet: 1 tab, PO, TID, PRN: Pain Score 7-10, 20 tab, 0 Refill(s) atorvastatin 40 mg oral tablet: 40 mg, 1 tab, PO, Bedtime, 30 tab, 0 Refill(s) carvedilol 25 mg oral tablet: 25 mg, 1 tab, PO, Q12H, 60 tab, 0 Refill(s) furosemide 40 mg oral tablet: 40 mg, PO, BID Diuretic, 60 tab, 0 Refill(s) lisinopril 20 mg oral tablet: 40 mg, 2 tab, PO, Daily, 60 tab, 0 Refill(s) pantoprazole 40 mg oral enteric coated tablet: 40 mg, 1 tab, PO, Q24H, 30 tab, 0 Refill(s) sertraline 100 mg oral tablet: 100 mg, 1 tab, PO, Daily, 30 tab, 0 Refill(s), Medications (17) Active Scheduled: (13) atorvastatin 40mg tab 40 mg 1 tab, PO, Bedtime carvedilol 25 mg TAB 25 mg 1 tab, PO, Q12H cholecalciferol 1000 intl unit tab (vitamin D3) 5,000 unit 5 tab, PO, Daily citric acid-sodium citrate 15ml LIQ ud 15 mL, PO, TID-After Meals enoxaparin 40 mg/0.4 ml INJ 40 mg 0.4 mL, SUB-Q, [id number] furosemide 20 mg TAB 40 mg 2 tab, PO, BID Diuretic lisinopril 20 mg TAB 40 mg 2 tab, PO, Daily MORPhine sulfate 15 mg POWER SHOVEL ENGINEER 15 mg 1 tab, PO, Q12H NIFEdipine 30 mg ERTAB 30 mg 1 tab, PO, Q24H pantoprazole 40 mg ECT 40 mg 1 tab, PO, Q24H sertraline 100 mg TAB 100 mg 1 tab, PO, Daily sevelamer carbonate 800mg tab (Renvela) 800 mg 1 tab, PO, TID-Meals simethicone 80 mg CHEW 160 mg 2 tab, CHEW, TID-After Meals Continuous: (0) PRN: (4) acetaminophen 325 mg TABLET 650 mg 2 tab, PO, Q4H acetaminophen-hydrocodone 325 mg-10 mg TAB 1 tab, PO, Q4H ondansetron 4 mg TAB 4 mg 1 tab, PO, Q8H polyethylene glycol 17 gm packet 17 gm 1 pkt, PO, BID Problem list: All Problems Escherichia coli / SNOMED CT 854934238 / Confirmed Problem added by Discern Expert. E.coli, 09/15/2016 urine - 09/15/16 (ESBL) Below knee amputation status / SNOMED CT 2550326133 / Confirmed Right sided BKA Klebsiella / SNOMED CT 619032042 / Confirmed Problem added by Discern Expert. Blood, 03/29/2016 urine - 10/11/16 (ESBL) Left heart failure with preserved LV function / SNOMED CT 8047000286 / Confirmed Metabolic acidosis / SNOMED CT 88999004 / Confirmed MRSA / SNOMED CT 836560594 / Confirmed Problem added by Discern Expert. Left buttock abscess, 11/29/2013 MRSA / SNOMED CT 033368238 / Confirmed Problem added by Discern Expert. nares - 02/19/16 right foot aspirate - 02/23/16 Resolved: Anxiety / SNOMED CT 2576543041 Resolved: Chronic depression / SNOMED CT 872010544 Resolved: CKD (chronic kidney disease) / SNOMED CT 2197197802 Resolved: Diabetes mellitus / SNOMED CT 530529555 Resolved: DM (diabetes mellitus) / SNOMED CT [id number] Resolved: Biliary colic / SNOMED CT 715391884 Resolved: HTN - Hypertension / SNOMED CT 4233924205 Resolved: HLD (hyperlipidemia) / SNOMED CT 44625832 Canceled: CHF - Congestive heart failure / SNOMED CT 427701963 Canceled: Hypertension / SNOMED CT 24948381 Canceled: Neuropathy / SNOMED CT 4637150258 Canceled: Osteomyelitis / SNOMED CT 346321074, Active Problems (7) Below knee amputation status Escherichia coli Klebsiella Left heart failure with preserved LV function Metabolic acidosis MRSA MRSA Physical Examination VS/Measurements Vital Signs (last 24 hrs) Last Charted Temp Oral 98.8 DegF (OCT 19 12:34) Heart Rate Peripheral 86 bpm (OCT 19 12:34) Resp Rate 18 BRMIN (OCT 19 12:34) SBP 122 mmHg (OCT 19 12:34) DBP 78 mmHg (OCT 19 12:34) SpO2 95 % (OCT 19 12:34) General: Alert and oriented, No acute distress. Eye: Pupils are equal, round and reactive to light, Extraocular movements are intact. HENT: Normocephalic, dry oral mucosa. Neck: Supple, Non-tender. Respiratory: Lungs are clear to auscultation, Respirations are non-labored. Cardiovascular: Normal rate, Regular rhythm. Gastrointestinal: Soft, Non-tender, Non-distended, Normal bowel sounds, midline s car from surgical procedure, . Musculoskeletal Normal range of motion. RBKA. Integumentary: Warm, Dry, [place]. Neurologic: Alert, Oriented. Psychiatric: Cooperative, Appropriate mood and affect, Normal judgment. Review / Management Results review: Labs (Last four charted values) WBC 5.5 (OCT 19) 5.7 (OCT 18) 6.2 (OCT 17) 5.8 (MARILYN 25) Hgb L 7.1 (OCT 19) L 7.9 (SEP 27) L 7.2 (MARILYN 26) L 7.6 (SEP 25) Hct L 22.2 (OCT 19) L 24.7 (OCT 18) L 22.8 (MARILYN 26) L 24.0 (MARILYN 25) Plt 361 (OCT 19) 357 (SEP 27) 322 (MRAILYN 26) 369 (SEP 25) Na 145 (OCT 19) 141 (OCT 18) 142 (MARILYN 26) 143 (MARILYN 25) K 4.5 (OCT 19) 4.9 (MARILYN 27) 4.4 (MARILYN 26) 4.0 (MARILYN 25) CO2 L 23 (OCT 19) L 19 (SEP 27) L 19 (SEP 26) L 19 (SEP 25) Cl H 114 (OCT 19) H 111 (MARILYN 27) H 115 (MARILYN 26) H 115 (MARILYN 25) Cr H 2.86 (MARILYN 28) H 2.81 (MARILYN 27) H 2.84 (MARILYN 26) H 2.62 (MARILYN 25) BUN 14 (OCT 19) 14 (SEP 27) 12 (MARILYN 26) 11 (MARILYN 25) Glucose Random L 61 (MARILYN 28) L 67 (MARILYN 27) 75 (MARILYN 26) 75 (MARILYN 25) Mg 2.0 (MARILYN 28) 2.0 (MARILYN 27) 2.1 (MARILYN 26) 2.2 (MARILYN 25) Phos H 4.7 (SEP 28) H 4.9 (MARILYN 27) H 5.0 (MARILYN 26) H 5.0 (MARILYN 25) Ca L 8.0 (OCT 19) L 7.7 (SEP 27) L 7.5 (MARILYN 26) L 7.4 (MARILYN 25) PT 13.9 (OCT 17) INR 1.05 (MARILYN 26) Total CK 78 (OCT 19) . Impression and Plan Pt is a 41 y/o male with medical hx of HTN, DM presents to the hospital with abdominal pain x 5 days. Pt was found to have nephrotic range proteinuria. Work up had been initiated at OSH. Renal is consulted to evalaute patient and decide if patient would benefit from a renal biopsy. -Nephrotic Range Proteinuria with unclea r etiology' possible diabteic and hypertensive induced. At this time recommend controlling her blood pressures and diabetes. Manage proteinuria with lisinopril 40mg daily. Continue statin for metabolic syndrome. Please have patient follow up in renal clinic in 1-[address] Harvey or any other avalable eeg technician as able with preclinic labs. Patient should follow up with primary care within a week to evaluate electrolytes, and CK levels due to initaition of statin. May be discharged home with lasix 40mg po bid. Pt encourgaed to increase oral intake. Recommend Boost protein prescriptions. -Kidney function stable - Continue to mo nitor, creatinine stable Meatbolic acidosis: Continue bicitra 15ml tid Hyperphosphatemic; Continue renagel at 800mg tid Hypocalcemia; PTH elevated at 185. Vitamin D; 4.7. Please start patient on 50,000 units of ergocalciferol once a week. Pt can follow up with PCP regarding vitamin D level in 2 motnhs Anemia;Iron replete. May be a candidate for epogen if folate and B12 are replete. Can check level in the outpatient and follow up on anemia. Pt seen and staffed with Renal attending Addendum by Richard Aguilar MD on 10/20/2016 00:18 ATTENDING NOTE: I saw and examined this medically complex patient on 10/19/2016, reviewed the labs and radiographic data, and agree with this note. Richard Aguilar MD Extracted from:Title: Infection Control Isolation Alert Author: Ignacia Martinez Date: 10/17/16 ISOLATION ALERT This patient has a history of infection/colonization with a multi-drug resistant organism. Organism Site Date ESBL E.coli urine 09/15/16 ESBL Klebsiella urine 10/11/16 MRSA right foot aspirate 02/23/16 Isolation Required: CONTACT Before isolation precautions may be discontinued, the following protocol must be followed and Infection Control should be notified: Organism Status Cultures Sites MRSA Off abx x 72hrs or 7 days if on dialysis and vancomycin x 2, 48 hrs apart Anterior nares, wounds, and any previous positive sites VRE Off abx x 72hrs or 7 days if on dialysis and renally-cleared drug active against patient's isolate x 2, 48 hrs apart Stool and any previous positive sites PCN-R or PCN-Intermediate [...] x2, 48 hrs apart Urine, stool, throat, and any previous positive sites Stenotrophomonas R to Trimethoprim-Sulfa Methoxazole (T/S) Off abx x 72hrs or 7 days if on dialysis and aminoglycoside x2, 48h apart Urine, stool, throat, and any previous positive sites Chryseobacterium meningosepticum (formerly Flavobacterium meningosepticum) and other Chryseobacterium spp. 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 We can be reached at [phone]. Extracted from:Title: History and Physical Author: Giuliano Marvin MD Date: 10/14/16 Assessment/Plan 40AAF withPMH of DMII, HTN, CKD, HLD, de pression who presented with periumbilical abdominal pain for 6 days with history of multiple admissions and leaving AMA, as well as drug seeking behavior. She recently had incarcerated hernia and cholecystectomy operations within the first month. 1.CHF - Congestive heart failure -Echo done in Apr: EF 55-60% -lasix PO 20 BID -monitor Cr 2.Anxiety sertraline increased to 100 mg daily. 3.CKD (chronic kidney disease) -CKD, stage III, baseline Cr ~2.7 -avoid NSAIDs 4.Chronic depression sertraline increased to 100 mg daily. 5.DM (diabetes mellitus) resolved?? prior a1c 14 Acute pancreatitis on imaging only, on last admission, fits with sx, will reimage, has lipase of 51, so less likely. Will advance diet slowly. Hypertension -nifedipine 90mg ER qd -Coreg 25mg BID -clonidine 0.1 mg PO BID - hydralazine PRN. - pt worked up for renal artery stenosis - f/u appropriate scan- renal vessels US. - cardiology consulted for discussion if patient may benefit from stent for the scan noted above. -renin activity, aldosterone level pending Dispo: once tolerating full diet, will d/c Disposition Pt seen and examined at bedside. Fung elements of history and physical, lab results, imaging discussed with team. Plan of care jointly formulated and concur with resident note. Jed Flores MD [facility] Attending [phone] Addendum by Jed Flores MD on 10/18/2016 20:44 CDT Pt seen and examined at bedside. Fung elements of history and physical, lab results, imaging discussed with team. Plan of care jointly formulated and concur with resident note. Jed Flores MD [facility] Attending [phone] 10/19/2016 [facility] Extracted from:Title: Infection Control Isolation Alert Author: Zainab Restrepo Date: 10/12/16 ISOLATION ALERT This patient has a history of infection/colonization with MRSA. Site Date Rt Foot Aspirate 02/23/2016 Isolation Required: CONTACT Before isolation precautions may [...] any questions. We can be reached at [phone]. ISOLATION ALERT This patient has a history of infection/colonization with a multi-drug resistant organism. Organism Site Date MDR E.coli Urine 09/15/2016 MDR Klebsiella Blood 03/29/2016 Isolation Required: CONTACT Before isolation precautions may be discontinued, the following protocol must be followed and Infection Control should be notified: Organism Status Cultures Sites MRSA Off abx x 72hrs or 7 days if on dialysis and vancomycin x 2, 48 hrs apart Anterior nares, wounds, and any previous positive sites VRE Off abx x 72hrs or 7 days if on dialysis and renally-cleared drug active against patient's isolate x 2, 48 hrs apart Stool and any previous positive sites PCN-R or PCN-Intermediate [...] x2, 48 hrs apart Urine, stool, throat, and any previous positive sites Stenotrophomonas R to Trimethoprim-Sulfa Methoxazole (T/S) Off abx x 72hrs or 7 days if on dialysis and aminoglycoside x2, 48h apart Urine, stool, throat, and any previous positive sites Chryseobacterium meningosepticum (formerly Flavobacterium meningosepticum) and other Chryseobacterium spp. 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 We can be reached at [phone]. Extracted from:Title: History and Physical Author: Maricarmen Hdez MD Date: 10/11/16 Assessment/Plan Ms. Sol lizzy 40 yr old female with a [...] q8hrs Disposition improvement in pain Addendum by Richard Aguilar MD on 10/11/2016 23:54 CDT ATTENDING NOTE: I saw and examined this medically complex patient , reviewed the labs and radiographic data, and agree with this note. Richard Aguilar MD 10/12/2016 [facility] Extracted from:Title: Progress Note * Author: Maria Elena Worthington DO Date: 10/06/16 Patient: MEENA SOL Age: 40 years Sex: Female : 1975 Associated Diagnoses: None Author: Maria Elena Worthington DO Basic Information 40 y/o F PMHx of DM, HTN, CHF, CKD stage III, HLD, depression, and diabetic Charcot foot s/p R BKA p/w diffuse abd pain, nausea, vomiting x 2 days. She was recently discharged from [facility] service 09/28 for MDR E.coli pyelonephritis, during which she received 10 of 14 days of IV meropenem, and switched to ertapenem on day 11 of 14, and discharged home w/ home health to complete ertapenem for 3 more days. She has a prior umbilical hernia with some fat contained in the hernia sac, and abd CT done prior did not show any incarceration. Repeat CT on this admission also did not show any incarceration, but showed evidence pointing towards colitis in the descending colon area. Pain and BP were difficult to control in ED. 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 Pt was transferred to ICU same day for Cardene therapy along with IV insulin therapy. Dr. Nam was consulted in ED, performed repair of suspected chronically incarcerated hernia 10/03. Pt was also worked up for renal artery stenosis. Transferred to floor 10/04. Subjective Patient states her pain is not controlled and continues to ask for IV pain medication. Tolerating PO. No nausea or vomiting. Objective I&O Input/Output Record In Out Bal 10/06 24hr Tot 10 900 -890 10/05 24hr Tot 452 740 -491 VS/Measurements Vital Signs (last 24 hrs) Last Charted Temp Oral 98.3 DegF (OCT 06 12:50) Heart Rate Peripheral 86 bpm (OCT 06 12:50) Resp Rate 18 BRMIN (OCT 06 12:50) SBP 122 mmHg (OCT 06 12:50) DBP 75 mmHg (OCT 06 12:50) SpO2 98 % (OCT 06 12:50) General: Alert and oriented, No acute distress. Eye: Extraocular movements are intact, Normal conjunctiva. HENT: Normocephalic. Neck: Supple. Respiratory: Lungs are clear to auscultation, Respirations are non-labored. Cardiovascular: Normal rate, Regular rhythm, No edema, systolic murmur. Gastrointestinal: Soft, Normal bowel sounds, obese. TTP in RUQ and site of umbilical hernia. Musculoskeletal R BKA. Integumentary: Warm, Dry, Incisional site is negative for signs of infection. No drainage or erythema.. Neurologic: Alert, Oriented. Psychiatric: Cooperative, Appropriate mood and affect. Review / Management Results review: Labs (Last four charted values) WBC 6.4 (SEP 15) 5.2 (MARILYN 14) 7.5 (MARILYN 13) 6.2 (MARILYN 12) Hgb L 8.0 (MARILYN 15) L 7.7 (MARILYN 14) L 7.7 (MARILYN 13) L 7.3 (MARILYN 12) Hct L 24.6 (MARILYN 15) L 23.4 (MARILYN 14) L 24.2 (MARILYN 13) L 22.4 (MARILYN 12) Plt 270 (MARILYN 15) 234 (MARILYN 14) 256 (MARILYN 13) 263 (MARILYN 12) Na 141 (MARILYN 15) 143 (MARILYN 14) H 146 (MARILYN 13) H 146 (MARILYN 13) K 4.1 (MARILYN 15) 4.1 (MARILYN 14) 4.0 (MARILYN 13) 4.1 (MARILYN 13) CO2 L 17 (MARILYN 15) L 17 (MARILYN 14) L 20 (MARILYN 13) L 23 (MARILYN 13) Cl H 113 (MARILYN 15) H 115 (MARILYN 14) H 116 (MARILYN 13) H 116 (MARILYN 13) Cr H 3.20 (MARILYN 15) H 3.20 (MARILYN 14) H 3.10 (MARILYN 13) H 3.10 (OCT 04) BUN 19 (SEP 15) 20 (SEP 14) 19 (SEP 13) 19 (SEP 13) Glucose Random 75 (SEP 15) 93 (SEP 14) 91 (SEP 13) 79 (OCT 04) Mg 1.8 (SEP 14) 1.9 (OCT 04) 1.8 (SEP 11) L 1.6 (OCT 02) Phos 4.3 (OCT 05) H 5.0 (OCT 04) 4.4 (OCT 02) Ca L 7.9 (OCT 06) L 7.5 (OCT 05) L 7.7 (OCT 04) L 7.8 (OCT 04) PT 14.0 (OCT 02) 13.2 (OCT 02) INR 1.06 (OCT 02) 0.98 (OCT 02) PTT 34.1 (OCT 02) 34.3 (OCT 02) . Impression and Plan 40 y/o F PMHx of DM, HTN, CHF, CKD stage III, HLD, depression, and diabetic Charcot foot s/p R BKA p/w diffuse abd pain and N/V, was transferred to ICU for HTN urgency, now s/p repair of incarcerated incisional hernia w/ mesh. Incarcerated hernia s/p repair 10/03, POD#3 -General surgery Dr. Nam on board. -performed repair of incarcerated incisi onal hernia w/ mesh 10/03. -pain control: norco 10/325 Q6H, tramado l prn. No IV pain medications as there is suspicion for drug seeking. -avoid NSAIDs due to CKD -discussed with surgery - no abx needed. Resistant HTN -nifedipine 90mg ER qd -Coreg 25mg BID -clonidine 0.1 mg PO BID - hydralazine PRN. - pt worked up for renal artery stenosis - f/u appropriate scan- renal vessels US . - cardiology consulted for discussion if patient may benefit from stent for the scan noted above. -renin activity, aldosterone level pendi ng Acute on chronic kidney injury -CKD, stage III, baseline Cr ~2.7 -Cr 3.2, stable -avoid NSAIDs CHF -Echo done in Apr: EF 55-60% -lasix PO 20 BID -monitor Cr DM2 -HgbA1C- 5.0% -low dose SSI Anemia of chronic kidney disease -Hgb 8.0 < 7.7, no signs of bleeding -cont monitor, transfuse for hgb<7 Depression/Anxiety - sertraline increased to 100 mg daily. History of ESBL E.coli Pyelonephritis - Patient was previously admitted for th is and discharged home on 08/28 with home health abx. - patient has completed total required a bx duration at this time. - abx discontinued. FEN: saline lock, electrolytes wnl, diabetic diet Dispo: pending Renal vessel US. Discussed plan with attending, Dr. Dykes. Candy-Krystyna Sandra Worthington DO PGY2 #[id number] Addendum by Darrion Dykes MD on 10/07/2016 08:48 I was physically present during the fung portions of the patient evaluation and the medical decision making when performed by the resident and I concur with the above documented decisions made by the team under my guidance. 10/07/2016 ANGEL[facility] Yanes Extracted from:Title: Discharge Summary Author: Abdullahi Simon MD Date: 09/28/16 Discharge Summary Patient: MEENA SOL Age: 40 years Sex: Female : [...] 09/07/[address] Layton and had a palomo catheter placed post-op. Palomo cath remains in place. She was asked to follow-up with urology in 1 week, Dr. Leach. She states lower abdominal cramping has been present since palomo placement but has worsened over the past [...] you need any additional information regarding your patients hospital stay please call the page impregnating tank operator at [facility] [phone], and ask him/her to page me. Patient discussed with attending, Dr. Dykes, who agrees with the plan. Shahab Simon M.D. PGY1 MSO [id number] Extracted from:Title: Nephrology* Author: Latosha Woods MD Date: 09/28/16 Impression and Plan The patient was seen and examined by me with the resident/BAND DIRECTOR/PA and I agree with the History/Exam documented. 1.Becki 2.CKD4 3.Hyperkalemia 4.Acidemia 5.UTI 6.Anemia Recs: Potassium stable ;continue on low k diet Renal function is stable;avoid NSAIDS, renally dose all medications BP stable on current medications Antibitotics per primary Discussed with RN and pt Extracted from:Title: Initial Renal Consultation Author: Latosha Woods MD Date: 09/23/16 Impression and Plan Becki on CKD stage 4 Hyperkalemia Metabolic acidosis [...] patient discussed with Dr Ku and RN 09/28/2016 [facility] Extracted from:Title: EGS Progress Note Author: Nicolette Noova MD Date: 09/10/16 EGS Progress Note Date: 09/10/16 Chief Complaint: "My head hurts" Interval History: Pt had intractable diarrhea yesterday, thought to be 2/2 oral magnesium replacement. Pt continues to complain of different ailments, however, and frequently requests IV pain medication. Physical Exam: Vitals Tmp(F) Pulse BP RR SpO2 FIO2 09/10 08:26 98.7 112 164/88 18 97 --- 09/10 04:18 99 105 154/87 18 100 --- 09/10 00:19 99.4 110 126/72 18 100 --- 09/09 20:07 99.0 85 119/66 1 8 100 --- 09/09 15:38 98.7 99 111/68 1 8 100 --- 24 Hr Tmax: 99.4F (37.44c) at 09/10 00:1 9 Vital Signs are the last 5 in the past 48 hours. General Appearance: Laying in bed, in distress due to pain Chest: Unlabored respirations on room air CV: Regular rate and rhythm Abd: Soft, nondistended, obese abdomen. Tender to palpation in suprapubic area. Incisions intact with dermabond in place. Interval Laboratory Results: None Assessment: Meena is a 40 y/o woman who presented with symptomatic cholelithiasis s/p lap nikolai, now on POD #3. Plan: -Urinary retention: -Placed palomo -oxybutynin -d/c home with palomo and f/u urology in 1 week vs void trial tomorrow -Pain: multimodal therapy -HTN: Continue home meds, PRN hydralazin e and labetalol -IS at the bedside -Pain: start multimodal pain therapy -Bowel regimen: docusate, miralax, PRN b isacodyl suppository -Diabetes: -Scheduled and sliding scale insulin -CKD: avoid nephrotoxic meds, needs neph rology follow up outpatient -DVT ppx: SQH Dispo: Home today vs samantha Novoa MD MSO: [id number] Pager: [phone] Addendum by Abdullahi Bob MD on 09/10/2016 15:01 TRAUMA ATTENDING ADDENDUM I have seen and examined patient with provider and concur with their findings and plan. Diarrhea yesterday most likely 2/2 po mag oxide. D/C, once diarrhea stops ok to discharge. otherwise doing well, tolerating diet, incisions c/d/i. DOS 09/10/2016 Abdullahi Mclain III, MD MSO [id number] Extracted from:Title: Consult Note Author: Gladys Lazo DO Date: 09/07/16 Assessment/Plan 1.Symptomatic cholelithiasis to OR for [...] quadrant abdominal pain DVT ppx: Heparin sc [facility] hospitalist is a employment consultant, pleasepage [phone] questions or concerns. Extracted from:Title: EGS H&P Author: Nicolette Novoa MD Date: 09/07/16 EGS History and Physical Name: Meena Sol Attending Physician: Duglas Joy Admission Diagnosis: Symptomatic cholelithiasis, Intractable abdominal pain Chief Complaint: "My stomach hurts so bad" HPI: Ms. Sol is a 40 y/o woman with extensive PMH of IDDM, HTN, CKD, HLD and diabetic Charcot foot s/p R BKA who presents to the ED today with severe RUQ pain. Patient has been to the [place] ED 10 times within the past 1.5 months due to abdominal pain. She was recently admitted to [facility] under the medicine service and surgery was consulted. After extensive workup including HIDA scan, it was decided that the pt would see her PCP to optimize her comorbidities and follow up in surgery clinic for outpatient elective cholecystectomy. She has an appointment scheduled at [facility] surgery clinic next . Pt was discharged [...] depression, psychosis, or mood changes Physical Exam: Vitals Tmp(F) Pulse BP RR SpO2 FIO2 09/07 14:14 98.2 107 219/110 18 99 --- 09/07 13:04 ---- 108 185/97 20 100 --- 09/07 11:05 ---- 109 213/133 -- 100 --- 09/07 09:29 98.1 114 148/100 22 99 --- 24 Hr Tmax: 98.2F (36.78c) at 09/07 14:1 4 Vital Signs are the last 5 in the [...] CN II-XII grossly intact Labs: Lactic Acid WB 0.7 Glucose Lvl 127 H BUN 19 Creatinine Lvl 3.11 H Sodium Lvl 140 Potassium Lvl 4.4 Chloride Lvl 112 H CO2 21 L AGAP 11.4 Calcium Lvl 8.1 L eGFR 20 Lipase Lvl 118 Total Protein 6.2 L Albumin Lvl 1.4 L Bili Total 0.1 L Bili Direct 0.0 Bili Indirect 0.1 Alk Phos 130 AST 13 ALT 10 Globulin 4.8 H A/G Ratio 0.3 L WBC 10.4 RBC 3.35 L Hgb 9.5 L Hct 29.4 L MCV 87.8 MCH 28.3 MCHC 32.2 RDW 14.4 Platelet 415 MPV 7.2 L Segs 70.5 Monocytes 6.4 Lymphocytes 20.8 Eosinophils 1.4 Basophils 0.9 Segs-Bands # 7.4 Lymphocytes # 2.2 Monocytes # 0.7 Eosinophils # 0.1 Basophils # 0.1 Imaging: EXAM: Tc99m HIDA scan: DATE: 08/31/2016 [...] biliary obstruction. 3. Reduced gall bladder contractility an d reduced gall bladder ejection fraction of 27 % after CCK is most consistent with chronic cholecystitis or biliary dyskinesia. Transthoracic Echo Report MEENA LEONG Exam Date: 08/30/2016 06:45 FINDINGS Left Ventricle Study enhanced with Optison contrast. The left ventricle was normal in size and function. Mild concentric left ventricular hypertrophy. The left ventricular wall motion is normal. LVEF is 60 - 64%. Diastolic function cannot be a ssessed due to E/A fusion. Right Ventricle The [...] acute cholecystitis. 2. Mild hepatomegaly. Assessment: Ms. Sol is a 40 y/o woman with extensive [...] HbA1c -Sliding scale insulin -HTN: PRN hydralazine and labetalol, cody e meds -CKD: avoid nephrotoxic meds -Will consult medicine due to extensive comorbities -DVT ppx: [facility] Nicolette Novao MD MSO: [id number] Pager: [phone] I have seen and examined the patient. [...] Plan for laparoscopic possible open cholecystectomy. Addendum by Duglas Joy MD on 09/07/2016 17:31 ATTENDING ATTESTATION: I have seen and examined the patient with the above provider (resident/fellow). Futhermore, I concur with their findings and plan as noted above. 09/11/2016 [facility] Extracted from:Title: GI Consult Note Author: Zhanna Robin MD Date: 08/17/16 Gastroenterology Service: Consult Note Reason for consultation: UGIB Consulting Physician: Dr Pacheco HPI: This is a 40 Y F who presented with acute on chronic abd pain, repeated dry heaving followed by one episode of coffee ground/bloody emesis after she ate a large amount of spicy wings. Hematemesis described as about 1 cup. No fevers, chills, melena, BRBPR. Pt also with poorly controlled DM s/p R BKA, CKD, HTN. Denies EtOH use, recent surgery, use of NSAIDs, blood thinners. Pt was recently at [facility] for abd pain and non witnessed hematemesis with plan for EGD but pt left AMA. Hb was 7.8 on discharge, Cr 2.5, Alk P 104. On arrival to ER here, pt tachy to 120s, HTN to 180s. Hb 10.8. PMH: DM, CKD, HTN PSH: BKA, C section SH: social EtOH use, last drink 2 weeks ago, past hx of polysubstance abuse. Lives with her kids FH: HTN, DM Review of systems A 12 point ROS was negative except per HPI Vitals and Temp: Vitals Tmp(F) Pulse BP RR SpO2 FIO2 08/17 10:45 97.2 102 115/76 14 100 --- 08/17 10:00 ---- 102 159/80 20 99 --- 08/17 09:00 ---- 101 144/81 20 99 --- 08/17 08:00 ---- 100 167/84 15 98 --- 08/17 07:00 ---- 97 170/98 2 0 100 --- 24 Hr Tmax: 99.0F (37.22c) at 08/16 21:1 6 Vital Signs are the last 5 in the past 48 hours. Physical Exam: Gen: Alert, oriented, NAD HEENT: EOMI, sclera anicteric, MMM CV: RRR Pulm: CTAB Abd: Soft, RUQ tenderness on deep palpation Ext: RBKA, left lower extremity swollen Neuro: Non focal Skin: Warm, dry Data: Reviewed Assessment: This is a 40 y F with hematemesis in the setting of repeated dry heaving and abd pain. Ddx: MW tear, esophagitis, gastritis - Agree with PPI drip - Plan for EGD today Patient seen and discussed with attending on service. Thank you for this consult. Zhanna Salomon MD PGY III Internal Medicine Pager: [phone] Patient was seen and examined by me. I have discussed the patient with Dr. Salomon. I agree with the above assessment and plan with the following addendum. Please see EGD note for further details. Leo Mancini MD Emergency Generator Mechanic Gastroenterology, Hepatology and Nutrition Extracted from:Title: History and Physical Author: Isidro Cook MD Date: 08/17/16 Assessment/Plan 1.Acute upper GI bleed Likely secondary to Brooke-Leon tear given dry heaving immediately prior to incident. Planning for EGD in the morning. Continue with Protonixin the interim. 2.CHF - Congestive heart failure Diastolic, EF is 85-60% per recent echo; no evidence of acute exacerbation 3.DM (diabetes mellitus) Started moderate dose Lantus as well as pre-meal aspart andmoderate dose sliding scale; insulins to begin after procedurethis patient will remain n.p.o. until that time and may be unlimited diet thereafter. 4.HTN - Hypertension Poor control with systolics near 200. Will give IV labetalol once now, patient will likely need to resume her home medications in the morning which have workedfor the past; current poor control is likely a result of her inability to take medications in the evening secondary to emesis. 5.Biliary colic Chronic, the drivingissue behind the majority of her pathology. Patient is extremely tired of taking chronic opioidsand is seeking surgicalcounseled for laparoscopic cholecystectomy. Currently working onattaining her Gold Card to seek care at [facility]. Prophylaxis Ambulation Disposition Pending EGD in the morning Joyce [phone] 08/18/2016 [facility] Extracted from:Title: Discharge Summary * Author: Anjel Potts MD Date: 07/17/16 Discharge Information Admit date: 07/15/16 Discharge date: 07/17/16 40 years of AF with past medical history of CHF (EF 55-60% on 04/2016), hypertension, diabetes complicated by R BKA (on 06/[address] Fernandez), CKD brought in by EMS for SOB and R stump surgical site pain. Patient reports waking up at 130 PM, an hour prior to admission with shortness of breath and worsening right stump pain. She states that she had severe shooting pain where her foot would have been prior to the surgery. She denies any pain, pus or drainage from site of the stump itself. She also reports worsening shortness of breath that is worse when she lies down and worsening peripheral edema over the course of the last two days. Patient states she has missed all her medications since yesterday morning including her lasix and blood pressure medications. She also reports having a cough w/ clear sputum production and a mild sore throat for the last two days. She denies fever, chills, sinus pain, rhinorrhea, diarrhea, or changes in urination. In ED, patient found to be afebrile without leukocytosis. Patient w/ normal HR and hypertensive emergency w/ systolics 250s but satting well on RA. CXR unchanged from previous admission. Patient given 3 pushes IV morphine 4 mg and 1 push dilaudid 1 mg for pain. She was given coreg 25, nifedipine 60 and hydralazine 100 mg for blood pressure with good response. ORS consulted with no acute surgical intervention at this time. It was determined that the patient was likely in acute exacerbation of her congestive heart failure caused by hypertensive emergency from medication non-compliance. Patient was given IV lasix for diuresis with good response and blood pressure medications were titrated for better control. On day of discharge patient given instructions to follow-up with her PCP in [facility] within 2 weeks. Patient given scripts for prescriptions below with nifedipine increased to 90 mg from 60 mg previously. Discharge diet: HH Discharge meds: Discharge Plan Discharge Summary Plan Discharge Status: improved. Discharge instructions given: to patient. Discharge disposition: discharge to home. Prescriptions: written and given to patient. Diagnosis Dyspnea (HCN09-GG R06.00, Working, Medical). Dyspnea (CXT21-CN R06.0, Working, Medical). Acute exacerbation of CHF (congestive heart failure) (XXJ21-IP I50.9, Working, Medical). Hypertensive emergency (ZQN27-EX I16.1, Working, Medical). Below knee amputation status (LUU15-XU Z89.519, Working, Medical). Diabetes mellitus (FXF15-FB E11.9, Working, Medical). CKD (chronic kidney disease), stage IV (DEU14-UA N18.4, Working, Medical). Course Improving. Education and Follow-up Counseled: patient. Extracted from:Title: ORS Foot and Ankle Daily Progress Note Author: Louis Sales MD Date: 07/17/16 ORS Foot and Ankle Daily Progress Note SUBJECTIVE Doing well, pain well controlled on current regimen, denies any new symptoms since previous examination OBJECTIVE Vitals Tmp(F) Pulse BP RR SpO2 FIO2 07/17 12:23 97.2 95 116/79 2 0 95 --- 07/17 08:25 97.5 90 149/94 2 0 98 --- 07/17 03:41 98.4 88 146/82 1 8 100 --- 07/16 23:16 99 92 143/86 20 99 --- 07/16 19:56 99.0 99 159/94 1 8 98 --- 24 Hr Tmax: 99F (37.22c) at 07/16 23:16 Vital Signs are the last 5 in the past 48 hours. RLE: Inspection: Dressings c/d/i (changed today, incision c/d/i, no drainage/erythema), elevated appropriatley, Compartments soft and compressible. Sensation: sensation intact to light touch over stump Vascular: Stump wwp ASSESSMENT and PLAN 40F s/p R BKA on 06/30/16 - WBS: NWB RLE - DVT PPx: SAVANA/SCD, chemical ppx per [facility] - Pain Control: MMP control per primary - Dispo: Patient will need to f/u with Dr. Fernandez 1 week s/p discharge, keep dressings c/d/i. [phone] for appt. 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 Fernandez), CKD4 presenting with shortness of breath and worsening right stump pain. Problem list: -CHF exacerbation -RLE pain -HTN emergency -DM2 -CKD #CHF exacerbation -likely 2/2 viral infection + medication non-compliance + hypertensive emergency -Last TTE in 04/2016: 55-60% LVEF -satting well at 98% on RA -CXR: vascular crowding -low suspicion for PE as dyspnea explain ed by above issues, despite d-dimer of 8.47 -EKG wnl and trop negative -f/u RSV and influenza panel -giving 1x dose of lasix 60 mg IVP -stright I&Os #RLE pain -s/p R BKA on 06/30 for chronic OM of righ t foot -ORS consulted in ED -likely phantom pain -f/u lower extremity doppler -restarted home gabapentin 300 mg BID #HTN emergency -SBPs on admission in 250s -s/p nifedipine 60, hydralazine 100 mg, and coreg 25 in ED -restarted home coreg 25 mg BID, hydrala zine 100 mg TID, nifedipine 60 mg qD -BP better controlled #DM2 -levemir 30 units qAM at home -started home levemir 15 units w/ low do se ISS #CKD stage 4 -baseline Cr: 2.4 to 3.1 -currently at baseline Cr -restarted home sevelamer and sodium bic arb (last day per script on EMR) -will renally dose medications PPx: Heparin 7500 unit subq Diet: HH w/ sodium restriction Full code Dispo: pending clinical improvement 07/17/2016 [facility] Extracted from:Title: [place] Renal Progress Note Author: Zak Marshall MD Date: 07/07/16 Patient: MEENA SOL Age: 40 years Sex: Female : 1975 Associated Diagnoses: None Author: Zak Marshall MD Chief Complaint right leg pain Reason for consult: rise in serum Cr Consult requested by: Dr. Gloria Carter History of Present Illness Ms. Sol is a 40 yo female with DM with charcot neuropathy, chronic OM, HLD, HTN, CKD4 (baseline Instrument Technician Helper ~2.5-2.8) who presented for evaluation of RLE pain, drainage and swelling. Previously told she needed amputation for this issue, she ultimately underwent RLE BKA on 06/30/17. Prior to surgery, her Instrument Technician Helper was around baseline of 2.5-2.8. Since post-op, her Instrument Technician Helper continued to uptrend up to 3.4. Renal was consulted to evaluate this BECKI on CKD. Of note, her other lab work also shows a worsening hyperkalemia and hyperphosphatemia along with metabolic acidosis. She states she was never told she has had any kidney issues. However, Instrument Technician Helper appears to have been in the CKD3-4 ranges since 2016. She currently is having active N/V, but otherwise denies any other symptoms such as fevers, chills, CP, SOB, D/C. Denies hematuria, dysuria. Denies any change in her urine quality or quantity. ==== Subjective: No acute events over night. Good UOP. Pain is still uncontrolled, but otherwise no other complaints. Health Status Allergies: Allergic Reactions (Selected) Severity Not Documented NKDA- No reactions were documented., Allergies (1) Active Reaction NKDA None Documented Current medications: (Selected) Inpatient Medications Ordered ALPRAZOLam 0.25 mg oral tablet: 0.25 mg, 1 tab, PO, Q8H, PRN: Anxiety Dextrose 50% Syringe: 12.5 gm, 25 mL, IVP, PRN, PRN: Blood Glucose Results Dextrose 50% Syringe: 25 gm, 50 mL, IVP, PRN, PRN: Blood Glucose Results Dulcolax Laxative: 10 mg, 1 supp, VA, Daily, PRN: Constipation Kayexalate: 15 gm, 60 mL, PO, TID Levemir: 30 unit, 0.3 mL, 0 ml/hr, SUB-Q, Daily Lidoderm 5% topical film (patch): 1 patch, TOP, Q24H Nifedical XL: 60 mg, 1 tab, PO, Daily [place] 10/325 oral tablet: 1 tab, PO, Q4H, PRN: Headache 4-6 [place] 10/325 oral tablet: 2 tab, PO, Q4H, PRN: Pain Score 7-10 Phenergan: 12.5 mg, 0.5 mL, IVPB, Q4H, PRN: Nausea and Vomiting Renvela: 0.8 gm, 1 tab, PO, Daily aspirin 81 mg tablet, enteric coated: 81 mg, 1 tab, PO, Daily carvedilol: 25 mg, 1 tab, PO, Q12H docusate: 100 mg, 1 cap, PO, BID dronabinol: 5 mg, 1 cap, PO, [id number] gabapentin 300 mg oral capsule: 300 mg, 1 cap, PO, Q12H glucagon: 1 mg, IM, PRN, PRN: Blood Glucose Results heparin: 7,500 unit, 1.5 mL, SUB-Q, Q8H hydrALAZINE 100 mg oral tablet: 100 mg, 2 tab, PO, TID hydrALAZINE: 5 mg, 0.25 mL, IV, Q4H, PRN: Other -See Comment insulin aspart: 1 unit, 0.01 mL, SUB-Q, TID-Before Meals, PRN: Blood Glucose Results insulin aspart: 2 unit, 0.02 mL, SUB-Q, TID-Before Meals, PRN: Blood Glucose Results insulin aspart: 3 unit, 0.03 mL, SUB-Q, TID-Before Meals, PRN: Blood Glucose Results insulin aspart: 4 unit, 0.04 mL, SUB-Q, TID-Before Meals, PRN: Blood Glucose Results insulin aspart: 5 unit, 0.05 mL, SUB-Q, TID-Before Meals, PRN: Blood Glucose Results methocarbamol: 1,000 mg, 2 tab, PO, TID ondansetron: 4 mg, 2 mL, IVP, Q8H, PRN: Nausea and Vomiting remove patch: 1 patch, TOP, Bedtime senna: 17.2 mg, 2 tab, PO, Bedtime sodium bicarbonate: 1,950 mg, 3 tab, PO, BID sodium chloride 0.9% INJ 250 mL: house calls nurse for use with blood product administration, IV, Stop: 08/01/16 18:37:00 CDT tramadol: 50 mg, 1 tab, PO, Q6Hnow Suspended Lasix 20 mg oral tablet: 20 mg, 1 tab, PO, BID atorvastatin: 40 mg, 1 tab, PO, Bedtime Prescriptions Prescribed Lasix 20 mg oral tablet: 20 mg, 1 tab, PO, BID, 30 tab, 1 Refill(s) Lidoderm 5% topical film (patch): 1 patch, TOP, Q24H, for 14 day, 14 patch, 0 Refill(s) NIFEdipine 60 mg oral tablet, extended release: 60 mg, 1 tab, PO, Daily, for 30 day, 30 tab, 0 Refill(s) [place] 10/325 oral tablet: 2 tab, PO, Q6H, for 3 day, PRN: Pain Score 7-10, 24 tab, 0 Refill(s) atorvastatin 40 mg oral tablet: 40 mg, 1 tab, PO, Bedtime, for 90 day, 90 tab, 0 Refill(s) carvedilol 25 mg oral tablet: 25 mg, 1 tab, PO, Q12H, for 30 day, 60 tab, 3 Refill(s) dronabinol 5 mg oral capsule: 5 mg, 1 cap, PO, [id number], for 7 day, 14 cap, 0 Refill(s) gabapentin 300 mg oral capsule: 300 mg, 1 cap, PO, Q12H, for 30 day, 60 cap, 0 Refill(s) hydrALAZINE 100 mg oral tablet: 100 mg, 1 tab, PO, TID, 90 tab, 0 Refill(s) methocarbamol 500 mg oral tablet: 1,000 mg, 2 tab, PO, TID, for 5 day, PRN: Muscle Spasms, 30 tab, 0 Refill(s) sevelamer carbonate 800 mg oral tablet: 0.8 gm, 1 tab, PO, Daily, for 30 day, , 30 tab, 0 Refill(s) sodium bicarbonate 650 mg oral tablet: 1,950 mg, 3 tab, PO, BID, for 10 day, 60 tab, 0 Refill(s) sodium polystyrene sulfonate 15 g/60 mL oral and rectal suspension: 15 gm, 60 mL, PO, TID, for 14 day, 2520 mL, 0 Refill(s) tramadol 50 mg oral tablet: 50 mg, 1 tab, PO, Q6Hnow, for 5 day, PRN: Pain Score 1-3, 20 tab, 0 Refill(s) Documented Medications Documented Levemir 100 units/mL: 30 unit, SUB-Q, Daily, 0 Refill(s) aspirin 81 mg tablet, enteric coated: 81 mg, 1 tab, PO, Daily, 90 tab, 3 Refill(s), Medications (33) Active Scheduled: (17) aspirin 81 mg ECT 81 mg 1 tab, PO, Daily carvedilol 25 mg TAB 25 mg 1 tab, PO, Q12H docusate sodium 100 mg CAP 100 mg 1 cap, PO, BID dronabinol 5 mg CAP 5 mg 1 cap, PO, [id number] gabapentin 300 mg CAP 300 mg 1 cap, PO, Q12H heparin 5000 unit/1 ml INJ VL 7,500 unit 1.5 mL, SUB-Q, Q8H hydrALAZINE 50 mg TAB 100 mg 2 tab, PO, TID insulin DETEMIR 1 unit INJ 30 unit 0.3 mL, SUB-Q, Daily lidocaine 5% top patch 1 patch, TOP, Q24H lidocaine patch removal 1 patch, TOP, Bedtime methocarbamol 500 mg TAB 1,000 mg 2 tab, PO, TID NIFEdipine 60 mg ERTAB 60 mg 1 tab, PO, Daily senna 8.6 mg TAB 17.2 mg 2 tab, PO, Bedtime sevelamer carbonate 800mg tab (Renvela) 0.8 gm 1 tab, PO, Daily sodium bicarbonate 650 mg TAB 1,950 mg 3 tab, PO, BID sodium polystyrene sulfonate STEPHANIE 15gm/60ml 15 gm 60 mL, PO, TID traMADol 50 mg TAB 50 mg 1 tab, PO, Q6Hnow Continuous: (1) sodium chloride 0.9% INJ 250 mL 250 mL, IV PRN: (15) acetaminophen-hydrocodone 325 mg-10 mg TAB 1 tab, PO, Q4H acetaminophen-hydrocodone 325 mg-10 mg TAB 2 tab, PO, Q4H ALPRAZolam 0.25 mg TAB 0.25 mg 1 tab, PO, Q8H bisacodyl 10 mg rect SUPP 10 mg 1 supp, VA, Daily Dextrose 50% 50 ml INJ syringe 12.5 gm 25 mL, IVP, PRN Dextrose 50% 50 ml INJ syringe 25 gm 50 mL, IVP, PRN glucagon recombinant 1 mg PDR 1 mg, IM, PRN hydrALAZINE 20 mg/1 ml VL 5 mg 0.25 mL, IV, Q4H insulin aspart 100 unit/ml 3ml Pen 1 unit 0.01 mL, SUB-Q, TID-Before Meals insulin aspart 100 unit/ml 3ml Pen 2 unit 0.02 mL, SUB-Q, TID-Before Meals insulin aspart 100 unit/ml 3ml Pen 3 unit 0.03 mL, SUB-Q, TID-Before Meals insulin aspart 100 unit/ml 3ml Pen 4 unit 0.04 mL, SUB-Q, TID-Before Meals insulin aspart 100 unit/ml 3ml Pen 5 unit 0.05 mL, SUB-Q, TID-Before Meals ondansetron 4 mg/2ml INJ VL 4 mg 2 mL, IVP, Q8H promethazine 25 mg/1 ml INJ 12.5 mg 0.5 mL, IVPB, Q4H Problem list: All Problems CHF - Congestive heart failure / SNOMED CT 804321465 / Confirmed DM (diabetes mellitus) / SNOMED CT [id number] / Confirmed HTN - Hypertension / SNOMED CT 0378809865 / Confirmed Klebsiella / SNOMED CT 687294856 / Confirmed Problem added by Discern Expert. Blood, 03/29/2016 MRSA / SNOMED CT 067487610 / Confirmed Problem added by Discern Expert. nares - 02/19/16 right foot aspirate - 02/23/16 Osteomyelitis / SNOMED CT 164864537 / Confirmed Canceled: Neuropathy / SNOMED CT 4068296129, Active Problems (6) CHF - Congestive heart failure DM (diabetes mellitus) HTN - Hypertension Klebsiella MRSA Osteomyelitis Histories Past Medical History: Active HTN - Hypertension (2010897777) DM (diabetes mellitus) ([id number]) CHF - Congestive heart failure (924386829) Osteomyelitis (013479357) Family History: High blood pressure Father Mother Heart failure Father Mother Type 2 diabetes mellitus Father Mother Procedure history: section (61863438). Amputation ([id number]). Comments: 11/01/2015 21:50 - Rashawn Garzon RN 2 toes in R foot Social History Social and Psychosocial Habits Alcohol 11/01/2015 Use: Never Substance Abuse 11/01/2015 Use: None Tobacco 05/17/2016 Use: Never smoker Exposure to Tobacco Smoke None Cigarette Smoking Last 365 Days No Reg Smoking Cessation Counseling No 06/27/2016 Use: Never smoker Type: Cigarettes Exposure to Tobacco Smoke None Cigarette Smoking Last 365 Days No Reg Smoking Cessation Counseling No . Physical Examination VS/Measurements Vital Signs (last 24 hrs) Last Charted Temp Oral 98.4 DegF (JUL 07:) Heart Rate Peripheral 100 bpm (JUL 07:) Resp Rate 18 BRMIN (JUL 07:) SBP H 158mmHg (JUL 07:) DBP 83 mmHg (JUL 07:) SpO2 98 % (JUL 07:) General: Alert and oriented, Mild distress, actively vomiting, obese AAF. Eye: Pupils are equal, round and reactive to light, Normal conjunctiva. HENT: Normocephalic, Normal hearing. Neck: Supple, Non-tender. Respiratory: Lungs are clear to auscultation, Respirations are non-labored, Symmetrical chest wall expansion, No chest wall tenderness. Cardiovascular: Normal rate, No murmur, No gallop, 2+ pitting edema on L leg up to knee. Gastrointestinal: Soft, Non-tender, Non-distended, Normal bowel sounds, obese. Musculoskeletal s/p R BKA. . Integumentary: Warm, No rash. Neurologic: Alert, Oriented. Cognition and Speech: Oriented, Speech clear and coherent. Review / Management Results review: Labs (Last four charted values) WBC 8.2 (JUL 05) 8.4 (JUL 04) 8.6 (JUL 03) 7.1 (JUL 02) Hgb L 9.0 (JUL 05) L 8.6 (JUL 04) L 8.0 (JUN 12) C 6.8 (JUL 02) Hct L 28.4 (JUN 14) L 26.5 (JUN 13) L 25.8 (JUN 12) L 21.4 (JUN 11) Plt H 452 (JUN 14) 391 (JUN 13) 403 (JUN 12) 370 (JUN 11) Na 142 (JUN 16) 144 (JUN 15) 138 (JUN 14) 138 (JUN 13) K 4.8 (JUN 16) 4.8 (JUN 15) H 5.5 (JUN 14) H 5.4 (JUN 13) CO2 27 (JUL 07) 27 (JUN 15) L 20 (MAR 14) L 20 (JUL 04) Cl 109 (JUL 07) 109 (JUL 06) 108 (JUL 05) H 110 (JUL 04) Cr H 2.48 (JUL 07) H 2.45 (JUL 06) H 2.64 (JUL 05) H 3.05 (JUL 04) BUN 22 (JUL 07) 21 (JUL 06) H 25 (JUN 14) H 30 (JUL 04) Glucose Random 97 (JUL 07) L 66 (JUL 06) 84 (JUL 05) C 49 (JUL 04) Mg 2.0 (JUL 07) 1.8 (JUL 05) 1.8 (JUL 03) 1.8 (JUL 02) Phos H 5.1 (JUL 07) 4.3 (JUL 05) H 5.1 (JUL 03) C 1.3 (JUL 03) Ca L 8.2 (JUL 07) L 8.4 (JUL 06) L 8.4 (JUL 05) 8.7 (JUL 04) PT 13.7 (JUN 28) INR 1.03 (JUN 28) PTT 31.4 (JUN 28) . Impression and Plan Ms. Sol is a 40 yo female with DM with charcot neuropathy, chronic OM, HLD, HTN, CKD4 (baseline Instrument Technician Helper ~2.5-2.8) who presented for evaluation of RLE pain, drainage and swelling. Previously told she needed amputation for this issue, she ultimately underwent RLE BKA on 06/30/17. Prior to surgery, her Instrument Technician Helper was around baseline of 2.5-2.8. Since post-op, her Instrument Technician Helper continued to uptrend up to 3.4. Renal was consulted to evaluate this BECKI on CKD. #BECKI on CKD 4 (B/L Instrument Technician Helper 2.5-2.8) -Instrument Technician Helper 3.4 after surgical procedure. Now d owntrended to 3.05--> 2.45 (Baseline) --> 2.48 (Baseline) -Likely ATN 2/2 surgery and inflammatory state. --Now back to baseline. UOP adequate @ 2.3L/24hours. -Volume status: mildly volume overloaded . Likely 2/2 hypoalbuminemia. UPC 16. EF 55-60% --Now that baby stroller rental clerk is back to baseline, would recommend restarting low dose lisinopril to control proteinuria. --Monitor for worsening hyperkalemia --Would expect baby stroller rental clerk to increase by ~30% after starting CHANLDER-i and would continue monitoring. --Can consider lasix 40 qd if renal function is stable. -UOP: 2L/24hours -Renal U/S - medical renal disease. No h ydronephrosis -Avoid NSAIDS, CHANDLER-i, Other nephrotoxic agents. Hold diuretics for now. -Renally dose all medications -Renal Diet #Metabolic acidosis: HCO3 20. 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 -s/p 3 doses of 15g of kayexalate. K now 4.8. Continue medical management. #Hyperphosphatemia - Continue Sevelamer 800 with dinner #Anemia - Hb stable around 8. Required transfusion on 07/02 for Hb 6.8. No CBC today #HTN - Better controlled. Coreg 25, hydral 100 TID. Nifedipine 60 #Nephrotic range proteinuria - As above. Thank you for the consult. Discussed with Dr. Fields. We will sign off. Addendum by Celeste Fields MD on 07/07/2016 21:52 ATTENDING NOTE I have seen and examined the patient, reviewed the laboratory data, discussed the pertinent case findings with the resident/fellow, and agree with the assessment and plan as documented below. Extracted from:Title: [place] Renal Initial Consultation Note Author: Zak Marshall MD Date: 07/04/16 Impression and Plan Ms. Sol is a 40 yo female with DM with charcot neuropathy, chronic OM, HLD, HTN, CKD4 (baseline Instrument Technician Helper ~2.5-2.8) who presented for evaluation of RLE pain, drainage and swelling. Previously told she needed amputation for this issue, she ultimately underwent RLE BKA on 06/30/17. Prior to surgery, her Instrument Technician Helper was around baseline of 2.5-2.8. Since post-op, her Instrument Technician Helper continued to uptrend up to 3.4. Renal was consulted to evaluate this BECKI on CKD. #BECKI on CKD 4 (B/L Instrument Technician Helper 2.5-2.8) -Instrument Technician Helper 3.4 after surgical procedure. Now d owntrended to 3.05 -Likely ATN 2/2 surgery and inflammatory state. -Volume status: mildly volume overloaded . -UOP: 1.8L/24hours -Consider checking renal U/S to assess r enal echotexture and size. -Consider checking a UPC. -Avoid NSAIDS, CHANDLER-i, Other nephrotoxic agents. Hold diuretics for now. -Renally dose all medications #Metabolic acidosis: HCO3 20. Consider increasing NaHCO3 to 1950 BID. 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 Recommend medical management. Consider Kayexelate 15g 1-4 times a day with close monitoring of K. #Hyperphosphatemia - Recommend starting sevelamer 1600 TID with meals #Anemia - Hb stable around 8. Required transfusion on 07/02 for Hb 6.8. Consider checking iron panel. #HTN - Poorly controlled. On Amlodipine 10, coreg 25, hydral 100 TID. Consider switching amlodipine to nifedipine XL BID for better control ===== ADDENDUM: Please decrease sevelamer to 800 with dinner Continue NaHCO3 Continue renal diet Hold diuretics for now ===== Thank you for the consult. Discussed with Dr. Fields. ATTENDING NOTE I have seen and examined the patient, reviewed the laboratory data, discussed the pertinent case findings with the resident/fellow, and agree with the assessment and plan as documented. Plan was discussed with primary team. Extracted from:Title: History and Physical Author: Darrion Wolf DO Date: 06/28/16 Assessment/Plan Patient is a 40 year old AA female with PMH HTN, DM, CKD, chronic osteo, HLD, anxiety who presented 2/2 excruciating RLE pain associatedwith drainage / swelling. 1.Subacute osteomyelitis, right ankle an d foot hold antibiotics at this time. patient not acutely septic.Plan for OR with ortho for amputation. NPO. Ordered: Admit/Condition 2.CKD (chronic kidney disease), stage IV Cr around baseline. repeat bmp in am 3.Acute pain APAP / tramadol / oxycodone / lidoderm ordered. holdcelebrex 2/2 poor renal function Ordered: gabapentin 300 mg oral capsule, 300 mg, 1 cap, Route: PO, Drug form: CAP, Q12H, Dosing Weight 112.727, kg, Start date: 06/28/16 9:00:00 IMMUNOLOGY SPECIALIST, Duration: 30 day, Stop date: 07/27/16 21:00:00 CDT 4.DM (diabetes mellitus) add ssi Ordered: Levemir, 30 unit, Route: SUB-Q, Drug form: SOLN, Daily, Dosing Weight 112.727, kg, Start date: 06/28/16 9:00:00 IMMUNOLOGY SPECIALIST, Duration: 30 day, Stop date: 07/27/16 9:00:00 CDT 5.HTN - Hypertension Ordered: amLODIPine, 10 mg, Route: PO, Drug form: TAB, Daily, Dosing Weight 112.727, kg, Start date: 06/28/16 9:00:00 IMMUNOLOGY SPECIALIST, Duration: 30 day, Stop date: 07/27/16 9:00:00 CDT carvedilol, 25 mg, Route: PO, Drug form: TAB, Q12H, Dosing Weight 112.727, kg, Start date: 06/28/16 9:00:00 IMMUNOLOGY SPECIALIST, Duration: 30 day, Stop date: 07/27/16 21:00:00 CDT Lasix 20 mg oral tablet, 20 mg, 1 tab, Route: PO, Drug form: TAB, BID, Dosing Weight 112.727, kg, Start date: 06/28/16 9:00:00 IMMUNOLOGY SPECIALIST, Duration: 30 day, Stop date: 07/27/16 17:00:00 CDT hydrALAZINE 100 mg oral tablet, 100 mg, 1 tab, Route: PO, Drug form: TAB, TID, Dosing Weight 112.727, kg, Start date: 06/28/16 9:00:00 IMMUNOLOGY SPECIALIST, Duration: 30 day, Stop date: 07/27/16 17:00:00 CDT 6.Hyperlipidemia atorvastatin 7.Anxiety/Depression alprazolam prn Orders: acetaminophen, 1,000 mg, Route: IVPB, Q6Hnow, Dosing Weight 112.727, kg, Start date: 06/28/16 3:00:00 IMMUNOLOGY SPECIALIST, Duration: 30 day, Stop date: 07/27/16 21:00:00 CDT ALPRAZOLam 0.25 mg oral tablet, 0.25 mg, 1 tab, Route: PO, Drug form: TAB, Q8H, Dosing Weight 112.727, kg, PRN Anxiety, Start date: 06/28/16 2:38:00 IMMUNOLOGY SPECIALIST, Duration: 30 day, Stop date: 07/28/16 2:37:00 CDT aspirin 81 mg tablet, enteric coated, 81 mg, 1 tab, Route: PO, Drug form: ECTAB, Daily, Dosing Weight 112.727, kg, Start date: 06/28/16 9:00:00 IMMUNOLOGY SPECIALIST, Duration: 30 day, Stop date: 07/27/16 9:00:00 CDT atorvastatin, 40 mg, Route: PO, Drug form: TAB, Bedtime, Dosing Weight 112.727, kg, Start date: 06/28/16 21:00:00 IMMUNOLOGY SPECIALIST, Duration: 30 day, Stop date: 07/27/16 21:00:00 CDT Dextrose 50% Syringe, 50 mL, Route: IVP, Dosing Weight 112.727, kg, PRN, PRN Blood Glucose Results, Start date: 06/28/16 2:39:00 IMMUNOLOGY SPECIALIST, Duration: 30 day, Stop date: 07/28/16 3:38:00 CDT Dextrose 50% Syringe, 25 mL, Route: IVP, Dosing Weight 112.727, kg, PRN, PRN Blood Glucose Results, Start date: 06/28/16 2:39:00 IMMUNOLOGY SPECIALIST, Duration: 30 day, Stop date: 07/28/16 3:38:00 CDT docusate, 100 mg, Route: PO, BID, Dosing Weight 112.727, kg, Start date: 06/28/16 9:00:00 IMMUNOLOGY SPECIALIST, Duration: 30 day, Stop date: 07/27/16 17:00:00 CDT glucagon, 1 mg, Route: IM, PRN, Dosing Weight 112.727, kg, PRN Blood Glucose Results, Start date: 06/28/16 2:39:00 IMMUNOLOGY SPECIALIST, Duration: 30 day, Stop date: 07/28/16 3:38:00 CDT insulin aspart, 5 unit, Route: SUB-Q, TID-Before Meals, Dosing Weight 112.727, kg, PRN Blood Glucose Results, Start date: 06/28/16 2:39:00 IMMUNOLOGY SPECIALIST, Duration: 30 day, Stop date: 07/28/16 2:38:00 CDT insulin aspart, 1 unit, Route: SUB-Q, TID-Before Meals, Dosing Weight 112.727, kg, PRN Blood Glucose Results, Start date: 06/28/16 2:39:00 IMMUNOLOGY SPECIALIST, Duration: 30 day, Stop date: 07/28/16 2:38:00 CDT insulin aspart, 2 unit, Route: SUB-Q, TID-Before Meals, Dosing Weight 112.727, kg, PRN Blood Glucose Results, Start date: 06/28/16 2:39:00 IMMUNOLOGY SPECIALIST, Duration: 30 day, Stop date: 07/28/16 2:38:00 CDT insulin aspart, 3 unit, Route: SUB-Q, TID-Before Meals, Dosing Weight 112.727, kg, PRN Blood Glucose Results, Start date: 06/28/16 2:39:00 IMMUNOLOGY SPECIALIST, Duration: 30 day, Stop date: 07/28/16 2:38:00 CDT insulin aspart, 4 unit, Route: SUB-Q, TID-Before Meals, Dosing Weight 112.727, kg, PRN Blood Glucose Results, Start date: 06/28/16 2:39:00 IMMUNOLOGY SPECIALIST, Duration: 30 day, Stop date: 07/28/16 2:38:00 CDT Lidoderm 5% topical film (patch), 1 patch, Route: TOP, Q24H, Start date: 06/28/16 3:00:00 IMMUNOLOGY SPECIALIST, Duration: 30 day, Stop date: 07/27/16 3:00:00 CDT methocarbamol, 750 mg, Route: PO, Drug form: TAB, TID, Dosing Weight 112.727, kg, Start date: 06/28/16 9:00:00 IMMUNOLOGY SPECIALIST, Duration: 30 day, Stop date: 07/27/16 17:00:00 CDT morphine Sulfate, 2 mg, Route: IVP, Q4H, Dosing Weight 112.727, kg, PRN Pain Score 7-10, Start date: 06/28/16 2:37:00 IMMUNOLOGY SPECIALIST, Duration: 30 day, Stop date: 07/28/16 2:36:00 CDT ondansetron, 4 mg, Route: IVP, Q8H, Dosing Weight 112.727, kg, PRN Nausea and Vomiting, Start date: 06/28/16 2:37:00 IMMUNOLOGY SPECIALIST, Duration: 30 day, Stop date: 07/28/16 2:36:00 CDT oxyCODONE 5 mg immediate release, 5 mg, Route: PO, Drug form: TAB, Q4H, Dosing Weight 112.727, kg, PRN Pain Score 4-6, Start date: 06/28/16 2:37:00 IMMUNOLOGY SPECIALIST, Duration: 30 day, Stop date: 07/28/16 2:36:00 CDT oxyCODONE 5 mg immediate release, 10 mg, Route: PO, Drug form: TAB, Q4H, Dosing Weight 112.727, kg, PRN Pain Score 7-10, Start date: 06/28/16 2:37:00 IMMUNOLOGY SPECIALIST, Duration: 30 day, Stop date: 07/28/16 2:36:00 CDT senna, 2 tab, Route: PO, Dosing Weight 112.727, kg, Bedtime, Start date: 06/28/16 21:00:00 IMMUNOLOGY SPECIALIST, Duration: 30 day, Stop date: 07/27/16 21:00:00 CDT tramadol, 50 mg, Route: PO, Drug form: TAB, Q6Hnow, Dosing Weight 112.727, kg, Start date: 06/28/16 3:00:00 IMMUNOLOGY SPECIALIST, Duration: 30 day, Stop date: 07/27/16 21:00:00 CDT Ambulation Basic Metabolic Panel Bedrest CDM Acute Pain/Anxiolytic Orders CDM Admission Acute Care Post ED CDM Aspart (Novolog) for Starting Correction Doses CDM Insulin Sub-Q Orders for patients on Oral Nutrition Complete Blood Count w/ Diff and Platelet Diet NPO Hypoglycemia Management Hypoglycemia Management Intake and Output Notify Notify Notify Notify Notify Notify MD Windy COCHRAN Provide Education AC4 Patient Education AC4 Point of Care Blood Glucose AC4 Point of Care Blood Glucose AC4 Falls Protocol Pulse Oximetry Spot Check by Nurse Resuscitation (Code) Status Turn Vital Signs Weigh patient AC4 Prophylaxis heparin Disposition home v snf following surgical intervention, pt/ot please page dr cornejo with any further questions 07/07/2016 [facility] Extracted from:Title: [facility] Foot and Ankle Daily Progress Note Author: Louis Sales MD Date: 06/24/16 [facility] Foot and Ankle Daily Progress Note SUBJECTIVE Doing well, pain well controlled on current regimen, denies any new symptoms since previous examination OBJECTIVE Vitals Tmp(F) Pulse BP RR SpO2 FIO2 06/24 08:31 98.8 96 151/86 1 8 94 --- 06/24 04:39 98.3 110 145/97 18 95 --- 06/23 23:52 97.9 102 150/76 18 96 --- 06/23 19:56 98.0 105 155/76 18 97 --- 06/23 16:37 98.0 100 155/94 18 97 --- 24 Hr Tmax: 98.8F (37.11c) at 06/24 08:3 1 Vital Signs are the last 5 in the past 48 hours. RLE: Extensive edema to R ankle/foot with rocker bottom deformity. Numerous healed wounds throughout foot and ankle. 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 No actively draining wounds. Able to weakly move ankle. Ankle grossly unstable in sagittal plane. Endorses decreased sensation throughout foot. ASSESSMENT and PLAN 40F with chronic Charcot/osteo R foot/an kle admitted with increased pain with acute fx - Patient declined amputation, will f/u in clinic for possible ankle fusion - WBS: NWB RLE - DVT PPx: SAVANA/SCD per primary - Pain Control: MMP control - Abx: per primary - PT/OT: consulted - Dispo: - OK for discharge per ORS F&A, f/u with Dr. Fernandez 1 week s/p discharge for further operative planning Louis May III, MD PGY-2 Orthopaedic Surgery Pager#: [phone] MSO#: [id number] Extracted from:Title: Infection Control Isolation Alert Author: Zainab Restrepo Date: 06/22/16 ISOLATION ALERT This patient has a history of infection/colonization with a multi-drug resistant organism. Organism Site Date MDR Klebsiella-ESBL Blood 03/26/2016 MRSA Rt Foot Aspirate 02/23/2016 Isolation Required: CONTACT Before isolation precautions may be discontinued, the following protocol must be followed and Infection Control should be notified: Organism Status Cultures Sites MRSA Off abx x 72hrs or 7 days if on dialysis and vancomycin x 2, 48 hrs apart Anterior nares, wounds, and any previous positive sites VRE Off abx x 72hrs or 7 days if on dialysis and renally-cleared drug active against patient's isolate x 2, 48 hrs apart Stool and any previous positive sites PCN-R or PCN-Intermediate [...] x2, 48 hrs apart Urine, stool, throat, and any previous positive sites Stenotrophomonas R to Trimethoprim-Sulfa Methoxazole (T/S) Off abx x 72hrs or 7 days if on dialysis and aminoglycoside x2, 48h apart Urine, stool, throat, and any previous positive sites Chryseobacterium meningosepticum (formerly Flavobacterium meningosepticum) and other Chryseobacterium spp. 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 We can be reached at [phone]. Extracted from:Title: History and Physical Author: Farnaz Peacock MD Date: 06/22/16 Assessment/Plan 1.Dislocation of distal tibia Patient has been very reluctant to undergo surgery. I explained to her the risks and benefits ofdelaying further treatment including risk of worsened infection and decreased functional status. HerADL function has had significant decline since theonset of herinjury. She believes she is 90% sure to have surgery but would like her family to be updated about this. 2.Osteomyelitis He will continue minocyclineindefinitely or until amputation has been performed Ordered: Admit/Condition 3.CHF - Congestive heart failure, compensated Continue Lasix as needed currently euvolemic 4.DM (diabetes mellitus) Controlled continue sliding-scale. Patient is on Levemir as an outpatient however unclear as to how much she is actually taking with compliance willbase adjustments on 24 hour use of insulin 5.HTN - Hypertension Uncontrolled likely due to medication noncompliance will continue carvedilol amlodipine and hydralazine per priordischarge 6.Moderate protein malnutrition Nutrition consulted 7.Chronic kidney disease Renally dose meds and avoid nephrotoxinsmaintain appropriate intake output 8.Anemia of chronic disease No active bleedingand asymptomatic we will continue to monitor Prophylaxis Heparin Disposition Pending determination of surgery Hospitalist is Primary, pager [phone] 06/24/2016 [facility] Extracted from:Title: Infection Control Isolation Alert Author: Zainab Restrepo Date: 06/14/16 ISOLATION ALERT This patient has a history of infection/colonization with a multi-drug resistant organism. Organism Site Date MRSA Rt Foot Aspirate 02/23/2016 MDR Klebsiella - ESBL Blood 03/26/2016 Isolation Required: CONTACT Before isolation precautions may be discontinued, the following protocol must be followed and Infection Control should be notified: Organism Status Cultures Sites MRSA Off abx x 72hrs or 7 days if on dialysis and vancomycin x 2, 48 hrs apart Anterior nares, wounds, and any previous positive sites VRE Off abx x 72hrs or 7 days if on dialysis and renally-cleared drug active against patient's isolate x 2, 48 hrs apart Stool and any previous positive sites PCN-R or PCN-Intermediate [...] x2, 48 hrs apart Urine, stool, throat, and any previous positive sites Stenotrophomonas R to Trimethoprim-Sulfa Methoxazole (T/S) Off abx x 72hrs or 7 days if on dialysis and aminoglycoside x2, 48h apart Urine, stool, throat, and any previous positive sites Chryseobacterium meningosepticum (formerly Flavobacterium meningosepticum) and other Chryseobacterium spp. 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 We can be reached at [phone]. Extracted from:Title: ORS Foot and Ankle Daily Progress Note Author: Louis Sales MD Date: 06/13/16 ORS Foot and Ankle Daily Progress Note SUBJECTIVE Patient sitting on the side of the bed, currently endorses that she does not wish to undergo operative intervention at this time, pain to right foot, leg, back OBJECTIVE Vitals Tmp(F) Pulse BP RR SpO2 FIO2 06/13 18:30 98.8 111 144/94 20 98 --- 06/13 16:57 ---- 99 172/78 1 2 99 --- 06/13 16:00 ---- 101 160/82 14 100 --- 06/13 15:51 ---- 101 172/97 15 99 --- 06/13 15:42 ---- 97 192/105 20 100 --- 24 Hr Tmax: 98.8F (37.11c) at 06/13 18:3 0 Vital Signs are the last 5 in the past 48 hours. EXAM: RLE: Inspection: - Evidence of previous 1-3 R toe ampuati on; obvious gross deformity/edmea to R foot; xerodermatitis and induration of skin throughout with dark discoloration; well-healed scarring from previous ex-fix pin sites along the anterior shaft of the tibia; well-healed wound to medial aspect of distal lower leg with no visible breakdown - TTP throughout the R foot and along th e anterior aspect of the R lower leg to the level of the mid-tibia Sensation: - SILT DP, SP, Tib, Fran, Saph nerve dist ributions Motor: - Moves remaining toes, 4/5 TA, 4/5GS, 4 /5 Knee flex, 4/5 Knee ext Vascular: - cap refill delayed > 2 secs throughout ASSESSMENT and PLAN 40F with chronic Charcot/osteo R foot/an kle admitted with increased pain - Patient originally endorsed that she w ished to undergo an amputation however wishes to pursue non-operative management at this time. - WBS: WBAT RLE - DVT PPx: SAVANA/SCD per primary - Pain Control: MMP control - Abx: per primary - PT/OT: consult - Dispo: Pending staff discussion, patient does not wish to undergo operative intervention at this time. Hx of poor compliance/follow up with previous interventions. Louis May III, MD PGY-2 Orthopaedic Surgery Pager#: [phone] MSO#: [id number] Extracted from:Title: History and Physical Author: Sivakumar Rosales MD Date: 06/13/16 Assessment/Plan 1.Osteomyelitis X-rays of the right foot, ankle and tibia show worsening osteomyelitis. Patient evaluated by ORS, who are recommending right BKA at this time. Patient is currently not wanting an amputation and would like to continue pain control and medical management. Check blood cultures. Plan to start empiric antibiotics afterwards. Ordered: Admit/Condition 2.Pre-operative clearance Patient has uncontrolled insulin dependent diabetes, CKD III with baseline Cr >2 but not evidence of CHF as previously diagnosed. She has a poor functional status due to obesity and right foot osteomyelitis. She has a has a moderate 2.4% of major cardiovascular event with this intermediate risk procedure. 3.Hypertension Resumed home meds. Increased hydralazine. Monitor response. Ordered: Admit/Condition 4.DM (diabetes mellitus) Resume home Lantus. Start Aspart 5 units TIDAC and high dose sliding scale insulin. F/u response. 5.Stage III chronic kidney disease Appears at baseline Cr. Avoid nephrotoxins, renally dose all medications. 6.Anemia of chronic disease Hb stable from previous visit. Monitor and transfer for Hb <7. 7.Anxiety/Depression Continue PRN Xanax. 8.Hyperkalemia Resolved s/p Kayexalate and albuterol. 9.Moderate protein malnutrition Nutrition consulted. Start Boost glucose TID. Orders: acetaminophen, 1,000 mg, 2 tab, Route: PO, Drug form: TAB, Q8H, Dosing Weight 112.727, kg, Start date: 06/13/16 16:00:00 IMMUNOLOGY SPECIALIST, Duration: 30 day, Stop date: 07/13/16 8:00:00 CDT ALPRAZOLam, 0.25 mg, 1 tab, Route: PO, Drug form: TAB, Q8H, Dosing Weight 112.727, kg, PRN Anxiety, Start date: 06/13/16 15:19:00 IMMUNOLOGY SPECIALIST, Duration: 30 day, Stop date: 07/13/16 15:18:00 CDT amLODIPine, 10 mg, 1 tab, Route: PO, Drug form: TAB, Daily, Dosing Weight 112.727, kg, Start date: 06/14/16 9:00:00 IMMUNOLOGY SPECIALIST, Duration: 30 day, Stop date: 07/13/16 9:00:00 CDT aspirin 81 mg tablet, enteric coated, 81 mg, 1 tab, Route: PO, Drug form: ECTAB, Daily, Dosing Weight 112.727, kg, Start date: 06/14/16 9:00:00 IMMUNOLOGY SPECIALIST, Duration: 30 day, Stop date: 07/13/16 9:00:00 CDT atorvastatin, 40 mg, 1 tab, Route: PO, Drug form: TAB, Bedtime, Dosing Weight 112.727, kg, Start date: 06/13/16 21:00:00 IMMUNOLOGY SPECIALIST, Duration: 30 day, Stop date: 07/12/16 21:00:00 CDT bisacodyl, 10 mg, 1 supp, Route: VA, Drug form: SUPP, Daily, Dosing Weight 112.727, kg, PRN Constipation, Start date: 06/13/16 15:19:00 IMMUNOLOGY SPECIALIST, Duration: 30 day, Stop date: 07/13/16 15:18:00 CDT carvedilol, 25 mg, 1 tab, Route: PO, Drug form: TAB, Q12H, Dosing Weight 112.727, kg, Start date: 06/13/16 21:00:00 IMMUNOLOGY SPECIALIST, Duration: 30 day, Stop date: 07/13/16 9:00:00 CDT docusate, 100 mg, 1 cap, Route: PO, Drug form: CAP, BID, Dosing Weight 112.727, kg, Start date: 06/13/16 17:00:00 IMMUNOLOGY SPECIALIST, Duration: 30 day, Stop date: 07/13/16 9:00:00 CDT Lasix 20 mg oral tablet, 20 mg, 1 tab, Route: PO, Drug form: TAB, BID, Dosing Weight 112.727, kg, Start date: 06/13/16 17:00:00 IMMUNOLOGY SPECIALIST, Duration: 30 day, Stop date: 07/13/16 9:00:00 CDT gabapentin, 300 mg, 1 cap, Route: PO, Drug form: CAP, Q8Hnow, Dosing Weight 112.727, kg, Start date: 06/13/16 16:00:00 IMMUNOLOGY SPECIALIST, Duration: 30 day, Stop date: 07/13/16 8:00:00 CDT heparin, 5,000 unit, 1 mL, Route: SUB-Q, Drug form: INJ, Q8H, Dosing Weight 112.727, kg, Start date: 06/13/16 16:00:00 IMMUNOLOGY SPECIALIST, Duration: 30 day, Stop date: 07/13/16 8:00:00 CDT hydrALAZINE, 10 mg, 0.5 mL, Route: IV, Drug form: INJ, Q3H, Dosing Weight 112.727, kg, PRN Hypertension, Start date: 06/13/16 16:01:00 IMMUNOLOGY SPECIALIST, Duration: 30 day, Stop date: 07/13/16 16:00:00 CDT, Hypertension SBP >180 or DBP >100 hydrALAZINE 50 mg oral tablet, 50 mg, 1 tab, Route: PO, Drug form: TAB, Q8H, Dosing Weight 112.727, kg, Start date: 06/13/16 18:00:00 IMMUNOLOGY SPECIALIST, Duration: 30 day, Stop date: 07/13/16 10:30:00 CDT Levemir, 30 unit, 0.3 mL, Route: SUB-Q, Drug form: SOLN, Daily, Dosing Weight 112.727, kg, Start date: 06/14/16 9:00:00 IMMUNOLOGY SPECIALIST, Duration: 30 day, Stop date: 07/13/16 9:00:00 CDT labetalol, 10 mg, 2 mL, Route: IV, Drug form: INJ, Q3H, Dosing Weight 112.727, kg, PRN Hypertension, Start date: 06/13/16 16:00:00 IMMUNOLOGY SPECIALIST, Duration: 30 day, Stop date: 07/13/16 15:59:00 CDT, Hypertension SBP >180 or DBP >100 methocarbamol, 1,000 mg, 2 tab, Route: PO, Drug form: TAB, Q8H, Dosing Weight 112.727, kg, PRN Muscle Spasms, Start date: 06/13/16 15:19:00 IMMUNOLOGY SPECIALIST, Duration: 30 day, Stop date: 07/13/16 15:18:00 CDT ondansetron, 4 mg, 2 mL, Route: IVP, Drug form: INJ, Q6H, Dosing Weight 112.727, kg, PRN Nausea and Vomiting, Start date: 06/13/16 15:19:00 IMMUNOLOGY SPECIALIST, Duration: 30 day, Stop date: 07/13/16 15:18:00 CDT oxyCODONE 5 mg immediate release, 5 mg, 1 tab, Route: PO, Drug form: TAB, Q4H, Dosing Weight 112.727, kg, PRN Pain Score 4-6, Start date: 06/13/16 15:19:00 IMMUNOLOGY SPECIALIST, Duration: 30 day, Stop date: 07/13/16 15:18:00 CDT oxyCODONE 5 mg immediate release, 10 mg, 2 tab, Route: PO, Drug form: TAB, Q4H, Dosing Weight 112.727, kg, PRN Pain Score 7-10, Start date: 06/13/16 15:19:00 IMMUNOLOGY SPECIALIST, Duration: 30 day, Stop date: 07/13/16 15:18:00 CDT polyethylene glycol 3350, 17 gm, 1 pkt, Route: PO, Drug form: PWDR, Daily, Dosing Weight 112.727, kg, Start date: 06/14/16 9:00:00 IMMUNOLOGY SPECIALIST, Duration: 30 day, Stop date: 07/13/16 9:00:00 CDT senna, 17.2 mg, 2 tab, Route: PO, Drug Form: TAB, Dosing Weight 112.727, kg, Bedtime, Start date: 06/13/16 21:00:00 IMMUNOLOGY SPECIALIST, Duration: 30 day, Stop date: 07/12/16 21:00:00 CDT tramadol, 100 mg, 2 tab, Route: PO, Drug form: TAB, Q6Hnow, Dosing Weight 112.727, kg, Start date: 06/13/16 16:00:00 IMMUNOLOGY SPECIALIST, Duration: 30 day, Stop date: 07/13/16 10:00:00 CDT Up with Assistance Ambulation CDM Acute Pain/Anxiolytic Orders CDM Admission Acute Care Post ED CDM Blood Culture and Lactate Panel Complete Blood Count w/ Diff and Platelet Comprehensive Metabolic Panel Blood Culture Diet Carbohydrate Controlled Isolation Order Intake and Output Lactic Acid Level Magnesium Level Notify MD Notify MD Notify MD Nutrition Consult/Dietitian Consult Phosphorus Level Prothrombin Time and Partial Thromboplastin Time Falls Protocol Resuscitation (Code) Status Vital Signs Prophylaxis DVT PPX: Heparin Disposition Home with home health vs SNF pending medical, surgical and PT/OT clearance. 06/15/2016 [facility] Extracted from:Title: History and Physic al Author: Graciela Marrero MD Date: 05/17/16 Assessment/Plan Mrs. Sol is a 40yo AA woman with PMHx of obesity, anxiety/depression, insomnia, chronic anemia, CKD stage III, HTN, HLD, T2DM poorly controlled, and CHF who presents with acute SOB, pleurisy, and tachycardia found to have elevated D-dimer. Concern for possible PE. 1.SOB (shortness of breath) + tachycardi a + chest pain Pt with recent debilitated state after RLE infection and requirement of fixator device, in addition has not been feeling well and thus has not been eating as well. - Concern for elevated D-Dimer in the se tting of shortness of breath with elevated HR and pleurisy. Given these findings, there is a high probability of PE and thus started on therapeutic heparin infusion with plan for coumadin conversion pending VQscan results also positive. - Unable to obtain CTA given renal funct ion. Cont cardiopulm monitors though plan to move rooms soon. Ordered: Admit/Condition 2.CHF - Congestive heart failure, compensated Cont on statin/BB/ACEi, titration as needed and careful admin of any additional fluids. Given small amount of pulm edema on CXR- will give single IV lasix dose then close monitoring of UOP afterwards. 3.DM (diabetes mellitus) Pt reports glucoses have been better recently with changes in her diet and trying to be more active before. ADA diet, SSI and check on exact basal dose that patient should be getting to restart. - Titration as needed to goal range 80-1 80's - Pt reports nml gastric emptying study in the recent past though still feels full at all times. Strict I/O's and encouraged to take PO fluids at this time to maintain hydration. 4.HTN - Hypertension BP elevated in ED, restart on home meds with titration as needed for better control. 5.CKD (chronic kidney disease), stage III Cr appears at baseline at this time, replete electrolytes as needed and cont strict I/O's - Avoidance of additional nephrotoxins 6.Anxiety/Depression Cont on home zoloft, denies any SI/HI. No need for additional anxiety meds at this time. 7.Insomnia Pt reports getting trazodone and melatonin at home that works well for her. Will cont here. 8.Anemia of chronic disease Last Hgb around prior baseline levels and no reported bleeding, no need for transfusion at this time. Prophylaxis therapeutic heparin infusion Disposition pending evaluation for etiology and likely plan to transition over to coumadin therapy pending VQ Scan results [place] is primary for this patient, please page [phone] with questions. 05/18/2016 [facility] Extracted from:Title: ORS Foot and Ankle Author: Spenser Ag MD Date: 04/01/16 ORS Foot and Ankle Progress Note S: Afebrile, continues to be sleep throughout the day O: Vitals Tmp(F) Pulse BP RR SpO2 FIO2 04/01 08:23 98.2 87 150/87 1 8 97 --- 04/01 03:45 98.0 85 148/88 1 8 95 --- 03/31 23:49 98.2 82 127/83 1 8 95 --- 03/31 19:46 98.5 89 130/70 1 8 95 --- 03/31 16:30 98.8 85 125/87 1 8 98 --- 24 Hr Tmax: 98.8F (37.11c) at 03/31 16:3 0 Vital Signs are the last 5 in the past 48 hours. Exam: - Gen - Cooperative - Resp - nonlabored RLE: Swollen and edematous. Small draining <1cm wound still present. Draining serous fluid only, no exuate or errythema. Unchanged from prior exam. Compartments s/c Foot is WWP and there is BCR over the toes A/P: 40F with R foot Charcot arthropathy and cellulitis and osteomyelitis - Pt was septic over the weekend, but sainz d significant diarrheal illness and respiratory difficulties. The R foot continues to slowly improve, so does not appear to the source of infection at this time. We will continue to monitor it closely. - Will continue with plan for limb chuy ge at this time - Ok to d/c home from ORS persective, f/ u with Dr. Jed Fernandez in 1 week - Home abx per primary team Spenser Ag M.D. (Brad) Orthopaedic Surgery PGY-2 Extracted from:Title: [place] ID Consult Author: Aaliyah Prescott MD Date: 03/26/16 Extracted from:Title: Hospitalist History and Physical Author: Yenny Cornejo DO Date: 03/15/16 Assessment/Plan 40 year old female 1.Severe Sepsis: - secondary to osteomyelitis - blood cultures pending - IVF cautiously. Patient has CHF. - Start with Vancomycin 1725mg x1. Pharm acy for vancomycin dosing. - Elevated CRP/Sed rate - Febrile, tachycardia, leukocytosis wit h bandemia 2. Osteomyelitis of the right foot - Elevated ESR and CRP. - ORS following, OR on 03/15 for removal of hardware. - NWB RLE - PT/OT - NPO 3. Acute hyperglycemia with history of D M: - Continue with levemir 30units Q HS - Blood glucose check with ISS coverage - Gabapentin for diabetic neuropathy 4. Acute on Chronic kidney injury - Cr. is 3.10 (Baseline Cr 1.40) - Continue with IVF. - Monitor BMP - If Cr does not improve, please obtain urine studies - Acute injury likely secondary to sepsi s. - Hold lasix and avoid nephrotoxins 5. History of HTN: - continue with amlodipine 6. History of CHF: - compensated. - Hold Lasix secondary to BECKI on CKD - continue with coreg - Please be cautious of amount of IVF gi johnson. 7. Hypomagnesemia - Replete Magnesium 8. HLD: - ASA, statin [facility] hospitalist is primary. Please call Dr. Marrero for additional questions [phone]. Orders: acetaminophen, 650 mg, 2 tab, Route: PO, Drug form: TAB, Q4H, Dosing Weight 115, kg, PRN Pain 1-3/Temp > 100.4 F, Start date: 03/15/16 1:37:00 IMMUNOLOGY SPECIALIST, Duration: 30 day, Stop date: 04/14/16 1:36:00 IMMUNOLOGY SPECIALIST [place] 5/325 oral tablet, 2 tab, Route: PO, Drug Form: TAB, Dosing Weight 115, kg, Q6H, PRN Pain Score 1-3, Start date: 03/15/16 1:45:00 IMMUNOLOGY SPECIALIST, Duration: 30 day, Stop date: 04/14/16 1:44:00 IMMUNOLOGY SPECIALIST amLODIPine, 10 mg, 1 tab, Route: PO, Drug form: TAB, Daily, Dosing Weight 115, kg, Start date: 03/15/16 9:00:00 IMMUNOLOGY SPECIALIST, Duration: 30 day, Stop date: 04/13/16 9:00:00 IMMUNOLOGY SPECIALIST aspirin 81 mg tablet, enteric coated, 81 mg, 1 tab, Route: PO, Drug form: ECTAB, Daily, Dosing Weight 115, kg, Start date: 03/15/16 9:00:00 IMMUNOLOGY SPECIALIST, Duration: 30 day, Stop date: 04/13/16 9:00:00 IMMUNOLOGY SPECIALIST atorvastatin, 40 mg, 1 tab, Route: PO, Drug form: TAB, Bedtime, Dosing Weight 115, kg, Start date: 03/15/16 21:00:00 IMMUNOLOGY SPECIALIST, Duration: 30 day, Stop date: 04/13/16 21:00:00 IMMUNOLOGY SPECIALIST carvedilol, 25 mg, 1 tab, Route: PO, Drug form: TAB, BID, Dosing Weight 115, kg, Start date: 03/15/16 9:00:00 IMMUNOLOGY SPECIALIST, Duration: 30 day, Stop date: 04/13/16 17:00:00 IMMUNOLOGY SPECIALIST docusate, 100 mg, 1 cap, Route: PO, Drug form: CAP, BID, Dosing Weight 115, kg, PRN Constipation, Start date: 03/15/16 1:37:00 IMMUNOLOGY SPECIALIST, Duration: 30 day, Stop date: 04/14/16 1:36:00 IMMUNOLOGY SPECIALIST ferrous sulfate, 325 mg, 1 tab, Route: PO, Drug form: TAB, BID, Dosing Weight 115, kg, Start date: 03/15/16 9:00:00 IMMUNOLOGY SPECIALIST, Duration: 30 day, Stop date: 04/13/16 17:00:00 IMMUNOLOGY SPECIALIST gabapentin 300 mg oral capsule, 300 mg, 1 cap, Route: PO, Drug form: CAP, Q12H, Dosing Weight 115, kg, Start date: 03/15/16 9:00:00 IMMUNOLOGY SPECIALIST, Duration: 30 day, Stop date: 04/13/16 21:00:00 IMMUNOLOGY SPECIALIST heparin 5000 units/mL injectable solution, 5,000 unit, 1 mL, Route: SUB-Q, Drug form: INJ, Q8H, Dosing Weight 115, kg, Start date: 03/15/16 8:00:00 IMMUNOLOGY SPECIALIST, Duration: 30 day, Stop date: 04/14/16 0:00:00 IMMUNOLOGY SPECIALIST Levemir, 30 unit, Route: SUB-Q, Drug form: SOLN, Bedtime, Dosing Weight 115, kg, Start date: 03/15/16 21:00:00 IMMUNOLOGY SPECIALIST, Duration: 30 day, Stop date: 04/13/16 21:00:00 IMMUNOLOGY SPECIALIST melatonin, 3 mg, 1 tab, Route: PO, Drug form: TAB, Bedtime, Dosing Weight 115, kg, PRN Sleep, Start date: 03/15/16 1:46:00 IMMUNOLOGY SPECIALIST, Duration: 30 day, Stop date: 04/14/16 1:45:00 IMMUNOLOGY SPECIALIST ondansetron, 4 mg, 2 mL, Route: IVP, Drug form: INJ, Q6H, Dosing Weight 115, kg, PRN Nausea and Vomiting, Start date: 03/15/16 1:37:00 IMMUNOLOGY SPECIALIST, Duration: 30 day, Stop date: 04/14/16 1:36:00 IMMUNOLOGY SPECIALIST sertraline, 50 mg, 1 tab, Route: PO, Drug form: TAB, Daily, Dosing Weight 115, kg, Start date: 03/15/16 9:00:00 IMMUNOLOGY SPECIALIST, Duration: 30 day, Stop date: 04/13/16 9:00:00 IMMUNOLOGY SPECIALIST vancomycin, 1,725 mg, Route: IV, ONCE, Dosing Weight 115, kg, Start date: 03/15/16 1:44:00 IMMUNOLOGY SPECIALIST, Stop date: 03/15/16 1:44:00 IMMUNOLOGY SPECIALIST Ambulation Basic Metabolic Panel Bedrest Cardiac Monitoring (e.g. ED, PACU, IMU, ICU) CDM Admission Acute Care Post ED CDM Sepsis Add On Complete Blood Count w/ Diff and Platelet Diet Carbohydrate Controlled Diet NPO Lab Instructions to Nurse Patient Education AC4 Provide Education AC4 Prothrombin Time and Partial Thromboplastin Time Resuscitation (Code) Status Vital Signs Prophylaxis Heparin SQ Disposition When medically stable and pending ORS surgery/ PT/OT clearance 04/02/2016 [facility] Extracted from:Title: Medicine Team A In tern Discharge Summary Author: Cielo Ryan MD Date: 02/25/16 Medicine Team A [employer] Discharge Summary Admission/Discharge Dates: 02/19/2016 - 02/25/16 Admission/Discharge Diagnoses: pulmonary edema, BECKI/ BECKI on CKD, Service: Medicine Team A Referring Physician/Dept: Dr. Harvey Consults: orthopedics Procedures: removal of external fixator device History and Hospital Course: Ms. Sol is a 40 year old with CHF (EF 55-60% on 02/19/16), T2DM (ha1c 7.4) with neuropathy and nephropathy, HTN, osteomyelitis of RLE (s/p I&D of abscess x2 with wound vac placement and external fixation on November 04), depression/anxiety admitted to the ICU on for hypertensive urgency and pulmonary edema requiring bipap. Patient states that she initially presented with back pain, nausea, vomiting and low grade fever for several days. She had about 6 episodes on nonbloody, bilious vomiting on the night of 02/18 and became increasingly short of breath which prompted her to call the ambulance. In the ED, her blood pressure was elevated to the SBP 220s and chest xray showed pulmonary edema (Of note, patient ran out of her home lasix about 1 week prior to admission). There was a concern for DVT/PE given her history of surgery and immobility since October and she was empirically started on a heparin drip since a CTA was not possible due to BECKI. She was started on a nitro drip and bipap. In the ICU, she was transitioned to PO antihypertensives and weaned from BiPap and was saturating well on room air. A LE U/S showed no DVT and since the clinical suspicion for PE was low, the heparin drip was discontinued. Patient was diuresed with improvement in dyspnea. After transferring to the floor, the patient complained of back pain. Plain films showed osteitis condensans ilii. Additionally, ortho took her to the OR on 02/22 for removal of the external fixator with the patient placed in a soft splint. During the hospital course, her BECKI has been monitored. Baseline creatinine appears to be ~1.5. On admission, her creatinine was 1.9 and uptrended to maximum of 2.8. Her lasix was held in the setting of BECKI and Bactrim was discontinued (was on prophylaxis for surgery) with stable of creatinine to 2.8. on discharge with adequate urine output. Patient will need to follow up with her PCP to monitor her renal function as well as followup with ortho for her wound healing. Physical Exam: Gen: AAOx3, NAD HEENT: PERRL, EOMI, oropharynx clear no erythema or exudates Neck: Supple, trachea midline, no LAD Heart: regular rate and rhythm, no murmurs appreciated, pulses + and equal in all extremities Lungs: Clear to auscultation bilaterally, no wheezes or crackles Abd: soft, non-tender to palpation, bowel sounds present, no guarding or rigidity Neuro: +tenderness of lumbar region with paraspinal muscle tenderness. CN II- XII grossly intact, sensation grossly intact to light touch MSK: +soft tissue splint in place on right lower extremity otherwise no muscle atrophy, no joint redness, swelling or tenderness Ext: +trace edema. no clubbing. Discharge Diet: ADA Discharge Condition: stable Disposition: to home with family help Medications: amLODIPine 10 mg PO Daily aspirin 81 mg PO Daily atorvastatin 40 mg PO Bedtime carvedilol 25 mg PO BID docusate-senna 50 mg-8.6 mg oral tablet 2 tab PO BID ferrous sulfate 325 mg PO BID gabapentin 300 mg PO TID NovoLOG FlexPen 5 unit SUB-Q Before Dinner NovoLOG FlexPen 5 unit SUB-Q Before Lunch Levemir 30 unit SUB-Q Daily sertraline 50 mg PO Daily sevelamer 800 mg PO TID-Meals sodium bicarbonate 325 mg PO Daily Instructions: Please take medications as prescribed. Follow up with PCP in 1 week for renal function. Follow up with Dr Fernandez 1 week after discharge. Please call [phone] to confirm apt Follow-up: PCP Ortho (see above) Cielo Ryan MD Internal Medi cine, PGY-1 TEACHING ATTENDING ATTESTATION STATEMENT: I have examined this patient and obtained the history and performed a physical examination. I have evaluated the objective data and determined the assessment and plan. I have seen this patient with Dr. Ryan, medicine resident and discussed in detail. I agree with her summary of the hospital course and discharge plan outlined in the discharge note. Royer Harvey MD Medicine Teaching Service Attending Extracted from:Title: ORS PN Author: Casey Valles MD Date: 02/24/16 ORS Foot and Ankle PN S: Patient overall doing well post-operatively. She states that her pain has slightly worsened overnight. O: AF, VSS Exam: - Gen - A&O x3, cooperative with exam - Resp - nonlabored - CV - regular rate and rhythm -RLE: Splint and dressings intact Diffuse swelling and prior toe amputations noted No sensation in the plantar foot, decreased sensation over the dorsal foot Foot is warm and well perfused A/P: 40F with R charcot foot arthropathy s/p removal of exfix and CRPP R foot, POD 1 Plan: - WBS: NWB RLE - Elevate while in bed - Pain control: per primary - Dressings: keep c/d/i ortho will do fi rst change in clinic - DVT PPx: TEDS/SCDs, chem ppx per prima ry - Bowel Regimen: per primary - PT/OT: consulted, pending clearance - Pending ORS surgeries: None planned - Dispo: Patient is OK to DC from [facility] pending medical and PT clearance and pain control. ORS will continue to follow in house. Plan to f/u with Dr Fernandez 1 week after DC. Please call [phone] to confirm appt. Extracted from:Title: MICU admission history and physical Author: Bishnu Ayoub MD Date: 02/19/16 Impression and Plan 40 year old with CHF, DM, HTN, and osteo myelitis comes in for worsening SOB, n/v, and back pain. problem list: Pulmonary edema Hypertensive emergency CHF concern for PE nausea/vomiting back pain osteomyelitis DM Neuro: #no acute issues CV: #Hypertensive emergency - Currently on Nitro Drip - wean drip and transition to oral antih ypertensives. start home doses. - transition to cardene drip from nitro. #CHF - TTE shows normal EF - BNP elevated - continue to monitor. Trend trops. - Lasix 40 once. then start 20 BID. Pulm: #?PE: - has had DVT studies in the past that a re negative. pulmonary edema suggests otherwise. ECHO shows no right heart strain. Will get LE DVT study. - for now continue on heparin gtt #Pulmonary edema - This is actually improved from previou s x ray. - lasix 40 given. follow UOP - currently not requiring any supplement al oxygen - continue to monitor GI: #Nausea and vomiting - Started after the back pain. picture i s concerning for renal colic. Will get retroperitoneal US. - zofran PRN. Currently not complaining of any nausea. -Carb controlled diet Renal: #Renal colic - UA shows moderate blood - retroperitoneal US ordered. Will asses s the need for CT non con after. #BECKI on CKD -current cr is 1.9. baseline around 1.5. possibly due to hypertensive end organ damage. -Trend. Retroperitoneal US. Endo: #DM - basal insulin and SSI ID: #chronic osteomyelitis - she has plan to get ex fix hardware re moved next week. Has been started on bactrim 1 week ago. - continue bactim as per ortho suggestio n #Possible systemic infection: -nothing focal on CXR - UA does not look infected - Check procal. blood cultures - cover if she becomes febrile Prophylaxis: hold subQ while on heparin drip. Lines: - Right femoral central line - peripheral Bishnu Kugielsky, MD PGY1 02/26/2016 [facility] Extracted from:Title: Hospitalist Loue ss Note Author: Darrion Davis MD Date: 11/27/15 Assessment/Plan 1.Osteomyelitis with SSNA culture, continue cefazolin day 20 WVac to -125mmHg continuous. Record output. WVac to be changed by nursing M-W-F. Pin site care, next change 11/26 NWB RLE follow up with Dr. Fernandez in 2 weeks 2.Hypertension mostly controlled, continue coreg, amlodipine and lasix 3.Type II diabetes mellitus continue levemir units and aspart units AC 4.History of CHF (congestive heart failu re) no evidence of exacerbation, continue coreg, and asa/statin holding lasix give becki c dehydration 5.Possible CKD FENA suggestive of prerenal cr improved BECKI resolving c IVFs 6.Anxiety continue sertraline, prn benzo 7.Anemia due to chronic disease, monitor, no indication for transfusion 8.Sepsis resolved 9.Acute pain lidocaine gabapentin, prn norco, robaxin prn IV for breakthrough only Orders: hydrocortisone topical 1% cream, 1 appl, Route: TOP, BID, Drug form: CRM, PRN Rash, Start date: 11/26/15 12:14:00 CDT, Duration: 30 day, Stop date: 12/26/15 12:13:00 CDT Prophylaxis heparin Disposition pending TCU placement Follow Up Appointment Follow up with Dr. Fernandez in 2 weeks Call [phone] for appointment. Follow up with Dr. Holley Primary care physician Extracted from:Title: Ortho Foot and ankle pre-op note Author: Angelo Birmingham MD Date: 11/05/15 Ortho Foot and Ankle Pre-op Note Date of Surgery: 11/05/2015 - Irrigation and debridement Right foot abscess, possible wound vac, possible ex-fix placement Right foot Diagnosis: Right foot abscess, osteomyelitis. Right Charcot foot Risks, benefits, and alternatives of surgical treatment were discussed with the patient. All questions addressed to patients satisfaction and informed consent reviewed. Consent on chart. Cleared for OR per Anesthesia and Hospitalist team. Right lower extremity surgical site verified and marked. Will proceed to the OR with Dr Fernandez 11/04 for Irrigation and debridement Right foot abscess, possible wound vac, possible ex-fix placement Right foot Angelo Birmingham M.D. [facility] #[id number] p [id number] PGY-5 Orthopaedic Surgery Extracted from:Title: Hospitalist History and Physical Author: Darrion Wolf DO Date: 11/02/15 Assessment/Plan Patient is a 40 year old AA female with PMH HTN, DM, CHF and neuropathy who presented to ED 2/2 R foot / leg pain for 2 weeks. 1.Sepsis As evidenced by leukocytosis / tachycardia / fever. Blood cultures pending @ this time. Continue vanc / cefepime. Low suspicion for nec fasc so will not continue clinda. Add flagyl for anaerobic coverage. 2.Osteomyelitis ESR /CRP elevated. Check MRI R foot.Givensepsis, will continue antibiotics. Ideally wouldbenefit from biopsy, however, may not be feasible. F/U blood cultures. Anticipate need for PICC and empiric treatment as patient wishes to avoid surgery. ortho following. 3.Hypertension Hold antihypertensives in light of sepsis. Monitor BP and add medications if needed 4.Type II diabetes mellitus add ssi. monitor fsbg and adjust meds as needed. aim for tight glucose control Ordered: Levemir, 30 unit, 0.3 mL, Route: SUB-Q, Drug form: INJ, Daily, Dosing Weight 117.273, kg, Start date: 11/02/15 9:00:00 CDT, Duration: 30 day, Stop date: 12/01/15 9:00:00 CDT 5.History of CHF (congestive heart failure) unknown EF. Hold BB as above. add statin. no chandler/arb 2/2 possible BECKI. Ordered: aspirin 81 mg tablet, enteric coated, 81 mg, 1 tab, Route: PO, Drug form: ECTAB, Daily, Dosing Weight 117.273, kg, Start date: 11/02/15 9:00:00 CDT, Duration: 30 day, Stop date: 12/01/15 9:00:00 CDT 6.Possible CKD NS @ 100 cc / hr. repeat BMP in AM. Orders: acetaminophen, 650 mg, 2 tab, Route: PO, Drug form: TAB, Q4H, Dosing Weight 117.273, kg, PRN Pain 1-3/Temp > 100.4 F, Start date: 11/02/15 4:08:00 CDT, Duration: 30 day, Stop date: 12/02/15 4:07:00 CDT acetaminophen, 325 mg, 1 tab, Route: PO, Drug form: TAB, Q4H, Dosing Weight 117.273, kg, PRN Pain Score 4-6, Start date: 11/02/15 4:08:00 CDT, Duration: 30 day, Stop date: 12/02/15 4:07:00 CDT acetaminophen-hydrocodone 325 mg-5 mg oral tablet, 1 tab, Route: PO, Drug Form: TAB, Dosing Weight 117.273, kg, Q4H, PRN Pain Score 4-6, Start date: 11/02/15 4:08:00 CDT, Duration: 30 day, Stop date: 12/02/15 4:07:00 CDT acetaminophen-hydrocodone 325 mg-5 mg oral tablet, 2 tab, Route: PO, Drug Form: TAB, Dosing Weight 117.273, kg, Q4H, PRN Pain Score 7-10, Start date: 11/02/15 4:08:00 CDT, Duration: 30 day, Stop date: 12/02/15 4:07:00 CDT cefepime, 1 gm, Route: IVPB, Drug form: INJ, [id number], Dosing Weight 117.273, kg, (CrCl 30 - 49 ml/min), Start date: 11/02/15 5:00:00 CDT, Duration: 30 day, Stop date: 12/01/15 17:00:00 CDT Dextrose 50% Syringe, 25 gm, 50 mL, Route: IVP, Drug Form: INJ, Dosing Weight 117.273, kg, PRN, PRN Blood Glucose Results, Start date: 11/02/15 4:10:00 CDT, Duration: 30 day, Stop date: 12/02/15 4:09:00 CDT Dextrose 50% Syringe, 12.5 gm, 25 mL, Route: IVP, Drug Form: INJ, Dosing Weight 117.273, kg, PRN, PRN Blood Glucose Results, Start date: 11/02/15 4:10:00 CDT, Duration: 30 day, Stop date: 12/02/15 4:09:00 CDT docusate, 100 mg, 1 cap, Route: PO, Drug form: CAP, BID, Dosing Weight 117.273, kg, Start date: 11/02/15 9:00:00 CDT, Duration: 30 day, Stop date: 12/01/15 17:00:00 CDT glucagon, 1 mg, Route: IM, Drug form: PDR/INJ, PRN, Dosing Weight 117.273, kg, PRN Blood Glucose Results, Start date: 11/02/15 4:10:00 CDT, Duration: 30 day, Stop date: 12/02/15 4:09:00 CDT insulin aspart, 1 unit, 0.01 mL, Route: SUB-Q, Drug form: SOLN, TID-Before Meals, Dosing Weight 117.273, kg, PRN Blood Glucose Results, Start date: 11/02/15 4:10:00 CDT, Duration: 30 day, Stop date: 12/02/15 4:09:00 CDT insulin aspart, 4 unit, 0.04 mL, Route: SUB-Q, Drug form: SOLN, TID-Before Meals, Dosing Weight 117.273, kg, PRN Blood Glucose Results, Start date: 11/02/15 4:10:00 CDT, Duration: 30 day, Stop date: 12/02/15 4:09:00 CDT insulin aspart, 2 unit, 0.02 mL, Route: SUB-Q, Drug form: SOLN, TID-Before Meals, Dosing Weight 117.273, kg, PRN Blood Glucose Results, Start date: 11/02/15 4:10:00 CDT, Duration: 30 day, Stop date: 12/02/15 4:09:00 CDT insulin aspart, 5 unit, 0.05 mL, Route: SUB-Q, Drug form: SOLN, TID-Before Meals, Dosing Weight 117.273, kg, PRN Blood Glucose Results, Start date: 11/02/15 4:10:00 CDT, Duration: 30 day, Stop date: 12/02/15 4:09:00 CDT insulin aspart, 3 unit, 0.03 mL, Route: SUB-Q, Drug form: SOLN, TID-Before Meals, Dosing Weight 117.273, kg, PRN Blood Glucose Results, Start date: 11/02/15 4:10:00 CDT, Duration: 30 day, Stop date: 12/02/15 4:09:00 CDT Flagyl, 500 mg, 100 mL, Route: IVPB, Drug form: INJ, [id number], Dosing Weight 117.273, kg, Start date: 11/02/15 5:00:00 CDT, Duration: 30 day, Stop date: 12/01/15 21:00:00 CDT ondansetron, 4 mg, 2 mL, Route: IVP, Drug form: INJ, Q6H, Dosing Weight 117.273, kg, PRN Nausea and Vomiting, Start date: 11/02/15 4:08:00 CDT, Duration: 30 day, Stop date: 12/02/15 4:07:00 CDT Bedding Order Ambulation Up with Assistance Basic Metabolic Panel CDM Admission Acute Care Post ED CDM Aspart (Novolog) for Starting Correction Doses CDM Insulin Sub-Q Orders for patients on Oral Nutrition Complete Blood Count w/ Diff and Platelet Diet Carbohydrate Controlled MRI Foot wo contrast Hypoglycemia Management Hypoglycemia Management Intake and Output Notify MD Notify MD Notify MD Notify MD Provide Education AC4 Patient Education AC4 Vancomycin Pharmacy Dosing Point of Care Blood Glucose AC4 Point of Care Blood Glucose AC4 Pulse Oximetry Spot Check by Nurse Resuscitation (Code) Status Vital Signs Weigh patient AC4 Prophylaxis heparin Disposition home following clinical improvement anticipated los is > 3 [place] primary. please page Dr. Peacock with any further questions 11/27/2015 [facility] Plan of Care No Data Provided for This Section Social History Social History Date Source Social History TypeResponse Alcohol Past, Type Wine. Frequency: 1-2 times per month. 12 Drinks/Episode average. 12.00 Drinks/Episode maximum. Last use: July. Started age 15 Years. Previous treatment: None. Alcohol use interferes with work or home: No. Drinks more than intended: No. Others hurt by drinking: No. Ready to change: No. Household alcohol concerns: No.1 Exercise Exercise duration: 30. Exercise frequency: 1-2 times/week. Self assessment: Good condition. Exercise type: Walking. Sexual Sexually active: No. Substance Abuse Use: None. Smoking Status Never smoker; Exposure to Tobacco Smoke None; Cigarette Smoking Last 365 Days No; Reg Smoking Cessation Counseling No entered on: 08/17/19 1pt denies current alcohol use 04/13/2017 [facility] Social History TypeResponse Alcohol Past, Type Wine. Frequency: 1-2 times per month. 12 Drinks/Episode average. 12.00 Drinks/Episode maximum. Last use: July. Started age 15 Years. Previous treatment: None. Alcohol use interferes with work or home: No. Drinks more than intended: No. Others hurt by drinking: No. Ready to change: No. Household alcohol concerns: No.1 Exercise Exercise duration: 30. Exercise frequency: 1-2 times/week. Self assessment: Good condition. Exercise type: Walking. Sexual Sexually active: No. Substance Abuse Use: None. Smoking Status Never smoker; Exposure to Tobacco Smoke None; Cigarette Smoking Last 365 Days No; Reg Smoking Cessation Counseling No entered on: 08/17/19 1pt denies current alcohol use 04/13/2017 [facility] Social History TypeResponse Substance Abuse Use: None. Sexual Sexually active: No. Exercise Exercise duration: 30. Exercise frequency: 1-2 times/week. Self assessment: Good condition. Exercise type: Walking. Alcohol Past, Type Wine. Frequency: 1-2 times per month. 12 Drinks/Episode average. 12.00 Drinks/Episode maximum. Last use: July. Started age 15 Years. Previous treatment: None. Alcohol use interferes with work or home: No. Drinks more than intended: No. Others hurt by drinking: No. Ready to change: No. Household alcohol concerns: No.1 Smoking Status Never smoker; Ready to change: No; Concerns about tobacco use in household: No; Exposure to Tobacco Smoke None; Cigarette Smoking Last 365 Days No; Reg Smoking Cessation Counseling No entered on: 11/05/17 1pt denies current alcohol use 01/14/2017 [facility] Social History TypeResponse Substance Abuse Use: None. Sexual Sexually active: No. Exercise Exercise duration: 30. Exercise frequency: 1-2 times/week. Self assessment: Good condition. Exercise type: Walking. Alcohol Past, Type Wine. Frequency: 1-2 times per month. 12 Drinks/Episode average. 12.00 Drinks/Episode maximum. Last use: July. Started age 15 Years. Previous treatment: None. Alcohol use interferes with work or home: No. Drinks more than intended: No. Others hurt by drinking: No. Ready to change: No. Household alcohol concerns: No.1 Smoking Status Never smoker; Type: Cigarettes; Previous treatment: None; Exposure to Tobacco Smoke None; Cigarette Smoking Last 365 Days No; Reg Smoking Cessation Counseling No entered on: 06/17/18 1pt denies current alcohol use 01/14/2017 [facility] Family History No Data Provided for This Section Advance Directives No Data Provided for This Section Functional Status No Data Provided for This Section
--- OUTSIDE RECORDS SUMMARY | 2019-09-10 20:10 | XMS REPORT | Summary of Care ---
Author Author [facility] Address Unknown Phone Unavailable Encounter [facility] [place](SANGITA) [phone] Date(s): 12/13/16 - 12/15/16 [facility] [id number] [place], [place] [address] [phone] Discharge Disposition: Home or Self Care Attending Physician: Lolis Sharp MD Admitting Physician: Lolis Sharp MD Vital Signs 1 2 3 Most recent to oldest [Reference Range]: 170.18 cm (12/13/16 8:30 PM) 162.56 cm (12/13/16 4:52 PM) Height 98.0 DegF (12/15/16 5:14 PM) 98.2 DegF (12/15/16 8:00 AM) 98.0 DegF (12/15/16 4:23 AM) Temperature Oral [96.4-99.1 DegF] 181/114 mmHg *HI* (12/15/16 5:15 PM) 192/124 mmHg *HI* (12/15/16 5:14 PM) 138/83 mmHg (12/15/16 8:00 AM) Blood Pressure [90-140/60-90 mmHg] 18 BRMIN (12/15/16 5:14 PM) 18 BRMIN (12/15/16 8:00 AM) 18 BRMIN (12/15/16 4:23 AM) Respiratory Rate [14-20 BRMIN] 94 bpm (12/15/16 5:15 PM) 93 bpm (12/15/16 5:14 PM) 89 bpm (12/15/16 8:00 AM) Peripheral Pulse Rate [60-100 bpm] 103.182 kg (12/13/16 8:30 PM) 100 kg (12/13/16 4:52 PM) Weight 35.63 m2 (12/13/16 8:30 PM) 37.84 m2 (12/13/16 4:52 PM) Body Mass Index Problem List Condition Effective Dates Status Health Status Informan t Anxiety(Confirmed) Resolved Chronic Resolved depression(Confirmed ) CKD (chronic kidney 09/01/15 Resolved disease)(Confirmed) Diabetes Resolved mellitus(Confirmed) DM (diabetes 08/31/09 - 09/07/16 Resolved mellitus)(Confirmed) Escherichia 12/06/16 Active coli(Confirmed)1, 2, 3, 4 Biliary < 08/16/16 Resolved colic(Confirmed) Below knee Active amputation status(Confirmed)5 HTN - 08/31/09 - 09/07/16 Resolved Hypertension(Confirm ed) HLD Resolved (hyperlipidemia)(Con firmed) Klebsiella(Confirmed 10/11/16 Active )6, 7, 8 Left heart failure Active with preserved LV function(Confirmed) Metabolic Active acidosis(Confirmed) MRSA(Confirmed)9, 02/23/16 Active 10, 11 MRSA(Confirmed)12, 11/29/13 Active 13 Pancreatitis(Confirm Resolved ed) 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 5Right sided BKA 6urine - 10/11/16 (ESBL) 7Blood, 03/29/2016 8Problem added by Discern Expert. 9right foot aspirate - 02/23/16 10nares - 02/19/16 11Problem added by Discern Expert. 12Left buttock abscess, 11/29/2013 13Problem added by Discern Expert. 14urine - 12/06/16 15Problem added by Discern Expert. Allergies, Adverse Reactions, Alerts Substance Reaction Severity Status NKDA Active Medications acetaminophen 650 mg, 2 tab, Route: PO, Drug form: TAB, Q4H, Dosing Weight 100, kg, PRN Pain 1 -3/Temp > 100.4 F, Start date: 12/13/16 19:51:00 CDT, Duration: 30 day, Stop date: 01/12/17 19:50:00 CDT Notes: Do not exceed 4 gm/day. (Same as: Tylenol) Start Date: 12/13/16 Stop Date: 12/15/16 Status: Discontinued carvedilol 25 mg, 2 tab, Route: PO, Drug form: TAB, Q12H, Dosing Weight 100, kg, Start date : 12/13/16 21:00:00 CDT, Duration: 30 day, Stop date: 01/12/17 9:00:00 CDT Notes: Give with food. (Same As: Coreg) Start Date: 12/13/16 Stop Date: 12/15/16 Status: Discontinued cloNIDine 0.1 mg, 1 tab, Route: PO, Drug form: TAB, Q6H, Dosing Weight 100, kg, PRN Hypert ension, Start date: 12/13/16 19:54:00 CDT, Duration: 30 day, Stop date: 01/12/17 19:53:00 CDT Notes: (Same As: Catapres) Start Date: 12/13/16 Stop Date: 12/15/16 Status: Discontinued Dextrose 50% Syringe 25 gm, 50 mL, Route: IVP, Drug Form: INJ, Dosing Weight 100, kg, PRN, PRN Blood Glucose Results, Start date: 12/13/16 19:49:00 CDT, Duration: 30 day, Stop date: 01/12/17 19:48:00 CDT Start Date: 12/13/16 Stop Date: 12/15/16 Status: Discontinued Dextrose 50% Syringe 12.5 gm, 25 mL, Route: IVP, Drug Form: INJ, Dosing Weight 100, kg, PRN, PRN Bloo d Glucose Results, Start date: 12/13/16 19:49:00 CDT, Duration: 30 day, Stop harish e: 01/12/17 19:48:00 CDT Start Date: 12/13/16 Stop Date: 12/15/16 Status: Discontinued Dilaudid 2 mg, Route: IVP, ONCE, Dosing Weight 100, kg, Priority: STAT, Start date: 12/13 18:19:00 CDT, Stop date: 12/13/16 18:19:00 CDT Start Date: 12/13/16 Stop Date: 12/13/16 Status: Completed glucagon 1 mg, Route: IM, Drug form: PDR/INJ, PRN, Dosing Weight 100, kg, PRN Blood Gluco se Results, Start date: 12/13/16 19:49:00 CDT, Duration: 30 day, Stop date: 12/24 05/10 19:48:00 CDT Start Date: 12/13/16 Stop Date: 12/15/16 Status: Discontinued heparin 5,000 unit, 1 mL, Route: SUB-Q, Drug form: INJ, Q12H, Dosing Weight 100, kg, Sta rt date: 12/13/16 21:00:00 CDT, Duration: 30 day, Stop date: 01/12/17 9:00:00 CD T Notes: porcine heparin Start Date: 12/13/16 Stop Date: 12/15/16 Status: Discontinued hydrALAZINE 25 mg, 1 tab, Route: PO, Drug form: TAB, Q8H, Dosing Weight 100, kg, Start date: 12/14/16 0:00:00 CDT, Duration: 30 day, Stop date: 01/12/17 16:00:00 CDT Notes: (Same as: Apresoline) May interfere w/enteral feedings Take With Food. Start Date: 12/14/16 Stop Date: 12/15/16 Status: Discontinued hydrALAZINE 10 mg, 0.5 mL, Route: IVP, Drug form: INJ, Q4H, Dosing Weight 100, kg, PRN Hyper tension, Start date: 12/13/16 19:55:00 CDT, Duration: 30 day, Stop date: 7 19:54:00 CDT Notes: (Same as: Apresoline)Push over 5 minutes Start Date: 12/13/16 Stop Date: 12/15/16 Status: Discontinued hydrALAZINE 20 mg, Route: IVP, ONCE, Dosing Weight 99, kg, Priority: STAT, Start date: 12/13 16:56:00 CDT, Stop date: 12/13/16 16:56:00 CDT Start Date: 12/13/16 Stop Date: 12/13/16 Status: Completed hydromorphone 1 mg, Route: IVP, ONCE, Dosing Weight 99, kg, Priority: STAT, Start date: 16:56:00 CDT, Stop date: 12/13/16 16:56:00 CDT Start Date: 12/13/16 Stop Date: 12/13/16 Status: Completed insulin glargine 10 unit, 0.1 mL, Route: SUB-Q, Drug form: SOLN, Daily, Start date: 12/14/16 9:00 :00 CDT, Duration: 30 day, Stop date: 01/12/17 9:00:00 CDT Notes: (Same as: Lanslimus)Do not hold insulin without contacting prescriberWASTE: F/P - Black; E - Municipal Trash Bin "single patient use only" Start Date: 12/14/16 Stop Date: 12/15/16 Status: Discontinued insulin glargine 10 unit, Route: SUB-Q, Daily, Dosing Weight 100, kg, Start date: 12/14/16 9:00:0 0 CDT, Duration: 30 day, Stop date: 01/12/17 9:00:00 CDT Start Date: 12/14/16 Stop Date: 12/13/16 Status: Deleted insulin lispro 2 unit, 0.02 mL, Route: SUB-Q, Drug form: SOLN, Bedtime, Dosing Weight 100, kg, PRN Blood Glucose Results, Start date: 12/13/16 19:49:00 CDT, Duration: 30 day, Stop date: 01/12/17 19:48:00 CDT Notes: Roll in palms of hands gently; Do not shake `vigorously. (Same as: Matilde delarosa )"Single Patient Use Only "WASTE: F/P - Black; E - Municipal Trash Bin Stabl e for 28 days at room temperature.Expires in days from Date Start Date: 12/13/16 Stop Date: 12/15/16 Status: Discontinued insulin lispro 1 unit, 0.01 mL, Route: SUB-Q, Drug form: SOLN, Bedtime, Dosing Weight 100, kg, PRN Blood Glucose Results, Start date: 12/13/16 19:49:00 CDT, Duration: 30 day, Stop date: 01/12/17 19:48:00 CDT Notes: Roll in palms of hands gently; Do not shake `vigorously. (Same as: Matiled og )"Single Patient Use Only "WASTE: F/P - Black; E - Municipal Trash Bin Stabl e for 28 days at room temperature.Expires in days from Date Start Date: 12/13/16 Stop Date: 12/15/16 Status: Discontinued insulin lispro 4 unit, 0.04 mL, Route: SUB-Q, Drug form: SOLN, Bedtime, Dosing Weight 100, kg, PRN Blood Glucose Results, Start date: 12/13/16 19:49:00 CDT, Duration: 30 day, Stop date: 01/12/17 19:48:00 CDT Notes: Roll in palms of hands gently; Do not shake `vigorously. (Same as: Matilde og )"Single Patient Use Only "WASTE: F/P - Black; E - Municipal Trash Bin Stabl e for 28 days at room temperature.Expires in days from Date Start Date: 12/13/16 Stop Date: 12/15/16 Status: Discontinued insulin lispro 3 unit, 0.03 mL, Route: SUB-Q, Drug form: SOLN, Bedtime, Dosing Weight 100, kg, PRN Blood Glucose Results, Start date: 12/13/16 19:49:00 CDT, Duration: 30 day, Stop date: 01/12/17 19:48:00 CDT Notes: Roll in palms of hands gently; Do not shake `vigorously. (Same as: Matilde og )"Single Patient Use Only "WASTE: F/P - Black; E - Municipal Trash Bin Stabl e for 28 days at room temperature.Expires in days from Date Start Date: 12/13/16 Stop Date: 12/15/16 Status: Discontinued insulin lispro 10 unit, 0.1 mL, Route: SUB-Q, Drug form: SOLN, TID-Before Meals, Dosing Weight 100, kg, PRN Blood Glucose Results, Start date: 12/13/16 19:49:00 CDT, Duration: 30 day, Stop date: 01/12/17 19:48:00 CDT Notes: Roll in palms of hands gently; Do not shake `vigorously. (Same as: Humal og )"Single Patient Use Only "WASTE: F/P - Black; E - Municipal Trash Bin Stabl e for 28 days at room temperature.Expires in days from Date Start Date: 12/13/16 Stop Date: 12/15/16 Status: Discontinued insulin lispro 6 unit, 0.06 mL, Route: SUB-Q, Drug form: SOLN, TID-Before Meals, Dosing Weight 100, kg, PRN Blood Glucose Results, Start date: 12/13/16 19:49:00 CDT, Duration: 30 day, Stop date: 01/12/17 19:48:00 CDT Notes: Roll in palms of hands gently; Do not shake `vigorously. (Same as: Humal og )"Single Patient Use Only "WASTE: F/P - Black; E - Municipal Trash Bin Stabl e for 28 days at room temperature.Expires in days from Date Start Date: 12/13/16 Stop Date: 12/15/16 Status: Discontinued insulin lispro 4 unit, 0.04 mL, Route: SUB-Q, Drug form: SOLN, TID-Before Meals, Dosing Weight 100, kg, PRN Blood Glucose Results, Start date: 12/13/16 19:49:00 CDT, Duration: 30 day, Stop date: 01/12/17 19:48:00 CDT Notes: Roll in palms of hands gently; Do not shake `vigorously. (Same as: [facility] )"Single Patient Use Only "WASTE: F/P - Black; E - Municipal Trash Bin Stabl e for 28 days at room temperature.Expires in days from Date Start Date: 12/13/16 Stop Date: 12/15/16 Status: Discontinued insulin lispro 2 unit, 0.02 mL, Route: SUB-Q, Drug form: SOLN, TID-Before Meals, Dosing Weight 100, kg, PRN Blood Glucose Results, Start date: 12/13/16 19:49:00 CDT, Duration: 30 day, Stop date: 01/12/17 19:48:00 CDT Notes: Roll in palms of hands gently; Do not shake `vigorously. (Same as: Matilde delarosa )"Single Patient Use Only "WASTE: F/P - Black; E - Municipal Trash Bin Stabl e for 28 days at room temperature.Expires in days from Date Start Date: 12/13/16 Stop Date: 12/15/16 Status: Discontinued insulin lispro 8 unit, 0.08 mL, Route: SUB-Q, Drug form: SOLN, TID-Before Meals, Dosing Weight 100, kg, PRN Blood Glucose Results, Start date: 12/13/16 19:49:00 CDT, Duration: 30 day, Stop date: 01/12/17 19:48:00 CDT Notes: Roll in palms of hands gently; Do not shake `vigorously. (Same as: Matilde delarosa )"Single Patient Use Only "WASTE: F/P - Black; E - Municipal Trash Bin Stabl e for 28 days at room temperature.Expires in days from Date Start Date: 12/13/16 Stop Date: 12/15/16 Status: Discontinued labetalol 20 mg, Route: IVP, Drug form: INJ, ONCE, Dosing Weight 100, kg, Priority: STAT, Start date: 12/13/16 18:34:00 CDT, Stop date: 12/13/16 18:34:00 CDT Start Date: 12/13/16 Stop Date: 12/13/16 Status: Completed morphine Sulfate 2 mg, 1 mL, Route: IVP, Drug form: INJ, Q4H, Dosing Weight 100, kg, PRN Pain Sco re 7-10, Start date: 12/13/16 19:51:00 CDT, Stop date: 01/12/17 19:50:00 CDT Notes: (Same as:MORPhine Sulfate) Start Date: 12/13/16 Stop Date: 12/15/16 Status: Discontinued NIFEdipine 60 mg oral tablet, extended release 60 mg, 2 tab, Route: PO, Drug form: ERTAB, Daily, Dosing Weight 100, kg, Start d ate: 12/14/16 9:00:00 CDT, Duration: 30 day, Stop date: 01/12/17 9:00:00 CDT Notes: (Same as: Adalat CC, Procardia XL) Give on empty stomach. Take 1 hour be fore or 2 hours after meal; "Avoid grapefruit and grapefruit juice". Do not cru sh Start Date: 12/14/16 Stop Date: 12/15/16 Status: Discontinued ondansetron 4 mg, Route: IVP, ONCE, Dosing Weight 99, kg, Priority: STAT, Start date: 16:56:00 CDT, Stop date: 12/13/16 16:56:00 CDT Start Date: 12/13/16 Stop Date: 12/13/16 Status: Completed ondansetron 4 mg, 2 mL, Route: IVP, Drug form: INJ, Q6H, Dosing Weight 100, kg, PRN Nausea & Vomiting, Start date: 12/13/16 19:51:00 CDT, Duration: 30 day, Stop date: 01/12 19:50:00 CDT Notes: (Same as: Zofran) MEDICATION WASTE Product Size: 4 mgProduct Was savana: ___ mg Start Date: 12/13/16 Stop Date: 12/14/16 Status: Discontinued Phenergan 12.5 mg, Route: IVPB, ONCE, Dosing Weight 100, kg, Priority: STAT, Start date: 0 12/13/16 18:37:00 CDT, Stop date: 12/13/16 18:37:00 CDT Start Date: 12/13/16 Stop Date: 12/13/16 Status: Completed Protonix 40 mg, 1 tab, Route: PO, Drug form: ECTAB, Daily, Dosing Weight 103.182, kg, Bessie ority: NOW, Start date: 12/14/16 10:08:00 CDT, Duration: 30 day, Stop date: 12/24 06/10 9:00:00 CDT Notes: Tablet should not be chewed or crushed.(Same as: Protonix) Start Date: 12/14/16 Stop Date: 12/15/16 Status: Discontinued Reglan 10 mg oral tablet 5 mg, 1 tab, Route: PO, Drug form: TAB, Q6H, Dosing Weight 103.182, kg, Priority : NOW, Start date: 12/14/16 10:08:00 CDT, Stop date: 01/13/17 12:00:00 CDT Notes: (Same as: Reglan) Take 30 min before meals Start Date: 12/14/16 Stop Date: 12/15/16 Status: Discontinued Reglan 5 mg oral tablet 5 mg = 1 tab, PO, TID-Before Meals, # 30 tab, 0 Refill(s) Start Date: 12/15/16 Stop Date: 01/16/17 Status: Ordered Saline Flush 0.9% 10 mL, Route: IVP, Drug Form: INJ, Dosing Weight 99, kg, PRN, PRN Line Flush, St art date: 12/13/16 16:56:00 CDT, Duration: 30 day, Stop date: 01/12/17 16:55:00 CDT Notes: (Same as: BD Posiflush) Start Date: 12/13/16 Stop Date: 12/15/16 Status: Discontinued Saline Flush 0.9% 10 ml, Route: IVP, Drug Form: INJ, Dosing Weight 100, kg, PRN, PRN Line Flush, S tart date: 12/13/16 19:51:00 CDT, Duration: 30 day, Stop date: 01/12/17 19:50:00 CDT Notes: (Same as: BD Posiflush) Start Date: 12/13/16 Stop Date: 12/15/16 Status: Discontinued sodium chloride 0.9% 1000 ml INJ 1,000 mL 1,000 mL, Rate: 125 ml/hr, Infuse over: 8 hr, Route: IV, Dosing Weight 99 kg, To young Volume: 1,000, Start date: 12/13/16 16:56:00 CDT, Duration: 30 day, Stop harish e: 01/12/17 16:55:00 CDT Start Date: 12/13/16 Stop Date: 12/13/16 Status: Discontinued sodium chloride 0.9% 1000 ml INJ 1,000 mL 1,000 mL, Rate: 75 ml/hr, Infuse over: 13.3 hr, Route: IV, Dosing Weight 100 kg, Total Volume: 1,000, Start date: 12/13/16 19:51:00 CDT, Duration: 30 day, Stop date: 01/12/17 19:50:00 CDT Start Date: 12/13/16 Stop Date: 12/15/16 Status: Discontinued Xanax PO, Bedtime, PRN anxiety, 0 Refill(s) Start Date: 12/13/16 Status: Ordered Results ELECTROLYTES Most recent to 1 2 oldest [Reference Range]: Sodium Lvl [135-145 144 mEq/L 142 mEq/L mEq/L] (12/14/16 4:29 AM) (12/13/16 4:58 PM) Potassium Lvl 4.0 mEq/L 4.1 mEq/L [3.5-5.1 mEq/L] (12/14/16 4:29 AM) (12/13/16 4:58 PM) Chloride Lvl [95-109 113 mEq/L 111 mEq/L mEq/L] *HI* *HI* (12/14/16 4:29 AM) (12/13/16 4:58 PM) CO2 [24-32 mEq/L] 21 mEq/L 19 mEq/L *LOW* *LOW* (12/14/16 4:29 AM) (12/13/16 4:58 PM) AGAP [10.0-20.0 14.0 mEq/L 16.1 mEq/L mEq/L] (12/14/16 4:29 AM) (12/13/16 4:58 PM) CHEM PANEL Most recent to 1 2 oldest [Reference Range]: Creatinine Lvl 3.82 mg/dL 4.01 mg/dL [0.50-1.40 mg/dL] *HI* *HI* (12/14/16 4:29 AM) (12/13/16 4:58 PM) eGFR 16 mL/min/1.73m2 1 15 mL/min/1.73m2 2 *NA* *NA* (12/14/16 4:29 AM) (12/13/16 4:58 PM) BUN [7-22 mg/dL] 33 mg/dL 32 mg/dL *HI* *HI* (12/14/16 4:29 AM) (12/13/16 4:58 PM) B/C Ratio [6-25] 9 8 (12/14/16 4:29 AM) (12/13/16 4:58 PM) Glucose Lvl [70-99 83 mg/dL 155 mg/dL mg/dL] (12/14/16 4:29 AM) *HI* (12/13/16 4:58 PM) Total Protein 5.2 g/dL 6.8 g/dL [6.4-8.4 g/dL] *LOW* (12/13/16 4:58 PM) (12/14/16 4:29 AM) Albumin Lvl [3.5-5.0 1.7 g/dL 2.2 g/dL g/dL] *LOW* *LOW* (12/14/16 4:29 AM) (12/13/16 4:58 PM) Globulin [2.7-4.2 3.5 g/dL 4.6 g/dL g/dL] (12/14/16 4:29 AM) *HI* (12/13/16 4:58 PM) A/G Ratio [0.7-1.6] 0.5 0.5 *LOW* *LOW* (12/14/16 4:29 AM) (12/13/16 4:58 PM) Calcium Lvl 7.7 mg/dL 8.5 mg/dL [8.5-10.5 mg/dL] *LOW* (12/13/16 4:58 PM) (12/14/16 4:29 AM) ALT [0-65 unit/L] 8 unit/L 11 unit/L (12/14/16 4:29 AM) (12/13/16 4:58 PM) AST [0-37 unit/L] 8 unit/L 12 unit/L (12/14/16 4:29 AM) (12/13/16 4:58 PM) Alk Phos [39-136 64 unit/L 80 unit/L unit/L] (12/14/16 4:29 AM) (12/13/16 4:58 PM) Bili Total [0.2-1.3 0.2 mg/dL 0.3 mg/dL mg/dL] (12/14/16 4:29 AM) (12/13/16 4:58 PM) Lipase Lvl [73-393 129 unit/L unit/L] (12/13/16 4:58 PM) 1Result Comment: The eGFR is calculated using [...] be mul tiplied by the estimated BMI. CARDIAC ENZYMES Most recent to 1 2 oldest [Reference Range]: Total CK [12-191 138 unit/L unit/L] (12/13/16 4:58 PM) CK MB [0.5-3.6 3.0 ng/mL ng/mL] (12/13/16 4:58 PM) CK MB Index 2.2 [0.0-2.5] (12/13/16 4:58 PM) Troponin-I 0.03 ng/mL [0.00-0.40 ng/mL] (12/13/16 4:58 PM) DRUG SCREEN Most recent to 1 2 oldest [Reference Range]: U Amph Scr Negative [Negative] *NA* (12/13/16 5:40 PM) U Esther Scr Negative [Negative] *NA* (12/13/16 5:40 PM) U Benzodia Scr Negative [Negative] *NA* (12/13/16 5:40 PM) U Cocaine Scr Negative [Negative] *NA* (12/13/16 5:40 PM) U Opiate Scr Positive [Negative] *ABN* (12/13/16 5:40 PM) U Phencyc Scr Negative [Negative] *NA* (12/13/16 5:40 PM) U Cannab Scr Negative [Negative] *NA* (12/13/16 5:40 PM) UDS Note See Note (12/13/16 5:40 PM) URINE AND STOOL Most recent to 1 2 oldest [Reference Range]: UA Turbidity [Clear] Clear (12/13/16 5:40 PM) UA Color [Yellow] Yellow *NA* (12/13/16 5:40 PM) UA pH [5.0-8.0] 6.5 (12/13/16 5:40 PM) UA Spec Grav 1.015 [<=1.030] (12/13/16 5:40 PM) UA Glucose [Negative 100 mg/dL mg/dL] *ABN* (12/13/16 5:40 PM) UA Blood [Negative] Small *ABN* (12/13/16 5:40 PM) UA Ketones Negative [Negative] *NA* (12/13/16 5:40 PM) UA Protein [Negative >=300 mg/dL mg/dL] *ABN* (12/13/16 5:40 PM) UA Urobilinogen 0.2 EU/dL [0.1-1.0 EU/dL] (12/13/16 5:40 PM) UA Bili [Negative] Negative *NA* (12/13/16 5:40 PM) UA Leuk Est Trace [Negative] *ABN* (12/13/16 5:40 PM) UA Nitrite Negative [Negative] (12/13/16 5:40 PM) UA WBC [None Seen 21-50 /HPF /HPF] *ABN* (12/13/16 5:40 PM) UA RBC [0-2 /HPF] 6-10 /HPF *ABN* (12/13/16 5:40 PM) UA Bacteria [None Moderate /HPF Seen /HPF] (12/13/16 5:40 PM) UA Sq Epi [Few /LPF] Occasional /LPF (12/13/16 5:40 PM) HEMATOLOGY Most recent to 1 2 oldest [Reference Range]: WBC [3.7-10.4 K/CMM] 6.9 K/CMM 7.1 K/CMM (12/14/16 4:29 AM) (12/13/16 4:58 PM) RBC [4.20-5.40 3.21 M/CMM 3.98 M/CMM M/CMM] *LOW* *LOW* (12/14/16 4:29 AM) (12/13/16 4:58 PM) Hgb [12.0-16.0 g/dL] 9.3 g/dL 11.6 g/dL *LOW* *LOW* (12/14/16 4:29 AM) (12/13/16 4:58 PM) Hct [36.0-48.0 %] 27.9 % 34.1 % *LOW* *LOW* (12/14/16 4:29 AM) (12/13/16 4:58 PM) MCV [80.0-98.0 fL] 86.8 fL 85.6 fL (12/14/16 4:29 AM) (12/13/16 4:58 PM) MCH [27.0-31.0 pg] 29.1 pg 29.1 pg (12/14/16 4:29 AM) (12/13/16 4:58 PM) MCHC [32.0-36.0 33.5 g/dL 34.0 g/dL g/dL] (12/14/16 4:29 AM) (12/13/16 4:58 PM) RDW [11.5-14.5 %] 16.2 % 15.8 % *HI* *HI* (12/14/16 4:29 AM) (12/13/16 4:58 PM) Platelet [133-450 270 K/CMM 318 K/CMM K/CMM] (12/14/16 4:29 AM) (12/13/16 4:58 PM) MPV [7.4-10.4 fL] 8.4 fL 8.2 fL (12/14/16 4:29 AM) (12/13/16 4:58 PM) Segs [45.0-75.0 %] 55.1 % 62.9 % (12/14/16 4:29 AM) (12/13/16 4:58 PM) Lymphocytes 36.8 % 29.7 % [20.0-40.0 %] (12/14/16 4:29 AM) (12/13/16 4:58 PM) Monocytes [2.0-12.0 5.6 % 4.5 % %] (12/14/16 4:29 AM) (12/13/16 4:58 PM) Eosinophils [0.0-4.0 1.3 % 1.7 % %] (12/14/16 4:29 AM) (12/13/16 4:58 PM) Basophils [0.0-1.0 1.2 % 1.2 % %] *HI* *HI* (12/14/16 4:29 AM) (12/13/16 4:58 PM) Segs-Bands # 3.8 K/CMM 4.5 K/CMM [1.5-8.1 K/CMM] (12/14/16 4:29 AM) (12/13/16 4:58 PM) Lymphocytes # 2.5 K/CMM 2.1 K/CMM [1.0-5.5 K/CMM] (12/14/16 4:29 AM) (12/13/16 4:58 PM) Monocytes # [0.0-0.8 0.4 K/CMM 0.3 K/CMM K/CMM] (12/14/16 4:29 AM) (12/13/16 4:58 PM) Eosinophils # 0.1 K/CMM 0.1 K/CMM [0.0-0.5 K/CMM] (12/14/16 4:29 AM) (12/13/16 4:58 PM) Basophils # [0.0-0.2 0.1 K/CMM 0.1 K/CMM K/CMM] (12/14/16 4:29 AM) (12/13/16 4:58 PM) PT [12.0-14.7 14.8 seconds seconds] *HI* (12/14/16 4:29 AM) INR [0.85-1.17] 1.14 (12/14/16 4:29 AM) PTT [22.9-35.8 30.3 seconds seconds] (12/14/16 4:29 AM) Immunizations Given and Recorded Vaccine Date Status [...] alcohol concerns: No. Smoking Status Never smoker; Type: Cigaret rosie; Exposure to Tobacco Smoke None; Cigarette Smoking Last 365 Days No; Reg Smoking C essation Counseling No Assessment and Plan Extracted from: Title: UIP Hospitalist Discharge Author: Lolis Sharp MD Date: 12/15/16 Summary [facility] Providers Hospitalist D ischarge Summary Code Status: Full Code [Ordered] Admission [...] planning: >30 minutes Lolis Sharp MD Hospitalist [place] Extracted from: Title: [facility] Hospitalist Progress Author: Lolis Sharp Date: 12/14/16 Note [place] Hospitalist Aubrey isaacs Note Code Status: Full Code [Ordered] Chief Complaint: abdominal pain Subjective: Patient with severe abdominal pain. Nausea better after Reglan. Objective: Vitals and Temp: VitalsTmp(F)[id number] 12/14 15:[id number]--- 12/14 11:4498.485-----45488--- 12/14 08:[id number]--- 12/14 04:[id number]--- 12/13 23:52----[id number]--- 24 Hr Tmax: 98.4F (36.89c) at 12/14 11:4 4Vital Signs are the last 5 in [...] Right 20 gauge Over the needle catheter I&ORecordInOutBal 11/2323hr Tot 2 0 2 11/2223hr Tot 702 0 702 I/O Intake OutputBalance 12/14/20167a-3p 2.00 0.00 2.00 3p-11p 0.00 0.00 0. 00As of 18:04 11p-7a 0.00 0.00 0. 00 Totals 2.00 0.00 2.00 12/13/20167a-3p 0.00 0.00 0.00 3p-11p 1.00 0.00 1. 00 11p-7a 701.00 0.00 701.00 Totals 702.00 0.00 702.00 12/12/20167a-3p 0.00 0.00 0.00 3p-11p 0.00 0.00 0. 00 11p-7a 0.00 0.00 0. 00 Totals 0.00 0.00 0.00 Medications (32) Active [...] ONCE 12/13/16 (Completed) ondansetron 4 mg I SIZE TESTER ONCE 12/13/16 (Completed) promethazine (Phen ergan) 12.5 [...] Glucose POC: 110 mg/dL High (12/14/16) HCO3 [place]: 20 mMol/L Low (12/05/16) Hct: 27.9 % [...] likely home tomorrow Lolis Sharp MD Hospitalist [place] [facility] Extracted from: Title: Admission H&P * Author: Andi Obrien ate: 12/13/16 Jeremy COCHRAN Impression and Plan 41-year-old female with history [...]
--- OUTSIDE RECORDS SUMMARY | 2019-09-10 20:10 | XMS REPORT | Summary of Care ---
Author Author [facility] ospital Organization [facility] Address Unknown Phone Unavailable Encounter PRIMITIVO Mariano(SANGITA) [id number] Date(s): 10/22/16 - 10/26/16 [facility] [address] [place] [address]- [phone] Final: Cellulitis of abdominal wall Discharge Disposition: Home or Self Care Attending Physician: Dmitriy Mora MD Admitting Physician: Dmitriy Mora MD Vital Signs 1 2 3 Most recent to oldest [Reference Range]: 170.18 cm (10/23/16 8:14 AM) 170.18 cm (10/22/16 11:40 PM) Height 98.9 DegF (10/26/16 11:55 AM) 98.3 DegF (10/26/16 7:30 AM) 97.5 DegF (10/26/16 4:37 AM) Temperature Oral [96.4-99.1 DegF] 139/89 mmHg (10/26/16 11:55 AM) 165/97 mmHg *HI* (10/26/16 7:30 AM) 158/91 mmHg *HI* (10/26/16 4:37 AM) Blood Pressure [90-140/60-90 mmHg] 18 BRMIN (10/26/16 11:55 AM) 18 BRMIN (10/26/16 7:30 AM) 18 BRMIN (10/26/16 4:37 AM) Respiratory Rate [14-20 BRMIN] 85 bpm (10/26/16 11:55 AM) 88 bpm (10/26/16 7:30 AM) 85 bpm (10/26/16 4:37 AM) Peripheral Pulse Rate [60-100 bpm] 111.364 kg (10/26/16 11:52 AM) 111.364 kg (10/23/16 8:14 AM) 107.727 kg (10/22/16 11:40 PM) Weight 38.45 m2 (10/23/16 8:14 AM) 37.2 m2 (10/22/16 11:40 PM) Body Mass Index Problem List Condition Effective Dates Status Health Status Informan t Anxiety(Confirmed) Resolved Chronic Resolved depression(Confirmed ) CKD (chronic kidney 09/01/15 Resolved disease)(Confirmed) Diabetes Resolved mellitus(Confirmed) DM (diabetes 08/31/09 - 09/07/16 Resolved mellitus)(Confirmed) Escherichia 09/15/16 Active coli(Confirmed)1, 2, 3 Biliary < 08/16/16 Resolved colic(Confirmed) Below knee Active amputation status(Confirmed)4 HTN - 08/31/09 - 09/07/16 Resolved Hypertension(Confirm ed) HLD Resolved (hyperlipidemia)(Con firmed) Klebsiella(Confirmed 10/11/16 Active )5, 6, 7 Left heart failure Active with preserved LV function(Confirmed) Metabolic Active acidosis(Confirmed) MRSA(Confirmed)8, 9, 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 4Right sided BKA 5urine - 10/11/16 (ESBL) 6Blood, 03/29/2016 7Problem added by Discern Expert. 8right foot aspirate - 02/23/16 9nares - 02/19/16 10Problem added by Discern Expert. 11Left buttock abscess, 11/29/2013 12Problem added by Discern Expert. Allergies, Adverse Reactions, Alerts Substance Reaction Severity Status NKDA Active Medications atorvastatin 40 mg, 1 tab, Route: PO, Drug form: TAB, Bedtime, Dosing Weight 111.364, kg, Sta rt date: 10/23/16 21:00:00 CDT, Duration: 30 day, Stop date: 11/21/16 21:00:00 C DT Notes: (Same as: Lipitor) Start Date: 10/23/16 Stop Date: 10/26/16 Status: Discontinued atorvastatin 40 mg oral tablet 40 mg = 1 tab, PO, Bedtime, 0 Refill(s) Start Date: 10/23/16 Status: Ordered carvedilol 25 mg, 1 tab, Route: PO, Drug form: TAB, Q12H, Dosing Weight 111.364, kg, Start date: 10/23/16 21:00:00 CDT, Duration: 30 day, Stop date: 11/22/16 9:00:00 CDT Notes: Give with food. (Same As: Coreg) Start Date: 10/23/16 Stop Date: 10/26/16 Status: Discontinued carvedilol 25 mg oral tablet 25 mg = 1 tab, PO, Q12H, # 60 tab, 0 Refill(s) Start Date: 10/23/16 Status: Ordered cefTRIAXone 1 gm, Route: IVPB, [id number], Dosing Weight 107.727, kg, Start date: 10/23/16 6:00 :00 CDT, Duration: 10 day, Stop date: 11/01/16 6:00:00 CDT, ABX Indication: Urin christo Tract Infection Start Date: 10/23/16 Stop Date: 10/23/16 Status: Canceled cloNIDine 0.2 mg oral tablet 0.2 mg, Route: SL, Drug form: TAB, ONCE, Dosing Weight 107.727, kg, Priority: ST AT, Start date: 10/23/16 4:08:00 CDT, Stop date: 10/23/16 4:08:00 CDT Start Date: 10/23/16 Stop Date: 10/23/16 Status: Completed Dextrose 50% Syringe 25 gm, 50 mL, Route: IVP, Drug Form: INJ, Dosing Weight 111.364, kg, PRN, PRN Bl ood Glucose Results, Start date: 10/23/16 16:10:00 CDT, Duration: 30 day, Stop d ate: 11/22/16 16:09:00 CDT Start Date: 10/23/16 Stop Date: 10/26/16 Status: Discontinued Dextrose 50% Syringe 12.5 gm, 25 mL, Route: IVP, Drug Form: INJ, Dosing Weight 111.364, kg, PRN, PRN Blood Glucose Results, Start date: 10/23/16 16:10:00 CDT, Duration: 30 day, Stop date: 11/22/16 16:09:00 CDT Start Date: 10/23/16 Stop Date: 10/26/16 Status: Discontinued Dilaudid 1 mg, 1 mL, Route: IVP, Drug form: INJ, ONCE, Dosing Weight 107.727, kg, Priorit y: STAT, Start date: 10/23/16 5:10:00 CDT, Stop date: 10/23/16 5:10:00 CDT Start Date: 10/23/16 Stop Date: 10/23/16 Status: Completed Dilaudid 0.5 mg, 0.5 mL, Route: IVP, Drug form: INJ, Q3H, Dosing Weight 107.727, kg, PRN Pain Score 7-10, Start date: 10/23/16 5:57:00 CDT, Duration: 30 day, Stop date: 11/22/16 5:56:00 CDT Start Date: 10/23/16 Stop Date: 10/24/16 Status: Discontinued Dilaudid 1 mg, 1 mL, Route: IVP, Drug form: INJ, Q4H, Dosing Weight 107.727, kg, PRN Pain Score 7-10, Start date: 10/25/16 10:57:00 CDT, Duration: 30 day, Stop date: 07/08 10:56:00 CDT Start Date: 10/25/16 Stop Date: 10/26/16 Status: Discontinued Dilaudid 1 mg, 1 mL, Route: IVP, Drug form: INJ, Q6H, Dosing Weight 107.727, kg, PRN Pain Score 7-10, Start date: 10/24/16 13:42:00 CDT, Duration: 30 day, Stop date: 06/10 13:41:00 CDT Start Date: 10/24/16 Stop Date: 10/25/16 Status: Discontinued docusate sodium 100 mg oral capsule 100 mg, 1 cap, Route: PO, Drug form: CAP, BID, Dosing Weight 107.727, kg, Start date: 10/23/16 9:00:00 CDT, Duration: 30 day, Stop date: 11/21/16 17:00:00 CDT Notes: (Same as: Colace) (Do Not Crush) Start Date: 10/23/16 Stop Date: 10/26/16 Status: Discontinued ergocalciferol 50,000 intl units oral capsule 50,000 IntlUnit = 1 cap, PO, Q7D, # 4 caplet, 0 Refill(s), Pharmacy: [facility] [id number] Start Date: 10/26/16 Status: Ordered ergocalciferol 50,000 intl units oral capsule 50,000 IntlUnit, 1 cap, Route: PO, Drug form: CAP, Q7D, Dosing Weight 111.364, k g, Start date: 10/23/16 14:00:00 CDT, Duration: 30 day, Stop date: 11/20/16 9:00 :00 CDT Notes: (Same as: Vitamin D) "Do Not Crush" Start Date: 10/23/16 Stop Date: 10/26/16 Status: Discontinued fluconazole 200 mg, 1 tab, Route: PO, Drug form: TAB, [id number], Dosing Weight 111.364, kg, St art date: 10/24/16 15:00:00 CDT, Duration: 30 day, Stop date: 11/22/16 15:00:00 CDT Notes: (Same as: Diflucan) Start Date: 10/24/16 Stop Date: 10/26/16 Status: Discontinued fluconazole 200 mg oral tablet 200 mg = 1 tab, PO, [id number], X 4 day, # 4 tab, 0 Refill(s), Pharmacy: [facility] [id number] Start Date: 10/26/16 Stop Date: 10/30/16 Status: Ordered fluconazole 200 mg oral tablet 200 mg = 1 tab, PO, [id number], X 10 day, # 10 tab, 0 Refill(s), Pharmacy: [facility] [id number] Start Date: 10/26/16 Stop Date: 10/26/16 Status: Discontinued furosemide 40 mg oral tablet 40 mg = 1 tab, PO, BID, # 30 tab, 0 Refill(s) Start Date: 10/23/16 Status: Ordered glucagon 1 mg, Route: IM, Drug form: PDR/INJ, PRN, Dosing Weight 111.364, kg, PRN Blood G lucose Results, Start date: 10/23/16 16:10:00 CDT, Duration: 30 day, Stop date: 11/22/16 16:09:00 CDT Start Date: 10/23/16 Stop Date: 10/26/16 Status: Discontinued hydrALAZINE 10 mg, Route: IVP, Q3H, Dosing Weight 107.727, kg, Start date: 10/23/16 8:00:00 CDT, Duration: 30 day, Stop date: 11/22/16 5:00:00 CDT Start Date: 10/23/16 Stop Date: 10/23/16 Status: Discontinued hydrALAZINE 10 mg, 0.5 mL, Route: IVP, Drug form: INJ, Q3H, Dosing Weight 107.727, kg, PRN E levated BP, Start date: 10/23/16 11:43:00 CDT, Duration: 30 day, Stop date: 05/10 11:42:00 CDT Notes: (Same as: Apresoline)Push over 5 minutes Start Date: 10/23/16 Stop Date: 10/26/16 Status: Discontinued hydrALAZINE 20 mg, 1 mL, Route: IVP, Drug form: INJ, ONCE, Dosing Weight 107.727, kg, Priori ty: STAT, Start date: 10/23/16 5:10:00 CDT, Stop date: 10/23/16 5:10:00 CDT Notes: (Same as: Apresoline)Push over 5 minutes Start Date: 10/23/16 Stop Date: 10/23/16 Status: Completed hydrALAZINE 25 mg oral tablet 25 mg = 1 tab, PO, TID, # 90 tab, 0 Refill(s), Pharmacy: [id number] Start Date: 10/26/16 Status: Ordered hydrALAZINE 25 mg oral tablet 25 mg, 1 tab, Route: PO, Drug form: TAB, TID, Dosing Weight 111.364, kg, Priorit y: NOW, Start date: 10/25/16 9:34:00 CDT, Duration: 30 day, Stop date: 11/24/16 9:00:00 CDT Notes: (Same as: Apresoline) May interfere w/enteral feedings Take With Food. Start Date: 10/25/16 Stop Date: 10/26/16 Status: Discontinued insulin aspart 2 unit, 0.02 mL, Route: SUB-Q, Drug form: SOLN, Bedtime, Dosing Weight 111.364, kg, PRN Blood Glucose Results, Start date: 10/23/16 16:10:00 CDT, Duration: 30 d ay, Stop date: 11/22/16 16:09:00 CDT Notes: Roll in palms of hands gently; Do not shake vigorously. (Same as: Jarrod Angulo)"single patient use only"WASTE: F/P - Black; E - Municipal Trash Bin Stable f or 28 days at room temperature.Expires in days from Date Start Date: 10/23/16 Stop Date: 10/26/16 Status: Discontinued insulin aspart 3 unit, 0.03 mL, Route: SUB-Q, Drug form: SOLN, Bedtime, Dosing Weight 111.364, kg, PRN Blood Glucose Results, Start date: 10/23/16 16:10:00 CDT, Duration: 30 d ay, Stop date: 11/22/16 16:09:00 CDT Notes: Roll in palms of hands gently; Do not shake vigorously. (Same as: Jarrod Angulo)"single patient use only"WASTE: F/P - Black; E - Municipal Trash Bin Stable f or 28 days at room temperature.Expires in days from Date Start Date: 10/23/16 Stop Date: 10/26/16 Status: Discontinued insulin aspart 4 unit, 0.04 mL, Route: SUB-Q, Drug form: SOLN, Bedtime, Dosing Weight 111.364, kg, PRN Blood Glucose Results, Start date: 10/23/16 16:10:00 CDT, Duration: 30 d ay, Stop date: 11/22/16 16:09:00 CDT Notes: Roll in palms of hands gently; Do not shake vigorously. (Same as: Jarrod Angulo)"single patient use only"WASTE: F/P - Black; E - Municipal Trash Bin Stable f or 28 days at room temperature.Expires in days from Date Start Date: 10/23/16 Stop Date: 10/26/16 Status: Discontinued insulin aspart 1 unit, 0.01 mL, Route: SUB-Q, Drug form: SOLN, Bedtime, Dosing Weight 111.364, kg, PRN Blood Glucose Results, Start date: 10/23/16 16:10:00 CDT, Duration: 30 d ay, Stop date: 11/22/16 16:09:00 CDT Notes: Roll in palms of hands gently; Do not shake vigorously. (Same as: Jarrod Angulo)"single patient use only"WASTE: F/P - Black; E - Municipal Trash Bin Stable f or 28 days at room temperature.Expires in days from Date Start Date: 10/23/16 Stop Date: 10/26/16 Status: Discontinued insulin aspart 2 unit, 0.02 mL, Route: SUB-Q, Drug form: SOLN, TID-Before Meals, Dosing Weight 111.364, kg, PRN Blood Glucose Results, Start date: 10/23/16 16:10:00 CDT, Durat ion: 30 day, Stop date: 11/22/16 16:09:00 CDT Notes: Roll in palms of hands gently; Do not shake vigorously. (Same as: Jarrod Angulo)"single patient use only"WASTE: F/P - Black; E - Municipal Trash Bin Stable f or 28 days at room temperature.Expires in days from Date Start Date: 10/23/16 Stop Date: 10/26/16 Status: Discontinued insulin aspart 6 unit, 0.06 mL, Route: SUB-Q, Drug form: SOLN, TID-Before Meals, Dosing Weight 111.364, kg, PRN Blood Glucose Results, Start date: 10/23/16 16:10:00 CDT, Durat ion: 30 day, Stop date: 11/22/16 16:09:00 CDT Notes: Roll in palms of hands gently; Do not shake vigorously. (Same as: Jarrod Angulo)"single patient use only"WASTE: F/P - Black; E - Municipal Trash Bin Stable f or 28 days at room temperature.Expires in days from Date Start Date: 10/23/16 Stop Date: 10/26/16 Status: Discontinued insulin aspart 4 unit, 0.04 mL, Route: SUB-Q, Drug form: SOLN, TID-Before Meals, Dosing Weight 111.364, kg, PRN Blood Glucose Results, Start date: 10/23/16 16:10:00 CDT, Durat ion: 30 day, Stop date: 11/22/16 16:09:00 CDT Notes: Roll in palms of hands gently; Do not shake vigorously. (Same as: Jarrod Angulo)"single patient use only"WASTE: F/P - Black; E - Municipal Trash Bin Stable f or 28 days at room temperature.Expires in days from Date Start Date: 10/23/16 Stop Date: 10/26/16 Status: Discontinued insulin aspart 8 unit, 0.08 mL, Route: SUB-Q, Drug form: SOLN, TID-Before Meals, Dosing Weight 111.364, kg, PRN Blood Glucose Results, Start date: 10/23/16 16:10:00 CDT, Durat ion: 30 day, Stop date: 11/22/16 16:09:00 CDT Notes: Roll in palms of hands gently; Do not shake vigorously. (Same as: Jarrod Angulo)"single patient use only"WASTE: F/P - Black; E - Municipal Trash Bin Stable f or 28 days at room temperature.Expires in days from Date Start Date: 10/23/16 Stop Date: 10/26/16 Status: Discontinued insulin aspart 10 unit, 0.1 mL, Route: SUB-Q, Drug form: SOLN, TID-Before Meals, Dosing Weight 111.364, kg, PRN Blood Glucose Results, Start date: 10/23/16 16:10:00 CDT, Durat ion: 30 day, Stop date: 11/22/16 16:09:00 CDT Notes: Roll in palms of hands gently; Do not shake vigorously. (Same as: Jarrod Angulo)"single patient use only"WASTE: F/P - Black; E - Municipal Trash Bin Stable f or 28 days at room temperature.Expires in days from Date Start Date: 10/23/16 Stop Date: 10/26/16 Status: Discontinued Levemir 15 unit, 0.15 mL, Route: SUB-Q, Drug form: INJ, Daily, Dosing Weight 111.364, kg , Start date: 10/24/16 9:00:00 CDT, Duration: 30 day, Stop date: 11/22/16 9:00:0 0 CDT Notes: Same as LevemirDo not hold insulin without contacting prescriberWASTE: F/ P - Black; E - Municipal Trash Bin "single patient use only" Start Date: 10/24/16 Stop Date: 10/26/16 Status: Discontinued Levemir 100 units/mL 15 unit, SUB-Q, Daily, # 10 ml, 0 Refill(s) Start Date: 10/23/16 Status: Ordered lisinopril 20 mg oral tablet 20 mg = 1 tab, PO, Daily, # 30 tab, 0 Refill(s) Start Date: 10/23/16 Stop Date: 10/26/16 Status: Discontinued Lovenox 30 mg, 0.3 mL, Route: SUB-Q, Drug form: INJ, [id number], Dosing Weight 111.364, kg , For CrCl <30mL/min, Start date: 10/23/16 12:00:00 CDT, Duration: 30 day, Stop date: 11/21/16 12:00:00 CDT Notes: (Same as: Lovenox) Start Date: 10/23/16 Stop Date: 10/26/16 Status: Discontinued magnesium sulfate + sodium chloride 0.9% INJ 100 mL 1 gm, 2 mL, Route: IVPB, ONCE, Dosing Weight 111.364, kg, Start date: 10/24/16 7 :51:00 CDT, Stop date: 10/24/16 7:51:00 CDT Notes: (Same as: MgSO4)WASTE: F/P - Sink; E - Municipal Trash Bin MEDICATIO N WASTE Product Size: 1000 mgProduct Wasted: ___ mg Start Date: 10/24/16 Stop Date: 10/24/16 Status: Completed meropenem + sodium chloride 0.9% INJ 100 mL 500 mg, Route: IVPB, [id number], Dosing Weight 107.727, kg, CrCL= 26 -49 ml/min, Ext ended infusion, infuse over 3 hours, Start date: 10/23/16 6:00:00 CDT, Duration : 7 day, Stop date: 10/29/16 22:00:00 CDT, ABX Indication: Urinary Tract Infecti on Notes: Same as Merrem MEDICATION WASTE Product Size: 500 mgProduct Wast ed: ___ mg Start Date: 10/23/16 Stop Date: 10/24/16 Status: Discontinued Merrem + sodium chloride 0.9% INJ 100 mL 500 mg, Route: IVPB, [id number], Dosing Weight 111.364, kg, CrCL= 10 -25 ml/min, E xtended infusion, infuse over 3 hours, Start date: 10/24/16 7:00:00 CDT, Duratio n: 10 day, Stop date: 11/02/16 19:00:00 CDT, ABX Indication: Urinary Tract Infec tion Notes: Same as Merrem MEDICATION WASTE Product Size: 500 mgProduct Wast ed: ___ mg Start Date: 10/24/16 Stop Date: 10/26/16 Status: Discontinued morphine Sulfate 4 mg, 1 mL, Route: IVP, Drug form: INJ, ONCE, Dosing Weight 107.727, kg, Priorit y: STAT, Start date: 10/23/16 3:11:00 CDT, Stop date: 10/23/16 3:11:00 CDT Notes: (Same as:MORPhine Sulfate) Start Date: 10/23/16 Stop Date: 10/23/16 Status: Completed morphine Sulfate 4 mg, 1 mL, Route: IVP, Drug form: INJ, ONCE, Dosing Weight 107.727, kg, Priorit y: STAT, Start date: 10/23/16 0:34:00 CDT, Stop date: 10/23/16 0:34:00 CDT Notes: (Same as:MORPhine Sulfate) Start Date: 10/23/16 Stop Date: 10/23/16 Status: Completed naloxone 0.4 mg, 1 mL, Route: IVP, Drug form: INJ, PRN, Dosing Weight 111.364, kg, PRN Na rcotic Reversal, Start date: 10/25/16 10:57:00 CDT, Duration: 30 day, Stop date: 11/24/16 10:56:00 CDT Notes: Same as Narcan Start Date: 10/25/16 Stop Date: 10/26/16 Status: Discontinued Lamar 10/325 oral tablet 1 tab, Route: PO, Drug Form: TAB, Dosing Weight 107.727, kg, Q6H, PRN Pain Score 4-6, Start date: 10/23/16 5:57:00 CDT, Duration: 30 day, Stop date: 11/22/16 5: 56:00 CDT Notes: Do not exceed 4gm/day of acetaminophen. (Same as: Lamar 325/10) Start Date: 10/23/16 Stop Date: 10/26/16 Status: Discontinued ondansetron 4 mg, 2 mL, Route: IVP, Drug form: INJ, ONCE, Dosing Weight 107.727, kg, Priorit y: STAT, Start date: 10/23/16 0:34:00 CDT, Stop date: 10/23/16 0:34:00 CDT Notes: (Same as: Luis) MEDICATION WASTE Product Size: 4 mgProduct Was savana: ___ mg Start Date: 10/23/16 Stop Date: 10/23/16 Status: Completed pantoprazole 40 mg, 1 tab, Route: PO, Drug form: ECTAB, Q24H, Dosing Weight 111.364, kg, Star t date: 10/23/16 12:00:00 CDT, Duration: 30 day, Stop date: 11/21/16 12:00:00 CD T Notes: Tablet should not be chewed or crushed.(Same as: Protonix) Start Date: 10/23/16 Stop Date: 10/26/16 Status: Discontinued pantoprazole 40 mg oral granule = 1 Pack, PO, Daily, # 30 ea, 0 Refill(s) Start Date: 10/23/16 Status: Ordered Rocephin + sodium chloride 0.9% INJ 100 mL 2 gm, Route: IVPB, ONCE, Dosing Weight 107.727, kg, Priority: STAT, Start date: 10/23/16 3:04:00 CDT, Duration: 1 doses or times, Stop date: 10/23/16 3:04:00 CD T, ABX Indication: Urinary Tract Infection Notes: (Same As: Rocephin).Use with 100 mL NS and infuse over 30 min MEDICA TION WASTE Product Size: 2000 mgProduct Wasted: ___ mg Start Date: 10/23/16 Stop Date: 10/23/16 Status: Completed Saline Flush 0.9% 10 mL, Route: IVP, Drug Form: INJ, Dosing Weight 107.727, kg, PRN, PRN Line Flus h, Start date: 10/23/16 0:34:00 CDT, Duration: 30 day, Stop date: 11/22/16 0:33: 00 CDT Notes: (Same as: BD Posiflush) Start Date: 10/23/16 Stop Date: 10/26/16 Status: Discontinued sertraline 100 mg, 1 tab, Route: PO, Drug form: TAB, Daily, Dosing Weight 111.364, kg, Star t date: 10/24/16 9:00:00 CDT, Duration: 30 day, Stop date: 11/22/16 9:00:00 CDT Notes: (Same as: Zoloft) Start Date: 10/24/16 Stop Date: 10/26/16 Status: Discontinued sertraline 100 mg oral tablet 100 mg = 1 tab, PO, Daily, # 30 tab, 0 Refill(s) Start Date: 10/23/16 Status: Ordered sodium chloride 0.45% 1000 ml INJ 1,000 mL 1,000 mL, Rate: 40 ml/hr, Infuse over: 25 hr, Route: IV, Dosing Weight 107.727 k g, Total Volume: 1,000, Start date: 10/23/16 5:56:00 CDT, Duration: 30 day, Stop date: 11/22/16 5:55:00 CDT Start Date: 10/23/16 Stop Date: 10/26/16 Status: Discontinued Sodium Chloride 0.9% (Bolus) IV 1,000 mL, 2,000 ml/hr, Infuse Over: 30 minutes, Route: IV, 1,000, Drug form: INJ , ONCE, Priority: STAT, Dosing Weight 107.727 kg, Start date: 10/23/16 0:34:00 C DT, Duration: 1 doses or times, Stop date: 10/23/16 0:34:00 CDT Start Date: 10/23/16 Stop Date: 10/23/16 Status: Completed Tylenol with Codeine #3 oral tablet 1 tab, PO, Q6H, PRN Pain Score 1-5, 0 Refill(s) Start Date: 10/23/16 Status: Ordered Tylenol with Codeine #3 oral tablet 1 tab, Route: PO, Drug Form: TAB, Dosing Weight 111.364, kg, Q6H, PRN Pain Score 1-5, Start date: 10/23/16 11:20:00 CDT, Duration: 30 day, Stop date: 11/22/16 1 1:19:00 CDT Notes: Do not exceed 4gm/day of acetaminophen. (Same as: Tylenol with Codeine # 3) Start Date: 10/23/16 Stop Date: 10/26/16 Status: Discontinued Zofran 4 mg, 2 mL, Route: IVP, Drug form: INJ, ONCE, Dosing Weight 107.727, kg, Priorit y: STAT, Start date: 10/23/16 5:10:00 CDT, Stop date: 10/23/16 5:10:00 CDT Notes: (Same as: Zofran) MEDICATION WASTE Product Size: 4 mgProduct Was savana: ___ mg Start Date: 10/23/16 Stop Date: 10/23/16 Status: Completed Results ELECTROLYTES 1 2 3 Most recent to oldest [Reference Range]: 142 mEq/L (10/26/16 6:11 AM) 144 mEq/L (10/25/16 4:48 AM) 145 mEq/L (10/24/16 4:08 AM) Sodium Lvl [135-145 mEq/L] 4.7 mEq/L (10/26/16 6:11 AM) 4.5 mEq/L (10/25/16 4:48 AM) 4.4 mEq/L (10/24/16 4:08 AM) Potassium Lvl [3.5-5.1 mEq/L] 113 mEq/L *HI* (10/26/16 6:11 AM) 114 mEq/L *HI* (10/25/16 4:48 AM) 116 mEq/L *HI* (10/24/16 4:08 AM) Chloride Lvl [95-109 mEq/L] 23 mEq/L *LOW* (10/26/16 6:11 AM) 22 mEq/L *LOW* (10/25/16 4:48 AM) 21 mEq/L *LOW* (10/24/16 4:08 AM) CO2 [24-32 mEq/L] 10.7 mEq/L (10/26/16 6:11 AM) 12.5 mEq/L (10/25/16 4:48 AM) 12.4 mEq/L (10/24/16 4:08 AM) AGAP [10.0-20.0 mEq/L] CHEM PANEL 1 2 3 Most recent to oldest [Reference Range]: 2.90 mg/dL *HI* (10/26/16 6:11 AM) 3.00 mg/dL *HI* (10/25/16 4:48 AM) 3.00 mg/dL *HI* (10/24/16 4:08 AM) Creatinine Lvl [0.50-1.40 mg/dL] 19 mL/min/1.73m2 1 *NA* (10/26/16 6:11 AM) 18 mL/min/1.73m2 2 *NA* (10/25/16 4:48 AM) 18 mL/min/1.73m2 3 *NA* (10/24/16 4:08 AM) eGFR 19 mg/dL (10/26/16 6:11 AM) 19 mg/dL (10/25/16 4:48 AM) 21 mg/dL (10/24/16 4:08 AM) BUN [7-22 mg/dL] 7 (10/24/16 4:08 AM) 6 (10/23/16 1:59 AM) B/C Ratio [6-25] 93 mg/dL (10/26/16 6:11 AM) 74 mg/dL (10/25/16 4:48 AM) 75 mg/dL (10/24/16 4:08 AM) Glucose Lvl [70-99 mg/dL] 4.8 g/dL *LOW* (10/24/16 4:08 AM) 5.3 g/dL *LOW* (10/23/16 1:59 AM) Total Protein [6.4-8.4 g/dL] 1.2 g/dL *LOW* (10/26/16 6:11 AM) 1.1 g/dL *LOW* (10/25/16 4:48 AM) 1.1 g/dL *LOW* (10/24/16 4:08 AM) Albumin Lvl [3.5-5.0 g/dL] 3.7 g/dL (10/24/16 4:08 AM) 4.0 g/dL (10/23/16 1:59 AM) Globulin [2.7-4.2 g/dL] 0.3 *LOW* (10/24/16 4:08 AM) 0.3 *LOW* (10/23/16 1:59 AM) A/G Ratio [0.7-1.6] 8.2 mg/dL *LOW* (10/26/16 6:11 AM) 8.0 mg/dL *LOW* (10/25/16 4:48 AM) 7.5 mg/dL *LOW* (10/24/16 4:08 AM) Calcium Lvl [8.5-10.5 mg/dL] 4.3 mg/dL (10/26/16 6:11 AM) 4.4 mg/dL (10/25/16 4:48 AM) 4.3 mg/dL (10/24/16 4:08 AM) Phosphorus [2.5-4.5 mg/dL] 1.8 mg/dL (10/25/16 4:48 AM) 1.6 mg/dL *LOW* (10/24/16 4:08 AM) Magnesium Lvl [1.8-2.4 mg/dL] 9 unit/L (10/24/16 4:08 AM) 11 unit/L (10/23/16 1:59 AM) ALT [0-65 unit/L] 10 unit/L (10/24/16 4:08 AM) 16 unit/L (10/23/16 1:59 AM) AST [0-37 unit/L] 99 unit/L (10/24/16 4:08 AM) 110 unit/L (10/23/16 1:59 AM) Alk Phos [39-136 unit/L] 0.2 mg/dL (10/24/16 4:08 AM) 0.1 mg/dL *LOW* (10/23/16 1:59 AM) Bili Total [0.2-1.3 mg/dL] 60 unit/L *LOW* (10/23/16 1:59 AM) Lipase Lvl [73-393 unit/L] 1Result Comment: The [...] 3 Most recent to oldest [Reference Range]: 129.00 mg/dL *NA* (10/23/16 2:29 AM) U Creatinine 857.6 mg/dL *NA* (10/23/16 2:29 AM) U Protein 6.6 *NA* (10/23/16 2:29 AM) U Prot/Creat 225 mg/dL *NA* (10/23/16 2:29 AM) U Urea 64 mEq/L *NA* (10/23/16 2:29 AM) U Sodium 18.1 mEq/L *NA* (10/23/16 2:29 AM) U Potassium 57 mEq/L *NA* (10/23/16 2:29 AM) U Chloride 276 mOsm/kg *LOW* (10/23/16 2:29 AM) U Osmolality [300-800 mOsm/kg] None Seen (10/23/16 2:29 AM) U Eos [None Seen] URINE AND STOOL 1 2 3 Most recent to oldest [Reference Range]: Marked *ABN* (10/23/16 2:29 AM) UA Turbidity [Clear] Yellow *NA* (10/23/16 2:29 AM) UA Color 6.0 (10/23/16 2:29 AM) UA pH [5.0-8.0] 1.013 (10/23/16 2:29 AM) UA Spec Grav [<=1.030] 50 mg/dL *NA* (10/23/16 2:29 AM) UA Glucose Negative (10/23/16 2:29 AM) UA Blood [Negative] Negative mg/dL *NA* (10/23/16 2:29 AM) UA Ketones [Negative mg/dL] >=300 mg/dL *ABN* (10/23/16 2:29 AM) UA Protein [Negative mg/dL] <=1.0 mg/dL *NA* (10/23/16 2:29 AM) UA Urobilinogen [0.1-1.0 mg/dL] Negative *NA* (10/23/16 2:29 AM) UA Bili [Negative] Moderate *ABN* (10/23/16 2:29 AM) UA Leuk Est [Negative] Negative (10/23/16 2:29 AM) UA Nitrite [Negative] 142 /HPF *HI* (10/23/16 2:29 AM) UA WBC [0-5 /HPF] 12 /HPF *HI* (10/23/16 2:29 AM) UA RBC [0-2 /HPF] Occasional /HPF *NA* (10/23/16 2:29 AM) UA Bacteria [None Seen /HPF] Many /LPF *ABN* (10/23/16 2:29 AM) UA Sq Epi [Few /LPF] 10 /LPF *HI* (10/23/16 2:29 AM) UA Hyal Cast [0-2 /LPF] Few /LPF *NA* (10/23/16 2:29 AM) UA Mucus [None Seen /LPF] Moderate /HPF *ABN* (10/23/16 2:29 AM) UA Horton Yeast [None Seen /HPF] HEMATOLOGY 1 2 3 Most recent to oldest [Reference Range]: 4.4 K/CMM (10/26/16 6:11 AM) 5.0 K/CMM (10/25/16 4:48 AM) 5.3 K/CMM (10/24/16 4:08 AM) WBC [3.7-10.4 K/CMM] 3.15 M/CMM *LOW* (10/26/16 6:11 AM) 2.89 M/CMM *LOW* (10/25/16 4:48 AM) 2.81 M/CMM *LOW* (10/24/16 4:08 AM) RBC [4.20-5.40 M/CMM] 8.8 g/dL *LOW* (10/26/16 6:11 AM) 8.0 g/dL *LOW* (10/25/16 4:48 AM) 7.9 g/dL *LOW* (10/24/16 4:08 AM) Hgb [12.0-16.0 g/dL] 27.5 % *LOW* (10/26/16 6:11 AM) 25.2 % *LOW* (10/25/16:48 AM) 24.6 % *LOW* (10/24/16 4:08 AM) Hct [36.0-48.0 %] 87.3 fL (10/26/16 6:11 AM) 87.2 fL (10/25/16:48 AM) 87.5 fL (10/24/16 4:08 AM) MCV [80.0-98.0 fL] 28.0 pg (10/26/16 6:11 AM) 27.6 pg (10/25/16:48 AM) 28.1 pg (10/24/16 4:08 AM) MCH [27.0-31.0 pg] 32.1 g/dL (10/26/16 6:11 AM) 31.7 g/dL *LOW* (10/25/16:48 AM) 32.1 g/dL (10/24/16 4:08 AM) MCHC [32.0-36.0 g/dL] 13.9 % (10/26/16 6:11 AM) 14.2 % (10/25/16:48 AM) 14.2 % (10/24/16 4:08 AM) RDW [11.5-14.5 %] 331 K/CMM (10/26/16 6:11 AM) 286 K/CMM (10/25/16:48 AM) 265 K/CMM (10/24/16 4:08 AM) Platelet [133-450 K/CMM] 8.2 fL (10/26/16 6:11 AM) 8.6 fL (10/25/16 4:48 AM) 8.7 fL (10/24/16 4:08 AM) MPV [7.4-10.4 fL] 48.4 % (10/26/16 6:11 AM) 45.9 % (10/25/16 4:48 AM) 47.7 % (10/24/16 4:08 AM) Segs [45.0-75.0 %] 39.4 % (10/26/16 6:11 AM) 41.0 % *HI* (10/25/16 4:48 AM) 40.0 % (10/24/16 4:08 AM) Lymphocytes [20.0-40.0 %] 6.4 % (10/26/16 6:11 AM) 8.3 % (10/25/16 4:48 AM) 7.2 % (10/24/16 4:08 AM) Monocytes [2.0-12.0 %] 4.4 % *HI* (10/26/16 6:11 AM) 3.7 % (10/25/16 4:48 AM) 4.3 % *HI* (10/24/16 4:08 AM) Eosinophils [0.0-4.0 %] 1.4 % *HI* (10/26/16 6:11 AM) 1.1 % *HI* (10/25/16 4:48 AM) 0.8 % (10/24/16 4:08 AM) Basophils [0.0-1.0 %] 2.1 K/CMM (10/26/16 6:11 AM) 2.3 K/CMM (10/25/16 4:48 AM) 2.5 K/CMM (10/24/16 4:08 AM) Segs-Bands # [1.5-8.1 K/CMM] 1.7 K/CMM (10/26/16 6:11 AM) 2.0 K/CMM (10/25/16 4:48 AM) 2.1 K/CMM (10/24/16 4:08 AM) Lymphocytes # [1.0-5.5 K/CMM] 0.3 K/CMM (10/26/16 6:11 AM) 0.4 K/CMM (10/25/16 4:48 AM) 0.4 K/CMM (10/24/16 4:08 AM) Monocytes # [0.0-0.8 K/CMM] 0.2 K/CMM (10/26/16 6:11 AM) 0.2 K/CMM (10/25/16 4:48 AM) 0.2 K/CMM (10/24/16 4:08 AM) Eosinophils # [0.0-0.5 K/CMM] 0.1 K/CMM (10/26/16 6:11 AM) 0.1 K/CMM (10/25/16 4:48 AM) 0.0 K/CMM (10/23/16 1:59 AM) Basophils # [0.0-0.2 K/CMM] Normal (10/23/16 1:59 AM) RBC Morph Normal (10/23/16 1:59 AM) Plt Morph Immunizations Given and Recorded Vaccine Date Status [...] Yes Assessment and Plan Extracted from: Title: Clinical Document Author: Ana Horton MD Date : 10/26/16 PATIENT NAME: GISELA GAMING DISCHARGE SUMMARY DATE OF ADMISSION: 10/23/2016 DATE [...] 10. History of depression. HOSPITAL COURSE: Ms. Gaming is a 41-year-old -[place] female with past medical history of hypertension, [...] acute renal failure and CKD stage 4. Risk Compliance Manager, Dr. Gaytan was consulted. He managed the [...] She has been cleared by ID and replenishment analyst for discharge. WBC is within normal limits [...] MD Date Dictated: 10/26/2016 Date Transcribed: 10/26/2016 NOAH/DS Extracted from: Title: Nephrology Progress Note Author: Noe Gaytan MD Date : 10/26/16 Impression and Plan 1. Acute on [...] are managed by the primary team. Extracted from: Title: Nephrology Consultation Author: Noe Gaytan MD Date: [...] Thank you for the kind consultation. Extracted from: Title: General Admission H&P * Author: Rei Artis Date: 10/23/16 Glo COCHRAN Impression and Plan 1. UTI Place in [...]
--- OUTSIDE RECORDS SUMMARY | 2019-09-10 20:10 | XMS REPORT | Summary of Care ---
Author Author [facility] Organization [facility] Address Unknown Phone Unavailable Encounter PRIMITIVO Mariano(SANGITA) [id number] Date(s): 12/20/16 - 12/20/16 [facility] [address] [employer] provided by [facility] [employer] [facility] [place] [address]- Discharge Diagnosis: Acute UTI Discharge Disposition: Home or Self Care Attending Physician: Molly Pascual MD Vital Signs 1 2 3 Most recent to oldest [Reference Range]: 99.0 DegF (12/20/16 6:21 AM) 100 DegF *HI* (12/20/16 3:12 AM) Temperature Oral [96.4-99.1 DegF] 150/88 mmHg *HI* (12/20/16 7:45 AM) 166/94 mmHg *HI* (12/20/16 7:24 AM) 198/111 mmHg *HI* (12/20/16 6:24 AM) Blood Pressure [90-140/60-90 mmHg] 15 BRMIN (12/20/16 7:45 AM) 18 BRMIN (12/20/16 7:24 AM) 20 BRMIN (12/20/16 6:21 AM) Respiratory Rate [14-20 BRMIN] 126 bpm *HI* (12/20/16 6:21 AM) 92 bpm (12/20/16 3:12 AM) Peripheral Pulse Rate [60-100 bpm] Problem List Condition Effective Dates Status Health [...] Substance Reaction Severity Status NKDA Active Medications Benadryl 12.5 mg, 0.25 mL, Route: IVP, Drug form: INJ, ONCE, Dosing Weight 103.182, kg, P riority: STAT, Start date: 12/20/16 3:44:00 CDT, Stop date: 12/20/16 3:44:00 CDT Notes: (Same as: Benadryl) Start Date: 12/20/16 Stop Date: 12/20/16 Status: Completed morphine Sulfate 4 mg, 1 mL, Route: IVP, Drug form: SOLN, ONCE, Dosing Weight 103.182, kg, Priori ty: STAT, Start date: 12/20/16 3:44:00 CDT, Stop date: 12/20/16 3:44:00 CDT Notes: (Same as:MORPhine Sulfate) Start Date: 12/20/16 Stop Date: 12/20/16 Status: Completed Reglan 5 mg, 1 mL, Route: IVP, Drug form: INJ, ONCE, Dosing Weight 103.182, kg, Priorit y: STAT, Start date: 12/20/16 3:44:00 CDT, Stop date: 12/20/16 3:44:00 CDT Notes: (Same as: Sevenlan) Start Date: 12/20/16 Stop Date: 12/20/16 Status: Completed Vantin 200 mg oral tablet 200 mg = 1 tab, PO, Q12H, X 10 day, # 20 tab, 0 Refill(s) Start Date: 12/20/16 Stop Date: 12/30/16 Status: Ordered Results ELECTROLYTES Most recent to 1 oldest [Reference Range]: Sodium Lvl [135-145 143 mEq/L mEq/L] (12/20/16 4:29 AM) Potassium Lvl 4.1 mEq/L [3.5-5.1 mEq/L] (12/20/16 4:29 AM) Chloride Lvl [95-109 111 mEq/L mEq/L] *HI* (12/20/16 4:29 AM) CO2 [24-32 mEq/L] 22 mEq/L *LOW* (12/20/16 4:29 AM) AGAP [10.0-20.0 14.1 mEq/L mEq/L] (12/20/16 4:29 AM) CHEM PANEL Most recent to 1 oldest [Reference Range]: Creatinine Lvl 3.54 mg/dL [0.50-1.40 mg/dL] *HI* (12/20/16 4:29 AM) eGFR 15 mL/min/1.73m2 1 *NA* (12/20/16 4:29 AM) BUN [7-22 mg/dL] 35 mg/dL *HI* (12/20/16 4:29 AM) B/C Ratio [6-25] 10 (12/20/16 4:29 AM) Glucose Lvl [70-99 182 mg/dL mg/dL] *HI* (12/20/16 4:29 AM) Total Protein 6.9 g/dL [6.4-8.4 g/dL] (12/20/16 4:29 AM) Albumin Lvl [3.5-5.0 2.3 g/dL g/dL] *LOW* (12/20/16 4:29 AM) Globulin [2.7-4.2 4.6 g/dL g/dL] *HI* (12/20/16 4:29 AM) A/G Ratio [0.7-1.6] 0.5 *LOW* (12/20/16 4:29 AM) Calcium Lvl 8.7 mg/dL [8.5-10.5 mg/dL] (12/20/16 4:29 AM) ALT [0-65 unit/L] 10 unit/L (12/20/16 4:29 AM) AST [0-37 unit/L] 17 unit/L (12/20/16 4:29 AM) Alk Phos [39-136 89 unit/L unit/L] (12/20/16 4:29 AM) Bili Total [0.2-1.3 0.2 mg/dL mg/dL] (12/20/16 4:29 AM) Lipase Lvl [73-393 95 unit/L unit/L] (12/20/16 4:29 AM) 1Result Comment: The eGFR is calculated using [...] mul tiplied by the estimated BMI. URINE AND STOOL Most recent to 1 oldest [Reference Range]: UA Turbidity [Clear] Clear (12/20/16 5:58 AM) UA Color [Yellow] Yellow *NA* (12/20/16 5:58 AM) UA pH [5.0-8.0] 6.5 (12/20/16 5:58 AM) UA Spec Grav 1.020 [<=1.030] (12/20/16 5:58 AM) UA Glucose [Negative 250 mg/dL mg/dL] *ABN* (12/20/16 5:58 AM) UA Blood [Negative] Small *ABN* (12/20/16 5:58 AM) UA Ketones Negative [Negative] *NA* (12/20/16 5:58 AM) UA Protein [Negative >=300 mg/dL mg/dL] *ABN* (12/20/16 5:58 AM) UA Urobilinogen 0.2 EU/dL [0.1-1.0 EU/dL] (12/20/16 5:58 AM) UA Bili [Negative] Negative *NA* (12/20/16 5:58 AM) UA Leuk Est Negative [Negative] (12/20/16 5:58 AM) UA Nitrite Negative [Negative] (12/20/16 5:58 AM) UA WBC [None Seen 6-10 /HPF /HPF] *ABN* (12/20/16 5:58 AM) UA RBC [0-2 /HPF] 21-50 /HPF *ABN* (12/20/16 5:58 AM) UA Bacteria [None Moderate /HPF Seen /HPF] (12/20/16 5:58 AM) UA Sq Epi [Few /LPF] Moderate /LPF *ABN* (12/20/16 5:58 AM) UA Amorph Tamera [None Few /HPF Seen /HPF] *ABN* (12/20/16 5:58 AM) UA Mucus [None Seen Few /LPF /LPF] (12/20/16 5:58 AM) UA [place] Yeast [None Moderate /HPF Seen /HPF] *ABN* (12/20/16 5:58 AM) HEMATOLOGY Most recent to 1 oldest [Reference Range]: WBC [3.7-10.4 K/CMM] 12.9 K/CMM *HI* (12/20/16 4:29 AM) RBC [4.20-5.40 4.42 M/CMM M/CMM] (12/20/16 4:29 AM) Hgb [12.0-16.0 g/dL] 12.4 g/dL (12/20/16 4:29 AM) Hct [36.0-48.0 %] 38.1 % (12/20/16 4:29 AM) MCV [80.0-98.0 fL] 86.3 fL (12/20/16 4:29 AM) MCH [27.0-31.0 pg] 28.0 pg (12/20/16 4:29 AM) MCHC [32.0-36.0 32.4 g/dL g/dL] (12/20/16 4:29 AM) RDW [11.5-14.5 %] 16.2 % *HI* (12/20/16 4:29 AM) Platelet [133-450 415 K/CMM K/CMM] (12/20/16 4:29 AM) MPV [7.4-10.4 fL] 7.8 fL (12/20/16 4:29 AM) Segs [45.0-75.0 %] 79.3 % *HI* (12/20/16 4:29 AM) Lymphocytes 15.3 % [20.0-40.0 %] *LOW* (12/20/16 4:29 AM) Monocytes [2.0-12.0 3.7 % %] (12/20/16 4:29 AM) Eosinophils [0.0-4.0 0.7 % %] (12/20/16 4:29 AM) Basophils [0.0-1.0 1.0 % %] (12/20/16 4:29 AM) Segs-Bands # 10.2 K/CMM [1.5-8.1 K/CMM] *HI* (12/20/16 4:29 AM) Lymphocytes # 2.0 K/CMM [1.0-5.5 K/CMM] (12/20/16 4:29 AM) Monocytes # [0.0-0.8 0.5 K/CMM K/CMM] (12/20/16 4:29 AM) Eosinophils # 0.1 K/CMM [0.0-0.5 K/CMM] (12/20/16 4:29 AM) Basophils # [0.0-0.2 0.1 K/CMM K/CMM] (12/20/16 4:29 AM) Immunizations Given and Recorded Vaccine [...] Smoking Cessation Counseling Yes Assessment and Plan No data available for this section
--- OUTSIDE RECORDS SUMMARY | 2019-09-10 20:10 | XMS REPORT | Summary of Care ---
Author Author [facility] Organization [facility] Address Unknown Phone Unavailable Encounter PRIMITIVO Mariano(SANGITA) [id number] Date(s): 10/02/16 - 10/07/16 [facility] [address] [place] [address]- Discharge Disposition: Home or Self Care Attending Physician: Darrion Dykes MD Admitting Physician: Darrion Dykes MD Vital Signs 1 2 3 Most recent to oldest [Reference Range]: 170.18 cm (10/02/16 1:33 AM) Height 109.3 kg (10/04/16 5:00 AM) 156.5 kg (10/03/16 6:24 AM) Current Weight 98.5 DegF (10/07/16 12:30 PM) 98.5 DegF (10/07/16 8:00 AM) 98.2 DegF (10/07/16 4:58 AM) Temperature Oral [96.4-99.1 DegF] 132/76 mmHg (10/07/16 12:30 PM) 129/81 mmHg (10/07/16 8:00 AM) 103/65 mmHg (10/07/16 4:58 AM) Blood Pressure [90-140/60-90 mmHg] 18 BRMIN (10/07/16 12:30 PM) 18 BRMIN (10/07/16 8:00 AM) 18 BRMIN (10/07/16 4:58 AM) Respiratory Rate [14-20 BRMIN] 90 bpm (10/07/16 12:30 PM) 90 bpm (10/07/16 8:00 AM) 82 bpm (10/07/16 4:58 AM) Peripheral Pulse Rate [60-100 bpm] 109.545 kg (10/02/16 1:33 AM) Weight 37.82 m2 (10/02/16 1:33 AM) Body Mass Index Problem List Condition Effective Dates Status Health Status Informan t Anxiety(Confirmed) Resolved CHF - Congestive Active heart failure(Confirmed) Chronic Resolved depression(Confirmed ) CKD (chronic kidney Resolved disease)(Confirmed) Diabetes Resolved mellitus(Confirmed) DM (diabetes Active mellitus)(Confirmed) Escherichia Active coli(Confirmed)1 Biliary < 08/16/16 Resolved colic(Confirmed) Below knee Active amputation status(Confirmed)2 HTN [...] TAB, Q4H, Dosing Weight 109.545, kg, PRN Se e Nurse's Notes, Start date: 10/02/16 5:46:00 CDT, Duration: 30 day, Stop date: 11/01/16 5:45:00 CDT, Pain 1-3/Temp > 100.4 F, headache Notes: Do not exceed 4 gm/day. (Same as: Tylenol) Start Date: 10/02/16 Stop Date: 10/04/16 Status: Discontinued Al hydroxide/Mg hydroxide/simethicone 200 mg-200 mg-20 mg/5 mL oral suspension 30 ml, Route: PO, Drug Form: SUSP, Dosing Weight 109.545, kg, Q4H, PRN Indigesti on, Start date: 10/03/16 14:19:00 CDT, Duration: 30 day, Stop date: 11/02/16 14: 18:00 CDT Notes: (aluminum hydroxide-magnesium hyd-simethicone [phone]/5ml 30 ml ud S US) Start Date: 10/03/16 Stop Date: 10/06/16 Status: Discontinued albumin human 25% intravenous solution 25 gm, 100 mL, Route: IV, Drug form: INJ, Q12H, Dosing Weight 109.545, kg, Prior ity: NOW, Start date: 10/02/16 15:51:00 CDT, Duration: 2 doses or times, Stop da te: 10/02/16 21:00:00 CDT Notes: LOT#: Mfg: WASTE: F/P - Red; E -Red (Same a s: Albuminar)"blood product derivative" Start Date: 10/02/16 Stop Date: 10/02/16 Status: Completed albumin human 25% intravenous solution 12.5 gm, 50 mL, Route: IVPB, Drug form: INJ, Q12H, Dosing Weight 109.545, kg, St art date: 10/03/16 11:34:00 CDT, Duration: 2 doses or times, Stop date: 10/03/16 21:00:00 CDT Notes: LOT#: Mfg: WASTE: F/P - Red; E -Red (Same a s: Albuminar)"blood product derivative" Start Date: 10/03/16 Stop Date: 10/03/16 Status: Completed albumin human 25% intravenous solution 25 gm, 100 mL, Route: IVPB, Drug form: INJ, Q4H, Dosing Weight 109.545, kg, Star t date: 10/03/16 12:00:00 CDT, Duration: 6 doses or times, Stop date: 10/04/16 8 :00:00 CDT Notes: LOT#: Mfg: WASTE: F/P - Red; E -Red (Same a s: Albuminar)"blood product derivative" Start Date: 10/03/16 Stop Date: 10/03/16 Status: Discontinued albumin human 5% intravenous solution 12.5 gm, 250 mL, 500 ml/hr, Route: IV, Drug Form: INJ, Dosing Weight 109.545, kg , ONCE, Start date: 10/03/16 10:25:00 CDT, Stop date: 10/03/16 10:25:00 CDT Notes: LOT#: Mfg: WASTE: F/P - Red; E -Red (Same a s: Albuminar)"blood product derivative" Start Date: 10/03/16 Stop Date: 10/03/16 Status: Completed albuterol-ipratropium 2.5-0.5 mg inhalation solution 3 ml, Route: NEB, Drug Form: SOLN, Dosing Weight 109.545, kg, RQ4H, PRN Wheezing , Start date: 10/02/16 14:42:00 CDT, Duration: 30 day, Stop date: 11/01/16 14:41 :00 CDT Notes: (Same as: Nallely) Start Date: 10/02/16 Stop Date: 10/07/16 Status: Discontinued Ativan 2 mg, Route: IVP, Drug form: INJ, ONCE, Dosing Weight 109.545, kg, PRN Anxiety, Start date: 10/02/16 5:32:00 CDT Start Date: 10/02/16 Stop Date: 10/02/16 Status: Completed Ativan 1 mg, 0.5 mL, Route: IVP, Drug form: INJ, ONCE, Dosing Weight 109.545, kg, PRN A nxiety, Start date: 10/02/16 10:25:00 CDT Notes: (Same as: Ativan) Start Date: 10/02/16 Stop Date: 10/07/16 Status: Discontinued BD Normal Saline Flush 10 mL, Route: IVP, Drug Form: INJ, PRN, PRN Line Flush, Start date: 10/02/16 2:0 4:00 CDT, Duration: 30 day, Stop date: 11/01/16 2:03:00 CDT Notes: (Same as: BD Posiflush) Start Date: 10/02/16 Stop Date: 10/07/16 Status: Discontinued cefuroxime 750 mg, Route: IVPB, ABXQ8H, Dosing Weight 109.545, kg, Start date: 10/03/16 15: 00:00 CDT, Duration: 5 day, Stop date: 10/08/16 7:00:00 CDT Start Date: 10/03/16 Stop Date: 10/03/16 Status: Deleted ciprofloxacin 200 mg, 100 mL, Route: IVPB, Drug form: INJ, [id number], Dosing Weight 109.545, kg, Priority: STAT, Start date: 10/02/16 5:50:00 CDT, Duration: 10 day, Stop date: 10/11/16 17:50:00 CDT, ABX Indication: Intra-abdominal Infection Start Date: 10/02/16 Stop Date: 10/02/16 Status: Discontinued cloNIDine 0.1 mg oral tablet 0.1 mg, Route: PO, Drug form: TAB, BID, Dosing Weight 109.545, kg, Start date: 0 10/04/16 17:00:00 CDT, Duration: 30 day, Stop date: 11/03/16 9:00:00 CDT Start Date: 10/04/16 Stop Date: 10/04/16 Status: Canceled cloNIDine 0.1 mg oral tablet 0.1 mg, 1 tab, Route: PO, Drug form: TAB, BID, Dosing Weight 109.545, kg, Start date: 10/04/16 17:00:00 CDT, Duration: 30 day, Stop date: 11/03/16 9:00:00 CDT Notes: (Same As: Catapres) Start Date: 10/04/16 Stop Date: 10/07/16 Status: Discontinued cloNIDine patch 0.2 mg/24 hr 1 patch, Route: TOP, Drug Form: ERFILM, Dosing Weight 109.545, kg, Q7D, Start da te: 10/02/16 11:00:00 CDT, Duration: 30 day, Stop date: 10/30/16 9:00:00 CDT Notes: Patch delivers 0.2 mg/24 hours; Patch is applied weekly. "Remove old pat ch before application of new patch" (Same As: [id number]) Start Date: 10/02/16 Stop Date: 10/04/16 Status: Discontinued Coreg 25 mg, 1 tab, Route: PO, Drug form: TAB, Q12H, Dosing Weight 109.545, kg, Start date: 10/04/16 21:00:00 CDT, Stop date: 11/03/16 9:00:00 CDT Notes: Give with food. (Same As: Coreg) Start Date: 10/04/16 Stop Date: 10/07/16 Status: Discontinued Coreg 12.5 mg, Route: PO, Drug form: TAB, Q12H, Dosing Weight 109.545, kg, Start date: 10/04/16 9:00:00 CDT, Duration: 30 day, Stop date: 11/02/16 21:00:00 CDT Start Date: 10/04/16 Stop Date: 10/04/16 Status: Discontinued Dextrose 50% in Water IV 50 mL, Route: IVP, Start date: 10/02/16 15:36:00 CDT, Duration: 30 day, Stop harish e: 11/01/16 15:35:00 CDT, PRN Blood Glucose Results Start Date: 10/02/16 Stop Date: 10/07/16 Status: Discontinued Dextrose 50% Syringe 12.5 gm, 25 mL, Route: IVP, Drug Form: INJ, Dosing Weight 109.545, kg, PRN, PRN Blood Glucose Results, Start date: 10/02/16 5:59:00 CDT, Duration: 30 day, Stop date: 11/01/16 5:58:00 CDT Start Date: 10/02/16 Stop Date: 10/02/16 Status: Discontinued Dextrose 50% Syringe 25 gm, 50 mL, Route: IVP, Drug Form: INJ, Dosing Weight 109.545, kg, PRN, PRN Bl ood Glucose Results, Start date: 10/02/16 5:59:00 CDT, Duration: 30 day, Stop da te: 11/01/16 5:58:00 CDT Start Date: 10/02/16 Stop Date: 10/02/16 Status: Discontinued Dextrose 50% Syringe 12.5 gm, 25 mL, Route: IVP, Drug Form: INJ, Dosing Weight 109.545, kg, PRN, PRN Blood Glucose Results, Start date: 10/04/16 20:42:00 CDT, Duration: 30 day, Stop date: 11/03/16 20:41:00 CDT Start Date: 10/04/16 Stop Date: 10/07/16 Status: Discontinued Dextrose 50% Syringe 25 gm, 50 mL, Route: IVP, Drug Form: INJ, Dosing Weight 109.545, kg, PRN, PRN Bl ood Glucose Results, Start date: 10/04/16 20:42:00 CDT, Duration: 30 day, Stop d ate: 11/03/16 20:41:00 CDT Start Date: 10/04/16 Stop Date: 10/06/16 Status: Discontinued Dilaudid 1 mg, 1 mL, Route: IVP, Drug form: INJ, ONCE, Dosing Weight 109.545, kg, Priorit y: STAT, Start date: 10/02/16 2:36:00 CDT, Stop date: 10/02/16 2:36:00 CDT Start Date: 10/02/16 Stop Date: 10/02/16 Status: Completed Dilaudid 1 mg, 1 mL, Route: IVP, Drug form: INJ, ONCE, Dosing Weight 109.545, kg, Priorit y: STAT, Start date: 10/02/16 4:35:00 CDT, Stop date: 10/02/16 4:35:00 CDT Start Date: 10/02/16 Stop Date: 10/02/16 Status: Completed Dilaudid 1 mg, 1 mL, Route: IV, Drug form: INJ, Q3H, Dosing Weight 109.545, kg, PRN Pain Score 6-10, Start date: 10/03/16 14:19:00 CDT, Duration: 30 day, Stop date: 10/22 06/10 14:18:00 CDT Start Date: 10/03/16 Stop Date: 10/04/16 Status: Discontinued Dilaudid 2 mg, 2 mL, Route: IVP, Drug form: INJ, Q4H, Dosing Weight 109.545, kg, PRN Pain Score 4-6, Start date: 10/02/16 5:46:00 CDT, Stop date: 11/01/16 5:45:00 CDT Start Date: 10/02/16 Stop Date: 10/04/16 Status: Discontinued Dilaudid 0.5 mg, 0.5 mL, Route: IVP, Drug form: INJ, Q3H, Dosing Weight 109.545, kg, PRN Pain Score 6-10, Start date: 10/04/16 9:15:00 CDT, Duration: 30 day, Stop date: 11/03/16 9:14:00 CDT Start Date: 10/04/16 Stop Date: 10/05/16 Status: Discontinued docusate 100 mg, 1 cap, Route: PO, Drug form: CAP, BID, Dosing Weight 109.545, kg, PRN as needed for constipation, Start date: 10/02/16 5:46:00 CDT, Duration: 30 day, St op date: 11/01/16 5:45:00 CDT Notes: (Same as: Colace) (Do Not Crush) Start Date: 10/02/16 Stop Date: 10/07/16 Status: Discontinued famotidine 20 mg, 1 tab, Route: PO, Drug form: TAB, Q12H, Dosing Weight 109.545, kg, Start date: 10/03/16 21:00:00 CDT, Duration: 30 day, Stop date: 11/02/16 9:00:00 CDT Notes: (Same as: Pepcid) Start Date: 10/03/16 Stop Date: 10/07/16 Status: Discontinued famotidine 20 mg, Route: PO, Drug form: TAB, Daily, Dosing Weight 109.545, kg, Priority: NO W, Start date: 10/07/16 14:05:00 CDT, Duration: 30 day, Stop date: 11/06/16 9:00 :00 CDT Start Date: 10/07/16 Stop Date: 10/07/16 Status: Deleted famotidine 20 mg, 1 tab, Route: PO, Drug form: TAB, Daily, Priority: NOW, Start date: 10/07 14:22:00 CDT, Duration: 30 day, Stop date: 11/06/16 9:00:00 CDT Notes: (Same as: Pepcid) Start Date: 10/07/16 Stop Date: 10/07/16 Status: Discontinued fentaNYL (ANES) Route: IV, Drug form: INJ, ONCE, Stop date: 10/03/16 13:59:00 CDT Start Date: 10/03/16 Stop Date: 10/03/16 Status: Completed Flagyl 500 mg, 100 mL, Route: IVPB, Drug form: INJ, ABXQ8H, Dosing Weight 109.545, kg, Start date: 10/02/16 6:00:00 CDT, Duration: 10 day, Stop date: 10/11/16 22:00:00 CDT, ABX Indication: Intra-abdominal Infection Notes: (Same as: Flagyl) Avoid alcohol. Start Date: 10/02/16 Stop Date: 10/05/16 Status: Discontinued glucagon 1 mg, Route: IM, Drug form: PDR/INJ, PRN, Dosing Weight 109.545, kg, PRN Blood G lucose Results, Start date: 10/02/16 5:59:00 CDT, Duration: 30 day, Stop date: 0 11/01/16 5:58:00 CDT Start Date: 10/02/16 Stop Date: 10/02/16 Status: Discontinued glucagon 1 mg, Route: INJ, Drug form: PDR/INJ, PRN, PRN Blood Glucose Results, Start date : 10/02/16 15:36:00 CDT, Duration: 30 day, Stop date: 11/01/16 15:35:00 CDT Start Date: 10/02/16 Stop Date: 10/07/16 Status: Discontinued glucagon 1 mg, Route: IM, Drug form: PDR/INJ, PRN, Dosing Weight 109.545, kg, PRN Blood G lucose Results, Start date: 10/04/16 20:42:00 CDT, Duration: 30 day, Stop date: 11/03/16 20:41:00 CDT Start Date: 10/04/16 Stop Date: 10/06/16 Status: Discontinued glycopyrrolate (ANES) Route: IV, Drug form: INJ, ONCE, Stop date: 10/03/16 14:22:00 CDT Start Date: 10/03/16 Stop Date: 10/03/16 Status: Completed heparin 5,000 unit, 1 mL, Route: SUB-Q, Drug form: INJ, Q12H, Dosing Weight 109.545, kg, Start date: 10/02/16 9:00:00 CDT, Duration: 30 day, Stop date: 10/31/16 21:00:00 CDT Notes: porcine heparin Start Date: 10/02/16 Stop Date: 10/05/16 Status: Discontinued hydrALAZINE 20 mg, 1 mL, Route: IVP, Drug form: INJ, ONCE, Dosing Weight 109.545, kg, Priori ty: STAT, Start date: 10/02/16 2:02:00 CDT, Stop date: 10/02/16 2:02:00 CDT Notes: (Same as: Apresoline)Push over 5 minutes Start Date: 10/02/16 Stop Date: 10/02/16 Status: Completed hydrALAZINE 20 mg, 1 mL, Route: IVP, Drug form: INJ, Q4H, Dosing Weight 109.545, kg, PRN See Nurse's Notes, Start date: 10/02/16 5:46:00 CDT, Duration: 30 day, Stop date: 0 11/01/16 5:45:00 CDT, systolic > 160 Notes: (Same as: Apresoline)Push over 5 minutes Start Date: 10/02/16 Stop Date: 10/07/16 Status: Discontinued hydrALAZINE 20 mg, Route: IVP, ONCE, Dosing Weight 109.545, kg, Priority: STAT, Start date: 10/02/16 4:19:00 CDT, Stop date: 10/02/16 4:19:00 CDT Start Date: 10/02/16 Stop Date: 10/02/16 Status: Completed insulin aspart 10 unit, 0.1 mL, Route: SUB-Q, Drug form: SOLN, Bedtime, Dosing Weight 109.545, kg, PRN Blood Glucose Results, Start date: 10/02/16 5:59:00 CDT, Duration: 30 da y, Stop date: 11/01/16 5:58:00 CDT Notes: Roll in palms of hands gently; Do not shake vigorously. (Same as: Jarrod Angulo)"single patient use only"WASTE: F/P - Black; E - Municipal Trash Bin Stable f or 28 days at room temperature.Expires in days from Date Start Date: 10/02/16 Stop Date: 10/02/16 Status: Discontinued insulin aspart 6 unit, 0.06 mL, Route: SUB-Q, Drug form: SOLN, Bedtime, Dosing Weight 109.545, kg, PRN Blood Glucose Results, Start date: 10/02/16 5:59:00 CDT, Duration: 30 da y, Stop date: 11/01/16 5:58:00 CDT Notes: Roll in palms of hands gently; Do not shake vigorously. (Same as: Jarrod Angulo)"single patient use only"WASTE: F/P - Black; E - Municipal Trash Bin Stable f or 28 days at room temperature.Expires in days from Date Start Date: 10/02/16 Stop Date: 10/02/16 Status: Discontinued insulin aspart 8 unit, 0.08 mL, Route: SUB-Q, Drug form: SOLN, Bedtime, Dosing Weight 109.545, kg, PRN Blood Glucose Results, Start date: 10/02/16 5:59:00 CDT, Duration: 30 da y, Stop date: 11/01/16 5:58:00 CDT Notes: Roll in palms of hands gently; Do not shake vigorously. (Same as: Jarrod Angulo)"single patient use only"WASTE: F/P - Black; E - Municipal Trash Bin Stable f or 28 days at room temperature.Expires in days from Date Start Date: 10/02/16 Stop Date: 10/02/16 Status: Discontinued insulin aspart 4 unit, 0.04 mL, Route: SUB-Q, Drug form: SOLN, Bedtime, Dosing Weight 109.545, kg, PRN Blood Glucose Results, Start date: 10/02/16 5:59:00 CDT, Duration: 30 da y, Stop date: 11/01/16 5:58:00 CDT Notes: Roll in palms of hands gently; Do not shake vigorously. (Same as: Jarrod Angulo)"single patient use only"WASTE: F/P - Black; E - Municipal Trash Bin Stable f or 28 days at room temperature.Expires in days from Date Start Date: 10/02/16 Stop Date: 10/02/16 Status: Discontinued insulin aspart 12 unit, 0.12 mL, Route: SUB-Q, Drug form: SOLN, TID-Before Meals, Dosing Weight 109.545, kg, PRN Blood Glucose Results, Start date: 10/02/16 5:59:00 CDT, Durat ion: 30 day, Stop date: 11/01/16 5:58:00 CDT Notes: Roll in palms of hands gently; Do not shake vigorously. (Same as: Jarrod Angulo)"single patient use only"WASTE: F/P - Black; E - Municipal Trash Bin Stable f or 28 days at room temperature.Expires in days from Date Start Date: 10/02/16 Stop Date: 10/02/16 Status: Discontinued insulin aspart 15 unit, 0.15 mL, Route: SUB-Q, Drug form: SOLN, TID-Before Meals, Dosing Weight 109.545, kg, PRN Blood Glucose Results, Start date: 10/02/16 5:59:00 CDT, Durat ion: 30 day, Stop date: 11/01/16 5:58:00 CDT Notes: Roll in palms of hands gently; Do not shake vigorously. (Same as: Jarrod Angulo)"single patient use only"WASTE: F/P - Black; E - Municipal Trash Bin Stable f or 28 days at room temperature.Expires in days from Date Start Date: 10/02/16 Stop Date: 10/02/16 Status: Discontinued insulin aspart 9 unit, 0.09 mL, Route: SUB-Q, Drug form: SOLN, TID-Before Meals, Dosing Weight 109.545, kg, PRN Blood Glucose Results, Start date: 10/02/16 5:59:00 CDT, Durati on: 30 day, Stop date: 11/01/16 5:58:00 CDT Notes: Roll in palms of hands gently; Do not shake vigorously. (Same as: Jarrod Angulo)"single patient use only"WASTE: F/P - Black; E - Municipal Trash Bin Stable f or 28 days at room temperature.Expires in days from Date Start Date: 10/02/16 Stop Date: 10/02/16 Status: Discontinued insulin aspart 6 unit, 0.06 mL, Route: SUB-Q, Drug form: SOLN, TID-Before Meals, Dosing Weight 109.545, kg, PRN Blood Glucose Results, Start date: 10/02/16 5:59:00 CDT, Durati on: 30 day, Stop date: 11/01/16 5:58:00 CDT Notes: Roll in palms of hands gently; Do not shake vigorously. (Same as: Jarrod Angulo)"single patient use only"WASTE: F/P - Black; E - Municipal Trash Bin Stable f or 28 days at room temperature.Expires in days from Date Start Date: 10/02/16 Stop Date: 10/02/16 Status: Discontinued insulin aspart 3 unit, 0.03 mL, Route: SUB-Q, Drug form: SOLN, TID-Before Meals, Dosing Weight 109.545, kg, PRN Blood Glucose Results, Start date: 10/02/16 5:59:00 CDT, Durati on: 30 day, Stop date: 11/01/16 5:58:00 CDT Notes: Roll in palms of hands gently; Do not shake vigorously. (Same as: Jarrod Angulo)"single patient use only"WASTE: F/P - Black; E - Municipal Trash Bin Stable f or 28 days at room temperature.Expires in days from Date Start Date: 10/02/16 Stop Date: 10/02/16 Status: Discontinued insulin aspart 5 unit, 0.05 mL, Route: SUB-Q, Drug form: SOLN, Sliding Scale, PRN Blood Glucose Results, Start date: 10/02/16 15:34:00 CDT, Duration: 30 day, Stop date: 15:33:00 CDT Notes: Roll in palms of hands gently; Do not shake vigorously. (Same as: NovoDONG Angulo)"single patient use only"WASTE: F/P - Black; E - Municipal Trash Bin Stable f or 28 days at room temperature.Expires in days from Date Start Date: 10/02/16 Stop Date: 10/06/16 Status: Discontinued insulin aspart 10 unit, 0.1 mL, Route: SUB-Q, Drug form: SOLN, Sliding Scale, PRN Blood Glucose Results, Start date: 10/02/16 15:36:00 CDT, Duration: 30 day, Stop date: 15:35:00 CDT Notes: Roll in palms of hands gently; Do not shake vigorously. (Same as: Jarrod Angulo)"single patient use only"WASTE: F/P - Black; E - Municipal Trash Bin Stable f or 28 days at room temperature.Expires in days from Date Start Date: 10/02/16 Stop Date: 10/06/16 Status: Discontinued insulin aspart 7 unit, 0.07 mL, Route: SUB-Q, Drug form: SOLN, Sliding Scale, PRN Blood Glucose Results, Start date: 10/02/16 15:36:00 CDT, Duration: 30 day, Stop date: 15:35:00 CDT Notes: Roll in palms of hands gently; Do not shake vigorously. (Same as: Jarrod Angulo)"single patient use only"WASTE: F/P - Black; E - Municipal Trash Bin Stable f or 28 days at room temperature.Expires in days from Date Start Date: 10/02/16 Stop Date: 10/06/16 Status: Discontinued insulin aspart 6 unit, 0.06 mL, Route: SUB-Q, Drug form: SOLN, Sliding Scale, PRN Blood Glucose Results, Start date: 10/02/16 15:36:00 CDT, Duration: 30 day, Stop date: 15:35:00 CDT Notes: Roll in palms of hands gently; Do not shake vigorously. (Same as: Jarrod Angulo)"single patient use only"WASTE: F/P - Black; E - Municipal Trash Bin Stable f or 28 days at room temperature.Expires in days from Date Start Date: 10/02/16 Stop Date: 10/06/16 Status: Discontinued insulin aspart 4 unit, 0.04 mL, Route: SUB-Q, Drug form: SOLN, TID-Before Meals, Dosing Weight 109.545, kg, PRN Blood Glucose Results, Start date: 10/04/16 20:42:00 CDT, Durat ion: 30 day, Stop date: 11/03/16 20:41:00 CDT Notes: Roll in palms of hands gently; Do not shake vigorously. (Same as: Jarrod Angulo)"single patient use only"WASTE: F/P - Black; E - Municipal Trash Bin Stable f or 28 days at room temperature.Expires in days from Date Start Date: 10/04/16 Stop Date: 10/07/16 Status: Discontinued insulin aspart 2 unit, 0.02 mL, Route: SUB-Q, Drug form: SOLN, TID-Before Meals, Dosing Weight 109.545, kg, PRN Blood Glucose Results, Start date: 10/04/16 20:42:00 CDT, Durat ion: 30 day, Stop date: 11/03/16 20:41:00 CDT Notes: Roll in palms of hands gently; Do not shake vigorously. (Same as: Jarrod Angulo)"single patient use only"WASTE: F/P - Black; E - Municipal Trash Bin Stable f or 28 days at room temperature.Expires in days from Date Start Date: 10/04/16 Stop Date: 10/07/16 Status: Discontinued insulin aspart 5 unit, 0.05 mL, Route: SUB-Q, Drug form: SOLN, TID-Before Meals, Dosing Weight 109.545, kg, PRN Blood Glucose Results, Start date: 10/04/16 20:42:00 CDT, Durat ion: 30 day, Stop date: 11/03/16 20:41:00 CDT Notes: Roll in palms of hands gently; Do not shake vigorously. (Same as: Jarrod Angulo)"single patient use only"WASTE: F/P - Black; E - Municipal Trash Bin Stable f or 28 days at room temperature.Expires in days from Date Start Date: 10/04/16 Stop Date: 10/07/16 Status: Discontinued insulin aspart 3 unit, 0.03 mL, Route: SUB-Q, Drug form: SOLN, TID-Before Meals, Dosing Weight 109.545, kg, PRN Blood Glucose Results, Start date: 10/04/16 20:42:00 CDT, Durat ion: 30 day, Stop date: 11/03/16 20:41:00 CDT Notes: Roll in palms of hands gently; Do not shake vigorously. (Same as: Jarrod Angulo)"single patient use only"WASTE: F/P - Black; E - Municipal Trash Bin Stable f or 28 days at room temperature.Expires in days from Date Start Date: 10/04/16 Stop Date: 10/07/16 Status: Discontinued insulin aspart 1 unit, 0.01 mL, Route: SUB-Q, Drug form: SOLN, TID-Before Meals, Dosing Weight 109.545, kg, PRN Blood Glucose Results, Start date: 10/04/16 20:42:00 CDT, Durat ion: 30 day, Stop date: 11/03/16 20:41:00 CDT Notes: Roll in palms of hands gently; Do not shake vigorously. (Same as: Jarrod Angulo)"single patient use only"WASTE: F/P - Black; E - Municipal Trash Bin Stable f or 28 days at room temperature.Expires in days from Date Start Date: 10/04/16 Stop Date: 10/07/16 Status: Discontinued insulin aspart 3 unit, 0.03 mL, Route: SUB-Q, Drug form: SOLN, Bedtime, Dosing Weight 109.545, kg, PRN Blood Glucose Results, Start date: 10/04/16 20:42:00 CDT, Duration: 30 d ay, Stop date: 11/03/16 20:41:00 CDT Notes: Roll in palms of hands gently; Do not shake vigorously. (Same as: Jarrod Angulo)"single patient use only"WASTE: F/P - Black; E - Municipal Trash Bin Stable f or 28 days at room temperature.Expires in days from Date Start Date: 10/04/16 Stop Date: 10/07/16 Status: Discontinued insulin aspart 4 unit, 0.04 mL, Route: SUB-Q, Drug form: SOLN, Bedtime, Dosing Weight 109.545, kg, PRN Blood Glucose Results, Start date: 10/04/16 20:42:00 CDT, Duration: 30 d ay, Stop date: 11/03/16 20:41:00 CDT Notes: Roll in palms of hands gently; Do not shake vigorously. (Same as: Jarrod Angulo)"single patient use only"WASTE: F/P - Black; E - Municipal Trash Bin Stable f or 28 days at room temperature.Expires in days from Date Start Date: 10/04/16 Stop Date: 10/07/16 Status: Discontinued insulin aspart 2 unit, 0.02 mL, Route: SUB-Q, Drug form: SOLN, Bedtime, Dosing Weight 109.545, kg, PRN Blood Glucose Results, Start date: 10/04/16 20:42:00 CDT, Duration: 30 d ay, Stop date: 11/03/16 20:41:00 CDT Notes: Roll in palms of hands gently; Do not shake vigorously. (Same as: Jarrod Angulo)"single patient use only"WASTE: F/P - Black; E - Municipal Trash Bin Stable f or 28 days at room temperature.Expires in days from Date Start Date: 10/04/16 Stop Date: 10/07/16 Status: Discontinued insulin aspart 1 unit, 0.01 mL, Route: SUB-Q, Drug form: SOLN, Bedtime, Dosing Weight 109.545, kg, PRN Blood Glucose Results, Start date: 10/04/16 20:42:00 CDT, Duration: 30 d ay, Stop date: 11/03/16 20:41:00 CDT Notes: Roll in palms of hands gently; Do not shake vigorously. (Same as: NovoLO G)"single patient use only"WASTE: F/P - Black; E - Municipal Trash Bin Stable f or 28 days at room temperature.Expires in days from Date Start Date: 10/04/16 Stop Date: 10/07/16 Status: Discontinued Insulin regular 100 unit + sodium chloride 0.9% INJ 99 mL 99 mL, Rate: titrate, Route: IV, Dosing Weight 109.545 kg, Total Volume: 100, St art date: 10/02/16 14:18:00 CDT, Duration: 30 day, Stop date: 11/01/16 14:17:00 CDT Notes: (Same as: Humulin R) Roll in palms of hands gently; Do not shake vigorou sly. "single patient use only"(Restricted to patients requiring a dose > 60 units)WASTE: F/P - Black; E - Municipal Trash Bin Stable for 28 days at room temperatureExpires in days from Date Start Date: 10/02/16 Stop Date: 10/02/16 Status: Discontinued ketOROLAC 15 mg, 1 mL, Route: IV, Drug form: INJ, Q6H, Dosing Weight 109.545, kg, Start da te: 10/03/16 18:00:00 CDT, Duration: 4 day, Stop date: 10/07/16 12:00:00 CDT Notes: (Same as:Toradol) IV bolus must be given >15 seconds. Give IM administration slowly and deeply into the muscle. Not for use > 4 days. Start Date: 10/03/16 Stop Date: 10/04/16 Status: Discontinued labetalol 20 mg, Route: IVP, Drug form: INJ, Q12H, Dosing Weight 109.545, kg, Start date: 10/03/16 21:00:00 CDT, Duration: 30 day, Stop date: 11/02/16 9:00:00 CDT Start Date: 10/03/16 Stop Date: 10/03/16 Status: Canceled labetalol 20 mg, 4 mL, Route: IVP, Drug form: INJ, ONCE, Dosing Weight 109.545, kg, Priori ty: STAT, Start date: 10/02/16 8:01:00 CDT, Stop date: 10/02/16 8:01:00 CDT Notes: (Same as: Normodyne, Trandate)Push over 2 minutes Give bolus over 2-3 mi nutes. Start Date: 10/02/16 Stop Date: 10/02/16 Status: Completed labetalol 20 mg, 4 mL, Route: IVP, Drug form: INJ, ONCE, Dosing Weight 109.545, kg, Start date: 10/02/16 5:32:00 CDT, Stop date: 10/02/16 5:32:00 CDT Notes: (Same as: Normodyne, Trandate)Push over 2 minutes Give bolus over 2-3 mi nutes. Start Date: 10/02/16 Stop Date: 10/02/16 Status: Completed Lasix 40 mg, 4 mL, Route: IVP, Drug form: INJ, Q12H, Dosing Weight 109.545, kg, 2, Bessie ority: NOW, Start date: 10/02/16 15:51:00 CDT, Duration: 2 doses or times, Stop date: 10/02/16 21:00:00 CDT Notes: (Same as: Lasix) MEDICATION WASTE Product Size: 40 mgProduct Was savana: ___ mg Start Date: 10/02/16 Stop Date: 10/02/16 Status: Completed Lasix 20 mg, 2 mL, Route: IVP, Drug form: INJ, BID Diuretic, Dosing Weight 109.545, kg , Priority: NOW, Start date: 10/03/16 9:44:00 CDT, Duration: 30 day, Stop date: 11/02/16 8:00:00 CDT Notes: (Same as: Lasix) Start Date: 10/03/16 Stop Date: 10/04/16 Status: Discontinued Lasix 20 mg oral tablet 20 mg, Route: PO, Drug form: TAB, BID, Dosing Weight 109.545, kg, Start date: 9:00:00 CDT, Duration: 30 day, Stop date: 11/02/16 17:00:00 CDT Start Date: 10/04/16 Stop Date: 10/04/16 Status: Discontinued Lasix 20 mg oral tablet 20 mg, 1 tab, Route: PO, Drug form: TAB, BID, Dosing Weight 109.545, kg, Start d ate: 10/04/16 17:00:00 CDT, Duration: 30 day, Stop date: 11/03/16 9:00:00 CDT Notes: (Same as: Lasix) May cause GI upset. Give with food or milk. Start Date: 10/04/16 Stop Date: 10/07/16 Status: Discontinued Lasix 20 mg oral tablet 20 mg, Route: PO, Drug form: TAB, Daily, Dosing Weight 109.545, kg, Start date: 10/04/16 9:00:00 CDT, Duration: 30 day, Stop date: 11/02/16 9:00:00 CDT Start Date: 10/04/16 Stop Date: 10/04/16 Status: Canceled Lasix 20 mg oral tablet 20 mg = 1 tab, PO, BID, 0 Refill(s) Start Date: 10/07/16 Stop Date: 10/07/16 Status: Discontinued Lasix 20 mg oral tablet 20 mg = 1 tab, PO, BID, # 60 tab, 0 Refill(s) Start Date: 10/07/16 Status: Ordered Levemir 15 unit, 0.15 mL, Route: SUB-Q, Drug form: INJ, Bedtime, Dosing Weight 109.545, kg, Start date: 10/02/16 21:00:00 CDT, Duration: 30 day, Stop date: 10/31/16 21: 00:00 CDT Notes: Same as LevemirDo not hold insulin without contacting prescriberWASTE: F/ P - Black; E - Municipal Trash Bin "single patient use only" Start Date: 10/02/16 Stop Date: 10/02/16 Status: Canceled lidocaine (ANES) Route: IV, Drug form: INJ, ONCE, Stop date: 10/03/16 13:54:00 CDT Start Date: 10/03/16 Stop Date: 10/03/16 Status: Completed Lopressor 5 mg, 5 mL, Route: IVP, Drug form: INJ, Q6H, Dosing Weight 109.545, kg, Start da te: 10/02/16 18:00:00 CDT, Duration: 30 day, Stop date: 11/01/16 12:00:00 CDT Notes: (Same as: Lopressor)Push over 2 minutes Start Date: 10/02/16 Stop Date: 10/03/16 Status: Discontinued Lovenox 40 mg, 0.4 mL, Route: SUB-Q, Drug form: INJ, [id number], Dosing Weight 109.545, kg , Start date: 10/05/16 13:00:00 CDT, Duration: 30 day, Stop date: 11/03/16 13:00 :00 CDT Notes: (Same as: Lovenox) Start Date: 10/05/16 Stop Date: 10/07/16 Status: Discontinued LR 1000 mL INJ (ANES) Route: IV, Total Volume: 1,000, Start date: 10/03/16 13:09:00 CDT, Stop date: 14:09:00 CDT Start Date: 10/03/16 Stop Date: 10/03/16 Status: Completed Maalox Advanced Regular Strength SUSP 30 mL, Route: PO, Drug Form: SUSP, Dosing Weight 109.545, kg, QID, PRN See Nurse 's Notes, Start date: 10/02/16 5:46:00 CDT, Duration: 30 day, Stop date: 7 5:45:00 CDT, Indigestion, heartburn Notes: (aluminum hydroxide-magnesium hyd-simethicone [id number]/5ml 30 ml ud S US) Start Date: 10/02/16 Stop Date: 10/07/16 Status: Discontinued magnesium sulfate 2 gm, 50 mL, Route: IVPB, Drug form: INJ, ONCE, Dosing Weight 109.545, kg, Total dose = 2 gm, Start date: 10/02/16 10:57:00 CDT, Duration: 1 doses or times, Stop date: 10/02/16 10:57:00 CDT Notes: WASTE: F/P - Sink; E - Municipal Trash Bin Start Date: 10/02/16 Stop Date: 10/02/16 Status: Completed magnesium sulfate 2 gm, 50 mL, Route: IVPB, Drug form: INJ, ONCE, Dosing Weight 109.545, kg, Total dose = 2 gm, Priority: NOW, Start date: 10/02/16 20:46:00 CDT, Duration: 1 doses or times, Stop date: 10/02/16 20:46:00 CDT Notes: WASTE: F/P - Sink; E - Municipal Trash Bin Start Date: 10/02/16 Stop Date: 10/02/16 Status: Completed meropenem + sodium chloride 0.9% INJ 100 mL 500 mg, Route: IVPB, [id number], Dosing Weight 109.545, kg, CrCL= 26 -49 ml/min, Ext ended infusion, infuse over 3 hours, Priority: STAT, Start date: 10/02/16 15:19 :00 CDT, Duration: 7 day, Stop date: 10/09/16 7:19:00 CDT, ABX Indication: Urina ry Tract In... Notes: Same as Merrem MEDICATION WASTE Product Size: 500 mgProduct Wast ed: ___ mg Start Date: 10/02/16 Stop Date: 10/04/16 Status: Discontinued metoprolol 5 mg/5 ml INJ 5 mg, 5 mL, Route: IVP, Drug form: INJ, Q6H, Dosing Weight 109.545, kg, Start da te: 10/03/16 12:00:00 CDT, Duration: 30 day, Stop date: 11/02/16 6:00:00 CDT Notes: (Same as: Lopressor)Push over 2 minutes Start Date: 10/03/16 Stop Date: 10/04/16 Status: Discontinued metroNIDAZOLE (ANES) (ANES) Route: IV, Drug form: INJ, Start date: 10/03/16 13:46:00 CDT, Stop date: 7 14:46:00 CDT Start Date: 10/03/16 Stop Date: 10/03/16 Status: Completed midazolam (ANES) Route: IV, Drug form: SOLN, ONCE, Stop date: 10/03/16 13:59:00 CDT Start Date: 10/03/16 Stop Date: 10/03/16 Status: Completed morphine Sulfate 1 mg, 0.5 mL, Route: IVP, Drug form: INJ, Q2H, Dosing Weight 109.545, kg, PRN Pa in Score 1-3, Start date: 10/03/16 14:19:00 CDT, Duration: 30 day, Stop date: 14:18:00 CDT Notes: (Same as:MORPhine Sulfate) Start Date: 10/03/16 Stop Date: 10/05/16 Status: Discontinued morphine Sulfate 2 mg, 1 mL, Route: IVP, Drug form: INJ, Q2H, Dosing Weight 109.545, kg, PRN Pain Score 4-6, Start date: 10/03/16 14:19:00 CDT, Duration: 30 day, Stop date: 10/22 06/10 14:18:00 CDT Notes: (Same as:MORPhine Sulfate) Start Date: 10/03/16 Stop Date: 10/05/16 Status: Discontinued morphine Sulfate 4 mg, 1 mL, Route: IVP, Drug form: INJ, ONCE, Dosing Weight 109.545, kg, Priorit y: STAT, Start date: 10/02/16 2:02:00 CDT, Stop date: 10/02/16 2:02:00 CDT Notes: (Same as:MORPhine Sulfate) Start Date: 10/02/16 Stop Date: 10/02/16 Status: Completed morphine Sulfate 2 mg, 1 mL, Route: IVP, Drug form: INJ, Q4H, Dosing Weight 109.545, kg, PRN Pain Score 7-10, Start date: 10/05/16 10:33:00 CDT, Duration: 30 day, Stop date: 10:32:00 CDT Notes: (Same as:MORPhine Sulfate) Start Date: 10/05/16 Stop Date: 10/05/16 Status: Discontinued neostigmine (ANES) Route: IV, Drug form: INJ, ONCE, Stop date: 10/03/16 14:22:00 CDT Start Date: 10/03/16 Stop Date: 10/03/16 Status: Completed niCARdipine 40 mg/ NS 200 ml IV Soln (premix) 40 mg 40 mg, 200 mL, Rate: Titrate, Start Dose: 5 mg/hr, Titration: 2.5 mg/hr every 15 minutes, Goal(s): titrate for SBP<160, Max Dose: 15 mg/hr, Route: IV, Dosing Weight 109.545 kg, Total Volume: 200, Start date: 10/02/16 16:40:00 CDT, Duration: 30 day, St... Notes: Same as: CardeneConcentration: (0.2 mg /1 ml ) Start Date: 10/02/16 Stop Date: 10/04/16 Status: Discontinued NIFEdipine 90 mg oral tablet, extended release 90 mg, Route: PO, Drug form: ERTAB, Daily, Dosing Weight 109.545, kg, Start date : 10/05/16 9:00:00 CDT, Duration: 30 day, Stop date: 11/03/16 9:00:00 CDT Start Date: 10/05/16 Stop Date: 10/04/16 Status: Canceled NIFEdipine 90 mg oral tablet, extended release 90 mg, 1 tab, Route: PO, Drug form: ERTAB, Daily, Dosing Weight 109.545, kg, Sta rt date: 10/05/16 21:00:00 CDT, Duration: 30 day, Stop date: 11/04/16 9:00:00 CD T Notes: (Same as: Adalat CC,Procardia XL)"Do Not Crush" "Avoid grapefruit and gr apefruit juice" Start Date: 10/05/16 Stop Date: 10/07/16 Status: Discontinued nitroglycerin 2% topical ointment 1 inch, Route: TOP, Drug Form: OINT, Dosing Weight 109.545, kg, TID, STAT, Start date: 10/02/16 5:55:00 CDT, Duration: 30 day, Stop date: 10/31/16 17:00:00 CDT Notes: 1 gram is approximately 1 inch of nitroglycerin ointment (20 mg NTG pe r gram) (Same as:Nitro-Bid) Start Date: 10/02/16 Stop Date: 10/02/16 Status: Discontinued [place] 10/325 oral tablet 2 tab, Route: PO, Drug Form: TAB, Dosing Weight 109.545, kg, Q6H, Start date: 12:00:00 CDT, Duration: 30 day, Stop date: 11/03/16 6:00:00 CDT Notes: Do not exceed 4gm/day of acetaminophen. (Same as: [place] 325/10) Start Date: 10/04/16 Stop Date: 10/05/16 Status: Discontinued [place] 10/325 oral tablet 1 tab, Route: PO, Drug Form: TAB, Dosing Weight 109.545, kg, BID, Start date: 9:00:00 CDT, Duration: 30 day, Stop date: 11/05/16 17:00:00 CDT Notes: Do not exceed 4gm/day of acetaminophen. (Same as: [place] 325/10) Start Date: 10/07/16 Stop Date: 10/07/16 Status: Discontinued [place] 10/325 oral tablet 1 tab, Route: PO, Drug Form: TAB, Dosing Weight 109.545, kg, TID, Start date: 13:00:00 CDT, Duration: 30 day, Stop date: 11/04/16 9:00:00 CDT Notes: Do not exceed 4gm/day of acetaminophen. (Same as: [place] 325/10) Start Date: 10/05/16 Stop Date: 10/07/16 Status: Discontinued [place] 5/325 oral tablet 1 tab, Route: PO, Drug Form: TAB, Dosing Weight 109.545, kg, Q4H, PRN Pain Score 1-3, Start date: 10/03/16 14:19:00 CDT, Duration: 30 day, Stop date: 11/02/16 1 4:18:00 CDT Notes: (Same as: Pl[place] 325/5) Do not exceed 4gm/day of acetaminophen. Start Date: 10/03/16 Stop Date: 10/07/16 Status: Discontinued [place] 7.5/325 oral tablet 1 tab, Route: PO, Drug Form: TAB, Dosing Weight 109.545, kg, Q6H, PRN Pain Score 1-5, Start date: 10/03/16 14:19:00 CDT, Duration: 30 day, Stop date: 11/02/16 1 4:18:00 CDT Notes: Same as [place] 325-7.5mg Do not exceed 4gm/day of acetaminophen. Start Date: 10/03/16 Stop Date: 10/07/16 Status: Discontinued normal saline 0.9% IV 1000 mL 1,000 mL, Rate: 1,000 ml/hr, Infuse over: 1 hr, Route: IV, Dosing Weight 109.545 kg, Total Volume: 1,000, 500 ML, Priority: NOW, Start date: 10/04/16 15:19:00 C DT, Duration: 30 day, Stop date: 11/03/16 15:18:00 CDT Start Date: 10/04/16 Stop Date: 10/04/16 Status: Deleted NS (Bolus) IV 1,000 mL, 500 ml/hr, Infuse Over: 2 hr, Route: IV, 1,000, Drug form: INJ, ONCE, Priority: STAT, Dosing Weight 109.545 kg, Start date: 10/04/16 7:04:00 CDT, Dura tion: 1 doses or times, Stop date: 10/04/16 7:04:00 CDT Start Date: 10/04/16 Stop Date: 10/04/16 Status: Completed ondansetron 4 mg, 2 mL, Route: IVP, Drug form: INJ, Q4H, Dosing Weight 109.545, kg, PRN Naus ea & Vomiting, Start date: 10/03/16 14:19:00 CDT, Duration: 30 day, Stop date: 11/02/16 14:18:00 CDT Notes: (Same as: Luis) MEDICATION WASTE Product Size: 4 mgProduct Was savana: ___ mg Start Date: 10/03/16 Stop Date: 10/07/16 Status: Discontinued ondansetron 4 mg, 2 mL, Route: IVP, Drug form: INJ, Q4H, Dosing Weight 109.545, kg, PRN Naus ea & Vomiting, Start date: 10/02/16 5:46:00 CDT, Duration: 30 day, Stop date: 11/01/16 5:45:00 CDT Notes: (Same as: Luis) MEDICATION WASTE Product Size: 4 mgProduct Was savana: ___ mg Start Date: 10/02/16 Stop Date: 10/06/16 Status: Discontinued ondansetron 4 mg, 2 mL, Route: IVP, Drug form: INJ, ONCE, Dosing Weight 109.545, kg, Priorit y: STAT, Start date: 10/02/16 2:02:00 CDT, Stop date: 10/02/16 2:02:00 CDT Notes: (Same as: Zofran) MEDICATION WASTE Product Size: 4 mgProduct Was savana: ___ mg Start Date: 10/02/16 Stop Date: 10/02/16 Status: Completed ondansetron (ANES) Route: IV, Drug form: INJ, ONCE, Stop date: 10/03/16 13:54:00 CDT Start Date: 10/03/16 Stop Date: 10/03/16 Status: Completed ondansetron 4 mg oral tablet, disintegrating 4 mg, 1 tab, Route: PO, Drug form: TABDIS, Q4H, Dosing Weight 109.545, kg, PRN N ausea, Start date: 10/03/16 14:19:00 CDT, Duration: 30 day, Stop date: 11/02/16 14:18:00 CDT Notes: (Same as: Zofran ODT) Start Date: 10/03/16 Stop Date: 10/07/16 Status: Discontinued phenylephrine (ANES) Route: IV, Drug form: INJ, ONCE, Stop date: 10/03/16 14:22:00 CDT Start Date: 10/03/16 Stop Date: 10/03/16 Status: Completed propofol (ANES) Route: IV, Drug form: INJ, ONCE, Stop date: 10/03/16 13:59:00 CDT Start Date: 10/03/16 Stop Date: 10/03/16 Status: Completed Protonix 20 mg, Route: IVP, Drug form: INJ, BID, Dosing Weight 109.545, kg, 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 (Same as: Protonix) Start Date: 10/03/16 Stop Date: 10/04/16 Status: Discontinued Robitussin 100 mg/5 mL oral liquid 200 mg, 10 mL, Route: PO, Drug form: SYRP, Q4H, Dosing Weight 109.545, kg, PRN S ee Nurse's Notes, Start date: 10/02/16 5:46:00 CDT, Duration: 30 day, Stop date: 11/01/16 5:45:00 CDT, as needed for congestion, cough Notes: (Same as: Robitussin) Start Date: 10/02/16 Stop Date: 10/07/16 Status: Discontinued rocuronium (ANES) Route: IV, Drug form: INJ, ONCE, Stop date: 10/03/16 13:59:00 CDT Start Date: 10/03/16 Stop Date: 10/03/16 Status: Completed Saline Flush 0.9% 10 ml, Route: IVP, Drug Form: INJ, Dosing Weight 109.545, kg, Q12H, Start date: 10/02/16 21:00:00 CDT, Duration: 30 day, Stop date: 11/01/16 9:00:00 CDT Notes: (Same as: BD Posiflush) Start Date: 10/02/16 Stop Date: 10/07/16 Status: Discontinued Saline Flush 0.9% 10 ml, Route: IVP, Drug Form: INJ, Dosing Weight 109.545, kg, PRN, PRN Line Flus h, Start date: 10/02/16 14:42:00 CDT, Duration: 30 day, Stop date: 11/01/16 14:4 1:00 CDT Notes: (Same as: BD Posiflush) Start Date: 10/02/16 Stop Date: 10/07/16 Status: Discontinued Saline Flush 0.9% 10 mL, Route: IVP, Drug Form: INJ, Dosing Weight 109.545, kg, PRN, PRN Line Flus h, Start date: 10/02/16 2:02:00 CDT, Duration: 30 day, Stop date: 11/01/16 2:01: 00 CDT Notes: (Same as: BD Posiflush) Start Date: 10/02/16 Stop Date: 10/02/16 Status: Discontinued SEROquel 25 mg, 1 tab, Route: PO, Drug form: TAB, Bedtime, Dosing Weight 109.545, kg, Sta rt date: 10/05/16 21:00:00 CDT, Duration: 30 day, Stop date: 11/03/16 21:00:00 C DT Notes: (Same as: SEROquel) Start Date: 10/05/16 Stop Date: 10/07/16 Status: Discontinued sertraline 100 mg, 1 tab, Route: PO, Drug form: TAB, Daily, Dosing Weight 109.545, kg, Star t date: 10/05/16 9:00:00 CDT, Stop date: 11/03/16 9:00:00 CDT Notes: (Same as: Zoloft) Start Date: 10/05/16 Stop Date: 10/07/16 Status: Discontinued sertraline 100 mg oral tablet 100 mg = 1 tab, PO, Daily, # 30 tab, 0 Refill(s) Start Date: 10/07/16 Status: Ordered Sodium Chloride 0.9% (Bolus) IV 1,000 mL, 2,000 ml/hr, Infuse Over: 30 minutes, Route: IV, 1,000, Drug form: INJ , ONCE, Priority: STAT, Dosing Weight 109.545 kg, Start date: 10/02/16 2:02:00 C DT, Duration: 1 doses or times, Stop date: 10/02/16 2:02:00 CDT Start Date: 10/02/16 Stop Date: 10/02/16 Status: Completed sodium chloride 0.9% 1000 ml INJ 1,000 mL 1,000 mL, Rate: 100 ml/hr, Infuse over: 10 hr, Route: IV, Dosing Weight 109.545 kg, Total Volume: 1,000, Start date: 10/02/16 4:35:00 CDT, Duration: 30 day, Sto p date: 11/01/16 4:34:00 CDT Start Date: 10/02/16 Stop Date: 10/04/16 Status: Discontinued Sodium Chloride 0.9% IV 250 mL, Route: IVPB, Start date: 10/02/16 2:04:00 CDT, Duration: 30 day, Stop da te: 11/01/16 2:03:00 CDT, PRN Line Flush Start Date: 10/02/16 Stop Date: 10/07/16 Status: Discontinued Sodium Chloride 0.9% IV IVPB, 0 ml/hr, ONCE, Start date: 10/04/16 15:40:00 CDT, 500 ml Notes: pharmacy re-entry for product selection according to order comment. 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 (Same As: Ultram) Start Date: 10/05/16 Stop Date: 10/07/16 Status: Discontinued trazodone 100 mg, 2 tab, Route: PO, Drug form: TAB, Bedtime, Dosing Weight 109.545, kg, MT N Insomnia, Start date: 10/02/16 5:46:00 CDT, Stop date: 11/01/16 5:45:00 CDT Notes: (Same As: Sybil) Start Date: 10/02/16 Stop Date: 10/06/16 Status: Discontinued Tylenol with Codeine #3 oral tablet 1 tab, PO, Q6H, PRN Pain, X 7 day, # 28 tab, 0 Refill(s) Start Date: 10/07/16 Stop Date: 10/14/16 Status: Ordered Vasotec 1.25 mg, 1 mL, Route: IVP, Drug form: INJ, ONCE, Dosing Weight 109.545, kg, Star t date: 10/02/16 10:57:00 CDT, Stop date: 10/02/16 10:57:00 CDT Notes: (Same as: Vasotec-IV) Start Date: 10/02/16 Stop Date: 10/02/16 Status: Completed Zinacef + sodium chloride 0.9% 100 mL INJ (for IV set) 100 mL 750 mg, 1 vial, Route: IVPB, Drug form: PDR/INJ, [id number], Dosing Weight 109.545, kg, Start date: 10/03/16 17:00:00 CDT, Duration: 5 day, Stop date: 10/08/16 9:00 :00 CDT Notes: (Same As: Kefurox, Zinacef)pharmacy re-entry for dosing time adjustment Start Date: 10/03/16 Stop Date: 10/05/16 Status: Discontinued Zofran 4 mg, 2 mL, Route: IVP, Drug form: INJ, ONCE, Dosing Weight 109.545, kg, Priorit y: STAT, Start date: 10/02/16 4:37:00 CDT, Stop date: 10/02/16 4:37:00 CDT Notes: (Same as: Zofran) MEDICATION WASTE Product Size: 4 mgProduct Was savana: ___ mg Start Date: 10/02/16 Stop Date: 10/02/16 Status: Completed Zosyn 3.375 gm, Route: IVPB, Drug form: PDR/INJ, [id number], Dosing Weight 109.545, kg, C rCl < 20 ml/min infuse over 4 hours, Start date: 10/02/16 6:00:00 CDT, Duration: 10 day, Stop date: 10/11/16 18:00:00 CDT, ABX Indication: Intra-abdominal Infection Start Date: 10/02/16 Stop Date: 10/02/16 Status: Canceled Results BLOOD BANK RESULTS 1 2 3 Most recent to oldest [Reference Range]: A POS *Unknown* (10/03/16 10:54 AM) ABO/Rh Negative (10/03/16 10:54 AM) Antibody Scrn Product available (10/03/16 10:45 AM) RBC product ELECTROLYTES 1 2 3 Most recent to oldest [Reference Range]: 142 mEq/L (10/07/16 5:49 AM) 141 mEq/L (10/06/16 5:40 AM) 143 mEq/L (10/05/16 5:36 AM) Sodium Lvl [135-145 mEq/L] 4.2 mEq/L (10/07/16 5:49 AM) 4.1 mEq/L (10/06/16 5:40 AM) 4.1 mEq/L (10/05/16 5:36 AM) Potassium Lvl [3.5-5.1 mEq/L] 114 mEq/L *HI* (10/07/16 5:49 AM) 113 mEq/L *HI* (10/06/16 5:40 AM) 115 mEq/L *HI* (10/05/16 5:36 AM) Chloride Lvl [95-109 mEq/L] 19 mEq/L *LOW* (10/07/16 5:49 AM) 17 mEq/L *LOW* (10/06/16 5:40 AM) 17 mEq/L *LOW* (10/05/16 5:36 AM) CO2 [24-32 mEq/L] 13.2 mEq/L (10/07/16 5:49 AM) 15.1 mEq/L (10/06/16 5:40 AM) 15.1 mEq/L (10/05/16 5:36 AM) AGAP [10.0-20.0 mEq/L] CHEM PANEL 1 2 3 Most recent to oldest [Reference Range]: 3.40 mg/dL *HI* (10/07/16 5:49 AM) 3.20 mg/dL *HI* (10/06/16 5:40 AM) 3.20 mg/dL *HI* (10/05/16 5:36 AM) Creatinine Lvl [0.50-1.40 mg/dL] 16 mL/min/1.73m2 1 *NA* (10/07/16 5:49 AM) 20 mL/min/1.73m2 2 *NA* (10/06/16 5:40 AM) 20 mL/min/1.73m2 3 *NA* (10/05/16 5:36 AM) eGFR 21 mg/dL (10/07/16 5:49 AM) 19 mg/dL (10/06/16 5:40 AM) 20 mg/dL (10/05/16 5:36 AM) BUN [7-22 mg/dL] 6 (10/04/16 2:45 PM) 7 (10/03/16 3:33 AM) 8 (10/02/16 6:16 AM) B/C Ratio [6-25] 100 mg/dL *HI* (10/07/16 5:49 AM) 75 mg/dL (10/06/16 5:40 AM) 93 mg/dL (10/05/16 5:36 AM) Glucose Lvl [70-99 mg/dL] 5.2 g/dL *LOW* (10/05/16 5:36 AM) 5.3 g/dL *LOW* (10/04/16 2:45 PM) 6.0 g/dL *LOW* (10/04/16 3:31 AM) Total Protein [6.4-8.4 g/dL] 1.8 g/dL *LOW* (10/05/16 5:36 AM) 2.0 g/dL *LOW* (10/04/16 2:45 PM) 2.3 g/dL *LOW* (10/04/16 3:31 AM) Albumin Lvl [3.5-5.0 g/dL] 3.4 g/dL (10/05/16 5:36 AM) 3.3 g/dL (10/04/16 2:45 PM) 3.7 g/dL (10/04/16 3:31 AM) Globulin [2.7-4.2 g/dL] 0.5 *LOW* (10/05/16 5:36 AM) 0.6 *LOW* (10/04/16 2:45 PM) 0.6 *LOW* (10/04/16 3:31 AM) A/G Ratio [0.7-1.6] 8.0 mg/dL *LOW* (10/07/16 5:49 AM) 7.9 mg/dL *LOW* (10/06/16 5:40 AM) 7.5 mg/dL *LOW* (10/05/16 5:36 AM) Calcium Lvl [8.5-10.5 mg/dL] 4.3 mg/dL (10/05/16 5:36 AM) 5.0 mg/dL *HI* (10/04/16 3:31 AM) 4.4 mg/dL (10/02/16 3:27 PM) Phosphorus [2.5-4.5 mg/dL] 1.8 mg/dL (10/05/16 5:36 AM) 1.9 mg/dL (10/04/16 3:31 AM) 1.8 mg/dL (10/02/16 3:27 PM) Magnesium Lvl [1.8-2.4 mg/dL] 13 unit/L (10/05/16 5:36 AM) 12 unit/L (10/04/16 2:45 PM) 12 unit/L (10/04/16 3:31 AM) ALT [0-65 unit/L] 15 unit/L (10/05/16 5:36 AM) 10 unit/L (10/04/16 2:45 PM) 16 unit/L (10/04/16 3:31 AM) AST [0-37 unit/L] 76 unit/L (10/05/16 5:36 AM) 82 unit/L (10/04/16 2:45 PM) 85 unit/L (10/04/16 3:31 AM) Alk Phos [39-136 unit/L] 0.3 mg/dL (10/05/16 5:36 AM) 0.2 mg/dL (10/04/16 2:45 PM) 0.2 mg/dL (10/04/16 3:31 AM) Bili Total [0.2-1.3 mg/dL] <0.1 mg/dL (10/05/16 5:36 AM) <0.1 mg/dL (10/04/16 3:31 AM) 0.1 mg/dL (10/02/16 2:13 AM) Bili Direct [0.0-0.3 mg/dL] Unable to Calculate *NA* (10/05/16 5:36 AM) Unable to Calculate *NA* (10/04/16 3:31 AM) Bili Indirect [0.0-1.0] 0.1 mg/dL (10/02/16 2:13 AM) Bili Indirect [0.0-1.0 mg/dL] 139 unit/L (10/02/16 2:13 AM) Lipase Lvl [73-393 unit/L] 0.5 mMol/L (10/02/16 4:58 AM) Lactic Acid Lvl [0.5-2.2 mMol/L] 1Result Comment: The eGFR is calculated using [...] tiplied by the estimated BMI. CARDIAC ENZYMES 1 2 3 Most recent to oldest [Reference Range]: 695 pg/mL *HI* (10/05/16 5:36 AM) 457 pg/mL *HI* (10/04/16 10:12 AM) 408 pg/mL *HI* (10/04/16 3:31 AM) BNP [<=100 pg/mL] SPECIAL CHEMISTRY 1 2 3 Most recent to oldest [Reference Range]: 5.0 % (10/02/16 3:27 PM) Hgb A1C [<=5.6 %] PARATHYROID PROFILE 1 2 3 Most recent to oldest [Reference Range]: 1.10 mMol/L (10/02/16 3:27 PM) Ca Ion WB [1.05-1.25 mMol/L] 1.07 mMol/L (10/02/16 3:27 PM) Ca Norm WB [1.05-1.25 mMol/L] ENDOCRINOLOGY 1 2 3 Most recent to oldest [Reference Range]: 25.3 ug/dl *NA* (10/02/16 3:27 PM) Cortisol Negative *NA* (10/02/16 2:13 AM) S Preg [Negative] 0.344 ng/mL/hr 1 *NA* (10/04/16 10:12 AM) Renin Activity [0.167-5.380 ng/mL/hr] <10 pg/mL 2 *NA* (10/02/16 3:27 PM) Metanephrine [0-62 pg/mL] 109 pg/mL *NA* (10/02/16 3:27 PM) Normetanephrine [0-145 pg/mL] 1Result Comment: This test was developed and its performance characteristics determined by [facility]. It has not been cleared or approved by the Food and Drug Administration. Performed At: [address] [id number] Min Franklin MD Ph:[phone] 2Result Comment: Concentrations of Normetanephrine between 146 and 487 pg/mL, and Metanephrine between 63 and 255 pg/mL are considered indeterminate. Follow-up biochemical testing is recommended when patient levels fall within this indeterminate range. These tests include repeat testing of plasma/urinary fractionated metanephrines and plasma catecholamines. Performed At: [address] [id number] Min Franklin MD Ph:[phone] URINE CHEM 1 2 3 Most recent to oldest [Reference Range]: Comment 1 *NA* (10/03/16 6:20 PM) U24 Aldosterone [0.00-19.00] <2.50 microgram/Liter *NA* (10/03/16 6:20 PM) U Aldosterone [Not Estab. microgram/Liter] Comment 2 *NA* (10/03/16 6:20 PM) U24 Creatinine [800-1800] 51.2 mg/dL *NA* (10/03/16 6:20 PM) U Creat mg/dL [Not Estab. mg/dL] 1Result Comment: No total volume submitted. Unable to calculate 24 hour result. Adult Ranges Low Sodium Intake 20.00 - 80.00 Normal Sodium Intake 0.00 - 19.00 High Sodium Intake 0.00 - 12.00 This test was developed and its performance characteristics determined by [facility]. It has not been cleared or approved by the Food and Drug Administration. Performed At: [address] [id number] Min Franklin MD Ph:[phone] Performed At: [address] [id number] Janis Woods MD Ph:[phone] 2Result Comment: No total volume submitted. Unable to calculate 24 hour result. URINE AND STOOL 1 2 3 Most recent to oldest [Reference Range]: Slight *ABN* (10/02/16 6:17 PM) Slight *ABN* (10/02/16 3:21 AM) UA Turbidity [Clear] Yellow *NA* (10/02/16 6:17 PM) Yellow *NA* (10/02/16 3:21 AM) UA Color 6.0 (10/02/16 6:17 PM) 7.0 (10/02/16 3:21 AM) UA pH [5.0-8.0] 1.013 (10/02/16 6:17 PM) 1.017 (10/02/16 3:21 AM) UA Spec Grav [<=1.030] 500 mg/dL *ABN* (10/02/16 6:17 PM) 500 mg/dL *ABN* (10/02/16 3:21 AM) UA Glucose [Negative mg/dL] Negative (10/02/16 6:17 PM) Negative (10/02/16 3:21 AM) UA Blood [Negative] Negative mg/dL *NA* (10/02/16 6:17 PM) Negative mg/dL *NA* (10/02/16 3:21 AM) UA Ketones [Negative mg/dL] 100 mg/dL *ABN* (10/02/16 6:17 PM) >=300 mg/dL *ABN* (10/02/16 3:21 AM) UA Protein [Negative mg/dL] <=1.0 mg/dL *NA* (10/02/16 6: PM) <=1.0 mg/dL *NA* (10/02/16 3:21 AM) UA Urobilinogen [0.1-1.0 mg/dL] Negative *NA* (10/02/16 6:17 PM) Negative *NA* (10/02/16 3:21 AM) UA Bili [Negative] Negative (10/02/16 6:17 PM) Negative (10/02/16 3:21 AM) UA Leuk Est [Negative] Negative (10/02/16 6:17 PM) Negative (10/02/16 3:21 AM) UA Nitrite [Negative] 2 /HPF (10/02/16 6:17 PM) 11 /HPF *HI* (10/02/16 3:21 AM) UA WBC [0-5 /HPF] 2 /HPF (10/02/16 3:21 AM) UA RBC [0-2 /HPF] Occasional /HPF *NA* (10/02/16 6:17 PM) UA Bacteria [None Seen /HPF] Occasional /LPF *NA* (10/02/16 6:17 PM) Few /LPF *NA* (10/02/16 3:21 AM) UA Sq Epi [Few /LPF] 1 /LPF (10/02/16 3:21 AM) UA Hyal Cast [0-2 /LPF] Few /LPF *NA* (10/02/16 6:17 PM) Few /LPF *NA* (10/02/16 3:21 AM) UA Mucus [None Seen /LPF] HEMATOLOGY 1 2 3 Most recent to oldest [Reference Range]: 4.7 K/CMM (10/07/16 5:49 AM) 6.4 K/CMM (10/06/16 5:40 AM) 5.2 K/CMM (10/05/16 5:36 AM) WBC [3.7-10.4 K/CMM] 2.60 M/CMM *LOW* (10/07/16 5:49 AM) 2.73 M/CMM *LOW* (10/06/16 5:40 AM) 2.61 M/CMM *LOW* (10/05/16 5:36 AM) RBC [4.20-5.40 M/CMM] 7.6 g/dL *LOW* (10/07/16 5:49 AM) 8.0 g/dL *LOW* (10/06/16 5:40 AM) 7.7 g/dL *LOW* (10/05/16 5:36 AM) Hgb [12.0-16.0 g/dL] 22.7 % *LOW* (10/07/16 5:49 AM) 24.6 % *LOW* (10/06/16 5:40 AM) 23.4 % *LOW* (10/05/16 5:36 AM) Hct [36.0-48.0 %] 87.4 fL (10/07/16 5:49 AM) 90.0 fL (10/06/16 5:40 AM) 89.8 fL (10/05/16 5:36 AM) MCV [80.0-98.0 fL] 29.3 pg (10/07/16 5:49 AM) 29.5 pg (10/06/16 5:40 AM) 29.5 pg (10/05/16 5:36 AM) MCH [27.0-31.0 pg] 33.5 g/dL (10/07/16 5:49 AM) 32.8 g/dL (10/06/16 5:40 AM) 32.9 g/dL (10/05/16 5:36 AM) MCHC [32.0-36.0 g/dL] 14.3 % (10/07/16 5:49 AM) 14.1 % (10/06/16 5:40 AM) 14.2 % (10/05/16 5:36 AM) RDW [11.5-14.5 %] 276 K/CMM (10/07/16 5:49 AM) 270 K/CMM (10/06/16 5:40 AM) 234 K/CMM (10/05/16 5:36 AM) Platelet [133-450 K/CMM] 8.5 fL (10/07/16 5:49 AM) 9.5 fL (10/06/16 5:40 AM) 8.5 fL (10/05/16 5:36 AM) MPV [7.4-10.4 fL] 37.7 % *LOW* (10/07/16 5:49 AM) 41.3 % *LOW* (10/06/16 5:40 AM) 47.8 % (10/05/16 5:36 AM) Segs [45.0-75.0 %] 40.1 % *HI* (10/07/16 5:49 AM) 36.9 % (10/06/16 5:40 AM) 32.9 % (10/05/16 5:36 AM) Lymphocytes [20.0-40.0 %] 9.5 % (10/07/16 5:49 AM) 9.2 % (10/06/16 5:40 AM) 9.0 % (10/05/16 5:36 AM) Monocytes [2.0-12.0 %] 12.0 % *HI* (10/07/16 5:49 AM) 11.8 % *HI* (10/06/16 5:40 AM) 9.6 % *HI* (10/05/16 5:36 AM) Eosinophils [0.0-4.0 %] 0.7 % (10/07/16 5:49 AM) 0.8 % (10/06/16 5:40 AM) 0.7 % (10/05/16 5:36 AM) Basophils [0.0-1.0 %] 1.8 K/CMM (10/07/16 5:49 AM) 2.6 K/CMM (10/06/16 5:40 AM) 2.5 K/CMM (10/05/16 5:36 AM) Segs-Bands # [1.5-8.1 K/CMM] 1.9 K/CMM (10/07/16 5:49 AM) 2.3 K/CMM (10/06/16 5:40 AM) 1.7 K/CMM (10/05/16 5:36 AM) Lymphocytes # [1.0-5.5 K/CMM] 0.4 K/CMM (10/07/16 5:49 AM) 0.6 K/CMM (10/06/16 5:40 AM) 0.5 K/CMM (10/05/16 5:36 AM) Monocytes # [0.0-0.8 K/CMM] 0.6 K/CMM *HI* (10/07/16 5:49 AM) 0.7 K/CMM *HI* (10/06/16 5:40 AM) 0.5 K/CMM (10/05/16 5:36 AM) Eosinophils # [0.0-0.5 K/CMM] 0.1 K/CMM (10/04/16 3:31 AM) 0.0 K/CMM (10/03/16 3:25 PM) 0.0 K/CMM (10/02/16 3:27 PM) Basophils # [0.0-0.2 K/CMM] Moderate *ABN* (10/03/16 3:25 PM) Polychrom [None Seen] 14.0 seconds (10/02/16 3:27 PM) 13.2 seconds (10/02/16 6:16 AM) PT [12.0-14.7 seconds] 1.06 (10/02/16 3:27 PM) 0.98 (10/02/16 6:16 AM) INR [0.85-1.17] 34.1 seconds (10/02/16 3:27 PM) 34.3 seconds (10/02/16 6:16 AM) PTT [22.9-35.8 seconds] BACTERIAL - SEROLOGY 1 2 3 Most recent to oldest [Reference Range]: Negative (10/02/16 2:54 PM) MRSA by PCR Immunizations Given and Recorded Vaccine Date Status [...] Yes Assessment and Plan Extracted from: Title: Progress Note * Author: Maria Elena Worthington DO Date: 10/06/16 Patient: GISELA SOL Age: 40 years Sex: Female : 1975 Associated Diagnoses: None Author: Maria Elena Worthington DO Basic Information 40 y/o F PMHx of DM, HTN, CHF, CKD stage III, HLD, depression, and diabetic Charcot foot s/p R BKA p/w diffuse abd pain, nausea, vomiting x 2 days. She was recently discharged from [facility] service 09/28 for MDR E.coli pyelonephritis, during [...] BP were difficult to control in ED. [employer] activated for hypertensive urgency SBP of 200's/ [...] No nausea or vomiting. Objective I&O Input/Output RecordInOutBal 1524hr Tot 10 900 -890 1424hr Tot 452 950 -498 VS/Measurements Vital Signs (last 24 hrs) Last Charted Temp Oral98.3 DegF (OCT 06 12:50) Heart Rate Vbwuwbvpal95 bpm (OCT 06:50) Resp Rate 18 BRMIN (OCT 06 12:50) KJA094 mmHg (OCT 06 12:50) DBP75 mmHg (OCT 06:50) FfC944 % (OCT 06:50) General: Alert and oriented, No acute distress. [...] Neurologic: Alert, Oriented. Psychiatric: Cooperative, Appropriate mood & affect. Review / Management Results review: Labs (Last four charted values) WBC 6.4(OCT 06)5.2(SEP 14)7.5(SEP 13)6.2(SEP 12) Hgb L 8.0(SEP 15)L 7.7(SEP 14)L 7.7(MARILYN 13)L 7.3(MARILYN 12) Hct L 24.6(SEP 15)L 23.4(MARILYN 14)L 24.2(MARILYN 13)L 22.4(MARILYN 12) Plt 270(MARILYN 15)234(MARILYN 14)256(MARILYN 13)263(MARILYN 12) Na 141(SEP 15)143(MARILYN 14)H 146(MARILYN 13)H 146(MARILYN 13) K 4.1(MARILYN 15)4.1(MARILYN 14)4.0(MARILYN 13)4.1(MARILYN 13) CO2 L 17(MARILYN 15)L 17(MARILYN 14)L 20(MARILYN 13)L 23(MARILYN 13) Cl H 113(MARILYN 15)H 115(MARILYN 14)H 116(MARILYN 13)H 116(MARILYN 13) Cr H 3.20(MARILYN 15)H 3.20(MARILYN 14)H 3.10(MARILYN 13)H 3.10(MARILYN 13) BUN 19(MARILYN 15)20(MARILYN 14)19(MARILYN 13)19(MARILYN 13) Glucose Random 75(MARILYN 15)93(MARILYN 14)91(MARILYN 13)79(MARILYN 13) Mg 1.8(MARILYN 14)1.9(MARILYN 13)1.8(MARILYN 11)L 1.6(MARILYN 11) Phos 4.3(MARILYN 14)H 5.0(MARILYN 13)4.4(MARILYN 11) Ca L 7.9(MARILYN 15)L 7.5(MARILYN 14)L 7.7(MARILYN 13)L 7.8(MARILYN 13) PT 14.0(MARILYN 11)13.2(MARILYN 11) INR 1.06(MARILYN 11)0.98(MARILYN 11) PTT 34.1(MARILYN 11)34.3(MARILYN 11). Impression and Plan 40 y/o F PMHx of DM, HTN, CHF, CKD stage III, HLD, depression, and diabetic Charcot foot s/p R BKA p/w diffuse abd pain and N/V, was transferred to ICU for HTN urgency, now s/p repair of incarcerated incisional hernia w/ mesh. Incarcerated hernia s/p repair 6, POD#3 -General surgery Dr. Nam on board. [...] US. Discussed plan with attending, Dr. Dykes. [facility] Sandra Worthington DO PGY2 #[id number] Addendum I was physically present du ring the fung portions of the patient evaluation and the medical by decision making when perfor med by the resident and I concur with the above documented johnny Dykes made by the team under my guidance. Darrion Bueno MD on 10/07/2016 08:48
--- OUTSIDE RECORDS SUMMARY | 2019-09-10 20:10 | XMS REPORT | Summary of Care ---
Author Author [facility] Address Unknown Phone Unavailable Encounter PRIMITIVO Mariano(SANGITA) [id number] Date(s): 12/27/16 - 12/27/16 [facility] [address] [place], [place] [address] [phone] Discharge Diagnosis: N&V (nausea and vomiting) Discharge Diagnosis: Abdominal pain in female Discharge Disposition: Home or Self Care Attending Physician: Jaiden Haro MD PHD Vital Signs 1 2 3 Most recent to oldest [Reference Range]: 157.48 cm (12/27/16 2:38 PM) Height 98.2 DegF (12/27/16 10:55 PM) 98.4 DegF (12/27/16 5:33 PM) 98.1 DegF (12/27/16 2:38 PM) Temperature Oral [96.4-99.1 DegF] 171/112 mmHg *HI* (12/27/16 10:55 PM) 184/113 mmHg *HI* (12/27/16 7:17 PM) 223/122 mmHg *HI* (12/27/16 5:47 PM) Blood Pressure [90-140/60-90 mmHg] 17 BRMIN (12/27/16 10:55 PM) 18 BRMIN (12/27/16 7:17 PM) 17 BRMIN (12/27/16 5:33 PM) Respiratory Rate [14-20 BRMIN] 98 bpm (12/27/16 10:55 PM) 100 bpm (12/27/16 7:17 PM) 100 bpm (12/27/16 5:33 PM) Peripheral Pulse Rate [60-100 bpm] 112.273 kg (12/27/16 2:38 PM) Weight 45.27 m2 (12/27/16 2:38 PM) Body Mass Index Problem List Condition [...] Substance Reaction Severity Status NKDA Active Medications Dilaudid 0.5 mg, 0.5 mL, Route: IVP, Drug form: INJ, ONCE, Dosing Weight 112.273, kg, Bessie ority: STAT, Start date: 12/27/16 17:13:00 CDT, Stop date: 12/27/16 17:13:00 CDT Notes: Same as: Dilaudid Start Date: 12/27/16 Stop Date: 12/27/16 Status: Completed Dilaudid 0.5 mg, 0.5 mL, Route: IVP, Drug form: INJ, ONCE, Dosing Weight 112.273, kg, Bessie ority: STAT, Start date: 12/27/16 21:36:00 CDT, Stop date: 12/27/16 21:36:00 CDT Notes: Same as: Dilaudid Start Date: 12/27/16 Stop Date: 12/27/16 Status: Completed morphine Sulfate 4 mg, 1 mL, Route: IVP, Drug form: SOLN, ONCE, Dosing Weight 103.182, kg, Priori ty: STAT, Start date: 12/27/16 14:37:00 CDT, Stop date: 12/27/16 14:37:00 CDT Notes: (Same as: MORPhine Sulfate) Start Date: 12/27/16 Stop Date: 12/27/16 Status: Completed ondansetron 4 mg, 2 mL, Route: IVP, Drug form: INJ, ONCE, Dosing Weight 103.182, kg, Priorit y: STAT, Start date: 12/27/16 14:37:00 CDT, Stop date: 12/27/16 14:37:00 CDT Notes: (Same as: Zofran) MEDICATION WASTE Product Size: 4 mgProduct Was savana: ___ mg Start Date: 12/27/16 Stop Date: 12/27/16 Status: Completed Phenergan 12.5 mg, Route: IVPB, ONCE, Dosing Weight 112.273, kg, Priority: STAT, Start harish e: 12/27/16 17:14:00 CDT, Stop date: 12/27/16 17:14:00 CDT Start Date: 12/27/16 Stop Date: 12/27/16 Status: Completed Saline Flush 0.9% 10 mL, Route: IVP, Drug Form: INJ, Dosing Weight 103.182, kg, PRN, PRN Line Flus h, Start date: 12/27/16 14:37:00 CDT, Duration: 30 day, Stop date: 01/26/17 14:3 6:00 CDT Notes: (Same as: BD Posiflush) Start Date: 12/27/16 Stop Date: 12/28/16 Status: Discontinued Sodium Chloride 0.9% (Bolus) IV 1,000 mL, 2,000 ml/hr, Infuse Over: 30 minutes, Route: IV, 1,000, Drug form: INJ , ONCE, Priority: STAT, Dosing Weight 103.182 kg, Start date: 12/27/16 14:37:00 CDT, Duration: 1 doses or times, Stop date: 12/27/16 14:37:00 CDT Start Date: 12/27/16 Stop Date: 12/27/16 Status: Completed Tylenol with Codeine #3 oral tablet 1 tab, PO, Q6H, PRN Pain, X 3 day, # 12 tab, 0 Refill(s) Start Date: 12/27/16 Stop Date: 12/30/16 Status: Ordered Results ELECTROLYTES Most recent to 1 oldest [Reference Range]: Sodium Lvl [135-145 139 mEq/L mEq/L] (12/27/16 3:52 PM) Potassium Lvl 5.2 mEq/L [3.5-5.1 mEq/L] *HI* (12/27/16 3:52 PM) Chloride Lvl [95-109 110 mEq/L mEq/L] *HI* (12/27/16 3:52 PM) CO2 [24-32 mEq/L] 23 mEq/L *LOW* (12/27/16 3:52 PM) AGAP [10.0-20.0 11.2 mEq/L mEq/L] (12/27/16 3:52 PM) CHEM PANEL Most recent to 1 oldest [Reference Range]: Creatinine Lvl 3.38 mg/dL [0.50-1.40 mg/dL] *HI* (12/27/16 3:52 PM) eGFR 18 mL/min/1.73m2 1 *NA* (12/27/16 3:52 PM) BUN [7-22 mg/dL] 33 mg/dL *HI* (12/27/16 3:52 PM) B/C Ratio [6-25] 10 (12/27/16 3:52 PM) Glucose Lvl [70-99 128 mg/dL mg/dL] *HI* (12/27/16 3:52 PM) Total Protein 6.8 g/dL [6.4-8.4 g/dL] (12/27/16 3:52 PM) Albumin Lvl [3.5-5.0 2.2 g/dL g/dL] *LOW* (12/27/16 3:52 PM) Globulin [2.7-4.2 4.6 g/dL g/dL] *HI* (12/27/16 3:52 PM) A/G Ratio [0.7-1.6] 0.5 *LOW* (12/27/16 3:52 PM) Calcium Lvl 8.3 mg/dL [8.5-10.5 mg/dL] *LOW* (12/27/16 3:52 PM) ALT [0-65 unit/L] 12 unit/L (12/27/16 3:52 PM) AST [0-37 unit/L] 12 unit/L (12/27/16 3:52 PM) Alk Phos [39-136 93 unit/L unit/L] (12/27/16 3:52 PM) Bili Total [0.2-1.3 0.2 mg/dL mg/dL] (12/27/16 3:52 PM) Lipase Lvl [73-393 95 unit/L unit/L] (12/27/16 3:52 PM) 1Result Comment: The eGFR is calculated [...] tiplied by the estimated BMI. URINE CHEM Most recent to 1 oldest [Reference Range]: U Preg [Negative] Negative (12/27/16 8:28 PM) URINE AND STOOL Most recent to 1 oldest [Reference Range]: UA Turbidity [Clear] Clear (12/27/16 8:28 PM) UA Color [Yellow] Yellow *NA* (12/27/16 8:28 PM) UA pH [5.0-8.0] 6.5 (12/27/16 8:28 PM) UA Spec Grav 1.015 [<=1.030] (12/27/16 8:28 PM) UA Glucose [Negative 100 mg/dL mg/dL] *ABN* (12/27/16 8:28 PM) UA Blood [Negative] Small *ABN* (12/27/16 8:28 PM) UA Ketones Negative [Negative] *NA* (12/27/16 8:28 PM) UA Protein [Negative >=300 mg/dL mg/dL] *ABN* (12/27/16 8:28 PM) UA Urobilinogen 0.2 EU/dL [0.1-1.0 EU/dL] (12/27/16 8:28 PM) UA Bili [Negative] Negative *NA* (12/27/16 8:28 PM) UA Leuk Est Trace [Negative] *ABN* (12/27/16 8:28 PM) UA Nitrite Negative [Negative] (12/27/16 8:28 PM) UA WBC [None Seen 6-10 /HPF /HPF] *ABN* (12/27/16 8:28 PM) UA RBC [0-2 /HPF] 0-2 /HPF (12/27/16 8:28 PM) UA Bacteria [None None Seen Seen] (12/27/16 8:28 PM) UA Sq Epi [Few /LPF] Rare /LPF (12/27/16 8:28 PM) HEMATOLOGY Most recent to 1 oldest [Reference Range]: WBC [3.7-10.4 K/CMM] 8.0 K/CMM (12/27/16 3:52 PM) RBC [4.20-5.40 4.09 M/CMM M/CMM] *LOW* (12/27/16 3:52 PM) Hgb [12.0-16.0 g/dL] 11.9 g/dL *LOW* (12/27/16 3:52 PM) Hct [36.0-48.0 %] 36.0 % (12/27/16 3:52 PM) MCV [80.0-98.0 fL] 88.1 fL (12/27/16 3:52 PM) MCH [27.0-31.0 pg] 29.1 pg (12/27/16 3:52 PM) MCHC [32.0-36.0 33.0 g/dL g/dL] (12/27/16 3:52 PM) RDW [11.5-14.5 %] 15.7 % *HI* (12/27/16 3:52 PM) Platelet [133-450 365 K/CMM K/CMM] (12/27/16 3:52 PM) MPV [7.4-10.4 fL] 8.0 fL (12/27/16 3:52 PM) Segs [45.0-75.0 %] 60.5 % (12/27/16 3:52 PM) Lymphocytes 27.5 % [20.0-40.0 %] (12/27/16 3:52 PM) Monocytes [2.0-12.0 6.0 % %] (12/27/16 3:52 PM) Eosinophils [0.0-4.0 4.7 % %] *HI* (12/27/16 3:52 PM) Basophils [0.0-1.0 1.3 % %] *HI* (12/27/16 3:52 PM) Segs-Bands # 4.9 K/CMM [1.5-8.1 K/CMM] (12/27/16 3:52 PM) Lymphocytes # 2.2 K/CMM [1.0-5.5 K/CMM] (12/27/16 3:52 PM) Monocytes # [0.0-0.8 0.5 K/CMM K/CMM] (12/27/16 3:52 PM) Eosinophils # 0.4 K/CMM [0.0-0.5 K/CMM] (12/27/16 3:52 PM) Basophils # [0.0-0.2 0.1 K/CMM K/CMM] (12/27/16 3:52 PM) Immunizations Given and Recorded Vaccine Date Status [...] Days No; Reg Smoking Cessation Counseling No Assessment and Plan No data available for this section
--- OUTSIDE RECORDS SUMMARY | 2019-09-10 20:10 | XMS REPORT | Summary of Care ---
Author Author [facility] Organization [facility] Address Unknown Phone Unavailable Encounter PRIMITIVO Mariano(SANGITA) [id number] Date(s): 12/05/16 - 12/10/16 [facility] [address] [employer] provided by [facility] [place] [address]- Discharge Disposition: Home or Self Care Attending Physician: Carmen Galvez MD Admitting Physician: Carmen Galvez MD Vital Signs 1 2 3 Most recent to oldest [Reference Range]: 170.18 cm (12/08/16 9:56 AM) 170.18 cm (12/05/16 10:38 PM) 170.18 cm (12/05/16 2:51 PM) Height 114.45 kg (12/06/16 12:02 AM) Current Weight 98.0 DegF (12/10/16 10:33 AM) 98.6 DegF (12/10/16 7:44 AM) 98.7 DegF (12/10/16 5:03 AM) Temperature Oral [96.4-99.1 DegF] 150/91 mmHg *HI* (12/10/16 10:33 AM) 162/96 mmHg *HI* (12/10/16 7:44 AM) 131/81 mmHg (12/10/16 5:03 AM) Blood Pressure [90-140/60-90 mmHg] 18 BRMIN (12/10/16 10:33 AM) 17 BRMIN (12/10/16 7:44 AM) 18 BRMIN (12/10/16 5:03 AM) Respiratory Rate [14-20 BRMIN] 103 bpm *HI* (12/10/16 10:33 AM) 88 bpm (12/10/16 7:44 AM) 88 bpm (12/10/16 5:03 AM) Peripheral Pulse Rate [60-100 bpm] 99 kg (12/08/16 9:56 AM) 99 kg (12/07/16 2:18 PM) 114.5 kg (12/05/16 10:38 PM) Weight 39.54 m2 (12/05/16 10:38 PM) 39.55 m2 (12/05/16 2:51 PM) Body Mass Index Problem List Condition [...] Substance Reaction Severity Status NKDA Active Medications Bentyl 10 mg, 1 cap, Route: PO, Drug form: CAP, Q8H, Dosing Weight 99, kg, Start date: 12/08/16 17:31:00 CDT, Duration: 30 day, Stop date: 01/07/17 16:00:00 CDT Notes: (Same as: Bentyl) Start Date: 12/08/16 Stop Date: 12/10/16 Status: Discontinued carvedilol 25 mg, 1 tab, Route: PO, Drug form: TAB, ONCE, Start date: 12/05/16 18:00:00 CDT , Stop date: 12/05/16 18:00:00 CDT Notes: Give with food. (Same As: Coreg) Start Date: 12/05/16 Stop Date: 12/05/16 Status: Completed carvedilol 25 mg, 1 tab, Route: PO, Drug form: TAB, Q12H, Dosing Weight 114.5, kg, Start da te: 12/06/16 11:00:00 CDT, Duration: 30 day, Stop date: 01/05/17 9:00:00 CDT Notes: Give with food. (Same As: Coreg) Start Date: 12/06/16 Stop Date: 12/10/16 Status: Discontinued carvedilol extended release 20 mg, Route: PO, Drug form: ERCAP, ONCE, Dosing Weight 114.545, kg, Priority: S TAT, Start date: 12/05/16 17:40:00 CDT, Stop date: 12/05/16 17:40:00 CDT Start Date: 12/05/16 Stop Date: 12/05/16 Status: Deleted cefTRIAXone 1 gm, Route: IVPB, Drug form: PDR/INJ, [id number], Dosing Weight 99, kg, Start date : 12/08/16 17:00:00 CDT, Duration: 13 day, Stop date: 12/20/16 17:00:00 CDT, ABX Indication: Urinary Tract Infection Notes: (Same As: Rocephin).Use with 100 mL NS and infuse over 30 min MEDICA TION WASTE Product Size: 1000 mgProduct Wasted: _0__ mg Start Date: 12/08/16 Stop Date: 12/10/16 Status: Discontinued Dextrose 50% Syringe 25 gm, 50 mL, Route: IVP, Drug Form: INJ, Dosing Weight 114.5, kg, PRN, PRN Bloo d Glucose Results, Start date: 12/05/16 23:53:00 CDT, Duration: 30 day, Stop harish e: 01/04/17 23:52:00 CDT Start Date: 12/05/16 Stop Date: 12/09/16 Status: Discontinued Dextrose 50% Syringe 12.5 gm, 25 mL, Route: IVP, Drug Form: INJ, Dosing Weight 114.5, kg, PRN, PRN Bl ood Glucose Results, Start date: 12/05/16 23:53:00 CDT, Duration: 30 day, Stop d ate: 01/04/17 23:52:00 CDT Start Date: 12/05/16 Stop Date: 12/09/16 Status: Discontinued Dilaudid 1 mg, 0.5 mL, Route: IV, Drug form: INJ, Q4H, Dosing Weight 114.5, kg, PRN Pain Score 6-10, Start date: 12/05/16 23:48:00 CDT, Duration: 30 day, Stop date: 12/23 07/08 23:47:00 CDT Notes: Same as: Dilaudid Start Date: 12/05/16 Stop Date: 12/09/16 Status: Discontinued Dilaudid 1 mg, Route: IVP, ONCE, Dosing Weight 114.545, kg, Priority: STAT, Start date: 0 12/05/16 20:10:00 CDT, Stop date: 12/05/16 20:10:00 CDT Start Date: 12/05/16 Stop Date: 12/05/16 Status: Completed Dilaudid 1 mg, 0.5 mL, Route: IVP, Drug form: INJ, ONCE, Dosing Weight 114.545, kg, Prior ity: STAT, Start date: 12/05/16 15:21:00 CDT, Stop date: 12/05/16 15:21:00 CDT Notes: Same as: Dilaudid Start Date: 12/05/16 Stop Date: 12/05/16 Status: Completed Electrolyte Solution 1000 mL 1,000 mL, Rate: 100 ml/hr, Infuse over: 10 hr, Route: IV, Dosing Weight 114.5 kg , Total Volume: 1,000, Start date: 12/06/16 9:54:00 CDT, Duration: 30 day, Stop date: 01/05/17 9:53:00 CDT Start Date: 12/06/16 Stop Date: 12/06/16 Status: Discontinued glucagon 1 mg, Route: IM, Drug form: PDR/INJ, PRN, Dosing Weight 114.5, kg, PRN Blood Glu cose Results, Start date: 12/05/16 23:53:00 CDT, Duration: 30 day, Stop date: 23:52:00 CDT Start Date: 12/05/16 Stop Date: 12/09/16 Status: Discontinued heparin 5,000 unit, 1 mL, Route: SUB-Q, Drug form: INJ, Q8H, Dosing Weight 114.5, kg, St art date: 12/06/16 0:00:00 CDT, Duration: 30 day, Stop date: 01/04/17 16:00:00 C DT Notes: porcine heparin Start Date: 12/06/16 Stop Date: 12/10/16 Status: Discontinued hydrALAZINE 10 mg, 0.5 mL, Route: IVP, Drug form: INJ, Q4H, Dosing Weight 114.5, kg, PRN Hyp ertension, Start date: 12/06/16 18:11:00 CDT, Duration: 30 day, Stop date: 01/05 18:10:00 CDT Notes: (Same as: Apresoline)Push over 5 minutes Start Date: 12/06/16 Stop Date: 12/10/16 Status: Discontinued hydrALAZINE 10 mg, Route: IVP, ONCE, Dosing Weight 114.545, kg, Priority: STAT, Start date: 12/05/16 18:45:00 CDT, Stop date: 12/05/16 18:45:00 CDT Start Date: 12/05/16 Stop Date: 12/05/16 Status: Completed hydrALAZINE 20 mg, Route: IVP, ONCE, Dosing Weight 114.545, kg, Priority: STAT, Start date: 12/05/16 17:42:00 CDT, Stop date: 12/05/16 17:42:00 CDT Start Date: 12/05/16 Stop Date: 12/05/16 Status: Completed hydrALAZINE 25 mg oral tablet 25 mg, Route: PO, Drug form: TAB, ONCE, Dosing Weight 114.545, kg, Start date: 0 12/05/16 18:46:00 CDT, Stop date: 12/05/16 18:46:00 CDT Start Date: 12/05/16 Stop Date: 12/05/16 Status: Completed insulin aspart 4 unit, 0.04 mL, Route: SUB-Q, Drug form: SOLN, TID-Before Meals, Dosing Weight 114.5, kg, PRN Blood Glucose Results, Start date: 12/05/16 23:53:00 CDT, Duratio n: 30 day, Stop date: 01/04/17 23:52:00 CDT Notes: Roll in palms of hands gently; Do not shake vigorously. (Same as: Jarrdo Angulo)"single patient use only"WASTE: F/P - Black; E - Municipal Trash Bin Stable f or 28 days at room temperature.Expires in days from Date Start Date: 12/05/16 Stop Date: 12/09/16 Status: Discontinued insulin aspart 5 unit, 0.05 mL, Route: SUB-Q, Drug form: SOLN, TID-Before Meals, Dosing Weight 114.5, kg, PRN Blood Glucose Results, Start date: 12/05/16 23:53:00 CDT, Duratio n: 30 day, Stop date: 01/04/17 23:52:00 CDT Notes: Roll in palms of hands gently; Do not shake vigorously. (Same as: Jarrod Angulo)"single patient use only"WASTE: F/P - Black; E - Municipal Trash Bin Stable f or 28 days at room temperature.Expires in days from Date Start Date: 12/05/16 Stop Date: 12/09/16 Status: Discontinued insulin aspart 3 unit, 0.03 mL, Route: SUB-Q, Drug form: SOLN, TID-Before Meals, Dosing Weight 114.5, kg, PRN Blood Glucose Results, Start date: 12/05/16 23:53:00 CDT, Duratio n: 30 day, Stop date: 01/04/17 23:52:00 CDT Notes: Roll in palms of hands gently; Do not shake vigorously. (Same as: NovoLO G)"single patient use only"WASTE: F/P - Black; E - Municipal Trash Bin Stable f or 28 days at room temperature.Expires in days from Date Start Date: 12/05/16 Stop Date: 12/09/16 Status: Discontinued insulin aspart 2 unit, 0.02 mL, Route: SUB-Q, Drug form: SOLN, TID-Before Meals, Dosing Weight 114.5, kg, PRN Blood Glucose Results, Start date: 12/05/16 23:53:00 CDT, Duratio n: 30 day, Stop date: 01/04/17 23:52:00 CDT Notes: Roll in palms of hands gently; Do not shake vigorously. (Same as: NovoDONG Angulo)"single patient use only"WASTE: F/P - Black; E - Municipal Trash Bin Stable f or 28 days at room temperature.Expires in days from Date Start Date: 12/05/16 Stop Date: 12/09/16 Status: Discontinued insulin aspart 1 unit, 0.01 mL, Route: SUB-Q, Drug form: SOLN, TID-Before Meals, Dosing Weight 114.5, kg, PRN Blood Glucose Results, Start date: 12/05/16 23:53:00 CDT, Duratio n: 30 day, Stop date: 01/04/17 23:52:00 CDT Notes: Roll in palms of hands gently; Do not shake vigorously. (Same as: NovoDONG Angulo)"single patient use only"WASTE: F/P - Black; E - Municipal Trash Bin Stable f or 28 days at room temperature.Expires in days from Date Start Date: 12/05/16 Stop Date: 12/09/16 Status: Discontinued labetalol 40 mg, Route: IVP, Drug form: INJ, ONCE, Dosing Weight 114.545, kg, Priority: ST AT, Start date: 12/05/16 20:27:00 CDT, Stop date: 12/05/16 20:27:00 CDT Start Date: 12/05/16 Stop Date: 12/05/16 Status: Completed labetalol 10 mg, Route: IVP, Drug form: INJ, ONCE, Dosing Weight 114.545, kg, Priority: ST AT, Start date: 12/05/16 16:27:00 CDT, Stop date: 12/05/16 16:27:00 CDT Start Date: 12/05/16 Stop Date: 12/05/16 Status: Completed labetalol 20 mg, Route: IVP, Drug form: INJ, ONCE, Dosing Weight 114.545, kg, Priority: ST AT, Start date: 12/05/16 16:58:00 CDT, Stop date: 12/05/16 16:58:00 CDT Start Date: 12/05/16 Stop Date: 12/05/16 Status: Completed Levemir 5 unit, 0.05 mL, Route: SUB-Q, Drug form: SOLN, Daily, Dosing Weight 114.5, kg, Start date: 12/06/16 9:00:00 CDT, Duration: 30 day, Stop date: 01/04/17 9:00:00 CDT Notes: Same as LevemirDo not hold insulin without contacting prescriberWASTE: F/ P - Black; E - Municipal Trash Bin "single patient use only" Start Date: 12/06/16 Stop Date: 12/06/16 Status: Discontinued lidocaine topical patch (5% film) 1 patch, Route: TOP, QPM, Drug form: FILM, Start date: 12/09/16 18:07:00 CDT, Du ration: 30 day, Stop date: 01/08/17 17:00:00 CDT Notes: Apply only once for up to 12 hours in [id number] period (12 hours on and 12 hours off).(Same as: Lidoderm)"Remove old patch before application of new patch" Start Date: 12/09/16 Stop Date: 12/10/16 Status: Discontinued linezolid 600 mg, 1 tab, Route: PO, Drug form: TAB, [id number], Dosing Weight 99, kg, Start d ate: 12/08/16 16:00:00 CDT, Duration: 14 day, Stop date: 12/22/16 4:00:00 CDT, A BX Indication: Urinary Tract Infection Notes: Protect from light. (Same as: Zyvox) Start Date: 12/08/16 Stop Date: 12/10/16 Status: Discontinued linezolid 600 mg oral tablet 600 mg = 1 tab, PO, Q12H, X 12 day, # 24 tab, 0 Refill(s) Start Date: 12/09/16 Stop Date: 12/09/16 Status: Discontinued linezolid 600 mg oral tablet 600 mg = 1 tab, PO, Q12H, X 12 day, # 24 tab, 0 Refill(s) Start Date: 12/10/16 Stop Date: 12/22/16 Status: Ordered linezolid 600 mg oral tablet 600 mg = 1 tab, PO, Q12H, X 13 day, # 26 tab, 0 Refill(s) Start Date: 12/09/16 Stop Date: 12/09/16 Status: Discontinued Macrobid 100 mg, Route: PO, Drug form: CAP, [id number], Dosing Weight 99, kg, Start date: 16:00:00 CDT, Duration: 30 day, Stop date: 01/06/17 4:00:00 CDT Start Date: 12/07/16 Stop Date: 12/07/16 Status: Canceled meropenem 500 mg, Route: IVPB, Drug form: PDR/INJ, [id number], Dosing Weight 99, kg, CrCL= < 10 ml/min, Extended infusion, infuse over 3 hours, Start date: 12/07/16 17:00: 00 CDT, Duration: 7 day, Stop date: 12/13/16 17:00:00 CDT, ABX Indication: Urina ry Tract Inf... Notes: Same as Merrem MEDICATION WASTE Product Size: 500 mgProduct Wast ed: ___ mg Start Date: 12/07/16 Stop Date: 12/08/16 Status: Discontinued niCARdipine 20 mg 20 mg, 200 mL, Rate: Titrate, Start Dose: 5 mg/hr, Titration: 2.5 mg/hr every 15 minutes, Goal(s): SBP <185, Max Dose: 15 mg/hr, Route: IV, Dosing Weight 114.545 kg, Total Volume: 200, Start date: 12/05/16 21:19:00 CDT, Duration: 30 day, Stop date: .. Start Date: 12/05/16 Stop Date: 12/05/16 Status: Discontinued Nifedical XL 60 mg, 1 tab, Route: PO, Drug form: ERTAB, Daily, Dosing Weight 99, kg, Start da te: 12/07/16 15:48:00 CDT, Stop date: 01/06/17 9:00:00 CDT Notes: (Same as: Adalat CC, Procardia XL) Give on empty stomach. Take 1 hour be fore or 2 hours after meal; "Avoid grapefruit and grapefruit juice". Do not cru sh Start Date: 12/07/16 Stop Date: 12/10/16 Status: Discontinued NIFEdipine 60 mg oral tablet, extended release 60 mg = 1 tab, PO, Daily, # 30 tab, 0 Refill(s) Start Date: 12/10/16 Stop Date: 01/09/17 Status: Ordered Lamoni 10/325 oral tablet 2 tab, Route: PO, Drug Form: TAB, Dosing Weight 99, kg, Q6H, PRN Pain Score 7-10 , Start date: 12/09/16 9:01:00 CDT, Duration: 30 day, Stop date: 01/08/17 9:00:0 0 CDT Notes: Do not exceed 4gm/day of acetaminophen. (Same as: Lamoni 325/10) Start Date: 12/09/16 Stop Date: 12/09/16 Status: Discontinued Omnicef 300 mg oral capsule 300 mg = 1 cap, PO, Daily, X 9 day, # 9 cap, 0 Refill(s) Start Date: 12/10/16 Stop Date: 12/19/16 Status: Ordered Omnicef 300 mg oral capsule 300 mg = 1 cap, PO, Q12H, X 11 day, # 22 cap, 0 Refill(s) Start Date: 12/09/16 Stop Date: 12/09/16 Status: Discontinued Omnicef 300 mg oral capsule 300 mg = 1 cap, PO, Q12H, X 9 day, # 18 cap, 0 Refill(s) Start Date: 12/09/16 Stop Date: 12/09/16 Status: Discontinued Phenergan 12.5 mg, 1 tab, Route: PO, Drug form: TAB, Q4H, Dosing Weight 99, kg, PRN Nausea & Vomiting, Start date: 12/07/16 21:34:00 CDT, Duration: 30 day, Stop date: 01/06/17 21:33:00 CDT Notes: (Same as: Phenergan) Start Date: 12/07/16 Stop Date: 12/10/16 Status: Discontinued Phenergan 25 mg, 1 mL, Route: IVPB, Drug form: INJ, ONCE, Dosing Weight 114.545, kg, Prior ity: STAT, Start date: 12/05/16 15:51:00 CDT, Stop date: 12/05/16 15:51:00 CDT Notes: Do not give IV push. (Same as: Phenergan) Start Date: 12/05/16 Stop Date: 12/05/16 Status: Completed Protonix 40 mg, Route: IVP, Drug form: INJ, ONCE, Dosing Weight 114.545, kg, Priority: ST AT, Start date: 12/05/16 15:49:00 CDT, Stop date: 12/05/16 15:49:00 CDT Notes: For IV push reconstitute with 10 ml 0.9% sodium chloride and push over 2 minutes. (Same as: Protonix) Start Date: 12/05/16 Stop Date: 12/05/16 Status: Completed remove patch Route: LUZ MARIA, QAM, Drug form: ERFILM, Start date: 12/10/16 6:00:00 CDT, Duration: 30 day, Stop date: 01/08/17 6:00:00 CDT Notes: Remove patch 12 hours after application each day. Start Date: 12/10/16 Stop Date: 12/10/16 Status: Discontinued sevelamer 800 mg, 1 tab, Route: PO, Drug form: TAB, TID-Meals, Dosing Weight 99, kg, Start date: 12/08/16 12:00:00 CDT, Duration: 30 day, Stop date: 01/07/17 8:00:00 CDT Notes: Same as: Renvela Start Date: 12/08/16 Stop Date: 12/10/16 Status: Discontinued sevelamer 800 mg oral tablet 800 mg = 1 tab, PO, TID-Meals, # 90 tab, 0 Refill(s) Start Date: 12/10/16 Stop Date: 01/09/17 Status: Ordered Sodium Chloride 0.45% IV 1000 mL 1,000 mL, Rate: 40 ml/hr, Infuse over: 25 hr, Route: IV, Dosing Weight 114.5 kg, Total Volume: 1,000, Start date: 12/06/16 5:19:00 CDT, Duration: 30 day, Stop d ate: 01/05/17 5:18:00 CDT Start Date: 12/06/16 Stop Date: 12/06/16 Status: Discontinued sodium chloride 0.9% 1000 ml INJ 1,000 mL 1,000 mL, Rate: 1,000 ml/hr, Infuse over: 1 hr, Route: IV, Dosing Weight 114.545 kg, Total Volume: 1,000, Priority: STAT, Start date: 12/05/16 15:36:00 CDT, Dur ation: 1 doses or times, Stop date: 12/05/16 16:35:00 CDT Start Date: 12/05/16 Stop Date: 12/05/16 Status: Completed Sodium Chloride 0.9% IV 500 mL 500 mL, Rate: 500 ml/hr, Infuse over: 1 hr, Route: IV, Dosing Weight 114.545 kg, Total Volume: 500, Priority: STAT, Start date: 12/05/16 18:45:00 CDT, Duration: 1 doses or times, Stop date: 12/05/16 19:44:00 CDT Start Date: 12/05/16 Stop Date: 12/05/16 Status: Completed Sodium Chloride 0.9% IV 500 mL 500 mL, Rate: 500 ml/hr, Infuse over: 1 hr, Route: IV, Dosing Weight 114.545 kg, Total Volume: 500, Priority: STAT, Start date: 12/05/16 19:26:00 CDT, Duration: 1 doses or times, Stop date: 12/05/16 20:25:00 CDT Start Date: 12/05/16 Stop Date: 12/05/16 Status: Completed Tylenol with Codeine #3 oral tablet 2 tab, Route: PO, Drug Form: TAB, Dosing Weight 99, kg, Q4H, PRN Pain Score 4-6, Start date: 12/09/16 10:55:00 CDT, Duration: 30 day, Stop date: 01/08/17 10:54: 00 CDT Notes: Do not exceed 4gm/day of acetaminophen. (Same as: Tylenol with Codeine # 3) Start Date: 12/09/16 Stop Date: 12/10/16 Status: Discontinued vancomycin 1.5 gm, 250 mL, Route: IV, Drug form: INJ, ONCE, Dosing Weight 99, kg, Start harish e: 12/07/16 15:53:00 CDT, Stop date: 12/07/16 15:53:00 CDT, ABX Indication: Urin christo Tract Infection Notes: TIME CRITICAL MEDICATIONSame as: Vancocin-NS (premixed)Infusion rate< 1000 mg: infuse over 1 [id number] - 1500 mg: infuse over 1.5 [id number] - 2000 mg: infuse over 2 hours> 2001 mg: infuse over 2.5 hours Start Date: 12/07/16 Stop Date: 12/07/16 Status: Completed Xanax 0.5 mg oral tablet 0.5 mg, 1 tab, Route: PO, Drug form: TAB, TID, Dosing Weight 99, kg, PRN Anxiety , Start date: 12/10/16 1:35:00 CDT, Duration: 30 day, Stop date: 01/09/17 1:34:0 0 CDT Notes: With food or milk(Same as: Xanax) Start Date: 12/10/16 Stop Date: 12/10/16 Status: Discontinued Results BLOOD BANK RESULTS 1 2 3 Most recent to oldest [Reference Range]: A POS *Unknown* (12/05/16 4:10 PM) ABO/Rh Negative (12/05/16 4:10 PM) Antibody Scrn ELECTROLYTES 1 2 3 Most recent to oldest [Reference Range]: 141 mEq/L (12/10/16 2:16 AM) 142 mEq/L (12/09/16 3:50 AM) 146 mEq/L *HI* (12/08/16 4:33 AM) Sodium Lvl [135-145 mEq/L] 4.1 mEq/L (12/10/16 2:16 AM) 4.6 mEq/L (12/09/16 3:50 AM) 4.6 mEq/L (12/08/16 4:33 AM) Potassium Lvl [3.5-5.1 mEq/L] 112 mEq/L *HI* (12/10/16 2:16 AM) 113 mEq/L *HI* (12/09/16 3:50 AM) 115 mEq/L *HI* (12/08/16 4:33 AM) Chloride Lvl [95-109 mEq/L] 19 mEq/L *LOW* (12/10/16 2:16 AM) 21 mEq/L *LOW* (12/09/16 3:50 AM) 20 mEq/L *LOW* (12/08/16 4:33 AM) CO2 [24-32 mEq/L] 14.1 mEq/L (12/10/16 2:16 AM) 12.6 mEq/L (12/09/16 3:50 AM) 15.6 mEq/L (12/08/16 4:33 AM) AGAP [10.0-20.0 mEq/L] CHEM PANEL 1 2 3 Most recent to oldest [Reference Range]: 4.14 mg/dL *HI* (12/10/16 2:16 AM) 4.25 mg/dL *HI* (12/09/16 3:50 AM) 4.56 mg/dL *HI* (12/08/16 4:33 AM) Creatinine Lvl [0.50-1.40 mg/dL] 12 mL/min/1.73m2 1 *NA* (12/10/16 2:16 AM) 12 mL/min/1.73m2 2 *NA* (12/09/16 3:50 AM) 11 mL/min/1.73m2 3 *NA* (12/08/16 4:33 AM) eGFR 34 mg/dL *HI* (12/10/16 2:16 AM) 37 mg/dL *HI* (12/09/16 3:50 AM) 42 mg/dL *HI* (12/08/16 4:33 AM) BUN [7-22 mg/dL] 9 (12/06/16 4:04 AM) B/C Ratio [6-25] 118 mg/dL *HI* (12/10/16 2:16 AM) 80 mg/dL (12/09/16 3:50 AM) 63 mg/dL *LOW* (12/08/16 4:33 AM) Glucose Lvl [70-99 mg/dL] 5.6 g/dL *LOW* (12/06/16 4:04 AM) 7.2 g/dL (12/05/16 3:48 PM) Total Protein [6.4-8.4 g/dL] 1.7 g/dL *LOW* (12/06/16 4:04 AM) 2.3 g/dL *LOW* (12/05/16 3:48 PM) Albumin Lvl [3.5-5.0 g/dL] 3.9 g/dL (12/06/16 4:04 AM) 4.9 g/dL *HI* (12/05/16 3:48 PM) Globulin [2.7-4.2 g/dL] 0.4 *LOW* (12/06/16 4:04 AM) 0.5 *LOW* (12/05/16 3:48 PM) A/G Ratio [0.7-1.6] 8.2 mg/dL *LOW* (12/10/16 2:16 AM) 7.9 mg/dL *LOW* (12/09/16 3:50 AM) 8.3 mg/dL *LOW* (12/08/16 4:33 AM) Calcium Lvl [8.5-10.5 mg/dL] 5.3 mg/dL *HI* (12/09/16 3:50 AM) 6.6 mg/dL *HI* (12/08/16 4:33 AM) 6.7 mg/dL *HI* (12/06/16 4:04 AM) Phosphorus [2.5-4.5 mg/dL] 1.7 mg/dL *LOW* (12/06/16 4:04 AM) Magnesium Lvl [1.8-2.4 mg/dL] 8 unit/L (12/06/16 4:04 AM) 9 unit/L (12/05/16 3:48 PM) ALT [0-65 unit/L] 9 unit/L (12/06/16 4:04 AM) 14 unit/L (12/05/16 3:48 PM) AST [0-37 unit/L] 79 unit/L (12/06/16 4:04 AM) 111 unit/L (12/05/16 3:48 PM) Alk Phos [39-136 unit/L] 0.3 mg/dL (12/06/16 4:04 AM) 0.5 mg/dL (12/05/16 3:48 PM) Bili Total [0.2-1.3 mg/dL] <0.05 mg/dL (12/05/16 3:48 PM) Bili Direct [0.0-0.3 mg/dL] See Note 4 (12/05/16 3:48 PM) Bili Indirect [0.0-1.0] 37 unit/L (12/06/16 4:04 AM) Amylase Lvl [25-115 unit/L] 184 unit/L (12/06/16 4:04 AM) 216 unit/L (12/05/16 3:48 PM) Lipase Lvl [73-393 unit/L] 1.5 mMol/L (12/05/16 4:05 PM) Lactic Acid Lvl [0.5-2.2 mMol/L] 1Result Comment: [...] be mul tiplied by the estimated BMI. 4Result Comment: Bili Indirect cannot be calculated due to low analyte value CARDIAC ENZYMES 1 2 3 Most recent to oldest [Reference Range]: 0.04 ng/mL (12/06/16 5:31 AM) Troponin-I [0.00-0.40 ng/mL] LIPIDS 1 2 3 Most recent to oldest [Reference Range]: 5.85 *HI* (12/06/16 4:04 AM) CHD Risk [3.90-5.80] 240 mg/dL *HI* (12/06/16 4:04 AM) Chol [<=199 mg/dL] 139 mg/dL (12/06/16 4:04 AM) Trig [<=149 mg/dL] 41 mg/dL *LOW* (12/06/16 4:04 AM) HDL [>=61 mg/dL] 171 mg/dL *HI* (12/06/16 4:04 AM) LDL (Calculated) [<=99 mg/dL] 28 *NA* (12/06/16 4:04 AM) VLDL SPECIAL CHEMISTRY 1 2 3 Most recent to oldest [Reference Range]: 4.7 % (12/06/16 3:00 AM) Hgb A1C [<=5.6 %] TOXICOLOGY 1 2 3 Most recent to oldest [Reference Range]: 20:30 *NA* (12/08/16 9:19 PM) Angeloo Tr TND 18.6 ug/ml *NA* (12/08/16 9:19 PM) Vanco Tr URINE CHEM 1 2 3 Most recent to oldest [Reference Range]: 71.40 mg/dL *NA* (12/06/16 5:31 AM) U Creatinine 73 mEq/L *NA* (12/06/16 5:31 AM) U Sodium 65 mEq/L *NA* (12/06/16 5:31 AM) U Chloride Negative (12/05/16 10:20 PM) U Preg [Negative] URINE AND STOOL 1 2 3 Most recent to oldest [Reference Range]: Clear (12/07/16 6:42 PM) Clear (12/05/16 10:20 PM) UA Turbidity [Clear] Light Yellow *NA* (12/07/16 6:42 PM) Yellow *NA* (12/05/16 10:20 PM) UA Color [Yellow] 6.5 (12/07/16 6:42 PM) UA pH [5.0-8.0] 7.0 (12/05/16 10:20 PM) UA pH [5.0-8.0] 1.007 (12/07/16 6:42 PM) UA Spec Grav [<=1.030] 1.020 (12/05/16 10:20 PM) UA Spec Grav [<=1.030] Negative mg/dL *NA* (12/07/16 6:42 PM) 250 mg/dL *ABN* (12/05/16 10:20 PM) UA Glucose [Negative mg/dL] Negative (12/07/16 6:42 PM) Small *ABN* (12/05/16 10:20 PM) UA Blood [Negative] Negative mg/dL *NA* (12/07/16 6:42 PM) UA Ketones [Negative mg/dL] Negative *NA* (12/05/16 10:20 PM) UA Ketones [Negative] >=300 mg/dL *ABN* (12/07/16 6:42 PM) >=300 mg/dL *ABN* (12/05/16 10:20 PM) UA Protein [Negative mg/dL] <=1.0 mg/dL *NA* (12/07/16 6:42 PM) UA Urobilinogen [0.1-1.0 mg/dL] 0.2 EU/dL (12/05/16 10:20 PM) UA Urobilinogen [0.1-1.0 EU/dL] Negative *NA* (12/07/16 6:42 PM) Negative *NA* (12/05/16 10:20 PM) UA Bili [Negative] Small *ABN* (12/07/16 6:42 PM) Negative (12/05/16 10:20 PM) UA Leuk Est [Negative] Negative (12/07/16 6:42 PM) Negative (12/05/16 10:20 PM) UA Nitrite [Negative] 6 /HPF *HI* (12/07/16 6:42 PM) UA WBC [0-5 /HPF] 0-2 /HPF (12/05/16 10:20 PM) UA WBC [None Seen /HPF] 3-5 /HPF *ABN* (12/05/16 10:20 PM) UA RBC [0-2 /HPF] Few /HPF *NA* (12/07/16 6:42 PM) Occasional /HPF (12/05/16 10:20 PM) UA Bacteria [None Seen /HPF] None Seen *NA* (12/07/16 6:42 PM) UA Sq Epi Rare /LPF (12/05/16 10:20 PM) UA Sq Epi [Few /LPF] Few /LPF *NA* (12/07/16 6:42 PM) UA Mucus [None Seen /LPF] IMMUNOLOGY 1 2 3 Most recent to oldest [Reference Range]: Reactive *ABN* (12/07/16 3:01 AM) Treponemal Scr [Non Reactive] Non Reactive (12/07/16 3:01 AM) RPR [Non Reactive] Reactive *ABN* (12/07/16 3:01 AM) T pallidum Ab [Non Reactive] HEMATOLOGY 1 2 3 Most recent to oldest [Reference Range]: 4.8 K/CMM (12/08/16 4:33 AM) 6.1 K/CMM (12/07/16 3:01 AM) 8.4 K/CMM (12/06/16 4:04 AM) WBC [3.7-10.4 K/CMM] 3.20 M/CMM *LOW* (12/08/16 4:33 AM) 3.15 M/CMM *LOW* (12/07/16 3:01 AM) 3.05 M/CMM *LOW* (12/06/16 4:04 AM) RBC [4.20-5.40 M/CMM] 9.4 g/dL *LOW* (12/08/16 4:33 AM) 9.2 g/dL *LOW* (12/07/16 3:01 AM) 9.0 g/dL *LOW* (12/06/16 4:04 AM) Hgb [12.0-16.0 g/dL] 28.3 % *LOW* (12/08/16 4:33 AM) 28.5 % *LOW* (12/07/16 3:01 AM) 27.0 % *LOW* (12/06/16 4:04 AM) Hct [36.0-48.0 %] 88.4 fL (12/08/16 4:33 AM) 90.7 fL (12/07/16 3:01 AM) 88.6 fL (12/06/16 4:04 AM) MCV [80.0-98.0 fL] 29.4 pg (12/08/16 4:33 AM) 29.3 pg (12/07/16 3:01 AM) 29.3 pg (12/06/16 4:04 AM) MCH [27.0-31.0 pg] 33.3 g/dL (12/08/16 4:33 AM) 32.3 g/dL (12/07/16 3:01 AM) 33.1 g/dL (12/06/16 4:04 AM) MCHC [32.0-36.0 g/dL] 16.2 % *HI* (12/08/16 4:33 AM) 16.8 % *HI* (12/07/16 3:01 AM) 16.1 % *HI* (12/06/16 4:04 AM) RDW [11.5-14.5 %] 256 K/CMM (12/08/16 4:33 AM) 259 K/CMM (12/07/16 3:01 AM) 301 K/CMM (12/06/16 4:04 AM) Platelet [133-450 K/CMM] 8.7 fL (12/08/16 4:33 AM) 8.0 fL (12/07/16 3:01 AM) 8.6 fL (12/06/16 4:04 AM) MPV [7.4-10.4 fL] 48.9 % (12/08/16 4:33 AM) 29.8 % *LOW* (12/07/16 3:01 AM) 59.1 % (12/06/16 4:04 AM) Segs [45.0-75.0 %] 39.3 % (12/08/16 4:33 AM) 58.2 % *HI* (12/07/16 3:01 AM) 31.5 % (12/06/16 4:04 AM) Lymphocytes [20.0-40.0 %] 8.8 % (12/08/16 4:33 AM) 8.0 % (12/07/16 3:01 AM) 8.5 % (12/06/16 4:04 AM) Monocytes [2.0-12.0 %] 2.0 % (12/08/16 4:33 AM) 2.8 % (12/07/16 3:01 AM) 0.1 % (12/06/16 4:04 AM) Eosinophils [0.0-4.0 %] 1.0 % (12/08/16 4:33 AM) 1.2 % *HI* (12/07/16 3:01 AM) 0.8 % (12/06/16 4:04 AM) Basophils [0.0-1.0 %] 2.3 K/CMM (12/08/16 4:33 AM) 1.8 K/CMM (12/07/16 3:01 AM) 5.0 K/CMM (12/06/16 4:04 AM) Segs-Bands # [1.5-8.1 K/CMM] 1.9 K/CMM (12/08/16 4:33 AM) 3.6 K/CMM (12/07/16 3:01 AM) 2.6 K/CMM (12/06/16 4:04 AM) Lymphocytes # [1.0-5.5 K/CMM] 0.4 K/CMM (12/08/16 4:33 AM) 0.5 K/CMM (12/07/16 3:01 AM) 0.7 K/CMM (12/06/16 4:04 AM) Monocytes # [0.0-0.8 K/CMM] 0.1 K/CMM (12/08/16 4:33 AM) 0.2 K/CMM (12/07/16 3:01 AM) 0.1 K/CMM (12/05/16 3:48 PM) Eosinophils # [0.0-0.5 K/CMM] 0.1 K/CMM (12/07/16 3:01 AM) 0.1 K/CMM (12/06/16 4:04 AM) 0.1 K/CMM (12/05/16 3:48 PM) Basophils # [0.0-0.2 K/CMM] 13.8 seconds (12/09/16 3:50 AM) 12.9 seconds (12/05/16 3:48 PM) PT [12.0-14.7 seconds] 1.04 (12/09/16 3:50 AM) 0.95 (12/05/16 3:48 PM) INR [0.85-1.17] 31.9 seconds (12/09/16 3:50 AM) 31.9 seconds (12/05/16 3:48 PM) PTT [22.9-35.8 seconds] Immunizations Given and Recorded Vaccine Date Status [...] Extracted from: Title: Infection Control Isolation Author: Ignacia Martinez Date: 12/09/16 Alert ISOLATION ALERT 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 AND This patient has a history of infection/colonization with a multi-drug resistant organism. Organism Site Date VREurine12/06/16 MDR-E.coliurine12/06/16 ESBL Klebsiellaurine10/11/16 MRSAright foot qhcphbai84/1/16 Isolation Required: CONTACT Before isolation precautions may [...] and at least one should be an financial recruiter specimen Sputum Varicella Maintain precautions until all [...] any questions. We can be reached at [phone]. Extracted from: Title: Team A Progress Note Author: Maria C Gibson MD Date: Assessment/Plan Mrs. 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 12/10/2016 10:11 CDT Extracted from: Title: General Admission H&P Author: Tavon Hardy MD te: 12/06/16 Impression and Plan Ms. Hernandez is a 41 y/o obese woman with sudden onset abdominal pain and vomiting possibly secondary to pancreatitis. 1. Abdominal pain, possibly secondary to pancreatitis - amylase and lipase could be normal in patients with prior episodes of pancreatitis - will check CT of abdomen/pelvic for ch anges in pancreas and possible gall stones left after cholecystectomy - will keep NPO for now - will do abdominal ultrasound to check for choledocolithiasis and biliary tract diseases- Patient is s/p cholecystectomy - will check lipid panel for hypertrigly ceridemia 2. ALDO on CKD - will check renal ultrasound for struct ural damage - bladder scan by nurse showed [...] 210/150 - however, after multiple doses of labet alol, hydralazine, carvedilol BP dropped too quickly to SBP in 90's - will continue to monitor for now and h old home medications - monitor on telemetry - monitor for mental status changes due to quick drop in blood pressure 4. Normocytic Anemia - HgB currently at 11.1; higher than pre vious admission of 8.8 - most likely due to CKD - continue to monitor - consider iron studies if changes in Hg B 5. T2DM - on detemir 15 units [...]
--- OUTSIDE RECORDS SUMMARY | 2019-09-10 20:10 | XMS REPORT | Summary of Care ---
Author Author [facility] Organization [facility] Address Unknown Phone Unavailable Encounter HQ [place](FIN) [id number] Date(s): 01/06/19 - 01/07/19 [facility] [address] [place] [address]- [phone] Encounter Diagnosis Fluid overload (Discharge Diagnosis) - 01/06/19 ESRD (end stage renal disease) (Discharge Diagnosis) - 01/06/19 Hypertensive emergency (Discharge Diagnosis) - 01/06/19 Acute pulmonary edema (Discharge Diagnosis) - 01/06/19 Discharge Disposition: Home or Self Care Attending Physician: Joe Campuzano MD Admitting Physician: Joe Campuzano MD Vital Signs 1 2 3 Most recent to oldest [Reference Range]: 167.64 cm (01/07/19 5:37 AM) 167.64 cm (01/06/19 2:37 AM) Height 119.909 kg (01/07/19 5:37 AM) Current Weight 98.8 DegF (01/07/19 3:00 PM) 98.7 DegF (01/07/19 2:10 PM) 98.7 DegF (01/07/19 11:10 AM) Temperature Oral [96.4-99.1 DegF] 150/80 mmHg *HI* (01/07/19 3:00 PM) 131/85 mmHg (01/07/19 2:12 PM) 127/81 mmHg (01/07/19 2:10 PM) Blood Pressure [90-140/60-90 mmHg] 16 BRMIN (01/07/19 3:00 PM) 15 BRMIN (01/07/19 2:12 PM) 15 BRMIN (01/07/19 2:10 PM) Respiratory Rate [14-20 BRMIN] 92 bpm (01/07/19 4:43 AM) 99 bpm (01/07/19 12:24 AM) 112 bpm *HI* (01/06/19 9:02 PM) Peripheral Pulse Rate [60-100 bpm] 114.091 kg (01/06/19 2:37 AM) Weight 40.6 m2 (01/06/19 2:37 AM) Body Mass Index Problem List Condition Effective Dates Status Health Status Informan t Anxiety(Confirmed) Resolved Chronic Resolved depression(Confirmed ) CKD (chronic kidney 09/01/15 Resolved disease)(Confirmed) Diabetes Resolved mellitus(Confirmed) Diabetes Resolved mellitus(Confirmed) Kidney Resolved disease(Confirmed) DM (diabetes 08/31/09 - 09/07/16 Resolved mellitus)(Confirmed) Escherichia 12/06/16 Active coli(Confirmed)1, 2, 3, 4 Biliary < 08/16/16 Resolved colic(Confirmed) Below knee Active amputation status(Confirmed)5 HTN - 08/31/09 - 09/07/16 Resolved Hypertension(Confirm ed) Hypercholesteremia(C Resolved onfirmed) HLD Resolved (hyperlipidemia)(Con firmed) Hypertension(Confirm Resolved ed) Klebsiella(Confirmed 10/11/16 Active )6, 7, 8 Left heart failure Active with preserved LV function(Confirmed) Metabolic Active acidosis(Confirmed) MRSA(Confirmed)9, 10 11/29/13 Active Pancreatitis(Confirm Resolved ed) VRE(Confirmed)11, 12 12/06/16 Active 1urine - 12/06/16 2urine - 09/15/16 (ESBL) 3E.coli, 09/15/2016 4Problem added by Discern Expert. 5Right sided BKA 6urine - 10/11/16 (ESBL) 7Blood, 03/29/2016 8Problem added by Discern Expert. 9Left buttock abscess, 11/29/2013 10Problem added by Discern Expert. 11urine - 12/06/16 12Problem added by Discern Expert. Allergies, Adverse Reactions, Alerts Substance Reaction Severity Status Zofran Active Phenergan Active Tylenol Active [place] Active traMADol Active Medications acetaminophen-codeine #3 1 tab, Route: PO, Drug Form: TAB, Dosing Weight 114.091, kg, Q6H, PRN Pain Score 1-3, Start date: 01/06/19 9:21:00 CDT, Duration: 30 day, Stop date: 02/05/19 9: 20:00 CDT, 0 Notes: Do not exceed 4gm/day of acetaminophen. (Same as: Tylenol with Codeine # 3) Start Date: 01/06/19 Stop Date: 01/06/19 Status: Discontinued carvedilol 12.5 mg, 1 tab, Route: PO, Drug form: TAB, Q12H, Dosing Weight 114.091, kg, Prio rity: NOW, Start date: 01/07/19 5:06:00 CDT, Duration: 30 day, Stop date: 21:00:00 CDT, 0 Notes: Give with food. (Same As: Coreg) Start Date: 01/07/19 Stop Date: 01/07/19 Status: Discontinued Dextrose 50% Syringe 12.5 gm, 25 mL, Route: IVP, Drug Form: INJ, Dosing Weight 114.091, kg, PRN, PRN Blood Glucose Results, Start date: 01/06/19 10:53:00 CDT, Duration: 30 day, Stop date: 02/05/19 10:52:00 CDT, 0 Start Date: 01/06/19 Stop Date: 01/07/19 Status: Discontinued Dextrose 50% Syringe 25 gm, 50 mL, Route: IVP, Drug Form: INJ, Dosing Weight 114.091, kg, PRN, PRN Bl ood Glucose Results, Start date: 01/06/19 10:53:00 CDT, Duration: 30 day, Stop d ate: 02/05/19 10:52:00 CDT, 0 Start Date: 01/06/19 Stop Date: 01/07/19 Status: Discontinued gabapentin 50 mg, 1 mL, Route: PO, Drug form: SOLN, ONCE, Dosing Weight 114.091, kg, Priori ty: NOW, Start date: 01/06/19 21:33:00 CDT, Stop date: 01/06/19 21:33:00 CDT, 0 Notes: (Same as: Neurontin) Start Date: 01/06/19 Stop Date: 01/06/19 Status: Completed glucagon 1 mg, Route: IM, Drug form: PDR/INJ, PRN, Dosing Weight 114.091, kg, PRN Blood G lucose Results, Start date: 01/06/19 10:53:00 CDT, Duration: 30 day, Stop date: 02/05/19 10:52:00 CDT, 0 Start Date: 01/06/19 Stop Date: 01/07/19 Status: Discontinued heparin 5000 units/mL injectable solution 5,000 unit, 1 mL, Route: SUB-Q, Drug form: INJ, Q12H, Dosing Weight 114.091, kg, Start date: 01/06/19 9:00:00 CDT, Duration: 30 day, Stop date: 02/04/19 21:00:00 CDT, 0 Notes: porcine heparin Start Date: 01/06/19 Stop Date: 01/07/19 Status: Discontinued hydrALAZINE 50 mg, 1 tab, Route: PO, Drug form: TAB, Q6H, Dosing Weight 114.091, kg, Start d ate: 01/06/19 12:00:00 CDT, Duration: 30 day, Stop date: 02/05/19 6:00:00 CDT, 0 Notes: (Same as: Apresoline) May interfere w/enteral feedings Take With Food Start Date: 01/06/19 Stop Date: 01/07/19 Status: Discontinued insulin lispro 2 unit, 0.02 mL, Route: SUB-Q, Drug form: SOLN, TID-Before Meals, Dosing Weight 114.091, kg, PRN Blood Glucose Results, Start date: 01/06/19 10:53:00 CDT, Durat ion: 30 day, Stop date: 02/05/19 10:52:00 CDT, 0 Notes: (Same as: Humalog) Roll in palms of hands gently; Do not shake vigorously . WASTE: F/P - Black; E - Municipal Trash BinStable for 28 days at room tempera ture.Expires in days from Date Start Date: 01/06/19 Stop Date: 01/07/19 Status: Discontinued insulin lispro 4 unit, 0.04 mL, Route: SUB-Q, Drug form: SOLN, TID-Before Meals, Dosing Weight 114.091, kg, PRN Blood Glucose Results, Start date: 01/06/19 10:53:00 CDT, Durat ion: 30 day, Stop date: 02/05/19 10:52:00 CDT, 0 Notes: (Same as: Humalog) Roll in palms of hands gently; Do not shake vigorously . WASTE: F/P - Black; E - Municipal Trash BinStable for 28 days at room [facility].Expires in days from Date Start Date: 01/06/19 Stop Date: 01/07/19 Status: Discontinued insulin lispro 6 unit, 0.06 mL, Route: SUB-Q, Drug form: SOLN, TID-Before Meals, Dosing Weight 114.091, kg, PRN Blood Glucose Results, Start date: 01/06/19 10:53:00 CDT, Durat ion: 30 day, Stop date: 02/05/19 10:52:00 CDT, 0 Notes: (Same as: Humalog) Roll in palms of hands gently; Do not shake vigorously . WASTE: F/P - Black; E - Municipal Trash BinStable for 28 days at room [facility].Expires in days from Date Start Date: 01/06/19 Stop Date: 01/07/19 Status: Discontinued insulin lispro 8 unit, 0.08 mL, Route: SUB-Q, Drug form: SOLN, TID-Before Meals, Dosing Weight 114.091, kg, PRN Blood Glucose Results, Start date: 01/06/19 10:53:00 CDT, Durat ion: 30 day, Stop date: 02/05/19 10:52:00 CDT, 0 Notes: (Same as: Humalog) Roll in palms of hands gently; Do not shake vigorously . WASTE: F/P - Black; E - Municipal Trash BinStable for 28 days at room [facility].Expires in days from Date Start Date: 01/06/19 Stop Date: 01/07/19 Status: Discontinued insulin lispro 10 unit, 0.1 mL, Route: SUB-Q, Drug form: SOLN, TID-Before Meals, Dosing Weight 114.091, kg, PRN Blood Glucose Results, Start date: 01/06/19 10:53:00 CDT, Durat ion: 30 day, Stop date: 02/05/19 10:52:00 CDT, 0 Notes: (Same as: Humalog) Roll in palms of hands gently; Do not shake vigorously . WASTE: F/P - Black; E - Municipal Trash BinStable for 28 days at room tempera ture.Expires in days from Date Start Date: 01/06/19 Stop Date: 01/07/19 Status: Discontinued Lasix 40 mg, 4 mL, Route: IVP, Drug form: INJ, ONCE, Dosing Weight 113.182, kg, Priori ty: STAT, Start date: 01/06/19 2:09:00 CDT, Stop date: 01/06/19 2:09:00 CDT, 0 Notes: (Same as: Lasix) MEDICATION WASTE Product Size: 40 mgProduct Was savana: ___ mg Start Date: 01/06/19 Stop Date: 01/06/19 Status: Completed metoprolol tartrate 25 mg, 1 tab, Route: PO, Drug form: TAB, Q12H, Dosing Weight 114.091, kg, Start date: 01/06/19 11:00:00 CDT, Duration: 30 day, Stop date: 02/05/19 9:00:00 CDT, 0 Notes: (Same as: Lopressor) Start Date: 01/06/19 Stop Date: 01/07/19 Status: Discontinued nitroglycerin 50 mg in D5W 250 mL (Titrate.) IV 100 mg 100 mg, 250 mL, Rate: Titrate, Start Dose: 200 microgram/min, Titration: 10 micr ogram/min every 5 minutes, Goal(s): Chest pain and SBP between 180 - 200 mmHg, M ax Dose: 400 mcg/min, Route: IV, Dosing Weight 113.182 kg, Total Volume: 250, St art date: 0... Notes: (Same as:Tridil) Final conc = 0.4 mg/ml. Premix bottle. Start Date: 01/06/19 Stop Date: 01/07/19 Status: Discontinued nystatin topical 100,000 units/g powder 1 appl, Route: TOP, PRN, Drug form: PWDR, PRN For Fungal Prophylaxis, Start date : 01/06/19 7:01:00 CDT, Duration: 30 day, Stop date: 02/05/19 7:00:00 CDT, 0 Notes: (Same as:Mycostatin, Nilstat) For external use only. Start Date: 01/06/19 Stop Date: 01/07/19 Status: Discontinued Reglan 10 mg, Route: IVP, Drug form: INJ, ONCE, Dosing Weight 114.091, kg, Priority: ST AT, Start date: 01/06/19 4:09:00 CDT, Stop date: 01/06/19 4:09:00 CDT Start Date: 01/06/19 Stop Date: 01/06/19 Status: Completed Saline Flush 0.9% 10 ml, Route: IVP, Drug Form: INJ, Dosing Weight 114.091, kg, Q12H, Start date: 01/06/19 9:00:00 CDT, Duration: 30 day, Stop date: 02/04/19 21:00:00 CDT, 0 Notes: (Same as: BD Posiflush) Start Date: 01/06/19 Stop Date: 01/07/19 Status: Discontinued Saline Flush 0.9% 10 ml, Route: IVP, Drug Form: INJ, Dosing Weight 114.091, kg, PRN, PRN Line Flus h, Start date: 01/06/19 7:01:00 CDT, Duration: 30 day, Stop date: 02/05/19 7:00: 00 CDT, 0 Notes: (Same as: BD Posiflush) Start Date: 01/06/19 Stop Date: 01/07/19 Status: Discontinued Results Most recent to 1 2 oldest [Reference Range]: Neutrophils # 7.2 K/CMM [1.5-8.1 K/CMM] (01/06/19 2:24 AM) Lymphocytes # 2.8 K/CMM [1.0-5.5 K/CMM] (01/06/19 2:24 AM) Monocytes # [0.0-0.8 0.5 K/CMM K/CMM] (01/06/19 2:24 AM) Eosinophils # 0.3 K/CMM [0.0-0.5 K/CMM] (01/06/19 2:24 AM) Basophils # [0.0-0.2 0.2 K/CMM K/CMM] (01/06/19 2:24 AM) BNP [<=100 pg/mL] 1070 pg/mL *HI* (01/06/19 2:24 AM) MRSA by PCR Positive 1 *ABN* (01/06/19 9:07 AM) eGFR 5 mL/min/1.73m2 2 4 mL/min/1.73m2 3 *NA* *NA* (01/07/19 6:08 AM) (01/06/19 2:24 AM) A/G Ratio [0.7-1.6] 0.6 *LOW* (01/06/19 2:24 AM) Albumin Lvl [3.5-5.0 3.1 g/dL g/dL] *LOW* (01/06/19 2:24 AM) Alk Phos [39-136 97 unit/L unit/L] (01/06/19 2:24 AM) ALT [0-65 unit/L] 14 unit/L (01/06/19 2:24 AM) AGAP [10.0-20.0 12.6 mEq/L 14.3 mEq/L mEq/L] (01/07/19 6:08 AM) (01/06/19 2:24 AM) AST [0-37 unit/L] 10 unit/L (01/06/19 2:24 AM) B/C Ratio [6-25] 5 *LOW* (01/06/19 2:24 AM) Basophils [0.0-1.0 1.5 % %] *HI* (01/06/19 2:24 AM) BUN [7-22 mg/dL] 42 mg/dL 60 mg/dL *HI* *HI* (01/07/19 6:08 AM) (01/06/19 2:24 AM) Calcium Lvl 7.7 mg/dL 7.8 mg/dL [8.5-10.5 mg/dL] *LOW* *LOW* (01/07/19 6:08 AM) (01/06/19 2:24 AM) Chloride Lvl [95-109 107 mEq/L 104 mEq/L mEq/L] (01/07/19 6:08 AM) (01/06/19 2:24 AM) CO2 [24-32 mEq/L] 22 mEq/L 24 mEq/L *LOW* (01/06/19 2:24 AM) (01/07/19 6:08 AM) Creatinine Lvl 9.12 mg/dL 11.10 mg/dL [0.50-1.40 mg/dL] *HI* *HI* (01/07/19 6:08 AM) (01/06/19 2:24 AM) Eosinophils [0.0-4.0 2.4 % %] (01/06/19 2:24 AM) Globulin [2.7-4.2 4.8 g/dL g/dL] *HI* (01/06/19 2:24 AM) Glucose Lvl [70-99 203 mg/dL 217 mg/dL mg/dL] *HI* *HI* (01/07/19 6:08 AM) (01/06/19 2:24 AM) Hep Bs Ag [Negative] Negative *NA* (01/06/19 10:45 AM) Hct [36.0-48.0 %] 26.2 % 27.9 % *LOW* *LOW* (01/07/19 6:08 AM) (01/06/19 2:24 AM) Hgb [12.0-16.0 g/dL] 8.7 g/dL 9.4 g/dL *LOW* *LOW* (01/07/19 6:08 AM) (01/06/19 2:24 AM) INR [0.85-1.17] 1.07 (01/06/19 2:24 AM) Potassium Lvl 4.6 mEq/L 5.3 mEq/L [3.5-5.1 mEq/L] (01/07/19 6:08 AM) *HI* (01/06/19 2:24 AM) Lactic Acid Lvl 1.3 mMol/L 0.9 mMol/L [0.5-2.2 mMol/L] (01/06/19 8:24 AM) (01/06/19 2:24 AM) Lymphocytes 25.6 % [20.0-40.0 %] (01/06/19 2:24 AM) MCH [27.0-31.0 pg] 31.7 pg 32.2 pg *HI* *HI* (01/07/19 6:08 AM) (01/06/19 2:24 AM) MCHC [32.0-36.0 33.3 g/dL 33.6 g/dL g/dL] (01/07/19 6:08 AM) (01/06/19 2:24 AM) MCV [80.0-98.0 fL] 95.3 fL 95.8 fL (01/07/19 6:08 AM) (01/06/19 2:24 AM) Magnesium Lvl 2.0 mg/dL 1.8 mg/dL [1.8-2.4 mg/dL] (01/07/19 6:08 AM) (01/06/19 2:24 AM) Monocytes [2.0-12.0 4.6 % %] (01/06/19 2:24 AM) MPV [7.4-10.4 fL] 8.9 fL 8.7 fL (01/07/19 6:08 AM) (01/06/19 2:24 AM) Sodium Lvl [135-145 137 mEq/L 137 mEq/L mEq/L] (01/07/19 6:08 AM) (01/06/19 2:24 AM) Phosphorus [2.5-4.5 7.8 mg/dL 9.0 mg/dL mg/dL] *HI* *HI* (01/07/19 6:08 AM) (01/06/19 2:24 AM) Platelet [133-450 269 K/CMM 306 K/CMM K/CMM] (01/07/19 6:08 AM) (01/06/19 2:24 AM) Segs [45.0-75.0 %] 65.9 % (01/06/19 2:24 AM) Total Protein 7.9 g/dL [6.4-8.4 g/dL] (01/06/19 2:24 AM) PT [12.0-14.7 13.7 seconds seconds] (01/06/19 2:24 AM) PTT [22.9-35.8 34.9 seconds seconds] (01/06/19 2:24 AM) RBC [4.20-5.40 2.75 M/CMM 2.92 M/CMM M/CMM] *LOW* *LOW* (01/07/19 6:08 AM) (01/06/19 2:24 AM) RDW [11.5-14.5 %] 17.2 % 16.9 % *HI* *HI* (01/07/19 6:08 AM) (01/06/19 2:24 AM) Bili Total [0.2-1.3 0.4 mg/dL mg/dL] (01/06/19 2:24 AM) Troponin-I <0.02 ng/mL [0.00-0.40 ng/mL] (01/06/19 2:24 AM) WBC [3.7-10.4 K/CMM] 7.6 K/CMM 10.9 K/CMM (01/07/19 6:08 AM) *HI* (01/06/19 2:24 AM) 1Result Comment: "Significant Findings called to NOAH Johnson at 01/07/2019 02:05 by LF. Read Back OK." 2Result Comment: The eGFR is calculated using [...] be mul tiplied by the estimated BMI. Immunizations Given and Recorded Vaccine Date Status Refusal Reason influenza virus vaccine, inactivated 01/10/17 G iven influenza virus vaccine, inactivated 01/08/16 G iven pneumococcal 23-valent vaccine 01/08/16 Given pneumococcal 23-valent vaccine 11/26/13 Given Procedures Procedure Date Related Diagnosis Body Site Status Amputation1 Completed Amputation below-knee2 Completed Catheter procedure Completed section3 Completed section Completed Cholecystectomy Completed 12 toes in R foot 14/12/16 3x6 Social History Social History Type Response Alcohol Past, Type Wine. Frequency : 1-2 times per month. 12 Drinks/Episode average. 12.00 Drinks/Episode maximum. Last use: July. Started age 15 Years. Previous treatment: None. Alco hol use interferes with work or home: No. Drinks more than intended: N o. Others hurt by drinking: No. Ready to change: No. Household alcohol concerns: No.1 Exercise Exercise duration: 30. Exe rcise frequency: 1-2 times/week. Self assessment: Good condition. Exercise t ype: Walking. Sexual Sexually active: No. Substance Abuse Use: None. Smoking Status Never smoker; Type: Cigaret rosie; Previous treatment: None; Exposure to Tobacco Smoke None; Cigarette Smoking L ast 365 Days No; Reg Smoking Cessation Counseling No entered on: 01/06/19 1pt denies current alcohol use Assessment and Plan Extracted from: Title: Nephrology * Author: Ernie Woods MD Date : 01/07/19 Impression and Plan Hyperkalemia resolved with [...] RN as well as Dr Campuzano Extracted from: Title: Clinical Document Author: Joe Campuzano MD Date: [...] Follow-up with nephrology services as outpatient. 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 Lining Folder consulted for further management. Patient reports recent [...] pt as per HPI Allergies Allergies (5) ActiveReaction PhenerganNone documented ZofranNone documented traMADolNone documented TylenolNone documented NorcoNone documented Procedure History section Amputation section Amputation [...] Labs (Last four charted values) WBC H 10.9(JAN 06) Hgb L 9.4(JAN 06) Hct L 27.9(JAN 06) Plt 306(JAN 06) Na 137(JAN 06) K H 5.3(JAN 06) CO2 24(JAN 06) Cl 104(JAN 06) Cr H 11.10(JAN 06) BUN H 60(JAN 06) Glucose Random H 217(JAN 06) Mg 1.8(JAN 06) Phos H 9.0(JAN 06) Ca L 7.8(JAN 06) PT 13.7(JAN 06) INR 1.07(JAN 06) PTT 34.9(JAN 06) Troponin <0.02(JAN 06) All imaging reviewed. Objective: I&ORecordInOutBal 24hr Tot 0 0 0 24hr Tot 0 0 0 CCL error: %YMU-R-567-SMT_EDOC_COMMON(0,0,56)[id number] on array out of bound at (size:1,occur:10). CCL error: %QND-V-230-SMT_EDOC_COMMON(0,0,56)[id number] on array out of bound at (size:1,occur:5). CCL error: %KVG-E-177-SMT_EDOC_COMMON(0,0,56)[id number] on array out of bound at (size:1,occur:5). CCL error: %YTB-Y-490-SMT_EDOC_COMMON(0,0,56)[id number] on array out of bound at (size:1,occur:7). CCL error: %SYZ-Z-801-SMT_EDOC_COMMON(0,0,56)[id number] on array out of bound at (size:1,occur:2). (no lines, tubes, drains information doc umented) 01/06/2019 06:15 SpO2 [id number] 01/06/2019 03:45 PEEP/CPAP7 FIO2 (%)45 Inspiratory Kvqupadd90 01/06/2019 02:04 Non-Invasive Vent ModeBIPAP Pressure Ukbpmxc30 Ambu Bag Mask to O2Yes Resp Rate, Cfhrfr19 Peak Pressure (cmH2O)14 Vital Signs (last 24 hrs) Last Charted Temp Oral97.6 DegF (JAN 06 04:30) Heart Rate ApicalH 102bpm (JAN 06 06:15) Resp Rate L 13BRMIN (JAN 06 06:15) Aecdue889.09 kg (JAN 06 02:37) Hsiqce665.64 cm (JAN 06 02:37) BMI40.6 (JAN 06 02:37) Exam: General: Obese, moderate [...]
--- OUTSIDE RECORDS SUMMARY | 2019-09-10 20:10 | XMS REPORT | Summary of Care ---
Author Author [facility] Organization [facility] Address Unknown Phone Unavailable Encounter PRIMITIVO Mariano(SANGITA) [id number] Date(s): 10/14/16 - 10/19/16 [facility] [address] [employer] provided by [facility] [place] [address]- Discharge Disposition: Home or Self Care Attending Physician: Jed Flores MD Admitting Physician: Naeem Ham MD Vital Signs 1 2 3 Most recent to oldest [Reference Range]: 231.14 cm (10/14/16 1:35 PM) Height 98.8 DegF (10/19/16 12:34 PM) 99 DegF (10/19/16 8:54 AM) 99.1 DegF (10/19/16 6:45 AM) Temperature Oral [96.4-99.1 DegF] 122/78 mmHg (10/19/16 12:34 PM) 125/79 mmHg (10/19/16 8:54 AM) 122/76 mmHg (10/19/16 6:45 AM) Blood Pressure [90-140/60-90 mmHg] 18 BRMIN (10/19/16 12:34 PM) 20 BRMIN (10/19/16 8:54 AM) 18 BRMIN (10/19/16 6:45 AM) Respiratory Rate [14-20 BRMIN] 86 bpm (10/19/16 12:34 PM) 79 bpm (10/19/16 8:54 AM) 85 bpm (10/19/16 6:45 AM) Peripheral Pulse Rate [60-100 bpm] 109 kg (10/14/16 1:35 PM) Weight 20.4 m2 (10/14/16 1:35 PM) Body Mass Index Problem List Condition [...] PO, Drug form: TAB, Q4H, Dosing Weight 109, kg, PRN Pain 1 -3/Temp > 100.4 F, Start date: 10/14/16 11:55:00 CDT, Duration: 30 day, Stop date: 11/13/16 11:54:00 CDT Notes: Do not exceed 4 gm/day. (Same as: Tylenol) Start Date: 10/14/16 Stop Date: 10/19/16 Status: Discontinued amLODIPine 10 mg, 1 tab, Route: PO, Drug form: TAB, Daily, Dosing Weight 109, kg, Start harish e: 10/17/16 14:32:00 CDT, Duration: 30 day, Stop date: 11/16/16 9:00:00 CDT Notes: (Same as: Norvasc) Start Date: 10/17/16 Stop Date: 10/17/16 Status: Discontinued atorvastatin 40 mg, 1 tab, Route: PO, Drug form: TAB, Bedtime, Dosing Weight 109, kg, Start d ate: 10/15/16 21:00:00 CDT, Duration: 30 day, Stop date: 11/13/16 21:00:00 CDT Notes: (Same as: Lipitor) Start Date: 10/15/16 Stop Date: 10/19/16 Status: Discontinued atorvastatin 40 mg oral tablet 40 mg = 1 tab, PO, Bedtime, # 30 tab, 0 Refill(s) Start Date: 10/19/16 Status: Ordered Bicitra oral solution 15 mL, Route: PO, Drug Form: SOLN, Dosing Weight 109, kg, TID-After Meals, Start date: 10/17/16 14:30:00 CDT, Duration: 30 day, Stop date: 11/16/16 12:30:00 CDT Notes: (Same As: Bicitra, Cytra-2) Sodium citrate-citric acid (500-334 mg/5 mL): 1 mL contains sodium 1 mEq/mL and bicarbonate 1 mEq/mL Start Date: 10/17/16 Stop Date: 10/19/16 Status: Discontinued calcium carbonate 1250 mg (500 mg elemental calcium) oral tablet 500 mg, 1 tab, Route: PO, Drug form: CHEWTAB, TID-Meals, Dosing Weight 109, kg, Start date: 10/16/16 8:00:00 CDT, Duration: 3 doses or times, Stop date: 7 17:00:00 CDT Notes: (Same As: Florecita)Calcium Carbonate 500 mg = 200 mg elemental calcium Dose = mg calcium carbonate ( mg elemental calcium) Start Date: 10/16/16 Stop Date: 10/16/16 Status: Completed calcium gluconate + sodium chloride 0.9% INJ 80 mL 2,000 mg, 20 mL, Route: IVPB, ONCE, Dosing Weight 109, kg, Start date: 10/15/16 8:53:00 CDT, Stop date: 10/15/16 8:53:00 CDT Notes: WASTE: F/P - Sink; E - Municipal Trash Bin Start Date: 10/15/16 Stop Date: 10/15/16 Status: Completed carvedilol 25 mg, 1 tab, Route: PO, Drug form: TAB, Q12H, Dosing Weight 109, kg, Start date : 10/14/16 21:00:00 CDT, Duration: 30 day, Stop date: 11/13/16 9:00:00 CDT Notes: Give with food. (Same As: Cliff) Start Date: 10/14/16 Stop Date: 10/19/16 Status: Discontinued carvedilol 25 mg oral tablet 25 mg = 1 tab, PO, BID, # 180 tab, 0 Refill(s) Start Date: 10/14/16 Stop Date: 10/19/16 Status: Discontinued carvedilol 25 mg oral tablet 25 mg = 1 tab, PO, Q12H, # 60 tab, 0 Refill(s) Start Date: 10/19/16 Status: Ordered cholecalciferol 2000 intl units oral tablet 2,000 IntlUnit, 1 tab, Route: PO, Daily, Dosing Weight 109, kg, Start date: 09/23 12/08 9:00:00 CDT, Duration: 30 day, Stop date: 11/17/16 9:00:00 CDT Start Date: 10/19/16 Stop Date: 10/18/16 Status: Canceled cloNIDine 0.1 mg oral tablet 0.1 mg, 1 tab, Route: PO, Drug form: TAB, ONCE, Dosing Weight 109, kg, Priority: STAT, Start date: 10/14/16 8:16:00 CDT, Stop date: 10/14/16 8:16:00 CDT Notes: (Same As: Marci) Start Date: 10/14/16 Stop Date: 10/14/16 Status: Completed Coreg 25 mg, 1 tab, Route: PO, Drug form: TAB, ONCE, Dosing Weight 109, kg, Start date : 10/14/16 5:33:00 CDT, Stop date: 10/14/16 5:33:00 CDT Notes: Give with food. (Same As: Cliff) Start Date: 10/14/16 Stop Date: 10/14/16 Status: Completed D5W 1/2NS 1,000 mL 1,000 mL, Rate: 125 ml/hr, Infuse over: 8 hr, Route: IV, Dosing Weight 109 kg, T otal Volume: 1,000, Start date: 10/14/16 6:53:00 CDT, Duration: 30 day, Stop harish e: 11/13/16 6:52:00 CDT Start Date: 10/14/16 Stop Date: 10/15/16 Status: Discontinued Dexilant 60 mg, Route: PO, Daily, Dosing Weight 109, kg, Start date: 10/15/16 9:56:00 CDT , Duration: 30 day, Stop date: 11/14/16 9:00:00 CDT Start Date: 10/15/16 Stop Date: 10/15/16 Status: Deleted Dextrose 50% Syringe 25 gm, 50 mL, Route: IVP, Drug Form: INJ, Dosing Weight 109, kg, PRN, PRN Blood Glucose Results, Start date: 10/14/16 15:08:00 CDT, Duration: 30 day, Stop date: 11/13/16 15:07:00 CDT Start Date: 10/14/16 Stop Date: 10/15/16 Status: Discontinued Dextrose 50% Syringe 12.5 gm, 25 mL, Route: IVP, Drug Form: INJ, Dosing Weight 109, kg, PRN, PRN Bloo d Glucose Results, Start date: 10/14/16 15:08:00 CDT, Duration: 30 day, Stop harish e: 11/13/16 15:07:00 CDT Start Date: 10/14/16 Stop Date: 10/15/16 Status: Discontinued Diflucan 200 mg, 1 tab, Route: PO, Drug form: TAB, ONCE, Dosing Weight 109, kg, Start harish e: 10/14/16 8:16:00 CDT, Stop date: 10/14/16 8:16:00 CDT Notes: (Same as: Diflucan) Start Date: 10/14/16 Stop Date: 10/14/16 Status: Completed Dilaudid 1 mg, Route: IVP, ONCE, Dosing Weight 109, kg, Priority: STAT, Start date: 10/14 21:40:00 CDT, Stop date: 10/14/16 21:40:00 CDT Start Date: 10/14/16 Stop Date: 10/14/16 Status: Completed Dilaudid 1 mg, 0.5 mL, Route: IV, Drug form: INJ, ONCE, Dosing Weight 109, kg, Start date : 10/14/16 6:39:00 CDT, Stop date: 10/14/16 6:39:00 CDT Notes: Same as: Dilaudid Start Date: 10/14/16 Stop Date: 10/14/16 Status: Completed enoxaparin 30 mg, Route: SUB-Q, Drug form: INJ, [id number], Dosing Weight 109, kg, Start date : 10/14/16 12:00:00 CDT, Duration: 30 day, Stop date: 11/12/16 12:00:00 CDT Start Date: 10/14/16 Stop Date: 10/14/16 Status: Deleted Flagyl 500 mg, 1 tab, Route: PO, Drug form: TAB, ONCE, Dosing Weight 109, kg, Priority: STAT, Start date: 10/14/16 8:17:00 CDT, Duration: 1 doses or times, Stop date: 10/14/16 8:17:00 CDT, ABX Indication: Genital Tract Infection Notes: (Same as: Flagyl) Take with food/ avoid alcohol Start Date: 10/14/16 Stop Date: 10/14/16 Status: Completed furosemide 40 mg, 4 mL, Route: IVP, Drug form: INJ, BID, Dosing Weight 109, kg, Start date: 10/17/16 17:00:00 CDT, Duration: 30 day, Stop date: 11/16/16 9:00:00 CDT Notes: (Same as: Lasix) MEDICATION WASTE Product Size: 40 mgProduct Was savana: ___ mg Start Date: 10/17/16 Stop Date: 10/19/16 Status: Discontinued furosemide 40 mg, 2 tab, Route: PO, Drug form: TAB, BID Diuretic, Dosing Weight 109, kg, St art date: 10/20/16 14:00:00 CDT, Duration: 30 day, Stop date: 11/19/16 6:00:00 C DT Notes: (Same as: Lasix) May cause GI upset. Give with food or milk. Start Date: 10/20/16 Stop Date: 10/19/16 Status: Canceled furosemide 40 mg oral tablet 40 mg, 2 tab, Route: PO, Drug form: TAB, Daily, Dosing Weight 109, kg, Start harish e: 10/20/16 9:00:00 CDT, Duration: 30 day, Stop date: 11/18/16 9:00:00 CDT Notes: (Same as: Lasix) May cause GI upset. Give with food or milk. Start Date: 10/20/16 Stop Date: 10/19/16 Status: Discontinued furosemide 40 mg oral tablet 40 mg, PO, BID Diuretic, # 60 tab, 0 Refill(s) Start Date: 10/19/16 Status: Ordered glucagon 1 mg, Route: IM, Drug form: PDR/INJ, PRN, Dosing Weight 109, kg, PRN Blood Gluco se Results, Start date: 10/14/16 15:08:00 CDT, Duration: 30 day, Stop date: 10/23 07/08 15:07:00 CDT Start Date: 10/14/16 Stop Date: 10/15/16 Status: Discontinued Insulin regular 2 unit, 0.02 mL, Route: SUB-Q, Drug form: SOLN, TID-Before Meals, Dosing Weight 109, kg, PRN Blood Glucose Results, Start date: 10/14/16 15:08:00 CDT, Duration: 30 day, Stop date: 11/13/16 15:07:00 CDT Notes: (Same as: Humulin R) Roll in palms of hands gently; Do not shake vigorou sly. "single patient use only"(Restricted to patients requiring a dose > 60 units)WASTE: F/P - Black; E - Municipal Trash Bin Stable for 28 days at room temperatureExpires in days from Date Start Date: 10/14/16 Stop Date: 10/15/16 Status: Discontinued Insulin regular 8 unit, 0.08 mL, Route: SUB-Q, Drug form: SOLN, TID-Before Meals, Dosing Weight 109, kg, PRN Blood Glucose Results, Start date: 10/14/16 15:08:00 CDT, Duration: 30 day, Stop date: 11/13/16 15:07:00 CDT Notes: (Same as: Humulin R) Roll in palms of hands gently; Do not shake vigorou sly. "single patient use only"(Restricted to patients requiring a dose > 60 units)WASTE: F/P - Black; E - Municipal Trash Bin Stable for 28 days at room temperatureExpires in days from Date Start Date: 10/14/16 Stop Date: 10/15/16 Status: Discontinued Insulin regular 6 unit, 0.06 mL, Route: SUB-Q, Drug form: SOLN, TID-Before Meals, Dosing Weight 109, kg, PRN Blood Glucose Results, Start date: 10/14/16 15:08:00 CDT, Duration: 30 day, Stop date: 11/13/16 15:07:00 CDT Notes: (Same as: Humulin R) Roll in palms of hands gently; Do not shake vigorou sly. "single patient use only"(Restricted to patients requiring a dose > 60 units)WASTE: F/P - Black; E - Municipal Trash Bin Stable for 28 days at room temperatureExpires in days from Date Start Date: 10/14/16 Stop Date: 10/15/16 Status: Discontinued Insulin regular 4 unit, 0.04 mL, Route: SUB-Q, Drug form: SOLN, TID-Before Meals, Dosing Weight 109, kg, PRN Blood Glucose Results, Start date: 10/14/16 15:08:00 CDT, Duration: 30 day, Stop date: 11/13/16 15:07:00 CDT Notes: (Same as: Humulin R) Roll in palms of hands gently; Do not shake vigorou sly. "single patient use only"(Restricted to patients requiring a dose > 60 units)WASTE: F/P - Black; E - Municipal Trash Bin Stable for 28 days at room temperatureExpires in days from Date Start Date: 10/14/16 Stop Date: 10/15/16 Status: Discontinued Insulin regular 10 unit, 0.1 mL, Route: SUB-Q, Drug form: SOLN, TID-Before Meals, Dosing Weight 109, kg, PRN Blood Glucose Results, Start date: 10/14/16 15:08:00 CDT, Duration: 30 day, Stop date: 11/13/16 15:07:00 CDT Notes: (Same as: Humulin R) Roll in palms of hands gently; Do not shake jlorou sly. "single patient use only"(Restricted to patients requiring a dose > 60 units)WASTE: F/P - Black; E - Municipal Trash Bin Stable for 28 days at room temperatureExpires in days from Date Start Date: 10/14/16 Stop Date: 10/15/16 Status: Discontinued Lasix 20 mg oral tablet 20 mg, 1 tab, Route: PO, Drug form: TAB, BID, Dosing Weight 109, kg, Start date: 10/14/16 17:00:00 CDT, Duration: 30 day, Stop date: 11/13/16 9:00:00 CDT Notes: (Same as: Lasix) May cause GI upset. Give with food or milk. Start Date: 10/14/16 Stop Date: 10/17/16 Status: Discontinued Lasix 20 mg oral tablet 20 mg = 1 tab, PO, Bedtime, # 30 tab, 0 Refill(s) Start Date: 10/14/16 Stop Date: 10/19/16 Status: Discontinued Levemir 100 units/mL 30 unit, SUB-Q, Daily, 0 Refill(s) Start Date: 10/14/16 Stop Date: 10/15/16 Status: Discontinued lisinopril 40 mg, 2 tab, Route: PO, Drug form: TAB, Daily, Dosing Weight 109, kg, Start harish e: 10/19/16 9:00:00 CDT, Duration: 30 day, Stop date: 11/17/16 9:00:00 CDT Notes: (Same as: Prinivil, Zestril) Start Date: 10/19/16 Stop Date: 10/19/16 Status: Discontinued lisinopril 20 mg, 1 tab, Route: PO, Drug form: TAB, Daily, Dosing Weight 109, kg, Start harish e: 10/18/16 9:00:00 CDT, Duration: 30 day, Stop date: 11/16/16 9:00:00 CDT Notes: (Same as: Prinivil, Zestril) Start Date: 10/18/16 Stop Date: 10/18/16 Status: Discontinued lisinopril 15 mg, 3 tab, Route: PO, Drug form: TAB, Daily, Dosing Weight 109, kg, Start harish e: 10/18/16 9:00:00 CDT, Duration: 30 day, Stop date: 11/16/16 9:00:00 CDT Notes: (Same as: Brittney, Zestril) Start Date: 10/18/16 Stop Date: 10/17/16 Status: Canceled lisinopril 5 mg, 1 tab, Route: PO, Drug form: TAB, Daily, Dosing Weight 109, kg, Start date : 10/15/16 15:32:00 CDT, Duration: 30 day, Stop date: 11/14/16 9:00:00 CDT Notes: (Same as: Brittney Zestril) Start Date: 10/15/16 Stop Date: 10/16/16 Status: Discontinued lisinopril 10 mg, 1 tab, Route: PO, Drug form: TAB, Daily, Dosing Weight 109, kg, Start harish e: 10/16/16 9:00:00 CDT, Duration: 30 day, Stop date: 11/14/16 9:00:00 CDT Notes: (Same as: Colt Lugostril) Start Date: 10/16/16 Stop Date: 10/17/16 Status: Discontinued lisinopril 5 mg, 1 tab, Route: PO, Drug form: TAB, ONCE, Start date: 10/17/16 9:30:00 CDT, Stop date: 10/17/16 9:30:00 CDT Notes: (Same as: Brittney Zestril) Start Date: 10/17/16 Stop Date: 10/17/16 Status: Deleted lisinopril 5 mg, 1 tab, Route: PO, Drug form: TAB, ONCE, Dosing Weight 109, kg, Priority: N OW, Start date: 10/17/16 7:03:00 CDT, Stop date: 10/17/16 7:03:00 CDT Notes: (Same as: ivsandra, Zestril) Start Date: 10/17/16 Stop Date: 10/17/16 Status: Completed lisinopril 20 mg oral tablet 40 mg = 2 tab, PO, Daily, # 60 tab, 0 Refill(s) Start Date: 10/19/16 Status: Ordered Lovenox 40 mg, 0.4 mL, Route: SUB-Q, Drug form: INJ, [id number], Start date: 10/14/16 16:0 0:00 CDT, Duration: 30 day, Stop date: 11/12/16 16:00:00 CDT Notes: (Same as: Lovenox) Start Date: 10/14/16 Stop Date: 10/19/16 Status: Discontinued magnesium sulfate 4 gm, Route: IVPB, Drug form: INJ, ONCE, Dosing Weight 109, kg, Total dose = 4 g m, Start date: 10/15/16 8:53:00 CDT, Duration: 1 doses or times, Stop date: 09/23 08/08 8:53:00 CDT Start Date: 10/15/16 Stop Date: 10/15/16 Status: Deleted magnesium sulfate 2 gm, 50 mL, Route: IVPB, Drug form: INJ, Q2H, Start date: 10/15/16 10:00:00 CDT , Duration: 2 doses or times, Stop date: 10/15/16 12:00:00 CDT Notes: WASTE: F/P - Sink; E - Municipal Trash Bin Start Date: 10/15/16 Stop Date: 10/15/16 Status: Completed MiraLax 17 gm, 1 pkt, Route: PO, Drug form: PWDR, Daily, Dosing Weight 109, kg, hold for >2BM per day, Start date: 10/15/16 9:00:00 CDT, Duration: 30 day, Stop date: 11/13/16 9:00:00 CDT Notes: Dissolve in 8 oz of water or juice.(Same as: Miralax) Start Date: 10/15/16 Stop Date: 10/15/16 Status: Discontinued MiraLax 17 gm, 1 pkt, Route: PO, Drug form: PWDR, BID, Dosing Weight 109, kg, hold for > 2BM per day, Start date: 10/15/16 17:00:00 CDT, Duration: 30 day, Stop date: 9:00:00 CDT Notes: Dissolve in 8 oz of water or juice.(Same as: Miralax) Start Date: 10/15/16 Stop Date: 10/18/16 Status: Discontinued MiraLax 17 gm, 1 pkt, Route: PO, Drug form: PWDR, BID, Dosing Weight 109, kg, PRN Consti pation, hold for >2BM per day, Start date: 10/18/16 10:02:00 CDT, Duration: 30 day, Stop date: 11/17/16 10:01:00 CDT Notes: Dissolve in 8 oz of water or juice.(Same as: Miralax) Start Date: 10/18/16 Stop Date: 10/19/16 Status: Discontinued morphine extended release 15 mg, 1 tab, Route: PO, Drug form: ERTAB, Q12H, Dosing Weight 109, kg, Start da te: 10/17/16 9:00:00 CDT, Duration: 30 day, Stop date: 11/15/16 21:00:00 CDT Notes: Do not crush (Same as:Oramorph SR, MS Contin) Start Date: 10/17/16 Stop Date: 10/17/16 Status: Discontinued morphine Sulfate 1 mg, 0.5 mL, Route: IV, Drug form: INJ, ONCE, Dosing Weight 109, kg, Priority: STAT, Start date: 10/18/16 5:13:00 CDT, Stop date: 10/18/16 5:13:00 CDT Notes: (Same as:MORPhine Sulfate) Start Date: 10/18/16 Stop Date: 10/18/16 Status: Completed morphine Sulfate 4 mg, 1 mL, Route: IVP, Drug form: INJ, ONCE, Dosing Weight 109, kg, Priority: S TAT, Start date: 10/14/16 8:15:00 CDT, Stop date: 10/14/16 8:15:00 CDT Notes: (Same as:MORPhine Sulfate) Start Date: 10/14/16 Stop Date: 10/14/16 Status: Completed morphine Sulfate 4 mg, 1 mL, Route: IVP, Drug form: INJ, ONCE, Dosing Weight 109, kg, Priority: S TAT, Start date: 10/14/16 5:29:00 CDT, Stop date: 10/14/16 5:29:00 CDT Notes: (Same as:MORPhine Sulfate) Start Date: 10/14/16 Stop Date: 10/14/16 Status: Completed morphine Sulfate 1 mg, 0.5 mL, Route: IVP, Drug form: INJ, Q4H, Dosing Weight 109, kg, PRN Pain S core 7-10, Start date: 10/15/16 12:39:00 CDT, Duration: 30 day, Stop date: 11/14 12:38:00 CDT Notes: (Same as:MORPhine Sulfate) Start Date: 10/15/16 Stop Date: 10/17/16 Status: Discontinued morphine Sulfate 2 mg, 1 mL, Route: IVP, Drug form: INJ, Q4H, Dosing Weight 109, kg, PRN Pain Sco re 7-10, Start date: 10/15/16 4:44:00 CDT, Duration: 1 day, Stop date: 10/16/16 4:43:00 CDT Notes: (Same as:MORPhine Sulfate) Start Date: 10/15/16 Stop Date: 10/15/16 Status: Discontinued MS Contin 15 mg, 1 tab, Route: PO, Drug form: ERTAB, Q12H, Dosing Weight 109, kg, Start da te: 10/17/16 10:00:00 CDT, Duration: 30 day, Stop date: 11/16/16 9:00:00 CDT Notes: Do not crush (Same as:Oramorph SR, MS Contin) Start Date: 10/17/16 Stop Date: 10/19/16 Status: Discontinued NIFEdipine 30 mg oral tablet, extended release 30 mg, 1 tab, Route: PO, Drug form: ERTAB, Q24H, Dosing Weight 109, kg, Start da te: 10/19/16 12:00:00 CDT, Duration: 30 day, Stop date: 11/17/16 12:00:00 CDT Notes: (Same as: Adalat CC, Procardia XL) Give on empty stomach. Take 1 hour be fore or 2 hours after meal; "Avoid grapefruit and grapefruit juice". Do not cru sh Start Date: 10/19/16 Stop Date: 10/19/16 Status: Discontinued NIFEdipine 30 mg oral tablet, extended release 30 mg, 1 tab, Route: PO, Drug form: ERTAB, Daily, Dosing Weight 109, kg, Start d ate: 10/17/16 16:00:00 CDT, Duration: 30 day, Stop date: 11/16/16 9:00:00 CDT Notes: (Same as: Adalat CC, Procardia XL) Give on empty stomach. Take 1 hour be fore or 2 hours after meal; "Avoid grapefruit and grapefruit juice". Do not cru sh Start Date: 10/17/16 Stop Date: 10/18/16 Status: Discontinued NIFEdipine 30 mg oral tablet, extended release 30 mg, Route: PO, Drug form: ERTAB, Q24H, Dosing Weight 109, kg, Start date: 13:00:00 CDT, Duration: 30 day, Stop date: 11/16/16 13:00:00 CDT Start Date: 10/18/16 Stop Date: 10/18/16 Status: Canceled NIFEdipine 90 mg oral tablet, extended release 90 mg, 3 tab, Route: PO, Drug form: ERTAB, ONCE, Dosing Weight 109, kg, Start da te: 10/14/16 5:33:00 CDT, Stop date: 10/14/16 5:33:00 CDT Notes: (Same as: Adalat CC, Procardia XL) Give on empty stomach. Take 1 hour be fore or 2 hours after meal; "Avoid grapefruit and grapefruit juice". Do not cru sh Start Date: 10/14/16 Stop Date: 10/14/16 Status: Completed [place] 10/325 oral tablet 1 tab, PO, TID, PRN Pain Score 7-10, # 20 tab, 0 Refill(s) Start Date: 10/19/16 Stop Date: 10/25/16 Status: Ordered [place] 10/325 oral tablet 1 tab, Route: PO, Drug Form: TAB, Dosing Weight 109, kg, Q4H, PRN Pain Score 7-1 0, Start date: 10/14/16 14:48:00 CDT, Duration: 30 day, Stop date: 11/13/16 14:4 7:00 CDT Notes: Do not exceed 4gm/day of acetaminophen. (Same as: [place] 325/10) Start Date: 10/14/16 Stop Date: 10/19/16 Status: Discontinued pantoprazole 40 mg oral enteric coated tablet 40 mg = 1 tab, PO, Q24H, # 30 tab, 0 Refill(s) Start Date: 10/19/16 Status: Ordered Protonix 40 mg, 1 tab, Route: PO, Drug form: ECTAB, Q24H, Start date: 10/15/16 11:00:00 C DT, Duration: 30 day, Stop date: 11/13/16 11:00:00 CDT Notes: Tablet should not be chewed or crushed.(Same as: Protonix) Start Date: 10/15/16 Stop Date: 10/19/16 Status: Discontinued Reglan 10 mg, 2 mL, Route: IVP, Drug form: INJ, ONCE, Dosing Weight 109, kg, Priority: STAT, Start date: 10/14/16 5:47:00 CDT, Stop date: 10/14/16 5:47:00 CDT Notes: (Same as: Reglan) Start Date: 10/14/16 Stop Date: 10/14/16 Status: Completed Renagel 800 mg, 1 tab, Route: PO, Drug form: TAB, TID-Meals, Dosing Weight 109, kg, Star t date: 10/17/16 12:00:00 CDT, Duration: 30 day, Stop date: 11/16/16 8:00:00 CDT Notes: Same as: Renvela Start Date: 10/17/16 Stop Date: 10/19/16 Status: Discontinued sertraline 100 mg, 1 tab, Route: PO, Drug form: TAB, Daily, Dosing Weight 109, kg, Start da te: 10/15/16 9:00:00 CDT, Duration: 30 day, Stop date: 11/13/16 9:00:00 CDT Notes: (Same as: Zoloft) Start Date: 10/15/16 Stop Date: 10/19/16 Status: Discontinued sertraline 100 mg oral tablet 100 mg = 1 tab, PO, Daily, # 30 tab, 0 Refill(s) Start Date: 10/19/16 Status: Ordered simethicone 160 mg, 2 tab, Route: CHEW, Drug form: CHEWTAB, TID-After Meals, Dosing Weight 1 09, kg, Start date: 10/15/16 8:30:00 CDT, Stop date: 11/13/16 17:30:00 CDT Notes: (Same as: Mylicon) Start Date: 10/15/16 Stop Date: 10/19/16 Status: Discontinued Vitamin D2 50,000 IntlUnit, 1 cap, Route: PO, Drug form: CAP, ONCE, Dosing Weight 109, kg, Start date: 10/18/16 12:50:00 CDT, Stop date: 10/18/16 12:50:00 CDT Notes: (Same as: Vitamin D) "Do Not Crush" Start Date: 10/18/16 Stop Date: 10/18/16 Status: Completed Vitamin D2 50,000 IntlUnit, Route: PO, Drug form: CAP, 2x/Wk, Dosing Weight 109, kg, Start date: 10/18/16 12:33:00 CDT, Duration: 30 day, Stop date: 11/17/16 12:32:00 CDT Start Date: 10/18/16 Stop Date: 10/18/16 Status: Deleted Zofran 4 mg, 2 mL, Route: IVP, Drug form: INJ, ONCE, Dosing Weight 109, kg, Priority: S TAT, Start date: 10/14/16 8:15:00 CDT, Stop date: 10/14/16 8:15:00 CDT Notes: (Same as: Zofran) MEDICATION WASTE Product Size: 4 mgProduct Was savana: ___ mg Start Date: 10/14/16 Stop Date: 10/14/16 Status: Completed Zofran 4 mg, 1 tab, Route: PO, Drug form: TAB, Q8H, Dosing Weight 109, kg, PRN Nausea, Start date: 10/19/16 10:13:00 CDT, Duration: 30 day, Stop date: 11/18/16 10:12:0 0 CDT Notes: (Same as: Zofran) Start Date: 10/19/16 Stop Date: 10/19/16 Status: Discontinued Zofran 4 mg, 2 mL, Route: IVP, Drug form: INJ, ONCE, Dosing Weight 109, kg, Priority: S TAT, Start date: 10/14/16 5:29:00 CDT, Stop date: 10/14/16 5:29:00 CDT Notes: (Same as: Zofran) MEDICATION WASTE Product Size: 4 mgProduct Was savana: ___ mg Start Date: 10/14/16 Stop Date: 10/14/16 Status: Completed Zofran 4 mg, 1 tab, Route: PO, Drug form: TAB, ONCE, Dosing Weight 109, kg, Start date: 10/19/16 10:11:00 CDT, Stop date: 10/19/16 10:11:00 CDT Notes: (Same as: Zofran) Start Date: 10/19/16 Stop Date: 10/19/16 Status: Completed Results ELECTROLYTES 1 2 3 Most recent to oldest [Reference Range]: 145 mEq/L (10/19/16 5:45 AM) 141 mEq/L (10/18/16 2:07 AM) 142 mEq/L (10/17/16 3:40 AM) Sodium Lvl [135-145 mEq/L] 4.5 mEq/L (10/19/16 5:45 AM) 4.9 mEq/L (10/18/16 2:07 AM) 4.4 mEq/L (10/17/16 3:40 AM) Potassium Lvl [3.5-5.1 mEq/L] 114 mEq/L *HI* (10/19/16 5:45 AM) 111 mEq/L *HI* (10/18/16 2:07 AM) 115 mEq/L *HI* (10/17/16 3:40 AM) Chloride Lvl [95-109 mEq/L] 23 mEq/L *LOW* (10/19/16 5:45 AM) 19 mEq/L *LOW* (10/18/16 2:07 AM) 19 mEq/L *LOW* (10/17/16 3:40 AM) CO2 [24-32 mEq/L] 12.5 mEq/L (10/19/16 5:45 AM) 15.9 mEq/L (10/18/16 2:07 AM) 12.4 mEq/L (10/17/16 3:40 AM) AGAP [10.0-20.0 mEq/L] CHEM PANEL 1 2 3 Most recent to oldest [Reference Range]: 2.86 mg/dL *HI* (10/19/16 5:45 AM) 2.81 mg/dL *HI* (10/18/16 2:07 AM) 2.84 mg/dL *HI* (10/17/16 3:40 AM) Creatinine Lvl [0.50-1.40 mg/dL] 19 mL/min/1.73m2 1 *NA* (10/19/16 5:45 AM) 20 mL/min/1.73m2 2 *NA* (10/18/16 2:07 AM) 20 mL/min/1.73m2 3 *NA* (10/17/16 3:40 AM) eGFR 14 mg/dL (10/19/16 5:45 AM) 14 mg/dL (10/18/16 2:07 AM) 12 mg/dL (10/17/16 3:40 AM) BUN [7-22 mg/dL] 61 mg/dL *LOW* (10/19/16 5:45 AM) 67 mg/dL *LOW* (10/18/16 2:07 AM) 75 mg/dL (10/17/16 3:40 AM) Glucose Lvl [70-99 mg/dL] 5.3 g/dL *LOW* (10/19/16 5:45 AM) 5.8 g/dL *LOW* (10/18/16 1:38 AM) 5.4 g/dL *LOW* (10/15/16 5:32 AM) Total Protein [6.4-8.4 g/dL] 1.3 g/dL *LOW* (10/19/16 5:45 AM) 1.5 g/dL *LOW* (10/18/16 1:38 AM) 1.4 g/dL *LOW* (10/15/16 5:32 AM) Albumin Lvl [3.5-5.0 g/dL] 4.0 g/dL (10/19/16 5:45 AM) 4.3 g/dL *HI* (10/18/16 1:38 AM) 4.0 g/dL (10/15/16 5:32 AM) Globulin [2.7-4.2 g/dL] 0.3 *LOW* (10/19/16 5:45 AM) 0.3 *LOW* (10/18/16 1:38 AM) 0.4 *LOW* (10/15/16 5:32 AM) A/G Ratio [0.7-1.6] 8.0 mg/dL *LOW* (10/19/16 5:45 AM) 7.7 mg/dL *LOW* (10/18/16 2:07 AM) 7.5 mg/dL *LOW* (10/17/16 3:40 AM) Calcium Lvl [8.5-10.5 mg/dL] 4.7 mg/dL *HI* (10/19/16 5:45 AM) 4.9 mg/dL *HI* (10/18/16 2:07 AM) 5.0 mg/dL *HI* (10/17/16 3:40 AM) Phosphorus [2.5-4.5 mg/dL] 2.0 mg/dL (10/19/16 5:45 AM) 2.0 mg/dL (10/18/16 2:07 AM) 2.1 mg/dL (10/17/16 3:40 AM) Magnesium Lvl [1.8-2.4 mg/dL] 9 unit/L (10/19/16 5:45 AM) 14 unit/L (10/18/16 1:38 AM) 12 unit/L (10/15/16 5:32 AM) ALT [0-65 unit/L] 9 unit/L (10/19/16 5:45 AM) 21 unit/L (10/18/16 1:38 AM) 10 unit/L (10/15/16 5:32 AM) AST [0-37 unit/L] 104 unit/L (10/19/16 5:45 AM) 111 unit/L (10/18/16 1:38 AM) 104 unit/L (10/15/16 5:32 AM) Alk Phos [39-136 unit/L] 286 unit/L *HI* (10/19/16 5:45 AM) LDH [98-192 unit/L] 0.1 mg/dL *LOW* (10/19/16 5:45 AM) 0.1 mg/dL *LOW* (10/19/16 5:45 AM) 0.2 mg/dL (10/18/16 2:07 AM) Bili Total [0.2-1.3 mg/dL] 0.1 mg/dL (10/19/16 5:45 AM) 0.1 mg/dL (10/19/16 5:45 AM) 0.1 mg/dL (10/18/16 2:07 AM) Bili Direct [0.0-0.3 mg/dL] 0.0 mg/dL (10/19/16 5:45 AM) 0.0 mg/dL (10/19/16 5:45 AM) 0.1 mg/dL (10/18/16 2:07 AM) Bili Indirect [0.0-1.0 mg/dL] 61 unit/L *LOW* (10/14/16 5:37 AM) Lipase Lvl [73-393 unit/L] 1.0 mMol/L (10/15/16 5:32 AM) Lactic Acid Lvl [0.5-2.2 mMol/L] 4.7 ng/mL *LOW* (10/18/16 11:11 AM) 5.1 ng/mL *LOW* (10/17/16 3:40 AM) Vitamin D, 25-OH, Total [30.0-100.0 ng/mL] 1Result Comment: The eGFR is calculated using [...] 3 Most recent to oldest [Reference Range]: 78 unit/L (10/19/16 5:45 AM) Total CK [12-191 unit/L] LIPIDS 1 2 3 Most recent to oldest [Reference Range]: 3.39 *LOW* (10/18/16 7:20 PM) CHD Risk [3.90-5.80] 149 mg/dL (10/18/16 7:20 PM) Chol [<=199 mg/dL] 153 mg/dL *HI* (10/18/16 7:20 PM) Trig [<=149 mg/dL] 44 mg/dL *LOW* (10/18/16 7:20 PM) HDL [>=61 mg/dL] 74 mg/dL (10/18/16 7:20 PM) LDL (Calculated) [<=99 mg/dL] 31 *NA* (10/18/16 7:20 PM) VLDL ANEMIA STUDY 1 2 3 Most recent to oldest [Reference Range]: 28 ug/dl *LOW* (10/19/16 5:45 AM) 49 ug/dl (10/18/16 2:07 AM) Iron [30-160 ug/dl] 160 ng/mL (10/19/16 5:45 AM) Ferritin Lvl [5-204 ng/mL] 25 % (10/19/16 5:45 AM) 28 % (10/18/16 2:07 AM) % Satur Fe [12-57 %] 86 ug/dl *LOW* (10/19/16 5:45 AM) 129 ug/dl (10/18/16 2:07 AM) UIBC [110-370 ug/dl] 890 pg/mL (10/19/16 5:45 AM) Vitamin B12 Lvl [254-1320 pg/mL] 7.3 ng/mL (10/19/16 5:45 AM) Folate Lvl [>=3.0 ng/mL] 577 ng/mL (10/19/16 5:45 AM) RBC Folate [280-791 ng/mL] 114 ug/dl *LOW* (10/19/16 5:45 AM) 178 ug/dl *LOW* (10/18/16 2:07 AM) TIBC [228-428 ug/dl] PARATHYROID PROFILE 1 2 3 Most recent to oldest [Reference Range]: 1.08 mMol/L (10/19/16 5:45 AM) 1.18 mMol/L (10/18/16 2:07 AM) 1.13 mMol/L (10/17/16 3:40 AM) Ca Ion WB [1.05-1.25 mMol/L] 1.01 mMol/L *LOW* (10/19/16 5:45 AM) 1.08 mMol/L (10/18/16 2:07 AM) 1.08 mMol/L (10/17/16 3:40 AM) Ca Norm WB [1.05-1.25 mMol/L] 185.3 pg/mL *HI* (10/17/16 3:40 AM) PTH Intact [11.1-79.5 pg/mL] DRUG SCREEN 1 2 3 Most recent to oldest [Reference Range]: Negative *NA* (10/14/16 10:29 PM) U Methadone Scr [Negative] Negative *NA* (10/14/16 10:29 PM) U Propoxyph Scr [Negative] Negative *NA* (10/14/16 10:29 PM) U Amph Scr [Negative] Negative *NA* (10/14/16 10:29 PM) U Esther Scr [Negative] Negative *NA* (10/14/16 10:29 PM) U Benzodia Scr [Negative] Negative *NA* (10/14/16 10:29 PM) U Cocaine Scr [Negative] Positive *ABN* (10/14/16 10:29 PM) U Opiate Scr [Negative] Negative *NA* (10/14/16 10:29 PM) U Phencyc Scr [Negative] Negative *NA* (10/14/16 10:29 PM) U Cannab Scr [Negative] See Note (10/14/16 10:29 PM) UDS Note URINE CHEM 1 2 3 Most recent to oldest [Reference Range]: 84.80 mg/dL *NA* (10/16/16 5:00 AM) U Creatinine 623.2 mg/dL *NA* (10/16/16 5:00 AM) U Protein 7.3 *NA* (10/16/16 5:00 AM) U Prot/Creat Negative (10/17/16 1:28 PM) U Preg [Negative] URINE AND STOOL 1 2 3 Most recent to oldest [Reference Range]: Clear (10/14/16 10:29 PM) Slight Cloudy (10/14/16 6:25 AM) UA Turbidity [Clear] Yellow *NA* (10/14/16 10:29 PM) Yellow *NA* (10/14/16 6:25 AM) UA Color [Yellow] 6.5 (10/14/16 10:29 PM) UA pH [5.0-8.0] 6.5 (10/14/16 6:25 AM) UA pH [5.0-8.0] 1.015 (10/14/16 10:29 PM) UA Spec Grav [<=1.030] 1.020 (10/14/16 6:25 AM) UA Spec Grav [<=1.030] 150 mg/dL *ABN* (10/14/16 10:29 PM) 100 mg/dL *ABN* (10/14/16 6:25 AM) UA Glucose [Negative mg/dL] Small *ABN* (10/14/16 10:29 PM) Small *ABN* (10/14/16 6:25 AM) UA Blood [Negative] Negative mg/dL *NA* (10/14/16 10:29 PM) UA Ketones [Negative mg/dL] Negative *NA* (10/14/16 6:25 AM) UA Ketones [Negative] >=300 mg/dL *ABN* (10/14/16 10:29 PM) >=300 mg/dL *ABN* (10/14/16 6:25 AM) UA Protein [Negative mg/dL] <=1.0 mg/dL *NA* (10/14/16 10:29 PM) UA Urobilinogen [0.1-1.0 mg/dL] 0.2 EU/dL (10/14/16 6:25 AM) UA Urobilinogen [0.1-1.0 EU/dL] Negative *NA* (10/14/16 10:29 PM) Negative *NA* (10/14/16 6:25 AM) UA Bili [Negative] Negative (10/14/16 10:29 PM) Negative (10/14/16 6:25 AM) UA Leuk Est [Negative] Negative (10/14/16 10:29 PM) Negative (10/14/16 6:25 AM) UA Nitrite [Negative] 5 /HPF (10/14/16 10:29 PM) UA WBC [0-5 /HPF] 6-10 /HPF *ABN* (10/14/16 6:25 AM) UA WBC [None Seen /HPF] <1 /HPF (10/14/16 10:29 PM) 3-5 /HPF *ABN* (10/14/16 6:25 AM) UA RBC [0-2 /HPF] Few /HPF *NA* (10/14/16 10:29 PM) Many /HPF (10/14/16 6:25 AM) UA Bacteria [None Seen /HPF] Few /LPF *NA* (10/14/16 10:29 PM) Many /LPF *ABN* (10/14/16 6:25 AM) UA Sq Epi [Few /LPF] 6 /LPF *HI* (10/14/16 10:29 PM) UA Hyal Cast [0-2 /LPF] Few /LPF *NA* (10/14/16 10:29 PM) Many /LPF *ABN* (10/14/16 6:25 AM) UA Mucus [None Seen /LPF] Moderate /HPF *ABN* (10/14/16 6:25 AM) UA [place] Yeast [None Seen /HPF] IMMUNOLOGY 1 2 3 Most recent to oldest [Reference Range]: Negative (10/18/16 7:18 PM) MAEGAN [Negative] 93 mg/dL (10/18/16 7:20 PM) C3 Complement [88-201 mg/dL] 68 mg/dL *HI* (10/18/16 7:20 PM) C4 Complement [16-47 mg/dL] Negative (10/18/16 7:18 PM) C-ANCA [Negative] Negative (10/18/16 7:18 PM) P-ANCA [Negative] 14.3 mg/dL *LOW* (10/17/16 3:40 AM) 12.7 mg/dL *LOW* (10/16/16 3:56 AM) Prealbumin [18.0-45.0 mg/dL] 13.7 uMol/L (10/19/16 5:45 AM) Homocyst Tot [3.7-13.9 uMol/L] 120.83 mg/L *HI* (10/18/16 7:18 PM) [place] Free Light Chains [3.30-19.40 mg/L] 74.27 mg/L *HI* (10/18/16 7:18 PM) Lambda Free Light Chains [5.70-26.30 mg/L] 1.63 Ratio (10/18/16 7:18 PM) Thornton/Lambda Free Light Chains Ratio [0.26-1.65 Ratio] Negative *NA* (10/18/16 7:20 PM) Hep Bs Ag [Negative] Negative *NA* (10/18/16 7:20 PM) Hep B Core IgM [Negative] Negative *NA* (10/18/16 7:20 PM) Hep A IgM [Negative] Negative *NA* (10/18/16 7:20 PM) Hep C Ab HEMATOLOGY 1 2 3 Most recent to oldest [Reference Range]: 5.5 K/CMM (10/19/16 5:45 AM) 5.7 K/CMM (10/18/16 2:07 AM) 6.2 K/CMM (10/17/16 3:40 AM) WBC [3.7-10.4 K/CMM] 2.50 M/CMM *LOW* (10/19/16 5:45 AM) 2.79 M/CMM *LOW* (10/18/16 2:07 AM) 2.56 M/CMM *LOW* (10/17/16 3:40 AM) RBC [4.20-5.40 M/CMM] 7.1 g/dL *LOW* (10/19/16 5:45 AM) 7.9 g/dL *LOW* (10/18/16 2:07 AM) 7.2 g/dL *LOW* (10/17/16 3:40 AM) Hgb [12.0-16.0 g/dL] 22.2 % *LOW* (10/19/16 5:45 AM) 24.7 % *LOW* (10/18/16 2:07 AM) 22.8 % *LOW* (10/17/16 3:40 AM) Hct [36.0-48.0 %] 88.8 fL (10/19/16 5:45 AM) 88.8 fL (10/18/16 2:07 AM) 89.3 fL (10/17/16 3:40 AM) MCV [80.0-98.0 fL] 28.3 pg (10/19/16 5:45 AM) 28.5 pg (10/18/16 2:07 AM) 28.0 pg (10/17/16 3:40 AM) MCH [27.0-31.0 pg] 31.8 g/dL *LOW* (10/19/16 5:45 AM) 32.1 g/dL (10/18/16 2:07 AM) 31.3 g/dL *LOW* (10/17/16 3:40 AM) MCHC [32.0-36.0 g/dL] 14.6 % *HI* (10/19/16 5:45 AM) 14.7 % *HI* (10/18/16 2:07 AM) 14.2 % (10/17/16 3:40 AM) RDW [11.5-14.5 %] 361 K/CMM (10/19/16 5:45 AM) 357 K/CMM (10/18/16 2:07 AM) 322 K/CMM (10/17/16 3:40 AM) Platelet [133-450 K/CMM] 8.1 fL (10/19/16 5:45 AM) 8.6 fL (10/18/16 2:07 AM) 8.8 fL (10/17/16 3:40 AM) MPV [7.4-10.4 fL] 49.7 % (10/19/16 5:45 AM) 50.8 % (10/18/16 2:07 AM) 43.2 % *LOW* (10/17/16 3:40 AM) Segs [45.0-75.0 %] 36.5 % (10/19/16 5:45 AM) 36.6 % (10/18/16 2:07 AM) 43.0 % *HI* (10/17/16 3:40 AM) Lymphocytes [20.0-40.0 %] 8.3 % (10/19/16 5:45 AM) 7.2 % (10/18/16 2:07 AM) 6.5 % (10/17/16 3:40 AM) Monocytes [2.0-12.0 %] 4.8 % *HI* (10/19/16 5:45 AM) 4.6 % *HI* (10/18/16 2:07 AM) 6.3 % *HI* (10/17/16 3:40 AM) Eosinophils [0.0-4.0 %] 0.7 % (10/19/16 5:45 AM) 0.8 % (10/18/16 2:07 AM) 1.0 % (10/17/16 3:40 AM) Basophils [0.0-1.0 %] 2.8 K/CMM (10/19/16 5:45 AM) 2.9 K/CMM (10/18/16 2:07 AM) 2.7 K/CMM (10/17/16 3:40 AM) Segs-Bands # [1.5-8.1 K/CMM] 2.0 K/CMM (10/19/16 5:45 AM) 2.1 K/CMM (10/18/16 2:07 AM) 2.6 K/CMM (10/17/16 3:40 AM) Lymphocytes # [1.0-5.5 K/CMM] 0.5 K/CMM (10/19/16 5:45 AM) 0.4 K/CMM (10/18/16 2:07 AM) 0.4 K/CMM (10/17/16 3:40 AM) Monocytes # [0.0-0.8 K/CMM] 0.3 K/CMM (10/19/16 5:45 AM) 0.3 K/CMM (10/18/16 2:07 AM) 0.4 K/CMM (10/17/16 3:40 AM) Eosinophils # [0.0-0.5 K/CMM] 0.1 K/CMM (10/17/16 3:40 AM) 0.1 K/CMM (10/16/16 3:56 AM) 0.1 K/CMM (10/15/16 5:32 AM) Basophils # [0.0-0.2 K/CMM] Peripheral Blood Smear Examination: - Normocytic normochromic anemia with an isocytosis and slight polychromasia. Occasional ecchinocytes are seen. Rare schistocytes are present, however overall are not increased. - Reactive PMNs are present. - Adequate platelets with rare large for ms. CPT: 17444 *NA* (10/19/16 5:45 AM) PB Smear Path 1.4 % (10/19/16 5:45 AM) Retic Auto [0.5-1.5 %] 13.9 seconds (10/17/16 10:43 AM) PT [12.0-14.7 seconds] 1.05 (10/17/16 10:43 AM) INR [0.85-1.17] Immunizations Given and Recorded Vaccine Date Status [...] Yes Assessment and Plan Extracted from: Title: Renal Progress Note * Author: Rm Pascual MD Date: 10/19/16 Patient: GISELA SOL Age: 41 years Sex: Female : 1975 Associated Diagnoses: None Author: Rm Pascual MD Review of Systems Pt is doing better, trying to improve her oral intake. Health Status Allergies: Allergic Reactions (All) Severity Not Documented NKDA- No reactions were documented. Canceled/Inactive Reactions (All) Severity Not Documented Nka- No reactions were documented., Allergies (1) ActiveReaction NKDANone Documented Current medications: (Selected) Inpatient Medications Ordered Bicitra oral solution: 15 mL, PO, TID-After Meals Lovenox: 40 mg, 0.4 mL, SUB-Q, [id number] MS Contin: 15 mg, 1 tab, PO, Q12H MiraLax: 17 gm, 1 pkt, PO, BID, PRN: Constipation NIFEdipine 30 mg oral tablet, extended release: 30 mg, 1 tab, PO, Q24H [place] 10/325 oral tablet: 1 tab, PO, Q4H, [...] 2 tab, CHEW, TID-After Meals Prescriptions Prescribed [place] 10/325 oral tablet: 1 tab, PO, TID, [...] ml INJ 40 mg 0.4 mL, SUB-Q, [id number] furosemide 20 mg TAB 40 mg 2 tab, PO, BID Diuretic lisinopril 20 mg TAB 40 mg 2 tab, PO, Daily MORPhine sulfate 15 mg [employer]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 E.coli, 09/15/2016 urine - 09/15/16 (ESBL) Below knee amputation status / SNOMED CT 8375197541 / Confirmed Right sided BKA Klebsiella / SNOMED CT 925373203 / Confirmed Problem added by Discern Expert. Blood, 03/29/2016 urine - 10/11/16 (ESBL) Left heart failure with preserved LV function / SNOMED CT 7203458132 / Confirmed Metabolic acidosis / SNOMED CT 02233985 / Confirmed MRSA / SNOMED CT 168024124 / Confirmed Problem added by Discern Expert. Left buttock abscess, 11/29/2013 MRSA / SNOMED CT 693059233 / Confirmed Problem added by Discern Expert. nares - 02/19/16 right foot aspirate - 02/23/16 Resolved: Anxiety / SNOMED CT 7680586731 Resolved: Chronic depression / SNOMED CT 266063117 Resolved: CKD (chronic kidney disease) / SNOMED CT 1505140184 Resolved: Diabetes mellitus / SNOMED CT 068541501 Resolved: DM (diabetes mellitus) / SNOMED CT [id number] Resolved: Biliary colic / SNOMED CT 970152602 Resolved: HTN - Hypertension / SNOMED CT 8582474685 Resolved: HLD (hyperlipidemia) / SNOMED CT 71356688 Canceled: CHF - Congestive heart failure / SNOMED CT 343118594 Canceled: Hypertension / SNOMED CT 27800877 Canceled: Neuropathy / SNOMED CT 4953106853 Canceled: Osteomyelitis / SNOMED CT 932217253, Active Problems (7) Below knee amputation status Escherichia coli Klebsiella Left heart failure with preserved LV function Metabolic acidosis MRSA MRSA Physical Examination VS/Measurements Vital Signs (last 24 hrs) Last Charted Temp Oral98.8 DegF (OCT 19 12:34) Heart Rate Fixlkdvkwo29 bpm (OCT 19 12:34) Resp Rate 18 BRMIN (OCT 19 12:34) ZCV127 mmHg (OCT 19 12:34) DBP78 mmHg (OCT 19 12:34) KgV849 % (OCT 19 12:) General: Alert and oriented, No acute distress. [...] of motion. RBKA. Integumentary: Warm, Dry, [place]. Neurologic: Alert, Oriented. Psychiatric: Cooperative, Appropriate mood & affect, Normal judgment. Review / Management Results review: Labs (Last four charted values) WBC 5.5(OCT 19)5.7(SEP 27)6.2(MARILYN 26)5.8(MARILYN 25) Hgb L 7.1(OCT 19)L 7.9(MARILYN 27)L 7.2(MARILYN 26)L 7.6(MARILYN 25) Hct L 22.2(OCT 19)L 24.7(MARILYN 27)L 22.8(MARILYN 26)L 24.0(MARILYN 25) Plt 361(OCT 19)357(MARILYN 27)322(MARILYN 26)369(MARILYN 25) Na 145(MARILYN 28)141(MARILYN 27)142(MARILYN 26)143(MARILYN 25) K 4.5(MARILYN 28)4.9(MARILYN 27)4.4(MARILYN 26)4.0(MARILYN 25) CO2 L 23(SEP 28)L 19(MARILYN 27)L 19(MARILYN 26)L 19(MARILYN 25) Cl H 114(MARILYN 28)H 111(MARILYN 27)H 115(MARILYN 26)H 115(MARILYN 25) Cr H 2.86(MARILYN 28)H 2.81(MARILYN 27)H 2.84(MARILYN 26)H 2.62(MARILYN 25) BUN 14(OCT 19)14(OCT 18)12(OCT 17)11(OCT 16) Glucose Random L 61(OCT 19)L 67(OCT 18)75(OCT 17)75(OCT 16) Mg 2.0(OCT 19)2.0(OCT 18)2.1(OCT 17)2.2(OCT 16) Phos H 4.7(OCT 19)H 4.9(OCT 18)H 5.0(OCT 17)H 5.0(OCT 16) Ca L 8.0(OCT 19)L 7.7(OCT 18)L 7.5(OCT 17)L 7.4(OCT 16) PT 13.9(OCT 17) INR 1.05(OCT 17) Total CK 78(OCT 19). Impression and Plan Pt is a 41 [...] with Dr Harvey or any other avalable automotive glass technician as able with preclinic labs. Patient [...] seen and staffed with Renal attending Addendum ATTENDING NOTE: by Lauren, I saw and examined this [facility] patient on 10/19/2016, reviewed the labs and Richard COCHRAN on radiographic data, and chandana cruz with this note. 10/20/2016 Richard Aguilar MD 00:18 Extracted from: Title: Infection Control Isolation Author: Ignacia Martinez Date: 10/17/16 Alert ISOLATION ALERT This patient has a history of infection/colonization with a multi-drug resistant organism. Organism Site Date ESBL E.coliurine 09/15/16 ESBL Klebsiellaurine 10/11/16 MRSAright foot fhhkdiwb19/1/16 Isolation Required: CONTACT Before isolation precautions may [...] and at least one should be an sagger preparer specimen Sputum Varicella Maintain precautions until all [...] any questions. We can be reached at [phone]. Extracted from: Title: History and Physical Author: Giuliano Marvin MD Date: 10/14/16 Assessment/Plan 40AAF withPMH of DMII, HTN, CKD, HLD, depression who presented with periumbilical abdominal pain for [...] Disposition Pt seen and examined at bedside. Lozano elements of history and physical, lab results, imaging discussed with team. Plan of care jointly formulated and concur with resident note. Jed Flores MD [facility] Attending [phone] Addendum by Tripp Flores seen and examined at bed side. Lozano elements of history and physical, lab results, Jed Ledezma imaging discussed with team . Plan of care jointly formulated and concur with resident MD on note. 10/18/2016 20:44 CDT Jed Flores MD [facility] Attending [phone]
--- OUTSIDE RECORDS SUMMARY | 2019-09-10 20:11 | XMS REPORT | Summary of Care ---
Author Author [facility] spital Organization [facility] Address Unknown Phone Unavailable Encounter HQ [place](FIN) [id number] Date(s): 08/15/17 - 08/17/17 [facility] [address] [place] [address]- [facility] [phone] Encounter Diagnosis Hypertension (Discharge Diagnosis) - 08/16/17 ESRD (end stage renal disease) (Discharge Diagnosis) - 08/16/17 Discharge Disposition: Home or Self Care Attending Physician: Nolan Reynoso MD Admitting Physician: Nolan Reynoso MD Vital Signs 1 2 3 Most recent to oldest [Reference Range]: 170.18 cm (08/16/17 3:20 PM) Height 98.1 DegF (08/17/17 1:15 PM) 98.0 DegF (08/17/17 9:50 AM) 97.6 DegF (08/17/17 7:20 AM) Temperature Oral [96.4-99.1 DegF] 148/96 mmHg *HI* (08/17/17 1:15 PM) 142/91 mmHg *HI* (08/17/17 9:50 AM) 115/74 mmHg (08/17/17 7:20 AM) Blood Pressure [90-140/60-90 mmHg] 18 BRMIN (08/17/17 1:15 PM) 18 BRMIN (08/17/17 9:50 AM) 18 BRMIN (08/17/17 7:20 AM) Respiratory Rate [14-20 BRMIN] 99 bpm (08/17/17 1:15 PM) 99 bpm (08/17/17 9:50 AM) 100 bpm (08/17/17 7:20 AM) Peripheral Pulse Rate [60-100 bpm] 102.756 kg (08/16/17 3:20 PM) 100 kg (08/15/17 9:57 PM) Weight 35.48 m2 (08/16/17 3:20 PM) Body Mass Index Problem List Condition [...] 1 -3/Temp > 100.4 F, Start date: 08/16/17 6:37:00 CDT, Duration: 30 day, Stop date: 09/15/17 6:36:00 CDT Notes: Do not exceed 4 gm/day. (Same as: Tylenol) Start Date: 08/16/17 Stop Date: 08/17/17 Status: Discontinued atorvastatin 40 mg oral tablet 40 mg = 1 tab, PO, Bedtime, # 30 tab, 0 Refill(s) Start Date: 08/16/17 Status: Ordered carvedilol 25 mg, 2 tab, Route: PO, Drug form: TAB, Q12H, Start date: 08/16/17 9:00:00 CDT, Duration: 30 day, Stop date: 09/14/17 21:00:00 CDT Notes: Give with food. (Same As: Coreg) Start Date: 08/16/17 Stop Date: 08/17/17 Status: Discontinued carvedilol 25 mg, Route: PO, Drug form: TAB, BID, Dosing Weight 102.756, kg, Start date: 17:12:00 CDT, Duration: 30 day, Stop date: 09/15/17 17:00:00 CDT Start Date: 08/16/17 Stop Date: 08/16/17 Status: Deleted carvedilol extended release 80 mg, Route: PO, Drug form: ERCAP, ONCE, Dosing Weight 100, kg, Start date: 6:14:00 CDT, Stop date: 08/16/17 6:14:00 CDT Start Date: 08/16/17 Stop Date: 08/16/17 Status: Deleted carvedilol extended release 80 mg, Route: PO, Drug form: ERCAP, Daily, Dosing Weight 100, kg, Start date: 9:00:00 CDT, Duration: 30 day, Stop date: 09/14/17 9:00:00 CDT Start Date: 08/16/17 Stop Date: 08/16/17 Status: Canceled cloNIDine 0.2 mg oral tablet 0.2 mg, Route: PO, Drug form: TAB, ONCE, Dosing Weight 100, kg, Priority: STAT, Start date: 08/16/17 6:13:00 CDT, Stop date: 08/16/17 6:13:00 CDT Start Date: 08/16/17 Stop Date: 08/16/17 Status: Discontinued d50 syringe 12.5 gm, 25 mL, Route: IVP, Drug Form: INJ, Dosing Weight 100, kg, ONCE, STAT, S tart date: 08/16/17 0:12:00 CDT, Stop date: 08/16/17 0:12:00 CDT, 25 ml = 12.5 g m Start Date: 08/16/17 Stop Date: 08/16/17 Status: Completed furosemide 40 mg oral tablet 40 mg = 1 tab, PO, BID, 0 Refill(s) Start Date: 08/16/17 Status: Ordered furosemide 40 mg oral tablet 40 mg, 1 tab, Route: PO, Drug form: TAB, BID, Dosing Weight 102.756, kg, Start d ate: 08/17/17 9:00:00 CDT, Duration: 30 day, Stop date: 09/15/17 17:00:00 CDT Notes: (Same as: Lasix) May cause GI upset. Give with food or milk. Start Date: 08/17/17 Stop Date: 08/17/17 Status: Discontinued heparin 10,000 unit, 10 mL, Route: DIALYSIS, Drug form: INJ, ONCALL, Dosing Weight 102.7 56, kg, Start date: 08/17/17 11:00:00 CDT, Duration: 1 doses or times Start Date: 08/17/17 Stop Date: 08/17/17 Status: Completed heparin 5,000 unit, 1 mL, Route: SUB-Q, Drug form: INJ, Q12H, Dosing Weight 100, kg, Sta rt date: 08/16/17 9:00:00 CDT, Stop date: 09/14/17 21:00:00 CDT Notes: porcine heparin Start Date: 08/16/17 Stop Date: 08/17/17 Status: Discontinued hydrALAZINE 10 mg, 0.5 mL, Route: IVP, Drug form: INJ, Q4H, Dosing Weight 100, kg, PRN Hyper tension, Start date: 08/16/17 6:39:00 CDT, Duration: 30 day, Stop date: 09/15/17 6:38:00 CDT Notes: (Same as: Apresoline)Push over 5 minutes Start Date: 08/16/17 Stop Date: 08/17/17 Status: Discontinued hydrALAZINE 40 mg, 2 mL, Route: IVP, Drug form: INJ, ONCE, Dosing Weight 100, kg, Priority: STAT, Start date: 08/16/17 0:11:00 CDT, Stop date: 08/16/17 0:11:00 CDT Notes: (Same as: Apresoline)Push over 5 minutes Start Date: 08/16/17 Stop Date: 08/16/17 Status: Completed hydrALAZINE 20 mg, 1 mL, Route: IVP, Drug form: INJ, ONCE, Dosing Weight 100, kg, Priority: STAT, Start date: 08/16/17 6:15:00 CDT, Stop date: 08/16/17 6:15:00 CDT Notes: (Same as: Apresoline)Push over 5 minutes Start Date: 08/16/17 Stop Date: 08/16/17 Status: Completed hydrALAZINE 50 mg oral tablet 50 mg = 1 tab, PO, TID, # 90 tab, 3 Refill(s) Start Date: 08/16/17 Status: Ordered hydrALAZINE 50 mg oral tablet 50 mg, 1 tab, Route: PO, Drug form: TAB, TID, Dosing Weight 102.756, kg, Start d ate: 08/17/17 9:00:00 CDT, Duration: 30 day, Stop date: 09/15/17 17:00:00 CDT Notes: (Same as: Apresoline) May interfere w/enteral feedings Take With Food Start Date: 08/17/17 Stop Date: 08/17/17 Status: Discontinued Insulin regular 8 unit, 0.08 mL, Route: IVP, Drug form: INJ, ONCE, Dosing Weight 100, kg, Priori ty: STAT, Start date: 08/16/17 0:12:00 CDT, Stop date: 08/16/17 0:12:00 CDT Notes: (Same as: Humulin R and NovoLIN R)WASTE: F/P - Black; E - Municipal Trash Bin (Do not shake) Start Date: 08/16/17 Stop Date: 08/16/17 Status: Completed Kayexalate 45 gm, 180 mL, Route: PO, Drug form: SUSP, ONCE, Dosing Weight 100, kg, Priority : STAT, Start date: 08/16/17 0:11:00 CDT, Stop date: 08/16/17 0:11:00 CDT Notes: (sodium polystyrene sulfonate 15 gm/60 ml LUCÍA) Shake well before use. (Same as: Kayexalate, SPS) Start Date: 08/16/17 Stop Date: 08/16/17 Status: Completed labetalol 20 mg, Route: IVP, Drug form: INJ, ONCE, Dosing Weight 100, kg, Priority: STAT, Start date: 08/16/17 6:11:00 CDT, Stop date: 08/16/17 6:11:00 CDT Start Date: 08/16/17 Stop Date: 08/16/17 Status: Discontinued labetalol 20 mg, Route: IVP, Drug form: INJ, ONCE, Dosing Weight 100, kg, Start date: 07/24 09/08 7:48:00 CDT, Stop date: 08/16/17 7:48:00 CDT Start Date: 08/16/17 Stop Date: 08/16/17 Status: Completed Lasix 40 mg, 4 mL, Route: IVP, Drug form: INJ, ONCE, Dosing Weight 100, kg, Priority: STAT, Start date: 08/16/17 0:11:00 CDT, Stop date: 08/16/17 0:11:00 CDT Notes: (Same as: Lasix) MEDICATION WASTE Product Size: 40 mgProduct Was savana: ___ mg Start Date: 08/16/17 Stop Date: 08/16/17 Status: Completed morphine Sulfate 1 mg, 1 mL, Route: IVP, Drug form: SOLN, Q4H, Dosing Weight 100, kg, PRN Pain Sc ore 7-10, Start date: 08/16/17 7:48:00 CDT, Duration: 30 day, Stop date: 8 7:47:00 CDT Notes: Preservative free. (Same as: Morphine Sulfate-PF) Start Date: 08/16/17 Stop Date: 08/16/17 Status: Discontinued morphine Sulfate 2 mg, 2 mL, Route: IVP, Drug form: SOLN, Q4H, Dosing Weight 100, kg, PRN Pain Sc ore 7-10, Start date: 08/16/17 14:40:00 CDT, Duration: 30 day, Stop date: 14:39:00 CDT Notes: Preservative free. (Same as: Morphine Sulfate-PF) Start Date: 08/16/17 Stop Date: 08/17/17 Status: Discontinued NIFEdipine 90 mg oral tablet, extended release 90 mg = 1 tab, PO, Daily, # 30 tab, 0 Refill(s) Start Date: 08/16/17 Status: Ordered NIFEdipine 90 mg oral tablet, extended release 90 mg, 1 tab, Route: PO, Drug form: ERTAB, Daily, Dosing Weight 102.756, kg, Sta rt date: 08/16/17 17:19:00 CDT, Duration: 30 day, Stop date: 09/15/17 9:00:00 CD T Notes: (Same as: Adalat CC,Procardia XL)"Do Not Crush" "Avoid grapefruit and gr apefruit juice" Start Date: 08/16/17 Stop Date: 08/17/17 Status: Discontinued normal saline 0.9% IV 1,000 mL 1,000 mL, Rate: 50 ml/hr, Infuse over: 20 hr, Route: IV, Dosing Weight 100 kg, T otal Volume: 1,000, Start date: 08/16/17 8:47:00 CDT, Duration: 30 day, Stop harish e: 09/15/17 8:46:00 CDT, 2.2, m2 Start Date: 08/16/17 Stop Date: 08/17/17 Status: Discontinued ondansetron 4 mg, 1 tab, Route: PO, Drug form: TABDIS, Q6H, Dosing Weight 100, kg, PRN Nause a & Vomiting, Start date: 08/16/17 6:37:00 CDT, Stop date: 09/15/17 6:36:00 CDT Notes: (Same as: Zofran ODT) Start Date: 08/16/17 Stop Date: 08/17/17 Status: Discontinued pantoprazole 40 mg, 1 tab, Route: PO, Drug form: ECTAB, Before Breakfast, Dosing Weight 102.7 56, kg, Start date: 08/17/17 7:30:00 CDT, Duration: 30 day, Stop date: 09/15/17 7:30:00 CDT Notes: Tablet should not be chewed or crushed.(Same as: Protonix) Start Date: 08/17/17 Stop Date: 08/17/17 Status: Discontinued pantoprazole 40 mg oral enteric coated tablet 40 mg = 1 tab, PO, Before Breakfast, # 30 tab, 0 Refill(s) Start Date: 08/16/17 Status: Ordered tramadol 50 mg oral tablet 50 mg, Route: PO, Drug form: TAB, ONCE, Dosing Weight 100, kg, Priority: STAT, S tart date: 08/16/17 6:04:00 CDT, Stop date: 08/16/17 6:04:00 CDT Start Date: 08/16/17 Stop Date: 08/16/17 Status: Completed Zofran ODT 4 mg, Route: PO, Drug form: TABDIS, ONCE, Dosing Weight 100, kg, Priority: STAT, Start date: 08/16/17 6:03:00 CDT, Stop date: 08/16/17 6:03:00 CDT Start Date: 08/16/17 Stop Date: 08/16/17 Status: Completed Results ELECTROLYTES 1 2 3 Most recent to oldest [Reference Range]: 141 mEq/L (08/17/17 4:23 AM) 144 mEq/L (08/16/17 3:33 AM) 142 mEq/L (08/15/17 11:40 PM) Sodium Lvl [135-145 mEq/L] 5.0 mEq/L (08/17/17 4:23 AM) 5.2 mEq/L *HI* (08/16/17 3:33 AM) 5.6 mEq/L *HI* (08/15/17 11:40 PM) Potassium Lvl [3.5-5.1 mEq/L] 110 mEq/L *HI* (08/17/17 4:23 AM) 118 mEq/L *HI* (08/16/17 3:33 AM) 117 mEq/L *HI* (08/15/17 11:40 PM) Chloride Lvl [95-109 mEq/L] 21 mEq/L *LOW* (08/17/17 4:23 AM) 14 mEq/L *LOW* (08/16/17 3:33 AM) 16 mEq/L *LOW* (08/15/17 11:40 PM) CO2 [24-32 mEq/L] 15.0 mEq/L (08/17/17 4:23 AM) 17.2 mEq/L (08/16/17 3:33 AM) 14.6 mEq/L (08/15/17 11:40 PM) AGAP [10.0-20.0 mEq/L] CHEM PANEL 1 2 3 Most recent to oldest [Reference Range]: 6.11 mg/dL *HI* (08/17/17 4:23 AM) 6.77 mg/dL *HI* (08/16/17 3:33 AM) 7.06 mg/dL *HI* (08/15/17 11:40 PM) Creatinine Lvl [0.50-1.40 mg/dL] 9 mL/min/1.73m2 1 *NA* (08/17/17 4:23 AM) 8 mL/min/1.73m2 2 *NA* (08/16/17 3:33 AM) 8 mL/min/1.73m2 3 *NA* (08/15/17 11:40 PM) eGFR 48 mg/dL *HI* (08/17/17 4:23 AM) 64 mg/dL *HI* (08/16/17 3:33 AM) 65 mg/dL *HI* (08/15/17 11:40 PM) BUN [7-22 mg/dL] 8 (08/17/17 4:23 AM) 9 (08/16/17 3:33 AM) 9 (08/15/17 11:40 PM) B/C Ratio [6-25] 133 mg/dL *HI* (08/17/17 4:23 AM) 132 mg/dL *HI* (08/16/17 3:33 AM) 128 mg/dL *HI* (08/15/17 11:40 PM) Glucose Lvl [70-99 mg/dL] 7.0 g/dL (08/17/17 4:23 AM) 7.0 g/dL (08/16/17 3:33 AM) 7.1 g/dL (08/15/17 11:40 PM) Total Protein [6.4-8.4 g/dL] 2.7 g/dL *LOW* (08/17/17 4:23 AM) 2.8 g/dL *LOW* (08/16/17 3:33 AM) 2.8 g/dL *LOW* (08/15/17 11:40 PM) Albumin Lvl [3.5-5.0 g/dL] 4.3 g/dL *HI* (08/17/17 4:23 AM) 4.2 g/dL (08/16/17 3:33 AM) 4.3 g/dL *HI* (08/15/17 11:40 PM) Globulin [2.7-4.2 g/dL] 0.6 *LOW* (08/17/17 4:23 AM) 0.7 (08/16/17 3:33 AM) 0.7 (08/15/17 11:40 PM) A/G Ratio [0.7-1.6] 7.6 mg/dL *LOW* (08/17/17 4:23 AM) 7.9 mg/dL *LOW* (08/16/17 3:33 AM) 7.6 mg/dL *LOW* (08/15/17 11:40 PM) Calcium Lvl [8.5-10.5 mg/dL] 1.7 mg/dL *LOW* (08/17/17 4:23 AM) Magnesium Lvl [1.8-2.4 mg/dL] 10 unit/L (08/17/17 4:23 AM) 9 unit/L (08/16/17 3:33 AM) 11 unit/L (08/15/17 11:40 PM) ALT [0-65 unit/L] 10 unit/L (08/17/17 4:23 AM) 10 unit/L (08/16/17 3:33 AM) 15 unit/L (08/15/17 11:40 PM) AST [0-37 unit/L] 79 unit/L (08/17/17 4:23 AM) 86 unit/L (08/16/17 3:33 AM) 84 unit/L (08/15/17 11:40 PM) Alk Phos [39-136 unit/L] 0.2 mg/dL (08/17/17 4:23 AM) 0.3 mg/dL (08/16/17 3:33 AM) 0.2 mg/dL (08/15/17 11:40 PM) Bili Total [0.2-1.3 mg/dL] 1Result Comment: The eGFR is calculated using [...] 3 Most recent to oldest [Reference Range]: 417 unit/L *HI* (08/15/17 11:40 PM) Total CK [12-191 unit/L] 3.6 ng/mL (08/15/17 11:40 PM) CK MB [0.5-3.6 ng/mL] 0.9 (08/15/17 11:40 PM) CK MB Index [0.0-2.5] 0.02 ng/mL (08/15/17 11:40 PM) Troponin-I [0.00-0.40 ng/mL] URINE AND STOOL 1 2 3 Most recent to oldest [Reference Range]: Slight *ABN* (08/16/17:17 AM) UA Turbidity [Clear] Yellow *NA* (08/16/17 12:17 AM) UA Color [Yellow] 5.0 (08/16/17 12:17 AM) UA pH [5.0-8.0] 1.011 (08/16/17 12: AM) UA Spec Grav [<=1.030] 150 mg/dL *NA* (08/16/17 12:17 AM) UA Glucose Small *ABN* (08/16/17 12:17 AM) UA Blood [Negative] Negative mg/dL *NA* (08/16/17:17 AM) UA Ketones [Negative mg/dL] >=300 mg/dL *ABN* (08/16/17: AM) UA Protein [Negative mg/dL] <=1.0 mg/dL *NA* (08/16/17: AM) UA Urobilinogen [0.1-1.0 mg/dL] Negative *NA* (08/16/17 12:17 AM) UA Bili [Negative] Negative (08/16/17 12:17 AM) UA Leuk Est [Negative] Negative (08/16/17 12:17 AM) UA Nitrite [Negative] 1 /HPF (08/16/17 12:17 AM) UA WBC [0-5 /HPF] 6 /HPF *HI* (08/16/17 12:17 AM) UA RBC [0-2 /HPF] Occasional /HPF *NA* (08/16/17 12:17 AM) UA Bacteria [None Seen /HPF] Many /LPF *ABN* (08/16/17 12:17 AM) UA Sq Epi [Few /LPF] 4 /LPF *HI* (08/16/17 12:17 AM) UA Hyal Cast [0-2 /LPF] Few /LPF *NA* (08/16/17 12:17 AM) UA Mucus [None Seen /LPF] IMMUNOLOGY 1 2 3 Most recent to oldest [Reference Range]: Negative *NA* (08/16/17 9:45 AM) Hep Bs Ag [Negative] HEMATOLOGY 1 2 3 Most recent to oldest [Reference Range]: 6.0 K/CMM (08/17/17 4:23 AM) 7.8 K/CMM (08/15/17 11:40 PM) WBC [3.7-10.4 K/CMM] 2.86 M/CMM *LOW* (08/17/17 4:23 AM) 2.72 M/CMM *LOW* (08/15/17 11:40 PM) RBC [4.20-5.40 M/CMM] 8.7 g/dL *LOW* (08/17/17 4:23 AM) 8.4 g/dL *LOW* (08/15/17 11:40 PM) Hgb [12.0-16.0 g/dL] 25.9 % *LOW* (08/17/17 4:23 AM) 25.0 % *LOW* (08/15/17 11:40 PM) Hct [36.0-48.0 %] 90.5 fL (08/17/17 4:23 AM) 91.8 fL (08/15/17 11:40 PM) MCV [80.0-98.0 fL] 30.4 pg (08/17/17 4:23 AM) 30.7 pg (08/15/17 11:40 PM) MCH [27.0-31.0 pg] 33.6 g/dL (08/17/17 4:23 AM) 33.4 g/dL (08/15/17 11:40 PM) MCHC [32.0-36.0 g/dL] 15.3 % *HI* (08/17/17 4:23 AM) 15.2 % *HI* (08/15/17 11:40 PM) RDW [11.5-14.5 %] 8.7 fL (08/17/17 4:23 AM) 8.5 fL (08/15/17 11:40 PM) MPV [7.4-10.4 fL] 208 K/CMM (08/17/17 4:23 AM) 216 K/CMM (08/15/17 11:40 PM) Platelet [133-450 K/CMM] 49.4 % (08/17/17 4:23 AM) 54.9 % (08/15/17 11:40 PM) Segs [45.0-75.0 %] 39.5 % (08/17/17 4:23 AM) 33.9 % (08/15/17 11:40 PM) Lymphocytes [20.0-40.0 %] 7.1 % (08/17/17 4:23 AM) 6.9 % (08/15/17 11:40 PM) Monocytes [2.0-12.0 %] 3.2 % (08/17/17 4:23 AM) 3.3 % (08/15/17 11:40 PM) Eosinophils [0.0-4.0 %] 0.8 % (08/17/17 4:23 AM) 1.0 % (08/15/17 11:40 PM) Basophils [0.0-1.0 %] 3.0 K/CMM (08/17/17 4:23 AM) 4.3 K/CMM (08/15/17 11:40 PM) Segs-Bands # [1.5-8.1 K/CMM] 2.4 K/CMM (08/17/17 4:23 AM) 2.7 K/CMM (08/15/17 11:40 PM) Lymphocytes # [1.0-5.5 K/CMM] 0.4 K/CMM (08/17/17 4:23 AM) 0.5 K/CMM (08/15/17 11:40 PM) Monocytes # [0.0-0.8 K/CMM] 0.2 K/CMM (08/17/17 4:23 AM) 0.3 K/CMM (08/15/17 11:40 PM) Eosinophils # [0.0-0.5 K/CMM] 0.1 K/CMM (08/15/17 11:40 PM) Basophils # [0.0-0.2 K/CMM] 14.0 seconds (08/17/17 4:23 AM) PT [12.0-14.7 seconds] 1.08 (08/17/17 4:23 AM) INR [0.85-1.17] 30.1 seconds (08/17/17 4:23 AM) PTT [22.9-35.8 seconds] Immunizations Given and Recorded [...] History Type Response Substance Abuse Use: None. Sexual Sexually active: No. Exercise Exercise duration: 30. Exe rcise frequency: [...] Reg Smoking Cessation Counseling No entered on: 08/15/17 1pt denies current alcohol use Assessment and Plan Extracted from: Title: Nephrology * Author: Ernie Woods MD Date : 08/17/17 Impression and Plan 1.Volume overload resolved [...] in room this AM getting HD Extracted from: Title: General Admission H&P * Author: Musa Obrien Date: 08/16/17 Jeremy COCHRAN Patient: GISELA SOL Age: 41 years Sex: [...] she ran out. Patient was discharged from [facility] on June 27, 2017 where she was [...] All Problems Escherichia coli / SNOMED CT 209083107 / Confirmed Problem added by Discern Expert. E.coli, 09/15/2016 urine - 09/15/16 (ESBL) urine - 12/06/16 Below knee amputation status / SNOMED CT 5100480989 / Confirmed Right sided BKA Klebsiella / SNOMED CT 185344566 / Confirmed Problem added by Discern Expert. Blood, 03/29/2016 urine - 10/11/16 (ESBL) Left heart failure with preserved LV function / SNOMED CT 9270074140 / Confirmed Metabolic acidosis / SNOMED CT 91110724 / Confirmed MRSA / SNOMED CT 950424730 / Confirmed Problem added by Discern Expert. Left buttock abscess, 11/29/2013 MRSA / SNOMED CT 569189405 / Confirmed Problem added by Discern Expert. nares - 02/19/16 right foot aspirate - 02/23/16 VRE / SNOMED CT 079666884 / Confirmed Problem added by Discern Expert. urine - 12/06/16, Active Problems (8) Below knee amputation status Escherichia coli Klebsiella Left heart failure with preserved LV function Metabolic acidosis MRSA MRSA VRE Histories Past Medical History: Active Below knee amputation status ([id number]) Comments: 08/24/2016 CDT 22:35 CDT - Laura Mckeon ret RN Right sided BKA Resolved CKD (chronic kidney disease) (7048439521): Onset on 09/01/2015 at 39 years. Resolved. DM (diabetes mellitus) ([id number]): Onset on 08/31/2009 at 33 years. Resolved on 09/07/2016 at 40 years. HTN - Hypertension (0449548668): Onset on 08/31/2009 at 33 years. Resolved on 09/07/2016 at 40 years. Anxiety (5269741860): Resolved. Chronic depression (576589404): Resolved. Diabetes mellitus (589353790): Resolved. Diabetes mellitus (914418563): Resolved. Kidney disease (2504128259): Resolved. Biliary colic (898709483): Resolved on 08/17/2016 at 40 years. Hypercholesteremia (30118075): Resolved. HLD (hyperlipidemia) (23559318): Resolved. Hypertension (3990244213): Resolved. Pancreatitis (826345227): Resolved. Family History: Father High blood pressure Heart failure Type 2 diabetes mellitus Mother High blood pressure Heart failure Type 2 diabetes mellitus Lung cancer Procedure history: Amputation ([id number]). Comments: 11/01/2015 21:50 - Rashawn Garzon RN 2 toes in R foot Amputation below-knee ([id number]). Comments: 09/04/2016 22:51 - Angela Dumas RN 3/8/17 Catheter procedure ([id number]). section ([id number]). Comments: 11/26/2013 01:52 - Chaka Shepherd DO x6 section ([id number]). Cholecystectomy (62323407). Social History Social & Psychosocial Habits Alcohol 08/17/2016 Use: Current Previous [...] Signs (last 24 hrs) Last Charted Temp Oral98.5 DegF (AUG 16 04:55) Heart Rate PeripheralH 119bpm (AUG 16 06:07) Resp Rate 17 BRMIN (APR 25 06:07) SBPH 180mmHg (AUG 16 06:07) DBPH 105mmHg (AUG 16 06:07) OhS3407 % (AUG 16 06:) [id number] kg (AUG 15 21:57) Intake and Output No I & O Data Available , 24 hour intake [...] review: Labs (Last four charted values) WBC 7.8(AUG 15) Hgb L 8.4(AUG 15) Hct L 25.0(AUG 15) Plt 216(AUG 15) Na 144(AUG 16)142(AUG 15) K H 5.2(AUG 16)H 5.6(AUG 15) CO2 L 14(AUG 16)L 16(AUG 15) Cl H 118(AUG 16)H 117(AUG 15) Cr H 6.77(AUG 16)H 7.06(AUG 15) BUN H 64(AUG 16)H 65(AUG 15) Glucose Random H 132(AUG 16)H 128(AUG 15) Ca L 7.9(AUG 16)L 7.6(AUG 15) Troponin 0.02(AUG 15) CK MB 3.6(AUG 15) Total CK H 417(AUG 15). Chest 1view DX 08/15/17 22:57:47 IMPRESSION: No [...] 8. DVT prophylaxis. Lovenox subcutaneo us. Addendum patient examined bedside by will get HD in morning, the n [place] home Lettymooctavio c/w prn pain medications nNolan MD on 08/16/2017 14:47
--- OUTSIDE RECORDS SUMMARY | 2019-09-10 20:11 | XMS REPORT | Summary of Care ---
Author Author [facility] spital Organization [facility] Address Unknown Phone Unavailable Encounter PRIMITIVO Mariano(SANGITA) [id number] Date(s): 01/03/17 - 01/10/17 [facility] [address] [place], [place] [address] [phone] Final: Urinary tract infection, site not specified Discharge Disposition: Home or Self Care Attending Physician: Kassie Turner MD Admitting Physician: Kassie Turner MD Vital Signs 1 2 3 Most recent to oldest [Reference Range]: 170.18 cm (01/03/17 9:28 PM) 170.18 cm (01/03/17 4:04 PM) Height 98.4 DegF (01/10/17 7:23 PM) 98.1 DegF (01/10/17 12:00 PM) 97.9 DegF (01/10/17 8:00 AM) Temperature Oral [96.4-99.1 DegF] 135/75 mmHg (01/10/17 7:23 PM) 137/73 mmHg (01/10/17 12:00 PM) 102/51 mmHg (01/10/17 8:00 AM) Blood Pressure [90-140/60-90 mmHg] 16 BRMIN (01/10/17 7:23 PM) 16 BRMIN (01/10/17 12:00 PM) 18 BRMIN (01/10/17 8:00 AM) Respiratory Rate [14-20 BRMIN] 109 bpm *HI* (01/10/17 7:23 PM) 107 bpm *HI* (01/10/17 12:00 PM) 105 bpm *HI* (01/10/17 8:00 AM) Peripheral Pulse Rate [60-100 bpm] 102.841 kg (01/03/17 9:28 PM) 110 kg (01/03/17 4:04 PM) Weight 35.51 m2 (01/03/17 9:28 PM) 37.98 m2 (01/03/17 4:04 PM) Body Mass Index Problem List Condition [...] 2 tab, Route: PO, Drug form: TAB, ONCE, Dosing Weight 110, kg, Priority: STAT, Start date: 01/03/17 17:04:00 CDT, Stop date: 01/03/17 17:04:00 CDT Notes: Do not exceed 4 gm/day. (Same as: Tylenol) Start Date: 01/03/17 Stop Date: 01/03/17 Status: Completed acetaminophen 650 mg, 2 tab, Route: PO, Drug form: TAB, Q4H, Dosing Weight 102.841, kg, PRN Pa in 1-3/Temp > 100.4 F, Start date: 01/03/17 22:57:00 CDT, Duration: 30 day, Stop date: 02/02/17 22:56:00 CDT Notes: Do not exceed 4 gm/day. (Same as: Tylenol) Start Date: 01/03/17 Stop Date: 01/10/17 Status: Discontinued calcium gluconate + sodium chloride 0.9% INJ 100 mL 2,000 mg, 20 mL, Route: IVPB, ONCE, Dosing Weight 102.841, kg, Start date: 01/10 8:27:00 CDT, Stop date: 01/10/17 8:27:00 CDT Notes: WASTE: F/P - Sink; E - Municipal Trash Bin Start Date: 01/10/17 Stop Date: 01/10/17 Status: Completed carvedilol 25 mg, 2 tab, Route: PO, Drug form: TAB, Q12H, Dosing Weight 102.841, kg, Start date: 01/04/17 9:00:00 CDT, Stop date: 02/02/17 21:00:00 CDT Notes: Give with food. (Same As: Coreg) Start Date: 01/04/17 Stop Date: 01/10/17 Status: Discontinued carvedilol 12.5 mg oral tablet 25 mg = 2 tab, PO, Q12H, # 360 tab, 0 Refill(s), Pharmacy: [facility] [id number] Start Date: 01/10/17 Stop Date: 04/10/17 Status: Ordered ciprofloxacin 400 mg, 200 mL, Route: IVPB, Drug form: INJ, [id number], Dosing Weight 102.841, kg, Start date: 01/04/17 13:00:00 CDT, Stop date: 01/11/17 1:00:00 CDT, ABX Indicat ion: Genital Tract Infection Notes: Do not refrigerate Start Date: 01/04/17 Stop Date: 01/07/17 Status: Discontinued d50 syringe 25 gm, 50 mL, Route: IV, Drug Form: INJ, Dosing Weight 102.841, kg, ONCE, Start date: 01/06/17 7:28:00 CDT, Stop date: 01/06/17 7:28:00 CDT Start Date: 01/06/17 Stop Date: 01/06/17 Status: Completed Dextrose 50% Syringe 12.5 gm, 25 mL, Route: IVP, Drug Form: INJ, Dosing Weight 102.841, kg, PRN, PRN Blood Glucose Results, Start date: 01/03/17 22:59:00 CDT, Duration: 30 day, Stop date: 02/02/17 22:58:00 CDT Start Date: 01/03/17 Stop Date: 01/10/17 Status: Discontinued Dextrose 50% Syringe 25 gm, 50 mL, Route: IVP, Drug Form: INJ, Dosing Weight 102.841, kg, PRN, PRN Bl ood Glucose Results, Start date: 01/03/17 22:59:00 CDT, Duration: 30 day, Stop d ate: 02/02/17 22:58:00 CDT Start Date: 01/03/17 Stop Date: 01/10/17 Status: Discontinued Diflucan 150 mg, 1.5 tab, Route: PO, Drug form: TAB, ONCE, Dosing Weight 102.841, kg, Sta rt date: 01/06/17 12:07:00 CDT, Stop date: 01/06/17 12:07:00 CDT Notes: (Same as: Diflucan) Start Date: 01/06/17 Stop Date: 01/06/17 Status: Deleted Diflucan 150 mg, 1 tab, Route: PO, Drug form: TAB, ONCE, Dosing Weight 102.841, kg, Start date: 01/06/17 13:08:00 CDT, Stop date: 01/06/17 13:08:00 CDT Notes: (Same as: Diflucan) Start Date: 01/06/17 Stop Date: 01/06/17 Status: Completed Dilaudid 1 mg, 1 mL, Route: IV, Drug form: INJ, Q6H, Dosing Weight 102.841, kg, PRN Pain Score 6-10, Start date: 01/05/17 23:26:00 CDT, Duration: 30 day, Stop date: 01/22 08/08 23:25:00 CDT Notes: Same as: Dilaudid Start Date: 01/05/17 Stop Date: 01/06/17 Status: Discontinued Dilaudid 1 mg, 1 mL, Route: IVP, Drug form: INJ, ONCE, Dosing Weight 102.841, kg, Priorit y: STAT, Start date: 01/04/17 4:33:00 CDT, Stop date: 01/04/17 4:33:00 CDT Notes: Same as: Dilaudid Start Date: 01/04/17 Stop Date: 01/04/17 Status: Completed Dilaudid 1 mg, 1 mL, Route: IV, Drug form: INJ, Q4H, Dosing Weight 102.841, kg, PRN Pain Score 6-10, Start date: 01/06/17 15:45:00 CDT, Duration: 30 day, Stop date: 01/22 09/07 15:44:00 CDT Notes: Same as: Dilaudid Start Date: 01/06/17 Stop Date: 01/10/17 Status: Discontinued Dilaudid 0.5 mg, 0.5 mL, Route: IVP, Drug form: INJ, Q4H, Dosing Weight 102.841, kg, PRN Pain Score 7-10, Start date: 01/04/17 9:56:00 CDT, Stop date: 02/03/17 9:55:00 C DT Notes: Same as: Dilaudid Start Date: 01/04/17 Stop Date: 01/05/17 Status: Discontinued Dilaudid 1 mg, Route: IVP, ONCE, Dosing Weight 110, kg, Priority: STAT, Start date: 01/03 20:01:00 CDT, Stop date: 01/03/17 20:01:00 CDT Start Date: 01/03/17 Stop Date: 01/03/17 Status: Completed glucagon 1 mg, Route: IM, Drug form: PDR/INJ, PRN, Dosing Weight 102.841, kg, PRN Blood G lucose Results, Start date: 01/03/17 22:59:00 CDT, Duration: 30 day, Stop date: 02/02/17 22:58:00 CDT Start Date: 01/03/17 Stop Date: 01/10/17 Status: Discontinued heparin 5,000 unit, 1 mL, Route: SUB-Q, Drug form: INJ, Q12H, Dosing Weight 110, kg, Sta rt date: 01/03/17 21:00:00 CDT, Duration: 30 day, Stop date: 02/02/17 9:00:00 CD T Notes: porcine heparin Start Date: 01/03/17 Stop Date: 01/10/17 Status: Discontinued hydrALAZINE 10 mg, 0.5 mL, Route: IV, Drug form: INJ, ONCE, Dosing Weight 102.841, kg, Start date: 01/03/17 22:25:00 CDT, Stop date: 01/03/17 22:25:00 CDT Notes: (Same as: Apresoline)Push over 5 minutes Start Date: 01/03/17 Stop Date: 01/03/17 Status: Completed hydrALAZINE 20 mg, 1 mL, Route: IVP, Drug form: INJ, ONCE, Dosing Weight 102.841, kg, Priori ty: NOW, Start date: 01/05/17 9:57:00 CDT, Stop date: 01/05/17 9:57:00 CDT Notes: (Same as: Apresoline)Push over 5 minutes Start Date: 01/05/17 Stop Date: 01/05/17 Status: Ordered hydrALAZINE 25 mg oral tablet 75 mg, 3 tab, Route: PO, Drug form: TAB, TID, Dosing Weight 102.841, kg, Start d ate: 01/04/17 9:00:00 CDT, Stop date: 02/02/17 17:00:00 CDT Notes: (Same as: Apresoline) May interfere w/enteral feedings Take With Food. Start Date: 01/04/17 Stop Date: 01/10/17 Status: Discontinued hydrALAZINE 25 mg oral tablet 75 mg = 3 tab, PO, TID, # 810 tab, 0 Refill(s), Pharmacy: [id number] Start Date: 01/10/17 Stop Date: 04/10/17 Status: Ordered influenza virus vaccine, inactivated 0.5 mL, Route: IM, Drug Form: SUSP, Daily, Start date: 01/10/17 18:30:00 CDT, Du ration: 1 doses or times, Stop date: 01/10/17 18:30:00 CDT Notes: (Same as: Fluzone Quadrivalent, Fluarix Quadrivalent)For 3 years of age a nd older (0.5 mL IM)Shake well before use Start Date: 01/10/17 Stop Date: 01/10/17 Status: Completed insulin lispro 10 unit, 0.1 mL, Route: SUB-Q, Drug form: SOLN, Sliding Scale, Dosing Weight 102 .841, kg, PRN Blood Glucose Results, Start date: 01/03/17 22:59:00 CDT, Duration : 30 day, Stop date: 02/02/17 22:58:00 CDT Notes: (Same as: Humalog ) Roll in palms of hands gently; Do not shake `vigorou sly. "Single Patient Use Only " (Restricted to patients requiring a dose > 60 units)WASTE: F/P - Black; E - Municipal Trash Bin Stable for 28 days at room temperature.Expires in days from Date Start Date: 01/03/17 Stop Date: 01/10/17 Status: Discontinued insulin lispro 6 unit, 0.06 mL, Route: SUB-Q, Drug form: SOLN, Sliding Scale, Dosing Weight 102 .841, kg, PRN Blood Glucose Results, Start date: 01/03/17 22:59:00 CDT, Duration : 30 day, Stop date: 02/02/17 22:58:00 CDT Notes: (Same as: Humalog ) Roll in palms of hands gently; Do not shake `vigorou sly. "Single Patient Use Only " (Restricted to patients requiring a dose > 60 units)WASTE: F/P - Black; E - Municipal Trash Bin Stable for 28 days at room temperature.Expires in days from Date Start Date: 01/03/17 Stop Date: 01/10/17 Status: Discontinued insulin lispro 8 unit, 0.08 mL, Route: SUB-Q, Drug form: SOLN, Sliding Scale, Dosing Weight 102 .841, kg, PRN Blood Glucose Results, Start date: 01/03/17 22:59:00 CDT, Duration : 30 day, Stop date: 02/02/17 22:58:00 CDT Notes: (Same as: Humalog ) Roll in palms of hands gently; Do not shake `vigorou sly. "Single Patient Use Only " (Restricted to patients requiring a dose > 60 units)WASTE: F/P - Black; E - Municipal Trash Bin Stable for 28 days at room temperature.Expires in days from Date Start Date: 01/03/17 Stop Date: 01/10/17 Status: Discontinued insulin lispro 4 unit, 0.04 mL, Route: SUB-Q, Drug form: SOLN, Sliding Scale, Dosing Weight 102 .841, kg, PRN Blood Glucose Results, Start date: 01/03/17 22:59:00 CDT, Duration : 30 day, Stop date: 02/02/17 22:58:00 CDT Notes: (Same as: Humalog ) Roll in palms of hands gently; Do not shake `vigorou sly. "Single Patient Use Only " (Restricted to patients requiring a dose > 60 units)WASTE: F/P - Black; E - Municipal Trash Bin Stable for 28 days at room temperature.Expires in days from Date Start Date: 01/03/17 Stop Date: 01/10/17 Status: Discontinued insulin lispro 2 unit, 0.02 mL, Route: SUB-Q, Drug form: SOLN, Sliding Scale, Dosing Weight 102 .841, kg, PRN Blood Glucose Results, Start date: 01/03/17 22:59:00 CDT, Duration : 30 day, Stop date: 02/02/17 22:58:00 CDT Notes: (Same as: Humalog ) Roll in palms of hands gently; Do not shake `vigorou sly. "Single Patient Use Only " (Restricted to patients requiring a dose > 60 units)WASTE: F/P - Black; E - Municipal Trash Bin Stable for 28 days at room temperature.Expires in days from Date Start Date: 01/03/17 Stop Date: 01/10/17 Status: Discontinued Insulin regular 10 unit, 0.1 mL, Route: IV, Drug form: INJ, ONCE, Dosing Weight 102.841, kg, Bessie ority: STAT, Start date: 01/06/17 7:28:00 CDT, Stop date: 01/06/17 7:28:00 CDT Notes: (Same as: Humulin R and NovoLIN R)WASTE: F/P - Black; E - Municipal Trash Bin (Do not shake) Start Date: 01/06/17 Stop Date: 01/06/17 Status: Completed INVanz + sodium chloride 0.9% INJ 100 mL 500 mg, Route: IVPB, [id number], Dosing Weight 102.841, kg, Start date: 01/10/17 17 :00:00 CDT, Duration: 7 day, Stop date: 01/16/17 17:00:00 CDT, ABX Indication: I nfectious Diarrhea Notes: (Same as: INVanz) Refrigerate. NOT COMPATIBLE WITH D5W.Stable in refrige rator for 24 hours MEDICATION WASTE Product Size: 1000 mgProduct Wasted : ___ mg Start Date: 01/10/17 Stop Date: 01/10/17 Status: Discontinued Kayexalate 30 gm, 120 mL, Route: PO, Drug form: SUSP, ONCE, Dosing Weight 102.841, kg, Star t date: 01/06/17 7:20:00 CDT, Stop date: 01/06/17 7:20:00 CDT Notes: (sodium polystyrene sulfonate 15 gm/60 ml LUCÍA) Shake well before use. (Same as: Kayexalate, SPS) Start Date: 01/06/17 Stop Date: 01/06/17 Status: Completed labetalol 20 mg, PO, BID, 0 Refill(s) Start Date: 01/03/17 Stop Date: 01/10/17 Status: Discontinued Lasix 20 mg oral tablet 20 mg = 1 tab, PO, BID, 0 Refill(s) Start Date: 01/03/17 Stop Date: 01/10/17 Status: Discontinued lidocaine 1% 50 mg, 5 mL, Route: INTRADERM, Drug Form: INJ, Dosing Weight 102.841, kg, ONCALL , Start date: 01/10/17 12:00:00 CDT, Duration: 30 day, Stop date: 02/09/17 11:59 :00 CDT Notes: (Same as: Xylocaine) Start Date: 01/10/17 Stop Date: 01/10/17 Status: Discontinued linezolid 600 mg, 300 mL, Route: IV, Drug form: SOLN, ONCE, Dosing Weight 110, kg, Start d ate: 01/03/17 16:41:00 CDT, Stop date: 01/03/17 16:41:00 CDT, ABX Indication: Ur inary Tract Infection Notes: (Same as: Zyvox) Start Date: 01/03/17 Stop Date: 01/03/17 Status: Completed linezolid 600 mg, 300 mL, Route: IVPB, Drug form: SOLN, [id number], Dosing Weight 102.841, kg , Start date: 01/04/17 6:00:00 CDT, Duration: 14 day, Stop date: 01/17/17 18:00: 00 CDT, ABX Indication: Urinary Tract Infection Notes: (Same as: Zyvox) Start Date: 01/04/17 Stop Date: 01/06/17 Status: Voided With Results meropenem + sodium chloride 0.9% INJ 100 mL 500 mg, Route: IVPB, [id number], Dosing Weight 102.841, kg, CrCL= 10 -25 ml/min, E xtended infusion, infuse over 3 hours, Start date: 01/07/17 16:00:00 CDT, Stop d ate: 01/20/17 16:00:00 CDT, ABX Indication: Urinary Tract Infection Notes: Same as Merrem MEDICATION WASTE Product Size: 500 mgProduct Wast ed: ___ mg Start Date: 01/07/17 Stop Date: 01/10/17 Status: Discontinued metFORMIN 500 mg, PO, BID, 0 Refill(s) Start Date: 01/03/17 Stop Date: 01/10/17 Status: Discontinued metFORMIN 1000 mg oral tablet 1,000 mg = 1 tab, PO, BID, # 180 tab, 0 Refill(s), Pharmacy: [facility] [id number] Start Date: 01/10/17 Stop Date: 04/10/17 Status: Ordered minoxidil 2.5 mg, 1 tab, Route: PO, Drug form: TAB, Q12H, Dosing Weight 102.841, kg, Start date: 01/06/17 9:00:00 CDT, Duration: 30 day, Stop date: 02/04/17 21:00:00 CDT Notes: (Same as:Loniten) Start Date: 01/06/17 Stop Date: 01/10/17 Status: Discontinued minoxidil 2.5 mg oral tablet 2.5 mg = 1 tab, PO, Q12H, # 180 tab, 0 Refill(s), Pharmacy: [facility] [id number] Start Date: 01/10/17 Stop Date: 04/10/17 Status: Ordered morphine Sulfate 8 mg, Route: IVP, ONCE, Dosing Weight 110, kg, Priority: STAT, Start date: 01/03 16:29:00 CDT, Stop date: 01/03/17 16:29:00 CDT Start Date: 01/03/17 Stop Date: 01/03/17 Status: Completed morphine Sulfate 2 mg, 1 mL, Route: IVP, Drug form: SOLN, Q4H, Dosing Weight 102.841, kg, PRN Katherine n Score 7-10, Start date: 01/03/17 22:57:00 CDT, Duration: 30 day, Stop date: 22:56:00 CDT Start Date: 01/03/17 Stop Date: 01/04/17 Status: Discontinued NIFEdipine 30 mg oral tablet, extended release 30 mg, 1 tab, Route: PO, Drug form: ERTAB, ONCE, Dosing Weight 102.841, kg, Prio rity: NOW, Start date: 01/05/17 9:57:00 CDT, Stop date: 01/05/17 9:57:00 CDT Notes: (Same as: Adalat CC, Procardia XL) Give on empty stomach. Take 1 hour be fore or 2 hours after meal; "Avoid grapefruit and grapefruit juice". Do not cru sh Start Date: 01/05/17 Stop Date: 01/05/17 Status: Completed NIFEdipine 60 mg oral tablet, extended release 90 mg, 1 tab, Route: PO, Drug form: ERTAB, Daily, Dosing Weight 102.841, kg, Sta rt date: 01/04/17 9:00:00 CDT, Stop date: 02/02/17 9:00:00 CDT Notes: (Same as: Adalat CC,Procardia XL)"Do Not Crush" "Avoid grapefruit and gr apefruit juice" Start Date: 01/04/17 Stop Date: 01/08/17 Status: Discontinued NIFEdipine 60 mg oral tablet, extended release 30 mg, 1 tab, Route: PO, Drug form: ERTAB, Daily, Dosing Weight 102.841, kg, Sta rt date: 01/09/17 9:00:00 CDT, Duration: 30 day, Stop date: 02/07/17 9:00:00 CDT Notes: (Same as: Adalat CC, Procardia XL) Give on empty stomach. Take 1 hour be fore or 2 hours after meal; "Avoid grapefruit and grapefruit juice". Do not cru sh Start Date: 01/09/17 Stop Date: 01/10/17 Status: Discontinued NIFEdipine 90 mg oral tablet, extended release 90 mg = 1 tab, PO, Daily, # 90 tab, 0 Refill(s), Pharmacy: [facility] [id number] Start Date: 01/10/17 Stop Date: 04/10/17 Status: Ordered [place]loo 5/325 oral tablet 2 tab, Route: PO, Drug Form: TAB, Dosing Weight 102.841, kg, Q4H, PRN Pain Score 4-6, Start date: 01/05/17 12:00:00 CDT, Duration: 30 day, Stop date: 02/04/17 1 1:59:00 CDT Notes: (Same as: [place]loo 325/5) Do not exceed 4gm/day of acetaminophen. Start Date: 01/05/17 Stop Date: 01/10/17 Status: Discontinued ondansetron 4 mg, Route: IVP, Drug form: INJ, ONCE, Dosing Weight 110, kg, Priority: STAT, S tart date: 01/03/17 16:29:00 CDT, Stop date: 01/03/17 16:29:00 CDT Start Date: 01/03/17 Stop Date: 01/03/17 Status: Completed Pepcid 20 mg, 1 tab, Route: PO, Drug form: TAB, Q24H, Dosing Weight 102.841, kg, Start date: 01/04/17 9:00:00 CDT, Stop date: 01/11/17 9:00:00 CDT Notes: (Same as: Pepcid) Start Date: 01/04/17 Stop Date: 01/10/17 Status: Discontinued Reglan 5 mg, 1 tab, Route: PO, Drug form: TAB, ONCE, Start date: 01/06/17 8:20:00 CDT, Stop date: 01/06/17 8:20:00 CDT Notes: (Same as: Reglan) Take 30 min before meals Start Date: 01/06/17 Stop Date: 01/06/17 Status: Completed Reglan 5 mg oral tablet 5 mg, 1 tab, Route: PO, Drug form: TAB, QID-Before Meals, Dosing Weight 102.841, kg, Start date: 01/04/17 7:30:00 CDT, Stop date: 02/02/17 16:30:00 CDT Notes: (Same as: Reglan) Take 30 min before meals Start Date: 01/04/17 Stop Date: 01/10/17 Status: Discontinued Reglan 5 mg oral tablet 5 mg = 1 tab, PO, TID-Before Meals, # 90 tab, 0 Refill(s), Pharmacy: [facility] [id number] Start Date: 01/10/17 Stop Date: 02/09/17 Status: Ordered Saline Flush 0.9% 10 mL, Route: IVP, Drug Form: INJ, Dosing Weight 102.841, kg, PRN, PRN Line Flus h, Start date: 01/10/17 11:55:00 CDT, Duration: 30 day, Stop date: 02/09/17 11:5 4:00 CDT Notes: (Same as: BD Posiflush) Start Date: 01/10/17 Stop Date: 01/10/17 Status: Discontinued Saline Flush 0.9% 10 mL, Route: IVP, Drug Form: INJ, Dosing Weight 102.841, kg, Q8H, Start date: 0 01/10/17 16:00:00 CDT, Duration: 30 day, Stop date: 02/09/17 8:00:00 CDT Notes: (Same as: BD Posiflush) Start Date: 01/10/17 Stop Date: 01/10/17 Status: Discontinued Saline Flush 0.9% 10 ml, Route: IVP, Drug Form: INJ, Dosing Weight 102.841, kg, PRN, PRN Line Flus h, Start date: 01/03/17 22:57:00 CDT, Duration: 30 day, Stop date: 02/02/17 22:5 6:00 CDT Notes: (Same as: BD Posiflush) Start Date: 01/03/17 Stop Date: 01/10/17 Status: Discontinued Saline Flush 0.9% 10 mL, Route: IVP, Drug Form: INJ, Dosing Weight 112.273, kg, PRN, PRN Line Flus h, Start date: 01/03/17 16:08:00 CDT, Duration: 30 day, Stop date: 02/02/17 16:0 7:00 CDT Notes: (Same as: BD Posiflush) Start Date: 01/03/17 Stop Date: 01/10/17 Status: Discontinued sodium bicarbonate 8.4% 50 mEq, 50 ml, Route: IVP, Drug Form: INJ, Dosing Weight 102.841, kg, ONCE, STAT , Start date: 01/06/17 7:25:00 CDT, Stop date: 01/06/17 7:25:00 CDT Notes: (sodium bicarb 8.4% (1 mEq/ml) 50 ml syringe) Start Date: 01/06/17 Stop Date: 01/06/17 Status: Completed Sodium Chloride 0.9% (Bolus) IV 1,000 mL, Infuse Over: 1 hr, Route: IV, ONCE, Priority: STAT, Dosing Weight 110 kg, Start date: 01/03/17 16:29:00 CDT, Duration: 1 doses or times, Stop date: 16:29:00 CDT Start Date: 01/03/17 Stop Date: 01/03/17 Status: Completed sodium chloride 0.9% 1000 ml INJ 1,000 mL 1,000 mL, Rate: 50 ml/hr, Infuse over: 20 hr, Route: IV, Dosing Weight 102.841 k g, Total Volume: 1,000, Start date: 01/03/17 22:57:00 CDT, Stop date: 02/02/17 2 2:56:00 CDT Start Date: 01/03/17 Stop Date: 01/10/17 Status: Discontinued Sodium Chloride 0.9% IV (Sodium Chloride 0.9% (Bolus) IV) 500 mL, 2,000 ml/hr, Infuse Over: 15 minutes, Route: IV, 500, Drug form: INJ, ON CE, Priority: STAT, Dosing Weight 112.273 kg, Start date: 01/03/17 16:08:00 CDT, Duration: 1 doses or times, Stop date: 01/03/17 16:08:00 CDT Start Date: 01/03/17 Stop Date: 01/03/17 Status: Completed Sodium Chloride 0.9% IV 1000 mL 1,000 mL, Rate: 75 ml/hr, Infuse over: 13.3 hr, Route: IV, Dosing Weight 102.841 kg, Total Volume: 1,000, Start date: 01/10/17 17:30:00 CDT, Duration: 30 day, S top date: 02/09/17 17:29:00 CDT Start Date: 01/10/17 Stop Date: 01/10/17 Status: Discontinued Tylenol with Codeine #3 oral tablet 1 tab, PO, Q4H, PRN Pain, X 7 day, # 42 tab, 0 Refill(s) Start Date: 01/10/17 Stop Date: 01/17/17 Status: Ordered Zofran 4 mg, 2 mL, Route: IV, Drug form: INJ, ONCE, Dosing Weight 102.841, kg, Start da te: 01/03/17 22:24:00 CDT, Stop date: 01/03/17 22:24:00 CDT Notes: (Same as: Zofran) MEDICATION WASTE Product Size: 4 mgProduct Was savana: ___ mg Start Date: 01/03/17 Stop Date: 01/03/17 Status: Completed Zofran 4 mg, 2 mL, Route: IV, Drug form: INJ, Q6H, Dosing Weight 102.841, kg, PRN as ne eded for nausea/vomiting, Start date: 01/05/17 1:07:00 CDT, Duration: 30 day, St op date: 02/04/17 1:06:00 CDT Notes: (Same as: Zofran) MEDICATION WASTE Product Size: 4 mgProduct Was savana: ___ mg Start Date: 01/05/17 Stop Date: 01/10/17 Status: Discontinued Zyvox 600 mg, 1 tab, Route: PO, Drug form: TAB, [id number], Start date: 01/06/17 17:00:00 CDT, Duration: 14 day, Stop date: 01/20/17 5:00:00 CDT, ABX Indication: Urinary Tract Infection Notes: Protect from light. (Same as: Zyvox) Start Date: 01/06/17 Stop Date: 01/09/17 Status: Discontinued Results ELECTROLYTES 1 2 3 Most recent to oldest [Reference Range]: 140 mEq/L (01/10/17 4:30 AM) 141 mEq/L (01/09/17 4:57 AM) 138 mEq/L (01/08/17 4:33 AM) Sodium Lvl [135-145 mEq/L] 4.9 mEq/L (01/10/17 4:30 AM) 4.8 mEq/L (01/09/17 4:57 AM) 5.0 mEq/L (01/08/17 4:33 AM) Potassium Lvl [3.5-5.1 mEq/L] 110 mEq/L *HI* (01/10/17 4:30 AM) 110 mEq/L *HI* (01/09/17 4:57 AM) 110 mEq/L *HI* (01/08/17 4:33 AM) Chloride Lvl [95-109 mEq/L] 20 mEq/L *LOW* (01/10/17 4:30 AM) 19 mEq/L *LOW* (01/09/17 4:57 AM) 21 mEq/L *LOW* (01/08/17 4:33 AM) CO2 [24-32 mEq/L] 14.9 mEq/L (01/10/17 4:30 AM) 16.8 mEq/L (01/09/17 4:57 AM) 12.0 mEq/L (01/08/17 4:33 AM) AGAP [10.0-20.0 mEq/L] CHEM PANEL 1 2 3 Most recent to oldest [Reference Range]: 4.74 mg/dL *HI* (01/10/17 4:30 AM) 4.58 mg/dL *HI* (01/09/17 4:57 AM) 4.48 mg/dL *HI* (01/08/17 4:33 AM) Creatinine Lvl [0.50-1.40 mg/dL] 12 mL/min/1.73m2 1 *NA* (01/10/17 4:30 AM) 13 mL/min/1.73m2 2 *NA* (01/09/17 4:57 AM) 13 mL/min/1.73m2 3 *NA* (01/08/17 4:33 AM) eGFR 32 mg/dL *HI* (01/10/17 4:30 AM) 32 mg/dL *HI* (01/09/17 4:57 AM) 32 mg/dL *HI* (01/08/17 4:33 AM) BUN [7-22 mg/dL] 10 (01/04/17 4:53 AM) 10 (01/03/17 4:33 PM) B/C Ratio [6-25] 136 mg/dL *HI* (01/10/17 4:30 AM) 107 mg/dL *HI* (01/09/17 4:57 AM) 92 mg/dL (01/08/17 4:33 AM) Glucose Lvl [70-99 mg/dL] 5.4 g/dL *LOW* (01/04/17 4:53 AM) 6.2 g/dL *LOW* (01/03/17 4:33 PM) Total Protein [6.4-8.4 g/dL] 1.6 g/dL *LOW* (01/04/17 4:53 AM) 1.8 g/dL *LOW* (01/03/17 4:33 PM) Albumin Lvl [3.5-5.0 g/dL] 3.8 g/dL (01/04/17 4:53 AM) 4.4 g/dL *HI* (01/03/17 4:33 PM) Globulin [2.7-4.2 g/dL] 0.4 *LOW* (01/04/17 4:53 AM) 0.4 *LOW* (01/03/17 4:33 PM) A/G Ratio [0.7-1.6] 7.7 mg/dL *LOW* (01/10/17 4:30 AM) 7.4 mg/dL *LOW* (01/09/17 4:57 AM) 7.7 mg/dL *LOW* (01/08/17 4:33 AM) Calcium Lvl [8.5-10.5 mg/dL] 4.5 mg/dL (01/03/17 4:33 PM) Phosphorus [2.5-4.5 mg/dL] 1.9 mg/dL (01/04/17 4:53 AM) 2.0 mg/dL (01/03/17 4:33 PM) Magnesium Lvl [1.8-2.4 mg/dL] 9 unit/L (01/04/17 4:53 AM) 9 unit/L (01/03/17 4:33 PM) ALT [0-65 unit/L] 7 unit/L (01/04/17 4:53 AM) 6 unit/L (01/03/17 4:33 PM) AST [0-37 unit/L] 71 unit/L (01/04/17 4:53 AM) 82 unit/L (01/03/17 4:33 PM) Alk Phos [39-136 unit/L] 0.2 mg/dL (01/04/17 4:53 AM) 0.2 mg/dL (01/03/17 4:33 PM) Bili Total [0.2-1.3 mg/dL] 202 unit/L (01/03/17 4:33 PM) Lipase Lvl [73-393 unit/L] 0.06 mmol/L (01/03/17 4:33 PM) Ketone Quantitative [<=0.27 mmol/L] 1.0 mMol/L (01/03/17 4:33 PM) Lactic Acid Lvl [0.5-2.2 mMol/L] 1Result [...] 3 Most recent to oldest [Reference Range]: 34.00 mg/dL *NA* (01/06/17 2:48 PM) U Creatinine 456.0 mg/dL *NA* (01/06/17 2:48 PM) U Protein 13.4 *NA* (01/06/17 2:48 PM) U Prot/Creat 0-2 *ABN* (01/08/17 7:18 PM) U Eos [None Seen] URINE AND STOOL 1 2 3 Most recent to oldest [Reference Range]: Cloudy *ABN* (01/06/17 2:48 PM) Clear (01/03/17 4:46 PM) UA Turbidity [Clear] Yellow *NA* (01/06/17 2:48 PM) Yellow *NA* (01/03/17 4:46 PM) UA Color [Yellow] 6.5 (01/06/17 2:48 PM) 5.5 (01/03/17 4:46 PM) UA pH [5.0-8.0] 1.015 (01/06/17 2:48 PM) 1.020 (01/03/17 4:46 PM) UA Spec Grav [<=1.030] Negative (01/06/17 2:48 PM) Negative (01/03/17 4:46 PM) UA Glucose [Negative] Moderate *ABN* (01/06/17 2:48 PM) Large *ABN* (01/03/17 4:46 PM) UA Blood [Negative] Negative *NA* (01/06/17 2:48 PM) Negative *NA* (01/03/17 4:46 PM) UA Ketones [Negative] >=300 mg/dL *ABN* (01/06/17 2:48 PM) UA Protein [Negative mg/dL] Negative (01/03/17 4:46 PM) UA Protein [Negative] 0.2 EU/dL (01/06/17 2:48 PM) 0.2 EU/dL (01/03/17 4:46 PM) UA Urobilinogen [0.1-1.0 EU/dL] Negative *NA* (01/06/17 2:48 PM) Negative *NA* (01/03/17 4:46 PM) UA Bili [Negative] Large *ABN* (01/06/17 2:48 PM) Negative (01/03/17 4:46 PM) UA Leuk Est [Negative] Negative (01/06/17 2:48 PM) Negative (01/03/17 4:46 PM) UA Nitrite [Negative] >100 /HPF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
--- OUTSIDE RECORDS SUMMARY | 2019-09-10 20:11 | XMS REPORT | Summary of Care ---
Author Author [facility] Organization [facility] Address Unknown Phone Unavailable Encounter PRIMITIVO Mariano(SANGITA) [id number] Date(s): 06/23/18 - 06/23/18 [facility] [address] [place] [address]- Discharge Disposition: Left Against Medical Advise Attending Physician: Zelalem Gomez MD Vital Signs Most recent to 1 2 oldest [Reference Range]: Height 170.18 cm (06/23/18 2:35 PM) Temperature Oral 100.2 DegF [96.4-99.1 DegF] *HI* (06/23/18 2:35 PM) Blood Pressure 196/96 mmHg 161/92 mmHg [90-140/60-90 mmHg] *HI* *HI* (06/23/18 3:34 PM) (06/23/18 2:35 PM) Respiratory Rate 24 BRMIN 25 BRMIN [14-20 BRMIN] *HI* *HI* (06/23/18 3:34 PM) (06/23/18 2:35 PM) Peripheral Pulse 94 bpm 96 bpm Rate [60-100 bpm] (06/23/18 3:34 PM) (06/23/18 2:35 PM) Weight 113.636 kg (06/23/18 2:35 PM) Body Mass Index 39.24 m2 (06/23/18 2:35 PM) Problem List Condition Effective Dates Status Health [...] Adverse Reactions, Alerts Substance Reaction Severity Status Tylenol Active Dayhoit Active traMADol Active Medications Motrin 400 mg, 1 tab, Route: PO, Drug form: TAB, ONCE, Dosing Weight 113.636, kg, Prior ity: STAT, Start date: 06/23/18 15:52:00 [employer], Stop date: 06/23/18 15:52:00 [employer] Notes: (Same as: Motrin)"Do Not Crush" Give with food. Start Date: 06/23/18 Stop Date: 06/23/18 Status: Ordered Tylenol 650 mg, Route: PO, Drug form: TAB, ONCE, Dosing Weight 113.636, kg, Priority: ST AT, Start date: 06/23/18 15:41:00 [employer], Stop date: 06/23/18 15:41:00 [employer] Start Date: 06/23/18 Stop Date: 06/23/18 Status: Discontinued Results ELECTROLYTES Most recent to 1 oldest [Reference Range]: Sodium Lvl [135-145 134 mEq/L mEq/L] *LOW* (06/23/18 3:19 PM) Potassium Lvl 4.6 mEq/L [3.5-5.1 mEq/L] (06/23/18 3:19 PM) Chloride Lvl [95-109 105 mEq/L mEq/L] (06/23/18 3:19 PM) CO2 [24-32 mEq/L] 20 mEq/L *LOW* (06/23/18 3:19 PM) AGAP [10.0-20.0 13.6 mEq/L mEq/L] (06/23/18 3:19 PM) CHEM PANEL Most recent to 1 oldest [Reference Range]: Creatinine Lvl 11.30 mg/dL [0.50-1.40 mg/dL] *HI* (06/23/18 3:19 PM) eGFR 4 mL/min/1.73m2 1 *NA* (06/23/18 3: PM) BUN [7-22 mg/dL] 55 mg/dL *HI* (06/23/18 3:19 PM) Glucose Lvl [70-99 138 mg/dL mg/dL] *HI* (06/23/18 3:19 PM) Calcium Lvl 7.6 mg/dL [8.5-10.5 mg/dL] *LOW* (06/23/18 3:19 PM) Procalcitonin Lvl 0.57 ng/mL [0.00-0.10 ng/mL] *HI* (06/23/18 3:23 PM) 1Result Comment: The eGFR is calculated [...] BMI. CARDIAC ENZYMES Most recent to 1 oldest [Reference Range]: Troponin-I <0.02 ng/mL [0.00-0.40 ng/mL] (06/23/18 3:19 PM) Immunizations Given and Recorded Vaccine Date [...] on: 06/17/18 1pt denies current alcohol use Assessment and Plan No data available for this section
--- OUTSIDE RECORDS SUMMARY | 2019-09-10 20:11 | XMS REPORT | Summary of Care ---
Author Author [facility] spital Organization [facility] [place] Address Unknown Phone Unavailable Encounter PRIMITIVO Mariano(SANGITA) [id number] Date(s): 01/13/17 - 01/19/17 [facility] [id number] [place] [id number] [phone] Discharge Disposition: Home or Self Care Attending Physician: Nolan Reynoso MD Admitting Physician: Nolan Reynoso MD Vital Signs 1 2 3 Most recent to oldest [Reference Range]: 170.18 cm (01/14/17 6:05 AM) Height 98.9 DegF (01/19/17 12:25 PM) 98.5 DegF (01/19/17 3:18 AM) 98.6 DegF (01/19/17 2:25 AM) Temperature Oral [96.4-99.1 DegF] 136/85 mmHg (01/19/17 12:25 PM) 160/80 mmHg *HI* (01/19/17 7:55 AM) 116/70 mmHg (01/19/17 3:18 AM) Blood Pressure [90-140/60-90 mmHg] 20 BRMIN (01/19/17 12:25 PM) 20 BRMIN (01/19/17 7:55 AM) 18 BRMIN (01/19/17 3:18 AM) Respiratory Rate [14-20 BRMIN] 90 bpm (01/19/17 12:25 PM) 103 bpm *HI* (01/19/17 7:55 AM) 92 bpm (01/19/17 3:18 AM) Peripheral Pulse Rate [60-100 bpm] 117.591 kg (01/14/17 6:05 AM) 105.455 kg (01/13/17 10:50 PM) Weight 40.6 m2 (01/14/17 6:05 AM) Body Mass Index Problem List Condition [...] Status NKDA Active Medications carvedilol 25 mg, 2 tab, Route: PO, Drug form: TAB, Q12H, Dosing Weight 105.455, kg, Start date: 01/14/17 9:00:00 CDT, Duration: 30 day, Stop date: 02/12/17 21:00:00 CDT Notes: Give with food. (Same As: Coreg) Start Date: 01/14/17 Stop Date: 01/19/17 Status: Discontinued d50 syringe 25 gm, 50 mL, Route: IV, Drug Form: INJ, Dosing Weight 117.591, kg, ONCE, Start date: 01/17/17 6:55:00 CDT, Stop date: 01/17/17 6:55:00 CDT Start Date: 01/17/17 Stop Date: 01/17/17 Status: Completed Dextrose 50% Syringe 25 gm, 50 mL, Route: IVP, Drug Form: INJ, Dosing Weight 105.455, kg, PRN, PRN Bl ood Glucose Results, Start date: 01/14/17 4:46:00 CDT, Duration: 30 day, Stop da te: 02/13/17 4:45:00 CDT Start Date: 01/14/17 Stop Date: 01/19/17 Status: Discontinued Dextrose 50% Syringe 12.5 gm, 25 mL, Route: IVP, Drug Form: INJ, Dosing Weight 105.455, kg, PRN, PRN Blood Glucose Results, Start date: 01/14/17 4:46:00 CDT, Duration: 30 day, Stop date: 02/13/17 4:45:00 CDT Start Date: 01/14/17 Stop Date: 01/19/17 Status: Discontinued Dilaudid 0.8 mg, 0.8 mL, Route: IVP, Drug form: INJ, Q4H, Dosing Weight 117.591, kg, PRN Pain Score 7-10, Start date: 01/15/17 12:55:00 CDT, Duration: 30 day, Stop date: 02/14/17 12:54:00 CDT Notes: Same as: Dilaudid Start Date: 01/15/17 Stop Date: 01/16/17 Status: Discontinued Dilaudid 0.5 mg, 0.5 mL, Route: IVP, Drug form: INJ, Q4H, Dosing Weight 117.591, kg, PRN Pain Score 7-10, Start date: 01/14/17 11:04:00 CDT, Duration: 30 day, Stop date: 02/13/17 11:03:00 CDT Notes: Same as: Dilaudid Start Date: 01/14/17 Stop Date: 01/15/17 Status: Discontinued epoetin mira 2,000 unit, 1 mL, Route: SUB-Q, Drug form: INJ, Q-M-W-F, Start date: 01/18/17 17 :00:00 CDT, Duration: 30 day, Stop date: 02/15/17 17:00:00 CDT Notes: (Same as: Procrit) epoetin mira 2000 unit/1 ml VLFor dialysis use only (E pogen)WASTE: F/P - Red; E -Red MEDICATION WASTE Product Size: 2000 mgPr oduct Wasted: ___ mg Start Date: 01/18/17 Stop Date: 01/19/17 Status: Discontinued ferrous sulfate 325 mg, 1 tab, Route: PO, Drug form: ECTAB, Daily, Dosing Weight 117.591, kg, St art date: 01/20/17 9:00:00 CDT, Duration: 30 day, Stop date: 02/18/17 9:00:00 CD T Notes: Give with food. "Do Not Crush" Start Date: 01/20/17 Stop Date: 01/19/17 Status: Canceled glucagon 1 mg, Route: IM, Drug form: PDR/INJ, PRN, Dosing Weight 105.455, kg, PRN Blood G lucose Results, Start date: 01/14/17 4:46:00 CDT, Duration: 30 day, Stop date: 1 4:45:00 CDT Start Date: 01/14/17 Stop Date: 01/19/17 Status: Discontinued hydrALAZINE 25 mg oral tablet 75 mg, 3 tab, Route: PO, Drug form: TAB, TID, Dosing Weight 105.455, kg, Start d ate: 01/14/17 9:00:00 CDT, Duration: 30 day, Stop date: 02/12/17 17:00:00 CDT Notes: (Same as: Apresoline) May interfere w/enteral feedings Take With Food. Start Date: 01/14/17 Stop Date: 01/19/17 Status: Discontinued insulin aspart 10 unit, 0.1 mL, Route: SUB-Q, Drug form: SOLN, ONCE, Dosing Weight 117.591, kg, Start date: 01/17/17 6:55:00 CDT, Stop date: 01/17/17 6:55:00 CDT Notes: Non-Formulary Drug(Same as: NovoLOG)Roll in palms of hands gently; Do no t shake vigorously. "single patient use only"WASTE: F/P - Black; E - Municipal T rash Bin Stable for 28 days at room temperature.Expires in days from ____ Date Start Date: 01/17/17 Stop Date: 01/17/17 Status: Completed insulin lispro 4 unit, 0.04 mL, Route: SUB-Q, Drug form: SOLN, TID-Before Meals, Dosing Weight 105.455, kg, PRN Blood Glucose Results, Start date: 01/14/17 4:46:00 CDT, Durati on: 30 day, Stop date: 02/13/17 4:45:00 CDT Notes: Roll in palms of hands gently; Do not shake `vigorously. (Same as: Matilde og )"Single Patient Use Only "WASTE: F/P - Black; E - Municipal Trash Bin Stabl e for 28 days at room temperature.Expires in days from Date Start Date: 01/14/17 Stop Date: 01/19/17 Status: Discontinued insulin lispro 10 unit, 0.1 mL, Route: SUB-Q, Drug form: SOLN, TID-Before Meals, Dosing Weight 105.455, kg, PRN Blood Glucose Results, Start date: 01/14/17 4:46:00 CDT, Durati on: 30 day, Stop date: 02/13/17 4:45:00 CDT Notes: Roll in palms of hands gently; Do not shake `vigorously. (Same as: Humal og )"Single Patient Use Only "WASTE: F/P - Black; E - Municipal Trash Bin Stabl e for 28 days at room temperature.Expires in days from Date Start Date: 01/14/17 Stop Date: 01/19/17 Status: Discontinued insulin lispro 6 unit, 0.06 mL, Route: SUB-Q, Drug form: SOLN, TID-Before Meals, Dosing Weight 105.455, kg, PRN Blood Glucose Results, Start date: 01/14/17 4:46:00 CDT, Durati on: 30 day, Stop date: 02/13/17 4:45:00 CDT Notes: Roll in palms of hands gently; Do not shake `vigorously. (Same as: Humal og )"Single Patient Use Only "WASTE: F/P - Black; E - Municipal Trash Bin Stabl e for 28 days at room temperature.Expires in days from Date Start Date: 01/14/17 Stop Date: 01/19/17 Status: Discontinued insulin lispro 8 unit, 0.08 mL, Route: SUB-Q, Drug form: SOLN, TID-Before Meals, Dosing Weight 105.455, kg, PRN Blood Glucose Results, Start date: 01/14/17 4:46:00 CDT, Durati on: 30 day, Stop date: 02/13/17 4:45:00 CDT Notes: Roll in palms of hands gently; Do not shake `vigorously. (Same as: Humal og )"Single Patient Use Only "WASTE: F/P - Black; E - Municipal Trash Bin Stabl e for 28 days at room temperature.Expires in days from Date Start Date: 01/14/17 Stop Date: 01/19/17 Status: Discontinued insulin lispro 2 unit, 0.02 mL, Route: SUB-Q, Drug form: SOLN, TID-Before Meals, Dosing Weight 105.455, kg, PRN Blood Glucose Results, Start date: 01/14/17 4:46:00 CDT, Durati on: 30 day, Stop date: 02/13/17 4:45:00 CDT Notes: Roll in palms of hands gently; Do not shake `vigorously. (Same as: Humal og )"Single Patient Use Only "WASTE: F/P - Black; E - Municipal Trash Bin Stabl e for 28 days at room temperature.Expires in days from Date Start Date: 01/14/17 Stop Date: 01/19/17 Status: Discontinued INVanz 1 g injection 1 gm, IV, Q24H, X 7 day, # 7 ea, 0 Refill(s), Pharmacy: [facility] [id number] Start Date: 01/19/17 Stop Date: 01/26/17 Status: Ordered Kayexalate 30 gm, 120 mL, Route: PO, Drug form: SUSP, ONCE, Dosing Weight 117.591, kg, Star t date: 01/17/17 9:24:00 CDT, Stop date: 01/17/17 9:24:00 CDT Notes: (sodium polystyrene sulfonate 15 gm/60 ml LUCÍA) Shake well before use. (Same as: Neemaxalate, SPS) Start Date: 01/17/17 Stop Date: 01/17/17 Status: Completed Kayexalate 30 gm, 120 mL, Route: MN, Drug form: ZEESHAN, ONCE, Dosing Weight 117.591, kg, Star t date: 01/15/17 19:02:00 CDT, Stop date: 01/15/17 19:02:00 CDT Notes: (sodium polystyrene sulfonate 30 gm/120 ml ZEESHAN) (Same as: Kayexalate, SP S) Shake well before use. Start Date: 01/15/17 Stop Date: 01/16/17 Status: Completed Kayexalate 30 gm, 120 mL, Route: PO, Drug form: SUSP, ONCE, Dosing Weight 117.591, kg, Star t date: 01/16/17 8:04:00 CDT, Stop date: 01/16/17 8:04:00 CDT Notes: (sodium polystyrene sulfonate 15 gm/60 ml LUCÍA) Shake well before use. (Same as: Kayexalate, SPS) Start Date: 01/16/17 Stop Date: 01/16/17 Status: Completed meropenem + sodium chloride 0.9% 100 ml ADV 100 mL 500 mg, Route: IVPB, Drug form: PDR/INJ, [id number], Dosing Weight 105.455, kg, CrC L= 10 -25 ml/min, Extended infusion, infuse over 3 hours, Start date: 01/14/17 5:00:00 CDT, Duration: 3 day, Stop date: 01/16/17 17:00:00 CDT, ABX Indication: Urinary Tra... Notes: Same as Merrem MEDICATION WASTE Product Size: 500 mgProduct Wast ed: ___ mg Start Date: 01/14/17 Stop Date: 01/15/17 Status: Voided With Results meropenem + sodium chloride 0.9% INJ 100 mL 500 mg, Route: IVPB, [id number], Dosing Weight 117.591, kg, CrCL= 10 -25 ml/min, E xtended infusion, infuse over 3 hours, Start date: 01/18/17 16:00:00 CDT, Durati on: 7 day, Stop date: 01/25/17 4:00:00 CDT, ABX Indication: Genital Tract Infect ion Notes: Same as Merrem MEDICATION WASTE Product Size: 500 mgProduct Wast ed: ___ mg Start Date: 01/18/17 Stop Date: 01/19/17 Status: Discontinued meropenem + sodium chloride 0.9% INJ 100 mL 500 mg, Route: IVPB, [id number], Dosing Weight 105.455, kg, CrCL= 10 -25 ml/min, E xtended infusion, infuse over 3 hours, Start date: 01/15/17 17:00:00 CDT, Durati on: 3 day, Stop date: 01/18/17 5:00:00 CDT, ABX Indication: Urinary Tract Infect ion Notes: Same as Merrem MEDICATION WASTE Product Size: 500 mgProduct Wast ed: ___ mg Start Date: 01/15/17 Stop Date: 01/18/17 Status: Pending Complete minoxidil 2.5 mg, 1 tab, Route: PO, Drug form: TAB, Q12H, Dosing Weight 105.455, kg, Start date: 01/14/17 9:00:00 CDT, Duration: 30 day, Stop date: 02/12/17 21:00:00 CDT Notes: (Same as:Sommer) Start Date: 01/14/17 Stop Date: 01/19/17 Status: Discontinued morphine Sulfate 4 mg, 1 mL, Route: IVP, Drug form: INJ, Q3H, Dosing Weight 105.455, kg, PRN Pain Score 7-10, Start date: 01/14/17 4:48:00 CDT, Duration: 30 day, Stop date: 01/23 07/08 4:47:00 CDT Notes: (Same as:MORPhine Sulfate) Start Date: 01/14/17 Stop Date: 01/14/17 Status: Discontinued morphine Sulfate 3 mg, 0.75 mL, Route: IVP, Drug form: INJ, Q4H, Dosing Weight 117.591, kg, PRN P ain Score 7-10, Start date: 01/16/17 12:11:00 CDT, Duration: 30 day, Stop date: 02/15/17 12:10:00 CDT Notes: (Same as:MORPhine Sulfate) Start Date: 01/16/17 Stop Date: 01/19/17 Status: Discontinued morphine Sulfate 4 mg, 1 mL, Route: IVP, Drug form: INJ, ONCE, Dosing Weight 105.455, kg, Priorit y: STAT, Start date: 01/14/17 2:21:00 CDT, Stop date: 01/14/17 2:21:00 CDT Notes: (Same as:MORPhine Sulfate) Start Date: 01/14/17 Stop Date: 01/14/17 Status: Completed NIFEdipine 90 mg oral tablet, extended release 90 mg, 1 tab, Route: PO, Drug form: ERTAB, TID, Dosing Weight 105.455, kg, Start date: 01/14/17 4:56:00 CDT, Duration: 30 day, Stop date: 02/12/17 17:00:00 CDT Notes: (Same as: Adalat CC,Procardia XL)"Do Not Crush" "Avoid grapefruit and gr apefruit juice" Start Date: 01/14/17 Stop Date: 01/14/17 Status: Discontinued Procardia XL 90 mg, 1 tab, Route: PO, Drug form: ERTAB, Daily, Dosing Weight 105.455, kg, Sta rt date: 01/14/17 6:21:00 CDT, Duration: 30 day, Stop date: 02/12/17 9:00:00 CDT Notes: (Same as: Adalat CC,Procardia XL)"Do Not Crush" "Avoid grapefruit and gr apefruit juice" Start Date: 01/14/17 Stop Date: 01/19/17 Status: Discontinued Procrit 3,000 unit, 1 mL, Route: SUB-Q, Drug form: INJ, Q-M-W-F, Dosing Weight 117.591, kg, Start date: 01/18/17 17:00:00 CDT, Duration: 30 day, Stop date: 02/15/17 17: 00:00 CDT Notes: (Same as: Procrit) epoetin mira 3000 unit/1 ml VL.For dialysis use onlyWA INGA: F/P - Red; E -Red MEDICATION WASTE Product Size: 3000 unitProduct Wasted: ___ unit Start Date: 01/18/17 Stop Date: 01/19/17 Status: Discontinued Pyridium 100 mg, Route: PO, Drug form: TAB, TID-After Meals, Dosing Weight 117.591, kg, S tart date: 01/15/17 17:30:00 CDT, Duration: 2 day, Stop date: 01/17/17 12:30:00 CDT Start Date: 01/15/17 Stop Date: 01/15/17 Status: Canceled Reglan 5 mg, 1 mL, Route: IVP, Drug form: INJ, Q6H, Dosing Weight 117.591, kg, PRN Naus ea & Vomiting, Start date: 01/18/17 9:00:00 CDT, Duration: 30 day, Stop date: 02/17/17 8:59:00 CDT Notes: (Same as: Reglan) Start Date: 01/18/17 Stop Date: 01/19/17 Status: Discontinued Reglan 5 mg oral tablet 5 mg, 1 tab, Route: PO, Drug form: TAB, TID-Before Meals, Dosing Weight 105.455, kg, Start date: 01/14/17 7:30:00 CDT, Duration: 30 day, Stop date: 02/12/17 16: 30:00 CDT Notes: (Same as: Reglan) Take 30 min before meals Start Date: 01/14/17 Stop Date: 01/19/17 Status: Discontinued sodium bicarbonate 50 mEq, 50 mL, Route: IV, Drug form: INJ, ONCE, Dosing Weight 117.591, kg, Start date: 01/17/17 6:58:00 CDT, Stop date: 01/17/17 6:58:00 CDT Notes: (sodium bicarb 8.4% (1 mEq/ml) 50 ml syringe) Start Date: 01/17/17 Stop Date: 01/17/17 Status: Completed sodium chloride 0.9% 1000 ml INJ 1,000 mL 1,000 mL, Rate: 75 ml/hr, Infuse over: 13.3 hr, Route: IV, Dosing Weight 117.591 kg, Total Volume: 1,000, Start date: 01/18/17 11:16:00 CDT, Duration: 3 doses or times, Stop date: 01/20/17 3:09:00 CDT Start Date: 01/18/17 Stop Date: 01/19/17 Status: Discontinued sodium polystyrene sulfonate 30 gm, 120 mL, Route: PO, Drug form: SUSP, ONCE, Dosing Weight 117.591, kg, Star t date: 01/15/17 10:05:00 CDT, Duration: 1 doses or times, Stop date: 01/15/17 1 0:05:00 CDT Notes: (sodium polystyrene sulfonate 15 gm/60 ml LUCÍA) Shake well before use. (Same as: Kayexalate, SPS) Start Date: 01/15/17 Stop Date: 01/15/17 Status: Completed Zofran 4 mg, 2 mL, Route: IVP, Drug form: INJ, ONCE, Dosing Weight 105.455, kg, Priorit y: STAT, Start date: 01/14/17 2:21:00 CDT, Stop date: 01/14/17 2:21:00 CDT Notes: (Same as: Zofran) MEDICATION WASTE Product Size: 4 mgProduct Was savana: ___ mg Start Date: 01/14/17 Stop Date: 01/14/17 Status: Completed Results BLOOD BANK RESULTS 1 2 3 Most recent to oldest [Reference Range]: A POS *Unknown* (01/17/17 9:33 AM) ABO/Rh Negative (01/17/17 9:33 AM) Antibody Scrn Product available 1 (01/18/17 6:41 AM) RBC product 1Result Comment: 01/18/2017 07:17 [id number] Notified Belén that blood is ready DEION ELECTROLYTES 1 2 3 Most recent to oldest [Reference Range]: 138 mEq/L (01/19/17 4:33 AM) 139 mEq/L (01/18/17 5:35 AM) 139 mEq/L (01/17/17 1:24 PM) Sodium Lvl [135-145 mEq/L] 4.7 mEq/L (01/19/17 4:33 AM) 4.5 mEq/L (01/18/17 5:35 AM) 5.2 mEq/L *HI* (01/17/17 1:24 PM) Potassium Lvl [3.5-5.1 mEq/L] 110 mEq/L *HI* (01/19/17 4:33 AM) 110 mEq/L *HI* (01/18/17 5:35 AM) 113 mEq/L *HI* (01/17/17 1:24 PM) Chloride Lvl [95-109 mEq/L] 20 mEq/L *LOW* (01/19/17 4:33 AM) 20 mEq/L *LOW* (01/18/17 5:35 AM) 19 mEq/L *LOW* (01/17/17 1:24 PM) CO2 [24-32 mEq/L] 12.7 mEq/L (01/19/17 4:33 AM) 13.5 mEq/L (01/18/17 5:35 AM) 12.2 mEq/L (01/17/17 1:24 PM) AGAP [10.0-20.0 mEq/L] CHEM PANEL 1 2 3 Most recent to oldest [Reference Range]: 4.60 mg/dL *HI* (01/19/17 4:33 AM) 4.64 mg/dL *HI* (01/18/17 5:35 AM) 4.58 mg/dL *HI* (01/17/17 1:24 PM) Creatinine Lvl [0.50-1.40 mg/dL] 13 mL/min/1.73m2 1 *NA* (01/19/17 4:33 AM) 12 mL/min/1.73m2 2 *NA* (01/18/17 5:35 AM) 13 mL/min/1.73m2 3 *NA* (01/17/17 1:24 PM) eGFR 40 mg/dL *HI* (01/19/17 4:33 AM) 40 mg/dL *HI* (01/18/17 5:35 AM) 43 mg/dL *HI* (01/17/17 1:24 PM) BUN [7-22 mg/dL] 9 (01/14/17 2:14 AM) B/C Ratio [6-25] 83 mg/dL (01/19/17 4:33 AM) 101 mg/dL *HI* (01/18/17 5:35 AM) 95 mg/dL (01/17/17 1:24 PM) Glucose Lvl [70-99 mg/dL] 6.7 g/dL (01/14/17 2:14 AM) Total Protein [6.4-8.4 g/dL] 2.1 g/dL *LOW* (01/14/17 2:14 AM) Albumin Lvl [3.5-5.0 g/dL] 4.6 g/dL *HI* (01/14/17 2:14 AM) Globulin [2.7-4.2 g/dL] 0.5 *LOW* (01/14/17 2:14 AM) A/G Ratio [0.7-1.6] 7.2 mg/dL *LOW* (01/19/17 4:33 AM) 7.3 mg/dL *LOW* (01/18/17 5:35 AM) 7.5 mg/dL *LOW* (01/17/17 1:24 PM) Calcium Lvl [8.5-10.5 mg/dL] 12 unit/L (01/14/17 2:14 AM) ALT [0-65 unit/L] 19 unit/L (01/14/17 2:14 AM) AST [0-37 unit/L] 78 unit/L (01/14/17 2:14 AM) Alk Phos [39-136 unit/L] 0.1 mg/dL *LOW* (01/14/17 2:14 AM) Bili Total [0.2-1.3 mg/dL] 0.3 mMol/L *LOW* (01/14/17 5:11 AM) Lactic Acid Lvl [0.5-2.2 mMol/L] 1Result [...] be mul tiplied by the estimated BMI. ANEMIA STUDY 1 2 3 Most recent to oldest [Reference Range]: 36 ug/dl (01/18/17 5:35 AM) Iron [30-160 ug/dl] 112 ng/mL (01/18/17 5:35 AM) Ferritin Lvl [5-204 ng/mL] 33 % (01/18/17 5:35 AM) % Satur Fe [12-57 %] 73 ug/dl *LOW* (01/18/17 5:35 AM) UIBC [110-370 ug/dl] 109 ug/dl *LOW* (01/18/17 5:35 AM) TIBC [228-428 ug/dl] 94 mg/dL *LOW* (01/18/17 5:35 AM) Transferrin [212-360 mg/dL] URINE AND STOOL 1 2 3 Most recent to oldest [Reference Range]: Clear (01/14/17 2:58 AM) UA Turbidity [Clear] Yellow *NA* (01/14/17 2:58 AM) UA Color [Yellow] 6.0 (01/14/17 2:58 AM) UA pH [5.0-8.0] 1.020 (01/14/17 2:58 AM) UA Spec Grav [<=1.030] Negative (01/14/17 2:58 AM) UA Glucose [Negative] Small *ABN* (01/14/17 2:58 AM) UA Blood [Negative] Negative *NA* (01/14/17 2:58 AM) UA Ketones [Negative] >=300 mg/dL *ABN* (01/14/17 2:58 AM) UA Protein [Negative mg/dL] 0.2 EU/dL (01/14/17 2:58 AM) UA Urobilinogen [0.1-1.0 EU/dL] Negative *NA* (01/14/17 2:58 AM) UA Bili [Negative] Trace *ABN* (01/14/17 2:58 AM) UA Leuk Est [Negative] Negative (01/14/17 2:58 AM) UA Nitrite [Negative] 11-20 /HPF *ABN* (01/14/17 2:58 AM) UA WBC [None Seen /HPF] 3-5 /HPF *ABN* (01/14/17 2:58 AM) UA RBC [0-2 /HPF] Moderate /HPF (01/14/17 2:58 AM) UA Bacteria [None Seen /HPF] Moderate /LPF *ABN* (01/14/17 2:58 AM) UA Sq Epi [Few /LPF] Few /HPF *ABN* (01/14/17 2:58 AM) UA Butler Yeast [None Seen /HPF] HEMATOLOGY 1 2 3 Most recent to oldest [Reference Range]: 6.8 K/CMM (01/19/17 4:33 AM) 7.1 K/CMM (01/18/17 5:35 AM) 8.8 K/CMM (01/17/17 3:49 AM) WBC [3.7-10.4 K/CMM] 2.44 M/CMM *LOW* (01/19/17 4:33 AM) 2.19 M/CMM *LOW* (01/18/17 5:35 AM) 2.31 M/CMM *LOW* (01/17/17 3:49 AM) RBC [4.20-5.40 M/CMM] 7.3 g/dL *LOW* (01/19/17 4:33 AM) 6.5 g/dL 1 *CRIT* (01/18/17 5:35 AM) 6.9 g/dL 2 *CRIT* (01/17/17 3:49 AM) Hgb [12.0-16.0 g/dL] 21.8 % *LOW* (01/19/17 4:33 AM) 19.5 % 3 *CRIT* (01/18/17 5:35 AM) 20.8 % *LOW* (01/17/17 3:49 AM) Hct [36.0-48.0 %] 89.4 fL (01/19/17 4:33 AM) 89.1 fL (01/18/17 5:35 AM) 89.8 fL (01/17/17 3:49 AM) MCV [80.0-98.0 fL] 29.8 pg (01/19/17 4:33 AM) 29.7 pg (01/18/17 5:35 AM) 29.8 pg (01/17/17 3:49 AM) MCH [27.0-31.0 pg] 33.3 g/dL (01/19/17 4:33 AM) 33.4 g/dL (01/18/17 5:35 AM) 33.2 g/dL (01/17/17 3:49 AM) MCHC [32.0-36.0 g/dL] 14.9 % *HI* (01/19/17 4:33 AM) 15.3 % *HI* (01/18/17 5:35 AM) 15.4 % *HI* (01/17/17 3:49 AM) RDW [11.5-14.5 %] 284 K/CMM (01/19/17 4:33 AM) 283 K/CMM (01/18/17 5:35 AM) 229 K/CMM (01/17/17 3:49 AM) Platelet [133-450 K/CMM] 8.6 fL (01/19/17 4:33 AM) 8.4 fL (01/18/17 5:35 AM) 10.0 fL (01/17/17 3:49 AM) MPV [7.4-10.4 fL] 46.8 % (01/19/17 4:33 AM) 44.9 % *LOW* (01/18/17 5:35 AM) 55.2 % (01/17/17 3:49 AM) Segs [45.0-75.0 %] 35.3 % (01/19/17 4:33 AM) 35.5 % (01/18/17 5:35 AM) 31.5 % (01/17/17 3:49 AM) Lymphocytes [20.0-40.0 %] 11.3 % (01/19/17 4:33 AM) 11.4 % (01/18/17 5:35 AM) 8.4 % (01/17/17 3:49 AM) Monocytes [2.0-12.0 %] 6.2 % *HI* (01/19/17 4:33 AM) 7.4 % *HI* (01/18/17 5:35 AM) 4.4 % *HI* (01/17/17 3:49 AM) Eosinophils [0.0-4.0 %] 0.4 % (01/19/17 4:33 AM) 0.8 % (01/18/17 5:35 AM) 0.5 % (01/17/17 3:49 AM) Basophils [0.0-1.0 %] 3.2 K/CMM (01/19/17 4:33 AM) 3.2 K/CMM (01/18/17 5:35 AM) 4.8 K/CMM (01/17/17 3:49 AM) Segs-Bands # [1.5-8.1 K/CMM] 2.4 K/CMM (01/19/17 4:33 AM) 2.5 K/CMM (01/18/17 5:35 AM) 2.8 K/CMM (01/17/17 3:49 AM) Lymphocytes # [1.0-5.5 K/CMM] 0.8 K/CMM (01/19/17 4:33 AM) 0.8 K/CMM (01/18/17 5:35 AM) 0.7 K/CMM (01/17/17 3:49 AM) Monocytes # [0.0-0.8 K/CMM] 0.4 K/CMM (01/19/17 4:33 AM) 0.5 K/CMM (01/18/17 5:35 AM) 0.4 K/CMM (01/17/17 3:49 AM) Eosinophils # [0.0-0.5 K/CMM] 0.1 K/CMM (01/18/17 5:35 AM) Basophils # [0.0-0.2 K/CMM] Normal (01/15/17 5:03 AM) RBC Morph Normal (01/15/17 5:03 AM) Plt Morph 1Result Comment: Critical Result(s) called to Aneta GILLIS at 01/18/2017 05:49 by D^2. Read back OK. 2Result Comment: Critical Result(s) called to Darien Ochoa at 01/17/2017 05:40 by sp. Read back OK. 3Result Comment: Critical Result(s) called to Aneta GILLIS at 01/18/2017 05:49 by D^2. Read back OK. Immunizations Given and Recorded [...] No Assessment and Plan Extracted from: Title: Discharge Summary * Author: Nolan Reynoso Date: 01/19/17 Discharge Information 1. ESBL pyelopnephritis [...] Orders time spent > 35 minutes. Extracted from: Title: Renal Progress Note * Author: Cassidy Rivera Date: 01/19/17 Impression and Plan 1. Acute [...] Chronic kidney disease, stage 3 (moderate) Extracted from: Title: Consult Note Author: Cassidy Rivera MD Date: 01/17/17 Assessment/Plan 1.Urinary tract infection, site not sp ecified,Urinary tract infection, site not specified 2.Below knee [...] Chronic kidney disease, stage 3 (moderate) Extracted from: Title: Clinical Document Author: Noé Duong MD Date: 01/14/17 PHD History and Physical Chief Complaint: flank pain, [...] Blood Glucose Results. meropenem: 500 mg, IVPB, [id number]. metoclopramide: 5 mg, 1 tab, PO, TID-Before [...] UA Blood: cSmall Abnormal (01/14/17 03:14:51) UA Butler Yeast: Few Abnormal (01/14/17 03:14:51) UA Color: [...] - morphine for pain - isolation 2. ALDO - - worsening kidney function - renally dose meds - will need renal consult for possible e stablishment of HD 3. DM - - SSI - accuchecks 4. HTN - - home meds 5. Proph - - ambulation 6. Code - FULL
--- OUTSIDE RECORDS SUMMARY | 2019-09-10 20:11 | XMS REPORT | Summary of Care ---
Author Author [facility] Address Unknown Phone Unavailable Encounter PRIMITIVO Mariano(SANGITA) [id number] Date(s): 06/17/18 - 06/19/18 [facility] [address] [place] [address]- [facility] [phone] Discharge Disposition: Home or Self Care Attending Physician: Lolis Sharp MD Admitting Physician: Lolis Sharp MD Vital Signs 1 2 3 Most recent to oldest [Reference Range]: 170.18 cm (06/17/18 7:07 AM) Height 98.8 DegF (06/19/18 12:00 PM) 99.4 DegF *HI* (06/19/18 8:00 AM) 99.2 DegF *HI* (06/19/18 4:00 AM) Temperature Oral [96.4-99.1 DegF] 156/110 mmHg *HI* (06/19/18 1:00 PM) 177/101 mmHg *HI* (06/19/18 12:00 PM) 162/94 mmHg *HI* (06/19/18 11:00 AM) Blood Pressure [90-140/60-90 mmHg] 14 BRMIN (06/19/18 1:00 PM) 13 BRMIN *LOW* (06/19/18 12:00 PM) 13 BRMIN *LOW* (06/19/18 11:00 AM) Respiratory Rate [14-20 BRMIN] 115 bpm *HI* (06/17/18 7:30 AM) 111 bpm *HI* (06/17/18 7:07 AM) Peripheral Pulse Rate [60-100 bpm] 111.3 kg (06/17/18 4:57 PM) 111.364 kg (06/17/18 7:07 AM) Weight 38.45 m2 (06/17/18 7:07 AM) Body Mass Index Problem List Condition [...] Alerts Substance Reaction Severity Status Tylenol Active [place] Active traMADol Active Medications carvedilol 25 mg, 2 tab, Route: PO, Drug form: TAB, Q12H, Dosing Weight 111.364, kg, Priori ty: NOW, Start date: 06/17/18 10:44:00 STONE CARRIAGE OPERATOR, Duration: 30 day, Stop date: 9 9:00:00 CDT Notes: Give with food. (Same As: Coreg) Start Date: 06/17/18 Stop Date: 06/19/18 Status: Discontinued Cipro 500 mg oral tablet 500 mg = 1 tab, PO, Q24H, X 5 day, # 5 tab, 0 Refill(s), Pharmacy: [facility] [id number] Start Date: 06/19/18 Stop Date: 06/24/18 Status: Ordered Dextrose 50% Syringe 25 gm, 50 mL, Route: IVP, Drug Form: INJ, Dosing Weight 111.364, kg, PRN, PRN Bl ood Glucose Results, Start date: 06/17/18 12:06:00 STONE CARRIAGE OPERATOR, Duration: 30 day, Stop d ate: 07/17/18 13:05:00 CDT Start Date: 06/17/18 Stop Date: 06/19/18 Status: Discontinued Dextrose 50% Syringe 12.5 gm, 25 mL, Route: IVP, Drug Form: INJ, Dosing Weight 111.364, kg, PRN, PRN Blood Glucose Results, Start date: 06/17/18 12:06:00 STONE CARRIAGE OPERATOR, Duration: 30 day, Stop date: 07/17/18 13:05:00 CDT Start Date: 06/17/18 Stop Date: 06/19/18 Status: Discontinued Dilaudid 0.5 mg, 0.5 mL, Route: IVP, Drug form: INJ, Q4H, Dosing Weight 111.364, kg, PRN Pain Score 7-10, Start date: 06/17/18 12:05:00 STONE CARRIAGE OPERATOR, Duration: 30 day, Stop date: 07/17/18 12:04:00 CDT Notes: Same as: Dilaudid Start Date: 06/17/18 Stop Date: 06/19/18 Status: Discontinued gabapentin 300 mg oral capsule 300 mg = 1 cap, PO, Daily, # 30 cap, 0 Refill(s), Pharmacy: [facility] [id number] Start Date: 06/19/18 Stop Date: 07/19/18 Status: Ordered glucagon 1 mg, Route: IM, Drug form: PDR/INJ, PRN, Dosing Weight 111.364, kg, PRN Blood G lucose Results, Start date: 06/17/18 12:06:00 STONE CARRIAGE OPERATOR, Duration: 30 day, Stop date: 07/17/18 13:05:00 CDT Start Date: 06/17/18 Stop Date: 06/19/18 Status: Discontinued heparin 5,000 unit, 1 mL, Route: SUB-Q, Drug form: INJ, Q8H, Dosing Weight 111.364, kg, Start date: 06/17/18 16:00:00 STONE CARRIAGE OPERATOR, Stop date: 07/17/18 8:00:00 CDT Notes: porcine heparin Start Date: 06/17/18 Stop Date: 06/19/18 Status: Discontinued heparin 10,000 unit, 10 mL, Route: DIALYSIS, Drug form: INJ, ONCALL, Dosing Weight 111.3 64, kg, Start date: 06/17/18 14:00:00 STONE CARRIAGE OPERATOR, Duration: 1 doses or times Start Date: 06/17/18 Stop Date: 06/18/18 Status: Completed hydrALAZINE 50 mg oral tablet 50 mg, 1 tab, Route: PO, Drug form: TAB, TID, Dosing Weight 111.364, kg, Start d ate: 06/17/18 13:00:00 STONE CARRIAGE OPERATOR, Duration: 30 day, Stop date: 07/17/18 9:00:00 CDT Notes: (Same as: Apresoline) May interfere w/enteral feedings Take With Food Start Date: 06/17/18 Stop Date: 06/19/18 Status: Discontinued Lasix 40 mg, Route: IVP, Drug form: INJ, ONCE, Dosing Weight 111.364, kg, Priority: ST AT, Start date: 06/17/18 9:55:00 STONE CARRIAGE OPERATOR, Stop date: 06/17/18 9:55:00 STONE CARRIAGE OPERATOR Start Date: 06/17/18 Stop Date: 06/17/18 Status: Completed Lasix 40 mg, 4 mL, Route: IVP, Drug form: INJ, ONCE, Dosing Weight 111.364, kg, Priori ty: STAT, Start date: 06/17/18 8:31:00 STONE CARRIAGE OPERATOR, Stop date: 06/17/18 8:31:00 STONE CARRIAGE OPERATOR Notes: (Same as: Lasix) MEDICATION WASTE Product Size: 40 mgProduct Was savana: ___ mg Start Date: 06/17/18 Stop Date: 06/17/18 Status: Completed morphine Sulfate 4 mg, Route: IVP, ONCE, Dosing Weight 111.364, kg, Priority: STAT, Start date: 0 06/17/18 8:17:00 STONE CARRIAGE OPERATOR, Stop date: 06/17/18 8:17:00 STONE CARRIAGE OPERATOR Start Date: 06/17/18 Stop Date: 06/17/18 Status: Completed NIFEdipine 30 mg oral tablet, extended release 30 mg, 1 tab, Route: PO, Drug form: ERTAB, Q12H, Dosing Weight 111.364, kg, Prio ritсветлана: NOW, Start date: 06/17/18 10:44:00 STONE CARRIAGE OPERATOR, Duration: 30 day, Stop date: 07/17 9:00:00 CDT Notes: (Same as: Adalat CC, Procardia XL) Give on empty stomach. Take 1 hour be fore or 2 hours after meal; "Avoid grapefruit and grapefruit juice". Do not cru sh Start Date: 06/17/18 Stop Date: 06/19/18 Status: Discontinued nitroglycerin 0.4 mg, Route: SL, ONCE, Dosing Weight 111.364, kg, Priority: STAT, Start date: 06/17/18 7:46:00 STONE CARRIAGE OPERATOR, Stop date: 06/17/18 7:46:00 STONE CARRIAGE OPERATOR Start Date: 06/17/18 Stop Date: 06/17/18 Status: Completed nitroglycerin 100 mg in D5W 250 mL (Titrate.) IV 100 mg 100 mg, 250 mL, Rate: Titrate, Start Dose: 10 microgram/min, Titration: 10 micro gram/min every 5 minutes, Goal(s): Chest pain and SBP between 100 - 150 mmHg, Ma x Dose: 200 mcg/min, Route: IV, Dosing Weight 111.364 kg, Total Volume: 250, Sta rt date: . Notes: (Same as:Tridil) Final conc = 0.4 mg/ml. Premix bottle. Start Date: 06/17/18 Stop Date: 06/19/18 Status: Discontinued nitroglycerin SL Tab 0.4 mg, Route: SL, ONCE, Dosing Weight 111.364, kg, Start date: 06/17/18 7:46:00 STONE CARRIAGE OPERATOR, Stop date: 06/17/18 7:46:00 STONE CARRIAGE OPERATOR Start Date: 06/17/18 Stop Date: 06/17/18 Status: Completed nitroglycerin SL Tab 0.4 mg, Route: SL, ONCE, Dosing Weight 111.364, kg, Start date: 06/17/18 7:46:00 STONE CARRIAGE OPERATOR, Stop date: 06/17/18 7:46:00 STONE CARRIAGE OPERATOR Start Date: 06/17/18 Stop Date: 06/17/18 Status: Completed Phenergan 12.5 mg, Route: IVPB, ONCE, Dosing Weight 111.3, kg, Priority: STAT, Start date: 06/18/18 7:39:00 STONE CARRIAGE OPERATOR, Stop date: 06/18/18 7:39:00 STONE CARRIAGE OPERATOR Start Date: 06/18/18 Stop Date: 06/18/18 Status: Discontinued Phenergan + Sodium Chloride 0.9% IV 50 mL 12.5 mg, 0.5 mL, Route: IVPB, ONCE, Dosing Weight 111.3, kg, PRN Nausea & Vomiting, Priority: STAT, Start date: 06/17/18 19:47:00 STONE CARRIAGE OPERATOR Notes: Do not give IV push. (Same as: Phenergan) Start Date: 06/17/18 Stop Date: 06/17/18 Status: Completed Phenergan + Sodium Chloride 0.9% IV 50 mL 12.5 mg, 0.5 mL, Route: IVPB, Q4H, Dosing Weight 111.3, kg, PRN Nausea & Vomiting, Start date: 06/18/18 7:38:00 STONE CARRIAGE OPERATOR, Duration: 30 day, Stop date: 7:37:00 CDT Notes: Do not give IV push. (Same as: Phenergan) Start Date: 06/18/18 Stop Date: 06/19/18 Status: Discontinued polyethylene glycol 3350 17 gm, 1 pkt, Route: PO, Drug form: PWDR, Daily, Dosing Weight 111.364, kg, Star t date: 06/18/18 9:00:00 STONE CARRIAGE OPERATOR, Duration: 30 day, Stop date: 07/17/18 9:00:00 CDT Notes: Dissolve in 8 oz of water or juice.(Same as: Miralax) Start Date: 06/18/18 Stop Date: 06/19/18 Status: Discontinued Protonix 40 mg, 1 tab, Route: PO, Drug form: ECTAB, Before Breakfast, Dosing Weight 111.3 , kg, Start date: 06/19/18 7:30:00 STONE CARRIAGE OPERATOR, Duration: 30 day, Stop date: 07/18/18 7: 30:00 CDT Notes: Tablet should not be chewed or crushed.(Same as: Protonix) Start Date: 06/19/18 Stop Date: 06/19/18 Status: Discontinued Protonix 40 mg, Route: IVP, Drug form: INJ, Daily, Dosing Weight 111.364, kg, Priority: N OW, Start date: 06/17/18 10:45:00 STONE CARRIAGE OPERATOR, Duration: 30 day, Stop date: 07/17/18 9:0 0:00 CDT Notes: For IV push reconstitute with 10 ml 0.9% sodium chloride and push over 2 minutes. (Same as: Protonix) Start Date: 06/17/18 Stop Date: 06/18/18 Status: Discontinued Rocephin + sterile water 10 mL 1 gm, Route: IVPB, ONCE, Dosing Weight 111.364, kg, Priority: STAT, Start date: 06/17/18 8:31:00 STONE CARRIAGE OPERATOR, Stop date: 06/17/18 8:31:00 STONE CARRIAGE OPERATOR, ABX Indication: Pneumonia Notes: (Same As: Rocephin).Use with 100 mL NS and infuse over 30 min MEDICA TION WASTE Product Size: 1000 mgProduct Wasted: ___ mg Start Date: 06/17/18 Stop Date: 06/17/18 Status: Completed Rocephin + sterile water 10 mL 1 gm, Route: IVPB, [id number], Dosing Weight 111.364, kg, Start date: 06/18/18 9:00 :00 STONE CARRIAGE OPERATOR, Duration: 7 day, Stop date: 06/24/18 9:00:00 STONE CARRIAGE OPERATOR, ABX Indication: Urina ry Tract Infection Notes: (Same As: Rocephin).Use with 100 mL NS and infuse over 30 min MEDICA TION WASTE Product Size: 1000 mgProduct Wasted: ___ mg Start Date: 06/18/18 Stop Date: 06/19/18 Status: Discontinued Saline Flush 0.9% 10 mL, Route: IVP, Drug Form: INJ, Dosing Weight 111.364, kg, PRN, PRN Line Flus h, Start date: 06/17/18 7:24:00 STONE CARRIAGE OPERATOR, Duration: 30 day, Stop date: 07/17/18 8:23: 00 CDT Notes: (Same as: BD Posiflush) Start Date: 06/17/18 Stop Date: 06/19/18 Status: Discontinued Sodium Chloride 0.9% (Bolus) IV 1,000 mL, 1,000 ml/hr, Infuse Over: 1 hr, Route: IV, 1,000, Drug form: INJ, PRN, Priority: STAT, Dosing Weight 111.364 kg, Start date: 06/17/18 13:39:00 STONE CARRIAGE OPERATOR, Du ration: 30 day, Stop date: 07/17/18 14:38:00 CDT, PRN Dialysis Start Date: 06/17/18 Stop Date: 06/19/18 Status: Discontinued tramadol 50 mg oral tablet 50 mg, 1 tab, Route: PO, Drug form: TAB, Q12H, Dosing Weight 111.364, kg, PRN Pa in Score 1-3, Start date: 06/17/18 12:05:00 STONE CARRIAGE OPERATOR, Duration: 30 day, Stop date: 12:04:00 CDT Notes: Not to exceed 400mg/day. (Same As: Ultram) Start Date: 06/17/18 Stop Date: 06/17/18 Status: Discontinued Zofran 4 mg, 2 mL, Route: IV, Drug form: INJ, Q4H, Dosing Weight 111.3, kg, PRN Nausea, Priority: STAT, Start date: 06/17/18 19:30:00 STONE CARRIAGE OPERATOR, Duration: 30 day, Stop date: 07/17/18 19:29:00 CDT Notes: (Same as: Zofran) MEDICATION WASTE Product Size: 4 mgProduct Was savana: ___ mg Start Date: 06/17/18 Stop Date: 06/17/18 Status: Discontinued Zofran 4 mg, Route: IVP, Drug form: INJ, ONCE, Dosing Weight 111.364, kg, Priority: STA T, Start date: 06/17/18 8:17:00 STONE CARRIAGE OPERATOR, Stop date: 06/17/18 8:17:00 STONE CARRIAGE OPERATOR Start Date: 06/17/18 Stop Date: 06/17/18 Status: Completed Results ELECTROLYTES 1 2 3 Most recent to oldest [Reference Range]: 140 mEq/L (06/19/18 5:18 AM) 137 mEq/L (06/18/18 5:25 AM) 140 mEq/L (06/17/18 7:31 AM) Sodium Lvl [135-145 mEq/L] 4.2 mEq/L (06/19/18 5:18 AM) 4.4 mEq/L (06/18/18 5:25 AM) 5.0 mEq/L (06/17/18 7:31 AM) Potassium Lvl [3.5-5.1 mEq/L] 106 mEq/L (06/19/18 5:18 AM) 104 mEq/L (06/18/18 5:25 AM) 109 mEq/L (06/17/18 7:31 AM) Chloride Lvl [95-109 mEq/L] 24 mEq/L (06/19/18 5:18 AM) 24 mEq/L (06/18/18 5:25 AM) 18 mEq/L *LOW* (06/17/18 7:31 AM) CO2 [24-32 mEq/L] 14.2 mEq/L (06/19/18 5:18 AM) 13.4 mEq/L (06/18/18 5:25 AM) 18.0 mEq/L (06/17/18 7:31 AM) AGAP [10.0-20.0 mEq/L] CHEM PANEL 1 2 3 Most recent to oldest [Reference Range]: 5.94 mg/dL *HI* (06/19/18 5:18 AM) 7.74 mg/dL *HI* (06/18/18 5:25 AM) 10.10 mg/dL *HI* (06/17/18 7:31 AM) Creatinine Lvl [0.50-1.40 mg/dL] 9 mL/min/1.73m2 1 *NA* (06/19/18 5:18 AM) 7 mL/min/1.73m2 2 *NA* (06/18/18 5:25 AM) 5 mL/min/1.73m2 3 *NA* (06/17/18 7:31 AM) eGFR 25 mg/dL *HI* (06/19/18 5:18 AM) 39 mg/dL *HI* (06/18/18 5:25 AM) 60 mg/dL *HI* (06/17/18 7:31 AM) BUN [7-22 mg/dL] 6 (06/17/18 7:31 AM) B/C Ratio [6-25] 159 mg/dL *HI* (06/19/18 5:18 AM) 170 mg/dL *HI* (06/18/18 5:25 AM) 173 mg/dL *HI* (06/17/18 7:31 AM) Glucose Lvl [70-99 mg/dL] 7.9 g/dL (06/17/18 7:31 AM) Total Protein [6.4-8.4 g/dL] 2.8 g/dL *LOW* (06/17/18 7:31 AM) Albumin Lvl [3.5-5.0 g/dL] 5.1 g/dL *HI* (06/17/18 7:31 AM) Globulin [2.7-4.2 g/dL] 0.5 *LOW* (06/17/18 7:31 AM) A/G Ratio [0.7-1.6] 7.7 mg/dL *LOW* (06/19/18 5:18 AM) 7.3 mg/dL *LOW* (06/18/18 5:25 AM) 7.7 mg/dL *LOW* (06/17/18 7:31 AM) Calcium Lvl [8.5-10.5 mg/dL] 6.2 mg/dL *HI* (06/17/18 7:31 AM) Phosphorus [2.5-4.5 mg/dL] 1.9 mg/dL (06/17/18 7:31 AM) Magnesium Lvl [1.8-2.4 mg/dL] 11 unit/L (06/17/18 7:31 AM) ALT [0-65 unit/L] 12 unit/L (06/17/18 7:31 AM) AST [0-37 unit/L] 101 unit/L (06/17/18 7:31 AM) Alk Phos [39-136 unit/L] 0.3 mg/dL (06/17/18 7:31 AM) Bili Total [0.2-1.3 mg/dL] 166 unit/L (06/17/18 7:31 AM) Lipase Lvl [73-393 unit/L] 0.8 mMol/L (06/17/18 8:31 AM) Lactic Acid Lvl [0.5-2.2 mMol/L] 1Result [...] 3 Most recent to oldest [Reference Range]: 289 unit/L *HI* (06/17/18 7:31 AM) Total CK [12-191 unit/L] 0.03 ng/mL (06/17/18 7:31 AM) Troponin-I [0.00-0.40 ng/mL] 68500 pg/mL *HI* (06/17/18 7:31 AM) proBNP [0-125 pg/mL] URINE AND STOOL 1 2 3 Most recent to oldest [Reference Range]: Slight *ABN* (06/17/18 6:39 PM) UA Turbidity [Clear] Yellow *NA* (06/17/18 6:39 PM) UA Color [Yellow] 7.0 (06/17/18 6:39 PM) UA pH [5.0-8.0] 1.010 (06/17/18 6:39 PM) UA Spec Grav [<=1.030] >=500 mg/dL *NA* (06/17/18 6:39 PM) UA Glucose Small *ABN* (06/17/18 6:39 PM) UA Blood [Negative] Negative *NA* (06/17/18 6:39 PM) UA Ketones [Negative] >=300 mg/dL *ABN* (06/17/18 6:39 PM) UA Protein [Negative mg/dL] <=1.0 mg/dL *NA* (06/17/18 6:39 PM) UA Urobilinogen [0.1-1.0 mg/dL] Negative *NA* (06/17/18 6:39 PM) UA Bili [Negative] Trace *ABN* (06/17/18 6:39 PM) UA Leuk Est [Negative] Negative (06/17/18 6:39 PM) UA Nitrite [Negative] 27 /HPF *HI* (06/17/18 6:39 PM) UA WBC [0-5 /HPF] 8 /HPF *HI* (06/17/18 6:39 PM) UA RBC [0-2 /HPF] Occasional /HPF *NA* (06/17/18 6:39 PM) UA Bacteria [None Seen /HPF] Few /LPF *NA* (06/17/18 6:39 PM) UA Sq Epi [Few /LPF] Performed (06/17/18 6:39 PM) Micro? IMMUNOLOGY 1 2 3 Most recent to oldest [Reference Range]: Negative *NA* (06/17/18 2:15 PM) Hep Bs Ag [Negative] HEMATOLOGY 1 2 3 Most recent to oldest [Reference Range]: 8.3 K/CMM (06/19/18 5:18 AM) 8.1 K/CMM (06/18/18 5:25 AM) 12.9 K/CMM *HI* (06/17/18 7:31 AM) WBC [3.7-10.4 K/CMM] 3.09 M/CMM *LOW* (06/19/18 5:18 AM) 3.13 M/CMM *LOW* (06/18/18 5:25 AM) 3.32 M/CMM *LOW* (06/17/18 7:31 AM) RBC [4.20-5.40 M/CMM] 9.5 g/dL *LOW* (06/19/18 5:18 AM) 9.6 g/dL *LOW* (06/18/18 5:25 AM) 10.2 g/dL *LOW* (06/17/18 7:31 AM) Hgb [12.0-16.0 g/dL] 28.2 % *LOW* (06/19/18 5:18 AM) 28.9 % *LOW* (06/18/18 5:25 AM) 30.3 % *LOW* (06/17/18 7:31 AM) Hct [36.0-48.0 %] 91.1 fL (06/19/18 5:18 AM) 92.1 fL (06/18/18 5:25 AM) 91.3 fL (06/17/18 7:31 AM) MCV [80.0-98.0 fL] 30.8 pg (06/19/18 5:18 AM) 30.6 pg (06/18/18 5:25 AM) 30.7 pg (06/17/18 7:31 AM) MCH [27.0-31.0 pg] 33.8 g/dL (06/19/18 5:18 AM) 33.3 g/dL (06/18/18 5:25 AM) 33.6 g/dL (06/17/18 7:31 AM) MCHC [32.0-36.0 g/dL] 15.2 % *HI* (06/19/18 5:18 AM) 15.7 % *HI* (06/18/18 5:25 AM) 15.6 % *HI* (06/17/18 7:31 AM) RDW [11.5-14.5 %] 7.7 fL (06/19/18 5:18 AM) 7.9 fL (06/18/18 5:25 AM) 7.5 fL (06/17/18 7:31 AM) MPV [7.4-10.4 fL] 214 K/CMM (06/19/18 5:18 AM) 213 K/CMM (06/18/18 5:25 AM) 250 K/CMM (06/17/18 7:31 AM) Platelet [133-450 K/CMM] 56.7 % (06/19/18 5:18 AM) 60.4 % (06/18/18 5:25 AM) 63.9 % (06/17/18 7:31 AM) Segs [45.0-75.0 %] 29.5 % (06/19/18 5:18 AM) 26.3 % (06/18/18 5:25 AM) 25.5 % (06/17/18 7:31 AM) Lymphocytes [20.0-40.0 %] 8.2 % (06/19/18 5:18 AM) 8.0 % (06/18/18 5:25 AM) 6.1 % (06/17/18 7:31 AM) Monocytes [2.0-12.0 %] 4.8 % *HI* (06/19/18 5:18 AM) 4.5 % *HI* (06/18/18 5:25 AM) 3.2 % (06/17/18 7:31 AM) Eosinophils [0.0-4.0 %] 0.8 % (06/19/18 5:18 AM) 0.8 % (06/18/18 5:25 AM) 1.3 % *HI* (06/17/18 7:31 AM) Basophils [0.0-1.0 %] 4.7 K/CMM (06/19/18 5:18 AM) 4.9 K/CMM (06/18/18 5:25 AM) 8.2 K/CMM *HI* (06/17/18 7:31 AM) Neutrophils # [1.5-8.1 K/CMM] 2.4 K/CMM (06/19/18 5:18 AM) 2.1 K/CMM (06/18/18 5:25 AM) 3.3 K/CMM (06/17/18 7:31 AM) Lymphocytes # [1.0-5.5 K/CMM] 0.7 K/CMM (06/19/18 5:18 AM) 0.7 K/CMM (06/18/18 5:25 AM) 0.8 K/CMM (06/17/18 7:31 AM) Monocytes # [0.0-0.8 K/CMM] 0.4 K/CMM (06/19/18 5:18 AM) 0.4 K/CMM (06/18/18 5:25 AM) 0.4 K/CMM (06/17/18 7:31 AM) Eosinophils # [0.0-0.5 K/CMM] 0.1 K/CMM (06/19/18 5:18 AM) 0.1 K/CMM (06/18/18 5:25 AM) 0.2 K/CMM (06/17/18 7:31 AM) Basophils # [0.0-0.2 K/CMM] 13.7 seconds (06/17/18 7:31 AM) PT [12.0-14.7 seconds] 1.07 (06/17/18 7:31 AM) INR [0.85-1.17] BACTERIAL - SEROLOGY 1 2 3 Most recent to oldest [Reference Range]: Negative (06/17/18 12:59 PM) MRSA by PCR Immunizations Given and [...] use Assessment and Plan Extracted from: Title: UIP Hospitalist Discharge Author: Lolis Sharp MD Date: 06/19/18 Summary [facility] Hospitalist D ischarge Summary Code Status: None Specified=FULL CODE Admission Date: 06/17/2018 Discharge Date: 06/19/2018 Discharge Diagnosis: 1. Shortness of breath, volume overload 2. ESRD on HD, missed dialysis x 1 week 3. HTN urgency 4. Recurrent UTIs Consulting Physicians: Consulting Physicians: Brett Guerrero MDOffice: Service: Pulmonary Ernie Woods MDOffice: Service: Medicine, Nephrology Discharge Condition: fair Hospital [...] > 30 minutes Lolis Sharp MD Hospitalist [place] [facility] Extracted from: Title: Nephrology * Author: Ernie Woods MD Date : 06/19/18 Impression and Plan Volume overloadimproved Metabolic [...] Counseled again about compliance D/w patient Extracted from: Title: UIP Hospitalist Admission Author: Lolis Sharp MD Date: 06/17/18 H&[facility] [place] [facility] Hospitalist Marcio dmission History & Physical Code Status: None Specified=FULL CODE Chief [...] 100 mg) 100 mg Titrate Allergies (2) ActiveReaction TylenolNone documented NorcoNone documented Allergies: Physical Exam: VitalsTmp(F)[id number] 06/17 10:30----[id number]--- 06/17 10:25----[id number]--- 06/17 10:20----[id number]--- 06/17 10:15----[id number] 40% 06/17 10:[id number]--- 24 Hr Tmax: 98.4F (36.89c) at 06/17 07:0 7Vital Signs are the last 5 in [...] grossly intact. Psych: Appropriate mood and affect. I&ORecordInOutBal 05/2423hr Tot 10 0 10 05/2323hr Tot 0 0 0 Lines, Tubes, and [...] Disposition: 3 MN Lolis Sharp MD Hospitalist [place] [facility] Extracted from: Title: ICU consult note Author: Brett Guerrero MD [...] to patient clinical condition Allergies Allergies (2) ActiveReaction TylenolNone documented NorcoNone documented Procedure History section [...] solution 10,000 unit = 1 mL, SUB-Q, famotidine 20 mg oral tablet 20 mg = 1 tab, PO, BID furosemide 40 mg oral tablet 40 mg = 1 tab, PO, BID hydrALAZINE 50 mg oral tablet 50 mg = 1 tab, PO, TID levofloxacin 500 mg oral tablet 500 mg = 1 tab, PO, [id number] NIFEdipine 30 mg oral tablet, extended release [...] Labs (Last four charted values) WBC H 12.9(JUN 17) Hgb L 10.2(JUN 17) Hct L 30.3(JUN 17) Plt 250(JUN 17) Na 140(JUN 17) K 5.0(JUN 17) CO2 L 18(JUN 17) Cl 109(JUN 17) Cr H 10.10(JUN 17) BUN H 60(JUN 17) Glucose Random H 173(JUN 17) Mg 1.9(JUN 17) Phos H 6.2(JUN 17) Ca L 7.7(JUN 17) PT 13.7(JUN 17) INR 1.07(JUN 17) Troponin 0.03(JUN 17) Total CK H 289(JUN 17) All imaging reviewed. Objective: I&ORecordInOutBal 05/2423hr Tot 10 0 10 Tot 0 0 0 Lines, Tubes, and Drains: 06/17/2018 07:49 Peripheral Lines: Antec ubital Left 20 gauge Over the needle catheter 06/17/2018 07:38 Peripheral Lines: Antec ubital Right 20 gauge Over the needle catheter 06/17/2018 10:30 SpO2 [id number] 06/17/2018 10:15 FIO2 (%)40 06/17/2018 08:02 Non-Invasive Vent ModeBIPAP Resp Rate, Set12 Pressure Dwyussx37 PEEP/CPAP8 Ambu Bag Mask to O2Yes Resp Rate, Pghykl01 Peak Pressure (cmH2O)15 Vital Signs (last 24 hrs) Last Charted Temp Oral98.2 DegF (JUN 17 10:10) Heart Rate Zpqime12 bpm (JUN 17 10:30) Resp Rate L 10BRMIN (JUN 17:30) SBPH 153mmHg (JUN 17:30) DBPH 98mmHg (JUN 17:30) VcB1445 % (JUN 17 10:30) Brbukl127.36 kg (JUN 17:07) Hxqoco924.18 cm (JUN 17:07) BMI38.45 (JUN 17:) Exam: General: Ill-appearing, BiPAP in place HEENT: [...]
--- OUTSIDE RECORDS SUMMARY | 2019-09-10 20:11 | XMS REPORT | Summary of Care ---
Author Author [facility] Organization [facility] Address Unknown Phone Unavailable Encounter PRIMITIVO Mariano(SANGITA) [id number] Date(s): 04/12/17 - 04/13/17 [facility] [address] [employer] provided by [facility] [place] [address]- Discharge Disposition: Home or Self Care Attending Physician: Naeem Ham MD Admitting Physician: Naeem Ham MD Vital Signs 1 2 3 Most recent to oldest [Reference Range]: 97.9 DegF (04/13/17 12:13 PM) 98.3 DegF (04/13/17 11:15 AM) 98.1 DegF (04/13/17 9:05 AM) Temperature Oral [96.4-99.1 DegF] 103/67 mmHg (04/13/17 12:13 PM) 145/98 mmHg *HI* (04/13/17 11:15 AM) 131/84 mmHg (04/13/17 9:05 AM) Blood Pressure [90-140/60-90 mmHg] 18 BRMIN (04/13/17 12:13 PM) 18 BRMIN (04/13/17 11:15 AM) 18 BRMIN (04/13/17 9:05 AM) Respiratory Rate [14-20 BRMIN] 94 bpm (04/13/17 12:13 PM) 99 bpm (04/13/17 7:35 AM) 93 bpm (04/13/17 3:42 AM) Peripheral Pulse Rate [60-100 bpm] 102.727 kg (04/13/17 1:21 AM) 102.727 kg (04/13/17 1:21 AM) Weight Problem List Condition Effective Dates [...] PO, Drug form: TAB, Q4H, Dosing Weight 117.591, kg, PRN Pa in 1-3/Temp > 100.4 F, Start date: 04/12/17 9:35:00 ECONOMICS TEACHER, Duration: 30 day, Stop date: 05/12/17 9:34:00 ECONOMICS TEACHER Notes: Do not exceed 4 gm/day. (Same as: Tylenol) Start Date: 04/12/17 Stop Date: 04/13/17 Status: Discontinued acetaminophen-hydrocodone 325 mg-5 mg oral tablet 1 tab, Route: PO, Drug Form: TAB, Dosing Weight 117.591, kg, ONCE, STAT, Start d ate: 04/12/17 13:09:00 ECONOMICS TEACHER, Stop date: 04/12/17 13:09:00 ECONOMICS TEACHER Start Date: 04/12/17 Stop Date: 04/12/17 Status: Completed atorvastatin 40 mg, 1 tab, Route: PO, Drug form: TAB, Bedtime, Dosing Weight 117.591, kg, Sta rt date: 04/12/17 21:00:00 ECONOMICS TEACHER, Duration: 30 day, Stop date: 05/11/17 21:00:[address] Notes: (Same as: Lipitor) Start Date: 04/12/17 Stop Date: 04/13/17 Status: Discontinued atorvastatin 40 mg oral tablet 40 mg = 1 tab, PO, Bedtime, # 90 tab, 3 Refill(s) Start Date: 04/13/17 Status: Ordered carvedilol 25 mg, 1 tab, Route: PO, Drug form: TAB, ONCE, Dosing Weight 117.591, kg, Start date: 04/12/17 5:28:00 ECONOMICS TEACHER, Stop date: 04/12/17 5:28:00 ECONOMICS TEACHER Notes: Give with food. (Same As: Coreg) Start Date: 04/12/17 Stop Date: 04/12/17 Status: Completed carvedilol 25 mg, 1 tab, Route: PO, Drug form: TAB, Q12H, Dosing Weight 117.591, kg, Start date: 04/12/17 21:00:00 ECONOMICS TEACHER, Duration: 30 day, Stop date: 05/12/17 9:00:00 ECONOMICS TEACHER Start Date: 04/12/17 Stop Date: 04/13/17 Status: Discontinued carvedilol 25 mg oral tablet 25 mg = 1 tab, PO, BID Start Date: 04/12/17 Stop Date: 04/13/17 Status: Completed carvedilol 25 mg oral tablet 25 mg = 1 tab, PO, Q12H, # 90 tab, 3 Refill(s) Start Date: 04/13/17 Status: Ordered Dextrose 50% Syringe 12.5 gm, 25 mL, Route: IVP, Drug Form: INJ, Dosing Weight 117.591, kg, PRN, PRN Blood Glucose Results, Start date: 04/12/17 9:56:00 ECONOMICS TEACHER, Duration: 30 day, Stop date: 05/12/17 9:55:00 ECONOMICS TEACHER Start Date: 04/12/17 Stop Date: 04/13/17 Status: Discontinued Dextrose 50% Syringe 50 mL, Route: IVP, Dosing Weight 117.591, kg, PRN, PRN Blood Glucose Results, St art date: 04/12/17 9:56:00 ECONOMICS TEACHER, Duration: 30 day, Stop date: 05/12/17 9:55:00 CS T Start Date: 04/12/17 Stop Date: 04/12/17 Status: Discontinued Dilaudid 1 mg, Route: IV, ONCE, Dosing Weight 117.591, kg, Start date: 04/12/17 5:18:[address], Stop date: 04/12/17 5:18:00 ECONOMICS TEACHER Start Date: 04/12/17 Stop Date: 04/12/17 Status: Completed Dilaudid 1 mg, Route: IVP, ONCE, Dosing Weight 117.591, kg, Priority: STAT, Start date: 1 06/13/16 19:23:00 ECONOMICS TEACHER, Stop date: 04/12/17 19:23:00 ECONOMICS TEACHER Start Date: 04/12/17 Stop Date: 04/12/17 Status: Completed Dilaudid 1 mg, Route: IV, ONCE, Dosing Weight 117.591, kg, Start date: 04/12/17 3:44:[address], Stop date: 04/12/17 3:44:00 ECONOMICS TEACHER Start Date: 04/12/17 Stop Date: 04/12/17 Status: Completed Dilaudid 1 mg, Route: IV, ONCE, Dosing Weight 117.591, kg, Start date: 04/12/17 6:11:[address], Stop date: 04/12/17 6:11:00 ECONOMICS TEACHER Start Date: 04/12/17 Stop Date: 04/12/17 Status: Completed furosemide 80 mg oral tablet 80 mg = 1 tab, PO, BID Start Date: 04/12/17 Stop Date: 04/13/17 Status: Completed glucagon 1 mg, Route: IM, Drug form: PDR/INJ, PRN, Dosing Weight 117.591, kg, PRN Blood G lucose Results, Start date: 04/12/17 9:56:00 ECONOMICS TEACHER, Duration: 30 day, Stop date: 0 05/12/17 9:55:00 ECONOMICS TEACHER Start Date: 04/12/17 Stop Date: 04/13/17 Status: Discontinued hydrALAZINE 100 mg oral tablet 100 mg = 1 tab, PO, BID Start Date: 04/12/17 Stop Date: 04/13/17 Status: Completed hydrALAZINE 25 mg oral tablet 75 mg, 3 tab, Route: PO, Drug form: TAB, TID, Dosing Weight 117.591, kg, Start d ate: 04/12/17 13:00:00 ECONOMICS TEACHER, Duration: 30 day, Stop date: 05/12/17 9:00:00 ECONOMICS TEACHER Start Date: 04/12/17 Stop Date: 04/13/17 Status: Discontinued hydrALAZINE 25 mg oral tablet 75 mg = 3 tab, PO, TID, # 90 tab, 3 Refill(s) Start Date: 04/13/17 Status: Ordered hydrALAZINE 25 mg oral tablet 75 mg, 3 tab, Route: PO, Drug form: TAB, ONCE, Dosing Weight 117.591, kg, Start date: 04/12/17 5:29:00 ECONOMICS TEACHER, Stop date: 04/12/17 5:29:00 ECONOMICS TEACHER Notes: (Same as: Apresoline) May interfere w/enteral feedings Take With Food. Start Date: 04/12/17 Stop Date: 04/12/17 Status: Completed hydromorphone 0.5 mg, 0.25 mL, Route: IVP, Drug form: INJ, ONCE, Dosing Weight 117.591, kg, Pr iority: STAT, Start date: 04/12/17 23:51:00 ECONOMICS TEACHER, Stop date: 04/12/17 23:51:00 CS T Notes: Same as Dilaudid Start Date: 04/12/17 Stop Date: 04/13/17 Status: Completed hydrOXYzine 25 mg, 1 cap, Route: PO, Drug form: CAP, ONCE, Dosing Weight 117.591, kg, Start date: 04/13/17 0:31:00 ECONOMICS TEACHER, Stop date: 04/13/17 0:31:00 ECONOMICS TEACHER Notes: (Same as: Vistaril) Start Date: 04/13/17 Stop Date: 04/13/17 Status: Completed Insulin regular 3 unit, 0.03 mL, Route: SUB-Q, Drug form: SOLN, TID-Before Meals, Dosing Weight 117.591, kg, PRN Blood Glucose Results, Start date: 04/12/17 9:56:00 ECONOMICS TEACHER, Durati on: 30 , Stop date: 05/12/17 9:55:00 ECONOMICS TEACHER Notes: (Same as: Humulin R) Roll in palms of hands gently; Do not shake vigorou sly. "single patient use only"(Restricted to patients requiring a dose > 60 units)WASTE: F/P - Black; E - Municipal Trash Bin Stable for 28 days at room temperatureExpires in days from Date Start Date: 04/12/17 Stop Date: 04/13/17 Status: Discontinued Insulin regular 4 unit, 0.04 mL, Route: SUB-Q, Drug form: SOLN, TID-Before Meals, Dosing Weight 117.591, kg, PRN Blood Glucose Results, Start date: 04/12/17 9:56:00 ECONOMICS TEACHER, Durati on: 30 , Stop date: 05/12/17 9:55:00 ECONOMICS TEACHER Notes: (Same as: Humulin R) Roll in palms of hands gently; Do not shake vigorou sly. "single patient use only"(Restricted to patients requiring a dose > 60 units)WASTE: F/P - Black; E - Municipal Trash Bin Stable for 28 days at room temperatureExpires in days from Date Start Date: 04/12/17 Stop Date: 04/13/17 Status: Discontinued Insulin regular 5 unit, 0.05 mL, Route: SUB-Q, Drug form: SOLN, TID-Before Meals, Dosing Weight 117.591, kg, PRN Blood Glucose Results, Start date: 04/12/17 9:56:00 ECONOMICS TEACHER, Durati on: 30 , Stop date: 05/12/17 9:55:00 ECONOMICS TEACHER Notes: (Same as: Humulin R) Roll in palms of hands gently; Do not shake vigorou sly. "single patient use only"(Restricted to patients requiring a dose > 60 units)WASTE: F/P - Black; E - Municipal Trash Bin Stable for 28 days at room temperatureExpires in days from Date Start Date: 04/12/17 Stop Date: 04/13/17 Status: Discontinued Insulin regular 1 unit, 0.01 mL, Route: SUB-Q, Drug form: SOLN, TID-Before Meals, Dosing Weight 117.591, kg, PRN Blood Glucose Results, Start date: 04/12/17 9:56:00 ECONOMICS TEACHER, Durati on: 30 day, Stop date: 05/12/17 9:55:00 ECONOMICS TEACHER Notes: (Same as: Humulin R) Roll in palms of hands gently; Do not shake vigorou sly. "single patient use only"(Restricted to patients requiring a dose > 60 units)WASTE: F/P - Black; E - Municipal Trash Bin Stable for 28 days at room temperatureExpires in days from Date Start Date: 04/12/17 Stop Date: 04/13/17 Status: Discontinued Insulin regular 2 unit, 0.02 mL, Route: SUB-Q, Drug form: SOLN, TID-Before Meals, Dosing Weight 117.591, kg, PRN Blood Glucose Results, Start date: 04/12/17 9:56:00 ECONOMICS TEACHER, Durati on: 30 day, Stop date: 05/12/17 9:55:00 ECONOMICS TEACHER Notes: (Same as: Humulin R) Roll in palms of hands gently; Do not shake vigorou sly. "single patient use only"(Restricted to patients requiring a dose > 60 units)WASTE: F/P - Black; E - Municipal Trash Bin Stable for 28 days at room temperatureExpires in days from Date Start Date: 04/12/17 Stop Date: 04/13/17 Status: Discontinued labetalol 10 mg, Route: IV, ONCE, Dosing Weight 117.591, kg, Start date: 04/12/17 6:01:00 ECONOMICS TEACHER, Stop date: 04/12/17 6:01:00 ECONOMICS TEACHER Start Date: 04/12/17 Stop Date: 04/12/17 Status: Completed Lasix 40 mg oral tablet 40 mg, 1 tab, Route: PO, Drug form: TAB, BID, Dosing Weight 117.591, kg, Start d ate: 04/12/17 17:00:00 ECONOMICS TEACHER, Duration: 30 day, Stop date: 05/12/17 9:00:00 ECONOMICS TEACHER Start Date: 04/12/17 Stop Date: 04/13/17 Status: Discontinued Lasix 40 mg oral tablet 40 mg = 1 tab, PO, BID, # 60 tab, 3 Refill(s) Start Date: 04/13/17 Status: Ordered Lasix 40 mg oral tablet 40 mg = 1 tab, PO, BID, 0 Refill(s) Start Date: 04/12/17 Stop Date: 04/12/17 Status: Discontinued levofloxacin 500 mg, 1 tab, Route: PO, Drug form: TAB, Q48H, Dosing Weight 117.591, kg, Start date: 04/14/17 17:00:00 ECONOMICS TEACHER, Duration: 2 day, Stop date: 04/14/17 17:00:00 ECONOMICS TEACHER, ABX Indication: Urinary Tract Infection Start Date: 04/14/17 Stop Date: 04/13/17 Status: Canceled levofloxacin 750 mg, 1 tab, Route: PO, Drug form: TAB, ONCE, Dosing Weight 117.591, kg, Start date: 04/12/17 16:28:00 ECONOMICS TEACHER, Stop date: 04/12/17 16:28:00 ECONOMICS TEACHER, ABX Indication: Urinary Tract Infection Notes: Do not give w/antacids, dairy pdt & mineralsTake 1 hr before or 2 hr after dairy products Start Date: 04/12/17 Stop Date: 04/12/17 Status: Completed lisinopril PO, Daily, 0 Refill(s) Start Date: 04/12/17 Stop Date: 04/12/17 Status: Discontinued lisinopril 40 mg oral tablet 40 mg = 1 tab, PO, Daily Start Date: 04/12/17 Stop Date: 04/13/17 Status: Discontinued metoclopramide 10 mg oral tablet 10 mg = 1 tab, PO, TID Start Date: 04/12/17 Stop Date: 04/13/17 Status: Discontinued metoclopramide 10 mg oral tablet 10 mg = 1 tab, PO, TID, X 30 day, # 90 tab, 1 Refill(s) Start Date: 04/13/17 Stop Date: 06/12/17 Status: Ordered metoclopramide 10 mg oral tablet 10 mg = 1 tab, PO, TID, X 30 day, # 90 tab, 1 Refill(s) Start Date: 04/13/17 Stop Date: 04/13/17 Status: Discontinued NIFEdipine 90 mg oral tablet, extended release 90 mg, 1 tab, Route: PO, Drug form: ERTAB, Daily, Dosing Weight 117.591, kg, Sta rt date: 04/13/17 9:00:00 ECONOMICS TEACHER, Duration: 30 day, Stop date: 05/12/17 9:00:00 ECONOMICS TEACHER Start Date: 04/13/17 Stop Date: 04/13/17 Status: Discontinued NIFEdipine 90 mg oral tablet, extended release 90 mg, 3 tab, Route: PO, Drug form: ERTAB, ONCE, Dosing Weight 117.591, kg, Star t date: 04/12/17 5:29:00 ECONOMICS TEACHER, Stop date: 04/12/17 5:29:00 ECONOMICS TEACHER Notes: (Same as: Adalat CC, Procardia XL) Give on empty stomach. Take 1 hour be fore or 2 hours after meal; "Avoid grapefruit and grapefruit juice". Do not cru sh Start Date: 04/12/17 Stop Date: 04/12/17 Status: Completed NIFEdipine 90 mg oral tablet, extended release 90 mg = 1 tab, PO, Daily, # 90 tab, 0 Refill(s) Start Date: 04/13/17 Stop Date: 07/12/17 Status: Ordered nitroglycerin 100 mg in D5W 250 mL (Titrate.) IV 100 mg 100 mg, 250 mL, Rate: Titrate, Start Dose: 0.25 microgram/kg/min, Titration: 0.2 microgram/kg/min every 5 minutes, Goal(s): Chest pain and SBP between 100 - 150 mmHg, Max Dose: 3 microgram/kg/min, Route: IV, Dosing Weight 117.591 kg, Total Volume: 250... Notes: (Same as:Tridil) Final conc = 0.4 mg/ml. Premix bottle. Start Date: 04/12/17 Stop Date: 04/12/17 Status: Discontinued nitroglycerin 50 mg in D5W 250 mL (Titrate.) IV 50 mg 50 mg, 250 mL, Rate: Titrate, Start Dose: 0.25 microgram/kg/min, Titration: 0.2 microgram/kg/min every 5 minutes, Goal(s): Chest pain and SBP between 100 - 150 mmHg, Max Dose: 3 microgram/kg/min, Route: IV, Dosing Weight 117.591 kg, Total V olume: 250,... Start Date: 04/12/17 Stop Date: 04/12/17 Status: Deleted ondansetron 4 mg, Route: IVP, Drug form: INJ, ONCE, Dosing Weight 117.591, kg, Priority: STA T, Start date: 04/12/17 8:57:00 ECONOMICS TEACHER, Stop date: 04/12/17 8:57:00 ECONOMICS TEACHER Start Date: 04/12/17 Stop Date: 04/12/17 Status: Completed pantoprazole 40 mg, 1 tab, Route: PO, Drug form: ECTAB, Before Breakfast, Dosing Weight 117.5 91, kg, Start date: 04/13/17 7:30:00 ECONOMICS TEACHER, Duration: 30 day, Stop date: 05/12/17 7:30:00 ECONOMICS TEACHER Notes: Tablet should not be chewed or crushed.(Same as: Protonix) Start Date: 04/13/17 Stop Date: 04/13/17 Status: Discontinued pantoprazole 40 mg oral enteric coated tablet 40 mg = 1 tab, PO, Before Breakfast, # 30 tab, 2 Refill(s) Start Date: 04/13/17 Status: Ordered Reglan 10 mg, 2 mL, Route: IVP, Drug form: INJ, ONCE, Dosing Weight 117.591, kg, Priori ty: STAT, Start date: 04/12/17 5:37:00 ECONOMICS TEACHER, Stop date: 04/12/17 5:37:00 ECONOMICS TEACHER Notes: (Same as: Reglan) Start Date: 04/12/17 Stop Date: 04/12/17 Status: Completed Reglan 10 mg, 2 mL, Route: IVP, Drug form: INJ, Q8H, Dosing Weight 117.591, kg, Start d ate: 04/12/17 16:00:00 ECONOMICS TEACHER, Duration: 30 day, Stop date: 05/12/17 8:00:00 ECONOMICS TEACHER Notes: (Same as: Reglan) Start Date: 04/12/17 Stop Date: 04/13/17 Status: Discontinued Reglan 5 mg, Route: IVP, Drug form: INJ, Q6H, Dosing Weight 117.591, kg, PRN Nausea & Vomiting, Start date: 04/12/17 9:57:00 ECONOMICS TEACHER, Duration: 30 day, Stop date: 9:56:00 ECONOMICS TEACHER Start Date: 04/12/17 Stop Date: 04/12/17 Status: Discontinued Saline Flush 0.9% 10 mL, Route: IVP, Drug Form: INJ, Dosing Weight 117.591, kg, PRN, PRN Line Flus h, Start date: 04/12/17 3:26:00 ECONOMICS TEACHER, Duration: 30 day, Stop date: 05/12/17 3:25: 00 ECONOMICS TEACHER Notes: Same as: BD Posiflush Sterile Start Date: 04/12/17 Stop Date: 04/13/17 Status: Discontinued sevelamer 800 mg, 1 tab, Route: PO, Drug form: TAB, TID-Meals, Dosing Weight 117.591, kg, Start date: 04/12/17 17:00:00 ECONOMICS TEACHER, Duration: 30 day, Stop date: 05/12/17 12:00:0 0 ECONOMICS TEACHER Notes: Same as: Renvela Start Date: 04/12/17 Stop Date: 04/13/17 Status: Discontinued Zofran 4 mg, 2 mL, Route: IVP, Drug form: INJ, Q8H, Dosing Weight 117.591, kg, PRN Naus ea, Start date: 04/12/17 11:07:00 ECONOMICS TEACHER, Duration: 30 day, Stop date: 05/12/17 11: 06:00 ECONOMICS TEACHER Notes: (Same as: Zofran) MEDICATION WASTE Product Size: 4 mgProduct Was savana: ___ mg Start Date: 04/12/17 Stop Date: 04/13/17 Status: Discontinued Results ELECTROLYTES Most recent to 1 2 oldest [Reference Range]: Sodium Lvl [135-145 139 mEq/L 137 mEq/L mEq/L] (04/13/17 5:53 AM) (04/12/17 3:47 AM) Potassium Lvl 4.4 mEq/L 4.9 mEq/L [3.5-5.1 mEq/L] (04/13/17 5:53 AM) (04/12/17 3:47 AM) Chloride Lvl [95-109 104 mEq/L 104 mEq/L mEq/L] (04/13/17 5:53 AM) (04/12/17 3:47 AM) CO2 [24-32 mEq/L] 24 mEq/L 23 mEq/L (04/13/17 5:53 AM) *LOW* (04/12/17 3:47 AM) AGAP [10.0-20.0 15.4 mEq/L 14.9 mEq/L mEq/L] (04/13/17 5:53 AM) (04/12/17 3:47 AM) CHEM PANEL Most recent to 1 2 oldest [Reference Range]: Creatinine Lvl 2.86 mg/dL 4.90 mg/dL [0.50-1.40 mg/dL] *HI* *HI* (04/13/17 5:53 AM) (04/12/17 3:47 AM) eGFR 22 mL/min/1.73m2 1 12 mL/min/1.73m2 2 *NA* *NA* (04/13/17 5:53 AM) (04/12/17 3:47 AM) BUN [7-22 mg/dL] 16 mg/dL 41 mg/dL (04/13/17 5:53 AM) *HI* (04/12/17 3:47 AM) Glucose Lvl [70-99 166 mg/dL 213 mg/dL mg/dL] *HI* *HI* (04/13/17 5:53 AM) (04/12/17 3:47 AM) Total Protein 7.6 g/dL [6.4-8.4 g/dL] (04/12/17 3:47 AM) Albumin Lvl [3.5-5.0 2.3 g/dL g/dL] *LOW* (04/12/17 3:47 AM) Globulin [2.7-4.2 5.3 g/dL g/dL] *HI* (04/12/17 3:47 AM) A/G Ratio [0.7-1.6] 0.4 *LOW* (04/12/17 3:47 AM) Calcium Lvl 8.4 mg/dL 8.3 mg/dL [8.5-10.5 mg/dL] *LOW* *LOW* (04/13/17 5:53 AM) (04/12/17 3:47 AM) Phosphorus [2.5-4.5 4.3 mg/dL 7.1 mg/dL mg/dL] (04/13/17 5:53 AM) *HI* (04/12/17 1:01 PM) Magnesium Lvl 1.8 mg/dL 1.8 mg/dL [1.8-2.4 mg/dL] (04/13/17 5:53 AM) (04/12/17 1:01 PM) ALT [0-65 unit/L] 22 unit/L (04/12/17 3:47 AM) AST [0-37 unit/L] 20 unit/L (04/12/17 3:47 AM) Alk Phos [39-136 91 unit/L unit/L] (04/12/17 3:47 AM) Bili Total [0.2-1.3 0.3 mg/dL mg/dL] (04/12/17 3:47 AM) Bili Direct [0.0-0.3 <0.1 mg/dL mg/dL] (04/12/17 3:47 AM) Bili Indirect <0.3 mg/dL [0.0-1.0 mg/dL] *NA* (04/12/17 3:47 AM) Lipase Lvl [73-393 528 unit/L unit/L] *HI* (04/12/17 3:47 AM) 1Result Comment: The eGFR is calculated [...] estimated BMI. CARDIAC ENZYMES Most recent to [Reference Range]: Total CK [12-191 105 unit/L unit/L] (04/12/17 3:47 AM) Troponin-I 0.14 ng/mL 0.16 ng/mL [0.00-0.40 ng/mL] (04/12/17 8:23 AM) (04/12/17 3:47 AM) LIPIDS Most recent to [Reference Range]: CHD Risk [3.90-5.80] 4.94 (04/12/17 1:01 PM) Chol [<=199 mg/dL] 252 mg/dL *HI* (04/12/17 1:01 PM) Trig [<=149 mg/dL] 253 mg/dL *HI* (04/12/17 1:01 PM) HDL [>=61 mg/dL] 51 mg/dL *LOW* (04/12/17 1:01 PM) LDL (Calculated) 150 mg/dL [<=99 mg/dL] *HI* (04/12/17 1:01 PM) VLDL 51 *NA* (04/12/17 1:01 PM) SPECIAL CHEMISTRY Most recent to [Reference Range]: Hgb A1C [<=5.6 %] 7.1 % *HI* (04/12/17 1:01 PM) ANEMIA STUDY Most recent to [Reference Range]: Iron [30-160 ug/dl] 52 ug/dl (04/12/17 1:01 PM) Ferritin Lvl [5-204 391 ng/mL ng/mL] *HI* (04/12/17 1:01 PM) % Satur Fe [12-57 %] 24 % (04/12/17 1:01 PM) UIBC [110-370 ug/dl] 168 ug/dl (04/12/17 1:01 PM) TIBC [228-428 ug/dl] 220 ug/dl *LOW* (04/12/17 1:01 PM) DRUG SCREEN Most recent to 1 2 oldest [Reference Range]: U Amph Scr Negative [Negative] *NA* (04/13/17 3:53 AM) U Esther Scr Negative [Negative] *NA* (04/13/17 3:53 AM) U Benzodia Scr Negative [Negative] *NA* (04/13/17 3:53 AM) U Cocaine Scr Negative [Negative] *NA* (04/13/17 3:53 AM) U Opiate Scr Positive [Negative] *ABN* (04/13/17 3:53 AM) U Phencyc Scr Negative [Negative] *NA* (04/13/17 3:53 AM) U Cannab Scr Negative [Negative] *NA* (04/13/17 3:53 AM) UDS Note See Note (04/13/17 3:53 AM) URINE AND STOOL Most recent to 1 2 oldest [Reference Range]: UA Turbidity [Clear] Clear Clear (04/13/17 3:53 AM) (04/12/17 12:55 PM) UA Color [Yellow] Yellow Yellow *NA* *NA* (04/13/17 3:53 AM) (04/12/17 12:55 PM) UA pH [5.0-8.0] 8.0 (04/13/17 3:53 AM) UA pH [5.0-8.0] 7.0 (04/12/17 12:55 PM) UA Spec Grav 1.007 [<=1.030] (04/13/17 3:53 AM) UA Spec Grav 1.020 [<=1.030] (04/12/17 12:55 PM) UA Glucose [Negative 200 mg/dL 250 mg/dL mg/dL] *ABN* *ABN* (04/13/17 3:53 AM) (04/12/17 12:55 PM) UA Blood [Negative] Negative Small (04/13/17 3:53 AM) *ABN* (04/12/17 12:55 PM) UA Ketones [Negative Negative mg/dL mg/dL] *NA* (04/13/17 3:53 AM) UA Ketones Negative [Negative] *NA* (04/12/17 12:55 PM) UA Protein [Negative >=300 mg/dL >=300 mg/dL mg/dL] *ABN* *ABN* (04/13/17 3:53 AM) (04/12/17 12:55 PM) UA Urobilinogen <=1.0 mg/dL [0.1-1.0 mg/dL] *NA* (04/13/17 3:53 AM) UA Urobilinogen 0.2 EU/dL [0.1-1.0 EU/dL] (04/12/17 12:55 PM) UA Bili [Negative] Negative Negative *NA* *NA* (04/13/17 3:53 AM) (04/12/17 12:55 PM) UA Leuk Est Negative Negative [Negative] (04/13/17 3:53 AM) (04/12/17 12:55 PM) UA Nitrite Negative Negative [Negative] (04/13/17 3:53 AM) (04/12/17 12:55 PM) UA WBC [0-5 /HPF] 2 /HPF (04/13/17 3:53 AM) UA WBC [None Seen 6-10 /HPF /HPF] *ABN* (04/12/17 12:55 PM) UA RBC [0-2 /HPF] 3-5 /HPF *ABN* (04/12/17 12:55 PM) UA Bacteria [None Few /HPF Seen /HPF] (04/12/17 12:55 PM) UA Sq Epi [Few /LPF] Few /LPF Many /LPF *NA* *ABN* (04/13/17 3:53 AM) (04/12/17 12:55 PM) UA Hyal Cast [0-2 1 /LPF /LPF] (04/13/17 3:53 AM) UA Amorph Tamera [None Few /HPF Seen /HPF] *ABN* (04/12/17 12:55 PM) UA Mucus [None Seen Few /LPF /LPF] *NA* (04/13/17 3:53 AM) UA [place] Yeast [None Occasional /HPF Seen /HPF] *ABN* (04/12/17 12:55 PM) IMMUNOLOGY Most recent to 1 2 oldest [Reference Range]: [facility] HIV 4th GEN Negative [Negative] *NA* (04/12/17 1:01 PM) Hep Bs Ag [Negative] Negative *NA* (04/12/17 11:14 AM) Hep B Core IgM Negative [Negative] *NA* (04/12/17 7:57 PM) Hep Bs Ab [<=7.4 413.9 mIU/mL mIU/mL] *HI* (04/12/17 7:57 PM) Hep B Core Ab Negative [Negative] *NA* (04/12/17 7:57 PM) Hep C Ab Negative *NA* (04/12/17 7:57 PM) HEMATOLOGY Most recent to 1 2 oldest [Reference Range]: WBC [3.7-10.4 K/CMM] 5.8 K/CMM 8.1 K/CMM (04/13/17 5:53 AM) (04/12/17 3:47 AM) RBC [4.20-5.40 3.26 M/CMM 3.44 M/CMM M/CMM] *LOW* *LOW* (04/13/17 5:53 AM) (04/12/17 3:47 AM) Hgb [12.0-16.0 g/dL] 9.9 g/dL 10.4 g/dL *LOW* *LOW* (04/13/17 5:53 AM) (04/12/17 3:47 AM) Hct [36.0-48.0 %] 30.0 % 31.3 % *LOW* *LOW* (04/13/17 5:53 AM) (04/12/17 3:47 AM) MCV [80.0-98.0 fL] 91.8 fL 91.0 fL (04/13/17 5:53 AM) (04/12/17 3:47 AM) MCH [27.0-31.0 pg] 30.3 pg 30.2 pg (04/13/17 5:53 AM) (04/12/17 3:47 AM) MCHC [32.0-36.0 33.0 g/dL 33.2 g/dL g/dL] (04/13/17 5:53 AM) (04/12/17 3:47 AM) RDW [11.5-14.5 %] 15.5 % 15.9 % *HI* *HI* (04/13/17 5:53 AM) (04/12/17 3:47 AM) Platelet [133-450 264 K/CMM 317 K/CMM K/CMM] (04/13/17 5:53 AM) (04/12/17 3:47 AM) MPV [7.4-10.4 fL] 8.5 fL 8.5 fL (04/13/17 5:53 AM) (04/12/17 3:47 AM) Segs [45.0-75.0 %] 64.0 % 57.8 % (04/13/17 5:53 AM) (04/12/17 3:47 AM) Lymphocytes 28.6 % 34.4 % [20.0-40.0 %] (04/13/17 5:53 AM) (04/12/17 3:47 AM) Monocytes [2.0-12.0 4.7 % 5.4 % %] (04/13/17 5:53 AM) (04/12/17 3:47 AM) Eosinophils [0.0-4.0 1.7 % 1.5 % %] (04/13/17 5:53 AM) (04/12/17 3:47 AM) Basophils [0.0-1.0 1.0 % 0.9 % %] (04/13/17 5:53 AM) (04/12/17 3:47 AM) Segs-Bands # 3.7 K/CMM 4.7 K/CMM [1.5-8.1 K/CMM] (04/13/17 5:53 AM) (04/12/17 3:47 AM) Lymphocytes # 1.6 K/CMM 2.8 K/CMM [1.0-5.5 K/CMM] (04/13/17 5:53 AM) (04/12/17 3:47 AM) Monocytes # [0.0-0.8 0.3 K/CMM 0.4 K/CMM K/CMM] (04/13/17 5:53 AM) (04/12/17 3:47 AM) Eosinophils # 0.1 K/CMM 0.1 K/CMM [0.0-0.5 K/CMM] (04/13/17 5:53 AM) (04/12/17 3:47 AM) Basophils # [0.0-0.2 0.1 K/CMM 0.1 K/CMM K/CMM] (04/13/17 5:53 AM) (04/12/17 3:47 AM) PT [12.0-14.7 12.5 seconds seconds] (04/12/17 3:47 AM) INR [0.85-1.17] 0.93 (04/12/17 3:47 AM) PTT [22.9-35.8 30.1 seconds seconds] (04/12/17 3:47 AM) Immunizations Given and Recorded Vaccine Date [...] Days No; Reg Smoking Cessation Counseling No 1pt denies current alcohol use Assessment and Plan Extracted from: Title: History and Physical Author: Yosi Strickland Date: 04/12/17 41 y/o F with DMII complicated by gastro paresis, HTN, and ESRD who presents with abdominal pain, N/V, and SOB. # Hypertensive Emergency - controlled in ED with nitroprusside ip - restarted home medications: nifedipi ne 90mg QD, carvedilol 25mg Q12h, PO Lasix 40mg BID, PO hydralazine 75mg TID # Abdominal Pain - history of gastroparesis - surgical history of cholecystectomy an d abdominal hernia repair - Tx: metoclopramide 10mg IV q8h # Diabetes mellitus type II - put on SSI and low carb diet # ESRD - , , Mon dialysis schedule - missed Monday's dialysis - on dialysis schedule today Code: Full Diet: Adult Renal, 2g carb Proph: Ambulation Dispo: Home once medically stable Addendum by Fatoumata, ATTENDING NOTE: Naeem Reyna MD on I saw and examined [facility], reviewed the labs and radiographic 04/12/2017 data, and agree with this n ote. 19:56 [employer] Naeem Ham MD, FACP, FASN, FCCM
--- OUTSIDE RECORDS SUMMARY | 2019-09-10 20:11 | XMS REPORT | Summary of Care ---
Author Author [facility] spital Organization [facility] Address Unknown Phone Unavailable Encounter PRIMITIVO Mariano(SANGITA) [id number] Date(s): 06/14/17 - 06/16/17 [facility] [address] [place] [address]- [facility] [phone] Encounter Diagnosis Fluid overload, unspecified (Final) - 06/21/17 End stage renal disease (Final) - Hypertensive heart and chronic kidney disease with heart failure and with stage 5 chronic kidney disease, or end stage renal disease (Final) - Type 2 diabetes mellitus with diabetic chronic kidney disease (Final) - Acidosis (Final) - Gastroparesis (Final) - Type 2 diabetes mellitus with diabetic autonomic (poly)neuropathy (Final) - Left ventricular failure, unspecified (Final) - Anxiety disorder, unspecified (Final) - Hyperlipidemia, unspecified (Final) - Other constipation (Final) - Hypertensive urgency (Final) - Pure hypercholesterolemia, unspecified (Final) - Hyperkalemia (Final) - Anemia in chronic kidney disease (Final) - Patient's noncompliance with renal dialysis (Final) - Dependence on renal dialysis (Final) - Patient's other noncompliance with medication regimen (Final) - 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) - 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) - Discharge Disposition: Home or Self Care Attending Physician: Neftali Nichole MD Admitting Physician: Neftali Nichole MD Vital Signs 1 2 3 Most recent to oldest [Reference Range]: 170.18 cm (06/14/17 10:42 AM) Height 98.2 DegF (06/16/17 11:54 AM) 98 DegF (06/16/17 8:03 AM) 98.7 DegF (06/16/17 4:09 AM) Temperature Oral [96.4-99.1 DegF] 138/72 mmHg (06/16/17 11:54 AM) 101/69 mmHg (06/16/17 8:03 AM) 125/82 mmHg (06/16/17 4:09 AM) Blood Pressure [90-140/60-90 mmHg] 18 BRMIN (06/16/17 11:54 AM) 16 BRMIN (06/16/17 8:03 AM) 18 BRMIN (06/16/17 6:48 AM) Respiratory Rate [14-20 BRMIN] 101 bpm *HI* (06/16/17 11:54 AM) 98 bpm (06/16/17 8:03 AM) 98 bpm (06/16/17 4:09 AM) Peripheral Pulse Rate [60-100 bpm] 105 kg (06/14/17 10:42 AM) Weight 36.26 m2 (06/14/17 10:42 AM) Body Mass Index Problem List Condition [...] Alerts Substance Reaction Severity Status Tylenol Active [place] Active NKDA Active Medications acetaminophen 650 mg, 2 tab, Route: PO, Drug form: TAB, Q4H, Dosing Weight 105, kg, PRN Pain 1 -3/Temp > 100.4 F, Start date: 06/14/17 15:03:00 CREEL SELECTOR, Duration: 30 day, Stop date: 07/14/17 15:02:00 CDT Notes: Do not exceed 4 gm/day. (Same as: Tylenol) Start Date: 06/14/17 Stop Date: 06/16/17 Status: Discontinued Advocate Arm Blood Pressure Monitor 1 ea, MISC, ONCE, # 1 ea, 0 Refill(s) Start Date: 06/16/17 Stop Date: 08/16/17 Status: Completed atorvastatin 40 mg, 1 tab, Route: PO, Drug form: TAB, Bedtime, Dosing Weight 105, kg, Start d ate: 06/14/17 21:00:00 CREEL SELECTOR, Duration: 30 day, Stop date: 07/13/17 21:00:00 CDT Notes: (Same as: Lipitor) Start Date: 06/14/17 Stop Date: 06/16/17 Status: Discontinued atorvastatin 40 mg oral tablet 40 mg = 1 tab, PO, Bedtime, # 30 tab, 0 Refill(s), Pharmacy: [facility] e [id number] Start Date: 06/16/17 Stop Date: 08/16/17 Status: Completed calcium chloride + Sodium Chloride 0.9% IV 50 mL 2,000 mg, 20 mL, Route: IVPB, ONCE, Dosing Weight 105, kg, Start date: 06/16/17 8:54:00 CREEL SELECTOR, Stop date: 06/16/17 8:54:00 CREEL SELECTOR Notes: WASTE: F/P - Sink; E - Municipal Trash Bin Start Date: 06/16/17 Stop Date: 06/16/17 Status: Deleted calcium gluconate + Sodium Chloride 0.9% IV 100 mL 2,000 mg, 20 mL, Route: IVPB, ONCE, Dosing Weight 105, kg, Start date: 06/16/17 6:47:00 CREEL SELECTOR, Stop date: 06/16/17 6:47:00 CREEL SELECTOR Notes: WASTE: F/P - Sink; E - Municipal Trash Bin Start Date: 06/16/17 Stop Date: 06/16/17 Status: Completed carvedilol 25 mg, 2 tab, Route: PO, Drug form: TAB, Q12H, Dosing Weight 105, kg, Start date : 06/14/17 21:00:00 CREEL SELECTOR, Duration: 30 day, Stop date: 07/14/17 9:00:00 CDT Notes: Give with food. (Same As: Coreg) Start Date: 06/14/17 Stop Date: 06/16/17 Status: Discontinued Dextrose 50% Syringe 12.5 gm, 25 mL, Route: IVP, Drug Form: INJ, Dosing Weight 105, kg, PRN, PRN Bloo d Glucose Results, Start date: 06/14/17 16:14:00 CREEL SELECTOR, Duration: 30 day, Stop harish e: 07/14/17 17:13:00 CDT Start Date: 06/14/17 Stop Date: 06/16/17 Status: Discontinued Dextrose 50% Syringe 25 gm, 50 mL, Route: IVP, Drug Form: INJ, Dosing Weight 105, kg, PRN, PRN Blood Glucose Results, Start date: 06/14/17 16:14:00 CREEL SELECTOR, Duration: 30 day, Stop date: 07/14/17 17:13:00 CDT Start Date: 06/14/17 Stop Date: 06/16/17 Status: Discontinued Dilaudid 1 mg, 1 mL, Route: IVP, Drug form: SOLN, ONCE, Dosing Weight 105, kg, Priority: STAT, Start date: 06/14/17 14:05:00 CREEL SELECTOR, Stop date: 06/14/17 14:05:00 CREEL SELECTOR Notes: (Same as: Dilaudid) Start Date: 06/14/17 Stop Date: 06/14/17 Status: Completed Dilaudid 1 mg, 1 mL, Route: IV, Drug form: SOLN, ONCE, Dosing Weight 105, kg, Priority: S TAT, Start date: 06/15/17 10:18:00 CREEL SELECTOR, Stop date: 06/15/17 10:18:00 CREEL SELECTOR Notes: (Same as: Dilaudid) Start Date: 06/15/17 Stop Date: 06/15/17 Status: Completed docusate 100 mg, 1 cap, Route: PO, Drug form: CAP, BID, Dosing Weight 105, kg, PRN as nee ded for constipation, Start date: 06/14/17 15:03:00 CREEL SELECTOR, Duration: 30 day, Stop date: 07/14/17 15:02:00 CDT Notes: (Same as: Colace) (Do Not Crush) Start Date: 06/14/17 Stop Date: 06/16/17 Status: Discontinued docusate sodium 100 mg oral capsule 100 mg = 1 cap, PO, BID, PRN as needed for constipation, # 12 cap, 0 Refill(s), Pharmacy: [facility] [id number] Start Date: 06/16/17 Stop Date: 08/16/17 Status: Completed DuoNeb inhalation solution 3 ml, Route: NEB, Drug Form: SOLN, Dosing Weight 105, kg, PRN, PRN Respiratory P rotocol, Start date: 06/15/17 10:51:00 CREEL SELECTOR, Duration: 30 day, Stop date: 8 11:50:00 CDT Notes: (Same as: Duoneb) Start Date: 06/15/17 Stop Date: 06/16/17 Status: Discontinued famotidine 20 mg, Route: IVP, ONCE, Dosing Weight 105, kg, Priority: STAT, Start date: 05/26 05/11 11:17:00 CREEL SELECTOR, Stop date: 06/14/17 11:17:00 CREEL SELECTOR Start Date: 06/14/17 Stop Date: 06/14/17 Status: Completed glucagon 1 mg, Route: IM, Drug form: PDR/INJ, PRN, Dosing Weight 105, kg, PRN Blood Gluco se Results, Start date: 06/14/17 16:14:00 CREEL SELECTOR, Duration: 30 day, Stop date: 06/23 07/09 17:13:00 CDT Start Date: 06/14/17 Stop Date: 06/16/17 Status: Discontinued heparin 10,000 unit, 10 mL, Route: DIALYSIS, Drug form: INJ, ONCALL, Dosing Weight 105, kg, Start date: 06/15/17 11:00:00 CREEL SELECTOR, Duration: 1 doses or times Start Date: 06/15/17 Stop Date: 06/16/17 Status: Discontinued heparin 10,000 unit, 10 mL, Route: DIALYSIS, Drug form: INJ, ONCALL, Dosing Weight 105, kg, Start date: 06/16/17 9:00:00 CREEL SELECTOR, Duration: 1 doses or times Start Date: 06/16/17 Stop Date: 06/16/17 Status: Discontinued heparin 5000 units/mL injectable solution 5,000 unit, 1 mL, Route: SUB-Q, Drug form: INJ, Q12H, Dosing Weight 105, kg, Sta rt date: 06/14/17 21:00:00 CREEL SELECTOR, Duration: 30 day, Stop date: 07/14/17 9:00:00 CD T Notes: porcine heparin Start Date: 06/14/17 Stop Date: 06/16/17 Status: Discontinued hydrALAZINE 10 mg, 0.5 mL, Route: IVP, Drug form: INJ, Q6H, Dosing Weight 105, kg, PRN Hyper tension, Start date: 06/14/17 19:57:00 CREEL SELECTOR, Duration: 30 day, Stop date: 8 19:56:00 CDT, for HTN, SBP > 180 or DBP > 110 Notes: (Same as: Apresoline)Push over 5 minutes Start Date: 06/14/17 Stop Date: 06/16/17 Status: Discontinued hydrALAZINE 25 mg oral tablet 75 mg, 3 tab, Route: PO, Drug form: TAB, TID, Dosing Weight 105, kg, Start date: 06/14/17 17:00:00 CREEL SELECTOR, Duration: 30 day, Stop date: 07/14/17 13:00:00 CDT Notes: (Same as: Apresoline) May interfere w/enteral feedings Take With Food. Start Date: 06/14/17 Stop Date: 06/16/17 Status: Discontinued hydrALAZINE 25 mg oral tablet 75 mg = 3 tab, PO, TID, # 270 tab, 0 Refill(s), Pharmacy: [facility] [id number] Start Date: 06/16/17 Stop Date: 06/16/17 Status: Discontinued hydrALAZINE 50 mg oral tablet 50 mg = 1 tab, PO, TID, # 90 tab, 0 Refill(s), Pharmacy: [facility] [id number], Updated order with hydralazine 50 mg 3 times daily. Discontinue hydralazin e 75 mg 3 times daily Start Date: 06/16/17 Stop Date: 08/16/17 Status: Completed hydromorphone 1 mg, Route: IVP, ONCE, Dosing Weight 105, kg, Priority: STAT, Start date: 06/14 11:17:00 CREEL SELECTOR, Stop date: 06/14/17 11:17:00 CREEL SELECTOR Start Date: 06/14/17 Stop Date: 06/14/17 Status: Completed insulin lispro 2 unit, 0.02 mL, Route: SUB-Q, Drug form: SOLN, TID-Before Meals, Dosing Weight 105, kg, PRN Blood Glucose Results, Start date: 06/14/17 16:14:00 CREEL SELECTOR, Duration: 30 day, Stop date: 07/14/17 16:13:00 CDT Notes: (Same as: Humalog ) Roll in palms of hands gently; Do not shake `vigorou sly. "Single Patient Use Only " WASTE: F/P - Black; E - Municipal Trash Bin St able for 28 days at room temperature.Expires in days from Da te Start Date: 06/14/17 Stop Date: 06/16/17 Status: Discontinued insulin lispro 4 unit, 0.04 mL, Route: SUB-Q, Drug form: SOLN, TID-Before Meals, Dosing Weight 105, kg, PRN Blood Glucose Results, Start date: 06/14/17 16:14:00 CREEL SELECTOR, Duration: 30 day, Stop date: 07/14/17 16:13:00 CDT Notes: (Same as: Humalog ) Roll in palms of hands gently; Do not shake `vigorou sly. "Single Patient Use Only " WASTE: F/P - Black; E - Municipal Trash Bin St able for 28 days at room temperature.Expires in days from Da te Start Date: 06/14/17 Stop Date: 06/16/17 Status: Discontinued insulin lispro 6 unit, 0.06 mL, Route: SUB-Q, Drug form: SOLN, TID-Before Meals, Dosing Weight 105, kg, PRN Blood Glucose Results, Start date: 06/14/17 16:14:00 CREEL SELECTOR, Duration: 30 day, Stop date: 07/14/17 16:13:00 CDT Notes: (Same as: Humalog ) Roll in palms of hands gently; Do not shake `vigorou sly. "Single Patient Use Only " WASTE: F/P - Black; E - Municipal Trash Bin St able for 28 days at room temperature.Expires in days from Da te Start Date: 06/14/17 Stop Date: 06/16/17 Status: Discontinued insulin lispro 8 unit, 0.08 mL, Route: SUB-Q, Drug form: SOLN, TID-Before Meals, Dosing Weight 105, kg, PRN Blood Glucose Results, Start date: 06/14/17 16:14:00 CREEL SELECTOR, Duration: 30 day, Stop date: 07/14/17 16:13:00 CDT Notes: (Same as: Humalog ) Roll in palms of hands gently; Do not shake `vigorou sly. "Single Patient Use Only " WASTE: F/P - Black; E - Municipal Trash Bin St able for 28 days at room temperature.Expires in days from Da te Start Date: 06/14/17 Stop Date: 06/16/17 Status: Discontinued insulin lispro 10 unit, 0.1 mL, Route: SUB-Q, Drug form: SOLN, TID-Before Meals, Dosing Weight 105, kg, PRN Blood Glucose Results, Start date: 06/14/17 16:14:00 CREEL SELECTOR, Duration: 30 day, Stop date: 07/14/17 16:13:00 CDT Notes: (Same as: Humalog ) Roll in palms of hands gently; Do not shake `vigorou sly. "Single Patient Use Only " WASTE: F/P - Black; E - Municipal Trash Bin St able for 28 days at room temperature.Expires in days from Da te Start Date: 06/14/17 Stop Date: 06/16/17 Status: Discontinued lactulose 10 g/15 mL oral syrup 20 gm, 30 ml, Route: PO, Drug form: SYRP, BID, Dosing Weight 105, kg, Start date : 06/15/17 9:00:00 CREEL SELECTOR, Duration: 30 day, Stop date: 07/14/17 17:00:00 CDT Notes: (Same as:Chronulac) Start Date: 06/15/17 Stop Date: 06/16/17 Status: Discontinued Lasix 40 mg oral tablet 40 mg, 1 tab, Route: PO, Drug form: TAB, BID, Dosing Weight 105, kg, Start date: 06/14/17 17:00:00 CREEL SELECTOR, Duration: 30 day, Stop date: 07/14/17 9:00:00 CDT Notes: (Same as: Lasix) May cause GI upset. Give with food or milk. Start Date: 06/14/17 Stop Date: 06/16/17 Status: Discontinued Lasix 40 mg oral tablet 40 mg = 1 tab, PO, BID, # 60 tab, 0 Refill(s), Pharmacy: [facility] [id number] Start Date: 06/16/17 Stop Date: 08/16/17 Status: Completed metoclopramide 5 mg oral tablet 5 mg = 1 tab, PO, QID-Before Meals, X 14 day, # 56 tab, 0 Refill(s), Pharmacy: [facility] [id number] Start Date: 06/16/17 Stop Date: 06/30/17 Status: Completed MiraLax 17 gm, 1 pkt, Route: PO, Drug form: PWDR, BID, Dosing Weight 105, kg, Start date : 06/15/17 9:00:00 CREEL SELECTOR, Duration: 30 day, Stop date: 07/14/17 17:00:00 CDT Notes: Dissolve in 8 oz of water or juice.(Same as: Miralax) Start Date: 06/15/17 Stop Date: 06/16/17 Status: Discontinued morphine Sulfate 2 mg, 2 mL, Route: IVP, Drug form: SOLN, Q4H, Dosing Weight 105, kg, PRN Pain Sc ore 7-10, Start date: 06/14/17 15:03:00 CREEL SELECTOR, Duration: 30 day, Stop date: 15:02:00 CDT Notes: Preservative free. (Same as: Morphine Sulfate-PF) Start Date: 06/14/17 Stop Date: 06/16/17 Status: Discontinued NIFEdipine 90 mg oral tablet, extended release 90 mg, 3 tab, Route: PO, Drug form: ERTAB, Daily, Dosing Weight 105, kg, Start d ate: 06/15/17 9:00:00 CREEL SELECTOR, Duration: 30 day, Stop date: 07/14/17 9:00:00 CDT Notes: (Same as: Adalat CC, Procardia XL) Give on empty stomach. Take 1 hour be fore or 2 hours after meal; "Avoid grapefruit and grapefruit juice". Do not cru sh Start Date: 06/15/17 Stop Date: 06/16/17 Status: Discontinued NIFEdipine 90 mg oral tablet, extended release 90 mg = 1 tab, PO, Daily, # 30 tab, 0 Refill(s), Pharmacy: [facility] [id number] Start Date: 06/16/17 Stop Date: 08/16/17 Status: Completed [place] 5/325 oral tablet 1 tab, Route: PO, Drug Form: TAB, Dosing Weight 105, kg, Q4H, PRN Pain Score 4-6 , Start date: 06/16/17 1:05:00 CREEL SELECTOR, Duration: 30 day, Stop date: 07/16/17 1:04:0 0 CDT Notes: (Same as: [place] 325/5) Do not exceed 4gm/day of acetaminophen. Start Date: 06/16/17 Stop Date: 06/16/17 Status: Discontinued normal saline 0.9% IV 2,000 mL 2,000 mL, Rate: 999 ml/hr, Infuse over: 2 hr, Route: DIALYSIS, Dosing Weight 105 kg, Total Volume: 2,000, Priority: NOW, Start date: 06/15/17 8:05:00 CREEL SELECTOR, Durat ion: 30 day, Stop date: 07/15/17 8:04:00 CDT, 2.26, m2 Start Date: 06/15/17 Stop Date: 06/16/17 Status: Discontinued NS (Bolus) IV 250 mL, 8.33 ml/hr, Infuse Over: 30 hr, Route: IV, 250, Drug form: INJ, ONCE, Do sing Weight 105 kg, Start date: 06/16/17 10:00:00 CREEL SELECTOR, Stop date: 06/16/17 10:00 :00 CREEL SELECTOR Start Date: 06/16/17 Stop Date: 06/16/17 Status: Completed ondansetron 4 mg, 2 mL, Route: IVP, Drug form: INJ, Q6H, Dosing Weight 105, kg, PRN Nausea & Vomiting, Start date: 06/14/17 15:03:00 CREEL SELECTOR, Duration: 30 day, Stop date: 07/14 15:02:00 CDT Notes: (Same as: Zofran) MEDICATION WASTE Product Size: 4 mgProduct Was savana: ___ mg Start Date: 06/14/17 Stop Date: 06/16/17 Status: Discontinued ondansetron 4 mg, Route: IVP, ONCE, Dosing Weight 105, kg, Priority: STAT, Start date: 06/14 11:17:00 CREEL SELECTOR, Stop date: 06/14/17 11:17:00 CREEL SELECTOR Start Date: 06/14/17 Stop Date: 06/14/17 Status: Completed pantoprazole 40 mg, 1 tab, Route: PO, Drug form: ECTAB, Before Breakfast, Dosing Weight 105, kg, Start date: 06/15/17 7:30:00 CREEL SELECTOR, Duration: 30 day, Stop date: 07/14/17 7:30 :00 CDT Notes: Tablet should not be chewed or crushed.(Same as: Protonix) Start Date: 06/15/17 Stop Date: 06/16/17 Status: Discontinued pantoprazole 40 mg oral enteric coated tablet 40 mg = 1 tab, PO, Before Breakfast, # 30 tab, 0 Refill(s), Pharmacy: [facility] [id number] Start Date: 06/16/17 Stop Date: 08/16/17 Status: Completed Phenergan + Sodium Chloride 0.9% IV 50 mL 12.5 mg, 0.5 mL, Route: IVPB, Q4H, Dosing Weight 105, kg, PRN Nausea & Vomiting, Start date: 06/14/17 17:01:00 CREEL SELECTOR, Duration: 30 day, Stop date: 07/14/17 17:00:00 CDT Notes: Do not give IV push. (Same as: Phenergan) Start Date: 06/14/17 Stop Date: 06/16/17 Status: Discontinued polyethylene glycol 3350 oral powder for reconstitution 17 gm, PO, BID, X 7 day, # 12 ea, 0 Refill(s), Pharmacy: [facility] [id number] Start Date: 06/16/17 Stop Date: 06/23/17 Status: Completed Reglan 5 mg, Route: IV, ONCE, Dosing Weight 105, kg, Start date: 06/14/17 14:37:00 CREEL SELECTOR, Stop date: 06/14/17 14:37:00 CREEL SELECTOR Start Date: 06/14/17 Stop Date: 06/14/17 Status: Completed Reglan 5 mg, 1 tab, Route: PO, Drug form: TAB, Q6H, Dosing Weight 105, kg, Start date: 06/14/17 18:00:00 CREEL SELECTOR, Stop date: 07/14/17 12:00:00 CDT Notes: (Same as: Reglan) Take 30 min before meals Start Date: 06/14/17 Stop Date: 06/16/17 Status: Discontinued Saline Flush 0.9% 10 mL, Route: IVP, Drug Form: INJ, Dosing Weight 105, kg, PRN, PRN Line Flush, S tart date: 06/14/17 11:17:00 CREEL SELECTOR, Duration: 30 day, Stop date: 07/14/17 12:16:00 CDT Notes: (Same as: BD Posiflush) Start Date: 06/14/17 Stop Date: 06/16/17 Status: Discontinued sodium chloride 0.9% (Priming and Maintenance) 2,000 mL, 0 ml/hr, Infuse Over: 0 hr, Route: IV, 2,000, Drug form: INJ, PRN, Dos ing Weight 105 kg, Start date: 06/14/17 18:22:00 CREEL SELECTOR, Duration: 24 hr, Stop date : 06/15/17 18:21:00 CREEL SELECTOR, For Use by Dialysis nurse ONLY, PRN Dialysis Start Date: 06/14/17 Stop Date: 06/15/17 Status: Completed sodium chloride 0.9% (Priming and Maintenance) 2,000 mL, 0 ml/hr, Infuse Over: 0 hr, Route: DIALYSIS, 2,000, Drug form: INJ, NM N, Dosing Weight 105 kg, Start date: 06/16/17 8:35:00 CREEL SELECTOR, Duration: 24 hr, Stop date: 06/17/17 8:34:00 CREEL SELECTOR, For Use by Dialysis nurse ONLY, PRN Dialysis Start Date: 06/16/17 Stop Date: 06/16/17 Status: Discontinued tramadol 50 mg, 1 tab, Route: PO, Drug form: TAB, BID, Dosing Weight 105, kg, PRN Pain Sc ore 6-10, Start date: 06/16/17 8:32:00 CREEL SELECTOR, Duration: 30 day, Stop date: 8 8:31:00 CDT Notes: Not to exceed 400mg/day. (Same As: Ultram) Start Date: 06/16/17 Stop Date: 06/16/17 Status: Discontinued tramadol 50 mg oral tablet 50 mg, Route: PO, Drug form: TAB, Q6H, Dosing Weight 105, kg, PRN, Start date: 0 06/15/17 23:16:00 CREEL SELECTOR, Duration: 30 day, Stop date: 07/15/17 23:15:00 CDT, Pain S core 1-6 Start Date: 06/15/17 Stop Date: 06/16/17 Status: Deleted tramadol 50 mg oral tablet 50 mg = 1 tab, PO, Q8H, PRN Pain Score 6-10, X 5 day, # 15 tab, 0 Refill(s) Start Date: 06/16/17 Stop Date: 06/21/17 Status: Completed Xanax 0.5 mg oral tablet 0.5 mg = 1 tab, PO, BID, PRN Anxiety, X 3 day, # 5 tab, 0 Refill(s) Start Date: 06/16/17 Stop Date: 06/19/17 Status: Completed Xanax 0.5 mg oral tablet 0.5 mg, 1 tab, Route: PO, Drug form: TAB, BID, Dosing Weight 105, kg, PRN Anxiet y, Start date: 06/16/17 8:47:00 CREEL SELECTOR, Duration: 30 day, Stop date: 07/16/17 8:46: 00 CDT Notes: With food or milk(Same as: Xanax) Start Date: 06/16/17 Stop Date: 06/16/17 Status: Discontinued Results BLOOD BANK RESULTS 1 2 3 Most recent to oldest [Reference Range]: A POS *Unknown* (06/16/17 7:04 AM) ABO/Rh Negative (06/16/17 7:04 AM) Antibody Scrn Product available 1 (06/16/17 8:15 AM) RBC product 1Result Comment: 06/16/2017 08:16 [id number] Blood available, notified dian Clarke at 06/16/2017 08:16_ by _LL. ELECTROLYTES 1 2 3 Most recent to oldest [Reference Range]: 137 mEq/L (06/16/17 3:47 AM) 141 mEq/L (06/15/17 3:41 AM) 143 mEq/L (06/14/17 11:24 AM) Sodium Lvl [135-145 mEq/L] 3.7 mEq/L (06/16/17 3:47 AM) 4.7 mEq/L (06/15/17 3:41 AM) 5.2 mEq/L *HI* (06/14/17 11:24 AM) Potassium Lvl [3.5-5.1 mEq/L] 104 mEq/L (06/16/17 3:47 AM) 111 mEq/L *HI* (06/15/17 3:41 AM) 114 mEq/L *HI* (06/14/17 11:24 AM) Chloride Lvl [95-109 mEq/L] 25 mEq/L (06/16/17 3:47 AM) 23 mEq/L *LOW* (06/15/17 3:41 AM) 17 mEq/L *LOW* (06/14/17 11:24 AM) CO2 [24-32 mEq/L] 11.7 mEq/L (06/16/17 3:47 AM) 11.7 mEq/L (06/15/17 3:41 AM) 17.2 mEq/L (06/14/17 11:24 AM) AGAP [10.0-20.0 mEq/L] CHEM PANEL 1 2 3 Most recent to oldest [Reference Range]: 3.83 mg/dL *HI* (06/16/17 3:47 AM) 4.30 mg/dL *HI* (06/15/17 3:41 AM) 5.65 mg/dL *HI* (06/14/17 11:24 AM) Creatinine Lvl [0.50-1.40 mg/dL] 16 mL/min/1.73m2 1 *NA* (06/16/17 3:47 AM) 14 mL/min/1.73m2 2 *NA* (06/15/17 3:41 AM) 10 mL/min/1.73m2 3 *NA* (06/14/17 11:24 AM) eGFR 27 mg/dL *HI* (06/16/17 3:47 AM) 40 mg/dL *HI* (06/15/17 3:41 AM) 51 mg/dL *HI* (06/14/17 11:24 AM) BUN [7-22 mg/dL] 9 (06/14/17 11:24 AM) B/C Ratio [6-25] 179 mg/dL *HI* (06/16/17 3:47 AM) 92 mg/dL (06/15/17 3:41 AM) 147 mg/dL *HI* (06/14/17 11:24 AM) Glucose Lvl [70-99 mg/dL] 6.9 g/dL (06/14/17 11:24 AM) Total Protein [6.4-8.4 g/dL] 2.3 g/dL *LOW* (06/16/17 3:47 AM) 2.4 g/dL *LOW* (06/14/17 11:24 AM) Albumin Lvl [3.5-5.0 g/dL] 4.5 g/dL *HI* (06/14/17 11:24 AM) Globulin [2.7-4.2 g/dL] 0.5 *LOW* (06/14/17 11:24 AM) A/G Ratio [0.7-1.6] 7.6 mg/dL *LOW* (06/16/17 12:31 PM) 5.1 mg/dL 4 *CRIT* (06/16/17 3:47 AM) 7.5 mg/dL *LOW* (06/15/17 3:41 AM) Calcium Lvl [8.5-10.5 mg/dL] 1.9 mg/dL (06/15/17 3:41 AM) Magnesium Lvl [1.8-2.4 mg/dL] 9 unit/L (06/14/17 11:24 AM) ALT [0-65 unit/L] 9 unit/L (06/14/17 11:24 AM) AST [0-37 unit/L] 86 unit/L (06/14/17 11:24 AM) Alk Phos [39-136 unit/L] 0.2 mg/dL (06/14/17 11:24 AM) Bili Total [0.2-1.3 mg/dL] 398 unit/L *HI* (06/14/17 11:24 AM) Lipase Lvl [73-393 unit/L] 1Result Comment: [...] tiplied by the estimated BMI. 4Result Comment: Critical Result(s) called to Prisca Sequeira at 0445_ by_JJ. Read back OK. CARDIAC ENZYMES 1 2 3 Most recent to oldest [Reference Range]: 222 unit/L *HI* (06/14/17 11:24 AM) Total CK [12-191 unit/L] 3.3 ng/mL (06/14/17 11:24 AM) CK MB [0.5-3.6 ng/mL] 1.5 (06/14/17 11:24 AM) CK MB Index [0.0-2.5] 0.04 ng/mL (06/14/17 11:24 AM) Troponin-I [0.00-0.40 ng/mL] ENDOCRINOLOGY 1 2 3 Most recent to oldest [Reference Range]: Negative *NA* (06/14/17 11:24 AM) S Preg [Negative] URINE AND STOOL 1 2 3 Most recent to oldest [Reference Range]: Slight *ABN* (06/15/17 8:46 PM) UA Turbidity [Clear] Yellow *NA* (06/15/17 8:46 PM) UA Color [Yellow] 5.0 (06/15/17 8:46 PM) UA pH [5.0-8.0] 1.013 (06/15/17 8:46 PM) UA Spec Grav [<=1.030] 50 mg/dL *NA* (06/15/17 8:46 PM) UA Glucose Negative (06/15/17 8:46 PM) UA Blood [Negative] Negative mg/dL *NA* (06/15/17 8:46 PM) UA Ketones [Negative mg/dL] >=300 mg/dL *ABN* (06/15/17 8:46 PM) UA Protein [Negative mg/dL] <=1.0 mg/dL *NA* (06/15/17 8:46 PM) UA Urobilinogen [0.1-1.0 mg/dL] Negative *NA* (06/15/17 8:46 PM) UA Bili [Negative] Negative (06/15/17 8:46 PM) UA Leuk Est [Negative] Negative (06/15/17 8:46 PM) UA Nitrite [Negative] 3 /HPF (06/15/17 8:46 PM) UA WBC [0-5 /HPF] 1 /HPF (06/15/17 8:46 PM) UA RBC [0-2 /HPF] Moderate /LPF *ABN* (06/15/17 8:46 PM) UA Sq Epi [Few /LPF] Few /LPF *NA* (06/15/17 8:46 PM) UA Mucus [None Seen /LPF] Occasional /HPF *ABN* (06/15/17 8:46 PM) UA [place] Yeast [None Seen /HPF] IMMUNOLOGY 1 2 3 Most recent to oldest [Reference Range]: Negative *NA* (06/16/17 1:30 PM) Negative *NA* (06/15/17 3:41 AM) Hep Bs Ag [Negative] Negative *NA* (06/16/17 1:30 PM) Hep B Core IgM [Negative] 317.4 mIU/mL *HI* (06/16/17 1:30 PM) Hep Bs Ab [<=7.4 mIU/mL] Negative *NA* (06/16/17 1:30 PM) Hep B Core Ab [Negative] Negative *NA* (06/16/17 1:30 PM) Hep C Ab HEMATOLOGY 1 2 3 Most recent to oldest [Reference Range]: 5.3 K/CMM (06/16/17 3:47 AM) 6.2 K/CMM (06/15/17 3:41 AM) 9.1 K/CMM (06/14/17 11:24 AM) WBC [3.7-10.4 K/CMM] 2.18 M/CMM *LOW* (06/16/17 3:47 AM) 2.48 M/CMM *LOW* (06/15/17 3:41 AM) 2.62 M/CMM *LOW* (06/14/17 11:24 AM) RBC [4.20-5.40 M/CMM] 7.3 g/dL *LOW* (06/16/17 1:30 PM) 15.9 g/dL (06/16/17 12:31 PM) 6.7 g/dL 1 *CRIT* (06/16/17 3:47 AM) Hgb [12.0-16.0 g/dL] 21.5 % *LOW* (06/16/17 1:30 PM) 19.7 % *CRIT* (06/16/17 3:47 AM) 22.5 % *LOW* (06/15/17 3:41 AM) Hct [36.0-48.0 %] 90.3 fL (06/16/17 3:47 AM) 90.8 fL (06/15/17 3:41 AM) 90.5 fL (06/14/17 11:24 AM) MCV [80.0-98.0 fL] 30.8 pg (06/16/17 3:47 AM) 30.0 pg (06/15/17 3:41 AM) 30.2 pg (06/14/17 11:24 AM) MCH [27.0-31.0 pg] 34.1 g/dL (06/16/17 3:47 AM) 33.0 g/dL (06/15/17 3:41 AM) 33.3 g/dL (06/14/17 11:24 AM) MCHC [32.0-36.0 g/dL] 14.9 % *HI* (06/16/17 3:47 AM) 14.9 % *HI* (06/15/17 3:41 AM) 14.9 % *HI* (06/14/17 11:24 AM) RDW [11.5-14.5 %] 8.7 fL (06/16/17 3:47 AM) 8.8 fL (06/15/17 3:41 AM) 8.2 fL (06/14/17 11:24 AM) MPV [7.4-10.4 fL] 240 K/CMM (06/16/17 3:47 AM) 262 K/CMM (06/15/17 3:41 AM) 306 K/CMM (06/14/17 11:24 AM) Platelet [133-450 K/CMM] 56.2 % (06/16/17 3:47 AM) 55.2 % (06/15/17 3:41 AM) 69.0 % (06/14/17 11:24 AM) Segs [45.0-75.0 %] 32.0 % (06/16/17 3:47 AM) 30.9 % (06/15/17 3:41 AM) 20.0 % (06/14/17 11:24 AM) Lymphocytes [20.0-40.0 %] 8.1 % (06/16/17 3:47 AM) 9.7 % (06/15/17 3:41 AM) 7.0 % (06/14/17 11:24 AM) Monocytes [2.0-12.0 %] 2.9 % (06/16/17 3:47 AM) 3.4 % (06/15/17 3:41 AM) 2.8 % (06/14/17 11:24 AM) Eosinophils [0.0-4.0 %] 0.8 % (06/16/17 3:47 AM) 0.8 % (06/15/17 3:41 AM) 1.2 % *HI* (06/14/17 11:24 AM) Basophils [0.0-1.0 %] 3.0 K/CMM (06/16/17 3:47 AM) 3.4 K/CMM (06/15/17 3:41 AM) 6.3 K/CMM (06/14/17 11:24 AM) Segs-Bands # [1.5-8.1 K/CMM] 1.7 K/CMM (06/16/17 3:47 AM) 1.9 K/CMM (06/15/17 3:41 AM) 1.8 K/CMM (06/14/17 11:24 AM) Lymphocytes # [1.0-5.5 K/CMM] 0.4 K/CMM (06/16/17 3:47 AM) 0.6 K/CMM (06/15/17 3:41 AM) 0.6 K/CMM (06/14/17 11:24 AM) Monocytes # [0.0-0.8 K/CMM] 0.2 K/CMM (06/16/17 3:47 AM) 0.2 K/CMM (06/15/17 3:41 AM) 0.3 K/CMM (06/14/17 11:24 AM) Eosinophils # [0.0-0.5 K/CMM] 0.1 K/CMM (06/14/17 11:24 AM) Basophils # [0.0-0.2 K/CMM] 13.0 seconds (06/14/17 11:24 AM) PT [12.0-14.7 seconds] 0.98 (06/14/17 11:24 AM) INR [0.85-1.17] 30.5 seconds (06/14/17 11:24 AM) PTT [22.9-35.8 seconds] 1Result Comment: Critical Result(s) called to Prisca Sequeira RN at 06/16/2017 04:33 by . Read back OK. Immunizations Given and Recorded Vaccine Date Status Refusal Reason influenza virus vaccine, inactivated 01/10/17 G iven influenza virus vaccine, inactivated 01/07/ G iven pneumococcal 23-valent vaccine 01/08/16 Given [...] Reg Smoking Cessation Counseling No entered on: 09/16/17 1pt denies current alcohol use Assessment and Plan Extracted from: Title: Nephrology * Author: Ernie Woods MD Date : 06/16/17 Impression and Plan 1.Volume overload resolved with HD 2.Hyperkalemia resolved with HD 3.ESRD missed HD 4.Pleural effusions 5.Acidemia metabolic acidosis resolved w ith HD 6.Anemia in CKD 7.Hypertensive CKD 8.DM2 9.Non compliance Recs HD again today PRBCs in HD Once d/giovana resume OP HD Extracted from: Title: GI Consultation Note-Polly Author: Geovany Matias MD [...] as a bowel regimen for her Extracted from: Title: History and Physical Author: Neftali Nichole MD [...] and follow-up including hemodialysis. Will provide IV Reglan 1 now and then scheduled for her flare [...]
--- OUTSIDE RECORDS SUMMARY | 2019-09-10 20:11 | XMS REPORT | Summary of Care ---
Author Author [facility] Organization [facility] Address Unknown Phone Unavailable Encounter PRIMITIVO Mariano(SANGITA) [id number] Date(s): 07/18/18 - 07/25/18 [facility] [address] [place] [address] [phone] Encounter Diagnosis End stage renal disease (Final) - Discharge Disposition: Home or Self Care Attending Physician: Mathew Tolbert MD Admitting Physician: Mathew Tolbert MD Vital Signs 1 2 3 Most recent to oldest [Reference Range]: 170.18 cm (07/19/18 11:07 AM) 170.18 cm (07/19/18 12:49 AM) Height 98.4 DegF (07/25/18 3:50 PM) 97.9 DegF (07/25/18 11:21 AM) 98.0 DegF (07/25/18 10:51 AM) Temperature Oral [96.4-99.1 DegF] 111/66 mmHg (07/25/18 3:50 PM) 102/68 mmHg (07/25/18 11:21 AM) 135/73 mmHg (07/25/18 10:51 AM) Blood Pressure [90-140/60-90 mmHg] 18 BRMIN (07/25/18 3:50 PM) 19 BRMIN (07/25/18 11:21 AM) 18 BRMIN (07/25/18 10:51 AM) Respiratory Rate [14-20 BRMIN] 91 bpm (07/25/18 3:50 PM) 69 bpm (07/25/18 11:21 AM) 97 bpm (07/25/18 10:51 AM) Peripheral Pulse Rate [60-100 bpm] 113.182 kg (07/19/18 11:07 AM) 113.182 kg (07/19/18 12:49 AM) Weight 39.08 m2 (07/19/18 11:07 AM) 39.08 m2 (07/19/18 12:49 AM) Body Mass Index Problem List Condition [...] Status Zofran Active Phenergan Active Tylenol Active [place] Active traMADol Active Medications atorvastatin 40 mg, 1 tab, Route: PO, Drug form: TAB, Bedtime, Dosing Weight 113.182, kg, Sta rt date: 07/19/18 21:00:00 CDT, Duration: 30 day, Stop date: 08/17/18 21:00:00 C DT Notes: (Same as: Lipitor) Start Date: 07/19/18 Stop Date: 07/25/18 Status: Discontinued calcitriol 0.25 microgram, 1 cap, Route: PO, Drug form: CAP, Daily, Dosing Weight 113.182, kg, Start date: 07/20/18 9:00:00 CDT, Duration: 30 day, Stop date: 08/18/18 9:00 :00 CDT Notes: (Same As: Rocaltrol) Start Date: 07/20/18 Stop Date: 07/25/18 Status: Discontinued carvedilol 25 mg, 2 tab, Route: PO, Drug form: TAB, Q12H, Dosing Weight 113.182, kg, Start date: 07/19/18 21:00:00 CDT, Duration: 30 day, Stop date: 08/18/18 9:00:00 CDT Notes: Give with food. (Same As: Coreg) Start Date: 07/19/18 Stop Date: 07/25/18 Status: Discontinued cefdinir 300 mg, 1 cap, Route: PO, Drug form: CAP, [id number], Start date: 07/25/18 16:00:00 CDT, Duration: 10 day, Stop date: 08/02/18 16:00:00 CDT Notes: (Same As: Omnicef) Start Date: 07/25/18 Stop Date: 07/25/18 Status: Discontinued Dextrose 50% Syringe 12.5 gm, 25 mL, Route: IVP, Drug Form: INJ, Dosing Weight 113.182, kg, PRN, PRN Blood Glucose Results, Start date: 07/19/18 2:01:00 CDT, Duration: 30 day, Stop date: 08/18/18 2:00:00 CDT Start Date: 07/19/18 Stop Date: 07/25/18 Status: Discontinued Dextrose 50% Syringe 25 gm, 50 mL, Route: IVP, Drug Form: INJ, Dosing Weight 113.182, kg, PRN, PRN Bl ood Glucose Results, Start date: 07/19/18 2:01:00 CDT, Duration: 30 day, Stop da te: 08/18/18 2:00:00 CDT Start Date: 07/19/18 Stop Date: 07/25/18 Status: Discontinued Dextrose 50% Syringe 12.5 gm, 25 mL, Route: IVP, Drug Form: INJ, Dosing Weight 113.182, kg, PRN, PRN Blood Glucose Results, Start date: 07/19/18 1:00:00 CDT, Duration: 30 day, Stop date: 08/18/18 0:59:00 CDT Start Date: 07/19/18 Stop Date: 07/19/18 Status: Discontinued Dextrose 50% Syringe 25 gm, 50 mL, Route: IVP, Drug Form: INJ, Dosing Weight 113.182, kg, PRN, PRN Bl ood Glucose Results, Start date: 07/19/18 1:00:00 CDT, Duration: 30 day, Stop da te: 08/18/18 0:59:00 CDT Start Date: 07/19/18 Stop Date: 07/19/18 Status: Discontinued Diflucan 100 mg, 1 tab, Route: PO, Drug form: TAB, [id number], Dosing Weight 113.182, kg, St art date: 07/19/18 13:00:00 CDT, Duration: 10 day, Stop date: 07/28/18 13:00:00 CDT, ABX Indication: Urinary Tract Infection Notes: (Same as: Diflucan) Start Date: 07/19/18 Stop Date: 07/25/18 Status: Discontinued docusate 100 mg, 1 cap, Route: PO, Drug form: CAP, BID, Dosing Weight 113.182, kg, Start date: 07/19/18 9:00:00 CDT, Duration: 30 day, Stop date: 08/17/18 17:00:00 CDT Notes: (Same as: Colace) (Do Not Crush) Start Date: 07/19/18 Stop Date: 07/25/18 Status: Discontinued Dulcolax Laxative 5 mg, 1 tab, Route: PO, Drug form: ECTAB, Daily, Dosing Weight 113.182, kg, PRN Constipation, Start date: 07/19/18 11:50:00 CDT, Duration: 30 day, Stop date: 11:49:00 CDT Notes: (Same As: Dulcolax, Correctol) (Do Not Crush) "Do Not Crush" Start Date: 07/19/18 Stop Date: 07/25/18 Status: Discontinued epoetin mira 10,000 unit, 1 mL, Route: SUB-Q, Drug form: INJ, ONCE, Start date: 07/24/18 10:0 0:00 CDT, Stop date: 07/24/18 10:00:00 CDT Notes: (Same as: Procrit) epoetin mira 15677 unit/1 ml VL.For dialysis use only. (Procrit)WASTE: F/P - Red; E -Red MEDICATION WASTE Product Size: 63560 unitProduct Wasted: ___ unit Start Date: 07/24/18 Stop Date: 07/24/18 Status: Completed epoetin mira 10,000 unit, 1 mL, Route: SUB-Q, Drug form: INJ, Q-M-W-F, Dosing Weight 113.182, kg, Start date: 07/19/18 17:00:00 CDT, Stop date: 08/17/18 17:00:00 CDT Notes: (Same as: Procrit) epoetin mira 70178 unit/1 ml VL.For dialysis use only. (Procrit)WASTE: F/P - Red; E -Red MEDICATION WASTE Product Size: 79400 unitProduct Wasted: ___ unit Start Date: 07/19/18 Stop Date: 07/25/18 Status: Discontinued furosemide 20 mg, PO, BID, 0 Refill(s) Start Date: 07/19/18 Status: Ordered furosemide 20 mg, 1 tab, Route: PO, Drug form: TAB, BID, Dosing Weight 113.182, kg, Start d ate: 07/19/18 17:00:00 CDT, Duration: 30 day, Stop date: 08/18/18 9:00:00 CDT Notes: (Same as: Lasix) May cause GI upset. Give with food or milk. Start Date: 07/19/18 Stop Date: 07/25/18 Status: Discontinued glucagon 1 mg, Route: IM, Drug form: PDR/INJ, PRN, Dosing Weight 113.182, kg, PRN Blood G lucose Results, Start date: 07/19/18 2:01:00 CDT, Duration: 30 day, Stop date: 0 08/18/18 2:00:00 CDT Start Date: 07/19/18 Stop Date: 07/25/18 Status: Discontinued glucagon 1 mg, Route: IM, Drug form: PDR/INJ, PRN, Dosing Weight 113.182, kg, PRN Blood G lucose Results, Start date: 07/19/18 1:00:00 CDT, Duration: 30 day, Stop date: 0 08/18/18 0:59:00 CDT Start Date: 07/19/18 Stop Date: 07/19/18 Status: Discontinued heparin 5,000 unit, 1 mL, Route: SUB-Q, Drug form: INJ, Q12H, Dosing Weight 113.182, kg, Start date: 07/23/18 21:00:00 CDT, Duration: 30 day, Stop date: 08/22/18 9:00:00 CDT Notes: porcine heparin Start Date: 07/23/18 Stop Date: 07/25/18 Status: Discontinued hydrALAZINE 10 mg, Route: IV, ONCE, Dosing Weight 119.1, kg, Start date: 07/19/18 0:49:00 CD T, Stop date: 07/19/18 0:49:00 CDT Start Date: 07/19/18 Stop Date: 07/19/18 Status: Completed hydrALAZINE 50 mg oral tablet 50 mg, 1 tab, Route: PO, Drug form: TAB, TID, Dosing Weight 113.182, kg, Start d ate: 07/19/18 16:00:00 CDT, Duration: 30 day, Stop date: 08/18/18 8:00:00 CDT Notes: (Same as: Apresoline) May interfere w/enteral feedings Take With Food Start Date: 07/19/18 Stop Date: 07/25/18 Status: Discontinued insulin lispro 2 unit, 0.02 mL, Route: SUB-Q, Drug form: SOLN, Bedtime, Dosing Weight 113.182, kg, PRN Blood Glucose Results, Start date: 07/19/18 2:01:00 CDT, Duration: 30 da y, Stop date: 08/18/18 2:00:00 CDT Notes: (Same as: Humalog ) Roll in palms of hands gently; Do not shake `vigorou sly. "Single Patient Use Only " WASTE: F/P - Black; E - Municipal Trash [address] St able for 28 days at room temperature.Expires in days from Da te Start Date: 07/19/18 Stop Date: 07/25/18 Status: Discontinued insulin lispro 2 unit, 0.02 mL, Route: SUB-Q, Drug form: SOLN, TID-Before Meals, Dosing Weight 113.182, kg, PRN Blood Glucose Results, Start date: 07/19/18 2:01:00 CDT, Durati on: 30 day, Stop date: 08/18/18 2:00:00 CDT Notes: (Same as: Humalog ) Roll in palms of hands gently; Do not shake `vigorou sly. "Single Patient Use Only " WASTE: F/P - Black; E - [employer] [address] able for 28 days at room temperature.Expires in days from Da te Start Date: 07/19/18 Stop Date: 07/25/18 Status: Discontinued insulin lispro 6 unit, 0.06 mL, Route: SUB-Q, Drug form: SOLN, TID-Before Meals, Dosing Weight 113.182, kg, PRN Blood Glucose Results, Start date: 07/19/18 2:01:00 CDT, Durati on: 30 day, Stop date: 08/18/18 2:00:00 CDT Notes: (Same as: Humalog ) Roll in palms of hands gently; Do not shake `vigorou sly. "Single Patient Use Only " WASTE: F/P - Black; E - [facility] [employer] [address] able for 28 days at room temperature.Expires in days from Da te Start Date: 07/19/18 Stop Date: 07/25/18 Status: Discontinued insulin lispro 4 unit, 0.04 mL, Route: SUB-Q, Drug form: SOLN, TID-Before Meals, Dosing Weight 113.182, kg, PRN Blood Glucose Results, Start date: 07/19/18 2:01:00 CDT, Durati on: 30 day, Stop date: 08/18/18 2:00:00 CDT Notes: (Same as: Humalog ) Roll in palms of hands gently; Do not shake `vigorou sly. "Single Patient Use Only " WASTE: F/P - Black; E - [facility] [employer] [address] able for 28 days at room temperature.Expires in days from Da te Start Date: 07/19/18 Stop Date: 07/25/18 Status: Discontinued insulin lispro 10 unit, 0.1 mL, Route: SUB-Q, Drug form: SOLN, TID-Before Meals, Dosing Weight 113.182, kg, PRN Blood Glucose Results, Start date: 07/19/18 2:01:00 CDT, Durati on: 30 day, Stop date: 08/18/18 2:00:00 CDT Notes: (Same as: Humalog ) Roll in palms of hands gently; Do not shake `vigorou sly. "Single Patient Use Only " WASTE: F/P - Black; E - [facility] [address] [address] able for 28 days at room temperature.Expires in days from Da te Start Date: 07/19/18 Stop Date: 07/25/18 Status: Discontinued insulin lispro 8 unit, 0.08 mL, Route: SUB-Q, Drug form: SOLN, TID-Before Meals, Dosing Weight 113.182, kg, PRN Blood Glucose Results, Start date: 07/19/18 2:01:00 CDT, Durati on: 30 day, Stop date: 08/18/18 2:00:00 CDT Notes: (Same as: Humalog ) Roll in palms of hands gently; Do not shake `vigorou sly. "Single Patient Use Only " WASTE: F/P - Black; E - [facility] [address] [address] able for 28 days at room temperature.Expires in days from Da te Start Date: 07/19/18 Stop Date: 07/25/18 Status: Discontinued insulin lispro 4 unit, 0.04 mL, Route: SUB-Q, Drug form: SOLN, Bedtime, Dosing Weight 113.182, kg, PRN Blood Glucose Results, Start date: 07/19/18 2:01:00 CDT, Duration: 30 da y, Stop date: 08/18/18 2:00:00 CDT Notes: (Same as: Humalog ) Roll in palms of hands gently; Do not shake `vigorou sly. "Single Patient Use Only " WASTE: F/P - Black; E - [facility] [address] [address] able for 28 days at room temperature.Expires in days from Da te Start Date: 07/19/18 Stop Date: 07/25/18 Status: Discontinued insulin lispro 3 unit, 0.03 mL, Route: SUB-Q, Drug form: SOLN, Bedtime, Dosing Weight 113.182, kg, PRN Blood Glucose Results, Start date: 07/19/18 2:01:00 CDT, Duration: 30 da y, Stop date: 08/18/18 2:00:00 CDT Notes: (Same as: Humalog ) Roll in palms of hands gently; Do not shake `vigorou sly. "Single Patient Use Only " WASTE: F/P - Black; E - [facility] [address] [address] able for 28 days at room temperature.Expires in days from Da te Start Date: 07/19/18 Stop Date: 07/25/18 Status: Discontinued insulin lispro 1 unit, 0.01 mL, Route: SUB-Q, Drug form: SOLN, Bedtime, Dosing Weight 113.182, kg, PRN Blood Glucose Results, Start date: 07/19/18 2:01:00 CDT, Duration: 30 da y, Stop date: 08/18/18 2:00:00 CDT Notes: (Same as: Humalog ) Roll in palms of hands gently; Do not shake `vigorou sly. "Single Patient Use Only " WASTE: F/P - Black; E - [facility] [address] [address] able for 28 days at room temperature.Expires in days from Da te Start Date: 07/19/18 Stop Date: 07/25/18 Status: Discontinued labetalol 20 mg, 4 mL, Route: IV, Drug form: INJ, Q4H, Dosing Weight 113.182, kg, PRN Elev ated BP, Start date: 07/19/18 5:40:00 CDT, Duration: 30 day, Stop date: 08/18/18 5:39:00 CDT Notes: (Same as: Normodyne, Trandate)Push over 2 minutes Give bolus over 2-3 mi nutes. Start Date: 07/19/18 Stop Date: 07/25/18 Status: Discontinued melatonin 3 mg, 1 tab, Route: PO, Drug form: TAB, Bedtime, Dosing Weight 113.182, kg, PRN Insomnia, Start date: 07/19/18 1:00:00 CDT, Duration: 30 day, Stop date: 9 0:59:00 CDT Notes: (Same as: Melatonin) Start Date: 07/19/18 Stop Date: 07/25/18 Status: Discontinued morphine Sulfate 2 mg, 1 mL, Route: IVP, Drug form: SOLN, Q4H, Dosing Weight 113.182, kg, PRN Katherine n Score 7-10, Start date: 07/19/18 11:47:00 CDT, Duration: 30 day, Stop date: 11:46:00 CDT Start Date: 07/19/18 Stop Date: 07/25/18 Status: Discontinued morphine Sulfate 2 mg, 0.5 mL, Route: IVP, Drug form: SOLN, Q6H, Dosing Weight 113.182, kg, PRN P ain Score 7-10, Start date: 07/19/18 0:55:00 CDT, Duration: 30 day, Stop date: 0 08/18/18 0:54:00 CDT Notes: (Same as:MORPhine Sulfate) Start Date: 07/19/18 Stop Date: 07/19/18 Status: Discontinued nystatin topical 100,000 units/g powder 1 appl, Route: TOP, TID, Drug form: PWDR, Start date: 07/19/18 15:00:00 CDT, Dur ation: 30 day, Stop date: 08/18/18 9:00:00 CDT Notes: (Same as:Mycostatin, Nilstat) For external use only. Start Date: 07/19/18 Stop Date: 07/25/18 Status: Discontinued oxyCODONE 5 mg oral tablet, immediate release 5 mg, 1 tab, Route: PO, Drug form: TAB, ONCE, Dosing Weight 113.182, kg, Start d ate: 07/24/18 8:31:00 CDT, Stop date: 07/24/18 8:31:00 CDT Notes: (Same as: Roxicodone) Start Date: 07/24/18 Stop Date: 07/24/18 Status: Completed pantoprazole 40 mg, 1 tab, Route: PO, Drug form: ECTAB, Before Dinner, Dosing Weight 113.182, kg, Start date: 07/19/18 16:30:00 CDT, Duration: 30 day, Stop date: 08/17/18 16 :30:00 CDT Notes: Tablet should not be chewed or crushed.(Same as: Protonix) Start Date: 07/19/18 Stop Date: 07/25/18 Status: Discontinued polyethylene glycol 3350 17 gm, 1 pkt, Route: PO, Drug form: PWDR, Daily, Dosing Weight 113.182, kg, Star t date: 07/20/18 9:00:00 CDT, Duration: 30 day, Stop date: 08/18/18 9:00:00 CDT Notes: Dissolve in 8 oz of water or juice.(Same as: Miralax) Start Date: 07/20/18 Stop Date: 07/25/18 Status: Discontinued Reglan 10 mg, 2 mL, Route: IVP, Drug form: INJ, Q8H, Dosing Weight 113.182, kg, PRN as needed for nausea/vomiting, Start date: 07/19/18 2:52:00 CDT, Duration: 30 day, Stop date: 08/18/18 2:51:00 CDT Notes: (Same as: Reglan) Start Date: 07/19/18 Stop Date: 07/25/18 Status: Discontinued Rocephin + sterile water 10 mL 1 gm, Route: IV, [id number], Dosing Weight 113.182, kg, Start date: 07/19/18 12:00: 00 CDT, Duration: 10 day, Stop date: 07/28/18 12:00:00 CDT, ABX Indication: Urin christo Tract Infection Notes: (Same As: Rocephin).Use with 100 mL NS and infuse over 30 min MEDICA TION WASTE Product Size: 1000 mgProduct Wasted: ___ mg Start Date: 07/19/18 Stop Date: 07/23/18 Status: Discontinued Vantin 200 mg, Route: PO, Drug form: TAB, Q24H, Dosing Weight 113.182, kg, Start date: 07/25/18 15:00:00 CDT, Duration: 10 day, Stop date: 08/03/18 15:00:00 CDT, ABX I ndication: Urinary Tract Infection Start Date: 07/25/18 Stop Date: 07/25/18 Status: Deleted Vantin 200 mg oral tablet 200 mg, PO, Q24H, X 5 day, # 5 tab, 0 Refill(s), Pharmacy: [facility] [id number] Start Date: 07/25/18 Stop Date: 07/30/18 Status: Ordered Results ELECTROLYTES 1 2 3 Most recent to oldest [Reference Range]: 136 mEq/L (07/24/18 5:31 AM) 138 mEq/L (07/22/18 10:00 AM) 138 mEq/L (07/21/18 5:20 AM) Sodium Lvl [135-145 mEq/L] 3.9 mEq/L (07/24/18 5:31 AM) 4.3 mEq/L (07/22/18 10:00 AM) 3.8 mEq/L (07/21/18 5:20 AM) Potassium Lvl [3.5-5.1 mEq/L] 101 mEq/L (07/24/18 5:31 AM) 105 mEq/L (07/22/18 10:00 AM) 104 mEq/L (07/21/18 5:20 AM) Chloride Lvl [95-109 mEq/L] 28 mEq/L (07/24/18 5:31 AM) 18 mEq/L *LOW* (07/22/18 10:00 AM) 28 mEq/L (07/21/18 5:20 AM) CO2 [24-32 mEq/L] 10.9 mEq/L (07/24/18 5:31 AM) 19.3 mEq/L (07/22/18 10:00 AM) 9.8 mEq/L *LOW* (07/21/18 5:20 AM) AGAP [10.0-20.0 mEq/L] CHEM PANEL 1 2 3 Most recent to oldest [Reference Range]: 9.42 mg/dL *HI* (07/24/18 5:31 AM) 10.00 mg/dL *HI* (07/22/18 10:00 AM) 7.99 mg/dL *HI* (07/21/18 5:20 AM) Creatinine Lvl [0.50-1.40 mg/dL] 5 mL/min/1.73m2 1 *NA* (07/24/18 5:31 AM) 4 mL/min/1.73m2 2 *NA* (07/22/18 10:00 AM) 6 mL/min/1.73m2 3 *NA* (07/21/18 5:20 AM) eGFR 34 mg/dL *HI* (07/24/18 5:31 AM) 42 mg/dL *HI* (07/22/18 10:00 AM) 32 mg/dL *HI* (07/21/18 5:20 AM) BUN [7-22 mg/dL] 5 *LOW* (07/18/18 9:59 PM) B/C Ratio [6-25] 135 mg/dL *HI* (07/24/18 5:31 AM) 97 mg/dL (07/22/18 10:00 AM) 119 mg/dL *HI* (07/21/18 5:20 AM) Glucose Lvl [70-99 mg/dL] 8.9 g/dL *HI* (07/18/18 9:59 PM) Total Protein [6.4-8.4 g/dL] 3.6 g/dL (07/18/18 9:59 PM) Albumin Lvl [3.5-5.0 g/dL] 5.3 g/dL *HI* (07/18/18 9:59 PM) Globulin [2.7-4.2 g/dL] 0.7 (07/18/18 9:59 PM) A/G Ratio [0.7-1.6] 8.0 mg/dL *LOW* (07/24/18 5:31 AM) 7.7 mg/dL *LOW* (07/22/18 10:00 AM) 7.7 mg/dL *LOW* (07/21/18 5:20 AM) Calcium Lvl [8.5-10.5 mg/dL] 6.7 mg/dL *HI* (07/21/18 5:20 AM) 7.6 mg/dL *HI* (07/20/18 5:27 AM) 8.7 mg/dL *HI* (07/19/18 2:56 AM) Phosphorus [2.5-4.5 mg/dL] 2.1 mg/dL (07/21/18 5:20 AM) 2.1 mg/dL (07/20/18 5:27 AM) 2.1 mg/dL (07/19/18 2:56 AM) Magnesium Lvl [1.8-2.4 mg/dL] 13 unit/L (07/18/18 9:59 PM) ALT [0-65 unit/L] 11 unit/L (07/18/18 9:59 PM) AST [0-37 unit/L] 103 unit/L (07/18/18 9:59 PM) Alk Phos [39-136 unit/L] 0.3 mg/dL (07/18/18 9:59 PM) Bili Total [0.2-1.3 mg/dL] 1Result Comment: [...] 3 Most recent to oldest [Reference Range]: 373 unit/L *HI* (07/18/18 9:59 PM) Total CK [12-191 unit/L] 3.0 ng/mL (07/18/18 9:59 PM) CK MB [0.5-3.6 ng/mL] 0.8 (07/18/18 9:59 PM) CK MB Index [0.0-2.5] <0.02 ng/mL (07/19/18 12:05 PM) <0.02 ng/mL (07/19/18 2:56 AM) <0.02 ng/mL (07/18/18 9:59 PM) Troponin-I [0.00-0.40 ng/mL] 587 pg/mL *HI* (07/18/18 9:59 PM) BNP [<=100 pg/mL] URINE AND STOOL 1 2 3 Most recent to oldest [Reference Range]: Slight *ABN* (07/19/18 2:56 AM) UA Turbidity [Clear] Ltyellow *NA* (07/19/18 2:56 AM) UA Color 7.0 (07/19/18 2:56 AM) UA pH [5.0-8.0] 1.014 (07/19/18 2:56 AM) UA Spec Grav [<=1.030] 500 mg/dL *ABN* (07/19/18 2:56 AM) UA Glucose [Negative mg/dL] Negative (07/19/18 2:56 AM) UA Blood [Negative] Negative *NA* (07/19/18 2:56 AM) UA Ketones [Negative] >=300 mg/dL *ABN* (07/19/18 2:56 AM) UA Protein [Negative mg/dL] <=1.0 mg/dL *NA* (07/19/18 2:56 AM) UA Urobilinogen [0.1-1.0 mg/dL] Negative *NA* (07/19/18 2:56 AM) UA Bili [Negative] Negative (07/19/18 2:56 AM) UA Leuk Est [Negative] Negative (07/19/18 2:56 AM) UA Nitrite [Negative] <1 /HPF (07/19/18 2:56 AM) UA WBC [0-5 /HPF] 3 /HPF *HI* (07/19/18 2:56 AM) UA RBC [0-2 /HPF] Occasional /HPF *NA* (07/19/18 2:56 AM) UA Bacteria [None Seen /HPF] Many /LPF *ABN* (07/19/18 2:56 AM) UA Sq Epi [Few /LPF] IMMUNOLOGY 1 2 3 Most recent to oldest [Reference Range]: Negative *NA* (07/19/18 2:56 AM) Hep Bs Ag [Negative] HEMATOLOGY 1 2 3 Most recent to oldest [Reference Range]: 8.6 K/CMM (07/24/18 5:31 AM) 8.2 K/CMM (07/22/18 1:53 PM) 7.0 K/CMM (07/21/18 5:20 AM) WBC [3.7-10.4 K/CMM] 2.52 M/CMM *LOW* (07/24/18 5:31 AM) 2.78 M/CMM *LOW* (07/22/18 1:53 PM) 2.63 M/CMM *LOW* (07/21/18 5:20 AM) RBC [4.20-5.40 M/CMM] 8.6 g/dL *LOW* (07/25/18 10:20 AM) 7.7 g/dL *LOW* (07/24/18 5:31 AM) 8.5 g/dL *LOW* (07/22/18 1:53 PM) Hgb [12.0-16.0 g/dL] 26.0 % *LOW* (07/25/18 10:20 AM) 23.7 % *LOW* (07/24/18 5:31 AM) 25.6 % *LOW* (07/22/18 1:53 PM) Hct [36.0-48.0 %] 93.9 fL (07/24/18 5:31 AM) 91.9 fL (07/22/18 1:53 PM) 91.6 fL (07/21/18 5:20 AM) MCV [80.0-98.0 fL] 30.5 pg (07/24/18 5:31 AM) 30.5 pg (07/22/18 1:53 PM) 30.3 pg (07/21/18 5:20 AM) MCH [27.0-31.0 pg] 32.4 g/dL (07/24/18 5:31 AM) 33.2 g/dL (07/22/18 1:53 PM) 33.0 g/dL (07/21/18 5:20 AM) MCHC [32.0-36.0 g/dL] 15.9 % *HI* (07/24/18 5:31 AM) 15.7 % *HI* (07/22/18 1:53 PM) 15.7 % *HI* (07/21/18 5:20 AM) RDW [11.5-14.5 %] 8.0 fL (07/24/18 5:31 AM) 8.2 fL (07/22/18 1:53 PM) 8.2 fL (07/21/18 5:20 AM) MPV [7.4-10.4 fL] 338 K/CMM (07/24/18 5:31 AM) 329 K/CMM (07/22/18 1:53 PM) 296 K/CMM (07/21/18 5:20 AM) Platelet [133-450 K/CMM] 48.7 % (07/24/18 5:31 AM) 56.2 % (07/22/18 1:53 PM) 55.1 % (07/21/18 5:20 AM) Segs [45.0-75.0 %] 37.2 % (07/24/18 5:31 AM) 32.4 % (07/22/18 1:53 PM) 31.8 % (07/21/18 5:20 AM) Lymphocytes [20.0-40.0 %] 9.4 % (07/24/18 5:31 AM) 6.8 % (07/22/18 1:53 PM) 8.9 % (07/21/18 5:20 AM) Monocytes [2.0-12.0 %] 3.9 % (07/24/18 5:31 AM) 3.6 % (07/22/18 1:53 PM) 3.3 % (07/21/18 5:20 AM) Eosinophils [0.0-4.0 %] 0.8 % (07/24/18 5:31 AM) 1.0 % (07/22/18 1:53 PM) 0.9 % (07/21/18 5:20 AM) Basophils [0.0-1.0 %] 4.2 K/CMM (07/24/18 5:31 AM) 4.6 K/CMM (07/22/18 1:53 PM) 3.9 K/CMM (07/21/18 5:20 AM) Neutrophils # [1.5-8.1 K/CMM] 3.2 K/CMM (07/24/18 5:31 AM) 2.7 K/CMM (07/22/18 1:53 PM) 2.2 K/CMM (07/21/18 5:20 AM) Lymphocytes # [1.0-5.5 K/CMM] 0.8 K/CMM (07/24/18 5:31 AM) 0.6 K/CMM (07/22/18 1:53 PM) 0.6 K/CMM (07/21/18 5:20 AM) Monocytes # [0.0-0.8 K/CMM] 0.3 K/CMM (07/24/18 5:31 AM) 0.3 K/CMM (07/22/18 1:53 PM) 0.2 K/CMM (07/21/18 5:20 AM) Eosinophils # [0.0-0.5 K/CMM] 0.1 K/CMM (07/24/18 5:31 AM) 0.1 K/CMM (07/22/18 1:53 PM) 0.1 K/CMM (07/21/18 5:20 AM) Basophils # [0.0-0.2 K/CMM] Normal (07/19/18 2:56 AM) RBC Morph Moderate *ABN* (07/19/18 2:56 AM) Large Plt [None Seen] 14.2 seconds (07/18/18 9:59 PM) PT [12.0-14.7 seconds] 1.12 (07/18/18 9:59 PM) INR [0.85-1.17] 34.2 seconds (07/18/18 9:59 PM) PTT [22.9-35.8 seconds] Immunizations Given and [...] Reg Smoking Cessation Counseling No entered on: 07/18/18 1pt denies current alcohol use Assessment and Plan Extracted from: Title: Clinical Document Author: Joe Campuzano MD Date: 07/25/18 Progress Note - Daily [facility] Completed: Jul, 13:58 by Joe Campuzano MD RM: 155 - 1P, SE [id number] (: 1975) F Attending: Mathew Tolbert MDPhone: Service: Internal Medicine Reason for Admission: ESRD, DYSPNEA Working DRG: Code status: Full CodeCurrent diet: Isolation: Contact Allergies: Phenergan, Zofran, traMADol, Tylenol, [place] SUBJECTIVE Chart reviewed Reports having some pain with urination. 24hr Labs 07/25 1119 POC Performing LocatioSee Note Glucose VKE963 H 07/25 1020 Hgb8.6 L Hct26.0 L 07/25 0616 POC Performing LocatioSee Note Glucose FSV190 H 07/25 0348 POC Performing LocatioSee Note Glucose IYZ530 H 07/24 1615 POC Performing LocatioSee Note Glucose TON266 H [place] still necessary (Yes/No): Line still necessary (Yes/No): VitalsTmp(F)[id number] 07/25 11:2197.754640/6819------ 07/25 10:5198.481404/7318------ 07/25 07:2099.437168/7718------ 07/25 04:1899.206104/886405--- 07/25 00:0398.334377/897242--- Gen: AAOX3, NAD Neuro: Moving all extremities well CV: RRR, S1 and S2 Lung: Clear to auscultation bilaterally Abdomen: Non-distended, non-tender, no rebound or gaurding, bowel sounds are present. : no supraputic region tenderness. No CVA region tenderness. EXT: Noted bilateral peripheral edema Skin: no rashes or other skin color changes. 24 Hr Tmax: 99.1F (37.28c) at 07/25 04:1 8Vital Signs are the last 5 in the past 48 hours. DateWt(kg)Wt(lb)Ht(cm)Ht(in)Method 07/19 (initial)113.18 249.00Estimated 70.18 67.00Stated I&ORecordInOutBal 07/323hr Tot 3 6439-7040 07/223hr Tot 7 150 -143 Medications (31) Active Scheduled Meds (12): 07/19/18 atorvastatin 40 mg PO Bedtime 07/20/18 calcitriol 0.25 microgram PO Da hans 07/19/18 carvedilol 25 mg PO Q12H 07/19/18 docusate 100 mg PO BID 07/19/18 epoetin mira 10,000 unit SUB-Q Q-M-W-07/19/18 fluconazole (Diflucan) 100 mg P O [id number] 07/19/18 furosemide 20 mg PO BID 07/23/18 [...] Bedtime 07/19/18 metoclopramide (Reglan) 10 mg I DYE WEIGHER Q8H 07/19/18 morphine Sulfate 2 mg IVP Q4H One Time Meds (2): 07/24/18 (Completed) epoetin mira 10,00 0 unit SUB-Q ONCE 07/24/18 (Completed) oxyCODONE (oxyCODO NE 5 mg oral tablet, immediate release) 5 mg PO ONCE Continuous Infusions: None ASSESSMENT & PLAN *Acute pulmonary edema *Urinary tract infection [...] up of HD needed. Case discussed with case assembler today, we are awaiting chair placement. DVT prophylaxis: Heparin Disposition: Discharge planning. Pending placement. Extracted from: Title: Nephrology * Author: Ernie Woods MD Date : 07/19/18 Impression and Plan Volume overload Metabolic Acidosis Hyperkalemia ESRD missed HD Anemia in CKD Hypertensive heart and CKD Recs HD for volume removal/clearance HD again tomorrow HTN control Follow Hb Counseled about compliance SW follow up re HD chair OP D/w patient HD RN Extracted from: Title: History and Physical Author: Rm Pascual MD [...] Expected LOS: 1 Midnight, Mulugeta Pascal MD, Brionna COCHRAN Review/Approve Yes, Isolation: Contact, ESRD (end stage renal disease) | Dyspnea ESRD (end stage renal disease)(N18.6) Having issues with dialysis placement,will need social work to follow in the morning toproblem solve. Ordered: Admit/Condition, 07/19/18 0:14:00 CDT, Status: Out Patient with Observation Services, Telemetry Capable Location, Expected LOS: 1 Midnight, Mulugeta Pascal MD, Brionna COCHRAN Review/Approve Yes, Isolation: Contact, ESRD (end stage renal disease) | Dyspnea Hypertension Resume home meds Dysuria R/Ourinary tract infection. UA negative. Pain medicine as needed. Heparin 1 midnight
--- OUTSIDE RECORDS SUMMARY | 2019-09-10 20:12 | XMS REPORT | Summary of Care ---
Author Author [facility] Organization [facility] Address Unknown Phone Unavailable Encounter PRIMITIVO Mariano(SANGITA) [id number] Date(s): 11/05/17 - 11/12/17 [facility] [address] [employer] provided by [facility] [place] [address]- Encounter Diagnosis Bloodstream infection due to central venous catheter, initial encounter (Final) - 11/20/17 Other Gram-negative sepsis (Final) - Severe sepsis with septic shock (Final) - End stage renal disease (Final) - Acute respiratory failure with hypoxia (Final) - Hypertensive heart and chronic kidney disease with heart failure and with stage 5 chronic kidney disease, or end stage renal disease (Final) - Chronic diastolic (congestive) heart failure (Final) - Opioid dependence, uncomplicated (Final) - Hypertensive crisis, unspecified (Final) - Acidosis (Final) - Hyperlipidemia, unspecified (Final) - Type 2 diabetes mellitus with diabetic chronic kidney disease (Final) - 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) - Type 2 diabetes mellitus with diabetic autonomic (poly)neuropathy (Final) - Gastroparesis (Final) - Patient's noncompliance with other medical treatment and regimen (Final) - Anxiety disorder, unspecified (Final) - Major depressive disorder, single episode, unspecified (Final) - Anemia in chronic kidney disease (Final) - Patient's noncompliance with renal dialysis (Final) - Type 2 diabetes mellitus with hyperglycemia (Final) - Discharge Disposition: Home or Self Care Attending Physician: Katja Pena MD Admitting Physician: Katja Pena MD Vital Signs 1 2 3 Most recent to oldest [Reference Range]: 170.18 cm (11/05/17 10:07 PM) 170.18 cm (11/05/17 4:28 PM) Height 97.6 DegF (11/12/17 1:05 PM) 98.3 DegF (11/12/17 9:02 AM) 98.0 DegF (11/12/17 5:30 AM) Temperature Oral [96.4-99.1 DegF] 109/69 mmHg (11/12/17 1:05 PM) 113/73 mmHg (11/12/17 9:02 AM) 123/78 mmHg (11/12/17 5:30 AM) Blood Pressure [90-140/60-90 mmHg] 18 BRMIN (11/12/17 1:05 PM) 18 BRMIN (11/12/17 9:02 AM) 18 BRMIN (11/12/17 5:30 AM) Respiratory Rate [14-20 BRMIN] 77 bpm (11/12/17 1:05 PM) 79 bpm (11/12/17 9:02 AM) 79 bpm (11/12/17 5:30 AM) Peripheral Pulse Rate [60-100 bpm] 103.9 kg (11/05/17 10:07 PM) 109.091 kg (11/05/17 4:28 PM) Weight 35.88 m2 (11/05/17 10:07 PM) 37.67 m2 (11/05/17 4:28 PM) Body Mass Index Problem List Condition [...] Alerts Substance Reaction Severity Status Tylenol Active Morley Active NKDA Active Medications amLODIPine 10 mg oral tablet 10 mg = 1 tab, PO, Daily, # 30 tab, 0 Refill(s) Start Date: 11/05/17 Stop Date: 11/12/17 Status: Discontinued aspirin 81 mg tablet, chewable 81 mg, 1 tab, Route: PO, Drug form: CHEWTAB, Daily, Dosing Weight 103.9, kg, Sta rt date: 11/06/17 9:00:00 CDT, Duration: 30 day, Stop date: 12/05/17 9:00:00 CDT Notes: Take with food. Start Date: 11/06/17 Stop Date: 11/12/17 Status: Discontinued aspirin 81 mg tablet, chewable 81 mg = 1 tab, PO, Daily, tab, 0 Refill(s) Start Date: 11/05/17 Stop Date: 11/12/17 Status: Discontinued atorvastatin 40 mg, 1 tab, Route: PO, Drug form: TAB, Bedtime, Dosing Weight 103.9, kg, Start date: 11/06/17 0:00:00 CDT, Duration: 30 day, Stop date: 12/05/17 21:00:00 CDT Notes: (Same as: Lipitor) Start Date: 11/06/17 Stop Date: 11/12/17 Status: Discontinued atorvastatin 40 mg oral tablet 40 mg = 1 tab, PO, Bedtime, # 30 tab, 0 Refill(s) Start Date: 11/05/17 Stop Date: 11/12/17 Status: Discontinued calcitriol 0.25 microgram, 1 cap, Route: PO, Drug form: CAP, Daily, Dosing Weight 103.9, kg , Start date: 11/09/17 16:00:00 CDT, Duration: 30 day, Stop date: 12/09/17 9:00: 00 CDT Notes: (Same As: Rocaltrol) Start Date: 11/09/17 Stop Date: 11/12/17 Status: Discontinued calcitriol 0.25 mcg oral capsule 0.25 microgram = 1 cap, PO, Daily, # 30 cap, 0 Refill(s) Start Date: 11/12/17 Status: Ordered calcium carbonate 500 mg (200 mg elemental calcium) oral tablet 1,000 mg, Route: PO, PRN, Dosing Weight 109.091, kg, PRN Abnormal Lab Result, FO R ICU USE ONLY, Start date: 11/05/17 21:57:00 CDT, Duration: 30 day, Stop date: 12/05/17 21:56:00 CDT Start Date: 11/05/17 Stop Date: 11/05/17 Status: Discontinued calcium carbonate 500 mg (200 mg elemental calcium) oral tablet 500 mg, Route: PO, PRN, Dosing Weight 109.091, kg, PRN Abnormal Lab Result, FOR ICU USE ONLY, Start date: 11/05/17 21:57:00 CDT, Duration: 30 day, Stop date: 21:56:00 CDT Start Date: 11/05/17 Stop Date: 11/05/17 Status: Discontinued calcium gluconate 2,000 mg, Route: IVPB, Drug form: INJ, ONCE, Dosing Weight 103.9, kg, Start date : 11/07/17 7:02:00 CDT, Stop date: 11/07/17 7:02:00 CDT Start Date: 11/07/17 Stop Date: 11/07/17 Status: Deleted calcium gluconate 1 gm, Route: IVPB, PRN, Dosing Weight 109.091, kg, PRN Abnormal Lab Result, Star t date: 11/05/17 21:57:00 CDT, Duration: 30 day, Stop date: 12/05/17 21:56:00 CD T, FOR ICU USE ONLY Start Date: 11/05/17 Stop Date: 11/05/17 Status: Discontinued carvedilol 25 mg, 1 tab, Route: PO, Drug form: TAB, Q12H, Dosing Weight 103.9, kg, Start da te: 11/06/17 9:00:00 CDT, Duration: 30 day, Stop date: 12/05/17 21:00:00 CDT Notes: Give with food. (Same As: Coreg) Start Date: 11/06/17 Stop Date: 11/06/17 Status: Canceled carvedilol 25 mg, 1 tab, Route: PO, Drug form: TAB, Q12H, Dosing Weight 103.9, kg, Start da te: 11/06/17 1:28:00 CDT, Duration: 30 day, Stop date: 12/05/17 21:00:00 CDT Notes: Give with food. (Same As: Coreg) Start Date: 11/06/17 Stop Date: 11/12/17 Status: Discontinued carvedilol 25 mg oral tablet 25 mg = 1 tab, PO, Q12H, # 60 tab, 0 Refill(s) Start Date: 11/12/17 Status: Ordered carvedilol 25 mg oral tablet 25 mg = 1 tab, PO, BID, # 180 tab, 0 Refill(s) Start Date: 11/05/17 Stop Date: 11/06/17 Status: Discontinued cefepime 1 gm, Route: IVP, Drug form: INJ, ONCE, Dosing Weight 109.091, kg, Priority: STA T, Start date: 11/05/17 16:51:00 CDT, Stop date: 11/05/17 16:51:00 CDT, ABX Jennifer cation: Other (specify in Comments) Notes: (Same As: Maxipime) MEDICATION WASTE Product Size: 1000 mgProduc t Wasted: ___ mg Start Date: 11/05/17 Stop Date: 11/05/17 Status: Completed cefepime 1 gm, Route: IVPB, Drug form: INJ, [id number], Dosing Weight 103.9, kg, (CrCl 10 - 29 ml/min), Start date: 11/06/17 1:00:00 CDT, Duration: 7 day, Stop date: 13:00:00 CDT, ABX Indication: ED - Suspected Sepsis Notes: (Same As: Maxipime) MEDICATION WASTE Product Size: 1000 mgProduc t Wasted: ___ mg Start Date: 11/06/17 Stop Date: 11/06/17 Status: Discontinued Dextrose 50% Syringe 25 gm, 50 mL, Route: IVP, Drug Form: INJ, Dosing Weight 103.9, kg, PRN, PRN Bloo d Glucose Results, Start date: 11/07/17 0:07:00 CDT, Duration: 30 day, Stop date : 12/07/17 0:06:00 CDT Start Date: 11/07/17 Stop Date: 11/12/17 Status: Discontinued Dextrose 50% Syringe 12.5 gm, 25 mL, Route: IVP, Drug Form: INJ, Dosing Weight 103.9, kg, PRN, PRN Bl ood Glucose Results, Start date: 11/07/17 0:07:00 CDT, Duration: 30 day, Stop da te: 12/07/17 0:06:00 CDT Start Date: 11/07/17 Stop Date: 11/12/17 Status: Discontinued famotidine 20 mg oral tablet 20 mg = 1 tab, PO, BID, # 60 tab, 0 Refill(s) Start Date: 11/05/17 Stop Date: 11/12/17 Status: Discontinued glucagon 1 mg, Route: IM, Drug form: PDR/INJ, PRN, Dosing Weight 103.9, kg, PRN Blood Glu cose Results, Start date: 11/07/17 0:07:00 CDT, Duration: 30 day, Stop date: 0:06:00 CDT Start Date: 11/07/17 Stop Date: 11/12/17 Status: Discontinued heparin 5,000 unit, 1 mL, Route: SUB-Q, Drug form: INJ, Q8H, Dosing Weight 103.9, kg, St art date: 11/06/17 8:00:00 CDT, Duration: 30 day, Stop date: 12/06/17 0:00:00 CD T Notes: porcine heparin Start Date: 11/06/17 Stop Date: 11/07/17 Status: Discontinued heparin 5,000 unit, 1 mL, Route: SUB-Q, Drug form: INJ, Q8H, Dosing Weight 103.9, kg, St art date: 11/11/17 0:00:00 CDT, Duration: 30 day, Stop date: 12/10/17 16:00:00 C DT Notes: porcine heparin Start Date: 11/11/17 Stop Date: 11/12/17 Status: Discontinued hydrALAZINE 10 mg, 0.5 mL, Route: IV, Drug form: INJ, ONCE, Dosing Weight 103.9, kg, Start d ate: 11/09/17 9:29:00 CDT, Stop date: 11/09/17 9:29:00 CDT Notes: (Same as: Apresoline)Push over 5 minutes Start Date: 11/09/17 Stop Date: 11/09/17 Status: Completed hydrALAZINE 50 mg oral tablet 50 mg = 1 tab, PO, TID, # 90 tab, 3 Refill(s) Start Date: 11/05/17 Stop Date: 11/12/17 Status: Discontinued hydromorphone 0.5 mg, Route: IVP, ONCE, Dosing Weight 109.091, kg, Priority: STAT, Start date: 11/05/17 20:37:00 CDT, Stop date: 11/05/17 20:37:00 CDT Start Date: 11/05/17 Stop Date: 11/05/17 Status: Completed hydromorphone 0.5 mg, 0.25 mL, Route: IVP, Drug form: INJ, ONCE, Dosing Weight 103.9, kg, Prio rity: STAT, Start date: 11/06/17 8:59:00 CDT, Stop date: 11/06/17 8:59:00 CDT Notes: Same as Dilaudid Start Date: 11/06/17 Stop Date: 11/06/17 Status: Completed hydromorphone 0.5 mg, 0.25 mL, Route: IVP, Drug form: INJ, ONCE, Dosing Weight 109.091, kg, Pr iority: STAT, Start date: 11/05/17 20:25:00 CDT, Stop date: 11/05/17 20:25:00 CD T Notes: Same as Dilaudid Start Date: 11/05/17 Stop Date: 11/05/17 Status: Completed insulin lispro 1 unit, 0.01 mL, Route: SUB-Q, Drug form: SOLN, TID-Before Meals, Dosing Weight 103.9, kg, PRN Blood Glucose Results, Start date: 11/07/17 0:07:00 CDT, Duration : 30 day, Stop date: 12/07/17 0:06:00 CDT Notes: (Same as: Humalog ) Roll in palms of hands gently; Do not shake `vigorou sly. "Single Patient Use Only " WASTE: F/P - Black; E - [facility] [employer] [address] able for 28 days at room temperature.Expires in days from Da te Start Date: 11/07/17 Stop Date: 11/12/17 Status: Discontinued insulin lispro 2 unit, 0.02 mL, Route: SUB-Q, Drug form: SOLN, TID-Before Meals, Dosing Weight 103.9, kg, PRN Blood Glucose Results, Start date: 11/07/17 0:07:00 CDT, Duration : 30 day, Stop date: 12/07/17 0:06:00 CDT Notes: (Same as: Humalog ) Roll in palms of hands gently; Do not shake `vigorou sly. "Single Patient Use Only " WASTE: F/P - Black; E - [facility] [address] able for 28 days at room temperature.Expires in days from Da te Start Date: 11/07/17 Stop Date: 11/12/17 Status: Discontinued insulin lispro 3 unit, 0.03 mL, Route: SUB-Q, Drug form: SOLN, TID-Before Meals, Dosing Weight 103.9, kg, PRN Blood Glucose Results, Start date: 11/07/17 0:07:00 CDT, Duration : 30 day, Stop date: 12/07/17 0:06:00 CDT Notes: (Same as: Humalog ) Roll in palms of hands gently; Do not shake `vigorou sly. "Single Patient Use Only " WASTE: F/P - Black; E - [facility] [address] able for 28 days at room temperature.Expires in days from Da te Start Date: 11/07/17 Stop Date: 11/12/17 Status: Discontinued insulin lispro 4 unit, 0.04 mL, Route: SUB-Q, Drug form: SOLN, TID-Before Meals, Dosing Weight 103.9, kg, PRN Blood Glucose Results, Start date: 11/07/17 0:07:00 CDT, Duration : 30 day, Stop date: 12/07/17 0:06:00 CDT Notes: (Same as: Humalog ) Roll in palms of hands gently; Do not shake `vigorou sly. "Single Patient Use Only " WASTE: F/P - Black; E - [facility] [address] able for 28 days at room temperature.Expires in days from Da te Start Date: 11/07/17 Stop Date: 11/12/17 Status: Discontinued insulin lispro 5 unit, 0.05 mL, Route: SUB-Q, Drug form: SOLN, TID-Before Meals, Dosing Weight 103.9, kg, PRN Blood Glucose Results, Start date: 11/07/17 0:07:00 CDT, Duration : 30 day, Stop date: 12/07/17 0:06:00 CDT Notes: (Same as: Humalog ) Roll in palms of hands gently; Do not shake `vigorou sly. "Single Patient Use Only " WASTE: F/P - Black; E - [facility] [address] able for 28 days at room temperature.Expires in days from Da te Start Date: 11/07/17 Stop Date: 11/12/17 Status: Discontinued Lasix 40 mg, 4 mL, Route: IVP, Drug form: INJ, ONCE, Dosing Weight 103.9, kg, Start da te: 11/07/17 6:01:00 CDT, Stop date: 11/07/17 6:01:00 CDT Notes: (Same as: Lasix) MEDICATION WASTE Product Size: 40 mgProduct Was savana: ___ mg Start Date: 11/07/17 Stop Date: 11/07/17 Status: Completed Lasix 40 mg, Route: IVP, Drug form: INJ, ONCALL, Dosing Weight 103.9, kg, Start date: 11/07/17 6:00:00 CDT, Duration: 30 day, Stop date: 12/07/17 5:59:00 CDT Start Date: 11/07/17 Stop Date: 11/07/17 Status: Discontinued Lasix 20 mg oral tablet 20 mg = 1 tab, PO, Daily, # 30 tab, 0 Refill(s) Start Date: 11/05/17 Stop Date: 11/12/17 Status: Discontinued levofloxacin 500 mg, 1 tab, Route: PO, Drug form: TAB, [id number], Dosing Weight 103.9, kg, For Renal dosing CrCl < 20ml/min. See comment tab., Start date: 11/12/17 17:00:00 CDT, Duration: 10 day, Stop date: 11/20/17 17:00:00 CDT, ABX Indication: Bacteremia Start Date: 11/12/17 Stop Date: 11/12/17 Status: Canceled levofloxacin 500 mg, 100 mL, Route: IV, Drug form: SOLN, Q48H, Dosing Weight 103.9, kg, Start date: 11/08/17 18:00:00 CDT, Duration: 10 day, Stop date: 11/16/17 18:00:00 CDT, ABX Indication: Bacteremia Notes: (Same as:Levaquin) Start Date: 11/08/17 Stop Date: 11/12/17 Status: Discontinued levofloxacin 500 mg oral tablet 500 mg = 1 tab, PO, [id number], # 6 tab, 0 Refill(s) Start Date: 11/12/17 Stop Date: 10/23/18 Status: Ordered linezolid 600 mg, 300 mL, Route: IVPB, Drug form: SOLN, [id number], Dosing Weight 103.9, kg, Start date: 11/06/17 5:00:00 CDT, Duration: 7 day, Stop date: 11/12/17 20:00:00 CDT, ABX Indication: ED - Suspected Sepsis Notes: (Same as: Zyvox) Start Date: 11/06/17 Stop Date: 11/08/17 Status: Discontinued Magic Mouthwash w carafate (Benadryl/Lidocaine/Maalox/Carafate) 1:1:1:1 10 mL, Route: S&SPIT, Drug Form: SUSP, Dosing Weight 103.9, kg, Q6D, Start date: 11/08/17 17:00:00 CDT, Duration: 2 day, Stop date: 11/08/17 17:00:00 CDT Notes: Benadryl 1.25ml- Mylanta 1.25ml -Lidocaine Viscous 1.25ml - Carafate 1.25 ml Start Date: 11/08/17 Stop Date: 11/08/17 Status: Completed magnesium oxide 800 mg, Route: PO, PRN, Dosing Weight 109.091, kg, PRN Abnormal Lab Result, FOR ICU USE ONLY, Start date: 11/05/17 21:57:00 CDT, Duration: 30 day, Stop date: 21:56:00 CDT Start Date: 11/05/17 Stop Date: 11/05/17 Status: Discontinued magnesium sulfate 2 gm, Route: IV, ONCE, Dosing Weight 109.091, kg, Priority: STAT, Start date: 21:22:00 CDT, Stop date: 11/05/17 21:22:00 CDT Start Date: 11/05/17 Stop Date: 11/05/17 Status: Completed magnesium sulfate 2 gm, Route: IVPB, PRN, Dosing Weight 109.091, kg, PRN Abnormal Lab Result, Star t date: 11/05/17 21:57:00 CDT, Duration: 30 day, Stop date: 12/05/17 21:56:00 CD T, FOR ICU USE ONLY Start Date: 11/05/17 Stop Date: 11/05/17 Status: Discontinued meropenem 500 mg, Route: IV, ONCE, Dosing Weight 103.9, kg, Start date: 11/06/17 23:54:00 CDT, Stop date: 11/06/17 23:54:00 CDT, ABX Indication: Bacteremia Start Date: 11/06/17 Stop Date: 11/06/17 Status: Discontinued meropenem 500 mg, Route: IVPB, Drug form: PDR/INJ, ONCE, Dosing Weight 103.9, kg, Start da te: 11/06/17 23:58:00 CDT, Stop date: 11/06/17 23:58:00 CDT, ABX Indication: Oswaldo teremia Notes: Same as Merrem MEDICATION WASTE Product Size: 500 mgProduct Wast ed: ___ mg Start Date: 11/06/17 Stop Date: 11/07/17 Status: Completed meropenem 500 mg, Route: IVPB, Drug form: PDR/INJ, [id number], Dosing Weight 103.9, kg, CrCL= < 10 ml/min or IHD, Extended infusion, infuse over 3 hours, Start date: 11/06/17 5:00:00 CDT, Duration: 7 day, Stop date: 11/12/17 5:00:00 CDT, ABX Indication: ED - Susp... Notes: Same as Merrem MEDICATION WASTE Product Size: 500 mgProduct Wast ed: ___ mg Start Date: 11/06/17 Stop Date: 11/08/17 Status: Discontinued metoclopramide 5 mg, 1 mL, Route: IVP, Drug form: INJ, Q6H, Dosing Weight 103.9, kg, Start date : 11/06/17 12:00:00 CDT, Stop date: 11/07/17 18:00:00 CDT Notes: (Same as: Roxana) Start Date: 11/06/17 Stop Date: 11/07/17 Status: Completed metoclopramide 10 mg, 2 mL, Route: IVP, Drug form: INJ, Q8H, Dosing Weight 103.9, kg, PRN Nause a & Vomiting, Start date: 11/06/17 1:41:00 CDT, Stop date: 11/08/17 1:40:00 CDT Notes: (Same as: Roxana) Start Date: 11/06/17 Stop Date: 11/06/17 Status: Discontinued metoclopramide 5 mg, 1 mL, Route: IVP, Drug form: INJ, Q6H, Dosing Weight 103.9, kg, PRN Nausea & Vomiting, Start date: 11/06/17 4:23:00 CDT, Stop date: 11/07/17 22:03:00 CDT Notes: (Same as: Sevenlan) Start Date: 11/06/17 Stop Date: 11/06/17 Status: Discontinued MiraLax 17 gm, Route: PO, ONCE, Dosing Weight 103.9, kg, Start date: 11/06/17 4:04:00 CD T, Stop date: 11/06/17 4:04:00 CDT Start Date: 11/06/17 Stop Date: 11/06/17 Status: Discontinued MiraLax 17 gm, 1 pkt, Route: PO, Drug form: PWDR, Daily, Dosing Weight 103.9, kg, Start date: 11/06/17 9:00:00 CDT, Duration: 30 day, Stop date: 12/05/17 9:00:00 CDT Notes: Dissolve in 8 oz of water or juice.(Same as: Miralax) Start Date: 11/06/17 Stop Date: 11/12/17 Status: Discontinued MiraLax 17 gm, 1 pkt, Route: PO, Drug form: PWDR, Daily, Dosing Weight 103.9, kg, PRN Co nstipation, Start date: 11/06/17 4:06:00 CDT, Duration: 30 day, Stop date: 12/06 4:05:00 CDT Notes: Dissolve in 8 oz of water or juice.(Same as: Miralax) Start Date: 11/06/17 Stop Date: 11/06/17 Status: Discontinued morphine Sulfate 2 mg, Route: IV, Q4H, Dosing Weight 103.9, kg, Start date: 11/08/17 17:52:00 CDT , Duration: 30 day, Stop date: 12/08/17 16:00:00 CDT Start Date: 11/08/17 Stop Date: 11/08/17 Status: Discontinued morphine Sulfate 2 mg, 0.5 mL, Route: IV, Drug form: SOLN, Q6H, Dosing Weight 103.9, kg, PRN Pain Score 7-10, Start date: 11/09/17 16:27:00 CDT, Duration: 2 day, Stop date: 10/23 05/11 16:26:00 CDT Notes: (Same as:MORPhine Sulfate) Start Date: 11/09/17 Stop Date: 11/11/17 Status: Completed morphine Sulfate 2 mg, 0.5 mL, Route: IVP, Drug form: SOLN, ONCE, Dosing Weight 109.091, kg, Prio rity: STAT, Start date: 11/05/17 17:06:00 CDT, Stop date: 11/05/17 17:06:00 CDT Notes: (Same as:MORPhine Sulfate) Start Date: 11/05/17 Stop Date: 11/05/17 Status: Completed morphine Sulfate 2 mg, 0.5 mL, Route: IV, Drug form: SOLN, Q4H, Dosing Weight 103.9, kg, PRN Pain Score 6-10, Start date: 11/08/17 17:59:00 CDT, Duration: 30 day, Stop date: 17:58:00 CDT Notes: (Same as:MORPhine Sulfate) Start Date: 11/08/17 Stop Date: 11/08/17 Status: Discontinued morphine Sulfate 2 mg, 0.5 mL, Route: IVP, Drug form: SOLN, ONCE, Dosing Weight 103.9, kg, Start date: 11/08/17 13:38:00 CDT, Stop date: 11/08/17 13:38:00 CDT Notes: (Same as:MORPhine Sulfate) Start Date: 11/08/17 Stop Date: 11/08/17 Status: Completed morphine Sulfate 2 mg, Route: IV, Q4H, Dosing Weight 103.9, kg, Start date: 11/08/17 20:00:00 CDT , Duration: 30 day, Stop date: 12/08/17 16:00:00 CDT Start Date: 11/08/17 Stop Date: 11/08/17 Status: Canceled NIFEdipine 30 mg oral tablet, extended release 30 mg = 1 tab, PO, Q12H, # 60 tab, 0 Refill(s) Start Date: 11/12/17 Status: Ordered NIFEdipine 30 mg oral tablet, extended release 30 mg, 1 tab, Route: PO, Drug form: ERTAB, Q12H, Dosing Weight 103.9, kg, Start date: 11/10/17 9:00:00 CDT, Stop date: 12/09/17 9:00:00 CDT Notes: (Same as: Adalat CC, Procardia XL) Give on empty stomach. Take 1 hour be fore or 2 hours after meal; "Avoid grapefruit and grapefruit juice". Do not cru sh Start Date: 11/10/17 Stop Date: 11/12/17 Status: Discontinued NIFEdipine 30 mg oral tablet, extended release 30 mg, 1 tab, Route: PO, Drug form: ERTAB, Daily, Dosing Weight 103.9, kg, Start date: 11/09/17 16:00:00 CDT, Stop date: 12/09/17 9:00:00 CDT Notes: (Same as: Adalat CC, Procardia XL) Give on empty stomach. Take 1 hour be fore or 2 hours after meal; "Avoid grapefruit and grapefruit juice". Do not cru sh Start Date: 11/09/17 Stop Date: 11/09/17 Status: Discontinued Morley 5/325 oral tablet 1 tab, Route: PO, Drug Form: TAB, Dosing Weight 103.9, kg, ONCE, PRN Pain Score 1-5, Start date: 11/09/17 13:10:00 CDT Notes: (Same as: Morley 325/5) Do not exceed 4gm/day of acetaminophen. Start Date: 11/09/17 Stop Date: 11/09/17 Status: Completed Morley 5/325 oral tablet 1 tab, Route: PO, Drug Form: TAB, Dosing Weight 103.9, kg, ONCE, Start date: 4:08:00 CDT, Stop date: 11/06/17 4:08:00 CDT Notes: (Same as: Morley 325/5) Do not exceed 4gm/day of acetaminophen. Start Date: 11/06/17 Stop Date: 11/06/17 Status: Discontinued Morley 5/325 oral tablet 1 tab, Route: PO, Drug Form: TAB, Dosing Weight 103.9, kg, ONCE, PRN Pain Score 4-6, Start date: 11/06/17 4:41:00 CDT Notes: (Same as: Morley 325/5) Do not exceed 4gm/day of acetaminophen. Start Date: 11/06/17 Stop Date: 11/09/17 Status: Completed nystatin topical 100,000 units/g powder 1 appl, Route: TOP, PRN, Drug form: PWDR, PRN For Fungal Prophylaxis, Start date : 11/05/17 21:57:00 CDT, Duration: 30 day, Stop date: 12/05/17 21:56:00 CDT Notes: (Same as:Mycostatin, Nilstat) For external use only. Start Date: 11/05/17 Stop Date: 11/07/17 Status: Discontinued ondansetron 4 mg, 2 mL, Route: IVP, Drug form: INJ, ONCE, Dosing Weight 109.091, kg, Priorit y: STAT, Start date: 11/05/17 20:25:00 CDT, Stop date: 11/05/17 20:25:00 CDT Notes: (Same as: Zofran) MEDICATION WASTE Product Size: 4 mgProduct Was savana: 0 mg Start Date: 11/05/17 Stop Date: 11/05/17 Status: Completed pantoprazole 40 mg, 1 tab, Route: PO, Drug form: ECTAB, Before Breakfast, Dosing Weight 103.9 , kg, Start date: 11/12/17 11:30:00 CDT, Duration: 30 day, Stop date: 12/12/17 7 :30:00 CDT Notes: Tablet should not be chewed or crushed.(Same as: Protonix) Start Date: 11/12/17 Stop Date: 11/12/17 Status: Discontinued pantoprazole 40 mg oral enteric coated tablet 40 mg = 1 tab, PO, Before Breakfast, # 14 tab, 0 Refill(s) Start Date: 11/12/17 Status: Ordered Phenergan 6.25 mg, 0.5 tab, Route: PO, Drug form: TAB, ONCE, Dosing Weight 103.9, kg, Star t date: 11/09/17 13:41:00 CDT, Stop date: 11/09/17 13:41:00 CDT Notes: (Same as: Phenergan)6.25 mg = 1/2 x 12.5 mg TAB Start Date: 11/09/17 Stop Date: 11/09/17 Status: Completed polyethylene glycol 3350 oral kit 17 gm, PO, Daily, Please mix 1 cap full of powder into 6 oz of water as needed f or constipation, # 1 box, 0 Refill(s) Start Date: 11/12/17 Status: Ordered potassium chloride 20 mEq, Route: IVPB, PRN, Dosing Weight 109.091, kg, PRN Abnormal Lab Result, Vi a central line, Start date: 11/05/17 21:57:00 CDT, Duration: 30 day, Stop date: 12/05/17 21:56:00 CDT, FOR ICU USE ONLY Start Date: 11/05/17 Stop Date: 11/05/17 Status: Discontinued potassium chloride 10 mEq, Route: IVPB, PRN, Dosing Weight 109.091, kg, PRN Abnormal Lab Result, Vi a peripheral line, Start date: 11/05/17 21:57:00 CDT, Duration: 30 day, Stop harish e: 12/05/17 21:56:00 CDT, FOR ICU USE ONLY Start Date: 11/05/17 Stop Date: 11/05/17 Status: Discontinued potassium chloride 20 mEq, Route: NJ, Drug form: LIQ, PRN, Dosing Weight 109.091, kg, PRN Abnormal Lab Result, Start date: 11/05/17 21:57:00 CDT, Duration: 30 day, Stop date: 11/22 08/09 21:56:00 CDT, FOR ICU USE ONLY Start Date: 11/05/17 Stop Date: 11/05/17 Status: Discontinued potassium chloride 20 mEq, Route: PO, Drug form: ERTAB, PRN, Dosing Weight 109.091, kg, PRN Abnorma l Lab Result, Start date: 11/05/17 21:57:00 CDT, Duration: 30 day, Stop date: 21:56:00 CDT, FOR ICU USE ONLY Start Date: 11/05/17 Stop Date: 11/05/17 Status: Discontinued potassium phosphate 45 mmol, Route: IVPB, PRN, Dosing Weight 109.091, kg, PRN Abnormal Lab Result, S tart date: 11/05/17 21:57:00 CDT, Duration: 30 day, Stop date: 12/05/17 21:56:00 CDT, FOR ICU USE ONLY Start Date: 11/05/17 Stop Date: 11/05/17 Status: Discontinued potassium phosphate 30 mmol, Route: IVPB, PRN, Dosing Weight 109.091, kg, PRN Abnormal Lab Result, S tart date: 11/05/17 21:57:00 CDT, Duration: 30 day, Stop date: 12/05/17 21:56:00 CDT, FOR ICU USE ONLY Start Date: 11/05/17 Stop Date: 11/05/17 Status: Discontinued potassium phosphate 15 mmol, Route: IVPB, PRN, Dosing Weight 109.091, kg, PRN Abnormal Lab Result, S tart date: 11/05/17 21:57:00 CDT, Duration: 30 day, Stop date: 12/05/17 21:56:00 CDT, FOR ICU USE ONLY Start Date: 11/05/17 Stop Date: 11/05/17 Status: Discontinued potassium phosphate-sodium phosphate 250 mg-280 mg-160 mg oral powder for recons titution 2 pkt, Route: PO, Dosing Weight 109.091, kg, PRN, PRN Abnormal Lab Result, FOR I CU USE ONLY, Start date: 11/05/17 21:57:00 CDT, Duration: 30 day, Stop date: 21:56:00 CDT Start Date: 11/05/17 Stop Date: 11/05/17 Status: Discontinued propofol 10 mg/mL (Titrate.) IV 500 mg 500 mg, 50 mL, Rate: Titrate, Start Dose: 5 microgram/kg/min, Titration: 5 micro gram/kg/min every 15 min, Goal(s): RASS -2, Max Dose: 50 microgram/kg/min, Route : IV, Dosing Weight 103.9 kg, Total Volume: 50, Start date: 11/07/17 10:42:00 CD T, Duration... Start Date: 11/07/17 Stop Date: 11/07/17 Status: Discontinued Saline Flush 0.9% 10 mL, Route: MISC, Drug Form: INJ, Dosing Weight 109.091, kg, PRN, PRN Line Flu sh, Start date: 11/05/17 16:51:00 CDT, Duration: 30 day, Stop date: 12/05/17 16: 50:00 CDT Notes: (Same as: BD Posiflush) Start Date: 11/05/17 Stop Date: 11/12/17 Status: Discontinued Saline Flush 0.9% 10 ml, Route: IVP, Drug Form: INJ, Dosing Weight 109.091, kg, PRN, PRN Line Flus h, Start date: 11/05/17 21:57:00 CDT, Duration: 30 day, Stop date: 12/05/17 21:5 6:00 CDT Notes: (Same as: BD Posiflush) Start Date: 11/05/17 Stop Date: 11/07/17 Status: Discontinued Saline Flush 0.9% 10 ml, Route: IVP, Drug Form: INJ, Dosing Weight 109.091, kg, Q12H, Start date: 11/06/17 9:00:00 CDT, Duration: 30 day, Stop date: 12/05/17 21:00:00 CDT Notes: (Same as: BD Posiflush) Start Date: 11/06/17 Stop Date: 11/07/17 Status: Discontinued senna 8.6 mg oral tablet 17.2 mg, 2 tab, Route: PO, Drug Form: TAB, Dosing Weight 103.9, kg, Daily, Start date: 11/06/17 4:04:00 CDT, Duration: 30 day, Stop date: 12/06/17 9:00:00 CDT Notes: (Same as: Lloyd) Start Date: 11/06/17 Stop Date: 11/06/17 Status: Discontinued senna 8.6 mg oral tablet 17.2 mg, 2 tab, Route: PO, Drug Form: TAB, Dosing Weight 103.9, kg, BID, Start d ate: 11/06/17 9:00:00 CDT, Duration: 30 day, Stop date: 12/05/17 17:00:00 CDT Notes: (Same as: Lloyd) Start Date: 11/06/17 Stop Date: 11/12/17 Status: Discontinued senna 8.6 mg oral tablet 8.6 mg = 1 tab, PO, BID, as needed with plenty of water for constipation, # 30 t ab, 0 Refill(s) Start Date: 11/12/17 Stop Date: 11/21/17 Status: Completed sodium phosphate 45 mmol, Route: IVPB, PRN, Dosing Weight 109.091, kg, PRN Abnormal Lab Result, S tart date: 11/05/17 21:57:00 CDT, Duration: 30 day, Stop date: 12/05/17 21:56:00 CDT, FOR ICU USE ONLY Start Date: 11/05/17 Stop Date: 11/05/17 Status: Discontinued sodium phosphate 30 mmol, Route: IVPB, PRN, Dosing Weight 109.091, kg, PRN Abnormal Lab Result, S tart date: 11/05/17 21:57:00 CDT, Duration: 30 day, Stop date: 12/05/17 21:56:00 CDT, FOR ICU USE ONLY Start Date: 11/05/17 Stop Date: 11/05/17 Status: Discontinued sodium phosphate 15 mmol, Route: IVPB, PRN, Dosing Weight 109.091, kg, PRN Abnormal Lab Result, S tart date: 11/05/17 21:57:00 CDT, Duration: 30 day, Stop date: 12/05/17 21:56:00 CDT, FOR ICU USE ONLY Start Date: 11/05/17 Stop Date: 11/05/17 Status: Discontinued tramadol 100 mg oral tablet, extended release 100 mg = 1 tab, PO, Daily, # 30 tab, 0 Refill(s) Start Date: 11/12/17 Status: Ordered Tylenol 650 mg, 2 tab, Route: PO, Drug form: TAB, Q6H, Dosing Weight 103.9, kg, PRN For Temp > 100.4 F, Start date: 11/06/17 0:57:00 CDT, Duration: 30 day, Stop date: 12/06/17 0:56:00 CDT Notes: Do not exceed 4 gm/day. (Same as: Tylenol) Start Date: 11/06/17 Stop Date: 11/12/17 Status: Discontinued Tylenol 650 mg, 2 tab, Route: PO, Drug form: TAB, ONCE, Dosing Weight 109.091, kg, Prior ity: STAT, Start date: 11/05/17 16:52:00 CDT, Stop date: 11/05/17 16:52:00 CDT Notes: Do not exceed 4 gm/day. (Same as: Tylenol) Start Date: 11/05/17 Stop Date: 11/05/17 Status: Completed Tylenol with Codeine #3 oral tablet 1 tab, Route: PO, Drug Form: TAB, Dosing Weight 103.9, kg, Q6H, PRN Pain Score 1 -3, Start date: 11/06/17 4:33:00 CDT, Duration: 30 day, Stop date: 12/06/17 4:32 :00 CDT Notes: Do not exceed 4gm/day of acetaminophen. (Same as: Tylenol with Codeine # 3) Start Date: 11/06/17 Stop Date: 11/12/17 Status: Discontinued vancomycin + Sodium Chloride 0.9% IV 500 mL 2,000 mg, Route: IVPB, ONCE, Dosing Weight 109.091, kg, Time Critical Medication , Priority: STAT, Start date: 11/05/17 16:51:00 CDT, Stop date: 11/05/17 16:51:0 0 CDT, ABX Indication: Other (specify in Comments) Notes: TIME CRITICAL MEDICATION(Same As: Vancocin)Infusion rate< 1000 mg: infuse over 1 [id number] - 1500 mg: infuse over 1.5 hoursVancomycin FOR IV SET [id number] - 2000 mg: infuse over 2 hours> 2001 mg: infuse over 2.5 hoursFor adult patients only: Round to nearest 250 mg per Medical Staff approval MEDICATION WASTE Product Size: 1000 mgProduct Wasted: ___ mg Start Date: 11/05/17 Stop Date: 11/05/17 Status: Completed Visipaque 320mg/ml 130 mL, Route: IVP, Drug Form: SOLN, Dosing Weight 109.091, kg, ONCALL, STAT, St art date: 11/05/17 19:38:00 CDT, Duration: 1 doses or times, Dose = 2.2ml/kg, M ax dose = 150ml -- "To be infused by Radiology Staff ONLY" Start Date: 11/05/17 Stop Date: 11/05/17 Status: Completed Zofran 8 mg, 1 tab, Route: PO, Drug form: TAB, Q8H, Dosing Weight 103.9, kg, PRN Nausea , Start date: 11/06/17 0:57:00 CDT, Duration: 30 day, Stop date: 12/06/17 0:56:0 0 CDT Notes: (Same as: Zofran) Start Date: 11/06/17 Stop Date: 11/06/17 Status: Discontinued Results ELECTROLYTES 1 2 3 Most recent to oldest [Reference Range]: 140 mEq/L (11/10/17 5:17 AM) 140 mEq/L (11/09/17 4:33 AM) 139 mEq/L (11/07/17 5:21 AM) Sodium Lvl [135-145 mEq/L] 3.9 mEq/L (11/10/17 5:17 AM) 3.9 mEq/L (11/09/17 4:33 AM) 4.4 mEq/L (11/07/17 5:21 AM) Potassium Lvl [3.5-5.1 mEq/L] 105 mEq/L (11/10/17 5:17 AM) 104 mEq/L (11/09/17 4:33 AM) 105 mEq/L (11/07/17 5:21 AM) Chloride Lvl [95-109 mEq/L] 27 mEq/L (11/10/17 5:17 AM) 24 mEq/L (11/09/17 4:33 AM) 20 mEq/L *LOW* (11/07/17 5:21 AM) CO2 [24-32 mEq/L] 11.9 mEq/L (11/10/17 5:17 AM) 15.9 mEq/L (11/09/17 4:33 AM) 18.4 mEq/L (11/07/17 5:21 AM) AGAP [10.0-20.0 mEq/L] CHEM PANEL 1 2 3 Most recent to oldest [Reference Range]: 7.16 mg/dL *HI* (11/10/17 5:17 AM) 6.06 mg/dL *HI* (11/09/17 4:33 AM) 6.53 mg/dL *HI* (11/07/17 5:21 AM) Creatinine Lvl [0.50-1.40 mg/dL] 7 mL/min/1.73m2 1 *NA* (11/10/17 5:17 AM) 9 mL/min/1.73m2 2 *NA* (11/09/17 4:33 AM) 8 mL/min/1.73m2 3 *NA* (11/07/17 5:21 AM) eGFR 28 mg/dL *HI* (11/10/17 5:17 AM) 25 mg/dL *HI* (11/09/17 4:33 AM) 33 mg/dL *HI* (11/07/17 5:21 AM) BUN [7-22 mg/dL] 119 mg/dL *HI* (11/10/17 5:17 AM) 80 mg/dL (11/09/17 4:33 AM) 88 mg/dL (7/17/18 5:21 AM) Glucose Lvl [70-99 mg/dL] 6.5 g/dL (11/05/17 10:36 PM) Total Protein [6.4-8.4 g/dL] 2.6 g/dL *LOW* (11/05/17 10:36 PM) Albumin Lvl [3.5-5.0 g/dL] 3.9 g/dL (11/05/17 10:36 PM) Globulin [2.7-4.2 g/dL] 0.7 (11/05/17 10:36 PM) A/G Ratio [0.7-1.6] 7.1 mg/dL *LOW* (11/10/17 5:17 AM) 7.7 mg/dL *LOW* (11/09/17 4:33 AM) 7.0 mg/dL 4 *CRIT* (11/07/17 5:21 AM) Calcium Lvl [8.5-10.5 mg/dL] 4.7 mg/dL *HI* (11/10/17 5:17 AM) 3.8 mg/dL (11/07/17 5:21 AM) 4.4 mg/dL (11/06/17 3:04 PM) Phosphorus [2.5-4.5 mg/dL] 2.2 mg/dL (11/10/17 5:17 AM) 1.9 mg/dL (11/07/17 5:21 AM) 1.8 mg/dL (11/06/17 3:04 PM) Magnesium Lvl [1.8-2.4 mg/dL] 24 unit/L (11/05/17 10:36 PM) ALT [0-65 unit/L] 37 unit/L (11/05/17 10:36 PM) AST [0-37 unit/L] 82 unit/L (11/05/17 10:36 PM) Alk Phos [39-136 unit/L] 0.4 mg/dL (11/05/17 10:36 PM) Bili Total [0.2-1.3 mg/dL] 0.1 mg/dL (11/05/17 10:36 PM) Bili Direct [0.0-0.3 mg/dL] 0.3 mg/dL (11/05/17 10:36 PM) Bili Indirect [0.0-1.0 mg/dL] 92 unit/L (11/08/17 2:12 PM) 272 unit/L (11/05/17 10:36 PM) Lipase Lvl [73-393 unit/L] 1.4 mMol/L (11/06/17 4:21 PM) 0.8 mMol/L (11/05/17 10:36 PM) 1.4 mMol/L (11/05/17 4:40 PM) Lactic Acid Lvl [0.5-2.2 mMol/L] 29.23 ng/mL 5 *CRIT* (11/07/17 5:21 AM) 3.66 ng/mL 6 *CRIT* (11/05/17 5:00 PM) Procalcitonin Lvl [0.00-0.10 ng/mL] <10 pg/mL 7 *LOW* (11/08/17 2:12 PM) Vitamin D 1,25 (OH)2 Total <10 pg/mL *NA* (11/08/17 2:12 PM) Vitamin D2 1,25 (OH)2 <10 pg/mL 8 *NA* (11/08/17 2:12 PM) Vitamin D3 1,25 (OH)2 1Result Comment: The eGFR is calculated using [...] BMI. 4Result Comment: Critical Result(s) called to Tisha Medina at 11/07/2017 08:08 by lwb . Read back OK. 5Result Comment: Critical Result(s) called to olga irby at _11/07/2017 07:20 by_.radha Read back OK. 6Result Comment: CRITICAL RESULT CALLED TO MADONNA SEGURA AT 11/05/2017 18:41 BY SXP. READ BACK OK. 7Result Comment: Reference Range: Adults: 21 - 65 8Result Comment: Performed At: [facility] [address] [place] [address] [id number] Ezra Catherine MD Ph:[phone] CARDIAC ENZYMES 1 2 3 Most recent to oldest [Reference Range]: 228 unit/L *HI* (11/05/17 5:00 PM) Total CK [12-191 unit/L] 0.192 ng/mL 1 *CRIT* (11/09/17 9:36 PM) 0.155 ng/mL 2 *CRIT* (11/09/17 4:57 PM) 0.186 ng/mL 3 *CRIT* (11/08/17 5:35 PM) Troponin-T [0.000-0.100 ng/mL] 0.07 ng/mL (11/09/17 9:36 PM) 0.05 ng/mL (11/09/17 4:57 PM) 0.08 ng/mL (11/09/17 4:33 AM) Troponin-I [0.00-0.40 ng/mL] 1Result Comment: Critical Result(s) called to Odessa Murray at 11/09/2017 22:20_ by NT. Read back OK. 2Result Comment: Critical Result(s) called to Wilfred at 11/09/2017 18:59 by BLJ. Read back OK. 3Result Comment: Critical Result(s) called to Rhona MCBRIDE at 11/08/2017 20:04 by bp. Read back OK. SPECIAL CHEMISTRY 1 2 3 Most recent to oldest [Reference Range]: 5.1 % (11/07/17 5:21 AM) Hgb A1C [<=5.6 %] PARATHYROID PROFILE 1 2 3 Most recent to oldest [Reference Range]: 0.86 mMol/L 1 *CRIT* (11/09/17 4:57 PM) 0.83 mMol/L 2 *CRIT* (11/07/17 5:21 AM) Ca Ion WB [1.05-1.25 mMol/L] 0.89 mMol/L 3 *CRIT* (11/09/17 4:57 PM) 0.82 mMol/L 4 *CRIT* (11/07/17 5:21 AM) Ca Norm WB [1.05-1.25 mMol/L] 738.2 pg/mL *HI* (11/08/17 2:12 PM) PTH Intact [18.4-80.1 pg/mL] 1Result Comment: Critical Result(s) called to Jocelyn Wellington at 11/09/2017 17:58 by NT. Read back OK. 2Result Comment: Critical Result(s) called to Disha Irving at 11/07/2017 06:16 by AC. Read back OK. 3Result Comment: Critical Result(s) called to Jocelyn Wellington at 11/09/2017 17:58 by NT. Read back OK. 4Result Comment: Critical Result(s) called to Disha Irving at 11/07/2017 06:16 by AC. Read back OK. URINE AND STOOL 1 2 3 Most recent to oldest [Reference Range]: Clear (11/05/17 6:15 PM) UA Turbidity [Clear] Yellow *NA* (11/05/17 6:15 PM) UA Color [Yellow] 7.0 (11/05/17 6:15 PM) UA pH [5.0-8.0] 1.015 (11/05/17 6:15 PM) UA Spec Grav [<=1.030] 250 mg/dL *ABN* (11/05/17 6:15 PM) UA Glucose [Negative mg/dL] Small *ABN* (11/05/17 6:15 PM) UA Blood [Negative] Negative *NA* (11/05/17 6:15 PM) UA Ketones [Negative] >=300 mg/dL *ABN* (11/05/17 6:15 PM) UA Protein [Negative mg/dL] 0.2 EU/dL (11/05/17 6:15 PM) UA Urobilinogen [0.1-1.0 EU/dL] Negative *NA* (11/05/17 6:15 PM) UA Bili [Negative] Negative (11/05/17 6:15 PM) UA Leuk Est [Negative] Negative (11/05/17 6:15 PM) UA Nitrite [Negative] None Seen (11/05/17 6:15 PM) UA WBC [None Seen] 0-2 /HPF (11/05/17 6:15 PM) UA RBC [0-2 /HPF] Occasional /HPF (11/05/17 6:15 PM) UA Bacteria [None Seen /HPF] Rare /LPF (11/05/17 6:15 PM) UA Sq Epi [Few /LPF] Occasional *NA* (11/05/17 6:15 PM) UA Mucus IMMUNOLOGY 1 2 3 Most recent to oldest [Reference Range]: Negative *NA* (11/05/17 10:36 PM) HIV Ag/Ab 4th Gen [Negative] Negative *NA* (11/06/17 4:21 PM) Hep Bs Ag [Negative] Negative *NA* (11/06/17 4:35 PM) Hep B Core IgM [Negative] 276.2 mIU/mL *HI* (11/08/17 2:12 PM) Hep Bs Ab [<=7.4 mIU/mL] Negative *NA* (11/06/17 4:35 PM) Hep B Core Ab [Negative] Negative *NA* (11/08/17 2:12 PM) Hep C Ab HEMATOLOGY 1 2 3 Most recent to oldest [Reference Range]: 5.4 K/CMM (11/10/17 5:17 AM) 7.7 K/CMM (11/07/17 5:21 AM) 8.5 K/CMM (11/05/17 8:40 PM) WBC [3.7-10.4 K/CMM] 2.66 M/CMM *LOW* (11/10/17 5:17 AM) 2.58 M/CMM *LOW* (11/07/17 5:21 AM) 3.01 M/CMM *LOW* (11/05/17 8:40 PM) RBC [4.20-5.40 M/CMM] 8.0 g/dL *LOW* (11/10/17 5:17 AM) 8.0 g/dL *LOW* (11/07/17 5:21 AM) 9.2 g/dL *LOW* (11/05/17 8:40 PM) Hgb [12.0-16.0 g/dL] 24.8 % *LOW* (11/10/17 5:17 AM) 23.9 % *LOW* (11/07/17 5:21 AM) 28.3 % *LOW* (11/05/17 8:40 PM) Hct [36.0-48.0 %] 93.1 fL (11/10/17 5:17 AM) 92.4 fL (11/07/17 5:21 AM) 93.9 fL (11/05/17 8:40 PM) MCV [80.0-98.0 fL] 30.0 pg (11/10/17 5:17 AM) 30.8 pg (11/07/17 5:21 AM) 30.4 pg (11/05/17 8:40 PM) MCH [27.0-31.0 pg] 32.2 g/dL (11/10/17:17 AM) 33.4 g/dL (11/07/17 5:21 AM) 32.4 g/dL (11/05/17 8:40 PM) MCHC [32.0-36.0 g/dL] 15.0 % *HI* (11/10/17:17 AM) 15.5 % *HI* (11/07/17:21 AM) 15.7 % *HI* (11/05/17 8:40 PM) RDW [11.5-14.5 %] 8.8 fL (11/10/17:17 AM) 9.5 fL (11/07/17 5:21 AM) 8.5 fL (11/05/17 8:40 PM) MPV [7.4-10.4 fL] 185 K/CMM (11/10/17:17 AM) 136 K/CMM (11/07/17 5:21 AM) 194 K/CMM (11/05/17 8:40 PM) Platelet [133-450 K/CMM] 53.5 % (11/10/17 5:17 AM) 75.6 % *HI* (11/07/17:21 AM) 91.0 % *HI* (11/05/17 8:40 PM) Segs [45.0-75.0 %] 32.4 % (11/10/17:17 AM) 15.4 % *LOW* (11/07/17 5:21 AM) 6.3 % *LOW* (11/05/17 8:40 PM) Lymphocytes [20.0-40.0 %] 10.9 % (11/10/17 5:17 AM) 8.2 % (11/07/17 5:21 AM) 1.9 % *LOW* (11/05/17 8:40 PM) Monocytes [2.0-12.0 %] 2.5 % (11/10/17 5:17 AM) 0.3 % (11/07/17 5:21 AM) 0.4 % (11/05/17 8:40 PM) Eosinophils [0.0-4.0 %] 0.7 % (11/10/17 5:17 AM) 0.5 % (11/07/17 5:21 AM) 0.4 % (11/05/17 8:40 PM) Basophils [0.0-1.0 %] 2.9 K/CMM (11/10/17 5:17 AM) 5.8 K/CMM (11/07/17 5:21 AM) 7.7 K/CMM (11/05/17 8:40 PM) Neutrophils # [1.5-8.1 K/CMM] 1.7 K/CMM (11/10/17 5:17 AM) 1.2 K/CMM (11/07/17 5:21 AM) 0.5 K/CMM *LOW* (11/05/17 8:40 PM) Lymphocytes # [1.0-5.5 K/CMM] 0.6 K/CMM (11/10/17 5:17 AM) 0.6 K/CMM (11/07/17 5:21 AM) 0.2 K/CMM (11/05/17 8:40 PM) Monocytes # [0.0-0.8 K/CMM] 0.1 K/CMM (11/10/17 5:17 AM) 0.1 K/CMM (11/05/17 5:00 PM) Eosinophils # [0.0-0.5 K/CMM] 13.7 seconds (11/05/17 5:00 PM) PT [12.0-14.7 seconds] 1.05 (11/05/17 5:00 PM) INR [0.85-1.17] 32.1 seconds (11/05/17 5:00 PM) PTT [22.9-35.8 seconds] MOLECULAR DIAGNOSTIC 1 2 3 Most recent to oldest [Reference Range]: Not Detected (11/05/17 4:41 PM) E. coli [Not Detected] Not Detected (11/05/17 4:41 PM) K. oxytoca [Not Detected] Detected *ABN* (11/05/17 4:41 PM) K. pneumoniae [Not Detected] Not Detected (11/05/17 4:41 PM) P. aeruginosa [Not Detected] Not Detected (11/05/17 4:41 PM) Acinetobacter spp. [Not Detected] Not Detected (11/05/17 4:41 PM) Citrobacter spp. [Not Detected] Not Detected (11/05/17 4:41 PM) Enterobacter spp. [Not Detected] Not Detected (11/05/17 4:41 PM) Proteus spp. [Not Detected] Not Detected (11/05/17 4:41 PM) CTX-M (ESBL) [Not Detected] Not Detected (11/05/17 4:41 PM) IMP (carbapenemase) [Not Detected] Not Detected (11/05/17 4:41 PM) KPC (carbapenemase) [Not Detected] Not Detected (11/05/17 4:41 PM) NDM (carbapenemase) [Not Detected] Not Detected (11/05/17 4:41 PM) OXA (carbapenemase) [Not Detected] Not Detected (11/05/17 4:41 PM) VIM (carbapenemase) [Not Detected] BACTERIAL - SEROLOGY 1 2 3 Most recent to oldest [Reference Range]: Negative (11/05/17 10:36 PM) MRSA by PCR Microbiology Reports TEST: Culture: Catheter Tip STATUS: Auth (Verified) BODY SITE: SOURCE: Catheter Tip COLLECTED DATE/TIME: 11/08/17 2:12 PM FINAL REPORT No Growth TEST: Culture: Urine STATUS: Auth (Verified) BODY SITE: SOURCE: Urine, Catheterized COLLECTED DATE/TIME: 11/05/17 8:38 PM FINAL REPORT No Growth Immunizations Given and Recorded Vaccine Date Status [...] No.1 Smoking Status Never smoker; Ready to prado ge: No; Concerns about tobacco use in household: No; Exposure to Tobacco Smoke None; Cig arette Smoking Last 365 Days No; Reg Smoking Cessation Counseling No entered on: 11/05/17 1pt denies current alcohol use Assessment and Plan Extracted from: Title: Team A Med Student Progress Author: Tru Valenzuela ate: 11/12/17 Note Chief Complaint Patient is a 42 y/o [...] focal deficits Labs 11/11 0901 POC Performing LocatioSee Note Glucose POC98 11/10 2045 POC Performing LocatioSee Note Glucose POC88 11/10 1138 POC Performing LocatioSee Note Glucose FED965 H 11/10 0732 POC Performing LocatioSee Note Glucose DAH461 H 11/10 0517 Glucose Oma897 H BUN28 H Creatinine Lvl7.16 H Sodium Sdb471 Potassium Lvl3.9 Chloride Fki281 CO227 AGAP11.9 Calcium Lvl7.1 L eGFR7 Magnesium Lvl2.2 Phosphorus4.7 H WBC5.4 RBC2.66 L Hgb8.0 L Hct24.8 L MCV93.1 MCH30.0 MCHC32.2 RDW15.0 H Miffjdzj785 MPV8.8 Segs53.5 Nwodjfjbh74.9 Lmyzjnjksxf28.4 Eosinophils2.5 Basophils0.7 Segs-Bands #2.9 Lymphocytes #1.7 Monocytes #0.6 Eosinophils #0.1 Medications 11/10/17 9:00 NIFEdipine (NIFEdipine 30 mg [...] t ablet) 17.2 mg PO BID ASSESSMENT & PLAN Klebsiella Sepsis: - 2/2 Cath line [...] mg- held DVT prophylaxis: Subq heparin Extracted from: Title: IR Physician Consult Note Author: Tommy Jimenes [...] Labs: 24hr Labs 11/10 1138 POC Performing LocatioSee Note Glucose JNC505 H 11/10 0732 POC Performing LocatioSee Note Glucose EDH929 H 11/10 0517 Glucose Fud162 H BUN28 H Creatinine Lvl7.16 H Sodium Qjy872 Potassium Lvl3.9 Chloride Brz104 CO227 AGAP11.9 Calcium Lvl7.1 L eGFR7 Magnesium Lvl2.2 Phosphorus4.7 H WBC5.4 RBC2.66 L Hgb8.0 L Hct24.8 L MCV93.1 MCH30.0 MCHC32.2 RDW15.0 H Mhjcpahm150 MPV8.8 Segs53.5 Ycgldazux82.9 Ntzfdldudrb96.4 Eosinophils2.5 Basophils0.7 Segs-Bands #2.9 Lymphocytes #1.7 Monocytes #0.6 Eosinophils #0.1 11/09 2136 Troponin-I0.07 Troponin-T0.192 C 11/09 2028 POC Performing LocatioSee Note Glucose PDL666 H 11/09 1701 POC Performing LocatioSee Note Glucose POC85 11/09 1657 Ca Ion WB0.86 C Ca Norm WB0.89 C Troponin-T0.155 C Troponin-I0.05 11/08 1412 Hep Bs Ab276.2 H Hep C AbNegative Physical Examination: Gen: AAO x3, NAD VitalsTmp(F)NrufbOVPIFrU3BRS6 11/10 15:4598.849805/996516--- 11/10 11:[id number]/763401--- 11/10 07:2998.166316/835138--- 11/10 06:3798.917614/614176--- 11/10 00:2698.143761/117550--- 24 Hr Tmax: 98.7F (37.06c) at 11/09 20:0 0Vital Signs are the last 5 in the [...] IF YOU HAVE ANY QUESTIONS, PLEASE CONTACT [phone]. Extracted from: Title: History and Physical Author: Katja Pena MD te: 11/07/17 42 yo F with history of ESRD on TTS HD, T2DM, HFpEF, Hx of pancreatitis presents for SOB d/t incompliance with HD x1 month. Initially admitted to ICU for hypoxemia resp failure requiring BiPap, since improved and HDS on RAwith persistent tachycardia. However, found to have K. pneumoniae bacteremia and on Merrem & Zyvox. Renal on board. Please see internet sales manager's note for full H&P. 1.Klebsiella sepsis - 11/05 BCx = +GNR bacteremia, K pneumoni ae per Verigene - LA 1.4; WBC 8.5 - Cont Merrem and Zyvox 2.ESRD on dialysis - Renal on board - no emergent HD req'd - on TTS HD 3.Diabetes 4.Diastolic heart failure 5.Poor social situation
--- OUTSIDE RECORDS SUMMARY | 2019-09-10 20:12 | XMS REPORT | Summary of Care ---
Author Author [facility] ospital Organization [facility] Address Unknown Phone Unavailable Encounter PRIMITIVO Mariano(SANGITA) [id number] Date(s): 08/18/19 - 08/18/19 [facility] [address] [place] [address]- [phone] Encounter Diagnosis Anemia, unspecified (Final) - Discharge Disposition: Home or Self Care Attending Physician: Ekta Delgado MD Admitting Physician: Tiffani Perez MD Referring Physician: Nieves Ferrera MD Vital Signs 1 2 3 Most recent to oldest [Reference Range]: 160.02 cm (08/18/19 5:25 AM) Height 99.2 DegF *HI* (08/18/19 4:10 PM) 99.9 DegF *HI* (08/18/19 1:00 PM) 99.5 DegF *HI* (08/18/19 11:38 AM) Temperature Oral [96.4-99.1 DegF] 144/72 mmHg *HI* (08/18/19 4:00 PM) 138/85 mmHg (08/18/19 2:00 PM) 120/67 mmHg (08/18/19 1:15 PM) Blood Pressure [90-140/60-90 mmHg] 16 BRMIN (08/18/19 2:56 PM) 18 BRMIN (08/18/19 10:00 AM) 16 BRMIN (08/18/19 8:05 AM) Respiratory Rate [14-20 BRMIN] 118.636 kg (08/18/19 5:25 AM) Weight 46.33 m2 (08/18/19 5:25 AM) Body Mass Index Problem List Condition [...] Severity Status Zofran Active Phenergan Active Tylenol Swelling of throat Active [place] Active traMADol Active Medications acetaminophen 650 mg, Route: PO, Drug form: TAB, Q4H, Dosing Weight 116.636, kg, PRN Pain Scor e 1-3, For fever > 100.4. Not to exceed 4 grams in 24 hours, Start date: 08/18/19 1:31:00 CDT, Duration: 30 day, Stop date: 09/17/19 1:30:00 CDT Start Date: 08/18/19 Stop Date: 08/18/19 Status: Deleted albuterol-ipratropium 2.5-0.5 mg inhalation solution 3 mL, Route: NEB, Drug Form: SOLN, Dosing Weight 116.636, kg, PRN, PRN Respirato ry Pathway, Start date: 08/18/19 1:31:00 CDT, Duration: 30 day, Stop date: 09/16 1:30:00 CDT, 0 Notes: (Same as: Duoneb) Start Date: 08/18/19 Stop Date: 08/18/19 Status: Discontinued atorvastatin 40 mg, 1 tab, Route: PO, Drug form: TAB, Bedtime, Dosing Weight 118.636, kg, Sta rt date: 08/18/19 21:00:00 CDT, Duration: 30 day, Stop date: 09/16/19 21:00:00 C DT, 0 Notes: (Same as: Lipitor) Start Date: 08/18/19 Stop Date: 08/18/19 Status: Canceled azithromycin + Sodium Chloride 0.9% IV 250 mL 500 mg, Route: IVPB, [id number], Dosing Weight 116.636, kg, Start date: 08/18/19 1: 31:00 CDT, Duration: 3 day, Stop date: 08/20/19 1:31:00 CDT, ABX Indication: Pne umonia, 0 Notes: (Same As: Zithromax IV) Start Date: 08/18/19 Stop Date: 08/18/19 Status: Discontinued calcitriol 0.25 microgram, 1 cap, Route: PO, Drug form: CAP, Daily, Dosing Weight 118.636, kg, Start date: 08/19/19 9:00:00 CDT, Duration: 30 day, Stop date: 09/17/19 9:00 :00 CDT, 0 Notes: (Same As: Rocaltrol) Start Date: 08/19/19 Stop Date: 08/18/19 Status: Canceled carvedilol 25 mg, 2 tab, Route: PO, Drug form: TAB, Q12H, Dosing Weight 118.636, kg, Priori ty: NOW, Start date: 08/18/19 14:42:00 CDT, Duration: 30 day, Stop date: 0 9:00:00 CDT, 0 Notes: Give with food. (Same As: Coreg) Start Date: 08/18/19 Stop Date: 08/18/19 Status: Discontinued cefTRIAXone + sterile water 10 mL 1 gm, Route: IV, [id number], Dosing Weight 116.636, kg, Start date: 08/18/19 1:31:0 0 CDT, Duration: 7 day, Stop date: 08/24/19 1:31:00 CDT, ABX Indication: Pneumon ia, 0 Notes: (Same As: Rocephin).Use with 100 mL NS and infuse over 30 min MEDICA TION WASTE Product Size: 1000 mgProduct Wasted: ___ mg Start Date: 08/18/19 Stop Date: 08/18/19 Status: Discontinued Dextrose 50% Syringe (D50W) 12.5 gm, 25 mL, Route: IVP, Drug Form: INJ, Dosing Weight 116.636, kg, PRN, PRN Blood Glucose Results, Start date: 08/18/19 1:32:00 CDT, Duration: 30 day, Stop date: 09/17/19 1:31:00 CDT, 0 Start Date: 08/18/19 Stop Date: 08/18/19 Status: Discontinued Dextrose 50% Syringe (D50W) 25 gm, 50 mL, Route: IVP, Drug Form: INJ, Dosing Weight 116.636, kg, PRN, PRN Bl ood Glucose Results, Start date: 08/18/19 1:32:00 CDT, Duration: 30 day, Stop da te: 09/17/19 1:31:00 CDT, 0 Start Date: 08/18/19 Stop Date: 08/18/19 Status: Discontinued Dulcolax Laxative 5 mg, 1 tab, Route: PO, Drug form: ECTAB, Daily, Dosing Weight 118.636, kg, PRN Constipation, Start date: 08/18/19 11:22:00 CDT, Duration: 30 day, Stop date: 11:21:00 CDT, 0 Notes: (Same As: Dulcolax, Correctol) (Do Not Crush) "Do Not Crush" Start Date: 08/18/19 Stop Date: 08/18/19 Status: Discontinued Epogen (ESRD) 6,000 unit, 2 mL, Route: SUB-Q, Drug form: INJ, Q-M-W-F, Dosing Weight 118.636, kg, Priority: NOW, Start date: 08/18/19 14:43:00 CDT, Duration: 30 day, Stop harish e: 09/16/19 17:00:00 CDT, 0 Notes: (Same as: Procrit) epoetin mira 3000 unit/1 ml VL.Non-formularyFor dialys is use onlyWASTE: F/P - Red; E -Red MEDICATION WASTE Product Size: 3000 unitProduct Wasted: ___ unit Start Date: 08/18/19 Stop Date: 08/18/19 Status: Discontinued Epogen (ESRD) 6,000 unit, 2 mL, Route: SUB-Q, Drug form: INJ, ONCE, Dosing Weight 118.636, kg, Start date: 08/18/19 12:44:00 CDT, Stop date: 08/18/19 12:44:00 CDT, 0 Notes: (Same as: Procrit) epoetin mira 3000 unit/1 ml VL.Non-formularyFor dialys is use onlyWASTE: F/P - Red; E -Red MEDICATION WASTE Product Size: 3000 unitProduct Wasted: ___ unit Start Date: 08/18/19 Stop Date: 08/18/19 Status: Completed famotidine 20 mg, 1 tab, Route: PO, Drug form: TAB, Daily, Dosing Weight 118.636, kg, Start date: 08/18/19 7:30:00 CDT, Stop date: 09/16/19 7:30:00 CDT, 0 Notes: (Same as: Pepcid) Start Date: 08/18/19 Stop Date: 08/18/19 Status: Discontinued furosemide 20 mg, 1 tab, Route: PO, Drug form: TAB, BID, Dosing Weight 118.636, kg, Start d ate: 08/18/19 17:00:00 CDT, Duration: 30 day, Stop date: 09/17/19 9:00:00 CDT, 0 Notes: (Same as: Lasix) May cause GI upset. Give with food or milk. Start Date: 08/18/19 Stop Date: 08/18/19 Status: Discontinued glucagon 1 mg, Route: IM, Drug form: PDR/INJ, PRN, Dosing Weight 116.636, kg, PRN Blood G lucose Results, Start date: 08/18/19 1:32:00 CDT, Duration: 30 day, Stop date: 0 09/17/19 1:31:00 CDT, 0 Start Date: 08/18/19 Stop Date: 08/18/19 Status: Discontinued guaiFENesin 200 mg, 10 mL, Route: PO, Drug form: LIQ, Q4H, Dosing Weight 116.636, kg, PRN Co ugh, Start date: 08/18/19 1:31:00 CDT, Duration: 30 day, Stop date: 09/17/19 1:3 0:00 CDT, 0 Notes: (Same as: Robitussin) Start Date: 08/18/19 Stop Date: 08/18/19 Status: Discontinued guaiFENesin 100 mg/5 mL oral liquid 200 mg = 10 mL, PO, Q4H, PRN Cough, X 7 day, # 240 mL, 0 Refill(s), Pharmacy: [id number] Start Date: 08/18/19 Stop Date: 08/25/19 Status: Ordered heparin 5,000 unit, 1 mL, Route: SUB-Q, Drug form: INJ, Q8H, Dosing Weight 116.636, kg, Start date: 08/18/19 8:00:00 CDT, Duration: 30 day, Stop date: 09/17/19 0:00:00 CDT, 0 Notes: porcine heparin Start Date: 08/18/19 Stop Date: 08/18/19 Status: Discontinued hydrALAZINE 50 mg oral tablet 50 mg, 1 tab, Route: PO, Drug form: TAB, TID, Dosing Weight 118.636, kg, Start d ate: 08/18/19 13:00:00 CDT, Duration: 30 day, Stop date: 09/17/19 9:00:00 CDT, 0 Notes: (Same as: Apresoline) May interfere w/enteral feedings Take With Food Start Date: 08/18/19 Stop Date: 08/18/19 Status: Discontinued hydromorphone 0.2 mg, 0.2 mL, Route: IV, Drug form: SOLN, ONCE, Dosing Weight 118.636, kg, Sta rt date: 08/18/19 8:38:00 CDT, Stop date: 08/18/19 8:38:00 CDT, 0 Notes: (Same as: Dilaudid) Start Date: 08/18/19 Stop Date: 08/18/19 Status: Completed insulin lispro 1 unit, 0.01 mL, Route: SUB-Q, Drug form: SOLN, TID-Before Meals, Dosing Weight 116.636, kg, PRN Blood Glucose Results, Start date: 08/18/19 1:32:00 CDT, Durati on: 30 day, Stop date: 09/17/19 1:31:00 CDT, 0 Notes: (Same as: Humalog) Roll in palms of hands gently; Do not shake vigorously . WASTE: F/P - Black; E - Municipal Trash BinStable for 28 days at room tempera ture.Expires in days from Date Start Date: 08/18/19 Stop Date: 08/18/19 Status: Discontinued insulin lispro 2 unit, 0.02 mL, Route: SUB-Q, Drug form: SOLN, TID-Before Meals, Dosing Weight 116.636, kg, PRN Blood Glucose Results, Start date: 08/18/19 1:32:00 CDT, Durati on: 30 day, Stop date: 09/17/19 1:31:00 CDT, 0 Notes: (Same as: Humalog) Roll in palms of hands gently; Do not shake vigorously . WASTE: F/P - Black; E - Municipal Trash BinStable for 28 days at room tempera ture.Expires in days from Date Start Date: 08/18/19 Stop Date: 08/18/19 Status: Discontinued insulin lispro 3 unit, 0.03 mL, Route: SUB-Q, Drug form: SOLN, TID-Before Meals, Dosing Weight 116.636, kg, PRN Blood Glucose Results, Start date: 08/18/19 1:32:00 CDT, Durati on: 30 day, Stop date: 09/17/19 1:31:00 CDT, 0 Notes: (Same as: Humalog) Roll in palms of hands gently; Do not shake vigorously . WASTE: F/P - Black; E - Municipal Trash BinStable for 28 days at room [facility].Expires in days from Date Start Date: 08/18/19 Stop Date: 08/18/19 Status: Discontinued insulin lispro 4 unit, 0.04 mL, Route: SUB-Q, Drug form: SOLN, TID-Before Meals, Dosing Weight 116.636, kg, PRN Blood Glucose Results, Start date: 08/18/19 1:32:00 CDT, Durati on: 30 day, Stop date: 09/17/19 1:31:00 CDT, 0 Notes: (Same as: Humalog) Roll in palms of hands gently; Do not shake vigorously . WASTE: F/P - Black; E - Municipal Trash BinStable for 28 days at room [facility].Expires in days from Date Start Date: 08/18/19 Stop Date: 08/18/19 Status: Discontinued insulin lispro 5 unit, 0.05 mL, Route: SUB-Q, Drug form: SOLN, TID-Before Meals, Dosing Weight 116.636, kg, PRN Blood Glucose Results, Start date: 08/18/19 1:32:00 CDT, Durati on: 30 day, Stop date: 09/17/19 1:31:00 CDT, 0 Notes: (Same as: Humalog) Roll in palms of hands gently; Do not shake vigorously . WASTE: F/P - Black; E - Municipal Trash BinStable for 28 days at room [facility].Expires in days from Date Start Date: 08/18/19 Stop Date: 08/18/19 Status: Discontinued insulin lispro 1 unit, 0.01 mL, Route: SUB-Q, Drug form: SOLN, Bedtime, Dosing Weight 116.636, kg, PRN Blood Glucose Results, Start date: 08/18/19 1:32:00 CDT, Duration: 30 da y, Stop date: 09/17/19 1:31:00 CDT, 0 Notes: (Same as: Humalog) Roll in palms of hands gently; Do not shake vigorously . WASTE: F/P - Black; E - Municipal Trash BinStable for 28 days at room [facility].Expires in days from Date Start Date: 08/18/19 Stop Date: 08/18/19 Status: Discontinued insulin lispro 2 unit, 0.02 mL, Route: SUB-Q, Drug form: SOLN, Bedtime, Dosing Weight 116.636, kg, PRN Blood Glucose Results, Start date: 08/18/19 1:32:00 CDT, Duration: 30 da y, Stop date: 09/17/19 1:31:00 CDT, 0 Notes: (Same as: Humalog) Roll in palms of hands gently; Do not shake vigorously . WASTE: F/P - Black; E - Municipal Trash BinStable for 28 days at room [facility].Expires in days from Date Start Date: 08/18/19 Stop Date: 08/18/19 Status: Discontinued insulin lispro 3 unit, 0.03 mL, Route: SUB-Q, Drug form: SOLN, Bedtime, Dosing Weight 116.636, kg, PRN Blood Glucose Results, Start date: 08/18/19 1:32:00 CDT, Duration: 30 da y, Stop date: 09/17/19 1:31:00 CDT, 0 Notes: (Same as: Humalog) Roll in palms of hands gently; Do not shake vigorously . WASTE: F/P - Black; E - Municipal Trash BinStable for 28 days at room [facility].Expires in days from Date Start Date: 08/18/19 Stop Date: 08/18/19 Status: Discontinued insulin lispro 4 unit, 0.04 mL, Route: SUB-Q, Drug form: SOLN, Bedtime, Dosing Weight 116.636, kg, PRN Blood Glucose Results, Start date: 08/18/19 1:32:00 CDT, Duration: 30 da y, Stop date: 09/17/19 1:31:00 CDT, 0 Notes: (Same as: Humalog) Roll in palms of hands gently; Do not shake vigorously . WASTE: F/P - Black; E - Municipal Trash BinStable for 28 days at room tempera ture.Expires in days from Date Start Date: 08/18/19 Stop Date: 08/18/19 Status: Discontinued Levaquin 750 mg, Route: PO, Drug form: TAB, [id number], Dosing Weight 118.636, kg, For Renal dosing CrCl < 20ml/min. See comment tab., Start date: 08/18/19 18:00:00 CDT, Duration: 7 day, Stop date: 08/24/19 18:00:00 CDT, ABX Indication: Pneumonia Start Date: 08/18/19 Stop Date: 08/18/19 Status: Canceled Levaquin 500 mg oral tablet 500 mg = 1 tab, PO, Q48H, X 10 day, # 5 tab, 0 Refill(s), Pharmacy: [id number] Start Date: 08/19/19 Stop Date: 08/29/19 Status: Ordered pantoprazole 40 mg, 1 tab, Route: PO, Drug form: ECTAB, Before Breakfast, Dosing Weight 118.6 36, kg, Start date: 08/19/19 7:30:00 CDT, Duration: 30 day, Stop date: 09/17/19 7:30:00 CDT Start Date: 08/19/19 Stop Date: 08/18/19 Status: Canceled RN UPDATE PT'S H/W/A [facility] RN UPDATE PT'S H/W/A IN [facility], ATTN:RN - UPDATE H/W/A !!!, Drug form: MISC, Rout e: MISC, Q10Min, 08/18/19 1:50:00 CDT, Duration: 1 day, Stop date: 08/19/19 1:40 :00 CDT, 0 Start Date: 08/18/19 Stop Date: 08/18/19 Status: Deleted Results Most recent to 1 2 oldest [Reference Range]: Procalcitonin Lvl 0.37 ng/mL [0.00-0.10 ng/mL] *HI* (08/18/19 6:29 AM) RBC product Product available 1 (08/18/19 11:25 AM) ABO/Rh A POS *Unknown* (08/18/19 12:10 PM) Antibody Scrn Negative (08/18/19 12:10 PM) Hct [36.0-48.0 %] 23.3 % *LOW* (08/18/19 12:10 PM) Hgb [12.0-16.0 g/dL] 7.6 g/dL *LOW* (08/18/19 12:10 PM) Lactic Acid Lvl 1.1 mMol/L 2.2 mMol/L [0.5-2.2 mMol/L] (08/18/19 8:57 AM) (08/18/19 6:29 AM) 1Result Comment: 08/18/2019 13:10 [id number] Robert RN notified at 08/18/2019 13:10 sm Immunizations Given and Recorded Vaccine Date Status Refusal Reason influenza virus vaccine, inactivated 01/10/ G iven influenza virus vaccine, inactivated /16/16 G iven pneumococcal 23-valent vaccine 01/08/16 Given [...] None. Smoking Status Never smoker; Exposure to T obacco Smoke None; Cigarette Smoking Last 365 Days No; Reg Smoking Cessation Counseli ng No entered on: 08/17/19 1pt denies current alcohol use Assessment and Plan Extracted from: Title: Nephrology Author: Kevin Donald MD Date: Nephrology and Apheresis Consult DOS: 08/18/2019 Referring Physician: Marva Worthington MD Reason for Consultation: Continuation of dialysis Subjective: Ms. Gisela Hernandez was seen on HD @ 11:41 ROS: [...] Over 50% of the time was spent [id number] with the patient and the providers involved in this case. Kevin Donald MD, MS Nephrology and Apheresis Wound care and Hyperbarics [facility] Office: [phone] Extracted from: Title: Shortness of breath Author: Jai Jarvis DO Date : 08/18/19 Critical Care Medicine Chief complaint: Shortness of breath History of present illness: 43 y.o female with a h/o ESRD on HD, HTN , DM, and HLD presented from [facility] after dialysis. She apparently went to the ER with shortness of breath. She was found to have volume overload, with hypertension, and hyperkalemia. Stat HD was done with improvement of her symptoms. The patient is currently doing well and is comfortable of [place]. The ER doctor insisted that the patient be transferred to [facility]. The patient has tested negative for [...] 250 mL: 500 mg, 166.67 ml/hr, IVPB, [id number]. cefTRIAXone + sterile water 10 mL: 1 gm, 120 ml/hr, IV, [id number]. Dextrose 50% in Water IV: 25 mL, [...] epoetin mira: 10,000 unit, 1 mL, SUB-Q, Q---Sa, 0 Refill(s). furosemide: 20 mg, PO, BID, [...] No depression, hallucinations, suicidal ideation Physical Exam VitalsTmp(F)[id number] 08/17 01:0098.1 24 Hr Tmax: 98.1F (36.72c) at 08/17 01:0 0Vital Signs are the last 5 in the past 48 hours. Gen: no acute distress HEENT: protecting airway Neuro: alert and oriented, nonlateralizing, no motor or sensory deficits Cardio: S1S2 reg, no murmurs Pulm: diminished at bases Abd: soft, normal bowel sounds Derm: no rash Ext: no edema, no cyanosis, no limb ischemia All labs and imaging from [facility] reviewed Impression: 1. Hypoxia resolved 2. Hypertension emergency resolved 3. ESRD on HD 4. Hyperkalemia 5. DM 6. Anemia Plan: - HD per nephro - resume home BP meds - f/u CXR - monitor Hb - advance diet > 30 min spent reviewing vitals, labs, meds, and imaging Prognosis: guarded with high risk for clinical decline. Extracted from: Title: History and Physical Author: Beena Seymour MD Date: 08/18/19 43-year-old female with history ofESRD on Monday dialysis, type 2 diabetes, history of right BKA, [facility]. Acute hypoxicrespiratory failure, improving Hypertensive urgency, resolved Flash pulmonary edema, improving - pt with significant improvement after dialysis - able to be weaned off BiPAP upon [facility], will wean off NC as tolerated - may need further diuresis and/or dialy sis - appreciate nephrology and tree climber recommendations Possible RLL PNA - will start ceftriaxone/azithromycin an d get blood cultures Acute macrocytic anemia - s/p 1 prbc in ED - no signs of bleeding, possibly anemia of renal disease Type 2 DM - SSI ESRD Hyperkalemia, resolved - s/p HD as above heparin IMU, anticipate 2-3 midnights
--- OUTSIDE RECORDS SUMMARY | 2019-09-10 20:12 | XMS REPORT | Summary of Care ---
Author Author [facility] Organization [facility] Address Unknown Phone Unavailable Encounter PRIMITIVO Mariano(SANGITA) [id number] Date(s): 09/16/17 - 09/26/17 [facility] [address] [place] [address]- Discharge Disposition: Home or Self Care Attending Physician: Hank Bullock MD Admitting Physician: Hank Bullock MD Vital Signs 1 2 3 Most recent to oldest [Reference Range]: 170.18 cm (09/16/17 11:58 AM) Height 99.273 kg (09/26/17 7:02 AM) 97.727 kg (09/25/17 4:46 AM) 100 kg (09/24/17 5:12 AM) Current Weight 97.8 DegF (09/26/17 3:24 PM) 98.5 DegF (09/26/17 11:50 AM) 98.0 DegF (09/26/17 11:05 AM) Temperature Oral [96.4-99.1 DegF] 97/65 mmHg (09/26/17 3:26 PM) 117/77 mmHg (09/26/17 11:50 AM) 102/67 mmHg (09/26/17 11:05 AM) Blood Pressure [90-140/60-90 mmHg] 19 BRMIN (09/26/17 3:24 PM) 15 BRMIN (09/26/17 11:50 AM) 18 BRMIN (09/26/17 11:29 AM) Respiratory Rate [14-20 BRMIN] 92 bpm (09/26/17 3:24 PM) 96 bpm (09/26/17 11:50 AM) 86 bpm (09/26/17 11:05 AM) Peripheral Pulse Rate [60-100 bpm] 112.1 kg (09/16/17 11:58 AM) Weight 38.71 m2 (09/16/17 11:58 AM) Body Mass Index Problem List Condition [...] Alerts Substance Reaction Severity Status Tylenol Active [place] Active NKDA Active Medications albuterol 0.083% inhalation solution 20 mg, 24.1 mL, Route: NEB, Drug form: SOLN, ONCE, Dosing Weight 102.756, kg, Pr iority: STAT, Start date: 09/16/17 8:39:00 CDT, Stop date: 09/16/17 8:39:00 CDT Notes: SEE RT DOCUMENTATION (Same as: Proventil) Start Date: 09/16/17 Stop Date: 09/16/17 Status: Completed atorvastatin 40 mg, 1 tab, Route: PO, Drug form: TAB, Bedtime, Dosing Weight 112.1, kg, Start date: 09/17/17 21:00:00 CDT, Duration: 30 day, Stop date: 10/16/17 21:00:00 CDT Notes: (Same as: Lipitor) Start Date: 09/17/17 Stop Date: 09/26/17 Status: Discontinued calcium gluconate 1 gm, 50 mL, Route: IVPB, Drug form: INJ, ONCE, Dosing Weight 102.756, kg, Prior ity: STAT, Start date: 09/16/17 8:39:00 CDT, Stop date: 09/16/17 8:39:00 CDT Notes: WASTE: F/P - Sink; E - Municipal Trash Bin Start Date: 09/16/17 Stop Date: 09/16/17 Status: Completed carvedilol 25 mg, 2 tab, Route: PO, Drug form: TAB, BID, Dosing Weight 112.1, kg, Start harish e: 09/17/17 9:00:00 CDT, Duration: 30 day, Stop date: 10/16/17 17:00:00 CDT Notes: Give with food. (Same As: Coreg) Start Date: 09/17/17 Stop Date: 09/26/17 Status: Discontinued Cathflo Activase 2 mg injection 2 mg, 2 mL, Route: INJ, Drug form: INJ, ONCE, Dosing Weight 102.756, kg, Priorit y: STAT, Start date: 09/16/17 11:29:00 CDT, Stop date: 09/16/17 11:29:00 CDT Notes: "Syringe for catheter clearance or interventional radiology use.Reconstit pilot point each vial of Cathflo Activase with 2.2 ml Sterile Water resulting in a 1 mg/ ml solution. (Same as: Activase) MEDICATION WASTE Product Size: 2 mgProd uct Wasted: ___ mg Start Date: 09/16/17 Stop Date: 09/16/17 Status: Completed Cathflo Activase 2 mg injection 2 mg, 2 mL, Route: INJ, Drug form: INJ, ONCE, Dosing Weight 102.756, kg, Priorit y: STAT, Start date: 09/16/17 11:27:00 CDT, Stop date: 09/16/17 11:27:00 CDT Notes: "Syringe for catheter clearance or interventional radiology use.Reconstit pilot point each vial of Cathflo Activase with 2.2 ml Sterile Water resulting in a 1 mg/ ml solution. (Same as: Activase) MEDICATION WASTE Product Size: 2 mgProd uct Wasted: ___ mg Start Date: 09/16/17 Stop Date: 09/16/17 Status: Completed cloNIDine 0.1 mg, 1 tab, Route: PO, Drug form: TAB, ONCE, Dosing Weight 112.1, kg, PRN Eda vated BP, Start date: 09/18/17 21:59:00 CDT Notes: (Same As: Catapres) Start Date: 09/18/17 Stop Date: 09/18/17 Status: Completed cloNIDine 0.1 mg oral tablet 0.1 mg, 1 tab, Route: PO, Drug form: TAB, ONCE, Dosing Weight 112.1, kg, Start d ate: 09/17/17 8:19:00 CDT, Stop date: 09/17/17 8:19:00 CDT Notes: (Same As: Catapres) Start Date: 09/17/17 Stop Date: 09/17/17 Status: Completed Dextrose 50% Syringe 25 gm, 50 mL, Route: IVP, Drug Form: INJ, Dosing Weight 102.756, kg, ONCE, STAT, Start date: 09/16/17 8:39:00 CDT, Stop date: 09/16/17 8:39:00 CDT Start Date: 09/16/17 Stop Date: 09/16/17 Status: Completed Dilaudid 0.5 mg, 0.5 mL, Route: IVP, Drug form: INJ, Q4H, Dosing Weight 112.1, kg, PRN Pa in Score 7-10, Start date: 09/17/17 15:36:00 CDT, Duration: 30 day, Stop date: 0 10/17/17 15:35:00 CDT Notes: Same as: Dilaudid Start Date: 09/17/17 Stop Date: 09/19/17 Status: Discontinued Dilaudid 2 mg, 1 tab, Route: PO, Drug form: TAB, Q4H, Dosing Weight 112.1, kg, PRN Pain S core 7-10, Start date: 09/17/17 10:16:00 CDT, Duration: 30 day, Stop date: 10/17 10:15:00 CDT Notes: (Same as: Dilaudid) Start Date: 09/17/17 Stop Date: 09/17/17 Status: Discontinued epoetin mira 10,000 units/mL preservative-free injectable solution 10,000 unit = 1 mL, SUB-Q, Q, 0 Refill(s) Start Date: 09/26/17 Status: Ordered Epogen (ESRD) 10,000 unit, 1 mL, Route: SUB-Q, Drug form: INJ, Q, Dosing Weight 112.1 , kg, Priority: NOW, Start date: 09/18/17 14:38:00 CDT, Duration: 30 day, Stop d ate: 10/17/17 17:00:00 CDT Notes: (Same as: Procrit) epoetin mira 74542 unit/1 ml VL.For dialysis use only. (Procrit)WASTE: F/P - Red; E -Red MEDICATION WASTE Product Size: 78795 unitProduct Wasted: ___ unit Start Date: 09/18/17 Stop Date: 09/26/17 Status: Discontinued famotidine 20 mg, 1 tab, Route: PO, Drug form: TAB, BID, Dosing Weight 112.1, kg, Start harish e: 09/16/17 21:30:00 CDT, Duration: 30 day, Stop date: 10/16/17 21:00:00 CDT Notes: (Same as: Pepcid) Start Date: 09/16/17 Stop Date: 09/26/17 Status: Discontinued famotidine 20 mg, 2 mL, Route: IVP, Drug form: INJ, Q12H, Dosing Weight 102.756, kg, Start date: 09/16/17 21:00:00 CDT, Duration: 30 day, Stop date: 10/16/17 9:00:00 CDT Notes: (Same as: Pepcid)Can be dilute in 5-10cc NS IVP: Slow IV push over at le ast 2 minutes. Start Date: 09/16/17 Stop Date: 09/16/17 Status: Discontinued famotidine 20 mg oral tablet 20 mg = 1 tab, PO, BID, # 60 tab, 0 Refill(s), Pharmacy: [id number] Start Date: 09/26/17 Stop Date: 10/26/17 Status: Ordered fentaNYL 50 microgram, Route: IVP, ONCE, Dosing Weight 102.756, kg, Priority: STAT, Start date: 09/16/17 6:49:00 CDT, Stop date: 09/16/17 6:49:00 CDT Start Date: 09/16/17 Stop Date: 09/16/17 Status: Completed fentaNYL 50 microgram, Route: IVP, ONCE, Dosing Weight 102.756, kg, Priority: STAT, Start date: 09/16/17 8:10:00 CDT, Stop date: 09/16/17 8:10:00 CDT Start Date: 09/16/17 Stop Date: 09/16/17 Status: Completed Flexeril 10 mg, 1 tab, Route: PO, Drug form: TAB, TID, Dosing Weight 112.1, kg, PRN Spasm , Start date: 09/17/17 18:55:00 CDT, Duration: 30 day, Stop date: 10/17/17 18:54 :00 CDT Notes: (Same As: Flexeril) Start Date: 09/17/17 Stop Date: 09/26/17 Status: Discontinued furosemide 40 mg oral tablet 40 mg, 1 tab, Route: PO, Drug form: TAB, BID, Dosing Weight 112.1, kg, Start harish e: 09/17/17 9:00:00 CDT, Duration: 30 day, Stop date: 10/16/17 17:00:00 CDT Notes: (Same as: Lasix) May cause GI upset. Give with food or milk. Start Date: 09/17/17 Stop Date: 09/26/17 Status: Discontinued hydrALAZINE 50 mg oral tablet 50 mg = 1 tab, PO, TID, Hold if SBP is <100 mmhg., # 90 tab, 3 Refill(s), Pharmacy: [facility] [id number] Start Date: 09/26/17 Status: Ordered hydrALAZINE 50 mg oral tablet 50 mg, 1 tab, Route: PO, Drug form: TAB, TID, Dosing Weight 112.1, kg, Start harish e: 09/17/17 9:00:00 CDT, Duration: 30 day, Stop date: 10/16/17 17:00:00 CDT Notes: (Same as: Apresoline) May interfere w/enteral feedings Take With Food Start Date: 09/17/17 Stop Date: 09/26/17 Status: Discontinued Insulin regular 5 unit, 0.05 mL, Route: IVP, Drug form: INJ, ONCE, Dosing Weight 102.756, kg, Pr iority: STAT, Start date: 09/16/17 8:39:00 CDT, Stop date: 09/16/17 8:39:00 CDT Notes: (Same as: Humulin R and NovoLIN R)WASTE: F/P - Black; E - [employer] Trash Bin (Do not shake) Start Date: 09/16/17 Stop Date: 09/16/17 Status: Completed Kayexalate 30 gm, 120 mL, Route: PO, Drug form: SUSP, ONCE, Dosing Weight 102.756, kg, Prio rity: STAT, Start date: 09/16/17 10:04:00 CDT, Stop date: 09/16/17 10:04:00 CDT Notes: (sodium polystyrene sulfonate 15 gm/60 ml LUCÍA) Shake well before use. (Same as: Kayexalate, SPS) Start Date: 09/16/17 Stop Date: 09/16/17 Status: Completed Lasix 40 mg, Route: IVP, Drug form: INJ, ONCE, Dosing Weight 102.756, kg, Priority: ST AT, Start date: 09/16/17 7:26:00 CDT, Stop date: 09/16/17 7:26:00 CDT Start Date: 09/16/17 Stop Date: 09/16/17 Status: Completed morphine Sulfate 6 mg, 3 mL, Route: PO, Drug form: SOLN, Q4H, Dosing Weight 112.1, kg, PRN Pain S core 6-10, Start date: 09/18/17 3:28:00 CDT, Duration: 30 day, Stop date: 3:27:00 CDT Notes: (Same as:MORPhine Sulfate) Start Date: 09/18/17 Stop Date: 09/18/17 Status: Discontinued morphine Sulfate 4 mg, 2 mL, Route: IVP, Drug form: SOLN, Q4H, Dosing Weight 112.1, kg, PRN Pain Score 7-10, Start date: 09/18/17 14:11:00 CDT, Duration: 30 day, Stop date: 09/23 11/08 14:10:00 CDT, Substitute Allowed No Start Date: 09/18/17 Stop Date: 09/19/17 Status: Discontinued Motrin 600 mg, 1 tab, Route: PO, Drug form: TAB, Q6H, Dosing Weight 112.1, kg, PRN Pain Score 6-10, Start date: 09/16/17 16:31:00 CDT, Duration: 30 day, Stop date: 16:30:00 CDT Notes: (Same as: Motrin)"Do Not Crush" Take with food. Start Date: 09/16/17 Stop Date: 09/19/17 Status: Discontinued NIFEdipine 90 mg oral tablet, extended release 90 mg, 1 tab, Route: PO, Drug form: ERTAB, Daily, Dosing Weight 112.1, kg, Start date: 09/17/17 9:00:00 CDT, Duration: 30 day, Stop date: 10/16/17 9:00:00 CDT Notes: (Same as: Adalat CC,Procardia XL)"Do Not Crush" "Avoid grapefruit and gr apefruit juice" Start Date: 09/17/17 Stop Date: 09/26/17 Status: Discontinued nitroglycerin 100 mg in D5W 250 mL (Titrate.) IV 100 mg 100 mg, 250 mL, Rate: Titrate, Start Dose: 10 microgram/min, Titration: 10 micro gram/min every 5 minutes, Goal(s): Chest pain and SBP between 100 - 150 mmHg, Ma x Dose: 200 mcg/min, Route: IV, Dosing Weight 102.756 kg, Total Volume: 250, Sta rt date: Notes: (Same as:Tridil) Final conc = 0.4 mg/ml. Premix bottle. Start Date: 09/16/17 Stop Date: 09/17/17 Status: Discontinued nitroglycerin SL Tab 0.4 mg, 1 tab, Route: SL, Drug form: TAB, Q5Min, Dosing Weight 102.756, kg, PRN Chest Pain, Start date: 09/16/17 6:15:00 CDT, Duration: 30 day, Stop date: 10/16 6:14:00 CDT Notes: (Same as:Nitroquick, Nitrostat)"Do Not Crush" Sublingual tablet Start Date: 09/16/17 Stop Date: 09/26/17 Status: Discontinued nystatin topical 100,000 units/g powder 1 appl, Route: TOP, PRN, Drug form: PWDR, PRN For Fungal Prophylaxis, Start date : 09/16/17 9:29:00 CDT, Duration: 30 day, Stop date: 10/16/17 9:28:00 CDT Notes: (Same as:Mycostatin, Nilstat) For external use only. Start Date: 09/16/17 Stop Date: 09/26/17 Status: Discontinued oxyCODONE 5 mg oral tablet 5 mg, 1 tab, Route: PO, Drug form: TAB, Q6H, Dosing Weight 112.1, kg, PRN Pain S core 6-10, Start date: 09/19/17 10:33:00 CDT, Duration: 30 day, Stop date: 10/19 10:32:00 CDT Notes: (Same as: Roxicodone) Start Date: 09/19/17 Stop Date: 09/26/17 Status: Discontinued pantoprazole 40 mg oral enteric coated tablet 40 mg = 1 tab, PO, Before Breakfast, # 30 tab, 0 Refill(s), Pharmacy: [facility] [id number] Start Date: 09/26/17 Stop Date: 10/26/17 Status: Ordered Saline Flush 0.9% 10 mL, Route: IVP, Drug Form: INJ, Dosing Weight 102.756, kg, PRN, PRN Line Flus h, Start date: 09/16/17 6:11:00 CDT, Duration: 30 day, Stop date: 10/16/17 6:10: 00 CDT Notes: (Same as: BD Posiflush) Start Date: 09/16/17 Stop Date: 09/23/17 Status: Deleted Saline Flush 0.9% 10 ml, Route: IVP, Drug Form: INJ, Dosing Weight 102.756, kg, PRN, PRN Line Flus h, Start date: 09/16/17 9:29:00 CDT, Duration: 30 day, Stop date: 10/16/17 9:28: 00 CDT Notes: (Same as: BD Posiflush) Start Date: 09/16/17 Stop Date: 09/26/17 Status: Discontinued Saline Flush 0.9% 10 ml, Route: IVP, Drug Form: INJ, Dosing Weight 102.756, kg, Q12H, Start date: 09/16/17 21:00:00 CDT, Duration: 30 day, Stop date: 10/16/17 9:00:00 CDT Notes: (Same as: BD Posiflush) Start Date: 09/16/17 Stop Date: 09/26/17 Status: Discontinued Saline Flush 0.9% 10 mL, Route: IVP, Drug Form: INJ, Dosing Weight 102.756, kg, PRN, PRN Line Flus h, Start date: 09/16/17 8:39:00 CDT, Duration: 30 day, Stop date: 10/16/17 8:38: 00 CDT Notes: (Same as: BD Posiflush) Start Date: 09/16/17 Stop Date: 09/23/17 Status: Voided With Results sodium bicarbonate 50 mEq, 50 mL, Route: IVP, Drug form: INJ, ONCE, Dosing Weight 102.756, kg, Prio rity: STAT, Start date: 09/16/17 8:39:00 CDT, Stop date: 09/16/17 8:39:00 CDT Notes: (sodium bicarb 8.4% (1 mEq/ml) 50 ml syringe) Start Date: 09/16/17 Stop Date: 09/16/17 Status: Completed sodium polystyrene sulfonate 15 gm, 60 mL, Route: PO, Drug form: SUSP, ONCE, Dosing Weight 102.756, kg, Prior ity: STAT, Start date: 09/16/17 8:39:00 CDT, Stop date: 09/16/17 8:39:00 CDT Notes: (sodium polystyrene sulfonate 15 gm/60 ml LUCÍA) Shake well before use. (Same as: Kayexalate, SPS) Start Date: 09/16/17 Stop Date: 09/16/17 Status: Completed tramadol 50 mg, 1 tab, Route: PO, Drug form: TAB, ONCE, Dosing Weight 112.1, kg, PRN Pain Score 6-10, Start date: 09/16/17 21:13:00 CDT Notes: Not to exceed 400mg/day. (Same As: Ultram) Start Date: 09/16/17 Stop Date: 09/16/17 Status: Completed Venofer + Sodium Chloride 0.9% IV 90 mL 200 mg, 10 mL, Route: IVPB, Daily, Dosing Weight 112.1, kg, Start date: 09/20/17 9:00:00 CDT, Duration: 5 doses or times, Stop date: 09/24/17 9:00:00 CDT Notes: Each 5ml contains 100mg elemental iron. Mix with NSNon-Formulary(Same as :Venofer)Administer IV only. MEDICATION WASTE Product Size: [address] Wasted: ___ mg Start Date: 09/20/17 Stop Date: 09/24/17 Status: Completed Results ELECTROLYTES 1 2 3 Most recent to oldest [Reference Range]: 132 mEq/L *LOW* (09/26/17 4:24 AM) 136 mEq/L (09/23/17 4:23 AM) 142 mEq/L (09/18/17 4:02 AM) Sodium Lvl [135-145 mEq/L] 5.2 mEq/L *HI* (09/26/17 4:24 AM) 4.2 mEq/L (09/23/17 4:23 AM) 4.4 mEq/L (09/18/17 4:02 AM) Potassium Lvl [3.5-5.1 mEq/L] 102 mEq/L (09/26/17 4:24 AM) 101 mEq/L (09/23/17 4:23 AM) 106 mEq/L (09/18/17 4:02 AM) Chloride Lvl [95-109 mEq/L] 17 mEq/L *LOW* (09/26/17 4:24 AM) 24 mEq/L (09/23/17 4:23 AM) 24 mEq/L (09/18/17 4:02 AM) CO2 [24-32 mEq/L] 18.2 mEq/L (09/26/17 4:24 AM) 15.2 mEq/L (09/23/17 4:23 AM) 16.4 mEq/L (09/18/17 4:02 AM) AGAP [10.0-20.0 mEq/L] CHEM PANEL 1 2 3 Most recent to oldest [Reference Range]: 10.50 mg/dL *HI* (09/26/17 4:24 AM) 7.65 mg/dL *HI* (09/23/17 4:23 AM) 6.91 mg/dL *HI* (09/18/17 4:02 AM) Creatinine Lvl [0.50-1.40 mg/dL] 5 mL/min/1.73m2 1 *NA* (09/26/17 4:24 AM) 7 mL/min/1.73m2 2 *NA* (09/23/17 4:23 AM) 8 mL/min/1.73m2 3 *NA* (09/18/17 4:02 AM) eGFR 41 mg/dL *HI* (09/26/17 4:24 AM) 28 mg/dL *HI* (09/23/17 4:23 AM) 45 mg/dL *HI* (09/18/17 4:02 AM) BUN [7-22 mg/dL] 9 (09/16/17 6:42 AM) B/C Ratio [6-25] 163 mg/dL *HI* (09/26/17 4:24 AM) 110 mg/dL *HI* (09/23/17 4:23 AM) 162 mg/dL *HI* (09/18/17 4:02 AM) Glucose Lvl [70-99 mg/dL] 8.0 g/dL (09/16/17 6:42 AM) Total Protein [6.4-8.4 g/dL] 2.9 g/dL *LOW* (09/16/17 6:42 AM) Albumin Lvl [3.5-5.0 g/dL] 5.1 g/dL *HI* (09/16/17 6:42 AM) Globulin [2.7-4.2 g/dL] 0.6 *LOW* (09/16/17 6:42 AM) A/G Ratio [0.7-1.6] 7.7 mg/dL *LOW* (09/26/17 4:24 AM) 9.1 mg/dL (09/23/17 4:23 AM) 7.8 mg/dL *LOW* (09/18/17 4:02 AM) Calcium Lvl [8.5-10.5 mg/dL] 13 unit/L (09/16/17 6:42 AM) ALT [0-65 unit/L] 10 unit/L (09/16/17 6:42 AM) AST [0-37 unit/L] 87 unit/L (09/16/17 6:42 AM) Alk Phos [39-136 unit/L] 0.3 mg/dL (09/16/17 6:42 AM) Bili Total [0.2-1.3 mg/dL] 1Result Comment: The [...] 3 Most recent to oldest [Reference Range]: 461 unit/L *HI* (09/16/17 6:42 AM) Total CK [12-191 unit/L] 2.1 ng/mL (09/16/17 6:42 AM) CK MB [0.5-3.6 ng/mL] 0.5 (09/16/17 6:42 AM) CK MB Index [0.0-2.5] 0.03 ng/mL (09/16/17 6:42 AM) Troponin-I [0.00-0.40 ng/mL] 561 pg/mL *HI* (09/16/17 6:42 AM) BNP [<=100 pg/mL] URINE AND STOOL 1 2 3 Most recent to oldest [Reference Range]: Clear (09/17/17 9:36 AM) UA Turbidity [Clear] Ltyellow *NA* (09/17/17 9:36 AM) UA Color 7.0 (09/17/17 9:36 AM) UA pH [5.0-8.0] 1.010 (09/17/17 9:36 AM) UA Spec Grav [<=1.030] 500 mg/dL *ABN* (09/17/17 9:36 AM) UA Glucose [Negative mg/dL] Negative (09/17/17 9:36 AM) UA Blood [Negative] Negative mg/dL *NA* (09/17/17 9:36 AM) UA Ketones [Negative mg/dL] >=300 mg/dL *ABN* (09/17/17 9:36 AM) UA Protein [Negative mg/dL] <=1.0 mg/dL *NA* (09/17/17 9:36 AM) UA Urobilinogen [0.1-1.0 mg/dL] Negative *NA* (09/17/17 9:36 AM) UA Bili [Negative] Negative (09/17/17 9:36 AM) UA Leuk Est [Negative] Negative (09/17/17 9:36 AM) UA Nitrite [Negative] 2 /HPF (09/17/17 9:36 AM) UA WBC [0-5 /HPF] 1 /HPF (09/17/17 9:36 AM) UA RBC [0-2 /HPF] Many /HPF *ABN* (09/17/17 9:36 AM) UA Bacteria [None Seen /HPF] Occasional /LPF *NA* (09/17/17 9:36 AM) UA Sq Epi [Few /LPF] Few /LPF *NA* (09/17/17 9:36 AM) UA Mucus [None Seen /LPF] IMMUNOLOGY 1 2 3 Most recent to oldest [Reference Range]: Negative *NA* (09/16/17 11:20 AM) Hep Bs Ag [Negative] 427.5 mIU/mL *HI* (09/20/17 1:09 PM) Hep Bs Ab [<=7.4 mIU/mL] Negative *NA* (09/20/17 1:09 PM) Hep B Core Ab [Negative] HEMATOLOGY 1 2 3 Most recent to oldest [Reference Range]: 6.9 K/CMM (09/23/17 3:02 PM) 6.5 K/CMM (09/21/17 2:09 PM) 8.3 K/CMM (09/18/17 4:02 AM) WBC [3.7-10.4 K/CMM] 3.70 M/CMM *LOW* (09/23/17 3:02 PM) 3.38 M/CMM *LOW* (09/21/17 2:09 PM) 2.69 M/CMM *LOW* (09/18/17 4:02 AM) RBC [4.20-5.40 M/CMM] 11.5 g/dL *LOW* (09/23/17 3:02 PM) 10.2 g/dL *LOW* (09/21/17 2:09 PM) 8.4 g/dL *LOW* (09/18/17 4:02 AM) Hgb [12.0-16.0 g/dL] 34.7 % *LOW* (09/23/17 3:02 PM) 31.1 % *LOW* (09/21/17 2:09 PM) 24.8 % *LOW* (09/18/17 4:02 AM) Hct [36.0-48.0 %] 93.8 fL (09/23/17 3:02 PM) 92.1 fL (09/21/17 2:09 PM) 92.0 fL (09/18/17 4:02 AM) MCV [80.0-98.0 fL] 31.0 pg (09/23/17 3:02 PM) 30.4 pg (09/21/17 2:09 PM) 31.0 pg (09/18/17 4:02 AM) MCH [27.0-31.0 pg] 33.1 g/dL (09/23/17 3:02 PM) 33.0 g/dL (09/21/17 2:09 PM) 33.7 g/dL (09/18/17 4:02 AM) MCHC [32.0-36.0 g/dL] 15.4 % *HI* (09/23/17 3:02 PM) 14.8 % *HI* (09/21/17 2:09 PM) 14.8 % *HI* (09/18/17 4:02 AM) RDW [11.5-14.5 %] 8.4 fL (09/23/17 3:02 PM) 8.3 fL (09/21/17 2:09 PM) 8.7 fL (09/18/17 4:02 AM) MPV [7.4-10.4 fL] 304 K/CMM (09/23/17 3:02 PM) 334 K/CMM (09/21/17 2:09 PM) 240 K/CMM (09/18/17 4:02 AM) Platelet [133-450 K/CMM] 60.0 % (09/23/17 3:02 PM) 59.9 % (09/21/17 2:09 PM) 77.3 % *HI* (09/16/17 6:42 AM) Segs [45.0-75.0 %] 27.7 % (09/23/17 3:02 PM) 30.0 % (09/21/17 2:09 PM) 15.9 % *LOW* (09/16/17 6:42 AM) Lymphocytes [20.0-40.0 %] 10.0 % (09/23/17 3:02 PM) 7.0 % (09/21/17 2:09 PM) 5.6 % (09/16/17 6:42 AM) Monocytes [2.0-12.0 %] 1.7 % (09/23/17 3:02 PM) 2.2 % (09/21/17 2:09 PM) 0.7 % (09/16/17 6:42 AM) Eosinophils [0.0-4.0 %] 0.6 % (09/23/17 3:02 PM) 0.9 % (09/21/17 2:09 PM) 0.5 % (09/16/17 6:42 AM) Basophils [0.0-1.0 %] 4.1 K/CMM (09/23/17 3:02 PM) 3.9 K/CMM (09/21/17 2:09 PM) 13.0 K/CMM *HI* (09/16/17 6:42 AM) Segs-Bands # [1.5-8.1 K/CMM] 1.9 K/CMM (09/23/17 3:02 PM) 2.0 K/CMM (09/21/17 2:09 PM) 2.7 K/CMM (09/16/17 6:42 AM) Lymphocytes # [1.0-5.5 K/CMM] 0.7 K/CMM (09/23/17 3:02 PM) 0.5 K/CMM (09/21/17 2:09 PM) 0.9 K/CMM *HI* (09/16/17 6:42 AM) Monocytes # [0.0-0.8 K/CMM] 0.1 K/CMM (09/23/17 3:02 PM) 0.1 K/CMM (09/21/17 2:09 PM) 0.1 K/CMM (09/16/17 6:42 AM) Eosinophils # [0.0-0.5 K/CMM] 0.1 K/CMM (09/21/17 2:09 PM) 0.1 K/CMM (09/16/17 6:42 AM) Basophils # [0.0-0.2 K/CMM] Immunizations Given and Recorded Vaccine Date Status [...] Plan Extracted from: Title: Clinical Document Author: Yelena Scherer MD Date: 09/26/17 Nephrology progress Note SUBJECTIVE: Patient seen and evaluated at bedside. No overnight events. Denies chest pain, nausea, vomiting, diarrhea, headache, lightheadness, abdomen pain or dizziness. OBJECTIVE: VitalsTmp(F)[id number] 09/26 11:[id number]--- 09/26 11:29 1897 21% 09/26 11:0598.556219/6718------ 09/26 07:2898.767585/6518------ 09/26 06:54----32109/7018------ 24 Hr Tmax: 98.9F (37.17c) at 09/25 20:4 9Vital Signs are the last 5 in the past 48 hours. I&ORecordInOutBal 09/523hr Tot 0 [id number] Tot 260 0 260 Labs (Last four charted values) WBC 6.9(SEP 23)6.5(SEPTEMBER 21)8.3(SEPTEMBER 18)H 16.9(SEPTEMBER 16) Hgb L 11.5(SEP 23)L 10.2(SEPTEMBER 21)L 8.4(SEPTEMBER 18)L 9.2(SEPTEMBER 16) Hct L 34.7(SEP 23)L 31.1(SEPTEMBER 21)L 24.8(SEPTEMBER 18)L 28.5(SEPTEMBER 16) Plt 304(SEP 23)334(SEPTEMBER 21)240(SEPTEMBER 18)287(SEPTEMBER 16) Na L 132(SEP 26)136(SEP 23)142(SEPTEMBER 18)142(SEPTEMBER 16) K H 5.2(SEP 26)4.2(SEP 23)4.4(SEPTEMBER 18)H 5.6(SEPTEMBER 16) CO2 L 17(SEP 26)24(SEP 23)24(SEPTEMBER 18)L 18(SEPTEMBER 16) Cl 102(SEP 26)101(SEP 23)106(SEPTEMBER 18)H 110(SEPTEMBER 16) Cr H 10.50(SEP 26)H 7.65(SEP 23)H 6.91(SEPTEMBER 18)H 9.56(SEPTEMBER 16) BUN H 41(SEP 26)H 28(SEP 23)H 45(SEPTEMBER 18)H 87(SEPTEMBER 16) Glucose Random H 163(SEP 26)H 110(SEP 23)H 162(SEPTEMBER 18)H 132(SEPTEMBER 16) Ca L 7.7(SEP 26)9.1(SEP 23)L 7.8(SEPTEMBER 18)L 7.9(SEPTEMBER 16) Troponin 0.03(SEPTEMBER 16) CK MB 2.1(SEPTEMBER 16) Total CK H 461(SEPTEMBER 16) Medications (13) Active Scheduled: (8) atorvastatin [...] 0.4 mg 1 tab, SL, Q5Min nystatin 209917 unit/gm 15 gm PWD 1 appl, TOP, [...] clear and coherent. Psychiatric: Cooperative, Appropriate mood & affect. Chest x-ray: IMPRESSION: Moderate pulmonary vascular [...] for outpatient. Spoke with case management. Extracted from: Title: Clinical Document Author: Priscila Hathaway Date: 09/16/17 [facility] CONS[facility] Reason for consult: Acute hypoxemic failure History of presenting illness: Patient is a 41-year-old female who has no history of ESRD she is noncompliant with her dialysis she supposed to go 3 times a week follows up with the direct care supervisor at [facility], however she states she has not had [...] Over the needle catheter ALLERGIES Allergies (1) ActiveReaction NKDANone Documented Review of Systems CONSTITUTIONAL: no fever. [...] or depression GENERAL EXAMINATION Vitals and Temp: VitalsTmp(F)[id number] 09/16 08:[id number]/9012------ 09/16 08:42----[id number]------ 09/16 07:23----[id number]------ 09/16 07:01----[id number]--- 09/16 06:27----[id number] 60% 24 Hr Tmax: 98F (36.67c) at 09/16 08:52V ital Signs are the last 5 in the [...] 10 ml, IVP, Q12H sodium polystyrene sulfonate LUCÍA 15gm/60ml 15 gm 60 mL, PO, ONCE [...] Labs (Last four charted values) WBC H 16.9(SEPTEMBER 16) Hgb L 9.2(SEPTEMBER 16) Hct L 28.5(SEPTEMBER 16) Plt 287(SEPTEMBER 16) Na 142(SEPTEMBER 16) K H 5.6(SEPTEMBER 16) CO2 L 18(SEPTEMBER 16) Cl H 110(SEPTEMBER 16) Cr H 9.56(SEPTEMBER 16) BUN H 87(SEPTEMBER 16) Glucose Random H 132(SEPTEMBER 16) Ca L 7.9(SEPTEMBER 16) Troponin 0.03(SEPTEMBER 16) CK MB 2.1(SEPTEMBER 16) Total CK H 461(SEPTEMBER 16) Radiology IMPRESSION: Acute hypoxemic failure Need [...]
--- OUTSIDE RECORDS SUMMARY | 2019-09-10 20:12 | XMS REPORT | Summary of Care ---
Author Author [facility] Organization [facility] Address Unknown Phone Unavailable Encounter PRIMITIVO Yusuf) [id number] Date(s): 11/05/17 - 11/12/17 [facility] [address] [employer] provided by [facility] [place] [address]- Discharge Disposition: Home or Self Care Attending [...] Alerts Substance Reaction Severity Status Tylenol Active Monroe Active NKDA Active Medications amLODIPine 10 mg [...] 1 gm, Route: IVPB, Drug form: INJ, [id number], Dosing Weight 103.9, kg, (CrCl 10 - [...] palms of hands gently; Do not shake `jlorou sly. "Single Patient Use Only " WASTE: F/P - Black; E - [employer] able for 28 days [...] 1 tab, Route: PO, Drug form: TAB, [id number], Dosing Weight 103.9, kg, For Renal dosing [...] tablet 500 mg = 1 tab, PO, [id number], # 6 tab, 0 Refill(s) Start Date: 11/12/17 Stop Date: 10/23/18 Status: Ordered linezolid 600 mg, 300 mL, Route: IVPB, Drug form: SOLN, [id number], Dosing Weight 103.9, kg, Start date: 11/06/17 [...] 500 mg, Route: IVPB, Drug form: PDR/INJ, [id number], Dosing Weight 103.9, kg, CrCL= < 10 [...] date: 11/07/17 18:00:00 CDT Notes: (Same as: Reglan) Start Date: 11/06/17 Stop Date: 11/07/17 Status: Completed metoclopramide 10 mg, 2 mL, Route: IVP, Drug form: INJ, Q8H, Dosing Weight 103.9, kg, PRN Nause a & Vomiting, Start date: 11/06/17 1:41:00 CDT, Stop date: 11/08/17 1:40:00 CDT Notes: (Same as: Reglan) Start Date: 11/06/17 Stop Date: 11/06/17 Status: Discontinued metoclopramide 5 mg, 1 mL, Route: IVP, Drug form: INJ, Q6H, Dosing Weight 103.9, kg, PRN Nausea & Vomiting, Start date: 11/06/17 4:23:00 CDT, Stop date: 11/07/17 22:03:00 CDT Notes: (Same as: Reglan) Start Date: 11/06/17 Stop Date: 11/06/17 Status: [...] Date: 11/09/17 Stop Date: 11/09/17 Status: Discontinued Monroe 5/325 oral tablet 1 tab, Route: PO, Drug Form: TAB, Dosing Weight 103.9, kg, ONCE, PRN Pain Score 1-5, Start date: 11/09/17 13:10:00 CDT Notes: (Same as: Monroe 325/5) Do not exceed 4gm/day of acetaminophen. Start Date: 11/09/17 Stop Date: 11/09/17 Status: Completed Monroe 5/325 oral tablet 1 tab, Route: PO, Drug Form: TAB, Dosing Weight 103.9, kg, ONCE, Start date: 4:08:00 CDT, Stop date: 11/06/17 4:08:00 CDT Notes: (Same as: Monroe 325/5) Do not exceed 4gm/day of acetaminophen. Start Date: 11/06/17 Stop Date: 11/06/17 Status: Discontinued Monroe 5/325 oral tablet 1 tab, Route: PO, Drug Form: TAB, Dosing Weight 103.9, kg, ONCE, PRN Pain Score 4-6, Start date: 11/06/17 4:41:00 CDT Notes: (Same as: Monroe 325/5) Do not exceed 4gm/day of acetaminophen. [...] date: 12/06/17 9:00:00 CDT Notes: (Same as: Senokot) Start Date: 11/06/17 Stop Date: 11/06/17 Status: Discontinued senna 8.6 mg oral tablet 17.2 mg, 2 tab, Route: PO, Drug Form: TAB, Dosing Weight 103.9, kg, BID, Start d ate: 11/06/17 9:00:00 CDT, Duration: 30 day, Stop date: 12/05/17 17:00:00 CDT Notes: (Same as: Senokot) Start Date: 11/06/17 Stop Date: 11/12/17 Status: Discontinued senna 8.6 mg oral tablet 8.6 mg = 1 tab, PO, BID, as needed with plenty of water for constipation, # 30 t ab, 0 Refill(s) Start Date: 11/12/17 Stop Date: 11/21/17 Status: Ordered sodium phosphate 45 mmol, Route: IVPB, PRN, [...] Vancocin)Infusion rate< 1000 mg: infuse over 1 [id number] - 1500 mg: infuse over 1.5 hoursVancomycin [...] 80 mg/dL (11/09/17 4:33 AM) 88 mg/dL (11/07/17 5:21 AM) Glucose Lvl [70-99 mg/dL] 6.5 [...] (11/05/17 5:00 PM) Procalcitonin Lvl [0.00-0.10 ng/mL] 1Result Comment: The eGFR is calculated [...] 4Result Comment: Critical Result(s) called to Tisha Adam at 11/07/2017 08:08 by lwb . Read back OK. 5Result Comment: Critical Result(s) called to olga mahamed at _11/07/2017 07:20 by_.radha Read back OK. 6Result Comment: CRITICAL RESULT CALLED TO MADONNAMarcio SEGURA AT 11/05/2017 18:41 BY SXP. READ BACK OK. CARDIAC ENZYMES 1 2 3 Most [...] 1Result Comment: Critical Result(s) called to Jocelyn Crandalltal at 11/09/2017 17:58 by NT. Read back OK. 2Result Comment: Critical Result(s) called to Disha Aristides at 11/07/2017 06:16 by AC. Read back OK. 3Result Comment: Critical Result(s) called to Jocelyn Crandalltal at 11/09/2017 17:58 by NT. Read back OK. 4Result Comment: Critical Result(s) called to Disha Aristides at 11/07/2017 06:16 by AC. Read back [...] PM) MCHC [32.0-36.0 g/dL] 15.0 % *HI* (11/10/17 5:17 AM) 15.5 % *HI* (11/07/17 5:21 AM) 15.7 % *HI* (11/05/17 8:40 PM) RDW [11.5-14.5 %] 8.8 fL (11/10/17 5:17 AM) 9.5 fL (11/07/17 5:21 AM) 8.5 fL (11/05/17 8:40 PM) MPV [7.4-10.4 fL] 185 K/CMM (11/10/17 5:17 AM) 136 K/CMM (11/07/17 5:21 AM) 194 K/CMM (11/05/17 8:40 PM) Platelet [133-450 K/CMM] 53.5 % (11/10/17 5:17 AM) 75.6 % *HI* (11/07/17 5:21 AM) 91.0 % *HI* (11/05/17 8:40 PM) Segs [45.0-75.0 %] 32.4 % (11/10/17 5:17 AM) 15.4 % *LOW* (11/07/17 5:21 AM) [...] 5:21 AM) 7.7 K/CMM (11/05/17 8:40 PM) Segs-Bands # [1.5-8.1 K/CMM] 1.7 K/CMM (11/10/17 5:17 [...] edema Neuro: AxOx3, no focal deficits Labs 07/21 0901 POC Performing LocatioSee Note Glucose POC98 11/10 2045 POC Performing LocatioSee Note Glucose POC88 11/10 1138 POC Performing LocatioSee Note Glucose PZA907 H 11/10 0732 POC Performing LocatioSee Note Glucose CRR008 H 11/10 0517 Glucose Frg015 H BUN28 H Creatinine Lvl7.16 H Sodium Uaa269 Potassium Lvl3.9 Chloride Ide947 CO227 AGAP11.9 Calcium Lvl7.1 L eGFR7 Magnesium Lvl2.2 Phosphorus4.7 H WBC5.4 RBC2.66 L Hgb8.0 L Hct24.8 L MCV93.1 MCH30.0 MCHC32.2 RDW15.0 H Njbfrwst873 MPV8.8 Segs53.5 Skprpbgqx26.9 Lfjnforwgio09.4 Eosinophils2.5 Basophils0.7 Segs-Bands #2.9 Lymphocytes #1.7 Monocytes [...] 11/10 1138 POC Performing LocatioSee Note Glucose WLD035 H 11/10 0732 POC Performing LocatioSee Note Glucose ZCE324 H 11/10 0517 Glucose Afq899 H BUN28 H Creatinine Lvl7.16 H Sodium Bda904 Potassium Lvl3.9 Chloride Jpi286 CO227 AGAP11.9 Calcium Lvl7.1 L eGFR7 Magnesium Lvl2.2 Phosphorus4.7 H WBC5.4 RBC2.66 L Hgb8.0 L Hct24.8 L MCV93.1 MCH30.0 MCHC32.2 RDW15.0 H Jqxyjdwx843 MPV8.8 Segs53.5 Fxnzdqpoo75.9 Ulrqtipecbc24.4 Eosinophils2.5 Basophils0.7 Segs-Bands #2.9 Lymphocytes #1.7 Monocytes #0.6 Eosinophils #0.1 11/10 2135 Troponin-I0.07 Troponin-T0.192 C 11/09 2028 POC Performing LocatioSee Note Glucose YCJ366 H 11/09 1701 POC Performing LocatioSee Note Glucose POC85 11/09 1657 Ca Ion WB0.86 C Ca Norm WB0.89 C Troponin-T0.155 C Troponin-I0.05 11/08 1412 Hep Bs Ab276.2 H Hep C AbNegative Physical Examination: Gen: AAO x3, NAD VitalsTmp(F)[id number] 11/10 15:4598.666150/029395--- 11/10 11:[id number]/602243--- 11/10 07:2998.295429/507768--- 11/10 06:3798.362842/040512--- 11/10 00:2698.291250/378110--- 24 Hr Tmax: 98.7F (37.06c) at 11/09 [...] IF YOU HAVE ANY QUESTIONS, PLEASE CONTACT [phone]. Extracted from: Title: History and Physical Author: [...] & Zyvox. Renal on board. Please see pr intern's note for full H&P. 1.Klebsiella sepsis - 11/05 BCx = +GNR bacteremia, K pneumoni ae per Verigene - LA 1.4; WBC 8.5 - Cont Merrem and Zyvox 2.ESRD on dialysis - Renal on board - no emergent HD req'd - on TTS HD 3.Diabetes 4.Diastolic heart failure 5.Poor social situation
--- OUTSIDE RECORDS SUMMARY | 2019-09-10 20:12 | XMS REPORT | Summary of Care ---
Author Author [facility] Organization [facility] Address Unknown Phone Unavailable Encounter PRIMITIVO Mariano(SANGITA) [id number] Date(s): 06/25/18 - 07/02/18 [facility] [address] [place] [address]- Discharge Disposition: Home or Self Care Attending Physician: Mathew Tolbert MD Admitting Physician: Mathew Tolbert MD Vital Signs 1 2 3 Most recent to oldest [Reference Range]: 170.18 cm (06/25/18 10:00 PM) 170.18 cm (06/25/18 8:20 PM) Height 112.727 kg (07/02/18 6:18 AM) 110.966 kg (06/30/18 4:00 AM) 112.1 kg (06/26/18 6:52 AM) Current Weight 98.7 DegF (07/02/18 11:28 AM) 98.3 DegF (07/02/18 10:40 AM) 98.8 DegF (07/02/18 7:40 AM) Temperature Oral [96.4-99.1 DegF] 131/96 mmHg (07/02/18 11:28 AM) 123/85 mmHg (07/02/18 10:40 AM) 109/67 mmHg (07/02/18 4:44 AM) Blood Pressure [90-140/60-90 mmHg] 16 BRMIN (07/02/18 11:28 AM) 16 BRMIN (07/02/18 10:40 AM) 18 BRMIN (07/02/18 7:08 AM) Respiratory Rate [14-20 BRMIN] 88 bpm (07/02/18 11:28 AM) 80 bpm (07/02/18 4:44 AM) 84 bpm (07/01/18 11:43 PM) Peripheral Pulse Rate [60-100 bpm] 119.1 kg (06/25/18 10:00 PM) 108.636 kg (06/25/18 8:20 PM) Weight 41.12 m2 (06/25/18 10:00 PM) 37.51 m2 (06/25/18 8:20 PM) Body Mass Index Problem List Condition [...] Alerts Substance Reaction Severity Status Zofran Active Tylenol Active [place] Active traMADol Active Medications alteplase 2 mg injection 2 mg, 2 mL, Route: DIALYSIS, Drug form: INJ, ONCE, Dosing Weight 119.1, kg, Prio rity: STAT, Start date: 06/26/18 4:16:00 HAND II TUBE BENDER, Stop date: 06/26/18 4:16:00 HAND II TUBE BENDER Notes: "Syringe for catheter clearance or interventional radiology use.Reconstit [place] each vial of Cathflo Activase with 2.2 ml Sterile Water resulting in a 1 mg/ ml solution. (Same as: Activase) MEDICATION WASTE Product Size: 2 mgProd uct Wasted: ___ mg Start Date: 06/26/18 Stop Date: 06/26/18 Status: Completed alteplase 2 mg injection 2 mg, 2 mL, Route: DIALYSIS, Drug form: INJ, ONCE, Dosing Weight 119.1, kg, Prio rity: STAT, Start date: 06/26/18 4:16:00 HAND II TUBE BENDER, Stop date: 06/26/18 4:16:00 HAND II TUBE BENDER Notes: "Syringe for catheter clearance or interventional radiology use.[place]constit [place] each vial of Cathflo Activase with 2.2 ml Sterile Water resulting in a 1 mg/ ml solution. (Same as: Activase) MEDICATION WASTE Product Size: 2 mgProd uct Wasted: ___ mg Start Date: 06/26/18 Stop Date: 06/26/18 Status: Completed aspirin 324 mg, 4 tab, Route: PO, Drug form: [place], ONCE, Dosing Weight 113.636, kg, P riority: STAT, Start date: 06/25/18 20:06:00 HAND II TUBE BENDER, Stop date: 06/25/18 20:06:[address] Notes: Take with food. Start Date: 06/25/18 Stop Date: 06/25/18 Status: Completed calcitriol 0.25 microgram, 1 cap, Route: PO, Drug form: CAP, Daily, Dosing Weight 119.1, kg , Start date: 06/27/18 9:00:00 HAND II TUBE BENDER, Duration: 30 day, Stop date: 07/26/18 9:00:0 0 CDT Notes: (Same As: Rocaltrol) Start Date: 06/27/18 Stop Date: 07/02/18 Status: Discontinued carvedilol 25 mg, 2 tab, Route: PO, Drug form: TAB, Q12H, Dosing Weight 119.1, kg, Start da te: 06/26/18 21:00:00 HAND II TUBE BENDER, Duration: 30 day, Stop date: 07/26/18 9:00:00 CDT Notes: Give with food. (Same As: Coreg) Start Date: 06/26/18 Stop Date: 07/02/18 Status: Discontinued cefepime + Sodium Chloride 0.9% IV 100 mL 1 gm, Route: IVPB, [id number], Dosing Weight 119.1, kg, (CrCl 10 - 29 ml/min), Star t date: 06/27/18 8:00:00 HAND II TUBE BENDER, Duration: 4 day, Stop date: 06/30/18 8:00:00 HAND II TUBE BENDER, ABX Indication: Urinary Tract Infection Notes: (Same As: Maxipime) MEDICATION WASTE Product Size: 1000 mgProduc t Wasted: ___ mg Start Date: 06/27/18 Stop Date: 06/30/18 Status: Completed Dulcolax Laxative 5 mg, 1 tab, Route: PO, Drug form: ECTAB, Daily, Dosing Weight 119.1, kg, PRN Co nstipation, Start date: 06/26/18 14:00:00 HAND II TUBE BENDER, Duration: 30 day, Stop date: 08/10 13:59:00 CDT Notes: (Same As: Dulcolax, Correctol) (Do Not Crush) "Do Not Crush" Start Date: 06/26/18 Stop Date: 07/02/18 Status: Discontinued Dulcolax Laxative 5 mg oral enteric coated tablet 5 mg = 1 tab, PO, Daily, PRN Constipation Start Date: 06/26/18 Status: Ordered epoetin mira 10,000 unit, 1 mL, Route: SUB-Q, Drug form: INJ, Q-M-W-F, Dosing Weight 119.1, k g, Start date: 06/26/18 17:00:00 HAND II TUBE BENDER, Duration: 30 day, Stop date: 07/25/18 9:00 :00 CDT Notes: (Same as: Procrit) epoetin mira 60322 unit/1 ml VL. Start Date: 06/26/18 Stop Date: 07/02/18 Status: Discontinued fluconazole 150 mg, 3 tab, Route: PO, Drug form: TAB, ONCE, Dosing Weight 119.1, kg, Start d ate: 07/01/18 16:06:00 CDT, Stop date: 07/01/18 16:06:00 CDT, ABX Indication: Ur inary Tract Infection Notes: (Same as: Diflucan) Start Date: 07/01/18 Stop Date: 07/01/18 Status: Completed furosemide 40 mg, Route: IVP, ONCE, Dosing Weight 113.636, kg, Priority: STAT, Start date: 06/25/18 20:06:00 HAND II TUBE BENDER, Stop date: 06/25/18 20:06:00 HAND II TUBE BENDER Start Date: 06/25/18 Stop Date: 06/25/18 Status: Discontinued gabapentin 300 mg oral capsule 300 mg, 1 cap, Route: PO, Drug form: CAP, Daily, Dosing Weight 119.1, kg, Start date: 06/27/18 9:00:00 HAND II TUBE BENDER, Duration: 30 day, Stop date: 07/26/18 9:00:00 CDT Notes: (Same as: Neurontin) Start Date: 06/27/18 Stop Date: 06/29/18 Status: Discontinued heparin 5,000 unit, 1 mL, Route: SUB-Q, Drug form: INJ, Q12H, Dosing Weight 119.1, kg, S tart date: 06/27/18 9:00:00 HAND II TUBE BENDER, Duration: 30 day, Stop date: 07/26/18 21:00:00 CDT Notes: porcine heparin Start Date: 06/27/18 Stop Date: 07/02/18 Status: Discontinued hydrALAZINE 50 mg oral tablet 50 mg, 1 tab, Route: PO, Drug form: TAB, Q8H, Dosing Weight 119.1, kg, Start aldo e: 06/26/18 16:00:00 HAND II TUBE BENDER, Duration: 30 day, Stop date: 07/26/18 8:00:00 CDT Notes: (Same as: Apresoline) May interfere w/enteral feedings Take With Food Start Date: 06/26/18 Stop Date: 07/02/18 Status: Discontinued Lasix 80 mg, 8 mL, Route: IVP, Drug form: INJ, ONCE, Dosing Weight 113.636, kg, Priori ty: STAT, Start date: 06/25/18 20:25:00 HAND II TUBE BENDER, Stop date: 06/25/18 20:25:00 HAND II TUBE BENDER Notes: (Same as: Lasix) MEDICATION WASTE Product Size: 40 mgProduct Was [place]: ___ mg Start Date: 06/25/18 Stop Date: 06/25/18 Status: Completed Maxipime + sterile water 10 mL 1 gm, Route: IV, ONCE, Start date: 06/26/18 8:00:00 HAND II TUBE BENDER, Stop date: 06/26/18 8:0 0:00 HAND II TUBE BENDER, ABX Indication: Urinary Tract Infection Notes: (Same As: Maxipime) MEDICATION WASTE Product Size: 1000 mgProduc t Wasted: ___ mg Start Date: 06/26/18 Stop Date: 06/26/18 Status: Completed morphine preservative-free 2 mg, 0.5 mL, Route: IVP, Drug form: SOLN, Q2H, Dosing Weight 108.636, kg, PRN P ain Score 6-10, Start date: 06/25/18 22:13:00 HAND II TUBE BENDER, Duration: 30 day, Stop date: 07/25/18 22:12:00 CDT Notes: (Same as:MORPhine Sulfate) Start Date: 06/25/18 Stop Date: 06/26/18 Status: Discontinued morphine Sulfate 2 mg, 1 mL, Route: IVP, Drug form: SOLN, Q4H, Dosing Weight 119.1, kg, PRN Pain Score 7-10, Start date: 06/27/18 0:17:00 HAND II TUBE BENDER, Duration: 30 day, Stop date: 07/27 0:16:00 CDT Start Date: 06/27/18 Stop Date: 07/02/18 Status: Discontinued nitroglycerin 100 mg in D5W 250 mL (Titrate.) IV 100 mg 100 mg, 250 mL, Rate: Titrate MAP 120, Start Dose: 10 microgram/min, Titration: 10 microgram/min every 5 minutes, Goal(s): MAP 120, Max Dose: 200 mcg/min, Route : IV, Dosing Weight 113.636 kg, Total Volume: 250, Priority: STAT, Start date: 0 06/25/18 20:... Notes: (Same as:Tridil) Final conc = 0.4 mg/ml. Premix bottle. Start Date: 06/25/18 Stop Date: 06/28/18 Status: Discontinued nystatin 100,000 unit, Route: TOP, Drug form: OINT, BID, Dosing Weight 119.1, kg, PRN Irr itation, Start date: 06/26/18 7:04:00 HAND II TUBE BENDER, Duration: 30 day, Stop date: 07/26/18 7:03:00 CDT Start Date: 06/26/18 Stop Date: 06/26/18 Status: Deleted nystatin topical 100,000 units/g ointment 1 appl, Route: TOP, BID, Drug form: OINT, PRN Irritation, Start date: 06/26/18 7 :28:00 HAND II TUBE BENDER, Duration: 30 day, Stop date: 07/26/18 7:27:00 CDT Notes: (Same as:Mycostatin, Nilstat) for external use only. Start Date: 06/26/18 Stop Date: 07/02/18 Status: Discontinued nystatin topical 100,000 units/g powder 1 appl, Route: TOP, PRN, Drug form: PWDR, PRN For Fungal Prophylaxis, Start date : 06/25/18 21:20:00 HAND II TUBE BENDER, Duration: 30 day, Stop date: 07/25/18 22:19:00 CDT Notes: (Same as:Mycostatin, Nilstat) For external use only. Start Date: 06/25/18 Stop Date: 07/02/18 Status: Discontinued Phenergan 25 mg, 1 mL, Route: IM, Drug form: INJ, Q6H, Dosing Weight 119.1, kg, PRN Nausea & Vomiting, Start date: 06/28/18 16:50:00 HAND II TUBE BENDER, Duration: 30 day, Stop date: 07/28/18 16:49:00 CDT Notes: Do not give IV push. (Same as: Phenergan) Start Date: 06/28/18 Stop Date: 07/02/18 Status: Discontinued pneumococcal 13-valent vaccine 0.5 mL, Route: IM, Drug Form: INJ, ONCALL, Start date: 06/25/18 22:56:45 HAND II TUBE BENDER, St op date: 07/25/18 22:51:45 CDT Notes: Shake well prior to use (Same as: Prevnar 13) Start Date: 06/25/18 Stop Date: 07/02/18 Status: Canceled Saline Flush 0.9% 10 mL, Route: IVP, Drug Form: INJ, Dosing Weight 113.636, kg, PRN, PRN Line Flus h, Start date: 06/25/18 20:06:00 HAND II TUBE BENDER, Duration: 30 day, Stop date: 07/25/18 21:0 5:00 CDT Notes: (Same as: BD Posiflush) Start Date: 06/25/18 Stop Date: 07/02/18 Status: Discontinued Saline Flush 0.9% 10 ml, Route: IVP, Drug Form: INJ, Dosing Weight 108.636, kg, Q12H, Start date: 06/26/18 9:00:00 HAND II TUBE BENDER, Duration: 30 day, Stop date: 07/25/18 21:00:00 CDT Notes: (Same as: BD Posiflush) Start Date: 06/26/18 Stop Date: 07/02/18 Status: Discontinued Saline Flush 0.9% 10 ml, Route: IVP, Drug Form: INJ, Dosing Weight 108.636, kg, PRN, PRN Line Flus h, Start date: 06/25/18 21:20:00 HAND II TUBE BENDER, Duration: 30 day, Stop date: 07/25/18 22:1 9:00 CDT Notes: (Same as: BD Posiflush) Start Date: 06/25/18 Stop Date: 07/02/18 Status: Discontinued thiamine 100 mg, 1 mL, Route: IVP, Drug form: INJ, Daily, Dosing Weight 119.1, kg, Start date: 06/29/18 17:30:00 HAND II TUBE BENDER, Duration: 30 day, Stop date: 07/29/18 9:00:00 CDT Notes: (Same As: Vitamin B1) Start Date: 06/29/18 Stop Date: 07/02/18 Status: Discontinued Zofran 4 mg, 2 mL, Route: IVP, Drug form: INJ, Q8H, Dosing Weight 119.1, kg, PRN Nausea , Start date: 06/27/18 10:12:00 HAND II TUBE BENDER, Duration: 30 day, Stop date: 07/27/18 10:11 :00 CDT Notes: (Same as: Zofran) MEDICATION WASTE Product Size: 4 mgProduct Was [place]: ___ mg Start Date: 06/27/18 Stop Date: 06/28/18 Status: Discontinued Results ELECTROLYTES 1 2 3 Most recent to oldest [Reference Range]: 136 mEq/L (06/30/18 11:02 AM) 133 mEq/L *LOW* (06/29/18 4:17 AM) 137 mEq/L (06/25/18 8:22 PM) Sodium Lvl [135-145 mEq/L] 4.8 mEq/L (06/30/18 11:02 AM) 4.8 mEq/L (06/29/18 4:17 AM) 5.0 mEq/L (06/25/18 8:22 PM) Potassium Lvl [3.5-5.1 mEq/L] 101 mEq/L (06/30/18 11:02 AM) 99 mEq/L (06/29/18 4:17 AM) 109 mEq/L (06/25/18 8:22 PM) Chloride Lvl [95-109 mEq/L] 24 mEq/L (06/30/18 11:02 AM) 26 mEq/L (06/29/18:17 AM) 18 mEq/L *LOW* (06/25/18 8: PM) CO2 [24-32 mEq/L] 15.8 mEq/L (06/30/18 11:02 AM) 12.8 mEq/L (06/29/18 4:17 AM) 15.0 mEq/L (06/25/18 8:22 PM) AGAP [10.0-20.0 mEq/L] CHEM PANEL 1 2 3 Most recent to oldest [Reference Range]: 8.55 mg/dL *HI* (06/30/18 11:02 AM) 11.00 mg/dL *HI* (06/29/18 4:17 AM) 12.30 mg/dL *HI* (06/25/18 8:22 PM) Creatinine Lvl [0.50-1.40 mg/dL] 6 mL/min/1.73m2 1 *NA* (06/30/18 11:02 AM) 4 mL/min/1.73m2 2 *NA* (06/29/18 4:17 AM) 4 mL/min/1.73m2 3 *NA* (06/25/18 8:22 PM) eGFR 30 mg/dL *HI* (06/30/18 11:02 AM) 43 mg/dL *HI* (06/29/18 4:17 AM) 70 mg/dL *HI* (06/25/18 8:22 PM) BUN [7-22 mg/dL] 119 mg/dL *HI* (06/30/18 11:02 AM) 149 mg/dL *HI* (06/29/18 4:17 AM) 141 mg/dL *HI* (06/25/18 8:22 PM) Glucose Lvl [70-99 mg/dL] 8.3 mg/dL *LOW* (06/30/18 11:02 AM) 8.7 mg/dL (06/29/18 4:17 AM) 7.8 mg/dL *LOW* (06/25/18 8:22 PM) Calcium Lvl [8.5-10.5 mg/dL] 8.6 mg/dL *HI* (06/25/18 8:22 PM) Phosphorus [2.5-4.5 mg/dL] 2.2 mg/dL (06/25/18 8:22 PM) Magnesium Lvl [1.8-2.4 mg/dL] 1Result Comment: The eGFR is calculated [...] 3 Most recent to oldest [Reference Range]: <0.02 ng/mL (06/25/18 8:22 PM) Troponin-I [0.00-0.40 ng/mL] 1190 pg/mL *HI* (06/25/18 8:22 PM) BNP [<=100 pg/mL] IMMUNOLOGY 1 2 3 Most recent to oldest [Reference Range]: Negative *NA* (06/25/18 8:22 PM) Hep Bs Ag [Negative] HEMATOLOGY 1 2 3 Most recent to oldest [Reference Range]: 9.1 K/CMM (06/30/18 11:02 AM) 7.3 K/CMM (06/28/18 11:01 AM) 10.0 K/CMM (06/25/18 8:22 PM) WBC [3.7-10.4 K/CMM] 3.28 M/CMM *LOW* (06/30/18 11:02 AM) 2.93 M/CMM *LOW* (06/28/18 11:01 AM) 3.40 M/CMM *LOW* (06/25/18 8:22 PM) RBC [4.20-5.40 M/CMM] 9.7 g/dL *LOW* (3/9/19 11:02 AM) 8.8 g/dL *LOW* (06/28/18 11:01 AM) 8.9 g/dL *LOW* (06/26/18 2:38 PM) Hgb [12.0-16.0 g/dL] 30.8 % *LOW* (06/30/18 11:02 AM) 27.0 % *LOW* (06/28/18 11:01 AM) 26.3 % *LOW* (06/26/18 2:38 PM) Hct [36.0-48.0 %] 93.9 fL (06/30/18 11:02 AM) 92.1 fL (06/28/18 11:01 AM) 92.3 fL (06/25/18 8:22 PM) MCV [80.0-98.0 fL] 29.6 pg (06/30/18 11:02 AM) 30.0 pg (06/28/18 11:01 AM) 30.3 pg (06/25/18 8:22 PM) MCH [27.0-31.0 pg] 31.5 g/dL *LOW* (06/30/18 11:02 AM) 32.6 g/dL (06/28/18 11:01 AM) 32.8 g/dL (06/25/18 8:22 PM) MCHC [32.0-36.0 g/dL] 15.5 % *HI* (06/30/18 11:02 AM) 15.4 % *HI* (06/28/18 11:01 AM) 15.1 % *HI* (06/25/18 8:22 PM) RDW [11.5-14.5 %] 7.8 fL (06/30/18 11:02 AM) 7.9 fL (06/28/18 11:01 AM) 8.3 fL (06/25/18 8:22 PM) MPV [7.4-10.4 fL] 405 K/CMM (06/30/18 11:02 AM) 368 K/CMM (06/28/18 11:01 AM) 398 K/CMM (06/25/18 8:22 PM) Platelet [133-450 K/CMM] 54.8 % (06/30/18 11:02 AM) 50.6 % (06/28/18 11:01 AM) 65.3 % (06/25/18 8:22 PM) Segs [45.0-75.0 %] 29.5 % (06/30/18 11:02 AM) 32.3 % (06/28/18 11:01 AM) 23.8 % (06/25/18 8:22 PM) Lymphocytes [20.0-40.0 %] 11.4 % (06/30/18 11:02 AM) 11.3 % (06/28/18 11:01 AM) 6.1 % (06/25/18 8:22 PM) Monocytes [2.0-12.0 %] 3.0 % (06/30/18 11:02 AM) 4.8 % *HI* (06/28/18 11:01 AM) 3.5 % (06/25/18 8:22 PM) Eosinophils [0.0-4.0 %] 1.3 % *HI* (06/30/18 11:02 AM) 1.0 % (06/28/18 11:01 AM) 1.3 % *HI* (06/25/18 8:22 PM) Basophils [0.0-1.0 %] 5.0 K/CMM (06/30/18 11:02 AM) 3.7 K/CMM (06/28/18 11:01 AM) 6.5 K/CMM (06/25/18 8:22 PM) Neutrophils # [1.5-8.1 K/CMM] 2.7 K/CMM (06/30/18 11:02 AM) 2.3 K/CMM (06/28/18 11:01 AM) 2.4 K/CMM (06/25/18 8:22 PM) Lymphocytes # [1.0-5.5 K/CMM] 1.0 K/CMM *HI* (06/30/18 11:02 AM) 0.8 K/CMM (06/28/18 11:01 AM) 0.6 K/CMM (06/25/18 8:22 PM) Monocytes # [0.0-0.8 K/CMM] 0.3 K/CMM (06/30/18 11:02 AM) 0.4 K/CMM (06/28/18 11:01 AM) 0.3 K/CMM (06/25/18 8:22 PM) Eosinophils # [0.0-0.5 K/CMM] 0.1 K/CMM (06/30/18 11:02 AM) 0.1 K/CMM (06/28/18 11:01 AM) 0.1 K/CMM (06/25/18 8:22 PM) Basophils # [0.0-0.2 K/CMM] 13.7 seconds (06/25/18 8:22 PM) PT [12.0-14.7 seconds] 1.07 (06/25/18 8:22 PM) INR [0.85-1.17] 26.5 seconds (06/25/18 8:22 PM) PTT [22.9-35.8 seconds] Immunizations Given and [...] Reg Smoking Cessation Counseling No entered on: 06/25/18 1pt denies current alcohol use Assessment and Plan Extracted from: Title: Clinical Document Author: Max Mclaughlin MD Aldo e: 07/02/18 Progress Note - Daily [facility] Completed: Monday, JUL 02, 2018, 13:47 by Max Mclaughlin MD RM: 144 - 1P, SE GISELA ARECHIGA42y (: 1975) F Attending: Mathew Tolbert MDPhone: Service: Internal Medicine Reason for Admission: ACUTE HYPOXEMIC RESPIRATORY FAILURE, HYPERTENSION Working DRG: Code status: Full CodeCurrent diet: Isolation: Contact Allergies: Zofran, traMADol, Tylenol, [place] SUBJECTIVE She continues to have some tremors. She is sleepy. She got multiple doses of morphine yesterday. She complains of pain in the sacral area. No headache or weakness endorsed. OBJECTIVE (no lab data in past 24 hours) [place] still necessary (Yes/No): Line still necessary (Yes/No): VitalsTmp(F)[id number] 07/02 11:2898.785117/678951--- 07/02 10:4098.018306/8516------ 07/02 07:4098.8 07/02 07:08 1896--- 07/02 04:4497.907193/970842--- 24 Hr Tmax: 99.2F (37.33c) at 07/01 20:4 6Vital Signs are the last 5 in the past 48 hours. DateWt(kg)Wt(lb)Ht(cm)Ht(in)Method 06/11102.73 248.00Measured 06/30110.97 244.13Measured .10 246.62Measured 06/25 (initial)108.64 239.00Estimated .18 67.00Stated I&ORecordInOutBal 4hr Tot 12 9344-3373 1024hr Tot 25 0 25 Medications (15) Active [...] - work up per praimry team Extracted from: Title: General Admission H&P * Author: Rachael Woodson MD Date: 06/28/18 Impression and Plan Diagnosis Volume overload (BRJ72-YY E87.70, Admitting, Medical). Hypertension, malignant ([id number] I10, Admitting, Medical). Acute hypoxemic respiratory failure (NIK51-LK J96.01, Admitting, Medical). Post-menopausal bleeding (FAG33-JQ N95.0, Working, Medical). Orders Pelvic ultrasound. Education and Follow-up: Counseled: Patient. 42yo admitted with Acute hypoxemic respi ratiory failure, Volume overload, and hypertension and post menopausal bleeding PMB: no active bleeding and likely not the cause or related to her anemia of chronic disease; recommend pelvic ultrasound while inpatient and follow up with Private Detective as outpatient no further inpatient treatment recommended at this time Extracted from: Title: ICU History and Physical Author: Brett Guerrero [...] positive pressure ventilation requirement Allergies Allergies (3) ActiveReaction traMADolNone documented TylenolNone documented NorcoNone documented Procedure [...] solution 10,000 unit = 1 mL, SUB-Q, Q famotidine 20 mg oral tablet 20 mg [...] 120 Labs (Last four charted values) WBC 10.0(JUN 25) Hgb L 10.3(JUN 25) Hct L 31.3(JUN 25) Plt 398(JUN 25) Na 137(JUN 25) K 5.0(JUN 25) CO2 L 18(JUN 25) Cl 109(JUN 25) Cr H 12.30(JUN 25) BUN H 70(JUN 25) Glucose Random H 141(JUN 25) Mg 2.2(JUN 25) Phos H 8.6(JUN 25) Ca L 7.8(JUN 25) PT 13.7(JUN 25) INR 1.07(JUN 25) PTT 26.5(JUN 25) Troponin <0.02(JUN 25) All imaging reviewed. Objective: I&ORecordInOutBal 24hr Tot 0 0 0 24hr Tot 0 0 0 CCL error: %FKH-H-208-SMT_EDOC_COMMON(0,0)863568:2123Overflow on array out of bound at (size:1,occur:10). CCL error: %IJC-P-011-SMT_EDOC_COMMON(0,0)746331:2123Overflow on array out of bound at (size:1,occur:5). CCL error: %NJP-O-682-SMT_EDOC_COMMON(0,0)477743:2123Overflow on array out of bound at (size:1,occur:5). CCL error: %FPQ-R-956-SMT_EDOC_COMMON(0,0)499275:2123Overflow on array out of bound at (size:1,occur:7). CCL error: %KHN-O-873-SMT_EDOC_COMMON(0,0)088764:2123Overflow on array out of bound at (size:1,occur:2). (no lines, tubes, drains information doc umented) 06/25/2018 21:05 Non-Invasive Vent ModeBIPAP SpO2 [id number] 06/25/2018 19:52 Resp Rate, Set12 Pressure Mvldtyd61 PEEP/CPAP7 FIO2 (%)40 Ambu Bag Mask to O2Yes Resp Rate, Ttcqak82 Peak Pressure (cmH2O)13 Inspiratory Time1.0 Vital Signs (last 24 hrs) Last Charted Temp Oral97.9 DegF (JUN 25:20) Heart Rate Tfgscw39 bpm (JUN 25:11) Resp Rate 19 BRMIN (JUN 25:) SBPH 201mmHg (JUN 25:) DBP81 mmHg (JUN 25:) WfZ9416 % (JUN 25:) Aelqak738.63 kg (JUN 25:20) Gtvhhl081.18 cm (JUN 25:20) BMI37.51 (JUN 25:20) Exam: General: Ill-appearing, BiPAP in place, obese [...] emergency, restart oral antihypertensives Nonemergent 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
--- OUTSIDE RECORDS SUMMARY | 2019-09-10 20:12 | XMS REPORT | Summary of Care ---
Author Author [facility] spital Organization [facility] Address Unknown Phone Unavailable Encounter PRIMITIVO Mariano(SANGITA) [id number] Date(s): 08/17/19 - 08/17/19 [facility] [address] [place], [place] [address] [place] [phone] Discharge Disposition: Acute Care Attending Physician: Marva Worthington MD Vital Signs 1 2 3 Most recent to oldest [Reference Range]: 170.18 cm (08/17/19 1:29 PM) Height 97.7 DegF (08/17/19 11:13 PM) 97.5 DegF (08/17/19 10:15 PM) 97.5 DegF (08/17/19 9:30 PM) Temperature Oral [96.4-99.1 DegF] 136/79 mmHg (08/17/19 11:13 PM) 95/50 mmHg (08/17/19 11:05 PM) 90/47 mmHg (08/17/19 10:15 PM) Blood Pressure [90-140/60-90 mmHg] 16 BRMIN (08/17/19 11:13 PM) 18 BRMIN (08/17/19 9:30 PM) 21 BRMIN *HI* (08/17/19 8:20 PM) Respiratory Rate [14-20 BRMIN] 116 bpm *HI* (08/17/19 1:29 PM) Peripheral Pulse Rate [60-100 bpm] 116.636 kg (08/17/19 1:29 PM) Weight 40.27 m2 (08/17/19 3:12 PM) 40.27 m2 (08/17/19 1:29 PM) Body Mass Index Problem List Condition [...] Phenergan Active Tylenol Swelling of throat Active [place] Active traMADol Active Medications albuterol 10 mg, 12.05 mL, Route: NEB, Drug form: SOLN, ONCE, Start date: 08/17/19 18:37:0 0 CDT, Stop date: 08/17/19 18:37:00 CDT, 0 Notes: SEE RT DOCUMENTATION (Same as: Jony) Start Date: 08/17/19 Stop Date: 08/17/19 Status: Completed albuterol 0.5% inhalation solution 83 mg + Sodium Chloride 0.9% IV 233.4 mL 233.4 mL, Rate: 30 ml/hr, Infuse over: 7.8 hr, Route: NEB, Dosing Weight 116.636 kg, Total Volume: 233.4 mL, Delivers 10mg/30ml/hour., Start date: 08/17/19 14:5 0:00 CDT, Duration: 30 day, Stop date: 09/16/19 14:49:00 CDT, 2.38, m2 Start Date: 08/17/19 Stop Date: 08/17/19 Status: Voided With Results Ativan 1 mg, Route: IVP, Drug form: INJ, ONCE, Dosing Weight 116.636, kg, Priority: STA T, Start date: 08/17/19 21:28:00 CDT, Stop date: 08/17/19 21:28:00 CDT Start Date: 08/17/19 Stop Date: 08/17/19 Status: Completed d50 syringe 25 gm, 50 mL, Route: IVP, Drug Form: INJ, Dosing Weight 116.636, kg, ONCE, STAT, Start date: 08/17/19 14:49:00 CDT, Stop date: 08/17/19 14:49:00 CDT, 25 ml = 12 .5 gm, 0 Start Date: 08/17/19 Stop Date: 08/17/19 Status: Completed fentaNYL 25 microgram, Route: IVP, ONCE, Dosing Weight 116.636, kg, Priority: STAT, Start date: 08/17/19 21:28:00 CDT, Stop date: 08/17/19 21:28:00 CDT Start Date: 08/17/19 Stop Date: 08/17/19 Status: Completed furosemide 80 mg, 8 mL, Route: IVP, Drug form: INJ, ONCE, Dosing Weight 116.636, kg, Priori ty: STAT, Start date: 08/17/19 14:50:00 CDT, Stop date: 08/17/19 14:50:00 CDT, 0 Notes: (Same as: Lasix) MEDICATION WASTE Product Size: 40 mgProduct Was savana: ___ mg Start Date: 08/17/19 Stop Date: 08/17/19 Status: Completed Insulin regular 5 unit, 0.05 mL, Route: IV, Drug form: SOLN, ONCE, Dosing Weight 116.636, kg, Pr iority: STAT, Start date: 08/17/19 14:50:00 CDT, Stop date: 08/17/19 14:50:00 CD T, 0 Notes: (Same as: Humulin R) Roll in palms of hands gently; Do not shake vigorous ly. WASTE: F/P - Black; E - Municipal Trash BinStable for 31 days at r oom temperature Expires in days from Date Start Date: 08/17/19 Stop Date: 08/17/19 Status: Completed Kayexalate 60 gm, Route: PO, ONCE, Dosing Weight 116.636, kg, Priority: STAT, Start date: 0 08/17/19 14:50:00 CDT, Stop date: 08/17/19 14:50:00 CDT Start Date: 08/17/19 Stop Date: 08/17/19 Status: Discontinued Kayexalate 30 gm, 120 mL, Route: PO, Drug form: SUSP, ONCE, Dosing Weight 116.636, kg, Prio rity: STAT, Start date: 08/17/19 15:47:00 CDT, Stop date: 08/17/19 15:47:00 CDT, 0 Notes: (sodium polystyrene sulfonate 15 gm/60 ml LUCÍA) Shake well before use. (Same as: Kayexalate, SPS) Start Date: 08/17/19 Stop Date: 08/17/19 Status: Completed morphine Sulfate 4 mg, 1 mL, Route: IVP, Drug form: SOLN, ONCE, Dosing Weight 116.636, kg, Priori ty: STAT, Start date: 08/17/19 13:54:00 CDT, Stop date: 08/17/19 13:54:00 CDT, 0 Notes: (Same as:MORPhine Sulfate) Start Date: 08/17/19 Stop Date: 08/17/19 Status: Completed morphine Sulfate 4 mg, Route: IVP, ONCE, Dosing Weight 116.636, kg, Priority: STAT, Start date: 0 08/17/19 16:22:00 CDT, Stop date: 08/17/19 16:22:00 CDT Start Date: 08/17/19 Stop Date: 08/17/19 Status: Completed nitroglycerin 50 mg in D5W 250 mL (Titrate.) IV 100 mg 100 mg, 250 mL, Rate: Titrate, Start Dose: 10 microgram/min, Titration: 10 micro gram/min every 5 minutes, Goal(s): Chest pain and SBP between 100 - 150 mmHg, Ma x Dose: 200 mcg/min, Route: IV, Dosing Weight 116.636 kg, Total Volume: 250, Sta rt date: Notes: (Same as:Tridil) Final conc = 0.4 mg/ml. Premix bottle. Start Date: 08/17/19 Stop Date: 08/17/19 Status: Discontinued Nitrostat 0.3 mg sublingual tablet 0.3 mg, 1 tab, Route: SL, ONCE, Dosing Weight 116.636, kg, Start date: 08/17/19 14:53:00 CDT, Stop date: 08/17/19 14:53:00 CDT Start Date: 08/17/19 Stop Date: 08/17/19 Status: Discontinued Nitrostat 0.4 mg sublingual tablet 0.4 mg, 1 tab, Route: SL, Drug form: TAB, ONCE, Dosing Weight 116.636, kg, Prior ity: STAT, Start date: 08/17/19 15:47:00 CDT, Stop date: 08/17/19 15:47:00 CDT, 0 Notes: (Same as:Nitroquick, Nitrostat)"Do Not Crush" Sublingual tablet Start Date: 08/17/19 Stop Date: 08/17/19 Status: Completed Reglan 10 mg, Route: IVP, Drug form: INJ, ONCE, Dosing Weight 116.636, kg, Priority: ST AT, Start date: 08/17/19 15:35:00 CDT, Stop date: 08/17/19 15:35:00 CDT Start Date: 08/17/19 Stop Date: 08/17/19 Status: Completed Saline Flush 0.9% 10 mL, Route: IVP, Drug Form: INJ, Dosing Weight 116.636, kg, PRN, PRN Line Flus h, Start date: 08/17/19 15:12:00 CDT, Duration: 30 day, Stop date: 09/16/19 15:1 1:00 CDT, 0 Notes: Same as: BD Posiflush Sterile Start Date: 08/17/19 Stop Date: 08/18/19 Status: Discontinued Results 1 2 3 Most recent to oldest [Reference Range]: 9.1 K/CMM *HI* (08/17/19 2:13 PM) Neutrophils # [1.5-8.1 K/CMM] 1.5 K/CMM (08/17/19 2:13 PM) Lymphocytes # [1.0-5.5 K/CMM] 0.5 K/CMM (08/17/19 2:13 PM) Monocytes # [0.0-0.8 K/CMM] 0.2 K/CMM (08/17/19 2:13 PM) Eosinophils # [0.0-0.5 K/CMM] 0.1 K/CMM (08/17/19 2:13 PM) Basophils # [0.0-0.2 K/CMM] 648 pg/mL *HI* (08/17/19 2:13 PM) BNP [<=100 pg/mL] 9 mL/min/1.73m2 1 *NA* (08/17/19 9:58 PM) 4 mL/min/1.73m2 2 *NA* (08/17/19 3:31 PM) 3 mL/min/1.73m2 3 *NA* (08/17/19 2:13 PM) eGFR Product available 4 (08/17/19 2:51 PM) RBC product A POS *Unknown* (08/17/19 3:31 PM) ABO/Rh 0.7 (08/17/19 3:31 PM) 0.7 (08/17/19 2:13 PM) A/G Ratio [0.7-1.6] Negative (08/17/19 3:31 PM) Antibody Scrn 3.2 g/dL *LOW* (08/17/19 3:31 PM) 3.2 g/dL *LOW* (08/17/19 2:13 PM) Albumin Lvl [3.5-5.0 g/dL] 59 unit/L (08/17/19 3:31 PM) 59 unit/L (08/17/19 2:13 PM) Alk Phos [39-136 unit/L] 12 unit/L (08/17/19 3:31 PM) 12 unit/L (08/17/19 2:13 PM) ALT [0-65 unit/L] 12.3 mEq/L (08/17/19 9:58 PM) 15.5 mEq/L (08/17/19 3:31 PM) 15.5 mEq/L (08/17/19 2:13 PM) AGAP [10.0-20.0 mEq/L] 14 unit/L (08/17/19 3:31 PM) 11 unit/L (08/17/19 2:13 PM) AST [0-37 unit/L] 5 *LOW* (08/17/19 3:31 PM) 5 *LOW* (08/17/19 2:13 PM) B/C Ratio [6-25] 0.9 % (08/17/19 2:13 PM) Basophils [0.0-1.0 %] 25 mg/dL *HI* (08/17/19 9:58 PM) 64 mg/dL *HI* (08/17/19 3:31 PM) 64 mg/dL *HI* (08/17/19 2:13 PM) BUN [7-22 mg/dL] 8.6 mg/dL (08/17/19 9:58 PM) 8.6 mg/dL (08/17/19 3:31 PM) 8.9 mg/dL (08/17/19 2:13 PM) Calcium Lvl [8.5-10.5 mg/dL] 99 unit/L (08/17/19 3:31 PM) Total CK [12-191 unit/L] 100 mEq/L (08/17/19 9:58 PM) 106 mEq/L (08/17/19 3:31 PM) 105 mEq/L (08/17/19 2:13 PM) Chloride Lvl [95-109 mEq/L] 28 mEq/L (08/17/19 9:58 PM) 22 mEq/L *LOW* (08/17/19 3:31 PM) 23 mEq/L *LOW* (08/17/19 2:13 PM) CO2 [24-32 mEq/L] 5.98 mg/dL *HI* (08/17/19 9:58 PM) 12.50 mg/dL *HI* (08/17/19 3:31 PM) 12.60 mg/dL *HI* (08/17/19 2:13 PM) Creatinine Lvl [0.50-1.40 mg/dL] 1.7 % (08/17/19 2:13 PM) Eosinophils [0.0-4.0 %] 4.6 g/dL *HI* (08/17/19 3:31 PM) 4.3 g/dL *HI* (08/17/19 2:13 PM) Globulin [2.7-4.2 g/dL] 139 mg/dL *HI* (08/17/19 9:58 PM) 131 mg/dL *HI* (08/17/19 3:31 PM) 144 mg/dL *HI* (08/17/19 2:13 PM) Glucose Lvl [70-99 mg/dL] Negative *NA* (08/17/19 6:00 PM) Negative *NA* (08/17/19 6:00 PM) Hep Bs Ag [Negative] 20.7 % *LOW* (08/17/19 2:13 PM) Hct [36.0-48.0 %] 6.6 g/dL 5 *CRIT* (08/17/19 2:13 PM) Hgb [12.0-16.0 g/dL] 1.02 (08/17/19 3:31 PM) INR [0.85-1.17] 3.3 mEq/L *LOW* (08/17/19 9:58 PM) 7.5 mEq/L 6 *CRIT* (08/17/19 3:31 PM) 6.5 mEq/L 7 *CRIT* (08/17/19 2:13 PM) Potassium Lvl [3.5-5.1 mEq/L] 13.3 % *LOW* (08/17/19 2:13 PM) Lymphocytes [20.0-40.0 %] 31.7 pg *HI* (08/17/19 2:13 PM) MCH [27.0-31.0 pg] 32.0 g/dL (08/17/19 2:13 PM) MCHC [32.0-36.0 g/dL] 99.0 fL *HI* (08/17/19 2:13 PM) MCV [80.0-98.0 fL] 4.6 % (08/17/19 2:13 PM) Monocytes [2.0-12.0 %] 7.6 fL (08/17/19 2:13 PM) MPV [7.4-10.4 fL] 137 mEq/L (08/17/19 9:58 PM) 136 mEq/L (08/17/19 3:31 PM) 137 mEq/L (08/17/19 2:13 PM) Sodium Lvl [135-145 mEq/L] 330 K/CMM (08/17/19 2:13 PM) Platelet [133-450 K/CMM] 79.5 % *HI* (08/17/19 2:13 PM) Segs [45.0-75.0 %] 7.8 g/dL (08/17/19 3:31 PM) 7.5 g/dL (08/17/19 2:13 PM) Total Protein [6.4-8.4 g/dL] 13.4 seconds (08/17/19 3:31 PM) PT [12.0-14.7 seconds] 29.4 seconds (08/17/19 3:31 PM) PTT [22.9-35.8 seconds] Not Detected (08/17/19 9:58 PM) Coronavirus (COVID-19) ABBIE [Not Detected] 2.10 M/CMM *LOW* (08/17/19 2:13 PM) RBC [4.20-5.40 M/CMM] 16.9 % *HI* (08/17/19 2:13 PM) RDW [11.5-14.5 %] Negative *NA* (08/17/19 2:13 PM) S Preg [Negative] 0.2 mg/dL (08/17/19 3:31 PM) 0.3 mg/dL (08/17/19 2:13 PM) Bili Total [0.2-1.3 mg/dL] 0.02 ng/mL (08/17/19 3:31 PM) 0.02 ng/mL (08/17/19 2:13 PM) Troponin-I [0.00-0.40 ng/mL] 11.5 K/CMM *HI* (08/17/19 2:13 PM) WBC [3.7-10.4 K/CMM] 1Result Comment: The eGFR is calculated using [...] tiplied by the estimated BMI. 4Result Comment: 08/17/2019 16:14 [id number] Blood available, notified Star at _08/17/2019 16:14 by _. 5Result Comment: Critical Result(s) called to Vikki Ram at 08/17/2019 14:23 by Vince Crespo. Read back OK. 6Result Comment: Critical Result(s) called to Alban Coats RN at 08/17/2019 16:01 by [facility]. Read back OK. 7Result Comment: Critical Result(s) called to Vikki Ram RN at 08/17/2019 14:43 by [place]. Read back OK. Immunizations Given and Recorded [...] MD Date: Nephrology and Apheresis Consult DOS: 08/17/2019 Referring Physician: Marva Worthington MD Reason for Consultation: Continuation of dialysis HPI: Ms. Gisela Hernandez is a 43-year-old lady with a history of ESRD on Monday through her right upper extremity AV fistula who came to [facility] [place] [place] ER for acute onset of shortness of breath. Medical history is remarkable for ESRD x2 years on dialysis, diabetes, hypertension, and status post BKA of the right. Ms. Hernandez had a similar presentation a year ago which also required emergent hemodialysis. At baseline, she still makes urine over 500 cc/day. She normally gets her dialysis at [facility] under a patient account specialist whom she cannot recall. Last hemodialysis prior [...] input. Over 50% of time was spent [id number] with the patient and I discussed the plan with providers involved. Kevin Donald MD, MS Nephrology and Apheresis Wound care and Hyperbarics [facility] Office: [phone]
--- OUTSIDE RECORDS SUMMARY | 2019-09-10 20:12 | XMS REPORT | Summary of Care ---
Author Author [facility] Address Unknown Phone Unavailable Encounter HQ [place](FIN) [id number] Date(s): 06/27/17 - 06/28/17 [facility] [id number] [place] [address]- [facility] [phone] Encounter Diagnosis Fluid overload, unspecified (Final) - 07/07/17 Hyperkalemia (Final) - Hypertensive emergency (Final) - Acidosis (Final) - Type 2 diabetes mellitus with hyperglycemia (Final) - Type 2 diabetes mellitus with diabetic autonomic (poly)neuropathy (Final) - Type 2 diabetes mellitus with diabetic chronic kidney disease (Final) - Hypertensive heart and chronic kidney disease with heart failure and with stage 5 chronic kidney disease, or end stage renal disease (Final) - Heart failure, unspecified (Final) - End stage renal disease (Final) - Anemia in chronic kidney disease (Final) - Gastroparesis (Final) - Chronic pulmonary edema (Final) - Hyperlipidemia, unspecified (Final) - Pure hypercholesterolemia, unspecified (Final) - Major depressive disorder, single episode, unspecified (Final) - Anxiety disorder, unspecified (Final) - half-way (current) use of insulin (Final) - Dependence on renal dialysis (Final) - Patient's noncompliance with renal dialysis (Final) - Discharge Disposition: Home or Self Care Attending Physician: Denis Joy MD Admitting Physician: Denis Joy MD Vital Signs 1 2 3 Most recent to oldest [Reference Range]: 170.18 cm (06/27/17 6:36 AM) Height 98.2 DegF (06/28/17 11:00 AM) 98.4 DegF (06/28/17 8:08 AM) 98.0 DegF (06/28/17 3:24 AM) Temperature Oral [96.4-99.1 DegF] 145/90 mmHg *HI* (06/28/17 11:00 AM) 162/100 mmHg *HI* (06/28/17 8:08 AM) 120/79 mmHg (06/28/17 3:24 AM) Blood Pressure [90-140/60-90 mmHg] 18 BRMIN (06/28/17 11:00 AM) 20 BRMIN (06/28/17 8:08 AM) 20 BRMIN (06/28/17 3:24 AM) Respiratory Rate [14-20 BRMIN] 70 bpm (06/28/17 11:00 AM) 63 bpm (06/28/17 8:08 AM) 98 bpm (06/28/17 3:24 AM) Peripheral Pulse Rate [60-100 bpm] 100.455 kg (06/27/17 11:27 AM) 100.455 kg (06/27/17 6:36 AM) Weight 34.69 m2 (06/27/17 6:36 AM) Body Mass Index Problem List Condition [...] Alerts Substance Reaction Severity Status Tylenol Active Brooks Active NKDA Active Medications atorvastatin 40 mg, 1 tab, Route: PO, Drug form: TAB, Bedtime, Dosing Weight 100.455, kg, Sta rt date: 06/27/17 21:00:00 DENTAL INTERN, Duration: 30 day, Stop date: 07/26/17 21:00:00 C DT Notes: (Same as: Lipitor) Start Date: 06/27/17 Stop Date: 06/28/17 Status: Discontinued carvedilol 25 mg, 2 tab, Route: PO, Drug form: TAB, BID, Dosing Weight 100.455, kg, Priorit y: NOW, Start date: 06/27/17 11:23:00 DENTAL INTERN, Duration: 30 day, Stop date: 07/27/17 9:00:00 CDT Notes: Give with food. (Same As: Coreg) Start Date: 06/27/17 Stop Date: 06/28/17 Status: Discontinued carvedilol 25 mg oral tablet 25 mg = 1 tab, PO, BID, # 180 tab, 0 Refill(s) Start Date: 06/27/17 Status: Ordered Dextrose 50% Syringe 25 gm, 50 mL, Route: IVP, Drug Form: INJ, Dosing Weight 100.455, kg, PRN, PRN Bl ood Glucose Results, Start date: 06/27/17 13:43:00 DENTAL INTERN, Duration: 30 day, Stop d ate: 07/27/17 14:42:00 CDT Start Date: 06/27/17 Stop Date: 06/28/17 Status: Discontinued Dextrose 50% Syringe 12.5 gm, 25 mL, Route: IVP, Drug Form: INJ, Dosing Weight 100.455, kg, PRN, PRN Blood Glucose Results, Start date: 06/27/17 13:43:00 DENTAL INTERN, Duration: 30 day, Stop date: 07/27/17 14:42:00 CDT Start Date: 06/27/17 Stop Date: 06/28/17 Status: Discontinued Dilaudid 0.2 mg, 0.2 mL, Route: IVP, Drug form: INJ, Q3H, Dosing Weight 100.455, kg, PRN Pain Score 7-10, Start date: 06/27/17 10:06:00 DENTAL INTERN, Duration: 30 day, Stop date: 07/27/17 10:05:00 CDT Notes: Same as: Dilaudid Start Date: 06/27/17 Stop Date: 06/28/17 Status: Discontinued docusate sodium 100 mg oral capsule 100 mg, 1 cap, Route: PO, Drug form: CAP, BID, Dosing Weight 100.455, kg, PRN Co nstipation, Start date: 06/27/17 11:23:00 DENTAL INTERN, Duration: 30 day, Stop date: 09/08 11:22:00 CDT Notes: (Same as: Colace) (Do Not Crush) Start Date: 06/27/17 Stop Date: 06/28/17 Status: Discontinued docusate sodium 100 mg oral capsule 100 mg = 1 cap, PO, Daily, # 30 cap, 0 Refill(s), Pharmacy: [facility] [id number] Start Date: 06/28/17 Stop Date: 08/16/17 Status: Completed glucagon 1 mg, Route: IM, Drug form: PDR/INJ, PRN, Dosing Weight 100.455, kg, PRN Blood G lucose Results, Start date: 06/27/17 13:43:00 DENTAL INTERN, Duration: 30 day, Stop date: 07/27/17 14:42:00 CDT Start Date: 06/27/17 Stop Date: 06/28/17 Status: Discontinued heparin 10,000 unit, 10 mL, Route: DIALYSIS, Drug form: INJ, ONCALL, Dosing Weight 100.4 55, kg, Start date: 06/27/17 11:00:00 DENTAL INTERN, Duration: 1 doses or times Start Date: 06/27/17 Stop Date: 06/28/17 Status: Discontinued heparin 5,000 unit, 1 mL, Route: SUB-Q, Drug form: INJ, Q8H, Dosing Weight 100.455, kg, Start date: 06/27/17 16:00:00 DENTAL INTERN, Duration: 30 day, Stop date: 07/27/17 8:00:00 CDT Notes: porcine heparin Start Date: 06/27/17 Stop Date: 06/28/17 Status: Discontinued hydrALAZINE 10 mg, 0.5 mL, Route: IVP, Drug form: INJ, ONCE, Dosing Weight 100.455, kg, Prio rity: STAT, Start date: 06/27/17 6:59:00 DENTAL INTERN, Stop date: 06/27/17 6:59:00 DENTAL INTERN Notes: (Same as: Apresoline)Push over 5 minutes Start Date: 06/27/17 Stop Date: 06/27/17 Status: Completed hydrALAZINE 50 mg oral tablet 50 mg, 1 tab, Route: PO, Drug form: TAB, TID, Dosing Weight 100.455, kg, Priorit y: NOW, Start date: 06/27/17 11:23:00 DENTAL INTERN, Duration: 30 day, Stop date: 07/27/17 9:00:00 CDT Notes: (Same as: Apresoline) May interfere w/enteral feedings Take With Food Start Date: 06/27/17 Stop Date: 06/28/17 Status: Discontinued insulin lispro 10 unit, 0.1 mL, Route: SUB-Q, Drug form: SOLN, TID-Before Meals, Dosing Weight 100.455, kg, PRN Blood Glucose Results, Start date: 06/27/17 13:43:00 DENTAL INTERN, Durat ion: 30 day, Stop date: 07/27/17 13:42:00 CDT Notes: (Same as: Humalog ) Roll in palms of hands gently; Do not shake `vigorou sly. "Single Patient Use Only " WASTE: F/P - Black; E - [facility] [employer] [address] able for 28 days at room temperature.Expires in days from Da te Start Date: 06/27/17 Stop Date: 06/28/17 Status: Discontinued insulin lispro 8 unit, 0.08 mL, Route: SUB-Q, Drug form: SOLN, TID-Before Meals, Dosing Weight 100.455, kg, PRN Blood Glucose Results, Start date: 06/27/17 13:43:00 DENTAL INTERN, Durat ion: 30 day, Stop date: 07/27/17 13:42:00 CDT Notes: (Same as: Humalog ) Roll in palms of hands gently; Do not shake `vigorou sly. "Single Patient Use Only " WASTE: F/P - Black; E - [facility] [address] [address] able for 28 days at room temperature.Expires in days from Da te Start Date: 06/27/17 Stop Date: 06/28/17 Status: Discontinued insulin lispro 6 unit, 0.06 mL, Route: SUB-Q, Drug form: SOLN, TID-Before Meals, Dosing Weight 100.455, kg, PRN Blood Glucose Results, Start date: 06/27/17 13:43:00 DENTAL INTERN, Durat ion: 30 day, Stop date: 07/27/17 13:42:00 CDT Notes: (Same as: Humalog ) Roll in palms of hands gently; Do not shake `vigorou sly. "Single Patient Use Only " WASTE: F/P - Black; E - [facility] [address] able for 28 days at room temperature.Expires in days from Da te Start Date: 06/27/17 Stop Date: 06/28/17 Status: Discontinued insulin lispro 4 unit, 0.04 mL, Route: SUB-Q, Drug form: SOLN, TID-Before Meals, Dosing Weight 100.455, kg, PRN Blood Glucose Results, Start date: 06/27/17 13:43:00 DENTAL INTERN, Durat ion: 30 day, Stop date: 07/27/17 13:42:00 CDT Notes: (Same as: Humalog ) Roll in palms of hands gently; Do not shake `vigorou sly. "Single Patient Use Only " WASTE: F/P - Black; E - [facility] [address] [address] able for 28 days at room temperature.Expires in days from Da te Start Date: 06/27/17 Stop Date: 06/28/17 Status: Discontinued insulin lispro 2 unit, 0.02 mL, Route: SUB-Q, Drug form: SOLN, TID-Before Meals, Dosing Weight 100.455, kg, PRN Blood Glucose Results, Start date: 06/27/17 13:43:00 DENTAL INTERN, Durat ion: 30 day, Stop date: 07/27/17 13:42:00 CDT Notes: (Same as: Humalog ) Roll in palms of hands gently; Do not shake `vigorou sly. "Single Patient Use Only " WASTE: F/P - Black; E - [facility] [address] [address] able for 28 days at room temperature.Expires in days from Da te Start Date: 06/27/17 Stop Date: 06/28/17 Status: Discontinued Lasix 40 mg oral tablet 40 mg, 1 tab, Route: PO, Drug form: TAB, BID, Dosing Weight 100.455, kg, Start d ate: 06/27/17 17:00:00 DENTAL INTERN, Duration: 30 day, Stop date: 07/27/17 9:00:00 CDT Notes: (Same as: Lasix) May cause GI upset. Give with food or milk. Start Date: 06/27/17 Stop Date: 06/28/17 Status: Discontinued metoclopramide 5 mg oral tablet 5 mg, 1 tab, Route: PO, Drug form: TAB, QID-Before Meals, Dosing Weight 100.455, kg, Start date: 06/27/17 11:30:00 DENTAL INTERN, Duration: 30 day, Stop date: 07/27/17 7: 30:00 CDT Notes: (Same as: Reglan) Take 30 min before meals Start Date: 06/27/17 Stop Date: 06/28/17 Status: Discontinued MiraLax oral powder for reconstitution 17 gm, PO, Daily, X 31 day, # 527 gm, 0 Refill(s), Pharmacy: [facility] [id number] Start Date: 06/28/17 Stop Date: 07/29/17 Status: Completed morphine Sulfate 4 mg, 1 mL, Route: IVP, Drug form: SOLN, ONCE, Dosing Weight 100.455, kg, Priori ty: STAT, Start date: 06/27/17 6:57:00 DENTAL INTERN, Stop date: 06/27/17 6:57:00 DENTAL INTERN Notes: (Same as:MORPhine Sulfate) Start Date: 06/27/17 Stop Date: 06/27/17 Status: Completed NIFEdipine 90 mg oral tablet, extended release 90 mg, 1 tab, Route: PO, Drug form: ERTAB, Daily, Dosing Weight 100.455, kg, Bessie ority: NOW, Start date: 06/27/17 11:23:00 DENTAL INTERN, Duration: 30 day, Stop date: 09/08 9:00:00 CDT Notes: (Same as: Adalat CC,Procardia XL)"Do Not Crush" "Avoid grapefruit and gr apefruit juice" Start Date: 06/27/17 Stop Date: 06/27/17 Status: Discontinued Brooks 5/325 oral tablet 1 tab, Route: PO, Drug Form: TAB, Dosing Weight 100.455, kg, Q6H, Start date: 12:00:00 DENTAL INTERN, Duration: 30 day, Stop date: 07/27/17 6:00:00 CDT Notes: (Same as: Brooks 325/5) Do not exceed 4gm/day of acetaminophen. Start Date: 06/27/17 Stop Date: 06/27/17 Status: Discontinued Brooks 5/325 oral tablet 1 tab, Route: PO, Dosing Weight 100.455, kg, Q6H, Start date: 06/27/17 12:00:00 DENTAL INTERN, Duration: 30 day, Stop date: 07/27/17 6:00:00 CDT Start Date: 06/27/17 Stop Date: 06/27/17 Status: Canceled pantoprazole 40 mg, 1 tab, Route: PO, Drug form: ECTAB, Before Breakfast, Dosing Weight 100.4 55, kg, Start date: 06/28/17 7:30:00 DENTAL INTERN, Duration: 30 day, Stop date: 07/27/17 7:30:00 CDT Notes: Tablet should not be chewed or crushed.(Same as: Protonix) Start Date: 06/28/17 Stop Date: 06/28/17 Status: Discontinued Zofran 4 mg, 2 mL, Route: IVP, Drug form: INJ, Q8H, Dosing Weight 100.455, kg, PRN Naus ea, Start date: 06/27/17 10:06:00 DENTAL INTERN, Duration: 30 day, Stop date: 07/27/17 10: 05:00 CDT Notes: (Same as: Zofran) MEDICATION WASTE Product Size: 4 mgProduct Was savana: ___ mg Start Date: 06/27/17 Stop Date: 06/28/17 Status: Discontinued Zofran 4 mg, 2 mL, Route: IVP, Drug form: INJ, ONCE, Dosing Weight 100.455, kg, Priorit y: STAT, Start date: 06/27/17 6:57:00 DENTAL INTERN, Stop date: 06/27/17 6:57:00 DENTAL INTERN Notes: (Same as: Zofran) MEDICATION WASTE Product Size: 4 mgProduct Was savana: ___ mg Start Date: 06/27/17 Stop Date: 06/27/17 Status: Completed Results ELECTROLYTES 1 2 3 Most recent to oldest [Reference Range]: 139 mEq/L (06/28/17 3:28 AM) 138 mEq/L (06/27/17 6:58 AM) Sodium Lvl [135-145 mEq/L] 5.3 mEq/L *HI* (06/28/17 3:28 AM) 5.6 mEq/L *HI* (06/27/17 6:58 AM) Potassium Lvl [3.5-5.1 mEq/L] 106 mEq/L (06/28/17 3:28 AM) 110 mEq/L *HI* (06/27/17 6:58 AM) Chloride Lvl [95-109 mEq/L] 26 mEq/L (06/28/17 3:28 AM) 20 mEq/L *LOW* (06/27/17 6:58 AM) CO2 [24-32 mEq/L] 12.3 mEq/L (06/28/17 3:28 AM) 13.6 mEq/L (06/27/17 6:58 AM) AGAP [10.0-20.0 mEq/L] CHEM PANEL 1 2 3 Most recent to oldest [Reference Range]: 5.65 mg/dL *HI* (06/28/17 3:28 AM) 7.05 mg/dL *HI* (06/27/17 6:58 AM) Creatinine Lvl [0.50-1.40 mg/dL] 10 mL/min/1.73m2 1 *NA* (06/28/17 3:28 AM) 8 mL/min/1.73m2 2 *NA* (06/27/17 6:58 AM) eGFR 46 mg/dL *HI* (06/28/17 3:28 AM) 64 mg/dL *HI* (06/27/17 6:58 AM) BUN [7-22 mg/dL] 8 (06/28/17 3:28 AM) 9 (06/27/17 6:58 AM) B/C Ratio [6-25] 144 mg/dL *HI* (06/28/17 3:28 AM) 141 mg/dL *HI* (06/27/17 6:58 AM) Glucose Lvl [70-99 mg/dL] 6.5 g/dL (06/28/17 3:28 AM) 8.2 g/dL (06/27/17 6:58 AM) Total Protein [6.4-8.4 g/dL] 2.1 g/dL *LOW* (06/28/17 3:28 AM) 2.6 g/dL *LOW* (06/27/17 6:58 AM) Albumin Lvl [3.5-5.0 g/dL] 4.4 g/dL *HI* (06/28/17 3:28 AM) 5.6 g/dL *HI* (06/27/17 6:58 AM) Globulin [2.7-4.2 g/dL] 0.5 *LOW* (06/28/17 3:28 AM) 0.5 *LOW* (06/27/17 6:58 AM) A/G Ratio [0.7-1.6] 7.7 mg/dL *LOW* (06/28/17 3:28 AM) 8.2 mg/dL *LOW* (06/27/17 6:58 AM) Calcium Lvl [8.5-10.5 mg/dL] 6.6 mg/dL *HI* (06/28/17 3:28 AM) Phosphorus [2.5-4.5 mg/dL] 1.9 mg/dL (06/28/17 3:28 AM) Magnesium Lvl [1.8-2.4 mg/dL] 11 unit/L (06/28/17 3:28 AM) 12 unit/L (06/27/17 6:58 AM) ALT [0-65 unit/L] 7 unit/L (06/28/17 3:28 AM) 14 unit/L (06/27/17 6:58 AM) AST [0-37 unit/L] 76 unit/L (06/28/17 3:28 AM) 93 unit/L (06/27/17 6:58 AM) Alk Phos [39-136 unit/L] 0.2 mg/dL (06/28/17 3:28 AM) 0.2 mg/dL (06/27/17 6:58 AM) Bili Total [0.2-1.3 mg/dL] 197 unit/L (06/27/17 6:58 AM) Lipase Lvl [73-393 unit/L] 1Result Comment: [...] 3 Most recent to oldest [Reference Range]: 313 unit/L *HI* (06/27/17 6:58 AM) Total CK [12-191 unit/L] 2.4 ng/mL (06/27/17 6:58 AM) CK MB [0.5-3.6 ng/mL] 0.8 (06/27/17 6:58 AM) CK MB Index [0.0-2.5] <0.02 ng/mL (06/27/17 6:58 AM) Troponin-I [0.00-0.40 ng/mL] IMMUNOLOGY 1 2 3 Most recent to oldest [Reference Range]: Negative *NA* (06/27/17 9:55 AM) Hep Bs Ag [Negative] HEMATOLOGY 1 2 3 Most recent to oldest [Reference Range]: 6.0 K/CMM (06/28/17 3:28 AM) 10.1 K/CMM (06/27/17 6:58 AM) WBC [3.7-10.4 K/CMM] 2.41 M/CMM *LOW* (06/28/17 3:28 AM) 3.07 M/CMM *LOW* (06/27/17 6:58 AM) RBC [4.20-5.40 M/CMM] 8.2 g/dL *LOW* (06/28/17 10:00 AM) 7.1 g/dL *LOW* (06/28/17 3:28 AM) 9.2 g/dL *LOW* (06/27/17 6:58 AM) Hgb [12.0-16.0 g/dL] 21.4 % *LOW* (06/28/17 3:28 AM) 27.5 % *LOW* (06/27/17 6:58 AM) Hct [36.0-48.0 %] 88.6 fL (06/28/17 3:28 AM) 89.4 fL (06/27/17 6:58 AM) MCV [80.0-98.0 fL] 29.5 pg (06/28/17 3:28 AM) 29.9 pg (06/27/17 6:58 AM) MCH [27.0-31.0 pg] 33.3 g/dL (06/28/17 3:28 AM) 33.5 g/dL (06/27/17 6:58 AM) MCHC [32.0-36.0 g/dL] 15.7 % *HI* (06/28/17 3:28 AM) 15.8 % *HI* (06/27/17 6:58 AM) RDW [11.5-14.5 %] 8.6 fL (06/28/17 3:28 AM) 8.8 fL (06/27/17 6:58 AM) MPV [7.4-10.4 fL] 288 K/CMM (06/28/17 3:28 AM) 351 K/CMM (06/27/17 6:58 AM) Platelet [133-450 K/CMM] 58.9 % (06/28/17 3:28 AM) 59.5 % (06/27/17 6:58 AM) Segs [45.0-75.0 %] 27.1 % (06/28/17 3:28 AM) 29.5 % (06/27/17 6:58 AM) Lymphocytes [20.0-40.0 %] 10.0 % (06/28/17 3:28 AM) 7.3 % (06/27/17 6:58 AM) Monocytes [2.0-12.0 %] 3.4 % (06/28/17 3:28 AM) 2.8 % (06/27/17 6:58 AM) Eosinophils [0.0-4.0 %] 0.6 % (06/28/17 3:28 AM) 0.9 % (06/27/17 6:58 AM) Basophils [0.0-1.0 %] 3.5 K/CMM (06/28/17 3:28 AM) 6.0 K/CMM (06/27/17 6:58 AM) Segs-Bands # [1.5-8.1 K/CMM] 1.6 K/CMM (06/28/17 3:28 AM) 3.0 K/CMM (06/27/17 6:58 AM) Lymphocytes # [1.0-5.5 K/CMM] 0.6 K/CMM (06/28/17 3:28 AM) 0.7 K/CMM (06/27/17 6:58 AM) Monocytes # [0.0-0.8 K/CMM] 0.2 K/CMM (06/28/17 3:28 AM) 0.3 K/CMM (06/27/17 6:58 AM) Eosinophils # [0.0-0.5 K/CMM] 0.1 K/CMM (06/27/17 6:58 AM) Basophils # [0.0-0.2 K/CMM] Immunizations Given [...] * Author: Ernie Woods MD Date : 06/27/17 Impression and Plan 1.Volume overload 2.Hyperkalemia 3.ESRD missed HD 4.Pleural effusions 5.Acidemia metabolic acidosis 6.Anemia in CKD 7.Hypertensive CKD 8.DM2 Recs: Had emergent HD for clearance and volume control Much improved HTN control is improved with HD Can d/c home Thank you for this consultation D/w patient HD RN and ER MD Extracted from: Title: UIP Hospitalist Admission Author: Lolis Sharp MD Date: 06/27/17 [facility] Hospitalist Marcio dmission History & [...] says this is because she was given Brooks. Also complaining of abdominal pain. 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 Psych: Appropriate mood and affect. I&ORecordInOutBal 06/623hr Tot 2 0 2 06/523hr Tot 0 0 0 Lines, Tubes, and [...] (06/27/17 07:27:25) Potassium Lvl: 5.6 mEq/L High (06/27/17::25) BUN: 64 mg/dL High (06/27/17:27:25) AGAP: 13.6 mEq/L (06/27/17:27:25) Creatinine Lvl: 7.05 mg/dL High (06/27/17::25) Imaging: Reviewed Assessment/Plan: 1. ESRD 2, Hyperkalemia [...] Disposition: 1 [place] Lolis Sharp MD Hospitalist [facility]
--- OUTSIDE RECORDS SUMMARY | 2019-09-10 20:13 | XMS REPORT | Summary of Care ---
Author Author [facility] Organization [facility] Address Unknown Phone Unavailable Encounter PRIMITIVO Mariano(SANGITA) [id number] Date(s): 01/10/16 - 01/10/[address] [facility] [address] [employer] provided by [facility] [place] [address]- Discharge Diagnosis: Anterior leg pain Discharge Disposition: Home or Self Care Attending Physician: Ever Cardenas MD Vital Signs Most recent to 1 2 oldest [Reference Range]: Height 170.18 cm (01/10/16 7:24 PM) Temperature Oral 98.0 DegF [96.4-99.1 DegF] (01/10/16 7:24 PM) Blood Pressure 175/92 mmHg 123/83 mmHg [90-140/60-90 mmHg] *HI* (01/10/16 7:24 PM) (01/10/16 11:30 PM) Respiratory Rate 19 BRMIN 20 BRMIN [14-20 BRMIN] (01/10/16 11:30 PM) (01/10/16 7:24 PM) Peripheral Pulse 98 bpm 102 bpm Rate [60-100 bpm] (01/10/16 11:30 PM) *HI* (01/10/16 7:24 PM) Weight 112.727 kg (01/10/16 7:24 PM) Body Mass Index 38.92 m2 (01/10/16 7:24 PM) Problem List Condition Effective Dates Status Health Status Informan t CHF - Congestive Active heart failure(Confirmed) DM (diabetes Active mellitus)(Confirmed) HTN - Active Hypertension(Confirm ed) Neuropathy(Confirmed Active ) Allergies, Adverse Reactions, Alerts Substance Reaction Severity Status NKDA Active Medications acetaminophen-hydrocodone 325 mg-5 mg oral tablet 1 tab, Route: PO, Drug Form: TAB, Dosing Weight 112.727, kg, ONCE, STAT, Start d ate: 01/10/16 19:50:00 CDT, Stop date: 01/10/16 19:50:00 CDT Notes: (Same as: [place] 325/5) Do not exceed 4gm/day of acetaminophen. Start Date: 01/10/16 Stop Date: 01/10/16 Status: Completed gabapentin 300 mg oral capsule 300 mg = 1 cap, PO, BID, # 60 cap, 0 Refill(s) Start Date: 01/10/16 Stop Date: 02/09/16 Status: Ordered gabapentin 300 mg oral capsule 300 mg, 1 cap, Route: PO, Drug form: CAP, TID, Dosing Weight 112.727, kg, Start date: 01/11/16 9:00:00 CDT, Duration: 30 day, Stop date: 02/09/16 17:00:00 CDT Notes: (Same as: Neurontin) Start Date: 01/11/16 Stop Date: 01/11/16 Status: Canceled morphine Sulfate 2 mg, 1 mL, Route: IM, Drug form: INJ, ONCE, Dosing Weight 112.727, kg, Start da te: 01/10/16 21:18:00 CDT, Stop date: 01/10/16 21:18:00 CDT Notes: (Same as:MORPhine Sulfate) Start Date: 01/10/16 Stop Date: 01/10/16 Status: Completed morphine Sulfate 2 mg, 1 mL, Route: IVP, Drug form: INJ, ONCE, Dosing Weight 112.727, kg, Priorit y: STAT, Start date: 01/10/16 19:55:00 CDT, Stop date: 01/10/16 19:55:00 CDT Notes: (Same as:MORPhine Sulfate) Start Date: 01/10/16 Stop Date: 01/10/16 Status: Discontinued Results ELECTROLYTES Most recent to 1 oldest [Reference Range]: Sodium Lvl [135-145 138 mEq/L mEq/L] (01/10/16 8:21 PM) Potassium Lvl 4.9 mEq/L 1 [3.5-5.1 mEq/L] (01/10/16 8:21 PM) Chloride Lvl [95-109 106 mEq/L mEq/L] (01/10/16 8:21 PM) CO2 [24-32 mEq/L] 23 mEq/L *LOW* (01/10/16 8:21 PM) AGAP [10.0-20.0 13.9 mEq/L mEq/L] (01/10/16 8:21 PM) 1Result Comment: Specimen Slightly Hemolyzed. CHEM PANEL Most recent to 1 oldest [Reference Range]: Creatinine Lvl 1.67 mg/dL [0.50-1.40 mg/dL] *HI* (01/10/16 8:21 PM) eGFR 43 mL/min/1.73m2 1 *NA* (01/10/16 8:21 PM) BUN [7-22 mg/dL] 18 mg/dL (01/10/16 8:21 PM) Glucose Lvl [70-99 131 mg/dL mg/dL] *HI* (01/10/16 8:21 PM) Calcium Lvl 8.5 mg/dL [8.5-10.5 mg/dL] (01/10/16 8:21 PM) 1Result Comment: The eGFR is calculated [...] be mul tiplied by the estimated BMI. HEMATOLOGY Most recent to 1 oldest [Reference Range]: WBC [3.7-10.4 K/CMM] 10.8 K/CMM *HI* (01/10/16 8:21 PM) RBC [4.20-5.40 3.18 M/CMM M/CMM] *LOW* (01/10/16 8:21 PM) Hgb [12.0-16.0 g/dL] 8.8 g/dL *LOW* (01/10/16 8:21 PM) Hct [36.0-48.0 %] 27.2 % *LOW* (01/10/16 8:21 PM) MCV [80.0-98.0 fL] 85.8 fL (01/10/16 8:21 PM) MCH [27.0-31.0 pg] 27.8 pg (01/10/16 8:21 PM) MCHC [32.0-36.0 32.4 g/dL g/dL] (01/10/16 8:21 PM) RDW [11.5-14.5 %] 15.8 % *HI* (01/10/16 8:21 PM) Platelet [133-450 511 K/CMM K/CMM] *HI* (01/10/16 8:21 PM) MPV [7.4-10.4 fL] 7.7 fL (01/10/16 8:21 PM) Segs [45.0-75.0 %] 68.0 % (01/10/16 8:21 PM) Lymphocytes 21.5 % [20.0-40.0 %] (01/10/16 8:21 PM) Monocytes [2.0-12.0 6.9 % %] (01/10/16 8:21 PM) Eosinophils [0.0-4.0 2.5 % %] (01/10/16 8:21 PM) Basophils [0.0-1.0 1.1 % %] *HI* (01/10/16 8:21 PM) Segs-Bands # 7.3 K/CMM [1.5-8.1 K/CMM] (01/10/16 8:21 PM) Lymphocytes # 2.3 K/CMM [1.0-5.5 K/CMM] (01/10/16 8:21 PM) Monocytes # [0.0-0.8 0.7 K/CMM K/CMM] (01/10/16 8:21 PM) Eosinophils # 0.3 K/CMM [0.0-0.5 K/CMM] (01/10/16 8:21 PM) Basophils # [0.0-0.2 0.1 K/CMM K/CMM] (01/10/16 8:21 PM) Immunizations Given and Recorded Vaccine Date Status Refusal Reason influenza virus vaccine, inactivated 01/08/16 G iven pneumococcal 23-valent vaccine 01/08/16 Given Procedures Procedure Date Related Diagnosis Body Site Amputation1 section 12 toes in R foot Social History Social History Type Response Substance Abuse Use: None. 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
--- OUTSIDE RECORDS SUMMARY | 2019-09-10 20:13 | XMS REPORT | Summary of Care ---
Author Author [facility] Organization [facility] Address Unknown Phone Unavailable Encounter PRIMITIVO Mariano(SANGITA) [id number] Date(s): 05/31/16 - 05/31/16 [facility] [address] [employer] provided by [facility] [employer] [facility] [employer] [place] [address]- Discharge Disposition: Left Without Being Seen Attending Physician: Jed Henry MD Vital Signs Most recent to 1 oldest [Reference Range]: Height 167.64 cm (05/31/16 5:18 PM) Temperature Oral 98.4 DegF [96.4-99.1 DegF] (05/31/16 5:18 PM) Blood Pressure 181/105 mmHg [90-140/60-90 mmHg] *HI* (05/31/16 5:18 PM) Respiratory Rate 18 BRMIN [14-20 BRMIN] (05/31/16 5:18 PM) Peripheral Pulse 115 bpm Rate [60-100 bpm] *HI* (05/31/16 5:18 PM) Weight 118.182 kg (05/31/16 5:18 PM) Body Mass Index 42.05 m2 (05/31/16 5:18 PM) Problem List Condition Effective Dates Status Health Status Informan t CHF - Congestive Active heart failure(Confirmed) DM (diabetes Active mellitus)(Confirmed) HTN - Active Hypertension(Confirm ed) Klebsiella(Confirmed Active )1 MRSA(Confirmed)2, 3, 02/23/16 Active 4 Osteomyelitis(Confir Active med) 1Problem added by Discern Expert. 2right foot aspirate - 02/23/16 3nares - 02/19/16 4Problem added by Discern Expert. Allergies, Adverse Reactions, Alerts Substance Reaction Severity Status NKDA Active Medications No data available for this section Results No data available for this section Immunizations Given and Recorded Vaccine Date Status [...]
--- OUTSIDE RECORDS SUMMARY | 2019-09-10 20:13 | XMS REPORT | Summary of Care ---
Author Author [facility] Organization [facility] Address Unknown Phone Unavailable Encounter PRIMITIVO Mariano(SANGITA) [id number] Date(s): 05/17/16 - 05/18/16 [facility] [address] [employer] provided by [facility] [place] [address]- Discharge Disposition: Home or Self Care Attending Physician: Rashawn Ochoa MD Admitting Physician: Moriah Eric MD Vital Signs 1 2 3 Most recent to oldest [Reference Range]: 170.18 cm (05/17/16 4:02 AM) Height 98.6 DegF (05/18/16 12:26 PM) 101.5 DegF *HI* (05/18/16 11:32 AM) 98.3 DegF (05/18/16 7:24 AM) Temperature Oral [96.4-99.1 DegF] 104/69 mmHg (05/18/16 12:26 PM) 93/63 mmHg (05/18/16 11:32 AM) 133/84 mmHg (05/18/16 7:24 AM) Blood Pressure [90-140/60-90 mmHg] 18 BRMIN (05/18/16 11:32 AM) 18 BRMIN (05/18/16 7:24 AM) 18 BRMIN (05/18/16 3:41 AM) Respiratory Rate [14-20 BRMIN] 89 bpm (05/18/16 12:26 PM) 94 bpm (05/18/16 7:24 AM) 89 bpm (05/18/16 3:41 AM) Peripheral Pulse Rate [60-100 bpm] 107.727 kg (05/17/16 4:02 AM) Weight 37.2 m2 (05/17/16 4:02 AM) Body Mass Index Problem List Condition [...] Substance Reaction Severity Status NKDA Active Medications amLODIPine 10 mg, 1 tab, Route: PO, Drug form: TAB, Daily, Dosing Weight 107.727, kg, Start date: 05/17/16 9:00:00 [employer], Duration: 30 day, Stop date: 06/15/16 9:00:00 [employer]IG[employer] Notes: (Same as: Norvasc) Start Date: 05/17/16 Stop Date: 05/18/16 Status: Discontinued aspirin 325 mg tablet 325 mg, 1 tab, Route: PO, Drug form: TAB, ONCE, Dosing Weight 117.273, kg, Prior ity: STAT, Start date: 05/17/16 1:50:00 [employer], Stop date: 05/17/16 1:50:00 [employer]IGARETTE [employer] Notes: Take with food. Start Date: 05/17/16 Stop Date: 05/17/16 Status: Completed aspirin 81 mg tablet, enteric coated 81 mg, 1 tab, Route: PO, Drug form: ECTAB, Daily, Start date: 05/18/16 9:00:[address], Duration: 30 day, Stop date: 06/16/16 9:00:00 CIGARETTE PACKER Notes: Do not crush or chew.(Same As: Ecotrin) Start Date: 05/18/16 Stop Date: 05/18/16 Status: Discontinued atorvastatin 40 mg, 1 tab, Route: PO, Drug form: TAB, Bedtime, Dosing Weight 107.727, kg, Sta rt date: 05/17/16 21:00:00 CIGAR[employer], Duration: 30 day, Stop date: 06/15/16 21:00:[address] Notes: (Same as: Lipitor) Start Date: 05/17/16 Stop Date: 05/18/16 Status: Discontinued Bentyl 20 mg, 2 cap, Route: PO, Drug form: CAP, QID, Dosing Weight 107.727, kg, PRN Spa sm, Start date: 05/17/16 10:43:00 [employer]IGAR[employer]TE [employer], Duration: 30 day, Stop date: 06/16/16 10: 42:00 CIGARETTE P[employer]ER Notes: (Same as: Bentyl) Start Date: 05/17/16 Stop Date: 05/18/16 Status: Discontinued bisacodyl 10 mg, 2 tab, Route: WA, Drug form: ECTAB, Daily, Dosing Weight 107.727, kg, PRN Constipation, Start date: 05/17/16 4:37:00 CIGAR[employer]TE P[employer]ER, Duration: 30 day, Stop date: 4:36:00 CIGAR[employer]TE P[employer] Notes: (Same As: Dulcolax, Correctol) (Do Not Crush) "Do Not Crush" Start Date: 05/17/16 Stop Date: 05/18/16 Status: Discontinued Calmoseptine topical ointment 1 appl, Route: TOP, BID, Drug form: OINT, Start date: 05/17/16 9:00:00 CIGARETTE P[employer], Dura tion: 30 day, Stop date: 06/15/16 17:00:00 CIGARETTE P[employer]ER Notes: (Same as: Calmoseptine) Start Date: 05/17/16 Stop Date: 05/18/16 Status: Discontinued carvedilol 25 mg, 1 tab, Route: PO, Drug form: TAB, BID, Dosing Weight 107.727, kg, Start d ate: 05/17/16 9:00:00 CIGAR[employer]TE P[employer], Duration: 30 day, Stop date: 06/15/16 21:00:00 CIGARETTE P[employer]ER Notes: Give with food. (Same As: Coreg) Start Date: 05/17/16 Stop Date: 05/18/16 Status: Discontinued Dextrose 50% Syringe 12.5 gm, 25 mL, Route: IVP, Drug Form: INJ, Dosing Weight 107.727, kg, PRN, PRN Blood Glucose Results, Start date: 05/17/16 6:32:00 CIGARETTE [employer], Duration: 30 day, Stop date: 06/16/16 6:31:00 CIGARETTE P[employer]ER Start Date: 05/17/16 Stop Date: 05/18/16 Status: Discontinued Dextrose 50% Syringe 25 gm, 50 mL, Route: IVP, Drug Form: INJ, Dosing Weight 107.727, kg, PRN, PRN Bl ood Glucose Results, Start date: 05/17/16 6:32:00 CIGARETTE P[employer]ER, Duration: 30 day, Stop da te: 06/16/16 6:31:00 CIGAR[employer]TE P[employer] Start Date: 05/17/16 Stop Date: 05/18/16 Status: Discontinued diphenhydrAMINE 12.5 mg, 5 mL, Route: PO, Drug form: LIQ, Q6H, Dosing Weight 107.727, kg, PRN It yun, Start date: 05/17/16 4:37:00 CIGAR[employer]TE P[employer]ER, Duration: 30 day, Stop date: 06/16/16 4 :36:00 CIGARETTE PACKER Notes: (Same as: Benadryl) Start Date: 05/17/16 Stop Date: 05/18/16 Status: Discontinued docusate 100 mg, 1 cap, Route: PO, Drug form: CAP, BID, Dosing Weight 107.727, kg, Start date: 05/17/16 9:00:00 CIGAR[employer]TE P[employer], Duration: 30 day, Stop date: 06/15/16 17:00:00 CIGARETTE P[employer]ER Notes: (Same as: Colace) (Do Not Crush) Start Date: 05/17/16 Stop Date: 05/18/16 Status: Discontinued furosemide 20 mg oral tablet 20 mg, 1 tab, Route: PO, Drug form: TAB, BID, Dosing Weight 107.727, kg, Start d ate: 05/17/16 9:00:00 CIG[employer], Duration: 30 day, Stop date: 06/15/16 17:00:00 CIGARETTE P[employer]ER Notes: (Same as: Lasix) May cause GI upset. Give with food or milk. Start Date: 05/17/16 Stop Date: 05/18/16 Status: Discontinued gabapentin 300 mg oral capsule 300 mg, 1 cap, Route: PO, Drug form: CAP, Q12H, Dosing Weight 107.727, kg, Start date: 05/17/16 9:00:00 [employer], Duration: 30 day, Stop date: 06/15/16 21:00:00 [employer]IG[employer] P[employer] Notes: (Same as: Neurontin) Start Date: 05/17/16 Stop Date: 05/18/16 Status: Discontinued GI cocktail 30 mL, Route: PO, Drug Form: SUSP, Dosing Weight 117.273, kg, ONCE, STAT, Start date: 05/17/16 1:50:00 [employer]IG[employer], Stop date: 05/17/16 1:50:00 CIGARETTE P[employer]ER Notes: G.I. Cocktail = antacid with simethicone 22.5 mL - lidocaine viscous 7.5 mL Start Date: 05/17/16 Stop Date: 05/17/16 Status: Completed glucagon 1 mg, Route: IM, Drug form: PDR/INJ, PRN, Dosing Weight 107.727, kg, PRN Blood G lucose Results, Start date: 05/17/16 6:32:00 [employer]IG[employer], Duration: 30 day, Stop date: 0 06/16/16 6:31:00 CIGAR[employer]TE P[employer] Start Date: 05/17/16 Stop Date: 05/18/16 Status: Discontinued heparin 5,000 unit, 1 mL, Route: SUB-Q, Drug form: INJ, Q8H, Start date: 05/17/16 17:30: 00 [employer]IGARETTE P[employer]ER, Duration: 30 day, Stop date: 06/16/16 16:00:00 [employer]IGAR[employer]TE P[employer]ER Notes: porcine heparin Start Date: 05/17/16 Stop Date: 05/18/16 Status: Discontinued Heparin - one time bolus for DVT/PE 9,360 unit, 9.36 mL, Route: IVP, Drug form: INJ, ONCE, Dosing Weight 117.273, kg , Priority: STAT, Start date: 05/17/16 3:46:00 CIGAR[employer]TE P[employer], Stop date: 05/17/16 3:46:00 CIGARETTE P[employer]ER Start Date: 05/17/16 Stop Date: 05/17/16 Status: Completed Heparin 40 unit/kg Bolus (Heparin Dosing Weight) Route: IVP, PRN, 3,200 unit, 3.2 mL, Drug form: INJ, PRN, Heparin Protocol, Star t date: 05/17/16 3:46:00 CIGAR[employer]TE [employer] Stop date: 06/16/16 3:45:00 CIGARETTE P[employer]ER, 30 day Start Date: 05/17/16 Stop Date: 05/17/16 Status: Discontinued heparin 5000 units/mL injectable solution Route: SUB-Q, TID, Dosing Weight 107.727, kg, Start date: 05/17/16 17:00:00 CIGARETTE P[employer]ER, Duration: 30 day, Stop date: 06/16/16 13:00:00 CIGARETTE P[employer]ER Start Date: 05/17/16 Stop Date: 05/17/16 Status: Deleted Heparin 80 unit/kg Bolus (Heparin Dosing Weight) Route: IVP, PRN, 6,400 unit, 6.4 mL, Drug form: INJ, PRN, Heparin Protocol, Star t date: 05/17/16 3:46:00 CIGARETTE P[employer]ER Stop date: 06/16/16 3:45:00 CIGARETTE PACKER, 30 day Start Date: 05/17/16 Stop Date: 05/17/16 Status: Discontinued heparin additive 25,000 unit [18 unit/kg/hr] + Premix Diluent Dextrose 5% 500 mL 500 mL, Rate: 28.82 ml/hr, Infuse over: 17.3 hr, Route: IV, Dosing Weight 80.05 kg, Total Volume: 500 mL, Start date: 05/17/16 3:46:00 CIGARETTE P[employer]ER, Duration: 30 day, St op date: 06/16/16 3:45:00 CIGARETTE P[employer]ER Start Date: 05/17/16 Stop Date: 05/17/16 Status: Discontinued insulin aspart 3 unit, 0.03 mL, Route: SUB-Q, Drug form: SOLN, Bedtime, Dosing Weight 107.727, kg, PRN Blood Glucose Results, Start date: 05/17/16 6:32:00 CIGARETTE P[employer]ER, Duration: 30 da y, Stop date: 06/16/16 6:31:00 CIGARETTE PACKER Notes: Roll in palms of hands gently; Do not shake vigorously. (Same as: Jarrod Angulo)"single patient use only"WASTE: F/P - Black; E - Municipal Trash Bin Stable f or 28 days at room temperature.Expires in days from Date Start Date: 05/17/16 Stop Date: 05/18/16 Status: Discontinued insulin aspart 4 unit, 0.04 mL, Route: SUB-Q, Drug form: SOLN, Bedtime, Dosing Weight 107.727, kg, PRN Blood Glucose Results, Start date: 05/17/16 6:32:00 CIGARETTE P[employer]ER, Duration: 30 da y, Stop date: 06/16/16 6:31:00 CIGARETTE PACKER Notes: Roll in palms of hands gently; Do not shake vigorously. (Same as: Jrarod Angulo)"single patient use only"WASTE: F/P - Black; E - Municipal Trash Bin Stable f or 28 days at room temperature.Expires in days from Date Start Date: 05/17/16 Stop Date: 05/18/16 Status: Discontinued insulin aspart 10 unit, 0.1 mL, Route: SUB-Q, Drug form: SOLN, TID-Before Meals, Dosing Weight 107.727, kg, PRN Blood Glucose Results, Start date: 05/17/16 6:32:00 CIGARETTE P[employer]ER, Stop d ate: 06/16/16 6:31:00 CIGARETTE PACKER Notes: Roll in palms of hands gently; Do not shake vigorously. (Same as: Jarrod Angulo)"single patient use only"WASTE: F/P - Black; E - Municipal Trash Bin Stable f or 28 days at room temperature.Expires in days from Date Start Date: 05/17/16 Stop Date: 05/18/16 Status: Discontinued insulin aspart 8 unit, 0.08 mL, Route: SUB-Q, Drug form: SOLN, TID-Before Meals, Dosing Weight 107.727, kg, PRN Blood Glucose Results, Start date: 05/17/16 6:32:00 CIGARETTE PACKER, Durati on: 30 day, Stop date: 06/16/16 6:31:00 CIGARETTE PACKER Notes: Roll in palms of hands gently; Do not shake vigorously. (Same as: Jarrod Angulo)"single patient use only"WASTE: F/P - Black; E - Municipal Trash Bin Stable f or 28 days at room temperature.Expires in days from Date Start Date: 05/17/16 Stop Date: 05/18/16 Status: Discontinued insulin aspart 1 unit, 0.01 mL, Route: SUB-Q, Drug form: SOLN, Bedtime, Dosing Weight 107.727, kg, PRN Blood Glucose Results, Start date: 05/17/16 6:32:00 CIGARETTE P[employer]ER, Duration: 30 da y, Stop date: 06/16/16 6:31:00 CIGARETTE PACKER Notes: Roll in palms of hands gently; Do not shake vigorously. (Same as: Jarrod Angulo)"single patient use only"WASTE: F/P - Black; E - Municipal Trash Bin Stable f or 28 days at room temperature.Expires in days from Date Start Date: 05/17/16 Stop Date: 05/18/16 Status: Discontinued insulin aspart 2 unit, 0.02 mL, Route: SUB-Q, Drug form: SOLN, Bedtime, Dosing Weight 107.727, kg, PRN Blood Glucose Results, Start date: 05/17/16 6:32:00 CIGARETTE P[employer]ER, Duration: 30 da y, Stop date: 06/16/16 6:31:00 CIGARETTE PACKER Notes: Roll in palms of hands gently; Do not shake vigorously. (Same as: Jarrod Angulo)"single patient use only"WASTE: F/P - Black; E - Municipal Trash Bin Stable f or 28 days at room temperature.Expires in days from Date Start Date: 05/17/16 Stop Date: 05/18/16 Status: Discontinued insulin aspart 6 unit, 0.06 mL, Route: SUB-Q, Drug form: SOLN, TID-Before Meals, Dosing Weight 107.727, kg, PRN Blood Glucose Results, Start date: 05/17/16 6:32:00 CIGARETTE P[employer]ER, Durati on: 30 day, Stop date: 06/16/16 6:31:00 CIGARETTE PACKER Notes: Roll in palms of hands gently; Do not shake vigorously. (Same as: Jarrod Angulo)"single patient use only"WASTE: F/P - Black; E - Municipal Trash Bin Stable f or 28 days at room temperature.Expires in days from Date Start Date: 05/17/16 Stop Date: 05/18/16 Status: Discontinued insulin aspart 4 unit, 0.04 mL, Route: SUB-Q, Drug form: SOLN, TID-Before Meals, Dosing Weight 107.727, kg, PRN Blood Glucose Results, Start date: 05/17/16 6:32:00 CIGARETTE P[employer]ER, Durati on: 30 day, Stop date: 06/16/16 6:31:00 CIGARETTE PACKER Notes: Roll in palms of hands gently; Do not shake vigorously. (Same as: NovoDONG Angulo)"single patient use only"WASTE: F/P - Black; E - Municipal Trash Bin Stable f or 28 days at room temperature.Expires in days from Date Start Date: 05/17/16 Stop Date: 05/18/16 Status: Discontinued insulin aspart 2 unit, 0.02 mL, Route: SUB-Q, Drug form: SOLN, TID-Before Meals, Dosing Weight 107.727, kg, PRN Blood Glucose Results, Start date: 05/17/16 6:32:00 CIGARETTE PACKER, Durati on: 30 day, Stop date: 06/16/16 6:31:00 CIGARETTE PACKER Notes: Roll in palms of hands gently; Do not shake vigorously. (Same as: Jarrod Angulo)"single patient use only"WASTE: F/P - Black; E - Municipal Trash Bin Stable f or 28 days at room temperature.Expires in days from Date Start Date: 05/17/16 Stop Date: 05/18/16 Status: Discontinued Lasix 40 mg, 4 mL, Route: IVP, Drug form: INJ, ONCE, Dosing Weight 107.727, kg, Start date: 05/17/16 10:00:00 CIGARETTE P[employer]ER, Stop date: 05/17/16 10:00:00 CIGARETTE PACKER Notes: (Same as: Lasix) MEDICATION WASTE Product Size: 40 mgProduct Was savana: ___ mg Start Date: 05/17/16 Stop Date: 05/17/16 Status: Completed Lasix 40 mg, 4 mL, Route: IVP, Drug form: INJ, ONCE, Dosing Weight 107.727, kg, Start date: 05/17/16 6:34:00 CIGARETTE P[employer]ER, Stop date: 05/17/16 6:34:00 CIGARETTE PACKER Notes: (Same as: Lasix) MEDICATION WASTE Product Size: 40 mgProduct Was savana: ___ mg Start Date: 05/17/16 Stop Date: 05/17/16 Status: Discontinued Lidoderm 5% topical film (patch) 1 patch, Route: TOP, Q24H, Drug form: FILM, Start date: 05/17/16 5:00:00 CIGARETTE P[employer]ER, Du ration: 30 day, Stop date: 06/15/16 5:00:00 CIGARETTE PACKER Notes: Apply only once for up to 12 hours in q18-vsqf period (12 hours on and 12 hours off).(Same as: Lidoderm)"Remove old patch before application of new patch" Start Date: 05/17/16 Stop Date: 05/18/16 Status: Discontinued lisinopril 40 mg, 2 tab, Route: PO, Drug form: TAB, Daily, Dosing Weight 107.727, kg, Start date: 05/17/16 9:00:00 CIGARETTE P[employer]ER, Duration: 30 day, Stop date: 06/15/16 9:00:00 CIGARETTE PACKER Notes: (Same as: Prinivil, Zestril) Start Date: 05/17/16 Stop Date: 05/18/16 Status: Discontinued magnesium sulfate 2 gm, 50 mL, Route: IVPB, Drug form: INJ, ONCE, Dosing Weight 117.273, kg, Total dose = 2 gm, Start date: 05/17/16 2:38:00 CIGARETTE PACKER, Duration: 1 doses or times, Stop date: 05/17/16 2:38:00 CIGARETTE PACKER Notes: WASTE: F/P - Sink; E - Municipal Trash Bin Start Date: 05/17/16 Stop Date: 05/17/16 Status: Completed melatonin 3 mg, 1 tab, Route: PO, Drug form: TAB, Bedtime, Dosing Weight 107.727, kg, PRN Insomnia, Start date: 05/17/16 4:37:00 CIGARETTE PACKER, Duration: 30 day, Stop date: 7 4:36:00 CIGARETTE PACKER Notes: (Same as: Melatonin) Start Date: 05/17/16 Stop Date: 05/17/16 Status: Discontinued melatonin 3 mg, 1 tab, Route: PO, Drug form: TAB, Bedtime, Dosing Weight 107.727, kg, PRN Sleep, Start date: 05/17/16 6:30:00 CIGARETTE P[employer]ER, Duration: 30 day, Stop date: 06/16/16 6 :29:00 CIGARETTE PACKER Notes: (Same as: Melatonin) Start Date: 05/17/16 Stop Date: 05/18/16 Status: Discontinued methocarbamol 1,000 mg, 2 tab, Route: PO, Drug form: TAB, Q8H, Dosing Weight 107.727, kg, PRN Muscle Spasms, Start date: 05/17/16 4:37:00 CIGARETTE P[employer]ER, Duration: 30 day, Stop date: 4:36:00 CIGARETTE PACKER Notes: (Same as:Robaxin) Start Date: 05/17/16 Stop Date: 05/18/16 Status: Discontinued minocycline 100 mg, 1 cap, Route: PO, Drug form: CAP, [id number], Dosing Weight 107.727, kg, St art date: 05/17/16 10:00:00 CIGARETTE PACKER, Duration: 30 day, Stop date: 06/15/16 22:00:00 CIGARETTE PACKER Notes: (Same as:Minocin) No milk/antacids/iron. Start Date: 05/17/16 Stop Date: 05/17/16 Status: Discontinued minocycline 100 mg, 1 cap, Route: PO, Drug form: CAP, [id number], Dosing Weight 107.727, kg, St art date: 05/17/16 7:00:00 CIGARETTE P[employer]ER, Duration: 30 day, Stop date: 06/15/16 19:00:[address] Notes: (Same as:Minocin) No milk/antacids/iron. Start Date: 05/17/16 Stop Date: 05/17/16 Status: Discontinued minocycline 100 mg, 1 cap, Route: PO, Drug form: CAP, Daily, Dosing Weight 107.727, kg, Star t date: 05/18/16 9:00:00 CIGARETTE PACKER, Duration: 30 day, Stop date: 06/16/16 9:00:00 CIGARETTE PACKER Notes: (Same as:Minocin) No milk/antacids/iron. Start Date: 05/18/16 Stop Date: 05/18/16 Status: Discontinued morphine Sulfate 4 mg, 2 mL, Route: IVP, Drug form: INJ, ONCE, Dosing Weight 107.727, kg, Start d ate: 05/17/16 10:42:00 CIGARETTE P[employer]ER, Stop date: 05/17/16 10:42:00 CIGARETTE PACKER Notes: (Same as:MORPhine Sulfate) Start Date: 05/17/16 Stop Date: 05/17/16 Status: Completed morphine Sulfate 4 mg, Route: IVP, ONCE, Dosing Weight 107.727, kg, Start date: 05/17/16 4:48:00 CIGARETTE P[employer]ER, Stop date: 05/17/16 4:48:00 CIGARETTE PACKER Start Date: 05/17/16 Stop Date: 05/17/16 Status: Completed morphine Sulfate 4 mg, 1 mL, Route: IVP, Drug form: INJ, ONCE, Dosing Weight 117.273, kg, Priorit y: STAT, Start date: 05/17/16 2:14:00 CIGARETTE P[employer]ER, Stop date: 05/17/16 2:14:00 CIGARETTE PACKER Notes: (Same as:MORPhine Sulfate) Start Date: 05/17/16 Stop Date: 05/17/16 Status: Completed [place] 10/325 oral tablet 1 tab, Route: PO, Drug Form: TAB, Dosing Weight 107.727, kg, Q6H, PRN Pain Score 7-10, Start date: 05/17/16 4:36:00 CIGARETTE PACKER, Duration: 30 day, Stop date: 06/16/16 4 :35:00 CIGARETTE PACKER Notes: Do not exceed 4gm/day of acetaminophen. (Same as: [place] 325/10) Start Date: 05/17/16 Stop Date: 05/18/16 Status: Discontinued [place] 5/325 oral tablet 1 tab, Route: PO, Drug Form: TAB, Dosing Weight 107.727, kg, Q6H, PRN Pain Score 4-6, Start date: 05/17/16 4:36:00 CIGARETTE PACKER, Duration: 30 day, Stop date: 06/16/16 4: 35:00 CIGARETTE PACKER Notes: (Same as: [place] 325/5) Do not exceed 4gm/day of acetaminophen. Start Date: 05/17/16 Stop Date: 05/18/16 Status: Discontinued ondansetron 4 mg, 2 mL, Route: IVP, Drug form: INJ, Q6H, Dosing Weight 107.727, kg, PRN Naus ea & Vomiting, Start date: 05/17/16 4:37:00 CIGARETTE P[employer]ER, Duration: 30 day, Stop date: 06/16/16 4:36:00 CIGARETTE PACKER Notes: (Same as: Zofran) MEDICATION WASTE Product Size: 4 mgProduct Was savana: ___ mg Start Date: 05/17/16 Stop Date: 05/18/16 Status: Discontinued polyethylene glycol 3350 17 gm, 1 pkt, Route: PO, Drug form: PWDR, Daily, Dosing Weight 107.727, kg, Star t date: 05/17/16 9:00:00 CIGARETTE P[employer]ER, Duration: 30 day, Stop date: 06/15/16 9:00:00 CIGARETTE PACKER Notes: Dissolve in 8 oz of water or juice.(Same as: Miralax) Start Date: 05/17/16 Stop Date: 05/18/16 Status: Discontinued sertraline 50 mg, 1 tab, Route: PO, Drug form: TAB, Daily, Dosing Weight 107.727, kg, Start date: 05/17/16 9:00:00 CIGARETTE P[employer]ER, Duration: 30 day, Stop date: 06/15/16 9:00:00 CIGARETTE PACKER Notes: (Same as: Zoloft) Start Date: 05/17/16 Stop Date: 05/18/16 Status: Discontinued Tylenol 650 mg, 20.3 mL, Route: PO, Drug form: LIQ, Q4H, Dosing Weight 107.727, kg, PRN Pain 1-3/Temp > 100.4 F, Start date: 05/17/16 4:36:00 CIGARETTE P[employer]ER, Duration: 30 day, Stop date: 06/16/16 4:35:00 CIGARETTE PACKER Notes: Max acetaminophen = 4000mg/day (4 gm/day). (Same as: Tylenol) Start Date: 05/17/16 Stop Date: 05/18/16 Status: Discontinued Tylenol with Codeine #3 oral tablet 1 tab, PO, Q4H, PRN Pain, X 5 day, # 30 tab, 0 Refill(s) Start Date: 05/18/16 Stop Date: 05/23/16 Status: Ordered Ultram 50 mg oral tablet 50 mg, Route: PO, Drug form: TAB, Q4H, Dosing Weight 107.727, kg, PRN Pain Score 4-6, Start date: 05/17/16 10:42:00 CIGARETTE P[employer]ER, Duration: 30 day, Stop date: 06/16/16 1 0:41:00 CIGARETTE PACKER Start Date: 05/17/16 Stop Date: 05/17/16 Status: Deleted Zofran 4 mg, 2 mL, Route: IVP, Drug form: INJ, ONCE, Dosing Weight 117.273, kg, Priorit y: STAT, Start date: 05/17/16 1:50:00 CIGARETTE P[employer]ER, Stop date: 05/17/16 1:50:00 CIGARETTE PACKER Notes: (Same as: Luis) MEDICATION WASTE Product Size: 4 mgProduct Was savana: ___ mg Start Date: 05/17/16 Stop Date: 05/17/16 Status: Completed Results ELECTROLYTES Most recent to 1 2 oldest [Reference Range]: Sodium Lvl [135-145 141 mEq/L 142 mEq/L mEq/L] (05/18/16 5:12 AM) (05/17/16 1:56 AM) Potassium Lvl 4.7 mEq/L 4.3 mEq/L [3.5-5.1 mEq/L] (05/18/16 5:12 AM) (05/17/16 1:56 AM) Chloride Lvl [95-109 112 mEq/L 111 mEq/L mEq/L] *HI* *HI* (05/18/16 5:12 AM) (05/17/16 1:56 AM) CO2 [24-32 mEq/L] 20 mEq/L 18 mEq/L *LOW* *LOW* (05/18/16 5:12 AM) (05/17/16 1:56 AM) AGAP [10.0-20.0 13.7 mEq/L 17.3 mEq/L mEq/L] (05/18/16 5:12 AM) (05/17/16 1:56 AM) CHEM PANEL Most recent to 1 2 oldest [Reference Range]: Creatinine Lvl 2.40 mg/dL 2.09 mg/dL [0.50-1.40 mg/dL] *HI* *HI* (05/18/16 5:12 AM) (05/17/16 1:56 AM) eGFR 28 mL/min/1.73m2 1 33 mL/min/1.73m2 2 *NA* *NA* (05/18/16 5:12 AM) (05/17/16 1:56 AM) BUN [7-22 mg/dL] 23 mg/dL 19 mg/dL *HI* (05/17/16 1:56 AM) (05/18/16 5:12 AM) B/C Ratio [6-25] 9 (05/17/16 1:56 AM) Glucose Lvl [70-99 126 mg/dL 215 mg/dL mg/dL] *HI* *HI* (05/18/16 5:12 AM) (05/17/16 1:56 AM) Total Protein 6.0 g/dL [6.4-8.4 g/dL] *LOW* (05/17/16 1:56 AM) Albumin Lvl [3.5-5.0 1.2 g/dL g/dL] *LOW* (05/17/16 1:56 AM) Globulin [2.7-4.2 4.8 g/dL g/dL] *HI* (05/17/16 1:56 AM) A/G Ratio [0.7-1.6] 0.2 *LOW* (05/17/16 1:56 AM) Calcium Lvl 8.1 mg/dL 8.1 mg/dL [8.5-10.5 mg/dL] *LOW* *LOW* (05/18/16 5:12 AM) (05/17/16 1:56 AM) Phosphorus [2.5-4.5 4.0 mg/dL mg/dL] (05/17/16 1:56 AM) Magnesium Lvl 1.6 mg/dL [1.8-2.4 mg/dL] *LOW* (05/17/16 1:56 AM) ALT [0-65 unit/L] 6 unit/L (05/17/16 1:56 AM) AST [0-37 unit/L] 8 unit/L (05/17/16 1:56 AM) Alk Phos [39-136 136 unit/L unit/L] (05/17/16 1:56 AM) Bili Total [0.2-1.3 0.1 mg/dL mg/dL] *LOW* (05/17/16 1:56 AM) Lipase Lvl [73-393 140 unit/L unit/L] (05/17/16 1:56 AM) Lactic Acid WB 1.3 mmol/L [0.5-2.2 mmol/L] (05/17/16 1:56 AM) 1Result Comment: The eGFR is calculated [...] recent to 1 2 oldest [Reference Range]: Troponin-I 0.04 ng/mL [0.00-0.40 ng/mL] (05/17/16 1:56 AM) BNP [<=100 pg/mL] 1203 pg/mL *HI* (05/17/16 1:56 AM) HEMATOLOGY Most recent to 1 2 oldest [Reference Range]: WBC [3.7-10.4 K/CMM] 5.5 K/CMM 7.9 K/CMM (05/18/16 5:12 AM) (05/17/16 1:56 AM) RBC [4.20-5.40 3.79 M/CMM 3.61 M/CMM M/CMM] *LOW* *LOW* (05/18/16 5:12 AM) (05/17/16 1:56 AM) Hgb [12.0-16.0 g/dL] 10.5 g/dL 10.0 g/dL *LOW* *LOW* (05/18/16 5:12 AM) (05/17/16 1:56 AM) Hct [36.0-48.0 %] 33.1 % 30.9 % *LOW* *LOW* (05/18/16 5:12 AM) (05/17/16 1:56 AM) MCV [80.0-98.0 fL] 87.4 fL 85.5 fL (05/18/16 5:12 AM) (05/17/16 1:56 AM) MCH [27.0-31.0 pg] 27.8 pg 27.8 pg (05/18/16 5:12 AM) (05/17/16 1:56 AM) MCHC [32.0-36.0 31.8 g/dL 32.5 g/dL g/dL] *LOW* (05/17/16 1:56 AM) (05/18/16 5:12 AM) RDW [11.5-14.5 %] 17.3 % 16.8 % *HI* *HI* (05/18/16 5:12 AM) (05/17/16 1:56 AM) Platelet [133-450 335 K/CMM 389 K/CMM K/CMM] (05/18/16 5:12 AM) (05/17/16 1:56 AM) MPV [7.4-10.4 fL] 8.0 fL 7.8 fL (05/18/16 5:12 AM) (05/17/16 1:56 AM) Segs [45.0-75.0 %] 47.4 % 54.3 % (05/18/16 5:12 AM) (05/17/16 1:56 AM) Lymphocytes 43.1 % 36.0 % [20.0-40.0 %] *HI* (05/17/16 1:56 AM) (05/18/16 5:12 AM) Monocytes [2.0-12.0 5.2 % 6.0 % %] (05/18/16 5:12 AM) (05/17/16 1:56 AM) Eosinophils [0.0-4.0 3.2 % 2.5 % %] (05/18/16 5:12 AM) (05/17/16 1:56 AM) Basophils [0.0-1.0 1.1 % 1.2 % %] *HI* *HI* (05/18/16 5:12 AM) (05/17/16 1:56 AM) Segs-Bands # 2.6 K/CMM 4.3 K/CMM [1.5-8.1 K/CMM] (05/18/16 5:12 AM) (05/17/16 1:56 AM) Lymphocytes # 2.4 K/CMM 2.8 K/CMM [1.0-5.5 K/CMM] (05/18/16 5:12 AM) (05/17/16 1:56 AM) Monocytes # [0.0-0.8 0.3 K/CMM 0.5 K/CMM K/CMM] (05/18/16 5:12 AM) (05/17/16 1:56 AM) Eosinophils # 0.2 K/CMM 0.2 K/CMM [0.0-0.5 K/CMM] (05/18/16 5:12 AM) (05/17/16 1:56 AM) Basophils # [0.0-0.2 0.1 K/CMM 0.1 K/CMM K/CMM] (05/18/16 5:12 AM) (05/17/16 1:56 AM) PT [12.0-14.7 12.5 seconds seconds] (05/17/16 1:56 AM) INR [0.85-1.17] 0.91 (05/17/16 1:56 AM) D-Dimer 5.68 ug/mL FEU *NA* (05/17/16 1:56 AM) PTT [22.9-35.8 75.0 seconds 27.8 seconds seconds] *HI* (05/17/16 1:56 AM) (05/17/16 3:25 PM) Immunizations Given and Recorded Vaccine Date Status Refusal Reason influenza virus vaccine, inactivated 01/08/16 G iven pneumococcal 23-valent vaccine 01/08/16 Given Procedures Procedure Date Related Diagnosis Body Site Amputation1 section 12 toes in R foot Social History Social History Type Response Substance Abuse Use: None. Alcohol Never Smoking Status Never smoker; Exposure to T obacco Smoke None; Cigarette Smoking Last 365 Days No; Reg Smoking Cessation Counseli ng No Assessment and Plan Extracted from: Title: History and Physical Author: Graciela Marrero MD Date: 05/17/16 Assessment/Plan Mrs. Hernandez is a 40yo AA woman with PMHx of obesity, anxiety/depression, insomnia, chronic anemia, CKD stage III, HTN, HLD, T2DM poorly controlled, and CHF who presents with acute SOB, pleurisy, and tachycardia found to have elevated D-dimer. Concern for possible PE. 1.SOB (shortness of breath) + tachycar eleno + chest pain Pt with recent debilitated [...] to coumadin therapy pending VQ Scan results [facility] is primary for this patient, please page [phone] with questions.
--- OUTSIDE RECORDS SUMMARY | 2019-09-10 20:13 | XMS REPORT | Summary of Care ---
Author Author [facility] Organization [facility] Address Unknown Phone Unavailable Encounter PRIMITIVO Mariano(SANGITA) [id number] Date(s): 11/27/15 - 01/08/16 [facility] [address] [place] [address]- Discharge Disposition: Home or Self Care Attending Physician: eGe Arizmendi MD Admitting Physician: Gee Arizmendi MD Referring Physician: Gee Arizmendi MD Vital Signs 1 2 3 Most recent to oldest [Reference Range]: 170.18 cm (11/27/15 6:38 PM) Height 97.4 DegF (01/08/16 4:00 PM) 98.4 DegF (01/08/16 12:00 PM) 98.7 DegF (01/08/16 8:00 AM) Temperature Oral [96.4-99.1 DegF] 107/78 mmHg (01/08/16 4:00 PM) 100/68 mmHg (01/08/16 12:00 PM) 123/78 mmHg (01/08/16 8:00 AM) Blood Pressure [90-140/60-90 mmHg] 18 BRMIN (01/08/16 4:00 PM) 18 BRMIN (01/08/16 12:00 PM) 18 BRMIN (01/08/16 8:00 AM) Respiratory Rate [14-20 BRMIN] 94 bpm (01/08/16 4:00 PM) 91 bpm (01/08/16 12:00 PM) 92 bpm (01/08/16 8:00 AM) Peripheral Pulse Rate [60-100 bpm] 113.18 kg (12/13/15 9:00 AM) 113.18 kg (12/03/15 9:00 AM) 113.18 kg (12/02/15 9:00 AM) Weight 39.08 m2 (11/27/15 6:38 PM) Body Mass Index Problem List Condition Effective Dates Status Health Status Informan t CHF - Congestive Active heart failure(Confirmed) DM (diabetes Active mellitus)(Confirmed) HTN - Active Hypertension(Confirm ed) Neuropathy(Confirmed Active ) Allergies, Adverse Reactions, Alerts Substance Reaction Severity Status NKDA Active Medications acetaminophen 650 mg, 2 tab, Route: PO, Drug form: TAB, Q4H, Dosing Weight 113.182, kg, PRN Pa in 1-3/Temp > 100.4 F, Start date: 11/27/15 20:22:00 CDT, Duration: 30 day, Stop date: 01/26/16 20:21:00 CDT Notes: Do not exceed 4 gm/day. (Same as: Tylenol) Start Date: 11/27/15 Stop Date: 01/08/16 Status: Discontinued acetaminophen 325 mg oral tablet 650 mg, 2 tab, Route: PO, Drug form: TAB, Q6H, Dosing Weight 113.182, kg, PRN Pa in 1-3/Temp > 100.4 F, Start date: 11/27/15 20:18:00 CDT, Duration: 30 day, Stop date: 01/26/16 20:17:00 CDT Notes: Do not exceed 4 gm/day. (Same as: Tylenol) Start Date: 11/27/15 Stop Date: 01/08/16 Status: Discontinued acetaminophen-codeine 300 mg-30 mg oral tablet 2 tab, PO, Q4H, PRN Pain Score 4-6, X 7 day, # 84 tab, 0 Refill(s) Start Date: 01/08/16 Stop Date: 01/15/16 Status: Ordered acetaminophen-codeine 300 mg-30 mg oral tablet 2 tab, Route: PO, Drug Form: TAB, Q4H, PRN Pain Score 4-6, Start date: 11/27/15 21:13:00 CDT, Duration: 30 day, Stop date: 01/26/16 21:12:00 CDT Notes: Do not exceed 4gm/day of acetaminophen. (Same as: Tylenol with Codeine # 3) Start Date: 11/27/15 Stop Date: 01/08/16 Status: Discontinued acetaminophen-hydrocodone 325 mg-5 mg oral tablet 1 tab, Route: PO, Drug Form: TAB, Dosing Weight 113.182, kg, Q4H, PRN Pain Score 4-6, Start date: 11/27/15 20:22:00 CDT, Duration: 30 day, Stop date: 01/26/16 2 0:21:00 CDT Notes: (Same as: [place] 325/5) Do not exceed 4gm/day of acetaminophen. Start Date: 11/27/15 Stop Date: 01/08/16 Status: Discontinued albuterol-ipratropium 2.5-0.5 mg inhalation solution 3 ml, Route: NEB, Drug Form: SOLN, Dosing Weight 113.182, kg, RQ4H, Start date: 11/29/15 11:00:00 CDT, Duration: 30 day, Stop date: 12/29/15 7:00:00 CDT Notes: (Same as: Duoneb) Start Date: 11/29/15 Stop Date: 12/29/15 Status: Completed amLODIPine 10 mg, 1 tab, Route: PO, Drug form: TAB, Daily, Dosing Weight 113.182, kg, Start date: 11/28/15 9:00:00 CDT, Duration: 30 day, Stop date: 01/26/16 9:00:00 CDT Notes: (Same as: Norvasc) Start Date: 11/28/15 Stop Date: 01/08/16 Status: Discontinued amLODIPine 10 mg oral tablet 10 mg = 1 tab, PO, Daily, # 90 tab, 0 Refill(s) Start Date: 01/08/16 Stop Date: 04/07/16 Status: Ordered aspirin 81 mg tablet, enteric coated 81 mg, 1 tab, Route: PO, Drug form: ECTAB, Daily, Dosing Weight 113.182, kg, Sta rt date: 11/28/15 9:00:00 CDT, Duration: 30 day, Stop date: 01/26/16 9:00:00 CDT Notes: Do not crush or chew.(Same As: Ecotrin) Start Date: 11/28/15 Stop Date: 01/08/16 Status: Discontinued atorvastatin 40 mg, 1 tab, Route: PO, Drug form: TAB, Bedtime, Dosing Weight 113.182, kg, Sta rt date: 11/27/15 21:00:00 CDT, Duration: 30 day, Stop date: 01/25/16 21:00:00 C DT Notes: (Same as: Lipitor) Start Date: 11/27/15 Stop Date: 01/08/16 Status: Discontinued atorvastatin 40 mg oral tablet 40 mg = 1 tab, PO, Bedtime, # 90 tab, 0 Refill(s) Start Date: 01/08/16 Stop Date: 04/07/16 Status: Ordered BD Normal Saline Flush 10 mL, Route: IVP, Drug Form: INJ, PRN, PRN Line Flush, Start date: 12/07/15 13: 37:00 CDT, Duration: 30 day, Stop date: 01/06/16 13:36:00 CDT Notes: (Same as: BD Posiflush) Start Date: 12/07/15 Stop Date: 01/06/16 Status: Completed Calmoseptine topical ointment 1 appl, Route: TOP, BID, Drug form: OINT, Start date: 11/28/15 9:00:00 CDT, Dura tion: 30 day, Stop date: 01/26/16 17:00:00 CDT Notes: (Same as: Calmoseptine) Start Date: 11/28/15 Stop Date: 01/08/16 Status: Discontinued carvedilol 25 mg, 1 tab, Route: PO, Drug form: TAB, BID, Dosing Weight 113.182, kg, Start d ate: 11/28/15 9:00:00 CDT, Duration: 30 day, Stop date: 01/26/16 21:00:00 CDT Notes: Give with food. (Same As: Coreg) Start Date: 11/28/15 Stop Date: 01/08/16 Status: Discontinued carvedilol 25 mg oral tablet 25 mg = 1 tab, PO, BID, # 60 tab, 3 Refill(s) Start Date: 01/08/16 Stop Date: 05/07/16 Status: Ordered ceFAZolin 2 gm, 100 mL, Route: IVPB, Drug form: INJ, ABXQ8H, Dosing Weight 113.18, kg, Sta rt date: 12/29/15 20:00:00 CDT, Duration: 30 day, Stop date: 01/28/16 12:00:00 C DT Notes: Same as: Ancef Start Date: 12/29/15 Stop Date: 12/30/15 Status: Discontinued ceFAZolin + sodium chloride 0.9% INJ 100 mL 1 gm, Route: IVPB, Drug form: PDR/INJ, ABXQ8H, Dosing Weight 113.182, kg, Start date: 11/27/15 21:00:00 CDT, Duration: 30 day, Stop date: 01/26/16 13:00:00 CDT Notes: (Same As: Evelyne Demarco) MEDICATION WASTE Product Size: 1000 mgP roduct Wasted: ___ mg Start Date: 11/27/15 Stop Date: 12/29/15 Status: Discontinued Colace 100 mg oral capsule 100 mg, 1 cap, Route: PO, BID, Dosing Weight 113.18, kg, Start date: 12/22/15 9: 00:00 CDT, Duration: 30 day, Stop date: 01/20/16 17:00:00 CDT Start Date: 12/22/15 Stop Date: 12/21/15 Status: Deleted Colace 100 mg oral capsule 100 mg, 1 cap, Route: PO, Drug form: CAP, BID, Dosing Weight 113.182, kg, PRN Co nstipation, Start date: 11/27/15 20:22:00 CDT, Duration: 30 day, Stop date: 08/07 20:21:00 CDT Notes: (Same as: Colace) (Do Not Crush) Start Date: 11/27/15 Stop Date: 12/24/15 Status: Discontinued Dextrose 50% Syringe 12.5 gm, 25 mL, Route: IVP, Drug Form: INJ, Dosing Weight 113.182, kg, PRN, PRN Blood Glucose Results, Start date: 11/27/15 20:22:00 CDT, Duration: 30 day, Stop date: 12/27/15 20:21:00 CDT Start Date: 11/27/15 Stop Date: 11/27/15 Status: Discontinued Dextrose 50% Syringe 25 gm, 50 mL, Route: IVP, Drug Form: INJ, Dosing Weight 113.182, kg, PRN, PRN Bl ood Glucose Results, Start date: 11/27/15 20:22:00 CDT, Duration: 30 day, Stop d ate: 12/27/15 20:21:00 CDT Start Date: 11/27/15 Stop Date: 11/27/15 Status: Discontinued Dextrose 50% Syringe 25 gm, 50 mL, Route: IVP, Drug Form: INJ, Dosing Weight 113.182, kg, PRN, PRN Bl ood Glucose Results, Start date: 11/27/15 23:08:00 CDT, Duration: 30 day, Stop d ate: 01/26/16 23:07:00 CDT Start Date: 11/27/15 Stop Date: 01/08/16 Status: Discontinued Dextrose 50% Syringe 12.5 gm, 25 mL, Route: IVP, Drug Form: INJ, Dosing Weight 113.182, kg, PRN, PRN Blood Glucose Results, Start date: 11/27/15 23:08:00 CDT, Duration: 30 day, Stop date: 01/26/16 23:07:00 CDT Start Date: 11/27/15 Stop Date: 01/08/16 Status: Discontinued diphenhydrAMINE 25 mg, 1 cap, Route: PO, Drug form: CAP, Bedtime, Dosing Weight 113.182, kg, PRN Insomnia, Start date: 11/27/15 20:12:00 CDT, Duration: 30 day, Stop date: 01/25 20:11:00 CDT Notes: (Same as: Benadryl) Start Date: 11/27/15 Stop Date: 01/08/16 Status: Discontinued docusate sodium 100 mg oral capsule 100 mg, 1 cap, Route: PO, Drug form: CAP, BID, Dosing Weight 113.182, kg, Start date: 11/28/15 9:00:00 CDT, Duration: 30 day, Stop date: 01/26/16 17:00:00 CDT Notes: (Same as: Colace) (Do Not Crush) Start Date: 11/28/15 Stop Date: 12/24/15 Status: Discontinued Dulcolax Laxative 10 mg, 1 supp, Route: MI, Drug form: SUPP, ONCE, Dosing Weight 113.18, kg, Prior ity: NOW, Start date: 12/24/15 15:06:00 CDT, Stop date: 12/24/15 15:06:00 CDT Notes: (Same As: Dulcolax, Bisco-Lax) Start Date: 12/24/15 Stop Date: 12/24/15 Status: Completed DuoNeb inhalation solution 3 mL, Route: NEB, Drug Form: SOLN, RQ6H, PRN Shortness of breath, Start date: 11:56:00 CDT, Duration: 30 day, Stop date: 01/31/16 11:55:00 CDT Notes: (Same as: Duoneb) Start Date: 01/01/16 Stop Date: 01/08/16 Status: Discontinued famotidine 20 mg, 1 tab, Route: PO, Drug form: TAB, BID, Dosing Weight 113.182, kg, PRN Hea rtburn, Start date: 11/27/15 20:22:00 CDT, Duration: 30 day, Stop date: 01/26/16 20:21:00 CDT Notes: (Same as: Pepcid) Start Date: 11/27/15 Stop Date: 01/08/16 Status: Discontinued ferrous sulfate 325 mg, 1 tab, Route: PO, Drug form: TAB, BID, Dosing Weight 113.18, kg, Start d ate: 12/22/15 9:00:00 CDT, Duration: 30 day, Stop date: 01/20/16 17:00:00 CDT Notes: Give with food.iron elemental 45eq=850oj as ferrous sulfateDose=___mg marce mental iron Start Date: 12/22/15 Stop Date: 01/08/16 Status: Discontinued furosemide 20 mg oral tablet 20 mg = 1 tab, PO, BID, # 60 tab, 0 Refill(s) Start Date: 01/08/16 Stop Date: 02/07/16 Status: Ordered gabapentin 300 mg oral capsule 300 mg = 1 cap, PO, Q12H, # 60 cap, 3 Refill(s) Start Date: 01/08/16 Stop Date: 05/07/16 Status: Ordered gabapentin 300 mg oral capsule 300 mg, 1 cap, Route: PO, Drug form: CAP, Q12H, Dosing Weight 113.182, kg, Start date: 11/27/15 21:00:00 CDT, Duration: 30 day, Stop date: 01/26/16 9:00:00 CDT Notes: (Same as: Neurontin) Start Date: 11/27/15 Stop Date: 01/08/16 Status: Discontinued glucagon 1 mg, Route: IM, Drug form: PDR/INJ, PRN, Dosing Weight 113.182, kg, PRN Blood G lucose Results, Start date: 11/27/15 20:22:00 CDT, Duration: 30 day, Stop date: 12/27/15 20:21:00 CDT Start Date: 11/27/15 Stop Date: 11/27/15 Status: Discontinued glucagon 1 mg, Route: IM, Drug form: PDR/INJ, PRN, Dosing Weight 113.182, kg, PRN Blood G lucose Results, Start date: 11/27/15 23:08:00 CDT, Duration: 30 day, Stop date: 01/26/16 23:07:00 CDT Start Date: 11/27/15 Stop Date: 01/08/16 Status: Discontinued Haldol 2 mg, 0.4 mL, Route: IM, Drug form: INJ, Q8H, Start date: 12/25/15 9:00:00 CDT, Duration: 30 day, Stop date: 01/24/16 8:00:00 CDT Notes: (Same as: Haldol) Start Date: 12/25/15 Stop Date: 12/25/15 Status: Discontinued heparin 5,000 unit, 1 mL, Route: SUB-Q, Drug form: INJ, Q8H, Dosing Weight 113.182, kg, Start date: 11/28/15 0:00:00 CDT, Duration: 30 day, Stop date: 01/26/16 16:00:00 CDT Notes: porcine heparin Start Date: 11/28/15 Stop Date: 01/08/16 Status: Discontinued hydrALAZINE 20 mg, 1 mL, Route: IVP, Drug form: INJ, Q6H, Dosing Weight 113.182, kg, PRN Marce vated BP, Start date: 11/27/15 20:17:00 CDT, Duration: 30 day, Stop date: 20:16:00 CDT Notes: (Same as: Apresoline)Push over 5 minutes Start Date: 11/27/15 Stop Date: 01/08/16 Status: Discontinued hydrocortisone topical 1% cream 1 appl, Route: TOP, BID, Drug form: CRM, PRN Rash, Start date: 11/27/15 20:13:00 CDT, Duration: 30 day, Stop date: 01/26/16 20:12:00 CDT Start Date: 11/27/15 Stop Date: 01/08/16 Status: Discontinued hydrogen peroxide topical 1.5% solution 1 appl, Route: TOP, BID, Start date: 12/26/15 9:00:00 CDT, Duration: 30 day, Sto p date: 01/24/16 17:00:00 CDT Start Date: 12/26/15 Stop Date: 12/25/15 Status: Deleted hydrOXYzine 25 mg, 1 tab, Route: PO, Drug form: TAB, Daily, Dosing Weight 113.182, kg, PRN I nsomnia, Start date: 11/27/15 20:13:00 CDT, Duration: 30 day, Stop date: 6 20:12:00 CDT Notes: (Same as: Atarax) Avoid alcohol. Start Date: 11/27/15 Stop Date: 01/08/16 Status: Discontinued insulin aspart 10 unit, 0.1 mL, Route: SUB-Q, Drug form: SOLN, Bedtime, Dosing Weight 113.182, kg, PRN Blood Glucose Results, Start date: 11/27/15 20:22:00 CDT, Duration: 30 d ay, Stop date: 12/27/15 20:21:00 CDT Notes: Roll in palms of hands gently; Do not shake vigorously. (Same as: Jarrod Angulo)"single patient use only"WASTE: F/P - Black; E - Municipal Trash Bin Stable f or 28 days at room temperature.Expires in days from Date Start Date: 11/27/15 Stop Date: 11/27/15 Status: Discontinued insulin aspart 12 unit, 0.12 mL, Route: SUB-Q, Drug form: SOLN, TID-Before Meals, Dosing Weight 113.182, kg, PRN Blood Glucose Results, Start date: 11/27/15 20:22:00 CDT, Dura tion: 30 day, Stop date: 12/27/15 20:21:00 CDT Notes: Roll in palms of hands gently; Do not shake vigorously. (Same as: NovoDONG G)"single patient use only"WASTE: F/P - Black; E - [employer] Trash Bin Stable f or 28 days at room temperature.Expires in days from Date Start Date: 11/27/15 Stop Date: 11/27/15 Status: Discontinued insulin aspart 6 unit, 0.06 mL, Route: SUB-Q, Drug form: SOLN, TID-Before Meals, Dosing Weight 113.182, kg, PRN Blood Glucose Results, Start date: 11/27/15 20:22:00 CDT, Durat ion: 30 day, Stop date: 12/27/15 20:21:00 CDT Notes: Roll in palms of hands gently; Do not shake vigorously. (Same as: NovoDONG G)"single patient use only"WASTE: F/P - Black; E - [employer] Trash Bin Stable f or 28 days at room temperature.Expires in days from Date Start Date: 11/27/15 Stop Date: 11/27/15 Status: Discontinued insulin aspart 3 unit, 0.03 mL, Route: SUB-Q, Drug form: SOLN, TID-Before Meals, Dosing Weight 113.182, kg, PRN Blood Glucose Results, Start date: 11/27/15 20:22:00 CDT, Durat ion: 30 day, Stop date: 12/27/15 20:21:00 CDT Notes: Roll in palms of hands gently; Do not shake vigorously. (Same as: NovoDONG G)"single patient use only"WASTE: F/P - Black; E - [employer] Trash Bin Stable f or 28 days at room temperature.Expires in days from Date Start Date: 11/27/15 Stop Date: 11/27/15 Status: Discontinued insulin aspart 9 unit, 0.09 mL, Route: SUB-Q, Drug form: SOLN, TID-Before Meals, Dosing Weight 113.182, kg, PRN Blood Glucose Results, Start date: 11/27/15 20:22:00 CDT, Durat ion: 30 day, Stop date: 12/27/15 20:21:00 CDT Notes: Roll in palms of hands gently; Do not shake vigorously. (Same as: Jarrod Angulo)"single patient use only"WASTE: F/P - Black; E - Municipal Trash Bin Stable f or 28 days at room temperature.Expires in days from Date Start Date: 11/27/15 Stop Date: 11/27/15 Status: Discontinued insulin aspart 8 unit, 0.08 mL, Route: SUB-Q, Drug form: SOLN, Bedtime, Dosing Weight 113.182, kg, PRN Blood Glucose Results, Start date: 11/27/15 20:22:00 CDT, Duration: 30 d ay, Stop date: 12/27/15 20:21:00 CDT Notes: Roll in palms of hands gently; Do not shake vigorously. (Same as: Jarrod Angulo)"single patient use only"WASTE: F/P - Black; E - Municipal Trash Bin Stable f or 28 days at room temperature.Expires in days from Date Start Date: 11/27/15 Stop Date: 11/27/15 Status: Discontinued insulin aspart 4 unit, 0.04 mL, Route: SUB-Q, Drug form: SOLN, Bedtime, Dosing Weight 113.182, kg, PRN Blood Glucose Results, Start date: 11/27/15 20:22:00 CDT, Duration: 30 d ay, Stop date: 12/27/15 20:21:00 CDT Notes: Roll in palms of hands gently; Do not shake vigorously. (Same as: Jarrod Angulo)"single patient use only"WASTE: F/P - Black; E - [employer] Trash Bin Stable f or 28 days at room temperature.Expires in days from Date Start Date: 11/27/15 Stop Date: 11/27/15 Status: Discontinued insulin aspart 15 unit, 0.15 mL, Route: SUB-Q, Drug form: SOLN, TID-Before Meals, Dosing Weight 113.182, kg, PRN Blood Glucose Results, Start date: 11/27/15 20:22:00 CDT, Dura tion: 30 day, Stop date: 12/27/15 20:21:00 CDT Notes: Roll in palms of hands gently; Do not shake vigorously. (Same as: Jarrod Angulo)"single patient use only"WASTE: F/P - Black; E - Municipal Trash Bin Stable f or 28 days at room temperature.Expires in days from Date Start Date: 11/27/15 Stop Date: 11/27/15 Status: Discontinued insulin aspart 6 unit, 0.06 mL, Route: SUB-Q, Drug form: SOLN, Bedtime, Dosing Weight 113.182, kg, PRN Blood Glucose Results, Start date: 11/27/15 20:22:00 CDT, Duration: 30 d ay, Stop date: 12/27/15 20:21:00 CDT Notes: Roll in palms of hands gently; Do not shake vigorously. (Same as: Jarrod Angulo)"single patient use only"WASTE: F/P - Black; E - Municipal Trash Bin Stable f or 28 days at room temperature.Expires in days from Date Start Date: 11/27/15 Stop Date: 11/27/15 Status: Discontinued insulin aspart 3 unit, 0.03 mL, Route: SUB-Q, Drug form: SOLN, Bedtime, Dosing Weight 113.182, kg, PRN Blood Glucose Results, Start date: 11/27/15 23:08:00 CDT, Duration: 30 d ay, Stop date: 01/26/16 23:07:00 CDT Notes: Roll in palms of hands gently; Do not shake vigorously. (Same as: Jarrod Angulo)"single patient use only"WASTE: F/P - Black; E - Municipal Trash Bin Stable f or 28 days at room temperature.Expires in days from Date Start Date: 11/27/15 Stop Date: 01/08/16 Status: Discontinued insulin aspart 2 unit, 0.02 mL, Route: SUB-Q, Drug form: SOLN, Bedtime, Dosing Weight 113.182, kg, PRN Blood Glucose Results, Start date: 11/27/15 23:08:00 CDT, Duration: 30 d ay, Stop date: 01/26/16 23:07:00 CDT Notes: Roll in palms of hands gently; Do not shake vigorously. (Same as: Jarrod Angulo)"single patient use only"WASTE: F/P - Black; E - Municipal Trash Bin Stable f or 28 days at room temperature.Expires in days from Date Start Date: 11/27/15 Stop Date: 01/08/16 Status: Discontinued insulin aspart 1 unit, 0.01 mL, Route: SUB-Q, Drug form: SOLN, Bedtime, Dosing Weight 113.182, kg, PRN Blood Glucose Results, Start date: 11/27/15 23:08:00 CDT, Duration: 30 d ay, Stop date: 01/26/16 23:07:00 CDT Notes: Roll in palms of hands gently; Do not shake vigorously. (Same as: Jarrod Angulo)"single patient use only"WASTE: F/P - Black; E - Municipal Trash Bin Stable f or 28 days at room temperature.Expires in days from Date Start Date: 11/27/15 Stop Date: 01/08/16 Status: Discontinued insulin aspart 4 unit, 0.04 mL, Route: SUB-Q, Drug form: SOLN, Bedtime, Dosing Weight 113.182, kg, PRN Blood Glucose Results, Start date: 11/27/15 23:08:00 CDT, Duration: 30 d ay, Stop date: 01/26/16 23:07:00 CDT Notes: Roll in palms of hands gently; Do not shake vigorously. (Same as: Jarrod Angulo)"single patient use only"WASTE: F/P - Black; E - Municipal Trash Bin Stable f or 28 days at room temperature.Expires in days from Date Start Date: 11/27/15 Stop Date: 01/08/16 Status: Discontinued insulin aspart 4 unit, 0.04 mL, Route: SUB-Q, Drug form: SOLN, TID-Before Meals, Dosing Weight 113.182, kg, PRN Blood Glucose Results, Start date: 11/27/15 23:08:00 CDT, Durat ion: 30 day, Stop date: 01/26/16 23:07:00 CDT Notes: Roll in palms of hands gently; Do not shake vigorously. (Same as: Jarrod Angulo)"single patient use only"WASTE: F/P - Black; E - Municipal Trash Bin Stable f or 28 days at room temperature.Expires in days from Date Start Date: 11/27/15 Stop Date: 01/08/16 Status: Discontinued insulin aspart 3 unit, 0.03 mL, Route: SUB-Q, Drug form: SOLN, TID-Before Meals, Dosing Weight 113.182, kg, PRN Blood Glucose Results, Start date: 11/27/15 23:08:00 CDT, Durat ion: 30 day, Stop date: 01/26/16 23:07:00 CDT Notes: Roll in palms of hands gently; Do not shake vigorously. (Same as: Jarrod Angulo)"single patient use only"WASTE: F/P - Black; E - Municipal Trash Bin Stable f or 28 days at room temperature.Expires in days from Date Start Date: 11/27/15 Stop Date: 01/08/16 Status: Discontinued insulin aspart 2 unit, 0.02 mL, Route: SUB-Q, Drug form: SOLN, TID-Before Meals, Dosing Weight 113.182, kg, PRN Blood Glucose Results, Start date: 11/27/15 23:08:00 CDT, Durat ion: 30 day, Stop date: 01/26/16 23:07:00 CDT Notes: Roll in palms of hands gently; Do not shake vigorously. (Same as: Jarrod Angulo)"single patient use only"WASTE: F/P - Black; E - Municipal Trash Bin Stable f or 28 days at room temperature.Expires in days from Date Start Date: 11/27/15 Stop Date: 01/08/16 Status: Discontinued insulin aspart 1 unit, 0.01 mL, Route: SUB-Q, Drug form: SOLN, TID-Before Meals, Dosing Weight 113.182, kg, PRN Blood Glucose Results, Start date: 11/27/15 23:08:00 CDT, Durat ion: 30 day, Stop date: 01/26/16 23:07:00 CDT Notes: Roll in palms of hands gently; Do not shake vigorously. (Same as: Jarrod Angulo)"single patient use only"WASTE: F/P - Black; E - Municipal Trash Bin Stable f or 28 days at room temperature.Expires in days from Date Start Date: 11/27/15 Stop Date: 01/08/16 Status: Discontinued insulin aspart 5 unit, 0.05 mL, Route: SUB-Q, Drug form: SOLN, TID-Before Meals, Dosing Weight 113.182, kg, PRN Blood Glucose Results, Start date: 11/27/15 23:08:00 CDT, Durat ion: 30 day, Stop date: 01/26/16 23:07:00 CDT Notes: Roll in palms of hands gently; Do not shake vigorously. (Same as: Jarrod Angulo)"single patient use only"WASTE: F/P - Black; E - Municipal Trash Bin Stable f or 28 days at room temperature.Expires in days from Date Start Date: 11/27/15 Stop Date: 01/08/16 Status: Discontinued insulin aspart 10 unit, 0.1 mL, Route: SUB-Q, Drug form: SOLN, TID-Before Meals, Dosing Weight 113.182, kg, Start date: 11/28/15 7:30:00 CDT, Duration: 30 day, Stop date: 08/07 16:30:00 CDT Notes: Roll in palms of hands gently; Do not shake vigorously. (Same as: NovoDONG Angulo)"single patient use only"WASTE: F/P - Black; E - Municipal Trash Bin Stable f or 28 days at room temperature.Expires in days from Date Start Date: 11/28/15 Stop Date: 12/07/15 Status: Discontinued iron sulfate (ferrous sulfate) 325 mg oral tablet 325 mg = 1 tab, PO, BID, # 60 tab, 0 Refill(s) Start Date: 01/08/16 Stop Date: 02/07/16 Status: Ordered lactulose 20 gm, 30 ml, Route: PO, Drug Form: SYRP, Dosing Weight 113.18, kg, ONCE, STAT, Start date: 12/24/15 15:06:00 CDT, Stop date: 12/24/15 15:06:00 CDT Notes: (Same as:Chronulac) Start Date: 12/24/15 Stop Date: 12/24/15 Status: Completed lactulose 20 gm, 30 ml, Route: PO, Drug Form: SYRP, Dosing Weight 113.18, kg, Daily, PRN C onstipation, Start date: 12/26/15 12:30:00 CDT, Duration: 30 day, Stop date: 07/07 12:29:00 CDT Notes: (Same as:Chronulac) Start Date: 12/26/15 Stop Date: 01/08/16 Status: Discontinued Lasix 20 mg, 1 tab, Route: PO, Drug form: TAB, BID, Start date: 12/22/15 18:35:00 CDT, Duration: 30 day, Stop date: 01/21/16 17:00:00 CDT Notes: (Same as: Lasix) May cause GI upset. Give with food or milk. Start Date: 12/22/15 Stop Date: 01/08/16 Status: Discontinued Lasix 40 mg, 4 mL, Route: IV, Drug form: INJ, ONCE, Start date: 11/29/15 11:15:00 CDT, Stop date: 11/29/15 11:15:00 CDT Notes: (Same as: Lasix) MEDICATION WASTE Product Size: 40 mgProduct Was savana: ___ mg Start Date: 11/29/15 Stop Date: 11/29/15 Status: Completed Lasix 40 mg, 1 tab, Route: PO, Drug form: TAB, Daily, Dosing Weight 113.182, kg, Start date: 11/30/15 9:00:00 CDT, Duration: 30 day, Stop date: 12/29/15 9:00:00 CDT Notes: (Same as: Lasix) May cause GI upset. Give with food or milk. Start Date: 11/30/15 Stop Date: 12/08/15 Status: Discontinued Levemir 30 unit, 0.3 mL, Route: SUB-Q, Drug form: INJ, Daily, Dosing Weight 113.182, kg, Start date: 11/28/15 9:00:00 CDT, Duration: 30 day, Stop date: 01/26/16 9:00:00 CDT Notes: Same as LevemirDo not hold insulin without contacting prescriberWASTE: F/ P - Black; E - [employer] Trash Bin "single patient use only" Start Date: 11/28/15 Stop Date: 01/08/16 Status: Discontinued Levemir 100 units/mL 30 unit, SUB-Q, Daily, # 3 mL, 0 Refill(s) Start Date: 01/08/16 Status: Ordered lidocaine topical patch (5% film) 1 patch, TOP, Daily, # 30 patch, 0 Refill(s) Start Date: 01/08/16 Status: Ordered lidocaine topical patch (5% film) 1 patch, Route: TOP, Daily, Drug form: FILM, Start date: 11/28/15 9:00:00 CDT, D uration: 30 day, Stop date: 01/26/16 9:00:00 CDT Notes: Apply only once for up to 12 hours in [id number] period (12 hours on and 12 hours off).(Same as: Lidoderm)"Remove old patch before application of new patch" Start Date: 11/28/15 Stop Date: 01/08/16 Status: Discontinued lisinopril 10 mg, 1 tab, Route: PO, Drug form: TAB, Daily, Dosing Weight 113.18, kg, Start date: 12/06/15 9:00:00 CDT, Duration: 30 day, Stop date: 02/03/16 9:00:00 CDT Notes: (Same as: Prinivil, Zestril) Start Date: 12/06/15 Stop Date: 01/08/16 Status: Discontinued lisinopril 10 mg oral tablet 10 mg = 1 tab, PO, Daily, # 90 tab, 0 Refill(s) Start Date: 01/08/16 Stop Date: 04/07/16 Status: Ordered Maalox Advanced Regular Strength SUSP 30 mL, Route: PO, Drug Form: SUSP, Dosing Weight 113.182, kg, QID, PRN Indigesti on, Start date: 11/27/15 20:22:00 CDT, Duration: 30 day, Stop date: 01/26/16 20: 21:00 CDT Notes: (aluminum hydroxide-magnesium hyd-simethicone [phone]/5ml 30 ml ud S US) Start Date: 11/27/15 Stop Date: 01/08/16 Status: Discontinued magnesium oxide 400 mg, 1 tab, Route: PO, Drug form: TAB, BID, Dosing Weight 113.18, kg, x 2 day s, Start date: 12/27/15 17:00:00 CDT, Duration: 30 day, Stop date: 01/26/16 9:00 :00 CDT Notes: (Same as: Mag-Ox 400)Magnesium oxide [id number] elemental magnesiumDose= ____mg magnesium oxide (___mg elemental magnesium) Start Date: 12/27/15 Stop Date: 01/08/16 Status: Discontinued magnesium sulfate 2 gm, 50 mL, Route: IVPB, Drug form: INJ, ONCE, Dosing Weight 113.18, kg, Total dose = 2 gm, Start date: 12/30/15 14:13:00 CDT, Duration: 1 doses or times, Stop date: 12/30/15 14:13:00 CDT Notes: WASTE: F/P - Sink; E - Municipal Trash Bin Start Date: 12/30/15 Stop Date: 12/30/15 Status: Completed melatonin 3 mg, 1 tab, Route: PO, Drug form: TAB, Bedtime, Dosing Weight 113.182, kg, PRN Sleep, Start date: 11/27/15 20:15:00 CDT, Duration: 30 day, Stop date: 01/26/16 20:14:00 CDT Notes: (Same as: Melatonin) Start Date: 11/27/15 Stop Date: 01/08/16 Status: Discontinued methocarbamol 1,000 mg, 2 tab, Route: PO, Drug form: TAB, TID, Dosing Weight 113.182, kg, Star t date: 11/28/15 9:00:00 CDT, Duration: 30 day, Stop date: 01/26/16 17:00:00 CDT Notes: (Same as:Robaxin) Start Date: 11/28/15 Stop Date: 01/08/16 Status: Discontinued methocarbamol 500 mg oral tablet 1,000 mg = 2 tab, PO, TID, X 7 day, # 42 tab, 0 Refill(s) Start Date: 01/08/16 Stop Date: 01/15/16 Status: Ordered methylPREDNISolone SODium SUCCinate 125 mg, 2 mL, Route: IVP, Drug form: INJ, ONCE, Dosing Weight 113.182, kg, Prior ity: STAT, Start date: 11/29/15 9:21:00 CDT, Stop date: 11/29/15 9:21:00 CDT Notes: (Same as:Solu-MEDROL, A-Methapred) Start Date: 11/29/15 Stop Date: 11/29/15 Status: Completed minocycline 100 mg, 1 cap, Route: PO, Drug form: CAP, [id number], Dosing Weight 113.18, kg, Bessie ority: NOW, Start date: 01/01/16 15:03:00 CDT, Duration: 14 day, Stop date: 12/24 06/09 15:03:00 CDT Notes: (Same as:Minocin) No milk/antacids/iron. Start Date: 01/01/16 Stop Date: 01/08/16 Status: Discontinued minocycline 100 mg oral capsule 100 mg = 1 cap, PO, [id number], X 8 day, # 8 cap, 0 Refill(s) Start Date: 01/08/16 Stop Date: 01/16/16 Status: Ordered MiraLax 17 gm, 1 pkt, Route: PO, Drug form: PWDR, Daily, Dosing Weight 113.18, kg, Start date: 12/25/15 9:00:00 CDT, Duration: 30 day, Stop date: 01/23/16 9:00:00 CDT Notes: Dissolve in 8 oz of water or juice.(Same as: Miralax) Start Date: 12/25/15 Stop Date: 01/08/16 Status: Discontinued morphine Sulfate 2 mg, 1 mL, Route: IVP, Drug form: INJ, Q3H, Dosing Weight 113.182, kg, PRN Pain Score 7-10, Start date: 11/27/15 20:22:00 CDT, Duration: 30 day, Stop date: 08/07 20:21:00 CDT Notes: (Same as:MORPhine Sulfate) Start Date: 11/27/15 Stop Date: 01/05/16 Status: Discontinued morphine Sulfate 2 mg, 1 mL, Route: IVP, Drug form: INJ, Q6H, Dosing Weight 113.182, kg, PRN Pain Score 7-10, Start date: 01/05/16 13:46:00 CDT, Duration: 30 day, Stop date: 13:45:00 CDT Notes: (Same as:MORPhine Sulfate) Start Date: 01/05/16 Stop Date: 01/08/16 Status: Discontinued [place] 5/325 oral tablet 1 tab, Stop date: 12/25/15 12:00:00 CDT Notes: (Same as: [place] 325/5) Do not exceed 4gm/day of acetaminophen. Start Date: 12/25/15 Stop Date: 12/25/15 Status: Completed NovoLOG FlexPen 6 unit, 0.06 mL, Route: SUB-Q, Drug form: SOLN, TID-Before Meals, Dosing Weight 113.182, kg, Start date: 01/03/16 16:30:00 CDT, Duration: 30 day, Stop date: 03/09 11:30:00 CDT Notes: Roll in palms of hands gently; Do not shake vigorously. (Same as: NovoLO G)"single patient use only"WASTE: F/P - Black; E - Municipal Trash Bin Stable f or 28 days at room temperature.Expires in days from Date Start Date: 01/03/16 Stop Date: 01/08/16 Status: Discontinued NovoLOG FlexPen 4 unit, 0.04 mL, Route: SUB-Q, Drug form: SOLN, TID-Before Meals, Dosing Weight 113.182, kg, Start date: 12/07/15 16:30:00 CDT, Duration: 30 day, Stop date: 11:30:00 CDT Notes: Roll in palms of hands gently; Do not shake vigorously. (Same as: Jarrod Angulo)"single patient use only"WASTE: F/P - Black; E - Municipal Trash Bin Stable f or 28 days at room temperature.Expires in days from Date Start Date: 12/07/15 Stop Date: 01/03/16 Status: Discontinued NovoLOG FlexPen 100 units/mL subcutaneous solution 10 unit, SUB-Q, TID-Before Meals, # 3 mL, 0 Refill(s) Start Date: 01/08/16 Status: Ordered ondansetron 4 mg, 2 mL, Route: IVP, Drug form: INJ, Q4H, Dosing Weight 113.182, kg, PRN Naus ea & Vomiting, Start date: 11/27/15 20:22:00 CDT, Duration: 30 day, Stop date: 01/26/16 20:21:00 CDT Notes: (Same as: Luis) MEDICATION WASTE Product Size: 4 mgProduct Was asvana: ___ mg Start Date: 11/27/15 Stop Date: 01/08/16 Status: Discontinued remove patch 1 patch, Route: TOP, Bedtime, Drug form: ERFILM, Start date: 11/28/15 21:00:00 C DT, Duration: 30 day, Stop date: 12/27/15 21:00:00 CDT Notes: Remove patch 12 hours after application each day. Start Date: 11/28/15 Stop Date: 12/27/15 Status: Completed senna 17.2 mg, 2 tab, Route: PO, Drug Form: TAB, Dosing Weight 113.18, kg, BID, Start date: 12/24/15 17:00:00 CDT, Duration: 30 day, Stop date: 01/23/16 9:00:00 CDT Notes: (Same as: Lloyd) Start Date: 12/24/15 Stop Date: 01/08/16 Status: Discontinued sertraline 50 mg, 1 tab, Route: PO, Drug form: TAB, Daily, Dosing Weight 113.182, kg, Start date: 11/28/15 9:00:00 CDT, Duration: 30 day, Stop date: 01/26/16 9:00:00 CDT Notes: (Same as: Luz) Start Date: 11/28/15 Stop Date: 01/08/16 Status: Discontinued sertraline 50 mg oral tablet 50 mg = 1 tab, PO, Daily, # 30 tab, 0 Refill(s) Start Date: 01/08/16 Stop Date: 02/07/16 Status: Ordered sodium chloride 0.9% 1000 ml INJ 1,000 mL 1,000 mL, Rate: 75 ml/hr, Infuse over: 13.3 hr, Route: IV, Dosing Weight 113.18 kg, Total Volume: 1,000, Start date: 12/06/15 16:49:00 CDT, Duration: 30 day, St op date: 01/05/16 16:48:00 CDT Start Date: 12/06/15 Stop Date: 12/28/15 Status: Discontinued Sodium Chloride 0.9% IV 250 mL, Route: IVPB, Start date: 12/07/15 13:37:00 CDT, Duration: 30 day, Stop d ate: 01/06/16 13:36:00 CDT, PRN Line Flush Start Date: 12/07/15 Stop Date: 01/06/16 Status: Completed trazodone 50 mg, 1 tab, Route: PO, Drug form: TAB, Bedtime, Dosing Weight 113.182, kg, PRN Insomnia, Start date: 11/27/15 20:22:00 CDT, Duration: 30 day, Stop date: 01/25 20:21:00 CDT Notes: (Same As: Sybil) Start Date: 11/27/15 Stop Date: 01/08/16 Status: Discontinued trazodone 50 mg oral tablet 150 mg, 3 tab, Route: PO, Drug form: TAB, Bedtime, Dosing Weight 113.182, kg, MI N Insomnia, Start date: 11/27/15 20:16:00 CDT, Duration: 30 day, Stop date: 08/07 20:15:00 CDT Notes: (Same As: Desyrel) Start Date: 11/27/15 Stop Date: 01/08/16 Status: Discontinued trolamine salicylate topical 10% cream 1 appl, Route: TOP, TID, Drug form: CRM, PRN Pain Score 1-3, Start date: 6 20:16:00 CDT, Duration: 30 day, Stop date: 01/26/16 20:15:00 CDT Notes: (Same As: Aspercreme, Myoflex) Start Date: 11/27/15 Stop Date: 01/08/16 Status: Discontinued Tylenol with Codeine #3 oral tablet 1 tab, Route: PO, Drug Form: TAB, Dosing Weight 113.182, kg, Q4H, PRN Pain Score 1-3, Start date: 11/27/15 20:12:00 CDT, Duration: 30 day, Stop date: 01/26/16 2 0:11:00 CDT Notes: Do not exceed 4gm/day of acetaminophen. (Same as: Tylenol with Codeine # 3) Start Date: 11/27/15 Stop Date: 01/08/16 Status: Discontinued Ultram 50 mg oral tablet 100 mg = 2 tab, PO, Q6H, X 7 day, # 56 tab, 0 Refill(s) Start Date: 01/08/16 Stop Date: 01/15/16 Status: Ordered Ultram 50 mg oral tablet 100 mg, 2 tab, Route: PO, Drug form: TAB, Q6H, Dosing Weight 113.182, kg, Start date: 11/28/15 0:00:00 CDT, Duration: 30 day, Stop date: 01/26/16 18:00:00 CDT Notes: Not to exceed 400mg/day. (Same As: Ultram) Start Date: 11/28/15 Stop Date: 12/25/15 Status: Discontinued Xanax 0.5 mg oral tablet 0.5 mg = 1 tab, PO, TID, PRN Anxiety, X 7 day, # 21 tab, 0 Refill(s) Start Date: 01/08/16 Stop Date: 01/15/16 Status: Ordered Xanax 0.5 mg oral tablet 0.5 mg, 2 tab, Route: PO, Drug form: TAB, TID, Dosing Weight 113.182, kg, PRN An xiety, Start date: 11/27/15 20:12:00 CDT, Duration: 30 day, Stop date: 12/27/15 20:11:00 CDT Notes: With food or milk(Same as: Xanax) Start Date: 11/27/15 Stop Date: 12/01/15 Status: Discontinued Xanax 0.5 mg oral tablet 0.5 mg, 2 tab, Route: PO, Drug form: TAB, BID, Dosing Weight 113.182, kg, PRN An xiety, Start date: 12/01/15 19:41:00 CDT, Duration: 30 day, Stop date: 01/30/16 19:40:00 CDT Notes: With food or milk(Same as: Xanax) Start Date: 12/01/15 Stop Date: 01/08/16 Status: Discontinued Results ELECTROLYTES 1 2 3 Most recent to oldest [Reference Range]: 141 mEq/L (12/29/15 5:46 AM) 141 mEq/L (12/25/15 12:34 PM) 141 mEq/L (12/21/15 6:52 AM) Sodium Lvl [135-145 mEq/L] 4.0 mEq/L (12/29/15 5:46 AM) 4.1 mEq/L (12/25/15 12:34 PM) 4.6 mEq/L (12/21/15 6:52 AM) Potassium Lvl [3.5-5.1 mEq/L] 109 mEq/L (12/29/15 5:46 AM) 109 mEq/L (12/25/15 12:34 PM) 110 mEq/L *HI* (12/21/15 6:52 AM) Chloride Lvl [95-109 mEq/L] 24 mEq/L (12/29/15 5:46 AM) 26 mEq/L (12/25/15 12:34 PM) 23 mEq/L *LOW* (12/21/15 6:52 AM) CO2 [24-32 mEq/L] 12.0 mEq/L (12/29/15 5:46 AM) 10.1 mEq/L (12/25/15 12:34 PM) 12.6 mEq/L (12/21/15 6:52 AM) AGAP [10.0-20.0 mEq/L] CHEM PANEL 1 2 3 Most recent to oldest [Reference Range]: 1.40 mg/dL (12/29/15 5:46 AM) 1.60 mg/dL *HI* (12/25/15 12:34 PM) 1.60 mg/dL *HI* (12/21/15 6:52 AM) Creatinine Lvl [0.50-1.40 mg/dL] 53 mL/min/1.73m2 1 *NA* (12/29/15 5:46 AM) 45 mL/min/1.73m2 2 *NA* (12/25/15 12:34 PM) 45 mL/min/1.73m2 3 *NA* (12/21/15 6:52 AM) eGFR 12 mg/dL (12/29/15 5:46 AM) 15 mg/dL (12/25/15 12:34 PM) 18 mg/dL (12/21/15 6:52 AM) BUN [7-22 mg/dL] 10 (11/28/15 5:20 AM) B/C Ratio [6-25] 105 mg/dL *HI* (12/29/15 5:46 AM) 212 mg/dL *HI* (12/25/15 12:34 PM) 110 mg/dL *HI* (12/21/15 6:52 AM) Glucose Lvl [70-99 mg/dL] 7.3 g/dL (11/28/15 5:20 AM) Total Protein [6.4-8.4 g/dL] 1.7 g/dL *LOW* (12/09/15 5:32 AM) 1.6 g/dL *LOW* (11/28/15 5:20 AM) Albumin Lvl [3.5-5.0 g/dL] 5.7 g/dL *HI* (11/28/15 5:20 AM) Globulin [2.7-4.2 g/dL] 0.3 *LOW* (11/28/15 5:20 AM) A/G Ratio [0.7-1.6] 8.7 mg/dL (12/29/15 5:46 AM) 8.3 mg/dL *LOW* (12/25/15 12:34 PM) 9.1 mg/dL (12/21/15 6:52 AM) Calcium Lvl [8.5-10.5 mg/dL] 4.0 mg/dL (12/09/15 5:32 AM) Phosphorus [2.5-4.5 mg/dL] 1.6 mg/dL *LOW* (12/29/15 5:46 AM) 1.5 mg/dL *LOW* (12/27/15 6:48 AM) 1.7 mg/dL *LOW* (11/28/15 5:20 AM) Magnesium Lvl [1.8-2.4 mg/dL] 10 unit/L (11/28/15 5:20 AM) ALT [0-65 unit/L] 20 unit/L (11/28/15 5:20 AM) AST [0-37 unit/L] 151 unit/L *HI* (11/28/15 5:20 AM) Alk Phos [39-136 unit/L] 0.1 mg/dL *LOW* (11/28/15 5:20 AM) Bili Total [0.2-1.3 mg/dL] 1Result Comment: [...] 3 Most recent to oldest [Reference Range]: 37 ug/dl (12/29/15 5:46 AM) Iron [30-160 ug/dl] 147 ng/mL (12/29/15 5:46 AM) Ferritin Lvl [5-204 ng/mL] 36 % (12/29/15 5:46 AM) % Satur Fe [12-57 %] 67 ug/dl *LOW* (12/29/15 5:46 AM) UIBC [110-370 ug/dl] 104 ug/dl *LOW* (12/29/15 5:46 AM) TIBC [228-428 ug/dl] URINE AND STOOL 1 2 3 Most recent to oldest [Reference Range]: Clear (12/30/15 7:56 PM) UA Turbidity [Clear] Yellow (12/30/15 7:56 PM) UA Color [Yellow] 6.5 *NA* (12/30/15 7:56 PM) UA pH [5.0-8.0] 1.020 *NA* (12/30/15 7:56 PM) UA Spec Grav [<=1.030] 100 mg/dL *ABN* (12/30/15 7:56 PM) UA Glucose [Negative mg/dL] Small *ABN* (12/30/15 7:56 PM) UA Blood [Negative] Negative (12/30/15 7:56 PM) UA Ketones [Negative] >=300 mg/dL *NA* (12/30/15 7:56 PM) UA Protein 0.2 mg/dL *NA* (12/30/15 7:56 PM) UA Urobilinogen [0.1-1.0 mg/dL] Negative (12/30/15 7:56 PM) UA Bili [Negative] Negative (12/30/15 7:56 PM) UA Leuk Est [Negative] Negative (12/30/15 7:56 PM) UA Nitrite [Negative] 0-2 /HPF (12/30/15 7:56 PM) UA WBC [0-5 /HPF] 0-2 /HPF (12/30/15 7:56 PM) UA RBC [0-2 /HPF] Few /HPF (12/30/15 7:56 PM) UA Bacteria [None Seen /HPF] Few /LPF (12/30/15 7:56 PM) UA Sq Epi [Few /LPF] Few /LPF (12/30/15 7:56 PM) UA Mucus [None Seen /LPF] IMMUNOLOGY 1 2 3 Most recent to oldest [Reference Range]: 88.6 mg/L *NA* (12/31/15 5:46 AM) CRP, High Sensitivity HEMATOLOGY 1 2 3 Most recent to oldest [Reference Range]: 8.6 K/CMM (12/31/15 5:46 AM) 9.0 K/CMM (12/29/15 5:46 AM) 8.2 K/CMM (12/21/15 6:52 AM) WBC [3.7-10.4 K/CMM] 3.39 M/CMM *LOW* (12/31/15 5:46 AM) 3.50 M/CMM *LOW* (12/29/15 5:46 AM) 3.29 M/CMM *LOW* (12/21/15 6:52 AM) RBC [4.20-5.40 M/CMM] 9.3 g/dL *LOW* (12/31/15 5:46 AM) 9.5 g/dL *LOW* (12/29/15 5:46 AM) 9.1 g/dL *LOW* (12/21/15 6:52 AM) Hgb [12.0-16.0 g/dL] 29.9 % *LOW* (12/31/15 5:46 AM) 30.3 % *LOW* (12/29/15 5:46 AM) 28.7 % *LOW* (12/21/15 6:52 AM) Hct [36.0-48.0 %] 88.1 fL (12/31/15 5:46 AM) 86.5 fL (12/29/15 5:46 AM) 87.1 fL (12/21/15 6:52 AM) MCV [80.0-98.0 fL] 27.5 pg (12/31/15 5:46 AM) 27.2 pg (12/29/15 5:46 AM) 27.6 pg (12/21/15 6:52 AM) MCH [27.0-31.0 pg] 31.2 g/dL *LOW* (12/31/15 5:46 AM) 31.4 g/dL *LOW* (12/29/15 5:46 AM) 31.7 g/dL *LOW* (12/21/15 6:52 AM) MCHC [32.0-36.0 g/dL] 16.5 % *HI* (12/31/15 5:46 AM) 16.5 % *HI* (12/29/15 5:46 AM) 16.3 % *HI* (12/21/15 6:52 AM) RDW [11.5-14.5 %] 315 K/CMM (12/31/15 5:46 AM) 375 K/CMM (12/29/15 5:46 AM) 361 K/CMM (12/21/15 6:52 AM) Platelet [133-450 K/CMM] 8.1 fL (12/31/15 5:46 AM) 8.0 fL (12/29/15 5:46 AM) 8.1 fL (12/21/15 6:52 AM) MPV [7.4-10.4 fL] 58.4 % (12/31/15 5:46 AM) 56.5 % (12/29/15 5:46 AM) 57.4 % (12/21/15 6:52 AM) Segs [45.0-75.0 %] 29.6 % (12/31/15 5:46 AM) 30.3 % (12/29/15 5:46 AM) 29.4 % (12/21/15 6:52 AM) Lymphocytes [20.0-40.0 %] 8.0 % (12/31/15 5:46 AM) 8.7 % (12/29/15 5:46 AM) 7.2 % (12/21/15 6:52 AM) Monocytes [2.0-12.0 %] 3.7 % (12/31/15 5:46 AM) 3.9 % (12/29/15 5:46 AM) 5.2 % *HI* (12/21/15 6:52 AM) Eosinophils [0.0-4.0 %] 0.3 % (12/31/15 5:46 AM) 0.6 % (12/29/15 5:46 AM) 0.8 % (12/21/15 6:52 AM) Basophils [0.0-1.0 %] 5.0 K/CMM (12/31/15 5:46 AM) 5.1 K/CMM (12/29/15 5:46 AM) 4.7 K/CMM (12/21/15 6:52 AM) Segs-Bands # [1.5-8.1 K/CMM] 2.5 K/CMM (12/31/15 5:46 AM) 2.7 K/CMM (12/29/15 5:46 AM) 2.4 K/CMM (12/21/15 6:52 AM) Lymphocytes # [1.0-5.5 K/CMM] 0.7 K/CMM (12/31/15 5:46 AM) 0.8 K/CMM (12/29/15 5:46 AM) 0.6 K/CMM (12/21/15 6:52 AM) Monocytes # [0.0-0.8 K/CMM] 0.3 K/CMM (12/31/15 5:46 AM) 0.3 K/CMM (12/29/15 5:46 AM) 0.4 K/CMM (12/21/15 6:52 AM) Eosinophils # [0.0-0.5 K/CMM] 0.0 K/CMM (12/31/15 5:46 AM) 0.1 K/CMM (12/29/15 5:46 AM) 0.1 K/CMM (12/21/15 6:52 AM) Basophils # [0.0-0.2 K/CMM] 41.7 seconds *HI* (11/28/15 5:20 AM) PTT [22.9-35.8 seconds] Immunizations Given and [...]
--- OUTSIDE RECORDS SUMMARY | 2019-09-10 20:13 | XMS REPORT | Summary of Care ---
Author Author [facility] Organization [facility] Address Unknown Phone Unavailable Encounter PRIMITIVO Mariano(SANGITA) [id number] Date(s): 05/27/16 - 05/27/16 [facility] [address] [employer] provided by [facility] [employer] [facility] [place] [address]- Discharge Diagnosis: Leg pain, right Discharge Disposition: Home or Self Care Attending Physician: Jed Henry MD Vital Signs 1 2 3 Most recent to oldest [Reference Range]: 170.18 cm (05/27/16 3:40 AM) Height 97.9 DegF (05/27/16 6:18 AM) 98.3 DegF (05/27/16 3:40 AM) Temperature Oral [96.4-99.1 DegF] 168/101 mmHg *HI* (05/27/16 7:11 AM) 149/79 mmHg *HI* (05/27/16 6:18 AM) 148/85 mmHg *HI* (05/27/16 4:32 AM) Blood Pressure [90-140/60-90 mmHg] 18 BRMIN (05/27/16 3:40 AM) Respiratory Rate [14-20 BRMIN] 121 bpm *HI* (05/27/16 3:40 AM) Peripheral Pulse Rate [60-100 bpm] 112.727 kg (05/27/16 3:40 AM) Weight 38.92 m2 (05/27/16 3:40 AM) Body Mass Index Problem List Condition [...] form: TAB, ONCE, Dosing Weight 112.727, kg, Start date: 05/27/16 4:27:00 AUTOMATIC SPOOLER OPERATOR, Stop date: 05/27/16 4:27:00 AUTOMATIC SPOOLER OPERATOR Notes: Give with food. (Same As: Coreg) Start Date: 05/27/16 Stop Date: 05/27/16 Status: Discontinued Dilaudid 0.5 mg, Route: IVP, ONCE, Dosing Weight 112.727, kg, Priority: STAT, Start date: 05/27/16 4:37:00 AUTOMATIC SPOOLER OPERATOR, Stop date: 05/27/16 4:37:00 AUTOMATIC SPOOLER OPERATOR Start Date: 05/27/16 Stop Date: 05/27/16 Status: Discontinued Dilaudid 0.5 mg, Route: IVP, ONCE, Dosing Weight 112.727, kg, Priority: STAT, Start date: 05/27/16 6:27:00 AUTOMATIC SPOOLER OPERATOR, Stop date: 05/27/16 6:27:00 AUTOMATIC SPOOLER OPERATOR Start Date: 05/27/16 Stop Date: 05/27/16 Status: Discontinued GI cocktail 30 mL, Route: PO, Drug Form: SUSP, Dosing Weight 112.727, kg, ONCE, STAT, Start date: 05/27/16 3:57:00 AUTOMATIC SPOOLER OPERATOR, Stop date: 05/27/16 3:57:00 AUTOMATIC SPOOLER OPERATOR Notes: G.I. Cocktail = antacid with simethicone 22.5 mL - lidocaine viscous 7.5 mL Start Date: 05/27/16 Stop Date: 05/27/16 Status: Completed hydromorphone 1 mg, 0.5 mL, Route: IVP, Drug form: INJ, ONCE, Dosing Weight 112.727, kg, Prior ity: STAT, Start date: 05/27/16 3:56:00 AUTOMATIC SPOOLER OPERATOR, Stop date: 05/27/16 3:56:00 AUTOMATIC SPOOLER OPERATOR Notes: Same as Dilaudid Start Date: 05/27/16 Stop Date: 05/27/16 Status: Completed hydromorphone 1 mg, Route: IVP, ONCE, Dosing Weight 112.727, kg, Priority: STAT, Start date: 0 05/27/16 6:17:00 AUTOMATIC SPOOLER OPERATOR, Stop date: 05/27/16 6:17:00 AUTOMATIC SPOOLER OPERATOR Start Date: 05/27/16 Stop Date: 05/27/16 Status: Completed lisinopril 20 mg, 1 tab, Route: PO, Drug form: TAB, ONCE, Dosing Weight 112.727, kg, Priori ty: STAT, Start date: 05/27/16 4:26:00 AUTOMATIC SPOOLER OPERATOR, Stop date: 05/27/16 4:26:00 AUTOMATIC SPOOLER OPERATOR Notes: (Same as: Prinivil, Zestril) Start Date: 05/27/16 Stop Date: 05/27/16 Status: Discontinued [place] 10/325 oral tablet 1 tab, Route: PO, Drug Form: TAB, Dosing Weight 112.727, kg, ONCE, STAT, Start d ate: 05/27/16 4:36:00 AUTOMATIC SPOOLER OPERATOR, Stop date: 05/27/16 4:36:00 AUTOMATIC SPOOLER OPERATOR Start Date: 05/27/16 Stop Date: 05/27/16 Status: Discontinued [place] 10/325 oral tablet 1 tab, Route: PO, Drug Form: TAB, Dosing Weight 112.727, kg, ONCE, STAT, Start d ate: 05/27/16 6:27:00 AUTOMATIC SPOOLER OPERATOR, Stop date: 05/27/16 6:27:00 AUTOMATIC SPOOLER OPERATOR Start Date: 05/27/16 Stop Date: 05/27/16 Status: Discontinued NS (Bolus) IV 500 mL, 500 ml/hr, Infuse Over: 1 hr, Route: IV, ONCE, Priority: STAT, Dosing We ight 112.727 kg, Start date: 05/27/16 6:17:00 AUTOMATIC SPOOLER OPERATOR, Duration: 1 doses or times, S top date: 05/27/16 6:17:00 AUTOMATIC SPOOLER OPERATOR Start Date: 05/27/16 Stop Date: 05/27/16 Status: Completed Tylenol with Codeine #3 oral tablet 1 - 2 tab, PO, Q6H, PRN Pain, X 3 day, # 30 tab, 0 Refill(s) Start Date: 05/27/16 Stop Date: 05/30/16 Status: Ordered Results ELECTROLYTES Most recent to 1 oldest [Reference Range]: Sodium Lvl [135-145 136 mEq/L mEq/L] (05/27/16 3:58 AM) Potassium Lvl 4.6 mEq/L [3.5-5.1 mEq/L] (05/27/16 3:58 AM) Chloride Lvl [95-109 107 mEq/L mEq/L] (05/27/16 3:58 AM) CO2 [24-32 mEq/L] 17 mEq/L *LOW* (05/27/16 3:58 AM) AGAP [10.0-20.0 16.6 mEq/L mEq/L] (05/27/16 3:58 AM) CHEM PANEL Most recent to 1 oldest [Reference Range]: Creatinine Lvl 2.57 mg/dL [0.50-1.40 mg/dL] *HI* (05/27/16 3:58 AM) eGFR 26 mL/min/1.73m2 1 *NA* (05/27/16 3:58 AM) BUN [7-22 mg/dL] 24 mg/dL *HI* (05/27/16 3:58 AM) Glucose Lvl [70-99 198 mg/dL mg/dL] *HI* (05/27/16 3:58 AM) Calcium Lvl 8.0 mg/dL [8.5-10.5 mg/dL] *LOW* (05/27/16 3:58 AM) 1Result Comment: The eGFR is calculated [...] recent to 1 oldest [Reference Range]: Troponin-I 0.02 ng/mL [0.00-0.40 ng/mL] (05/27/16 3:58 AM) HEMATOLOGY Most recent to 1 oldest [Reference Range]: WBC [3.7-10.4 K/CMM] 7.8 K/CMM (05/27/16 3:58 AM) RBC [4.20-5.40 3.42 M/CMM M/CMM] *LOW* (05/27/16 3:58 AM) Hgb [12.0-16.0 g/dL] 9.6 g/dL *LOW* (05/27/16 3:58 AM) Hct [36.0-48.0 %] 29.5 % *LOW* (05/27/16 3:58 AM) MCV [80.0-98.0 fL] 86.2 fL (05/27/16 3:58 AM) MCH [27.0-31.0 pg] 27.9 pg (05/27/16 3:58 AM) MCHC [32.0-36.0 32.4 g/dL g/dL] (05/27/16 3:58 AM) RDW [11.5-14.5 %] 16.5 % *HI* (05/27/16 3:58 AM) Platelet [133-450 337 K/CMM K/CMM] (05/27/16 3:58 AM) MPV [7.4-10.4 fL] 8.0 fL (05/27/16 3:58 AM) Segs [45.0-75.0 %] 51.8 % (05/27/16 3:58 AM) Lymphocytes 38.7 % [20.0-40.0 %] (05/27/16 3:58 AM) Monocytes [2.0-12.0 5.8 % %] (05/27/16 3:58 AM) Eosinophils [0.0-4.0 2.6 % %] (05/27/16 3:58 AM) Basophils [0.0-1.0 1.1 % %] *HI* (05/27/16 3:58 AM) Segs-Bands # 4.0 K/CMM [1.5-8.1 K/CMM] (05/27/16 3:58 AM) Lymphocytes # 3.0 K/CMM [1.0-5.5 K/CMM] (05/27/16 3:58 AM) Monocytes # [0.0-0.8 0.5 K/CMM K/CMM] (05/27/16 3:58 AM) Eosinophils # 0.2 K/CMM [0.0-0.5 K/CMM] (05/27/16 3:58 AM) Basophils # [0.0-0.2 0.1 K/CMM K/CMM] (05/27/16 3:58 AM) Immunizations Given and Recorded Vaccine Date [...]
--- OUTSIDE RECORDS SUMMARY | 2019-09-10 20:13 | XMS REPORT | Summary of Care ---
Author Author [facility] Organization [facility] Address Unknown Phone Unavailable Encounter PRIMITIVO Mariano(SANGITA) [id number] Date(s): 11/01/15 - 11/27/15 [facility] [id number] [facility] provided by [facility] [place] [address]- Discharge Disposition: [facility] Attending Physician: Darrion Davis MD Admitting Physician: Farnaz Peacock MD Vital Signs 1 2 3 Most recent to oldest [Reference Range]: 170.18 cm (11/02/15 1:59 PM) 170.18 cm (11/02/15 4:19 AM) 170.18 cm (11/01/15 7:52 PM) Height 99.3 DegF *HI* (11/27/15 11:25 AM) 98.2 DegF (11/27/15 7:45 AM) 98.5 DegF (11/27/15 5:30 AM) Temperature Oral [96.4-99.1 DegF] 133/87 mmHg (11/27/15 11:25 AM) 148/90 mmHg *HI* (11/27/15 7:45 AM) 136/85 mmHg (11/27/15 5:30 AM) Blood Pressure [90-140/60-90 mmHg] 18 BRMIN (11/27/15 11:25 AM) 20 BRMIN (11/27/15 7:45 AM) 18 BRMIN (11/27/15 5:30 AM) Respiratory Rate [14-20 BRMIN] 94 bpm (11/27/15 11:25 AM) 97 bpm (11/27/15 7:45 AM) 98 bpm (11/27/15 5:30 AM) Peripheral Pulse Rate [60-100 bpm] 120.455 kg (11/02/15 1:59 PM) 117.273 kg (11/02/15 4:19 AM) 117.273 kg (11/01/15 7:52 PM) Weight 41.59 m2 (11/02/15 1:59 PM) 40.49 m2 (11/01/15 7:52 PM) Body Mass Index Problem List Condition Effective Dates Status Health Status Informan t CHF - Congestive Active heart failure(Confirmed) DM (diabetes Active mellitus)(Confirmed) HTN - Active Hypertension(Confirm ed) Neuropathy(Confirmed Active ) Allergies, Adverse Reactions, Alerts Substance Reaction Severity Status NKDA Active Medications acetaminophen 650 mg, 2 tab, Route: PO, Drug form: TAB, Q4H, Dosing Weight 117.273, kg, PRN Pa in 1-3/Temp > 100.4 F, Start date: 11/02/15 4:08:00 CDT, Duration: 30 day, Stop date: 12/02/15 4:07:00 CDT Notes: Do not exceed 4 gm/day. (Same as: Tylenol) Start Date: 11/02/15 Stop Date: 11/06/15 Status: Discontinued acetaminophen 325 mg, 1 tab, Route: PO, Drug form: TAB, Q4H, Dosing Weight 117.273, kg, PRN Pa in Score 4-6, Start date: 11/02/15 4:08:00 CDT, Duration: 30 day, Stop date: 02/06 4:07:00 CDT Notes: Do not exceed 4 gm/day. (Same as: Tylenol) Start Date: 11/02/15 Stop Date: 11/06/15 Status: Discontinued acetaminophen 650 mg, 2 tab, Route: PO, Drug form: TAB, ONCE, Dosing Weight 117.273, kg, Start date: 11/01/15 20:32:00 CDT, Stop date: 11/01/15 20:32:00 CDT Notes: Do not exceed 4 gm/day. (Same as: Tylenol) Start Date: 11/01/15 Stop Date: 11/01/15 Status: Completed acetaminophen 325 mg oral tablet 325 mg = 1 tab, PO, Q6H, PRN Pain 1-3/Temp > 100.4 F, 0 Refill(s) Start Date: 11/27/15 Status: Suspended acetaminophen-hydrocodone 325 mg-5 mg oral tablet 1 tab, Route: PO, Drug Form: TAB, Dosing Weight 117.273, kg, ONCE, STAT, Start d ate: 11/02/15 3:00:00 CDT, Stop date: 11/02/15 3:00:00 CDT Start Date: 11/02/15 Stop Date: 11/02/15 Status: Discontinued acetaminophen-hydrocodone 325 mg-5 mg oral tablet 1 tab, Route: PO, Drug Form: TAB, Dosing Weight 117.273, kg, Q4H, PRN Pain Score 4-6, Start date: 11/02/15 4:08:00 CDT, Duration: 30 day, Stop date: 12/02/15 4: 07:00 CDT Notes: (Same as: [place] 325/5) Do not exceed 4gm/day of acetaminophen. Start Date: 11/02/15 Stop Date: 11/27/15 Status: Discontinued acetaminophen-hydrocodone 325 mg-5 mg oral tablet 2 tab, Route: PO, Drug Form: TAB, Dosing Weight 117.273, kg, Q4H, PRN Pain Score 7-10, Start date: 11/02/15 4:08:00 CDT, Duration: 30 day, Stop date: 12/02/15 4 :07:00 CDT Notes: (Same as: [place] 325/5) Do not exceed 4gm/day of acetaminophen. Start Date: 11/02/15 Stop Date: 11/27/15 Status: Discontinued alteplase 2 mg, 2 mL, Route: INJ, Drug form: INJ, ONCE, Dosing Weight 120.455, kg, Start d ate: 11/19/15 10:45:00 CDT, Stop date: 11/19/15 10:45:00 CDT Notes: "Syringe for catheter clearance or interventional radiology use.[place] each vial of Cathflo Activase with 2.2 ml Sterile Water resulting in a 1 mg/ ml solution. Stable for 8 hours only. (Same as: Activase) MEDICATION WASTE * Product Size: 2 mgProduct Wasted: ___ mg Start Date: 11/19/15 Stop Date: 11/19/15 Status: Ordered alteplase 2 mg, 2 mL, Route: INJ, Drug form: INJ, ONCE, Dosing Weight 120.455, kg, Start d ate: 11/19/15 10:46:00 CDT, Stop date: 11/19/15 10:46:00 CDT Notes: "Syringe for catheter clearance or interventional radiology use.[place] each vial of Cathflo Activase with 2.2 ml Sterile Water resulting in a 1 mg/ ml solution. Stable for 8 hours only. (Same as: Activase) MEDICATION WASTE * Product Size: 2 mgProduct Wasted: ___ mg Start Date: 11/19/15 Stop Date: 11/19/15 Status: Ordered amLODIPine 10 mg, 1 tab, Route: PO, Drug form: TAB, Daily, Dosing Weight 120.455, kg, Start date: 11/03/15 10:00:00 CDT, Duration: 30 day, Stop date: 01/02/16 9:00:00 CDT Notes: (Same as: Bernie) Start Date: 11/03/15 Stop Date: 11/27/15 Status: Discontinued amLODIPine 10 mg, 1 tab, Route: PO, Drug form: TAB, Daily, Dosing Weight 117.273, kg, Start date: 11/02/15 9:00:00 CDT, Duration: 30 day, Stop date: 12/01/15 9:00:00 CDT Notes: (Same as: Bernie) Start Date: 11/02/15 Stop Date: 11/02/15 Status: Canceled amLODIPine 10 mg oral tablet 10 mg = 1 tab, PO, Daily, # 90 tab, 0 Refill(s) Start Date: 11/02/15 Status: Suspended Ancef 1 gm, Route: IVPB, Drug form: PDR/INJ, ABXQ8H, Dosing Weight 120.455, kg, Start date: 11/08/15 15:00:00 CDT, Duration: 30 day, Stop date: 12/08/15 8:00:00 CDT Notes: (Same As: AncefJanfzol) MEDICATION WASTE Product Size: 1000 mgP roduct Wasted: ___ mg Start Date: 11/08/15 Stop Date: 11/27/15 Status: Discontinued ANES flumazenil 0.2 mg, Route: IVP, PRN, Dosing Weight 120.455, kg, PRN Benzodiazepine Reversal, Initial dose, Start date: 11/05/15 17:27:00 CDT, Duration: 30 day, Stop date: 0 12/05/15 17:26:00 CDT Start Date: 11/05/15 Stop Date: 11/05/15 Status: Discontinued ANES HYDROmorphone 0.5 mg, Route: IVP, Q5Min, Dosing Weight 120.455, kg, PRN Pain Score 7-10, Start date: 11/05/15 17:27:00 CDT, Duration: 4 doses or times, Stop date: Limited # of times Start Date: 11/05/15 Stop Date: 11/05/15 Status: Discontinued ANES labetalol 10 mg, Route: IVP, Q5Min, Dosing Weight 120.455, kg, PRN Elevated BP, Start date : 11/05/15 17:27:00 CDT, Duration: 5 doses or times, Stop date: Limited # of satnam es Start Date: 11/05/15 Stop Date: 11/05/15 Status: Discontinued ANES naloxone 0.4 mg, Route: IVP, Q2MIN, Dosing Weight 120.455, kg, PRN Narcotic Reversal, Sta rt date: 11/05/15 17:27:00 CDT, Duration: 8 doses or times, Stop date: Limited # of times Start Date: 11/05/15 Stop Date: 11/05/15 Status: Discontinued ANES ondansetron 4 mg, Route: IVP, ONCE, Dosing Weight 120.455, kg, PRN Nausea & Vomiting, Start date: 11/05/15 17:27:00 CDT Start Date: 11/05/15 Stop Date: 11/05/15 Status: Discontinued aspirin 81 mg tablet, enteric coated 81 mg, 1 tab, Route: PO, Drug form: ECTAB, Daily, Dosing Weight 117.273, kg, Sta rt date: 11/02/15 9:00:00 CDT, Duration: 30 day, Stop date: 12/31/15 9:00:00 CDT Notes: Do not crush or chew.(Same As: Ecotrin) Start Date: 11/02/15 Stop Date: 11/27/15 Status: Discontinued aspirin 81 mg tablet, enteric coated 81 mg = 1 tab, PO, Daily, # 90 tab, 3 Refill(s) Start Date: 11/02/15 Status: Suspended atorvastatin 40 mg, 1 tab, Route: PO, Drug form: TAB, Bedtime, Dosing Weight 117.273, kg, Sta rt date: 11/02/15 21:00:00 CDT, Duration: 30 day, Stop date: 12/01/15 21:00:00 C DT Notes: (Same as: Lipitor) Start Date: 11/02/15 Stop Date: 11/27/15 Status: Discontinued atorvastatin 40 mg oral tablet 40 mg = 1 tab, PO, Bedtime, 0 Refill(s) Start Date: 11/27/15 Status: Suspended Benadryl 25 mg, 1 cap, Route: PO, Drug form: CAP, Bedtime, Dosing Weight 120.455, kg, PRN Insomnia, Priority: NOW, Start date: 11/05/15 23:59:00 CDT, Duration: 30 day, S top date: 12/05/15 23:58:00 CDT Notes: (Same as: Benadryl) Start Date: 11/05/15 Stop Date: 11/27/15 Status: Discontinued Calmoseptine topical ointment 1 appl, Route: TOP, BID, Drug form: OINT, Start date: 11/18/15 17:00:00 CDT, Dur ation: 30 day, Stop date: 12/18/15 9:00:00 CDT Notes: (Same as: Calmoseptine) Start Date: 11/18/15 Stop Date: 11/27/15 Status: Discontinued Calmoseptine topical ointment 1 appl, TOP, BID, 0 Refill(s) Start Date: 11/27/15 Status: Suspended carvedilol 12.5 mg, 1 tab, Route: PO, Drug form: TAB, Q12H, Dosing Weight 120.455, kg, Star t date: 11/03/15 10:00:00 CDT, Duration: 30 day, Stop date: 12/03/15 9:00:00 CDT Notes: Give with food. (Same As: Coreg) Start Date: 11/03/15 Stop Date: 11/05/15 Status: Discontinued carvedilol 25 mg, 1 tab, Route: PO, Drug form: TAB, BID, Dosing Weight 117.273, kg, Start d ate: 11/02/15 9:00:00 CDT, Duration: 30 day, Stop date: 12/01/15 17:00:00 CDT Notes: Give with food. (Same As: Coreg) Start Date: 11/02/15 Stop Date: 11/02/15 Status: Canceled carvedilol 25 mg, 1 tab, Route: PO, Drug form: TAB, Q12H, Dosing Weight 120.455, kg, Start date: 11/05/15 21:00:00 CDT, Duration: 30 day, Stop date: 12/05/15 9:00:00 CDT Notes: Give with food. (Same As: Coreg) Start Date: 11/05/15 Stop Date: 11/27/15 Status: Discontinued carvedilol 25 mg oral tablet 25 mg = 1 tab, PO, BID, # 180 tab, 0 Refill(s) Start Date: 11/02/15 Status: Suspended ceFAZolin 3 gm, Route: IVPB, ONCE, Dosing Weight 120.455, kg, Start date: 11/05/15 14:16:0 0 CDT, Duration: 1 doses or times, Stop date: 11/05/15 14:16:00 CDT, Surgical Pr ophylaxis Only; For patients > 120 kg Start Date: 11/05/15 Stop Date: 11/05/15 Status: Completed ceFAZolin 1 g injection 1 gm, IVPB, ABXQ8H, 0 Refill(s) Start Date: 11/27/15 Status: Suspended cefepime 1 gm, Route: IVPB, Drug form: INJ, ONCE, Dosing Weight 117.273, kg, Priority: ST AT, Start date: 11/01/15 20:51:00 CDT, Stop date: 11/01/15 20:51:00 CDT Notes: (Same As: Maxipime) MEDICATION WASTE Product Size: 1000 mgProduc t Wasted: 0 mg Start Date: 11/01/15 Stop Date: 11/01/15 Status: Completed cefepime 1 gm, Route: IVPB, Drug form: INJ, [id number], Dosing Weight 117.273, kg, (CrCl 30 - 49 ml/min), Start date: 11/02/15 5:00:00 CDT, Duration: 30 day, Stop date: 01/07 17:00:00 CDT Notes: (Same As: Maxipime) MEDICATION WASTE Product Size: 1000 mgProduc t Wasted: ___ mg Start Date: 11/02/15 Stop Date: 11/08/15 Status: Discontinued Cepacol Sore Throat 15 mg-3.6 mg mucous membrane lozenge 1 lozenge, Route: MUCOUS MEM, Drug Form: MARY, Dosing Weight 120.455, kg, Q2H, MD N Sore Throat, Start date: 11/24/15 11:49:00 CDT, Duration: 30 day, Stop date: 0 12/24/15 11:48:00 CDT Start Date: 11/24/15 Stop Date: 11/24/15 Status: Deleted Cepacol Sore Throat [place] Sugar Free 15 mg-3.6 mg mucous membrane lozenge 1 lozenge, Route: MUCOUS MEM, Drug Form: MARY, Dosing Weight 120.455, kg, Q2H, MD N Sore Throat, Start date: 11/24/15 11:49:00 CDT, Duration: 30 day, Stop date: 0 12/24/15 11:48:00 CDT Notes: Cepacol lozengesDispense 1 box = 16 lozenges (Same As: Cepacol Lozenges) Start Date: 11/24/15 Stop Date: 11/27/15 Status: Discontinued clindamycin 600 mg, Route: IVPB, ONCE, Dosing Weight 117.273, kg, Priority: STAT, Start date : 11/02/15 2:42:00 CDT, Stop date: 11/02/15 2:42:00 CDT Start Date: 11/02/15 Stop Date: 11/02/15 Status: Completed Dextrose 50% Syringe 25 gm, 50 mL, Route: IVP, Drug Form: INJ, Dosing Weight 120.455, kg, PRN, PRN Bl ood Glucose Results, Start date: 11/06/15 7:37:00 CDT, Duration: 30 day, Stop da te: 12/06/15 7:36:00 CDT Start Date: 11/06/15 Stop Date: 11/27/15 Status: Discontinued Dextrose 50% Syringe 12.5 gm, 25 mL, Route: IVP, Drug Form: INJ, Dosing Weight 120.455, kg, PRN, PRN Blood Glucose Results, Start date: 11/06/15 7:37:00 CDT, Duration: 30 day, Stop date: 12/06/15 7:36:00 CDT Start Date: 11/06/15 Stop Date: 11/27/15 Status: Discontinued Dextrose 50% Syringe 25 gm, 50 mL, Route: IVP, Drug Form: INJ, Dosing Weight 117.273, kg, PRN, PRN Bl ood Glucose Results, Start date: 11/02/15 4:10:00 CDT, Duration: 30 day, Stop da te: 12/02/15 4:09:00 CDT Start Date: 11/02/15 Stop Date: 11/06/15 Status: Discontinued Dextrose 50% Syringe 12.5 gm, 25 mL, Route: IVP, Drug Form: INJ, Dosing Weight 117.273, kg, PRN, PRN Blood Glucose Results, Start date: 11/02/15 4:10:00 CDT, Duration: 30 day, Stop date: 12/02/15 4:09:00 CDT Start Date: 11/02/15 Stop Date: 11/06/15 Status: Discontinued Dilaudid 0.5 mg, 0.25 mL, Route: IVP, Drug form: INJ, ONCE, Dosing Weight 120.455, kg, Pr iority: Routine, Start date: 11/18/15 16:05:00 CDT, Stop date: 11/18/15 16:05:00 CDT Notes: Same as: Dilaudid Start Date: 11/18/15 Stop Date: 11/18/15 Status: Completed Dilaudid 0.5 mg, 0.25 mL, Route: IV, Drug form: INJ, Daily, Dosing Weight 120.455, kg, MD N Dressing Change, Start date: 11/23/15 14:38:00 CDT, Duration: 30 day, Stop harish e: 12/23/15 14:37:00 CDT Notes: Same as: Dilaudid Start Date: 11/23/15 Stop Date: 11/27/15 Status: Discontinued Dilaudid 0.5 mg, 0.25 mL, Route: IVP, Drug form: INJ, ONCE, Dosing Weight 120.455, kg, Pr iority: STAT, Start date: 11/13/15 11:34:00 CDT, Stop date: 11/13/15 11:34:00 CD T Notes: Same as: Dilaudid Start Date: 11/13/15 Stop Date: 11/13/15 Status: Completed Dilaudid 0.5 mg, 0.25 mL, Route: IVP, Drug form: INJ, ONCE, Dosing Weight 120.455, kg, Pr iority: STAT, Start date: 11/11/15 10:24:00 CDT, Stop date: 11/11/15 10:24:00 CD T Notes: Same as: Dilaudid Start Date: 11/11/15 Stop Date: 11/11/15 Status: Completed Dilaudid 0.5 mg, 0.25 mL, Route: IVP, Drug form: INJ, ONCE, Dosing Weight 120.455, kg, MD N Dressing Change, Priority: Routine, Start date: 11/18/15 12:10:00 CDT, Stop da te: 11/18/15 12:10:00 CDT Notes: Same as: Dilaudid Start Date: 11/18/15 Stop Date: 11/18/15 Status: Deleted Dilaudid 0.5 mg, 0.25 mL, Route: IVP, Drug form: INJ, ONCE, Dosing Weight 120.455, kg, Pr iority: Routine, Start date: 11/16/15 19:22:00 CDT, Stop date: 11/16/15 19:22:00 CDT Notes: Same as: Dilaudid Start Date: 11/16/15 Stop Date: 11/16/15 Status: Completed Dilaudid 0.5 mg, 0.25 mL, Route: IV, Drug form: INJ, ONCALL, Dosing Weight 120.455, kg, P RN Dressing Change, Start date: 11/20/15 11:02:00 CDT, Stop date: 12/20/15 11:01 :00 CDT Notes: Same as: Dilaudid Start Date: 11/20/15 Stop Date: 11/27/15 Status: Discontinued Dilaudid 0.5 mg, 0.25 mL, Route: IVP, Drug form: INJ, ONCE, Dosing Weight 120.455, kg, Pr iority: Routine, Start date: 11/16/15 13:19:00 CDT, Stop date: 11/16/15 13:19:00 CDT Notes: Same as: Dilaudid Start Date: 11/16/15 Stop Date: 11/16/15 Status: Completed Dilaudid 0.5 mg, 0.25 mL, Route: IVP, Drug form: INJ, ONCE, Dosing Weight 120.455, kg, Pr iority: STAT, Start date: 11/21/15 8:42:00 CDT, Stop date: 11/21/15 8:42:00 CDT Notes: Same as: Dilaudid Start Date: 11/21/15 Stop Date: 11/21/15 Status: Completed Dilaudid 0.5 mg, 0.25 mL, Route: IVP, Drug form: INJ, ONCE, Dosing Weight 120.455, kg, Pr iority: STAT, Start date: 11/17/15 1:27:00 CDT, Stop date: 11/17/15 1:27:00 CDT Notes: Same as: Dilaudid Start Date: 11/17/15 Stop Date: 11/17/15 Status: Completed Dilaudid 0.2 mg, 0.1 mL, Route: IVP, Drug form: INJ, ONCE, Dosing Weight 120.455, kg, Bessie ority: STAT, Start date: 11/18/15 3:16:00 CDT, Stop date: 11/18/15 3:16:00 CDT Notes: Same as: Dilaudid Start Date: 11/18/15 Stop Date: 11/18/15 Status: Completed diphenhydrAMINE 25 mg oral capsule 25 mg = 1 cap, PO, Bedtime, PRN Insomnia, 0 Refill(s) Start Date: 11/27/15 Status: Suspended docusate 100 mg, 1 cap, Route: PO, Drug form: CAP, BID, Dosing Weight 117.273, kg, Start date: 11/02/15 9:00:00 CDT, Duration: 30 day, Stop date: 12/31/15 17:00:00 CDT Notes: (Same as: Colace) (Do Not Crush) Start Date: 11/02/15 Stop Date: 11/27/15 Status: Discontinued docusate sodium 100 mg oral capsule 100 mg = 1 cap, PO, BID, 0 Refill(s) Start Date: 11/27/15 Status: Suspended Flagyl 500 mg, 2 tab, Route: PO, Drug form: TAB, ABXQ8H, Dosing Weight 120.455, kg, Sta rt date: 11/08/15 20:00:00 CDT, Stop date: 12/08/15 12:00:00 CDT Notes: (Same as: Flagyl) Take with food/ avoid alcohol Start Date: 11/08/15 Stop Date: 11/10/15 Status: Discontinued Flagyl 500 mg, 100 mL, Route: IVPB, Drug form: INJ, ABXQ8H, Dosing Weight 117.273, kg, Start date: 11/02/15 5:00:00 CDT, Duration: 30 day, Stop date: 12/01/15 21:00:00 CDT Notes: (Same as: Flagyl) Avoid alcohol. Start Date: 11/02/15 Stop Date: 11/08/15 Status: Discontinued gabapentin 300 mg oral capsule 300 mg, 1 cap, Route: PO, Drug form: CAP, Q12H, Dosing Weight 120.455, kg, (CrCl 30 - 59 ml/min), Start date: 11/18/15 9:00:00 CDT, Duration: 30 day, Stop date: 12/17/15 21:00:00 CDT Notes: (Same as: Neurontin) Start Date: 11/18/15 Stop Date: 11/27/15 Status: Discontinued gabapentin 300 mg oral capsule 300 mg = 1 cap, PO, Q12H, 0 Refill(s) Start Date: 11/27/15 Status: Suspended glucagon 1 mg, Route: IM, Drug form: PDR/INJ, PRN, Dosing Weight 120.455, kg, PRN Blood G lucose Results, Start date: 11/06/15 7:37:00 CDT, Duration: 30 day, Stop date: 0 12/06/15 7:36:00 CDT Start Date: 11/06/15 Stop Date: 11/27/15 Status: Discontinued glucagon 1 mg, Route: IM, Drug form: PDR/INJ, PRN, Dosing Weight 117.273, kg, PRN Blood G lucose Results, Start date: 11/02/15 4:10:00 CDT, Duration: 30 day, Stop date: 0 12/02/15 4:09:00 CDT Start Date: 11/02/15 Stop Date: 11/06/15 Status: Discontinued heparin 5,000 unit, 1 mL, Route: SUB-Q, Drug form: INJ, Q8H, Dosing Weight 117.273, kg, Start date: 11/02/15 8:00:00 CDT, Duration: 30 day, Stop date: 12/02/15 0:00:00 CDT Notes: porcine heparin Start Date: 11/02/15 Stop Date: 11/04/15 Status: Discontinued heparin 7,500 unit = 1.5 mL, SUB-Q, Q8H, 0 Refill(s) Start Date: 11/27/15 Status: Suspended heparin 7,500 unit, 1.5 mL, Route: SUB-Q, Drug form: INJ, Q8H, Dosing Weight 117.273, kg , Start date: 11/04/15 16:00:00 CDT, Duration: 30 day, Stop date: 01/03/16 8:00: 00 CDT Notes: porcine heparin Start Date: 11/04/15 Stop Date: 11/27/15 Status: Discontinued hydrALAZINE 10 mg, 0.5 mL, Route: IVP, Drug form: INJ, Q6H, Dosing Weight 120.455, kg, PRN E levated BP, Start date: 11/02/15 16:58:00 CDT, Duration: 30 day, Stop date: 01/07 16:57:00 CDT, SBP>190 Notes: (Same as: Apresoline)Push over 5 minutes Start Date: 11/02/15 Stop Date: 11/27/15 Status: Discontinued hydrALAZINE 20 mg/mL injectable solution 10 mg = 0.5 mL, IVP, Q6H, PRN Elevated BP | SBP>190, 0 Refill(s) Start Date: 11/27/15 Status: Suspended hydrocortisone butyrate topical 0.1% cream 1 appl, Route: TOP, BID, PRN Rash, Start date: 11/26/15 10:47:00 CDT, Duration: 30 day, Stop date: 12/26/15 10:46:00 CDT Start Date: 11/26/15 Stop Date: 11/26/15 Status: Discontinued hydrocortisone topical 1% cream 1 appl, TOP, BID, PRN Rash, 0 Refill(s) Start Date: 11/27/15 Status: Suspended hydrocortisone topical 1% cream 1 appl, Route: TOP, BID, Drug form: CRM, PRN Rash, Start date: 11/26/15 12:14:00 CDT, Duration: 30 day, Stop date: 12/26/15 12:13:00 CDT Start Date: 11/26/15 Stop Date: 11/27/15 Status: Discontinued hydrOXYzine 25 mg, 1 cap, Route: PO, Drug form: CAP, Daily, Dosing Weight 120.455, kg, PRN I nsomnia, Start date: 11/24/15 11:50:00 CDT, Duration: 30 day, Stop date: 6 11:49:00 CDT Notes: (Same as: Vistaril) Start Date: 11/24/15 Stop Date: 11/27/15 Status: Discontinued hydrOXYzine pamoate 25 mg oral capsule 25 mg = 1 cap, PO, Daily, PRN Insomnia, 0 Refill(s) Start Date: 11/27/15 Status: Suspended insulin aspart 5 unit, 0.05 mL, Route: SUB-Q, Drug form: SOLN, TID-Before Meals, Dosing Weight 120.455, kg, Start date: 11/06/15 16:30:00 CDT, Duration: 30 day, Stop date: 11:30:00 CDT Notes: Roll in palms of hands gently; Do not shake vigorously. (Same as: Jarrod Angulo)"single patient use only"WASTE: F/P - Black; E - Municipal Trash Bin Stable f or 28 days at room temperature.Expires in days from Date Start Date: 11/06/15 Stop Date: 11/09/15 Status: Discontinued insulin aspart 10 unit, 0.1 mL, Route: SUB-Q, Drug form: SOLN, TID-Before Meals, Dosing Weight 120.455, kg, Start date: 11/11/15 7:30:00 CDT, Duration: 30 day, Stop date: 11/22 12/07 16:30:00 CDT Notes: Roll in palms of hands gently; Do not shake vigorously. (Same as: NovoLO G)"single patient use only"WASTE: F/P - Black; E - Municipal Trash Bin Stable f or 28 days at room temperature.Expires in days from Date Start Date: 11/11/15 Stop Date: 11/27/15 Status: Discontinued insulin aspart 8 unit, 0.08 mL, Route: SUB-Q, Drug form: SOLN, TID-Before Meals, Dosing Weight 120.455, kg, PRN Blood Glucose Results, Start date: 11/06/15 7:37:00 CDT, Durati on: 30 day, Stop date: 12/06/15 7:36:00 CDT Notes: Roll in palms of hands gently; Do not shake vigorously. (Same as: NovoDONG G)"single patient use only"WASTE: F/P - Black; E - Municipal Trash Bin Stable f or 28 days at room temperature.Expires in days from Date Start Date: 11/06/15 Stop Date: 11/27/15 Status: Discontinued insulin aspart 10 unit, 0.1 mL, Route: SUB-Q, Drug form: SOLN, TID-Before Meals, Dosing Weight 120.455, kg, PRN Blood Glucose Results, Start date: 11/06/15 7:37:00 CDT, Durati on: 30 day, Stop date: 12/06/15 7:36:00 CDT Notes: Roll in palms of hands gently; Do not shake vigorously. (Same as: NovoDONG G)"single patient use only"WASTE: F/P - Black; E - Municipal Trash Bin Stable f or 28 days at room temperature.Expires in days from Date Start Date: 11/06/15 Stop Date: 11/27/15 Status: Discontinued insulin aspart 3 unit, 0.03 mL, Route: SUB-Q, Drug form: SOLN, Bedtime, Dosing Weight 120.455, kg, PRN Blood Glucose Results, Start date: 11/06/15 7:37:00 CDT, Duration: 30 da y, Stop date: 12/06/15 7:36:00 CDT Notes: Roll in palms of hands gently; Do not shake vigorously. (Same as: Jarrod Angulo)"single patient use only"WASTE: F/P - Black; E - Municipal Trash Bin Stable f or 28 days at room temperature.Expires in days from Date Start Date: 11/06/15 Stop Date: 11/27/15 Status: Discontinued insulin aspart 2 unit, 0.02 mL, Route: SUB-Q, Drug form: SOLN, Bedtime, Dosing Weight 120.455, kg, PRN Blood Glucose Results, Start date: 11/06/15 7:37:00 CDT, Duration: 30 da y, Stop date: 12/06/15 7:36:00 CDT Notes: Roll in palms of hands gently; Do not shake vigorously. (Same as: Jarrod Angulo)"single patient use only"WASTE: F/P - Black; E - Municipal Trash Bin Stable f or 28 days at room temperature.Expires in days from Date Start Date: 11/06/15 Stop Date: 11/27/15 Status: Discontinued insulin aspart 4 unit, 0.04 mL, Route: SUB-Q, Drug form: SOLN, Bedtime, Dosing Weight 120.455, kg, PRN Blood Glucose Results, Start date: 11/06/15 7:37:00 CDT, Duration: 30 da y, Stop date: 12/06/15 7:36:00 CDT Notes: Roll in palms of hands gently; Do not shake vigorously. (Same as: Jarrod Angulo)"single patient use only"WASTE: F/P - Black; E - [facility] Trash Bin Stable f or 28 days at room temperature.Expires in days from Date Start Date: 11/06/15 Stop Date: 11/27/15 Status: Discontinued insulin aspart 1 unit, 0.01 mL, Route: SUB-Q, Drug form: SOLN, Bedtime, Dosing Weight 120.455, kg, PRN Blood Glucose Results, Start date: 11/06/15 7:37:00 CDT, Duration: 30 da y, Stop date: 12/06/15 7:36:00 CDT Notes: Roll in palms of hands gently; Do not shake vigorously. (Same as: Jarrod Angulo)"single patient use only"WASTE: F/P - Black; E - [facility] Trash Bin Stable f or 28 days at room temperature.Expires in days from Date Start Date: 11/06/15 Stop Date: 11/27/15 Status: Discontinued insulin aspart 2 unit, 0.02 mL, Route: SUB-Q, Drug form: SOLN, TID-Before Meals, Dosing Weight 120.455, kg, PRN Blood Glucose Results, Start date: 11/06/15 7:37:00 CDT, Durati on: 30 day, Stop date: 12/06/15 7:36:00 CDT Notes: Roll in palms of hands gently; Do not shake vigorously. (Same as: Jarrod Angulo)"single patient use only"WASTE: F/P - Black; E - [facility] Trash Bin Stable f or 28 days at room temperature.Expires in days from Date Start Date: 11/06/15 Stop Date: 11/27/15 Status: Discontinued insulin aspart 4 unit, 0.04 mL, Route: SUB-Q, Drug form: SOLN, TID-Before Meals, Dosing Weight 120.455, kg, PRN Blood Glucose Results, Start date: 11/06/15 7:37:00 CDT, Durati on: 30 day, Stop date: 12/06/15 7:36:00 CDT Notes: Roll in palms of hands gently; Do not shake vigorously. (Same as: Jarrod Angulo)"single patient use only"WASTE: F/P - Black; E - [facility] Trash Bin Stable f or 28 days at room temperature.Expires in days from Date Start Date: 11/06/15 Stop Date: 11/27/15 Status: Discontinued insulin aspart 6 unit, 0.06 mL, Route: SUB-Q, Drug form: SOLN, TID-Before Meals, Dosing Weight 120.455, kg, PRN Blood Glucose Results, Start date: 11/06/15 7:37:00 CDT, Durati on: 30 day, Stop date: 12/06/15 7:36:00 CDT Notes: Roll in palms of hands gently; Do not shake vigorously. (Same as: Jarrod Angulo)"single patient use only"WASTE: F/P - Black; E - Municipal Trash Bin Stable f or 28 days at room temperature.Expires in days from Date Start Date: 11/06/15 Stop Date: 11/27/15 Status: Discontinued insulin aspart 1 unit, 0.01 mL, Route: SUB-Q, Drug form: SOLN, TID-Before Meals, Dosing Weight 117.273, kg, PRN Blood Glucose Results, Start date: 11/02/15 4:10:00 CDT, Durati on: 30 day, Stop date: 12/02/15 4:09:00 CDT Notes: Roll in palms of hands gently; Do not shake vigorously. (Same as: Jarrod Angulo)"single patient use only"WASTE: F/P - Black; E - Municipal Trash Bin Stable f or 28 days at room temperature.Expires in days from Date Start Date: 11/02/15 Stop Date: 11/06/15 Status: Discontinued insulin aspart 4 unit, 0.04 mL, Route: SUB-Q, Drug form: SOLN, TID-Before Meals, Dosing Weight 117.273, kg, PRN Blood Glucose Results, Start date: 11/02/15 4:10:00 CDT, Durati on: 30 day, Stop date: 12/02/15 4:09:00 CDT Notes: Roll in palms of hands gently; Do not shake vigorously. (Same as: Jarrod Angulo)"single patient use only"WASTE: F/P - Black; E - Municipal Trash Bin Stable f or 28 days at room temperature.Expires in days from Date Start Date: 11/02/15 Stop Date: 11/06/15 Status: Discontinued insulin aspart 2 unit, 0.02 mL, Route: SUB-Q, Drug form: SOLN, TID-Before Meals, Dosing Weight 117.273, kg, PRN Blood Glucose Results, Start date: 11/02/15 4:10:00 CDT, Durati on: 30 day, Stop date: 12/02/15 4:09:00 CDT Notes: Roll in palms of hands gently; Do not shake vigorously. (Same as: Jarrod Angulo)"single patient use only"WASTE: F/P - Black; E - Municipal Trash Bin Stable f or 28 days at room temperature.Expires in days from Date Start Date: 11/02/15 Stop Date: 11/06/15 Status: Discontinued insulin aspart 5 unit, 0.05 mL, Route: SUB-Q, Drug form: SOLN, TID-Before Meals, Dosing Weight 117.273, kg, PRN Blood Glucose Results, Start date: 11/02/15 4:10:00 CDT, Durati on: 30 day, Stop date: 12/02/15 4:09:00 CDT Notes: Roll in palms of hands gently; Do not shake vigorously. (Same as: Jarrod Angulo)"single patient use only"WASTE: F/P - Black; E - Municipal Trash Bin Stable f or 28 days at room temperature.Expires in days from Date Start Date: 11/02/15 Stop Date: 11/06/15 Status: Discontinued insulin aspart 3 unit, 0.03 mL, Route: SUB-Q, Drug form: SOLN, TID-Before Meals, Dosing Weight 117.273, kg, PRN Blood Glucose Results, Start date: 11/02/15 4:10:00 CDT, Durati on: 30 day, Stop date: 12/02/15 4:09:00 CDT Notes: Roll in palms of hands gently; Do not shake vigorously. (Same as: Jarrod Angulo)"single patient use only"WASTE: F/P - Black; E - Municipal Trash Bin Stable f or 28 days at room temperature.Expires in days from Date Start Date: 11/02/15 Stop Date: 11/06/15 Status: Discontinued insulin aspart 10 unit, SUB-Q, TID-Before Meals, 0 Refill(s) Start Date: 11/27/15 Status: Suspended insulin aspart 7 unit, 0.07 mL, Route: SUB-Q, Drug form: SOLN, TID-Before Meals, Dosing Weight 120.455, kg, Start date: 11/09/15 16:30:00 CDT, Duration: 30 day, Stop date: 11:30:00 CDT Notes: Roll in palms of hands gently; Do not shake vigorously. (Same as: Jarrod Angulo)"single patient use only"WASTE: F/P - Black; E - Municipal Trash Bin Stable f or 28 days at room temperature.Expires in days from Date Start Date: 11/09/15 Stop Date: 11/10/15 Status: Discontinued insulin isophane-NPH 5 unit, Route: SUB-Q, BID, Dosing Weight 120.455, kg, Start date: 11/03/15 17:00 :00 CDT, Duration: 30 day, Stop date: 12/03/15 9:00:00 CDT Start Date: 11/03/15 Stop Date: 11/03/15 Status: Canceled Insulin regular 5 unit, Route: SUB-Q, ONCE, Dosing Weight 117.273, kg, Priority: STAT, Start harish e: 11/01/15 21:53:00 CDT, Stop date: 11/01/15 21:53:00 CDT Start Date: 11/01/15 Stop Date: 11/01/15 Status: Completed Lactated Ringers 1,000 mL 1,000 mL, Rate: 100 ml/hr, Infuse over: 10 hr, Route: IV, Dosing Weight 120.455 kg, Total Volume: 1,000, Start date: 11/05/15 0:01:00 CDT, Duration: 10 hr, Stop date: 11/05/15 10:00:00 CDT Start Date: 11/05/15 Stop Date: 11/05/15 Status: Completed Lasix 20 mg oral tablet 20 mg, 1 tab, Route: PO, Drug form: TAB, Daily, Dosing Weight 120.455, kg, Start date: 11/15/15 9:00:00 CDT, Duration: 30 day, Stop date: 12/14/15 9:00:00 CDT Notes: (Same as: Lasix) May cause GI upset. Give with food or milk. Start Date: 11/15/15 Stop Date: 11/23/15 Status: Discontinued Lasix 20 mg oral tablet 20 mg = 1 tab, PO, Daily, # 30 tab, 0 Refill(s) Start Date: 11/02/15 Stop Date: 11/27/15 Status: Discontinued Levemir 30 unit, 0.3 mL, Route: SUB-Q, Drug form: INJ, Daily, Dosing Weight 117.273, kg, Start date: 11/02/15 9:00:00 CDT, Duration: 30 day, Stop date: 12/01/15 9:00:00 CDT Notes: Same as LevemirDo not hold insulin without contacting prescriberWASTE: F/ P - Black; E - Municipal Trash Bin "single patient use only" Start Date: 11/02/15 Stop Date: 11/03/15 Status: Discontinued Levemir 30 unit, SUB-Q, Daily, 0 Refill(s) Start Date: 11/02/15 Status: Suspended Levemir FlexPen 30 unit, 0.3 mL, Route: SUB-Q, Drug form: INJ, Daily, Dosing Weight 117.273, kg, Start date: 11/03/15 17:00:00 CDT, Duration: 30 day, Stop date: 12/03/15 9:00:00 CDT Notes: Same as LevemirDo not hold insulin without contacting prescriberWASTE: F/ P - Black; E - Municipal Trash Bin "single patient use only" Start Date: 11/03/15 Stop Date: 11/06/15 Status: Discontinued Levemir FlexPen 40 unit, 0.4 mL, Route: SUB-Q, Drug form: INJ, Daily, Dosing Weight 117.273, kg, Start date: 11/07/15 9:00:00 CDT, Stop date: 12/06/15 9:00:00 CDT Notes: Same as Durga not hold insulin without contacting prescriberWASTE: F/ P - Black; E - Municipal Trash Bin "single patient use only" Start Date: 11/07/15 Stop Date: 11/27/15 Status: Discontinued lidocaine 1% 50 mg, 5 mL, Route: INTRADERM, Drug Form: INJ, Dosing Weight 120.455, kg, ONCALL , Start date: 11/11/15 12:00:00 CDT, Duration: 30 day, Stop date: 12/11/15 11:59 :00 CDT Notes: (Same as: Xylocaine) Start Date: 11/11/15 Stop Date: 11/27/15 Status: Discontinued lidocaine 4% topical cream 1 appl, Route: TOP, BID, Drug form: CRM, Start date: 11/22/15 11:30:00 CDT, Dura tion: 30 day, Stop date: 12/22/15 9:00:00 CDT Start Date: 11/22/15 Stop Date: 11/22/15 Status: Deleted lidocaine topical 1 appl, Route: TOP, Q12H, Drug form: OINT, Start date: 11/22/15 15:00:00 CDT, Du ration: 30 day, Stop date: 12/22/15 9:00:00 CDT Notes: (Same as: Xylocaine) Start Date: 11/22/15 Stop Date: 11/27/15 Status: Discontinued lidocaine topical patch (5% film) 1 patch, Route: TOP, Daily, Drug form: FILM, Start date: 11/17/15 9:00:00 CDT, D uration: 30 day, Stop date: 12/16/15 9:00:00 CDT Notes: Apply only once for up to 12 hours in p21-vsad period (12 hours on and 12 hours off).(Same as: Lidoderm)"Remove old patch before application of new patch" Start Date: 11/17/15 Stop Date: 11/27/15 Status: Discontinued lidocaine topical patch (5% film) 1 patch, TOP, Daily, 0 Refill(s) Start Date: 11/27/15 Status: Suspended Lovenox 120 mg, 0.8 mL, Route: SUB-Q, Drug form: INJ, ONCE, Dosing Weight 117.273, kg, S tart date: 11/01/15 20:35:00 CDT, Stop date: 11/01/15 20:35:00 CDT Notes: Nurse to ensure documentation of patient education per anticoagulation po licy. (Same as: Lovenox) Start Date: 11/01/15 Stop Date: 11/01/15 Status: Completed melatonin 3 mg, 1 tab, Route: PO, Drug form: TAB, Bedtime, Dosing Weight 120.455, kg, PRN Sleep, Start date: 11/06/15 9:34:00 CDT, Duration: 30 day, Stop date: 12/06/15 9 :33:00 CDT Notes: (Same as: Melatonin) Start Date: 11/06/15 Stop Date: 11/27/15 Status: Discontinued melatonin 3 mg oral tablet 3 mg = 1 tab, PO, Bedtime, PRN Sleep, 0 Refill(s) Start Date: 11/27/15 Status: Suspended methocarbamol 500 mg oral tablet 1,000 mg = 2 tab, PO, TID, 0 Refill(s) Start Date: 11/27/15 Status: Suspended morphine Sulfate 1 mg, 0.5 mL, Route: IVP, Drug form: INJ, ONCE, Dosing Weight 120.455, kg, PRN P ain Score 7-10, Start date: 11/08/15 9:23:00 CDT, Stop date: 12/08/15 9:22:00 CD T Notes: (Same as:MORPhine Sulfate) Start Date: 11/08/15 Stop Date: 11/08/15 Status: Completed morphine Sulfate 2 mg, 1 mL, Route: IVP, Drug form: INJ, ONCE, Dosing Weight 120.455, kg, Start d ate: 11/16/15 2:21:00 CDT, Stop date: 11/16/15 2:21:00 CDT Notes: (Same as:MORPhine Sulfate) Start Date: 11/16/15 Stop Date: 11/16/15 Status: Completed morphine Sulfate 4 mg, 1 mL, Route: IV, Drug form: INJ, Q12H, Dosing Weight 120.455, kg, PRN Pain Score 7-10, Start date: 11/27/15 11:46:00 CDT, Duration: 30 day, Stop date: 08/07 11:45:00 CDT Notes: (Same as:MORPhine Sulfate) Start Date: 11/27/15 Stop Date: 11/27/15 Status: Discontinued morphine Sulfate 4 mg, Route: IVP, ONCE, Dosing Weight 117.273, kg, Priority: STAT, Start date: 0 11/02/15 5:59:00 CDT, Stop date: 11/02/15 5:59:00 CDT Start Date: 11/02/15 Stop Date: 11/02/15 Status: Completed morphine Sulfate 2 mg, 1 mL, Route: IVP, Drug form: INJ, ONCE, Dosing Weight 117.273, kg, Start d ate: 11/02/15 8:59:00 CDT, Stop date: 11/02/15 8:59:00 CDT Notes: (Same as:MORPhine Sulfate) Start Date: 11/02/15 Stop Date: 11/02/15 Status: Completed morphine Sulfate 4 mg, 1 mL, Route: IVP, Drug form: INJ, ONCE, Dosing Weight 117.273, kg, Priorit y: STAT, Start date: 11/01/15 22:26:00 CDT, Stop date: 11/01/15 22:26:00 CDT Notes: (Same as:MORPhine Sulfate) Start Date: 11/01/15 Stop Date: 11/01/15 Status: Completed morphine Sulfate 2 mg, 1 mL, Route: IVP, Drug form: INJ, ONCE, Dosing Weight 120.455, kg, Start d ate: 11/15/15 4:42:00 CDT, Stop date: 11/15/15 4:42:00 CDT Notes: (Same as:MORPhine Sulfate) Start Date: 11/15/15 Stop Date: 11/15/15 Status: Completed morphine Sulfate 4 mg, Route: IVP, Drug form: INJ, ONCE, Dosing Weight 117.273, kg, Priority: STA T, Start date: 11/01/15 21:23:00 CDT, Stop date: 11/01/15 21:23:00 CDT Start Date: 11/01/15 Stop Date: 11/01/15 Status: Completed morphine Sulfate 2 mg, 1 mL, Route: IVP, Drug form: INJ, ONCE, Dosing Weight 120.455, kg, Start d ate: 11/23/15 0:04:00 CDT, Stop date: 11/23/15 0:04:00 CDT Notes: (Same as:MORPhine Sulfate) Start Date: 11/23/15 Stop Date: 11/23/15 Status: Completed [place] 5/325 oral tablet 1 tab, Route: PO, Drug Form: TAB, Dosing Weight 117.273, kg, ONCE, STAT, Start d ate: 11/02/15 2:51:00 CDT, Stop date: 11/02/15 2:51:00 CDT Start Date: 11/02/15 Stop Date: 11/02/15 Status: Completed NS (Bolus) IV 1,000 mL, 1,000 ml/hr, Infuse Over: 1 hr, Route: IV, 1,000, Drug form: INJ, ONCE , Priority: STAT, Dosing Weight 117.273 kg, Start date: 11/01/15 23:42:00 CDT, D uration: 1 doses or times, Stop date: 11/01/15 23:42:00 CDT Start Date: 11/01/15 Stop Date: 11/01/15 Status: Completed NS (Bolus) IV 500 mL, 500 ml/hr, Infuse Over: 1 hr, Route: IV, 500, Drug form: INJ, ONCE, Prio rity: STAT, Dosing Weight 117.273 kg, Start date: 11/01/15 21:23:00 CDT, Duratio n: 1 doses or times, Stop date: 11/01/15 21:23:00 CDT Start Date: 11/01/15 Stop Date: 11/01/15 Status: Completed NS (Bolus) IV 1,000 mL, 1,000 ml/hr, Infuse Over: 1 hr, Route: IV, ONCE, Priority: STAT, Dosin g Weight 117.273 kg, Start date: 11/01/15 21:23:00 CDT, Duration: 1 doses or satnam es, Stop date: 11/01/15 21:23:00 CDT Start Date: 11/01/15 Stop Date: 11/01/15 Status: Completed ondansetron 4 mg, 2 mL, Route: IVP, Drug form: INJ, Q6H, Dosing Weight 117.273, kg, PRN Naus ea & Vomiting, Start date: 11/02/15 4:08:00 CDT, Duration: 30 day, Stop date: 12/02/15 4:07:00 CDT Notes: (Same as: Luis) MEDICATION WASTE Product Size: 4 mgProduct Was savana: ___ mg Start Date: 11/02/15 Stop Date: 11/27/15 Status: Discontinued remove patch 1 patch, Route: TOP, Bedtime, Drug form: ERFILM, Start date: 11/17/15 21:00:00 C DT, Duration: 30 day, Stop date: 12/16/15 21:00:00 CDT Notes: Remove patch 12 hours after application each day. Start Date: 11/17/15 Stop Date: 11/27/15 Status: Discontinued Robaxin 1,000 mg, 2 tab, Route: PO, Drug form: TAB, TID, Dosing Weight 120.455, kg, Star t date: 11/10/15 21:00:00 CDT, Stop date: 12/10/15 16:00:00 CDT Notes: (Same as:Robaxin) Start Date: 11/10/15 Stop Date: 11/27/15 Status: Discontinued Saline Flush 0.9% 10 mL, Route: IVP, Drug Form: INJ, Dosing Weight 117.273, kg, PRN, PRN Line Flus h, Start date: 11/01/15 20:32:00 CDT, Duration: 30 day, Stop date: 12/31/15 20:3 1:00 CDT Notes: (Same as: BD Posiflush) Start Date: 11/01/15 Stop Date: 11/27/15 Status: Discontinued Saline Flush 0.9% 10 mL, Route: IVP, Drug Form: INJ, Dosing Weight 120.455, kg, Q8H, Start date: 0 11/11/15 16:00:00 CDT, Duration: 30 day, Stop date: 12/11/15 8:00:00 CDT Notes: (Same as: BD Posiflush) Start Date: 11/11/15 Stop Date: 11/27/15 Status: Discontinued Saline Flush 0.9% 10 mL, Route: IVP, Drug Form: INJ, Dosing Weight 120.455, kg, PRN, PRN Line Flus h, Start date: 11/11/15 11:53:00 CDT, Duration: 30 day, Stop date: 12/11/15 11:5 2:00 CDT Notes: (Same as: BD Posiflush) Start Date: 11/11/15 Stop Date: 11/27/15 Status: Discontinued sertraline 50 mg oral tablet 50 mg = 1 tab, PO, Daily, 0 Refill(s) Start Date: 11/27/15 Status: Suspended sodium chloride 0.9% 1000 ml INJ 1,000 mL 1,000 mL, Rate: 100 ml/hr, Infuse over: 10 hr, Route: IV, Dosing Weight 117.273 kg, Total Volume: 1,000, Start date: 11/02/15 4:43:00 CDT, Duration: 30 day, Sto p date: 12/02/15 4:42:00 CDT Start Date: 11/02/15 Stop Date: 11/04/15 Status: Discontinued sodium chloride 0.9% 1000 ml INJ 1,000 mL 1,000 mL, Rate: 500 ml/hr, Infuse over: 2 hr, Route: IV, Dosing Weight 120.455 k g, Total Volume: 1,000, Start date: 11/20/15 7:57:00 CDT, Duration: 1 doses or t imes, Stop date: 11/20/15 9:56:00 CDT Start Date: 11/20/15 Stop Date: 11/20/15 Status: Completed sodium chloride 0.9% 1000 ml INJ 1,000 mL 1,000 mL, Rate: 999 ml/hr, Infuse over: 1 hr, Route: IV, Dosing Weight 117.273 k g, Total Volume: 1,000, Start date: 11/01/15 20:55:00 CDT, Duration: 1 doses or times, Stop date: 11/01/15 21:54:00 CDT Start Date: 11/01/15 Stop Date: 11/01/15 Status: Discontinued sodium chloride 0.9% 1000 ml INJ 1,000 mL 1,000 mL, Rate: 500 ml/hr, Infuse over: 2 hr, Route: IV, Dosing Weight 120.455 k g, Total Volume: 1,000, Start date: 11/24/15 8:08:00 CDT, Duration: 2 hr, Stop d ate: 08/02/16 10:07:00 CDT Start Date: 11/24/15 Stop Date: 11/24/15 Status: Completed sodium chloride 0.9% 1000 ml INJ 1,000 mL 1,000 mL, Rate: 150 ml/hr, Infuse over: 6.7 hr, Route: IV, Dosing Weight 120.455 kg, Total Volume: 1,000, Start date: 11/25/15 13:47:00 CDT, Duration: 1 doses or times, Stop date: 11/25/15 20:28:00 CDT Start Date: 11/25/15 Stop Date: 11/25/15 Status: Completed sodium chloride 0.9% 1000 ml INJ 1,000 mL 1,000 mL, Rate: 500 ml/hr, Infuse over: 2 hr, Route: IV, Dosing Weight 120.455 k g, Total Volume: 1,000, Start date: 11/23/15 7:37:00 CDT, Duration: 2 hr, Stop d ate: 11/23/15 9:36:00 CDT Start Date: 11/23/15 Stop Date: 11/23/15 Status: Completed Sodium Chloride 0.9% IV (Sodium Chloride 0.9% (Bolus) IV) 1,500 mL, 1,500 ml/hr, Infuse Over: 1 hr, Route: IV, 1,500, Drug form: INJ, ONCE , Priority: STAT, Dosing Weight 117.273 kg, Start date: 11/01/15 20:32:00 CDT, D uration: 1 doses or times, Stop date: 11/01/15 20:32:00 CDT Start Date: 11/01/15 Stop Date: 11/01/15 Status: Discontinued Sodium Chloride 0.9% IV (Sodium Chloride 0.9% (Bolus) IV) 3,518.19 mL, 1759.1 ml/hr, Infuse Over: 2 hr, Route: IV, 3,518.19, Drug form: IN J, ONCE, Dosing Weight 117.273 kg, Start date: 11/01/15 20:33:00 CDT, Stop date: 11/01/15 20:33:00 CDT Start Date: 11/01/15 Stop Date: 11/01/15 Status: Discontinued Sodium Chloride 0.9% IV 1000 mL 1,000 mL, Rate: 100 ml/hr, Infuse over: 10 hr, Route: IV, Dosing Weight 117.273 kg, Total Volume: 1,000, Start date: 11/02/15 4:12:00 CDT, Duration: 30 day, Sto p date: 12/02/15 4:11:00 CDT Start Date: 11/02/15 Stop Date: 11/02/15 Status: Discontinued sterile water 2.2 mL, Route: IV, Drug Form: INJ, ONCE, Start date: 11/19/15 11:22:00 CDT, Stop date: 11/19/15 11:22:00 CDT Notes: For reconstitution of drugs only Start Date: 11/19/15 Stop Date: 11/19/15 Status: Completed trazodone 150 mg, 3 tab, Route: PO, Drug form: TAB, Bedtime, Dosing Weight 120.455, kg, MD N Insomnia, Start date: 11/21/15 8:43:00 CDT, Stop date: 12/21/15 8:42:00 CDT Notes: (Same As: Sybil) Start Date: 11/21/15 Stop Date: 11/27/15 Status: Discontinued trazodone 50 mg oral tablet 150 mg = 3 tab, PO, Bedtime, PRN Insomnia, 0 Refill(s) Start Date: 11/27/15 Status: Suspended trolamine salicylate topical 10% cream 1 appl, Route: TOP, TID, Drug form: CRM, PRN Pain Score 1-3, Start date: 6 11:30:00 CDT, Duration: 30 day, Stop date: 12/27/15 11:29:00 CDT Notes: (Same As: Aspercreme, Myoflex) Start Date: 11/27/15 Stop Date: 11/27/15 Status: Discontinued trolamine salicylate topical 10% cream 1 appl, TOP, TID, PRN Pain Score 1-3, 0 Refill(s) Start Date: 11/27/15 Status: Suspended Tylenol 325 mg, 1 tab, Route: PO, Drug form: TAB, Q6H, Dosing Weight 120.455, kg, PRN Pa in 1-3/Temp > 100.4 F, Start date: 11/21/15 8:42:00 CDT, Duration: 30 day, Stop date: 12/21/15 8:41:00 CDT Notes: Do not exceed 4 gm/day. (Same as: Tylenol) Start Date: 11/21/15 Stop Date: 11/27/15 Status: Discontinued Tylenol with Codeine #3 oral tablet 1 - 2 tab, PO, Q4H, PRN Pain, X 4 day, # 36 tab, 0 Refill(s) Start Date: 11/27/15 Stop Date: 12/01/15 Status: Suspended Ultram 50 mg oral tablet 100 mg, 2 tab, Route: PO, Drug form: TAB, Q6H, Dosing Weight 120.455, kg, PRN Pa in Score 4-6, Start date: 11/21/15 8:41:00 CDT, Duration: 30 day, Stop date: 8:40:00 CDT Notes: Not to exceed 400mg/day. (Same As: Ultram) Start Date: 11/21/15 Stop Date: 11/23/15 Status: Discontinued Ultram 50 mg oral tablet 100 mg, 2 tab, Route: PO, Drug form: TAB, Q6H, Dosing Weight 120.455, kg, Start date: 11/23/15 3:00:00 CDT, Stop date: 12/23/15 0:00:00 CDT Notes: Not to exceed 400mg/day. (Same As: Ultram) Start Date: 11/23/15 Stop Date: 11/27/15 Status: Discontinued Ultram 50 mg oral tablet 100 mg = 2 tab, PO, Q6H, 0 Refill(s) Start Date: 11/27/15 Status: Suspended vancomycin 500 mg, Route: IVPB, Drug form: PDR/INJ, [id number], Start date: 11/02/15 17:00:00 CDT, Duration: 30 day, Stop date: 12/02/15 5:00:00 CDT Notes: TIME CRITICAL MEDICATION(Same As: Vancocin) Start Date: 11/02/15 Stop Date: 11/03/15 Status: Discontinued vancomycin 2,345.46 mg, Route: IVPB, Drug form: INJ, ONCE, Dosing Weight 117.273, kg, Prior ity: STAT, Start date: 11/01/15 20:52:00 CDT, Stop date: 11/01/15 20:52:00 CDT Start Date: 11/01/15 Stop Date: 11/01/15 Status: Discontinued vancomycin 1,000 mg, Route: IVPB, Drug form: INJ, ONCE, Dosing Weight 117.273, kg, Priority : STAT, Start date: 11/01/15 21:23:00 CDT, Stop date: 11/01/15 21:23:00 CDT Start Date: 11/01/15 Stop Date: 11/01/15 Status: Completed vancomycin 1,000 mg, Route: IVPB, Drug form: INJ, ONCE, Dosing Weight 117.273, kg, Priority : STAT, Start date: 11/01/15 21:52:00 CDT, Stop date: 11/01/15 21:52:00 CDT Start Date: 11/01/15 Stop Date: 11/01/15 Status: Completed vancomycin + sodium chloride 0.9% INJ 100 mL 250 mg, Route: IVPB, Drug form: PDR/INJ, ONCE, Start date: 11/05/15 11:45:00 CDT , Stop date: 11/05/15 11:45:00 CDT Notes: TIME CRITICAL MEDICATION(Same As: Vancocin) Start Date: 11/05/15 Stop Date: 11/05/15 Status: Deleted vancomycin + sodium chloride 0.9% INJ 250 mL 750 mg, Route: IVPB, Drug form: PDR/INJ, [id number], Start date: 11/04/15 5:00:00 C DT, Duration: 30 day, Stop date: 12/03/15 5:00:00 CDT Notes: TIME CRITICAL MEDICATION(Same As: Vancocin)Infusion rate< 1000 mg: infuse over 1 [id number] - 1500 mg: infuse over 1.5 [id number] - 2000 mg: infuse over 2 hours> 2001 mg: infuse over 2.5 hours Start Date: 11/04/15 Stop Date: 11/08/15 Status: Discontinued vancomycin + sodium chloride 0.9% INJ 250 mL 1,800 mg, Route: IV, Q12H, Dosing Weight 117.273, kg, Start date: 11/02/15 12:13 :00 CDT, Duration: 30 day, Stop date: 12/02/15 12:00:00 CDT, Pediatric Dosing Notes: TIME CRITICAL MEDICATION(Same As: Vancocin)Infusion rate< 1000 mg: infuse over 1 [id number] - 1500 mg: infuse over 1.5 hoursVancomycin FOR IV SET [id number] - 2000 mg: infuse over 2 hours> 2001 mg: infuse over 2.5 hours MEDICATION WASTE Product Size: 1000 mgProduct Wasted: ___ mg Start Date: 11/02/15 Stop Date: 11/02/15 Status: Deleted Xanax 0.5 mg oral tablet 0.5 mg = 1 tab, PO, TID, PRN Anxiety, 0 Refill(s) Start Date: 11/27/15 Status: Suspended Xanax 0.5 mg oral tablet 0.5 mg, 1 tab, Route: PO, Drug form: TAB, TID, Dosing Weight 120.455, kg, PRN An xiety, Start date: 11/06/15 9:34:00 CDT, Duration: 30 day, Stop date: 12/06/15 9 :33:00 CDT Notes: With food or milk(Same as: Xanax) Start Date: 11/06/15 Stop Date: 11/27/15 Status: Discontinued Zofran 4 mg, 2 mL, Route: IVP, Drug form: INJ, ONCE, Dosing Weight 117.273, kg, Priorit y: STAT, Start date: 11/01/15 20:55:00 CDT, Stop date: 11/01/15 20:55:00 CDT Notes: (Same as: Zofran) MEDICATION WASTE Product Size: 4 mgProduct Was savana: 0 mg Start Date: 11/01/15 Stop Date: 11/01/15 Status: Completed Zoloft 50 mg, 1 tab, Route: PO, Drug form: TAB, Daily, Dosing Weight 120.455, kg, Start date: 11/06/15 9:00:00 CDT, Duration: 30 day, Stop date: 12/05/15 9:00:00 CDT Notes: (Same as: Zoloft) Start Date: 11/06/15 Stop Date: 11/27/15 Status: Discontinued Results BLOOD BANK RESULTS 1 2 3 Most recent to oldest [Reference Range]: A POS *Unknown* (11/10/15 9:58 AM) A POS *Unknown* (11/05/15 4:34 AM) A POS *Unknown* (11/02/15 1:27 AM) ABO/Rh Negative (11/10/15 9:58 AM) Negative (11/05/15 4:34 AM) Negative (11/02/15 1:27 AM) Antibody Scrn Product available (11/10/15 7:36 AM) RBC product ELECTROLYTES 1 2 3 Most recent to oldest [Reference Range]: 142 mEq/L (11/25/15 3:54 AM) 140 mEq/L (11/24/15 4:43 AM) 142 mEq/L (11/23/15 3:30 AM) Sodium Lvl [135-145 mEq/L] 4.8 mEq/L (11/25/15 3:54 AM) 4.9 mEq/L (11/24/15 4:43 AM) 4.8 mEq/L (11/23/15 3:30 AM) Potassium Lvl [3.5-5.1 mEq/L] 110 mEq/L *HI* (11/25/15 3:54 AM) 108 mEq/L (11/24/15 4:43 AM) 109 mEq/L (11/23/15 3:30 AM) Chloride Lvl [95-109 mEq/L] 25 mEq/L (11/25/15 3:54 AM) 22 mEq/L *LOW* (11/24/15 4:43 AM) 24 mEq/L (11/23/15 3:30 AM) CO2 [24-32 mEq/L] 11.8 mEq/L (11/25/15 3:54 AM) 14.9 mEq/L (11/24/15 4:43 AM) 13.8 mEq/L (11/23/15 3:30 AM) AGAP [10.0-20.0 mEq/L] CHEM PANEL 1 2 3 Most recent to oldest [Reference Range]: 1.79 mg/dL *HI* (11/25/15 3:54 AM) 1.69 mg/dL *HI* (11/24/15 4:43 AM) 1.86 mg/dL *HI* (11/23/15 3:30 AM) Creatinine Lvl [0.50-1.40 mg/dL] 40 mL/min/1.73m2 1 *NA* (11/25/15 3:54 AM) 43 mL/min/1.73m2 2 *NA* (11/24/15 4:43 AM) 38 mL/min/1.73m2 3 *NA* (11/23/15 3:30 AM) eGFR 21 mg/dL (11/25/15 3:54 AM) 16 mg/dL (11/24/15 4:43 AM) 19 mg/dL (11/23/15 3:30 AM) BUN [7-22 mg/dL] 8 (11/01/15 8:03 PM) B/C Ratio [6-25] 120 mg/dL *HI* (11/25/15 3:54 AM) 149 mg/dL *HI* (11/24/15 4:43 AM) 156 mg/dL *HI* (11/23/15 3:30 AM) Glucose Lvl [70-99 mg/dL] 8.4 g/dL (11/01/15 8:03 PM) Total Protein [6.4-8.4 g/dL] 1.7 g/dL 4 *LOW* (11/01/15 8:03 PM) Albumin Lvl [3.5-5.0 g/dL] 6.7 g/dL *HI* (11/01/15 8:03 PM) Globulin [2.0-4.0 g/dL] 0.3 *LOW* (11/01/15 8:03 PM) A/G Ratio [0.7-1.6] 8.3 mg/dL *LOW* (11/25/15 3:54 AM) 8.7 mg/dL (11/24/15 4:43 AM) 8.0 mg/dL *LOW* (11/23/15 3:30 AM) Calcium Lvl [8.5-10.5 mg/dL] 3.2 mg/dL (11/11/15 5:08 AM) 2.6 mg/dL (11/09/15 4:47 PM) 4.0 mg/dL (11/06/15 5:13 AM) Phosphorus [2.5-4.5 mg/dL] 1.7 mg/dL *LOW* (11/11/15 5:08 AM) 1.7 mg/dL *LOW* (11/09/15 4:47 PM) 1.7 mg/dL *LOW* (11/06/15 5:13 AM) Magnesium Lvl [1.8-2.4 mg/dL] 8 unit/L (11/01/15 8:03 PM) ALT [0-65 unit/L] 12 unit/L (11/01/15 8:03 PM) AST [0-37 unit/L] 155 unit/L *HI* (11/01/15 8:03 PM) Alk Phos [39-136 unit/L] 0.4 mg/dL (11/01/15 8:03 PM) Bili Total [0.2-1.3 mg/dL] 0.8 mMol/L (11/02/15 3:00 PM) 0.7 mMol/L (11/02/15 12:50 PM) 0.9 mMol/L (11/02/15 1:27 AM) Lactic Acid Lvl [0.5-2.2 mMol/L] 0.89 ng/mL *HI* (11/01/15 8:03 PM) Procalcitonin Lvl [0.00-0.10 ng/mL] 1Result Comment: [...] tiplied by the estimated BMI. 4Result Comment: rechecked CARDIAC ENZYMES 1 2 3 Most recent to oldest [Reference Range]: 30 unit/L (11/01/15 8:09 PM) Total CK [12-191 unit/L] <0.5 ng/mL (11/01/15 8:03 PM) CK MB [0.5-3.6 ng/mL] <0.5 *NA* (11/01/15 8:03 PM) CK MB Index [0.0-2.5] <0.02 ng/mL (11/01/15 8:09 PM) Troponin-I [0.00-0.40 ng/mL] SPECIAL CHEMISTRY 1 2 3 Most recent to oldest [Reference Range]: 12.9 % *HI* (11/05/15 4:34 AM) Hgb A1C [<=5.6 %] TOXICOLOGY 1 2 3 Most recent to oldest [Reference Range]: 0430 *NA* (11/07/15 5:33 AM) 2030 *NA* (11/06/15 5:13 AM) 0430 *NA* (11/05/15 4:34 AM) Chris Tr TND 20.6 ug/ml *NA* (11/03/15 4:46 AM) 18.6 ug/ml *NA* (11/02/15 3:00 PM) Chris Lvl 16.1 ug/ml *NA* (11/07/15 5:33 AM) 11.6 ug/ml *NA* (11/06/15 5:13 AM) 12.0 ug/ml *NA* (11/05/15 4:34 AM) Chrsi Tr URINE CHEM 1 2 3 Most recent to oldest [Reference Range]: 107.00 mg/dL *NA* (11/25/15 9:48 AM) 88.30 mg/dL *NA* (11/04/15 6:11 PM) U Creatinine 873.9 mg/dL *NA* (11/25/15 9:48 AM) 910.4 mg/dL *NA* (11/04/15 6:11 PM) U Protein 8.2 *NA* (11/25/15 9:48 AM) U Prot/Creat 281 mg/dL *NA* (11/25/15 9:48 AM) U Urea 57 mEq/L *NA* (11/25/15 9:48 AM) 31 mEq/L *NA* (11/04/15 6:11 PM) U Sodium Negative (11/04/15 6:11 PM) U Preg [Negative] None Seen (11/25/15 9:48 AM) U Eos [None Seen] URINE AND STOOL 1 2 3 Most recent to oldest [Reference Range]: Clear (11/25/15 9:48 AM) Clear (11/01/15 11:13 PM) UA Turbidity [Clear] Yellow *NA* (11/25/15 9:48 AM) Yellow *NA* (11/01/15 11:13 PM) UA Color [Yellow] 6.5 (11/25/15 9:48 AM) UA pH [5.0-8.0] 6.0 (11/01/15 11:13 PM) UA pH [5.0-8.0] 1.015 (11/25/15 9:48 AM) UA Spec Grav [<=1.030] 1.020 (11/01/15 11:13 PM) UA Spec Grav [<=1.030] 100mg/dL *NA* (11/25/15 9:48 AM) UA Glucose >=1000 mg/dL *ABN* (11/01/15 11:13 PM) UA Glucose [Negative mg/dL] Trace *ABN* (11/25/15 9:48 AM) Moderate *ABN* (11/01/15:13 PM) UA Blood [Negative] Negative mg/dL *NA* (11/25/15 9:48 AM) UA Ketones [Negative mg/dL] Negative *NA* (11/01/15 11:13 PM) UA Ketones [Negative] >=300 mg/dL *ABN* (11/25/15 9:48 AM) >=300 mg/dL *ABN* (11/01/15 11:13 PM) UA Protein [Negative mg/dL] <=1.0 mg/dL *NA* (11/25/15 9:48 AM) UA Urobilinogen [0.1-1.0 mg/dL] 0.2 EU/dL (11/01/15 11:13 PM) UA Urobilinogen [0.1-1.0 EU/dL] Negative *NA* (11/25/15 9:48 AM) Negative *NA* (11/01/15 11:13 PM) UA Bili [Negative] Negative (11/25/15 9:48 AM) Negative (11/01/15 11:13 PM) UA Leuk Est [Negative] Negative (11/25/15 9:48 AM) Negative (11/01/15 11:13 PM) UA Nitrite [Negative] 3 /HPF (11/25/15 9:48 AM) UA WBC [0-5 /HPF] 0-2 /HPF (11/01/15 11:13 PM) UA WBC [None Seen /HPF] 2 /HPF (11/25/15 9:48 AM) 11-20 /HPF *ABN* (11/01/15 11:13 PM) UA RBC [0-2 /HPF] Occasional /HPF *NA* (11/25/15 9:48 AM) Few /HPF (11/01/15 11:13 PM) UA Bacteria [None Seen /HPF] Occasional /LPF *NA* (11/25/15 9:48 AM) Moderate /LPF *ABN* (11/01/15 11:13 PM) UA Sq Epi [Few /LPF] 1 /LPF (11/25/15 9:48 AM) UA Hyal Cast [0-2 /LPF] 0-2 (11/01/15 11:13 PM) UA Hyal Cast [0-2] Occasional /HPF *NA* (11/25/15 9:48 AM) Few /HPF *ABN* (11/01/15 11:13 PM) UA Amorph Tamera [None Seen /HPF] Few /LPF *NA* (11/25/15 9:48 AM) Few /LPF (11/01/15 11:13 PM) UA Mucus [None Seen /LPF] 0-2 /LPF *ABN* (11/01/15 11:13 PM) UA Coarse Gran [None Seen /LPF] 0-2 /LPF *ABN* (11/01/15 11:13 PM) UA Gran Cast [None Seen /LPF] Performed *NA* (11/25/15 9:48 AM) Micro? IMMUNOLOGY 1 2 3 Most recent to oldest [Reference Range]: 454.0 mg/L *HI* (11/01/15 8:09 PM) CRP [<=2.9 mg/L] HEMATOLOGY 1 2 3 Most recent to oldest [Reference Range]: 7.7 K/CMM (11/24/15 4:43 AM) 8.4 K/CMM (11/20/15 12:14 AM) 10.5 K/CMM *HI* (11/16/15 1:06 AM) WBC [3.7-10.4 K/CMM] 2.54 M/CMM *LOW* (11/24/15 4:43 AM) 2.53 M/CMM *LOW* (11/20/15 12:14 AM) 2.64 M/CMM *LOW* (11/16/15 1:06 AM) RBC [4.20-5.40 M/CMM] 7.5 g/dL *LOW* (11/24/15 4:43 AM) 7.4 g/dL *LOW* (11/20/15 12:14 AM) 7.7 g/dL *LOW* (11/16/15 1:06 AM) Hgb [12.0-16.0 g/dL] 23.1 % *LOW* (11/24/15 4:43 AM) 22.7 % *LOW* (11/20/15 12:14 AM) 23.6 % *LOW* (11/16/15 1:06 AM) Hct [36.0-48.0 %] 90.6 fL (11/24/15 4:43 AM) 89.6 fL (11/20/15 12:14 AM) 89.4 fL (11/16/15 1:06 AM) MCV [80.0-98.0 fL] 29.6 pg (11/24/15 4:43 AM) 29.1 pg (11/20/15 12:14 AM) 29.2 pg (11/16/15 1:06 AM) MCH [27.0-31.0 pg] 32.6 g/dL (11/24/15 4:43 AM) 32.5 g/dL (11/20/15 12:14 AM) 32.7 g/dL (11/16/15 1:06 AM) MCHC [32.0-36.0 g/dL] 16.8 % *HI* (11/24/15 4:43 AM) 16.7 % *HI* (11/20/15 12:14 AM) 16.2 % *HI* (11/16/15 1:06 AM) RDW [11.5-14.5 %] 323 K/CMM (11/24/15 4:43 AM) 430 K/CMM (11/20/15 12:14 AM) 567 K/CMM *HI* (11/16/15 1:06 AM) Platelet [133-450 K/CMM] 7.9 fL (11/24/15 4:43 AM) 7.3 fL *LOW* (11/20/15 12:14 AM) 8.0 fL (11/16/15 1:06 AM) MPV [7.4-10.4 fL] 57.3 % (11/24/15 4:43 AM) 53.1 % (11/20/15 12:14 AM) 58.6 % (11/16/15 1:06 AM) Segs [45.0-75.0 %] 0.0 % (11/08/15 4:29 AM) Bands [0.0-11.0 %] 30.0 % (11/24/15 4:43 AM) 35.0 % (11/20/15 12:14 AM) 31.2 % (11/16/15 1:06 AM) Lymphocytes [20.0-40.0 %] 0.0 % (11/08/15 4:29 AM) Atypical Lymphs [<=0.0 %] 8.1 % (11/24/15 4:43 AM) 7.9 % (11/20/15 12:14 AM) 7.8 % (11/16/15 1:06 AM) Monocytes [2.0-12.0 %] 3.5 % (11/24/15 4:43 AM) 2.5 % (11/20/15 12:14 AM) 1.7 % (11/16/15 1:06 AM) Eosinophils [0.0-4.0 %] 1.1 % *HI* (11/24/15 4:43 AM) 1.5 % *HI* (11/20/15 12:14 AM) 0.7 % (11/16/15 1:06 AM) Basophils [0.0-1.0 %] 1.0 % *HI* (11/08/15 4:29 AM) Myelocytes [<=0.0 %] 4.4 K/CMM (11/24/15 4:43 AM) 4.5 K/CMM (11/20/15 12:14 AM) 6.2 K/CMM (11/16/15 1:06 AM) Segs-Bands # [1.5-8.1 K/CMM] 2.3 K/CMM (11/24/15 4:43 AM) 2.9 K/CMM (11/20/15 12:14 AM) 3.3 K/CMM (11/16/15 1:06 AM) Lymphocytes # [1.0-5.5 K/CMM] 0.6 K/CMM (11/24/15 4:43 AM) 0.7 K/CMM (11/20/15 12:14 AM) 0.8 K/CMM (11/16/15 1:06 AM) Monocytes # [0.0-0.8 K/CMM] 0.3 K/CMM (11/24/15 4:43 AM) 0.2 K/CMM (11/20/15 12:14 AM) 0.2 K/CMM (11/16/15 1:06 AM) Eosinophils # [0.0-0.5 K/CMM] 0.1 K/CMM (11/24/15 4:43 AM) 0.1 K/CMM (11/20/15 12:14 AM) 0.1 K/CMM (11/16/15 1:06 AM) Basophils # [0.0-0.2 K/CMM] 1 /100WB *NA* (11/08/15 4:29 AM) NRBC Normal (11/08/15 4:29 AM) RBC Morph See Note 1 (11/08/15 4:29 AM) Plt Morph >100 mm/hr *ABN* (11/01/15 8:09 PM) Sed Rate [0-20 mm/hr] 15.8 seconds *HI* (11/05/15 4:34 AM) 14.9 seconds *HI* (11/01/15 8:09 PM) PT [12.0-14.7 seconds] 1.23 *HI* (11/05/15 4:34 AM) 1.14 (11/01/15 8:09 PM) INR [0.85-1.17] 48.1 seconds *HI* (11/05/15 4:34 AM) 34.3 seconds (11/01/15 8:09 PM) PTT [22.9-35.8 seconds] 1Result Comment: Due to occassional clumps, the actual count may be slightly higher. Immunizations No data available for this section Procedures Procedure Date Related Diagnosis Body Site Amputation1 section 12 toes in R foot Social History Social History Type Response Substance Abuse Use: None. Alcohol Never Smoking Status Never smoker; Type: Cigaret rosie; Exposure to Tobacco Smoke None; Cigarette Smoking Last 365 Days No; Reg Smoking C essation Counseling No Assessment and Plan Extracted from: Title: Hospitalist Progress Note Author: Darrion Davis MD Date: 11/27/15 [...] units AC 4.History of CHF (congestive heart jigar lure) no evidence of exacerbation, continue coreg, and asa/statin holding lasix give aldo c dehydration 5.Possible CKD FENA suggestive of prerenal cr improved ALDO resolving c IVFs 6.Anxiety continue sertraline, prn [...] with Dr. Fernandez in 2 weeks Call [phone] for appointment. Follow up with Dr. Holley Primary care physician Extracted from: Title: Ortho Foot and ankle pre-op Author: Carrington Birmingham Date: 11/05/15 note Ortho Foot and Ankle Pre-op Note Date [...] ex-fix placement Right foot Angelo Birmingham M.D. MSO #[id number] p [id number] [id number] Orthopaedic Surgery Extracted from: Title: Hospitalist History and Author: Darrion Wolf DO Date: 11/02/15 Physical Assessment/Plan Patient is a 40 year old [...] above. add statin. no chandler/arb 2/2 possible ALDO. Ordered: aspirin 81 mg tablet, enteric coated, [...] 1 gm, Route: IVPB, Drug form: INJ, [id number], Dosing Weight 117.273, kg, (CrCl 30 - [...] Q6H, Dosing Weight 117.273, kg, PRN Nausea & Vomiting, Start date: 11/02/15 4:08:00 CDT, Duration: [...] improvement anticipated los is > 3 [place] [facility]UT primary. please page Dr. Peacock with any further questions
--- OUTSIDE RECORDS SUMMARY | 2019-09-10 20:13 | XMS REPORT | Summary of Care ---
Author Author [facility] Organization [facility] Address Unknown Phone Unavailable Encounter PRIMITIVO Mariano(SANIGTA) [id number] Date(s): 05/29/16 - 05/30/16 [facility] [address] [employer] provided by [employer] [facility] [place] [address]- Discharge Diagnosis: Leg pain Discharge Disposition: Home or Self Care Attending Physician: Angelo Hollis MD Vital Signs 1 2 3 Most recent to oldest [Reference Range]: 170.18 cm (05/29/16 6:35 PM) Height 97.5 DegF (05/30/16 2:27 AM) 98.7 DegF (05/29/16 10:15 PM) 98.5 DegF (05/29/16 6:35 PM) Temperature Oral [96.4-99.1 DegF] 158/89 mmHg *HI* (05/30/16 2:27 AM) 162/88 mmHg *HI* (05/30/16 1:00 AM) 158/85 mmHg *HI* (05/30/16 12:00 AM) Blood Pressure [90-140/60-90 mmHg] 23 BRMIN *HI* (05/30/16 2:27 AM) 14 BRMIN (05/30/16 1:00 AM) 10 BRMIN *LOW* (05/30/16 12:00 AM) Respiratory Rate [14-20 BRMIN] 120 bpm *HI* (05/29/16 6:35 PM) Peripheral Pulse Rate [60-100 bpm] 117.273 kg (05/29/16 6:35 PM) Weight 40.49 m2 (05/29/16 6:35 PM) Body Mass Index Problem List Condition [...] Substance Reaction Severity Status NKDA Active Medications gabapentin 300 mg oral capsule 300 mg = 1 cap, PO, TID, # 90 cap, 0 Refill(s) Start Date: 05/30/16 Status: Ordered hydromorphone 1 mg, 0.5 mL, Route: IVP, Drug form: INJ, ONCE, Dosing Weight 117.273, kg, PRN P ain Score 6-10, Priority: STAT, Start date: 05/29/16 21:36:00 [employer] Notes: Same as Dilaudid Start Date: 05/29/16 Stop Date: 05/29/16 Status: Completed hydromorphone 1 mg, 0.5 mL, Route: IVP, Drug form: INJ, ONCE, Dosing Weight 117.273, kg, Prior ity: STAT, Start date: 05/29/16 21:35:00 [employer], Stop date: 05/29/16 21:35:00 [employer] Notes: Same as Dilaudid Start Date: 05/29/16 Stop Date: 05/29/16 Status: Completed hydromorphone 1 mg, 0.5 mL, Route: IVP, Drug form: INJ, ONCE, Dosing Weight 117.273, kg, Prior ity: STAT, Start date: 05/29/16 18:57:00 [employer], Stop date: 05/29/16 18:57:00 [employer] Notes: Same as: Dilaudid Start Date: 05/29/16 Stop Date: 05/29/16 Status: Completed Lasix 80 mg, 8 mL, Route: IVP, Drug form: INJ, ONCE, Dosing Weight 117.273, kg, Priori ty: STAT, Start date: 05/29/16 19:39:00 [employer], Stop date: 05/29/16 19:39:00 [employer] Notes: (Same as: Lasix) MEDICATION WASTE Product Size: 40 mgProduct Was savana: 0 mg Start Date: 05/29/16 Stop Date: 05/29/16 Status: Completed Lasix 20 mg oral tablet 20 mg = 1 tab, PO, BID, # 30 tab, 1 Refill(s) Start Date: 05/30/16 Status: Ordered Driscoll 10/325 oral tablet 1 tab, Route: PO, Drug Form: TAB, Dosing Weight 117.273, kg, ONCE, STAT, Start d ate: 05/29/16 18:58:00 [employer], Stop date: 05/29/16 18:58:00 [employer] Notes: Do not exceed 4gm/day of acetaminophen. (Same as: Driscoll 325/10) Start Date: 05/29/16 Stop Date: 05/29/16 Status: Completed Phenergan 25 mg, 1 mL, Route: IVPB, Drug form: INJ, ONCE, Dosing Weight 117.273, kg, Prior ity: STAT, Start date: 05/29/16 19:38:00 [employer], Stop date: 05/29/16 19:38:00 [employer] Notes: Do not give IV push. (Same as: Phenergan) Start Date: 05/29/16 Stop Date: 05/29/16 Status: Completed Results ELECTROLYTES Most recent to 1 oldest [Reference Range]: Sodium Lvl [135-145 138 mEq/L mEq/L] (05/29/16 7:31 PM) Potassium Lvl 4.9 mEq/L [3.5-5.1 mEq/L] (05/29/16 7:31 PM) Chloride Lvl [95-109 107 mEq/L mEq/L] (05/29/16 7:31 PM) CO2 [24-32 mEq/L] 20 mEq/L *LOW* (05/29/16 7:31 PM) AGAP [10.0-20.0 15.9 mEq/L mEq/L] (05/29/16 7:31 PM) CHEM PANEL Most recent to 1 oldest [Reference Range]: Creatinine Lvl 2.71 mg/dL [0.50-1.40 mg/dL] *HI* (05/29/16 7:31 PM) eGFR 24 mL/min/1.73m2 1 *NA* (05/29/16 7:31 PM) BUN [7-22 mg/dL] 26 mg/dL *HI* (05/29/16 7:31 PM) Glucose Lvl [70-99 158 mg/dL mg/dL] *HI* (05/29/16 7:31 PM) Total Protein 6.0 g/dL [6.4-8.4 g/dL] *LOW* (05/29/16 731 PM) Albumin Lvl [3.5-5.0 1.5 g/dL g/dL] *LOW* (05/29/16 PM) Globulin [2.7-4.2 4.5 g/dL g/dL] *HI* (05/29/1631 PM) A/G Ratio [0.7-1.6] 0.3 *LOW* (05/29/16 PM) Calcium Lvl 7.9 mg/dL [8.5-10.5 mg/dL] *LOW* (05/29/16 PM) ALT [0-65 unit/L] 9 unit/L (05/29/16 PM) AST [0-37 unit/L] 10 unit/L (05/29/16 PM) Alk Phos [39-136 118 unit/L unit/L] (05/29/16:31 PM) Bili Total [0.2-1.3 0.2 mg/dL mg/dL] (05/29/1631 PM) Bili Direct [0.0-0.3 <0.05 mg/dL mg/dL] (05/29/16 7:31 PM) Bili Indirect See Note 2 [0.0-1.0] (05/29/1631 PM) Lipase Lvl [73-393 89 unit/L unit/L] (05/29/16 731 PM) Lactic Acid WB 1.3 mmol/L [0.5-2.2 mmol/L] (05/29/16 7:31 PM) 1Result Comment: The eGFR is calculated [...] tiplied by the estimated BMI. 2Result Comment: Bili Indirect cannot be calculated due to low analyte value CARDIAC ENZYMES Most recent to 1 oldest [Reference Range]: Total CK [12-191 131 unit/L unit/L] (05/29/16 7:31 PM) Troponin-I 0.02 ng/mL [0.00-0.40 ng/mL] (05/29/16 7:31 PM) URINE AND STOOL Most recent to 1 oldest [Reference Range]: UA Turbidity [Clear] Slight Cloudy (05/29/16 11:38 PM) UA Color [Yellow] Yellow *NA* (05/29/16 11:38 PM) UA pH [5.0-8.0] 6.0 (05/29/16 11:38 PM) UA Spec Grav 1.020 [<=1.030] (05/29/16 11:38 PM) UA Glucose [Negative 100 mg/dL mg/dL] *ABN* (05/29/16 11:38 PM) UA Blood [Negative] Trace *ABN* (05/29/16 11:38 PM) UA Ketones Negative [Negative] *NA* (05/29/16 11:38 PM) UA Protein [Negative >=300 mg/dL mg/dL] *ABN* (05/29/16 11:38 PM) UA Urobilinogen 0.2 EU/dL [0.1-1.0 EU/dL] (05/29/16 11:38 PM) UA Bili [Negative] Negative *NA* (05/29/16 11:38 PM) UA Leuk Est Negative [Negative] (05/29/16 11:38 PM) UA Nitrite Negative [Negative] (05/29/16 11:38 PM) UA WBC [None Seen 0-2 /HPF /HPF] (05/29/16 11:38 PM) UA RBC [0-2 /HPF] 0-2 /HPF (05/29/16 11:38 PM) UA Bacteria [None Moderate /HPF Seen /HPF] (05/29/16 11:38 PM) UA Sq Epi [Few /LPF] Few /LPF (05/29/16 11:38 PM) UA Amorph Tamera [None Occasional /HPF Seen /HPF] *ABN* (05/29/16 11:38 PM) IMMUNOLOGY Most recent to 1 oldest [Reference Range]: CRP [<=2.9 mg/L] 7.6 mg/L *HI* (05/29/16 10:09 PM) HEMATOLOGY Most recent to 1 oldest [Reference Range]: WBC [3.7-10.4 K/CMM] 7.0 K/CMM (05/29/16 7:31 PM) RBC [4.20-5.40 3.27 M/CMM M/CMM] *LOW* (05/29/16 7:31 PM) Hgb [12.0-16.0 g/dL] 9.2 g/dL *LOW* (05/29/16 7:31 PM) Hct [36.0-48.0 %] 28.7 % *LOW* (05/29/16 7:31 PM) MCV [80.0-98.0 fL] 87.8 fL (05/29/16 7:31 PM) MCH [27.0-31.0 pg] 28.3 pg (05/29/16 7:31 PM) MCHC [32.0-36.0 32.2 g/dL g/dL] (05/29/16 7:31 PM) RDW [11.5-14.5 %] 16.4 % *HI* (05/29/16 7:31 PM) Platelet [133-450 325 K/CMM K/CMM] (05/29/16 7:31 PM) MPV [7.4-10.4 fL] 8.5 fL (05/29/16 7:31 PM) Segs [45.0-75.0 %] 52.0 % (05/29/16 7:31 PM) Lymphocytes 38.2 % [20.0-40.0 %] (05/29/16 7:31 PM) Monocytes [2.0-12.0 6.5 % %] (05/29/16 7:31 PM) Eosinophils [0.0-4.0 2.2 % %] (05/29/16 7:31 PM) Basophils [0.0-1.0 1.1 % %] *HI* (05/29/16 7:31 PM) Segs-Bands # 3.6 K/CMM [1.5-8.1 K/CMM] (05/29/16 7:31 PM) Lymphocytes # 2.7 K/CMM [1.0-5.5 K/CMM] (05/29/16 7:31 PM) Monocytes # [0.0-0.8 0.5 K/CMM K/CMM] (05/29/16 7:31 PM) Eosinophils # 0.2 K/CMM [0.0-0.5 K/CMM] (05/29/16 7:31 PM) Basophils # [0.0-0.2 0.1 K/CMM K/CMM] (05/29/16 7:31 PM) Sed Rate [0-20 >100 mm/hr mm/hr] *ABN* (05/29/16 10:09 PM) Immunizations Given and Recorded Vaccine Date [...]
--- OUTSIDE RECORDS SUMMARY | 2019-09-10 20:13 | XMS REPORT | Summary of Care ---
Author Author [facility] Organization [facility] Address Unknown Phone Unavailable Encounter PRIMITIVO Mariano(SANGITA) [id number] Date(s): 04/19/16 - 04/19/16 [facility] [address] [employer] provided by [employer] [place] [address]- Discharge Diagnosis: LUQ abdominal pain Discharge Disposition: Home or Self Care Attending Physician: Narda Martinez MD Vital Signs 1 2 3 Most recent to oldest [Reference Range]: 170.18 cm (04/19/16 7:46 AM) Height 98 DegF (04/19/16 2:57 PM) 98.2 DegF (04/19/16 7:46 AM) Temperature Oral [96.4-99.1 DegF] 166/111 mmHg *HI* (04/19/16 2:57 PM) 196/117 mmHg *HI* (04/19/16 1:50 PM) 189/105 mmHg *HI* (04/19/16 11:50 AM) Blood Pressure [90-140/60-90 mmHg] 18 BRMIN (04/19/16 2:57 PM) 18 BRMIN (04/19/16 1:50 PM) 20 BRMIN (04/19/16 11:50 AM) Respiratory Rate [14-20 BRMIN] 108 bpm *HI* (04/19/16 7:46 AM) Peripheral Pulse Rate [60-100 bpm] 117.273 kg (04/19/16 7:46 AM) Weight 40.49 m2 (04/19/16 7:46 AM) Body Mass Index Problem List Condition Effective Dates Status Health Status Informan t CHF - Congestive Active heart failure(Confirmed) DM (diabetes Active mellitus)(Confirmed) HTN - Active Hypertension(Confirm ed) Klebsiella(Confirmed Active )1 MRSA(Confirmed)2, 3, 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 2right foot aspirate - 02/23/16 3nares - 02/19/16 4Problem added by Discern Expert. Allergies, Adverse Reactions, Alerts Substance Reaction Severity Status NKDA Active Medications morphine Sulfate 4 mg, Route: IVP, ONCE, Dosing Weight 117.273, kg, Priority: STAT, Start date: 1 06/20/15 9:14:00 [employer], Stop date: 04/19/16 9:14:00 [employer] Start Date: 04/19/16 Stop Date: 04/19/16 Status: Completed morphine Sulfate 4 mg, 1 mL, Route: IVP, Drug form: INJ, ONCE, Dosing Weight 117.273, kg, Priorit y: STAT, Start date: 04/19/16 10:30:00 [employer], Stop date: 04/19/16 10:30:00 [employer] Notes: (Same as:MORPhine Sulfate) Start Date: 04/19/16 Stop Date: 04/19/16 Status: Completed morphine Sulfate 4 mg, 1 mL, Route: IVP, Drug form: INJ, ONCE, Dosing Weight 117.273, kg, Priorit y: STAT, Start date: 04/19/16 8:21:00 [employer], Stop date: 04/19/16 8:21:00 [employer] Notes: (Same as:MORPhine Sulfate) Start Date: 04/19/16 Stop Date: 04/19/16 Status: Completed ondansetron 4 mg, 2 mL, Route: IVP, Drug form: INJ, ONCE, Dosing Weight 117.273, kg, Priorit y: STAT, Start date: 04/19/16 8:21:00 [employer], Stop date: 04/19/16 8:21:00 [employer] Notes: (Same as: Zofran) MEDICATION WASTE Product Size: 4 mgProduct Was savana: ___ mg Start Date: 04/19/16 Stop Date: 04/19/16 Status: Completed Saline Flush 0.9% 10 mL, Route: IVP, Drug Form: INJ, Dosing Weight 117.273, kg, PRN, PRN Line Flus h, Start date: 04/19/16 8:21:00 [employer], Duration: 30 day, Stop date: 05/19/16 8:20: 00 [employer] Notes: (Same as: BD Posiflush) Start Date: 04/19/16 Stop Date: 04/19/16 Status: Discontinued Sodium Chloride 0.9% (Bolus) IV 1,000 mL, 2,000 ml/hr, Infuse Over: 30 minutes, Route: IV, 1,000, Drug form: INJ , ONCE, Priority: STAT, Dosing Weight 117.273 kg, Start date: 04/19/16 8:21:[address], Duration: 1 doses or times, Stop date: 04/19/16 8:21:00 [employer] Start Date: 04/19/16 Stop Date: 04/19/16 Status: Completed Zofran ODT 4 mg oral tablet, disintegrating 4 mg = 1 tab, PO, TID, Dissolve tab under tongue, X 1 day, # 3 tab, 0 Refill(s) Start Date: 04/19/16 Stop Date: 04/20/16 Status: Completed Results ELECTROLYTES Most recent to 1 oldest [Reference Range]: Sodium Lvl [135-145 139 mEq/L mEq/L] (04/19/16 10:26 AM) Potassium Lvl 4.6 mEq/L 1 [3.5-5.1 mEq/L] (04/19/16 10:26 AM) Chloride Lvl [95-109 105 mEq/L mEq/L] (04/19/16 10:26 AM) CO2 [24-32 mEq/L] 22 mEq/L *LOW* (04/19/16 10:26 AM) AGAP [10.0-20.0 16.6 mEq/L mEq/L] (04/19/16 10:26 AM) 1Result Comment: Specimen Slightly Hemolyzed. CHEM PANEL Most recent to 1 oldest [Reference Range]: Creatinine Lvl 2.42 mg/dL [0.50-1.40 mg/dL] *HI* (04/19/16 10:26 AM) eGFR 28 mL/min/1.73m2 1 *NA* (04/19/16 10:26 AM) BUN [7-22 mg/dL] 14 mg/dL (04/19/16 10:26 AM) Glucose Lvl [70-99 172 mg/dL mg/dL] *HI* (04/19/16 10:26 AM) Total Protein 8.0 g/dL [6.4-8.4 g/dL] (04/19/16 10:26 AM) Albumin Lvl [3.5-5.0 1.4 g/dL g/dL] *LOW* (04/19/16 10:26 AM) Globulin [2.7-4.2 6.6 g/dL g/dL] *HI* (04/19/16 10:26 AM) A/G Ratio [0.7-1.6] 0.2 *LOW* (04/19/16 10:26 AM) Calcium Lvl 7.8 mg/dL [8.5-10.5 mg/dL] *LOW* (04/19/16 10: AM) Phosphorus [2.5-4.5 4.4 mg/dL mg/dL] (04/19/16 10:26 AM) Magnesium Lvl 1.6 mg/dL [1.8-2.4 mg/dL] *LOW* (04/19/16 10:26 AM) ALT [0-65 unit/L] 15 unit/L (04/19/16 10:26 AM) AST [0-37 unit/L] 44 unit/L *HI* (04/19/16 10:26 AM) Alk Phos [39-136 187 unit/L unit/L] *HI* (04/19/16 10:26 AM) Bili Total [0.2-1.3 0.5 mg/dL mg/dL] (04/19/16 10:26 AM) Bili Direct [0.0-0.3 0.1 mg/dL mg/dL] (04/19/16 10:26 AM) Bili Indirect 0.4 mg/dL [0.0-1.0 mg/dL] (04/19/16 10:26 AM) Lipase Lvl [73-393 132 unit/L unit/L] (04/19/16 10:26 AM) Lactic Acid WB 0.9 mmol/L [0.5-2.2 mmol/L] (04/19/16 8:42 AM) 1Result Comment: The eGFR is calculated [...] [Reference Range]: Troponin-I <0.02 ng/mL [0.00-0.40 ng/mL] (04/19/16 10:26 AM) URINE AND STOOL Most recent to 1 oldest [Reference Range]: UA Turbidity [Clear] Clear (04/19/16 11:02 AM) UA Color [Yellow] Yellow *NA* (04/19/16 11:02 AM) UA pH [5.0-8.0] 7.0 (04/19/16 11:02 AM) UA Spec Grav 1.020 [<=1.030] (04/19/16 11:02 AM) UA Glucose [Negative 500 mg/dL mg/dL] *ABN* (04/19/16 11:02 AM) UA Blood [Negative] Moderate *ABN* (04/19/16 11:02 AM) UA Ketones Negative [Negative] *NA* (04/19/16 11:02 AM) UA Protein [Negative >=300 mg/dL mg/dL] *ABN* (04/19/16 11:02 AM) UA Urobilinogen 0.2 EU/dL [0.1-1.0 EU/dL] (04/19/16 11:02 AM) UA Bili [Negative] Negative *NA* (04/19/16 11:02 AM) UA Leuk Est Negative [Negative] (04/19/16 11:02 AM) UA Nitrite Negative [Negative] (04/19/16 11:02 AM) UA WBC [None Seen 3-5 /HPF /HPF] (04/19/16 11:02 AM) UA RBC [0-2 /HPF] 6-10 /HPF *ABN* (04/19/16 11:02 AM) UA Bacteria rare *NA* (04/19/16 11:02 AM) UA Sq Epi [Few /LPF] Few /LPF (04/19/16 11:02 AM) UA Rock Yeast rare *NA* (04/19/16 11:02 AM) HEMATOLOGY Most recent to 1 oldest [Reference Range]: WBC [3.7-10.4 K/CMM] 9.0 K/CMM (04/19/16 8:42 AM) RBC [4.20-5.40 3.55 M/CMM M/CMM] *LOW* (04/19/16 8:42 AM) Hgb [12.0-16.0 g/dL] 9.8 g/dL *LOW* (04/19/16 8:42 AM) Hct [36.0-48.0 %] 29.4 % *LOW* (04/19/16 8:42 AM) MCV [80.0-98.0 fL] 82.8 fL (04/19/16 8:42 AM) MCH [27.0-31.0 pg] 27.7 pg (04/19/16 8:42 AM) MCHC [32.0-36.0 33.4 g/dL g/dL] (04/19/16 8:42 AM) RDW [11.5-14.5 %] 17.1 % *HI* (04/19/16 8:42 AM) Platelet [133-450 556 K/CMM K/CMM] *HI* (04/19/16 8:42 AM) MPV [7.4-10.4 fL] 8.2 fL (04/19/16 8:42 AM) Segs [45.0-75.0 %] 59.3 % (04/19/16 8:42 AM) Lymphocytes 32.0 % [20.0-40.0 %] (04/19/16 8:42 AM) Monocytes [2.0-12.0 6.8 % %] (04/19/16 8:42 AM) Eosinophils [0.0-4.0 1.2 % %] (04/19/16 8:42 AM) Basophils [0.0-1.0 0.7 % %] (04/19/16 8:42 AM) Segs-Bands # 5.3 K/CMM [1.5-8.1 K/CMM] (04/19/16 8:42 AM) Lymphocytes # 2.9 K/CMM [1.0-5.5 K/CMM] (04/19/16 8:42 AM) Monocytes # [0.0-0.8 0.6 K/CMM K/CMM] (04/19/16 8:42 AM) Eosinophils # 0.1 K/CMM [0.0-0.5 K/CMM] (04/19/16 8:42 AM) Basophils # [0.0-0.2 0.1 K/CMM K/CMM] (04/19/16 8:42 AM) Immunizations Given and Recorded Vaccine Date [...]
--- OUTSIDE RECORDS SUMMARY | 2019-09-10 20:13 | XMS REPORT | Summary of Care ---
Author Author [facility] Organization [facility] Address Unknown Phone Unavailable Encounter PRIMITIVO Mariano(SANGITA) [id number] Date(s): 02/19/16 - 02/25/16 [facility] [address] [employer] provided by [facility] [place] [address]- Discharge Disposition: Home or Self Care Attending Physician: Royer Collado MD Admitting Physician: Don Oreilly MD Vital Signs 1 2 3 Most recent to oldest [Reference Range]: 170.18 cm (02/19/16 11:14 PM) 170.18 cm (02/19/16 5:14 PM) Height 119.091 kg (02/20/16 5:00 AM) Current Weight 98.6 DegF (02/25/16 7:54 PM) 98.1 DegF (02/25/16 4:09 PM) 98.4 DegF (02/25/16 12:05 PM) Temperature Oral [96.4-99.1 DegF] 157/83 mmHg *HI* (02/25/16 7:54 PM) 143/84 mmHg *HI* (02/25/16 4:09 PM) 144/80 mmHg *HI* (02/25/16 12:05 PM) Blood Pressure [90-140/60-90 mmHg] 20 BRMIN (02/25/16 7:54 PM) 20 BRMIN (02/25/16 4:09 PM) 19 BRMIN (02/25/16 12:05 PM) Respiratory Rate [14-20 BRMIN] 104 bpm *HI* (02/25/16 7:54 PM) 95 bpm (02/25/16 4:09 PM) 98 bpm (02/25/16 12:05 PM) Peripheral Pulse Rate [60-100 bpm] 125.057 kg (02/19/16 11:14 PM) 112.727 kg (02/19/16 5:14 PM) Weight 43.18 m2 (02/19/16 11:14 PM) 38.92 m2 (02/19/16 5:14 PM) Body Mass Index Problem List Condition Effective Dates Status Health Status Informan t CHF - Congestive Active heart failure(Confirmed) DM (diabetes Active mellitus)(Confirmed) HTN - Active Hypertension(Confirm ed) MRSA(Confirmed)1, 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 Allergies, Adverse Reactions, Alerts Substance Reaction Severity Status NKDA Active Medications amLODIPine 10 mg, 1 tab, Route: PO, Drug form: TAB, Daily, Dosing Weight 112.727, kg, Start date: 02/20/16 9:00:00 CDT, Duration: 30 day, Stop date: 03/20/16 9:00:00 [employer] Notes: (Same as: Norvasc) Start Date: 02/20/16 Stop Date: 02/25/16 Status: Discontinued aspirin 81 mg tablet, enteric coated 81 mg, 1 tab, Route: PO, Drug form: ECTAB, Daily, Dosing Weight 112.727, kg, Sta rt date: 02/20/16 9:00:00 CDT, Duration: 30 day, Stop date: 03/20/16 9:00:00 [employer] Notes: Do not crush or chew.(Same As: Ecotrin) Start Date: 02/20/16 Stop Date: 02/25/16 Status: Discontinued atorvastatin 40 mg, 1 tab, Route: PO, Drug form: TAB, Bedtime, Dosing Weight 112.727, kg, Sta rt date: 02/20/16 21:00:00 CDT, Duration: 30 day, Stop date: 03/20/16 21:00:[address] Notes: (Same as: Lipitor) Start Date: 02/20/16 Stop Date: 02/25/16 Status: Discontinued Bactrim DS 800 mg- 160 mg oral tablet 1 tab, Route: PO, Drug Form: TAB, Dosing Weight 125.057, kg, [id number], Start date : 02/20/16 7:00:00 CDT, Duration: 30 day, Stop date: 03/20/16 19:00:00 [employer] Notes: One DS tablet = trimethoprim 160mg + sulfamethoxazole 800 mgDose based on trimethoprim component On empty stomach with a glass of water. 1 hr before me als (Same As: Bactrim DS, Septra DS) Start Date: 02/20/16 Stop Date: 02/24/16 Status: Discontinued calcium carbonate 500 mg (200 mg elemental calcium) oral tablet 500 mg, 1 tab, Route: PO, Drug form: CHEWTAB, PRN, Dosing Weight 112.727, kg, [place] N Abnormal Lab Result, FOR ICU USE ONLY, Start date: 02/19/16 22:32:00 CDT, Dura tion: 30 day, Stop date: 03/20/16 21:31:00 [employer] Notes: (Same As: Florecita)Calcium Carbonate 500 mg = 200 mg elemental calcium Dose = mg calcium carbonate ( mg elemental calcium) Start Date: 02/19/16 Stop Date: 02/21/16 Status: Discontinued calcium carbonate 500 mg (200 mg elemental calcium) oral tablet 1,000 mg, 2 tab, Route: PO, Drug form: CHEWTAB, PRN, Dosing Weight 112.727, kg, PRN Abnormal Lab Result, FOR ICU USE ONLY, Start date: 02/19/16 22:32:00 CDT, Du ration: 30 day, Stop date: 03/20/16 21:31:00 [employer] Notes: (Same As: Florecita)Calcium Carbonate 500 mg = 200 mg elemental calcium Dose = mg calcium carbonate ( mg elemental calcium) Start Date: 02/19/16 Stop Date: 02/21/16 Status: Discontinued calcium gluconate + sodium chloride 0.9% INJ 50 mL 1 gm, 10 mL, Route: IVPB, PRN, Dosing Weight 112.727, kg, PRN Abnormal Lab Resul t, Start date: 02/19/16 22:32:00 CDT, Duration: 30 day, Stop date: 03/20/16 21:3 1:00 [employer] LE[employer], FOR ICU USE ONLY Notes: WASTE: F/P - Sink; E - Municipal Trash Bin Start Date: 02/19/16 Stop Date: 02/21/16 Status: Discontinued carvedilol 25 mg, 1 tab, Route: PO, Drug form: TAB, ONCE, Dosing Weight 125.057, kg, Start date: 02/20/16 3:01:00 CDT, Stop date: 02/20/16 3:01:00 CDT Notes: Give with food. (Same As: Coreg) Start Date: 02/20/16 Stop Date: 02/20/16 Status: Completed carvedilol 25 mg, 1 tab, Route: PO, Drug form: TAB, BID, Dosing Weight 112.727, kg, Start d ate: 02/20/16 9:00:00 CDT, Duration: 30 day, Stop date: 03/20/16 17:00:00 [employer] Notes: Give with food. (Same As: Coreg) Start Date: 02/20/16 Stop Date: 02/25/16 Status: Discontinued cyclobenzaprine 10 mg oral tablet 10 mg = 1 tab, PO, TID, PRN Spasm, X 14 day, # 42 tab, 0 Refill(s) Start Date: 02/25/16 Stop Date: 03/10/16 Status: Ordered Dextrose 50% Syringe 12.5 gm, 25 mL, Route: IVP, Drug Form: INJ, Dosing Weight 125.057, kg, PRN, PRN Blood Glucose Results, Start date: 02/21/16 10:13:00 CDT, Duration: 30 day, Stop date: 03/22/16 9:12:00 [employer] Start Date: 02/21/16 Stop Date: 02/25/16 Status: Discontinued Dextrose 50% Syringe 25 gm, 50 mL, Route: IVP, Drug Form: INJ, Dosing Weight 125.057, kg, PRN, PRN Bl ood Glucose Results, Start date: 02/21/16 10:13:00 CDT, Duration: 30 day, Stop d ate: 03/22/16 9:12:00 [employer] Start Date: 02/21/16 Stop Date: 02/25/16 Status: Discontinued Dextrose 50% Syringe 12.5 gm, 25 mL, Route: IVP, Drug Form: INJ, Dosing Weight 112.727, kg, PRN, PRN Blood Glucose Results, Start date: 02/19/16 23:01:00 CDT, Duration: 30 day, Stop date: 03/20/16 22:00:00 [employer] Start Date: 02/19/16 Stop Date: 02/21/16 Status: Discontinued Dextrose 50% Syringe 25 gm, 50 mL, Route: IVP, Drug Form: INJ, Dosing Weight 112.727, kg, PRN, PRN Bl ood Glucose Results, Start date: 02/19/16 23:01:00 CDT, Duration: 30 day, Stop d ate: 03/20/16 22:00:00 [employer] Start Date: 02/19/16 Stop Date: 02/21/16 Status: Discontinued docusate-senna 50 mg-8.6 mg oral tablet 2 tab, Route: PO, Drug Form: TAB, Dosing Weight 125.057, kg, BID, Start date: 9:00:00 CDT, Duration: 30 day, Stop date: 03/21/16 17:00:00 [employer] Notes: (Same as Sandraot-S) Equiv. to Autumn-Colace. Start Date: 02/21/16 Stop Date: 02/25/16 Status: Discontinued ferrous sulfate 325 mg, 1 tab, Route: PO, Drug form: TAB, BID, Dosing Weight 125.057, kg, Start date: 02/21/16 17:00:00 CDT, Duration: 30 day, Stop date: 03/22/16 9:00:00 [employer] Notes: Give with food.iron elemental 27at=195su as ferrous sulfateDose=___mg marce mental iron Start Date: 02/21/16 Stop Date: 02/25/16 Status: Discontinued Flexeril 10 mg, 1 tab, Route: PO, Drug form: TAB, TID, Dosing Weight 125.057, kg, PRN Spa sm, Start date: 02/22/16 10:39:00 CDT, Duration: 30 day, Stop date: 03/23/16 10: 38:00 [employer] Notes: (Same As: Flexeril) Start Date: 02/22/16 Stop Date: 02/25/16 Status: Discontinued Flexeril 10 mg, 2 tab, Route: PO, Drug form: TAB, ONCE, Dosing Weight 125.057, kg, PRN Sp asm, Start date: 02/21/16 9:15:00 CDT Notes: Same as Flexeril Start Date: 02/21/16 Stop Date: 02/21/16 Status: Completed furosemide 20 mg, 2 mL, Route: IV, Drug form: INJ, Daily, Dosing Weight 125.057, kg, Start date: 02/20/16 9:00:00 CDT, Duration: 2 day, Stop date: 02/21/16 9:00:00 CDT Notes: (Same as: Lasix) Start Date: 02/20/16 Stop Date: 02/21/16 Status: Completed furosemide 20 mg oral tablet 20 mg = 1 tab, PO, BID, # 60 tab, 0 Refill(s) Start Date: 02/25/16 Stop Date: 03/26/16 Status: Ordered furosemide 20 mg oral tablet 20 mg, 1 tab, Route: PO, Drug form: TAB, BID, Dosing Weight 112.727, kg, Start d ate: 02/20/16 9:00:00 CDT, Duration: 30 day, Stop date: 03/20/16 17:00:00 [employer] Start Date: 02/20/16 Stop Date: 02/19/16 Status: Canceled gabapentin 300 mg oral capsule 300 mg, 1 cap, Route: PO, Drug form: CAP, TID, Dosing Weight 112.727, kg, Start date: 02/24/16 13:00:00 CDT, Duration: 30 day, Stop date: 03/25/16 9:00:00 [employer] Notes: (Same as: Neurontin) Start Date: 02/24/16 Stop Date: 02/25/16 Status: Discontinued gabapentin 300 mg oral capsule 300 mg, 1 cap, Route: PO, Drug form: CAP, BID, Dosing Weight 112.727, kg, Start date: 02/20/16 9:00:00 CDT, Duration: 30 day, Stop date: 03/20/16 17:00:00 [employer] Notes: (Same as: Neurontin) Start Date: 02/20/16 Stop Date: 02/24/16 Status: Discontinued gabapentin 300 mg oral capsule 300 mg = 1 cap, PO, Q12H, # 60 cap, 0 Refill(s) Start Date: 02/25/16 Stop Date: 03/26/16 Status: Ordered glucagon 1 mg, Route: IM, Drug form: PDR/INJ, PRN, Dosing Weight 125.057, kg, PRN Blood G lucose Results, Start date: 02/21/16 10:13:00 CDT, Duration: 30 day, Stop date: 03/22/16 9:12:00 [employer] Start Date: 02/21/16 Stop Date: 02/25/16 Status: Discontinued glucagon 1 mg, Route: IM, Drug form: PDR/INJ, PRN, Dosing Weight 112.727, kg, PRN Blood G lucose Results, Start date: 02/19/16 23:01:00 CDT, Duration: 30 day, Stop date: 03/20/16 22:00:00 [employer] Start Date: 02/19/16 Stop Date: 02/21/16 Status: Discontinued Heparin - one time bolus for DVT/PE 6,600 unit, Route: IVP, Drug form: INJ, ONCE, Dosing Weight 112.727, kg, Priorit y: STAT, Start date: 02/19/16 18:27:00 CDT, Stop date: 02/19/16 18:27:00 CDT Start Date: 02/19/16 Stop Date: 02/19/16 Status: Completed Heparin 40 unit/kg Bolus (Heparin Dosing Weight) Route: IVP, PRN, 3,300 unit, 3.3 mL, Drug form: INJ, PRN, Heparin Protocol, Star t date: 02/19/16 18:27:00 CDT Stop date: 03/20/16 17:26:00 [employer], 30 day Start Date: 02/19/16 Stop Date: 02/21/16 Status: Discontinued heparin 5000 units/mL injectable solution 5,000 unit, 1 mL, Route: SUB-Q, Drug form: INJ, Q8H, Dosing Weight 125.057, kg, Start date: 02/20/16 16:00:00 CDT, Duration: 30 day, Stop date: 03/21/16 8:00:00 [employer] LE[employer] Notes: porcine heparin Start Date: 02/20/16 Stop Date: 02/25/16 Status: Discontinued Heparin 80 unit/kg Bolus (Heparin Dosing Weight) Route: IVP, PRN, 6,600 unit, 6.6 mL, Drug form: INJ, PRN, Heparin Protocol, Star t date: 02/19/16 18:27:00 CDT Stop date: 03/20/16 17:26:00 [employer], 30 day Start Date: 02/19/16 Stop Date: 02/21/16 Status: Discontinued heparin additive 25,000 unit [18 unit/kg/hr] + Premix Diluent Dextrose 5% 500 mL 500 mL, Rate: 29.52 ml/hr, Infuse over: 16.9 hr, Route: IV, Dosing Weight 82 kg, Total Volume: 500 mL, Start date: 02/19/16 18:27:00 CDT, Duration: 30 day, Stop date: 03/20/16 18:26:00 [employer] Start Date: 02/19/16 Stop Date: 02/20/16 Status: Discontinued hydrALAZINE 10 mg, 0.5 mL, Route: IV, Drug form: INJ, ONCE, Dosing Weight 125.057, kg, Start date: 02/25/16 7:08:00 CDT, Stop date: 02/25/16 7:08:00 CDT Notes: (Same as: Apresoline)Push over 5 minutes Start Date: 02/25/16 Stop Date: 02/25/16 Status: Completed insulin aspart 10 unit, 0.1 mL, Route: SUB-Q, Drug form: SOLN, TID-Before Meals, Dosing Weight 125.057, kg, PRN Blood Glucose Results, Start date: 02/21/16 10:13:00 CDT, Durat ion: 30 day, Stop date: 03/22/16 10:12:00 [employer] LE[employer] Notes: Roll in palms of hands gently; Do not shake vigorously. (Same as: NovoDONG G)"single patient use only"WASTE: F/P - Black; E - Municipal Trash Bin Stable f or 28 days at room temperature.Expires in days from Date Start Date: 02/21/16 Stop Date: 02/25/16 Status: Discontinued insulin aspart 6 unit, 0.06 mL, Route: SUB-Q, Drug form: SOLN, TID-Before Meals, Dosing Weight 125.057, kg, PRN Blood Glucose Results, Start date: 02/21/16 10:13:00 CDT, Durat ion: 30 day, Stop date: 03/22/16 10:12:00 [employer] LE[employer] Notes: Roll in palms of hands gently; Do not shake vigorously. (Same as: NovoLO G)"single patient use only"WASTE: F/P - Black; E - Municipal Trash Bin Stable f or 28 days at room temperature.Expires in days from Date Start Date: 02/21/16 Stop Date: 02/25/16 Status: Discontinued insulin aspart 2 unit, 0.02 mL, Route: SUB-Q, Drug form: SOLN, TID-Before Meals, Dosing Weight 125.057, kg, PRN Blood Glucose Results, Start date: 02/21/16 10:13:00 CDT, Durat ion: 30 day, Stop date: 03/22/16 10:12:00 [employer] LEAD Notes: Roll in palms of hands gently; Do not shake vigorously. (Same as: NovoDONG G)"single patient use only"WASTE: F/P - Black; E - Municipal Trash Bin Stable f or 28 days at room temperature.Expires in days from Date Start Date: 02/21/16 Stop Date: 02/25/16 Status: Discontinued insulin aspart 8 unit, 0.08 mL, Route: SUB-Q, Drug form: SOLN, TID-Before Meals, Dosing Weight 125.057, kg, PRN Blood Glucose Results, Start date: 02/21/16 10:13:00 CDT, Durat ion: 30 day, Stop date: 03/22/16 10:12:00 [employer] LEAD Notes: Roll in palms of hands gently; Do not shake vigorously. (Same as: NovoDONG G)"single patient use only"WASTE: F/P - Black; E - Municipal Trash Bin Stable f or 28 days at room temperature.Expires in days from Date Start Date: 02/21/16 Stop Date: 02/25/16 Status: Discontinued insulin aspart 4 unit, 0.04 mL, Route: SUB-Q, Drug form: SOLN, TID-Before Meals, Dosing Weight 125.057, kg, PRN Blood Glucose Results, Start date: 02/21/16 10:13:00 CDT, Durat ion: 30 day, Stop date: 03/22/16 10:12:00 [employer] LEAD Notes: Roll in palms of hands gently; Do not shake vigorously. (Same as: NovoLO G)"single patient use only"WASTE: F/P - Black; E - Municipal Trash Bin Stable f or 28 days at room temperature.Expires in days from Date Start Date: 02/21/16 Stop Date: 02/25/16 Status: Discontinued Insulin regular 5 unit, 0.05 mL, Route: SUB-Q, Drug form: SOLN, TID-Before Meals, Dosing Weight 112.727, kg, PRN Blood Glucose Results, Start date: 02/19/16 23:01:00 CDT, Durat ion: 30 day, Stop date: 03/20/16 23:00:00 [employer] LE[employer] Notes: (Same as: Humulin R) Roll in palms of hands gently; Do not shake vigorou sly. "single patient use only"(Restricted to patients requiring a dose > 60 units)WASTE: F/P - Black; E - Municipal Trash Bin Stable for 28 days at room temperatureExpires in days from Date Start Date: 02/19/16 Stop Date: 02/21/16 Status: Discontinued Insulin regular 4 unit, 0.04 mL, Route: SUB-Q, Drug form: SOLN, TID-Before Meals, Dosing Weight 112.727, kg, PRN Blood Glucose Results, Start date: 02/19/16 23:01:00 CDT, Durat ion: 30 day, Stop date: 03/20/16 23:00:00 [employer] LEAD Notes: (Same as: Humulin R) Roll in palms of hands gently; Do not shake vigorou sly. "single patient use only"(Restricted to patients requiring a dose > 60 units)WASTE: F/P - Black; E - Municipal Trash Bin Stable for 28 days at room temperatureExpires in days from Date Start Date: 02/19/16 Stop Date: 02/21/16 Status: Discontinued Insulin regular 2 unit, 0.02 mL, Route: SUB-Q, Drug form: SOLN, TID-Before Meals, Dosing Weight 112.727, kg, PRN Blood Glucose Results, Start date: 02/19/16 23:01:00 CDT, Durat ion: 30 day, Stop date: 03/20/16 23:00:00 [employer] LEAD Notes: (Same as: Humulin R) Roll in palms of hands gently; Do not shake vigorou sly. "single patient use only"(Restricted to patients requiring a dose > 60 units)WASTE: F/P - Black; E - Municipal Trash Bin Stable for 28 days at room temperatureExpires in days from Date Start Date: 02/19/16 Stop Date: 02/21/16 Status: Discontinued Insulin regular 3 unit, 0.03 mL, Route: SUB-Q, Drug form: SOLN, TID-Before Meals, Dosing Weight 112.727, kg, PRN Blood Glucose Results, Start date: 02/19/16 23:01:00 CDT, Durat ion: 30 day, Stop date: 03/20/16 23:00:00 [employer] LE[employer] Notes: (Same as: Humulin R) Roll in palms of hands gently; Do not shake vigorou sly. "single patient use only"(Restricted to patients requiring a dose > 60 units)WASTE: F/P - Black; E - Municipal Trash Bin Stable for 28 days at room temperatureExpires in days from Date Start Date: 02/19/16 Stop Date: 02/21/16 Status: Discontinued Insulin regular 1 unit, 0.01 mL, Route: SUB-Q, Drug form: SOLN, TID-Before Meals, Dosing Weight 112.727, kg, PRN Blood Glucose Results, Start date: 02/19/16 23:01:00 CDT, Durat ion: 30 day, Stop date: 03/20/16 23:00:00 [employer] LEAD Notes: (Same as: Humulin R) Roll in palms of hands gently; Do not shake vigorou sly. "single patient use only"(Restricted to patients requiring a dose > 60 units)WASTE: F/P - Black; E - Municipal Trash Bin Stable for 28 days at room temperatureExpires in days from Date Start Date: 02/19/16 Stop Date: 02/21/16 Status: Discontinued Kayexalate 30 gm, 120 mL, Route: PO, Drug form: SUSP, ONCE, Dosing Weight 125.057, kg, Star t date: 02/24/16 7:04:00 CDT, Stop date: 02/24/16 7:04:00 CDT Notes: (sodium polystyrene sulfonate 15 gm/60 ml LUCÍA) Shake well before use. (Same as: KIMBERLI Jones) Start Date: 02/24/16 Stop Date: 02/24/16 Status: Discontinued Kayexalate 15 gm, 60 mL, Route: PO, Drug form: SUSP, ONCE, Dosing Weight 125.057, kg, Start date: 02/24/16 10:53:00 CDT, Stop date: 02/24/16 10:53:00 CDT Notes: (sodium polystyrene sulfonate 15 gm/60 ml LUCÍA) Shake well before use. (Same as: KIMBERLI Jones) Start Date: 02/24/16 Stop Date: 02/24/16 Status: Completed Lasix 40 mg, 4 mL, Route: IVP, Drug form: INJ, ONCE, Dosing Weight 112.727, kg, Start date: 02/19/16 22:55:00 CDT, Stop date: 02/19/16 22:55:00 CDT Notes: (Same as: Lasix) MEDICATION WASTE Product Size: 40 mgProduct Was savana: _o__ mg Start Date: 02/19/16 Stop Date: 02/19/16 Status: Completed Levemir 30 unit, 0.3 mL, Route: SUB-Q, Drug form: SOLN, Daily, Dosing Weight 112.727, kg , Start date: 02/20/16 9:00:00 CDT, Duration: 30 day, Stop date: 03/20/16 9:00:0 0 [employer] Notes: Same as LevemirDo not hold insulin without contacting prescriberWASTE: F/ P - Black; E - Municipal Trash Bin "single patient use only" Start Date: 02/20/16 Stop Date: 02/25/16 Status: Discontinued lidocaine topical patch (5% film) 1 patch, Route: TOP, Daily, Drug form: FILM, Start date: 02/20/16 9:00:00 CDT, D uration: 30 day, Stop date: 03/20/16 9:00:00 [employer] LE[employer] Notes: Apply only once for up to 12 hours in [id number] period (12 hours on and 12 hours off).(Same as: Lidoderm)"Remove old patch before application of new patch" Start Date: 02/20/16 Stop Date: 02/25/16 Status: Discontinued magnesium oxide 800 mg, 2 tab, Route: PO, Drug form: TAB, PRN, Dosing Weight 112.727, kg, PRN Ab normal Lab Result, FOR ICU USE ONLY, Start date: 02/19/16 22:32:00 CDT, Duration : 30 day, Stop date: 03/20/16 21:31:00 [employer] LE[employer] Notes: (Same as: Mag-Ox 400)Magnesium oxide [id number] elemental magnesiumDose= ____mg magnesium oxide (___mg elemental magnesium) Start Date: 02/19/16 Stop Date: 02/21/16 Status: Discontinued magnesium sulfate 2 gm, 50 mL, Route: IVPB, Drug form: INJ, PRN, Dosing Weight 112.727, kg, PRN Ab normal Lab Result, Start date: 02/19/16 22:32:00 CDT, Duration: 30 day, Stop harish e: 03/20/16 21:31:00 [employer]ES LEAD, FOR ICU USE ONLY Notes: WASTE: F/P - Sink; E - Municipal Trash Bin Start Date: 02/19/16 Stop Date: 02/21/16 Status: Discontinued melatonin 3 mg, 1 tab, Route: PO, Drug form: TAB, Bedtime, Dosing Weight 125.057, kg, PRN Sleep, Start date: 02/21/16 10:09:00 CDT, Duration: 30 day, Stop date: 03/22/16 10:08:00 [employer] LE[employer] Notes: (Same as: Melatonin) Start Date: 02/21/16 Stop Date: 02/25/16 Status: Discontinued morphine Sulfate 4 mg, 2 mL, Route: IVP, Drug form: INJ, ONCE, Dosing Weight 112.727, kg, Priorit y: STAT, Start date: 02/19/16 23:24:00 CDT, Stop date: 02/19/16 23:24:00 CDT Notes: (Same as:MORPhine Sulfate) Start Date: 02/19/16 Stop Date: 02/19/16 Status: Completed morphine Sulfate 4 mg, 1 mL, Route: IVP, Drug form: INJ, ONCE, Dosing Weight 112.727, kg, Priorit y: STAT, Start date: 02/19/16 21:23:00 CDT, Stop date: 02/19/16 21:23:00 CDT Notes: (Same as:MORPhine Sulfate) Start Date: 02/19/16 Stop Date: 02/19/16 Status: Deleted morphine Sulfate 1 mg, 0.5 mL, Route: IVP, Drug form: INJ, ONCE, Dosing Weight 125.057, kg, Start date: 02/21/16 16:11:00 CDT, Stop date: 02/21/16 16:11:00 CDT Notes: (Same as:MORPhine Sulfate) Start Date: 02/21/16 Stop Date: 02/21/16 Status: Completed niCARdipine 40 mg 40 mg, 200 mL, Rate: Titrate, Start Dose: 5 mg/hr, Titration: 2.5 mg/hr every 15 minutes, Goal(s): systolic less than 150, Max Dose: 15 mg/hr, Route: IV, Dosing Weight 125.057 kg, Total Volume: 200, Start date: 02/20/16 5:51:00 CDT, Duratio n: 30 day,... Start Date: 02/20/16 Stop Date: 02/20/16 Status: Discontinued niCARdipine 40 mg/ NS 200 ml IV Soln (premix) 40 mg 40 mg, 200 mL, Rate: Titrate, Start Dose: 5 mg/hr, Titration: 2.5 mg/hr every 15 minutes, Goal(s): MAP 65, Max Dose: 15 mg/hr, Route: IV, Dosing Weight 125.057 kg, Total Volume: 200, Start date: 02/20/16 5:45:00 CDT, Duration: 30 day, Stop date: 03/21... Notes: Same as: CardeneConcentration: (0.2 mg /1 ml ) Start Date: 02/20/16 Stop Date: 02/20/16 Status: Discontinued nitroglycerin 100 mg/250ml D5W INJ 100 mg 100 mg, 250 mL, Rate: Titrate, Start Dose: 20 microgram/min, Titration: 0.2 micr ogram/kg/min every 5 minutes, Goal(s): Chest pain and SBP between 100 - 150 mmHg , Max Dose: 3 microgram/kg/min, Hold if: 180, Route: IV, Dosing Weight 112.727 k g, Total Vo... Notes: (Same as:Tridil) Final conc = 0.4 mg/ml. Premix bottle. Start Date: 02/19/16 Stop Date: 02/20/16 Status: Discontinued [place] 10/325 oral tablet 1 tab, Route: PO, Drug Form: TAB, Dosing Weight 125.057, kg, ONCE, Start date: 1 1:34:00 CDT, Stop date: 02/21/16 1:34:00 CDT Notes: Do not exceed 4gm/day of acetaminophen. (Same as: [place]field 325/10) Start Date: 02/21/16 Stop Date: 02/21/16 Status: Completed [place] 5/325 oral tablet 2 tab, PO, Q6H, PRN Pain Score 1-3, # 30 tab, 0 Refill(s), given to patient Start Date: 02/25/16 Stop Date: 02/25/17 Status: Ordered [place] 5/325 oral tablet 2 tab, Route: PO, Drug Form: TAB, Dosing Weight 125.057, kg, Q6H, PRN Pain Score 1-3, Start date: 02/22/16 13:11:00 CDT, Stop date: 03/23/16 13:10:00 [employer] LE[employer] Notes: (Same as: [place]field 325/5) Do not exceed 4gm/day of acetaminophen. Start Date: 02/22/16 Stop Date: 02/25/16 Status: Discontinued [place] 5/325 oral tablet 1 tab, Route: PO, Dosing Weight 125.057, kg, ONCE, Start date: 02/23/16 0:18:00 CDT, Stop date: 02/23/16 0:18:00 CDT Start Date: 02/23/16 Stop Date: 02/23/16 Status: Completed [place] 5/325 oral tablet 1 tab, Route: PO, Drug Form: TAB, Dosing Weight 125.057, kg, Q4H, PRN Pain Score 1-3, Start date: 02/20/16 9:08:00 CDT, Duration: 30 day, Stop date: 03/21/16 9: 07:00 [employer]ES LEAD Notes: (Same as: [place]field 325/5) Do not exceed 4gm/day of acetaminophen. Start Date: 02/20/16 Stop Date: 02/21/16 Status: Discontinued [place]field 5/325 oral tablet 1 tab, Route: PO, Drug Form: TAB, Dosing Weight 125.057, kg, Q6H, PRN Pain Score 1-3, Start date: 02/20/16 3:57:00 CDT, Duration: 30 day, Stop date: 03/21/16 3: 56:00 [employer] LEAD Notes: (Same as: [place] 325/5) Do not exceed 4gm/day of acetaminophen. Start Date: 02/20/16 Stop Date: 02/20/16 Status: Discontinued NovoLOG FlexPen 5 unit, 0.05 mL, Route: SUB-Q, Drug form: SOLN, Before Dinner, Dosing Weight 112 .727, kg, Start date: 02/21/16 16:30:00 CDT, Duration: 30 day, Stop date: 16:30:00 [employer] LEAD Notes: Roll in palms of hands gently; Do not shake vigorously. (Same as: Jarrod Angulo)"single patient use only"WASTE: F/P - Black; E - Municipal Trash Bin Stable f or 28 days at room temperature.Expires in days from Date Start Date: 02/21/16 Stop Date: 02/25/16 Status: Discontinued NovoLOG FlexPen 5 unit, 0.05 mL, Route: SUB-Q, Drug form: SOLN, Before Lunch, Dosing Weight 125. 057, kg, Start date: 02/21/16 11:30:00 CDT, Stop date: 03/21/16 11:30:00 [employer] Notes: Roll in palms of hands gently; Do not shake vigorously. (Same as: Jarrod Angulo)"single patient use only"WASTE: F/P - Black; E - Municipal Trash Bin Stable f or 28 days at room temperature.Expires in days from Date Start Date: 02/21/16 Stop Date: 02/25/16 Status: Discontinued NovoLOG FlexPen 10 unit, 0.1 mL, Route: SUB-Q, Drug form: SOLN, TID-Before Meals, Dosing Weight 112.727, kg, Start date: 02/20/16 7:30:00 CDT, Duration: 30 day, Stop date: 02/23 11/06 16:30:00 [employer] SAL[employer] LEAD Notes: Roll in palms of hands gently; Do not shake vigorously. (Same as: Jarrod Angulo)"single patient use only"WASTE: F/P - Black; E - Municipal Trash Bin Stable f or 28 days at room temperature.Expires in days from Date Start Date: 02/20/16 Stop Date: 02/21/16 Status: Discontinued potassium chloride 10 mEq, 50 mL, Route: IVPB, Drug form: INJ, PRN, Dosing Weight 112.727, kg, PRN Abnormal Lab Result, Via peripheral line, Start date: 02/19/16 22:32:00 CDT, Dur ation: 30 day, Stop date: 03/20/16 21:31:00 [employer] LE[employer], FOR ICU USE ONLY Notes: (Same as: KCL) Infuse over 2 hours. Start Date: 02/19/16 Stop Date: 02/21/16 Status: Discontinued potassium chloride 20 mEq, 15 mL, Route: NJ, Drug form: LIQ, PRN, Dosing Weight 112.727, kg, PRN Ab normal Lab Result, Start date: 02/19/16 22:32:00 CDT, Duration: 30 day, Stop harish e: 03/20/16 21:31:00 [employer] LE[employer], FOR ICU USE ONLY Notes: (Same as: Potassium Chloride) Start Date: 02/19/16 Stop Date: 02/21/16 Status: Discontinued potassium chloride 20 mEq, 100 mL, Route: IVPB, Drug form: INJ, PRN, Dosing Weight 112.727, kg, PRN Abnormal Lab Result, Via central line, Start date: 02/19/16 22:32:00 CDT, Durat ion: 30 day, Stop date: 03/20/16 21:31:00 [employer] LE[employer], FOR ICU USE ONLY Notes: (Same as: KCL) Infuse no faster than 10 mEq/hr if given peripherally. Start Date: 02/19/16 Stop Date: 02/21/16 Status: Discontinued potassium chloride 20 mEq, 1 tab, Route: PO, Drug form: ERTAB, PRN, Dosing Weight 112.727, kg, PRN Abnormal Lab Result, Start date: 02/19/16 22:32:00 CDT, Duration: 30 day, Stop d ate: 03/20/16 21:31:00 [employer] LE[employer], FOR ICU USE ONLY Notes: (Same as: K-Dur 20)"Do Not Crush" With food and full glass of water Start Date: 02/19/16 Stop Date: 02/21/16 Status: Discontinued potassium phosphate + sodium chloride 0.9% INJ 250 mL 15 mmol, 5 mL, Route: IVPB, PRN, Dosing Weight 112.727, kg, PRN Abnormal Lab Res ult, Start date: 02/19/16 22:32:00 CDT, Duration: 30 day, Stop date: 03/20/16 21 :31:00 [employer] LE[employer], FOR ICU USE ONLY Notes: (Same as: K Phosphate.) 1 mMol phoshate has 1.47 mEq potassium Infuse o zechariah 4 hours Start Date: 02/19/16 Stop Date: 02/21/16 Status: Discontinued potassium phosphate + sodium chloride 0.9% INJ 250 mL 30 mmol, 10 mL, Route: IVPB, PRN, Dosing Weight 112.727, kg, PRN Abnormal Lab Re sult, Start date: 02/19/16 22:32:00 CDT, Duration: 30 day, Stop date: 03/20/16 2 1:31:00 [employer] LE[employer], FOR ICU USE ONLY Notes: (Same as: K Phosphate.) 1 mMol phoshate has 1.47 mEq potassium Infuse o zechariah 4 hours Start Date: 02/19/16 Stop Date: 02/21/16 Status: Discontinued potassium phosphate + sodium chloride 0.9% INJ 250 mL 45 mmol, 15 mL, Route: IVPB, PRN, Dosing Weight 112.727, kg, PRN Abnormal Lab Re sult, Start date: 02/19/16 22:32:00 CDT, Duration: 30 day, Stop date: 03/20/16 2 1:31:00 [employer] LE[employer], FOR ICU USE ONLY Notes: (Same as: K Phosphate.) 1 mMol phoshate has 1.47 mEq potassium Infuse o zechariah 4 hours Start Date: 02/19/16 Stop Date: 02/21/16 Status: Discontinued potassium phosphate-sodium phosphate 250 mg-280 mg-160 mg oral powder for recons titution 2 pkt, Route: PO, Drug Form: PDR/REC, Dosing Weight 112.727, kg, PRN, PRN Abnorm al Lab Result, FOR ICU USE ONLY, Start date: 02/19/16 22:32:00 CDT, Duration: 30 day, Stop date: 03/20/16 21:31:00 [employer] LE[employer] Notes: (Same as: Phos-NaK) Each 1.5 gm pkt has 250mg phosphorous. Mix w/2.5oz w ater and stir. Start Date: 02/19/16 Stop Date: 02/21/16 Status: Discontinued remove patch 1 patch, Route: TOP, Bedtime, Drug form: ERFILM, Start date: 02/20/16 21:00:00 C DT, Duration: 30 day, Stop date: 03/20/16 21:00:00 [employer] Notes: Remove patch 12 hours after application each day. Start Date: 02/20/16 Stop Date: 02/25/16 Status: Discontinued Saline Flush 0.9% 10 ml, Route: IVP, Drug Form: INJ, Dosing Weight 112.727, kg, Q12H, Start date: 02/20/16 9:00:00 CDT, Duration: 30 day, Stop date: 03/20/16 21:00:00 [employer] LEAD Notes: (Same as: BD Posiflush) Start Date: 02/20/16 Stop Date: 02/21/16 Status: Discontinued Saline Flush 0.9% 10 ml, Route: IVP, Drug Form: INJ, Dosing Weight 112.727, kg, PRN, PRN Line Flus h, Start date: 02/19/16 22:32:00 CDT, Duration: 30 day, Stop date: 03/20/16 21:3 1:00 [employer] LEAD Notes: (Same as: BD Posiflush) Start Date: 02/19/16 Stop Date: 02/21/16 Status: Discontinued sertraline 50 mg, 1 tab, Route: PO, Drug form: TAB, Daily, Dosing Weight 112.727, kg, Start date: 02/20/16 9:00:00 CDT, Duration: 30 day, Stop date: 03/20/16 9:00:00 [employer] LE[employer] Notes: (Same as: Zoloft) Start Date: 02/20/16 Stop Date: 02/25/16 Status: Discontinued sevelamer 800 mg, 1 tab, Route: PO, Drug form: TAB, TID-Meals, Dosing Weight 125.057, kg, Start date: 02/23/16 8:00:00 CDT, Duration: 30 day, Stop date: 03/23/16 17:00:00 [employer] LE[employer] Notes: Give Renagel (sevelamer) 1 hour before or 3 hours after other meds"Do Not Crush" (Same as: Renagel) Start Date: 02/23/16 Stop Date: 02/25/16 Status: Discontinued simethicone 160 mg, 2 tab, Route: CHEW, Drug form: CHEWTAB, TID, Dosing Weight 125.057, kg, PRN Gas, Start date: 02/23/16 0:36:00 CDT, Duration: 30 day, Stop date: 03/24/16 0:35:00 [employer] LEAD Notes: (Same as: Mylicon) Start Date: 02/23/16 Stop Date: 02/25/16 Status: Discontinued sodium bicarbonate 325 mg, 1 tab, Route: PO, Drug form: TAB, Daily, Dosing Weight 125.057, kg, Star t date: 02/24/16 9:00:00 CDT, Duration: 30 day, Stop date: 03/24/16 9:00:00 [employer] LE[employer] Notes: "Dissolve tablet in a glass of water prior to oral administration. STOMA CH WARNING: To avoid serious injury, do not take until tablet is completely diss olved. It is very important not to take this product when overly full from food or drink." Start Date: 02/24/16 Stop Date: 02/25/16 Status: Discontinued sodium bicarbonate 15 mL, Route: PO, Drug form: SOLN, Daily, Dosing Weight 125.057, kg, Start date: 02/24/16 9:00:00 CDT, Duration: 30 day, Stop date: 03/24/16 9:00:00 [employer] LEAD Start Date: 02/24/16 Stop Date: 02/24/16 Status: Canceled sodium chloride 0.9% INJ 250 mL 250 mL, Rate: call center support representative for use with blood product administration, Dosing Weight 1 25.057, kg, Route: IV, Total Volume: 250, Start Date: 02/22/16 9:54:00 CDT, Dura tion: 1 day, Stop date: 02/23/16 9:53:00 CDT, Replace Every: 24 hr Start Date: 02/22/16 Stop Date: 02/23/16 Status: Completed sodium phosphate + sodium chloride 0.9% INJ 250 mL 30 mmol, 10 mL, Route: IVPB, PRN, Dosing Weight 112.727, kg, PRN Abnormal Lab Re sult, Start date: 02/19/16 22:32:00 CDT, Duration: 30 day, Stop date: 03/20/16 2 1:31:00 [employer] LE[employer], FOR ICU USE ONLY Start Date: 02/19/16 Stop Date: 02/21/16 Status: Discontinued sodium phosphate + sodium chloride 0.9% INJ 250 mL 15 mmol, 5 mL, Route: IVPB, PRN, Dosing Weight 112.727, kg, PRN Abnormal Lab Res ult, Start date: 02/19/16 22:32:00 CDT, Duration: 30 day, Stop date: 03/20/16 21 :31:00 [employer] SAL[employer] LEAD, FOR ICU USE ONLY Start Date: 02/19/16 Stop Date: 02/21/16 Status: Discontinued sodium phosphate + sodium chloride 0.9% INJ 250 mL 45 mmol, 15 mL, Route: IVPB, PRN, Dosing Weight 112.727, kg, PRN Abnormal Lab Re sult, Start date: 02/19/16 22:32:00 CDT, Duration: 30 day, Stop date: 03/20/16 2 1:31:00 [employer] SAL[employer] LEAD, FOR ICU USE ONLY Start Date: 02/19/16 Stop Date: 02/21/16 Status: Discontinued tramadol 50 mg oral tablet 100 mg, 2 tab, Route: PO, Drug form: TAB, Q6H, Dosing Weight 125.057, kg, PRN Pa in Score 4-6, Start date: 02/21/16 5:32:00 CDT, Duration: 30 day, Stop date: 5:31:00 [employer] LEAD Notes: Not to exceed 400mg/day. (Same As: Ultram) Start Date: 02/21/16 Stop Date: 02/25/16 Status: Discontinued Tylenol with Codeine #3 oral tablet 1 tab, Route: PO, Drug Form: TAB, Dosing Weight 125.057, kg, Q6H, PRN Pain Score 1-3, Start date: 02/22/16 7:59:00 CDT, Duration: 30 day, Stop date: 03/23/16 7: 58:00 [employer] LEAD Notes: Do not exceed 4gm/day of acetaminophen. (Same as: Tylenol with Codeine # 3) Start Date: 02/22/16 Stop Date: 02/22/16 Status: Discontinued vancomycin + sodium chloride 0.9% 250 mL INJ (for IV set) 250 mL 1,500 mg, Route: IVPB, Drug form: INJ, Daily, Dosing Weight 112.727, kg, Start d ate: 02/21/16 0:00:00 CDT, Duration: 30 day, Stop date: 03/21/16 0:00:00 [employer] SAL[employer] LEAD Notes: TIME CRITICAL MEDICATION(Same As: Vancocin)Infusion rate< 1000 mg: infuse over 1 [id number] - 1500 mg: infuse over 1.5 [id number] - 2000 mg: infuse over 2 hours> 2001 mg: infuse over 2.5 hours MEDICATION WASTE Product Size: 1000 mgProduct Wasted: ___ mg Start Date: 02/21/16 Stop Date: 02/20/16 Status: Canceled vancomycin + sodium chloride 0.9% 500 ml INJ 500 mL 2,000 mg, Route: IVPB, ONCE, Dosing Weight 112.727, kg, Start date: 02/19/16 23: 03:00 CDT, Stop date: 02/19/16 23:03:00 CDT Notes: TIME CRITICAL MEDICATION(Same As: Vancocin)Infusion rate< 1000 mg: infuse over 1 [id number] - 1500 mg: infuse over 1.5 hoursVancomycin FOR IV SET [id number] - 2000 mg: infuse over 2 hours> 2001 mg: infuse over 2.5 hours MEDICATION WASTE Product Size: 1000 mgProduct Wasted: ___ mg Start Date: 02/19/16 Stop Date: 02/20/16 Status: Completed Zosyn 3.375 gm, Route: IVPB, Drug form: PDR/INJ, [id number], Dosing Weight 112.727, kg, Cr Cl < 20 ml/min infuse over 4 hours, Start date: 02/20/16 0:00:00 CDT, Duration: 30 day, Stop date: 03/20/16 16:00:00 [employer] LEAD Notes: (Same as: Zosyn)Dosing based on Piperacillin component MEDICATION [place] INGA Product Size: 3375 mgProduct Wasted: __0_ mg Start Date: 02/20/16 Stop Date: 02/20/16 Status: Discontinued Results BLOOD BANK RESULTS 1 2 3 Most recent to oldest [Reference Range]: A POS *Unknown* (02/22/16 10:24 AM) ABO/Rh Negative (02/22/16 10:24 AM) Antibody Scrn Product available (02/22/16 9:54 AM) RBC product ELECTROLYTES 1 2 3 Most recent to oldest [Reference Range]: 139 mEq/L (02/25/16 4:46 AM) 137 mEq/L (02/24/16 9:18 AM) 137 mEq/L (02/24/16 12:48 AM) Sodium Lvl [135-145 mEq/L] 4.7 mEq/L 1 (02/25/16 4:46 AM) 5.3 mEq/L *HI* (02/24/16 9:18 AM) 5.3 mEq/L *HI* (02/24/16 12:48 AM) Potassium Lvl [3.5-5.1 mEq/L] 106 mEq/L (02/25/16 4:46 AM) 108 mEq/L (02/24/16 9:18 AM) 109 mEq/L (02/24/16 12:48 AM) Chloride Lvl [95-109 mEq/L] 22 mEq/L *LOW* (02/25/16 4:46 AM) 22 mEq/L *LOW* (02/24/16 9:18 AM) 21 mEq/L *LOW* (02/24/16 12:48 AM) CO2 [24-32 mEq/L] 15.7 mEq/L (02/25/16 4:46 AM) 12.3 mEq/L (02/24/16 9:18 AM) 12.3 mEq/L (02/24/16 12:48 AM) AGAP [10.0-20.0 mEq/L] 1Result Comment: slight hemolysis CHEM PANEL 1 2 3 Most recent to oldest [Reference Range]: 2.86 mg/dL *HI* (02/25/16 4:46 AM) 2.80 mg/dL *HI* (02/24/16 9:18 AM) 2.53 mg/dL *HI* (02/24/16 12:48 AM) Creatinine Lvl [0.50-1.40 mg/dL] 23 mL/min/1.73m2 1 *NA* (02/25/16 4:46 AM) 23 mL/min/1.73m2 2 *NA* (02/24/16 9:18 AM) 26 mL/min/1.73m2 3 *NA* (02/24/16 12:48 AM) eGFR 26 mg/dL *HI* (02/25/16 4:46 AM) 24 mg/dL *HI* (02/24/16 9:18 AM) 25 mg/dL *HI* (02/24/16 12:48 AM) BUN [7-22 mg/dL] 8 (02/19/16 5:52 PM) B/C Ratio [6-25] 97 mg/dL (02/25/16 4:46 AM) 176 mg/dL *HI* (02/24/16 9:18 AM) 152 mg/dL *HI* (02/24/16 12:48 AM) Glucose Lvl [70-99 mg/dL] 8.7 g/dL *HI* (02/19/16 5:52 PM) Total Protein [6.4-8.4 g/dL] 1.5 g/dL *LOW* (02/19/16 5:52 PM) Albumin Lvl [3.5-5.0 g/dL] 7.2 g/dL *HI* (02/19/16 5:52 PM) Globulin [2.7-4.2 g/dL] 0.2 *LOW* (02/19/16 5:52 PM) A/G Ratio [0.7-1.6] 8.5 mg/dL (02/25/16 4:46 AM) 8.6 mg/dL (02/24/16 9:18 AM) 8.0 mg/dL *LOW* (02/24/16 12:48 AM) Calcium Lvl [8.5-10.5 mg/dL] 4.9 mg/dL *HI* (02/25/16 4:46 AM) 4.7 mg/dL *HI* (02/24/16 12:48 AM) 5.1 mg/dL *HI* (02/23/16 4:18 AM) Phosphorus [2.5-4.5 mg/dL] 2.4 mg/dL (02/25/16 4:46 AM) 2.2 mg/dL (02/24/16 12:48 AM) 2.2 mg/dL (02/23/16 4:18 AM) Magnesium Lvl [1.8-2.4 mg/dL] 11 unit/L (02/19/16 5:52 PM) ALT [0-65 unit/L] 14 unit/L (02/19/16 5:52 PM) AST [0-37 unit/L] 163 unit/L *HI* (02/19/16 5:52 PM) Alk Phos [39-136 unit/L] 0.2 mg/dL (02/19/16 5:52 PM) Bili Total [0.2-1.3 mg/dL] 65 unit/L *LOW* (02/19/16 10:47 PM) Lipase Lvl [73-393 unit/L] 0.8 mmol/L (02/19/16 5:52 PM) Lactic Acid WB [0.5-2.2 mmol/L] 1Result [...] recent to oldest [Reference Range]: <0.02 ng/mL (02/20/16 9:33 AM) 0.03 ng/mL (02/20/16 12:56 AM) <0.02 ng/mL (02/19/16 5:52 PM) Troponin-I [0.00-0.40 ng/mL] 584 pg/mL *HI* (02/19/16 10:47 PM) BNP [<=100 pg/mL] 02999 pg/mL *HI* (02/19/16 10:47 PM) proBNP [0-125 pg/mL] SPECIAL CHEMISTRY 1 2 3 Most recent to oldest [Reference Range]: 7.4 % *HI* (02/21/16 12:00 PM) Hgb A1C [<=5.6 %] PARATHYROID PROFILE 1 2 3 Most recent to oldest [Reference Range]: 1.13 mMol/L (02/19/16 10:47 PM) Ca Ion WB [1.05-1.25 mMol/L] 1.10 mMol/L (02/19/16 10:47 PM) Ca Norm WB [1.05-1.25 mMol/L] URINE CHEM 1 2 3 Most recent to oldest [Reference Range]: 63.00 mg/dL *NA* (02/22/16 8:08 AM) U Creatinine 708.9 mg/dL *NA* (02/22/16 8:08 AM) U Protein 11.3 *NA* (02/22/16 8:08 AM) U Prot/Creat 259 mg/dL *NA* (02/22/16 8:08 AM) U Urea 58 mEq/L *NA* (02/22/16 8:08 AM) U Sodium 10.9 mEq/L *NA* (02/22/16 8:08 AM) U Potassium 47 mEq/L *NA* (02/22/16 8:08 AM) U Chloride Negative (02/23/16 9:34 AM) U Preg [Negative] URINE AND STOOL 1 2 3 Most recent to oldest [Reference Range]: Clear (02/19/16 10:47 PM) UA Turbidity [Clear] Yellow *NA* (02/19/16 10:47 PM) UA Color [Yellow] 6.5 (02/19/16 10:47 PM) UA pH [5.0-8.0] 1.014 (02/19/16 10:47 PM) UA Spec Grav [<=1.030] 200 mg/dL *ABN* (02/19/16 10:47 PM) UA Glucose [Negative mg/dL] Moderate *ABN* (02/19/16 10:47 PM) UA Blood [Negative] Negative mg/dL *NA* (02/19/16 10:47 PM) UA Ketones [Negative mg/dL] >=300 mg/dL *ABN* (02/19/16 10:47 PM) UA Protein [Negative mg/dL] <=1.0 mg/dL *NA* (02/19/16 10:47 PM) UA Urobilinogen [0.1-1.0 mg/dL] Negative *NA* (02/19/16 10:47 PM) UA Bili [Negative] Negative (02/19/16 10:47 PM) UA Leuk Est [Negative] Negative (02/19/16 10:47 PM) UA Nitrite [Negative] 3 /HPF (02/19/16 10:47 PM) UA WBC [0-5 /HPF] 12 /HPF *HI* (02/19/16 10:47 PM) UA RBC [0-2 /HPF] Moderate /LPF *ABN* (02/19/16 10:47 PM) UA Sq Epi [Few /LPF] Few /LPF *NA* (02/19/16 10:47 PM) UA Mucus [None Seen /LPF] HEMATOLOGY 1 2 3 Most recent to oldest [Reference Range]: 11.0 K/CMM *HI* (02/25/16 4:46 AM) 12.3 K/CMM *HI* (02/24/16 12:48 AM) 9.5 K/CMM (02/23/16 4:18 AM) WBC [3.7-10.4 K/CMM] 2.70 M/CMM *LOW* (02/25/16 4:46 AM) 2.69 M/CMM *LOW* (02/24/16 12:48 AM) 2.68 M/CMM *LOW* (02/23/16 4:18 AM) RBC [4.20-5.40 M/CMM] 7.3 g/dL *LOW* (02/25/16 4:46 AM) 7.1 g/dL *LOW* (02/24/16 12:48 AM) 7.4 g/dL *LOW* (02/23/16 4:18 AM) Hgb [12.0-16.0 g/dL] 22.5 % *LOW* (02/25/16 4:46 AM) 22.1 % *LOW* (02/24/16 12:48 AM) 21.6 % *LOW* (02/23/16 4:18 AM) Hct [36.0-48.0 %] 83.4 fL (02/25/16 4:46 AM) 82.1 fL (02/24/16 12:48 AM) 80.9 fL (02/23/16 4:18 AM) MCV [80.0-98.0 fL] 26.9 pg *LOW* (02/25/16 4:46 AM) 26.5 pg *LOW* (02/24/16 12:48 AM) 27.5 pg (02/23/16 4:18 AM) MCH [27.0-31.0 pg] 32.2 g/dL (02/25/16 4:46 AM) 32.2 g/dL (02/24/16 12:48 AM) 34.0 g/dL (02/23/16 4:18 AM) MCHC [32.0-36.0 g/dL] 16.8 % *HI* (02/25/16 4:46 AM) 16.3 % *HI* (02/24/16 12:48 AM) 16.7 % *HI* (02/23/16 4:18 AM) RDW [11.5-14.5 %] 586 K/CMM *HI* (02/25/16 4:46 AM) 619 K/CMM *HI* (02/24/16 12:48 AM) 557 K/CMM *HI* (02/23/16 4:18 AM) Platelet [133-450 K/CMM] 7.9 fL (02/25/16 4:46 AM) 7.5 fL (02/24/16 12:48 AM) 7.6 fL (02/23/16 4:18 AM) MPV [7.4-10.4 fL] 55.6 % (02/25/16 4:46 AM) 72.4 % (02/24/16 12:48 AM) 50.4 % (02/23/16 4:18 AM) Segs [45.0-75.0 %] 33.6 % (02/25/16 4:46 AM) 20.2 % (02/24/16 12:48 AM) 38.3 % (02/23/16 4:18 AM) Lymphocytes [20.0-40.0 %] 6.6 % (02/25/16 4:46 AM) 4.6 % (02/24/16 12:48 AM) 6.8 % (02/23/16 4:18 AM) Monocytes [2.0-12.0 %] 3.3 % (02/25/16 4:46 AM) 2.3 % (02/24/16 12:48 AM) 3.2 % (02/23/16 4:18 AM) Eosinophils [0.0-4.0 %] 0.9 % (02/25/16 4:46 AM) 0.5 % (02/24/16 12:48 AM) 1.3 % *HI* (02/23/16 4:18 AM) Basophils [0.0-1.0 %] 6.1 K/CMM (02/25/16 4:46 AM) 8.9 K/CMM *HI* (02/24/16 12:48 AM) 4.8 K/CMM (02/23/16 4:18 AM) Segs-Bands # [1.5-8.1 K/CMM] 3.7 K/CMM (02/25/16 4:46 AM) 2.5 K/CMM (02/24/16 12:48 AM) 3.7 K/CMM (02/23/16 4:18 AM) Lymphocytes # [1.0-5.5 K/CMM] 0.7 K/CMM (02/25/16 4:46 AM) 0.6 K/CMM (02/24/16 12:48 AM) 0.6 K/CMM (02/23/16 4:18 AM) Monocytes # [0.0-0.8 K/CMM] 0.4 K/CMM (02/25/16 4:46 AM) 0.3 K/CMM (02/24/16 12:48 AM) 0.3 K/CMM (02/23/16 4:18 AM) Eosinophils # [0.0-0.5 K/CMM] 0.1 K/CMM (02/25/16 4:46 AM) 0.1 K/CMM (02/24/16 12:48 AM) 0.1 K/CMM (02/23/16 4:18 AM) Basophils # [0.0-0.2 K/CMM] SLIGHT *NA* (02/24/16 12:48 AM) SLIGHT *NA* (02/23/16 4:18 AM) Polychrom SLIGHT *NA* (02/24/16 12:48 AM) SLIGHT *NA* (02/23/16 4:18 AM) Toxic Gran 20.2 seconds *HI* (02/19/16 5:52 PM) PT [12.0-14.7 seconds] 1.69 *HI* (02/19/16 5:52 PM) INR [0.85-1.17] 50.9 seconds *HI* (02/20/16 12:56 AM) 37.2 seconds *HI* (02/19/16 5:52 PM) PTT [22.9-35.8 seconds] BACTERIAL - SEROLOGY 1 2 3 Most recent to oldest [Reference Range]: Positive 1 *ABN* (02/19/16 11:16 PM) MRSA by PCR 1Result Comment: "Significant Findings called to Tiffani Aguilera__at 0125pm___by __FG_.Read Back OK." Immunizations Given and Recorded Vaccine Date Status [...] No Assessment and Plan Extracted from: Title: Medicine Team A Senior Java Engineer Author: Cielo Ryan ret, MD Date: 02/25/16 Discharge Summary Medicine Team A Senior [employer] Engineer Discharge Summary Admission/Discharge Dates: 02/19/2016 - 02/25/16 Admission/Discharge Diagnoses: pulmonary edema, ALDO/ ALDO on CKD, Service: Medicine Team A Referring Physician/Dept: Dr. Harvey Consults: orthopedics Procedures: removal of external fixator device History and Hospital Course: Ms. Hernandez is a 40 year old with CHF [...] a CTA was not possible due to ALDO. She was started on a nitro drip [...] soft splint. During the hospital course, her ALDO has been monitored. Baseline creatinine appears to be ~1.5. On admission, her creatinine was 1.9 and uptrended to maximum of 2.8. Her lasix was held in the setting of ALDO and Bactrim was discontinued (was on prophylaxis [...] for renal function. Follow up with Dr Warren 1 week after discharge. Please call [phone] to confirm apt Follow-up: PCP Ortho (see [...] Harvey MD Medicine Teaching Service Attending Extracted from: Title: [facility] PN Author: Casey Valles MD Date: 02/24/16 [facility] PN S: Patient overall doing well [...] Patient is OK to DC [facility] pending medical and PT clearance and pain control. [facility] will continue to follow in house. Plan to f/u with Dr Warren 1 week after DC. Please call [phone] to confirm appt. Extracted from: Title: MICU admission history and Author: Bishnu Ayoub MD Date: 02/19/16 physical Impression and Plan 40 year old with [...] the need for CT non con after. #ALDO on CKD -current cr is 1.9. baseline [...] Right femoral central line - peripheral Bishnu Ayoub MD PGY1
--- OUTSIDE RECORDS SUMMARY | 2019-09-10 20:13 | XMS REPORT | Summary of Care ---
Author Author [facility] Organization [facility] Address Unknown Phone Unavailable Encounter PRIMITIVO Mariano(SANGITA) [id number] Date(s): 02/02/16 - 02/02/16 [facility] [address] [employer] provided by [employer] [place] [address]- Discharge Diagnosis: Osteomyelitis Discharge Disposition: Home or Self Care Attending Physician: Shady Rg MD Vital Signs 1 2 3 Most recent to oldest [Reference Range]: 170.18 cm (02/02/16 12:25 AM) Height 98.9 DegF (02/02/16 9:42 AM) 98.3 DegF (02/02/16 12:25 AM) Temperature Oral [96.4-99.1 DegF] 138/74 mmHg (02/02/16 9:42 AM) 106/59 mmHg (02/02/16 6:23 AM) 225/112 mmHg *HI* (02/02/16 3:59 AM) Blood Pressure [90-140/60-90 mmHg] 18 BRMIN (02/02/16 9:42 AM) 16 BRMIN (02/02/16 6:23 AM) 20 BRMIN (02/02/16 3:59 AM) Respiratory Rate [14-20 BRMIN] 89 bpm (02/02/16 9:42 AM) 116 bpm *HI* (02/02/16 3:59 AM) 127 bpm *HI* (02/02/16 12:25 AM) Peripheral Pulse Rate [60-100 bpm] 111.818 kg (02/02/16 12:25 AM) Weight 38.61 m2 (02/02/16 12:25 AM) Body Mass Index Problem List Condition Effective Dates Status Health Status Informan t CHF - Congestive Active heart failure(Confirmed) DM (diabetes Active mellitus)(Confirmed) HTN - Active Hypertension(Confirm ed) Neuropathy(Confirmed Active ) Osteomyelitis(Confir Resolved med) Allergies, Adverse Reactions, Alerts Substance Reaction Severity Status NKDA Active Medications acetaminophen-hydrocodone 325 mg-5 mg oral tablet 1 tab, Route: PO, Drug Form: TAB, Dosing Weight 111.818, kg, ONCE, STAT, Start d ate: 02/02/16 8:28:00 CDT, Stop date: 02/02/16 8:28:00 CDT Notes: (Same as: [place] 325/5) Do not exceed 4gm/day of acetaminophen. Start Date: 02/02/16 Stop Date: 02/02/16 Status: Ordered amLODIPine 10 mg, 1 tab, Route: PO, Drug form: TAB, ONCE, Dosing Weight 111.818, kg, Start date: 02/02/16 4:19:00 CDT, Stop date: 02/02/16 4:19:00 CDT Notes: (Same as: Norvasc) Start Date: 02/02/16 Stop Date: 02/02/16 Status: Completed carvedilol 25 mg, 1 tab, Route: PO, Drug form: TAB, ONCE, Dosing Weight 111.818, kg, Start date: 02/02/16 4:01:00 CDT, Stop date: 02/02/16 4:01:00 CDT Notes: Give with food. (Same As: Coreg) Start Date: 02/02/16 Stop Date: 02/02/16 Status: Completed Dilaudid 1 mg, 0.5 mL, Route: IM, Drug form: INJ, ONCE, Dosing Weight 111.818, kg, Start date: 02/02/16 4:53:00 CDT, Stop date: 02/02/16 4:53:00 CDT Notes: (Same as: Dilaudid) Start Date: 02/02/16 Stop Date: 02/02/16 Status: Completed lisinopril 10 mg, 1 tab, Route: PO, Drug form: TAB, ONCE, Dosing Weight 111.818, kg, Priori ty: STAT, Start date: 02/02/16 4:19:00 CDT, Stop date: 02/02/16 4:19:00 CDT Notes: (Same as: Prinivil, Zestril) Start Date: 02/02/16 Stop Date: 02/02/16 Status: Completed [place] 10/325 oral tablet 1 tab, Route: PO, Drug Form: TAB, Dosing Weight 111.818, kg, ONCE, STAT, Start d ate: 02/02/16 4:18:00 CDT, Stop date: 02/02/16 4:18:00 CDT Notes: Do not exceed 4gm/day of acetaminophen. (Same as: [place] 325/10) Start Date: 02/02/16 Stop Date: 02/02/16 Status: Completed Sodium Chloride 0.9% (Bolus) IV 1,000 mL, 2,000 ml/hr, Infuse Over: 30 minutes, Route: IV, ONCE, Priority: STAT, Dosing Weight 111.818 kg, Start date: 02/02/16 5:33:00 CDT, Duration: 1 doses or times, Stop date: 02/02/16 5:33:00 CDT Start Date: 02/02/16 Stop Date: 02/02/16 Status: Completed Results ELECTROLYTES Most recent to 1 oldest [Reference Range]: Sodium Lvl [135-145 139 mEq/L mEq/L] (02/02/16 6:17 AM) Potassium Lvl 4.4 mEq/L [3.5-5.1 mEq/L] (02/02/16 6:17 AM) Chloride Lvl [95-109 108 mEq/L mEq/L] (02/02/16 6:17 AM) CO2 [24-32 mEq/L] 19 mEq/L *LOW* (02/02/16 6:17 AM) AGAP [10.0-20.0 16.4 mEq/L mEq/L] (02/02/16 6:17 AM) CHEM PANEL Most recent to 1 oldest [Reference Range]: Creatinine Lvl 2.05 mg/dL [0.50-1.40 mg/dL] *HI* (02/02/16 6:17 AM) eGFR 34 mL/min/1.73m2 1 *NA* (02/02/16 6:17 AM) BUN [7-22 mg/dL] 22 mg/dL (02/02/16 6:17 AM) Glucose Lvl [70-99 205 mg/dL mg/dL] *HI* (02/02/16 6:17 AM) Calcium Lvl 8.4 mg/dL [8.5-10.5 mg/dL] *LOW* (02/02/16: AM) 1Result Comment: The eGFR is calculated [...] be mul tiplied by the estimated BMI. ENDOCRINOLOGY Most recent to 1 oldest [Reference Range]: S Preg [Negative] Negative *NA* (02/02/16: AM) HEMATOLOGY Most recent to 1 oldest [Reference Range]: WBC [3.7-10.4 K/CMM] 11.0 K/CMM *HI* (02/02/16: AM) RBC [4.20-5.40 3.14 M/CMM M/CMM] *LOW* (02/02/16: AM) Hgb [12.0-16.0 g/dL] 8.5 g/dL *LOW* (02/02/16: AM) Hct [36.0-48.0 %] 25.9 % *LOW* (02/02/16: AM) MCV [80.0-98.0 fL] 82.4 fL (02/02/16 6: AM) MCH [27.0-31.0 pg] 27.1 pg (02/02/16 AM) MCHC [32.0-36.0 32.9 g/dL g/dL] (02/02/16 6 AM) RDW [11.5-14.5 %] 15.9 % *HI* (02/02/16: AM) Platelet [133-450 511 K/CMM K/CMM] *HI* (02/02/16 6:17 AM) MPV [7.4-10.4 fL] 7.4 fL (02/02/16 6:17 AM) Segs [45.0-75.0 %] 65.7 % (02/02/16 6:17 AM) Lymphocytes 24.9 % [20.0-40.0 %] (02/02/16 6:17 AM) Monocytes [2.0-12.0 6.5 % %] (02/02/16 6:17 AM) Eosinophils [0.0-4.0 1.9 % %] (02/02/16 6:17 AM) Basophils [0.0-1.0 1.0 % %] (02/02/16 6:17 AM) Segs-Bands # 7.2 K/CMM [1.5-8.1 K/CMM] (02/02/16 6:17 AM) Lymphocytes # 2.7 K/CMM [1.0-5.5 K/CMM] (02/02/16 6:17 AM) Monocytes # [0.0-0.8 0.7 K/CMM K/CMM] (02/02/16 6:17 AM) Eosinophils # 0.2 K/CMM [0.0-0.5 K/CMM] (02/02/16 6:17 AM) Basophils # [0.0-0.2 0.1 K/CMM K/CMM] (02/02/16 6:17 AM) Immunizations Given and Recorded Vaccine Date [...]
--- OUTSIDE RECORDS SUMMARY | 2019-09-10 20:13 | XMS REPORT | Summary of Care ---
Author Author [facility] Organization [facility] Address Unknown Phone Unavailable Encounter PRIMITIVO Mariano(SANGITA) [id number] Date(s): 03/14/16 - 04/01/16 [facility] [address] [facility] provided by [facility] [place] [address]- Discharge Disposition: Home or Self Care Attending Physician: Isidro Cook MD Admitting Physician: Raven Marrero MD Vital Signs 1 2 3 Most recent to oldest [Reference Range]: 170.18 cm (03/15/16 2:05 PM) Height 98.3 DegF (04/01/16 4:22 PM) 97.6 DegF (04/01/16 2:10 PM) 98.2 DegF (04/01/16 8:23 AM) Temperature Oral [96.4-99.1 DegF] 161/88 mmHg *HI* (04/01/16 4:22 PM) 149/90 mmHg *HI* (04/01/16 2:10 PM) 150/87 mmHg *HI* (04/01/16 8:23 AM) Blood Pressure [90-140/60-90 mmHg] 18 BRMIN (04/01/16 4:22 PM) 18 BRMIN (04/01/16 2:10 PM) 18 BRMIN (04/01/16 8:23 AM) Respiratory Rate [14-20 BRMIN] 85 bpm (04/01/16 4:22 PM) 83 bpm (04/01/16 2:10 PM) 87 bpm (04/01/16 8:23 AM) Peripheral Pulse Rate [60-100 bpm] 115 kg (03/15/16 2:05 PM) 115 kg (03/15/16 5:00 AM) 115 kg (03/14/16 12:13 PM) Weight 39.71 m2 (03/15/16 2:05 PM) Body Mass Index Problem List Condition [...] Reaction Severity Status NKDA Active Medications acetaminophen 1,000 mg, 2 tab, Route: PO, Drug form: TAB, Q6H, Dosing Weight 115, kg, Start da te: 03/15/16 12:00:00 RESEARCH EXECUTIVE, Duration: 30 day, Stop date: 04/14/16 6:00:00 RESEARCH EXECUTIVE Notes: Max acetaminophen 4000 mg/day (4 gm/day). (Same as: Tylenol Extra Streng th) Start Date: 03/15/16 Stop Date: 03/16/16 Status: Discontinued acetaminophen 650 mg, 2 tab, Route: PO, Drug form: TAB, ONCE, Dosing Weight 115, kg, Priority: STAT, Start date: 03/14/16 13:45:00 RESEARCH EXECUTIVE, Stop date: 03/14/16 13:45:00 RESEARCH EXECUTIVE Notes: Do not exceed 4 gm/day. (Same as: Tylenol) Start Date: 03/14/16 Stop Date: 03/14/16 Status: Completed acetaminophen 650 mg, 2 tab, Route: PO, Drug form: TAB, Q4H, Dosing Weight 115, kg, PRN Pain 1 -3/Temp > 100.4 F, Start date: 03/15/16 1:37:00 RESEARCH EXECUTIVE, Duration: 30 day, Stop date: 04/14/16 1:36:00 RESEARCH EXECUTIVE Notes: Do not exceed 4 gm/day. (Same as: Tylenol) Start Date: 03/15/16 Stop Date: 03/15/16 Status: Discontinued acetaminophen 650 mg, 2 tab, Route: PO, Drug form: TAB, ONCE, Dosing Weight 115, kg, Priority: STAT, Start date: 03/14/16 20:18:00 RESEARCH EXECUTIVE, Stop date: 03/14/16 20:18:00 RESEARCH EXECUTIVE Notes: Do not exceed 4 gm/day. (Same as: Tylenol) Start Date: 03/14/16 Stop Date: 03/14/16 Status: Completed acetaminophen 1,000 mg, 2 tab, Route: PO, Drug form: TAB, Q6H, Dosing Weight 115, kg, PRN For Temp > 100.4 F, Priority: NOW, Start date: 03/16/16 17:10:00 RESEARCH EXECUTIVE, Duration: 30 day, Stop date: 04/15/16 17:09:00 RESEARCH EXECUTIVE Notes: Max acetaminophen 4000 mg/day (4 gm/day). (Same as: Tylenol Extra Streng th) Start Date: 03/16/16 Stop Date: 04/01/16 Status: Discontinued acetaminophen 325 mg oral tablet 325 mg, Route: PO, Drug form: TAB, ONCE, Dosing Weight 115, kg, Priority: STAT, Start date: 03/14/16 16:05:00 RESEARCH EXECUTIVE, Stop date: 03/14/16 16:05:00 RESEARCH EXECUTIVE Start Date: 03/14/16 Stop Date: 03/14/16 Status: Completed amLODIPine 10 mg, 1 tab, Route: PO, Drug form: TAB, Daily, Dosing Weight 115, kg, Start harish e: 03/15/16 9:00:00 RESEARCH EXECUTIVE, Duration: 30 day, Stop date: 04/13/16 9:00:00 RESEARCH EXECUTIVE Notes: (Same as: Norvasc) Start Date: 03/15/16 Stop Date: 04/01/16 Status: Discontinued aspirin 81 mg tablet, enteric coated 81 mg, 1 tab, Route: PO, Drug form: ECTAB, Daily, Dosing Weight 115, kg, Start d ate: 03/15/16 9:00:00 RESEARCH EXECUTIVE, Duration: 30 day, Stop date: 04/13/16 9:00:00 RESEARCH EXECUTIVE Notes: Do not crush or chew.(Same As: Ecotrin) Start Date: 03/15/16 Stop Date: 04/01/16 Status: Discontinued Ativan 2 mg, 1 tab, Route: PO, Drug form: TAB, ONCE, Dosing Weight 115, kg, Priority: S TAT, Start date: 03/14/16 21:53:00 RESEARCH EXECUTIVE, Stop date: 03/14/16 21:53:00 RESEARCH EXECUTIVE Notes: (Same as: Ativan) Start Date: 03/14/16 Stop Date: 03/14/16 Status: Completed atorvastatin 40 mg, 1 tab, Route: PO, Drug form: TAB, Bedtime, Dosing Weight 115, kg, Start d ate: 03/15/16 21:00:00 RESEARCH EXECUTIVE, Duration: 30 day, Stop date: 04/13/16 21:00:00 RESEARCH EXECUTIVE Notes: (Same as: Lipitor) Start Date: 03/15/16 Stop Date: 04/01/16 Status: Discontinued Bicitra oral solution 30 mL, Route: PO, Drug Form: SOLN, Dosing Weight 115, kg, QID, Start date: 03/18 9:00:00 RESEARCH EXECUTIVE, Duration: 30 day, Stop date: 04/16/16 21:00:00 RESEARCH EXECUTIVE Notes: (Same As: Bicitra, Cytra-2) Sodium citrate-citric acid (500-334 mg/5 mL): 1 mL contains sodium 1 mEq/mL and bicarbonate 1 mEq/mL Start Date: 03/18/16 Stop Date: 04/01/16 Status: Discontinued calcium gluconate + sodium chloride 0.9% INJ 80 mL 2,000 mg, 20 mL, Route: IVPB, ONCE, Dosing Weight 115, kg, Start date: 03/14/16 21:28:00 RESEARCH EXECUTIVE, Stop date: 03/14/16 21:28:00 RESEARCH EXECUTIVE Notes: WASTE: F/P - Sink; E - Municipal Trash Bin Start Date: 03/14/16 Stop Date: 03/14/16 Status: Completed Calmoseptine topical ointment 1 appl, Route: TOP, BID, Drug form: OINT, Start date: 03/19/16 17:00:00 RESEARCH EXECUTIVE, Dur ation: 30 day, Stop date: 04/18/16 9:00:00 RESEARCH EXECUTIVE Notes: (Same as: Calmoseptine) Start Date: 03/19/16 Stop Date: 04/01/16 Status: Discontinued carvedilol 25 mg, 1 tab, Route: PO, Drug form: TAB, BID, Dosing Weight 115, kg, Start date: 03/15/16 9:00:00 RESEARCH EXECUTIVE, Duration: 30 day, Stop date: 04/13/16 17:00:00 RESEARCH EXECUTIVE Notes: Give with food. (Same As: Coreg) Start Date: 03/15/16 Stop Date: 04/01/16 Status: Discontinued ceftaroline + sodium chloride 0.9% INJ 100 mL 300 mg, Route: IVPB, Q8H, Dosing Weight 115, kg, Start date: 03/29/16 8:00:00 CS T, Duration: 30 day, Stop date: 04/28/16 0:00:00 RESEARCH EXECUTIVE, For CrCL 15 - 30 ml/min Notes: Reserved for use by ID Physicians in refractory MRSA skin and skin struct ure infections or intolerance to vancomycin, daptomycin or linezolid.Non-Formula ry Drug MEDICATION WASTE Product Size: 600 mgProduct Wasted: ___ mg Start Date: 03/29/16 Stop Date: 03/31/16 Status: Discontinued ceftaroline + sodium chloride 0.9% INJ 100 mL 300 mg, Route: IVPB, [id number], Dosing Weight 115, kg, Start date: 03/26/16 17:00: 00 RESEARCH EXECUTIVE, Duration: 30 day, Stop date: 04/24/16 20:00:00 RESEARCH EXECUTIVE, For CrCL 15 - 30 ml/ min Notes: Reserved for use by ID Physicians in refractory MRSA skin and skin struct ure infections or intolerance to vancomycin, daptomycin or linezolid.Non-Formula ry Drug MEDICATION WASTE Product Size: 600 mgProduct Wasted: 0 mg Start Date: 03/26/16 Stop Date: 03/29/16 Status: Discontinued clindamycin 300 mg, 2 cap, Route: PO, Drug form: CAP, [id number], Dosing Weight 115, kg, Start d ate: 03/20/16 13:00:00 RESEARCH EXECUTIVE, Duration: 30 day, Stop date: 04/19/16 8:00:00 RESEARCH EXECUTIVE Notes: (Same As: Cleocin) Start Date: 03/20/16 Stop Date: 03/26/16 Status: Discontinued D5W 1/2NS 1,000 mL 1,000 mL, Rate: 250 ml/hr, Infuse over: 4 hr, Route: IV, Dosing Weight 115 kg, T otal Volume: 1,000, Start date: 03/14/16 14:04:00 RESEARCH EXECUTIVE, Duration: 30 day, Stop da te: 04/13/16 14:03:00 RESEARCH EXECUTIVE Start Date: 03/14/16 Stop Date: 03/15/16 Status: Discontinued D5W 1/2NS 1,000 mL 1,000 mL, Rate: 125 ml/hr, Infuse over: 8 hr, Route: IV, Dosing Weight 115 kg, T otal Volume: 1,000, Start date: 03/22/16 15:23:00 RESEARCH EXECUTIVE, Duration: 30 day, Stop da te: 04/21/16 15:22:00 RESEARCH EXECUTIVE Start Date: 03/22/16 Stop Date: 03/25/16 Status: Discontinued Dextrose 50% Syringe 12.5 gm, 25 mL, Route: IVP, Drug Form: INJ, Dosing Weight 115, kg, PRN, PRN Bloo d Glucose Results, Start date: 03/15/16 5:07:00 RESEARCH EXECUTIVE, Duration: 30 day, Stop date : 04/14/16 5:06:00 RESEARCH EXECUTIVE Start Date: 03/15/16 Stop Date: 04/01/16 Status: Discontinued Dextrose 50% Syringe 25 gm, 50 mL, Route: IVP, Drug Form: INJ, Dosing Weight 115, kg, PRN, PRN Blood Glucose Results, Start date: 03/15/16 5:07:00 RESEARCH EXECUTIVE, Duration: 30 day, Stop date: 04/14/16 5:06:00 RESEARCH EXECUTIVE Start Date: 03/15/16 Stop Date: 04/01/16 Status: Discontinued Dextrose 50% Syringe 12.5 gm, 25 mL, Route: IVP, Drug Form: INJ, Dosing Weight 115, kg, PRN, PRN Bloo d Glucose Results, Start date: 03/14/16 14:04:00 RESEARCH EXECUTIVE, Duration: 30 day, Stop harish e: 04/13/16 14:03:00 RESEARCH EXECUTIVE Start Date: 03/14/16 Stop Date: 03/15/16 Status: Discontinued Dextrose 50% Syringe 25 gm, 50 mL, Route: IVP, Drug Form: INJ, Dosing Weight 115, kg, PRN, PRN Blood Glucose Results, Start date: 03/14/16 14:04:00 RESEARCH EXECUTIVE, Duration: 30 day, Stop date: 04/13/16 14:03:00 RESEARCH EXECUTIVE Start Date: 03/14/16 Stop Date: 03/15/16 Status: Discontinued Dilaudid 0.5 mg, 0.25 mL, Route: IVP, Drug form: INJ, ONCE, Dosing Weight 115, kg, Priori ty: STAT, Start date: 03/14/16 20:37:00 RESEARCH EXECUTIVE, Stop date: 03/14/16 20:37:00 RESEARCH EXECUTIVE Notes: Same as Dilaudid Start Date: 03/14/16 Stop Date: 03/14/16 Status: Completed docusate 100 mg, 1 cap, Route: PO, Drug form: CAP, BID, Dosing Weight 115, kg, PRN Roland steward, Start date: 03/15/16 1:37:00 RESEARCH EXECUTIVE, Duration: 30 day, Stop date: 04/14/16 1:36:00 RESEARCH EXECUTIVE Notes: (Same as: Colace) (Do Not Crush) Start Date: 03/15/16 Stop Date: 04/01/16 Status: Discontinued ferrous sulfate 325 mg, 1 tab, Route: PO, Drug form: TAB, BID, Dosing Weight 115, kg, Start date : 03/15/16 9:00:00 RESEARCH EXECUTIVE, Duration: 30 day, Stop date: 04/13/16 17:00:00 RESEARCH EXECUTIVE Notes: Give with food.iron elemental [id number] as ferrous sulfateDose=___mg marce mental iron Start Date: 03/15/16 Stop Date: 03/15/16 Status: Deleted ferrous sulfate 325 mg, 1 tab, Route: PO, Drug form: ECTAB, BID, Dosing Weight 115, kg, Start da te: 03/15/16 18:00:00 RESEARCH EXECUTIVE, Duration: 30 day, Stop date: 04/14/16 17:00:00 RESEARCH EXECUTIVE Notes: Give with food. "Do Not Crush" Start Date: 03/15/16 Stop Date: 04/01/16 Status: Discontinued gabapentin 100 mg oral capsule 100 mg, 1 cap, Route: PO, Drug form: CAP, Daily, Dosing Weight 115, kg, (CrCl < 15 ml/min), Start date: 03/18/16 9:00:00 RESEARCH EXECUTIVE, Duration: 30 day, Stop date: 03/25 08/07 9:00:00 RESEARCH EXECUTIVE Notes: (Same as: Neurontin) Start Date: 03/18/16 Stop Date: 03/19/16 Status: Discontinued gabapentin 300 mg oral capsule 300 mg, 1 cap, Route: PO, Drug form: CAP, Q12H, Dosing Weight 115, kg, Start harish e: 03/15/16 9:00:00 RESEARCH EXECUTIVE, Duration: 30 day, Stop date: 04/13/16 21:00:00 RESEARCH EXECUTIVE Notes: (Same as: Neurontin) Start Date: 03/15/16 Stop Date: 03/17/16 Status: Discontinued glucagon 1 mg, Route: IM, Drug form: PDR/INJ, PRN, Dosing Weight 115, kg, PRN Blood Gluco se Results, Start date: 03/15/16 5:07:00 RESEARCH EXECUTIVE, Duration: 30 day, Stop date: 04/14 5:06:00 RESEARCH EXECUTIVE Start Date: 03/15/16 Stop Date: 04/01/16 Status: Discontinued glucagon 1 mg, Route: IM, Drug form: PDR/INJ, PRN, Dosing Weight 115, kg, PRN Blood Gluco se Results, Start date: 03/14/16 14:04:00 RESEARCH EXECUTIVE, Duration: 30 day, Stop date: 03/25 05/09 14:03:00 RESEARCH EXECUTIVE Start Date: 03/14/16 Stop Date: 03/15/16 Status: Discontinued heparin 5000 units/mL injectable solution 5,000 unit, 1 mL, Route: SUB-Q, Drug form: INJ, Q8H, Dosing Weight 115, kg, Star t date: 03/15/16 8:00:00 RESEARCH EXECUTIVE, Duration: 30 day, Stop date: 04/14/16 0:00:00 RESEARCH EXECUTIVE Notes: porcine heparin Start Date: 03/15/16 Stop Date: 04/01/16 Status: Discontinued hydrALAZINE 10 mg, 0.5 mL, Route: IVP, Drug form: INJ, Q8H, Dosing Weight 115, kg, PRN [place] savana BP, Start date: 03/22/16 21:11:00 RESEARCH EXECUTIVE, Duration: 30 day, Stop date: 04/21/16 21:10:00 RESEARCH EXECUTIVE Notes: (Same as: Apresoline)Push over 5 minutes Start Date: 03/22/16 Stop Date: 03/25/16 Status: Discontinued hydrALAZINE 10 mg, 0.5 mL, Route: IVP, Drug form: INJ, Q4H, Dosing Weight 115, kg, PRN [place] savana BP, Start date: 03/22/16 20:58:00 RESEARCH EXECUTIVE, Duration: 30 day, Stop date: 04/21/16 20:57:00 RESEARCH EXECUTIVE Notes: (Same as: Apresoline)Push over 5 minutes Start Date: 03/22/16 Stop Date: 03/22/16 Status: Discontinued hydrALAZINE 25 mg oral tablet 50 mg, 2 tab, Route: PO, Drug form: TAB, TID, Dosing Weight 115, kg, Start date: 03/27/16 16:00:00 RESEARCH EXECUTIVE, Duration: 30 day, Stop date: 04/26/16 8:00:00 RESEARCH EXECUTIVE Notes: (Same as: Apresoline) May interfere w/enteral feedings Take With Food. Start Date: 03/27/16 Stop Date: 04/01/16 Status: Discontinued hydrALAZINE 25 mg oral tablet 25 mg, 1 tab, Route: PO, Drug form: TAB, TID, Dosing Weight 115, kg, Priority: N OW, Start date: 03/26/16 17:33:00 RESEARCH EXECUTIVE, Duration: 30 day, Stop date: 04/25/16 17: 00:00 RESEARCH EXECUTIVE Notes: (Same as: Apresoline) May interfere w/enteral feedings Take With Food. Start Date: 03/26/16 Stop Date: 03/27/16 Status: Discontinued hydromorphone 1 mg, 0.5 mL, Route: IVP, Drug form: INJ, ONCE, Dosing Weight 115, kg, Priority: STAT, Start date: 03/14/16 14:02:00 RESEARCH EXECUTIVE, Stop date: 03/14/16 14:02:00 RESEARCH EXECUTIVE Notes: Same as Dilaudid Start Date: 03/14/16 Stop Date: 03/14/16 Status: Completed ibuprofen 600 mg, Route: PO, ONCE, Dosing Weight 115, kg, Priority: STAT, Start date: 02/23 05/09 18:26:00 RESEARCH EXECUTIVE, Stop date: 03/14/16 18:26:00 RESEARCH EXECUTIVE Start Date: 03/14/16 Stop Date: 03/14/16 Status: Completed Imodium A-D 1 mg, 5 mL, Route: PO, Drug form: LIQ, Q6H, Dosing Weight 115, kg, Start date: 05/29/15 18:00:00 RESEARCH EXECUTIVE, Duration: 30 day, Stop date: 04/27/16 12:00:00 RESEARCH EXECUTIVE Notes: Same as Imodium Start Date: 03/28/16 Stop Date: 04/01/16 Status: Discontinued Insulin (regular) Titrate IV additive 100 unit + sodium chloride 0.9% INJ 99 mL 99 mL, Rate: Titrate, Dosing Weight 115, kg, Route: IV, Total Volume: 100, Prior ity: Routine, Start Date: 03/14/16 14:04:00 RESEARCH EXECUTIVE, Duration: 30 day, Stop date: 14:03:00 RESEARCH EXECUTIVE, Replace Every: 24 hr Notes: (Same as: Humulin R and NovoLIN R)WASTE: F/P - Black; E - Municipal Trash Bin (Do not shake) Start Date: 03/14/16 Stop Date: 03/15/16 Status: Discontinued insulin aspart 4 unit, 0.04 mL, Route: SUB-Q, Drug form: SOLN, Sliding Scale, Dosing Weight 115 , kg, PRN Blood Glucose Results, Start date: 03/15/16 5:07:00 RESEARCH EXECUTIVE, Duration: 30 day, Stop date: 04/14/16 5:06:00 RESEARCH EXECUTIVE Notes: Roll in palms of hands gently; Do not shake vigorously. (Same as: Jarrod Angulo)"single patient use only"WASTE: F/P - Black; E - Municipal Trash Bin Stable f or 28 days at room temperature.Expires in days from Date Start Date: 03/15/16 Stop Date: 04/01/16 Status: Discontinued insulin aspart 6 unit, 0.06 mL, Route: SUB-Q, Drug form: SOLN, Sliding Scale, Dosing Weight 115 , kg, PRN Blood Glucose Results, Start date: 03/15/16 5:07:00 RESEARCH EXECUTIVE, Duration: 30 day, Stop date: 04/14/16 5:06:00 RESEARCH EXECUTIVE Notes: Roll in palms of hands gently; Do not shake vigorously. (Same as: Jarrod Angulo)"single patient use only"WASTE: F/P - Black; E - Municipal Trash Bin Stable f or 28 days at room temperature.Expires in days from Date Start Date: 03/15/16 Stop Date: 04/01/16 Status: Discontinued insulin aspart 10 unit, 0.1 mL, Route: SUB-Q, Drug form: SOLN, Sliding Scale, Dosing Weight 115 , kg, PRN Blood Glucose Results, Start date: 03/15/16 5:07:00 RESEARCH EXECUTIVE, Duration: 30 day, Stop date: 04/14/16 5:06:00 RESEARCH EXECUTIVE Notes: Roll in palms of hands gently; Do not shake vigorously. (Same as: Jarrod Angulo)"single patient use only"WASTE: F/P - Black; E - Municipal Trash Bin Stable f or 28 days at room temperature.Expires in days from Date Start Date: 03/15/16 Stop Date: 04/01/16 Status: Discontinued insulin aspart 8 unit, 0.08 mL, Route: SUB-Q, Drug form: SOLN, Sliding Scale, Dosing Weight 115 , kg, PRN Blood Glucose Results, Start date: 03/15/16 5:07:00 RESEARCH EXECUTIVE, Duration: 30 day, Stop date: 04/14/16 5:06:00 RESEARCH EXECUTIVE Notes: Roll in palms of hands gently; Do not shake vigorously. (Same as: Jarrod Angulo)"single patient use only"WASTE: F/P - Black; E - Municipal Trash Bin Stable f or 28 days at room temperature.Expires in days from Date Start Date: 03/15/16 Stop Date: 04/01/16 Status: Discontinued insulin aspart 2 unit, 0.02 mL, Route: SUB-Q, Drug form: SOLN, Sliding Scale, Dosing Weight 115 , kg, PRN Blood Glucose Results, Start date: 03/15/16 5:07:00 RESEARCH EXECUTIVE, Duration: 30 day, Stop date: 04/14/16 5:06:00 RESEARCH EXECUTIVE Notes: Roll in palms of hands gently; Do not shake vigorously. (Same as: Jarrod Angulo)"single patient use only"WASTE: F/P - Black; E - Municipal Trash Bin Stable f or 28 days at room temperature.Expires in days from Date Start Date: 03/15/16 Stop Date: 04/01/16 Status: Discontinued Isolyte S (PH 7.4) 1000 mL 1,000 mL 1,000 mL, Rate: 100 ml/hr, Infuse over: 10 hr, Route: IV, Dosing Weight 115 kg, Total Volume: 1,000, Start date: 03/15/16 10:25:00 RESEARCH EXECUTIVE, Stop date: 04/14/16 10:2 4:00 RESEARCH EXECUTIVE Notes: (Same as: Isolyte S PH 7.4) Start Date: 03/15/16 Stop Date: 03/19/16 Status: Discontinued Levemir 5 unit, 0.05 mL, Route: SUB-Q, Drug form: SOLN, Bedtime, Dosing Weight 115, kg, Start date: 03/17/16 21:00:00 RESEARCH EXECUTIVE, Stop date: 04/15/16 21:00:00 RESEARCH EXECUTIVE Notes: Same as LevemirDo not hold insulin without contacting prescriberWASTE: F/ P - Black; E - Municipal Trash Bin "single patient use only" Start Date: 03/17/16 Stop Date: 03/27/16 Status: Discontinued Levemir 30 unit, 0.3 mL, Route: SUB-Q, Drug form: SOLN, Bedtime, Dosing Weight 115, kg, Start date: 03/15/16 21:00:00 RESEARCH EXECUTIVE, Duration: 30 day, Stop date: 04/13/16 21:00:0 0 RESEARCH EXECUTIVE Notes: Same as LevemirDo not hold insulin without contacting prescriberWASTE: F/ P - Black; E - Municipal Trash Bin "single patient use only" Start Date: 03/15/16 Stop Date: 03/17/16 Status: Discontinued lisinopril 40 mg, 2 tab, Route: PO, Drug form: TAB, Daily, Dosing Weight 115, kg, Start harish e: 03/25/16 13:45:00 RESEARCH EXECUTIVE, Duration: 30 day, Stop date: 04/24/16 9:00:00 RESEARCH EXECUTIVE Notes: (Same as: Prinivil, Zestril) Start Date: 03/25/16 Stop Date: 04/01/16 Status: Discontinued lisinopril 20 mg oral tablet 40 mg = 2 tab, PO, Daily, # 60 tab, 2 Refill(s), Pharmacy: [facility] [id number] Start Date: 04/01/16 Stop Date: 06/30/16 Status: Ordered magnesium sulfate 1 gm, 50 mL, Route: IVPB, Drug form: INJ, ONCE, Dosing Weight 115, kg, Start harish e: 03/15/16 1:47:00 RESEARCH EXECUTIVE, Stop date: 03/15/16 1:47:00 RESEARCH EXECUTIVE Notes: WASTE: F/P - Sink; E - Municipal Trash Bin Start Date: 03/15/16 Stop Date: 03/15/16 Status: Completed magnesium sulfate 1 gm, 100 mL, Route: IVPB, Drug form: INJ, PRN, Dosing Weight 115, kg, PRN Abnor mal Lab Result, Start date: 03/14/16 14:04:00 RESEARCH EXECUTIVE, Duration: 30 day, Stop date: 04/13/16 14:03:00 RESEARCH EXECUTIVE Notes: WASTE: F/P - Sink; E - Municipal Trash Bin Start Date: 03/14/16 Stop Date: 04/01/16 Status: Discontinued magnesium sulfate 2 gm in Water 50 ml 1 gm, 25 mL, Route: IVPB, Drug form: INJ, ONCE, Dosing Weight 115, kg, Start harish e: 03/14/16 21:30:00 RESEARCH EXECUTIVE, Duration: 2 hr, Stop date: 03/14/16 21:30:00 RESEARCH EXECUTIVE Notes: WASTE: F/P - Sink; E - Municipal Trash Bin Start Date: 03/14/16 Stop Date: 03/14/16 Status: Completed magnesium sulfate 2gm / NS 50ml (premixed) 2 gm, 50 mL, Route: IVPB, Drug form: INJ, ONCE, Dosing Weight 115, kg, Start harish e: 03/14/16 14:53:00 RESEARCH EXECUTIVE, Duration: 2 hr, Stop date: 03/14/16 14:53:00 RESEARCH EXECUTIVE Notes: WASTE: F/P - Sink; E - Municipal Trash Bin Start Date: 03/14/16 Stop Date: 03/14/16 Status: Completed melatonin 3 mg, 1 tab, Route: PO, Drug form: TAB, Bedtime, Dosing Weight 115, kg, PRN Slee p, Start date: 03/15/16 1:46:00 RESEARCH EXECUTIVE, Duration: 30 day, Stop date: 04/14/16 1:45: 00 RESEARCH EXECUTIVE Notes: (Same as: Melatonin) Start Date: 03/15/16 Stop Date: 03/31/16 Status: Discontinued melatonin 3 mg oral tablet 3 mg, 1 tab, Route: PO, Drug Form: TAB, Dosing Weight 115, kg, Bedtime, Start da te: 03/30/16 21:00:00 RESEARCH EXECUTIVE, Duration: 30 day, Stop date: 04/28/16 21:00:00 RESEARCH EXECUTIVE Notes: (Same as: Melatonin) Start Date: 03/30/16 Stop Date: 04/01/16 Status: Discontinued minocycline 100 mg, 1 cap, Route: PO, Drug form: CAP, [id number], Dosing Weight 115, kg, Start date: 04/01/16 9:00:00 RESEARCH EXECUTIVE, Duration: 30 day, Stop date: 04/30/16 21:00:00 RESEARCH EXECUTIVE Notes: (Same as:Minocin) No milk/antacids/iron. Start Date: 04/01/16 Stop Date: 04/01/16 Status: Discontinued minocycline 200 mg, 2 cap, Route: PO, Drug form: CAP, ONCE, Dosing Weight 115, kg, Start harish e: 03/31/16 17:49:00 RESEARCH EXECUTIVE, Stop date: 03/31/16 17:49:00 RESEARCH EXECUTIVE Notes: (Same as:Minocin) No milk/antacids/iron. Start Date: 03/31/16 Stop Date: 03/31/16 Status: Completed minocycline 100 mg oral capsule 100 mg = 1 cap, PO, [id number], X 30 day, # 60 cap, 3 Refill(s), [id number] Start Date: 04/01/16 Stop Date: 07/30/16 Status: Ordered morphine Sulfate 4 mg, 1 mL, Route: IVP, Drug form: SOLN, ONCE, Dosing Weight 115, kg, Start date : 03/22/16 11:01:00 RESEARCH EXECUTIVE, Stop date: 03/22/16 11:01:00 RESEARCH EXECUTIVE Notes: (Same as:MORPhine Sulfate) Start Date: 03/22/16 Stop Date: 03/22/16 Status: Completed morphine Sulfate 2 mg, 1 mL, Route: IVP, Drug form: INJ, ONCE, Dosing Weight 115, kg, pain 7-10, Start date: 03/16/16 21:15:00 RESEARCH EXECUTIVE, Stop date: 03/16/16 21:15:00 RESEARCH EXECUTIVE Notes: (Same as:MORPhine Sulfate) Start Date: 03/16/16 Stop Date: 03/16/16 Status: Completed Sterling 5/325 oral tablet 2 tab, Route: PO, Drug Form: TAB, Dosing Weight 115, kg, Q6H, PRN Pain Score 1-3 , Start date: 03/15/16 1:45:00 RESEARCH EXECUTIVE, Duration: 30 day, Stop date: 04/14/16 1:44:0 0 RESEARCH EXECUTIVE Notes: (Same as: Sterling 325/5) Do not exceed 4gm/day of acetaminophen. Start Date: 03/15/16 Stop Date: 03/15/16 Status: Discontinued NS (Bolus) IV 1,000 mL, 1,000 ml/hr, Infuse Over: 1 hr, Route: IV, 1,000, Drug form: INJ, ONCE , Priority: STAT, Dosing Weight 115 kg, Start date: 03/16/16 16:50:00 RESEARCH EXECUTIVE, Durat ion: 1 doses or times, Stop date: 03/16/16 16:50:00 RESEARCH EXECUTIVE Start Date: 03/16/16 Stop Date: 03/16/16 Status: Completed NS (Bolus) IV 1,000 mL, 1,000 ml/hr, Infuse Over: 1 hr, Route: IV, ONCE, Priority: STAT, Dosin g Weight 115 kg, Start date: 03/14/16 13:32:00 RESEARCH EXECUTIVE, Duration: 1 doses or times, Stop date: 03/14/16 13:32:00 RESEARCH EXECUTIVE Start Date: 03/14/16 Stop Date: 03/14/16 Status: Completed ondansetron 4 mg, 2 mL, Route: IVP, Drug form: INJ, Q6H, Dosing Weight 115, kg, PRN Nausea & Vomiting, Start date: 03/15/16 1:37:00 RESEARCH EXECUTIVE, Duration: 30 day, Stop date: 1:36:00 RESEARCH EXECUTIVE Notes: (Same as: Luis) MEDICATION WASTE Product Size: 4 mgProduct Was savana: ___ mg Start Date: 03/15/16 Stop Date: 04/01/16 Status: Discontinued oxyCODONE 5 mg oral tablet 5 mg, 1 tab, Route: PO, Drug form: TAB, Q4H, Dosing Weight 115, kg, PRN Pain Sco re 4-6, Start date: 03/15/16 9:55:00 RESEARCH EXECUTIVE, Duration: 30 day, Stop date: 04/14/16 9:54:00 RESEARCH EXECUTIVE Notes: (Same as: Roxicodone) Start Date: 03/15/16 Stop Date: 03/22/16 Status: Discontinued oxyCODONE 5 mg oral tablet 5 mg, 1 tab, Route: PO, Drug form: TAB, Q4H, Dosing Weight 115, kg, PRN Pain Sco re 6-10, Start date: 03/22/16 11:01:00 RESEARCH EXECUTIVE, Duration: 30 day, Stop date: 6 11:00:00 RESEARCH EXECUTIVE Notes: (Same as: Roxicodone) Start Date: 03/22/16 Stop Date: 04/01/16 Status: Discontinued potassium chloride 20 mEq, 100 mL, Route: IVPB, Drug form: INJ, PRN, Dosing Weight 115, kg, PRN Abn ormal Lab Result, Via central line, Start date: 03/14/16 14:04:00 RESEARCH EXECUTIVE, Duration: 30 day, Stop date: 04/13/16 14:03:00 RESEARCH EXECUTIVE Notes: (Same as: KCL) Infuse no faster than 10 mEq/hr if given peripherally. Start Date: 03/14/16 Stop Date: 03/18/16 Status: Discontinued potassium chloride 10 mEq, 50 mL, Route: IVPB, Drug form: INJ, PRN, Dosing Weight 115, kg, PRN Abno rmal Lab Result, Via peripheral line, Start date: 03/14/16 14:04:00 RESEARCH EXECUTIVE, Duratio n: 30 day, Stop date: 04/13/16 14:03:00 RESEARCH EXECUTIVE Notes: (Same as: KCL) Infuse over 2 hours. Start Date: 03/14/16 Stop Date: 03/18/16 Status: Discontinued potassium phosphate + sodium chloride 0.9% INJ 250 mL 15 mmol, 5 mL, Route: IVPB, PRN, Dosing Weight 115, kg, PRN Abnormal Lab Result, Start date: 03/14/16 14:04:00 RESEARCH EXECUTIVE, Duration: 30 day, Stop date: 04/13/16 14:03: 00 RESEARCH EXECUTIVE Notes: (Same as: K Phosphate.) 1 mMol phoshate has 1.47 mEq potassium Infuse o zechariah 4 hours Start Date: 03/14/16 Stop Date: 03/18/16 Status: Discontinued potassium phosphate + sodium chloride 0.9% INJ 250 mL 30 mmol, 10 mL, Route: IVPB, PRN, Dosing Weight 115, kg, PRN Abnormal Lab Result , Start date: 03/14/16 14:04:00 RESEARCH EXECUTIVE, Duration: 30 day, Stop date: 04/13/16 14:03 :00 RESEARCH EXECUTIVE Notes: (Same as: K Phosphate.) 1 mMol phoshate has 1.47 mEq potassium Infuse o zechariah 4 hours Start Date: 03/14/16 Stop Date: 03/18/16 Status: Discontinued promethazine 12.5 mg, 1 tab, Route: PO, Drug form: TAB, Q6H, Dosing Weight 115, kg, PRN Nause a & Vomiting, Start date: 03/25/16 13:31:00 RESEARCH EXECUTIVE, Duration: 30 day, Stop date: 04/24/16 13:30:00 RESEARCH EXECUTIVE Notes: (Same as: Phenergan) Start Date: 03/25/16 Stop Date: 04/01/16 Status: Discontinued rifaMPIN 600 mg, 2 cap, Route: PO, Drug form: CAP, [id number], Dosing Weight 115, kg, Start date: 03/31/16 18:00:00 RESEARCH EXECUTIVE, Duration: 30 day, Stop date: 04/29/16 18:00:00 RESEARCH EXECUTIVE Notes: (Same as: Rifadin) Start Date: 03/31/16 Stop Date: 04/01/16 Status: Discontinued rifaMPIN 300 mg oral capsule 600 mg = 2 cap, PO, [id number], X 30 day, # 60 cap, 0 Refill(s), Pharmacy: [id number] Start Date: 04/01/16 Stop Date: 05/01/16 Status: Ordered sertraline 50 mg, 1 tab, Route: PO, Drug form: TAB, Daily, Dosing Weight 115, kg, Start harish e: 03/15/16 9:00:00 RESEARCH EXECUTIVE, Duration: 30 day, Stop date: 04/13/16 9:00:00 RESEARCH EXECUTIVE Notes: (Same as: Zoloft) Start Date: 03/15/16 Stop Date: 04/01/16 Status: Discontinued simethicone 80 mg, 1 tab, Route: CHEW, Drug form: CHEWTAB, TID, Dosing Weight 115, kg, PRN G as, Start date: 03/31/16 17:00:00 RESEARCH EXECUTIVE, Duration: 30 day, Stop date: 04/30/16 16: 59:00 RESEARCH EXECUTIVE Notes: (Same as: Meganjacky) Start Date: 03/31/16 Stop Date: 04/01/16 Status: Discontinued Sodium Chloride 0.9% (Bolus) IV 500 mL, 1,000 ml/hr, Infuse Over: 30 minutes, Route: IV, 500, Drug form: INJ, ON CE, Priority: STAT, Dosing Weight 115 kg, Start date: 03/14/16 20:12:00 RESEARCH EXECUTIVE, Sto p date: 03/14/16 20:12:00 RESEARCH EXECUTIVE Start Date: 03/14/16 Stop Date: 03/14/16 Status: Completed Sodium Chloride 0.9% (Bolus) IV 500 mL, 2,000 ml/hr, Infuse Over: 30 minutes, Route: IV, ONCE, Priority: STAT, D osing Weight 115 kg, Start date: 03/14/16 15:55:00 RESEARCH EXECUTIVE, Duration: 1 doses or satnam es, Stop date: 03/14/16 15:55:00 RESEARCH EXECUTIVE Start Date: 03/14/16 Stop Date: 03/14/16 Status: Completed sodium chloride 0.9% 1000 ml INJ 1,000 mL 1,000 mL, Rate: 125 ml/hr, Infuse over: 8 hr, Route: IV, Dosing Weight 115 kg, T otal Volume: 1,000, Start date: 03/27/16 4:28:00 RESEARCH EXECUTIVE, Duration: 30 day, Stop harish e: 04/26/16 4:27:00 RESEARCH EXECUTIVE Start Date: 03/27/16 Stop Date: 03/28/16 Status: Discontinued sodium chloride 0.9% 1000 ml INJ 250 mL 250 mL, Rate: associate director of sales for use with blood product administration, Dosing Weight 1 15, kg, Route: IV, Total Volume: 250, Start Date: 03/17/16 4:38:00 RESEARCH EXECUTIVE, Duration : 30 day, Stop date: 04/16/16 4:37:00 RESEARCH EXECUTIVE, Replace Every: 24 hr Start Date: 03/17/16 Stop Date: 03/23/16 Status: Discontinued tramadol 50 mg oral tablet 50 mg = 1 tab, PO, Q6H, X 7 day, # 28 tab, 0 Refill(s) Start Date: 04/01/16 Stop Date: 04/08/16 Status: Ordered tramadol 50 mg oral tablet 50 mg, 1 tab, Route: PO, Drug form: TAB, Q6H, Dosing Weight 115, kg, Start date: 03/18/16 12:00:00 RESEARCH EXECUTIVE, Duration: 30 day, Stop date: 04/17/16 6:00:00 RESEARCH EXECUTIVE Notes: Not to exceed 400mg/day. (Same As: Ultram) Start Date: 03/18/16 Stop Date: 03/19/16 Status: Discontinued tramadol 50 mg oral tablet 50 mg, 1 tab, Route: PO, Drug form: TAB, Q6H, Dosing Weight 115, kg, Start date: 03/19/16 15:03:00 RESEARCH EXECUTIVE, Stop date: 04/18/16 18:00:00 RESEARCH EXECUTIVE Notes: Not to exceed 400mg/day. (Same As: Ultram) Start Date: 03/19/16 Stop Date: 04/01/16 Status: Discontinued vancomycin 500 mg, Route: IV, Drug form: PDR/INJ, ONCE, Dosing Weight 115, kg, Start date: 03/18/16 7:22:00 RESEARCH EXECUTIVE, Stop date: 03/18/16 7:22:00 RESEARCH EXECUTIVE Notes: TIME CRITICAL MEDICATION(Same As: Vancocin) Start Date: 03/18/16 Stop Date: 03/18/16 Status: Completed vancomycin + sodium chloride 0.9% 500 mL INJ (for IV set) 500 mL 2,500 mg, Route: IVPB, ONCE, Dosing Weight 115, kg, Priority: STAT, Start date: 03/14/16 13:28:00 RESEARCH EXECUTIVE, Stop date: 03/14/16 13:28:00 RESEARCH EXECUTIVE Notes: TIME CRITICAL MEDICATION(Same As: Vancocin)Infusion rate< 1000 mg: infuse over 1 [id number] - 1500 mg: infuse over 1.5 [id number] - 2000 mg: infuse over 2 hours> 2001 mg: infuse over 2.5 hours MEDICATION WASTE Product Size: 1000 mgProduct Wasted: ___ mg Start Date: 03/14/16 Stop Date: 03/14/16 Status: Completed vancomycin + sodium chloride 0.9% 500 ml INJ 500 mL 1.75 gm, Route: IV, ONCE, Dosing Weight 115, kg, Start date: 03/15/16 1:44:00 CS T, Stop date: 03/15/16 1:44:00 RESEARCH EXECUTIVE Notes: TIME CRITICAL MEDICATION(Same As: Vancocin)Infusion rate< 1000 mg: infuse over 1 [id number] - 1500 mg: infuse over 1.5 hoursVancomycin FOR IV SET [id number] - 2000 mg: infuse over 2 hours> 2001 mg: infuse over 2.5 hours MEDICATION WASTE Product Size: 1000 mgProduct Wasted: ___ mg Start Date: 03/15/16 Stop Date: 03/15/16 Status: Discontinued Voltaren Topical 1% topical gel 2 gm, Route: TOP, Drug form: GEL, QID, Dosing Weight 115, kg, Start date: 9:00:00 RESEARCH EXECUTIVE, Duration: 30 day, Stop date: 04/16/16 21:00:00 RESEARCH EXECUTIVE Start Date: 03/18/16 Stop Date: 03/18/16 Status: Canceled Zofran 4 mg, Route: IVP, Drug form: INJ, ONCE, Dosing Weight 115, kg, Priority: STAT, S tart date: 03/14/16 22:18:00 RESEARCH EXECUTIVE, Stop date: 03/14/16 22:18:00 RESEARCH EXECUTIVE Start Date: 03/14/16 Stop Date: 03/14/16 Status: Completed Zosyn 4.5 gm, Route: IVPB, ONCE, Dosing Weight 115, kg, Priority: STAT, Start date: 13:28:00 RESEARCH EXECUTIVE, Stop date: 03/14/16 13:28:00 RESEARCH EXECUTIVE Start Date: 03/14/16 Stop Date: 03/14/16 Status: Completed Zosyn 3.375 gm, Route: IVPB, Drug form: PDR/INJ, [id number], Dosing Weight 115, kg, CrCl < 20 ml/min infuse over 4 hours, Start date: 03/15/16 11:15:00 RESEARCH EXECUTIVE, Duration: 30 day, Stop date: 04/13/16 23:15:00 RESEARCH EXECUTIVE Notes: (Same as: Zosyn)Dosing based on Piperacillin component MEDICATION [place] INGA Product Size: 3375 mgProduct Wasted: ___ mg Start Date: 03/15/16 Stop Date: 03/17/16 Status: Discontinued Results BLOOD BANK RESULTS 1 2 3 Most recent to oldest [Reference Range]: A POS *Unknown* (03/20/16 6:13 AM) A POS *Unknown* (03/14/16 6:55 PM) ABO/Rh Negative (03/20/16 6:13 AM) Negative (03/14/16 6:55 PM) Antibody Scrn Product available (03/20/16 8:41 AM) Product available (03/17/16 4:38 AM) RBC product ELECTROLYTES 1 2 3 Most recent to oldest [Reference Range]: 143 mEq/L (04/01/16 4:53 AM) 142 mEq/L (03/31/16 3:31 AM) 144 mEq/L (03/30/16 9:45 AM) Sodium Lvl [135-145 mEq/L] 4.6 mEq/L 1 (04/01/16 4:53 AM) 3.7 mEq/L (03/31/16 3:31 AM) 3.7 mEq/L (03/30/16 9:45 AM) Potassium Lvl [3.5-5.1 mEq/L] 107 mEq/L (04/01/16 4:53 AM) 106 mEq/L (03/31/16 3:31 AM) 108 mEq/L (03/30/16 9:45 AM) Chloride Lvl [95-109 mEq/L] 24 mEq/L (04/01/16 4:53 AM) 28 mEq/L (03/31/16 3:31 AM) 29 mEq/L (03/30/16 9:45 AM) CO2 [24-32 mEq/L] 16.6 mEq/L (04/01/16 4:53 AM) 11.7 mEq/L (03/31/16 3:31 AM) 10.7 mEq/L (03/30/16 9:45 AM) AGAP [10.0-20.0 mEq/L] 1Result Comment: slight hemolysis CHEM PANEL 1 2 3 Most recent to oldest [Reference Range]: 3.01 mg/dL *HI* (04/01/16 4:53 AM) 3.01 mg/dL *HI* (03/31/16 3:31 AM) 3.03 mg/dL *HI* (03/30/16 9:45 AM) Creatinine Lvl [0.50-1.40 mg/dL] 21 mL/min/1.73m2 1 *NA* (04/01/16 4:53 AM) 21 mL/min/1.73m2 2 *NA* (03/31/16 3:31 AM) 21 mL/min/1.73m2 3 *NA* (03/30/16 9:45 AM) eGFR 15 mg/dL (04/01/16 4:53 AM) 15 mg/dL (03/31/16 3:31 AM) 18 mg/dL (03/30/16 9:45 AM) BUN [7-22 mg/dL] 8 (03/20/16 6:13 AM) 8 (03/18/16 5:28 AM) 8 (03/17/16 3:02 AM) B/C Ratio [6-25] 63 mg/dL *LOW* (04/01/16 4:53 AM) 74 mg/dL (03/31/16 3:31 AM) 85 mg/dL (03/30/16 9:45 AM) Glucose Lvl [70-99 mg/dL] 7.0 g/dL (03/20/16 6:13 AM) 6.7 g/dL (03/18/16 5:28 AM) 6.6 g/dL (03/17/16 3:02 AM) Total Protein [6.4-8.4 g/dL] 1.1 g/dL *LOW* (03/20/16 6:13 AM) 1.0 g/dL *LOW* (03/18/16 5:28 AM) 0.9 g/dL *LOW* (03/17/16 3:02 AM) Albumin Lvl [3.5-5.0 g/dL] 5.9 g/dL *HI* (03/20/16 6:13 AM) 5.7 g/dL *HI* (03/18/16 5:28 AM) 5.7 g/dL *HI* (03/17/16 3:02 AM) Globulin [2.7-4.2 g/dL] 0.2 *LOW* (03/20/16 6:13 AM) 0.2 *LOW* (03/18/16 5:28 AM) 0.2 *LOW* (03/17/16 3:02 AM) A/G Ratio [0.7-1.6] 7.5 mg/dL *LOW* (04/01/16 4:53 AM) 7.6 mg/dL *LOW* (03/31/16 3:31 AM) 7.6 mg/dL *LOW* (03/30/16 9:45 AM) Calcium Lvl [8.5-10.5 mg/dL] 5.0 mg/dL *HI* (03/15/16 2:37 PM) 3.7 mg/dL (03/15/16 4:29 AM) 3.8 mg/dL (03/14/16 2:11 PM) Phosphorus [2.5-4.5 mg/dL] 2.6 mg/dL *HI* (03/15/16 2:37 PM) 1.9 mg/dL (03/15/16 4:29 AM) 1.6 mg/dL *LOW* (03/14/16 6:50 PM) Magnesium Lvl [1.8-2.4 mg/dL] 11 unit/L (03/20/16 6:13 AM) 9 unit/L (03/18/16 5:28 AM) 8 unit/L (03/17/16 3:02 AM) ALT [0-65 unit/L] 12 unit/L (03/20/16 6:13 AM) 24 unit/L (03/18/16 5:28 AM) 15 unit/L (03/17/16 3:02 AM) AST [0-37 unit/L] 212 unit/L *HI* (03/20/16 6:13 AM) 206 unit/L *HI* (03/18/16 5:28 AM) 168 unit/L *HI* (03/17/16 3:02 AM) Alk Phos [39-136 unit/L] 0.1 mg/dL *LOW* (03/20/16 6:13 AM) 0.1 mg/dL *LOW* (03/18/16 5:28 AM) 0.2 mg/dL (03/17/16 3:02 AM) Bili Total [0.2-1.3 mg/dL] 0.37 mmol/L *HI* (03/15/16 4:29 AM) 0.07 mmol/L (03/14/16 6:50 PM) 0.62 mmol/L *HI* (03/14/16 2:11 PM) Ketone Quantitative [<=0.27 mmol/L] 1.3 mMol/L (03/14/16 10:05 PM) 1.9 mMol/L (03/14/16 1:22 PM) Lactic Acid Lvl [0.5-2.2 mMol/L] 1Result [...] be mul tiplied by the estimated BMI. PARATHYROID PROFILE 1 2 3 Most recent to oldest [Reference Range]: 0.99 mMol/L *LOW* (03/22/16 10:20 AM) Ca Ion WB [1.05-1.25 mMol/L] 0.97 mMol/L *LOW* (03/22/16 10:20 AM) Ca Norm WB [1.05-1.25 mMol/L] TOXICOLOGY 1 2 3 Most recent to oldest [Reference Range]: 0500 *NA* (03/18/16 5:28 AM) Vanco Tr TND 28.8 ug/ml *NA* (03/19/16 4:21 AM) 25.4 ug/ml *NA* (03/17/16 3:02 AM) 27.9 ug/ml *NA* (03/16/16 2:30 PM) Vanco Lvl 9.7 ug/ml *NA* (03/18/16 5:28 AM) Vanco Tr URINE AND STOOL 1 2 3 Most recent to oldest [Reference Range]: Clear (03/27/16 10:06 AM) Slight Cloudy (03/14/16 10:13 PM) UA Turbidity [Clear] Yellow *NA* (03/27/16 10:06 AM) Yellow *NA* (03/14/16 10:13 PM) UA Color [Yellow] 8.0 (03/27/16 10:06 AM) UA pH [5.0-8.0] 6.0 (03/14/16 10:13 PM) UA pH [5.0-8.0] 1.011 (03/27/16 10:06 AM) UA Spec Grav [<=1.030] 1.025 (03/14/16 10:13 PM) UA Spec Grav [<=1.030] 50 mg/dL *ABN* (03/27/16 10:06 AM) >=1000 mg/dL *ABN* (03/14/16 10:13 PM) UA Glucose [Negative mg/dL] Trace *ABN* (03/27/16 10:06 AM) Moderate *ABN* (03/14/16 10:13 PM) UA Blood [Negative] Negative mg/dL *NA* (03/27/16 10:06 AM) UA Ketones [Negative mg/dL] Negative *NA* (03/14/16 10:13 PM) UA Ketones [Negative] >=300 mg/dL *ABN* (03/27/16 10:06 AM) >=300 mg/dL *ABN* (03/14/16 10:13 PM) UA Protein [Negative mg/dL] <=1.0 mg/dL *NA* (03/27/16 10:06 AM) UA Urobilinogen [0.1-1.0 mg/dL] 0.2 EU/dL (03/14/16 10:13 PM) UA Urobilinogen [0.1-1.0 EU/dL] Negative *NA* (03/27/16 10:06 AM) Negative *NA* (03/14/16 10:13 PM) UA Bili [Negative] Negative (03/27/16 10:06 AM) Negative (03/14/16 10:13 PM) UA Leuk Est [Negative] Negative (03/27/16 10:06 AM) Negative (03/14/16 10:13 PM) UA Nitrite [Negative] 3 /HPF (03/27/16 10:06 AM) UA WBC [0-5 /HPF] 6-10 /HPF *ABN* (03/14/16 10:13 PM) UA WBC [None Seen /HPF] 4 /HPF *HI* (03/27/16 10:06 AM) 6-10 /HPF *ABN* (03/14/16 10:13 PM) UA RBC [0-2 /HPF] Many /HPF (03/14/16 10:13 PM) UA Bacteria [None Seen /HPF] Occasional /LPF *NA* (03/27/16 10:06 AM) Moderate /LPF *ABN* (03/14/16 10:13 PM) UA Sq Epi [Few /LPF] 0-2 (03/14/16 10:13 PM) UA Hyal Cast [0-2] None Seen (03/14/16 10:13 PM) UA Mucus [None Seen] Performed *NA* (03/27/16 10:06 AM) Performed (03/14/16 10:13 PM) Micro? IMMUNOLOGY 1 2 3 Most recent to oldest [Reference Range]: 314.0 mg/L *HI* (03/14/16 2:08 PM) CRP [<=2.9 mg/L] HEMATOLOGY 1 2 3 Most recent to oldest [Reference Range]: 7.3 K/CMM (04/01/16 4:53 AM) 7.5 K/CMM (03/31/16 3:31 AM) 7.0 K/CMM (03/30/16 9:45 AM) WBC [3.7-10.4 K/CMM] 2.98 M/CMM *LOW* (04/01/16 4:53 AM) 2.73 M/CMM *LOW* (03/31/16 3:31 AM) 2.80 M/CMM *LOW* (03/30/16 9:45 AM) RBC [4.20-5.40 M/CMM] 8.0 g/dL *LOW* (04/01/16 4:53 AM) 7.2 g/dL *LOW* (03/31/16 3:31 AM) 7.4 g/dL *LOW* (03/30/16 9:45 AM) Hgb [12.0-16.0 g/dL] 25.6 % *LOW* (04/01/16 4:53 AM) 23.1 % *LOW* (03/31/16 3:31 AM) 23.4 % *LOW* (03/30/16 9:45 AM) Hct [36.0-48.0 %] 86.1 fL (04/01/16 4:53 AM) 84.5 fL (03/31/16 3:31 AM) 83.7 fL (03/30/16 9:45 AM) MCV [80.0-98.0 fL] 26.8 pg *LOW* (04/01/16 4:53 AM) 26.3 pg *LOW* (03/31/16 3:31 AM) 26.4 pg *LOW* (03/30/16 9:45 AM) MCH [27.0-31.0 pg] 31.1 g/dL *LOW* (04/01/16 4:53 AM) 31.1 g/dL *LOW* (03/31/16 3:31 AM) 31.6 g/dL *LOW* (03/30/16 9:45 AM) MCHC [32.0-36.0 g/dL] 17.3 % *HI* (04/01/16 4:53 AM) 17.4 % *HI* (03/31/16 3:31 AM) 17.3 % *HI* (03/30/16 9:45 AM) RDW [11.5-14.5 %] 360 K/CMM (04/01/16 4:53 AM) 407 K/CMM (03/31/16 3:31 AM) 388 K/CMM (03/30/16 9:45 AM) Platelet [133-450 K/CMM] 9.2 fL (04/01/16 4:53 AM) 7.9 fL (03/31/16 3:31 AM) 8.1 fL (03/30/16 9:45 AM) MPV [7.4-10.4 fL] 46.9 % (04/01/16 4:53 AM) 48.7 % (03/31/16 3:31 AM) 52.3 % (03/30/16 9:45 AM) Segs [45.0-75.0 %] 42.0 % *HI* (04/01/16 4:53 AM) 38.9 % (03/31/16 3:31 AM) 35.3 % (03/30/16 9:45 AM) Lymphocytes [20.0-40.0 %] 9.2 % (04/01/16 4:53 AM) 9.6 % (03/31/16 3:31 AM) 9.7 % (03/30/16 9:45 AM) Monocytes [2.0-12.0 %] 1.4 % (04/01/16 4:53 AM) 1.7 % (03/31/16 3:31 AM) 1.6 % (03/30/16 9:45 AM) Eosinophils [0.0-4.0 %] 0.5 % (04/01/16 4:53 AM) 1.1 % *HI* (03/31/16 3:31 AM) 1.1 % *HI* (03/30/16 9:45 AM) Basophils [0.0-1.0 %] 3.4 K/CMM (04/01/16 4:53 AM) 3.6 K/CMM (03/31/16 3:31 AM) 3.7 K/CMM (03/30/16 9:45 AM) Segs-Bands # [1.5-8.1 K/CMM] 3.1 K/CMM (04/01/16 4:53 AM) 2.9 K/CMM (03/31/16 3:31 AM) 2.5 K/CMM (03/30/16 9:45 AM) Lymphocytes # [1.0-5.5 K/CMM] 0.7 K/CMM (04/01/16 4:53 AM) 0.7 K/CMM (03/31/16 3:31 AM) 0.7 K/CMM (03/30/16 9:45 AM) Monocytes # [0.0-0.8 K/CMM] 0.1 K/CMM (04/01/16 4:53 AM) 0.1 K/CMM (03/31/16 3:31 AM) 0.1 K/CMM (03/30/16 9:45 AM) Eosinophils # [0.0-0.5 K/CMM] 0.1 K/CMM (03/31/16 3:31 AM) 0.1 K/CMM (03/30/16 9:45 AM) 0.1 K/CMM (03/29/16 3:41 AM) Basophils # [0.0-0.2 K/CMM] Normal (03/26/16 4:10 AM) RBC Morph 1+ *ABN* (03/26/16 4:10 AM) Anisocyte [None Seen] Normal (03/26/16 4:10 AM) Plt Morph >100 mm/hr *ABN* (03/14/16 2:09 PM) Sed Rate [0-20 mm/hr] 14.2 seconds (03/22/16 10:20 AM) 14.5 seconds (03/21/16 3:39 AM) 17.7 seconds *HI* (03/15/16 4:29 AM) PT [12.0-14.7 seconds] 1.08 (03/22/16 10:20 AM) 1.11 (03/21/16 3:39 AM) 1.43 *HI* (03/15/16 4:29 AM) INR [0.85-1.17] 41.0 seconds *HI* (03/22/16 10:20 AM) 37.6 seconds *HI* (03/21/16 3:39 AM) 46.0 seconds *HI* (03/15/16 4:29 AM) PTT [22.9-35.8 seconds] MOLECULAR DIAGNOSTIC 1 2 3 Most recent to oldest [Reference Range]: Negative (03/27/16 11:24 AM) C difficile DNA [Negative] VIRAL - SEROLOGY 1 2 3 Most recent to oldest [Reference Range]: Negative (03/27/16 2:16 PM) Influ A [Negative] Negative (03/27/16 2:16 PM) Influ B [Negative] Immunizations Given and Recorded Vaccine Date [...] No Assessment and Plan Extracted from: Title: [facility] Author: Spenser Ag Date: 04/01/16 Carina COCHRAN [facility] Progress Note S: Afebrile, continues to be sleep throughout the day O: VitalsTmp(F)[id number] 04/01 08:[id number]--- 04/01 03:[id number]--- 03/31 23:[id number]--- 03/31 19:[id number]--- 03/31 16:[id number]--- 24 Hr Tmax: 98.8F (37.11c) at 03/31 16:3 0Vital Signs are the last 5 in [...] Ag M.D. (Brad) Orthopaedic Surgery PGY-2 Extracted from: Title: [facility] ID Consult Author: Aaliyah Prescott Date : 03/26/16 Gianna COCHRAN Extracted from: Title: Hospitalist History and Author: Yenny Reyes ate: 03/15/16 Physical Assessment/Plan 40 year old female 1.Severe Sepsis: [...] - compensated. - Hold Lasix secondary to ALDO on CKD - continue with coreg - Please be cautious of amount of IVF gi jaquan. 7. Hypomagnesemia - Replete Magnesium 8. HLD: - ASA, statin [facility] hospitalist is primary. Please call Dr. Marrero for additional questions [phone]. Orders: acetaminophen, 650 mg, 2 tab, Route: PO, Drug form: TAB, Q4H, Dosing Weight 115, kg, PRN Pain 1-3/Temp > 100.4 F, Start date: 03/15/16 1:37:00 RESEARCH EXECUTIVE, Duration: 30 day, Stop date: 04/14/16 1:36:00 RESEARCH EXECUTIVE Sterling 5/325 oral tablet, 2 tab, Route: PO, Drug Form: TAB, Dosing Weight 115, kg, Q6H, PRN Pain Score 1-3, Start date: 03/15/16 1:45:00 RESEARCH EXECUTIVE, Duration: 30 day, Stop date: 04/14/16 1:44:00 RESEARCH EXECUTIVE amLODIPine, 10 mg, 1 tab, Route: PO, Drug form: TAB, Daily, Dosing Weight 115, kg, Start date: 03/15/16 9:00:00 RESEARCH EXECUTIVE, Duration: 30 day, Stop date: 04/13/16 9:00:00 RESEARCH EXECUTIVE aspirin 81 mg tablet, enteric coated, 81 mg, 1 tab, Route: PO, Drug form: ECTAB, Daily, Dosing Weight 115, kg, Start date: 03/15/16 9:00:00 RESEARCH EXECUTIVE, Duration: 30 day, Stop date: 04/13/16 9:00:00 RESEARCH EXECUTIVE atorvastatin, 40 mg, 1 tab, Route: PO, Drug form: TAB, Bedtime, Dosing Weight 115, kg, Start date: 03/15/16 21:00:00 RESEARCH EXECUTIVE, Duration: 30 day, Stop date: 04/13/16 21:00:00 RESEARCH EXECUTIVE carvedilol, 25 mg, 1 tab, Route: PO, Drug form: TAB, BID, Dosing Weight 115, kg, Start date: 03/15/16 9:00:00 RESEARCH EXECUTIVE, Duration: 30 day, Stop date: 04/13/16 17:00:00 RESEARCH EXECUTIVE docusate, 100 mg, 1 cap, Route: PO, Drug form: CAP, BID, Dosing Weight 115, kg, PRN Constipation, Start date: 03/15/16 1:37:00 RESEARCH EXECUTIVE, Duration: 30 day, Stop date: 04/14/16 1:36:00 RESEARCH EXECUTIVE ferrous sulfate, 325 mg, 1 tab, Route: PO, Drug form: TAB, BID, Dosing Weight 115, kg, Start date: 03/15/16 9:00:00 RESEARCH EXECUTIVE, Duration: 30 day, Stop date: 04/13/16 17:00:00 RESEARCH EXECUTIVE gabapentin 300 mg oral capsule, 300 mg, 1 cap, Route: PO, Drug form: CAP, Q12H, Dosing Weight 115, kg, Start date: 03/15/16 9:00:00 RESEARCH EXECUTIVE, Duration: 30 day, Stop date: 04/13/16 21:00:00 RESEARCH EXECUTIVE heparin 5000 units/mL injectable solution, 5,000 unit, 1 mL, Route: SUB-Q, Drug form: INJ, Q8H, Dosing Weight 115, kg, Start date: 03/15/16 8:00:00 RESEARCH EXECUTIVE, Duration: 30 day, Stop date: 04/14/16 0:00:00 RESEARCH EXECUTIVE Levemir, 30 unit, Route: SUB-Q, Drug form: SOLN, Bedtime, Dosing Weight 115, kg, Start date: 03/15/16 21:00:00 RESEARCH EXECUTIVE, Duration: 30 day, Stop date: 04/13/16 21:00:00 RESEARCH EXECUTIVE melatonin, 3 mg, 1 tab, Route: PO, Drug form: TAB, Bedtime, Dosing Weight 115, kg, PRN Sleep, Start date: 03/15/16 1:46:00 RESEARCH EXECUTIVE, Duration: 30 day, Stop date: 04/14/16 1:45:00 RESEARCH EXECUTIVE ondansetron, 4 mg, 2 mL, Route: IVP, Drug form: INJ, Q6H, Dosing Weight 115, kg, PRN Nausea & Vomiting, Start date: 03/15/16 1:37:00 RESEARCH EXECUTIVE, Duration: 30 day, Stop date: 04/14/16 1:36:00 RESEARCH EXECUTIVE sertraline, 50 mg, 1 tab, Route: PO, Drug form: TAB, Daily, Dosing Weight 115, kg, Start date: 03/15/16 9:00:00 RESEARCH EXECUTIVE, Duration: 30 day, Stop date: 04/13/16 9:00:00 RESEARCH EXECUTIVE vancomycin, 1,725 mg, Route: IV, ONCE, Dosing Weight 115, kg, Start date: 03/15/16 1:44:00 RESEARCH EXECUTIVE, Stop date: 03/15/16 1:44:00 RESEARCH EXECUTIVE Ambulation Basic Metabolic Panel Bedrest Cardiac Monitoring [...]
--- OUTSIDE RECORDS SUMMARY | 2019-09-10 20:13 | XMS REPORT | Summary of Care ---
Author Author [facility] Organization [facility] Address Unknown Phone Unavailable Encounter PRIMITIVO Mariano(SANGITA) [id number] Date(s): 06/13/16 - 06/14/16 [facility] [address] [employer] provided by [facility] [employer] [facility] [place] [address]- Discharge Disposition: Home or Self Care Attending Physician: Sivakumar Rosales MD Admitting Physician: Sivakumar Rosales MD Vital Signs 1 2 3 Most recent to oldest [Reference Range]: 157.48 cm (06/13/16 6:08 PM) 170.18 cm (06/13/16 5:40 AM) Height 98.8 DegF (06/14/16 4:20 PM) 97.9 DegF (06/14/16 11:28 AM) 98.8 DegF (06/14/16 7:37 AM) Temperature Oral [96.4-99.1 DegF] 147/88 mmHg *HI* (06/14/16 4:20 PM) 137/89 mmHg (06/14/16 11:28 AM) 138/82 mmHg (06/14/16 7:37 AM) Blood Pressure [90-140/60-90 mmHg] 20 BRMIN (06/14/16 4:20 PM) 18 BRMIN (06/14/16 11:28 AM) 20 BRMIN (06/14/16 7:37 AM) Respiratory Rate [14-20 BRMIN] 96 bpm (06/14/16 4:20 PM) 100 bpm (06/14/16 11:28 AM) 99 bpm (06/14/16 7:37 AM) Peripheral Pulse Rate [60-100 bpm] 112.727 kg (06/13/16 6:08 PM) 112.727 kg (06/13/16 5:40 AM) Weight 45.45 m2 (06/13/16 6:08 PM) 38.92 m2 (06/13/16 5:40 AM) Body Mass Index Problem List Condition [...] form: TAB, Q8H, Dosing Weight 112.727, kg, Star t date: 06/13/16 16:00:00 [place], Duration: 30 day, Stop date: 07/13/16 8:00:00 CDT Notes: Max acetaminophen 4000 mg/day (4 gm/day). (Same as: Tylenol Extra Streng th) Start Date: 06/13/16 Stop Date: 06/14/16 Status: Discontinued albuterol 0.083% inhalation solution 19.92 mg, 24 mL, Route: NEB, Drug form: SOLN, ONCE, Dosing Weight 112.727, kg, P riority: STAT, Start date: 06/13/16 9:07:00 [place], Stop date: 06/13/16 9:07:00 [place] Notes: SEE RT DOCUMENTATION (Same as: Jony) Start Date: 06/13/16 Stop Date: 06/13/16 Status: Completed ALPRAZOLam 0.25 mg, 1 tab, Route: PO, Drug form: TAB, Q8H, Dosing Weight 112.727, kg, PRN A nxiety, Start date: 06/13/16 15:19:00 [place], Duration: 30 day, Stop date: 07/13/16 15:18:00 CDT Notes: With food or milk(Same as: Xanax) Start Date: 06/13/16 Stop Date: 06/14/16 Status: Discontinued ALPRAZOLam 0.25 mg oral tablet 0.25 mg = 1 tab, PO, Q8H, PRN Anxiety, # 20 tab, 0 Refill(s) Start Date: 06/14/16 Stop Date: 06/28/16 Status: Ordered amLODIPine 10 mg, 1 tab, Route: PO, Drug form: TAB, Daily, Dosing Weight 112.727, kg, Start date: 06/14/16 9:00:00 [place], Duration: 30 day, Stop date: 07/13/16 9:00:00 CDT Notes: (Same as: Norvasc) Start Date: 06/14/16 Stop Date: 06/14/16 Status: Discontinued amLODIPine 10 mg oral tablet 10 mg = 1 tab, PO, Daily, # 90 tab, 0 Refill(s), Pharmacy: [id number] Start Date: 06/14/16 Stop Date: 09/12/16 Status: Ordered aspirin 81 mg tablet, enteric coated 81 mg, 1 tab, Route: PO, Drug form: ECTAB, Daily, Dosing Weight 112.727, kg, Sta rt date: 06/14/16 9:00:00 [place], Duration: 30 day, Stop date: 07/13/16 9:00:00 CDT Notes: Do not crush or chew.(Same As: Ecotrin) Start Date: 06/14/16 Stop Date: 06/14/16 Status: Discontinued atorvastatin 40 mg, 1 tab, Route: PO, Drug form: TAB, Bedtime, Dosing Weight 112.727, kg, Sta rt date: 06/13/16 21:00:00 [place], Duration: 30 day, Stop date: 07/12/16 21:00:00 C DT Notes: (Same as: Lipitor) Start Date: 06/13/16 Stop Date: 06/14/16 Status: Discontinued atorvastatin 40 mg oral tablet 40 mg = 1 tab, PO, Bedtime, # 90 tab, 0 Refill(s), Pharm[id number] Start Date: 06/14/16 Stop Date: 09/12/16 Status: Ordered bisacodyl 10 mg, 1 supp, Route: [place], Drug form: SUPP, Daily, Dosing Weight 112.727, kg, PRN Constipation, Start date: 06/13/16 15:19:00 [place], Duration: 30 day, Stop date: 0 07/13/16 15:18:00 CDT Notes: (Same As: Dulcolax, Bisco-Lax) Start Date: 06/13/16 Stop Date: 06/14/16 Status: Discontinued bisacodyl 10 mg rectal suppository 10 mg = 1 supp, [place], Daily, PRN Constipation, 0 Refill(s) Start Date: 06/14/16 Status: Ordered carvedilol 25 mg, 1 tab, Route: PO, Drug form: TAB, Q12H, Dosing Weight 112.727, kg, Start date: 06/13/16 21:00:00 [place], Duration: 30 day, Stop date: 07/13/16 9:00:00 CDT Notes: Give with food. (Same As: Coreg) Start Date: 06/13/16 Stop Date: 06/14/16 Status: Discontinued carvedilol 25 mg oral tablet 25 mg = 1 tab, PO, Q12H, # 60 tab, 3 Refill(s), Pharmacy: [facility] Start Date: 06/14/16 Stop Date: 10/12/16 Status: Ordered cloNIDine 0.1 mg, 1 tab, Route: PO, Drug form: TAB, ONCE, Dosing Weight 112.727, kg, Prior ity: STAT, Start date: 06/13/16 10:55:00 [place], Stop date: 06/13/16 10:55:00 [place] Notes: (Same As: Catapres) Start Date: 06/13/16 Stop Date: 06/13/16 Status: Completed Coreg 25 mg, 1 tab, Route: PO, Drug form: TAB, ONCE, Dosing Weight 112.727, kg, Start date: 06/13/16 9:10:00 [place], Stop date: 06/13/16 9:10:00 [place] Notes: Give with food. (Same As: Coreg) Start Date: 06/13/16 Stop Date: 06/13/16 Status: Completed Dextrose 50% Syringe 25 gm, 50 mL, Route: IVP, Drug Form: INJ, Dosing Weight 112.727, kg, PRN, PRN Bl ood Glucose Results, Start date: 06/13/16 21:37:00 [place], Duration: 30 day, Stop d ate: 07/13/16 22:36:00 CDT Start Date: 06/13/16 Stop Date: 06/14/16 Status: Discontinued Dextrose 50% Syringe 12.5 gm, 25 mL, Route: IVP, Drug Form: INJ, Dosing Weight 112.727, kg, PRN, PRN Blood Glucose Results, Start date: 06/13/16 21:37:00 [place], Duration: 30 day, Stop date: 07/13/16 22:36:00 CDT Start Date: 06/13/16 Stop Date: 06/14/16 Status: Discontinued Dilaudid 1 mg, 0.5 mL, Route: IVP, Drug form: INJ, ONCE, Dosing Weight 112.727, kg, Prior ity: STAT, Start date: 06/13/16 7:25:00 [place], Stop date: 06/13/16 7:25:00 [place] Notes: Same as: Dilaudid Start Date: 06/13/16 Stop Date: 06/13/16 Status: Completed docusate 100 mg, 1 cap, Route: PO, Drug form: CAP, BID, Dosing Weight 112.727, kg, Start date: 06/13/16 17:00:00 [place], Duration: 30 day, Stop date: 07/13/16 9:00:00 CDT Notes: (Same as: Colace) (Do Not Crush) Start Date: 06/13/16 Stop Date: 06/14/16 Status: Discontinued docusate sodium 100 mg oral capsule 100 mg = 1 cap, PO, BID, 0 Refill(s) Start Date: 06/14/16 Status: Ordered gabapentin 300 mg, 1 cap, Route: PO, Drug form: CAP, Q8Hnow, Dosing Weight 112.727, kg, Sta rt date: 06/13/16 16:00:00 [place], Duration: 30 day, Stop date: 07/13/16 8:00:00 CD T Notes: (Same as: Neurontin) Start Date: 06/13/16 Stop Date: 06/14/16 Status: Discontinued gabapentin 300 mg oral capsule 300 mg = 1 cap, PO, Q12H, # 60 cap, 0 Refill(s), Pharmacy: [id number] Start Date: 06/14/16 Stop Date: 07/14/16 Status: Ordered glucagon 1 mg, Route: IM, Drug form: PDR/INJ, PRN, Dosing Weight 112.727, kg, PRN Blood G lucose Results, Start date: 06/13/16 21:37:00 [place], Duration: 30 day, Stop date: 07/13/16 22:36:00 CDT Start Date: 06/13/16 Stop Date: 06/14/16 Status: Discontinued heparin 5,000 unit, 1 mL, Route: SUB-Q, Drug form: INJ, Q8H, Dosing Weight 112.727, kg, Start date: 06/13/16 16:00:00 [place], Duration: 30 day, Stop date: 07/13/16 8:00:00 CDT Notes: porcine heparin Start Date: 06/13/16 Stop Date: 06/14/16 Status: Discontinued hydrALAZINE 10 mg, 0.5 mL, Route: IV, Drug form: INJ, Q3H, Dosing Weight 112.727, kg, PRN Hy pertension, Start date: 06/13/16 16:01:00 [place], Duration: 30 day, Stop date: 06/23 06/10 16:00:00 CDT, Hypertension SBP >180 or DBP >100 Notes: (Same as: Apresoline) Start Date: 06/13/16 Stop Date: 06/14/16 Status: Discontinued hydrALAZINE 10 mg, 0.5 mL, Route: IV, Drug form: INJ, ONCE, Dosing Weight 112.727, kg, Start date: 06/13/16 14:46:00 [place], Stop date: 06/13/16 14:46:00 [place] Notes: (Same as: Apresoline)Push over 5 minutes Start Date: 06/13/16 Stop Date: 06/13/16 Status: Completed hydrALAZINE 25 mg oral tablet 25 mg, 1 tab, Route: PO, Drug form: TAB, ONCE, Dosing Weight 112.727, kg, Start date: 06/13/16 12:13:00 [place], Stop date: 06/13/16 12:13:00 [place] Notes: (Same as: Apresoline) May interfere w/enteral feedings Take With Food. Start Date: 06/13/16 Stop Date: 06/13/16 Status: Completed hydrALAZINE 50 mg oral tablet 50 mg = 1 tab, PO, Q8H, # 90 tab, 0 Refill(s), Pharmacy: [id number] Start Date: 06/14/16 Stop Date: 07/14/16 Status: Ordered hydrALAZINE 50 mg oral tablet 50 mg, 1 tab, Route: PO, Drug form: TAB, Q8H, Dosing Weight 112.727, kg, Start d ate: 06/13/16 18:00:00 [place], Duration: 30 day, Stop date: 07/13/16 10:30:00 CDT Notes: (Same as: Apresoline) May interfere w/enteral feedings Take With Food Start Date: 06/13/16 Stop Date: 06/14/16 Status: Discontinued hydromorphone 0.5 mg, 0.25 mL, Route: IVP, Drug form: INJ, ONCE, Dosing Weight 112.727, kg, Pr iority: STAT, Start date: 06/13/16 15:16:00 [place], Stop date: 06/13/16 15:16:00 CS T Notes: Same as: Dilaudid Start Date: 06/13/16 Stop Date: 06/13/16 Status: Completed insulin aspart 15 unit, 0.15 mL, Route: SUB-Q, Drug form: SOLN, TID-Before Meals, Dosing Weight 112.727, kg, PRN Blood Glucose Results, Start date: 06/13/16 21:37:00 [place], Dura tion: 30 day, Stop date: 07/13/16 21:36:00 CDT Notes: Roll in palms of hands gently; Do not shake vigorously. (Same as: Jarrod Agnulo)"single patient use only"WASTE: F/P - Black; E - Municipal Trash Bin Stable f or 28 days at room temperature.Expires in days from Date Start Date: 06/13/16 Stop Date: 06/14/16 Status: Discontinued insulin aspart 2 unit, 0.02 mL, Route: SUB-Q, Drug form: SOLN, Bedtime, Dosing Weight 112.727, kg, PRN Blood Glucose Results, Start date: 06/13/16 21:37:00 [place], Duration: 30 d ay, Stop date: 07/13/16 21:36:00 CDT Notes: Roll in palms of hands gently; Do not shake vigorously. (Same as: Jarrod Angulo)"single patient use only"WASTE: F/P - Black; E - Municipal Trash Bin Stable f or 28 days at room temperature.Expires in days from Date Start Date: 06/13/16 Stop Date: 06/14/16 Status: Discontinued insulin aspart 3 unit, 0.03 mL, Route: SUB-Q, Drug form: SOLN, Bedtime, Dosing Weight 112.727, kg, PRN Blood Glucose Results, Start date: 06/13/16 21:37:00 [place], Duration: 30 d ay, Stop date: 07/13/16 21:36:00 CDT Notes: Roll in palms of hands gently; Do not shake vigorously. (Same as: Jarrod Angulo)"single patient use only"WASTE: F/P - Black; E - Municipal Trash Bin Stable f or 28 days at room temperature.Expires in days from Date Start Date: 06/13/16 Stop Date: 06/14/16 Status: Discontinued insulin aspart 1 unit, 0.01 mL, Route: SUB-Q, Drug form: SOLN, Bedtime, Dosing Weight 112.727, kg, PRN Blood Glucose Results, Start date: 06/13/16 21:37:00 [place], Duration: 30 d ay, Stop date: 07/13/16 21:36:00 CDT Notes: Roll in palms of hands gently; Do not shake vigorously. (Same as: Jarrod Angulo)"single patient use only"WASTE: F/P - Black; E - Municipal Trash Bin Stable f or 28 days at room temperature.Expires in days from Date Start Date: 06/13/16 Stop Date: 06/14/16 Status: Discontinued insulin aspart 9 unit, 0.09 mL, Route: SUB-Q, Drug form: SOLN, TID-Before Meals, Dosing Weight 112.727, kg, PRN Blood Glucose Results, Start date: 06/13/16 21:37:00 [place], Durat ion: 30 day, Stop date: 07/13/16 21:36:00 CDT Notes: Roll in palms of hands gently; Do not shake vigorously. (Same as: aJrrod Angulo)"single patient use only"WASTE: F/P - Black; E - Municipal Trash Bin Stable f or 28 days at room temperature.Expires in days from Date Start Date: 06/13/16 Stop Date: 06/14/16 Status: Discontinued insulin aspart 12 unit, 0.12 mL, Route: SUB-Q, Drug form: SOLN, TID-Before Meals, Dosing Weight 112.727, kg, PRN Blood Glucose Results, Start date: 06/13/16 21:37:00 [place], Dura tion: 30 day, Stop date: 07/13/16 21:36:00 CDT Notes: Roll in palms of hands gently; Do not shake vigorously. (Same as: Jarrod Angulo)"single patient use only"WASTE: F/P - Black; E - Municipal Trash Bin Stable f or 28 days at room temperature.Expires in days from Date Start Date: 06/13/16 Stop Date: 06/14/16 Status: Discontinued insulin aspart 3 unit, 0.03 mL, Route: SUB-Q, Drug form: SOLN, TID-Before Meals, Dosing Weight 112.727, kg, PRN Blood Glucose Results, Start date: 06/13/16 21:37:00 [place], Durat ion: 30 day, Stop date: 07/13/16 21:36:00 CDT Notes: Roll in palms of hands gently; Do not shake vigorously. (Same as: Jarrod Angulo)"single patient use only"WASTE: F/P - Black; E - Municipal Trash Bin Stable f or 28 days at room temperature.Expires in days from Date Start Date: 06/13/16 Stop Date: 06/14/16 Status: Discontinued insulin aspart 6 unit, 0.06 mL, Route: SUB-Q, Drug form: SOLN, TID-Before Meals, Dosing Weight 112.727, kg, PRN Blood Glucose Results, Start date: 06/13/16 21:37:00 [place], Durat ion: 30 day, Stop date: 07/13/16 21:36:00 CDT Notes: Roll in palms of hands gently; Do not shake vigorously. (Same as: Jarrod Angulo)"single patient use only"WASTE: F/P - Black; E - Municipal Trash Bin Stable f or 28 days at room temperature.Expires in days from Date Start Date: 06/13/16 Stop Date: 06/14/16 Status: Discontinued insulin aspart 4 unit, 0.04 mL, Route: SUB-Q, Drug form: SOLN, Bedtime, Dosing Weight 112.727, kg, PRN Blood Glucose Results, Start date: 06/13/16 21:37:00 [place], Duration: 30 d ay, Stop date: 07/13/16 21:36:00 CDT Notes: Roll in palms of hands gently; Do not shake vigorously. (Same as: Jarrod Angulo)"single patient use only"WASTE: F/P - Black; E - Municipal Trash Bin Stable f or 28 days at room temperature.Expires in days from Date Start Date: 06/13/16 Stop Date: 06/14/16 Status: Discontinued insulin aspart 5 unit, 0.05 mL, Route: SUB-Q, Drug form: SOLN, TID-Before Meals, Dosing Weight 112.727, kg, Start date: 06/14/16 7:30:00 [place], Duration: 30 day, Stop date: 06/23 06/10 16:30:00 CDT Notes: Roll in palms of hands gently; Do not shake vigorously. (Same as: Jarrod Angulo)"single patient use only"WASTE: F/P - Black; E - Municipal Trash Bin Stable f or 28 days at room temperature.Expires in days from Date Start Date: 06/14/16 Stop Date: 06/14/16 Status: Discontinued insulin glargine 30 unit, 0.3 mL, Route: SUB-Q, Drug form: INJ, Daily, Dosing Weight 112.727, kg, Start date: 06/14/16 9:00:00 [place], Duration: 30 day, Stop date: 07/13/16 9:00:00 CDT Notes: Same as Crow Marie not hold insulin without contacting prescri hal"single patient use only"WASTE: F/P - Black; E - Municipal Trash Bin Stable for 28 days at room temperature.Expires in days from Date Start Date: 06/14/16 Stop Date: 06/13/16 Status: Discontinued Kayexalate 30 gm, 120 mL, Route: PO, Drug form: SUSP, ONCE, Dosing Weight 112.727, kg, Star t date: 06/14/16 15:59:00 [place], Stop date: 06/14/16 15:59:00 [place] Notes: (sodium polystyrene sulfonate 15 gm/60 ml LUCÍA) Shake well before use. (Same as: Kayexalate, SPS) Start Date: 06/14/16 Stop Date: 06/14/16 Status: Completed Kayexalate 30 gm, 120 mL, Route: PO, Drug form: SUSP, ONCE, Dosing Weight 112.727, kg, Prio rity: STAT, Start date: 06/13/16 9:07:00 [place], Stop date: 06/13/16 9:07:00 [place] Notes: (sodium polystyrene sulfonate 15 gm/60 ml LUCÍA) Shake well before use. (Same as: Kayexalate, SPS) Start Date: 06/13/16 Stop Date: 06/13/16 Status: Completed labetalol 20 mg, 4 mL, Route: IVP, Drug form: INJ, ONCE, Dosing Weight 112.727, kg, Start date: 06/13/16 14:46:00 [place], Stop date: 06/13/16 14:46:00 [place] Start Date: 06/13/16 Stop Date: 06/13/16 Status: Completed labetalol 10 mg, 2 mL, Route: IV, Drug form: INJ, Q3H, Dosing Weight 112.727, kg, PRN Hype rtension, Start date: 06/13/16 16:00:00 [place], Duration: 30 day, Stop date: 15:59:00 CDT, Hypertension SBP >180 or DBP >100 Start Date: 06/13/16 Stop Date: 06/14/16 Status: Discontinued Lantus 100 units/mL 20 unit, 0.2 mL, Route: SUB-Q, Drug form: SOLN, ONCE, Dosing Weight 112.727, kg, Start date: 06/13/16 21:38:00 [place], Stop date: 06/13/16 21:38:00 [place] Notes: Same as: Lantus)Do not hold insulin without contacting prescriberWASTE: F /P - Black; E - [employer] Trash Bin Start Date: 06/13/16 Stop Date: 06/13/16 Status: Deleted Lasix 20 mg, 2 mL, Route: IVP, Drug form: INJ, ONCE, Dosing Weight 112.727, kg, Start date: 06/14/16 16:00:00 [place], Stop date: 06/14/16 16:00:00 [place] Notes: (Same as: Lasix) Start Date: 06/14/16 Stop Date: 06/14/16 Status: Completed Lasix 20 mg, 2 mL, Route: IVP, Drug form: INJ, ONCE, Dosing Weight 112.727, kg, Start date: 06/14/16 7:49:00 [place], Stop date: 06/14/16 7:49:00 [place] Notes: (Same as: Lasix) Start Date: 06/14/16 Stop Date: 06/14/16 Status: Completed Lasix 20 mg oral tablet 20 mg, 1 tab, Route: PO, Drug form: TAB, BID, Dosing Weight 112.727, kg, Start d ate: 06/13/16 17:00:00 [place], Duration: 30 day, Stop date: 07/13/16 9:00:00 CDT Notes: (Same as: Lasix) May cause GI upset. Give with food or milk. Start Date: 06/13/16 Stop Date: 06/14/16 Status: Discontinued Lasix 20 mg oral tablet 20 mg = 1 tab, PO, BID, # 30 tab, 1 Refill(s), Pharmacy: [id number] Start Date: 06/14/16 Status: Ordered Levemir 30 unit, 0.3 mL, Route: SUB-Q, Drug form: SOLN, Daily, Dosing Weight 112.727, kg , Start date: 06/14/16 9:00:00 [place], Duration: 30 day, Stop date: 07/13/16 9:00:0 0 CDT Notes: Same as LevemirDo not hold insulin without contacting prescriberWASTE: F/ P - Black; E - Municipal Trash Bin "single patient use only" Start Date: 06/14/16 Stop Date: 06/14/16 Status: Discontinued Levemir 100 units/mL 30 unit, SUB-Q, Daily, 0 Refill(s) Start Date: 06/13/16 Status: Ordered lisinopril 20 mg, 1 tab, Route: PO, Drug form: TAB, ONCE, Dosing Weight 112.727, kg, Priori ty: STAT, Start date: 06/13/16 12:45:00 [place], Stop date: 06/13/16 12:45:00 [place] Notes: (Same as: Prinivil, Zestril) Start Date: 06/13/16 Stop Date: 06/13/16 Status: Completed methocarbamol 1,000 mg, 2 tab, Route: PO, Drug form: TAB, Q8H, Dosing Weight 112.727, kg, Prio rity: NOW, Start date: 06/14/16 13:09:00 [place], Duration: 30 day, Stop date: 07/14 10:00:00 CDT Notes: (Same as:Robaxin) Start Date: 06/14/16 Stop Date: 06/14/16 Status: Discontinued methocarbamol 1,000 mg, 2 tab, Route: PO, Drug form: TAB, Q8H, Dosing Weight 112.727, kg, PRN Muscle Spasms, Start date: 06/13/16 15:19:00 [place], Duration: 30 day, Stop date: 0 07/13/16 15:18:00 CDT Notes: (Same as:Robaxin) Start Date: 06/13/16 Stop Date: 06/14/16 Status: Discontinued methocarbamol 750 mg oral tablet 750 mg = 1 tab, PO, TID, X 14 day, # 42 tab, 0 Refill(s), [id number] Start Date: 06/14/16 Stop Date: 06/28/16 Status: Ordered minocycline 100 mg, 1 cap, Route: PO, Drug form: CAP, [id number], Dosing Weight 112.727, kg, St art date: 06/14/16 9:00:00 [place], Duration: 30 day, Stop date: 07/13/16 9:00:00 CD T Notes: (Same as:Minocin) No milk/antacids/iron. Start Date: 06/14/16 Stop Date: 06/14/16 Status: Discontinued minocycline 100 mg oral capsule 100 mg = 1 cap, PO, [id number], X 30 day, # 60 cap, 0 Refill(s), Pharmacy: [facility] [id number] Start Date: 06/14/16 Stop Date: 07/14/16 Status: Ordered [place] 5/325 oral tablet 1 tab, Route: PO, Drug Form: TAB, Dosing Weight 112.727, kg, ONCE, STAT, Start d ate: 06/13/16 6:43:00 [place], Stop date: 06/13/16 6:43:00 [place] Notes: (Same as: Lansing 325/5) Do not exceed 4gm/day of acetaminophen. Start Date: 06/13/16 Stop Date: 06/13/16 Status: Completed Norvasc 10 mg, 1 tab, Route: PO, Drug form: TAB, ONCE, Dosing Weight 112.727, kg, Start date: 06/13/16 7:25:00 [place], Stop date: 06/13/16 7:25:00 [place] Notes: (Same as: Norvasc) Start Date: 06/13/16 Stop Date: 06/13/16 Status: Completed ondansetron 4 mg, 2 mL, Route: IVP, Drug form: INJ, Q6H, Dosing Weight 112.727, kg, PRN Naus ea & Vomiting, Start date: 06/13/16 15:19:00 [place], Duration: 30 day, Stop date: 07/13/16 15:18:00 CDT Notes: (Same as: Luis) MEDICATION WASTE Product Size: 4 mgProduct Was sergio: ___ mg Start Date: 06/13/16 Stop Date: 06/14/16 Status: Discontinued oxyCODONE 5 mg immediate release 5 mg, 1 tab, Route: PO, Drug form: TAB, Q4H, Dosing Weight 112.727, kg, PRN Pain Score 4-6, Start date: 06/13/16 15:19:00 [place], Duration: 30 day, Stop date: 06/23 06/10 15:18:00 CDT Notes: (Same as: Roxicodone) Start Date: 06/13/16 Stop Date: 06/14/16 Status: Discontinued oxyCODONE 5 mg immediate release 10 mg, 2 tab, Route: PO, Drug form: TAB, Q4H, Dosing Weight 112.727, kg, PRN Katherine n Score 7-10, Start date: 06/13/16 15:19:00 [place], Duration: 30 day, Stop date: 15:18:00 CDT Notes: (Same as: Roxicodone) Start Date: 06/13/16 Stop Date: 06/14/16 Status: Discontinued oxyCODONE 5 mg oral tablet 5 mg = 1 tab, PO, Q6H, PRN Pain Score 4-6, # 30 tab, 0 Refill(s) Start Date: 06/14/16 Stop Date: 06/28/16 Status: Ordered polyethylene glycol 3350 17 gm = 1 pkt, PO, Daily, 0 Refill(s) Start Date: 06/14/16 Status: Ordered polyethylene glycol 3350 17 gm, 1 pkt, Route: PO, Drug form: PWDR, Daily, Dosing Weight 112.727, kg, Star t date: 06/14/16 9:00:00 [place], Duration: 30 day, Stop date: 07/13/16 9:00:00 CDT Notes: Dissolve in 8 oz of water or juice.(Same as: Miralax) Start Date: 06/14/16 Stop Date: 06/14/16 Status: Discontinued senna 17.2 mg, 2 tab, Route: PO, Drug Form: TAB, Dosing Weight 112.727, kg, Bedtime, S tart date: 06/13/16 21:00:00 [place], Duration: 30 day, Stop date: 07/12/16 21:00:00 CDT Notes: (Same as: Senokot) Start Date: 06/13/16 Stop Date: 06/14/16 Status: Discontinued senna 8.6 mg oral tablet 17.2 mg = 2 tab, PO, Bedtime, 0 Refill(s) Start Date: 06/14/16 Status: Ordered tramadol 100 mg, 2 tab, Route: PO, Drug form: TAB, Q6Hnow, Dosing Weight 112.727, kg, Sta rt date: 06/13/16 16:00:00 [place], Duration: 30 day, Stop date: 07/13/16 10:00:00 C DT Notes: Not to exceed 400mg/day. (Same As: Ultram) Start Date: 06/13/16 Stop Date: 06/14/16 Status: Discontinued Zofran 4 mg, Route: IVP, Drug form: INJ, ONCE, Dosing Weight 112.727, kg, Priority: STA T, Start date: 06/13/16 10:55:00 [place], Stop date: 06/13/16 10:55:00 [place] Start Date: 06/13/16 Stop Date: 06/13/16 Status: Completed Results ELECTROLYTES 1 2 3 Most recent to oldest [Reference Range]: 139 mEq/L (06/14/16 2:10 PM) 140 mEq/L (06/14/16 4:01 AM) 142 mEq/L (06/13/16 11:16 AM) Sodium Lvl [135-145 mEq/L] 5.8 mEq/L *HI* (06/14/16 2:10 PM) 5.7 mEq/L *HI* (06/14/16 4:01 AM) 5.1 mEq/L (06/13/16 11:16 AM) Potassium Lvl [3.5-5.1 mEq/L] 111 mEq/L *HI* (06/14/16 2:10 PM) 113 mEq/L *HI* (06/14/16 4:01 AM) 112 mEq/L *HI* (06/13/16 11:16 AM) Chloride Lvl [95-109 mEq/L] 20 mEq/L *LOW* (06/14/16 2:10 PM) 21 mEq/L *LOW* (06/14/16 4:01 AM) 24 mEq/L (06/13/16 11:16 AM) CO2 [24-32 mEq/L] 13.8 mEq/L (06/14/16 2:10 PM) 11.7 mEq/L (06/14/16 4:01 AM) 11.1 mEq/L (06/13/16 11:16 AM) AGAP [10.0-20.0 mEq/L] CHEM PANEL 1 2 3 Most recent to oldest [Reference Range]: 2.26 mg/dL *HI* (06/14/16 2:10 PM) 2.15 mg/dL *HI* (06/14/16 4:01 AM) 2.00 mg/dL *HI* (06/13/16 11:16 AM) Creatinine Lvl [0.50-1.40 mg/dL] 30 mL/min/1.73m2 1 *NA* (06/14/16 2:10 PM) 32 mL/min/1.73m2 2 *NA* (06/14/16 4:01 AM) 35 mL/min/1.73m2 3 *NA* (06/13/16 11:16 AM) eGFR 26 mg/dL *HI* (06/14/16 2:10 PM) 25 mg/dL *HI* (06/14/16 4:01 AM) 23 mg/dL *HI* (06/13/16 11:16 AM) BUN [7-22 mg/dL] 12 (06/14/16 4:01 AM) 12 (06/13/16 6:50 AM) B/C Ratio [6-25] 88 mg/dL (06/14/16 2:10 PM) 122 mg/dL *HI* (06/14/16 4:01 AM) 174 mg/dL *HI* (06/13/16 11:16 AM) Glucose Lvl [70-99 mg/dL] 5.9 g/dL *LOW* (06/14/16 4:01 AM) 6.4 g/dL (06/13/16 10:30 AM) 6.3 g/dL *LOW* (06/13/16 6:50 AM) Total Protein [6.4-8.4 g/dL] 1.4 g/dL *LOW* (06/14/16 4:01 AM) 1.5 g/dL *LOW* (06/13/16 10:30 AM) 1.5 g/dL *LOW* (06/13/16 6:50 AM) Albumin Lvl [3.5-5.0 g/dL] 4.5 g/dL *HI* (06/14/16 4:01 AM) 4.9 g/dL *HI* (06/13/16 10:30 AM) 4.8 g/dL *HI* (06/13/16 6:50 AM) Globulin [2.7-4.2 g/dL] 0.3 *LOW* (06/14/16 4:01 AM) 0.3 *LOW* (06/13/16 10:30 AM) 0.3 *LOW* (06/13/16 6:50 AM) A/G Ratio [0.7-1.6] 8.0 mg/dL *LOW* (06/14/16 2:10 PM) 8.1 mg/dL *LOW* (06/14/16 4:01 AM) 8.3 mg/dL *LOW* (06/13/16 11:16 AM) Calcium Lvl [8.5-10.5 mg/dL] 4.7 mg/dL *HI* (06/14/16 4:01 AM) Phosphorus [2.5-4.5 mg/dL] 1.8 mg/dL (06/14/16 4:01 AM) Magnesium Lvl [1.8-2.4 mg/dL] 13 unit/L (06/14/16 4:01 AM) 11 unit/L (06/13/16 10:30 AM) 12 unit/L (06/13/16 6:50 AM) ALT [0-65 unit/L] 16 unit/L (06/14/16 4:01 AM) 20 unit/L (06/13/16 10:30 AM) 15 unit/L (06/13/16 6:50 AM) AST [0-37 unit/L] 115 unit/L (06/14/16 4:01 AM) 133 unit/L (06/13/16 10:30 AM) 133 unit/L (06/13/16 6:50 AM) Alk Phos [39-136 unit/L] 0.1 mg/dL *LOW* (06/14/16 4:01 AM) 0.1 mg/dL *LOW* (06/13/16 10:30 AM) 0.1 mg/dL *LOW* (06/13/16 6:50 AM) Bili Total [0.2-1.3 mg/dL] 0.0 mg/dL (06/13/16 10:30 AM) Bili Direct [0.0-0.3 mg/dL] 0.1 mg/dL (06/13/16 10:30 AM) Bili Indirect [0.0-1.0 mg/dL] 141 unit/L (06/13/16 10:30 AM) Lipase Lvl [73-393 unit/L] 0.8 mMol/L (06/13/16 9:44 PM) Lactic Acid Lvl [0.5-2.2 mMol/L] 1Result [...] 3 Most recent to oldest [Reference Range]: 0.02 ng/mL (06/13/16 11:16 AM) Troponin-I [0.00-0.40 ng/mL] SPECIAL CHEMISTRY 1 2 3 Most recent to oldest [Reference Range]: 6.4 % *HI* (06/13/16 9:17 PM) Hgb A1C [<=5.6 %] URINE AND STOOL 1 2 3 Most recent to oldest [Reference Range]: Clear (06/13/16 8:56 AM) UA Turbidity [Clear] Yellow *NA* (06/13/16 8:56 AM) UA Color [Yellow] 7.0 (06/13/16 8:56 AM) UA pH [5.0-8.0] 1.020 (06/13/16 8:56 AM) UA Spec Grav [<=1.030] 250 mg/dL *ABN* (06/13/16 8:56 AM) UA Glucose [Negative mg/dL] Moderate *ABN* (06/13/16 8:56 AM) UA Blood [Negative] Negative *NA* (06/13/16 8:56 AM) UA Ketones [Negative] >=300 mg/dL *ABN* (06/13/16 8:56 AM) UA Protein [Negative mg/dL] 0.2 EU/dL (06/13/16 8:56 AM) UA Urobilinogen [0.1-1.0 EU/dL] Negative *NA* (06/13/16 8:56 AM) UA Bili [Negative] Negative (06/13/16 8:56 AM) UA Leuk Est [Negative] Negative (06/13/16 8:56 AM) UA Nitrite [Negative] 0-2 /HPF (06/13/16 8:56 AM) UA WBC [None Seen /HPF] 3-5 /HPF *ABN* (06/13/16 8:56 AM) UA RBC [0-2 /HPF] Occasional /HPF (06/13/16 8:56 AM) UA Bacteria [None Seen /HPF] Few /LPF (06/13/16 8:56 AM) UA Sq Epi [Few /LPF] Occasional /HPF *ABN* (06/13/16 8:56 AM) UA [place] Yeast [None Seen /HPF] IMMUNOLOGY 1 2 3 Most recent to oldest [Reference Range]: 7.6 mg/L 1 *HI* (06/13/16 9:17 PM) CRP [<=2.9 mg/L] 1Result Comment: Specimen Moderately Hemolyzed. HEMATOLOGY 1 2 3 Most recent to oldest [Reference Range]: 6.4 K/CMM (06/14/16 4:01 AM) 8.4 K/CMM (06/13/16 6:50 AM) WBC [3.7-10.4 K/CMM] 3.34 M/CMM *LOW* (06/14/16 4:01 AM) 3.45 M/CMM *LOW* (06/13/16 6:50 AM) RBC [4.20-5.40 M/CMM] 9.3 g/dL *LOW* (06/14/16 4:01 AM) 9.6 g/dL *LOW* (06/13/16 6:50 AM) Hgb [12.0-16.0 g/dL] 29.7 % *LOW* (06/14/16 4:01 AM) 30.9 % *LOW* (06/13/16 6:50 AM) Hct [36.0-48.0 %] 88.9 fL (06/14/16 4:01 AM) 89.6 fL (06/13/16 6:50 AM) MCV [80.0-98.0 fL] 27.7 pg (06/14/16 4:01 AM) 27.8 pg (06/13/16 6:50 AM) MCH [27.0-31.0 pg] 31.1 g/dL *LOW* (06/14/16 4:01 AM) 31.0 g/dL *LOW* (06/13/16 6:50 AM) MCHC [32.0-36.0 g/dL] 15.8 % *HI* (06/14/16 4:01 AM) 15.6 % *HI* (06/13/16 6:50 AM) RDW [11.5-14.5 %] 281 K/CMM (06/14/16 4:01 AM) 302 K/CMM (06/13/16 6:50 AM) Platelet [133-450 K/CMM] 9.2 fL (06/14/16 4:01 AM) 8.9 fL (06/13/16 6:50 AM) MPV [7.4-10.4 fL] 44.8 % *LOW* (06/14/16 4:01 AM) 55.2 % (06/13/16 6:50 AM) Segs [45.0-75.0 %] 44.1 % *HI* (06/14/16 4:01 AM) 33.5 % (06/13/16 6:50 AM) Lymphocytes [20.0-40.0 %] 6.4 % (06/14/16 4:01 AM) 7.0 % (06/13/16 6:50 AM) Monocytes [2.0-12.0 %] 3.6 % (06/14/16 4:01 AM) 3.0 % (06/13/16 6:50 AM) Eosinophils [0.0-4.0 %] 1.1 % *HI* (06/14/16 4:01 AM) 1.3 % *HI* (06/13/16 6:50 AM) Basophils [0.0-1.0 %] 2.9 K/CMM (06/14/16 4:01 AM) 4.7 K/CMM (06/13/16 6:50 AM) Segs-Bands # [1.5-8.1 K/CMM] 2.8 K/CMM (06/14/16 4:01 AM) 2.8 K/CMM (06/13/16 6:50 AM) Lymphocytes # [1.0-5.5 K/CMM] 0.4 K/CMM (06/14/16 4:01 AM) 0.6 K/CMM (06/13/16 6:50 AM) Monocytes # [0.0-0.8 K/CMM] 0.2 K/CMM (06/14/16 4:01 AM) 0.3 K/CMM (06/13/16 6:50 AM) Eosinophils # [0.0-0.5 K/CMM] 0.1 K/CMM (06/14/16 4:01 AM) 0.1 K/CMM (06/13/16 6:50 AM) Basophils # [0.0-0.2 K/CMM] >100 mm/hr *HI* (06/14/16 4:01 AM) Sed Rate [0-20 mm/hr] 13.7 seconds (06/14/16 4:01 AM) PT [12.0-14.7 seconds] 1.03 (06/14/16 4:01 AM) INR [0.85-1.17] 24.6 seconds (06/14/16 4:01 AM) PTT [22.9-35.8 seconds] Immunizations Given and [...] No Assessment and Plan Extracted from: Title: Infection Control Isolation Author: Zainab Restrepo Date: 06/14/16 Alert ISOLATION ALERT This patient has a history of infection/colonization with a multi-drug resistant organism. Organism Site Date MRSARt Foot Wpesctto11/01/2016 MDR Klebsiella - WJRIDjdgn36/03/2016 Isolation Required: CONTACT Before isolation precautions may [...] and at least one should be an early head start director specimen Sputum Varicella Maintain precautions until all [...] any questions. We can be reached at [phone]. Extracted from: Title: ORS Foot and Ankle Daily Author: Louis Sales MD Date: 06/13/16 Progress Note ORS Foot and Ankle Daily Progress Note SUBJECTIVE Patient sitting on the side of the bed, currently endorses that she does not wish to undergo operative intervention at this time, pain to right foot, leg, back OBJECTIVE VitalsTmp(F)[id number] 06/13 18:[id number]--- 06/13 16:57----[id number]--- 06/13 16:00----[id number]--- 06/13 15:51----[id number]--- 06/13 15:42----[id number]--- 24 Hr Tmax: 98.8F (37.11c) at 06/13 18:3 0Vital Signs are the last 5 in [...] refill delayed > 2 secs throughout ASSESSMENT & PLAN 40F with chronic Charcot/osteo R foot/an kle admitted with increased pain - Patient originally endorsed that she w ished to undergo an amputation however wishes to pursue non-operative management at this time. - WBS: WBAT RLE - DVT PPx: SERGIO/SCD per primary - Pain Control: MMP control - Abx: per primary - PT/OT: consult - Dispo: Pending staff discussion, patient does not wish to undergo operative intervention at this time. Hx of poor compliance/follow up with previous interventions. Louis May III, MD PGY-2 Orthopaedic Surgery Pager#: [phone] MSO#: [id number] Extracted from: Title: History and Physical Author: Sivakumar Rosales MD [...] Weight 112.727, kg, Start date: 06/13/16 16:00:00 [place] [employer], Duration: 30 day, Stop date: 07/13/16 8:00:00 CDT ALPRAZOLam, 0.25 mg, 1 tab, Route: PO, Drug form: TAB, Q8H, Dosing Weight 112.727, kg, PRN Anxiety, Start date: 06/13/16 15:19:00 [place] [employer], Duration: 30 day, Stop date: 07/13/16 15:18:00 CDT amLODIPine, 10 mg, 1 tab, Route: PO, Drug form: TAB, Daily, Dosing Weight 112.727, kg, Start date: 06/14/16 9:00:00 [place] [employer], Duration: 30 day, Stop date: 07/13/16 9:00:00 CDT aspirin 81 mg tablet, enteric coated, 81 mg, 1 tab, Route: PO, Drug form: ECTAB, Daily, Dosing Weight 112.727, kg, Start date: 06/14/16 9:00:00 [place] [employer], Duration: 30 day, Stop date: 07/13/16 9:00:00 CDT atorvastatin, 40 mg, 1 tab, Route: PO, Drug form: TAB, Bedtime, Dosing Weight 112.727, kg, Start date: 06/13/16 21:00:00 [place] [employer], Duration: 30 day, Stop date: 07/12/16 21:00:00 CDT bisacodyl, 10 mg, 1 supp, Route: [place], Drug form: SUPP, Daily, Dosing Weight 112.727, kg, PRN Constipation, Start date: 06/13/16 15:19:00 [place] [employer], Duration: 30 day, Stop date: 07/13/16 15:18:00 CDT carvedilol, 25 mg, 1 tab, Route: PO, Drug form: TAB, Q12H, Dosing Weight 112.727, kg, Start date: 06/13/16 21:00:00 [place] [employer], Duration: 30 day, Stop date: 07/13/16 9:00:00 CDT docusate, 100 mg, 1 cap, Route: PO, Drug form: CAP, BID, Dosing Weight 112.727, kg, Start date: 06/13/16 17:00:00 [place] [employer], Duration: 30 day, Stop date: 07/13/16 9:00:00 CDT Lasix 20 mg oral tablet, 20 mg, 1 tab, Route: PO, Drug form: TAB, BID, Dosing Weight 112.727, kg, Start date: 06/13/16 17:00:00 [place] [employer], Duration: 30 day, Stop date: 07/13/16 9:00:00 CDT gabapentin, 300 mg, 1 cap, Route: PO, Drug form: CAP, Q8Hnow, Dosing Weight 112.727, kg, Start date: 06/13/16 16:00:00 [place] [employer], Duration: 30 day, Stop date: 07/13/16 8:00:00 CDT heparin, 5,000 unit, 1 mL, Route: SUB-Q, Drug form: INJ, Q8H, Dosing Weight 112.727, kg, Start date: 06/13/16 16:00:00 [place] [employer], Duration: 30 day, Stop date: 07/13/16 8:00:00 CDT hydrALAZINE, 10 mg, 0.5 mL, Route: IV, Drug form: INJ, Q3H, Dosing Weight 112.727, kg, PRN Hypertension, Start date: 06/13/16 16:01:00 [place] [employer], Duration: 30 day, Stop date: 07/13/16 16:00:00 CDT, Hypertension SBP >180 or DBP >100 hydrALAZINE 50 mg oral tablet, 50 mg, 1 tab, Route: PO, Drug form: TAB, Q8H, Dosing Weight 112.727, kg, Start date: 06/13/16 18:00:00 [place] [employer], Duration: 30 day, Stop date: 07/13/16 10:30:00 CDT Levemir, 30 unit, 0.3 mL, Route: SUB-Q, Drug form: SOLN, Daily, Dosing Weight 112.727, kg, Start date: 06/14/16 9:00:00 [place] [employer], Duration: 30 day, Stop date: 07/13/16 9:00:00 CDT labetalol, 10 mg, 2 mL, Route: IV, Drug form: INJ, Q3H, Dosing Weight 112.727, kg, PRN Hypertension, Start date: 06/13/16 16:00:00 [place] [employer], Duration: 30 day, Stop date: 07/13/16 15:59:00 CDT, Hypertension SBP >180 or DBP >100 methocarbamol, 1,000 mg, 2 tab, Route: PO, Drug form: TAB, Q8H, Dosing Weight 112.727, kg, PRN Muscle Spasms, Start date: 06/13/16 15:19:00 [place] [employer], Duration: 30 day, Stop date: 07/13/16 15:18:00 CDT ondansetron, 4 mg, 2 mL, Route: IVP, Drug form: INJ, Q6H, Dosing Weight 112.727, kg, PRN Nausea & Vomiting, Start date: 06/13/16 15:19:00 [place] [employer], Duration: 30 day, Stop date: 07/13/16 15:18:00 CDT oxyCODONE 5 mg immediate release, 5 mg, 1 tab, Route: PO, Drug form: TAB, Q4H, Dosing Weight 112.727, kg, PRN Pain Score 4-6, Start date: 06/13/16 15:19:00 [place] [employer], Duration: 30 day, Stop date: 07/13/16 15:18:00 CDT oxyCODONE 5 mg immediate release, 10 mg, 2 tab, Route: PO, Drug form: TAB, Q4H, Dosing Weight 112.727, kg, PRN Pain Score 7-10, Start date: 06/13/16 15:19:00 [place] [employer], Duration: 30 day, Stop date: 07/13/16 15:18:00 CDT polyethylene glycol 3350, 17 gm, 1 pkt, Route: PO, Drug form: PWDR, Daily, Dosing Weight 112.727, kg, Start date: 06/14/16 9:00:00 [place] [employer], Duration: 30 day, Stop date: 07/13/16 9:00:00 CDT senna, 17.2 mg, 2 tab, Route: PO, Drug Form: TAB, Dosing Weight 112.727, kg, Bedtime, Start date: 06/13/16 21:00:00 [place] [employer], Duration: 30 day, Stop date: 07/12/16 21:00:00 CDT tramadol, 100 mg, 2 tab, Route: PO, Drug form: TAB, Q6Hnow, Dosing Weight 112.727, kg, Start date: 06/13/16 16:00:00 [place] [employer], Duration: 30 day, Stop date: 07/13/16 10:00:00 CDT Up with Assistance Ambulation CDM Acute Pain/Anxiolytic Orders CDM Admission Acute Care Post ED CDM Blood Culture and Lactate Panel Complete Blood Count w/ Diff and Platelet Comprehensive Metabolic Panel Blood Culture Diet Carbohydrate Controlled Isolation Order Intake and Output Lactic Acid Level Magnesium Level Notify Notify Notify Nutrition Consult/Dietitian Consult Phosphorus Level Prothrombin Time and Partial Thromboplastin Time Falls Protocol Resuscitation (Code) Status Vital Signs Prophylaxis DVT PPX: Heparin Disposition Home with home health vs SNF pending medical, surgical and PT/OT clearance.
[2019-09-10] MEDS ORDERED: SODIUM CHLORIDE 0.9% 50ML 50 ML ONE (20:14)
--- OUTSIDE RECORDS SUMMARY | 2019-09-10 20:14 | XMS REPORT | Summary of Care ---
Author Author [facility] Organization [facility] Address Unknown Phone Unavailable Encounter PRIMITIVO Mariano(SANGITA) [id number] Date(s): 06/21/16 - 06/24/16 [facility] [address] [employer] provided by [facility] [employer] [facility] [employer] [place] [address]- Discharge Disposition: Home or Self Care Attending Physician: Sivakumar Rosales MD Admitting Physician: Sivakumar Rosales MD Vital Signs 1 2 3 Most recent to oldest [Reference Range]: 170.18 cm (06/24/16 2:55 PM) 170.18 cm (06/21/16 11:56 PM) Height 98.7 DegF (06/24/16 12:57 PM) 98.8 DegF (06/24/16 8:31 AM) 98.3 DegF (06/24/16 4:39 AM) Temperature Oral [96.4-99.1 DegF] 158/95 mmHg *HI* (06/24/16 12:57 PM) 151/86 mmHg *HI* (06/24/16 8:31 AM) 145/97 mmHg *HI* (06/24/16 4:39 AM) Blood Pressure [90-140/60-90 mmHg] 18 BRMIN (06/24/16 12:57 PM) 18 BRMIN (06/24/16 8:31 AM) 18 BRMIN (06/24/16 4:39 AM) Respiratory Rate [14-20 BRMIN] 100 bpm (06/24/16 12:57 PM) 96 bpm (06/24/16 8:31 AM) 110 bpm *HI* (06/24/16 4:39 AM) Peripheral Pulse Rate [60-100 bpm] 112.727 kg (06/24/16 2:55 PM) 112.727 kg (06/21/16 11:56 PM) Weight 38.92 m2 (06/24/16 2:55 PM) 38.92 m2 (06/21/16 11:56 PM) Body Mass Index Problem List Condition Effective Dates Status Health Status Informan t CHF - Congestive Active heart failure(Confirmed) DM (diabetes Active mellitus)(Confirmed) HTN - Active Hypertension(Confirm ed) Klebsiella(Confirmed 03/26/16 Active )1, 2 MRSA(Confirmed)3, 4, 02/23/16 Active 5 Osteomyelitis(Confir Active med) 1Blood, 03/29/2016 2Problem added by Discern Expert. 3right foot aspirate - 02/23/16 4nares - 02/19/16 5Problem added by Discern Expert. Allergies, Adverse Reactions, Alerts Substance Reaction Severity Status NKDA Active Medications acetaminophen 650 mg, 2 tab, Route: PO, Drug form: TAB, Q4H, Dosing Weight 112.727, kg, PRN Pa in 1-3/Temp > 100.4 F, Start date: 06/22/16 3:26:00 [employer], Duration: 30 day, Stop date: 07/22/16 3:25:00 CDT Notes: Do not exceed 4 gm/day. (Same as: Tylenol) Start Date: 06/22/16 Stop Date: 06/24/16 Status: Discontinued acetaminophen-hydrocodone 325 mg-5 mg oral tablet 1 tab, Route: PO, Drug Form: TAB, Dosing Weight 112.727, kg, Q4H, PRN Pain Score 4-6, Start date: 06/22/16 3:26:00 [employer], Duration: 30 day, Stop date: 07/22/16 3: 25:00 CDT Notes: (Same as: [place] 325/5) Do not exceed 4gm/day of acetaminophen. Start Date: 06/22/16 Stop Date: 06/24/16 Status: Discontinued acetaminophen-hydrocodone 325 mg-5 mg oral tablet 2 tab, Route: PO, Drug Form: TAB, Dosing Weight 112.727, kg, Q4H, PRN Pain Score 7-10, Start date: 06/22/16 3:26:00 [employer], Duration: 30 day, Stop date: 07/22/16 3 :25:00 CDT Notes: (Same as: [place] 325/5) Do not exceed 4gm/day of acetaminophen. Start Date: 06/22/16 Stop Date: 06/24/16 Status: Discontinued ALPRAZOLam 0.25 mg oral tablet 0.25 mg, 1 tab, Route: PO, Drug form: TAB, Q8H, Dosing Weight 112.727, kg, PRN A nxiety, Start date: 06/22/16 6:30:00 [employer], Duration: 30 day, Stop date: 07/22/16 6:29:00 CDT Notes: With food or milk(Same as: Xanax) Start Date: 06/22/16 Stop Date: 06/24/16 Status: Discontinued amLODIPine 10 mg, 1 tab, Route: PO, Drug form: TAB, Daily, Dosing Weight 112.727, kg, Start date: 06/22/16 9:00:00 [employer], Duration: 30 day, Stop date: 07/21/16 9:00:00 CDT Notes: (Same as: Norvasc) Start Date: 06/22/16 Stop Date: 06/24/16 Status: Discontinued atorvastatin 40 mg, 1 tab, Route: PO, Drug form: TAB, Bedtime, Dosing Weight 112.727, kg, Sta rt date: 06/22/16 21:00:00 [employer], Duration: 30 day, Stop date: 07/21/16 21:00:00 C DT Notes: (Same as: Lipitor) Start Date: 06/22/16 Stop Date: 06/24/16 Status: Discontinued bisacodyl 10 mg, 1 supp, Route: NH, Drug form: SUPP, Daily, Dosing Weight 112.727, kg, PRN Constipation, Start date: 06/22/16 6:30:00 [employer], Duration: 30 day, Stop date: 6:29:00 CDT Notes: (Same As: Dulcolax, Bisco-Lax) Start Date: 06/22/16 Stop Date: 06/24/16 Status: Discontinued carvedilol 25 mg, Route: PO, Drug form: TAB, Q12H, Dosing Weight 112.727, kg, Start date: 0 06/22/16 9:00:00 [employer], Duration: 30 day, Stop date: 07/21/16 21:00:00 CDT Start Date: 06/22/16 Stop Date: 06/22/16 Status: Canceled carvedilol 25 mg, 1 tab, Route: PO, Drug form: TAB, Q12H, Dosing Weight 112.727, kg, Start date: 06/22/16 9:00:00 [employer], Duration: 30 day, Stop date: 07/21/16 21:00:00 CDT Notes: Give with food. (Same As: Coreg) Start Date: 06/22/16 Stop Date: 06/24/16 Status: Discontinued docusate 100 mg, 1 cap, Route: PO, Drug form: CAP, BID, Dosing Weight 112.727, kg, Start date: 06/22/16 9:00:00 [employer], Duration: 30 day, Stop date: 07/21/16 17:00:00 CDT Notes: (Same as: Colace) (Do Not Crush) Start Date: 06/22/16 Stop Date: 06/24/16 Status: Discontinued gabapentin 300 mg oral capsule 300 mg, 1 cap, Route: PO, Drug form: CAP, Q12H, Dosing Weight 112.727, kg, Start date: 06/22/16 9:00:00 [employer], Duration: 30 day, Stop date: 07/21/16 21:00:00 CDT Notes: (Same as: Neurontin) Start Date: 06/22/16 Stop Date: 06/24/16 Status: Discontinued heparin 5,000 unit, 1 mL, Route: SUB-Q, Drug form: INJ, Q8H, Dosing Weight 112.727, kg, Start date: 06/22/16 8:00:00 [employer], Duration: 30 day, Stop date: 07/22/16 0:00:00 CDT Notes: porcine heparin Start Date: 06/22/16 Stop Date: 06/24/16 Status: Discontinued hydrALAZINE 10 mg, 0.5 mL, Route: IV, Drug form: INJ, ONCE, Dosing Weight 112.727, kg, Start date: 06/22/16 3:26:00 [employer], Stop date: 06/22/16 3:26:00 [employer] Notes: (Same as: Apresoline)Push over 5 minutes Start Date: 06/22/16 Stop Date: 06/22/16 Status: Completed hydrALAZINE 100 mg oral tablet 100 mg = 1 tab, PO, TID, # 90 tab, 0 Refill(s), Pharmacy: [id number] Start Date: 06/23/16 Status: Ordered hydrALAZINE 50 mg oral tablet 50 mg, 1 tab, Route: PO, Drug form: TAB, Q8H, Dosing Weight 112.727, kg, Start d ate: 06/22/16 8:00:00 [employer], Duration: 30 day, Stop date: 07/22/16 0:00:00 CDT Start Date: 06/22/16 Stop Date: 06/22/16 Status: Canceled hydrALAZINE 50 mg oral tablet 100 mg, 2 tab, Route: PO, Drug form: TAB, Q8H, Dosing Weight 112.727, kg, Start date: 06/22/16 8:00:00 [employer], Stop date: 07/22/16 0:00:00 CDT Notes: (Same as: Apresoline) May interfere w/enteral feedings Take With Food Start Date: 06/22/16 Stop Date: 06/24/16 Status: Discontinued methocarbamol 750 mg, 1 tab, Route: PO, Drug form: TAB, TID, Dosing Weight 112.727, kg, Start date: 06/22/16 8:00:00 [employer], Duration: 30 day, Stop date: 07/22/16 0:00:00 CDT Notes: (Same as:Robaxin) Start Date: 06/22/16 Stop Date: 06/24/16 Status: Discontinued minocycline 100 mg, 1 cap, Route: PO, Drug form: CAP, MIUA74L, Dosing Weight 112.727, kg, St art date: 06/22/16 9:00:00 [employer], Duration: 30 day, Stop date: 07/21/16 21:00:00 C DT Notes: (Same as:Minocin) No milk/antacids/iron. Start Date: 06/22/16 Stop Date: 06/24/16 Status: Discontinued morphine Sulfate 4 mg, 1 mL, Route: IVP, Drug form: INJ, Q4H, Dosing Weight 112.727, kg, PRN Pain Score 7-10, Start date: 06/22/16 3:26:00 [employer], Duration: 30 day, Stop date: 06/24 05/10 3:25:00 CDT Notes: (Same as:MORPhine Sulfate) Start Date: 06/22/16 Stop Date: 06/24/16 Status: Discontinued morphine Sulfate 4 mg, 1 mL, Route: IVP, Drug form: INJ, ONCE, Dosing Weight 112.727, kg, Priorit y: STAT, Start date: 06/22/16 3:26:00 [employer], Stop date: 06/22/16 3:26:00 [employer] Notes: (Same as:MORPhine Sulfate) Start Date: 06/22/16 Stop Date: 06/22/16 Status: Completed morphine Sulfate 4 mg, Route: IVP, ONCE, Dosing Weight 112.727, kg, Priority: STAT, Start date: 0 06/22/16 1:04:00 [employer], Stop date: 06/22/16 1:04:00 [employer] Start Date: 06/22/16 Stop Date: 06/22/16 Status: Completed ondansetron 4 mg, 2 mL, Route: IVP, Drug form: INJ, Q6H, Dosing Weight 112.727, kg, PRN Naus ea & Vomiting, Start date: 06/22/16 3:26:00 [employer], Duration: 30 day, Stop date: 07/22/16 3:25:00 CDT Notes: (Same as: Zofran) MEDICATION WASTE Product Size: 4 mgProduct Was sergio: ___ mg Start Date: 06/22/16 Stop Date: 06/24/16 Status: Discontinued oxyCODONE 5 mg oral tablet 5 mg, 1 tab, Route: PO, Drug form: TAB, Q6H, Dosing Weight 112.727, kg, PRN Pain Score 4-6, Start date: 06/22/16 6:30:00 [employer], Duration: 30 day, Stop date: 07/22 6:29:00 CDT Notes: (Same as: Roxicodone) Start Date: 06/22/16 Stop Date: 06/24/16 Status: Discontinued polyethylene glycol 3350 17 gm, 1 pkt, Route: PO, Drug form: PWDR, Daily, Dosing Weight 112.727, kg, Star t date: 06/22/16 9:00:00 [employer], Duration: 30 day, Stop date: 07/21/16 9:00:00 CDT Notes: Dissolve in 8 oz of water or juice.(Same as: Miralax) Start Date: 06/22/16 Stop Date: 06/24/16 Status: Discontinued senna 8.6 mg oral tablet 17.2 mg, 2 tab, Route: PO, Drug Form: TAB, Dosing Weight 112.727, kg, Bedtime, S tart date: 06/22/16 21:00:00 [employer], Duration: 30 day, Stop date: 07/21/16 21:00:00 CDT Notes: (Same as: Senokot) Start Date: 06/22/16 Stop Date: 06/24/16 Status: Discontinued Zofran 4 mg, Route: IVP, Drug form: INJ, ONCE, Dosing Weight 112.727, kg, Priority: STA T, Start date: 06/22/16 1:05:00 [employer], Stop date: 06/22/16 1:05:00 [employer]S CLE[employer]ER Start Date: 06/22/16 Stop Date: 06/22/16 Status: Completed Results BLOOD BANK RESULTS 1 2 3 Most recent to oldest [Reference Range]: A POS *Unknown* (06/23/16 3:50 AM) ABO/Rh Negative (06/23/16 3:50 AM) Antibody Scrn ELECTROLYTES 1 2 3 Most recent to oldest [Reference Range]: 142 mEq/L (06/24/16 5:16 AM) 141 mEq/L (06/23/16 3:50 AM) 139 mEq/L (06/22/16 12:44 AM) Sodium Lvl [135-145 mEq/L] 5.1 mEq/L (06/24/16 5:16 AM) 4.7 mEq/L (06/23/16 3:50 AM) 5.0 mEq/L (06/22/16 12:44 AM) Potassium Lvl [3.5-5.1 mEq/L] 111 mEq/L *HI* (06/24/16 5:16 AM) 111 mEq/L *HI* (06/23/16 3:50 AM) 108 mEq/L (06/22/16 12:44 AM) Chloride Lvl [95-109 mEq/L] 22 mEq/L *LOW* (06/24/16 5:16 AM) 21 mEq/L *LOW* (06/23/16 3:50 AM) 22 mEq/L *LOW* (06/22/16 12:44 AM) CO2 [24-32 mEq/L] 14.1 mEq/L (06/24/16 5:16 AM) 13.7 mEq/L (06/23/16 3:50 AM) 14.0 mEq/L (06/22/16 12:44 AM) AGAP [10.0-20.0 mEq/L] CHEM PANEL 1 2 3 Most recent to oldest [Reference Range]: 2.87 mg/dL *HI* (06/24/16 5:16 AM) 2.68 mg/dL *HI* (06/23/16 3:50 AM) 2.83 mg/dL *HI* (06/22/16 12:44 AM) Creatinine Lvl [0.50-1.40 mg/dL] 22 mL/min/1.73m2 1 *NA* (06/24/16 5:16 AM) 24 mL/min/1.73m2 2 *NA* (06/23/16 3:50 AM) 23 mL/min/1.73m2 3 *NA* (06/22/16 12:44 AM) eGFR 31 mg/dL *HI* (06/24/16 5:16 AM) 27 mg/dL *HI* (06/23/16 3:50 AM) 29 mg/dL *HI* (06/22/16 12:44 AM) BUN [7-22 mg/dL] 111 mg/dL *HI* (06/24/16 5:16 AM) 119 mg/dL *HI* (06/23/16 3:50 AM) 265 mg/dL *HI* (06/22/16 12:44 AM) Glucose Lvl [70-99 mg/dL] 8.6 mg/dL (06/24/16 5:16 AM) 8.5 mg/dL (06/23/16 3:50 AM) 8.0 mg/dL *LOW* (06/22/16 12:44 AM) Calcium Lvl [8.5-10.5 mg/dL] 1.0 mMol/L (06/22/16 12:44 AM) Lactic Acid Lvl [0.5-2.2 mMol/L] 1Result [...] Most recent to oldest [Reference Range]: Negative (06/23/16 3:50 AM) U Preg [Negative] IMMUNOLOGY 1 2 3 Most recent to oldest [Reference Range]: 16.7 mg/L *HI* (06/22/16 9:18 AM) CRP [<=2.9 mg/L] HEMATOLOGY 1 2 3 Most recent to oldest [Reference Range]: 6.1 K/CMM (06/23/16 3:50 AM) 7.6 K/CMM (06/22/16 12:44 AM) WBC [3.7-10.4 K/CMM] 3.20 M/CMM *LOW* (06/23/16 3:50 AM) 3.41 M/CMM *LOW* (06/22/16 12:44 AM) RBC [4.20-5.40 M/CMM] 9.4 g/dL *LOW* (06/23/16 3:50 AM) 9.8 g/dL *LOW* (06/22/16 12:44 AM) Hgb [12.0-16.0 g/dL] 29.1 % *LOW* (06/23/16 3:50 AM) 30.4 % *LOW* (06/22/16 12:44 AM) Hct [36.0-48.0 %] 90.9 fL (06/23/16 3:50 AM) 89.3 fL (06/22/16 12:44 AM) MCV [80.0-98.0 fL] 29.4 pg (06/23/16 3:50 AM) 28.8 pg (06/22/16 12:44 AM) MCH [27.0-31.0 pg] 32.4 g/dL (06/23/16 3:50 AM) 32.2 g/dL (06/22/16 12:44 AM) MCHC [32.0-36.0 g/dL] 14.9 % *HI* (06/23/16 3:50 AM) 15.4 % *HI* (06/22/16 12:44 AM) RDW [11.5-14.5 %] 323 K/CMM (06/23/16 3:50 AM) 323 K/CMM (06/22/16 12:44 AM) Platelet [133-450 K/CMM] 8.9 fL (06/23/16 3:50 AM) 8.7 fL (06/22/16 12:44 AM) MPV [7.4-10.4 fL] 44.2 % *LOW* (06/23/16 3:50 AM) 56.6 % (06/22/16 12:44 AM) Segs [45.0-75.0 %] 43.1 % *HI* (06/23/16 3:50 AM) 30.7 % (06/22/16 12:44 AM) Lymphocytes [20.0-40.0 %] 6.6 % (06/23/16 3:50 AM) 7.8 % (06/22/16 12:44 AM) Monocytes [2.0-12.0 %] 5.4 % *HI* (06/23/16 3:50 AM) 3.8 % (06/22/16 12:44 AM) Eosinophils [0.0-4.0 %] 0.7 % (06/23/16 3:50 AM) 1.1 % *HI* (06/22/16 12:44 AM) Basophils [0.0-1.0 %] 2.7 K/CMM (06/23/16 3:50 AM) 4.3 K/CMM (06/22/16 12:44 AM) Segs-Bands # [1.5-8.1 K/CMM] 2.6 K/CMM (06/23/16 3:50 AM) 2.3 K/CMM (06/22/16 12:44 AM) Lymphocytes # [1.0-5.5 K/CMM] 0.4 K/CMM (06/23/16 3:50 AM) 0.6 K/CMM (06/22/16 12:44 AM) Monocytes # [0.0-0.8 K/CMM] 0.3 K/CMM (06/23/16 3:50 AM) 0.3 K/CMM (06/22/16 12:44 AM) Eosinophils # [0.0-0.5 K/CMM] 0.1 K/CMM (06/22/16 12:44 AM) Basophils # [0.0-0.2 K/CMM] >100 mm/hr *ABN* (06/22/16 9:18 AM) Sed Rate [0-20 mm/hr] 13.4 seconds (06/23/16 3:50 AM) 13.4 seconds (06/23/16 3:50 AM) 12.9 seconds (06/22/16 12:44 AM) PT [12.0-14.7 seconds] 1.00 (06/23/16 3:50 AM) 1.00 (06/23/16 3:50 AM) 0.95 (06/22/16 12:44 AM) INR [0.85-1.17] 39.9 seconds *HI* (06/23/16 3:50 AM) 32.1 seconds (06/22/16 12:44 AM) PTT [22.9-35.8 seconds] Immunizations Given and [...] Ankle Daily Author: Louis Sales MD Date: 06/24/16 Progress Note ORS Foot and Ankle Daily Progress Note SUBJECTIVE Doing well, pain well controlled on current regimen, denies any new symptoms since previous examination OBJECTIVE VitalsTmp(F)[id number] 06/24 08:[id number]/[id number]--- 06/24 04:[id number]--- 06/23 23:[id number]/[id number]--- 06/23 19:[id number]--- 06/23 16:[id number]--- 24 Hr Tmax: 98.8F (37.11c) at 06/24 08:3 1Vital Signs are the last 5 in the past 48 hours. RLE: Extensive edema to R ankle/foot with rocker bottom deformity. Numerous healed wounds throughout foot and ankle. 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 No actively draining wounds. Able to weakly move ankle. Ankle grossly unstable in sagittal plane. Endorses decreased sensation throughout foot. ASSESSMENT & PLAN 40F with chronic Charcot/osteo R foot/an kle admitted with increased pain with acute fx - Patient declined amputation, will f/u in clinic for possible ankle fusion - WBS: NWB RLE - DVT PPx: SERGIO/SCD per primary - Pain Control: MMP control - Abx: per primary - PT/OT: consulted - Dispo: - OK for discharge per ORS F&A, f/u with Dr. Fernandez 1 week s/p discharge for further operative planning Louis May III, MD PGY-2 Orthopaedic Surgery Pager#: [phone] MSO#: [id number] Extracted from: Title: Infection Control Isolation Author: Zainab Restrepo Date: 06/22/16 Alert ISOLATION ALERT This patient has a history of infection/colonization with a multi-drug resistant organism. Organism Site Date MDR Klebsiella-BNXRJtwvj68/03/2016 MRSARt Foot Pdjfaltc18/01/2016 Isolation Required: CONTACT Before isolation precautions may [...] and at least one should be an mounter specimen Sputum Varicella Maintain precautions until all [...] any questions. We can be reached at [phone]. Extracted from: Title: History and Physical Author: Farnaz Peacock MD [...] determination of surgery Hospitalist is Primary, pager [phone]
--- OUTSIDE RECORDS SUMMARY | 2019-09-10 20:14 | XMS REPORT | Summary of Care ---
Author Author [facility] Organization [facility] Address Unknown Phone Unavailable Encounter PRIMITIVO Mariano(SANGITA) [id number] Date(s): 08/02/16 - 08/03/16 [facility] [address] [employer] provided by [employer] [place] [address]- Discharge Diagnosis: Pain, abdominal, RUQ Discharge Disposition: Home or Self Care Attending Physician: Bertrand Ramirez MD Vital Signs 1 2 3 Most recent to oldest [Reference Range]: 170.18 cm (08/02/16 2:56 PM) Height 98.2 DegF (08/03/16 12:16 AM) 97.8 DegF (08/02/16 6:45 PM) 97.7 DegF (08/02/16 2:56 PM) Temperature Oral [96.4-99.1 DegF] 152/84 mmHg *HI* (08/03/16 12:16 AM) 171/88 mmHg *HI* (08/02/16 10:54 PM) 228/105 mmHg *HI* (08/02/16 9:25 PM) Blood Pressure [90-140/60-90 mmHg] 16 BRMIN (08/03/16 12:16 AM) 11 BRMIN *LOW* (08/02/16 10:54 PM) 18 BRMIN (08/02/16 9:25 PM) Respiratory Rate [14-20 BRMIN] 95 bpm (08/02/16 5:31 PM) 111 bpm *HI* (08/02/16 2:56 PM) Peripheral Pulse Rate [60-100 bpm] 114.545 kg (08/02/16 2:56 PM) Weight 39.55 m2 (08/02/16 2:56 PM) Body Mass Index Problem List Condition Effective Dates Status Health Status Informan t Anxiety(Confirmed) Resolved CHF - Congestive Active heart failure(Confirmed) Chronic Resolved depression(Confirmed ) DM (diabetes Active mellitus)(Confirmed) HTN - Active Hypertension(Confirm ed) Klebsiella(Confirmed 03/26/16 Active )1, 2 MRSA(Confirmed)3, 4, 02/23/16 Active 5 Osteomyelitis(Confir Active med) 1Blood, 03/29/2016 2Problem added by Discern Expert. 3right foot aspirate - 02/23/16 4nares - 02/19/16 5Problem added by Discern Expert. Allergies, Adverse Reactions, Alerts Substance Reaction Severity Status NKDA Active Medications carvedilol 25 mg, Route: IV, ONCE, Dosing Weight 114.545, kg, Start date: 08/02/16 15:59:00 CDT, Stop date: 08/02/16 15:59:00 CDT Start Date: 08/02/16 Stop Date: 08/02/16 Status: Discontinued carvedilol 25 mg, 1 tab, Route: PO, Drug form: TAB, ONCE, Dosing Weight 114.545, kg, Start date: 08/02/16 21:14:00 CDT, Stop date: 08/02/16 21:14:00 CDT Start Date: 08/02/16 Stop Date: 08/02/16 Status: Completed Dilaudid 0.5 mg, Route: IVP, ONCE, Dosing Weight 114.545, kg, Priority: STAT, Start date: 08/02/16 18:27:00 CDT, Stop date: 08/02/16 18:27:00 CDT Start Date: 08/02/16 Stop Date: 08/02/16 Status: Completed fentaNYL 50 microgram, Route: IVP, ONCE, Dosing Weight 114.545, kg, Priority: STAT, Start date: 08/02/16 17:04:00 CDT, Stop date: 08/02/16 17:04:00 CDT Start Date: 08/02/16 Stop Date: 08/02/16 Status: Completed fentaNYL 50 microgram, Route: IV, Drug form: INJ, ONCE, Dosing Weight 114.545, kg, Start date: 08/02/16 17:04:00 CDT, Stop date: 08/02/16 17:04:00 CDT Start Date: 08/02/16 Stop Date: 08/02/16 Status: Completed fentaNYL 50 microgram, 1 mL, Route: IM, Drug form: INJ, ONCE, Dosing Weight 114.545, kg, Priority: STAT, Start date: 08/02/16 16:22:00 CDT, Stop date: 08/02/16 16:22:00 CDT Notes: (Same as: Sublimaze) Preservative free. Start Date: 08/02/16 Stop Date: 08/02/16 Status: Discontinued fentaNYL 25 microgram, 0.5 mL, Route: IVP, Drug form: INJ, ONCE, Dosing Weight 114.545, k g, Priority: STAT, Start date: 08/02/16 23:44:00 CDT, Stop date: 08/02/16 23:44: 00 CDT Notes: (Same as: Sublimaze) Preservative free. Start Date: 08/02/16 Stop Date: 08/03/16 Status: Completed Haldol 2.5 mg, Route: IV, ONCE, Dosing Weight 114.545, kg, Start date: 08/02/16 17:20:0 0 CDT, Stop date: 08/02/16 17:20:00 CDT Start Date: 08/02/16 Stop Date: 08/02/16 Status: Completed Haldol 5 mg, Route: IM, ONCE, Dosing Weight 114.545, kg, Priority: STAT, Start date: 16:26:00 CDT, Stop date: 08/02/16 16:26:00 CDT Start Date: 08/02/16 Stop Date: 08/02/16 Status: Completed hydrALAZINE 10 mg, 0.5 mL, Route: IV, Drug form: INJ, ONCE, Dosing Weight 114.545, kg, Start date: 08/02/16 17:21:00 CDT, Stop date: 08/02/16 17:21:00 CDT Notes: (Same as: Apresoline)Push over 5 minutes Start Date: 08/02/16 Stop Date: 08/02/16 Status: Completed hydrALAZINE 10 mg, Route: IV, ONCE, Dosing Weight 114.545, kg, Start date: 08/02/16 18:03:00 CDT, Stop date: 08/02/16 18:03:00 CDT Start Date: 08/02/16 Stop Date: 08/02/16 Status: Discontinued hydrALAZINE 10 mg, 0.5 mL, Route: IV, Drug form: INJ, ONCE, Dosing Weight 114.545, kg, Start date: 08/02/16 15:47:00 CDT, Stop date: 08/02/16 15:47:00 CDT Notes: (Same as: Apresoline) Start Date: 08/02/16 Stop Date: 08/02/16 Status: Completed hydrALAZINE 100 mg oral tablet 100 mg, 2 tab, Route: PO, Drug form: TAB, ONCE, Dosing Weight 114.545, kg, Start date: 08/02/16 21:13:00 CDT, Stop date: 08/02/16 21:13:00 CDT Notes: (Same as: Apresoline) May interfere w/enteral feedings Take With Food Start Date: 08/02/16 Stop Date: 08/02/16 Status: Completed metoprolol 5 mg/5 ml INJ 5 mg, Route: IVP, Drug form: INJ, ONCE, Dosing Weight 114.545, kg, Priority: STA T, Start date: 08/02/16 17:35:00 CDT, Stop date: 08/02/16 17:35:00 CDT Start Date: 08/02/16 Stop Date: 08/02/16 Status: Completed metoprolol 5 mg/5 ml INJ 5 mg, Route: IVP, Drug form: INJ, ONCE, Dosing Weight 114.545, kg, Priority: STA T, Start date: 08/02/16 17:19:00 CDT, Stop date: 08/02/16 17:19:00 CDT Start Date: 08/02/16 Stop Date: 08/02/16 Status: Discontinued morphine Sulfate 4 mg, Route: IVP, ONCE, Dosing Weight 114.545, kg, Priority: STAT, Start date: 0 08/02/16 19:56:00 CDT, Stop date: 08/02/16 19:56:00 CDT Start Date: 08/02/16 Stop Date: 08/02/16 Status: Completed morphine Sulfate 4 mg, 1 mL, Route: IVP, Drug form: INJ, ONCE, Dosing Weight 114.545, kg, Priorit y: STAT, Start date: 08/02/16 15:07:00 CDT, Stop date: 08/02/16 15:07:00 CDT Notes: (Same as:MORPhine Sulfate) Start Date: 08/02/16 Stop Date: 08/02/16 Status: Completed NIFEdipine 90 mg oral tablet, extended release 90 mg, 1 tab, Route: PO, Drug form: ERTAB, ONCE, Dosing Weight 114.545, kg, Star t date: 08/02/16 21:13:00 CDT, Stop date: 08/02/16 21:13:00 CDT Start Date: 08/02/16 Stop Date: 08/02/16 Status: Completed ondansetron 4 mg, 2 mL, Route: IVP, Drug form: INJ, ONCE, Dosing Weight 114.545, kg, Priorit y: STAT, Start date: 08/02/16 15:07:00 CDT, Stop date: 08/02/16 15:07:00 CDT Notes: (Same as: Luis) MEDICATION WASTE Product Size: 4 mgProduct Was savana: ___ mg Start Date: 08/02/16 Stop Date: 08/02/16 Status: Completed Reglan 5 mg, 1 mL, Route: IVP, Drug form: INJ, ONCE, Dosing Weight 114.545, kg, Priorit y: STAT, Start date: 08/02/16 23:44:00 CDT, Stop date: 08/02/16 23:44:00 CDT Notes: (Same as: Reglan) Start Date: 08/02/16 Stop Date: 08/03/16 Status: Completed Sodium Chloride 0.9% (Bolus) IV 1,000 mL, 1000 ml/hr, Infuse Over: 1 hr, Route: IV, 1,000, Drug form: INJ, ONCE, Priority: STAT, Dosing Weight 114.545 kg, Start date: 08/02/16 15:07:00 CDT, Du ration: 1 doses or times, Stop date: 08/02/16 15:07:00 CDT Start Date: 08/02/16 Stop Date: 08/02/16 Status: Completed tramadol 50 mg oral tablet 50 mg, 1 tab, Route: PO, Drug form: TAB, ONCE, Dosing Weight 114.545, kg, Priori ty: STAT, Start date: 08/02/16 21:58:00 CDT, Stop date: 08/02/16 21:58:00 CDT Notes: Not to exceed 400mg/day. (Same As: Ultram) Start Date: 08/02/16 Stop Date: 08/03/16 Status: Completed Results ELECTROLYTES Most recent to 1 oldest [Reference Range]: Sodium Lvl [135-145 139 mEq/L mEq/L] (08/02/16 3:45 PM) Potassium Lvl 4.9 mEq/L [3.5-5.1 mEq/L] (08/02/16 3:45 PM) Chloride Lvl [95-109 111 mEq/L mEq/L] *HI* (08/02/16 3:45 PM) CO2 [24-32 mEq/L] 18 mEq/L *LOW* (08/02/16 3:45 PM) AGAP [10.0-20.0 14.9 mEq/L mEq/L] (08/02/16 3:45 PM) CHEM PANEL Most recent to 1 oldest [Reference Range]: Creatinine Lvl 2.50 mg/dL [0.50-1.40 mg/dL] *HI* (08/02/16 3:45 PM) eGFR 27 mL/min/1.73m2 1 *NA* (08/02/16 3:45 PM) BUN [7-22 mg/dL] 30 mg/dL *HI* (08/02/16 3:45 PM) Glucose Lvl [70-99 172 mg/dL mg/dL] *HI* (08/02/16 3:45 PM) Total Protein 6.7 g/dL [6.4-8.4 g/dL] (08/02/16 3:42 PM) Albumin Lvl [3.5-5.0 1.6 g/dL g/dL] *LOW* (08/02/16 3:42 PM) Globulin [2.7-4.2 5.1 g/dL g/dL] *HI* (08/02/16 3:42 PM) A/G Ratio [0.7-1.6] 0.3 *LOW* (08/02/16 3:42 PM) Calcium Lvl 8.5 mg/dL [8.5-10.5 mg/dL] (08/02/16 3:45 PM) ALT [0-65 unit/L] 6 unit/L (08/02/16 3:42 PM) AST [0-37 unit/L] 7 unit/L (08/02/16 3:42 PM) Alk Phos [39-136 151 unit/L unit/L] *HI* (08/02/16 3:42 PM) Bili Total [0.2-1.3 0.2 mg/dL mg/dL] (08/02/16 3:42 PM) Bili Direct [0.0-0.3 <0.05 mg/dL mg/dL] (08/02/16 3:42 PM) Bili Indirect See Note 2 [0.0-1.0] (08/02/16 3:42 PM) Lipase Lvl [73-393 110 unit/L unit/L] (08/02/16 3:45 PM) Lactic Acid Lvl 0.7 mMol/L [0.5-2.2 mMol/L] (08/02/16 3:45 PM) 1Result Comment: The eGFR is calculated [...] be calculated due to low analyte value ENDOCRINOLOGY Most recent to 1 oldest [Reference Range]: hCG Tot <1.0 mIU/mL (08/02/16 3:42 PM) URINE AND STOOL Most recent to 1 oldest [Reference Range]: UA Turbidity [Clear] Clear (08/02/16 4:49 PM) UA Color [Yellow] Yellow *NA* (08/02/16 4:49 PM) UA pH [5.0-8.0] 7.5 (08/02/16 4:49 PM) UA Spec Grav 1.015 [<=1.030] (08/02/16 4:49 PM) UA Glucose [Negative 250 mg/dL mg/dL] *ABN* (08/02/16 4:49 PM) UA Blood [Negative] Small *ABN* (08/02/16 4:49 PM) UA Ketones Negative [Negative] *NA* (08/02/16 4:49 PM) UA Protein [Negative >=300 mg/dL mg/dL] *ABN* (08/02/16 4:49 PM) UA Urobilinogen 0.2 EU/dL [0.1-1.0 EU/dL] (08/02/16 4:49 PM) UA Bili [Negative] Negative *NA* (08/02/16 4:49 PM) UA Leuk Est Negative [Negative] (08/02/16 4:49 PM) UA Nitrite Negative [Negative] (08/02/16 4:49 PM) UA WBC [None Seen 0-2 /HPF /HPF] (08/02/16 4:49 PM) UA RBC 5-8 *NA* (08/02/16 4:49 PM) UA Bacteria [None None Seen Seen] (08/02/16 4:49 PM) UA Sq Epi [Few /LPF] Few /LPF (08/02/16 4:49 PM) UA Mucus [None Seen] None Seen (08/02/16 4:49 PM) HEMATOLOGY Most recent to 1 oldest [Reference Range]: WBC [3.7-10.4 K/CMM] 7.9 K/CMM (08/02/16 3:45 PM) RBC [4.20-5.40 4.20 M/CMM M/CMM] (08/02/16 3:45 PM) Hgb [12.0-16.0 g/dL] 12.2 g/dL (08/02/16 3:45 PM) Hct [36.0-48.0 %] 37.1 % (08/02/16 3:45 PM) MCV [80.0-98.0 fL] 88.4 fL (08/02/16 3:45 PM) MCH [27.0-31.0 pg] 29.0 pg (08/02/16 3:45 PM) MCHC [32.0-36.0 32.8 g/dL g/dL] (08/02/16 3:45 PM) RDW [11.5-14.5 %] 14.4 % (08/02/16 3:45 PM) Platelet [133-450 476 K/CMM K/CMM] *HI* (08/02/16 3:45 PM) MPV [7.4-10.4 fL] 8.4 fL (08/02/16 3:45 PM) Segs [45.0-75.0 %] 64.1 % (08/02/16 3:45 PM) Lymphocytes 28.2 % [20.0-40.0 %] (08/02/16 3:45 PM) Monocytes [2.0-12.0 4.8 % %] (08/02/16 3:45 PM) Eosinophils [0.0-4.0 1.9 % %] (08/02/16 3:45 PM) Basophils [0.0-1.0 1.0 % %] (08/02/16 3:45 PM) Segs-Bands # 5.1 K/CMM [1.5-8.1 K/CMM] (08/02/16 3:45 PM) Lymphocytes # 2.2 K/CMM [1.0-5.5 K/CMM] (08/02/16 3:45 PM) Monocytes # [0.0-0.8 0.4 K/CMM K/CMM] (08/02/16 3:45 PM) Eosinophils # 0.2 K/CMM [0.0-0.5 K/CMM] (08/02/16 3:45 PM) Basophils # [0.0-0.2 0.1 K/CMM K/CMM] (08/02/16 3:45 PM) PT [12.0-14.7 12.3 seconds seconds] (08/02/16 3:45 PM) INR [0.85-1.17] 0.90 (08/02/16 3:45 PM) PTT [22.9-35.8 31.6 seconds seconds] (08/02/16 3:45 PM) Immunizations Given and Recorded Vaccine Date Status Refusal Reason influenza virus vaccine, inactivated 01/08/16 G iven pneumococcal 23-valent vaccine 01/08/16 Given Procedures Procedure Date Related Diagnosis Body Site Amputation1 section 12 toes in R foot Social History Social History Type Response Substance Abuse Use: Past. Type: Cocaine. IV drug use: No. Drug use interferes with work/home: No. Ready to change: No. 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
--- OUTSIDE RECORDS SUMMARY | 2019-09-10 20:14 | XMS REPORT | Summary of Care ---
Author Author [facility] Organization [facility] Address Unknown Phone Unavailable Encounter PRIMITIVO Mariano(SANGITA) [id number] Date(s): 07/23/16 - 07/23/16 [facility] [address] [employer] provided by [facility] [employer] [facility] [place] [address]- Discharge Diagnosis: Leg pain, right Discharge Disposition: Home or Self Care Attending Physician: Tyler Rosales MD Vital Signs Most recent to 1 2 oldest [Reference Range]: Height 170.18 cm (07/23/16 1:03 AM) Temperature Oral 98.0 DegF 99.6 DegF [96.4-99.1 DegF] (07/23/16 3:00 AM) *HI* (07/23/16 1:03 AM) Blood Pressure 167/98 mmHg 174/123 mmHg [90-140/60-90 mmHg] *HI* *HI* (07/23/16 3:00 AM) (07/23/16 1:03 AM) Respiratory Rate 18 BRMIN [14-20 BRMIN] (07/23/16 1:03 AM) Peripheral Pulse 114 bpm Rate [60-100 bpm] *HI* (07/23/16 1:03 AM) Weight 114.091 kg (07/23/16 1:03 AM) Body Mass Index 39.39 m2 (07/23/16 1:03 AM) Problem List Condition Effective Dates Status Health [...] ONCE, Dosing Weight 114.091, kg, Start date: 07/23/16 1:33:00 CDT, Stop date: 07/23/16 1:33:00 CDT Notes: Give with food. (Same As: Coreg) Start Date: 07/23/16 Stop Date: 07/23/16 Status: Completed hydrALAZINE 20 mg, 1 mL, Route: IVP, Drug form: INJ, ONCE, Dosing Weight 114.091, kg, Priori ty: STAT, Start date: 07/23/16 1:33:00 CDT, Stop date: 07/23/16 1:33:00 CDT Notes: (Same as: Apresoline)Push over 5 minutes Start Date: 07/23/16 Stop Date: 07/23/16 Status: Completed Macrobid 100 mg oral capsule 100 mg = 1 cap, PO, BID, X 7 day, # 14 cap, 0 Refill(s) Start Date: 07/23/16 Stop Date: 07/30/16 Status: Ordered morphine Sulfate 4 mg, 1 mL, Route: IVP, Drug form: INJ, ONCE, Dosing Weight 114.091, kg, Priorit y: STAT, Start date: 07/23/16 1:34:00 CDT, Stop date: 07/23/16 1:34:00 CDT Notes: (Same as:MORPhine Sulfate) Start Date: 07/23/16 Stop Date: 07/23/16 Status: Completed sodium chloride 0.9% 1000 ml INJ 1,000 mL 1,000 mL, Rate: 1,000 ml/hr, Infuse over: 1 hr, Route: IV, Dosing Weight 114.091 kg, Total Volume: 1,000, Start date: 07/23/16 1:34:00 CDT, Duration: 30 day, St op date: 08/22/16 1:33:00 CDT Start Date: 07/23/16 Stop Date: 07/23/16 Status: Discontinued Zofran 4 mg, 2 mL, Route: IVP, Drug form: INJ, ONCE, Dosing Weight 114.091, kg, Priorit y: STAT, Start date: 07/23/16 1:34:00 CDT, Stop date: 07/23/16 1:34:00 CDT Notes: (Same as: Zofran) MEDICATION WASTE Product Size: 4 mgProduct Was savana: ___ mg Start Date: 07/23/16 Stop Date: 07/23/16 Status: Completed Results URINE AND STOOL Most recent to 1 oldest [Reference Range]: UA Turbidity [Clear] Clear (07/23/16 2:22 AM) UA Color [Yellow] Yellow *NA* (07/23/16 2:22 AM) UA pH [5.0-8.0] 6.0 (07/23/16 2:22 AM) UA Spec Grav 1.020 [<=1.030] (07/23/16 2:22 AM) UA Glucose [Negative 250 mg/dL mg/dL] *ABN* (07/23/16 2:22 AM) UA Blood [Negative] Small *ABN* (07/23/16 2:22 AM) UA Ketones Negative [Negative] *NA* (07/23/16 2:22 AM) UA Protein [Negative >=300 mg/dL mg/dL] *ABN* (07/23/16 2:22 AM) UA Urobilinogen 0.2 EU/dL [0.1-1.0 EU/dL] (07/23/16 2:22 AM) UA Bili [Negative] Negative *NA* (07/23/16 2:22 AM) UA Leuk Est Negative [Negative] (07/23/16 2:22 AM) UA Nitrite Negative [Negative] (07/23/16 2:22 AM) UA WBC [None Seen 6-10 /HPF /HPF] *ABN* (07/23/16 2:22 AM) UA RBC [0-2 /HPF] 3-5 /HPF *ABN* (07/23/16 2:22 AM) UA Bacteria [None Moderate /HPF Seen /HPF] (07/23/16 2:22 AM) UA Sq Epi [Few /LPF] Moderate /LPF *ABN* (07/23/16 2:22 AM) UA Mucus [None Seen] None Seen (07/23/16 2:22 AM) Immunizations Given and Recorded Vaccine Date [...]
--- OUTSIDE RECORDS SUMMARY | 2019-09-10 20:14 | XMS REPORT | Summary of Care ---
Author Author [facility] Organization [facility] Address Unknown Phone Unavailable Encounter PRIMITIVO Mariano(SANGITA) [id number] Date(s): 08/21/16 - 08/22/16 [facility] [address] [employer] provided by [employer] [place] [address]- Discharge Diagnosis: Abdominal pain Discharge Diagnosis: Gallstones Discharge Disposition: Home or Self Care Attending Physician: Naomi Harvey MD Vital Signs Most recent to 1 2 oldest [Reference Range]: Temperature Oral 97.6 DegF 98.9 DegF [96.4-99.1 DegF] (08/21/16 9:00 PM) (08/21/16 6:57 PM) Blood Pressure 150/80 mmHg 194/135 mmHg [90-140/60-90 mmHg] *HI* *HI* (08/21/16 9:00 PM) (08/21/16 6:57 PM) Respiratory Rate 16 BRMIN 18 BRMIN [14-20 BRMIN] (08/21/16 9:00 PM) (08/21/16 6:57 PM) Peripheral Pulse 85 bpm 116 bpm Rate [60-100 bpm] (08/21/16 9:00 PM) *HI* (08/21/16 6:57 PM) Problem List Condition Effective Dates Status Health Status Informan t Anxiety(Confirmed) Resolved CHF - Congestive Active heart failure(Confirmed) Chronic Resolved depression(Confirmed ) DM (diabetes Active mellitus)(Confirmed) Biliary Active colic(Confirmed) HTN - Active Hypertension(Confirm ed) Klebsiella(Confirmed 03/26/16 Active )1, 2 MRSA(Confirmed)3, 4, 02/23/16 Active 5 1Blood, 03/29/2016 2Problem added by Discern Expert. 3right foot aspirate - 02/23/16 4nares - 02/19/16 5Problem added by Discern Expert. Allergies, Adverse Reactions, Alerts Substance Reaction Severity Status NKDA Active Medications Bentyl 20 mg oral tablet 20 mg = 1 tab, PO, QID-Before Meals, PRN Abdominal Pain, # 60 tab, 0 Refill(s) Start Date: 08/21/16 Status: Ordered morphine Sulfate 4 mg, 1 mL, Route: IVP, Drug form: INJ, ONCE, Dosing Weight 120.597, kg, Priorit y: STAT, Start date: 08/21/16 22:18:00 CDT, Stop date: 08/21/16 22:18:00 CDT Notes: (Same as:MORPhine Sulfate) Start Date: 08/21/16 Stop Date: 08/21/16 Status: Completed morphine Sulfate 6 mg, 0.6 mL, Route: IVP, Drug form: SOLN, ONCE, Dosing Weight 120.597, kg, Prio rity: STAT, Start date: 08/21/16 20:24:00 CDT, Stop date: 08/21/16 20:24:00 CDT Notes: (Same as: MORPhine Sulfate) Start Date: 08/21/16 Stop Date: 08/21/16 Status: Completed Phenergan 25 mg, 1 mL, Route: IVPB, Drug form: INJ, ONCE, Dosing Weight 120.597, kg, Prior ity: STAT, Start date: 08/21/16 20:24:00 CDT, Stop date: 08/21/16 20:24:00 CDT Notes: Do not give IV push. (Same as: Phenergan) Start Date: 08/21/16 Stop Date: 08/21/16 Status: Completed Results ELECTROLYTES Most recent to 1 oldest [Reference Range]: Sodium Lvl [135-145 139 mEq/L mEq/L] (08/21/16 7:24 PM) Potassium Lvl 5.4 mEq/L [3.5-5.1 mEq/L] *HI* (08/21/16 7:24 PM) Chloride Lvl [95-109 112 mEq/L mEq/L] *HI* (08/21/16 7:24 PM) CO2 [24-32 mEq/L] 18 mEq/L *LOW* (08/21/16 7:24 PM) AGAP [10.0-20.0 14.4 mEq/L mEq/L] (08/21/16 7:24 PM) CHEM PANEL Most recent to 1 oldest [Reference Range]: Creatinine Lvl 3.26 mg/dL [0.50-1.40 mg/dL] *HI* (08/21/16 7:24 PM) eGFR 19 mL/min/1.73m2 1 *NA* (08/21/16 7:24 PM) BUN [7-22 mg/dL] 31 mg/dL *HI* (08/21/16 7:24 PM) B/C Ratio [6-25] 10 (08/21/16 7:24 PM) Glucose Lvl [70-99 187 mg/dL mg/dL] *HI* (08/21/16 7:24 PM) Total Protein 6.3 g/dL [6.4-8.4 g/dL] *LOW* (08/21/16 7:24 PM) Albumin Lvl [3.5-5.0 1.6 g/dL g/dL] *LOW* (08/21/16 7:24 PM) Globulin [2.7-4.2 4.7 g/dL g/dL] *HI* (08/21/16 7:24 PM) A/G Ratio [0.7-1.6] 0.3 *LOW* (08/21/16 7:24 PM) Calcium Lvl 8.3 mg/dL [8.5-10.5 mg/dL] *LOW* (08/21/16 7:24 PM) ALT [0-65 unit/L] 10 unit/L (08/21/16 7:24 PM) AST [0-37 unit/L] 7 unit/L (08/21/16 7:24 PM) Alk Phos [39-136 162 unit/L unit/L] *HI* (08/21/16 7:24 PM) Bili Total [0.2-1.3 0.2 mg/dL mg/dL] (08/21/16 7:24 PM) Lipase Lvl [73-393 86 unit/L unit/L] (08/21/16 7:24 PM) 1Result Comment: The eGFR is calculated [...] oldest [Reference Range]: U Preg [Negative] Negative (08/21/16 8:42 PM) URINE AND STOOL Most recent to 1 oldest [Reference Range]: UA Turbidity [Clear] Slight Cloudy (08/21/16 8:42 PM) UA Color [Yellow] Yellow *NA* (08/21/16 8:42 PM) UA pH [5.0-8.0] 6.5 (08/21/16 8:42 PM) UA Spec Grav 1.020 [<=1.030] (08/21/16 8:42 PM) UA Glucose [Negative 250 mg/dL mg/dL] *ABN* (08/21/16 8:42 PM) UA Blood [Negative] Small *ABN* (08/21/16 8:42 PM) UA Ketones Negative [Negative] *NA* (08/21/16 8:42 PM) UA Protein [Negative >=300 mg/dL mg/dL] *ABN* (08/21/16 8:42 PM) UA Urobilinogen 0.2 EU/dL [0.1-1.0 EU/dL] (08/21/16 8:42 PM) UA Bili [Negative] Negative *NA* (08/21/16 8:42 PM) UA Leuk Est Negative [Negative] (08/21/16 8:42 PM) UA Nitrite Negative [Negative] (08/21/16 8:42 PM) UA WBC [None Seen 3-5 /HPF /HPF] (08/21/16 8:42 PM) UA RBC [0-2 /HPF] 6-10 /HPF *ABN* (08/21/16 8:42 PM) UA Bacteria [None Few /HPF Seen /HPF] (08/21/16 8:42 PM) UA Sq Epi [Few /LPF] Few /LPF (08/21/16 8:42 PM) UA Hyal Cast [0-2] 0-2 (08/21/16 8:42 PM) Micro? Performed (08/21/16 8:42 PM) HEMATOLOGY Most recent to 1 oldest [Reference Range]: WBC [3.7-10.4 K/CMM] 7.9 K/CMM (08/21/16 7:24 PM) RBC [4.20-5.40 3.46 M/CMM M/CMM] *LOW* (08/21/16 7:24 PM) Hgb [12.0-16.0 g/dL] 10.1 g/dL *LOW* (08/21/16 7:24 PM) Hct [36.0-48.0 %] 30.4 % *LOW* (08/21/16 7:24 PM) MCV [80.0-98.0 fL] 87.9 fL (08/21/16 7:24 PM) MCH [27.0-31.0 pg] 29.1 pg (08/21/16 7:24 PM) MCHC [32.0-36.0 33.1 g/dL g/dL] (08/21/16 7:24 PM) RDW [11.5-14.5 %] 14.2 % (08/21/16 7:24 PM) Platelet [133-450 320 K/CMM K/CMM] (08/21/16 7:24 PM) MPV [7.4-10.4 fL] 7.9 fL (08/21/16 7:24 PM) Segs [45.0-75.0 %] 65.1 % (08/21/16 7:24 PM) Lymphocytes 23.2 % [20.0-40.0 %] (08/21/16 7:24 PM) Monocytes [2.0-12.0 7.1 % %] (08/21/16 7:24 PM) Eosinophils [0.0-4.0 2.4 % %] (08/21/16 7:24 PM) Basophils [0.0-1.0 2.2 % %] *HI* (08/21/16 7:24 PM) Segs-Bands # 5.1 K/CMM [1.5-8.1 K/CMM] (08/21/16 7:24 PM) Lymphocytes # 1.8 K/CMM [1.0-5.5 K/CMM] (08/21/16 7:24 PM) Monocytes # [0.0-0.8 0.6 K/CMM K/CMM] (08/21/16 7:24 PM) Eosinophils # 0.2 K/CMM [0.0-0.5 K/CMM] (08/21/16 7:24 PM) Basophils # [0.0-0.2 0.2 K/CMM K/CMM] (08/21/16 7:24 PM) Immunizations Given and Recorded Vaccine Date Status Refusal Reason influenza virus vaccine, inactivated 01/08/16 G iven pneumococcal 23-valent vaccine 01/08/16 Given Procedures Procedure Date Related Diagnosis Body Site Amputation1 section 12 toes in R foot Social History Social History Type Response Substance Abuse Use: Past. Type: Cocaine. IV drug use: No. Drug use interferes with work/home: No. Ready to change: No. Alcohol Current, Previous treatment : None. Alcohol use interferes with work or home: No. Drinks more than intended: N o. Others hurt by drinking: No. Ready to change: No. Household alcohol concerns: No.1 Smoking Status Never smoker; Type: Cigaret rosie; Exposure to Tobacco Smoke None; Cigarette Smoking Last 365 Days No; Reg Smoking C essation Counseling No 1Social drinker Assessment and Plan No data available for this section
--- OUTSIDE RECORDS SUMMARY | 2019-09-10 20:14 | XMS REPORT | Summary of Care ---
Author Author [facility] Organization [facility] Address Unknown Phone Unavailable Encounter PRIMITIVO Mariano(SANGITA) [id number] Date(s): 06/27/16 - 07/07/16 [facility] [address] [employer] provided by [facility] [place] [address]- Discharge Disposition: Home or Self Care Attending Physician: Yenny Reyes DO Admitting Physician: Moriah Eric MD Vital Signs 1 2 3 Most recent to oldest [Reference Range]: 170.18 cm (06/27/16 10:28 PM) Height 112 kg (06/28/16 6:05 AM) Current Weight 98.4 DegF (07/07/16 12:29 PM) 98.5 DegF (07/07/16 7:47 AM) 98.3 DegF (07/07/16 4:37 AM) Temperature Oral [96.4-99.1 DegF] 158/83 mmHg *HI* (07/07/16 12:29 PM) 138/87 mmHg (07/07/16 7:47 AM) 150/88 mmHg *HI* (07/07/16 4:37 AM) Blood Pressure [90-140/60-90 mmHg] 18 BRMIN (07/07/16 12:29 PM) 18 BRMIN (07/07/16 7:47 AM) 18 BRMIN (07/07/16 4:37 AM) Respiratory Rate [14-20 BRMIN] 100 bpm (07/07/16 12:29 PM) 100 bpm (07/07/16 7:47 AM) 101 bpm *HI* (07/07/16 4:37 AM) Peripheral Pulse Rate [60-100 bpm] 112 kg (06/28/16 4:54 AM) 112.727 kg (06/27/16 10:28 PM) Weight 38.92 m2 (3/6/17 10:28 PM) Body Mass Index Problem List Condition [...] Status NKDA Active Medications acetaminophen 1,000 mg, 100 mL, Route: IVPB, Drug form: INJ, Q6Hnow, Dosing Weight 112.727, kg , Start date: 06/28/16 3:00:00 SUBSTATION ENGINEER, Duration: 30 day, Stop date: 07/27/16 21:00: 00 CDT Notes: Infuse over 15 minutesDo not exceed 4gm/day of acetaminophen MEDICAT ION WASTE Product Size: 1000 mgProduct Wasted: ___ mg Start Date: 06/28/16 Stop Date: 07/01/16 Status: Discontinued acetaminophen 1,000 mg, 2 tab, Route: PO, Drug form: TAB, Q6H, Dosing Weight 112, kg, Start da te: 07/01/16 18:00:00 SUBSTATION ENGINEER, Duration: 30 day, Stop date: 07/31/16 12:00:00 CDT Notes: Max acetaminophen 4000 mg/day (4 gm/day). (Same as: Tylenol Extra Streng th) Start Date: 07/01/16 Stop Date: 07/04/16 Status: Discontinued ALPRAZOLam 0.25 mg oral tablet 0.25 mg, 1 tab, Route: PO, Drug form: TAB, Q8H, Dosing Weight 112.727, kg, PRN A nxiety, Start date: 06/28/16 2:38:00 SUBSTATION ENGINEER, Duration: 30 day, Stop date: 07/28/16 2:37:00 CDT Notes: With food or milk(Same as: Xanax) Start Date: 06/28/16 Stop Date: 07/07/16 Status: Discontinued amLODIPine 10 mg, 1 tab, Route: PO, Drug form: TAB, Daily, Dosing Weight 112.727, kg, Start date: 06/28/16 9:00:00 SUBSTATION ENGINEER, Duration: 30 day, Stop date: 07/27/16 9:00:00 CDT Notes: (Same as: Norvasc) Start Date: 06/28/16 Stop Date: 07/04/16 Status: Discontinued Ancef 2 gm, Route: IVPB, ONCE, Dosing Weight 112, kg, Start date: 06/30/16 10:44:00 CS T, Duration: 1 doses or times, Stop date: 06/30/16 10:44:00 SUBSTATION ENGINEER, Surgical Prophy laxis Only; For patients < 120 kg Start Date: 06/30/16 Stop Date: 06/30/16 Status: Completed Ancef + sodium chloride 0.9% INJ 100 mL 2 gm, Route: IVPB, ABXQ8H, Dosing Weight 112, kg, Start date: 06/30/16 18:00:00 SUBSTATION ENGINEER, Duration: 1 day, Stop date: 07/01/16 14:00:00 SUBSTATION ENGINEER Notes: (Same As: Ancef, Kefzol) MEDICATION WASTE Product Size: 1000 mgP roduct Wasted: ___ mg Start Date: 06/30/16 Stop Date: 07/01/16 Status: Completed ANES flumazenil 0.2 mg, 2 mL, Route: IVP, Drug form: INJ, PRN, Dosing Weight 112, kg, PRN Benzod iazepine Reversal, Initial dose, Start date: 06/30/16 12:51:00 SUBSTATION ENGINEER, Stop date: 0 07/01/16 0:00:00 SUBSTATION ENGINEER Notes: (Same as: Romazicon) Start Date: 06/30/16 Stop Date: 06/30/16 Status: Discontinued ANES HYDROmorphone 0.5 mg, 0.25 mL, Route: IVP, Drug form: INJ, Q5Min, Dosing Weight 112, kg, PRN P ain Score 7-10, Start date: 06/30/16 12:51:00 SUBSTATION ENGINEER, Duration: 4 doses or times, S top date: 07/01/16 0:00:00 SUBSTATION ENGINEER Notes: Same as: Dilaudid Start Date: 06/30/16 Stop Date: 06/30/16 Status: Completed ANES naloxone 0.4 mg, 1 mL, Route: IVP, Drug form: INJ, Q2MIN, Dosing Weight 112, kg, PRN Narc otic Reversal, Start date: 06/30/16 12:51:00 SUBSTATION ENGINEER, Duration: 8 doses or times, St op date: 07/01/16 0:00:00 SUBSTATION ENGINEER Notes: Same as Narcan Start Date: 06/30/16 Stop Date: 06/30/16 Status: Discontinued ANES ondansetron 4 mg, 2 mL, Route: IVP, Drug form: INJ, ONCE, Dosing Weight 112, kg, PRN Nausea & Vomiting, Start date: 06/30/16 12:51:00 SUBSTATION ENGINEER Notes: (Same as: Luis) MEDICATION WASTE Product Size: 4 mgProduct Was savana: ___ mg Start Date: 06/30/16 Stop Date: 06/30/16 Status: Discontinued ANES oxyCODONE 5 mg, 5 mL, Route: PO, Drug form: LIQ, Q4H, Dosing Weight 112, kg, PRN Pain Scor e 7-10, Start date: 06/30/16 12:51:00 SUBSTATION ENGINEER, Stop date: 07/01/16 0:00:00 SUBSTATION ENGINEER Notes: (Same as: 'Roxicodone) Start Date: 06/30/16 Stop Date: 06/30/16 Status: Discontinued aspirin 81 mg tablet, enteric coated 81 mg, 1 tab, Route: PO, Drug form: ECTAB, Daily, Dosing Weight 112.727, kg, Sta rt date: 06/28/16 9:00:00 SUBSTATION ENGINEER, Duration: 30 day, Stop date: 07/27/16 9:00:00 CDT Notes: Do not crush or chew.(Same As: Ecotrin) Start Date: 06/28/16 Stop Date: 07/07/16 Status: Discontinued atorvastatin 40 mg, 1 tab, Route: PO, Drug form: TAB, Bedtime, Dosing Weight 112.727, kg, Sta rt date: 06/28/16 21:00:00 SUBSTATION ENGINEER, Duration: 30 day, Stop date: 07/27/16 21:00:00 C DT Notes: (Same as: Lipitor) Start Date: 06/28/16 Stop Date: 07/07/16 Status: Discontinued calcium gluconate 1 gm, Route: IVPB, ONCE, Dosing Weight 112, kg, Priority: STAT, Start date: 06/22 17:20:00 SUBSTATION ENGINEER, Stop date: 07/01/16 17:20:00 SUBSTATION ENGINEER Start Date: 07/01/16 Stop Date: 07/01/16 Status: Discontinued carvedilol 25 mg, 1 tab, Route: PO, Drug form: TAB, Q12H, Dosing Weight 112.727, kg, Start date: 06/28/16 9:00:00 SUBSTATION ENGINEER, Duration: 30 day, Stop date: 07/27/16 21:00:00 CDT Notes: Give with food. (Same As: Coreg) Start Date: 06/28/16 Stop Date: 07/07/16 Status: Discontinued Dextrose 50% Syringe 50 mL, Route: IVP, Dosing Weight 112, kg, ONCE, STAT, Start date: 07/01/16 17:20 :00 SUBSTATION ENGINEER, Stop date: 07/01/16 17:20:00 SUBSTATION ENGINEER Start Date: 07/01/16 Stop Date: 07/01/16 Status: Discontinued Dextrose 50% Syringe 25 gm, 50 mL, Route: IVP, Drug Form: INJ, Dosing Weight 112.727, kg, PRN, PRN Bl ood Glucose Results, Start date: 06/28/16 2:39:00 SUBSTATION ENGINEER, Duration: 30 day, Stop da te: 07/28/16 3:38:00 CDT Start Date: 06/28/16 Stop Date: 07/07/16 Status: Discontinued Dextrose 50% Syringe 12.5 gm, 25 mL, Route: IVP, Drug Form: INJ, Dosing Weight 112.727, kg, PRN, PRN Blood Glucose Results, Start date: 06/28/16 2:39:00 SUBSTATION ENGINEER, Duration: 30 day, Stop date: 07/28/16 3:38:00 CDT Start Date: 06/28/16 Stop Date: 07/07/16 Status: Discontinued Dilaudid 0.5 mg, 0.25 mL, Route: IV, Drug form: INJ, Q3H, Dosing Weight 112, kg, PRN Pain Score 7-10, Start date: 07/02/16 13:09:00 SUBSTATION ENGINEER, Duration: 30 day, Stop date: 02/07 13:08:00 CDT Notes: Same as: Dilaudid Start Date: 07/02/16 Stop Date: 07/03/16 Status: Discontinued Dilaudid 0.5 mg, 0.25 mL, Route: IV, Drug form: INJ, ONCE, Dosing Weight 112, kg, Priorit y: NOW, Start date: 07/05/16 7:44:00 CDT, Stop date: 07/05/16 7:44:00 CDT Notes: Same as: Dilaudid Start Date: 07/05/16 Stop Date: 07/05/16 Status: Completed Dilaudid 0.5 mg, 0.25 mL, Route: IVP, Drug form: INJ, ONCE, Dosing Weight 112, kg, Priori ty: STAT, Start date: 07/02/16 6:59:00 SUBSTATION ENGINEER, Stop date: 07/02/16 6:59:00 SUBSTATION ENGINEER Notes: Same as: Dilaudid Start Date: 07/02/16 Stop Date: 07/02/16 Status: Completed Dilaudid 0.5 mg, 0.25 mL, Route: IVP, Drug form: INJ, ONCE, Dosing Weight 112, kg, PRN Pa in Score 7-10, Start date: 07/02/16 1:00:00 SUBSTATION ENGINEER Notes: Same as: Dilaudid Start Date: 07/02/16 Stop Date: 07/02/16 Status: Completed Dilaudid 0.5 mg, 0.25 mL, Route: IV, Drug form: INJ, Q8H, Dosing Weight 112, kg, PRN Pain Score 7-10, Start date: 07/03/16 10:36:00 CDT, Duration: 30 day, Stop date: 03/10 10:35:00 CDT Notes: Same as: Dilaudid Start Date: 07/03/16 Stop Date: 07/04/16 Status: Discontinued docusate 100 mg, 1 cap, Route: PO, Drug form: CAP, BID, Dosing Weight 112.727, kg, Start date: 06/28/16 9:00:00 SUBSTATION ENGINEER, Duration: 30 day, Stop date: 07/27/16 17:00:00 CDT Notes: (Same as: Colace) (Do Not Crush) Start Date: 06/28/16 Stop Date: 07/07/16 Status: Discontinued dronabinol 5 mg, 1 cap, Route: PO, Drug form: CAP, [id number], Dosing Weight 112, kg, Start da te: 07/04/16 10:00:00 CDT, Duration: 30 day, Stop date: 08/02/16 22:00:00 CDT Notes: (Same as: Marinol) Non-Formulary Drug. Start Date: 07/04/16 Stop Date: 07/07/16 Status: Discontinued dronabinol 5 mg oral capsule 5 mg = 1 cap, PO, [id number], X 7 day, # 14 cap, 0 Refill(s) Start Date: 07/07/16 Stop Date: 07/14/16 Status: Ordered Dulcolax Laxative 10 mg, 1 supp, Route: OK, Drug form: SUPP, ONCE, Dosing Weight 112, kg, Start da te: 07/03/16 1:08:00 SUBSTATION ENGINEER, Stop date: 07/03/16 1:08:00 SUBSTATION ENGINEER Notes: (Same As: Dulcolax, Bisco-Lax) Start Date: 07/03/16 Stop Date: 07/03/16 Status: Completed Dulcolax Laxative 10 mg, 1 supp, Route: OK, Drug form: SUPP, Daily, Dosing Weight 112, kg, PRN Con stipation, Start date: 07/03/16 1:08:00 SUBSTATION ENGINEER, Duration: 30 day, Stop date: 1:07:00 CDT Notes: (Same As: Dulcolax, Bisco-Lax) Start Date: 07/03/16 Stop Date: 07/07/16 Status: Discontinued gabapentin 300 mg oral capsule 300 mg, 1 cap, Route: PO, Drug form: CAP, Q12H, Dosing Weight 112.727, kg, Start date: 06/28/16 9:00:00 SUBSTATION ENGINEER, Duration: 30 day, Stop date: 07/27/16 21:00:00 CDT Notes: (Same as: Neurontin) Start Date: 06/28/16 Stop Date: 07/07/16 Status: Discontinued glucagon 1 mg, Route: IM, Drug form: PDR/INJ, PRN, Dosing Weight 112.727, kg, PRN Blood G lucose Results, Start date: 06/28/16 2:39:00 SUBSTATION ENGINEER, Duration: 30 day, Stop date: 0 07/28/16 3:38:00 CDT Start Date: 06/28/16 Stop Date: 07/07/16 Status: Discontinued heparin 7,500 unit, 1.5 mL, Route: SUB-Q, Drug form: INJ, Q8H, Dosing Weight 112.727, kg , Start date: 06/28/16 8:00:00 SUBSTATION ENGINEER, Duration: 30 day, Stop date: 07/28/16 0:00:0 0 CDT Notes: porcine heparin Start Date: 06/28/16 Stop Date: 07/07/16 Status: Discontinued hydrALAZINE 5 mg, 0.25 mL, Route: IV, Drug form: INJ, Q4H, Dosing Weight 112, kg, PRN Other -See Comment, Start date: 07/04/16 4:46:00 CDT, Duration: 30 day, Stop date: 04/09 4:45:00 CDT, Systolic Blood pressure greater than 160 mmHg Notes: (Same as: Apresoline)Push over 5 minutes Start Date: 07/04/16 Stop Date: 07/07/16 Status: Discontinued hydrALAZINE 10 mg, Route: IVP, ONCE, Dosing Weight 112.727, kg, Start date: 06/28/16 1:39:00 SUBSTATION ENGINEER, Stop date: 06/28/16 1:39:00 SUBSTATION ENGINEER Start Date: 06/28/16 Stop Date: 06/28/16 Status: Completed hydrALAZINE 20 mg, Route: IVP, ONCE, Dosing Weight 112.727, kg, Start date: 06/28/16 1:37:00 SUBSTATION ENGINEER, Stop date: 06/28/16 1:37:00 SUBSTATION ENGINEER Start Date: 06/28/16 Stop Date: 06/28/16 Status: Completed hydrALAZINE 100 mg oral tablet 100 mg, 2 tab, Route: PO, Drug form: TAB, TID, Dosing Weight 112.727, kg, Start date: 06/28/16 9:00:00 SUBSTATION ENGINEER, Duration: 30 day, Stop date: 07/27/16 17:00:00 CDT Notes: (Same as: Apresoline) May interfere w/enteral feedings Take With Food Start Date: 06/28/16 Stop Date: 07/07/16 Status: Discontinued hydromorphone 1 mg, Route: IVP, ONCE, Dosing Weight 112.727, kg, Priority: STAT, Start date: 0 06/27/16 23:33:00 SUBSTATION ENGINEER, Stop date: 06/27/16 23:33:00 SUBSTATION ENGINEER Start Date: 06/27/16 Stop Date: 06/27/16 Status: Discontinued insulin aspart 5 unit, 0.05 mL, Route: SUB-Q, Drug form: SOLN, TID-Before Meals, Dosing Weight 112.727, kg, PRN Blood Glucose Results, Start date: 06/28/16 2:39:00 SUBSTATION ENGINEER, Durati on: 30 day, Stop date: 07/28/16 2:38:00 CDT Notes: Roll in palms of hands gently; Do not shake vigorously. (Same as: Jarrod Angulo)"single patient use only"WASTE: F/P - Black; E - Municipal Trash Bin Stable f or 28 days at room temperature.Expires in days from Date Start Date: 06/28/16 Stop Date: 07/07/16 Status: Discontinued insulin aspart 1 unit, 0.01 mL, Route: SUB-Q, Drug form: SOLN, TID-Before Meals, Dosing Weight 112.727, kg, PRN Blood Glucose Results, Start date: 06/28/16 2:39:00 SUBSTATION ENGINEER, Durati on: 30 day, Stop date: 07/28/16 2:38:00 CDT Notes: Roll in palms of hands gently; Do not shake vigorously. (Same as: Jarrod Angulo)"single patient use only"WASTE: F/P - Black; E - Municipal Trash Bin Stable f or 28 days at room temperature.Expires in days from Date Start Date: 06/28/16 Stop Date: 07/07/16 Status: Discontinued insulin aspart 2 unit, 0.02 mL, Route: SUB-Q, Drug form: SOLN, TID-Before Meals, Dosing Weight 112.727, kg, PRN Blood Glucose Results, Start date: 06/28/16 2:39:00 SUBSTATION ENGINEER, Durati on: 30 day, Stop date: 07/28/16 2:38:00 CDT Notes: Roll in palms of hands gently; Do not shake vigorously. (Same as: Jarrod Angulo)"single patient use only"WASTE: F/P - Black; E - Municipal Trash Bin Stable f or 28 days at room temperature.Expires in days from Date Start Date: 06/28/16 Stop Date: 07/07/16 Status: Discontinued insulin aspart 3 unit, 0.03 mL, Route: SUB-Q, Drug form: SOLN, TID-Before Meals, Dosing Weight 112.727, kg, PRN Blood Glucose Results, Start date: 06/28/16 2:39:00 SUBSTATION ENGINEER, Durati on: 30 day, Stop date: 07/28/16 2:38:00 CDT Notes: Roll in palms of hands gently; Do not shake vigorously. (Same as: Jarrod Angulo)"single patient use only"WASTE: F/P - Black; E - Municipal Trash Bin Stable f or 28 days at room temperature.Expires in days from Date Start Date: 06/28/16 Stop Date: 07/07/16 Status: Discontinued insulin aspart 4 unit, 0.04 mL, Route: SUB-Q, Drug form: SOLN, TID-Before Meals, Dosing Weight 112.727, kg, PRN Blood Glucose Results, Start date: 06/28/16 2:39:00 SUBSTATION ENGINEER, Durati on: 30 day, Stop date: 07/28/16 2:38:00 CDT Notes: Roll in palms of hands gently; Do not shake vigorously. (Same as: Jarrod Angulo)"single patient use only"WASTE: F/P - Black; E - Municipal Trash Bin Stable f or 28 days at room temperature.Expires in days from Date Start Date: 06/28/16 Stop Date: 07/07/16 Status: Discontinued Insulin regular 10 unit, Route: IVP, ONCE, Dosing Weight 112, kg, Priority: STAT, Start date: 17:20:00 SUBSTATION ENGINEER, Stop date: 07/01/16 17:20:00 SUBSTATION ENGINEER Start Date: 07/01/16 Stop Date: 07/01/16 Status: Discontinued Kayexalate 15 gm, 60 mL, Route: PO, Drug form: SUSP, ONCE, Dosing Weight 112, kg, Start harish e: 07/04/16 21:55:00 CDT, Stop date: 07/04/16 21:55:00 CDT Notes: (sodium polystyrene sulfonate 15 gm/60 ml LUCÍA) Shake well before use. (Same as: Kayexalate, SPS) Start Date: 07/04/16 Stop Date: 07/04/16 Status: Completed Kayexalate 30 gm, 120 mL, Route: PO, Drug form: SUSP, ONCE, Dosing Weight 112, kg, Start da te: 07/02/16 19:09:00 SUBSTATION ENGINEER, Stop date: 07/02/16 19:09:00 SUBSTATION ENGINEER Notes: (sodium polystyrene sulfonate 15 gm/60 ml LUCÍA) Shake well before use. (Same as: Kayexalate, SPS) Start Date: 07/02/16 Stop Date: 07/02/16 Status: Completed Kayexalate 15 gm, 60 mL, Route: PO, Drug form: SUSP, BID, Dosing Weight 112, kg, Start date : 07/05/16 9:00:00 CDT, Duration: 30 day, Stop date: 08/03/16 17:00:00 CDT Notes: (sodium polystyrene sulfonate 15 gm/60 ml LUCÍA) Shake well before use. (Same as: Kayexalate, SPS) Start Date: 07/05/16 Stop Date: 07/06/16 Status: Discontinued Kayexalate 30 gm, 120 mL, Route: PO, Drug form: SUSP, ONCE, Dosing Weight 112, kg, Start da te: 06/28/16 6:08:00 SUBSTATION ENGINEER, Stop date: 06/28/16 6:08:00 SUBSTATION ENGINEER Notes: (sodium polystyrene sulfonate 15 gm/60 ml LUCÍA) Shake well before use. (Same as: Kayexalate, SPS) Start Date: 06/28/16 Stop Date: 06/28/16 Status: Completed Kayexalate 30 gm, 120 mL, Route: PO, Drug form: SUSP, ONCE, Dosing Weight 112, kg, Start da te: 07/01/16 17:18:00 SUBSTATION ENGINEER, Stop date: 07/01/16 17:18:00 SUBSTATION ENGINEER Notes: (sodium polystyrene sulfonate 7.5 gm/30 ml LUCÍA) (Same as: Kayexalate, SPS ) Shake well before use Start Date: 07/01/16 Stop Date: 07/01/16 Status: Completed Kayexalate 15 gm, 60 mL, Route: PO, Drug form: SUSP, TID, Dosing Weight 112, kg, Start date : 07/06/16 9:00:00 CDT, Duration: 2 day, Stop date: 07/07/16 17:00:00 CDT Notes: (sodium polystyrene sulfonate 15 gm/60 ml LUCÍA) Shake well before use. (Same as: Kayexalate, SPS) Start Date: 07/06/16 Stop Date: 07/07/16 Status: Discontinued Lasix 20 mg, 2 mL, Route: IVP, Drug form: INJ, ONCE, Dosing Weight 112, kg, Start date : 07/03/16 14:14:00 CDT, Stop date: 07/03/16 14:14:00 CDT Notes: (Same as: Lasix) Start Date: 07/03/16 Stop Date: 07/03/16 Status: Completed Lasix 20 mg oral tablet 20 mg, 1 tab, Route: PO, Drug form: TAB, BID, Dosing Weight 112.727, kg, Start d ate: 06/28/16 9:00:00 SUBSTATION ENGINEER, Duration: 30 day, Stop date: 07/27/16 17:00:00 CDT Notes: (Same as: Lasix) May cause GI upset. Give with food or milk. Start Date: 06/28/16 Stop Date: 07/07/16 Status: Discontinued Levemir 30 unit, 0.3 mL, Route: SUB-Q, Drug form: SOLN, Daily, Dosing Weight 112.727, kg , Start date: 06/28/16 9:00:00 SUBSTATION ENGINEER, Duration: 30 day, Stop date: 07/27/16 9:00:0 0 CDT Notes: Same as LevemirDo not hold insulin without contacting prescriberWASTE: F/ P - Black; E - Municipal Trash Bin "single patient use only" Start Date: 06/28/16 Stop Date: 07/07/16 Status: Discontinued Lidoderm 5% topical film (patch) 1 patch, TOP, Q24H, # 14 patch, 0 Refill(s), Pharmacy: [id number] Start Date: 07/07/16 Stop Date: 07/21/16 Status: Ordered Lidoderm 5% topical film (patch) 1 patch, Route: TOP, Q24H, Drug form: FILM, Start date: 06/28/16 3:00:00 SUBSTATION ENGINEER, Du ration: 30 day, Stop date: 07/27/16 9:00:00 CDT Notes: Apply only once for up to 12 hours in [id number] period (12 hours on and 12 hours off).(Same as: Lidoderm)"Remove old patch before application of new patch" Start Date: 06/28/16 Stop Date: 07/07/16 Status: Discontinued methadone 5 mg, 1 tab, Route: PO, Drug form: TAB, Q12H, Dosing Weight 112, kg, Start date: 07/06/16 21:00:00 CDT, Duration: 30 day, Stop date: 08/05/16 9:00:00 CDT Notes: (Same as: Dolophine) Start Date: 07/06/16 Stop Date: 07/07/16 Status: Discontinued methadone 5 mg, 1 tab, Route: PO, Drug form: TAB, Q8H, Dosing Weight 112, kg, Start date: 07/02/16 16:00:00 SUBSTATION ENGINEER, Duration: 30 day, Stop date: 08/01/16 8:00:00 CDT Notes: (Same as: Dolophine) Start Date: 07/02/16 Stop Date: 07/06/16 Status: Discontinued methocarbamol 1,000 mg, 2 tab, Route: PO, Drug form: TAB, TID, Dosing Weight 112.727, kg, Star t date: 06/28/16 9:00:00 SUBSTATION ENGINEER, Stop date: 07/27/16 17:00:00 CDT Notes: (Same as:Robaxin) Start Date: 06/28/16 Stop Date: 07/07/16 Status: Discontinued methocarbamol 500 mg oral tablet 1,000 mg = 2 tab, PO, TID, PRN Muscle Spasms, X 5 day, # 30 tab, 0 Refill(s), [id number] Start Date: 07/07/16 Stop Date: 07/12/16 Status: Ordered morphine Sulfate 10 mg, 1 mL, Route: IVP, Drug form: INJ, ONCE, Dosing Weight 112.727, kg, Priori ty: STAT, Start date: 06/27/16 23:35:00 SUBSTATION ENGINEER, Stop date: 06/27/16 23:35:00 SUBSTATION ENGINEER Notes: (Same as:MORPhine Sulfate) Start Date: 06/27/16 Stop Date: 06/28/16 Status: Completed morphine Sulfate 2 mg, 1 mL, Route: IVP, Drug form: INJ, Q4H, Dosing Weight 112.727, kg, PRN Pain Score 7-10, Start date: 06/28/16 2:37:00 SUBSTATION ENGINEER, Duration: 30 day, Stop date: 10/08 2:36:00 CDT Notes: (Same as:MORPhine Sulfate) Start Date: 06/28/16 Stop Date: 07/01/16 Status: Discontinued Nifedical XL 60 mg, 1 tab, Route: PO, Drug form: ERTAB, Daily, Dosing Weight 112, kg, Start d ate: 07/07/16 9:00:00 CDT, Duration: 30 day, Stop date: 08/05/16 9:00:00 CDT Notes: (Same as: Adalat CC, Procardia XL) Give on empty stomach. Take 1 hour be fore or 2 hours after meal; "Avoid grapefruit and grapefruit juice". Do not cru sh Start Date: 07/07/16 Stop Date: 07/07/16 Status: Discontinued Nifedical XL 30 mg, 1 tab, Route: PO, Drug form: ERTAB, Daily, Dosing Weight 112, kg, Start d ate: 07/05/16 9:00:00 CDT, Duration: 30 day, Stop date: 08/03/16 9:00:00 CDT Notes: (Same as: Adalat CC, Procardia XL) Give on empty stomach. Take 1 hour be fore or 2 hours after meal; "Avoid grapefruit and grapefruit juice". Do not cru sh Start Date: 07/05/16 Stop Date: 07/06/16 Status: Discontinued NIFEdipine 60 mg oral tablet, extended release 60 mg = 1 tab, PO, Daily, # 30 tab, 0 Refill(s), Pharmacy: [facility] [id number] Start Date: 07/07/16 Stop Date: 08/06/16 Status: Ordered Floyd 10/325 oral tablet 2 tab, Route: PO, Drug Form: TAB, Dosing Weight 112, kg, Q4H, PRN Pain Score 7-1 0, Start date: 07/04/16 9:53:00 CDT, Duration: 30 day, Stop date: 08/03/16 9:52: 00 CDT Notes: Do not exceed 4gm/day of acetaminophen. (Same as: Floyd 325/10) Start Date: 07/04/16 Stop Date: 07/07/16 Status: Discontinued Floyd 10/325 oral tablet 1 tab, Route: PO, Drug Form: TAB, Dosing Weight 112, kg, Q4H, PRN Headache 4-6, Start date: 07/04/16 9:53:00 CDT, Duration: 30 day, Stop date: 08/03/16 9:52:00 CDT Notes: Do not exceed 4gm/day of acetaminophen. (Same as: Floyd 325/10) Start Date: 07/04/16 Stop Date: 07/07/16 Status: Discontinued Floyd 10/325 oral tablet 2 tab, PO, Q6H, PRN Pain Score 7-10, X 3 day, # 24 tab, 0 Refill(s) Start Date: 07/07/16 Stop Date: 07/10/16 Status: Ordered ondansetron 4 mg, 2 mL, Route: IVP, Drug form: INJ, ONCE, Dosing Weight 112.727, kg, Priorit y: STAT, Start date: 06/27/16 23:33:00 SUBSTATION ENGINEER, Stop date: 06/27/16 23:33:00 SUBSTATION ENGINEER Notes: (Same as: Luis) MEDICATION WASTE Product Size: 4 mgProduct Was savana: ___ mg Start Date: 06/27/16 Stop Date: 06/28/16 Status: Completed ondansetron 4 mg, 2 mL, Route: IVP, Drug form: INJ, Q8H, Dosing Weight 112.727, kg, PRN Naus ea & Vomiting, Start date: 06/28/16 2:37:00 SUBSTATION ENGINEER, Duration: 30 day, Stop date: 07/28/16 2:36:00 CDT Notes: (Same as: Luis) MEDICATION WASTE Product Size: 4 mgProduct Was savana: ___ mg Start Date: 06/28/16 Stop Date: 07/07/16 Status: Discontinued oxyCODONE 5 mg immediate release 5 mg, 1 tab, Route: PO, Drug form: TAB, Q4H, Dosing Weight 112.727, kg, PRN Pain Score 4-6, Start date: 06/28/16 2:37:00 SUBSTATION ENGINEER, Duration: 30 day, Stop date: 07/28 2:36:00 CDT Notes: (Same as: Roxicodone) Start Date: 06/28/16 Stop Date: 07/03/16 Status: Discontinued oxyCODONE 5 mg immediate release 10 mg, 2 tab, Route: PO, Drug form: TAB, Q4H, Dosing Weight 112.727, kg, PRN Katherine n Score 7-10, Start date: 06/28/16 2:37:00 [employer]INE[employer], Duration: 30 day, Stop date: 10/08 2:36:00 CDT Notes: (Same as: Roxicodone) Start Date: 06/28/16 Stop Date: 07/03/16 Status: Discontinued oxyCODONE 5 mg immediate release 10 mg, 2 tab, Route: PO, Drug form: TAB, Q4H, Dosing Weight 112.727, kg, PRN Katherine n Score 4-6, Start date: 07/03/16 10:36:00 CDT, Duration: 30 day, Stop date: 03/10 10:35:00 CDT Notes: (Same as: Roxicodone) Start Date: 07/03/16 Stop Date: 07/04/16 Status: Discontinued oxyCODONE 5 mg immediate release 15 mg, 3 tab, Route: PO, Drug form: TAB, Q4H, Dosing Weight 112.727, kg, PRN Katherine n Score 7-10, Start date: 07/03/16 10:36:00 CDT, Duration: 30 day, Stop date: 10:35:00 CDT Notes: (Same as: Roxicodone) Start Date: 07/03/16 Stop Date: 07/04/16 Status: Discontinued Phenergan 12.5 mg, 0.5 mL, Route: IVPB, Drug form: INJ, Q4H, Dosing Weight 112, kg, PRN Na usea & Vomiting, Start date: 07/05/16 13:55:00 CDT, Duration: 30 day, Stop date: 08/04/16 13:54:00 CDT Notes: Do not give IV push. (Same as: Phenergan) Start Date: 07/05/16 Stop Date: 07/07/16 Status: Discontinued PHOS-NaK oral powder for reconstitution 1 pkt, Route: PO, Dosing Weight 112, kg, QID, Start date: 07/03/16 17:00:00 CDT, Duration: 30 day, Stop date: 08/02/16 13:00:00 CDT Start Date: 07/03/16 Stop Date: 07/03/16 Status: Canceled remove patch 1 patch, Route: TOP, Bedtime, Drug form: ERFILM, Start date: 06/28/16 17:00:[address], Duration: 30 day, Stop date: 07/27/16 21:00:00 CDT Notes: Remove patch 12 hours after application each day. Start Date: 06/28/16 Stop Date: 07/07/16 Status: Discontinued Renvela 1.6 gm, 2 tab, Route: PO, Drug form: TAB, TID, Dosing Weight 112, kg, Start date : 07/05/16 9:00:00 CDT, Duration: 30 day, Stop date: 08/03/16 17:00:00 CDT, Notes: Same as: Renvela Start Date: 07/05/16 Stop Date: 07/05/16 Status: Discontinued Renvela 0.8 gm, 1 tab, Route: PO, Drug form: TAB, Daily, Dosing Weight 112, kg, Start da te: 07/06/16 9:00:00 CDT, Duration: 30 day, Stop date: 08/04/16 9:00:00 CDT, Notes: Same as: Renvela Start Date: 07/06/16 Stop Date: 07/07/16 Status: Discontinued ropivacaine 0.2% 200ml CADD 200 mL Route: NERVE BLOCK, Continuous Rate: 10, ml/hr, Dosing Site: Sciatic popliteal S winifred: Right, ORNAMENTAL IRON WORKER APPRENTICE dose 3 mL, ORNAMENTAL IRON WORKER APPRENTICE dose lockout: 30 minutes, 1 Hour limit: 16 mL, 20 0, mL, Start date: 06/30/16 14:15:00 SUBSTATION ENGINEER, Drug Form: INJ, Total volume: 200, mL, kg, Stop d... Notes: Same as: Naropin Start Date: 06/30/16 Stop Date: 07/03/16 Status: Discontinued senna 17.2 mg, 2 tab, Route: PO, Drug Form: TAB, Dosing Weight 112.727, kg, Bedtime, S tart date: 06/28/16 21:00:00 SUBSTATION ENGINEER, Duration: 30 day, Stop date: 07/27/16 21:00:00 CDT Notes: (Same as: Senokot) Start Date: 06/28/16 Stop Date: 07/07/16 Status: Discontinued sevelamer carbonate 800 mg oral tablet 0.8 gm = 1 tab, PO, Daily, , # 30 tab, 0 Refill(s), [facility] [id number] Start Date: 07/07/16 Stop Date: 08/06/16 Status: Ordered sodium bicarbonate 1,950 mg, 3 tab, Route: PO, Drug form: TAB, BID, Dosing Weight 112, kg, Start da te: 07/05/16 9:00:00 CDT, Duration: 30 day, Stop date: 08/03/16 17:00:00 CDT Notes: "Dissolve tablet in a glass of water prior to oral administration. STOMA CH WARNING: To avoid serious injury, do not take until tablet is completely diss olved. It is very important not to take this product when overly full from food or drink." Start Date: 07/05/16 Stop Date: 07/07/16 Status: Discontinued sodium bicarbonate 650 mg, 2 tab, Route: PO, Drug form: TAB, QID, Dosing Weight 112, kg, Start date : 07/01/16 21:00:00 SUBSTATION ENGINEER, Duration: 30 day, Stop date: 07/31/16 17:00:00 CDT Notes: "Dissolve tablet in a glass of water prior to oral administration. STOMA CH WARNING: To avoid serious injury, do not take until tablet is completely diss olved. It is very important not to take this product when overly full from food or drink." Start Date: 07/01/16 Stop Date: 07/04/16 Status: Discontinued sodium bicarbonate 650 mg oral tablet 1,950 mg = 3 tab, PO, BID, X 10 day, # 60 tab, 0 Refill(s), [facility] [id number] Start Date: 07/07/16 Stop Date: 07/17/16 Status: Ordered Sodium Chloride 0.9% (Bolus) IV 1,000 mL, 1000 ml/hr, Infuse Over: 1 hr, Route: IV, 1,000, Drug form: INJ, ONCE, Priority: STAT, Dosing Weight 112.727 kg, Start date: 06/28/16 2:00:00 SUBSTATION ENGINEER, Dur ation: 1 doses or times, Stop date: 06/28/16 2:00:00 SUBSTATION ENGINEER Start Date: 06/28/16 Stop Date: 06/28/16 Status: Completed Sodium Chloride 0.9% (Bolus) IV 1,000 mL, 1000 ml/hr, Infuse Over: 1 hr, Route: IV, 1,000, Drug form: INJ, ONCE, Priority: STAT, Dosing Weight 112.727 kg, Start date: 06/27/16 23:33:00 SUBSTATION ENGINEER, Du ration: 1 doses or times, Stop date: 06/27/16 23:33:00 SUBSTATION ENGINEER Start Date: 06/27/16 Stop Date: 06/28/16 Status: Completed sodium chloride 0.9% 1000 ml INJ 1,000 mL 1,000 mL, Rate: 75 ml/hr, Infuse over: 13.3 hr, Route: IV, Dosing Weight 112 kg, Total Volume: 1,000, Start date: 06/28/16 6:08:00 SUBSTATION ENGINEER, Duration: 30 day, Stop d ate: 07/28/16 6:07:00 CDT Start Date: 06/28/16 Stop Date: 07/01/16 Status: Discontinued sodium chloride 0.9% 1000 ml INJ 1,000 mL 1,000 mL, Rate: 125 ml/hr, Infuse over: 8 hr, Route: IV, Dosing Weight 112 kg, T otal Volume: 1,000, Start date: 07/01/16 16:43:00 SUBSTATION ENGINEER, Stop date: 07/03/16 16:00 :00 CDT Start Date: 07/01/16 Stop Date: 07/03/16 Status: Completed sodium chloride 0.9% INJ 250 mL 250 mL, Rate: calliope player for use with blood product administration, Dosing Weight 1 12, kg, Route: IV, Total Volume: 250, Start Date: 07/02/16 18:38:00 SUBSTATION ENGINEER, Duratio n: 30 day, Stop date: 08/01/16 18:37:00 CDT, Replace Every: 24 hr Start Date: 07/02/16 Stop Date: 07/07/16 Status: Discontinued sodium polystyrene sulfonate 15 g/60 mL oral and rectal suspension 15 gm = 60 mL, PO, TID, X 14 day, # 2520 mL, 0 Refill(s), Pharmacy: [facility] [id number] Start Date: 07/07/16 Stop Date: 07/21/16 Status: Ordered tramadol 50 mg, 1 tab, Route: PO, Drug form: TAB, Q6Hnow, Dosing Weight 112.727, kg, Star t date: 06/28/16 3:00:00 SUBSTATION ENGINEER, Duration: 30 day, Stop date: 07/27/16 21:00:00 CDT Notes: Not to exceed 400mg/day. (Same As: Ultram) Start Date: 06/28/16 Stop Date: 07/07/16 Status: Discontinued tramadol 50 mg oral tablet 50 mg = 1 tab, PO, Q6Hnow, PRN Pain Score 1-3, X 5 day, # 20 tab, 0 Refill(s) Start Date: 07/07/16 Stop Date: 07/12/16 Status: Ordered Results BLOOD BANK RESULTS 1 2 3 Most recent to oldest [Reference Range]: A POS *Unknown* (07/02/16 9:24 PM) A POS *Unknown* (06/28/16 12:34 AM) ABO/Rh Negative (07/02/16 9:24 PM) Negative (06/28/16 12:34 AM) Antibody Scrn Product available (07/02/16 6:38 PM) Product available (06/30/16 12:01 AM) RBC product ELECTROLYTES 1 2 3 Most recent to oldest [Reference Range]: 142 mEq/L (07/07/16 6:02 AM) 144 mEq/L (07/06/16 1:59 PM) 138 mEq/L (07/05/16 12:09 AM) Sodium Lvl [135-145 mEq/L] 4.8 mEq/L (07/07/16 6:02 AM) 4.8 mEq/L (07/06/16 1:59 PM) 5.5 mEq/L *HI* (07/05/16 12:09 AM) Potassium Lvl [3.5-5.1 mEq/L] 109 mEq/L (07/07/16 6:02 AM) 109 mEq/L (07/06/16 1:59 PM) 108 mEq/L (07/05/16 12:09 AM) Chloride Lvl [95-109 mEq/L] 27 mEq/L (07/07/16 6:02 AM) 27 mEq/L (07/06/16 1:59 PM) 20 mEq/L *LOW* (07/05/16 12:09 AM) CO2 [24-32 mEq/L] 10.8 mEq/L (07/07/16 6:02 AM) 12.8 mEq/L (07/06/16 1:59 PM) 15.5 mEq/L (07/05/16 12:09 AM) AGAP [10.0-20.0 mEq/L] CHEM PANEL 1 2 3 Most recent to oldest [Reference Range]: 2.48 mg/dL *HI* (07/07/16 6:02 AM) 2.45 mg/dL *HI* (07/06/16 1:59 PM) 2.64 mg/dL *HI* (07/05/16 12:09 AM) Creatinine Lvl [0.50-1.40 mg/dL] 27 mL/min/1.73m2 1 *NA* (07/07/16 6:02 AM) 27 mL/min/1.73m2 2 *NA* (07/06/16 1:59 PM) 25 mL/min/1.73m2 3 *NA* (07/05/16 12:09 AM) eGFR 22 mg/dL (07/07/16 6:02 AM) 21 mg/dL (07/06/16 1:59 PM) 25 mg/dL *HI* (07/05/16 12:09 AM) BUN [7-22 mg/dL] 10 (07/03/16 12:51 PM) B/C Ratio [6-25] 97 mg/dL (07/07/16 6:02 AM) 66 mg/dL *LOW* (07/06/16 1:59 PM) 84 mg/dL (07/05/16 12:09 AM) Glucose Lvl [70-99 mg/dL] 6.2 g/dL *LOW* (07/03/16 12:51 PM) Total Protein [6.4-8.4 g/dL] 1.4 g/dL *LOW* (07/03/16 12:51 PM) Albumin Lvl [3.5-5.0 g/dL] 4.8 g/dL *HI* (07/03/16 12:51 PM) Globulin [2.7-4.2 g/dL] 0.3 *LOW* (07/03/16 12:51 PM) A/G Ratio [0.7-1.6] 8.2 mg/dL *LOW* (07/07/16 6:02 AM) 8.4 mg/dL *LOW* (07/06/16 1:59 PM) 8.4 mg/dL *LOW* (07/05/16 12:09 AM) Calcium Lvl [8.5-10.5 mg/dL] 5.1 mg/dL *HI* (07/07/16 6:02 AM) 4.3 mg/dL (07/05/16 12:09 AM) 5.1 mg/dL *HI* (07/03/16 12:51 PM) Phosphorus [2.5-4.5 mg/dL] 2.0 mg/dL (07/07/16 6:02 AM) 1.8 mg/dL (07/05/16 12:09 AM) 1.8 mg/dL (07/03/16 6:43 AM) Magnesium Lvl [1.8-2.4 mg/dL] <6 unit/L (07/03/16 12:51 PM) ALT [0-65 unit/L] 12 unit/L (07/03/16 12:51 PM) AST [0-37 unit/L] 100 unit/L (07/03/16 12:51 PM) Alk Phos [39-136 unit/L] 0.2 mg/dL (07/03/16 12:51 PM) Bili Total [0.2-1.3 mg/dL] 0.9 mMol/L (06/28/16 12:27 AM) Lactic Acid Lvl [0.5-2.2 mMol/L] 1Result [...] 3 Most recent to oldest [Reference Range]: 74 ug/dl (07/05/16 12:07 AM) Iron [30-160 ug/dl] URINE CHEM 1 2 3 Most recent to oldest [Reference Range]: 58.50 mg/dL *NA* (07/05/16 12:28 AM) 59.60 mg/dL *NA* (07/01/16 6:37 PM) U Creatinine 934.6 mg/dL *NA* (07/05/16 12:28 AM) U Protein 16.0 *NA* (07/05/16 12:28 AM) U Prot/Creat 58 mEq/L *NA* (07/01/16 6:37 PM) U Sodium Negative (06/29/16 7:42 PM) U Preg [Negative] URINE AND STOOL 1 2 3 Most recent to oldest [Reference Range]: Slight *ABN* (07/02/16 5:58 AM) Clear (07/01/16 6:37 PM) UA Turbidity [Clear] Yellow *NA* (07/02/16 5:58 AM) Yellow *NA* (07/01/16 6:37 PM) UA Color [Yellow] 6.5 (07/02/16 5:58 AM) 6.5 (07/01/16 6:37 PM) UA pH [5.0-8.0] 1.009 (07/02/16 5:58 AM) 1.011 (07/01/16 6:37 PM) UA Spec Grav [<=1.030] Negative mg/dL *NA* (07/02/16 5:58 AM) 30 mg/dL *ABN* (07/01/16 6:37 PM) UA Glucose [Negative mg/dL] Moderate *ABN* (07/02/16 5:58 AM) Trace *ABN* (07/01/16 6:37 PM) UA Blood [Negative] Negative mg/dL *NA* (07/02/16 5:58 AM) Negative mg/dL *NA* (07/01/16 6:37 PM) UA Ketones [Negative mg/dL] >=300 mg/dL *ABN* (07/02/16 5:58 AM) >=300 mg/dL *ABN* (07/01/16 6:37 PM) UA Protein [Negative mg/dL] <=1.0 mg/dL *NA* (07/02/16 5:58 AM) <=1.0 mg/dL *NA* (07/01/16 6:37 PM) UA Urobilinogen [0.1-1.0 mg/dL] Negative *NA* (07/02/16 5:58 AM) Negative *NA* (07/01/16 6:37 PM) UA Bili [Negative] Trace *ABN* (07/02/16 5:58 AM) Negative (07/01/16 6:37 PM) UA Leuk Est [Negative] Negative (07/02/16 5:58 AM) Negative (07/01/16 6:37 PM) UA Nitrite [Negative] 4 /HPF (07/02/16 5:58 AM) 3 /HPF (07/01/16 6:37 PM) UA WBC [0-5 /HPF] 125 /HPF *HI* (07/02/16 5:58 AM) 57 /HPF *HI* (07/01/16 6:37 PM) UA RBC [0-2 /HPF] Moderate /HPF *ABN* (07/02/16 5:58 AM) Occasional /HPF *NA* (07/01/16 6:37 PM) UA Bacteria [None Seen /HPF] None Seen *NA* (07/02/16 5:58 AM) None Seen *NA* (07/01/16 6:37 PM) UA Sq Epi Few /HPF *NA* (07/02/16 5:58 AM) UA Amorph Tamera [None Seen /HPF] Few /LPF *NA* (07/01/16 6:37 PM) UA Mucus [None Seen /LPF] IMMUNOLOGY 1 2 3 Most recent to oldest [Reference Range]: 37.3 mg/L *HI* (06/28/16 1:30 AM) CRP [<=2.9 mg/L] HEMATOLOGY 1 2 3 Most recent to oldest [Reference Range]: 8.2 K/CMM (07/05/16 12:09 AM) 8.4 K/CMM (07/04/16 5:11 AM) 8.6 K/CMM (07/03/16 6:43 AM) WBC [3.7-10.4 K/CMM] 3.09 M/CMM *LOW* (07/05/16 12:09 AM) 2.94 M/CMM *LOW* (07/04/16 5:11 AM) 2.74 M/CMM *LOW* (07/03/16 6:43 AM) RBC [4.20-5.40 M/CMM] 9.0 g/dL *LOW* (07/05/16 12:09 AM) 8.6 g/dL *LOW* (07/04/16 5:11 AM) 8.0 g/dL *LOW* (07/03/16 6:43 AM) Hgb [12.0-16.0 g/dL] 28.4 % *LOW* (07/05/16 12:09 AM) 26.5 % *LOW* (07/04/16 5:11 AM) 25.8 % *LOW* (07/03/16:43 AM) Hct [36.0-48.0 %] 91.9 fL (07/05/16 12:09 AM) 90.1 fL (07/04/16 5:11 AM) 93.9 fL (07/03/16:43 AM) MCV [80.0-98.0 fL] 29.2 pg (07/05/16 12:09 AM) 29.1 pg (07/04/16 5:11 AM) 29.3 pg (07/03/16:43 AM) MCH [27.0-31.0 pg] 31.8 g/dL *LOW* (07/05/16 12:09 AM) 32.3 g/dL (07/04/16 5:11 AM) 31.2 g/dL *LOW* (07/03/16:43 AM) MCHC [32.0-36.0 g/dL] 14.5 % (07/05/16 12:09 AM) 13.9 % (07/04/16 5:11 AM) 14.5 % (07/03/16:43 AM) RDW [11.5-14.5 %] 452 K/CMM *HI* (07/05/16 12:09 AM) 391 K/CMM (07/04/16 5:11 AM) 403 K/CMM (07/03/16:43 AM) Platelet [133-450 K/CMM] 8.5 fL (07/05/16 12:09 AM) 9.0 fL (07/04/16 5:11 AM) 8.3 fL (07/03/16:43 AM) MPV [7.4-10.4 fL] 63.3 % (07/05/16 12:09 AM) 59.2 % (07/04/16 5:11 AM) 58.5 % (07/03/16 6:43 AM) Segs [45.0-75.0 %] 26.2 % (07/05/16 12:09 AM) 27.9 % (07/04/16 5:11 AM) 29.1 % (07/03/16 6:43 AM) Lymphocytes [20.0-40.0 %] 7.0 % (07/05/16 12:09 AM) 8.6 % (07/04/16 5:11 AM) 9.1 % (07/03/16 6:43 AM) Monocytes [2.0-12.0 %] 2.6 % (07/05/16 12:09 AM) 3.3 % (07/04/16 5:11 AM) 2.6 % (07/03/16 6:43 AM) Eosinophils [0.0-4.0 %] 0.9 % (07/05/16 12:09 AM) 1.0 % (07/04/16 5:11 AM) 0.7 % (07/03/16 6:43 AM) Basophils [0.0-1.0 %] 5.2 K/CMM (07/05/16 12:09 AM) 5.0 K/CMM (07/04/16 5:11 AM) 5.1 K/CMM (07/03/16 6:43 AM) Segs-Bands # [1.5-8.1 K/CMM] 2.1 K/CMM (07/05/16 12:09 AM) 2.3 K/CMM (07/04/16 5:11 AM) 2.5 K/CMM (07/03/16 6:43 AM) Lymphocytes # [1.0-5.5 K/CMM] 0.6 K/CMM (07/05/16 12:09 AM) 0.7 K/CMM (07/04/16 5:11 AM) 0.8 K/CMM (07/03/16 6:43 AM) Monocytes # [0.0-0.8 K/CMM] 0.2 K/CMM (07/05/16 12:09 AM) 0.3 K/CMM (07/04/16 5:11 AM) 0.2 K/CMM (07/03/16 6:43 AM) Eosinophils # [0.0-0.5 K/CMM] 0.1 K/CMM (07/05/16 12:09 AM) 0.1 K/CMM (07/04/16 5:11 AM) 0.1 K/CMM (07/03/16 6:43 AM) Basophils # [0.0-0.2 K/CMM] Moderate *ABN* (07/01/16 6:17 AM) Polychrom [None Seen] Present *ABN* (07/01/16 6:17 AM) Rouleaux [None Seen] >100 mm/hr *ABN* (06/28/16 1:30 AM) Sed Rate [0-20 mm/hr] 13.7 seconds (06/28/16 12:27 AM) PT [12.0-14.7 seconds] 1.03 (06/28/16 12:27 AM) INR [0.85-1.17] 31.4 seconds (06/28/16 12:27 AM) PTT [22.9-35.8 seconds] Immunizations Given and [...] No Assessment and Plan Extracted from: Title: [facility] Progress Note Author: Zak Marshall MD Date: 07/07/16 Patient: GISELA HERNANDEZ Age: 40 years Sex: Female : 1975 Associated Diagnoses: None Author: Zak Marshall MD Chief Complaint right leg pain Reason for consult: rise in serum Cr Consult requested by: Dr. Gloria Carter History of Present Illness Ms. Hernandez is a 40 yo female with DM with charcot neuropathy, chronic OM, HLD, HTN, CKD4 (baseline Regional Facilities Manager ~2.5-2.8) who presented for evaluation of RLE pain, drainage and swelling. Previously told she needed amputation for this issue, she ultimately underwent RLE BKA on 06/30/17. Prior to surgery, her Regional Facilities Manager was around baseline of 2.5-2.8. Since post-op, her Regional Facilities Manager continued to uptrend up to 3.4. Renal was consulted to evaluate this ALDO on CKD. Of note, her other lab work also shows a worsening hyperkalemia and hyperphosphatemia along with metabolic acidosis. She states she was never told she has had any kidney issues. However, Regional Facilities Manager appears to have been in the CKD3-4 [...] NKDA- No reactions were documented., Allergies (1) ActiveReaction NKDANone Documented Current medications: (Selected) Inpatient Medications Ordered ALPRAZOLam 0.25 mg oral tablet: 0.25 mg, 1 tab, PO, Q8H, PRN: Anxiety Dextrose 50% Syringe: 12.5 gm, 25 mL, IVP, PRN, PRN: Blood Glucose Results Dextrose 50% Syringe: 25 gm, 50 mL, IVP, PRN, PRN: Blood Glucose Results Dulcolax Laxative: 10 mg, 1 supp, OK, Daily, PRN: Constipation Kayexalate: 15 gm, 60 mL, PO, TID Levemir: 30 unit, 0.3 mL, 0 ml/hr, SUB-Q, Daily Lidoderm 5% topical film (patch): 1 patch, TOP, Q24H Nifedical XL: 60 mg, 1 tab, PO, Daily Floyd 10/325 oral tablet: 1 tab, PO, Q4H, PRN: Headache 4-6 Floyd 10/325 oral tablet: 2 tab, PO, Q4H, PRN: Pain Score 7-10 Phenergan: 12.5 mg, 0.5 mL, IVPB, Q4H, PRN: Nausea & Vomiting Renvela: 0.8 gm, 1 tab, PO, Daily aspirin 81 mg tablet, enteric coated: 81 mg, 1 tab, PO, Daily carvedilol: 25 mg, 1 tab, PO, Q12H docusate: 100 mg, 1 cap, PO, BID dronabinol: 5 mg, 1 cap, PO, [id number] gabapentin 300 mg oral capsule: 300 mg, [...] mg, 2 mL, IVP, Q8H, PRN: Nausea & Vomiting remove patch: 1 patch, TOP, Bedtime senna: 17.2 mg, 2 tab, PO, Bedtime sodium bicarbonate: 1,950 mg, 3 tab, PO, BID sodium chloride 0.9% INJ 250 mL: calliope player for use with blood product administration, IV, [...] for 30 day, 30 tab, 0 Refill(s) Floyd 10/325 oral tablet: 2 tab, PO, Q6H, [...] oral capsule: 5 mg, 1 cap, PO, [id number], for 7 day, 14 cap, 0 Refill(s) [...] mg CAP 5 mg 1 cap, PO, [id number] gabapentin 300 mg CAP 300 mg 1 [...] 3 tab, PO, BID sodium polystyrene sulfonate LUCÍA 15gm/60ml 15 gm 60 mL, PO, TID [...] mg rect SUPP 10 mg 1 supp, OK, Daily Dextrose 50% 50 ml INJ syringe [...] - Congestive heart failure / SNOMED CT 480493151 / Confirmed DM (diabetes mellitus) / SNOMED CT [id number] / Confirmed HTN - Hypertension / SNOMED CT 9263276459 / Confirmed Klebsiella / SNOMED CT 059351771 / Confirmed Problem added by Discern Expert. Blood, 03/29/2016 MRSA / SNOMED CT 948731892 / Confirmed Problem added by Discern Expert. nares - 02/19/16 right foot aspirate - 02/23/16 Osteomyelitis / SNOMED CT 967009493 / Confirmed Canceled: Neuropathy / SNOMED CT 8456544083, Active Problems (6) CHF - Congestive heart failure DM (diabetes mellitus) HTN - Hypertension Klebsiella MRSA Osteomyelitis Histories Past Medical History: Active HTN - Hypertension (3575558677) DM (diabetes mellitus) ([id number]) CHF - Congestive heart failure (607640664) Osteomyelitis (310690672) Family History: High blood pressure Father Mother Heart failure Father Mother Type 2 diabetes mellitus Father Mother Procedure history: section ([id number]). Amputation ([id number]). Comments: 11/01/2015 21:50 - Rashawn Garzon RN 2 toes in R foot Social History Social & Psychosocial Habits Alcohol 11/01/2015 Use: Never Substance [...] Signs (last 24 hrs) Last Charted Temp Oral98.4 DegF (JUL 07:) Heart Rate [id number] bpm (JUL 07) Resp Rate 18 BRMIN (JUL 07) SBPH 158mmHg (JUL 07) DBP83 mmHg (JUL 07) HyK528 % (JUL 07) General: Alert and oriented, Mild distress, actively [...] review: Labs (Last four charted values) WBC 8.2(JUL 05)8.4(JUL 04)8.6(JUL 03)7.1(JUL 02) Hgb L 9.0(JUL 05)L 8.6(JUL 04)L 8.0(JUL 03)C 6.8(JUL 02) Hct L 28.4(JUL 05)L 26.5(JUL 04)L 25.8(JUL 03)L 21.4(JUL 02) Plt H 452(JUN 14)391(JUN 13)403(JUN 12)370(JUN 11) Na 142(JUL 07)144(JUN 15)138(JUN 14)138(JUN 13) K 4.8(JUL 07)4.8(JUN 15)H 5.5(JUL 05)H 5.4(JUL 04) CO2 27(JUL 07)27(JUL 06)L 20(JUL 05)L 20(JUL 04) Cl 109(JUL 07)109(JUL 06)108(JUL 05)H 110(JUL 04) Cr H 2.48(JUL 07)H 2.45(JUL 06)H 2.64(JUL 05)H 3.05(JUL 04) BUN 22(JUL 07)21(JUL 06)H 25(JUL 05)H 30(JUL 04) Glucose Random 97(JUL 07)L 66(JUL 06)84(JUL 05)C 49(JUL 04) Mg 2.0(JUL 07)1.8(JUL 05)1.8(JUL 03)1.8(JUL 02) Phos H 5.1(JUL 07)4.3(JUL 05)H 5.1(JUL 03)C 1.3(JUL 03) Ca L 8.2(JUL 07)L 8.4(JUL 06)L 8.4(JUL 05)8.7(JUL 04) PT 13.7(JUN 28) INR 1.03(JUN 28) PTT 31.4(JUN 28). Impression and Plan Ms. Hernandez is a 40 yo female with DM with charcot neuropathy, chronic OM, HLD, HTN, CKD4 (baseline Regional Facilities Manager ~2.5-2.8) who presented for evaluation of RLE pain, drainage and swelling. Previously told she needed amputation for this issue, she ultimately underwent RLE BKA on 06/30/17. Prior to surgery, her Regional Facilities Manager was around baseline of 2.5-2.8. Since post-op, her Regional Facilities Manager continued to uptrend up to 3.4. Renal was consulted to evaluate this ALDO on CKD. #ALDO on CKD 4 (B/L Regional Facilities Manager 2.5-2.8) -Regional Facilities Manager 3.4 after surgical procedure. Now d owntrended to 3.05--> 2.45 (Baseline) --> 2.48 (Baseline) -Likely ATN 2/2 surgery and inflammatory state. --Now back to baseline. UOP adequate @ 2 .3L/24hours. -Volume status: mildly volume overloaded . Likely 2/2 hypoalbuminemia. UPC 16. EF 55-60% --Now that second language tutor is back to baseline, jaya ricks recommend restarting low dose lisinopril to control proteinuria. --Monitor for worsening hyperkalemia --Would expect second language tutor to increase by ~30% a fter starting KEMAL-i and would continue monitoring. --Can consider lasix 40 qd if renal func tion is stable. -UOP: 2L/24hours -Renal U/S - medical renal disease. No h ydronephrosis -Avoid NSAIDS, KEMAL-i, Other nephrotoxic agents. Hold diuretics for now. [...] Dr. Fields. We will sign off. Addendum ATTENDING NOTE by I have seen and examined th e patient, reviewed the laboratory data, discussed the Diamond pertinent case findings wit h the resident/fellow, and agree with the assessment and plan , Celeste Vigil MD as documented below. on 07/07/2016 21:52 Extracted from: Title: [facility] Initial Author: Zak Marshall MD Date: 07/04/16 Consultation Note Impression and Plan Ms. Hernandez is a 40 yo female with DM with charcot neuropathy, chronic OM, HLD, HTN, CKD4 (baseline Regional Facilities Manager ~2.5-2.8) who presented for evaluation of RLE pain, drainage and swelling. Previously told she needed amputation for this issue, she ultimately underwent RLE BKA on 06/30/17. Prior to surgery, her Regional Facilities Manager was around baseline of 2.5-2.8. Since post-op, her Regional Facilities Manager continued to uptrend up to 3.4. Renal was consulted to evaluate this ALDO on CKD. #ALDO on CKD 4 (B/L Regional Facilities Manager 2.5-2.8) -Regional Facilities Manager 3.4 after surgical procedure. Now d owntrended to 3.05 -Likely ATN 2/2 surgery and inflammatory state. -Volume status: mildly volume overloaded . -UOP: 1.8L/24hours -Consider checking renal U/S to assess r enal echotexture and size. -Consider checking a UPC. -Avoid NSAIDS, KEMAL-i, Other nephrotoxic agents. Hold diuretics for now. [...] Plan was discussed with primary team. Extracted from: Title: History and Physical Author: Darrion Wolf DO Date: 06/28/16 Assessment/Plan Patient is a 40 year old AA female with PMH HTN, DM, CKD, chronic osteo, HLD, anxiety who presented 2/2 excruciating RLE pain associatedwith drainage / swelling. 1.Subacute osteomyelitis, right ankle and foot hold antibiotics at this time. patient [...] Weight 112.727, kg, Start date: 06/28/16 9:00:00 SUBSTATION ENGINEER, Duration: 30 day, Stop date: 07/27/16 21:00:00 CDT 4.DM (diabetes mellitus) add ssi Ordered: Levemir, 30 unit, Route: SUB-Q, Drug form: SOLN, Daily, Dosing Weight 112.727, kg, Start date: 06/28/16 9:00:00 SUBSTATION ENGINEER, Duration: 30 day, Stop date: 07/27/16 9:00:00 CDT 5.HTN - Hypertension Ordered: amLODIPine, 10 mg, Route: PO, Drug form: TAB, Daily, Dosing Weight 112.727, kg, Start date: 06/28/16 9:00:00 SUBSTATION ENGINEER, Duration: 30 day, Stop date: 07/27/16 9:00:00 CDT carvedilol, 25 mg, Route: PO, Drug form: TAB, Q12H, Dosing Weight 112.727, kg, Start date: 06/28/16 9:00:00 SUBSTATION ENGINEER, Duration: 30 day, Stop date: 07/27/16 21:00:00 CDT Lasix 20 mg oral tablet, 20 mg, 1 tab, Route: PO, Drug form: TAB, BID, Dosing Weight 112.727, kg, Start date: 06/28/16 9:00:00 SUBSTATION ENGINEER, Duration: 30 day, Stop date: 07/27/16 17:00:00 CDT hydrALAZINE 100 mg oral tablet, 100 mg, 1 tab, Route: PO, Drug form: TAB, TID, Dosing Weight 112.727, kg, Start date: 06/28/16 9:00:00 SUBSTATION ENGINEER, Duration: 30 day, Stop date: 07/27/16 17:00:00 CDT 6.Hyperlipidemia atorvastatin 7.Anxiety/Depression alprazolam prn Orders: acetaminophen, 1,000 mg, Route: IVPB, Q6Hnow, Dosing Weight 112.727, kg, Start date: 06/28/16 3:00:00 SUBSTATION ENGINEER, Duration: 30 day, Stop date: 07/27/16 21:00:00 CDT ALPRAZOLam 0.25 mg oral tablet, 0.25 mg, 1 tab, Route: PO, Drug form: TAB, Q8H, Dosing Weight 112.727, kg, PRN Anxiety, Start date: 06/28/16 2:38:00 SUBSTATION ENGINEER, Duration: 30 day, Stop date: 07/28/16 2:37:00 CDT aspirin 81 mg tablet, enteric coated, 81 mg, 1 tab, Route: PO, Drug form: ECTAB, Daily, Dosing Weight 112.727, kg, Start date: 06/28/16 9:00:00 SUBSTATION ENGINEER, Duration: 30 day, Stop date: 07/27/16 9:00:00 CDT atorvastatin, 40 mg, Route: PO, Drug form: TAB, Bedtime, Dosing Weight 112.727, kg, Start date: 06/28/16 21:00:00 SUBSTATION ENGINEER, Duration: 30 day, Stop date: 07/27/16 21:00:00 CDT Dextrose 50% Syringe, 50 mL, Route: IVP, Dosing Weight 112.727, kg, PRN, PRN Blood Glucose Results, Start date: 06/28/16 2:39:00 SUBSTATION ENGINEER, Duration: 30 day, Stop date: 07/28/16 3:38:00 CDT Dextrose 50% Syringe, 25 mL, Route: IVP, Dosing Weight 112.727, kg, PRN, PRN Blood Glucose Results, Start date: 06/28/16 2:39:00 SUBSTATION ENGINEER, Duration: 30 day, Stop date: 07/28/16 3:38:00 CDT docusate, 100 mg, Route: PO, BID, Dosing Weight 112.727, kg, Start date: 06/28/16 9:00:00 SUBSTATION ENGINEER, Duration: 30 day, Stop date: 07/27/16 17:00:00 CDT glucagon, 1 mg, Route: IM, PRN, Dosing Weight 112.727, kg, PRN Blood Glucose Results, Start date: 06/28/16 2:39:00 SUBSTATION ENGINEER, Duration: 30 day, Stop date: 07/28/16 3:38:00 CDT insulin aspart, 5 unit, Route: SUB-Q, TID-Before Meals, Dosing Weight 112.727, kg, PRN Blood Glucose Results, Start date: 06/28/16 2:39:00 SUBSTATION ENGINEER, Duration: 30 day, Stop date: 07/28/16 2:38:00 CDT insulin aspart, 1 unit, Route: SUB-Q, TID-Before Meals, Dosing Weight 112.727, kg, PRN Blood Glucose Results, Start date: 06/28/16 2:39:00 SUBSTATION ENGINEER, Duration: 30 day, Stop date: 07/28/16 2:38:00 CDT insulin aspart, 2 unit, Route: SUB-Q, TID-Before Meals, Dosing Weight 112.727, kg, PRN Blood Glucose Results, Start date: 06/28/16 2:39:00 SUBSTATION ENGINEER, Duration: 30 day, Stop date: 07/28/16 2:38:00 CDT insulin aspart, 3 unit, Route: SUB-Q, TID-Before Meals, Dosing Weight 112.727, kg, PRN Blood Glucose Results, Start date: 06/28/16 2:39:00 [employer]STATION ENGINEER, Duration: 30 day, Stop date: 07/28/16 2:38:00 CDT insulin aspart, 4 unit, Route: SUB-Q, TID-Before Meals, Dosing Weight 112.727, kg, PRN Blood Glucose Results, Start date: 06/28/16 2:39:00 SUBSTATION ENGINEER, Duration: 30 day, Stop date: 07/28/16 2:38:00 CDT Lidoderm 5% topical film (patch), 1 patch, Route: TOP, Q24H, Start date: 06/28/16 3:00:00 SUBSTATION ENGINEER, Duration: 30 day, Stop date: 07/27/16 3:00:00 CDT methocarbamol, 750 mg, Route: PO, Drug form: TAB, TID, Dosing Weight 112.727, kg, Start date: 06/28/16 9:00:00 SUBSTATION ENGINEER, Duration: 30 day, Stop date: 07/27/16 17:00:00 CDT morphine Sulfate, 2 mg, Route: IVP, Q4H, Dosing Weight 112.727, kg, PRN Pain Score 7-10, Start date: 06/28/16 2:37:00 SUBSTATION ENGINEER, Duration: 30 day, Stop date: 07/28/16 2:36:00 CDT ondansetron, 4 mg, Route: IVP, Q8H, Dosing Weight 112.727, kg, PRN Nausea & Vomiting, Start date: 06/28/16 2:37:00 SUBSTATION ENGINEER, Duration: 30 day, Stop date: 07/28/16 2:36:00 CDT oxyCODONE 5 mg immediate release, 5 mg, Route: PO, Drug form: TAB, Q4H, Dosing Weight 112.727, kg, PRN Pain Score 4-6, Start date: 06/28/16 2:37:00 SUBSTATION ENGINEER, Duration: 30 day, Stop date: 07/28/16 2:36:00 CDT oxyCODONE 5 mg immediate release, 10 mg, Route: PO, Drug form: TAB, Q4H, Dosing Weight 112.727, kg, PRN Pain Score 7-10, Start date: 06/28/16 2:37:00 SUBSTATION ENGINEER, Duration: 30 day, Stop date: 07/28/16 2:36:00 CDT senna, 2 tab, Route: PO, Dosing Weight 112.727, kg, Bedtime, Start date: 06/28/16 21:00:00 SUBSTATION ENGINEER, Duration: 30 day, Stop date: 07/27/16 21:00:00 CDT tramadol, 50 mg, Route: PO, Drug form: TAB, Q6Hnow, Dosing Weight 112.727, kg, Start date: 06/28/16 3:00:00 SUBSTATION ENGINEER, Duration: 30 day, Stop date: 07/27/16 21:00:00 CDT Ambulation Basic Metabolic Panel Bedrest CDM Acute Pain/Anxiolytic Orders CDM Admission Acute Care Post ED CDM Aspart (Novolog) for Starting Correction Doses CDM Insulin Sub-Q Orders for patients on Oral Nutrition Complete Blood Count w/ Diff and Platelet Diet NPO Hypoglycemia Management Hypoglycemia Management Intake and Output Notify Notify Notify Notify Notify Notify Notify Provide Education AC4 Patient Education AC4 Point of Care Blood Glucose AC4 Point of Care Blood Glucose AC4 Falls Protocol Pulse Oximetry Spot Check by Nurse Resuscitation (Code) Status Turn Vital Signs Weigh patient AC4 Prophylaxis heparin Disposition home v snf following surgical intervention, pt/ot please page dr reyes with any further questions
--- OUTSIDE RECORDS SUMMARY | 2019-09-10 20:14 | XMS REPORT | Summary of Care ---
Author Author [facility] Organization [facility] Address Unknown Phone Unavailable Encounter PRIMITIVO Mariano(SANGITA) [id number] Date(s): 08/16/16 - 08/17/16 [facility] [address] [employer] provided by [facility] [employer] [facility] [employer] [place] [address]- Discharge Disposition: Home or Self Care Attending Physician: Kayla Pacheco MD Admitting Physician: Kayla Pacheco MD Vital Signs 1 2 3 Most recent to oldest [Reference Range]: 170.18 cm (08/17/16 5:57 AM) 170.18 cm (08/16/16 9:16 PM) Height 97.9 DegF (08/17/16 1:45 PM) 98.2 DegF (08/17/16 5:49 AM) 98.5 DegF (08/17/16 4:00 AM) Temperature Oral [96.4-99.1 DegF] 103/54 mmHg (08/17/16 8:16 PM) 129/77 mmHg (08/17/16 6:00 PM) 142/88 mmHg *HI* (08/17/16 5:00 PM) Blood Pressure [90-140/60-90 mmHg] 20 BRMIN (08/17/16 8:16 PM) 20 BRMIN (08/17/16 6:00 PM) 17 BRMIN (08/17/16 5:00 PM) Respiratory Rate [14-20 BRMIN] 108 bpm *HI* (08/17/16 4:00 AM) 106 bpm *HI* (08/17/16 3:31 AM) 104 bpm *HI* (08/17/16 2:46 AM) Peripheral Pulse Rate [60-100 bpm] 120.597 kg (08/17/16 5:57 AM) 114.545 kg (08/16/16 9:16 PM) Weight 41.64 m2 (08/17/16 5:57 AM) 39.55 m2 (08/16/16 9:16 PM) Body Mass Index Problem List Condition [...] Status NKDA Active Medications acetaminophen 650 mg, Route: PO, Drug form: TAB, Q4H, Dosing Weight 114.545, kg, PRN Pain 1-3/ Temp > 100.4 F, Start date: 08/17/16 3:22:00 CDT, Duration: 30 day, Stop date: 09/16/16 3:21:00 CDT Start Date: 08/17/16 Stop Date: 08/17/16 Status: Discontinued acetaminophen 1,000 mg, 2 tab, Route: PO, Drug form: TAB, Q6Hnow, Dosing Weight 114.545, kg, S tart date: 08/17/16 6:00:00 CDT, Duration: 30 day, Stop date: 09/16/16 0:00:00 C DT Notes: Max acetaminophen 4000 mg/day (4 gm/day). (Same as: Tylenol Extra Streng th) Start Date: 08/17/16 Stop Date: 08/17/16 Status: Discontinued acetaminophen-hydrocodone 325 mg-7.5 mg/15 mL oral solution 15 mL, Route: PO, Drug Form: SOLN, Dosing Weight 114.545, kg, Q6H, PRN Pain Scor e 7-10, Start date: 08/17/16 6:00:00 CDT, Stop date: 09/16/16 0:00:00 CDT Notes: Do not exceed 4gm/day of acetaminophen. (Same as: [place] 325/7.5) Start Date: 08/17/16 Stop Date: 08/18/16 Status: Discontinued ANES flumazenil 0.2 mg, 2 mL, Route: IVP, Drug form: INJ, PRN, Dosing Weight 120.597, kg, PRN Be nzodiazepine Reversal, Initial dose, Start date: 08/17/16 10:16:00 CDT, Duration : 30 day, Stop date: 09/16/16 10:15:00 CDT Notes: (Same as: Romazicon) Start Date: 08/17/16 Stop Date: 08/18/16 Status: Discontinued ANES hydrALAZINE 10 mg, 0.5 mL, Route: IVP, Drug form: INJ, Q20Min, Dosing Weight 120.597, kg, OR N Elevated BP, Start date: 08/17/16 10:16:00 CDT, Duration: 2 doses or times, St op date: Limited # of times Notes: (Same as: Apresoline) Start Date: 08/17/16 Stop Date: 08/18/16 Status: Discontinued ANES HYDROmorphone 0.5 mg, 0.25 mL, Route: IVP, Drug form: INJ, Q5Min, Dosing Weight 120.597, kg, P RN Pain Score 7-10, Start date: 08/17/16 10:16:00 CDT, Duration: 4 doses or time s, Stop date: Limited # of times Notes: Same as: Dilaudid Start Date: 08/17/16 Stop Date: 08/18/16 Status: Discontinued ANES labetalol 10 mg, 2 mL, Route: IVP, Drug form: INJ, Q5Min, Dosing Weight 120.597, kg, PRN E levated BP, Start date: 08/17/16 10:16:00 CDT, Duration: 5 doses or times, Stop date: Limited # of times Start Date: 08/17/16 Stop Date: 08/18/16 Status: Discontinued ANES morphine Sulfate 2 mg, 1 mL, Route: IVP, Drug form: INJ, Q5Min, Dosing Weight 120.597, kg, PRN Pa in Score 4-6, Start date: 08/17/16 10:16:00 CDT, Duration: 5 doses or times, Sto p date: Limited # of times Notes: (Same as:MORPhine Sulfate) Start Date: 08/17/16 Stop Date: 08/18/16 Status: Discontinued ANES naloxone 0.4 mg, 1 mL, Route: IVP, Drug form: INJ, Q2MIN, Dosing Weight 120.597, kg, PRN Narcotic Reversal, Start date: 08/17/16 10:16:00 CDT, Duration: 8 doses or times , Stop date: Limited # of times Notes: Same as Narcan Start Date: 08/17/16 Stop Date: 08/18/16 Status: Discontinued ANES ondansetron 4 mg, 2 mL, Route: IVP, Drug form: INJ, ONCE, Dosing Weight 120.597, kg, PRN Elmer sea & Vomiting, Start date: 08/17/16 10:16:00 CDT Notes: (Same as: Luis) MEDICATION WASTE Product Size: 4 mgProduct Was savana: ___ mg Start Date: 08/17/16 Stop Date: 08/18/16 Status: Discontinued atorvastatin 40 mg, 1 tab, Route: PO, Drug form: TAB, Bedtime, Dosing Weight 114.545, kg, Sta rt date: 08/17/16 21:00:00 CDT, Duration: 30 day, Stop date: 09/15/16 21:00:00 C DT Notes: (Same as: Lipitor) Start Date: 08/17/16 Stop Date: 08/18/16 Status: Discontinued Carafate 1 gm, 1 tab, Route: PO, Drug form: TAB, QID, Dosing Weight 120.597, kg, Start da te: 08/17/16 13:00:00 CDT, Duration: 30 day, Stop date: 09/16/16 9:00:00 CDT Start Date: 08/17/16 Stop Date: 08/18/16 Status: Discontinued carvedilol 25 mg, 1 tab, Route: PO, Drug form: TAB, Q12H, Dosing Weight 114.545, kg, Start date: 08/17/16 9:00:00 CDT, Duration: 30 day, Stop date: 09/15/16 21:00:00 CDT Notes: Give with food. (Same As: Coreg) Start Date: 08/17/16 Stop Date: 08/18/16 Status: Discontinued Dextrose 50% Syringe 25 gm, 50 mL, Route: IVP, Drug Form: INJ, Dosing Weight 114.545, kg, PRN, PRN Bl ood Glucose Results, Start date: 08/17/16 5:22:00 CDT, Duration: 30 day, Stop da te: 09/16/16 5:21:00 CDT Start Date: 08/17/16 Stop Date: 08/18/16 Status: Discontinued Dextrose 50% Syringe 12.5 gm, 25 mL, Route: IVP, Drug Form: INJ, Dosing Weight 114.545, kg, PRN, PRN Blood Glucose Results, Start date: 08/17/16 5:22:00 CDT, Duration: 30 day, Stop date: 09/16/16 5:21:00 CDT Start Date: 08/17/16 Stop Date: 08/18/16 Status: Discontinued docusate 100 mg, 1 cap, Route: PO, Drug form: CAP, BID, Dosing Weight 114.545, kg, Start date: 08/17/16 9:00:00 CDT, Duration: 30 day, Stop date: 09/15/16 17:00:00 CDT Notes: (Same as: Colace) (Do Not Crush) Start Date: 08/17/16 Stop Date: 08/18/16 Status: Discontinued gabapentin 300 mg oral capsule 300 mg, 1 cap, Route: PO, Drug form: CAP, Q12H, Dosing Weight 114.545, kg, Start date: 08/17/16 9:00:00 CDT, Duration: 30 day, Stop date: 09/15/16 21:00:00 CDT Notes: (Same as: Neurontin) Start Date: 08/17/16 Stop Date: 08/18/16 Status: Discontinued glucagon 1 mg, Route: IM, Drug form: PDR/INJ, PRN, Dosing Weight 114.545, kg, PRN Blood G lucose Results, Start date: 08/17/16 5:22:00 CDT, Duration: 30 day, Stop date: 0 09/16/16 5:21:00 CDT Start Date: 08/17/16 Stop Date: 08/18/16 Status: Discontinued hydrALAZINE 100 mg, 2 tab, Route: PO, Drug form: TAB, TID, Dosing Weight 114.545, kg, Start date: 08/17/16 9:00:00 CDT, Stop date: 09/15/16 17:00:00 CDT Notes: (Same as: Apresoline) May interfere w/enteral feedings Take With Food Start Date: 08/17/16 Stop Date: 08/18/16 Status: Discontinued hydrochlorothiazide 25 mg, 1 tab, Route: PO, Drug form: TAB, ONCE, Dosing Weight 114.545, kg, Start date: 08/17/16 4:01:00 CDT, Stop date: 08/17/16 4:01:00 CDT Notes: (Same as: Hydrodiuril) With food. Start Date: 08/17/16 Stop Date: 08/17/16 Status: Discontinued insulin aspart 2 unit, 0.02 mL, Route: SUB-Q, Drug form: SOLN, TID-Before Meals, Dosing Weight 114.545, kg, PRN Blood Glucose Results, Start date: 08/17/16 5:22:00 CDT, Durati on: 30 day, Stop date: 09/16/16 5:21:00 CDT Notes: Roll in palms of hands gently; Do not shake vigorously. (Same as: Jarrod Angulo)"single patient use only"WASTE: F/P - Black; E - Municipal Trash Bin Stable f or 28 days at room temperature.Expires in days from Date Start Date: 08/17/16 Stop Date: 08/18/16 Status: Discontinued insulin aspart 4 unit, 0.04 mL, Route: SUB-Q, Drug form: SOLN, TID-Before Meals, Dosing Weight 114.545, kg, PRN Blood Glucose Results, Start date: 08/17/16 5:22:00 CDT, Durati on: 30 day, Stop date: 09/16/16 5:21:00 CDT Notes: Roll in palms of hands gently; Do not shake vigorously. (Same as: Jarrod Angulo)"single patient use only"WASTE: F/P - Black; E - Municipal Trash Bin Stable f or 28 days at room temperature.Expires in days from Date Start Date: 08/17/16 Stop Date: 08/18/16 Status: Discontinued insulin aspart 3 unit, 0.03 mL, Route: SUB-Q, Drug form: SOLN, TID-Before Meals, Dosing Weight 114.545, kg, PRN Blood Glucose Results, Start date: 08/17/16 5:22:00 CDT, Durati on: 30 day, Stop date: 09/16/16 5:21:00 CDT Notes: Roll in palms of hands gently; Do not shake vigorously. (Same as: Jarrod Angulo)"single patient use only"WASTE: F/P - Black; E - Municipal Trash Bin Stable f or 28 days at room temperature.Expires in days from Date Start Date: 08/17/16 Stop Date: 08/18/16 Status: Discontinued insulin aspart 5 unit, 0.05 mL, Route: SUB-Q, Drug form: SOLN, TID-Before Meals, Dosing Weight 114.545, kg, PRN Blood Glucose Results, Start date: 08/17/16 5:22:00 CDT, Durati on: 30 , Stop date: 09/16/16 5:21:00 CDT Notes: Roll in palms of hands gently; Do not shake vigorously. (Same as: Jarrod Angulo)"single patient use only"WASTE: F/P - Black; E - Municipal Trash Bin Stable f or 28 days at room temperature.Expires in days from Date Start Date: 08/17/16 Stop Date: 08/18/16 Status: Discontinued insulin aspart 6 unit, 0.06 mL, Route: SUB-Q, Drug form: SOLN, TID-Before Meals, Dosing Weight 114.545, kg, Start date: 08/17/16 7:30:00 CDT, Duration: 30 day, Stop date: 08/23 09/07 16:30:00 CDT Notes: Roll in palms of hands gently; Do not shake vigorously. (Same as: NovoLO G)"single patient use only"WASTE: F/P - Black; E - Municipal Trash Bin Stable f or 28 days at room temperature.Expires in days from Date Start Date: 08/17/16 Stop Date: 08/18/16 Status: Discontinued insulin aspart 1 unit, 0.01 mL, Route: SUB-Q, Drug form: SOLN, TID-Before Meals, Dosing Weight 114.545, kg, PRN Blood Glucose Results, Start date: 08/17/16 5:22:00 CDT, Durati on: 30 day, Stop date: 09/16/16 5:21:00 CDT Notes: Roll in palms of hands gently; Do not shake vigorously. (Same as: NovoDONG G)"single patient use only"WASTE: F/P - Black; E - Municipal Trash Bin Stable f or 28 days at room temperature.Expires in days from Date Start Date: 08/17/16 Stop Date: 08/18/16 Status: Discontinued insulin glargine 10 unit, 0.1 mL, Route: SUB-Q, Drug form: SOLN, Daily, Dosing Weight 114.545, kg , Start date: 08/17/16 9:00:00 CDT, Duration: 30 day, Stop date: 09/15/16 9:00:0 0 CDT Notes: Same as: Crow)Do not hold insulin without contacting prescriberWASTE: F /P - Black; E - Municipal Trash Bin Start Date: 08/17/16 Stop Date: 08/17/16 Status: Discontinued labetalol 20 mg, 4 mL, Route: IVP, Drug form: INJ, ONCE, Dosing Weight 114.545, kg, Start date: 08/17/16 5:27:00 CDT, Stop date: 08/17/16 5:27:00 CDT Start Date: 08/17/16 Stop Date: 08/17/16 Status: Completed Lasix 20 mg oral tablet 20 mg, 1 tab, Route: PO, Drug form: TAB, BID, Dosing Weight 114.545, kg, Start d ate: 08/17/16 9:00:00 CDT, Duration: 30 day, Stop date: 09/15/16 17:00:00 CDT Notes: (Same as: Lasix) May cause GI upset. Give with food or milk. Start Date: 08/17/16 Stop Date: 08/18/16 Status: Discontinued Levemir 30 unit, 0.3 mL, Route: SUB-Q, Drug form: SOLN, Daily, Dosing Weight 114.545, kg , Start date: 08/17/16 9:00:00 CDT, Duration: 30 day, Stop date: 09/15/16 9:00:0 0 CDT Notes: Same as LevemirDo not hold insulin without contacting prescriberWASTE: F/ P - Black; E - Municipal Trash Bin "single patient use only" Start Date: 08/17/16 Stop Date: 08/17/16 Status: Discontinued Levemir 30 unit, 0.3 mL, Route: SUB-Q, Drug form: SOLN, Daily, Dosing Weight 114.545, kg , Start date: 08/18/16 9:00:00 CDT, Duration: 30 day, Stop date: 09/16/16 9:00:0 0 CDT Notes: Same as LevemirDo not hold insulin without contacting prescriberWASTE: F/ P - Black; E - Municipal Trash Bin "single patient use only" Start Date: 08/18/16 Stop Date: 08/18/16 Status: Canceled Levemir 15 unit, 0.15 mL, Route: SUB-Q, Drug form: SOLN, ONCE, Dosing Weight 114.545, kg , Start date: 08/17/16 10:00:00 CDT, Stop date: 08/17/16 10:00:00 CDT Notes: Same as LevemirDo not hold insulin without contacting prescriberWASTE: F/ P - Black; E - Municipal Trash Bin "single patient use only" Start Date: 08/17/16 Stop Date: 08/17/16 Status: Completed Lidoderm 5% topical film (patch) 1 patch, Route: TOP, Q24H, Drug form: FILM, Start date: 08/17/16 4:00:00 CDT, Du ration: 30 day, Stop date: 09/15/16 4:00:00 CDT Notes: Apply only once for up to 12 hours in b24-cvdn period (12 hours on and 12 hours off).(Same as: Lidoderm)"Remove old patch before application of new patch" Start Date: 08/17/16 Stop Date: 08/18/16 Status: Discontinued morphine Sulfate 4 mg, 1 mL, Route: IVP, Drug form: INJ, ONCE, Dosing Weight 114.545, kg, Priorit y: STAT, Start date: 08/17/16 0:10:00 CDT, Stop date: 08/17/16 0:10:00 CDT Notes: (Same as:MORPhine Sulfate) Start Date: 08/17/16 Stop Date: 08/17/16 Status: Completed morphine Sulfate 4 mg, 1 mL, Route: IVP, Drug form: INJ, ONCE, Dosing Weight 114.545, kg, Priorit y: STAT, Start date: 08/17/16 2:49:00 CDT, Stop date: 08/17/16 2:49:00 CDT Notes: (Same as:MORPhine Sulfate) Start Date: 08/17/16 Stop Date: 08/17/16 Status: Completed NIFEdipine 90 mg oral tablet, extended release 90 mg, 1 tab, Route: PO, Drug form: ERTAB, Daily, Dosing Weight 114.545, kg, Sta rt date: 08/17/16 9:00:00 CDT, Duration: 30 day, Stop date: 09/15/16 9:00:00 CDT Notes: (Same as: Adalat CC,Procardia XL)"Do Not Crush" "Avoid grapefruit and gr apefruit juice" Start Date: 08/17/16 Stop Date: 08/18/16 Status: Discontinued oxyCODONE 5 mg immediate release 5 mg, 1 tab, Route: PO, Drug form: TAB, Q4H, Dosing Weight 114.545, kg, PRN Pain Score 4-6, Start date: 08/17/16 5:21:00 CDT, Duration: 30 day, Stop date: 09/16 5:20:00 CDT Notes: (Same as: Roxicodone) Start Date: 08/17/16 Stop Date: 08/17/16 Status: Discontinued oxyCODONE 5 mg immediate release 10 mg, 2 tab, Route: PO, Drug form: TAB, Q4H, Dosing Weight 114.545, kg, PRN Katherine n Score 7-10, Start date: 08/17/16 5:21:00 CDT, Duration: 30 day, Stop date: 5:20:00 CDT Notes: (Same as: Roxicodone) Start Date: 08/17/16 Stop Date: 08/17/16 Status: Discontinued pantoprazole 80 mg, Route: IVP, Drug form: INJ, ONCE, Dosing Weight 114.545, kg, Priority: ST AT, Start date: 08/17/16 1:18:00 CDT, Stop date: 08/17/16 1:18:00 CDT Notes: For IV push reconstitute with 10 ml 0.9% sodium chloride and push over 2 minutes. (Same as: Protonix) Start Date: 08/17/16 Stop Date: 08/17/16 Status: Completed pantoprazole 40 mg, Route: IV, Drug form: INJ, Daily, Dosing Weight 114.545, kg, Start date: 08/17/16 9:00:00 CDT, Duration: 30 day, Stop date: 09/15/16 9:00:00 CDT Notes: For IV push reconstitute with 10 ml 0.9% sodium chloride and push over 2 minutes. (Same as: Protonix) Start Date: 08/17/16 Stop Date: 08/17/16 Status: Discontinued pantoprazole 40 mg oral enteric coated tablet 40 mg = 1 tab, PO, Daily, # 30 tab, 0 Refill(s), Pharmacy: [facility] [id number] Start Date: 08/17/16 Stop Date: 09/16/16 Status: Ordered pantoprazole 80 mg + sodium chloride 0.9% INJ 100 mL 100 mL, Rate: 10 ml/hr, Infuse over: 10 hr, Route: IV, Dosing Weight 114.545 kg, Total Volume: 100, Start date: 08/17/16 1:18:00 CDT, Duration: 72 hr, Stop date: 08/20/16 1:17:00 CDT Start Date: 08/17/16 Stop Date: 08/17/16 Status: Voided With Results Protonix 40 mg, 1 tab, Route: PO, Drug form: ECTAB, Before Breakfast, Dosing Weight 120.5 97, kg, Start date: 08/18/16 7:30:00 CDT, Duration: 30 day, Stop date: 09/16/16 7:30:00 CDT Notes: Tablet should not be chewed or crushed.(Same as: Protonix) Start Date: 08/18/16 Stop Date: 08/18/16 Status: Discontinued Reglan 10 mg, 2 mL, Route: IVP, Drug form: INJ, ONCE, Dosing Weight 114.545, kg, Priori ty: STAT, Start date: 08/17/16 0:49:00 CDT, Stop date: 08/17/16 0:49:00 CDT Notes: (Same as: Reglan) Start Date: 08/17/16 Stop Date: 08/17/16 Status: Completed remove patch 1 patch, Route: TOP, Bedtime, Drug form: ERFILM, Start date: 08/18/16 21:00:00 C DT, Duration: 30 day, Stop date: 09/16/16 21:00:00 CDT Notes: Remove patch 12 hours after application each day. Start Date: 08/18/16 Stop Date: 08/18/16 Status: Canceled Saline Flush 0.9% 10 mL, Route: IVP, Drug Form: INJ, Dosing Weight 114.545, kg, PRN, PRN Line Flus h, Start date: 08/17/16 1:18:00 CDT, Duration: 30 day, Stop date: 09/16/16 1:17: 00 CDT Notes: (Same as: BD Posiflush) Start Date: 08/17/16 Stop Date: 08/18/16 Status: Discontinued scopolamine 1.5 mg transdermal film 1 patch, Route: TOP, Drug Form: ERFILM, Dosing Weight 114.545, kg, Q72H, Apply b ehind ear. Avoid use in elderly., Start date: 08/17/16 6:00:00 CDT, Duration: 3 0 day, Stop date: 09/13/16 6:00:00 CDT Notes: Change patch every 72 hours (Same as: Transderm-Scop) Start Date: 08/17/16 Stop Date: 08/18/16 Status: Discontinued senna 17.2 mg, 2 tab, Route: PO, Drug Form: TAB, Dosing Weight 114.545, kg, Bedtime, S tart date: 08/17/16 21:00:00 CDT, Duration: 30 day, Stop date: 09/15/16 21:00:00 CDT Notes: (Same as: Senokot) Start Date: 08/17/16 Stop Date: 08/18/16 Status: Discontinued sevelamer 0.8 gm, 1 tab, Route: PO, Drug form: TAB, Daily, Dosing Weight 114.545, kg, Star t date: 08/17/16 9:00:00 CDT, Duration: 30 day, Stop date: 09/15/16 9:00:00 CDT Notes: Non-Formulary DrugGive Renagel (sevelamer) 1 hour before or 3 hours after other meds"Do Not Crush" (Same as: Renagel) Start Date: 08/17/16 Stop Date: 08/18/16 Status: Discontinued sodium chloride 0.9% 1000 ml INJ 1,000 mL 1,000 mL, Rate: 150 ml/hr, Infuse over: 6.7 hr, Route: IV, Dosing Weight 114.545 kg, Total Volume: 1,000, Start date: 08/17/16 2:30:00 CDT, Duration: 30 day, St op date: 09/16/16 2:29:00 CDT Start Date: 08/17/16 Stop Date: 08/17/16 Status: Discontinued sucralfate 1 g/10 mL oral suspension 1 gm = 10 mL, PO, QID, # 560 mL, 0 Refill(s), Pharmacy: [id number] Start Date: 08/17/16 Stop Date: 08/31/16 Status: Ordered tramadol 50 mg, 1 tab, Route: PO, Drug form: TAB, Q6Hnow, Dosing Weight 114.545, kg, Star t date: 08/17/16 6:00:00 CDT, Stop date: 09/16/16 0:00:00 CDT Notes: Not to exceed 400mg/day. (Same As: Ultram) Start Date: 08/17/16 Stop Date: 08/18/16 Status: Discontinued Zofran 4 mg, 2 mL, Route: IVP, Drug form: INJ, ONCE, Dosing Weight 114.545, kg, Priorit y: STAT, Start date: 08/17/16 0:10:00 CDT, Stop date: 08/17/16 0:10:00 CDT Notes: (Same as: Zofran) MEDICATION WASTE Product Size: 4 mgProduct Was savana: _0__ mg Start Date: 08/17/16 Stop Date: 08/17/16 Status: Discontinued Zofran 4 mg, 2 mL, Route: IVP, Drug form: INJ, Q8H, Dosing Weight 120.597, kg, PRN Naus ea, Start date: 08/17/16 11:03:00 CDT, Duration: 30 day, Stop date: 09/16/16 11: 02:00 CDT Notes: (Same as: Zofran) MEDICATION WASTE Product Size: 4 mgProduct Was savana: ___ mg Start Date: 08/17/16 Stop Date: 08/18/16 Status: Discontinued Results ELECTROLYTES Most recent to 1 oldest [Reference Range]: Sodium Lvl [135-145 139 mEq/L mEq/L] (08/17/16 12:29 AM) Potassium Lvl 4.9 mEq/L [3.5-5.1 mEq/L] (08/17/16 12:29 AM) Chloride Lvl [95-109 110 mEq/L mEq/L] *HI* (08/17/16 12:29 AM) CO2 [24-32 mEq/L] 20 mEq/L *LOW* (08/17/16 12:29 AM) AGAP [10.0-20.0 13.9 mEq/L mEq/L] (08/17/16 12:29 AM) CHEM PANEL Most recent to 1 oldest [Reference Range]: Creatinine Lvl 3.09 mg/dL [0.50-1.40 mg/dL] *HI* (08/17/16 12:29 AM) eGFR 21 mL/min/1.73m2 1 *NA* (08/17/16 12:29 AM) BUN [7-22 mg/dL] 30 mg/dL *HI* (08/17/16 12:29 AM) Glucose Lvl [70-99 277 mg/dL mg/dL] *HI* (08/17/16 12:29 AM) Total Protein 7.0 g/dL [6.4-8.4 g/dL] (08/17/16 12:29 AM) Albumin Lvl [3.5-5.0 1.7 g/dL g/dL] *LOW* (08/17/16 12: AM) Globulin [2.7-4.2 5.3 g/dL g/dL] *HI* (08/17/16 12: AM) A/G Ratio [0.7-1.6] 0.3 *LOW* (08/17/16 12: AM) Calcium Lvl 8.0 mg/dL [8.5-10.5 mg/dL] *LOW* (08/17/16 12: AM) ALT [0-65 unit/L] 15 unit/L (08/17/16 12: AM) AST [0-37 unit/L] 7 unit/L (08/17/16 12: AM) Alk Phos [39-136 194 unit/L unit/L] *HI* (08/17/16 12:29 AM) Bili Total [0.2-1.3 0.1 mg/dL mg/dL] *LOW* (08/17/16 12:29 AM) Bili Direct [0.0-0.3 0.0 mg/dL mg/dL] (08/17/16 12:29 AM) Bili Indirect 0.1 mg/dL [0.0-1.0 mg/dL] (08/17/16 12:29 AM) Lipase Lvl [73-393 224 unit/L unit/L] (08/16/16 9:26 PM) 1Result Comment: The eGFR is calculated [...] oldest [Reference Range]: U Preg [Negative] Negative (08/17/16 12:04 AM) URINE AND STOOL Most recent to 1 oldest [Reference Range]: UA Turbidity [Clear] Slight Cloudy (08/17/16 12:04 AM) UA Color [Yellow] Yellow *NA* (08/17/16 12:04 AM) UA pH [5.0-8.0] 6.5 (08/17/16 12:04 AM) UA Spec Grav 1.015 [<=1.030] (08/17/16 12:04 AM) UA Glucose [Negative 500 mg/dL mg/dL] *ABN* (08/17/16 12:04 AM) UA Blood [Negative] Moderate *ABN* (08/17/16 12:04 AM) UA Ketones Negative [Negative] *NA* (08/17/16 12:04 AM) UA Protein [Negative >=300 mg/dL mg/dL] *ABN* (08/17/16 12:04 AM) UA Urobilinogen 0.2 EU/dL [0.1-1.0 EU/dL] (08/17/16 12:04 AM) UA Bili [Negative] Negative *NA* (08/17/16 12:04 AM) UA Leuk Est Negative [Negative] (08/17/16 12:04 AM) UA Nitrite Negative [Negative] (08/17/16 12:04 AM) UA WBC [None Seen 0-2 /HPF /HPF] (08/17/16 12:04 AM) UA RBC [0-2 /HPF] 3-5 /HPF *ABN* (08/17/16 12:04 AM) UA Bacteria [None Occasional /HPF Seen /HPF] (08/17/16 12:04 AM) UA Sq Epi [Few /LPF] Rare /LPF (08/17/16 12:04 AM) HEMATOLOGY Most recent to 1 oldest [Reference Range]: WBC [3.7-10.4 K/CMM] 7.7 K/CMM (08/17/16 AM) RBC [4.20-5.40 3.76 M/CMM M/CMM] *LOW* (08/17/16 AM) Hgb [12.0-16.0 g/dL] 10.8 g/dL *LOW* (08/17/16 AM) Hct [36.0-48.0 %] 33.2 % *LOW* (08/17/16 AM) MCV [80.0-98.0 fL] 88.4 fL (08/17/16 AM) MCH [27.0-31.0 pg] 28.8 pg (08/17/16 AM) MCHC [32.0-36.0 32.6 g/dL g/dL] (08/17/16 AM) RDW [11.5-14.5 %] 14.7 % *HI* (08/17/16 AM) Platelet [133-450 318 K/CMM K/CMM] (08/17/16 AM) MPV [7.4-10.4 fL] 8.2 fL (08/17/16 AM) Segs [45.0-75.0 %] 58.0 % (08/17/16 AM) Lymphocytes 32.6 % [20.0-40.0 %] (08/17/16 AM) Monocytes [2.0-12.0 6.5 % %] (08/17/16 AM) Eosinophils [0.0-4.0 1.9 % %] (08/17/16 AM) Basophils [0.0-1.0 1.0 % %] (08/17/16 AM) Segs-Bands # 4.4 K/CMM [1.5-8.1 K/CMM] (08/17/1629 AM) Lymphocytes # 2.5 K/CMM [1.0-5.5 K/CMM] (08/17/16:29 AM) Monocytes # [0.0-0.8 0.5 K/CMM K/CMM] (08/17/16 12:29 AM) Eosinophils # 0.1 K/CMM [0.0-0.5 K/CMM] (08/17/16 12:29 AM) Basophils # [0.0-0.2 0.1 K/CMM K/CMM] (08/17/16 12:29 AM) PT [12.0-14.7 12.2 seconds seconds] (08/17/16 12:29 AM) INR [0.85-1.17] 0.89 (08/17/16 12:29 AM) PTT [22.9-35.8 30.1 seconds seconds] (08/17/16 12:29 AM) Immunizations Given and Recorded Vaccine Date [...] drinker Assessment and Plan Extracted from: Title: GI Consult Note Author: Zhanna Robin Date: 08/17/16 Gastroenterology Service: Consult Note Reason [...] NSAIDs, blood thinners. Pt was recently at [facility] for abd pain and non [...] negative except per HPI Vitals and Temp: VitalsTmp(F)[id number] 08/17 10:[id number]--- 08/17 10:00----[id number]--- 08/17 09:00----[id number]--- 08/17 08:00----[id number]--- 08/17 07:00----[id number]--- 24 Hr Tmax: 99.0F (37.22c) at 08/16 21:1 6Vital Signs are the last 5 in [...] Salomon MD PGY III Internal Medicine Pager: [phone] Patient was seen and examined by me. I have discussed the patient with Dr. Salomon. I agree with the above assessment and plan with the following addendum. Please see EGD note for further details. Leo Mancini MD [employer] Gastroenterology, Hepatology and Nutrition Extracted from: Title: History and Physical Author: Isidro Cook MD [...] her Gold Card to seek care at [facility]. Prophylaxis Ambulation Disposition Pending EGD in the morning Joyce [phone]
--- OUTSIDE RECORDS SUMMARY | 2019-09-10 20:14 | XMS REPORT | Summary of Care ---
Author Author [facility] Organization [facility] Address Unknown Phone Unavailable Encounter PRIMITIVO Mariano(SANGITA) [id number] Date(s): 08/24/16 - 08/25/16 [facility] [address] [employer] provided by [facility] [employer] [facility] [employer] [place] [address]- Discharge Diagnosis: Cholelithiasis Discharge Disposition: Home or Self Care Attending Physician: Sandra Wolfe MD Vital Signs 1 2 3 Most recent to oldest [Reference Range]: 170.18 cm (08/24/16 8:46 PM) Height 98.7 DegF (08/25/16 2:12 AM) 98.7 DegF (08/24/16 8:46 PM) Temperature Oral [96.4-99.1 DegF] 173/100 mmHg *HI* (08/25/16 2:12 AM) 196/96 mmHg *HI* (08/25/16 1:30 AM) 196/108 mmHg *HI* (08/25/16 12:44 AM) Blood Pressure [90-140/60-90 mmHg] 18 BRMIN (08/25/16 2:12 AM) 18 BRMIN (08/25/16 1:30 AM) 18 BRMIN (08/24/16 10:26 PM) Respiratory Rate [14-20 BRMIN] 107 bpm *HI* (08/24/16 10:26 PM) 108 bpm *HI* (08/24/16 8:46 PM) Peripheral Pulse Rate [60-100 bpm] 114.091 kg (08/24/16 8:46 PM) Weight 39.39 m2 (08/24/16 8:46 PM) Body Mass Index Problem List Condition Effective Dates Status Health Status Informan t Anxiety(Confirmed) Resolved CHF - Congestive Active heart failure(Confirmed) Chronic Resolved depression(Confirmed ) DM (diabetes Active mellitus)(Confirmed) Biliary Active colic(Confirmed) Below knee Active amputation status(Confirmed)1 HTN - Active Hypertension(Confirm ed) Klebsiella(Confirmed 03/26/16 Active )2, 3 MRSA(Confirmed)4, 5, 02/23/16 Active 6 1Right sided BKA 2Blood, 03/29/2016 3Problem added by Discern Expert. 4right foot aspirate - 02/23/16 5nares - 02/19/16 6Problem added by Discern Expert. Allergies, Adverse Reactions, Alerts Substance Reaction Severity Status NKDA Active Medications clindamycin 900 mg, Route: IVPB, ONCE, Dosing Weight 114.091, kg, Priority: STAT, Start date : 08/24/16 21:58:00 CDT, Stop date: 08/24/16 21:58:00 CDT Start Date: 08/24/16 Stop Date: 08/24/16 Status: Completed Dilaudid 1 mg, Route: IV, ONCE, Dosing Weight 114.091, kg, Start date: 08/24/16 23:26:00 CDT, Stop date: 08/24/16 23:26:00 CDT Start Date: 08/24/16 Stop Date: 08/24/16 Status: Completed Isolyte S PH-7.4 (Bolus) IV 1,000 mL, 1000 ml/hr, Route: IV, Drug Form: SOLN, Dosing Weight 114.091, kg, ONC E, Start date: 08/24/16 23:40:00 CDT, Stop date: 08/24/16 23:40:00 CDT Notes: (Same as: Isolyte S PH 7.4) Start Date: 08/24/16 Stop Date: 08/25/16 Status: Completed morphine Sulfate 4 mg, 1 mL, Route: IVP, Drug form: INJ, ONCE, Dosing Weight 114.091, kg, Priorit y: STAT, Start date: 08/25/16 0:58:00 CDT, Stop date: 08/25/16 0:58:00 CDT Notes: (Same as:MORPhine Sulfate) Start Date: 08/25/16 Stop Date: 08/25/16 Status: Completed morphine Sulfate 4 mg, Route: IVP, ONCE, Dosing Weight 114.091, kg, Priority: STAT, Start date: 0 08/24/16 21:56:00 CDT, Stop date: 08/24/16 21:56:00 CDT Start Date: 08/24/16 Stop Date: 08/24/16 Status: Completed ondansetron 4 mg, 2 mL, Route: IVP, Drug form: INJ, ONCE, Dosing Weight 114.091, kg, Priorit y: STAT, Start date: 08/25/16 0:58:00 CDT, Stop date: 08/25/16 0:58:00 CDT Notes: (Same as: Zofran) MEDICATION WASTE Product Size: 4 mgProduct Was savana: ___ mg Start Date: 08/25/16 Stop Date: 08/25/16 Status: Completed ursodiol 300 mg oral capsule 300 mg = 1 cap, PO, BID, # 180 cap, 0 Refill(s) Start Date: 08/25/16 Status: Ordered Zofran 4 mg, Route: IVP, Drug form: INJ, ONCE, Dosing Weight 114.091, kg, Priority: STA T, Start date: 08/24/16 21:56:00 CDT, Stop date: 08/24/16 21:56:00 CDT Start Date: 08/24/16 Stop Date: 08/24/16 Status: Completed Results ELECTROLYTES Most recent to 1 oldest [Reference Range]: Sodium Lvl [135-145 140 mEq/L mEq/L] (08/24/16 9:07 PM) Potassium Lvl 5.5 mEq/L [3.5-5.1 mEq/L] *HI* (08/24/16 9:07 PM) Chloride Lvl [95-109 110 mEq/L mEq/L] *HI* (08/24/16 9:07 PM) CO2 [24-32 mEq/L] 22 mEq/L *LOW* (08/24/16 9:07 PM) AGAP [10.0-20.0 13.5 mEq/L mEq/L] (08/24/16 9:07 PM) CHEM PANEL Most recent to 1 oldest [Reference Range]: Creatinine Lvl 3.12 mg/dL [0.50-1.40 mg/dL] *HI* (08/24/16 9:07 PM) eGFR 20 mL/min/1.73m2 1 *NA* (08/24/16 9:07 PM) BUN [7-22 mg/dL] 25 mg/dL *HI* (08/24/16:07 PM) Glucose Lvl [70-99 188 mg/dL mg/dL] *HI* (08/24/16 9:07 PM) Total Protein 6.6 g/dL [6.4-8.4 g/dL] (08/24/16:07 PM) Albumin Lvl [3.5-5.0 1.7 g/dL g/dL] *LOW* (08/24/16:07 PM) Globulin [2.7-4.2 4.9 g/dL g/dL] *HI* (08/24/16: PM) A/G Ratio [0.7-1.6] 0.3 *LOW* (08/24/16:07 PM) Calcium Lvl 8.2 mg/dL [8.5-10.5 mg/dL] *LOW* (08/24/16 9:07 PM) ALT [0-65 unit/L] 12 unit/L (08/24/16 9:07 PM) AST [0-37 unit/L] 9 unit/L (08/24/16 9:07 PM) Alk Phos [39-136 156 unit/L unit/L] *HI* (08/24/16 9:07 PM) Bili Total [0.2-1.3 0.2 mg/dL mg/dL] (08/24/16:07 PM) Bili Direct [0.0-0.3 0.0 mg/dL mg/dL] (08/24/16 9:07 PM) Bili Indirect 0.2 mg/dL [0.0-1.0 mg/dL] (08/24/16 9:07 PM) Lipase Lvl [73-393 76 unit/L unit/L] (08/24/16 9:07 PM) 1Result Comment: The eGFR is calculated [...] oldest [Reference Range]: U Preg [Negative] Negative (08/24/16 11:30 PM) URINE AND STOOL Most recent to 1 oldest [Reference Range]: UA Turbidity [Clear] Slight Cloudy (08/24/16 11:30 PM) UA Color [Yellow] Yellow *NA* (08/24/16 11:30 PM) UA pH [5.0-8.0] 7.0 (08/24/16 11:30 PM) UA Spec Grav 1.020 [<=1.030] (08/24/16 11:30 PM) UA Glucose [Negative 250 mg/dL mg/dL] *ABN* (08/24/16 11:30 PM) UA Blood [Negative] Small *ABN* (08/24/16 11:30 PM) UA Ketones Negative [Negative] *NA* (08/24/16 11:30 PM) UA Protein [Negative >=300 mg/dL mg/dL] *ABN* (08/24/16 11:30 PM) UA Urobilinogen 0.2 EU/dL [0.1-1.0 EU/dL] (08/24/16 11:30 PM) UA Bili [Negative] Negative *NA* (08/24/16 11:30 PM) UA Leuk Est Negative [Negative] (08/24/16 11:30 PM) UA Nitrite Negative [Negative] (08/24/16 11:30 PM) UA WBC [None Seen 0-2 /HPF /HPF] (08/24/16 11:30 PM) UA RBC [0-2 /HPF] 0-2 /HPF (08/24/16 11:30 PM) UA Bacteria [None Moderate /HPF Seen /HPF] (08/24/16 11:30 PM) UA Sq Epi [Few /LPF] Few /LPF (08/24/16 11:30 PM) HEMATOLOGY Most recent to 1 oldest [Reference Range]: WBC [3.7-10.4 K/CMM] 6.3 K/CMM (08/24/16 9:07 PM) RBC [4.20-5.40 3.53 M/CMM M/CMM] *LOW* (08/24/16 9:07 PM) Hgb [12.0-16.0 g/dL] 10.2 g/dL *LOW* (08/24/16:07 PM) Hct [36.0-48.0 %] 31.1 % *LOW* (08/24/16 9: PM) MCV [80.0-98.0 fL] 88.1 fL (08/24/16 9:07 PM) MCH [27.0-31.0 pg] 28.9 pg (08/24/16 9:07 PM) MCHC [32.0-36.0 32.9 g/dL g/dL] (08/24/16 9:07 PM) RDW [11.5-14.5 %] 14.4 % (08/24/16 9:07 PM) Platelet [133-450 359 K/CMM K/CMM] (08/24/16 9:07 PM) MPV [7.4-10.4 fL] 7.8 fL (08/24/16 9:07 PM) Segs [45.0-75.0 %] 59.0 % (08/24/16 9:07 PM) Lymphocytes 30.3 % [20.0-40.0 %] (08/24/16 9:07 PM) Monocytes [2.0-12.0 6.4 % %] (08/24/16 9:07 PM) Eosinophils [0.0-4.0 3.0 % %] (08/24/16 9:07 PM) Basophils [0.0-1.0 1.3 % %] *HI* (08/24/16 9:07 PM) Segs-Bands # 3.7 K/CMM [1.5-8.1 K/CMM] (08/24/16 9:07 PM) Lymphocytes # 1.9 K/CMM [1.0-5.5 K/CMM] (08/24/16 9:07 PM) Monocytes # [0.0-0.8 0.4 K/CMM K/CMM] (08/24/16 9:07 PM) Eosinophils # 0.2 K/CMM [0.0-0.5 K/CMM] (08/24/16 9:07 PM) Basophils # [0.0-0.2 0.1 K/CMM K/CMM] (08/24/16 9:07 PM) Immunizations Given and Recorded Vaccine Date [...]
--- OUTSIDE RECORDS SUMMARY | 2019-09-10 20:14 | XMS REPORT | Summary of Care ---
Author Author [facility] Organization [facility] Address Unknown Phone Unavailable Encounter PRIMITIVO Mariano(SANGITA) [id number] Date(s): 08/11/16 - 08/11/16 [facility] [address] [employer] provided by [employer] [place] [address]- Discharge Diagnosis: Right sided abdominal pain Discharge Disposition: Home or Self Care Attending Physician: Ever Cardenas MD Vital Signs 1 2 3 Most recent to oldest [Reference Range]: 170.18 cm (08/11/16 12:46 AM) Height 98.2 DegF (08/11/16 4:49 AM) 98.5 DegF (08/11/16 12:46 AM) Temperature Oral [96.4-99.1 DegF] 217/124 mmHg *HI* (08/11/16 4:49 AM) 228/122 mmHg *HI* (08/11/16 4:04 AM) 137/92 mmHg (08/11/16 3:04 AM) Blood Pressure [90-140/60-90 mmHg] 16 BRMIN (08/11/16 4:49 AM) 20 BRMIN (08/11/16 4:04 AM) 18 BRMIN (08/11/16 3:04 AM) Respiratory Rate [14-20 BRMIN] 112 bpm *HI* (08/11/16 12:46 AM) Peripheral Pulse Rate [60-100 bpm] 114.545 kg (08/11/16 12:46 AM) Weight 39.55 m2 (08/11/16 12:46 AM) Body Mass Index Problem List Condition [...] Dosing Weight 114.545, kg, ONCE, STAT, Start d ate: 08/11/16 4:13:00 CDT, Stop date: 08/11/16 4:13:00 CDT Start Date: 08/11/16 Stop Date: 08/11/16 Status: Completed Isolyte S PH-7.4 (Bolus) IV 1,000 mL, 1000 ml/hr, Route: IV, Drug Form: SOLN, Dosing Weight 114.545, kg, ONC E, STAT, Start date: 08/11/16 1:56:00 CDT, Stop date: 08/11/16 1:56:00 CDT, Bolu s Dose Infuse over 1 hour Notes: (Same as: Isolyte S PH 7.4) Start Date: 08/11/16 Stop Date: 08/11/16 Status: Completed ketOROLAC 15 mg/mL injectable solution 15 mg, 1 mL, Route: IV, Drug form: INJ, ONCE, Dosing Weight 114.545, kg, Start d ate: 08/11/16 2:14:00 CDT, Stop date: 08/11/16 2:14:00 CDT Notes: (Same as:Toradol) IV bolus must be given >15 seconds. Give IM administration slowly and deeply into the muscle. Not for use > 4 days. Start Date: 08/11/16 Stop Date: 08/11/16 Status: Discontinued morphine Sulfate 4 mg, Route: IVP, ONCE, Dosing Weight 114.545, kg, Priority: STAT, Start date: 0 08/11/16 4:13:00 CDT, Stop date: 08/11/16 4:13:00 CDT Start Date: 08/11/16 Stop Date: 08/11/16 Status: Completed morphine Sulfate 4 mg, 1 mL, Route: IVP, Drug form: INJ, ONCE, Dosing Weight 114.545, kg, Priorit y: STAT, Start date: 08/11/16 1:56:00 CDT, Stop date: 08/11/16 1:56:00 CDT Notes: (Same as:MORPhine Sulfate) Start Date: 08/11/16 Stop Date: 08/11/16 Status: Discontinued morphine Sulfate 4 mg, Route: IVP, ONCE, Dosing Weight 114.545, kg, Priority: STAT, Start date: 0 08/11/16 2:58:00 CDT, Stop date: 08/11/16 2:58:00 CDT Start Date: 08/11/16 Stop Date: 08/11/16 Status: Completed Camby 7.5/325 oral tablet 1 tab, PO, Q6H, # 28 tab, 0 Refill(s) Start Date: 08/11/16 Stop Date: 09/10/16 Status: Ordered ondansetron 4 mg, 2 mL, Route: IVP, Drug form: INJ, ONCE, Dosing Weight 114.545, kg, Priorit y: STAT, Start date: 08/11/16 1:56:00 CDT, Stop date: 08/11/16 1:56:00 CDT Notes: (Same as: Luis) MEDICATION WASTE Product Size: 4 mgProduct Was savana: ___ mg Start Date: 08/11/16 Stop Date: 08/11/16 Status: Completed Results ELECTROLYTES Most recent to 1 oldest [Reference Range]: Sodium Lvl [135-145 141 mEq/L mEq/L] (08/11/16 2:10 AM) Potassium Lvl 5.5 mEq/L [3.5-5.1 mEq/L] *HI* (08/11/16 2:10 AM) Chloride Lvl [95-109 112 mEq/L mEq/L] *HI* (08/11/16 2:10 AM) CO2 [24-32 mEq/L] 20 mEq/L *LOW* (08/11/16 2:10 AM) AGAP [10.0-20.0 14.5 mEq/L mEq/L] (08/11/16 2:10 AM) CHEM PANEL Most recent to 1 oldest [Reference Range]: Creatinine Lvl 2.88 mg/dL [0.50-1.40 mg/dL] *HI* (08/11/16 2:10 AM) eGFR 22 mL/min/1.73m2 1 *NA* (08/11/16 2:10 AM) BUN [7-22 mg/dL] 25 mg/dL *HI* (08/11/16 2:10 AM) B/C Ratio [6-25] 9 (08/11/16 2:10 AM) Glucose Lvl [70-99 174 mg/dL mg/dL] *HI* (08/11/16 2:10 AM) Total Protein 6.6 g/dL [6.4-8.4 g/dL] (08/11/16 2:10 AM) Albumin Lvl [3.5-5.0 1.5 g/dL g/dL] *LOW* (08/11/16 2:10 AM) Globulin [2.7-4.2 5.1 g/dL g/dL] *HI* (08/11/16 2:10 AM) A/G Ratio [0.7-1.6] 0.3 *LOW* (08/11/16 2:10 AM) Calcium Lvl 7.8 mg/dL [8.5-10.5 mg/dL] *LOW* (08/11/16 2:10 AM) ALT [0-65 unit/L] 12 unit/L (08/11/16 2:10 AM) AST [0-37 unit/L] 14 unit/L (08/11/16 2:10 AM) Alk Phos [39-136 169 unit/L unit/L] *HI* (08/11/16 2:10 AM) Bili Total [0.2-1.3 0.2 mg/dL mg/dL] (08/11/16 2:10 AM) Lipase Lvl [73-393 153 unit/L unit/L] (08/11/16 2:10 AM) Lactic Acid WB 0.7 mmol/L [0.5-2.2 mmol/L] (08/11/16 2:10 AM) 1Result Comment: The eGFR is calculated [...] oldest [Reference Range]: UA Turbidity [Clear] Clear (08/11/16 2:10 AM) UA Color [Yellow] Yellow *NA* (08/11/16 2:10 AM) UA pH [5.0-8.0] 7.0 (08/11/16 2:10 AM) UA Spec Grav 1.020 [<=1.030] (08/11/16 2:10 AM) UA Glucose [Negative 250 mg/dL mg/dL] *ABN* (08/11/16 2:10 AM) UA Blood [Negative] Small *ABN* (08/11/16 2:10 AM) UA Ketones Negative [Negative] *NA* (08/11/16 2:10 AM) UA Protein [Negative >=300 mg/dL mg/dL] *ABN* (08/11/16 2:10 AM) UA Urobilinogen 0.2 EU/dL [0.1-1.0 EU/dL] (08/11/16 2:10 AM) UA Bili [Negative] Negative *NA* (08/11/16 2:10 AM) UA Leuk Est Negative [Negative] (08/11/16 2:10 AM) UA Nitrite Negative [Negative] (08/11/16 2:10 AM) UA WBC [None Seen 0-2 /HPF /HPF] (08/11/16 2:10 AM) UA RBC [0-2 /HPF] 3-5 /HPF *ABN* (08/11/16 2:10 AM) UA Bacteria [None Occasional /HPF Seen /HPF] (08/11/16 2:10 AM) UA Sq Epi [Few /LPF] Rare /LPF (08/11/16 2:10 AM) HEMATOLOGY Most recent to 1 oldest [Reference Range]: WBC [3.7-10.4 K/CMM] 8.0 K/CMM (08/11/16 2:10 AM) RBC [4.20-5.40 3.36 M/CMM M/CMM] *LOW* (08/11/16 2:10 AM) Hgb [12.0-16.0 g/dL] 9.7 g/dL *LOW* (08/11/16 2:10 AM) Hct [36.0-48.0 %] 30.0 % *LOW* (08/11/16 2:10 AM) MCV [80.0-98.0 fL] 89.3 fL (08/11/16 2:10 AM) MCH [27.0-31.0 pg] 28.9 pg (08/11/16 2:10 AM) MCHC [32.0-36.0 32.3 g/dL g/dL] (08/11/16 2:10 AM) RDW [11.5-14.5 %] 14.5 % (08/11/16 2:10 AM) Platelet [133-450 326 K/CMM K/CMM] (08/11/16 2:10 AM) MPV [7.4-10.4 fL] 9.2 fL (08/11/16 2:10 AM) Segs [45.0-75.0 %] 57.1 % (08/11/16 2:10 AM) Lymphocytes 33.4 % [20.0-40.0 %] (08/11/16 2:10 AM) Monocytes [2.0-12.0 6.1 % %] (08/11/16 2:10 AM) Eosinophils [0.0-4.0 2.2 % %] (08/11/16 2:10 AM) Basophils [0.0-1.0 1.2 % %] *HI* (08/11/16 2:10 AM) Segs-Bands # 4.5 K/CMM [1.5-8.1 K/CMM] (08/11/16 2:10 AM) Lymphocytes # 2.7 K/CMM [1.0-5.5 K/CMM] (08/11/16 2:10 AM) Monocytes # [0.0-0.8 0.5 K/CMM K/CMM] (08/11/16 2:10 AM) Eosinophils # 0.2 K/CMM [0.0-0.5 K/CMM] (08/11/16 2:10 AM) Basophils # [0.0-0.2 0.1 K/CMM K/CMM] (08/11/16 2:10 AM) Immunizations Given and Recorded Vaccine Date [...]
--- OUTSIDE RECORDS SUMMARY | 2019-09-10 20:14 | XMS REPORT | Summary of Care ---
Author Author [facility] Organization [facility] Address Unknown Phone Unavailable Encounter PRIMITIVO Mariano(SANGITA) [id number] Date(s): 08/06/16 - 08/06/16 [facility] [address] [employer] provided by [employer] [place] [address]- Discharge Diagnosis: Cholelithiasis Discharge Disposition: Home or Self Care Attending Physician: Naeem Pena MD Vital Signs 1 2 3 Most recent to oldest [Reference Range]: 172.72 cm (08/06/16 3:48 AM) Height 97.8 DegF (08/06/16 6:24 AM) 98.2 DegF (08/06/16 3:48 AM) Temperature Oral [96.4-99.1 DegF] 196/90 mmHg *HI* (08/06/16 6:24 AM) 212/111 mmHg *HI* (08/06/16 6:00 AM) 199/98 mmHg *HI* (08/06/16 5:46 AM) Blood Pressure [90-140/60-90 mmHg] 19 BRMIN (08/06/16 6:24 AM) 20 BRMIN (08/06/16 6:00 AM) 19 BRMIN (08/06/16 5:46 AM) Respiratory Rate [14-20 BRMIN] 106 bpm *HI* (08/06/16 3:48 AM) Peripheral Pulse Rate [60-100 bpm] 114.545 kg (08/06/16 3:48 AM) Weight 38.4 m2 (08/06/16 3:48 AM) Body Mass Index Problem List Condition [...] Severity Status NKDA Active Medications acetaminophen-codeine 300 mg-15 mg oral tablet 1 tab, PO, Q4H, PRN Pain, X 7 day, # 42 tab, 0 Refill(s) Start Date: 08/06/16 Stop Date: 08/13/16 Status: Ordered carvedilol 25 mg oral tablet 25 mg = 1 tab, PO, BID, # 180 tab, 1 Refill(s) Start Date: 08/06/16 Status: Ordered labetalol 10 mg, 2 mL, Route: IVP, Drug form: INJ, ONCE, Dosing Weight 114.545, kg, Start date: 08/06/16 5:31:00 CDT, Stop date: 08/06/16 5:31:00 CDT Start Date: 08/06/16 Stop Date: 08/06/16 Status: Completed morphine Sulfate 4 mg, Route: IVP, ONCE, Dosing Weight 114.545, kg, Priority: STAT, Start date: 0 08/06/16 4:42:00 CDT, Stop date: 08/06/16 4:42:00 CDT Start Date: 08/06/16 Stop Date: 08/06/16 Status: Completed morphine Sulfate 4 mg, 1 mL, Route: IVP, Drug form: INJ, ONCE, Dosing Weight 114.545, kg, Priorit y: STAT, Start date: 08/06/16 4:11:00 CDT, Stop date: 08/06/16 4:11:00 CDT Notes: (Same as:MORPhine Sulfate) Start Date: 08/06/16 Stop Date: 08/06/16 Status: Completed Sodium Chloride 0.9% (Bolus) IV 1,000 mL, 1,000 ml/hr, Infuse Over: 1 hr, Route: IV, ONCE, Priority: STAT, Dosin g Weight 114.545 kg, Start date: 08/06/16 4:38:00 CDT, Duration: 1 doses or time s, Stop date: 08/06/16 4:38:00 CDT Start Date: 08/06/16 Stop Date: 08/06/16 Status: Completed Valium 5 mg, 1 mL, Route: IVP, Drug form: INJ, ONCE, Dosing Weight 114.545, kg, Priorit y: STAT, Start date: 08/06/16 5:53:00 CDT, Stop date: 08/06/16 5:53:00 CDT Notes: (Same as: Valium)WASTE: F/P - Black; E - White/Blue Start Date: 08/06/16 Stop Date: 08/06/16 Status: Completed Valium 5 mg, 1 mL, Route: IVP, Drug form: INJ, ONCE, Dosing Weight 114.545, kg, Priorit y: STAT, Start date: 08/06/16 4:11:00 CDT, Stop date: 08/06/16 4:11:00 CDT Notes: (Same as: Valium)WASTE: F/P - Black; E - White/Blue Start Date: 08/06/16 Stop Date: 08/06/16 Status: Completed Valium 5 mg oral tablet 5 mg = 1 tab, PO, QID, PRN Anxiety, X 7 day, # 28 tab, 0 Refill(s) Start Date: 08/06/16 Stop Date: 08/13/16 Status: Ordered Results ELECTROLYTES Most recent to 1 oldest [Reference Range]: Sodium Lvl [135-145 140 mEq/L mEq/L] (08/06/16 4:17 AM) Potassium Lvl 4.4 mEq/L [3.5-5.1 mEq/L] (08/06/16 4:17 AM) Chloride Lvl [95-109 112 mEq/L mEq/L] *HI* (08/06/16 4:17 AM) CO2 [24-32 mEq/L] 19 mEq/L *LOW* (08/06/16 4:17 AM) AGAP [10.0-20.0 13.4 mEq/L mEq/L] (08/06/16 4:17 AM) CHEM PANEL Most recent to 1 oldest [Reference Range]: Creatinine Lvl 2.92 mg/dL [0.50-1.40 mg/dL] *HI* (08/06/16 4:17 AM) eGFR 22 mL/min/1.73m2 1 *NA* (08/06/16 4:17 AM) BUN [7-22 mg/dL] 25 mg/dL *HI* (08/06/16 4:17 AM) Glucose Lvl [70-99 143 mg/dL mg/dL] *HI* (08/06/16 4:17 AM) Total Protein 6.3 g/dL [6.4-8.4 g/dL] *LOW* (08/06/16 4:17 AM) Albumin Lvl [3.5-5.0 1.5 g/dL g/dL] *LOW* (08/06/16 4:17 AM) Globulin [2.7-4.2 4.8 g/dL g/dL] *HI* (08/06/16 4:17 AM) A/G Ratio [0.7-1.6] 0.3 *LOW* (08/06/16 4:17 AM) Calcium Lvl 7.8 mg/dL [8.5-10.5 mg/dL] *LOW* (08/06/16 4:17 AM) ALT [0-65 unit/L] 12 unit/L (08/06/16 4:17 AM) AST [0-37 unit/L] 8 unit/L (08/06/16 4:17 AM) Alk Phos [39-136 166 unit/L unit/L] *HI* (08/06/16 4:17 AM) Bili Total [0.2-1.3 0.2 mg/dL mg/dL] (08/06/16 4:17 AM) Bili Direct [0.0-0.3 0.1 mg/dL mg/dL] (08/06/16 4:17 AM) Bili Indirect 0.1 mg/dL [0.0-1.0 mg/dL] (08/06/16 4:17 AM) Lipase Lvl [73-393 117 unit/L unit/L] (08/06/16 5:15 AM) 1Result Comment: The eGFR is calculated [...] [Reference Range]: WBC [3.7-10.4 K/CMM] 7.9 K/CMM (08/06/16 4:17 AM) RBC [4.20-5.40 3.39 M/CMM M/CMM] *LOW* (08/06/16 4:17 AM) Hgb [12.0-16.0 g/dL] 9.8 g/dL *LOW* (08/06/16: AM) Hct [36.0-48.0 %] 29.6 % *LOW* (08/06/16 4:17 AM) MCV [80.0-98.0 fL] 87.5 fL (08/06/16 4: AM) MCH [27.0-31.0 pg] 29.1 pg (08/06/16 4:17 AM) MCHC [32.0-36.0 33.2 g/dL g/dL] (08/06/16 4:17 AM) RDW [11.5-14.5 %] 14.2 % (08/06/16 4:17 AM) Platelet [133-450 370 K/CMM K/CMM] (08/06/16 4:17 AM) MPV [7.4-10.4 fL] 8.0 fL (08/06/16 4:17 AM) Segs [45.0-75.0 %] 49.8 % (08/06/16 4:17 AM) Lymphocytes 39.7 % [20.0-40.0 %] (08/06/16 4:17 AM) Monocytes [2.0-12.0 7.7 % %] (08/06/16 4:17 AM) Eosinophils [0.0-4.0 2.0 % %] (08/06/16 4:17 AM) Basophils [0.0-1.0 0.8 % %] (08/06/16 4:17 AM) Segs-Bands # 4.0 K/CMM [1.5-8.1 K/CMM] (08/06/16 4:17 AM) Lymphocytes # 3.2 K/CMM [1.0-5.5 K/CMM] (08/06/16 4:17 AM) Monocytes # [0.0-0.8 0.6 K/CMM K/CMM] (08/06/16 4:17 AM) Eosinophils # 0.2 K/CMM [0.0-0.5 K/CMM] (08/06/16 4:17 AM) Basophils # [0.0-0.2 0.1 K/CMM K/CMM] (08/06/16 4:17 AM) Immunizations Given and Recorded Vaccine Date [...]
--- OUTSIDE RECORDS SUMMARY | 2019-09-10 20:14 | XMS REPORT | Summary of Care ---
Author Author [facility] Organization [facility] Address Unknown Phone Unavailable Encounter PRIMITIVO Mariano(SANGITA) [id number] Date(s): 07/27/16 - 07/27/16 [facility] [address] [employer] provided by [facility] [employer] [facility] [employer] [place] [address]- Discharge Diagnosis: Cholelithiasis Discharge Disposition: Home or Self Care Attending Physician: Naeem Zacarias MD Vital Signs 1 2 3 Most recent to oldest [Reference Range]: 170.18 cm (07/27/16 8:26 AM) Height 98.1 DegF (07/27/16 5:23 PM) 97.9 DegF (07/27/16 3:00 PM) 97.1 DegF (07/27/16 11:38 AM) Temperature Oral [96.4-99.1 DegF] 180/102 mmHg *HI* (07/27/16 5:23 PM) 179/98 mmHg *HI* (07/27/16 3:00 PM) 177/93 mmHg *HI* (07/27/16 2:06 PM) Blood Pressure [90-140/60-90 mmHg] 16 BRMIN (07/27/16 5:23 PM) 18 BRMIN (07/27/16 3:00 PM) 16 BRMIN (07/27/16 2:06 PM) Respiratory Rate [14-20 BRMIN] 106 bpm *HI* (07/27/16 10:33 AM) 104 bpm *HI* (07/27/16 8:26 AM) Peripheral Pulse Rate [60-100 bpm] 114.545 kg (07/27/16 8:26 AM) Weight 39.55 m2 (07/27/16 8:26 AM) Body Mass Index Problem List Condition [...] Substance Reaction Severity Status NKDA Active Medications ibuprofen 800 mg, Route: PO, Drug form: TAB, ONCE, Dosing Weight 114.545, kg, Priority: ST AT, Start date: 07/27/16 16:52:00 CDT, Stop date: 07/27/16 16:52:00 CDT Start Date: 07/27/16 Stop Date: 07/27/16 Status: Completed ketOROLAC 30 mg/mL injectable solution 15 mg, Route: IVP, Drug form: INJ, ONCE, Dosing Weight 114.545, kg, Priority: ST AT, Start date: 07/27/16 8:45:00 CDT, Stop date: 07/27/16 8:45:00 CDT Start Date: 07/27/16 Stop Date: 07/27/16 Status: Discontinued morphine Sulfate 4 mg, 1 mL, Route: IVP, Drug form: INJ, ONCE, Dosing Weight 114.545, kg, Priorit y: STAT, Start date: 07/27/16 9:08:00 CDT, Stop date: 07/27/16 9:08:00 CDT Notes: (Same as:MORPhine Sulfate) Start Date: 07/27/16 Stop Date: 07/27/16 Status: Completed morphine Sulfate 4 mg, Route: IVP, ONCE, Dosing Weight 114.545, kg, Priority: STAT, Start date: 0 07/27/16 8:57:00 CDT, Stop date: 07/27/16 8:57:00 CDT Start Date: 07/27/16 Stop Date: 07/27/16 Status: Completed NS (Bolus) IV 1,000 mL, 1,000 ml/hr, Infuse Over: 1 hr, Route: IV, 1,000, Drug form: INJ, ONCE , Priority: STAT, Dosing Weight 114.545 kg, Start date: 07/27/16 9:28:00 CDT, Du ration: 1 doses or times, Stop date: 07/27/16 9:28:00 CDT Start Date: 07/27/16 Stop Date: 07/27/16 Status: Completed Tylenol with Codeine #3 oral tablet 1 tab, PO, Q6H, PRN Pain, X 7 day, # 28 tab, 0 Refill(s) Start Date: 07/27/16 Stop Date: 08/03/16 Status: Ordered Valium 5 mg, 1 mL, Route: IVP, Drug form: INJ, ONCE, Dosing Weight 114.545, kg, Priorit y: STAT, Start date: 07/27/16 9:28:00 CDT, Stop date: 07/27/16 9:28:00 CDT Notes: (Same as: Valium)WASTE: F/P - Black; E - White/Blue Start Date: 07/27/16 Stop Date: 07/27/16 Status: Completed Zofran 4 mg, 2 mL, Route: IVP, Drug form: INJ, ONCE, Dosing Weight 114.545, kg, Priorit y: STAT, Start date: 07/27/16 8:45:00 CDT, Stop date: 07/27/16 8:45:00 CDT Notes: (Same as: Zofran) MEDICATION WASTE Product Size: 4 mgProduct Was savana: ___ mg Start Date: 07/27/16 Stop Date: 07/27/16 Status: Completed Results ELECTROLYTES Most recent to 1 oldest [Reference Range]: Sodium Lvl [135-145 143 mEq/L mEq/L] (07/27/16 9:15 AM) Potassium Lvl 4.3 mEq/L [3.5-5.1 mEq/L] (07/27/16 9:15 AM) Chloride Lvl [95-109 111 mEq/L mEq/L] *HI* (07/27/16 9:15 AM) CO2 [24-32 mEq/L] 24 mEq/L (07/27/16 9:15 AM) AGAP [10.0-20.0 12.3 mEq/L mEq/L] (07/27/16 9:15 AM) CHEM PANEL Most recent to 1 oldest [Reference Range]: Creatinine Lvl 2.44 mg/dL [0.50-1.40 mg/dL] *HI* (07/27/16 9:15 AM) eGFR 27 mL/min/1.73m2 1 *NA* (07/27/16 9:15 AM) BUN [7-22 mg/dL] 20 mg/dL (07/27/16 9:15 AM) Glucose Lvl [70-99 176 mg/dL mg/dL] *HI* (07/27/16 9:15 AM) Total Protein 6.4 g/dL [6.4-8.4 g/dL] (07/27/16 9:15 AM) Albumin Lvl [3.5-5.0 1.7 g/dL g/dL] *LOW* (07/27/16 9:15 AM) Globulin [2.7-4.2 4.7 g/dL g/dL] *HI* (07/27/16 9:15 AM) A/G Ratio [0.7-1.6] 0.4 *LOW* (07/27/16 9:15 AM) Calcium Lvl 8.3 mg/dL [8.5-10.5 mg/dL] *LOW* (07/27/16 9:15 AM) ALT [0-65 unit/L] 14 unit/L (07/27/16 9:15 AM) AST [0-37 unit/L] 14 unit/L (07/27/16 9:15 AM) Alk Phos [39-136 107 unit/L unit/L] (07/27/16 9:15 AM) Bili Total [0.2-1.3 0.1 mg/dL mg/dL] *LOW* (07/27/16 9:15 AM) Bili Direct [0.0-0.3 0.0 mg/dL mg/dL] (07/27/16 9:15 AM) Bili Indirect 0.1 mg/dL [0.0-1.0 mg/dL] (07/27/16 9:15 AM) Lipase Lvl [73-393 84 unit/L unit/L] (07/27/16 9:15 AM) Lactic Acid WB 1.0 mmol/L [0.5-2.2 mmol/L] (07/27/16 9:15 AM) 1Result Comment: The eGFR is calculated [...] 1 oldest [Reference Range]: WBC [3.7-10.4 K/CMM] 7.5 K/CMM (07/27/16 9:15 AM) RBC [4.20-5.40 3.30 M/CMM M/CMM] *LOW* (07/27/16 9:15 AM) Hgb [12.0-16.0 g/dL] 9.5 g/dL *LOW* (07/27/16:15 AM) Hct [36.0-48.0 %] 28.8 % *LOW* (07/27/16 9:15 AM) MCV [80.0-98.0 fL] 87.3 fL (07/27/16 9:15 AM) MCH [27.0-31.0 pg] 28.8 pg (07/27/16 9:15 AM) MCHC [32.0-36.0 33.1 g/dL g/dL] (07/27/16 9:15 AM) RDW [11.5-14.5 %] 14.2 % (07/27/16 9:15 AM) Platelet [133-450 439 K/CMM K/CMM] (07/27/16 9:15 AM) MPV [7.4-10.4 fL] 8.3 fL (07/27/16 9:15 AM) Segs [45.0-75.0 %] 71.2 % (07/27/16 9:15 AM) Lymphocytes 21.5 % [20.0-40.0 %] (07/27/16 9:15 AM) Monocytes [2.0-12.0 5.0 % %] (07/27/16 9:15 AM) Eosinophils [0.0-4.0 1.1 % %] (07/27/16 9:15 AM) Basophils [0.0-1.0 1.2 % %] *HI* (07/27/16 9:15 AM) Segs-Bands # 5.4 K/CMM [1.5-8.1 K/CMM] (07/27/16 9:15 AM) Lymphocytes # 1.6 K/CMM [1.0-5.5 K/CMM] (07/27/16 9:15 AM) Monocytes # [0.0-0.8 0.4 K/CMM K/CMM] (07/27/16 9:15 AM) Eosinophils # 0.1 K/CMM [0.0-0.5 K/CMM] (07/27/16 9:15 AM) Basophils # [0.0-0.2 0.1 K/CMM K/CMM] (07/27/16 9:15 AM) Immunizations Given and Recorded Vaccine Date [...] No. Alcohol Never Smoking Status Never smoker; Exposure to T obacco Smoke None; Cigarette Smoking Last 365 Days No; Reg Smoking Cessation Counseli ng No Assessment and Plan No data available for this section
--- OUTSIDE RECORDS SUMMARY | 2019-09-10 20:14 | XMS REPORT | Summary of Care ---
Author Author [facility] Organization [facility] Address Unknown Phone Unavailable Encounter PRIMITIVO Mariano(SANGITA) [id number] Date(s): 07/27/16 - 07/27/16 [facility] [address] [employer] provided by [employer] [place] [address]- Discharge Diagnosis: Acute cystitis Discharge Disposition: Home or Self Care Attending Physician: Sandra Wolfe MD Vital Signs 1 2 3 Most recent to oldest [Reference Range]: 170.18 cm (07/27/16 4:06 AM) Height 97.7 DegF (07/27/16 6:31 AM) Temperature Oral [96.4-99.1 DegF] 152/78 mmHg *HI* (07/27/16 6:31 AM) 145/91 mmHg *HI* (07/27/16 5:23 AM) 146/101 mmHg *HI* (07/27/16 4:06 AM) Blood Pressure [90-140/60-90 mmHg] 20 BRMIN (07/27/16 6:31 AM) 20 BRMIN (07/27/16 5:23 AM) 20 BRMIN (07/27/16 4:06 AM) Respiratory Rate [14-20 BRMIN] 113 bpm *HI* (07/27/16 6:31 AM) 102 bpm *HI* (07/27/16 5:23 AM) 113 bpm *HI* (07/27/16 4:06 AM) Peripheral Pulse Rate [60-100 bpm] 118.182 kg (07/27/16 4:06 AM) Weight 40.81 m2 (07/27/16 4:06 AM) Body Mass Index Problem List Condition [...] Form: TAB, Dosing Weight 118.182, kg, ONCE, STAT, Start d ate: 07/27/16 4:23:00 CDT, Stop date: 07/27/16 4:23:00 CDT Notes: (Same as: Godwin 325/5) Do not exceed 4gm/day of acetaminophen. Start Date: 07/27/16 Stop Date: 07/27/16 Status: Completed Macrodantin 100 mg oral capsule 100 mg = 1 cap, PO, QID, X 7 day, # 28 cap, 0 Refill(s) Start Date: 07/27/16 Stop Date: 08/03/16 Status: Ordered morphine Sulfate 4 mg, Route: IVP, ONCE, Dosing Weight 118.182, kg, Priority: STAT, Start date: 0 07/27/16 5:07:00 CDT, Stop date: 07/27/16 5:07:00 CDT Start Date: 07/27/16 Stop Date: 07/27/16 Status: Completed Sodium Chloride 0.9% (Bolus) IV 1,000 mL, Infuse Over: 1 hr, Route: IV, ONCE, Priority: STAT, Dosing Weight 118. 182 kg, Start date: 07/27/16 5:07:00 CDT, Duration: 1 doses or times, Stop date: 07/27/16 5:07:00 CDT Start Date: 07/27/16 Stop Date: 07/27/16 Status: Completed Zofran ODT 4 mg oral tablet, disintegrating 4 mg = 1 tab, PO, TID, Dissolve tab under tongue, X 1 day, # 3 tab, 0 Refill(s) Start Date: 07/27/16 Stop Date: 07/28/16 Status: Completed Results ELECTROLYTES Most recent to 1 oldest [Reference Range]: Sodium Lvl [135-145 142 mEq/L mEq/L] (07/27/16 4:36 AM) Potassium Lvl 4.7 mEq/L [3.5-5.1 mEq/L] (07/27/16 4:36 AM) Chloride Lvl [95-109 110 mEq/L mEq/L] *HI* (07/27/16 4:36 AM) CO2 [24-32 mEq/L] 20 mEq/L *LOW* (07/27/16 4:36 AM) AGAP [10.0-20.0 16.7 mEq/L mEq/L] (07/27/16 4:36 AM) CHEM PANEL Most recent to 1 oldest [Reference Range]: Creatinine Lvl 2.49 mg/dL [0.50-1.40 mg/dL] *HI* (07/27/16 4:36 AM) eGFR 27 mL/min/1.73m2 1 *NA* (07/27/16 4:36 AM) BUN [7-22 mg/dL] 23 mg/dL *HI* (07/27/16 4:36 AM) Glucose Lvl [70-99 193 mg/dL mg/dL] *HI* (07/27/16 4:36 AM) Calcium Lvl 8.7 mg/dL [8.5-10.5 mg/dL] (07/27/16 4:36 AM) Lactic Acid WB 1.6 mmol/L [0.5-2.2 mmol/L] (07/27/16 4:36 AM) 1Result Comment: The eGFR is calculated [...] oldest [Reference Range]: U Preg [Negative] Negative (07/27/16 5:11 AM) URINE AND STOOL Most recent to 1 oldest [Reference Range]: UA Turbidity [Clear] Clear (07/27/16 5:11 AM) UA Color [Yellow] Yellow *NA* (07/27/16 5:11 AM) UA pH [5.0-8.0] 7.5 (07/27/16 5:11 AM) UA Spec Grav 1.020 [<=1.030] (07/27/16 5:11 AM) UA Glucose [Negative 250 mg/dL mg/dL] *ABN* (07/27/16 5:11 AM) UA Blood [Negative] Trace *ABN* (07/27/16 5:11 AM) UA Ketones Negative [Negative] *NA* (07/27/16 5:11 AM) UA Protein [Negative >=300 mg/dL mg/dL] *ABN* (07/27/16 5:11 AM) UA Urobilinogen 0.2 EU/dL [0.1-1.0 EU/dL] (07/27/16 5:11 AM) UA Bili [Negative] Negative *NA* (07/27/16 5:11 AM) UA Leuk Est Negative [Negative] (07/27/16 5:11 AM) UA Nitrite Negative [Negative] (07/27/16 5:11 AM) UA WBC [None Seen 6-10 /HPF /HPF] *ABN* (07/27/16 5:11 AM) UA RBC [0-2 /HPF] 6-10 /HPF *ABN* (07/27/16 5:11 AM) UA Bacteria [None Few /HPF Seen /HPF] (07/27/16 5:11 AM) UA Sq Epi [Few /LPF] Moderate /LPF *ABN* (07/27/16 5:11 AM) HEMATOLOGY Most recent to 1 oldest [Reference Range]: WBC [3.7-10.4 K/CMM] 7.5 K/CMM (07/27/16 4:36 AM) RBC [4.20-5.40 3.47 M/CMM M/CMM] *LOW* (07/27/16 4:36 AM) Hgb [12.0-16.0 g/dL] 10.0 g/dL *LOW* (07/27/16 4:36 AM) Hct [36.0-48.0 %] 30.7 % *LOW* (07/27/16 4:36 AM) MCV [80.0-98.0 fL] 88.5 fL (07/27/16 4:36 AM) MCH [27.0-31.0 pg] 28.8 pg (07/27/16 4:36 AM) MCHC [32.0-36.0 32.6 g/dL g/dL] (07/27/16 4:36 AM) RDW [11.5-14.5 %] 14.1 % (07/27/16 4:36 AM) Platelet [133-450 424 K/CMM K/CMM] (07/27/16 4:36 AM) MPV [7.4-10.4 fL] 7.9 fL (07/27/16 4:36 AM) Segs [45.0-75.0 %] 74.3 % (07/27/16 4:36 AM) Lymphocytes 19.5 % [20.0-40.0 %] *LOW* (07/27/16 4:36 AM) Monocytes [2.0-12.0 4.2 % %] (07/27/16 4:36 AM) Eosinophils [0.0-4.0 0.7 % %] (07/27/16 4:36 AM) Basophils [0.0-1.0 1.3 % %] *HI* (07/27/16 4:36 AM) Segs-Bands # 5.6 K/CMM [1.5-8.1 K/CMM] (07/27/16 4:36 AM) Lymphocytes # 1.5 K/CMM [1.0-5.5 K/CMM] (07/27/16 4:36 AM) Monocytes # [0.0-0.8 0.3 K/CMM K/CMM] (07/27/16 4:36 AM) Eosinophils # 0.1 K/CMM [0.0-0.5 K/CMM] (07/27/16 4:36 AM) Basophils # [0.0-0.2 0.1 K/CMM K/CMM] (07/27/16 4:36 AM) Immunizations Given and Recorded Vaccine Date [...]
--- OUTSIDE RECORDS SUMMARY | 2019-09-10 20:14 | XMS REPORT | Summary of Care ---
Author Author [facility] Organization [facility] Address Unknown Phone Unavailable Encounter PRIMITIVO Mariano(SANGITA) [id number] Date(s): 08/07/16 - 08/08/16 [facility] [address] [employer] provided by [employer] [facility] [employer] [place] [address]- Discharge Diagnosis: Abdominal pain, acute Discharge Disposition: Home or Self Care Attending Physician: Keyon Anton MD Vital Signs 1 2 3 Most recent to oldest [Reference Range]: 97.5 DegF (08/08/16 1:00 AM) 98.6 DegF (08/07/16 11:27 PM) Temperature Oral [96.4-99.1 DegF] 180/105 mmHg *HI* (08/08/16 3:20 AM) 190/91 mmHg *HI* (08/08/16 3:11 AM) 186/98 mmHg *HI* (08/08/16 3:08 AM) Blood Pressure [90-140/60-90 mmHg] 18 BRMIN (08/08/16 3:20 AM) 20 BRMIN (08/08/16 3:11 AM) 18 BRMIN (08/08/16 3:08 AM) Respiratory Rate [14-20 BRMIN] 104 bpm *HI* (08/07/16 11:27 PM) Peripheral Pulse Rate [60-100 bpm] Problem List [...] Reaction Severity Status NKDA Active Medications Benadryl 25 mg, 0.5 mL, Route: IVP, Drug form: INJ, ONCE, Dosing Weight 114.545, kg, Prio rity: STAT, Start date: 08/08/16 0:02:00 CDT, Stop date: 08/08/16 0:02:00 CDT Notes: (Same as: Benadryl) Start Date: 08/08/16 Stop Date: 08/08/16 Status: Completed carvedilol 25 mg oral tablet 25 mg = 1 tab, PO, Q12H, # 60 tab, 0 Refill(s) Start Date: 08/08/16 Status: Ordered labetalol 10 mg, 2 mL, Route: IV, Drug form: INJ, ONCE, Dosing Weight 114.545, kg, Start d ate: 08/08/16 1:41:00 CDT, Stop date: 08/08/16 1:41:00 CDT Start Date: 08/08/16 Stop Date: 08/08/16 Status: Completed labetalol 10 mg, 2 mL, Route: IV, Drug form: INJ, ONCE, Dosing Weight 114.545, kg, Start d ate: 08/08/16 2:20:00 CDT, Stop date: 08/08/16 2:20:00 CDT Start Date: 08/08/16 Stop Date: 08/08/16 Status: Completed Lasix 20 mg oral tablet 20 mg = 1 tab, PO, BID, # 60 tab, 0 Refill(s) Start Date: 08/08/16 Stop Date: 09/07/16 Status: Ordered morphine Sulfate 6 mg, 1.5 mL, Route: IVP, Drug form: INJ, ONCE, Dosing Weight 114.545, kg, Prior ity: STAT, Start date: 08/08/16 1:07:00 CDT, Stop date: 08/08/16 1:07:00 CDT Notes: (Same as:MORPhine Sulfate) Start Date: 08/08/16 Stop Date: 08/08/16 Status: Completed morphine Sulfate 4 mg, 2 mL, Route: IVP, Drug form: INJ, ONCE, Dosing Weight 114.545, kg, Priorit y: STAT, Start date: 08/08/16 0:02:00 CDT, Stop date: 08/08/16 0:02:00 CDT Notes: (Same as:MORPhine Sulfate) Start Date: 08/08/16 Stop Date: 08/08/16 Status: Completed Reglan 10 mg, 2 mL, Route: IVP, Drug form: INJ, ONCE, Dosing Weight 114.545, kg, Priori ty: STAT, Start date: 08/08/16 0:02:00 CDT, Stop date: 08/08/16 0:02:00 CDT Notes: (Same as: Reglan) Start Date: 08/08/16 Stop Date: 08/08/16 Status: Completed Sodium Chloride 0.9% (Bolus) IV 1,000 mL, 1000 ml/hr, Infuse Over: 1 hr, Route: IV, 1,000, Drug form: INJ, ONCE, Priority: STAT, Dosing Weight 114.545 kg, Start date: 08/08/16 0:01:00 CDT, Dur ation: 1 doses or times, Stop date: 08/08/16 0:01:00 CDT Start Date: 08/08/16 Stop Date: 08/08/16 Status: Completed Tylenol with Codeine #3 oral tablet 1 tab, PO, Q4H, PRN Pain, X 7 day, # 42 tab, 0 Refill(s) Start Date: 08/08/16 Stop Date: 08/15/16 Status: Ordered Results ELECTROLYTES Most recent to 1 oldest [Reference Range]: Sodium Lvl [135-145 138 mEq/L mEq/L] (08/08/16 12:20 AM) Potassium Lvl 4.9 mEq/L [3.5-5.1 mEq/L] (08/08/16 12:20 AM) Chloride Lvl [95-109 111 mEq/L mEq/L] *HI* (08/08/16 12:20 AM) CO2 [24-32 mEq/L] 19 mEq/L *LOW* (08/08/16 12:20 AM) AGAP [10.0-20.0 12.9 mEq/L mEq/L] (08/08/16 12:20 AM) CHEM PANEL Most recent to 1 oldest [Reference Range]: Creatinine Lvl 2.69 mg/dL [0.50-1.40 mg/dL] *HI* (08/08/16 12:20 AM) eGFR 24 mL/min/1.73m2 1 *NA* (08/08/16:20 AM) BUN [7-22 mg/dL] 22 mg/dL (08/08/16 12:20 AM) B/C Ratio [6-25] 8 (08/08/16:20 AM) Glucose Lvl [70-99 141 mg/dL mg/dL] *HI* (08/08/16 12:20 AM) Total Protein 6.9 g/dL [6.4-8.4 g/dL] (08/08/16: AM) Albumin Lvl [3.5-5.0 1.6 g/dL g/dL] *LOW* (08/08/16: AM) Globulin [2.7-4.2 5.3 g/dL g/dL] *HI* (08/08/16:20 AM) A/G Ratio [0.7-1.6] 0.3 *LOW* (08/08/16 12:20 AM) Calcium Lvl 8.2 mg/dL [8.5-10.5 mg/dL] *LOW* (08/08/16 12:20 AM) ALT [0-65 unit/L] 11 unit/L (08/08/16 12:20 AM) AST [0-37 unit/L] 6 unit/L (08/08/16 12:20 AM) Alk Phos [39-136 171 unit/L unit/L] *HI* (08/08/16 12:20 AM) Bili Total [0.2-1.3 0.2 mg/dL mg/dL] (08/08/16 12:20 AM) Lipase Lvl [73-393 87 unit/L unit/L] (08/08/16 12:20 AM) 1Result Comment: The eGFR is calculated [...] [Reference Range]: UA Turbidity [Clear] Slight Cloudy (08/08/16 1:33 AM) UA Color [Yellow] Yellow *NA* (08/08/16 1:33 AM) UA pH [5.0-8.0] 6.5 (08/08/16 1:33 AM) UA Spec Grav 1.020 [<=1.030] (08/08/16 1:33 AM) UA Glucose [Negative 250 mg/dL mg/dL] *ABN* (08/08/16 1:33 AM) UA Blood [Negative] Small *ABN* (08/08/16 1:33 AM) UA Ketones Negative [Negative] *NA* (08/08/16 1:33 AM) UA Protein [Negative >=300 mg/dL mg/dL] *ABN* (08/08/16 1:33 AM) UA Urobilinogen 0.2 EU/dL [0.1-1.0 EU/dL] (08/08/16 1:33 AM) UA Bili [Negative] Negative *NA* (08/08/16 1:33 AM) UA Leuk Est Negative [Negative] (08/08/16 1:33 AM) UA Nitrite Negative [Negative] (08/08/16 1:33 AM) UA WBC [None Seen 3-5 /HPF /HPF] (08/08/16 1:33 AM) UA RBC [0-2 /HPF] 3-5 /HPF *ABN* (08/08/16 1:33 AM) UA Bacteria [None Moderate /HPF Seen /HPF] (08/08/16 1:33 AM) UA Sq Epi [Few /LPF] Moderate /LPF *ABN* (08/08/16 1:33 AM) HEMATOLOGY Most recent to 1 oldest [Reference Range]: WBC [3.7-10.4 K/CMM] 8.3 K/CMM (08/08/16 12:20 AM) RBC [4.20-5.40 3.63 M/CMM M/CMM] *LOW* (08/08/16: AM) Hgb [12.0-16.0 g/dL] 10.5 g/dL *LOW* (08/08/16 AM) Hct [36.0-48.0 %] 31.7 % *LOW* (08/08/16 AM) MCV [80.0-98.0 fL] 87.5 fL (08/08/16 AM) MCH [27.0-31.0 pg] 29.0 pg (08/08/16 AM) MCHC [32.0-36.0 33.1 g/dL g/dL] (08/08/16 AM) RDW [11.5-14.5 %] 14.3 % (08/08/16: AM) Platelet [133-450 372 K/CMM K/CMM] (08/08/16 AM) MPV [7.4-10.4 fL] 8.2 fL (08/08/16: AM) Segs [45.0-75.0 %] 50.4 % (08/08/16:20 AM) Lymphocytes 36.1 % [20.0-40.0 %] (08/08/16: AM) Monocytes [2.0-12.0 9.2 % %] (08/08/16 12:20 AM) Eosinophils [0.0-4.0 3.3 % %] (08/08/16 12:20 AM) Basophils [0.0-1.0 1.0 % %] (08/08/16: AM) Segs-Bands # 4.2 K/CMM [1.5-8.1 K/CMM] (08/08/16 12:20 AM) Lymphocytes # 3.0 K/CMM [1.0-5.5 K/CMM] (08/08/16 12: AM) Monocytes # [0.0-0.8 0.8 K/CMM K/CMM] (08/08/16 12:20 AM) Eosinophils # 0.3 K/CMM [0.0-0.5 K/CMM] (08/08/16 12:20 AM) Basophils # [0.0-0.2 0.1 K/CMM K/CMM] (08/08/16 12:20 AM) Immunizations Given and Recorded Vaccine Date [...]
--- OUTSIDE RECORDS SUMMARY | 2019-09-10 20:14 | XMS REPORT | Summary of Care ---
Author Author [facility] Organization [facility] Address Unknown Phone Unavailable Encounter PRIMITIVO Mariano(SANGITA) [id number] Date(s): 07/15/16 - 07/17/16 [facility] [address] [employer] provided by [facility] [place] [address]- Discharge Disposition: Home or Self Care Attending Physician: Ginger Pham MD Admitting Physician: Ginger Pham MD Vital Signs 1 2 3 Most recent to oldest [Reference Range]: 170.18 cm (07/16/16 12:43 AM) 170.18 cm (07/15/16 3:22 PM) Height 97.2 DegF (07/17/16 12:23 PM) 97.5 DegF (07/17/16 8:25 AM) 98.4 DegF (07/17/16 3:41 AM) Temperature Oral [96.4-99.1 DegF] 116/79 mmHg (07/17/16 12:23 PM) 149/94 mmHg *HI* (07/17/16 8:25 AM) 146/82 mmHg *HI* (07/17/16 3:41 AM) Blood Pressure [90-140/60-90 mmHg] 20 BRMIN (07/17/16 12:23 PM) 20 BRMIN (07/17/16 8:25 AM) 18 BRMIN (07/17/16 3:41 AM) Respiratory Rate [14-20 BRMIN] 95 bpm (07/17/16 12:23 PM) 90 bpm (07/17/16 8:25 AM) 88 bpm (07/17/16 3:41 AM) Peripheral Pulse Rate [60-100 bpm] 116.636 kg (07/16/16 12:43 AM) 114.091 kg (07/15/16 3:22 PM) Weight 40.27 m2 (07/16/16 12:43 AM) 39.39 m2 (07/15/16 3:22 PM) Body Mass Index Problem List Condition [...] PO, Drug form: TAB, Bedtime, Dosing Weight 116.636, kg, Sta rt date: 07/16/16 21:00:00 CDT, Duration: 30 day, Stop date: 08/14/16 21:00:00 C DT Notes: (Same as: Lipitor) Start Date: 07/16/16 Stop Date: 07/17/16 Status: Discontinued atorvastatin 40 mg oral tablet 40 mg = 1 tab, PO, Bedtime, # 90 tab, 0 Refill(s) Start Date: 07/17/16 Stop Date: 10/15/16 Status: Ordered Benadryl 25 mg, 0.5 mL, Route: IVP, Drug form: INJ, ONCE, Dosing Weight 116.636, kg, PRN Allergic reaction, Start date: 07/17/16 8:55:00 CDT Notes: (Same as: Benadryl) Start Date: 07/17/16 Stop Date: 07/17/16 Status: Discontinued carvedilol 25 mg, Route: PO, ONCE, Dosing Weight 114.091, kg, Start date: 07/15/16 19:39:00 CDT, Stop date: 07/15/16 19:39:00 CDT Start Date: 07/15/16 Stop Date: 07/15/16 Status: Completed carvedilol 25 mg, 1 tab, Route: PO, Drug form: TAB, Q12H, Dosing Weight 116.636, kg, Start date: 07/16/16 9:00:00 CDT, Duration: 30 day, Stop date: 08/14/16 21:00:00 CDT Notes: Give with food. (Same As: Coreg) Start Date: 07/16/16 Stop Date: 07/17/16 Status: Discontinued carvedilol 25 mg oral tablet 25 mg = 1 tab, PO, Q12H, # 60 tab, 3 Refill(s) Start Date: 07/17/16 Stop Date: 11/14/16 Status: Ordered Dextrose 50% Syringe 25 gm, Route: IVP, Dosing Weight 116.636, kg, ONCE, Start date: 07/16/16 7:02:00 CDT, Stop date: 07/16/16 7:02:00 CDT Start Date: 07/16/16 Stop Date: 07/16/16 Status: Discontinued Dextrose 50% Syringe 25 gm, 50 mL, Route: IVP, Drug Form: INJ, Dosing Weight 116.636, kg, PRN, PRN Bl ood Glucose Results, Start date: 07/16/16 2:26:00 CDT, Duration: 30 day, Stop da te: 08/15/16 2:25:00 CDT Start Date: 07/16/16 Stop Date: 07/17/16 Status: Discontinued Dextrose 50% Syringe 12.5 gm, 25 mL, Route: IVP, Drug Form: INJ, Dosing Weight 116.636, kg, PRN, PRN Blood Glucose Results, Start date: 07/16/16 2:26:00 CDT, Duration: 30 day, Stop date: 08/15/16 2:25:00 CDT Start Date: 07/16/16 Stop Date: 07/17/16 Status: Discontinued Dilaudid 1 mg, Route: IVP, ONCE, Dosing Weight 114.091, kg, Priority: STAT, Start date: 0 07/15/16 15:59:00 CDT, Stop date: 07/15/16 15:59:00 CDT Start Date: 07/15/16 Stop Date: 07/15/16 Status: Discontinued gabapentin 300 mg oral capsule 300 mg = 1 cap, PO, Q12H, # 60 cap, 0 Refill(s) Start Date: 07/17/16 Stop Date: 08/16/16 Status: Ordered gabapentin 300 mg oral capsule 300 mg, 1 cap, Route: PO, Drug form: CAP, Q12H, Dosing Weight 116.636, kg, Start date: 07/16/16 9:00:00 CDT, Duration: 30 day, Stop date: 08/14/16 21:00:00 CDT Notes: (Same as: Neurontin) Start Date: 07/16/16 Stop Date: 07/17/16 Status: Discontinued glucagon 1 mg, Route: IM, Drug form: PDR/INJ, PRN, Dosing Weight 116.636, kg, PRN Blood G lucose Results, Start date: 07/16/16 2:26:00 CDT, Duration: 30 day, Stop date: 0 08/15/16 2:25:00 CDT Start Date: 07/16/16 Stop Date: 07/17/16 Status: Discontinued heparin 5,000 unit, Route: SUB-Q, Q8H, Dosing Weight 116.636, kg, Start date: 07/16/16 8 :00:00 CDT, Duration: 30 day, Stop date: 08/15/16 0:00:00 CDT Start Date: 07/16/16 Stop Date: 07/16/16 Status: Discontinued heparin 5,000 unit, Route: SUB-Q, Q8H, Dosing Weight 116.636, kg, Start date: 07/16/16 8 :00:00 CDT, Duration: 30 day, Stop date: 08/15/16 0:00:00 CDT Start Date: 07/16/16 Stop Date: 07/16/16 Status: Canceled heparin 7,500 unit, 1.5 mL, Route: SUB-Q, Drug form: INJ, Q8H, Dosing Weight 116.636, kg , Start date: 07/16/16 8:00:00 CDT, Duration: 30 day, Stop date: 08/15/16 0:00:0 0 CDT Notes: porcine heparin Start Date: 07/16/16 Stop Date: 07/17/16 Status: Discontinued hydrALAZINE 100 mg oral tablet 100 mg, 1 tab, Route: PO, ONCE, Dosing Weight 114.091, kg, Start date: 07/15/16 17:14:00 CDT, Stop date: 07/15/16 17:14:00 CDT Start Date: 07/15/16 Stop Date: 07/15/16 Status: Discontinued hydrALAZINE 100 mg oral tablet 100 mg = 1 tab, PO, TID, # 90 tab, 0 Refill(s) Start Date: 07/17/16 Status: Ordered hydrALAZINE 100 mg oral tablet 100 mg, 2 tab, Route: PO, Drug form: TAB, TID, Dosing Weight 116.636, kg, Start date: 07/16/16 9:00:00 CDT, Duration: 30 day, Stop date: 08/14/16 17:00:00 CDT Notes: (Same as: Apresoline) May interfere w/enteral feedings Take With Food Start Date: 07/16/16 Stop Date: 07/17/16 Status: Discontinued hydrALAZINE 25 mg oral tablet 100 mg, Route: PO, Drug form: TAB, ONCE, Dosing Weight 114.091, kg, Start date: 07/15/16 17:42:00 CDT, Stop date: 07/15/16 17:42:00 CDT Start Date: 07/15/16 Stop Date: 07/15/16 Status: Completed insulin aspart 4 unit, 0.04 mL, Route: SUB-Q, Drug form: SOLN, TID-Before Meals, Dosing Weight 116.636, kg, PRN Blood Glucose Results, Start date: 07/16/16 2:26:00 CDT, Durati on: 30 day, Stop date: 08/15/16 2:25:00 CDT Notes: Roll in palms of hands gently; Do not shake vigorously. (Same as: NovoDONG Angulo)"single patient use only"WASTE: F/P - Black; E - Municipal Trash Bin Stable f or 28 days at room temperature.Expires in days from Date Start Date: 07/16/16 Stop Date: 07/17/16 Status: Discontinued insulin aspart 2 unit, 0.02 mL, Route: SUB-Q, Drug form: SOLN, TID-Before Meals, Dosing Weight 116.636, kg, PRN Blood Glucose Results, Start date: 07/16/16 2:26:00 CDT, Durati on: 30 , Stop date: 08/15/16 2:25:00 CDT Notes: Roll in palms of hands gently; Do not shake vigorously. (Same as: Jarrod Angulo)"single patient use only"WASTE: F/P - Black; E - Municipal Trash Bin Stable f or 28 days at room temperature.Expires in days from Date Start Date: 07/16/16 Stop Date: 07/17/16 Status: Discontinued insulin aspart 3 unit, 0.03 mL, Route: SUB-Q, Drug form: SOLN, TID-Before Meals, Dosing Weight 116.636, kg, PRN Blood Glucose Results, Start date: 07/16/16 2:26:00 CDT, Durati on: 30 , Stop date: 08/15/16 2:25:00 CDT Notes: Roll in palms of hands gently; Do not shake vigorously. (Same as: Jarrod Angulo)"single patient use only"WASTE: F/P - Black; E - Municipal Trash Bin Stable f or 28 days at room temperature.Expires in days from Date Start Date: 07/16/16 Stop Date: 07/17/16 Status: Discontinued insulin aspart 5 unit, 0.05 mL, Route: SUB-Q, Drug form: SOLN, TID-Before Meals, Dosing Weight 116.636, kg, PRN Blood Glucose Results, Start date: 07/16/16 2:26:00 CDT, Durati on: 30 , Stop date: 08/15/16 2:25:00 CDT Notes: Roll in palms of hands gently; Do not shake vigorously. (Same as: Jarrod Angulo)"single patient use only"WASTE: F/P - Black; E - Municipal Trash Bin Stable f or 28 days at room temperature.Expires in days from Date Start Date: 07/16/16 Stop Date: 07/17/16 Status: Discontinued insulin aspart 1 unit, 0.01 mL, Route: SUB-Q, Drug form: SOLN, TID-Before Meals, Dosing Weight 116.636, kg, PRN Blood Glucose Results, Start date: 07/16/16 2:26:00 CDT, Durati on: 30 day, Stop date: 08/15/16 2:25:00 CDT Notes: Roll in palms of hands gently; Do not shake vigorously. (Same as: NovoLO G)"single patient use only"WASTE: F/P - Black; E - Municipal Trash Bin Stable f or 28 days at room temperature.Expires in days from Date Start Date: 07/16/16 Stop Date: 07/17/16 Status: Discontinued Insulin regular 5 unit, Route: IVP, ONCE, Dosing Weight 116.636, kg, Start date: 07/16/16 7:02:0 0 CDT, Stop date: 07/16/16 7:02:00 CDT Start Date: 07/16/16 Stop Date: 07/16/16 Status: Discontinued Lasix 60 mg, Route: PO, Daily, Dosing Weight 116.636, kg, Start date: 07/17/16 9:00:00 CDT, Duration: 30 day, Stop date: 08/15/16 9:00:00 CDT Start Date: 07/17/16 Stop Date: 07/16/16 Status: Canceled Lasix 60 mg, 6 mL, Route: IVP, Drug form: INJ, ONCE, Dosing Weight 116.636, kg, Start date: 07/16/16 2:17:00 CDT, Stop date: 07/16/16 2:17:00 CDT Notes: (Same as: Lasix) MEDICATION WASTE Product Size: 40 mgProduct Was sergio: ___ mg Start Date: 07/16/16 Stop Date: 07/16/16 Status: Completed Lasix 60 mg, 3 tab, Route: PO, Drug form: TAB, Daily, Dosing Weight 116.636, kg, Start date: 07/16/16 13:18:00 CDT, Duration: 30 day, Stop date: 08/15/16 9:00:00 CDT Notes: (Same as: Lasix) May cause GI upset. Give with food or milk. Start Date: 07/16/16 Stop Date: 07/17/16 Status: Discontinued Lasix 20 mg oral tablet 20 mg = 1 tab, PO, BID, # 30 tab, 1 Refill(s) Start Date: 07/17/16 Status: Ordered Levemir 15 unit, 0.15 mL, Route: SUB-Q, Drug form: SOLN, Daily, Dosing Weight 116.636, k g, Start date: 07/16/16 9:00:00 CDT, Duration: 30 day, Stop date: 08/14/16 9:00: 00 CDT Notes: Same as LevemirDo not hold insulin without contacting prescriberWASTE: F/ P - Black; E - Municipal Trash Bin "single patient use only" Start Date: 07/16/16 Stop Date: 07/17/16 Status: Discontinued magnesium oxide 800 mg, Route: PO, ONCE, Dosing Weight 114.091, kg, Start date: 07/15/16 16:56:0 0 CDT, Stop date: 07/15/16 16:56:00 CDT Start Date: 07/15/16 Stop Date: 07/15/16 Status: Completed magnesium sulfate 2 gm in Water 50 ml 2 gm, 50 mL, Route: IVPB, Drug form: INJ, ONCE, Dosing Weight 116.636, kg, Start date: 07/17/16 8:07:00 CDT, Duration: 2 hr, Stop date: 07/17/16 8:07:00 CDT Notes: WASTE: F/P - Sink; E - Municipal Trash Bin Start Date: 07/17/16 Stop Date: 07/17/16 Status: Completed morphine Sulfate 4 mg, Route: IVP, Drug form: INJ, ONCE, Dosing Weight 114.091, kg, Priority: STA T, Start date: 07/15/16 23:57:00 CDT, Stop date: 07/15/16 23:57:00 CDT Start Date: 07/15/16 Stop Date: 07/16/16 Status: Completed morphine Sulfate 4 mg, Route: IVP, Drug form: INJ, ONCE, Dosing Weight 114.091, kg, Priority: STA T, Start date: 07/15/16 19:56:00 CDT, Stop date: 07/15/16 19:56:00 CDT Start Date: 07/15/16 Stop Date: 07/15/16 Status: Completed morphine Sulfate 4 mg, Route: IVP, Drug form: INJ, ONCE, Dosing Weight 114.091, kg, Priority: STA T, Start date: 07/15/16 15:52:00 CDT, Stop date: 07/15/16 15:52:00 CDT Start Date: 07/15/16 Stop Date: 07/15/16 Status: Discontinued morphine Sulfate 4 mg, Route: IVP, ONCE, Dosing Weight 114.091, kg, Priority: STAT, Start date: 0 07/15/16 16:16:00 CDT, Stop date: 07/15/16 16:16:00 CDT Start Date: 07/15/16 Stop Date: 07/15/16 Status: Completed Nifedical XL 60 mg, Route: PO, ONCE, Dosing Weight 114.091, kg, Start date: 07/15/16 20:50:00 CDT, Stop date: 07/15/16 20:50:00 CDT Start Date: 07/15/16 Stop Date: 07/15/16 Status: Completed NIFEdipine 30 mg oral tablet, extended release 30 mg, 1 tab, Route: PO, Drug form: ERTAB, ONCE, Dosing Weight 116.636, kg, Star t date: 07/16/16 14:18:00 CDT, Stop date: 07/16/16 14:18:00 CDT Notes: (Same as: Adalat CC, Procardia XL) Give on empty stomach. Take 1 hour be fore or 2 hours after meal; "Avoid grapefruit and grapefruit juice". Do not cru sh Start Date: 07/16/16 Stop Date: 07/16/16 Status: Completed NIFEdipine 60 mg oral tablet, extended release 60 mg, 1 tab, Route: PO, Drug form: ERTAB, Daily, Dosing Weight 116.636, kg, Sta rt date: 07/16/16 9:00:00 CDT, Duration: 30 day, Stop date: 08/14/16 9:00:00 CDT Notes: (Same as: Adalat CC, Procardia XL) Give on empty stomach. Take 1 hour be fore or 2 hours after meal; "Avoid grapefruit and grapefruit juice". Do not cru sh Start Date: 07/16/16 Stop Date: 07/16/16 Status: Discontinued NIFEdipine 90 mg oral tablet, extended release 90 mg, 1 tab, Route: PO, Drug form: ERTAB, Daily, Dosing Weight 116.636, kg, Sta rt date: 07/17/16 9:00:00 CDT, Duration: 30 day, Stop date: 08/15/16 9:00:00 CDT Notes: (Same as: Adalat CC,Procardia XL)"Do Not Crush" "Avoid grapefruit and gr apefruit juice" Start Date: 07/17/16 Stop Date: 07/17/16 Status: Discontinued NIFEdipine 90 mg oral tablet, extended release 90 mg = 1 tab, PO, Daily, # 30 tab, 1 Refill(s) Start Date: 07/17/16 Stop Date: 09/15/16 Status: Ordered Reglan 10 mg, 2 mL, Route: IVP, Drug form: INJ, ONCE, Dosing Weight 116.636, kg, Start date: 07/17/16 8:55:00 CDT, Stop date: 07/17/16 8:55:00 CDT Notes: (Same as: Reglan) Start Date: 07/17/16 Stop Date: 07/17/16 Status: Completed sevelamer 0.8 gm, 1 tab, Route: PO, Drug form: TAB, Daily, Dosing Weight 116.636, kg, Star t date: 07/16/16 9:00:00 CDT, Duration: 30 day, Stop date: 08/14/16 9:00:00 CDT Notes: Same as: Renvela Start Date: 07/16/16 Stop Date: 07/17/16 Status: Discontinued sodium bicarbonate 650 mg oral tablet 1,950 mg, 3 tab, Route: PO, Drug form: TAB, BID, Dosing Weight 116.636, kg, Star t date: 07/16/16 9:00:00 CDT, Duration: 30 day, Stop date: 08/14/16 17:00:00 CDT Notes: "Dissolve tablet in a glass of water prior to oral administration. STOMA CH WARNING: To avoid serious injury, do not take until tablet is completely diss olved. It is very important not to take this product when overly full from food or drink." Start Date: 07/16/16 Stop Date: 07/17/16 Status: Discontinued tramadol 50 mg oral tablet 50 mg, 1 tab, Route: PO, Drug form: TAB, Q6H, Dosing Weight 116.636, kg, PRN Katherine n Score 6-10, Start date: 07/16/16 13:15:00 CDT, Duration: 30 day, Stop date: 13:14:00 CDT Notes: Not to exceed 400mg/day. (Same As: Ultram) Start Date: 07/16/16 Stop Date: 07/17/16 Status: Discontinued Tylenol 650 mg, 2 tab, Route: PO, Drug form: TAB, Q6H, Dosing Weight 116.636, kg, PRN Pa in Score 1-3, Start date: 07/16/16 7:58:00 CDT, Duration: 30 day, Stop date: 7:57:00 CDT Notes: Do not exceed 4 gm/day. (Same as: Tylenol) Start Date: 07/16/16 Stop Date: 07/17/16 Status: Discontinued Zofran 4 mg, 2 mL, Route: IVP, Drug form: INJ, Q8H, Dosing Weight 116.636, kg, PRN Naus ea, Start date: 07/16/16 15:37:00 CDT, Duration: 30 day, Stop date: 08/15/16 15: 36:00 CDT Notes: (Same as: Zofran) MEDICATION WASTE Product Size: 4 mgProduct Was sergio: 0 mg Start Date: 07/16/16 Stop Date: 07/17/16 Status: Discontinued Zofran 4 mg, Route: IVP, Drug form: INJ, ONCE, Dosing Weight 114.091, kg, Priority: STA T, Start date: 07/15/16 15:52:00 CDT, Stop date: 07/15/16 15:52:00 CDT Start Date: 07/15/16 Stop Date: 07/15/16 Status: Completed Results ELECTROLYTES 1 2 3 Most recent to oldest [Reference Range]: 141 mEq/L (07/17/16 4:25 AM) 145 mEq/L (07/16/16 12:28 PM) 142 mEq/L (3/25/17 4:05 AM) Sodium Lvl [135-145 mEq/L] 5.1 mEq/L (07/17/16 4:25 AM) 5.0 mEq/L (07/16/16 12:28 PM) 5.8 mEq/L 1 *HI* (07/16/16 4:05 AM) Potassium Lvl [3.5-5.1 mEq/L] 110 mEq/L *HI* (07/17/16 4:25 AM) 112 mEq/L *HI* (07/16/16 12:28 PM) 112 mEq/L *HI* (07/16/16 4:05 AM) Chloride Lvl [95-109 mEq/L] 25 mEq/L (07/17/16 4:25 AM) 23 mEq/L *LOW* (07/16/16 12:28 PM) 21 mEq/L *LOW* (07/16/16 4:05 AM) CO2 [24-32 mEq/L] 11.1 mEq/L (07/17/16 4:25 AM) 15.0 mEq/L (07/16/16 12:28 PM) 14.8 mEq/L (07/16/16 4:05 AM) AGAP [10.0-20.0 mEq/L] 1Result Comment: moderate hemolysis,07/16/2016 07:09 CHEM PANEL 1 2 3 Most recent to oldest [Reference Range]: 2.45 mg/dL *HI* (07/17/16 4:25 AM) 2.37 mg/dL *HI* (07/16/16 12:28 PM) 2.39 mg/dL *HI* (07/16/16 4:05 AM) Creatinine Lvl [0.50-1.40 mg/dL] 27 mL/min/1.73m2 1 *NA* (07/17/16 4:25 AM) 28 mL/min/1.73m2 2 *NA* (07/16/16 12:28 PM) 28 mL/min/1.73m2 3 *NA* (07/16/16 4:05 AM) eGFR 19 mg/dL (07/17/16 4:25 AM) 20 mg/dL (07/16/16 12:28 PM) 19 mg/dL (07/16/16 4:05 AM) BUN [7-22 mg/dL] 69 mg/dL *LOW* (07/17/16 4:25 AM) 87 mg/dL (07/16/16 12:28 PM) 92 mg/dL (07/16/16 4:05 AM) Glucose Lvl [70-99 mg/dL] 8.2 mg/dL *LOW* (07/17/16 4:25 AM) 8.2 mg/dL *LOW* (07/16/16 12:28 PM) 8.6 mg/dL (07/16/16 4:05 AM) Calcium Lvl [8.5-10.5 mg/dL] 4.6 mg/dL *HI* (07/17/16 4:25 AM) 4.4 mg/dL (07/16/16 4:05 AM) 4.7 mg/dL *HI* (07/15/16 4:13 PM) Phosphorus [2.5-4.5 mg/dL] 1.7 mg/dL *LOW* (07/17/16 4:25 AM) 1.9 mg/dL (07/16/16 4:05 AM) 1.5 mg/dL *LOW* (07/15/16 4:13 PM) Magnesium Lvl [1.8-2.4 mg/dL] 0.9 mmol/L (07/15/16 4:13 PM) Lactic Acid WB [0.5-2.2 mmol/L] 1Result [...] recent to oldest [Reference Range]: <0.02 ng/mL (07/15/16 4:13 PM) Troponin-I [0.00-0.40 ng/mL] DRUG SCREEN 1 2 3 Most recent to oldest [Reference Range]: Negative *NA* (07/15/16 8:05 PM) U Amph Scr [Negative] Negative *NA* (07/15/16 8:05 PM) U Esther Scr [Negative] Negative *NA* (07/15/16 8:05 PM) U Benzodia Scr [Negative] Negative *NA* (07/15/16 8:05 PM) U Cocaine Scr [Negative] Positive *ABN* (07/15/16 8:05 PM) U Opiate Scr [Negative] Negative *NA* (07/15/16 8:05 PM) U Phencyc Scr [Negative] Negative *NA* (07/15/16 8:05 PM) U Cannab Scr [Negative] See Note (07/15/16 8:05 PM) UDS Note URINE AND STOOL 1 2 3 Most recent to oldest [Reference Range]: Clear (07/15/16 8:05 PM) UA Turbidity [Clear] Yellow *NA* (07/15/16 8:05 PM) UA Color [Yellow] 7.0 (07/15/16 8:05 PM) UA pH [5.0-8.0] 1.020 (07/15/16 8:05 PM) UA Spec Grav [<=1.030] 250 mg/dL *ABN* (07/15/16 8:05 PM) UA Glucose [Negative mg/dL] Small *ABN* (07/15/16 8:05 PM) UA Blood [Negative] Negative *NA* (07/15/16 8:05 PM) UA Ketones [Negative] >=300 mg/dL *ABN* (07/15/16 8:05 PM) UA Protein [Negative mg/dL] 0.2 EU/dL (07/15/16 8:05 PM) UA Urobilinogen [0.1-1.0 EU/dL] Negative *NA* (07/15/16 8:05 PM) UA Bili [Negative] Negative (07/15/16 8:05 PM) UA Leuk Est [Negative] Negative (07/15/16 8:05 PM) UA Nitrite [Negative] 3-5 /HPF (07/15/16 8:05 PM) UA WBC [None Seen /HPF] 3-5 /HPF *ABN* (07/15/16 8:05 PM) UA RBC [0-2 /HPF] Few /HPF (07/15/16 8:05 PM) UA Bacteria [None Seen /HPF] Occasional /LPF (07/15/16 8:05 PM) UA Sq Epi [Few /LPF] HEMATOLOGY 1 2 3 Most recent to oldest [Reference Range]: 6.9 K/CMM (07/17/16 4:25 AM) 8.1 K/CMM (07/16/16 4:05 AM) 8.3 K/CMM (07/15/16 4:13 PM) WBC [3.7-10.4 K/CMM] 3.01 M/CMM *LOW* (07/17/16 4:25 AM) 3.77 M/CMM *LOW* (07/16/16 4:05 AM) 3.80 M/CMM *LOW* (07/15/16 4:13 PM) RBC [4.20-5.40 M/CMM] 8.7 g/dL *LOW* (07/17/16 4:25 AM) 10.8 g/dL *LOW* (07/16/16 4:05 AM) 10.9 g/dL *LOW* (07/15/16 4:13 PM) Hgb [12.0-16.0 g/dL] 26.8 % *LOW* (07/17/16 4:25 AM) 33.8 % *LOW* (07/16/16 4:05 AM) 34.1 % *LOW* (07/15/16 4:13 PM) Hct [36.0-48.0 %] 89.0 fL (07/17/16 4:25 AM) 89.6 fL (07/16/16 4:05 AM) 89.8 fL (07/15/16 4:13 PM) MCV [80.0-98.0 fL] 29.0 pg (07/17/16 4:25 AM) 28.8 pg (07/16/16 4:05 AM) 28.8 pg (07/15/16 4:13 PM) MCH [27.0-31.0 pg] 32.6 g/dL (07/17/16 4:25 AM) 32.1 g/dL (07/16/16 4:05 AM) 32.0 g/dL (07/15/16 4:13 PM) MCHC [32.0-36.0 g/dL] 13.9 % (07/17/16 4:25 AM) 14.2 % (07/16/16 4:05 AM) 14.3 % (07/15/16 4:13 PM) RDW [11.5-14.5 %] 377 K/CMM (07/17/16 4:25 AM) 420 K/CMM (07/16/16 4:05 AM) 460 K/CMM *HI* (07/15/16 4:13 PM) Platelet [133-450 K/CMM] 7.9 fL (07/17/16 4:25 AM) 8.8 fL (07/16/16 4:05 AM) 8.0 fL (07/15/16 4:13 PM) MPV [7.4-10.4 fL] 41.9 % *LOW* (07/17/16 4:25 AM) 48.7 % (07/16/16 4:05 AM) 58.6 % (07/15/16 4:13 PM) Segs [45.0-75.0 %] 47.3 % *HI* (07/17/16 4:25 AM) 40.4 % *HI* (07/16/16 4:05 AM) 31.6 % (07/15/16 4:13 PM) Lymphocytes [20.0-40.0 %] 6.7 % (07/17/16 4:25 AM) 6.1 % (07/16/16 4:05 AM) 5.1 % (07/15/16 4:13 PM) Monocytes [2.0-12.0 %] 2.7 % (07/17/16 4:25 AM) 3.8 % (07/16/16 4:05 AM) 3.2 % (07/15/16 4:13 PM) Eosinophils [0.0-4.0 %] 1.4 % *HI* (07/17/16 4:25 AM) 1.0 % (07/16/16 4:05 AM) 1.5 % *HI* (07/15/16 4:13 PM) Basophils [0.0-1.0 %] 2.9 K/CMM (07/17/16 4:25 AM) 3.9 K/CMM (07/16/16 4:05 AM) 4.8 K/CMM (07/15/16 4:13 PM) Segs-Bands # [1.5-8.1 K/CMM] 3.3 K/CMM (07/17/16 4:25 AM) 3.3 K/CMM (07/16/16 4:05 AM) 2.6 K/CMM (07/15/16 4:13 PM) Lymphocytes # [1.0-5.5 K/CMM] 0.5 K/CMM (07/17/16 4:25 AM) 0.5 K/CMM (07/16/16 4:05 AM) 0.4 K/CMM (07/15/16 4:13 PM) Monocytes # [0.0-0.8 K/CMM] 0.2 K/CMM (07/17/16 4:25 AM) 0.3 K/CMM (07/16/16 4:05 AM) 0.3 K/CMM (07/15/16 4:13 PM) Eosinophils # [0.0-0.5 K/CMM] 0.1 K/CMM (07/17/16 4:25 AM) 0.1 K/CMM (07/16/16 4:05 AM) 0.1 K/CMM (07/15/16 4:13 PM) Basophils # [0.0-0.2 K/CMM] 8.47 ug/mL FEU *NA* (07/15/16 5:53 PM) D-Dimer MOLECULAR DIAGNOSTIC 1 2 3 Most recent to oldest [Reference Range]: Flocked TOBACCO FLAVORER Swab (07/16/16 3:45 AM) Source Adenovirus PCR Flocked TOBACCO FLAVORER Swab (07/16/16 3:45 AM) Source Parainfluenza Virus PCR Negative (07/16/16 3:45 AM) Parainfluenza 1 PCR [Negative] Negative (07/16/16 3:45 AM) Parainfluenza 2 PCR [Negative] Negative (07/16/16 3:45 AM) Parainfluenza 3 PCR [Negative] Flocked TOBACCO FLAVORER Swab (07/16/16 3:45 AM) Source Respiratory Panel PCR Negative (07/16/16 3:45 AM) Influenza A PCR [Negative] Negative (07/16/16 3:45 AM) Influenza B PCR [Negative] Negative (07/16/16 3:45 AM) RSV PCR [Negative] Negative (07/16/16 3:45 AM) Adenovirus PCR [Negative] Immunizations Given and Recorded Vaccine Date [...] Extracted from: Title: Discharge Summary * Author: Anjel Potts MD Aldo e: 07/17/16 Discharge Information Admit date: 07/15/16 Discharge [...] instructions to follow-up with her PCP in [facility] within 2 weeks. Patient given scripts for prescriptions below with nifedipine increased to 90 mg from 60 mg previously. Discharge diet: Discharge meds: Discharge Plan Discharge Summary Plan Discharge Status: improved. Discharge instructions given: to patient. Discharge disposition: discharge to home. Prescriptions: written and given to patient. Diagnosis Dyspnea (OEE20-SH R06.00, Working, Medical). Dyspnea (DYJ75-NM R06.0, Working, Medical). Acute exacerbation of CHF (congestive heart failure) (BIC48-XH I50.9, Working, Medical). Hypertensive emergency (JKE51-NX I16.1, Working, Medical). Below knee amputation status (BJP91-HZ Z89.519, Working, Medical). Diabetes mellitus (JSB57-DU E11.9, Working, Medical). CKD (chronic kidney disease), stage IV (DAZ69-LG N18.4, Working, Medical). Course Improving. Education and Follow-up Counseled: patient. Extracted from: Title: ORS Foot and Ankle Daily Author: WardIII, Louis sierra MD Date: 07/17/16 Progress Note ORS Foot and Ankle Daily Progress Note SUBJECTIVE Doing well, pain well controlled on current regimen, denies any new symptoms since previous examination OBJECTIVE VitalsTmp(F)[id number] 07/17 12:[id number]--- 07/17 08:2597.041940/110154--- 07/17 03:[id number]--- 07/16 23:[id number]--- 07/16 19:[id number]/[id number]--- 24 Hr Tmax: 99F (37.22c) at 07/16 23:16V ital Signs are the last 5 in the past 48 hours. RLE: Inspection: Dressings c/d/i (changed today, incision c/d/i, no drainage/erythema), elevated appropriatley, Compartments soft and compressible. Sensation: sensation intact to light touch over stump Vascular: Stump wwp ASSESSMENT & PLAN 40F s/p R BKA on 06/30/16 - WBS: NWB RLE - DVT PPx: SERGIO/SCD, chemical ppx per [facility] - Pain Control: MMP control per primary - Dispo: Patient will need to f/u with Dr. Fernandez 1 week s/p discharge, keep dressings c/d/i. [phone] for appt. Louis May III, MD PGY-2 Orthopaedic Surgery Pager#: [phone] MSO#: [id number] Extracted from: Title: Team C General Admission H&P Author: Mavis Potts MD Date: 07/16/16 * Impression and Plan 40 years of AF [...]
--- OUTSIDE RECORDS SUMMARY | 2019-09-10 20:15 | XMS REPORT | Summary of Care ---
Author Author [facility] Organization [facility] Address Unknown Phone Unavailable Encounter PRIMITIVO Mariano(SANGITA) [id number] Date(s): 08/26/16 - 08/26/16 [facility] [address] [employer] provided by [facility] [employer] [facility] [place] [address]- Discharge Diagnosis: Abdominal pain, colicky Discharge Disposition: Home or Self Care Attending Physician: Gladys Maldonado MD Vital Signs 1 2 3 Most recent to oldest [Reference Range]: 170.18 cm (08/26/16 11:17 AM) Height 98.8 DegF (08/26/16 5:27 PM) 98.7 DegF (08/26/16 11:17 AM) Temperature Oral [96.4-99.1 DegF] 177 mmHg *HI* (08/26/16 5:27 PM) 191 mmHg *HI* (08/26/16 4:48 PM) 179 mmHg *HI* (08/26/16 2:45 PM) Systolic Blood Pressure [90-140 mmHg] 100 mmHg *HI* (08/26/16 5:27 PM) 105 mmHg *HI* (08/26/16 4:48 PM) 103 mmHg *HI* (08/26/16 2:45 PM) Diastolic Blood Pressure [60-90 mmHg] 18 BRMIN (08/26/16 5:27 PM) 20 BRMIN (08/26/16 4:48 PM) 18 BRMIN (08/26/16 2:45 PM) Respiratory Rate [14-20 BRMIN] 120 bpm *HI* (08/26/16 11:17 AM) Peripheral Pulse Rate [60-100 bpm] 114.545 kg (08/26/16 11:17 AM) Weight 39.55 m2 (08/26/16 11:17 AM) Body Mass Index Problem List Condition [...] Substance Reaction Severity Status NKDA Active Medications Isolyte S PH-7.4 (Bolus) IV 1,000 mL, Route: IV, Dosing Weight 114.545, kg, ONCE, Start date: 08/26/16 12:04 :00 CDT, Stop date: 08/26/16 12:04:00 CDT Start Date: 08/26/16 Stop Date: 08/26/16 Status: Completed morphine Sulfate 4 mg, 1 mL, Route: IVP, Drug form: INJ, ONCE, Dosing Weight 114.545, kg, Priorit y: STAT, Start date: 08/26/16 11:46:00 CDT, Stop date: 08/26/16 11:46:00 CDT Notes: (Same as:MORPhine Sulfate) Start Date: 08/26/16 Stop Date: 08/26/16 Status: Completed morphine Sulfate 4 mg, Route: IVP, ONCE, Dosing Weight 114.545, kg, Priority: STAT, Start date: 0 08/26/16 14:00:00 CDT, Stop date: 08/26/16 14:00:00 CDT Start Date: 08/26/16 Stop Date: 08/26/16 Status: Completed morphine Sulfate 4 mg, 1 mL, Route: IVP, Drug form: INJ, ONCE, Dosing Weight 114.545, kg, Priorit y: STAT, Start date: 08/26/16 16:52:00 CDT, Stop date: 08/26/16 16:52:00 CDT Notes: (Same as:MORPhine Sulfate) Start Date: 08/26/16 Stop Date: 08/26/16 Status: Completed ondansetron 4 mg, 2 mL, Route: IVP, Drug form: INJ, ONCE, Dosing Weight 114.545, kg, Priorit y: STAT, Start date: 08/26/16 11:46:00 CDT, Stop date: 08/26/16 11:46:00 CDT Notes: (Same as: Luis) MEDICATION WASTE Product Size: 4 mgProduct Was savana: ___ mg Start Date: 08/26/16 Stop Date: 08/26/16 Status: Completed ondansetron 4 mg, Route: IVP, Drug form: INJ, ONCE, Dosing Weight 114.545, kg, Priority: STA T, Start date: 08/26/16 14:00:00 CDT, Stop date: 08/26/16 14:00:00 CDT Start Date: 08/26/16 Stop Date: 08/26/16 Status: Completed Sodium Chloride 0.9% (Bolus) IV 500 mL, 500 ml/hr, Infuse Over: 1 hr, Route: IV, 500, Drug form: INJ, ONCE, Prio rity: STAT, Dosing Weight 114.545 kg, Start date: 08/26/16 13:08:00 CDT, Duratio n: 1 doses or times, Stop date: 08/26/16 13:08:00 CDT Start Date: 08/26/16 Stop Date: 08/26/16 Status: Completed Results ELECTROLYTES Most recent to 1 oldest [Reference Range]: Sodium Lvl [135-145 139 mEq/L mEq/L] (08/26/16 12:06 PM) Potassium Lvl 5.6 mEq/L [3.5-5.1 mEq/L] *HI* (08/26/16 12:06 PM) Chloride Lvl [95-109 110 mEq/L mEq/L] *HI* (08/26/16 12:06 PM) CO2 [24-32 mEq/L] 19 mEq/L *LOW* (08/26/16 12:06 PM) AGAP [10.0-20.0 15.6 mEq/L mEq/L] (08/26/16 12:06 PM) CHEM PANEL Most recent to 1 oldest [Reference Range]: Creatinine Lvl 2.99 mg/dL [0.50-1.40 mg/dL] *HI* (08/26/16 12:06 PM) eGFR 21 mL/min/1.73m2 1 *NA* (08/26/16 PM) BUN [7-22 mg/dL] 24 mg/dL *HI* (08/26/16 12: PM) Glucose Lvl [70-99 173 mg/dL mg/dL] *HI* (08/26/16 PM) Total Protein 6.5 g/dL [6.4-8.4 g/dL] (08/26/16: PM) Albumin Lvl [3.5-5.0 1.6 g/dL g/dL] *LOW* (08/26/16 PM) Globulin [2.7-4.2 4.9 g/dL g/dL] *HI* (08/26/16 12: PM) A/G Ratio [0.7-1.6] 0.3 *LOW* (08/26/16 PM) Calcium Lvl 8.0 mg/dL [8.5-10.5 mg/dL] *LOW* (08/26/16 12:06 PM) ALT [0-65 unit/L] 11 unit/L (08/26/16 12:06 PM) AST [0-37 unit/L] 11 unit/L (08/26/16 12:06 PM) Alk Phos [39-136 154 unit/L unit/L] *HI* (08/26/16 12:06 PM) Bili Total [0.2-1.3 0.2 mg/dL mg/dL] (08/26/16 12:06 PM) Bili Direct [0.0-0.3 0.0 mg/dL mg/dL] (08/26/16 12:06 PM) Bili Indirect 0.2 mg/dL [0.0-1.0 mg/dL] (08/26/16 12:06 PM) Lipase Lvl [73-393 60 unit/L unit/L] *LOW* (08/26/16 12: PM) Lactic Acid WB 1.8 mmol/L [0.5-2.2 mmol/L] (08/26/16 2:15 PM) 1Result Comment: The eGFR is calculated [...] oldest [Reference Range]: U Preg [Negative] Negative (08/26/16 11:40 AM) URINE AND STOOL Most recent to 1 oldest [Reference Range]: UA Turbidity [Clear] Clear (08/26/16 11:40 AM) UA Color [Yellow] Yellow *NA* (08/26/16 11:40 AM) UA pH [5.0-8.0] 6.5 (08/26/16 11:40 AM) UA Spec Grav 1.020 [<=1.030] (08/26/16 11:40 AM) UA Glucose [Negative 250 mg/dL mg/dL] *ABN* (08/26/16 11:40 AM) UA Blood [Negative] Trace *ABN* (08/26/16 11:40 AM) UA Ketones Negative [Negative] *NA* (08/26/16 11:40 AM) UA Protein [Negative >=300 mg/dL mg/dL] *ABN* (08/26/16 11:40 AM) UA Urobilinogen 0.2 EU/dL [0.1-1.0 EU/dL] (08/26/16 11:40 AM) UA Bili [Negative] Negative *NA* (08/26/16 11:40 AM) UA Leuk Est Negative [Negative] (08/26/16 11:40 AM) UA Nitrite Negative [Negative] (08/26/16 11:40 AM) UA WBC [None Seen 0-2 /HPF /HPF] (08/26/16 11:40 AM) UA RBC [0-2 /HPF] 3-5 /HPF *ABN* (08/26/16 11:40 AM) UA Bacteria [None Few /HPF Seen /HPF] (08/26/16 11:40 AM) UA Sq Epi [Few /LPF] Moderate /LPF *ABN* (08/26/16 11:40 AM) UA Mucus [None Seen Rare /LPF /LPF] (08/26/16 11:40 AM) HEMATOLOGY Most recent to 1 oldest [Reference Range]: WBC [3.7-10.4 K/CMM] 13.2 K/CMM *HI* (08/26/16 12:06 PM) RBC [4.20-5.40 3.37 M/CMM M/CMM] *LOW* (08/26/16 12:06 PM) Hgb [12.0-16.0 g/dL] 9.7 g/dL *LOW* (08/26/16 12:06 PM) Hct [36.0-48.0 %] 29.9 % *LOW* (08/26/16 12:06 PM) MCV [80.0-98.0 fL] 88.8 fL (08/26/16 12:06 PM) MCH [27.0-31.0 pg] 28.8 pg (08/26/16 12:06 PM) MCHC [32.0-36.0 32.4 g/dL g/dL] (08/26/16 12:06 PM) RDW [11.5-14.5 %] 14.6 % *HI* (08/26/16 12:06 PM) Platelet [133-450 370 K/CMM K/CMM] (08/26/16 12:06 PM) MPV [7.4-10.4 fL] 7.6 fL (08/26/16 12:06 PM) Segs [45.0-75.0 %] 83.6 % *HI* (08/26/16 12:06 PM) Lymphocytes 9.6 % [20.0-40.0 %] *LOW* (08/26/16 12:06 PM) Monocytes [2.0-12.0 5.2 % %] (08/26/16 12:06 PM) Eosinophils [0.0-4.0 1.0 % %] (08/26/16 12:06 PM) Basophils [0.0-1.0 0.6 % %] (08/26/16 12:06 PM) Segs-Bands # 11.0 K/CMM [1.5-8.1 K/CMM] *HI* (08/26/16 12:06 PM) Lymphocytes # 1.3 K/CMM [1.0-5.5 K/CMM] (08/26/16 12:06 PM) Monocytes # [0.0-0.8 0.7 K/CMM K/CMM] (08/26/16 12:06 PM) Eosinophils # 0.1 K/CMM [0.0-0.5 K/CMM] (08/26/16 12:06 PM) Basophils # [0.0-0.2 0.1 K/CMM K/CMM] (08/26/16 12:06 PM) Immunizations Given and Recorded Vaccine Date [...]
--- OUTSIDE RECORDS SUMMARY | 2019-09-10 20:16 | XMS REPORT ---
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 = PROT) 7.4 gram/dL 6.4-8.2 N ALBUMIN (test code = ALB) 3.1 g/dL 3.4-5.0 L GLOBULIN (test code = GLOB) 4.3 gram/dL 2.7-4.2 H ALBUMIN/GLOBULIN RATIO (test code = A/G) 0.7 0.75-1.50 L CALCIUM (test code = CA) 9.2 mg/dL 8.5-10.1 N BILIRUBIN TOTAL (test code = BILT) 0.20 mg/dL 0.0-1.0 N SGOT/AST (test code = AST) 21 IUnit/L 15-37 N SGPT/ALT (test code = ALT) 12 IUnit/L 12-78 N ALKALINE PHOSPHATASE TOTAL (test code = ALKP) 57 IUnit/L 45-117 N Note change in reference range due to change in reagent. CBC W/AUTO [id number] 10:24:00* Test Item Value Reference Range Interpretation Comments WHITE BLOOD CELL (test code = WBC) 6.8 K/mm3 4.5-12.5 N RED BLOOD CELL (test code = RBC) 2.83 mill/mm3 3.7-5.2 L HEMOGLOBIN (test code = HGB) 8.8 gram/dL 11.5-15.5 L HEMATOCRIT (test code = HCT) 29.0 % 36.0-46.0 L MEAN CELL VOLUME (test code = MCV) 102.5 fL 80-98 H MEAN CELL HGB (test code = MCH) 31.1 picogram 27.0-33.0 N MEAN CELL HGB CONCETRATION (test code = MCHC) 30.3 gram/dL 33.0-36. 0 L RED CELL DISTRIBUTION WIDTH (test code = RDW) 15.4 % 11.6-16. 2 N RED CELL DISTRIBUTION WIDTH SD (test code = RDW-SD) 57.7 fL 37 .0-51.0 H PLATELET COUNT (test code = PLT) 349 K/mm3 150-450 RESULT VERIFIED BY REPEAT ANALYSIS MEAN PLATELET VOLUME (test code = MPV) 10.3 fL 6.7-11.0 N NEUTROPHIL % (test code = NT%) 53.5 % 39.0-69.0 N IMMATURE GRANULOCYTE % (test code = IG%) 0.1 % 0.0-5.0 N LYMPHOCYTE % (test code = LY%) 34.0 % 25.0-55.0 N MONOCYTE % (test code = MO%) 8.4 % 0.0-10.0 N EOSINOPHIL % (test code = EO%) 3.3 % 0.0-5.0 N BASOPHIL % (test code = BA%) 0.7 % 0.0-1.0 N NUCLEATED RBC % (test code = NRBC%) 0.0 % 0-0 N NEUTROPHIL # (test code = NT#) 3.61 K/mm3 1.8-7.7 N IMMATURE GRANULOCYTE # (test code = IG#) 0.01 x10 3/uL 0-0.03 N LYMPHOCYTE # (test code = LY#) 2.30 K/mm3 1.0-5.0 N MONOCYTE # (test code = MO#) 0.57 K/mm3 0-0.8 N EOSINOPHIL # (test code = EO#) 0.22 K/mm3 0.0-0.5 N BASOPHIL # (test code = BA#) 0.05 K/mm3 0.0-0.2 N NUCLEATED RBC # (test code = NRBC#) 0.00 K/mm3 0.0-0.1 N AB HEPATITIS B [id number] 07:11:00* Test Item Value Reference Range Interpretation Comments AB HEPATITIS B SURFACE (test code = HBSAB) Reactive () Non Reactive: Inconsistent with immunity, less than 10 mIU/mL Reactive: Consistent with immunity, greater than 9.9 mIU/mLPerformed At: [facility] [address] [id number] Yunier Woods MD Ph:[phone] [id number] 06:20:00* Test Item Value Reference Range Interpretation Comments GLUBED (test code = GLUBED) 148 mg/dL 74-106 H Performed by certified facsimile machine operator at [facility] [id number] 20:38:00* Test Item Value Reference Range Interpretation Comments GLUBED (test code = GLUBED) 140 mg/dL 74-106 H Performed by certified facsimile machine operator at [facility] [id number] 18:08:00* Test Item Value Reference Range Interpretation Comments GLUBED (test code = GLUBED) 125 mg/dL 74-106 H Performed by certified facsimile machine operator at [facility] [id number] 12:44:00* Test Item Value Reference Range Interpretation Comments GLUBED (test code = GLUBED) 88 mg/dL 74-106 N Performed by certified facsimile machine operator at [facility] BASIC METABOLIC [id number] 08:10:00* Test Item Value Reference Range Interpretation Comments SODIUM (test code = NA) 138 mmol/L 136-145 N POTASSIUM (test code = K) 4.6 mmol/L 3.5-5.1 N CHLORIDE (test code = CL) 99.0 mmol/L 98-107 N CARBON DIOXIDE (test code = CO2) 29.0 mmol/L 21-32 N ANION GAP (test code = GAP) 14.6 10-20 N GLUCOSE (test code = GLU) 104 mg/dL 74-106 N BLOOD UREA NITROGEN (test code = BUN) 37 mg/dL 7-18 H RESULT VERIFIED BY REPEAT ANALYSIS GLOMERULAR FILTRATION RATE (test code = GFR) 5 mL/min >=60 Estimated GFR by using Modified MDRD formula.Chronic kidney disease is defined as either kidney damageor GFR <60 mL/min/1.73 m2 for >3 months. CREATININE (test code = CREAT) 10.60 mg/dL 0.55-1.02 H Note change in reference range due to change in reagent. BUN/CREATININE RATIO (test code = BUN/CREA) 3.5 10-20 L CALCIUM (test code = CA) 9.2 mg/dL 8.5-10.1 N [id number] 08:10:00* Test Item Value Reference Range Interpretation Comments PHOSPHORUS (test code = PHOS) 8.5 mg/dL 2.5-4.9 H PARATHYROID HORMONE [id number] 08:10:00* Test Item Value Reference Range Interpretation Comments PARATHYROID HORMONE INTACT (test code = PARAI) 392.10 pgram/mL 8.4- 88 H BASIC METABOLIC [id number] 07:04:00* Test Item Value Reference Range Interpretation Comments SODIUM (test code = NA) 138 mmol/L 136-145 N POTASSIUM (test code = K) 4.6 mmol/L 3.5-5.1 N CHLORIDE (test code = CL) 99.0 mmol/L 98-107 N CARBON DIOXIDE (test code = CO2) 29.0 mmol/L 21-32 N ANION GAP (test code = GAP) 14.6 10-20 N GLUCOSE (test code = GLU) 104 mg/dL 74-106 N BLOOD UREA NITROGEN (test code = BUN) 37 mg/dL 7-18 H RESULT VERIFIED BY REPEAT ANALYSIS GLOMERULAR FILTRATION RATE (test code = GFR) 5 mL/min >=60 Estimated GFR by using Modified MDRD formula.Chronic kidney disease is defined as either kidney damageor GFR <60 mL/min/1.73 m2 for >3 months. CREATININE (test code = CREAT) 10.60 mg/dL 0.55-1.02 H Note change in reference range due to change in reagent. BUN/CREATININE RATIO (test code = BUN/CREA) 3.5 10-20 L CALCIUM (test code = CA) 9.2 mg/dL 8.5-10.1 N [id number] 07:04:00* Test Item Value Reference Range Interpretation Comments PHOSPHORUS (test code = PHOS) 8.5 mg/dL 2.5-4.9 H PARATHYROID HORMONE [id number] 07:04:00* Test Item Value Reference Range Interpretation Comments PARATHYROID HORMONE INTACT (test code = PARAI) pgram/mL 8.4-88 [id number] 06:56:00* Test Item Value Reference Range Interpretation Comments GLUBED (test code = GLUBED) 105 mg/dL 74-106 N Performed by certified facsimile machine operator at [facility] BASIC METABOLIC [id number] 06:36:00* Test Item Value Reference Range Interpretation Comments SODIUM (test code = NA) 138 mmol/L 136-145 N POTASSIUM (test code = K) 4.6 mmol/L 3.5-5.1 N CHLORIDE (test code = CL) 99.0 mmol/L 98-107 N CARBON DIOXIDE (test code = CO2) mmol/L 21-32 ANION GAP (test code = GAP) 10-20 GLUCOSE (test code = GLU) mg/dL 74-106 BLOOD UREA NITROGEN (test code = BUN) mg/dL 7-18 GLOMERULAR FILTRATION RATE (test code = GFR) mL/min >=60 CREATININE (test code = CREAT) mg/dL 0.55-1.02 BUN/CREATININE RATIO (test code = BUN/CREA) 10-20 CALCIUM (test code = CA) mg/dL 8.5-10.1 [id number] 06:36:00* Test Item Value Reference Range Interpretation Comments PHOSPHORUS (test code = PHOS) mg/dL 2.5-4.9 PARATHYROID HORMONE [id number] 06:36:00* Test Item Value Reference Range Interpretation Comments PARATHYROID HORMONE INTACT (test code = PARAI) pgram/mL 8.4-88 CBC W/AUTO [id number] 06:34:00* Test Item Value Reference Range Interpretation Comments WHITE BLOOD CELL (test code = WBC) 8.7 K/mm3 4.5-12.5 N RED BLOOD CELL (test code = RBC) 2.68 mill/mm3 3.7-5.2 L HEMOGLOBIN (test code = HGB) 8.4 gram/dL 11.5-15.5 L HEMATOCRIT (test code = HCT) 27.4 % 36.0-46.0 L MEAN CELL VOLUME (test code = MCV) 102.2 fL 80-98 H MEAN CELL HGB (test code = MCH) 31.3 picogram 27.0-33.0 N MEAN CELL HGB CONCETRATION (test code = MCHC) 30.7 gram/dL 33.0-36. 0 L RED CELL DISTRIBUTION WIDTH (test code = RDW) 15.5 % 11.6-16. 2 N RED CELL DISTRIBUTION WIDTH SD (test code = RDW-SD) 57.2 fL 37 .0-51.0 H PLATELET COUNT (test code = PLT) 404 K/mm3 150-450 RESULT VERIFIED BY REPEAT ANALYSIS MEAN PLATELET VOLUME (test code = MPV) 10.2 fL 6.7-11.0 N NEUTROPHIL % (test code = NT%) 57.4 % 39.0-69.0 N IMMATURE GRANULOCYTE % (test code = IG%) 0.2 % 0.0-5.0 N LYMPHOCYTE % (test code = LY%) 29.6 % 25.0-55.0 N MONOCYTE % (test code = MO%) 8.1 % 0.0-10.0 N EOSINOPHIL % (test code = EO%) 4.0 % 0.0-5.0 N BASOPHIL % (test code = BA%) 0.7 % 0.0-1.0 N NUCLEATED RBC % (test code = NRBC%) 0.0 % 0-0 N NEUTROPHIL # (test code = NT#) 4.99 K/mm3 1.8-7.7 N IMMATURE GRANULOCYTE # (test code = IG#) 0.02 x10 3/uL 0-0.03 N LYMPHOCYTE # (test code = LY#) 2.57 K/mm3 1.0-5.0 N MONOCYTE # (test code = MO#) 0.70 K/mm3 0-0.8 N EOSINOPHIL # (test code = EO#) 0.35 K/mm3 0.0-0.5 N BASOPHIL # (test code = BA#) 0.06 K/mm3 0.0-0.2 N NUCLEATED RBC # (test code = NRBC#) 0.00 K/mm3 0.0-0.1 N MANUAL DIFF REQUIRED (test code = MDIFF) NO [id number] 21:04:00* Test Item Value Reference Range Interpretation Comments GLUBED (test code = GLUBED) 106 mg/dL 74-106 N Performed by certified facsimile machine operator at [facility] [id number] 17:03:00* Test Item Value Reference Range Interpretation Comments GLUBED (test code = GLUBED) 115 mg/dL 74-106 H Performed by certified facsimile machine operator at [facility] [id number] 11:56:00* Test Item Value Reference Range Interpretation Comments GLUBED (test code = GLUBED) 126 mg/dL 74-106 H Performed by certified facsimile machine operator at [facility] COMPREHENSIVE METABOLIC [id number] 06:46:00* Test Item Value Reference Range Interpretation Comments SODIUM (test code = NA) 141 mmol/L 136-145 N POTASSIUM (test code = K) 4.3 mmol/L 3.5-5.1 N CHLORIDE (test code = CL) 102.0 mmol/L 98-107 N CARBON DIOXIDE (test code = CO2) 29.0 mmol/L 21-32 N ANION GAP (test code = GAP) 14.3 10-20 N GLUCOSE (test code = GLU) 138 mg/dL 74-106 H BLOOD UREA NITROGEN (test code = BUN) 30 mg/dL 7-18 H RESULT VERIFIED BY REPEAT ANALYSIS GLOMERULAR FILTRATION RATE (test code = GFR) 6 mL/min >=60 Estimated GFR by using Modified MDRD formula.Chronic kidney disease is defined as either kidney damageor GFR <60 mL/min/1.73 m2 for >3 months. CREATININE (test code = CREAT) 8.80 mg/dL 0.55-1.02 H RESULT VERIFIED BY REPEAT ANALYSISNote change in reference range due to change in reagent. BUN/CREATININE RATIO (test code = BUN/CREA) 3.4 10-20 L TOTAL PROTEIN (test code = PROT) 7.7 gram/dL 6.4-8.2 N ALBUMIN (test code = ALB) 3.0 g/dL 3.4-5.0 L GLOBULIN (test code = GLOB) 4.7 gram/dL 2.7-4.2 H ALBUMIN/GLOBULIN RATIO (test code = A/G) 0.6 0.75-1.50 L CALCIUM (test code = CA) 9.0 mg/dL 8.5-10.1 N BILIRUBIN TOTAL (test code = BILT) 0.30 mg/dL 0.0-1.0 N SGOT/AST (test code = AST) 8 IUnit/L 15-37 L SGPT/ALT (test code = ALT) 7 IUnit/L 12-78 L ALKALINE PHOSPHATASE TOTAL (test code = ALKP) 58 IUnit/L 45-117 N Note change in reference range due to change in reagent. [id number] 06:37:00* Test Item Value Reference Range Interpretation Comments TROPONIN-I (test code = TROPI) 0.038 ng/mL 0-0.045 N COMMENTS TO PLACEMENT COORDINATOR: COLLECT 3 HOURS AFTER PREVIOUS SAMPLECOMPREHENSIVE METABOLIC [id number] 06:14:00* Test Item Value Reference Range Interpretation Comments SODIUM (test code = NA) 141 mmol/L 136-145 N POTASSIUM (test code = K) 4.3 mmol/L 3.5-5.1 N CHLORIDE (test code = CL) 102.0 mmol/L 98-107 N CARBON DIOXIDE (test code = CO2) mmol/L 21-32 ANION GAP (test code = GAP) 10-20 GLUCOSE (test code = GLU) mg/dL 74-106 BLOOD UREA NITROGEN (test code = BUN) mg/dL 7-18 GLOMERULAR FILTRATION RATE (test code = GFR) mL/min >=60 CREATININE (test code = CREAT) mg/dL 0.55-1.02 BUN/CREATININE RATIO (test code = BUN/CREA) 10-20 TOTAL PROTEIN (test code = PROT) gram/dL 6.4-8.2 ALBUMIN (test code = ALB) g/dL 3.4-5.0 GLOBULIN (test code = GLOB) gram/dL 2.7-4.2 ALBUMIN/GLOBULIN RATIO (test code = A/G) 0.75-1.50 CALCIUM (test code = CA) mg/dL 8.5-10.1 BILIRUBIN TOTAL (test code = BILT) mg/dL 0.0-1.0 SGOT/AST (test code = AST) IUnit/L 15-37 SGPT/ALT (test code = ALT) IUnit/L 12-78 ALKALINE PHOSPHATASE TOTAL (test code = ALKP) IUnit/L 45-117 CBC W/AUTO [id number] 05:42:00* Test Item Value Reference Range Interpretation Comments WHITE BLOOD CELL (test code = WBC) 7.3 K/mm3 4.5-12.5 N RED BLOOD CELL (test code = RBC) 2.59 mill/mm3 3.7-5.2 L HEMOGLOBIN (test code = HGB) 8.0 gram/dL 11.5-15.5 L HEMATOCRIT (test code = HCT) 25.7 % 36.0-46.0 L MEAN CELL VOLUME (test code = MCV) 99.2 fL 80-98 H MEAN CELL HGB (test code = MCH) 30.9 picogram 27.0-33.0 N MEAN CELL HGB CONCETRATION (test code = MCHC) 31.1 gram/dL 33.0-36. 0 L RED CELL DISTRIBUTION WIDTH (test code = RDW) 15.6 % 11.6-16. 2 N RED CELL DISTRIBUTION WIDTH SD (test code = RDW-SD) 56.8 fL 37 .0-51.0 H PLATELET COUNT (test code = PLT) 349 K/mm3 150-450 N MEAN PLATELET VOLUME (test code = MPV) 10.0 fL 6.7-11.0 N NEUTROPHIL % (test code = NT%) 60.6 % 39.0-69.0 N IMMATURE GRANULOCYTE % (test code = IG%) 0.3 % 0.0-5.0 N LYMPHOCYTE % (test code = LY%) 26.8 % 25.0-55.0 N MONOCYTE % (test code = MO%) 8.0 % 0.0-10.0 N EOSINOPHIL % (test code = EO%) 3.8 % 0.0-5.0 N BASOPHIL % (test code = BA%) 0.5 % 0.0-1.0 N NUCLEATED RBC % (test code = NRBC%) 0.0 % 0-0 N NEUTROPHIL # (test code = NT#) 4.41 K/mm3 1.8-7.7 N IMMATURE GRANULOCYTE # (test code = IG#) 0.02 x10 3/uL 0-0.03 N LYMPHOCYTE # (test code = LY#) 1.95 K/mm3 1.0-5.0 N MONOCYTE # (test code = MO#) 0.58 K/mm3 0-0.8 N EOSINOPHIL # (test code = EO#) 0.28 K/mm3 0.0-0.5 N BASOPHIL # (test code = BA#) 0.04 K/mm3 0.0-0.2 N NUCLEATED RBC # (test code = NRBC#) 0.00 K/mm3 0.0-0.1 N MANUAL DIFF REQUIRED (test code = MDIFF) NO [id number] 00:26:00* Test Item Value Reference Range Interpretation Comments TROPONIN-I (test code = TROPI) 0.031 ng/mL 0-0.045 N COMMENTS TO PLACEMENT COORDINATOR: COLLECT 3 HOURS AFTER PREVIOUS [id number] 21:38:00* Test Item Value Reference Range Interpretation Comments GLUBED (test code = GLUBED) 137 mg/dL 74-106 H Performed by certified facsimile machine [facility]ified [facility]~ AG HEPAT B [id number] 17:49:00* Test Item Value Reference Range Interpretation Comments AG HEPAT B SURF (test code = HBSAG) Nonreactive Index Nonreactive [id number] 17:30:00* Test Item Value Reference Range Interpretation Comments GLYCOSYLATED HEMOGLOBIN (HA1C) (test code = GLYHGB) 5.5 % HbA1 SUGGESTED DIAGNOSIS: HbA1C (%) Diabetic >6.4Prediabetes 5.7 - 6.4Normal <5.7 ESTIMATED AVERAGE GLUCOSE (test code = EAG) 111 MG/DL LIPID PROFILE (CORONARY RISK)2019-08-24 17:18:00* Test Item Value Reference Range Interpretation Comments TRIGLYCERIDES (test code = TRIG) 204 mg/dL 20-150 H CHOLESTEROL (test code = CHOL) 193 mg/dL 0-200 N CHOLESTEROL/HDL RATIO (test code = CHOLHDL) 5.0 RATIO 0-4.9 H RISK ASSOCIATED WITH CHOL/HDL RATIOS: Risk Male Female1/2 AVERAGE 3.43 3.27AVERAGE 4.97 4.442X AVERAGE 9.55 7.053X AVERAGE 23.39 11.04 REFERENCE VALUE IS RELATED TO RISK LEVELS ASRECOMMENDED BY THE JOSE. HEART, LUNG, AND BLOOD INST. HDL CHOLESTEROL (test code = HDL) 34 mg/dL 40-60 L LIPOPROTEIN LDL (test code = LDL) 122 mg/dL 100-129 N RN PERSONNEL, CONTACT PHYSICIAN IMMEDIATELY IF THIS IS A STROKE, AMI OR CAROTID STENOSIS PATIENT WHEN THE LDL >100 (1ST OCCURENCE, THIS ADMISSION) Reference Interval: mg/dL mmol/L Optimal <100 <2.6Near/above optimal 100-129 2.6- 3.3Borderline High 130-159 3.4-4.1High 160-189 4.1-4.9Very High >=190 >=4.9========= This LDL result is a direct measurement.========= FE W/TOTAL IRON BINDING CAP.2019-08-24 17:18:00* Test Item Value Reference Range Interpretation Comments SERUM IRON (test code = IRON) 41 ug/dL 50-175 L TOTAL IRON BINDING CAPACITY (test code = TIBC) 161 mcg/dL 250-450 L IRON SATURATION (test code = FESAT) 25.47 % 13-45 N VITAMIN [id number] 17:18:00* Test Item Value Reference Range Interpretation Comments VITAMIN B12 (test code = VITB12) 519 pg/mL 193-986 N FOLIC [id number] 17:18:00* Test Item Value Reference Range Interpretation Comments FOLIC ACID (test code = FOL) 9.7 ng/mL 3.10-17.50 N THYROID STIMULATING [id number] 17:18:00* Test Item Value Reference Range Interpretation Comments THYROID STIMULATING HORMONE (test code = TSH) 0.644 uIU/mL 0.36-3.7 4 N TSH REFERENCE RANGES: EUTHYROID: 0.35 - 4.3 mIU/mL HYPO : > 5.5 mIU/mL HYPER : < 0.35 mIU/mL [id number] 17:18:00* Test Item Value Reference Range Interpretation Comments FERRITIN (test code = ERIKA) 700 ng/mL 8-388 H - CT LOWER EXTRM W/O C [id number] 16:25:00 Name: GISELA SOL [facility] : 1975 Age/S: 43 / F [address] [facility] Unit #: [id number] Loc: [place] [address] Phys: Reyna Holliday MD Acct: [id number] Dis Date: Status: ADM IN PHONE #: [phone] Exam Date: 08/24/2019 1605 FAX #: [phone] Reason: Left knee pain following fall EXAMS: CPT CODE: [id number] CT LOWER EXTRM W/[place] [address] HISTORY: Pain after fall. COMPARISON: X- ray from same day. CT left knee without contrast: Automated exposure control. Location: TH. Irregularity of the lateral tibial plateau posterior cortex at the articular margin suggesting chronic erosion likely related to osteoarthritis. To lesser extent seen in the medial tibial plateau posteriorly. Marginal osteophytes. Tricompartment joint space narrowing. Moderate suprapatellar joint fluid. No popliteal cyst. Musculature demonstrating atrophy. Subcutaneous tissues are unremarkable. Meniscus and ACL and PCL and MCL and LCL complex are not clearly visible. IMPRESSION: No acute fracture or dislocation of the knee. 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 This is seen at the level of the articular margin. Moderate suprapatellar joint fluid. Marked advanced osteoarthritis for patient's age. Marked tricompartment joint space narrowing with marginal osteophytes. at 1625 R eported and signed by: Curt Ennis M.D. CC: Reyna Holliday MD Technologist:Farshad Jimenes RT(R)(CT) CT DI: DLP: Trnscb Date/Time: 08/24/2019 ([id number]) [email or web address] Orig Print D/T: S: 08/24/2019 (8447) PAGE 1 Signed Report Coronavirus 2019 nCoV Bedside 2019-08-24 15:25:00* Test Item Value Reference Range Interpretation Comments Coronavirus 2019 nCoV Bedside (test code = COVNONPUIBED) Negative Is patient requiring admission or transfer? YIndication for rapid COVID-19 testi ng: Emergent ProcedureB-TYPE NATRIURETIC [id number] 13:23:00* Test Item Value Reference Range Interpretation Comments B-TYPE NATRIURETIC PEPTIDE (test code = BNP) 944.83 pgram/mL 0-100 H BASIC METABOLIC [id number] 13:02:00* Test Item Value Reference Range Interpretation Comments SODIUM (test code = NA) 141 mmol/L 136-145 N POTASSIUM (test code = K) 5.4 mmol/L 3.5-5.1 H CHLORIDE (test code = CL) 103.0 mmol/L 98-107 N CARBON DIOXIDE (test code = CO2) 25.0 mmol/L 21-32 N ANION GAP (test code = GAP) 18.4 10-20 N GLUCOSE (test code = GLU) 127 mg/dL 74-106 H BLOOD UREA NITROGEN (test code = BUN) 59 mg/dL 7-18 H GLOMERULAR FILTRATION RATE (test code = GFR) 3 mL/min >=60 Estimated GFR by using Modified MDRD formula.Chronic kidney disease is defined as either kidney damageor GFR <60 mL/min/1.73 m2 for >3 months. CREATININE (test code = CREAT) 13.90 mg/dL 0.55-1.02 H Note change in reference range due to change in reagent. BUN/CREATININE RATIO (test code = BUN/CREA) 4.2 10-20 L CALCIUM (test code = CA) 8.9 mg/dL 8.5-10.1 N HEPATIC FUNCTION [id number] 13:02:00* Test Item Value Reference Range Interpretation Comments TOTAL PROTEIN (test code = PROT) 7.6 gram/dL 6.4-8.2 N ALBUMIN (test code = ALB) 3.3 g/dL 3.4-5.0 L GLOBULIN (test code = GLOB) 4.3 gram/dL 2.7-4.2 H ALBUMIN/GLOBULIN RATIO (test code = A/G) 0.8 0.75-1.50 N BILIRUBIN TOTAL (test code = BILT) 0.30 mg/dL 0.0-1.0 N BILIRUBIN DIRECT (test code = BILD) 0.10 mg/dL 0.0-0.20 N SGOT/AST (test code = AST) 9 IUnit/L 15-37 L SGPT/ALT (test code = ALT) 8 IUnit/L 12-78 L ALKALINE PHOSPHATASE TOTAL (test code = ALKP) 64 IUnit/L 45-117 N Note change in reference range due to change in reagent. HCG SERUM [id number] 13:02:00* Test Item Value Reference Range Interpretation Comments HCG SERUM QUAL (test code = HCGQL) NEGATIVE NEGATIVE This HCGQL test is NOT applicable for MALE patients.Check with nurse about probable order error.If Tumor Marker Test needed, nurse should order test "HCGTU"(Test #[id number]) [id number] 13:02:00* Test Item Value Reference Range Interpretation Comments TROPONIN-I (test code = TROPI) 0.047 ng/mL 0-0.045 HH Results called to [id number] by VICKY 08/24/19 [id number] results verified and read back by Nurse? Y CBC W/O [id number] 12:54:00* Test Item Value Reference Range Interpretation Comments WHITE BLOOD CELL (test code = WBC) 10.5 K/mm3 4.5-12.5 N RED BLOOD CELL (test code = RBC) 2.68 mill/mm3 3.7-5.2 L HEMOGLOBIN (test code = HGB) 8.4 gram/dL 11.5-15.5 L HEMATOCRIT (test code = HCT) 26.9 % 36.0-46.0 L MEAN CELL VOLUME (test code = MCV) 100.4 fL 80-98 H MEAN CELL HGB (test code = MCH) 31.3 picogram 27.0-33.0 N MEAN CELL HGB CONCETRATION (test code = MCHC) 31.2 gram/dL 33.0-36. 0 L RED CELL DISTRIBUTION WIDTH (test code = RDW) 15.5 % 11.6-16. 2 N PLATELET COUNT (test code = PLT) 393 K/mm3 150-450 N MEAN PLATELET VOLUME (test code = MPV) 10.2 fL 6.7-11.0 N BASIC METABOLIC [id number] 12:51:00* Test Item Value Reference Range Interpretation Comments SODIUM (test code = NA) 141 mmol/L 136-145 N POTASSIUM (test code = K) 5.4 mmol/L 3.5-5.1 H CHLORIDE (test code = CL) 103.0 mmol/L 98-107 N CARBON DIOXIDE (test code = CO2) mmol/L 21-32 ANION GAP (test code = GAP) 10-20 GLUCOSE (test code = GLU) mg/dL 74-106 BLOOD UREA NITROGEN (test code = BUN) mg/dL 7-18 GLOMERULAR FILTRATION RATE (test code = GFR) mL/min >=60 CREATININE (test code = CREAT) mg/dL 0.55-1.02 BUN/CREATININE RATIO (test code = BUN/CREA) 10-20 CALCIUM (test code = CA) mg/dL 8.5-10.1 HEPATIC FUNCTION [id number] 12:51:00* Test Item Value Reference Range Interpretation Comments TOTAL PROTEIN (test code = PROT) gram/dL 6.4-8.2 ALBUMIN (test code = ALB) g/dL 3.4-5.0 GLOBULIN (test code = GLOB) gram/dL 2.7-4.2 ALBUMIN/GLOBULIN RATIO (test code = A/G) 0.75-1.50 BILIRUBIN TOTAL (test code = BILT) mg/dL 0.0-1.0 BILIRUBIN DIRECT (test code = BILD) mg/dL 0.0-0.20 SGOT/AST (test code = AST) IUnit/L 15-37 SGPT/ALT (test code = ALT) IUnit/L 12-78 ALKALINE PHOSPHATASE TOTAL (test code = ALKP) IUnit/L 45-117 HCG SERUM [id number] 12:51:00* Test Item Value Reference Range Interpretation Comments HCG SERUM QUAL (test code = HCGQL) NEGATIVE NEGATIVE This HCGQL test is NOT applicable for MALE patients.Check with nurse about probable order error.If Tumor Marker Test needed, nurse should order test "HCGTU"(Test #550.41026) [id number] 12:51:00* Test Item Value Reference Range Interpretation Comments TROPONIN-I (test code = TROPI) ng/mL 0-0.045 BASIC METABOLIC [id number] 12:50:00* Test Item Value Reference Range Interpretation Comments SODIUM (test code = NA) 141 mmol/L 136-145 N POTASSIUM (test code = K) 5.4 mmol/L 3.5-5.1 H CHLORIDE (test code = CL) 103.0 mmol/L 98-107 N CARBON DIOXIDE (test code = CO2) mmol/L 21-32 ANION GAP (test code = GAP) 10-20 GLUCOSE (test code = GLU) mg/dL 74-106 BLOOD UREA NITROGEN (test code = BUN) mg/dL 7-18 GLOMERULAR FILTRATION RATE (test code = GFR) mL/min >=60 CREATININE (test code = CREAT) mg/dL 0.55-1.02 BUN/CREATININE RATIO (test code = BUN/CREA) 10-20 CALCIUM (test code = CA) mg/dL 8.5-10.1 HEPATIC FUNCTION [id number] 12:50:00* Test Item Value Reference Range Interpretation Comments TOTAL PROTEIN (test code = PROT) gram/dL 6.4-8.2 ALBUMIN (test code = ALB) g/dL 3.4-5.0 GLOBULIN (test code = GLOB) gram/dL 2.7-4.2 ALBUMIN/GLOBULIN RATIO (test code = A/G) 0.75-1.50 BILIRUBIN TOTAL (test code = BILT) mg/dL 0.0-1.0 BILIRUBIN DIRECT (test code = BILD) mg/dL 0.0-0.20 SGOT/AST (test code = AST) IUnit/L 15-37 SGPT/ALT (test code = ALT) IUnit/L 12-78 ALKALINE PHOSPHATASE TOTAL (test code = ALKP) IUnit/L 45-117 HCG SERUM [id number] 12:50:00* Test Item Value Reference Range Interpretation Comments HCG SERUM QUAL (test code = HCGQL) NEGATIVE [id number] 12:50:00* Test Item Value Reference Range Interpretation Comments TROPONIN-I (test code = TROPI) ng/mL 0-0.045 - XR KNEE 1 OR 2 V [id number] 11:55:00 FAX: Reyna Holliday MD [facility]: B St: REG Name: GISELA RAYMOND [facility] : [birth year] Age/S: 43/F [address] [facility] Unit #: [id number] Loc: [place] [address] Phys: Reyna Holliday MD Acct: [id number] Dis Date: Status: REG ER PHONE #: [phone] Exam Date: 08/24/2019 1138 FAX #: [phone] Reason: KNEE PAIN AFTER FALL EXAMS: CPT CODE: [id number] XR KNEE 1 OR 2 [place] LT [address] EXAM: Left knee, 2 views; INFORMATION: Knee pain after fall; FINDINGS: There is slight cortical irregularity along the lateral aspect of the tibial platea u which is suspicious for nondisplaced fracture.. Compared with a study fr June 04, 2015 there has been progressive narrowing of the medial co mpartment of the joint space. No further changes. IMPRESSI ON: 1. Suspicion of nondisplaced fracture of the lateral aspect of the tibial plateau. 2. Moderate osteoarthritis of the left knee. This has progressed compared with a study from May 2015. Location code: [facility] at 1155 Reported and signed by: Severo Govea M.D. CC: Reyna Holliday MD Technologist: KAITLYN MORRWO RT(R) Trnscrd Date/Time/By: 020 (7139) : By: RosalbaGRW Orig Print D/T: S: 08/24/2019 (3702) PAGE 1 Signed Report - XR CHEST 1 [id number] 11:49:00 FAX: Reyna Holliday MD [facility]: St: REG Name: GISELA RAYMOND [facility] : [birth year] 72 Age/S: 43/F [address] [facility] Unit #: [id number] Loc: [place] [address] Phys: Reyna Holliday MD Acct: [id number] Dis Date: Status: REG ER PHONE #: [phone] Exam Date: 08/24/2019 1131 FAX #: [phone] Reason: Shortness of Breath EXAMS: CPT CODE: [id number] XR CHEST 1 V 68916 EXAM: Chest x-ray, one view; INFORMATION: Shortness of breath, lethargic; FINDINGS: There is a moderate right-sided pleural effusion and probably a small left pleural effusion. Increased interstitial markings in both lungs and also patchy alveolar densities in the basilar portions of the right lung. Heart is borderline in size. A previously seen left IJ hemodialysis c atheter is no longer present. IMPRESSION: 1. Interstitia l and right basilar alveolar pulmonary edema. 2. Moderate right and prob able small left pleural effusion. 3. Heart borderline in size. Location code: [facility] at 1149 Reported and signed by: Severo Govea M.D. CC: Reyna Holliday MD Technologist: LILLI MORROW RT(R) Trnscrd Date/Time/By: (7467) : By: RosalbaGRW Orig Print D/T: S: 08/24/2019 (5559) PAGE 1 Signed Report Hepatitis B Surface [id number] 00:51:00* Test Item Value Reference Range Interpretation Comments Hep B Surf Ab Result (test code = 64317140) 318.81 Refer to result comment. mIU/mL Negative: < 8.00 mIU/mL Cho zone: > = 8.00 mIU/mL to < 12.00 mIU/mL Positive: > = 12.00 mIU/mL Hep B Surf Ab Intepretation (test code = 30004-1) Positive Nega tive A Lab Interpretation (test code = 17222-7) [facility]normal [facility] [id number] 00:49:00* Test Item Value Reference Range Interpretation Comments Hep B Surface Ag (test code = 5196-1) Negative Negative Lab Interpretation (test code = 08103-0) Normal [facility] GLUCOSE POC docked [id number] 17:07:00* Test Item Value Reference Range Interpretation Comments Glucose POC (test code = 31368477) 117 mg/dL 74-106 H Lab Interpretation (test code = 35656-2) Abnormal [place] [address] LEAD [id number] 16:53:1712 LEAD EKG [facility] Test Date: [id number] Name: GISELA LOPES UKAEGBU Department: 6520Patient ID: [id number] Room: Gender: F Clerk Of Court: [id number]: 1975 Requested By: VENKAT Pickard Number: [id number] Elizabeth MD: Abdullahi Anderson MeasurementsIntervals [place] Rate: 96 P: 53PR: 158 QRS: 13QRSD: 79 T: 112QT: 346 QTc: 439 Interpretive StatementsSINUS RHYTHMPOSSIBLE LEFT ATRIAL ENLARGEMENTPOSSIBLE LEFT VENTRICULAR HYPERTROPHYMODERATE T-WAVE ABNORMALITY, CONSIDER LATERAL ISCHEMIAElectronically Signed On 06-28-2019 10:53:15 RETURN AGENT AIRPORT by [facility] LEAD EKG 2019-06-28 16:53:0912 LEAD EKG [facility] Test Date: [id number] Name: GISELA LOPES UKAEGBU Department: 6520Patient ID: [id number] Room: [facility] SGender: F Clerk Of Court: [id number]: 1975 Requested By: ANGEOL Milligan Number: [id number] Reading MD: Abdullahi Anderson MeasurementsIntervals [place] Rate: 96 P: 53PR: 153 QRS: 13QRSD: 81 T: 113QT: 347 QTc: 439 Interpretive StatementsSINUS RHYTHMPOSSIBLE LEFT ATRIAL ENLARGEMENTPOSSIBLE LEFT VENTRICULAR HYPERTROPHYMODERATE T-WAVE ABNORMALITY, CONSIDER LATERAL ISCHEMIAElectronically Signed On 06-28-2019 10:53:05 RETURN AGENT AIRPORT by Abdullahi AmesMulti[facility] HospitalCT Urine - [id number] 14:21:00* Test Item Value Reference Range Interpretation Comments Control (test code = 7172) pass (test code = 7173) negative Lab Interpretation (test code = 69591-3) Normal Kasson [id number] 14:06:00* Test Item Value Reference Range Interpretation Comments Color (test code = 09409180) Yellow Colorless, Straw, Yellow Clarity (test code = 89740227) Hazy Clear A Spec Eure, Ur (test code = 79772392) 1.010 1.001-1.035 pH, Ur (test code = 01007475) 8.0 5.0-8.0 Protein, Ur (test code = 66843804) 3+ Negative mg/dL A Glucose, Ur (test code = 01865984) 3+ Negative mg/dL A Ketone, Ur (test code = 37037587) Negative Negative mg/dL Bilirubin, Ur (test code = 47412662) Negative Negative mg/dL Nitrite, Ur (test code = 06068135) Negative Negative Leukocyte (test code = 27297690) Negative Negative mg/dL Blood, Ur (test code = 93484147) Negative Negative mg/dL RBC (test code = 40379457) 3 0- 4 /HPF WBC (test code = 43620254) 1 0- 5 /HPF Epithelial Cell (test code = 57490249) 8 <=1 /HPF H Urobilinogen, Ur (test code = 93836862) <1.0 <1.0 EU/dL Lab Interpretation (test code = 68555-4) Abnormal [facility] HillPqxnpkEdpbio5500-68-81 12:34:00* Test Item Value Reference Range Interpretation Comments Lipase (test code = 67962546) 36 U/L 11-82 Lab Interpretation (test code = 94128-7) Normal [facility] HillLiver Mzaiqbx1567-71-10 12:34:00* Test Item Value Reference Range Interpretation Comments Bilirubin, Total (test code = 2885-2) 0.4 mg/dL 0.2-1.2 Alkaline Phosphatase (test code = 62055351) 66 U/L 34-104 AST (test code = 61169916) 8 U/L 13-39 L Direct Bilirubin (test code = 1968-7) 0.1 mg/dL 0-0.2 ALT (test code = 44761921) 4 U/L 7-52 L Albumin (test code = 28688-0) 3.7 g/dL 3.7-5.3 Lab Interpretation (test code = 23638-5) Abnormal [facility] BMP POC docked [id number] 12:19:00* Test Item Value Reference Range Interpretation Comments Sodium POC (test code = 15227231) 136 mmol/L 136-145 Potassium POC (test code = 52944225) 6.0 mmol/L 3.5-5.1 H Chloride POC (test code = 61852363) 105 mmol/L 98-107 TCO2 POC (test code = 77191300) 22 mmol/L 21-32 Urea Nitrogen POC (test code = 99621229) 71 mg/dL 7-18 H Glucose POC (test code = 09202870) 116 mg/dL 74-106 H Hemoglobin POC (test code = 77201200) 10.9 g/dL 12-16 L Hematocrit POC (test code = 22258673) 32.0 % 37-47 L Lab Interpretation (test code = 20315-3) Abnormal [facility] CREATININE POC docked [id number] 12:18:00* Test Item Value Reference Range Interpretation Comments Creatinine POC (test code = 82039594) 18.9 mg/dL 0.6-1.3 Physician Notified GFR, Estimated (test code = 07107493) 2 >=90 mL/min/1.73 m2 L eGFR If Africn Am (test code = 20167618) 2 >=90 mL/min/1 .73 m2 L Lab Interpretation (test code = 38706-9) Abnormal [facility] TROPONIN I POC docked [id number] 12:13:00* Test Item Value Reference Range Interpretation Comments Troponin POC (test code = 49578600) 0.03 ng/mL 0-0.08 Lab Interpretation (test code = 75817-2) Normal [facility] HillCBC/[id number] 12:11:00* Test Item Value Reference Range Interpretation Comments WBC (test code = 6690-2) 10.3 K/uL 4.5-11 RBC (test code = 789-8) 3.42 4.20- 5.40 M/uL L Hemoglobin (test code = 718-7) 10.7 g/dL 12-16 L Hematocrit (test code = 4544-3) 33.9 % 37-47 L MCV (test code = 787-2) 99.1 fL 82-92 H MCH (test code = 785-6) 31.3 pg 27-32 MCHC (test code = 786-4) 31.6 g/dL 32-36 L RDW (test code = 06111-7) 55.9 fL 36.4-46.3 H Platelet (test code = 777-3) 305 K/uL 150-400 Mean Platelet Volume (test code = 92851-7) 10.0 fL 9.4-12.4 Percent NRBC (test code = 46156028) 0.0 % Neutrophil (test code = 770-8) 66.9 % 34-70 Lymphs (test code = 736-9) 21.4 % 20-50 Monocytes (test code = 5905-5) 7.7 % 5-12 Eos (test code = 713-8) 3.0 % 0.7-5 Basos (test code = 706-2) 0.7 % 0.1-1.2 Immature Granulocytes (test code = 12606328) 0.3 % 0-0.5 Neutrophils (Absolute) (test code = 04070946) 6.92 K/uL 1.56-6.1 3 H Lymphs (Absolute) (test code = 72459375) 2.21 K/uL 1.18-3.74 Monocytes(Absolute) (test code = 35918995) 0.80 K/uL 0.24-0.36 H Eos (Absolute) (test code = 05149465) 0.31 K/uL 0.04-0.36 Baso (Absolute) (test code = 91485934) 0.07 K/uL 0.01-0.08 Immature Grans (Abs) (test code = 08310035) 0.03 K/uL 0-0.03 Absolute NRBC (test code = 70994353) 0.00 K/uL Lab Interpretation (test code = 02695-4) Abnormal [facility] HillXRAY CHEST 1 [id number] 10:24:20IMPRESSION: 1. Mild cardiomegaly with interstitial pulmonary edema.2. Trace bilateral pleural effusions. Signed By: Samuel Culver MD, 06/28/2019 4:24 AM Interface, Rad/Mammog In - 06/28/2019 4:29 AM CSTEXAM: XR CHEST 1 VIEWDATE: 06/28/2019 4:19 AM INDICATION: shortness of breathCOMPARISON: 11/04/2017TECHNIQUE: Frontal view of the chestDISCUSSION: Left IJ approach dialysis catheter with tip terminating inthe cavoatrial junction. Hazy and interstitial opacities in the lungs,burns ggesting interstitial pulmonary edema. Mild enlargement of thecardiomediastinal silhouette. No pneumothorax on this view. Minimalblunting of the bilateral costo phrenic angles. No acute osseousabnormality.IMPRESSIONIMPRESSION: 1. Mild cardio megaly with interstitial pulmonary edema.2. Trace bilateral pleural effusions.Si gned By: Samuel Culver MD, 06/28/2019 4:24 [facility]pgpxrBWJGKD0179-97-07 16:59:00* Test Item Value Reference Range Interpretation Comments GLUBED (test code = GLUBED) 359 mg/dL 74-106 H Performed by certified [facility]simile [facility] operator [facility]~ [id number] 13:59:00* Test Item Value Reference Range Interpretation Comments GLUBED (test code = GLUBED) 251 mg/dL 74-106 H Performed by certified facsimile machine operator at [facility] [id number] 08:27:00* Test Item Value Reference Range Interpretation Comments GLUBED (test code = GLUBED) 293 mg/dL 74-106 H Performed by certified facsimile machine operator at [facility] BASIC METABOLIC [id number] 07:57:00* Test Item Value Reference Range Interpretation Comments SODIUM (test code = NA) 135 mmol/L 136-145 L POTASSIUM (test code = K) 5.3 mmol/L 3.5-5.1 H CHLORIDE (test code = CL) 105.0 mmol/L 98-107 N CARBON DIOXIDE (test code = CO2) 18.0 mmol/L 21-32 L ANION GAP (test code = GAP) 17.3 10-20 N GLUCOSE (test code = GLU) 215 mg/dL 74-106 H BLOOD UREA NITROGEN (test code = BUN) 34 mg/dL 7-18 H RESULT VERIFIED BY REPEAT ANALYSIS GLOMERULAR FILTRATION RATE (test code = GFR) 8 mL/min >=60 Estimated GFR by using Modified MDRD formula.Chronic kidney disease is defined as either kidney damageor GFR <60 mL/min/1.73 m2 for >3 months. CREATININE (test code = CREAT) 6.70 mg/dL 0.55-1.02 H Note change in reference range due to change in reagent. BUN/CREATININE RATIO (test code = BUN/CREA) 5.1 10-20 L CALCIUM (test code = CA) 8.2 mg/dL 8.5-10.1 L [id number] 07:51:00* Test Item Value Reference Range Interpretation Comments GLYCOSYLATED HEMOGLOBIN (HA1C) (test code = GLYHGB) 6.2 % HbA1 4. 8-6.0 H ESTIMATED AVERAGE GLUCOSE (test code = EAG) 131 MG/DL [id number] 22:05:00* Test Item Value Reference Range Interpretation Comments GLUBED (test code = GLUBED) 203 mg/dL 74-106 H Performed by certified facsimile machine operator at [facility] - CT ABD PELVIS W/O [id number] 16:56:00 Name: GISELA SOL [facility] : 1975 Age/S: 42 / F [address] Unit #: [id number] Loc: [place] [address] Phys: Maria L Garcia MD Acct: [id number] Dis Date: Status: ADM IN PHONE #: [phone] Exam Date: 08/03/2018 1642 FAX #: [phone] Reason: abdominal pain EXAMS: CPT CODE: [id number] CT ABD PELVIS W/O CONT 30631 REASON FOR EXAM: abdominal pain EXAM ORDER DATE: 08/03/2018 2:20 PM Ordering M.D.: Maria L Garcia MD PROCEDURE: - CT ABD PELVIS W/O CONT COMPARISON: FINDINGS: CT images of the abdomen and pelvis were obtained without IV and without oral contrast at 5mm. Dose modulation, iterative reconstruction, and/or weight based adjustment of the MA/KV was utilized to reduce the radiation dose to as low as reasonably achievable. The liver, spleen, and pancreas are grossly within normal limits. The patient is status post cholecystectomy The kidneys are atrophic consistent with chronic kidney disease. The urinary bladder is contracted with a Palomo catheter The colon, small bowel, and stomach are within normal limits without evidence of obstruction. The appendix is unremarkable No evidence of free air or free fluid. The uterus is unremarkable. IMPRESSION: No acute findings in the abdomen. Electronically Signed by Chris Cho on 0 08/03/2018 at 1656 Reported and signed by: Trey Cho M.D. CC: Maria L Garcia MD Technologis t:ANTONIA COSTA RT(R) CT CTDI: DLP: Trnscb Date/Time: 03/2019 (1656) Kathie Orig Print D/T: S: 08/03/2018 (1 659) CTDI: DLP: PAGE 1 Signed Rep ort [id number] 16:32:00* Test Item Value Reference Range Interpretation Comments GLUBED (test code = GLUBED) 234 mg/dL 74-106 H Performed by certified facsimile machine operator at [facility] CBC W/AUTO [id number] 14:32:00* Test Item Value Reference Range Interpretation Comments WHITE BLOOD CELL (test code = WBC) 9.5 K/mm3 4.5-12.5 N RED BLOOD CELL (test code = RBC) 2.54 mill/mm3 3.7-5.2 L HEMOGLOBIN (test code = HGB) 7.6 gram/dL 11.5-15.5 L HEMATOCRIT (test code = HCT) 25.4 % 36.0-46.0 L MEAN CELL VOLUME (test code = MCV) 100.0 fL 80-98 H MEAN CELL HGB (test code = MCH) 29.9 picogram 27.0-33.0 N MEAN CELL HGB CONCETRATION (test code = MCHC) 29.9 gram/dL 33.0-36. 0 L RED CELL DISTRIBUTION WIDTH (test code = RDW) 17.0 % 11.6-16. 2 H RED CELL DISTRIBUTION WIDTH SD (test code = RDW-SD) 60.1 fL 37 .0-51.0 H PLATELET COUNT (test code = PLT) 278 K/mm3 150-450 N MEAN PLATELET VOLUME (test code = MPV) 10.1 fL 6.7-11.0 N NEUTROPHIL % (test code = NT%) 55.8 % 39.0-69.0 N IMMATURE GRANULOCYTE % (test code = IG%) 0.5 % 0.0-5.0 N LYMPHOCYTE % (test code = LY%) 32.8 % 25.0-55.0 N MONOCYTE % (test code = MO%) 7.8 % 0.0-10.0 N EOSINOPHIL % (test code = EO%) 2.5 % 0.0-5.0 N BASOPHIL % (test code = BA%) 0.6 % 0.0-1.0 N NUCLEATED RBC % (test code = NRBC%) 0.2 % 0-0 H NEUTROPHIL # (test code = NT#) 5.31 K/mm3 1.8-7.7 N IMMATURE GRANULOCYTE # (test code = IG#) 0.05 x10 3/uL 0-0.03 H LYMPHOCYTE # (test code = LY#) 3.13 K/mm3 1.0-5.0 N MONOCYTE # (test code = MO#) 0.74 K/mm3 0-0.8 N EOSINOPHIL # (test code = EO#) 0.24 K/mm3 0.0-0.5 N BASOPHIL # (test code = BA#) 0.06 K/mm3 0.0-0.2 N NUCLEATED RBC # (test code = NRBC#) 0.02 K/mm3 0.0-0.1 N MANUAL DIFF REQUIRED (test code = MDIFF) NO, ONLY SCAN NEEDED DIFFERENTIAL [id number] 14:32:00* Test Item Value Reference Range Interpretation Comments STAIN ACCEPTABILITY (test code = STN ACCEPTABLE) STAIN ACCEPTABLE POLYCHROMASIA (test code = POLC) 1+ HYPOCHROMIA (test code = HYPO) 1+ POIKILOCYTOSIS (test code = POIK) 1+ ANISOCYTOSIS (test code = ANISO) 2+ MACROCYTOSIS (test code = MACR) 1+ PLATELET ESTIMATE (test code = PLTEST) ADEQUATE PLATELET MORPHOLOGY (test code = PLTMORPH) SIZE VARIABLE URINALYSIS [id number] 11:15:00* Test Item Value Reference Range Interpretation Comments UA COLOR (test code = COLU) STRAW YELLOW UA APPEARANCE (test code = APPU) CLEAR CLEAR UA GLUCOSE DIPSTICK (test code = DGLUU) >=500 mg/dL NEGATIVE A UA BILIRUBIN DIPSTICK (test code = BILU) NEGATIVE mg/dL NEGATIVE UA KETONE DIPSTICK (test code = KETU) NEGATIVE mg/dL NEGATIVE UA SPECIFIC GRAVITY (test code = SGU) 1.011 1.001-1.035 UA BLOOD DIPSTICK (test code = BING) Negative mg/dL NEGATIVE UA PH DIPSTICK (test code = ROXI) 8.0 5.0-8.0 UA PROTEIN DIPSTICK (test code = PROU) >500 (3+) mg/dL NEGATIVE A UA UROBILINIOGEN DIPSTICK (test code = URO) NEGATIVE mg/dL NEGATIVE UA NITRITE DIPSTICK (test code = HORTENCIA) NEGATIVE NEGATIVE UA LEUKOCYTE ESTERASE W REFLEX (test code = LEUUR) NEGATIVE [place]/uL NEGATIVE UA WBC (test code = WBCU) 0-5 per HPF 0-5 UA RBC (test code = RBCU) 0-2 #/HPF 0-5 UA EPITHELIAL CELLS (test code = EPIU) FEW per HPF FEW UA TRANSITIONAL CELLS (test code = TRANU) OCCASIONAL #/HPF 0-5 URINALYSIS [id number] 11:14:00* Test Item Value Reference Range Interpretation Comments UA COLOR (test code = COLU) STRAW YELLOW UA APPEARANCE (test code = APPU) CLEAR CLEAR UA GLUCOSE DIPSTICK (test code = DGLUU) >=500 mg/dL NEGATIVE A UA BILIRUBIN DIPSTICK (test code = BILU) NEGATIVE mg/dL NEGATIVE UA KETONE DIPSTICK (test code = KETU) NEGATIVE mg/dL NEGATIVE UA SPECIFIC GRAVITY (test code = SGU) 1.011 1.001-1.035 UA BLOOD DIPSTICK (test code = BING) Negative mg/dL NEGATIVE UA PH DIPSTICK (test code = ROXI) 8.0 5.0-8.0 UA PROTEIN DIPSTICK (test code = PROU) >500 (3+) mg/dL NEGATIVE A UA UROBILINIOGEN DIPSTICK (test code = URO) NEGATIVE mg/dL NEGATIVE UA NITRITE DIPSTICK (test code = HORTENCIA) NEGATIVE NEGATIVE UA LEUKOCYTE ESTERASE W REFLEX (test code = LEUUR) NEGATIVE [place]/uL NEGATIVE UA WBC (test code = WBCU) per HPF 0-5 UA RBC (test code = RBCU) per HPF 0-5 UA EPITHELIAL CELLS (test code = EPIU) per HPF Few UA BACTERIA (test code = BACU) per HPF NONE URINALYSIS [id number] 11:14:00* Test Item Value Reference Range Interpretation Comments UA COLOR (test code = COLU) STRAW YELLOW UA APPEARANCE (test code = APPU) CLEAR CLEAR UA GLUCOSE DIPSTICK (test code = DGLUU) >=500 mg/dL NEGATIVE A UA BILIRUBIN DIPSTICK (test code = BILU) NEGATIVE mg/dL NEGATIVE UA KETONE DIPSTICK (test code = KETU) NEGATIVE mg/dL NEGATIVE UA SPECIFIC GRAVITY (test code = SGU) 1.011 1.001-1.035 UA BLOOD DIPSTICK (test code = BING) Negative mg/dL NEGATIVE UA PH DIPSTICK (test code = ROXI) 8.0 5.0-8.0 UA PROTEIN DIPSTICK (test code = PROU) >500 (3+) mg/dL NEGATIVE A UA UROBILINIOGEN DIPSTICK (test code = URO) NEGATIVE mg/dL NEGATIVE UA NITRITE DIPSTICK (test code = HORTENCIA) NEGATIVE NEGATIVE UA LEUKOCYTE ESTERASE W REFLEX (test code = LEUUR) NEGATIVE [place]/uL NEGATIVE UA WBC (test code = WBCU) per HPF 0-5 UA RBC (test code = RBCU) per HPF 0-5 UA EPITHELIAL CELLS (test code = EPIU) per HPF Few UA BACTERIA (test code = BACU) per HPF NONE COMPREHENSIVE METABOLIC [id number] 11:11:00* Test Item Value Reference Range Interpretation Comments SODIUM (test code = NA) 135 mmol/L 136-145 L POTASSIUM (test code = K) 4.4 mmol/L 3.5-5.1 N CHLORIDE (test code = CL) 101.0 mmol/L 98-107 N CARBON DIOXIDE (test code = CO2) 25.0 mmol/L 21-32 N ANION GAP (test code = GAP) 13.4 10-20 N GLUCOSE (test code = GLU) 311 mg/dL 74-106 H BLOOD UREA NITROGEN (test code = BUN) 46 mg/dL 7-18 H GLOMERULAR FILTRATION RATE (test code = GFR) 6 mL/min >=60 Estimated GFR by using Modified MDRD formula.Chronic kidney disease is defined as either kidney damageor GFR <60 mL/min/1.73 m2 for >3 months. CREATININE (test code = CREAT) 8.20 mg/dL 0.55-1.02 H Note change in reference range due to change in reagent. BUN/CREATININE RATIO (test code = BUN/CREA) 5.6 10-20 L TOTAL PROTEIN (test code = PROT) 7.7 gram/dL 6.4-8.2 N ALBUMIN (test code = ALB) 3.1 g/dL 3.4-5.0 L GLOBULIN (test code = GLOB) 4.6 gram/dL 2.7-4.2 H ALBUMIN/GLOBULIN RATIO (test code = A/G) 0.7 0.75-1.50 L CALCIUM (test code = CA) 7.8 mg/dL 8.5-10.1 L BILIRUBIN TOTAL (test code = BILT) 0.30 mg/dL 0.0-1.0 N SGOT/AST (test code = AST) 12 IUnit/L 15-37 L SGPT/ALT (test code = ALT) 13 IUnit/L 12-78 N ALKALINE PHOSPHATASE TOTAL (test code = ALKP) 88 IUnit/L 45-117 N Note change in reference range due to change in reagent. COMPREHENSIVE METABOLIC [id number] 11:01:00* Test Item Value Reference Range Interpretation Comments SODIUM (test code = NA) 135 mmol/L 136-145 L POTASSIUM (test code = K) 4.4 mmol/L 3.5-5.1 N CHLORIDE (test code = CL) 101.0 mmol/L 98-107 N CARBON DIOXIDE (test code = CO2) mmol/L 21-32 ANION GAP (test code = GAP) 10-20 GLUCOSE (test code = GLU) mg/dL 74-106 BLOOD UREA NITROGEN (test code = BUN) mg/dL 7-18 GLOMERULAR FILTRATION RATE (test code = GFR) mL/min >=60 CREATININE (test code = CREAT) mg/dL 0.55-1.02 BUN/CREATININE RATIO (test code = BUN/CREA) 10-20 TOTAL PROTEIN (test code = PROT) gram/dL 6.4-8.2 ALBUMIN (test code = ALB) g/dL 3.4-5.0 GLOBULIN (test code = GLOB) gram/dL 2.7-4.2 ALBUMIN/GLOBULIN RATIO (test code = A/G) 0.75-1.50 CALCIUM (test code = CA) mg/dL 8.5-10.1 BILIRUBIN TOTAL (test code = BILT) mg/dL 0.0-1.0 SGOT/AST (test code = AST) IUnit/L 15-37 SGPT/ALT (test code = ALT) IUnit/L 12-78 ALKALINE PHOSPHATASE TOTAL (test code = ALKP) IUnit/L 45-117 CBC W/AUTO [id number] 10:47:00* Test Item Value Reference Range Interpretation Comments WHITE BLOOD CELL (test code = WBC) 9.5 K/mm3 4.5-12.5 N RED BLOOD CELL (test code = RBC) 2.54 mill/mm3 3.7-5.2 L HEMOGLOBIN (test code = HGB) 7.6 gram/dL 11.5-15.5 L HEMATOCRIT (test code = HCT) 25.4 % 36.0-46.0 L MEAN CELL VOLUME (test code = MCV) 100.0 fL 80-98 H MEAN CELL HGB (test code = MCH) 29.9 picogram 27.0-33.0 N MEAN CELL HGB CONCETRATION (test code = MCHC) 29.9 gram/dL 33.0-36. 0 L RED CELL DISTRIBUTION WIDTH (test code = RDW) 17.0 % 11.6-16. 2 H RED CELL DISTRIBUTION WIDTH SD (test code = RDW-SD) 60.1 fL 37 .0-51.0 H PLATELET COUNT (test code = PLT) 278 K/mm3 150-450 N MEAN PLATELET VOLUME (test code = MPV) 10.1 fL 6.7-11.0 N NEUTROPHIL % (test code = NT%) 55.8 % 39.0-69.0 N IMMATURE GRANULOCYTE % (test code = IG%) 0.5 % 0.0-5.0 N LYMPHOCYTE % (test code = LY%) 32.8 % 25.0-55.0 N MONOCYTE % (test code = MO%) 7.8 % 0.0-10.0 N EOSINOPHIL % (test code = EO%) 2.5 % 0.0-5.0 N BASOPHIL % (test code = BA%) 0.6 % 0.0-1.0 N NUCLEATED RBC % (test code = NRBC%) 0.2 % 0-0 H NEUTROPHIL # (test code = NT#) 5.31 K/mm3 1.8-7.7 N IMMATURE GRANULOCYTE # (test code = IG#) 0.05 x10 3/uL 0-0.03 H LYMPHOCYTE # (test code = LY#) 3.13 K/mm3 1.0-5.0 N MONOCYTE # (test code = MO#) 0.74 K/mm3 0-0.8 N EOSINOPHIL # (test code = EO#) 0.24 K/mm3 0.0-0.5 N BASOPHIL # (test code = BA#) 0.06 K/mm3 0.0-0.2 N NUCLEATED RBC # (test code = NRBC#) 0.02 K/mm3 0.0-0.1 N MANUAL DIFF REQUIRED (test code = MDIFF) NO, ONLY SCAN NEEDED DIFFERENTIAL [id number] 10:47:00* Test Item Value Reference Range Interpretation Comments STAIN ACCEPTABILITY (test code = STN ACCEPTABLE) CABOT RINGS (test code = CAB) MORPHOLOGY COMMENT (test code = MOC) PLATELET ESTIMATE (test code = PLTEST) PLATELET MORPHOLOGY (test code = PLTMORPH) CBC W/AUTO [id number] 10:47:00* Test Item Value Reference Range Interpretation Comments WHITE BLOOD CELL (test code = WBC) 9.5 K/mm3 4.5-12.5 N RED BLOOD CELL (test code = RBC) 2.54 mill/mm3 3.7-5.2 L HEMOGLOBIN (test code = HGB) 7.6 gram/dL 11.5-15.5 L HEMATOCRIT (test code = HCT) 25.4 % 36.0-46.0 L MEAN CELL VOLUME (test code = MCV) 100.0 fL 80-98 H MEAN CELL HGB (test code = MCH) 29.9 picogram 27.0-33.0 N MEAN CELL HGB CONCETRATION (test code = MCHC) 29.9 gram/dL 33.0-36. 0 L RED CELL DISTRIBUTION WIDTH (test code = RDW) 17.0 % 11.6-16. 2 H RED CELL DISTRIBUTION WIDTH SD (test code = RDW-SD) 60.1 fL 37 .0-51.0 H PLATELET COUNT (test code = PLT) 278 K/mm3 150-450 N MEAN PLATELET VOLUME (test code = MPV) 10.1 fL 6.7-11.0 N NEUTROPHIL % (test code = NT%) 55.8 % 39.0-69.0 N IMMATURE GRANULOCYTE % (test code = IG%) 0.5 % 0.0-5.0 N LYMPHOCYTE % (test code = LY%) 32.8 % 25.0-55.0 N MONOCYTE % (test code = MO%) 7.8 % 0.0-10.0 N EOSINOPHIL % (test code = EO%) 2.5 % 0.0-5.0 N BASOPHIL % (test code = BA%) 0.6 % 0.0-1.0 N NUCLEATED RBC % (test code = NRBC%) 0.2 % 0-0 H NEUTROPHIL # (test code = NT#) 5.31 K/mm3 1.8-7.7 N IMMATURE GRANULOCYTE # (test code = IG#) 0.05 x10 3/uL 0-0.03 H LYMPHOCYTE # (test code = LY#) 3.13 K/mm3 1.0-5.0 N MONOCYTE # (test code = MO#) 0.74 K/mm3 0-0.8 N EOSINOPHIL # (test code = EO#) 0.24 K/mm3 0.0-0.5 N BASOPHIL # (test code = BA#) 0.06 K/mm3 0.0-0.2 N NUCLEATED RBC # (test code = NRBC#) 0.02 K/mm3 0.0-0.1 N MANUAL DIFF REQUIRED (test code = MDIFF) NO, ONLY SCAN NEEDED DIFFERENTIAL [id number] 10:47:00* Test Item Value Reference Range Interpretation Comments STAIN ACCEPTABILITY (test code = STN ACCEPTABLE) CABOT RINGS (test code = CAB) MORPHOLOGY COMMENT (test code = MOC) PLATELET ESTIMATE (test code = PLTEST) PLATELET MORPHOLOGY (test code = PLTMORPH) CBC W/AUTO [id number] 10:47:00* Test Item Value Reference Range Interpretation Comments WHITE BLOOD CELL (test code = WBC) 9.5 K/mm3 4.5-12.5 N RED BLOOD CELL (test code = RBC) 2.54 mill/mm3 3.7-5.2 L HEMOGLOBIN (test code = HGB) 7.6 gram/dL 11.5-15.5 L HEMATOCRIT (test code = HCT) 25.4 % 36.0-46.0 L MEAN CELL VOLUME (test code = MCV) 100.0 fL 80-98 H MEAN CELL HGB (test code = MCH) 29.9 picogram 27.0-33.0 N MEAN CELL HGB CONCETRATION (test code = MCHC) 29.9 gram/dL 33.0-36. 0 L RED CELL DISTRIBUTION WIDTH (test code = RDW) 17.0 % 11.6-16. 2 H RED CELL DISTRIBUTION WIDTH SD (test code = RDW-SD) 60.1 fL 37 .0-51.0 H PLATELET COUNT (test code = PLT) 278 K/mm3 150-450 N MEAN PLATELET VOLUME (test code = MPV) 10.1 fL 6.7-11.0 N NEUTROPHIL % (test code = NT%) 55.8 % 39.0-69.0 N IMMATURE GRANULOCYTE % (test code = IG%) 0.5 % 0.0-5.0 N LYMPHOCYTE % (test code = LY%) 32.8 % 25.0-55.0 N MONOCYTE % (test code = MO%) 7.8 % 0.0-10.0 N EOSINOPHIL % (test code = EO%) 2.5 % 0.0-5.0 N BASOPHIL % (test code = BA%) 0.6 % 0.0-1.0 N NUCLEATED RBC % (test code = NRBC%) 0.2 % 0-0 H NEUTROPHIL # (test code = NT#) 5.31 K/mm3 1.8-7.7 N IMMATURE GRANULOCYTE # (test code = IG#) 0.05 x10 3/uL 0-0.03 H LYMPHOCYTE # (test code = LY#) 3.13 K/mm3 1.0-5.0 N MONOCYTE # (test code = MO#) 0.74 K/mm3 0-0.8 N EOSINOPHIL # (test code = EO#) 0.24 K/mm3 0.0-0.5 N BASOPHIL # (test code = BA#) 0.06 K/mm3 0.0-0.2 N NUCLEATED RBC # (test code = NRBC#) 0.02 K/mm3 0.0-0.1 N MANUAL DIFF REQUIRED (test code = MDIFF) NO, ONLY SCAN NEEDED DIFFERENTIAL [id number] 10:47:00* Test Item Value Reference Range Interpretation Comments STAIN ACCEPTABILITY (test code = STN ACCEPTABLE) MORPHOLOGY COMMENT (test code = MOC) PLATELET ESTIMATE (test code = PLTEST) PLATELET MORPHOLOGY (test code = PLTMORPH) CBC W/AUTO [id number] 10:47:00* Test Item Value Reference Range Interpretation Comments WHITE BLOOD CELL (test code = WBC) 9.5 K/mm3 4.5-12.5 N RED BLOOD CELL (test code = RBC) 2.54 mill/mm3 3.7-5.2 L HEMOGLOBIN (test code = HGB) 7.6 gram/dL 11.5-15.5 L HEMATOCRIT (test code = HCT) 25.4 % 36.0-46.0 L MEAN CELL VOLUME (test code = MCV) 100.0 fL 80-98 H MEAN CELL HGB (test code = MCH) 29.9 picogram 27.0-33.0 N MEAN CELL HGB CONCETRATION (test code = MCHC) 29.9 gram/dL 33.0-36. 0 L RED CELL DISTRIBUTION WIDTH (test code = RDW) 17.0 % 11.6-16. 2 H RED CELL DISTRIBUTION WIDTH SD (test code = RDW-SD) 60.1 fL 37 .0-51.0 H PLATELET COUNT (test code = PLT) 278 K/mm3 150-450 N MEAN PLATELET VOLUME (test code = MPV) 10.1 fL 6.7-11.0 N NEUTROPHIL % (test code = NT%) 55.8 % 39.0-69.0 N IMMATURE GRANULOCYTE % (test code = IG%) 0.5 % 0.0-5.0 N LYMPHOCYTE % (test code = LY%) 32.8 % 25.0-55.0 N MONOCYTE % (test code = MO%) 7.8 % 0.0-10.0 N EOSINOPHIL % (test code = EO%) 2.5 % 0.0-5.0 N BASOPHIL % (test code = BA%) 0.6 % 0.0-1.0 N NUCLEATED RBC % (test code = NRBC%) 0.2 % 0-0 H NEUTROPHIL # (test code = NT#) 5.31 K/mm3 1.8-7.7 N IMMATURE GRANULOCYTE # (test code = IG#) 0.05 x10 3/uL 0-0.03 H LYMPHOCYTE # (test code = LY#) 3.13 K/mm3 1.0-5.0 N MONOCYTE # (test code = MO#) 0.74 K/mm3 0-0.8 N EOSINOPHIL # (test code = EO#) 0.24 K/mm3 0.0-0.5 N BASOPHIL # (test code = BA#) 0.06 K/mm3 0.0-0.2 N NUCLEATED RBC # (test code = NRBC#) 0.02 K/mm3 0.0-0.1 N MANUAL DIFF REQUIRED (test code = MDIFF) NO, ONLY SCAN NEEDED DIFFERENTIAL [id number] 10:47:00* Test Item Value Reference Range Interpretation Comments STAIN ACCEPTABILITY (test code = STN ACCEPTABLE) CABOT RINGS (test code = CAB) MORPHOLOGY COMMENT (test code = MOC) PLATELET ESTIMATE (test code = PLTEST) PLATELET MORPHOLOGY (test code = PLTMORPH) CHEMISTRY 8 [id number] 10:38:00* Test Item Value Reference Range Interpretation Comments ISTAT-SODIUM (test code = NAP) mmol/L 135-148 ISTAT-POTASSIUM (test code = KP) mmol/L 3.5-5.5 ISTAT-CHLORIDE (test code = CLP) mmol/L 101-109 ISTAT CARBON DIOXIDE (test code = ISTAT-CO2) mmol/L 21-32 N ISTAT CALCIUM IONIZED (test code = ISTAT-TIANNA) mg/dL 1.12-1.3 2 ISTAT-ANION GAP (test code = GAPP) MEQ/L 10-20 ISTAT-GLUCOSE (test code = GLUP) mg/dL 74-106 HH ISTAT-BUN (test code = BUNP) mg/dL 3-21 H BEDSIDE CREATININE (test code = CREATBED) mg/dL 0.7-1.3 HH GLOMERULAR FILTRATION RATE POC (test code = GFRBED) 6 >6 0 LL CHEMISTRY 8 [id number] 10:38:00* Test Item Value Reference Range Interpretation Comments ISTAT-SODIUM (test code = NAP) 137 mmol/L 135-148 N ISTAT-POTASSIUM (test code = KP) 4.7 mmol/L 3.5-5.5 N ISTAT-CHLORIDE (test code = CLP) 100 mmol/L 101-109 L ISTAT CARBON DIOXIDE (test code = ISTAT-CO2) 26.0 mmol/L 21-32 N ISTAT CALCIUM IONIZED (test code = ISTAT-TIANNA) 1.07 mg/dL 1.12-1.3 2 L ISTAT-ANION GAP (test code = GAPP) 17.0 MEQ/L 10-20 N ISTAT-GLUCOSE (test code = GLUP) 322 mg/dL 74-106 HH ISTAT-BUN (test code = BUNP) 40 mg/dL 3-21 H BEDSIDE CREATININE (test code = CREATBED) 8.7 mg/dL 0.7-1.3 HH GLOMERULAR FILTRATION RATE POC (test code = GFRBED) 6 >6 0 LL [id number] 10:37:00* Test Item Value Reference Range Interpretation Comments GLUBED (test code = GLUBED) 304 mg/dL 74-106 H Performed by certified facsimile machine operator at [facility] [id number] 12:07:00* Test Item Value Reference Range Interpretation Comments GLUBED (test code = GLUBED) 171 mg/dL 74-106 H Performed by certified facsimile machine operator at [facility] BASIC METABOLIC [id number] 06:08:00* Test Item Value Reference Range Interpretation Comments SODIUM (test code = NA) 139 mmol/L 136-145 N POTASSIUM (test code = K) 4.7 mmol/L 3.5-5.1 N CHLORIDE (test code = CL) 104.0 mmol/L 98-107 N CARBON DIOXIDE (test code = CO2) 27.0 mmol/L 21-32 N ANION GAP (test code = GAP) 12.7 10-20 N GLUCOSE (test code = GLU) 187 mg/dL 74-106 H BLOOD UREA NITROGEN (test code = BUN) 30 mg/dL 7-18 H RESULT VERIFIED BY REPEAT ANALYSIS GLOMERULAR FILTRATION RATE (test code = GFR) 7 mL/min >=60 Estimated GFR by using Modified MDRD formula.Chronic kidney disease is defined as either kidney damageor GFR <60 mL/min/1.73 m2 for >3 months. CREATININE (test code = CREAT) 7.60 mg/dL 0.55-1.02 H RESULT VERIFIED BY REPEAT ANALYSISNote change in reference range due to change in reagent. BUN/CREATININE RATIO (test code = BUN/CREA) 3.9 10-20 L CALCIUM (test code = CA) 8.4 mg/dL 8.5-10.1 L [id number] 06:08:00* Test Item Value Reference Range Interpretation Comments ALBUMIN (test code = ALB) 2.8 g/dL 3.4-5.0 L BASIC METABOLIC [id number] 05:44:00* Test Item Value Reference Range Interpretation Comments SODIUM (test code = NA) 139 mmol/L 136-145 N POTASSIUM (test code = K) 4.7 mmol/L 3.5-5.1 N CHLORIDE (test code = CL) 104.0 mmol/L 98-107 N CARBON DIOXIDE (test code = CO2) mmol/L 21-32 ANION GAP (test code = GAP) 10-20 GLUCOSE (test code = GLU) mg/dL 74-106 BLOOD UREA NITROGEN (test code = BUN) mg/dL 7-18 GLOMERULAR FILTRATION RATE (test code = GFR) mL/min >=60 CREATININE (test code = CREAT) mg/dL 0.55-1.02 BUN/CREATININE RATIO (test code = BUN/CREA) 10-20 CALCIUM (test code = CA) mg/dL 8.5-10.1 [id number] 05:44:00* Test Item Value Reference Range Interpretation Comments ALBUMIN (test code = ALB) g/dL 3.4-5.0 CBC W/AUTO [id number] 05:38:00* Test Item Value Reference Range Interpretation Comments WHITE BLOOD CELL (test code = WBC) 6.0 K/mm3 4.5-12.5 N RED BLOOD CELL (test code = RBC) 2.79 mill/mm3 3.7-5.2 L HEMOGLOBIN (test code = HGB) 8.3 gram/dL 11.5-15.5 L HEMATOCRIT (test code = HCT) 27.3 % 36.0-46.0 L MEAN CELL VOLUME (test code = MCV) 97.8 fL 80-98 N MEAN CELL HGB (test code = MCH) 29.7 picogram 27.0-33.0 N MEAN CELL HGB CONCETRATION (test code = MCHC) 30.4 gram/dL 33.0-36. 0 L RED CELL DISTRIBUTION WIDTH (test code = RDW) 15.2 % 11.6-16. 2 N RED CELL DISTRIBUTION WIDTH SD (test code = RDW-SD) 54.4 fL 37 .0-51.0 H PLATELET COUNT (test code = PLT) 230 K/mm3 150-450 N MEAN PLATELET VOLUME (test code = MPV) 10.3 fL 6.7-11.0 N NEUTROPHIL % (test code = NT%) 51.9 % 39.0-69.0 N IMMATURE GRANULOCYTE % (test code = IG%) 0.3 % 0.0-5.0 N LYMPHOCYTE % (test code = LY%) 34.3 % 25.0-55.0 N MONOCYTE % (test code = MO%) 8.2 % 0.0-10.0 N EOSINOPHIL % (test code = EO%) 4.5 % 0.0-5.0 N BASOPHIL % (test code = BA%) 0.8 % 0.0-1.0 N NUCLEATED RBC % (test code = NRBC%) 0.0 % 0-0 N NEUTROPHIL # (test code = NT#) 3.12 K/mm3 1.8-7.7 N IMMATURE GRANULOCYTE # (test code = IG#) 0.02 x10 3/uL 0-0.03 N LYMPHOCYTE # (test code = LY#) 2.06 K/mm3 1.0-5.0 N MONOCYTE # (test code = MO#) 0.49 K/mm3 0-0.8 N EOSINOPHIL # (test code = EO#) 0.27 K/mm3 0.0-0.5 N BASOPHIL # (test code = BA#) 0.05 K/mm3 0.0-0.2 N NUCLEATED RBC # (test code = NRBC#) 0.00 K/mm3 0.0-0.1 N MANUAL DIFF REQUIRED (test code = MDIFF) NO [id number] 05:33:00* Test Item Value Reference Range Interpretation Comments GLUBED (test code = GLUBED) 224 mg/dL 74-106 H Performed by certified facsimile machine operator at [facility] ACUTE HEPATITIS [id number] 05:15:00* Test Item Value Reference Range Interpretation Comments AB HEPATITIS A IGM (test code = HAVMAB) Negative Negative AG HEPAT B SURF (test code = HBSAG) Negative Negative HEPATITIS B CORE ANTIBODY,IGM (test code = HBCMAB) Negative Neg ative AB HEPATITIS C (test code = HCVAB) <0.1 0.0-0.9 INFCE Result Units: s/co ratio Negative: < 0.8 Indeterminate: 0.8 - 0.9 Positive: > 0.9 The CDC recommends that a positive HCV antibody result be followed up with a HCV Nucleic Acid Amplification test (902307).Performed At: [facility] [id number] Kyle L MD Ph:[phone] [id number] 20:44:00* Test Item Value Reference Range Interpretation Comments GLUBED (test code = GLUBED) 165 mg/dL 74-106 H Performed by certified facsimile machine operator at [facility] [id number] 19:23:00* Test Item Value Reference Range Interpretation Comments GLUBED (test code = GLUBED) 191 mg/dL 74-106 H Performed by certified facsimile machine operator at [facility] - US TRANSVAGINAL NON [id number] 16:42:00 Name: TENISHASIVAGISELA Bocanegra [facility] : 1975 Age/S: 42 / F [address] Unit #: [id number] Loc: Bill [place] [address] Phys: Shandra Hankins MD Acct: [id number] Dis Date: Status: ADM IN PHONE #: [phone] Exam Date: 07/10/2018 1551 FAX #: [phone] Reason: VAGINAL PAIN EXAMS: CPT CODE: [id number] [place] [address] EXAM: Pelvic and transvaginal ultrasound; INFORMATION: End-stage renal disease; vaginal pain and discharge; FINDINGS: The uterus measures 10.1 x 5.8 x 6.5 cm. There are multiple small echogenic foci consistent with calcifications but no distinct mass is seen. The endometrial stripe measures 8 mm in thickness; no fluid collection within the endometrial canal. The right ovary is of normal size and shape and with normal flow pattern on Doppler exam. Measures 4 x 3.6 x 3.1 cm. A 4 x 3 cm cyst is seen in the right ovary. The left ovary is not seen; no evidence of solid or cystic adnexal lesions. No free fluid within the cul-de-sac. IMPRESSION: 1. Slightly prominent uterus without mass lesions. 2. 4 cm right ovarian cyst. 3. Left ovary not seen but no evidence of solid or cystic adnexal lesion. at 1642 Reported and signed by: Severo Govea M.D. CC: Shandra Hankins MD Technologist: CORRINE PYLE Trnscb Date/Time: 0 07/10/2018 (1641) Alberto Orig Print D/T: S: 07/10/2018 (2565) Probe: [id number] PAGE 1 Signed Rep ort - US PELVIS [id number] 16:42:00 Name: GISELA SOL [facility] : 1975 Age/S: 42 / F [address] Unit #: [id number] Loc: [place] [address] Phys: Seven Hankins MD Acct: [id number] Di s Date: Status: ADM IN PHONE #: Exam Date: 07/10/2018 1558 FAX #: Reason: vaginal pain EXAMS: CPT CODE: [id number] US PELVIS COM PLETE [id number] EXAM: Pelvic and transvag inal ultrasound; INFORMATION: End-stage renal disease; vaginal paul n and discharge; FINDINGS: The uterus measures 10.1 x 5.8 x 6.5 cm. There are multiple small echogenic foci consistent with calcificat ions but no distinct mass is seen. The endometrial stripe measures 8 mm in thickness; no fluid collection within the endometrial canal. The right ovary is of normal size and shape and with normal flow pattern o n Doppler exam. Measures 4 x 3.6 x 3.1 cm. A 4 x 3 cm cyst is seen in the right ovary. The left ovary is not seen; no evidence of solid or cystic ad nexal lesions. No free fluid within the cul-de-sac. IMPRESSION: 1. Slightly prominent uterus without mass lesions. 2 . 4 cm right ovarian cyst. 3. Left ovary not seen but no evidence of cassy id or cystic adnexal lesion. at 1642 Reported and signed by: Severo Govea M.D. CC: Keyon Greenwood MD; Shandra Hankins MD Technolo gist: CORRINEYariel VALDEZ [facility] Trnscb Date/Time: 0 07/10/2018 (1641) Alberto Orig Print D/T: S: 07/10/2018 (1644) Probe: PAGE 1 Signed Rep ort [id number] 13:02:00* Test Item Value Reference Range Interpretation Comments GLUBED (test code = GLUBED) 151 mg/dL 74-106 H Performed by certified facsimile machine operator at [facility] B-TYPE NATRIURETIC [id number] 08:13:00* Test Item Value Reference Range Interpretation Comments B-TYPE NATRIURETIC PEPTIDE (test code = BNP) 382.20 pgram/mL 0-100 H BASIC METABOLIC [id number] 06:56:00* Test Item Value Reference Range Interpretation Comments SODIUM (test code = NA) 138 mmol/L 136-145 N POTASSIUM (test code = K) 5.3 mmol/L 3.5-5.1 H CHLORIDE (test code = CL) 105.0 mmol/L 98-107 N CARBON DIOXIDE (test code = CO2) 24.0 mmol/L 21-32 N ANION GAP (test code = GAP) 14.3 10-20 N GLUCOSE (test code = GLU) 207 mg/dL 74-106 H BLOOD UREA NITROGEN (test code = BUN) 60 mg/dL 7-18 H GLOMERULAR FILTRATION RATE (test code = GFR) 4 mL/min >=60 Estimated GFR by using Modified MDRD formula.Chronic kidney disease is defined as either kidney damageor GFR <60 mL/min/1.73 m2 for >3 months. CREATININE (test code = CREAT) 11.80 mg/dL 0.55-1.02 H Note change in reference range due to change in reagent. BUN/CREATININE RATIO (test code = BUN/CREA) 5.1 10-20 L CALCIUM (test code = CA) 7.9 mg/dL 8.5-10.1 L BASIC METABOLIC [id number] 06:53:00* Test Item Value Reference Range Interpretation Comments SODIUM (test code = NA) 138 mmol/L 136-145 N POTASSIUM (test code = K) 5.3 mmol/L 3.5-5.1 H CHLORIDE (test code = CL) 105.0 mmol/L 98-107 N CARBON DIOXIDE (test code = CO2) mmol/L 21-32 ANION GAP (test code = GAP) 10-20 GLUCOSE (test code = GLU) mg/dL 74-106 BLOOD UREA NITROGEN (test code = BUN) mg/dL 7-18 GLOMERULAR FILTRATION RATE (test code = GFR) mL/min >=60 CREATININE (test code = CREAT) mg/dL 0.55-1.02 BUN/CREATININE RATIO (test code = BUN/CREA) 10-20 CALCIUM (test code = CA) mg/dL 8.5-10.1 CBC W/O [id number] 06:48:00* Test Item Value Reference Range Interpretation Comments WHITE BLOOD CELL (test code = WBC) 6.7 K/mm3 4.5-12.5 N RED BLOOD CELL (test code = RBC) 2.46 mill/mm3 3.7-5.2 L HEMOGLOBIN (test code = HGB) 7.2 gram/dL 11.5-15.5 L HEMATOCRIT (test code = HCT) 24.7 % 36.0-46.0 L MEAN CELL VOLUME (test code = MCV) 100.4 fL 80-98 H MEAN CELL HGB (test code = MCH) 29.3 picogram 27.0-33.0 N MEAN CELL HGB CONCETRATION (test code = MCHC) 29.1 gram/dL 33.0-36. 0 L RED CELL DISTRIBUTION WIDTH (test code = RDW) 15.4 % 11.6-16. 2 N PLATELET COUNT (test code = PLT) 235 K/mm3 150-450 N MEAN PLATELET VOLUME (test code = MPV) 10.4 fL 6.7-11.0 N [id number] 06:20:00* Test Item Value Reference Range Interpretation Comments GLUBED (test code = GLUBED) 201 mg/dL 74-106 H Performed by certified facsimile machine operator at [facility] [id number] 21:18:00* Test Item Value Reference Range Interpretation Comments GLUBED (test code = GLUBED) 149 mg/dL 74-106 H Performed by certified facsimile machine operator at [facility] [id number] 17:38:00* Test Item Value Reference Range Interpretation Comments GLUBED (test code = GLUBED) 187 mg/dL 74-106 H Performed by certified facsimile machine operator at [facility] [id number] 13:19:00* Test Item Value Reference Range Interpretation Comments GLUBED (test code = GLUBED) 201 mg/dL 74-106 H Performed by certified facsimile machine operator at [facility] AG HEPAT B [id number] 12:26:00* Test Item Value Reference Range Interpretation Comments AG HEPAT B SURF (test code = HBSAG) Nonreactive Index Nonreactive [id number] 11:04:00* Test Item Value Reference Range Interpretation Comments GLUBED (test code = GLUBED) 206 mg/dL 74-106 H Performed by certified facsimile machine operator at [facility] PROCALCITONIN (PCT)2018-07-09 07:25:00* Test Item Value Reference Range Interpretation Comments PROCALCITONIN (PCT) (test code = PROCAL) 0.12 ng/ml Concentration Interpretation (ng/mL) <0.51 Sepsis is not likely. Local bacterial infection is possible. (LOW RISK for progression to Sepsis) 0.51 - 2.00 Sepsis is possible, but other conditions are known to elevate PCT as well. (MODERATE RISK for progression to Sepsis) > 2.00 Sepsis is likely, unless other causes are known. (HIGH RISK for progression to Severe Sepsis or Septic Shock) 10.00 High likelihood of Severe Sepsis or Septic or higher Shock. *Increased PCT levels may not always be related to systemic bacterial infection.*Low PCT levels do not automatically exclude the presence of bacterial infection.*All results should be interpreted taking into account the patients history. [id number] 07:17:00* Test Item Value Reference Range Interpretation Comments GLUBED (test code = GLUBED) 187 mg/dL 74-106 H Performed by certified facsimile machine operator at [facility] LACTIC [id number] 06:43:00* Test Item Value Reference Range Interpretation Comments LACTIC ACID (test code = LACT) 1.1 mmol/L 0.4-1.9 N B-TYPE NATRIURETIC [id number] 06:31:00* Test Item Value Reference Range Interpretation Comments B-TYPE NATRIURETIC PEPTIDE (test code = BNP) 588.08 pgram/mL 0-100 H - XR CHEST 1 [id number] 05:41:00 [facility]: B St: ADM Name: GISELA RAYMOND [facility] : [birth year] 72 Age/S: 42/F Amando Antunez Unit #: [id number] Loc: [place], [place] [address] Phys: Belén Vargas MD Acct: [id number] Dis Date: Status: ADM IN PHONE #: [phone] Exam Date: 07/09/2018 0525 FAX #: [phone] Reason: CHEST PAIN EXAMS: CPT CODE: [id number] XR CHEST 1 V 57084 HISTORY: Chest pain. Location: C3 COMPARISON:06/08/2018 FINDINGS: Left subclavian catheter is again noted unchanged. There is mild vascular prominence improved compared to prior study. No pneumothorax. No other a cute abnormalities. IMPRESSION: 1. Vascular an d perihilar prominence slightly improved. at 0511 Reported and nilsa d by: Antonia French MD CC: Technologist: Zelalem GARCIA(R) Trnscrd Date/Time/By: 07/09/2018 (0541) : By: [email or web address] Orig Print D/T: S: 07/09/2018 (0519) PAGE 1 Signed Report URINALYSIS COMPLETE 2018-07-09 05:37:00* Test Item Value Reference Range Interpretation Comments UA COLOR (test code = COLU) LIGHT YELLOW YELLOW UA APPEARANCE (test code = APPU) Cloudy CLEAR A UA GLUCOSE DIPSTICK (test code = DGLUU) >=500 mg/dL NEGATIVE A UA BILIRUBIN DIPSTICK (test code = BILU) NEGATIVE mg/dL NEGATIVE UA KETONE DIPSTICK (test code = KETU) Negative mg/dL NEGATIVE UA SPECIFIC GRAVITY (test code = SGU) 1.008 1.001-1.035 UA BLOOD DIPSTICK (test code = BING) 1+ (Small) NEGATIVE A UA PH DIPSTICK (test code = ROXI) 7.0 5.0-8.0 UA PROTEIN DIPSTICK (test code = PROU) >500 (3+) mg/dL NEGATIVE A UA UROBILINIOGEN DIPSTICK (test code = URO) NEGATIVE mg/dL NEGATIVE UA NITRITE DIPSTICK (test code = HORTENCIA) NEGATIVE NEGATIVE UA LEUKOCYTE ESTERASE W REFLEX (test code = LEUUR) 3+ NEG ATIVE A UA WBC (test code = WBCU) >50 #/HPF 0-5 A UA RBC (test code = RBCU) 11-20 #/HPF 0-5 A UA WBC CLUMPS (test code = WBCUCL) 7-10 /HPF NONE A UA EPITHELIAL CELLS (test code = EPIU) MANY per HPF FEW UA BACTERIA (test code = BACU) FEW #/HPF NONE A Urine Source? Clean CatchBASIC METABOLIC [id number] 05:34:00* Test Item Value Reference Range Interpretation Comments SODIUM (test code = NA) 136 mmol/L 136-145 N POTASSIUM (test code = K) 6.0 mmol/L 3.5-5.1 H Re sults called to by JOSÉ 07/09/18 0533Critical results verified and read back by Nurse? Y CHLORIDE (test code = CL) 101.0 mmol/L 98-107 N CARBON DIOXIDE (test code = CO2) 20.0 mmol/L 21-32 L ANION GAP (test code = GAP) 21.0 10-20 H GLUCOSE (test code = GLU) 231 mg/dL 74-106 H BLOOD UREA NITROGEN (test code = BUN) 94 mg/dL 7-18 H GLOMERULAR FILTRATION RATE (test code = GFR) 3 mL/min >=60 Estimated GFR by using Modified MDRD formula.Chronic kidney disease is defined as either kidney damageor GFR <60 mL/min/1.73 m2 for >3 months. CREATININE (test code = CREAT) 16.70 mg/dL 0.55-1.02 H Note change in reference range due to change in reagent. BUN/CREATININE RATIO (test code = BUN/CREA) 5.6 10-20 L CALCIUM (test code = CA) mg/dL 8.5-10.1 HCG SERUM [id number] 05:34:00* Test Item Value Reference Range Interpretation Comments HCG SERUM QUAL (test code = HCGQL) NEGATIVE NEGATIVE This HCGQL test is NOT applicable for MALE patients.Check with nurse about probable order error.If Tumor Marker Test needed, nurse should order test "HCGTU"(Test #550.55577) [id number] 05:34:00* Test Item Value Reference Range Interpretation Comments TROPONIN-I (test code = TROPI) <0.015 ng/mL 0-0.045 N BASIC METABOLIC [id number] 05:34:00* Test Item Value Reference Range Interpretation Comments SODIUM (test code = NA) 136 mmol/L 136-145 N POTASSIUM (test code = K) 6.0 mmol/L 3.5-5.1 H Re sults called to by JOSÉ 07/09/18 0533Critical results verified and read back by Nurse? Y CHLORIDE (test code = CL) 101.0 mmol/L 98-107 N CARBON DIOXIDE (test code = CO2) 20.0 mmol/L 21-32 L ANION GAP (test code = GAP) 21.0 10-20 H GLUCOSE (test code = GLU) 231 mg/dL 74-106 H BLOOD UREA NITROGEN (test code = BUN) 94 mg/dL 7-18 H GLOMERULAR FILTRATION RATE (test code = GFR) 3 mL/min >=60 Estimated GFR by using Modified MDRD formula.Chronic kidney disease is defined as either kidney damageor GFR <60 mL/min/1.73 m2 for >3 months. CREATININE (test code = CREAT) 16.70 mg/dL 0.55-1.02 H Note change in reference range due to change in reagent. BUN/CREATININE RATIO (test code = BUN/CREA) 5.6 10-20 L CALCIUM (test code = CA) 7.5 mg/dL 8.5-10.1 L HCG SERUM [id number] 05:34:00* Test Item Value Reference Range Interpretation Comments HCG SERUM QUAL (test code = HCGQL) NEGATIVE NEGATIVE This HCGQL test is NOT applicable for MALE patients.Check with nurse about probable order error.If Tumor Marker Test needed, nurse should order test "HCGTU"(Test #550.12578) [id number] 05:34:00* Test Item Value Reference Range Interpretation Comments TROPONIN-I (test code = TROPI) <0.015 ng/mL 0-0.045 N BASIC METABOLIC [id number] 05:30:00* Test Item Value Reference Range Interpretation Comments SODIUM (test code = NA) mmol/L 136-145 POTASSIUM (test code = K) mmol/L 3.5-5.1 CHLORIDE (test code = CL) mmol/L 98-107 CARBON DIOXIDE (test code = CO2) mmol/L 21-32 ANION GAP (test code = GAP) 10-20 GLUCOSE (test code = GLU) mg/dL 74-106 BLOOD UREA NITROGEN (test code = BUN) mg/dL 7-18 GLOMERULAR FILTRATION RATE (test code = GFR) mL/min >=60 CREATININE (test code = CREAT) mg/dL 0.55-1.02 BUN/CREATININE RATIO (test code = BUN/CREA) 10-20 CALCIUM (test code = CA) mg/dL 8.5-10.1 HCG SERUM [id number] 05:30:00* Test Item Value Reference Range Interpretation Comments HCG SERUM QUAL (test code = HCGQL) NEGATIVE NEGATIVE This HCGQL test is NOT applicable for MALE patients.Check with nurse about probable order error.If Tumor Marker Test needed, nurse should order test "HCGTU"(Test #550.68157) [id number] 05:30:00* Test Item Value Reference Range Interpretation Comments TROPONIN-I (test code = TROPI) ng/mL 0-0.045 TROPONIN I [id number] 05:21:00* Test Item Value Reference Range Interpretation Comments TROPONIN I RAPID (test code = TROPIRAP) 0.01 ng/mL <0.08 Please Note New Reference Range 0.00-0.079 ng/mL - Negative>or= 0.08 ng/mL - Positive The use of serial sampling and testing protocol is arecommended practice.An elevated troponin level alone is often not sufficient fordiagnosis of myocardial infarction. Troponin results obtained by different assays may vary.Evaluation of the extent of myocardial damage based onincrease of troponin would be valid only if similarmethodology is used. CBC W/O [id number] 05:18:00* Test Item Value Reference Range Interpretation Comments WHITE BLOOD CELL (test code = WBC) 8.4 K/mm3 4.5-12.5 N RED BLOOD CELL (test code = RBC) 3.09 mill/mm3 3.7-5.2 L HEMOGLOBIN (test code = HGB) 9.0 gram/dL 11.5-15.5 L HEMATOCRIT (test code = HCT) 30.5 % 36.0-46.0 L MEAN CELL VOLUME (test code = MCV) 98.7 fL 80-98 H MEAN CELL HGB (test code = MCH) 29.1 picogram 27.0-33.0 N MEAN CELL HGB CONCETRATION (test code = MCHC) 29.5 gram/dL 33.0-36. 0 L RED CELL DISTRIBUTION WIDTH (test code = RDW) 15.1 % 11.6-16. 2 N PLATELET COUNT (test code = PLT) 269 K/mm3 150-450 N MEAN PLATELET VOLUME (test code = MPV) 10.0 fL 6.7-11.0 N CHEMISTRY 8 [id number] 05:07:00* Test Item Value Reference Range Interpretation Comments ISTAT-SODIUM (test code = NAP) mmol/L 135-148 ISTAT-POTASSIUM (test code = KP) mmol/L 3.5-5.5 ISTAT-CHLORIDE (test code = CLP) mmol/L 101-109 ISTAT CARBON DIOXIDE (test code = ISTAT-CO2) mmol/L 21-32 L ISTAT CALCIUM IONIZED (test code = ISTAT-TIANNA) mg/dL 1.12-1.3 2 ISTAT-ANION GAP (test code = GAPP) MEQ/L 10-20 ISTAT-GLUCOSE (test code = GLUP) mg/dL 74-106 H ISTAT-BUN (test code = BUNP) mg/dL 3-21 H BEDSIDE CREATININE (test code = CREATBED) mg/dL 0.7-1.3 HH GLOMERULAR FILTRATION RATE POC (test code = GFRBED) 5 >6 0 LL CHEMISTRY 8 [id number] 05:07:00* Test Item Value Reference Range Interpretation Comments ISTAT-SODIUM (test code = NAP) 137 mmol/L 135-148 N ISTAT-POTASSIUM (test code = KP) 6.2 mmol/L 3.5-5.5 HH ISTAT-CHLORIDE (test code = CLP) 103 mmol/L 101-109 N ISTAT CARBON DIOXIDE (test code = ISTAT-CO2) 19.0 mmol/L 21-32 L ISTAT CALCIUM IONIZED (test code = ISTAT-TIANNA) 0.86 mg/dL 1.12-1.3 2 L ISTAT-ANION GAP (test code = GAPP) 21.0 MEQ/L 10-20 H ISTAT-GLUCOSE (test code = GLUP) 223 mg/dL 74-106 H ISTAT-BUN (test code = BUNP) 95 mg/dL 3-21 H BEDSIDE CREATININE (test code = CREATBED) > 10.0 mg/dL 0.7-1.3 HH GLOMERULAR FILTRATION RATE POC (test code = GFRBED) 5 >6 0 LL [id number] 07:20:00* Test Item Value Reference Range Interpretation Comments GLUBED (test code = GLUBED) 138 mg/dL 74-106 H Performed by certified facsimile machine operator at [facility] [id number] 13:53:00* Test Item Value Reference Range Interpretation Comments GLUBED (test code = GLUBED) 216 mg/dL 74-106 H Performed by certified facsimile machine operator at [facility] [id number] 10:08:00* Test Item Value Reference Range Interpretation Comments GLUBED (test code = GLUBED) 239 mg/dL 74-106 H Performed by certified facsimile machine operator at [facility] [id number] 10:08:00* Test Item Value Reference Range Interpretation Comments GLUBED (test code = GLUBED) 139 mg/dL 74-106 H Performed by certified facsimile machine operator at [facility] BASIC METABOLIC [id number] 07:12:00* Test Item Value Reference Range Interpretation Comments SODIUM (test code = NA) 141 mmol/L 136-145 N POTASSIUM (test code = K) 4.3 mmol/L 3.5-5.1 N CHLORIDE (test code = CL) 106.0 mmol/L 98-107 N CARBON DIOXIDE (test code = CO2) 25.0 mmol/L 21-32 N ANION GAP (test code = GAP) 14.3 10-20 N GLUCOSE (test code = GLU) 129 mg/dL 74-106 H BLOOD UREA NITROGEN (test code = BUN) 54 mg/dL 7-18 H GLOMERULAR FILTRATION RATE (test code = GFR) 6 mL/min >=60 Estimated GFR by using Modified MDRD formula.Chronic kidney disease is defined as either kidney damageor GFR <60 mL/min/1.73 m2 for >3 months. CREATININE (test code = CREAT) 8.70 mg/dL 0.55-1.02 H Note change in reference range due to change in reagent. BUN/CREATININE RATIO (test code = BUN/CREA) 6.2 10-20 L CALCIUM (test code = CA) 7.3 mg/dL 8.5-10.1 L CBC W/O [id number] 06:59:00* Test Item Value Reference Range Interpretation Comments WHITE BLOOD CELL (test code = WBC) 7.5 K/mm3 4.5-12.5 N RED BLOOD CELL (test code = RBC) 2.30 mill/mm3 3.7-5.2 L HEMOGLOBIN (test code = HGB) 7.0 gram/dL 11.5-15.5 L HEMATOCRIT (test code = HCT) 22.8 % 36.0-46.0 L MEAN CELL VOLUME (test code = MCV) 99.1 fL 80-98 H MEAN CELL HGB (test code = MCH) 30.4 picogram 27.0-33.0 N MEAN CELL HGB CONCETRATION (test code = MCHC) 30.7 gram/dL 33.0-36. 0 L RED CELL DISTRIBUTION WIDTH (test code = RDW) 14.8 % 11.6-16. 2 N PLATELET COUNT (test code = PLT) 188 K/mm3 150-450 N MEAN PLATELET VOLUME (test code = MPV) 10.2 fL 6.7-11.0 N BASIC METABOLIC [id number] 06:56:00* Test Item Value Reference Range Interpretation Comments SODIUM (test code = NA) 141 mmol/L 136-145 N POTASSIUM (test code = K) 4.3 mmol/L 3.5-5.1 N CHLORIDE (test code = CL) 106.0 mmol/L 98-107 N CARBON DIOXIDE (test code = CO2) mmol/L 21-32 ANION GAP (test code = GAP) 10-20 GLUCOSE (test code = GLU) mg/dL 74-106 BLOOD UREA NITROGEN (test code = BUN) mg/dL 7-18 GLOMERULAR FILTRATION RATE (test code = GFR) mL/min >=60 CREATININE (test code = CREAT) mg/dL 0.55-1.02 BUN/CREATININE RATIO (test code = BUN/CREA) 10-20 CALCIUM (test code = CA) mg/dL 8.5-10.1 [id number] 01:58:00* Test Item Value Reference Range Interpretation Comments GLUBED (test code = GLUBED) 194 mg/dL 74-106 H Performed by certified facsimile machine operator at [facility] [id number] 21:30:00* Test Item Value Reference Range Interpretation Comments GLUBED (test code = GLUBED) 140 mg/dL 74-106 H Performed by certified facsimile machine operator at [facility] [id number] 18:01:00* Test Item Value Reference Range Interpretation Comments GLUBED (test code = GLUBED) 138 mg/dL 74-106 H Performed by certified facsimile machine operator at [facility] [id number] 15:42:00* Test Item Value Reference Range Interpretation Comments GLUBED (test code = GLUBED) 106 mg/dL 74-106 N Performed by certified facsimile machine operator at [facility] [id number] 09:17:00* Test Item Value Reference Range Interpretation Comments GLUBED (test code = GLUBED) 165 mg/dL 74-106 H Performed by certified facsimile machine operator at [facility] CBC W/AUTO [id number] 06:54:00* Test Item Value Reference Range Interpretation Comments WHITE BLOOD CELL (test code = WBC) 6.9 K/mm3 4.5-12.5 N RED BLOOD CELL (test code = RBC) 2.42 mill/mm3 3.7-5.2 L HEMOGLOBIN (test code = HGB) 7.2 gram/dL 11.5-15.5 L HEMATOCRIT (test code = HCT) 24.2 % 36.0-46.0 L MEAN CELL VOLUME (test code = MCV) 100.0 fL 80-98 H MEAN CELL HGB (test code = MCH) 29.8 picogram 27.0-33.0 N MEAN CELL HGB CONCETRATION (test code = MCHC) 29.8 gram/dL 33.0-36. 0 L RED CELL DISTRIBUTION WIDTH (test code = RDW) 15.0 % 11.6-16. 2 N RED CELL DISTRIBUTION WIDTH SD (test code = RDW-SD) 55.6 fL 37 .0-51.0 H PLATELET COUNT (test code = PLT) 198 K/mm3 150-450 N MEAN PLATELET VOLUME (test code = MPV) 10.4 fL 6.7-11.0 N NEUTROPHIL % (test code = NT%) 55.1 % 39.0-69.0 N IMMATURE GRANULOCYTE % (test code = IG%) 0.4 % 0.0-5.0 N LYMPHOCYTE % (test code = LY%) 27.6 % 25.0-55.0 N MONOCYTE % (test code = MO%) 8.2 % 0.0-10.0 N EOSINOPHIL % (test code = EO%) 8.0 % 0.0-5.0 H BASOPHIL % (test code = BA%) 0.7 % 0.0-1.0 N NUCLEATED RBC % (test code = NRBC%) 0.0 % 0-0 N NEUTROPHIL # (test code = NT#) 3.77 K/mm3 1.8-7.7 N IMMATURE GRANULOCYTE # (test code = IG#) 0.03 x10 3/uL 0-0.03 N LYMPHOCYTE # (test code = LY#) 1.89 K/mm3 1.0-5.0 N MONOCYTE # (test code = MO#) 0.56 K/mm3 0-0.8 N EOSINOPHIL # (test code = EO#) 0.55 K/mm3 0.0-0.5 H BASOPHIL # (test code = BA#) 0.05 K/mm3 0.0-0.2 N NUCLEATED RBC # (test code = NRBC#) 0.00 K/mm3 0.0-0.1 N MANUAL DIFF REQUIRED (test code = MDIFF) NO, ONLY SCAN NEEDED DIFFERENTIAL [id number] 06:54:00* Test Item Value Reference Range Interpretation Comments STAIN ACCEPTABILITY (test code = STN ACCEPTABLE) STAIN ACCEPTABLE PLATELET ESTIMATE (test code = PLTEST) ADEQUATE PLATELET MORPHOLOGY (test code = PLTMORPH) SIZE VARIABLE COMPREHENSIVE METABOLIC [id number] 06:47:00* Test Item Value Reference Range Interpretation Comments SODIUM (test code = NA) 142 mmol/L 136-145 N POTASSIUM (test code = K) 4.5 mmol/L 3.5-5.1 N CHLORIDE (test code = CL) 107.0 mmol/L 98-107 N CARBON DIOXIDE (test code = CO2) 25.0 mmol/L 21-32 N ANION GAP (test code = GAP) 14.5 10-20 N GLUCOSE (test code = GLU) 192 mg/dL 74-106 H BLOOD UREA NITROGEN (test code = BUN) 50 mg/dL 7-18 H RESULT VERIFIED BY REPEAT ANALYSIS GLOMERULAR FILTRATION RATE (test code = GFR) 7 mL/min >=60 Estimated GFR by using Modified MDRD formula.Chronic kidney disease is defined as either kidney damageor GFR <60 mL/min/1.73 m2 for >3 months. CREATININE (test code = CREAT) 7.60 mg/dL 0.55-1.02 H RESULT VERIFIED BY REPEAT ANALYSISNote change in reference range due to change in reagent. BUN/CREATININE RATIO (test code = BUN/CREA) 6.6 10-20 L TOTAL PROTEIN (test code = PROT) 7.3 gram/dL 6.4-8.2 N ALBUMIN (test code = ALB) 2.5 g/dL 3.4-5.0 L GLOBULIN (test code = GLOB) 4.8 gram/dL 2.7-4.2 H ALBUMIN/GLOBULIN RATIO (test code = A/G) 0.5 0.75-1.50 L CALCIUM (test code = CA) 7.9 mg/dL 8.5-10.1 L BILIRUBIN TOTAL (test code = BILT) 0.30 mg/dL 0.0-1.0 N SGOT/AST (test code = AST) 8 IUnit/L 15-37 L SGPT/ALT (test code = ALT) 10 IUnit/L 12-78 L ALKALINE PHOSPHATASE TOTAL (test code = ALKP) 89 IUnit/L 45-117 N Note change in reference range due to change in reagent. [id number] 06:47:00* Test Item Value Reference Range Interpretation Comments PHOSPHORUS (test code = PHOS) 6.6 mg/dL 2.5-4.9 H [id number] 06:47:00* Test Item Value Reference Range Interpretation Comments MAGNESIUM (test code = MAG) 1.8 mg/dL 1.8-2.4 N CBC W/AUTO [id number] 06:29:00* Test Item Value Reference Range Interpretation Comments WHITE BLOOD CELL (test code = WBC) 6.9 K/mm3 4.5-12.5 N RED BLOOD CELL (test code = RBC) 2.42 mill/mm3 3.7-5.2 L HEMOGLOBIN (test code = HGB) 7.2 gram/dL 11.5-15.5 L HEMATOCRIT (test code = HCT) 24.2 % 36.0-46.0 L MEAN CELL VOLUME (test code = MCV) 100.0 fL 80-98 H MEAN CELL HGB (test code = MCH) 29.8 picogram 27.0-33.0 N MEAN CELL HGB CONCETRATION (test code = MCHC) 29.8 gram/dL 33.0-36. 0 L RED CELL DISTRIBUTION WIDTH (test code = RDW) 15.0 % 11.6-16. 2 N RED CELL DISTRIBUTION WIDTH SD (test code = RDW-SD) 55.6 fL 37 .0-51.0 H PLATELET COUNT (test code = PLT) 198 K/mm3 150-450 N MEAN PLATELET VOLUME (test code = MPV) 10.4 fL 6.7-11.0 N NEUTROPHIL % (test code = NT%) 55.1 % 39.0-69.0 N IMMATURE GRANULOCYTE % (test code = IG%) 0.4 % 0.0-5.0 N LYMPHOCYTE % (test code = LY%) 27.6 % 25.0-55.0 N MONOCYTE % (test code = MO%) 8.2 % 0.0-10.0 N EOSINOPHIL % (test code = EO%) 8.0 % 0.0-5.0 H BASOPHIL % (test code = BA%) 0.7 % 0.0-1.0 N NUCLEATED RBC % (test code = NRBC%) 0.0 % 0-0 N NEUTROPHIL # (test code = NT#) 3.77 K/mm3 1.8-7.7 N IMMATURE GRANULOCYTE # (test code = IG#) 0.03 x10 3/uL 0-0.03 N LYMPHOCYTE # (test code = LY#) 1.89 K/mm3 1.0-5.0 N MONOCYTE # (test code = MO#) 0.56 K/mm3 0-0.8 N EOSINOPHIL # (test code = EO#) 0.55 K/mm3 0.0-0.5 H BASOPHIL # (test code = BA#) 0.05 K/mm3 0.0-0.2 N NUCLEATED RBC # (test code = NRBC#) 0.00 K/mm3 0.0-0.1 N MANUAL DIFF REQUIRED (test code = MDIFF) NO, ONLY SCAN NEEDED DIFFERENTIAL [id number] 06:29:00* Test Item Value Reference Range Interpretation Comments STAIN ACCEPTABILITY (test code = STN ACCEPTABLE) CABOT RINGS (test code = CAB) MORPHOLOGY COMMENT (test code = MOC) PLATELET ESTIMATE (test code = PLTEST) PLATELET MORPHOLOGY (test code = PLTMORPH) CBC W/AUTO [id number] 06:29:00* Test Item Value Reference Range Interpretation Comments WHITE BLOOD CELL (test code = WBC) 6.9 K/mm3 4.5-12.5 N RED BLOOD CELL (test code = RBC) 2.42 mill/mm3 3.7-5.2 L HEMOGLOBIN (test code = HGB) 7.2 gram/dL 11.5-15.5 L HEMATOCRIT (test code = HCT) 24.2 % 36.0-46.0 L MEAN CELL VOLUME (test code = MCV) 100.0 fL 80-98 H MEAN CELL HGB (test code = MCH) 29.8 picogram 27.0-33.0 N MEAN CELL HGB CONCETRATION (test code = MCHC) 29.8 gram/dL 33.0-36. 0 L RED CELL DISTRIBUTION WIDTH (test code = RDW) 15.0 % 11.6-16. 2 N RED CELL DISTRIBUTION WIDTH SD (test code = RDW-SD) 55.6 fL 37 .0-51.0 H PLATELET COUNT (test code = PLT) 198 K/mm3 150-450 N MEAN PLATELET VOLUME (test code = MPV) 10.4 fL 6.7-11.0 N NEUTROPHIL % (test code = NT%) 55.1 % 39.0-69.0 N IMMATURE GRANULOCYTE % (test code = IG%) 0.4 % 0.0-5.0 N LYMPHOCYTE % (test code = LY%) 27.6 % 25.0-55.0 N MONOCYTE % (test code = MO%) 8.2 % 0.0-10.0 N EOSINOPHIL % (test code = EO%) 8.0 % 0.0-5.0 H BASOPHIL % (test code = BA%) 0.7 % 0.0-1.0 N NUCLEATED RBC % (test code = NRBC%) 0.0 % 0-0 N NEUTROPHIL # (test code = NT#) 3.77 K/mm3 1.8-7.7 N IMMATURE GRANULOCYTE # (test code = IG#) 0.03 x10 3/uL 0-0.03 N LYMPHOCYTE # (test code = LY#) 1.89 K/mm3 1.0-5.0 N MONOCYTE # (test code = MO#) 0.56 K/mm3 0-0.8 N EOSINOPHIL # (test code = EO#) 0.55 K/mm3 0.0-0.5 H BASOPHIL # (test code = BA#) 0.05 K/mm3 0.0-0.2 N NUCLEATED RBC # (test code = NRBC#) 0.00 K/mm3 0.0-0.1 N MANUAL DIFF REQUIRED (test code = MDIFF) NO, ONLY SCAN NEEDED DIFFERENTIAL [id number] 06:29:00* Test Item Value Reference Range Interpretation Comments STAIN ACCEPTABILITY (test code = STN ACCEPTABLE) MORPHOLOGY COMMENT (test code = MOC) PLATELET ESTIMATE (test code = PLTEST) PLATELET MORPHOLOGY (test code = PLTMORPH) CBC W/AUTO [id number] 06:29:00* Test Item Value Reference Range Interpretation Comments WHITE BLOOD CELL (test code = WBC) 6.9 K/mm3 4.5-12.5 N RED BLOOD CELL (test code = RBC) 2.42 mill/mm3 3.7-5.2 L HEMOGLOBIN (test code = HGB) 7.2 gram/dL 11.5-15.5 L HEMATOCRIT (test code = HCT) 24.2 % 36.0-46.0 L MEAN CELL VOLUME (test code = MCV) 100.0 fL 80-98 H MEAN CELL HGB (test code = MCH) 29.8 picogram 27.0-33.0 N MEAN CELL HGB CONCETRATION (test code = MCHC) 29.8 gram/dL 33.0-36. 0 L RED CELL DISTRIBUTION WIDTH (test code = RDW) 15.0 % 11.6-16. 2 N RED CELL DISTRIBUTION WIDTH SD (test code = RDW-SD) 55.6 fL 37 .0-51.0 H PLATELET COUNT (test code = PLT) 198 K/mm3 150-450 N MEAN PLATELET VOLUME (test code = MPV) 10.4 fL 6.7-11.0 N NEUTROPHIL % (test code = NT%) 55.1 % 39.0-69.0 N IMMATURE GRANULOCYTE % (test code = IG%) 0.4 % 0.0-5.0 N LYMPHOCYTE % (test code = LY%) 27.6 % 25.0-55.0 N MONOCYTE % (test code = MO%) 8.2 % 0.0-10.0 N EOSINOPHIL % (test code = EO%) 8.0 % 0.0-5.0 H BASOPHIL % (test code = BA%) 0.7 % 0.0-1.0 N NUCLEATED RBC % (test code = NRBC%) 0.0 % 0-0 N NEUTROPHIL # (test code = NT#) 3.77 K/mm3 1.8-7.7 N IMMATURE GRANULOCYTE # (test code = IG#) 0.03 x10 3/uL 0-0.03 N LYMPHOCYTE # (test code = LY#) 1.89 K/mm3 1.0-5.0 N MONOCYTE # (test code = MO#) 0.56 K/mm3 0-0.8 N EOSINOPHIL # (test code = EO#) 0.55 K/mm3 0.0-0.5 H BASOPHIL # (test code = BA#) 0.05 K/mm3 0.0-0.2 N NUCLEATED RBC # (test code = NRBC#) 0.00 K/mm3 0.0-0.1 N MANUAL DIFF REQUIRED (test code = MDIFF) NO, ONLY SCAN NEEDED DIFFERENTIAL [id number] 06:29:00* Test Item Value Reference Range Interpretation Comments STAIN ACCEPTABILITY (test code = STN ACCEPTABLE) MORPHOLOGY COMMENT (test code = MOC) PLATELET ESTIMATE (test code = PLTEST) PLATELET MORPHOLOGY (test code = PLTMORPH) CBC W/AUTO [id number] 06:28:00* Test Item Value Reference Range Interpretation Comments WHITE BLOOD CELL (test code = WBC) 6.9 K/mm3 4.5-12.5 N RED BLOOD CELL (test code = RBC) 2.42 mill/mm3 3.7-5.2 L HEMOGLOBIN (test code = HGB) 7.2 gram/dL 11.5-15.5 L HEMATOCRIT (test code = HCT) 24.2 % 36.0-46.0 L MEAN CELL VOLUME (test code = MCV) 100.0 fL 80-98 H MEAN CELL HGB (test code = MCH) 29.8 picogram 27.0-33.0 N MEAN CELL HGB CONCETRATION (test code = MCHC) 29.8 gram/dL 33.0-36. 0 L RED CELL DISTRIBUTION WIDTH (test code = RDW) 15.0 % 11.6-16. 2 N RED CELL DISTRIBUTION WIDTH SD (test code = RDW-SD) 55.6 fL 37 .0-51.0 H PLATELET COUNT (test code = PLT) 198 K/mm3 150-450 N MEAN PLATELET VOLUME (test code = MPV) 10.4 fL 6.7-11.0 N NEUTROPHIL % (test code = NT%) 55.1 % 39.0-69.0 N IMMATURE GRANULOCYTE % (test code = IG%) 0.4 % 0.0-5.0 N LYMPHOCYTE % (test code = LY%) 27.6 % 25.0-55.0 N MONOCYTE % (test code = MO%) 8.2 % 0.0-10.0 N EOSINOPHIL % (test code = EO%) 8.0 % 0.0-5.0 H BASOPHIL % (test code = BA%) 0.7 % 0.0-1.0 N NUCLEATED RBC % (test code = NRBC%) 0.0 % 0-0 N NEUTROPHIL # (test code = NT#) 3.77 K/mm3 1.8-7.7 N IMMATURE GRANULOCYTE # (test code = IG#) 0.03 x10 3/uL 0-0.03 N LYMPHOCYTE # (test code = LY#) 1.89 K/mm3 1.0-5.0 N MONOCYTE # (test code = MO#) 0.56 K/mm3 0-0.8 N EOSINOPHIL # (test code = EO#) 0.55 K/mm3 0.0-0.5 H BASOPHIL # (test code = BA#) 0.05 K/mm3 0.0-0.2 N NUCLEATED RBC # (test code = NRBC#) 0.00 K/mm3 0.0-0.1 N MANUAL DIFF REQUIRED (test code = MDIFF) NO, ONLY SCAN NEEDED DIFFERENTIAL [id number] 06:28:00* Test Item Value Reference Range Interpretation Comments STAIN ACCEPTABILITY (test code = STN ACCEPTABLE) CABOT RINGS (test code = CAB) MORPHOLOGY COMMENT (test code = MOC) PLATELET ESTIMATE (test code = PLTEST) PLATELET MORPHOLOGY (test code = PLTMORPH) [id number] 05:56:00* Test Item Value Reference Range Interpretation Comments GLUBED (test code = GLUBED) 195 mg/dL 74-106 H Performed by certified facsimile machine operator at [facility] [id number] 02:08:00* Test Item Value Reference Range Interpretation Comments GLUBED (test code = GLUBED) 161 mg/dL 74-106 H Performed by certified facsimile machine operator at [facility] [id number] 21:15:00* Test Item Value Reference Range Interpretation Comments GLUBED (test code = GLUBED) 185 mg/dL 74-106 H Performed by certified facsimile machine operator at [facility] [id number] 17:53:00* Test Item Value Reference Range Interpretation Comments GLUBED (test code = GLUBED) 138 mg/dL 74-106 H Performed by certified facsimile machine operator at [facility] [id number] 14:48:00* Test Item Value Reference Range Interpretation Comments GLUBED (test code = GLUBED) 162 mg/dL 74-106 H Performed by certified facsimile machine operator at [facility] PARATHYROID HORMONE [id number] 12:14:00* Test Item Value Reference Range Interpretation Comments PARATHYROID HORMONE INTACT (test code = PARAI) 922.40 pgram/mL 8.4- 88 H BASIC METABOLIC [id number] 12:12:00* Test Item Value Reference Range Interpretation Comments SODIUM (test code = NA) 140 mmol/L 136-145 N POTASSIUM (test code = K) 6.1 mmol/L 3.5-5.1 H Re sults called to [id number] by JOSÉ 06/09/18 1212Critical results verified and read back by Nurse? Y CHLORIDE (test code = CL) 111.0 mmol/L 98-107 H CARBON DIOXIDE (test code = CO2) 16.0 mmol/L 21-32 L ANION GAP (test code = GAP) 19.1 10-20 N GLUCOSE (test code = GLU) 116 mg/dL 74-106 H BLOOD UREA NITROGEN (test code = BUN) 89 mg/dL 7-18 H GLOMERULAR FILTRATION RATE (test code = GFR) 4 mL/min >=60 Estimated GFR by using Modified MDRD formula.Chronic kidney disease is defined as either kidney damageor GFR <60 mL/min/1.73 m2 for >3 months. CREATININE (test code = CREAT) 11.80 mg/dL 0.55-1.02 H Note change in reference range due to change in reagent. BUN/CREATININE RATIO (test code = BUN/CREA) 7.5 10-20 L CALCIUM (test code = CA) 7.1 mg/dL 8.5-10.1 L [id number] 12:09:00* Test Item Value Reference Range Interpretation Comments PHOSPHORUS (test code = PHOS) 8.0 mg/dL 2.5-4.9 H [id number] 11:35:00* Test Item Value Reference Range Interpretation Comments GLUBED (test code = GLUBED) 110 mg/dL 74-106 H Performed by certified facsimile machine operator at [facility] CBC W/AUTO [id number] 11:31:00* Test Item Value Reference Range Interpretation Comments WHITE BLOOD CELL (test code = WBC) 10.0 K/mm3 4.5-12.5 N RED BLOOD CELL (test code = RBC) 2.62 mill/mm3 3.7-5.2 L HEMOGLOBIN (test code = HGB) 7.9 gram/dL 11.5-15.5 L HEMATOCRIT (test code = HCT) 26.1 % 36.0-46.0 L MEAN CELL VOLUME (test code = MCV) 99.6 fL 80-98 H MEAN CELL HGB (test code = MCH) 30.2 picogram 27.0-33.0 N MEAN CELL HGB CONCETRATION (test code = MCHC) 30.3 gram/dL 33.0-36. 0 L RED CELL DISTRIBUTION WIDTH (test code = RDW) 15.0 % 11.6-16. 2 N RED CELL DISTRIBUTION WIDTH SD (test code = RDW-SD) 55.0 fL 37 .0-51.0 H PLATELET COUNT (test code = PLT) 219 K/mm3 150-450 N MEAN PLATELET VOLUME (test code = MPV) 9.5 fL 6.7-11.0 N NEUTROPHIL % (test code = NT%) 67.5 % 39.0-69.0 N IMMATURE GRANULOCYTE % (test code = IG%) 0.4 % 0.0-5.0 N LYMPHOCYTE % (test code = LY%) 20.0 % 25.0-55.0 L MONOCYTE % (test code = MO%) 5.9 % 0.0-10.0 N EOSINOPHIL % (test code = EO%) 5.6 % 0.0-5.0 H BASOPHIL % (test code = BA%) 0.6 % 0.0-1.0 N NUCLEATED RBC % (test code = NRBC%) 0.0 % 0-0 N NEUTROPHIL # (test code = NT#) 6.75 K/mm3 1.8-7.7 N IMMATURE GRANULOCYTE # (test code = IG#) 0.04 x10 3/uL 0-0.03 H LYMPHOCYTE # (test code = LY#) 2.00 K/mm3 1.0-5.0 N MONOCYTE # (test code = MO#) 0.59 K/mm3 0-0.8 N EOSINOPHIL # (test code = EO#) 0.56 K/mm3 0.0-0.5 H BASOPHIL # (test code = BA#) 0.06 K/mm3 0.0-0.2 N NUCLEATED RBC # (test code = NRBC#) 0.00 K/mm3 0.0-0.1 N AG HEPAT B [id number] 09:54:00* Test Item Value Reference Range Interpretation Comments AG HEPAT B SURF (test code = HBSAG) Nonreactive Index Nonreactive [id number] 07:11:00* Test Item Value Reference Range Interpretation Comments GLUBED (test code = GLUBED) 122 mg/dL 74-106 H Performed by certified facsimile machine operator at [facility] [id number] 02:54:00* Test Item Value Reference Range Interpretation Comments GLUBED (test code = GLUBED) 175 mg/dL 74-106 H Performed by certified facsimile machine operator at [facility] URINALYSIS [id number] 01:20:00* Test Item Value Reference Range Interpretation Comments UA COLOR (test code = COLU) LIGHT YELLOW YELLOW UA APPEARANCE (test code = APPU) Cloudy CLEAR A UA GLUCOSE DIPSTICK (test code = DGLUU) >=500 mg/dL NEGATIVE A UA BILIRUBIN DIPSTICK (test code = BILU) NEGATIVE mg/dL NEGATIVE UA KETONE DIPSTICK (test code = KETU) Negative mg/dL NEGATIVE UA SPECIFIC GRAVITY (test code = SGU) 1.012 1.001-1.035 UA BLOOD DIPSTICK (test code = BING) 2+ (Moderate) NEGATIVE A UA PH DIPSTICK (test code = ROXI) 6.0 5.0-8.0 UA PROTEIN DIPSTICK (test code = PROU) >500 (3+) mg/dL NEGATIVE A UA UROBILINIOGEN DIPSTICK (test code = URO) NEGATIVE mg/dL NEGATIVE UA NITRITE DIPSTICK (test code = HORTENCIA) NEGATIVE NEGATIVE UA LEUKOCYTE ESTERASE W REFLEX (test code = LEUUR) 3+ NEG ATIVE A UA WBC (test code = WBCU) >50 #/HPF 0-5 A UA RBC (test code = RBCU) >20 #/HPF 0-5 A UA EPITHELIAL CELLS (test code = EPIU) MOD per HPF FEW UA BACTERIA (test code = BACU) FEW #/HPF NONE A UA HYALINE CAST (test code = HYALU) 3-5 #/LPF 0-5 Urine Source? Clean CatchPROCALCITONIN (PCT)2018-06-09 00:26:00* Test Item Value Reference Range Interpretation Comments PROCALCITONIN (PCT) (test code = PROCAL) 0.15 ng/ml Concentration Interpretation (ng/mL) <0.51 Sepsis is not likely. Local bacterial infection is possible. (LOW RISK for progression to Sepsis) 0.51 - 2.00 Sepsis is possible, but other conditions are known to elevate PCT as well. (MODERATE RISK for progression to Sepsis) > 2.00 Sepsis is likely, unless other causes are known. (HIGH RISK for progression to Severe Sepsis or Septic Shock) 10.00 High likelihood of Severe Sepsis or Septic or higher Shock. *Increased PCT levels may not always be related to systemic bacterial infection.*Low PCT levels do not automatically exclude the presence of bacterial infection.*All results should be interpreted taking into account the patients history. BASIC METABOLIC [id number] 23:44:00* Test Item Value Reference Range Interpretation Comments SODIUM (test code = NA) 141 mmol/L 136-145 N POTASSIUM (test code = K) 5.4 mmol/L 3.5-5.1 H CHLORIDE (test code = CL) 110.0 mmol/L 98-107 H CARBON DIOXIDE (test code = CO2) 16.0 mmol/L 21-32 L ANION GAP (test code = GAP) 20.4 10-20 H GLUCOSE (test code = GLU) 172 mg/dL 74-106 H BLOOD UREA NITROGEN (test code = BUN) 89 mg/dL 7-18 H GLOMERULAR FILTRATION RATE (test code = GFR) 4 mL/min >=60 Estimated GFR by using Modified MDRD formula.Chronic kidney disease is defined as either kidney damageor GFR <60 mL/min/1.73 m2 for >3 months. CREATININE (test code = CREAT) 11.80 mg/dL 0.55-1.02 H Note change in reference range due to change in reagent. BUN/CREATININE RATIO (test code = BUN/CREA) 7.5 10-20 L CALCIUM (test code = CA) 7.3 mg/dL 8.5-10.1 L HEPATIC FUNCTION [id number] 23:44:00* Test Item Value Reference Range Interpretation Comments TOTAL PROTEIN (test code = PROT) 8.3 gram/dL 6.4-8.2 H ALBUMIN (test code = ALB) 3.0 g/dL 3.4-5.0 L GLOBULIN (test code = GLOB) 5.3 gram/dL 2.7-4.2 H ALBUMIN/GLOBULIN RATIO (test code = A/G) 0.6 0.75-1.50 L BILIRUBIN TOTAL (test code = BILT) 0.20 mg/dL 0.0-1.0 N BILIRUBIN DIRECT (test code = BILD) 0.06 mg/dL 0.0-0.20 N SGOT/AST (test code = AST) 13 IUnit/L 15-37 L SGPT/ALT (test code = ALT) 13 IUnit/L 12-78 N ALKALINE PHOSPHATASE TOTAL (test code = ALKP) 108 IUnit/L 45-117 N Note change in reference range due to change in reagent. [id number] 23:44:00* Test Item Value Reference Range Interpretation Comments TROPONIN-I (test code = TROPI) <0.015 ng/mL 0-0.045 N LACTIC [id number] 23:44:00* Test Item Value Reference Range Interpretation Comments LACTIC ACID (test code = LACT) 0.6 mmol/L 0.4-1.9 N BASIC METABOLIC [id number] 23:35:00* Test Item Value Reference Range Interpretation Comments SODIUM (test code = NA) 141 mmol/L 136-145 N POTASSIUM (test code = K) 5.4 mmol/L 3.5-5.1 H CHLORIDE (test code = CL) 110.0 mmol/L 98-107 H CARBON DIOXIDE (test code = CO2) mmol/L 21-32 ANION GAP (test code = GAP) 10-20 GLUCOSE (test code = GLU) mg/dL 74-106 BLOOD UREA NITROGEN (test code = BUN) mg/dL 7-18 GLOMERULAR FILTRATION RATE (test code = GFR) mL/min >=60 CREATININE (test code = CREAT) mg/dL 0.55-1.02 BUN/CREATININE RATIO (test code = BUN/CREA) 10-20 CALCIUM (test code = CA) mg/dL 8.5-10.1 HEPATIC FUNCTION [id number] 23:35:00* Test Item Value Reference Range Interpretation Comments TOTAL PROTEIN (test code = PROT) gram/dL 6.4-8.2 ALBUMIN (test code = ALB) g/dL 3.4-5.0 GLOBULIN (test code = GLOB) gram/dL 2.7-4.2 ALBUMIN/GLOBULIN RATIO (test code = A/G) 0.75-1.50 BILIRUBIN TOTAL (test code = BILT) mg/dL 0.0-1.0 BILIRUBIN DIRECT (test code = BILD) mg/dL 0.0-0.20 SGOT/AST (test code = AST) IUnit/L 15-37 SGPT/ALT (test code = ALT) IUnit/L 12-78 ALKALINE PHOSPHATASE TOTAL (test code = ALKP) IUnit/L 45-117 [id number] 23:35:00* Test Item Value Reference Range Interpretation Comments TROPONIN-I (test code = TROPI) ng/mL 0-0.045 CBC W/AUTO [id number] 23:26:00* Test Item Value Reference Range Interpretation Comments WHITE BLOOD CELL (test code = WBC) 10.6 K/mm3 4.5-12.5 N RED BLOOD CELL (test code = RBC) 2.87 mill/mm3 3.7-5.2 L HEMOGLOBIN (test code = HGB) 8.5 gram/dL 11.5-15.5 L HEMATOCRIT (test code = HCT) 28.1 % 36.0-46.0 L MEAN CELL VOLUME (test code = MCV) 97.9 fL 80-98 N MEAN CELL HGB (test code = MCH) 29.6 picogram 27.0-33.0 N MEAN CELL HGB CONCETRATION (test code = MCHC) 30.2 gram/dL 33.0-36. 0 L RED CELL DISTRIBUTION WIDTH (test code = RDW) 15.0 % 11.6-16. 2 N RED CELL DISTRIBUTION WIDTH SD (test code = RDW-SD) 54.6 fL 37 .0-51.0 H PLATELET COUNT (test code = PLT) 257 K/mm3 150-450 N MEAN PLATELET VOLUME (test code = MPV) 9.9 fL 6.7-11.0 N NEUTROPHIL % (test code = NT%) 67.9 % 39.0-69.0 N IMMATURE GRANULOCYTE % (test code = IG%) 0.6 % 0.0-5.0 N LYMPHOCYTE % (test code = LY%) 20.0 % 25.0-55.0 L MONOCYTE % (test code = MO%) 5.0 % 0.0-10.0 N EOSINOPHIL % (test code = EO%) 5.9 % 0.0-5.0 H BASOPHIL % (test code = BA%) 0.6 % 0.0-1.0 N NUCLEATED RBC % (test code = NRBC%) 0.0 % 0-0 N NEUTROPHIL # (test code = NT#) 7.20 K/mm3 1.8-7.7 N IMMATURE GRANULOCYTE # (test code = IG#) 0.06 x10 3/uL 0-0.03 H LYMPHOCYTE # (test code = LY#) 2.12 K/mm3 1.0-5.0 N MONOCYTE # (test code = MO#) 0.53 K/mm3 0-0.8 N EOSINOPHIL # (test code = EO#) 0.63 K/mm3 0.0-0.5 H BASOPHIL # (test code = BA#) 0.06 K/mm3 0.0-0.2 N NUCLEATED RBC # (test code = NRBC#) 0.00 K/mm3 0.0-0.1 N - XR CHEST 1 [id number] 23:20:00 FAX: Cade Hardwick [facility]: B St: PRE Name: GISELA RAYMOND [facility] : [birth year] 72 Age/S: 42/F [address] [facility] Unit #: [id number] Loc: [place] [address] Phys: Cade Hardwick MD Acct: [id number] Dis Date: Status: PRE ER PHONE #: [phone] Exam Date: 06/08/2018 2318 FAX #: [phone] Reason: CODE SEPSIS EXAMS: CPT CODE: [id number] XR CHEST 1 V [id number] AFTER HOURS SERVICE ON: 06/08/2018 11:18 PM AP Portable Chest Location Code M12 HISTORY: CODE SEPSIS FINDINGS: There are fin dings consistent with pulmonary edema. There is a small right pleural eff usion. The appearance is unchanged from 03/21/2018. Cardiac silhouette i s mildly enlarged. Left double-lumen IJ catheter is noted in place projec ting over the right atrium. There is no pneumothorax. IMP RESSION: Pulmonary edema similar to February 2018. Small rig ht pleural effusion. at 5340 Reported and signed by: Priscila Aquino M.D. CC: Cade Hardwick MD Technol ogist: RT BUBBA(R) Trnscrd Date/Time/ By: 06/08/2018 (9121) : By: [email or web address] Orig Print D/T: S: 06/08/2018 (2 448) PAGE 1 Signed Report CHEMISTRY 8 [id number] 23:15:00* Test Item Value Reference Range Interpretation Comments ISTAT-SODIUM (test code = NAP) mmol/L 135-148 ISTAT-POTASSIUM (test code = KP) mmol/L 3.5-5.5 ISTAT-CHLORIDE (test code = CLP) mmol/L 101-109 ISTAT CARBON DIOXIDE (test code = ISTAT-CO2) mmol/L 21-32 L ISTAT CALCIUM IONIZED (test code = ISTAT-TIANNA) mg/dL 1.12-1.3 2 ISTAT-ANION GAP (test code = GAPP) MEQ/L 10-20 ISTAT-GLUCOSE (test code = GLUP) mg/dL 74-106 H ISTAT-BUN (test code = BUNP) mg/dL 3-21 H BEDSIDE CREATININE (test code = CREATBED) mg/dL 0.7-1.3 HH GLOMERULAR FILTRATION RATE POC (test code = GFRBED) 5 >6 0 LL CHEMISTRY 8 [id number] 23:15:00* Test Item Value Reference Range Interpretation Comments ISTAT-SODIUM (test code = NAP) 140 mmol/L 135-148 N ISTAT-POTASSIUM (test code = KP) 5.4 mmol/L 3.5-5.5 N ISTAT-CHLORIDE (test code = CLP) 114 mmol/L 101-109 H ISTAT CARBON DIOXIDE (test code = ISTAT-CO2) 16.0 mmol/L 21-32 L ISTAT CALCIUM IONIZED (test code = ISTAT-TIANNA) 0.93 mg/dL 1.12-1.3 2 L ISTAT-ANION GAP (test code = GAPP) 16.0 MEQ/L 10-20 N ISTAT-GLUCOSE (test code = GLUP) 172 mg/dL 74-106 H ISTAT-BUN (test code = BUNP) 84 mg/dL 3-21 H BEDSIDE CREATININE (test code = CREATBED) > 10.0 mg/dL 0.7-1.3 HH GLOMERULAR FILTRATION RATE POC (test code = GFRBED) 5 >6 0 LL BASIC METABOLIC [id number] 08:16:00* Test Item Value Reference Range Interpretation Comments SODIUM (test code = NA) 140 mmol/L 136-145 N POTASSIUM (test code = K) 5.2 mmol/L 3.5-5.1 H CHLORIDE (test code = CL) 105.0 mmol/L 98-107 N CARBON DIOXIDE (test code = CO2) 26.0 mmol/L 21-32 N ANION GAP (test code = GAP) 14.2 10-20 N GLUCOSE (test code = GLU) 138 mg/dL 74-106 H BLOOD UREA NITROGEN (test code = BUN) 34 mg/dL 7-18 H RESULT VERIFIED BY REPEAT ANALYSIS GLOMERULAR FILTRATION RATE (test code = GFR) 9 mL/min >=60 Estimated GFR by using Modified MDRD formula.Chronic kidney disease is defined as either kidney damageor GFR <60 mL/min/1.73 m2 for >3 months. CREATININE (test code = CREAT) 6.10 mg/dL 0.55-1.02 H Note change in reference range due to change in reagent. BUN/CREATININE RATIO (test code = BUN/CREA) 5.6 10-20 L CALCIUM (test code = CA) 8.1 mg/dL 8.5-10.1 L BASIC METABOLIC [id number] 08:02:00* Test Item Value Reference Range Interpretation Comments SODIUM (test code = NA) 140 mmol/L 136-145 N POTASSIUM (test code = K) 5.2 mmol/L 3.5-5.1 H CHLORIDE (test code = CL) 105.0 mmol/L 98-107 N CARBON DIOXIDE (test code = CO2) mmol/L 21-32 ANION GAP (test code = GAP) 10-20 GLUCOSE (test code = GLU) mg/dL 74-106 BLOOD UREA NITROGEN (test code = BUN) mg/dL 7-18 GLOMERULAR FILTRATION RATE (test code = GFR) mL/min >=60 CREATININE (test code = CREAT) mg/dL 0.55-1.02 BUN/CREATININE RATIO (test code = BUN/CREA) 10-20 CALCIUM (test code = CA) mg/dL 8.5-10.1 CBC W/AUTO [id number] 07:44:00* Test Item Value Reference Range Interpretation Comments WHITE BLOOD CELL (test code = WBC) 5.5 K/mm3 4.5-12.5 N RED BLOOD CELL (test code = RBC) 2.94 mill/mm3 3.7-5.2 L HEMOGLOBIN (test code = HGB) 9.3 gram/dL 11.5-15.5 L HEMATOCRIT (test code = HCT) 30.6 % 36.0-46.0 L MEAN CELL VOLUME (test code = MCV) 104.1 fL 80-98 H MEAN CELL HGB (test code = MCH) 31.6 picogram 27.0-33.0 N MEAN CELL HGB CONCETRATION (test code = MCHC) 30.4 gram/dL 33.0-36. 0 L RED CELL DISTRIBUTION WIDTH (test code = RDW) 15.4 % 11.6-16. 2 N RED CELL DISTRIBUTION WIDTH SD (test code = RDW-SD) 58.3 fL 37 .0-51.0 H PLATELET COUNT (test code = PLT) 255 K/mm3 150-450 N MEAN PLATELET VOLUME (test code = MPV) 11.3 fL 6.7-11.0 H NEUTROPHIL % (test code = NT%) 49.9 % 39.0-69.0 N IMMATURE GRANULOCYTE % (test code = IG%) 0.4 % 0.0-5.0 N LYMPHOCYTE % (test code = LY%) 35.0 % 25.0-55.0 N MONOCYTE % (test code = MO%) 10.0 % 0.0-10.0 N EOSINOPHIL % (test code = EO%) 4.0 % 0.0-5.0 N BASOPHIL % (test code = BA%) 0.7 % 0.0-1.0 N NUCLEATED RBC % (test code = NRBC%) 0.0 % 0-0 N NEUTROPHIL # (test code = NT#) 2.76 K/mm3 1.8-7.7 N IMMATURE GRANULOCYTE # (test code = IG#) 0.02 x10 3/uL 0-0.03 N LYMPHOCYTE # (test code = LY#) 1.93 K/mm3 1.0-5.0 N MONOCYTE # (test code = MO#) 0.55 K/mm3 0-0.8 N EOSINOPHIL # (test code = EO#) 0.22 K/mm3 0.0-0.5 N BASOPHIL # (test code = BA#) 0.04 K/mm3 0.0-0.2 N NUCLEATED RBC # (test code = NRBC#) 0.00 K/mm3 0.0-0.1 N MANUAL DIFF REQUIRED (test code = MDIFF) NO CBC W/AUTO [id number] 11:45:00* Test Item Value Reference Range Interpretation Comments WHITE BLOOD CELL (test code = WBC) 5.7 K/mm3 4.5-12.5 N RED BLOOD CELL (test code = RBC) 2.84 mill/mm3 3.7-5.2 L HEMOGLOBIN (test code = HGB) 8.7 gram/dL 11.5-15.5 L HEMATOCRIT (test code = HCT) 30.1 % 36.0-46.0 L MEAN CELL VOLUME (test code = MCV) 106.0 fL 80-98 H MEAN CELL HGB (test code = MCH) 30.6 picogram 27.0-33.0 N MEAN CELL HGB CONCETRATION (test code = MCHC) 28.9 gram/dL 33.0-36. 0 L RED CELL DISTRIBUTION WIDTH (test code = RDW) 15.6 % 11.6-16. 2 N RED CELL DISTRIBUTION WIDTH SD (test code = RDW-SD) 61.1 fL 37 .0-51.0 H PLATELET COUNT (test code = PLT) 237 K/mm3 150-450 N MEAN PLATELET VOLUME (test code = MPV) 11.1 fL 6.7-11.0 H NEUTROPHIL % (test code = NT%) 54.7 % 39.0-69.0 N IMMATURE GRANULOCYTE % (test code = IG%) 0.3 % 0.0-5.0 N LYMPHOCYTE % (test code = LY%) 31.4 % 25.0-55.0 N MONOCYTE % (test code = MO%) 8.7 % 0.0-10.0 N EOSINOPHIL % (test code = EO%) 4.0 % 0.0-5.0 N BASOPHIL % (test code = BA%) 0.9 % 0.0-1.0 N NUCLEATED RBC % (test code = NRBC%) 0.0 % 0-0 N NEUTROPHIL # (test code = NT#) 3.14 K/mm3 1.8-7.7 N IMMATURE GRANULOCYTE # (test code = IG#) 0.02 x10 3/uL 0-0.03 N LYMPHOCYTE # (test code = LY#) 1.80 K/mm3 1.0-5.0 N MONOCYTE # (test code = MO#) 0.50 K/mm3 0-0.8 N EOSINOPHIL # (test code = EO#) 0.23 K/mm3 0.0-0.5 N BASOPHIL # (test code = BA#) 0.05 K/mm3 0.0-0.2 N NUCLEATED RBC # (test code = NRBC#) 0.00 K/mm3 0.0-0.1 N MANUAL DIFF REQUIRED (test code = MDIFF) NO, ONLY SCAN NEEDED DIFFERENTIAL [id number] 11:45:00* Test Item Value Reference Range Interpretation Comments STAIN ACCEPTABILITY (test code = STN ACCEPTABLE) STAIN ACCEPTABLE HYPOCHROMIA (test code = HYPO) 1+ POIKILOCYTOSIS (test code = POIK) 1+ ANISOCYTOSIS (test code = ANISO) 1+ MACROCYTOSIS (test code = MACR) 1+ SCHISTOCYTES (test code = CLAUDIA) 1+ PLATELET ESTIMATE (test code = PLTEST) ADEQUATE PLATELET MORPHOLOGY (test code = PLTMORPH) SIZE VARIABLE BASIC METABOLIC [id number] 09:05:00* Test Item Value Reference Range Interpretation Comments SODIUM (test code = NA) 142 mmol/L 136-145 N POTASSIUM (test code = K) 5.0 mmol/L 3.5-5.1 N CHLORIDE (test code = CL) 108.0 mmol/L 98-107 H CARBON DIOXIDE (test code = CO2) 24.0 mmol/L 21-32 N ANION GAP (test code = GAP) 15.0 10-20 N GLUCOSE (test code = GLU) 143 mg/dL 74-106 H BLOOD UREA NITROGEN (test code = BUN) 54 mg/dL 7-18 H GLOMERULAR FILTRATION RATE (test code = GFR) 7 mL/min >=60 Estimated GFR by using Modified MDRD formula.Chronic kidney disease is defined as either kidney damageor GFR <60 mL/min/1.73 m2 for >3 months. CREATININE (test code = CREAT) 8.00 mg/dL 0.55-1.02 H Note change in reference range due to change in reagent. BUN/CREATININE RATIO (test code = BUN/CREA) 6.8 10-20 L CALCIUM (test code = CA) 7.5 mg/dL 8.5-10.1 L BASIC METABOLIC [id number] 09:01:00* Test Item Value Reference Range Interpretation Comments SODIUM (test code = NA) 142 mmol/L 136-145 N POTASSIUM (test code = K) 5.0 mmol/L 3.5-5.1 N CHLORIDE (test code = CL) 108.0 mmol/L 98-107 H CARBON DIOXIDE (test code = CO2) mmol/L 21-32 ANION GAP (test code = GAP) 10-20 GLUCOSE (test code = GLU) mg/dL 74-106 BLOOD UREA NITROGEN (test code = BUN) mg/dL 7-18 GLOMERULAR FILTRATION RATE (test code = GFR) mL/min >=60 CREATININE (test code = CREAT) mg/dL 0.55-1.02 BUN/CREATININE RATIO (test code = BUN/CREA) 10-20 CALCIUM (test code = CA) mg/dL 8.5-10.1 CBC W/AUTO [id number] 08:44:00* Test Item Value Reference Range Interpretation Comments WHITE BLOOD CELL (test code = WBC) 5.7 K/mm3 4.5-12.5 N RED BLOOD CELL (test code = RBC) 2.84 mill/mm3 3.7-5.2 L HEMOGLOBIN (test code = HGB) 8.7 gram/dL 11.5-15.5 L HEMATOCRIT (test code = HCT) 30.1 % 36.0-46.0 L MEAN CELL VOLUME (test code = MCV) 106.0 fL 80-98 H MEAN CELL HGB (test code = MCH) 30.6 picogram 27.0-33.0 N MEAN CELL HGB CONCETRATION (test code = MCHC) 28.9 gram/dL 33.0-36. 0 L RED CELL DISTRIBUTION WIDTH (test code = RDW) 15.6 % 11.6-16. 2 N RED CELL DISTRIBUTION WIDTH SD (test code = RDW-SD) 61.1 fL 37 .0-51.0 H PLATELET COUNT (test code = PLT) 237 K/mm3 150-450 N MEAN PLATELET VOLUME (test code = MPV) 11.1 fL 6.7-11.0 H NEUTROPHIL % (test code = NT%) 54.7 % 39.0-69.0 N IMMATURE GRANULOCYTE % (test code = IG%) 0.3 % 0.0-5.0 N LYMPHOCYTE % (test code = LY%) 31.4 % 25.0-55.0 N MONOCYTE % (test code = MO%) 8.7 % 0.0-10.0 N EOSINOPHIL % (test code = EO%) 4.0 % 0.0-5.0 N BASOPHIL % (test code = BA%) 0.9 % 0.0-1.0 N NUCLEATED RBC % (test code = NRBC%) 0.0 % 0-0 N NEUTROPHIL # (test code = NT#) 3.14 K/mm3 1.8-7.7 N IMMATURE GRANULOCYTE # (test code = IG#) 0.02 x10 3/uL 0-0.03 N LYMPHOCYTE # (test code = LY#) 1.80 K/mm3 1.0-5.0 N MONOCYTE # (test code = MO#) 0.50 K/mm3 0-0.8 N EOSINOPHIL # (test code = EO#) 0.23 K/mm3 0.0-0.5 N BASOPHIL # (test code = BA#) 0.05 K/mm3 0.0-0.2 N NUCLEATED RBC # (test code = NRBC#) 0.00 K/mm3 0.0-0.1 N MANUAL DIFF REQUIRED (test code = MDIFF) NO, ONLY SCAN NEEDED DIFFERENTIAL [id number] 08:44:00* Test Item Value Reference Range Interpretation Comments STAIN ACCEPTABILITY (test code = STN ACCEPTABLE) CABOT RINGS (test code = CAB) MORPHOLOGY COMMENT (test code = MOC) PLATELET ESTIMATE (test code = PLTEST) PLATELET MORPHOLOGY (test code = PLTMORPH) CBC W/AUTO [id number] 08:44:00* Test Item Value Reference Range Interpretation Comments WHITE BLOOD CELL (test code = WBC) 5.7 K/mm3 4.5-12.5 N RED BLOOD CELL (test code = RBC) 2.84 mill/mm3 3.7-5.2 L HEMOGLOBIN (test code = HGB) 8.7 gram/dL 11.5-15.5 L HEMATOCRIT (test code = HCT) 30.1 % 36.0-46.0 L MEAN CELL VOLUME (test code = MCV) 106.0 fL 80-98 H MEAN CELL HGB (test code = MCH) 30.6 picogram 27.0-33.0 N MEAN CELL HGB CONCETRATION (test code = MCHC) 28.9 gram/dL 33.0-36. 0 L RED CELL DISTRIBUTION WIDTH (test code = RDW) 15.6 % 11.6-16. 2 N RED CELL DISTRIBUTION WIDTH SD (test code = RDW-SD) 61.1 fL 37 .0-51.0 H PLATELET COUNT (test code = PLT) 237 K/mm3 150-450 N MEAN PLATELET VOLUME (test code = MPV) 11.1 fL 6.7-11.0 H NEUTROPHIL % (test code = NT%) 54.7 % 39.0-69.0 N IMMATURE GRANULOCYTE % (test code = IG%) 0.3 % 0.0-5.0 N LYMPHOCYTE % (test code = LY%) 31.4 % 25.0-55.0 N MONOCYTE % (test code = MO%) 8.7 % 0.0-10.0 N EOSINOPHIL % (test code = EO%) 4.0 % 0.0-5.0 N BASOPHIL % (test code = BA%) 0.9 % 0.0-1.0 N NUCLEATED RBC % (test code = NRBC%) 0.0 % 0-0 N NEUTROPHIL # (test code = NT#) 3.14 K/mm3 1.8-7.7 N IMMATURE GRANULOCYTE # (test code = IG#) 0.02 x10 3/uL 0-0.03 N LYMPHOCYTE # (test code = LY#) 1.80 K/mm3 1.0-5.0 N MONOCYTE # (test code = MO#) 0.50 K/mm3 0-0.8 N EOSINOPHIL # (test code = EO#) 0.23 K/mm3 0.0-0.5 N BASOPHIL # (test code = BA#) 0.05 K/mm3 0.0-0.2 N NUCLEATED RBC # (test code = NRBC#) 0.00 K/mm3 0.0-0.1 N MANUAL DIFF REQUIRED (test code = MDIFF) NO, ONLY SCAN NEEDED DIFFERENTIAL [id number] 08:44:00* Test Item Value Reference Range Interpretation Comments STAIN ACCEPTABILITY (test code = STN ACCEPTABLE) CABOT RINGS (test code = CAB) MORPHOLOGY COMMENT (test code = MOC) PLATELET ESTIMATE (test code = PLTEST) PLATELET MORPHOLOGY (test code = PLTMORPH) CBC W/AUTO [id number] 08:44:00* Test Item Value Reference Range Interpretation Comments WHITE BLOOD CELL (test code = WBC) 5.7 K/mm3 4.5-12.5 N RED BLOOD CELL (test code = RBC) 2.84 mill/mm3 3.7-5.2 L HEMOGLOBIN (test code = HGB) 8.7 gram/dL 11.5-15.5 L HEMATOCRIT (test code = HCT) 30.1 % 36.0-46.0 L MEAN CELL VOLUME (test code = MCV) 106.0 fL 80-98 H MEAN CELL HGB (test code = MCH) 30.6 picogram 27.0-33.0 N MEAN CELL HGB CONCETRATION (test code = MCHC) 28.9 gram/dL 33.0-36. 0 L RED CELL DISTRIBUTION WIDTH (test code = RDW) 15.6 % 11.6-16. 2 N RED CELL DISTRIBUTION WIDTH SD (test code = RDW-SD) 61.1 fL 37 .0-51.0 H PLATELET COUNT (test code = PLT) 237 K/mm3 150-450 N MEAN PLATELET VOLUME (test code = MPV) 11.1 fL 6.7-11.0 H NEUTROPHIL % (test code = NT%) 54.7 % 39.0-69.0 N IMMATURE GRANULOCYTE % (test code = IG%) 0.3 % 0.0-5.0 N LYMPHOCYTE % (test code = LY%) 31.4 % 25.0-55.0 N MONOCYTE % (test code = MO%) 8.7 % 0.0-10.0 N EOSINOPHIL % (test code = EO%) 4.0 % 0.0-5.0 N BASOPHIL % (test code = BA%) 0.9 % 0.0-1.0 N NUCLEATED RBC % (test code = NRBC%) 0.0 % 0-0 N NEUTROPHIL # (test code = NT#) 3.14 K/mm3 1.8-7.7 N IMMATURE GRANULOCYTE # (test code = IG#) 0.02 x10 3/uL 0-0.03 N LYMPHOCYTE # (test code = LY#) 1.80 K/mm3 1.0-5.0 N MONOCYTE # (test code = MO#) 0.50 K/mm3 0-0.8 N EOSINOPHIL # (test code = EO#) 0.23 K/mm3 0.0-0.5 N BASOPHIL # (test code = BA#) 0.05 K/mm3 0.0-0.2 N NUCLEATED RBC # (test code = NRBC#) 0.00 K/mm3 0.0-0.1 N MANUAL DIFF REQUIRED (test code = MDIFF) NO, ONLY SCAN NEEDED DIFFERENTIAL [id number] 08:44:00* Test Item Value Reference Range Interpretation Comments STAIN ACCEPTABILITY (test code = STN ACCEPTABLE) MORPHOLOGY COMMENT (test code = MOC) PLATELET ESTIMATE (test code = PLTEST) PLATELET MORPHOLOGY (test code = PLTMORPH) CBC W/AUTO [id number] 08:44:00* Test Item Value Reference Range Interpretation Comments WHITE BLOOD CELL (test code = WBC) 5.7 K/mm3 4.5-12.5 N RED BLOOD CELL (test code = RBC) 2.84 mill/mm3 3.7-5.2 L HEMOGLOBIN (test code = HGB) 8.7 gram/dL 11.5-15.5 L HEMATOCRIT (test code = HCT) 30.1 % 36.0-46.0 L MEAN CELL VOLUME (test code = MCV) 106.0 fL 80-98 H MEAN CELL HGB (test code = MCH) 30.6 picogram 27.0-33.0 N MEAN CELL HGB CONCETRATION (test code = MCHC) 28.9 gram/dL 33.0-36. 0 L RED CELL DISTRIBUTION WIDTH (test code = RDW) 15.6 % 11.6-16. 2 N RED CELL DISTRIBUTION WIDTH SD (test code = RDW-SD) 61.1 fL 37 .0-51.0 H PLATELET COUNT (test code = PLT) 237 K/mm3 150-450 N MEAN PLATELET VOLUME (test code = MPV) 11.1 fL 6.7-11.0 H NEUTROPHIL % (test code = NT%) 54.7 % 39.0-69.0 N IMMATURE GRANULOCYTE % (test code = IG%) 0.3 % 0.0-5.0 N LYMPHOCYTE % (test code = LY%) 31.4 % 25.0-55.0 N MONOCYTE % (test code = MO%) 8.7 % 0.0-10.0 N EOSINOPHIL % (test code = EO%) 4.0 % 0.0-5.0 N BASOPHIL % (test code = BA%) 0.9 % 0.0-1.0 N NUCLEATED RBC % (test code = NRBC%) 0.0 % 0-0 N NEUTROPHIL # (test code = NT#) 3.14 K/mm3 1.8-7.7 N IMMATURE GRANULOCYTE # (test code = IG#) 0.02 x10 3/uL 0-0.03 N LYMPHOCYTE # (test code = LY#) 1.80 K/mm3 1.0-5.0 N MONOCYTE # (test code = MO#) 0.50 K/mm3 0-0.8 N EOSINOPHIL # (test code = EO#) 0.23 K/mm3 0.0-0.5 N BASOPHIL # (test code = BA#) 0.05 K/mm3 0.0-0.2 N NUCLEATED RBC # (test code = NRBC#) 0.00 K/mm3 0.0-0.1 N MANUAL DIFF REQUIRED (test code = MDIFF) NO, ONLY SCAN NEEDED DIFFERENTIAL [id number] 08:44:00* Test Item Value Reference Range Interpretation Comments STAIN ACCEPTABILITY (test code = STN ACCEPTABLE) CABOT RINGS (test code = CAB) MORPHOLOGY COMMENT (test code = MOC) PLATELET ESTIMATE (test code = PLTEST) PLATELET MORPHOLOGY (test code = PLTMORPH) CBC W/AUTO [id number] 02:21:00* Test Item Value Reference Range Interpretation Comments WHITE BLOOD CELL (test code = WBC) 6.1 K/mm3 4.5-12.5 N RED BLOOD CELL (test code = RBC) 2.84 mill/mm3 3.7-5.2 L HEMOGLOBIN (test code = HGB) 9.0 gram/dL 11.5-15.5 L HEMATOCRIT (test code = HCT) 29.5 % 36.0-46.0 L MEAN CELL VOLUME (test code = MCV) 103.9 fL 80-98 H MEAN CELL HGB (test code = MCH) 31.7 picogram 27.0-33.0 N MEAN CELL HGB CONCETRATION (test code = MCHC) 30.5 gram/dL 33.0-36. 0 L RED CELL DISTRIBUTION WIDTH (test code = RDW) 15.6 % 11.6-16. 2 N RED CELL DISTRIBUTION WIDTH SD (test code = RDW-SD) 58.7 fL 37 .0-51.0 H PLATELET COUNT (test code = PLT) 225 K/mm3 150-450 N MEAN PLATELET VOLUME (test code = MPV) 11.1 fL 6.7-11.0 H NEUTROPHIL % (test code = NT%) 60.0 % 39.0-69.0 N IMMATURE GRANULOCYTE % (test code = IG%) 0.2 % 0.0-5.0 N LYMPHOCYTE % (test code = LY%) 27.8 % 25.0-55.0 N MONOCYTE % (test code = MO%) 7.7 % 0.0-10.0 N EOSINOPHIL % (test code = EO%) 3.8 % 0.0-5.0 N BASOPHIL % (test code = BA%) 0.5 % 0.0-1.0 N NUCLEATED RBC % (test code = NRBC%) 0.0 % 0-0 N NEUTROPHIL # (test code = NT#) 3.64 K/mm3 1.8-7.7 N IMMATURE GRANULOCYTE # (test code = IG#) 0.01 x10 3/uL 0-0.03 N LYMPHOCYTE # (test code = LY#) 1.69 K/mm3 1.0-5.0 N MONOCYTE # (test code = MO#) 0.47 K/mm3 0-0.8 N EOSINOPHIL # (test code = EO#) 0.23 K/mm3 0.0-0.5 N BASOPHIL # (test code = BA#) 0.03 K/mm3 0.0-0.2 N NUCLEATED RBC # (test code = NRBC#) 0.00 K/mm3 0.0-0.1 N MANUAL DIFF REQUIRED (test code = MDIFF) NO, ONLY SCAN NEEDED DIFFERENTIAL [id number] 02:21:00* Test Item Value Reference Range Interpretation Comments STAIN ACCEPTABILITY (test code = STN ACCEPTABLE) STAIN ACCEPTABLE ANISOCYTOSIS (test code = ANISO) 2+ MACROCYTOSIS (test code = MACR) 2+ PLATELET ESTIMATE (test code = PLTEST) ADEQUATE PLATELET MORPHOLOGY (test code = PLTMORPH) GIANT PLATELETS SEEN BASIC METABOLIC [id number] 01:58:00* Test Item Value Reference Range Interpretation Comments SODIUM (test code = NA) 140 mmol/L 136-145 N POTASSIUM (test code = K) 4.6 mmol/L 3.5-5.1 N CHLORIDE (test code = CL) 106.0 mmol/L 98-107 N CARBON DIOXIDE (test code = CO2) 24.0 mmol/L 21-32 N ANION GAP (test code = GAP) 14.6 10-20 N GLUCOSE (test code = GLU) 138 mg/dL 74-106 H BLOOD UREA NITROGEN (test code = BUN) 53 mg/dL 7-18 H GLOMERULAR FILTRATION RATE (test code = GFR) 7 mL/min >=60 Estimated GFR by using Modified MDRD formula.Chronic kidney disease is defined as either kidney damageor GFR <60 mL/min/1.73 m2 for >3 months. CREATININE (test code = CREAT) 7.60 mg/dL 0.55-1.02 H Note change in reference range due to change in reagent. BUN/CREATININE RATIO (test code = BUN/CREA) 6.9 10-20 L CALCIUM (test code = CA) 7.3 mg/dL 8.5-10.1 L BASIC METABOLIC [id number] 01:54:00* Test Item Value Reference Range Interpretation Comments SODIUM (test code = NA) 140 mmol/L 136-145 N POTASSIUM (test code = K) 4.6 mmol/L 3.5-5.1 N CHLORIDE (test code = CL) 106.0 mmol/L 98-107 N CARBON DIOXIDE (test code = CO2) mmol/L 21-32 ANION GAP (test code = GAP) 10-20 GLUCOSE (test code = GLU) mg/dL 74-106 BLOOD UREA NITROGEN (test code = BUN) mg/dL 7-18 GLOMERULAR FILTRATION RATE (test code = GFR) mL/min >=60 CREATININE (test code = CREAT) mg/dL 0.55-1.02 BUN/CREATININE RATIO (test code = BUN/CREA) 10-20 CALCIUM (test code = CA) mg/dL 8.5-10.1 CBC W/AUTO [id number] 01:28:00* Test Item Value Reference Range Interpretation Comments WHITE BLOOD CELL (test code = WBC) 6.1 K/mm3 4.5-12.5 N RED BLOOD CELL (test code = RBC) 2.84 mill/mm3 3.7-5.2 L HEMOGLOBIN (test code = HGB) 9.0 gram/dL 11.5-15.5 L HEMATOCRIT (test code = HCT) 29.5 % 36.0-46.0 L MEAN CELL VOLUME (test code = MCV) 103.9 fL 80-98 H MEAN CELL HGB (test code = MCH) 31.7 picogram 27.0-33.0 N MEAN CELL HGB CONCETRATION (test code = MCHC) 30.5 gram/dL 33.0-36. 0 L RED CELL DISTRIBUTION WIDTH (test code = RDW) 15.6 % 11.6-16. 2 N RED CELL DISTRIBUTION WIDTH SD (test code = RDW-SD) 58.7 fL 37 .0-51.0 H PLATELET COUNT (test code = PLT) 225 K/mm3 150-450 N MEAN PLATELET VOLUME (test code = MPV) 11.1 fL 6.7-11.0 H NEUTROPHIL % (test code = NT%) 60.0 % 39.0-69.0 N IMMATURE GRANULOCYTE % (test code = IG%) 0.2 % 0.0-5.0 N LYMPHOCYTE % (test code = LY%) 27.8 % 25.0-55.0 N MONOCYTE % (test code = MO%) 7.7 % 0.0-10.0 N EOSINOPHIL % (test code = EO%) 3.8 % 0.0-5.0 N BASOPHIL % (test code = BA%) 0.5 % 0.0-1.0 N NUCLEATED RBC % (test code = NRBC%) 0.0 % 0-0 N NEUTROPHIL # (test code = NT#) 3.64 K/mm3 1.8-7.7 N IMMATURE GRANULOCYTE # (test code = IG#) 0.01 x10 3/uL 0-0.03 N LYMPHOCYTE # (test code = LY#) 1.69 K/mm3 1.0-5.0 N MONOCYTE # (test code = MO#) 0.47 K/mm3 0-0.8 N EOSINOPHIL # (test code = EO#) 0.23 K/mm3 0.0-0.5 N BASOPHIL # (test code = BA#) 0.03 K/mm3 0.0-0.2 N NUCLEATED RBC # (test code = NRBC#) 0.00 K/mm3 0.0-0.1 N MANUAL DIFF REQUIRED (test code = MDIFF) NO, ONLY SCAN NEEDED DIFFERENTIAL [id number] 01:28:00* Test Item Value Reference Range Interpretation Comments STAIN ACCEPTABILITY (test code = STN ACCEPTABLE) CABOT RINGS (test code = CAB) MORPHOLOGY COMMENT (test code = MOC) PLATELET ESTIMATE (test code = PLTEST) PLATELET MORPHOLOGY (test code = PLTMORPH) CBC W/AUTO [id number] 01:28:00* Test Item Value Reference Range Interpretation Comments WHITE BLOOD CELL (test code = WBC) 6.1 K/mm3 4.5-12.5 N RED BLOOD CELL (test code = RBC) 2.84 mill/mm3 3.7-5.2 L HEMOGLOBIN (test code = HGB) 9.0 gram/dL 11.5-15.5 L HEMATOCRIT (test code = HCT) 29.5 % 36.0-46.0 L MEAN CELL VOLUME (test code = MCV) 103.9 fL 80-98 H MEAN CELL HGB (test code = MCH) 31.7 picogram 27.0-33.0 N MEAN CELL HGB CONCETRATION (test code = MCHC) 30.5 gram/dL 33.0-36. 0 L RED CELL DISTRIBUTION WIDTH (test code = RDW) 15.6 % 11.6-16. 2 N RED CELL DISTRIBUTION WIDTH SD (test code = RDW-SD) 58.7 fL 37 .0-51.0 H PLATELET COUNT (test code = PLT) 225 K/mm3 150-450 N MEAN PLATELET VOLUME (test code = MPV) 11.1 fL 6.7-11.0 H NEUTROPHIL % (test code = NT%) 60.0 % 39.0-69.0 N IMMATURE GRANULOCYTE % (test code = IG%) 0.2 % 0.0-5.0 N LYMPHOCYTE % (test code = LY%) 27.8 % 25.0-55.0 N MONOCYTE % (test code = MO%) 7.7 % 0.0-10.0 N EOSINOPHIL % (test code = EO%) 3.8 % 0.0-5.0 N BASOPHIL % (test code = BA%) 0.5 % 0.0-1.0 N NUCLEATED RBC % (test code = NRBC%) 0.0 % 0-0 N NEUTROPHIL # (test code = NT#) 3.64 K/mm3 1.8-7.7 N IMMATURE GRANULOCYTE # (test code = IG#) 0.01 x10 3/uL 0-0.03 N LYMPHOCYTE # (test code = LY#) 1.69 K/mm3 1.0-5.0 N MONOCYTE # (test code = MO#) 0.47 K/mm3 0-0.8 N EOSINOPHIL # (test code = EO#) 0.23 K/mm3 0.0-0.5 N BASOPHIL # (test code = BA#) 0.03 K/mm3 0.0-0.2 N NUCLEATED RBC # (test code = NRBC#) 0.00 K/mm3 0.0-0.1 N MANUAL DIFF REQUIRED (test code = MDIFF) NO, ONLY SCAN NEEDED DIFFERENTIAL [id number] 01:28:00* Test Item Value Reference Range Interpretation Comments STAIN ACCEPTABILITY (test code = STN ACCEPTABLE) CABOT RINGS (test code = CAB) MORPHOLOGY COMMENT (test code = MOC) PLATELET ESTIMATE (test code = PLTEST) PLATELET MORPHOLOGY (test code = PLTMORPH) CBC W/AUTO [id number] 01:28:00* Test Item Value Reference Range Interpretation Comments WHITE BLOOD CELL (test code = WBC) 6.1 K/mm3 4.5-12.5 N RED BLOOD CELL (test code = RBC) 2.84 mill/mm3 3.7-5.2 L HEMOGLOBIN (test code = HGB) 9.0 gram/dL 11.5-15.5 L HEMATOCRIT (test code = HCT) 29.5 % 36.0-46.0 L MEAN CELL VOLUME (test code = MCV) 103.9 fL 80-98 H MEAN CELL HGB (test code = MCH) 31.7 picogram 27.0-33.0 N MEAN CELL HGB CONCETRATION (test code = MCHC) 30.5 gram/dL 33.0-36. 0 L RED CELL DISTRIBUTION WIDTH (test code = RDW) 15.6 % 11.6-16. 2 N RED CELL DISTRIBUTION WIDTH SD (test code = RDW-SD) 58.7 fL 37 .0-51.0 H PLATELET COUNT (test code = PLT) 225 K/mm3 150-450 N MEAN PLATELET VOLUME (test code = MPV) 11.1 fL 6.7-11.0 H NEUTROPHIL % (test code = NT%) 60.0 % 39.0-69.0 N IMMATURE GRANULOCYTE % (test code = IG%) 0.2 % 0.0-5.0 N LYMPHOCYTE % (test code = LY%) 27.8 % 25.0-55.0 N MONOCYTE % (test code = MO%) 7.7 % 0.0-10.0 N EOSINOPHIL % (test code = EO%) 3.8 % 0.0-5.0 N BASOPHIL % (test code = BA%) 0.5 % 0.0-1.0 N NUCLEATED RBC % (test code = NRBC%) 0.0 % 0-0 N NEUTROPHIL # (test code = NT#) 3.64 K/mm3 1.8-7.7 N IMMATURE GRANULOCYTE # (test code = IG#) 0.01 x10 3/uL 0-0.03 N LYMPHOCYTE # (test code = LY#) 1.69 K/mm3 1.0-5.0 N MONOCYTE # (test code = MO#) 0.47 K/mm3 0-0.8 N EOSINOPHIL # (test code = EO#) 0.23 K/mm3 0.0-0.5 N BASOPHIL # (test code = BA#) 0.03 K/mm3 0.0-0.2 N NUCLEATED RBC # (test code = NRBC#) 0.00 K/mm3 0.0-0.1 N MANUAL DIFF REQUIRED (test code = MDIFF) NO, ONLY SCAN NEEDED DIFFERENTIAL [id number] 01:28:00* Test Item Value Reference Range Interpretation Comments STAIN ACCEPTABILITY (test code = STN ACCEPTABLE) MORPHOLOGY COMMENT (test code = MOC) PLATELET ESTIMATE (test code = PLTEST) PLATELET MORPHOLOGY (test code = PLTMORPH) CBC W/AUTO [id number] 01:27:00* Test Item Value Reference Range Interpretation Comments WHITE BLOOD CELL (test code = WBC) 6.1 K/mm3 4.5-12.5 N RED BLOOD CELL (test code = RBC) 2.84 mill/mm3 3.7-5.2 L HEMOGLOBIN (test code = HGB) 9.0 gram/dL 11.5-15.5 L HEMATOCRIT (test code = HCT) 29.5 % 36.0-46.0 L MEAN CELL VOLUME (test code = MCV) 103.9 fL 80-98 H MEAN CELL HGB (test code = MCH) 31.7 picogram 27.0-33.0 N MEAN CELL HGB CONCETRATION (test code = MCHC) 30.5 gram/dL 33.0-36. 0 L RED CELL DISTRIBUTION WIDTH (test code = RDW) 15.6 % 11.6-16. 2 N RED CELL DISTRIBUTION WIDTH SD (test code = RDW-SD) 58.7 fL 37 .0-51.0 H PLATELET COUNT (test code = PLT) 225 K/mm3 150-450 N MEAN PLATELET VOLUME (test code = MPV) 11.1 fL 6.7-11.0 H NEUTROPHIL % (test code = NT%) 60.0 % 39.0-69.0 N IMMATURE GRANULOCYTE % (test code = IG%) 0.2 % 0.0-5.0 N LYMPHOCYTE % (test code = LY%) 27.8 % 25.0-55.0 N MONOCYTE % (test code = MO%) 7.7 % 0.0-10.0 N EOSINOPHIL % (test code = EO%) 3.8 % 0.0-5.0 N BASOPHIL % (test code = BA%) 0.5 % 0.0-1.0 N NUCLEATED RBC % (test code = NRBC%) 0.0 % 0-0 N NEUTROPHIL # (test code = NT#) 3.64 K/mm3 1.8-7.7 N IMMATURE GRANULOCYTE # (test code = IG#) 0.01 x10 3/uL 0-0.03 N LYMPHOCYTE # (test code = LY#) 1.69 K/mm3 1.0-5.0 N MONOCYTE # (test code = MO#) 0.47 K/mm3 0-0.8 N EOSINOPHIL # (test code = EO#) 0.23 K/mm3 0.0-0.5 N BASOPHIL # (test code = BA#) 0.03 K/mm3 0.0-0.2 N NUCLEATED RBC # (test code = NRBC#) 0.00 K/mm3 0.0-0.1 N MANUAL DIFF REQUIRED (test code = MDIFF) NO, ONLY SCAN NEEDED DIFFERENTIAL [id number] 01:27:00* Test Item Value Reference Range Interpretation Comments STAIN ACCEPTABILITY (test code = STN ACCEPTABLE) CABOT RINGS (test code = CAB) MORPHOLOGY COMMENT (test code = MOC) PLATELET ESTIMATE (test code = PLTEST) PLATELET MORPHOLOGY (test code = PLTMORPH) AG HEPAT B [id number] 16:12:00* Test Item Value Reference Range Interpretation Comments AG HEPAT B SURF (test code = HBSAG) Nonreactive Index Nonreactive PROCALCITONIN (PCT)2018-05-23 06:47:00* Test Item Value Reference Range Interpretation Comments PROCALCITONIN (PCT) (test code = PROCAL) 0.18 ng/ml Concentration Interpretation (ng/mL) <0.51 Sepsis is not likely. Local bacterial infection is possible. (LOW RISK for progression to Sepsis) 0.51 - 2.00 Sepsis is possible, but other conditions are known to elevate PCT as well. (MODERATE RISK for progression to Sepsis) > 2.00 Sepsis is likely, unless other causes are known. (HIGH RISK for progression to Severe Sepsis or Septic Shock) 10.00 High likelihood of Severe Sepsis or Septic or higher Shock. *Increased PCT levels may not always be related to systemic bacterial infection.*Low PCT levels do not automatically exclude the presence of bacterial infection.*All results should be interpreted taking into account the patients history. BASIC METABOLIC [id number] 06:25:00* Test Item Value Reference Range Interpretation Comments SODIUM (test code = NA) 139 mmol/L 128-145 N POTASSIUM (test code = K) 5.8 mmol/L 3.5-5.1 H CHLORIDE (test code = CL) 105.0 mmol/L 98-107 N CARBON DIOXIDE (test code = CO2) 17.8 mmol/L 22-29 L ANION GAP (test code = GAP) 22 mmol/L 10-20 H GLUCOSE (test code = GLU) 231 mg/dL 70-110 H BLOOD UREA NITROGEN (test code = BUN) 82 mg/dL 7-22 H GLOMERULAR FILTRATION RATE (test code = GFR) 5 mL/min >=60 Estimated GFR by using Modified MDRD formula.Chronic kidney disease is defined as either kidney damageor GFR <60 mL/min/1.73 m2 for >3 months. CREATININE (test code = CREAT) 10.77 mg/dL 0.55-1.3 H BUN/CREATININE RATIO (test code = BUN/CREA) 7.6 10-20 L CALCIUM (test code = CA) 7.3 mg/dL 8.0-10.5 L URINALYSIS [id number] 04:10:00* Test Item Value Reference Range Interpretation Comments UA COLOR (test code = COLU) YELLOW YELLOW UA APPEARANCE (test code = APPU) CLOUDY CLEAR A UA GLUCOSE DIPSTICK (test code = DGLUU) 2+ mg/dL NEGATIVE UA BILIRUBIN DIPSTICK (test code = BILU) NEGATIVE NEGATIVE UA KETONE DIPSTICK (test code = KETU) NEGATIVE mg/dL NEGATIVE UA SPECIFIC GRAVITY (test code = SGU) 1.020 1.001-1.035 UA BLOOD DIPSTICK (test code = BING) 2+ (Moderate) NEGATIVE A UA PH DIPSTICK (test code = ROXI) 6.5 5.0-8.0 UA PROTEIN DIPSTICK (test code = PROU) >=300 (3+) mg/dL Neg-15 UA UROBILINIOGEN DIPSTICK (test code = URO) 0.2 mg/dL 0.0-0.2 UA NITRITE DIPSTICK (test code = HORTENCIA) NEGATIVE NEGATIVE UA LEUKOCYTE ESTERASE DIPSTICK (test code = LEUU) 1+ uL NEGA TIVE UA MICROSCOPIC NEEDED? (test code = UAMICRO) YES UA WBC (test code = WBCU) 5-10 per HPF 0-5 A IN SOME URINARY TRACT INFECTIONS THERE MAY NOT BE ENOUGHWBCs IN THE URINE TO TRIGGER AN AUTOMATIC (REFLEX) URINECULTURE. A SEPERATE ORDER FOR URINE CULTURE IS RECOMMENDEDIF THERE IS STRONG SUPPORT FOR A URINARY TRACT INFECTIONCLINICALLY. UA RBC (test code = RBCU) 3-5 per HPF 0-5 UA EPITHELIAL CELLS (test code = EPIU) Few (2-5/hpf) per HPF Few UA BACTERIA (test code = BACU) MANY per HPF NONE UA YEAST (test code = YEASTU) MANY per HPF NONE A Urine Source? Clean CatchURINALYSIS [id number] 04:04:00* Test Item Value Reference Range Interpretation Comments UA COLOR (test code = COLU) YELLOW YELLOW UA APPEARANCE (test code = APPU) CLOUDY CLEAR A UA GLUCOSE DIPSTICK (test code = DGLUU) 2+ mg/dL NEGATIVE UA BILIRUBIN DIPSTICK (test code = BILU) NEGATIVE NEGATIVE UA KETONE DIPSTICK (test code = KETU) NEGATIVE mg/dL NEGATIVE UA SPECIFIC GRAVITY (test code = SGU) 1.020 1.001-1.035 UA BLOOD DIPSTICK (test code = BING) 2+ (Moderate) NEGATIVE A UA PH DIPSTICK (test code = ROXI) 6.5 5.0-8.0 UA PROTEIN DIPSTICK (test code = PROU) >=300 (3+) mg/dL Neg-15 UA UROBILINIOGEN DIPSTICK (test code = URO) 0.2 mg/dL 0.0-0.2 UA NITRITE DIPSTICK (test code = HORTENCIA) NEGATIVE NEGATIVE UA LEUKOCYTE ESTERASE DIPSTICK (test code = LEUU) 1+ uL NEGA TIVE UA MICROSCOPIC NEEDED? (test code = UAMICRO) UA WBC (test code = WBCU) per HPF 0-5 Urine Source? Clean CatchBASIC METABOLIC [id number] 03:55:00* Test Item Value Reference Range Interpretation Comments SODIUM (test code = NA) 138 mmol/L 128-145 N POTASSIUM (test code = K) 6.1 mmol/L 3.5-5.1 H Re sults called to [id number] by POLLY 05/23/18 0347Critical results verified and read back by Nurse? Y CHLORIDE (test code = CL) 104.0 mmol/L 98-107 N CARBON DIOXIDE (test code = CO2) 20.2 mmol/L 22-29 L ANION GAP (test code = GAP) 20 mmol/L 10-20 N GLUCOSE (test code = GLU) 194 mg/dL 70-110 H BLOOD UREA NITROGEN (test code = BUN) 83 mg/dL 7-22 H GLOMERULAR FILTRATION RATE (test code = GFR) 5 mL/min >=60 Estimated GFR by using Modified MDRD formula.Chronic kidney disease is defined as either kidney damageor GFR <60 mL/min/1.73 m2 for >3 months. CREATININE (test code = CREAT) 10.79 mg/dL 0.55-1.3 H BUN/CREATININE RATIO (test code = BUN/CREA) 7.7 10-20 L CALCIUM (test code = CA) 7.7 mg/dL 8.0-10.5 L HEPATIC FUNCTION [id number] 03:55:00* Test Item Value Reference Range Interpretation Comments TOTAL PROTEIN (test code = PROT) 8.7 gram/dL 6.1-7.8 H ALBUMIN (test code = ALB) 3.1 g/dL 3.3-4.4 L GLOBULIN (test code = GLOB) 5.6 G/DL 1-10 N ALBUMIN/GLOBULIN RATIO (test code = A/G) 0.6 0.75-1.50 L BILIRUBIN TOTAL (test code = BILT) 0.30 mg/dL 0.2-1.2 N BILIRUBIN DIRECT (test code = BILD) 0.10 mg/dL 0.0-0.30 N SGOT/AST (test code = AST) 10 U/L 10-39 N SGPT/ALT (test code = ALT) 11 U/L 10-69 N ALKALINE PHOSPHATASE TOTAL (test code = ALKP) 112 U/L 50-139 N [id number] 03:55:00* Test Item Value Reference Range Interpretation Comments LIPASE (test code = LIP) 137 Unit/L 144-286 L HCG SERUM [id number] 03:55:00* Test Item Value Reference Range Interpretation Comments HCG SERUM QUAL (test code = HCGQL) NEGATIVE NEGATIVE This HCGQL test is NOT applicable for MALE patients.Check with nurse about probable order error.If Tumor Marker Test needed, nurse should order test "HCGTU"(Test #[id number]) [id number] 03:55:00* Test Item Value Reference Range Interpretation Comments TROPONIN-I (test code = TROPI) <0.015 ng/mL 0.00-0.056 N LACTIC [id number] 03:54:00* Test Item Value Reference Range Interpretation Comments LACTIC ACID (test code = LACT) 0.5 MMOL/L 0.4-1.9 N BASIC METABOLIC [id number] 03:53:00* Test Item Value Reference Range Interpretation Comments SODIUM (test code = NA) 138 mmol/L 128-145 N POTASSIUM (test code = K) 6.1 mmol/L 3.5-5.1 H Re sults called to [id number] by POLLY 05/23/18 0347Critical results verified and read back by Nurse? Y CHLORIDE (test code = CL) 104.0 mmol/L 98-107 N CARBON DIOXIDE (test code = CO2) 20.2 mmol/L 22-29 L ANION GAP (test code = GAP) 20 mmol/L 10-20 N GLUCOSE (test code = GLU) 194 mg/dL 70-110 H BLOOD UREA NITROGEN (test code = BUN) 83 mg/dL 7-22 H GLOMERULAR FILTRATION RATE (test code = GFR) 5 mL/min >=60 Estimated GFR by using Modified MDRD formula.Chronic kidney disease is defined as either kidney damageor GFR <60 mL/min/1.73 m2 for >3 months. CREATININE (test code = CREAT) 10.79 mg/dL 0.55-1.3 H BUN/CREATININE RATIO (test code = BUN/CREA) 7.7 10-20 L CALCIUM (test code = CA) 7.7 mg/dL 8.0-10.5 L HEPATIC FUNCTION [id number] 03:53:00* Test Item Value Reference Range Interpretation Comments TOTAL PROTEIN (test code = PROT) 8.7 gram/dL 6.1-7.8 H ALBUMIN (test code = ALB) 3.1 g/dL 3.3-4.4 L GLOBULIN (test code = GLOB) 5.6 G/DL 1-10 N ALBUMIN/GLOBULIN RATIO (test code = A/G) 0.6 0.75-1.50 L BILIRUBIN TOTAL (test code = BILT) 0.30 mg/dL 0.2-1.2 N BILIRUBIN DIRECT (test code = BILD) 0.10 mg/dL 0.0-0.30 N SGOT/AST (test code = AST) 10 U/L 10-39 N SGPT/ALT (test code = ALT) 11 U/L 10-69 N ALKALINE PHOSPHATASE TOTAL (test code = ALKP) 112 U/L 50-139 N [id number] 03:53:00* Test Item Value Reference Range Interpretation Comments LIPASE (test code = LIP) 137 Unit/L 144-286 L HCG SERUM [id number] 03:53:00* Test Item Value Reference Range Interpretation Comments HCG SERUM QUAL (test code = HCGQL) NEGATIVE [id number] 03:53:00* Test Item Value Reference Range Interpretation Comments TROPONIN-I (test code = TROPI) <0.015 ng/mL 0.00-0.056 N - CT ABD PELVIS W/O [id number] 03:52:00 Name: GISELA SOL [facility] FSED : 1975 Age/S: 42 / F [address] [facility] [address] Unit #: [id number] Loc: [address] Phys: Megan Evans DO [place], [place] [address] Acct: [id number] Dis Date: Status: REG ER PHONE #: Exam Date: 05/23/2018 2465 FAX #: Reason: flank pain EXAMS: CPT CODE: [id number] CT ABD PELVIS W/O CONT [id number] EXAM: - CT ABD PELVIS W/O CONT HISTORY: 42 years -old Female with flank pain TECHNIQUE: Contrast - No IV contrast was given. No oral contrast was given Noncontrast phase - abdomen and pelvis including all of kidneys Reconstructions - coronal and sagittal planes Automated exposure reduction (Auto mA/Smart mA) was utilized in compliance with ACR Image [employer] with DLP of 314 mGy-cm. COMPARISON: 05/10/2018 FINDINGS: Statements: Lack of intravenous contrast compromises evaluation of abdominopelvic organs and vasculature. Lack of oral contrast compromises evaluation of bowel. Thoracic: Included images of the lower chest demonstrate no abnormalities. Hepatobiliary: The liver is normal without focal lesion. Cholecystectomy clips are present. No biliary dilation. Pancreas: Normal. Spleen: Normal. Adrenals: Normal. Genitourinary: The kidneys are normal. There is no evidence of hydronephrosis of either kidney. There is no evidence of renal calculus. Evaluation of the bladder is limited, but no obvious bladder abnormality is present. Gastrointestinal: No bowel obstruction or perienteric inflammation. The appendix is normal. Vascular: The aorta is grossly normal in appearance. L ymphatics: No enlarged lymph nodes by CT size criteria. Bones/Soft Tissues: No acute osseous findings. No ventral hernias. PAGE 1 Signed Report (CONTINUED) Name: GISELA SOL [facility] FSED : 1975 Age /S: 42 / F [address] [facility] Unit #: [id number] Loc: [address] Phys: Megan Evans DO [place], [place] [address] Acct: [id number] Dis Date: Status: REG ER PHONE #: Exam Date: 05/23/2018 0334 FAX #: Reason: flank pain EXAMS: CPT CODE: [id number] CT ABD PELVIS W/O CONT [id number] <Continued> Peritoneum/Other: No extraluminal air. No extraluminal fluid. IMPRESSION: 1. No obstructing renal or ureteral calculi. 2. No evidence of bowel obstruction. No other changes from prior study. No other acute abnormality. at 0352 Reported and signed by: Antonia French MD CC: Megan Evans DO Technologist:Abiodun Tristan RT(R)(CT) CTDI: DLP: Trnscb Date/Time: 05/23/2018 (0352) [email or web address] Orig Print D/T: S: 05/23/2018 (0355) CTDI: DLP: PAGE 2 Signed Report PROTHROMBIN TIME 2018-05-23 03:49:00* Test Item Value Reference Range Interpretation Comments PROTHROMBIN TIME PATIENT (test code = PTP) 9.8 seconds 9.0-13.0 N INTERNATIONAL NORMAL RATIO (test code = INR) 1.0 0.8-1.2 N The therapeutic range for oral anticoagulant therapy formost indications is an international normalized ratio (INR)of between 2.0 and 3.0. The recommended therapeutic INRrange for various clinical situations is listed below: Clinical Situation INR range Pulmonary e mbolism treatment (2.0-3.0)Venous thrombosis treatmentVenous thrombosis prophylaxis (high risk surgery)Prevention of systemic embolism from: Acute myocardial infarction Valvular heart disease Atrial fibrillation Mechanical prosthetic heart valves (2.5-3.5) IS PATIENT ON ANTICOAGULANTS? NTHROMBOPLASTIN TIME [id number] 03:49:00* Test Item Value Reference Range Interpretation Comments THROMBOPLASTIN TIME PARTIAL (test code = PTT) 27.9 seconds 25.5-34. 3 N Therapeutic Range for patients on Heparin Therapy is 2 to2.5 times their baseline PTT level. IS PATIENT ON ANTICOAGULANTS? NBASIC METABOLIC [id number] 03:48:00* Test Item Value Reference Range Interpretation Comments SODIUM (test code = NA) 138 mmol/L 128-145 N POTASSIUM (test code = K) 6.1 mmol/L 3.5-5.1 H Re sults called to [id number] by POLLY 05/23/18 0347Critical results verified and read back by Nurse? Y CHLORIDE (test code = CL) 104.0 mmol/L 98-107 N CARBON DIOXIDE (test code = CO2) 20.2 mmol/L 22-29 L ANION GAP (test code = GAP) 20 mmol/L 10-20 N GLUCOSE (test code = GLU) 194 mg/dL 70-110 H BLOOD UREA NITROGEN (test code = BUN) 83 mg/dL 7-22 H GLOMERULAR FILTRATION RATE (test code = GFR) 5 mL/min >=60 Estimated GFR by using Modified MDRD formula.Chronic kidney disease is defined as either kidney damageor GFR <60 mL/min/1.73 m2 for >3 months. CREATININE (test code = CREAT) 10.79 mg/dL 0.55-1.3 H BUN/CREATININE RATIO (test code = BUN/CREA) 7.7 10-20 L CALCIUM (test code = CA) 7.7 mg/dL 8.0-10.5 L HEPATIC FUNCTION [id number] 03:48:00* Test Item Value Reference Range Interpretation Comments TOTAL PROTEIN (test code = PROT) gram/dL 6.4-8.2 ALBUMIN (test code = ALB) g/dL 3.4-5.0 GLOBULIN (test code = GLOB) G/DL 1-10 ALBUMIN/GLOBULIN RATIO (test code = A/G) 0.75-1.50 BILIRUBIN TOTAL (test code = BILT) mg/dL 0.0-1.0 BILIRUBIN DIRECT (test code = BILD) mg/dL 0.0-0.20 SGOT/AST (test code = AST) IUnit/L 15-37 SGPT/ALT (test code = ALT) IUnit/L 12-78 ALKALINE PHOSPHATASE TOTAL (test code = ALKP) IUnit/L 45-117 [id number] 03:48:00* Test Item Value Reference Range Interpretation Comments LIPASE (test code = LIP) U/L 73.0-393.0 HCG SERUM [id number] 03:48:00* Test Item Value Reference Range Interpretation Comments HCG SERUM QUAL (test code = HCGQL) NEGATIVE [id number] 03:48:00* Test Item Value Reference Range Interpretation Comments TROPONIN-I (test code = TROPI) ng/mL 0-0.045 CBC W/O [id number] 03:35:00* Test Item Value Reference Range Interpretation Comments WHITE BLOOD CELL (test code = WBC) 12.9 K/mm3 4.5-12.5 H RED BLOOD CELL (test code = RBC) 2.91 mill/mm3 3.7-5.2 L HEMOGLOBIN (test code = HGB) 9.3 gram/dL 11.5-15.5 L HEMATOCRIT (test code = HCT) 29.5 % 36.0-46.0 L MEAN CELL VOLUME (test code = MCV) 101.4 fL 80-98 H MEAN CELL HGB (test code = MCH) 32.0 picogram 27.0-33.0 N MEAN CELL HGB CONCETRATION (test code = MCHC) 31.5 gram/dL 33.0-36. 0 L RED CELL DISTRIBUTION WIDTH (test code = RDW) 16.0 % 11.6-16. 2 N RED CELL DISTRIBUTION WIDTH SD (test code = RDW-SD) 57.9 fL 37 .0-51.0 H PLATELET COUNT (test code = PLT) 224 K/mm3 150-450 N MEAN PLATELET VOLUME (test code = MPV) 10.3 fL 6.7-11.0 N - CT ABD PELVIS W/O [id number] 04:16:00 Name: GISELA SOL [facility] FSED : 1975 Age/S: 42 / F [address] [facility] Unit #: [id number] Loc: [address] Phys: Belén aVrgas MD [place], [place] [address] Acct: [id number] Dis Date: Status: DEP ER PHONE #: Exam Date: 05/10/2018 035 FAX #: Reason: B FLANK AND SUPRAPUBIC PAIN R > L EXAMS: CPT CODE: [id number] CT ABD PELVIS W/O CONT 67909 EXAM: - CT ABD PELVIS W/O CONT HISTORY: 42 years -old Female with B FLANK AND SUPRAPUBIC PAIN R > L TECHNIQUE: Contrast - No IV contrast was given. No oral contrast was given Noncontrast phase - abdomen and pelvis including all of kidneys Reconstructions - coronal and sagittal planes Automated exposure reduction (Auto mA/Smart mA) was utilized in compliance with ACR Image Wisely with DLP of 366 mGy-cm. COMPARISON: None FINDINGS: Statements: Lack of intravenous contrast compromises evaluation of abdominopelvic organs and vasculature. Lack of oral contrast compromises evaluation of bowel. Thoracic: Small right effusion is noted with mild adjacent atelectasis. Hepatobiliary: The liver is normal without focal lesion. Cholecystectomy clips are present. No biliary dilation. Pancreas: Normal. Spleen: Norm al. Adrenals: Normal. Genitourinary: The kidneys ar e normal. There is no evidence of hydronephrosis of either kidney. There is no evidence of renal calculus. Evaluation of the bladder is limited, but no obvious bladder abnormality is present. Gastrointesti nal: No bowel obstruction or perienteric inflammation. The appendix is nor mal. Vascular: Atherosclerotic calcifications are seen within the aorta and branch vessels. Lymphatics: No enlarged lymph nod es by CT size criteria. Bones/Soft Tissues: No acute osseous findi ngs. Ventral umbilical PAGE 1 Signed Report (CONTINUED) Name: GISELA SOL [facility] ED : 1975 Age/S: 42 / F [address] [facility] [address] Unit #: [id number] Loc: [address] Phys: Belén Vargas MD [place], [place] [address] Acct: [id number] Dis Date: Status: DEP ER PHONE #: Exam Date: 05/10/2018 0351 FAX #: Reason: B FLANK AND SUPRAPUBIC PAIN R > L EXAMS: CPT CODE: [id number] CT ABD PELVIS W/O CONT 53066 < Continued> hernia is noted. Fat is seen within the hernia defect with loop of small bowel adjacent to the hernia site without definite herniated bowel. No evidence of bowel obstruction. Peritoneum/Other: No extraluminal air. No extraluminal fluid. IMPRESSION: 1. No obstructing renal or ureteral calculi. 2. Normal appendix. No other acute abnormalities identified. at 0416 Reported and signed by: Antonia French MD CC: Technologist:Abiodun Tristan RT(R)(CT) CTDI: DLP: Trnscb Date/Time: 05/10/2018 (0416) [id number] Orig Print D/T: S: 05/10/2018 (0419) CTDI: DLP: PAGE 2 Signed Report Culture, [id number] 09:00:00Specimen: Urine, CC- MidstreamCollected: 01/11/2017 07:10 Status: Final Last Updated: 01/13/2017 09:00 (1) ER Bed 3 Culture Result (Final) (Final) 01/12/17 <10,000 CFU/mL Lactose Android Framework Developer Gram negative rods 01/13/17 >100,000 CFU/mL Yeast Urinalysis [id number] 08:08:00* Test Item Value Reference Range Interpretation Comments Color (test code = COLOR) Yellow Yellow,Straw,Pl yellow N Clarity (test code = CLAR) Sl Cloudy Clear A Specific Eure (test code = SPGR) 1.016 1.001-1.035 N pH (test code = PH) 5.0 5.0-9.0 N Ketone (test code = KET) Negative mg/dL Negative N Glucose (test code = GLUCUR) Negative mg/dL Negative N Protein (test code = PROT) 500 mg/dL Negative A Bilirubin (test code = BILI) Negative mg/dL Negative N Occult Blood (test code = UDOB) Negative Negative N Urobilinogen (test code = UROB) 0.2 mg/dL 0.2-1.0 N Nitrite (test code = NIT) Negative Negative N Leuk Esterase (test code = LEUK) Negative Negative N Micros Exam (test code = MEXAM) Indicated Epithelial Cells (test code = EPI) 20-29 /LPF 0-30 A WBC, Urine (test code = UWBC) 0-5 /HPF 0-5 N RBC, Urine (test code = URBC) 0-3 /HPF 0-5 A Bacteria (test code = BACT) None /HPF [id number] 07:35:00* Test Item Value Reference Range Interpretation Comments Lipase (test code = LIP) 15 U/L 13-60 N Comprehensive Metabolic [id number] 07:35:00* Test Item Value Reference Range Interpretation Comments Sodium (test code = NA) 135 mmol/L 135-145 N Potassium (test code = K) 4.7 mmol/L 3.5-5.1 N Chloride (test code = CL) 104 mmol/L 98-105 N Carbon Dioxide (test code = CO2) 16 mmol/L 22-29 L Glucose (test code = GLU) 121 mg/dL 70-115 H Blood Urea Nitrogen (test code = BUN) 30 mg/dL 6-20 H Creatinine (test code = CREAT) 4.5 mg/dL 0.5-0.9 H Calcium (test code = CA) 7.9 mg/dL 8.3-10.5 L Prot Total (test code = TP) 5.0 g/dL 6.4-8.3 L Albumin (test code = ALB) 2.4 g/dL 3.5-5.2 L A/G Ratio (test code = AGRATIO) 0.9 Ratio Globulin (test code = GLOB) 2.6 2.9-3.1 L Bili Total (test code = TBIL) <0.1 mg/dL 0.1-0.9 L Alk Phos (test code = APHOS) 65 U/L 35-104 N AST (test code = AST) 7 U/L 1-32 N ALT (test code = ALT) 5 U/L 1-33 N BUN/Creatinine Ratio (test code = BCRATIO) 6.7 Anion Gap (test code = AGAP) 15 mmol/L 7-16 N Estimated GFR (test code = GFR) 14 mL/min/1.73m2 eGFR (estimated Glomerular Filtration Rate) is an estimated value,calculated from the patient's serum creatinine using the MDRD equation.It is NOT the patient's actual GFR. The eGFR provides a more clinicallyuseful measure of kidney disease than serum creatinine alone.This calculation takes sex and race into account, if the informationis provided. If the race is not provided, and the patient isAfrican-French, multiply by 1.212. If sex is not provided, and thepatient is female, multiply by 0.742. Results for patients <18 years ofage have not been validated by the MDRD study and should be interpretedwith caution.eGFR Result Interpretation:eGFR > or = 60 is in the Normal RangeeGFR < 60 may mean kidney diseaseeGFR < 15 may mean kidney failureRanges recommended by the National Kidney Found ation,http://nkdep.nih.gov CBC with [id number] 07:10:00* Test Item Value Reference Range Interpretation Comments WBC (test code = WBC) 5.9 K/cumm 4.4-10.5 N RBC (test code = RBC) 2.67 M/cumm 3.75-5.20 L Hemoglobin (test code = HGB) 7.7 gm/dL 12.2-14.8 L Hematocrit (test code = HCT) 24.0 % 36.5-44.4 L MCV (test code = MCV) 89.8 fL 80-100 N MCH (test code = MCH) 28.8 pg 27.0-32.5 N MCHC (test code = MCHC) 32.1 g/dL 32.0-37.5 N RDW (test code = RDW) 14.3 % 11.5-14.5 N Platelet Count (test code = PLTCT) 356 K/cumm 140-440 N MPV (test code = MPV) 7.0 fL Diff Method (test code = DIFFM) Auto Neutrophil (test code = NEUT) 51.5 % 36-70 N Lymphocyte (test code = LYMPH) 38.3 % 12-44 N Monocyte (test code = MONO) 5.3 % 0-11 N Eosinophil (test code = EOS) 4.5 % 0-7 N Basophil (test code = BASO) 0.4 % 0-2 N Neutro Abs (test code = ANEUT) 3.1 K/cumm 1.6-7.4 N Lymph Abs (test code = ALYMPH) 2.3 K/cumm 0.5-4.6 N Holt Abs (test code = AMONO) 0.3 K/cumm 0.0-1.2 N Eos Abs (test code = AEOS) 0.27 K/cumm 0.00-0.74 N Baso Abs (test code = ABASO) 0.0 K/cumm 0.00-0.21 N Culture, [id number] 10:20:00Specimen: UrineCollected: 12/21/2016 23:45 Status: Final Last Updated: 12/25/2016 10:20 Culture Result (Final) (Final) 12/23/16 10,000 CFU/mL Lactose Android Framework Developer Gram negative rods 12/23/16 10,000 CFU/mL Non Lactose Android Framework Developer Gram negative rods 12/25/16 Multiple organisms present, no further workup in progress Isolate (Final) (Final) 12/23/16 >100,000 CFU/mL Group D Enterococcus 12/26/15 Vancomycin resistant enterococcus isolated contact isolation recommended 12/25/16 By disc diffusion sensitive to Minocycline Isolate Group D Enterococcus HAYDEE (mcg/ml) Ampicillin (AM) >8 Resistant Ciprofloxacin (CP) >2 Resistant Gentamicin Syn (HLG) <=500 Susceptible Levofloxacin (LEV) >4 Resistant Linezolid (LNZ) 2 Susceptible Nitrofurantoin (FT) 64 Intermediate Penicillin (P) >8 Resistant Streptomycin Syn (HLS)>1000 Resistant Tetracycline (TE) >8 Resistant Vancomycin (VA) >16 Resistant POC Glucose, [id number] 11:39:00* Test Item Value Reference Range Interpretation Comments POC Glucose (test code = POCGLUC) 125 mg/dL 70-115 H Notify RN or MDIf you consider your patient critically ill, the Maxime Accu-Chek InformII metershould not be used for Glucose determinations.Draw a venous Glucose and send to the Main Lab for Analysis. POC Glucose, [id number] 07:44:00* Test Item Value Reference Range Interpretation Comments POC Glucose (test code = POCGLUC) 118 mg/dL 70-115 H Notify RN or MDIf you consider your patient critically ill, the Maxime Accu-Chek InformII metershould not be used for Glucose determinations.Draw a venous Glucose and send to the Main Lab for Analysis. POC Glucose, [id number] 20:45:00* Test Item Value Reference Range Interpretation Comments POC Glucose (test code = POCGLUC) 103 mg/dL 70-115 N If you consider your patient critically ill, the Maxime Accu-Chek InformII metershould not be used for Glucose determinations.Draw a venous Glucose and send to the Main Lab for Analysis. POC Glucose, [id number] 16:32:00* Test Item Value Reference Range Interpretation Comments POC Glucose (test code = POCGLUC) 95 mg/dL 70-115 N Notify RN or MDIf you consider your patient critically ill, the Maxime Accu-Chek InformII metershould not be used for Glucose determinations.Draw a venous Glucose and send to the Main Lab for Analysis. Magnesium, [id number] 08:25:00* Test Item Value Reference Range Interpretation Comments Magnesium (test code = MG) 1.5 mg/dL 1.7-2.5 L Basic Metabolic [id number] 08:25:00* Test Item Value Reference Range Interpretation Comments Sodium (test code = NA) 140 mmol/L 135-145 N Potassium (test code = K) 4.3 mmol/L 3.5-5.1 N Chloride (test code = CL) 110 mmol/L 98-105 H Carbon Dioxide (test code = CO2) 19 mmol/L 22-29 L Glucose (test code = GLU) 89 mg/dL 70-115 N Blood Urea Nitrogen (test code = BUN) 31 mg/dL 6-20 H Creatinine (test code = CREAT) 3.8 mg/dL 0.5-0.9 H Calcium (test code = CA) 7.6 mg/dL 8.3-10.5 L BUN/Creatinine Ratio (test code = BCRATIO) 8.2 Anion Gap (test code = AGAP) 11 mmol/L 7-16 N Estimated GFR (test code = GFR) 17 mL/min/1.73m2 eGFR (estimated Glomerular Filtration Rate) is an estimated value,calculated from the patient's serum creatinine using the MDRD equation.It is NOT the patient's actual GFR. The eGFR provides a more clinicallyuseful measure of kidney disease than serum creatinine alone.This calculation takes sex and race into account, if the informationis provided. If the race is not provided, and the patient isAfrican-French, multiply by 1.212. If sex is not provided, and thepatient is female, multiply by 0.742. Results for patients <18 years ofage have not been validated by the MDRD study and should be interpretedwith caution.eGFR Result Interpretation:eGFR > or = 60 is in the Normal RangeeGFR < 60 may mean kidney diseaseeGFR < 15 may mean kidney failureRanges recommended by the National Kidney Found ation,http://nkdep.nih.gov POC Glucose, [id number] 08:04:00* Test Item Value Reference Range Interpretation Comments POC Glucose (test code = POCGLUC) 92 mg/dL 70-115 N If you consider your patient critically ill, the Maxime Accu-Chek InformII metershould not be used for Glucose determinations.Draw a venous Glucose and send to the Main Lab for Analysis. [id number] 07:42:00* Test Item Value Reference Range Interpretation Comments WBC (test code = WBC) 5.9 K/cumm 4.4-10.5 N RBC (test code = RBC) 2.97 M/cumm 3.75-5.20 L Hemoglobin (test code = HGB) 8.5 gm/dL 12.2-14.8 L Hematocrit (test code = HCT) 26.9 % 36.5-44.4 L MCV (test code = MCV) 90.5 fL 80-100 N MCH (test code = MCH) 28.6 pg 27.0-32.5 N MCHC (test code = MCHC) 31.6 g/dL 32.0-37.5 L RDW (test code = RDW) 14.6 % 11.5-14.5 H Platelet Count (test code = PLTCT) 295 K/cumm 140-440 N MPV (test code = MPV) 7.7 fL POC Glucose, [id number] 20:51:00* Test Item Value Reference Range Interpretation Comments POC Glucose (test code = POCGLUC) 86 mg/dL 70-115 N If you consider your patient critically ill, the Maxime Accu-Chek InformII metershould not be used for Glucose determinations.Draw a venous Glucose and send to the Main Lab for Analysis. POC Glucose, [id number] 16:40:00* Test Item Value Reference Range Interpretation Comments POC Glucose (test code = POCGLUC) 78 mg/dL 70-115 N Notify RN or MDIf you consider your patient critically ill, the Maxime Accu-Chek InformII metershould not be used for Glucose determinations.Draw a venous Glucose and send to the Main Lab for Analysis. POC Glucose, [id number] 12:39:00* Test Item Value Reference Range Interpretation Comments POC Glucose (test code = POCGLUC) 90 mg/dL 70-115 N If you consider your patient critically ill, the Maxime Accu-Chek InformII metershould not be used for Glucose determinations.Draw a venous Glucose and send to the Main Lab for Analysis. US [id number] 11:59:11DICTATION LOCATION: [id number]: ARF COMPARISON: Ct abdomen and pelvis 12/21/16TECHNIQUE: Sonography of the kidneys and bladder. FINDINGS:There is limited evaluation of left kidney secondary to overlying bowelgas.Right kidney: 11.5 x 6.3 x 6.3 cm. Increased cortical echogenicity.Right upper pole caliectasis. No renal mass or gross calculi.Left kidney: 9.6 x 6.6 x 5.8 cm. Increased cortical echogenicity. Norenal mass, hydronephrosis or gross calculi.Urinary bladder: Urinary bladder wall measures 8 mm.IMPRESSION: Markedly limited evaluation of the left kidney secondary to overlyingbowel gas.Increased cortical echogenicity compatible with medical renal disease. Right upper pole caliectasis of unclear etiology. No lefthydronephrosis.Apparent circumferential urinary bladder wall thickening. This may berelated to underdistention. Urinalysis is recommended to excludecy stitis.POC Glucose, [id number] 07:31:00* Test Item Value Reference Range Interpretation Comments POC Glucose (test code = POCGLUC) 82 mg/dL 70-115 N If you consider your patient critically ill, the Maxime Accu-Chek InformII metershould not be used for Glucose determinations.Draw a venous Glucose and send to the Main Lab for Analysis. [id number] 06:37:00* Test Item Value Reference Range Interpretation Comments WBC (test code = WBC) 7.6 K/cumm 4.4-10.5 N RBC (test code = RBC) 2.71 M/cumm 3.75-5.20 L Hemoglobin (test code = HGB) 7.8 gm/dL 12.2-14.8 L READ BACK LAB VALUESVERIFIED BY REPEAT TESTING Called to Vince Tijerina RN at 0630 12/22/2016. GI bleed. DD Hematocrit (test code = HCT) 24.7 % 36.5-44.4 L MCV (test code = MCV) 91.0 fL 80-100 N MCH (test code = MCH) 28.8 pg 27.0-32.5 N MCHC (test code = MCHC) 31.6 g/dL 32.0-37.5 L RDW (test code = RDW) 16.2 % 11.5-14.5 H Platelet Count (test code = PLTCT) 268 K/cumm 140-440 N MPV (test code = MPV) 7.4 fL Basic Metabolic [id number] 06:17:00* Test Item Value Reference Range Interpretation Comments Sodium (test code = NA) 137 mmol/L 135-145 N Potassium (test code = K) 4.1 mmol/L 3.5-5.1 N Chloride (test code = CL) 108 mmol/L 98-105 H Carbon Dioxide (test code = CO2) 17 mmol/L 22-29 L Glucose (test code = GLU) 87 mg/dL 70-115 N Blood Urea Nitrogen (test code = BUN) 37 mg/dL 6-20 H Creatinine (test code = CREAT) 4.2 mg/dL 0.5-0.9 H Calcium (test code = CA) 7.4 mg/dL 8.3-10.5 L BUN/Creatinine Ratio (test code = BCRATIO) 8.8 Anion Gap (test code = AGAP) 12 mmol/L 7-16 N Estimated GFR (test code = GFR) 15 mL/min/1.73m2 eGFR (estimated Glomerular Filtration Rate) is an estimated value,calculated from the patient's serum creatinine using the MDRD equation.It is NOT the patient's actual GFR. The eGFR provides a more clinicallyuseful measure of kidney disease than serum creatinine alone.This calculation takes sex and race into account, if the informationis provided. If the race is not provided, and the patient isAfrican-French, multiply by 1.212. If sex is not provided, and thepatient is female, multiply by 0.742. Results for patients <18 years ofage have not been validated by the MDRD study and should be interpretedwith caution.eGFR Result Interpretation:eGFR > or = 60 is in the Normal RangeeGFR < 60 may mean kidney diseaseeGFR < 15 may mean kidney failureRanges recommended by the National Kidney Found ation,http://nkdep.nih.gov Magnesium, [id number] 06:17:00* Test Item Value Reference Range Interpretation Comments Magnesium (test code = MG) 1.5 mg/dL 1.7-2.5 L Protein, Urine [id number] 00:36:00* Test Item Value Reference Range Interpretation Comments TP, Urine (test code = TPURRM) 69.9 mg/dL Sodium, Urine [id number] 00:29:00* Test Item Value Reference Range Interpretation Comments Sodium, Urine (test code = NAURRM) 55 mmol/L No Reference Ranges available for body fluid [id number] 00:29:00* Test Item Value Reference Range Interpretation Comments Amphetamine (test code = AMPH) Negative Negative N For diagnostic purposes only, positive results should always be assessedin conjunctionwith the patient's medical history,clinical examination and otherfindings.To fulfill legal requirements, a more specific alternate chemical methodmust be used inorder to obtain a Confirmed analytical result. GC/MS is the preferred confirmatory method. Barbiturates (test code = DELVIN) Negative Negative N Benzodiazepine (test code = AURA) Negative Negative N Cocaine (test code = COCA) Negative Negative N Methadone (test code = MTHD) Negative Negative N Opiates (test code = OPIA) POSITIVE Negative A PCP (test code = PCP) Negative Negative N Propoxyphene (test code = PROPOX) Negative Negative N THC (test code = THC) Negative Negative N Creatinine, Urine [id number] 00:29:00* Test Item Value Reference Range Interpretation Comments Creatinine, Urine Rm (test code = CREURRM) 124.7 mg/dL 10.0-300.0 N POC Glucose, [id number] 20:51:00* Test Item Value Reference Range Interpretation Comments POC Glucose (test code = POCGLUC) 115 mg/dL 70-115 N Notify RN or MDIf you consider your patient critically ill, the Maxime Accu-Chek InformII metershould not be used for Glucose determinations.Draw a venous Glucose and send to the Main Lab for Analysis. POC Glucose, [id number] 17:44:00* Test Item Value Reference Range Interpretation Comments POC Glucose (test code = POCGLUC) 77 mg/dL 70-115 N Notify RN or MDIf you consider your patient critically ill, the Maxime Accu-Chek InformII metershould not be used for Glucose determinations.Draw a venous Glucose and send to the Main Lab for Analysis. [id number]& PELVIS W/O [id number] 14:08:38CT ABDOMEN AND PELVIS WITHOUT CONTRAST.CLINICAL HISTORY: Abdominal hernia and cholecystectomy. R/o acutepathology COMPARISON: None TECHNIQUE: Noncontrast images of the abdomen and pelvis were obtainedfrom the diaphragm to the pelvic floor. Coronal and sagittal reformatswere obtained. Oral contrast was not provided. One or more of thefollowing dose reduction techniques were used: Automated exposurecontrol, adjustment of the mA and/or kV according to patient size,and/or utilization of iterative reconstruction technique. FINDINGS:Mild atelectasis is seen in the lung bases. No pleural effusion ispresent. The heart size is normal.Evaluation of the abdominal viscera is limited by the lack ofintravenous contrast. The unenhanced liver is unremarkable. Thegallbladder is surgically absent. No intra or extrahepatic biliaryductal dilatation is seen. The spleen is normal in size. The pancreasand adrenal glands are normal. There is no hydronephrosis ornephrolithiasis identified.A small umbilical hernia is noted. Intra-abdominal fat and small bowelloops protrude through the diastatic rectus abdominous m uscles at thelevel of the umbilicus. Soft tissue fat stranding in the hernia sa csuggests inflammation or possible fat strangulation. There is nodilatation of the bowel loops to suggest a bowel obstruction. Theappendix is normal. A moder ate amount of stool is seen in the colon andrectum.There is moderate thickening of the urinary bladder wall. A smallamount of gas is seen in the bladder. The uterus and adnexa areunremarkable. No free air or free fluid is present.The abd ominal aorta is normal in caliber. The bones are intact. Bonysclerosis is seen at the sacroiliac joints.IMPRESSION: 1. Small umbilical hernia. The hernia sh ows internal fat strandingsuggesting inflammation or fat strangulation. Correla te forreducibility. There is no evidence of bowel obstruction.2. Circumferenti al thickening of the urinary bladder wall. A smallamount of intravesical gas is also seen. Correlate with urinalysis toexclude urinary tract infection.Locatio n: R16POC Glucose, [id number] 11:33:00* Test Item Value Reference Range Interpretation Comments POC Glucose (test code = POCGLUC) 112 mg/dL 70-115 N Notify RN or MDIf you consider your patient critically ill, the Maxime Accu-Chek InformII metershould not be used for Glucose determinations.Draw a venous Glucose and send to the Main Lab for Analysis. Prothrombin [id number] 08:15:00* Test Item Value Reference Range Interpretation Comments PT (test code = PT) 10.60 seconds 9.78-13.35 N INR (test code = INR) 0.94 Ratio 0.6-1.2 N Partial Thromboplastin [id number] 08:15:00* Test Item Value Reference Range Interpretation Comments aPTT (test code = PTT) 33.50 seconds 24.39-37.25 N Urinalysis [id number] 05:24:00* Test Item Value Reference Range Interpretation Comments Color (test code = COLOR) Straw Yellow,Straw,Pl yellow N Clarity (test code = CLAR) Sl Cloudy Clear A Specific Eure (test code = SPGR) 1.016 1.001-1.035 N pH (test code = PH) 6.5 5.0-9.0 N Ketone (test code = KET) Negative mg/dL Negative N Glucose (test code = GLUCUR) 100 mg/dL Negative A Protein (test code = PROT) 500 mg/dL Negative A Bilirubin (test code = BILI) Negative mg/dL Negative N Occult Blood (test code = UDOB) Trace Negative A Urobilinogen (test code = UROB) 0.2 mg/dL 0.2-1.0 N Nitrite (test code = NIT) Negative Negative N Leuk Esterase (test code = LEUK) Negative Negative N Micros Exam (test code = MEXAM) Indicated Epithelial Cells (test code = EPI) 3-5 /LPF 0-30 A WBC, Urine (test code = UWBC) None seen /HPF 0-5 A RBC, Urine (test code = URBC) None Seen /HPF 0-5 A Amorph Deposit (test code = AMORD) Few /HPF Bacteria (test code = BACT) Few /HPF Antibody Screen - [id number] 05:09:00* Test Item Value Reference Range Interpretation Comments Antibody Screen (test code = ABSCR) Negative Occult [id number] 05:05:00* Test Item Value Reference Range Interpretation Comments Occ Bld (test code = HSOB) Positive Negative A R EAD BACK LAB VALUESCALLED TO Vikki SINGH, RN @8449 ON 12/21/2016FS BHCG, Serum, [id number] 05:02:00* Test Item Value Reference Range Interpretation Comments Preg Qual [Se] (test code = BSHCG) Negative Negative N Comprehensive Metabolic [id number] 05:01:00* Test Item Value Reference Range Interpretation Comments Sodium (test code = NA) 136 mmol/L 135-145 N Potassium (test code = K) 4.1 mmol/L 3.5-5.1 N Chloride (test code = CL) 103 mmol/L 98-105 N Carbon Dioxide (test code = CO2) 20 mmol/L 22-29 L Glucose (test code = GLU) 167 mg/dL 70-115 H Blood Urea Nitrogen (test code = BUN) 39 mg/dL 6-20 H Creatinine (test code = CREAT) 3.9 mg/dL 0.5-0.9 H Calcium (test code = CA) 8.0 mg/dL 8.3-10.5 L Prot Total (test code = TP) 5.6 g/dL 6.4-8.3 L Albumin (test code = ALB) 2.9 g/dL 3.5-5.2 L A/G Ratio (test code = AGRATIO) 1.1 Ratio Globulin (test code = GLOB) 2.7 2.9-3.1 L Bili Total (test code = TBIL) <0.1 mg/dL 0.1-0.9 L Alk Phos (test code = APHOS) 71 U/L 35-104 N AST (test code = AST) 10 U/L 1-32 N ALT (test code = ALT) 6 U/L 1-33 N BUN/Creatinine Ratio (test code = BCRATIO) 10.0 Anion Gap (test code = AGAP) 13 mmol/L 7-16 N Estimated GFR (test code = GFR) 16 mL/min/1.73m2 eGFR (estimated Glomerular Filtration Rate) is an estimated value,calculated from the patient's serum creatinine using the MDRD equation.It is NOT the patient's actual GFR. The eGFR provides a more clinicallyuseful measure of kidney disease than serum creatinine alone.This calculation takes sex and race into account, if the informationis provided. If the race is not provided, and the patient isAfrican-French, multiply by 1.212. If sex is not provided, and thepatient is female, multiply by 0.742. Results for patients <18 years ofage have not been validated by the MDRD study and should be interpretedwith caution.eGFR Result Interpretation:eGFR > or = 60 is in the Normal RangeeGFR < 60 may mean kidney diseaseeGFR < 15 may mean kidney failureRanges recommended by the National Kidney Found ation,http://nkdep.nih.gov [id number] 04:58:00* Test Item Value Reference Range Interpretation Comments Lipase (test code = LIP) 19 U/L 13-60 N Blood Type and [id number] 04:56:00* Test Item Value Reference Range Interpretation Comments ABO type (test code = ABO) A Rh Type (test code = RH) Positive CBC with [id number] 04:48:00* Test Item Value Reference Range Interpretation Comments WBC (test code = WBC) 8.7 K/cumm 4.4-10.5 N RBC (test code = RBC) 3.53 M/cumm 3.75-5.20 L Hemoglobin (test code = HGB) 10.1 gm/dL 12.2-14.8 L Hematocrit (test code = HCT) 31.0 % 36.5-44.4 L MCV (test code = MCV) 87.7 fL 80-100 N MCH (test code = MCH) 28.7 pg 27.0-32.5 N MCHC (test code = MCHC) 32.7 g/dL 32.0-37.5 N RDW (test code = RDW) 14.9 % 11.5-14.5 H Platelet Count (test code = PLTCT) 362 K/cumm 140-440 N MPV (test code = MPV) 7.5 fL Diff Method (test code = DIFFM) Auto Neutrophil (test code = NEUT) 60.2 % 36-70 N Lymphocyte (test code = LYMPH) 29.9 % 12-44 N Monocyte (test code = MONO) 6.2 % 0-11 N Eosinophil (test code = EOS) 3.3 % 0-7 N Basophil (test code = BASO) 0.2 % 0-2 N Neutro Abs (test code = ANEUT) 5.2 K/cumm 1.6-7.4 N Lymph Abs (test code = ALYMPH) 2.6 K/cumm 0.5-4.6 N Holt Abs (test code = AMONO) 0.5 K/cumm 0.0-1.2 N Eos Abs (test code = AEOS) 0.29 K/cumm 0.00-0.74 N Baso Abs (test code = ABASO) 0.0 K/cumm 0.00-0.21 N POC Glucose, [id number] 04:35:00* Test Item Value Reference Range Interpretation Comments POC Glucose (test code = POCGLUC) 161 mg/dL 70-115 H If you consider your patient critically ill, the Maxime Accu-Chek InformII metershould not be used for Glucose determinations.Draw a venous Glucose and send to the Main Lab for Analysis. POC Glucose, [id number] 15:19:00* Test Item Value Reference Range Interpretation Comments POC Glucose (test code = POCGLUC) 112 mg/dL 70-115 N If you consider your patient critically ill, the Maxime Accu-Chek InformII metershould not be used for Glucose determinations.Draw a venous Glucose and send to the Main Lab for Analysis.
--- OUTSIDE RECORDS SUMMARY | 2019-09-10 20:16 | XMS REPORT | Summary of Care ---
Author Author GISELA S[facility] N[facility] Organization Unknown Address [facility] Phone Unavailable Care Team Providers Care Jewel Hole Finish Opener Name Role Phone RONEY AMADOR M.D. Unavailable Unavailable RONEY AMADOR MD Unavailable Unavailable Functional Status Name Dates Details Functional status health issues are not documented Status: Name Dates Details Cognitive status health issues are not d ocumented Status: Problems Name Dates Details Acute foot pain, right (729.5, M79.671) Status: Active Charcot's arthropathy, diabetic (250.60, E11.610) Status: Active Abscess of foot (682.7, L02.619) Status: Active Acute osteomyelitis of right calcaneus ( 730.07, M86.171) Status: Active History of right below knee amputation ( V49.75, Z89.511) Status: Active End stage renal disease (585.6, N18.6) Status: Active Medications Name Dates Details amLODIPine Besylate TABS Active hydrALAZINE HCl TABS * Refills: 0 Active Allergies and Adverse Reactions Name Dates Details Morphine Derivatives (Allergy) Status: A ctive ondansetron (Allergy) Status: Active Tylenol TABS (Allergy) Status: Active Past Medical History Name Dates Details History of anemia (V12.3, Z86.2) Status: Resolved History of hypertension (V12.59, Z86.79) Status: Resolved Procedures Procedure Dates Details Procedures not documented Immunization Name Dates Details Immunizations not documented Social History Name Dates Details Unknown if ever smoked Vital Signs Date Test Result Details No Known Vitals to report Results Date Description Value Details Results not documented Plan of Care Name Dates Details Planned Observations Planned Goals not documented Planned Encounters Appointment; RONEY AMADOR M.D. On: 20-Sep-2018 11:00 Interventions Provided Instructions* Patient Specific Education Given; Done: 20 Sep 2018 Plan* I evaluated Ms. Hernandez today for Instructions Name Dates Details Instructions not documented Encounters Appointment; TOÑO LARRY Encounter Diagnosis: Problem not documented On: 07-Nov-2016 11:30 Appointment; LINDSAY DOMINGUEZ M.D. Encounter Diagnosis: Problem not documented On: 22-Dec-2016 13:00 Appointment; LES OH M.D. Encounter Diagnosis: Problem not documented On: 14-Mar-2017 10:30 Appointment; LINDSAY DOMINGUEZ M.D. Encounter Diagnosis: Problem not documented On: 23-Mar-2017 14:00 Appointment; RONEY AMADOR M.D. Encounter Diagnosis: Problem not documented On: 20-Sep-2018 11:00
[2019-09-10] MEDS ORDERED: SODIUM CHLORIDE 0.9% 1000ML 1,000 ML ONE (21:06)
[2019-09-11] VITALS (9 sets, daily range): BP systolic 131–180; BP diastolic 84–114
--- NOTE | 2019-09-11 01:54 | NUR ---
PATIENT REFUSES COVID-19 TEST AT THIS TIME, STATES SHE WAS ADMITTED TO [facility] LAST WEEK AND WAS TESTED THEN AND WAS NEGATIVE SO SHE IS REFUSING ANY ADDITIONAL TESTING
--- NOTE | 2019-09-11 02:13 | NUR ---
COVID-19 SWAB OBTAINED AT THIS TIME BY Vikki CALIX RN.
--- NOTE | 2019-09-11 03:07 | NUR ---
SPOKE TO MD Kedar SEPULVEDA REGARDING B/P AND PAIN. NEW ORDERS RECEIVED. Addendum: 09/11/19 at 0353 by Tracy Garcia RN PLEASE INCLUDE ASYMPTOMATIC
[2019-09-11] MEDS ORDERED: LISINOPRIL 10 MG TAB PO ONE (03:30)
[2019-09-11] MEDS ORDERED: IBUPROFEN 400 MG TAB PO PRN (03:30)
[2019-09-11] MEDS ORDERED: PHOSPHATE BINDER (04:29)
[2019-09-11] MEDS ORDERED: GABAPENTIN300 MG PO (04:29)
[2019-09-11] MEDS ORDERED: [UNRECOGNIZED DRUG - OTHER] (04:29)
[2019-09-11] MEDS ORDERED: LASIX20 MG PO (04:29)
[2019-09-11] MEDS ORDERED: HYDRALAZINE HCL25 MG PO (04:29)
--- NOTE | 2019-09-11 06:47 | NUR ---
RECEIVED BEDSIDE SHIFT REPORT FROM OFF GOING NURSE. PATIENT IS RESTING IN BED, NO S/S OF DISTRESS NOTED. DENIES PAIN OR DISCOMFORT AT THIS TIME. CALL LIGHT WITHIN REACH. BED IN THE LOWEST POSITION. BED ALARM ON.
--- NOTE | 2019-09-11 07:14 | NUR ---
REPORT GIVEN TO DAYSMDFT NURSE. AAOX3. RESTING IN BED. NO SIGNS OF IV INFILTRATION. BED LOCKED AND IN LOW POSITION. CALL LIGHT WITHIN REACH. BED ALARM ACTIVATED.
[2019-09-11] MEDS: HYDRALAZINE HCL 25 MG TAB PO SCH ×2 (08:10→15:00)
[2019-09-11] MEDS: LISINOPRIL 10 MG TAB PO SCH ×2 (08:10→16:31)
--- NOTE | 2019-09-11 10:48 | NUR ---
Pt. expressed no spiritual or emotional concerns at this time. Pole Framer provided hospitality and information on how to reach electric razor assembler, if needed. No need to follow at this time. CARYN WHYTE Pole Framer Spiritual Care Department O: [phone]
--- NOTE | 2019-09-11 13:30 | NUR ---
DIALYSIS STARTED AT THIS TIME.
--- NOTE | 2019-09-11 16:59 | NUR ---
Nutrition Screen Note RD Recommendation for Physician: -Continue renal diet -Encourage PO intake The patient meets criteria for MODERATE protein-calorie malnutrition. Plan of Care: RD following, monitoring for tolerance and adequacy Nutrition reason for involvement: Diagnosis - ESRD Primary Diagnose(s): ESRD, hypertensive urgency PMH: no H/P in meditech Ht: 67 in Wt:233 lb BMI: 36.5 kg/m2 IBW:[address] Assessment: (09/11/19) Chart reviewed. Labs and meds reviewed. Pt is a 43 year old female admitted with ESRD and hypertensive urgency. Pt reports she has mainly been consuming crackers for the past 4 months. It is recorded that pt consumed 25-50% of meals today. Pt also reported an unintentional weight loss within the past 7 months. Pt mentioned she weighed 260 lbs 7 months ago. Pt currently has a weight of 233 lbs in chart. This would be a 10% weight loss which is considered significant weight loss. No N/V/D/C or chewing/swallowing issues. Offered pt Nepro nutrition supplement for added nutrition due to poor reported intake and unintentional weight loss, but pt declined. Will continue to monitor unless consulted sooner. Current Diet: renal Malnutrition Evaluation (09/11/19) The patient meets criteria for MODERATE protein-calorie malnutrition. Energy intake: <75% of estimated energy requirements for >1 month Weight loss: 10% in ~ 6 months (Chronic) Fat loss: no loss identified per observation Muscle loss: no loss identified per observation Supporting Evidence: Fluid accumulation: unable to evaluate Functional Status: unable to evaluate Diet Education Needs Assessment: RD provided pt with renal diet education materials. Pt was not interested in verbal education and stated she will read provided materials. Encouraged pt to contact RD if she has questions. Nutrition Care Level: high Signed: Mellissa Samson, RD, LD
--- NOTE | 2019-09-11 17:10 | NUR ---
HD FINISHED AT THIS TIME, 2L REMOVED.
--- NOTE | 2019-09-11 17:55 | NUR ---
RECEIVED DC ORDER FROM DR. Darien SEPULVEDA, PATIENT IS IN STABLE CONDITION. IV LINE TO LEFT EJ DISCONTINUED WITH TIP INTACT, PRESSURE APPLIED TO SITE, NO BLEEDING NOTED. DISCHARGE FOLDER WITH PAPERWORK AND PRESCRIPTIONS ON HAND. ALL PERSONAL ITEMS ON HAND. PATIENT ACCOMPANIED TO PRIVATE AUTO VIA WHEELCHAIR BY STAFF.
== END 2019-09-11 18:01 | disposition home or self-care (01) ==
LOC: ER 15:39 → ERHOLD 19:49 → MED/SURG3 09-11 02:40
DX: I12.0 Hypertensive chronic kidney disease with stage 5 chronic kidney disease or end stage renal disease (principal); W01.10XA Fall on same level from slipping, tripping and stumbling with subsequent striking against unspecified object, initial encounter; N18.6 End stage renal disease; Z99.2 Dependence on renal dialysis; E87.5 Hyperkalemia; M25.562 Pain in left knee; S80.02XA Contusion of left knee, initial encounter
CPT/HCPCS: 36415 ×2; 71045; 73562; 73590; 73610; 80053; 80307; 81001; 82550; 82553; 84132; 84484; 85025; 85610; 85730; 86704; 86706; 87086; 87340; 87635; 90970 ×2; 93005; 99284; G0378 ×2; J0360; J0610; J1885; J7030; J7799